=== PATIENT | male | born 1955 | race Caucasian/White ===

== ENCOUNTER → 2024-02-03 | Emergency (ER) | payer OTHER ==
[~2024-02-03] MED LIST: ACETAMINOPHEN 500 MG TAB ONE; KETOROLAC 30 MG/ML INJ ONE; methocarbamoL 500 MG TAB ONE
--- NOTE | 2024-02-03 08:35 | RAD REPORT ---
EXAM DESCRIPTION: RAD - Pelvis - 02/03/2024 8:27 am CLINICAL HISTORY: PAIN COMPARISON: No comparisons FINDINGS: Moderate osteoarthritis affects both hips, slightly greater on the right. No fracture, dis location or AVN pattern observed.
--- NOTE | 2024-02-03 08:41 | ER ---
Nurse's Notes [facility] Name: Edwin Linton Age: 69 yrs Sex: Male : 1955 Arrival Date: 02/03/2024 Time: 07:17 Bed 14 Private MD: Diagnosis: Buttock Pain Presentation: 02/02 07:20 Chief complaint: EMS states: patient is a transient from [place], is complaining of ko1 back pain which is causing him to not be able to walk, PD found him sitting in a ditch unable to get up so they called EMS. He had a "snake bite" to the right side of his back about 4 weeks ago and is having occasional pain from that also. He saw the snake in the grass and assumed that was what bit him. He also had a stroke in 2013 which caused a left sided deficit. Coronavirus screen: At this time, the client does not indicate any symptoms associated with coronavirus-19. Ebola Screen: No symptoms or risks identified at this time. Initial Sepsis Screen: Does the patient meet any 2 criteria? No. Patient's initial sepsis screen is negative. Does the patient have a suspected source of infection? No. Patient's initial sepsis screen is negative. Risk Assessment: Do you want to hurt yourself or someone else? Patient reports no desire to harm self or others. Onset of symptoms is unknown. Care prior to arrival: IV initiated. 18 GA, in the left antecubital area, Glucose check: 93. 07:20 Method Of Arrival: EMS: [facility] ko1 07:20 Acuity: ROLAND 3 ko1 07:30 Note homeless. ko1 Triage Assessment: 07:30 General: Appears in no apparent distress. uncomfortable, obese, unkempt, Behavior is ko1 calm, cooperative, appropriate for age. Pain: Complains of pain in right low back. Historical: - Allergies: 07:30 No Known Allergies; ko1 - Home Meds: 07:30 Unable to obtain [Active]; ko1 - PMHx: 07:30 Cerebrovascular accident; ko1 - Immunization history:: Adult Immunizations unknown. - Social history:: Smoking status: Patient/guardian denies using tobacco, but has a distant history of tobacco abuse. Screenin:30 [facility] ED Fall Risk Assessment (Adult) History of falling in the last 3 months, ko1 including since admission Yes- single mechanical fall (1 pt) Confusion or Disorientation No (0 pts) Intoxicated or Sedated No (0 pts) Impaired Gait Yes (1 pt) Mobility Assist Device Used Yes (1 pt) Altered Elimination No (0 pt) Score/Fall Risk Level 3 or more points = High Risk Oriented to surroundings, Maintained a safe environment, Educated pt \\T\\ family on fall prevention, incl call for assistance when getting out of bed, Assessed \\T\\ reinforced patient's understanding of fall precautions, Provided non-skid footwear, Hourly rounding (assess needs \\T\\ fall precautionary measures) done, Used ambulatory aids as needed (educated on \\T\\ assisted with), Used gait belt as appropriate Implemented a Fall Risk Plan of Care, Apply high fall risk patient identification: yellow non skid footwear/ fall signage, Remained w/in arm's length of patient and in sight while toileting, Offered frequent toileting (1:1 observation), Remained with patient while ambulating, Utilized family, sitter, or virtual sander machine as indicated. Abuse screen: Denies threats or abuse. Denies injuries from another. Nutritional screening: No deficits noted. Tuberculosis screening: No symptoms or risk factors identified. Assessment: 07:30 Neuro: CVA in 2013 leaving left sided weakness. Cardiovascular: No deficits noted. ko1 Respiratory: No deficits noted. GI: No deficits noted. : No deficits noted. EENT: No deficits noted. Derm: Reports pain that is 4 out of 10 on a pain scale. Musculoskeletal: Range of motion: limited in left side. 09:34 Reassessment: discharge delayed due to patient not cooperating with getting dressed and ko1 into the wheelchair. Vital Signs: 07:20 BP 110 / 62; Pulse 78; Resp 15; Temp 98; Pulse Ox 95% ; ko1 07:30 BP 118 / 74; Pulse 70; Resp 14; Pulse Ox 95% ; ko1 08:30 BP 124 / 70; Pulse 75; Resp 14; Pulse Ox 98% ; ko1 09:30 BP 112 / 68; Pulse 68; Resp 15; Pulse Ox 95% on R/A; ko1 ED Course: 07:20 Patient arrived in ED. ko1 07:22 Robert Yost MD is Attending Physician. ec2 07:26 Patient has correct armband on for positive identification. Placed in gown. Bed in low [id number] position. Call light in reach. Warm blanket given. Pillow given. Client placed on continuous cardiac and pulse oximetry monitoring. NIBP monitoring applied. Pulse ox on. 07:30 Triage completed. ko1 07:30 Arm band placed on right wrist. Patient placed in an exam room, on a stretcher, on ko1 school lunch monitor, on pulse oximetry, Patient notified of wait time. 07:30 Provided Education on: na. ko1 07:30 No provider procedures requiring assistance completed. Maintain EMS IV. Dressing ko1 intact. Good blood return noted. Site clean \\T\\ dry. Gauge \\T\\ site: 18g left AC. 07:34 Geovanna Martins, RN is Primary Nurse. ko1 08:28 Pelvis XRAY In Process Unspecified. EDMS 09:00 IV discontinued, intact, bleeding controlled, No redness/swelling at site. Pressure ko1 dressing applied. Administered Medications: 07:49 Drug: Ketorolac IVP 15 mg IVP once Route: IVP; Site: left antecubital; ko1 09:34 Follow up: Response: No adverse reaction ko1 07:49 Drug: Acetaminophen PO 1000 mg PO once Route: PO; ko1 09:34 Follow up: Response: No adverse reaction ko1 07:49 Drug: Methocarbamol PO 500 mg PO once Route: PO; ko1 09:34 Follow up: Response: No adverse reaction ko1 Medication: 07:30 VIS not applicable for this client. ko1 Outcome: 08:41 Discharge ordered by . ec2 09:32 Discharged to home via wheelchair, ko1 09:32 Condition: stable 09:32 Discharge instructions given to patient, Instructed on discharge instructions, follow up and referral plans. Demonstrated understanding of instructions, follow-up care, medications, Prescriptions given X 1, 09:35 Patient left the ED. ko1 Signatures: Dispatcher [employer] Geovanna Velasquez, SIXTO RN ko1 Robert Yost MD MD ec2 Gonzalez, Jordan [id number]
--- NOTE | 2024-02-03 08:41 | EDPHYS ---
Physician Documentation [facility] Name: Edwin Linton Age: 69 yrs Sex: Male : 1955 Arrival Date: 02/03/2024 Time: 07:17 Bed 14 Private MD: ED Physician Robert Yost HPI: 02/02 07:31 This 69 yrs old Male presents to ER via EMS with complaints of R buttock pain.ec2 07:31 Patient arrives today for evaluation of right buttock and back pain. Patient reports ec2 that he been having pain for approximately 1 month. Denies any new falls or injuries or trauma. States that he has pain with ambulation. States that the pain sometimes goes into the right leg. States that he is concerned about a snake bite that occurred 4 weeks ago, states he never saw puncture wound, never noticed any redness or skin changes. Denies any other concerns.. Historical: - Allergies: 07:30 No Known Allergies; ko1 - Home Meds: 07:30 Unable to obtain [Active]; ko1 - PMHx: 07:30 Cerebrovascular accident; ko1 - Immunization history:: Adult Immunizations unknown. - Social history:: Smoking status: Patient/guardian denies using tobacco, but has a distant history of tobacco abuse. ROS: 07:31 Constitutional: as per hpi ec2 Exam: 07:31 Constitutional: GEN: NAD Head: atraumatic Eyes: EOMI Ears: External ears are ec2 normal. CV: regular rate LUNGS: no respiratory distress ABD: non-distended SKIN: no evidence of rashes MSK: no evidence of trauma, right buttock TTP, no deformity, no crepitus, no erythema, no warmth, no discharge, no abscess, no fluctuance appreciated. NEURO: moves all extremities equally Vital Signs: 07:20 BP 110 / 62; Pulse 78; Resp 15; Temp 98; Pulse Ox 95% ; ko1 07:30 BP 118 / 74; Pulse 70; Resp 14; Pulse Ox 95% ; ko1 08:30 BP 124 / 70; Pulse 75; Resp 14; Pulse Ox 98% ; ko1 09:30 BP 112 / 68; Pulse 68; Resp 15; Pulse Ox 95% on R/A; ko1 MDM: 07:23 Patient medically screened. ec2 07:31 Data reviewed: vital signs. ED course: Patient arrives today for evaluation of right ec2 buttock pain. Admission remarkable for well-appearing nontoxic in which was otherwise in no acute distress with reproducible right buttock TTP with good range of motion of the bilateral lower extremities. Will obtain a pelvis x-ray, give patient Toradol as well as Robaxin for pain medications. Suspect sciatica versus MSK pain, doubt cellulitis, doubt abscess, doubt deep space infection given general well appearance, lack of focal infectious appearance.. 08:40 ED course: Pelvis x-ray shows no acute bony pathology. Ultimately suspect muscle ec2 skeletal pain causing patient symptoms, doubt spinal cord pathology, doubt infectious process given appearance of the skin. Will discharge home with prescription with Robaxin. Return precautions given.. 02/02 07:31 Order name: Pelvis XRAY; Complete Time: 08:40 ec2 Administered Medications: 07:49 Drug: Ketorolac IVP 15 mg IVP once Route: IVP; Site: left antecubital; ko1 09:34 Follow up: Response: No adverse reaction ko1 07:49 Drug: Acetaminophen PO 1000 mg PO once Route: PO; ko1 09:34 Follow up: Response: No adverse reaction ko1 07:49 Drug: Methocarbamol PO 500 mg PO once Route: PO; ko1 09:34 Follow up: Response: No adverse reaction ko1 Disposition Summary: 02/03/24 08:41 Discharge Ordered Notes: Location: Home ec2 Condition: Stable ec2 Diagnosis - Buttock Pain ec2 Followup: ec2 - With: Private Physician - When: - Reason: Re-evaluation by your physician Discharge Instructions: - Discharge Summary Sheet ec2 - Chronic Back Pain ec2 Forms: - Medication Reconciliation Form ec2 - Thank You Letter ec2 - Antibiotic Education ec2 - Prescription Opioid Use ec2 - Patient Portal Instructions ec2 - Leadership Thank You Letter ec2 Prescriptions: - methocarbamol 500 mg Oral tablet - take 2 tablets ORAL route 4 times per day; 30 tablet; Refills: 0, Product ec2 Selection Permitted Signatures: Dispatcher [employer] Geovanna Velasquez RN RN ko1 Robert Yost MD MD ec2 Corrections: (The following items were deleted from the chart) 09:09 09:08 Wound Repair of 5cm ( 2.0in ) subcutaneous laceration to face. Distal ec2 neuro/vascular/tendon intact. Anesthesia: Topical anesthetic administered with 1% lidocaine. Wound prep: Moderate cleansing. Skin closed with 5-0 absorbale using simple sutures and sterile technique. Dressed with non-adherent dressing. Patient tolerated well. ec2
[2024-02-03 09:59] VITALS: BP 112/68; TEMP 98; O2SAT 95
== END ==
LOC: ER 07:17
DX: M79.18 Myalgia, other site (principal); M54.50 Low back pain, unspecified; Z86.73 Personal history of transient ischemic attack (TIA), and cerebral infarction without residual deficits
CPT/HCPCS: 72170

== ENCOUNTER 2024-02-19 18:43 | Inpatient (IN) | payer OTHER ==
--- OUTSIDE RECORDS SUMMARY | 2024-02-19 18:51 | XMS REPORT | Continuity of Care Document ---
Author Name Unknown Address [address] [facility] [address] [place] [id number] [facility] thconnect Address [address] [facility] 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 Name Role Phone RAKESH SHORE Primary Care Physician Unavailab DAVID Velásquez Attending Clinician Unavailable David White DO Attending Clinician [phone] TARA IRELAND Attending Clinician Unavailable Tara Ireland MD Attending Clinician [phone] DESTINY MULLER Attending Clinician Unavailable ZO GREEN Attending Clinician Unavailab Zo Rizzo DO Attending Clinician + [phone] SILAS GREENE Attending Clinician Unavailable SILAS GREENE Attending Clinician Unavailable JACKIE DIAZ Attending Clinician Unavailab Jackie Moore DO Attending Clinician [phone] Lorene Stein Attending Clinician [phone] Tl Hayes MD Attending Clinician [phone] TL HAYES Attending Clinician Unavailable Georgina Garcia RN Attending Clinician Unava ilable Doctor Unassigned, [place] Attending Clinician U navailable Provider, [facility] Attending Clinician Un available Lesli Kasper Attending Clinician [phone] Pob, 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 Attending Clinician UnavailNIMISHA Haywood Attending Clinician Unavail able KUNAL JOEL Attending Clinician Unavailable Darrell Maxwell MD Attending Clinician [phone] Yossi Siddiqi Attending Clinician [phone] YOSSI PRASAD Attending Clinician Unavailable Idalia ASHLEYDebra Attending Clinician +[phone] IDALIA DEBRA Attending Clinician Unavailable DARRELL BECKFORD Attending Clinician Darrell Haley MD Attending Clinician + [phone] Chelle Fernandez MD Attending Clinician [phone] CHELLE FERNANDEZ Attending Clinician Unavailable Markus OSPINA, Natividad iXong Attending Clinician Glo Way MD Attending Clinician [phone] GLO FINN Attending Clinician Unavailable Lokesh OSPINA, Kendall Gaines Attending Clinician [phone] JOCELYN GREER Attending Clinician UnavailDARRELL Khalil III Attending Clinician UnavailMARIAMA Castro Attending Clinician UnavailTARA Luther Admitting Clinician Unavailable DESTINY MULLER Admitting Clinician Unavailable ZO GREEN Admitting Clinician Unavailab CHELLE Montenegro Admitting Clinician Unavailable TL HAYES Admitting Clinician Unavailable Glo Finn MD Admitting Clinician [phone] GLO FINN Admitting Clinician Unavailable Payers Payer Name Policy Type Policy Number Effective Date Expirati on Date Source [employer] MEDICARE OUT OF NETWORK [id number] 2023 00:00:00 [facility] [employer] (MEDICARE REPLACEMENT HMO) [id number] 2022 00:00:00 MEDICARE PART A \\T\\ B [id number] 2018 00:00:00 2019 00:00:00 COMMERCIAL NON-CONTRACT GENERIC [id number] 2018 00:00:00 2019 00:00:00 Problems Condition Name Condition Details Condition Category Status Onset Date Resolution Date Last Treatment Date Treating Clinician Comments Source Omental infarction Omental infarction Disease Active 3-09 00:00: 00 [facility] Psoriasifo rm dermatitis Psoriasifo rm dermatitis Disease Active 8-18 00:00: 00 [facility] Need for 23-polyval ent pneumococc al polysaccha ride vaccine Need for 23-polyval ent pneumococc al polysaccha ride vaccine Disease Active 3-28 00:00: 00 [facility] Cellulitis of foot, left Cellulitis of foot, left Disease Active 5-21 00:00: 00 [facility] Edema of both legs Edema of both legs Disease Active 02-27 00:00: 00 [facility] Erectile dysfunctio n, unspecifie d erectile dysfunctio n type Erectile dysfunctio n, unspecifie d erectile dysfunctio n type Disease Active 02-27 00:00: 00 [facility] Essential hypertensi on Essential hypertensi on Disease Active 02-27 00:00: 00 [facility] Edema of both legs Edema of both legs Disease Active 02-27 00:00: 00 [facility] Erectile dysfunctio n, unspecifie d erectile dysfunctio n type Erectile dysfunctio n, unspecifie d erectile dysfunctio n type Disease Active 02-27 00:00: 00 [facility] Acute midline low back pain without sciatica Acute midline low back pain without sciatica Disease Active 01-18 00:00: 00 [facility] Medicare annual wellness visit, subsequent Medicare annual wellness visit, subsequent Disease Active 12-01 00:00: 00 Overview: Formattin g of this note might be different from the original. Added automatic ally from request for surgery [id number] [facility] Need for hepatitis C screening test Need for hepatitis C screening test Disease Active 2018-11 00:00: 00 [facility] Homelessne ss Homelessne ss Disease Active 2018-11 00:00: 00 [facility] Lesion of matthew Lesion of matthew Disease Active 2018-11 00:00: 00 [facility] Dyslipidem ia Dyslipidem ia Disease Active 2018-11 00:00: 00 [facility] Encounter for screening colonoscop y for non-high-r isk patient Encounter for screening colonoscop y for non-high-r isk patient Disease Active 2018-11 00:00: 00 [facility] 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 Disease Active 2018-11 00:00: 00 [facility] 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) Disease Active 2018-11 00:00: 00 [facility] 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) Disease Active 2018-11 00:00: 00 [facility] Erectile dysfunctio n due to type 2 diabetes mellitus Erectile dysfunctio n due to type 2 diabetes mellitus Disease Active 2018-11 00:00: 00 [facility] Upper respirator y tract infection, unspecifie d type Upper respirator y tract infection, unspecifie d type Disease Active 2018-11 00:00: 00 [facility] Obesity (BMI 30-39.9) Obesity (BMI 30-39.9) Disease Active 03-17 00:00: 00 [facility] Allergies, Adverse Reactions, Alerts Allergy Name Allergy Type Status Severity Reaction(s) Onset Date Inactive Date Treating Clinician Comments Source NO KNOWN ALLERGIE S Drug Class Active [facility] Social History Social Habit Start Date Stop Date Quantity Comments [facility] 2024-02-06 00:00:00 2024-02-06 00:00:00 Current non-drinker of alcohol (finding) [facility] Exposure to SARS-CoV-2 (event) 2021-06-10 00:00:00 2021-07-10 10:13:00 Not sure [facility] History of Social function 2021-07-10 00:00:00 2021-07-10 00:00:00 [facility] Tobacco use and exposure 2019-01-14 00:00:00 2019-01-14 00:00:00 Smokeless tobacco non-user [facility] Sex Assigned At 1955 00:00:00 1955 00:00:00 [facility] Smoking Status Start Date Stop Date Source Never smoked tobacco [facility] Medications Ordered Medication Name Filled Medication Name Start Date Stop Date Current Medication? Ordering Clinician Indication Dosage Frequency Signature (SIG) Comments Components Source meclizine (TRAVEL-EAS E (MECLIZINE) ) tablet 25 mg 02-09 17:15: 00 02-09 17:17 :00 No 25mg 25 mg, Oral, ONCE, 1 dose, On Thu02/10/24 at 1215, RICHARD [facility] ketorolac (TORADOL) injection 15 mg 02-08 20:00: 00 02-08 20:42 :00 No 15mg 15 mg, Intramuscu lar, ONCE, 1 dose, On Thu02/09/24 at 1500, Routine [facility] methocarbam oL (ROBAXIN) tablet 1,000 mg 02-08 19:15: 00 02-08 20:43 :00 No 1000mg 1,000 mg, Oral, ONCE, 1 dose, On Thu02/09/24 at 1415, RICHRAD [facility] cyclobenzap rine (FLEXERIL) tablet 10 mg 02-05 15:30: 00 02-05 15:14 :00 No 10mg 10 mg, Oral, ONCE, 1 dose, On Thu02/06/24 at 1030, Routine [facility] cyclobenzap rine 10 mg tablet 02-05 00:00: 00 02-11 04:59 :00 Yes [id number] 10mg Take 1 tablet by mouth in the morning and 1 tablet at noon and 1 tablet in the evening. Do all this for 15 doses. [facility] cyclobenzap rine 10 mg tablet 02-05 00:00: 00 02-11 04:59 :00 Yes [id number] 10mg Take 1 tablet by mouth in the morning and 1 tablet at noon and 1 tablet in the evening. Do all this for 15 doses. [facility] cyclobenzap rine 10 mg tablet 3-16 00:00: 00 02-11 04:59 :00 Yes [id number] 10mg Take 1 tablet by mouth in the morning and 1 tablet at noon and 1 tablet in the evening. Do all this for 15 doses. [facility] dicyclomine (BENTYL) tablet 20 mg 01-29 20:45: 00 01-29 20:51 :00 No 20mg 20 mg, Oral, ONCE, 1 dose, On 01/30/24 at 1445, RICHARD [facility] methocarbam oL (ROBAXIN) tablet 1,000 mg 01-29 19:15: 00 01-29 19:06 :00 No 1000mg 1,000 mg, Oral, ONCE, 1 dose, On 01/30/24 at 1315, RICHARD [facility] ketorolac (TORADOL) tablet 10 mg 01-29 17:45: 00 01-29 17:01 :00 No 10mg 10 mg, Oral, ONCE, 1 dose, On 01/30/24 at 1145, Routine [facility] tiZANidine 4 mg tablet 01-29 00:00: 00 Yes [id number] 4mg Take 1 tablet by mouth every 6 (six) hours as needed for Pain (scale 7-10). [facility] dicyclomine 20 mg tablet 01-29 00:00: 00 Yes [id number] 20mg Take 1 tablet by mouth 4 (four) times daily as needed for Abdominal pain. [facility] tiZANidine 4 mg tablet 01-29 00:00: 00 Yes [id number] 4mg Take 1 tablet by mouth every 6 (six) hours as needed for Pain (scale 7-10). [facility] dicyclomine 20 mg tablet 01-29 00:00: 00 Yes [id number] 20mg Take 1 tablet by mouth 4 (four) times daily as needed for Abdominal pain. [facility] tiZANidine 4 mg tablet 01-29 00:00: 00 Yes [id number] 4mg Take 1 tablet by mouth every 6 (six) hours as needed for Pain (scale 7-10). [facility] dicyclomine 20 mg tablet 01-29 00:00: 00 Yes [id number] 20mg Take 1 tablet by mouth 4 (four) times daily as needed for Abdominal pain. [facility] tiZANidine 4 mg tablet 01-29 00:00: 00 Yes [id number] 4mg Take 1 tablet by mouth every 6 (six) hours as needed for Pain (scale 7-10). [facility] dicyclomine 20 mg tablet 01-29 00:00: 00 Yes [id number] 20mg Take 1 tablet by mouth 4 (four) times daily as needed for Abdominal pain. [facility] ibuprofen (IBU) tablet 600 mg 01-15 03:30: 00 01-15 03:42 :00 No 600mg 600 mg, Oral, ONCE, 1 dose, On [facility] 01/14/24 at 2130, RICHARD [facility] methocarbam oL (ROBAXIN) tablet 750 mg 01-15 03:26: 00 01-15 03:42 :00 No 750mg 750 mg, Oral, ONCE NOW, 1 dose, On Sheree 01/14/24 at 2130, RICHARD [facility] LISINOPRIL- HYDROCHLORO THIAZIDE 10-12.5 mg per tablet 0 02-17 00:00: 00 Yes [id number] Take 1 tablet by mouth once daily [facility] LISINOPRIL- HYDROCHLORO THIAZIDE 10-12.5 mg per tablet 0 02-17 00:00: 00 Yes [id number] Take 1 tablet by mouth once daily [facility] LISINOPRIL- HYDROCHLORO THIAZIDE 10-12.5 mg per tablet 0 02-17 00:00: 00 Yes [id number] Take 1 tablet by mouth once daily [facility] LISINOPRIL- HYDROCHLORO THIAZIDE 10-12.5 mg per tablet 0 02-17 00:00: 00 Yes [id number] Take 1 tablet by mouth once daily [facility] LISINOPRIL- HYDROCHLORO THIAZIDE 10-12.5 mg per tablet 02-17 00:00: 00 Yes [id number] Take 1 tablet by mouth once daily [facility] LISINOPRIL- HYDROCHLORO THIAZIDE 10-12.5 mg per tablet 02-17 00:00: 00 Yes [id number] Take 1 tablet by mouth once daily [facility] LISINOPRIL- HYDROCHLORO THIAZIDE 10-12.5 mg per tablet 02-17 00:00: 00 Yes [id number] Take 1 tablet by mouth once daily [facility] LISINOPRIL- HYDROCHLORO THIAZIDE 10-12.5 mg per tablet 02-17 00:00: 00 Yes [id number] Take 1 tablet by mouth once daily [facility] blood sugar diagnostic (TRUE METRIX GLUCOSE TEST STRIP) strip 2020-11 00:00: 00 Yes [id number] Monitor Blood Glucose daily [facility] simvastatin 40 mg tablet 2020-11 00:00: 00 Yes [id number] 40mg Take 1 tablet by mouth at bedtime. [facility] furosemide 20 mg tablet 2020-11 00:00: 00 Yes [id number] 20mg Take 1 tablet by mouth daily. [facility] lancets (TRUEPLUS LANCETS) 33 gauge Misc 2020-11 00:00: 00 Yes [id number] Monitor Blood Glucose daily [facility] Alcohol Swabs (BD SINGLE USE SWABS REGULAR) PadM 2020-11 00:00: 00 Yes [id number] Apply to area(s) daily. Monitor Blood Glucose daily [facility] blood sugar diagnostic (TRUE METRIX GLUCOSE TEST STRIP) strip 2020-11 00:00: 00 Yes [id number] Monitor Blood Glucose daily [facility] simvastatin 40 mg tablet 2020-11 00:00: 00 Yes [id number] 40mg Take 1 tablet by mouth at bedtime. [facility] furosemide 20 mg tablet 2020-11 00:00: 00 Yes [id number] 20mg Take 1 tablet by mouth daily. [facility] lancets (TRUEPLUS LANCETS) 33 gauge [facility] 2020-11 00:00: 00 Yes [id number] Monitor Blood Glucose daily [facility] Alcohol Swabs (BD SINGLE USE SWABS REGULAR) Pad 2020-11 00:00: 00 Yes [id number] Apply to area(s) daily. Monitor Blood Glucose daily [facility] blood sugar diagnostic (TRUE METRIX GLUCOSE TEST STRIP) strip 2020-11 00:00: 00 Yes [id number] Monitor Blood Glucose daily [facility] simvastatin 40 mg tablet 2020-11 00:00: 00 Yes [id number] 40mg Take 1 tablet by mouth at bedtime. [facility] furosemide 20 mg tablet 2020-11 00:00: 00 Yes [id number] 20mg Take 1 tablet by mouth daily. [facility] lancets (TRUEPLUS LANCETS) 33 gauge [facility] 2020-11 00:00: 00 Yes [id number] Monitor Blood Glucose daily [facility] Alcohol Swabs (BD SINGLE USE SWABS REGULAR) Pad 2020-11 00:00: 00 Yes [id number] Apply to area(s) daily. Monitor Blood Glucose daily [facility] blood sugar diagnostic (TRUE METRIX GLUCOSE TEST STRIP) strip 2020-11 00:00: 00 Yes [id number] Monitor Blood Glucose daily [facility] simvastatin 40 mg tablet 2020-11 00:00: 00 Yes [id number] 40mg Take 1 tablet by mouth at bedtime. [facility] furosemide 20 mg tablet 2020-11 00:00: 00 Yes [id number] 20mg Take 1 tablet by mouth daily. [facility] lancets (TRUEPLUS LANCETS) 33 gauge [facility] 2020-11 00:00: 00 Yes [id number] Monitor Blood Glucose daily [facility] Alcohol Swabs (BD SINGLE USE SWABS REGULAR) Pad 2020-11 00:00: 00 Yes [id number] Apply to area(s) daily. Monitor Blood Glucose daily [facility] blood sugar diagnostic (TRUE METRIX GLUCOSE TEST STRIP) strip 2020-11 00:00: 00 Yes [id number] Monitor Blood Glucose daily [facility] simvastatin 40 mg tablet 2020-11 00:00: 00 Yes [id number] 40mg Take 1 tablet by mouth at bedtime. [facility] furosemide 20 mg tablet 2020-11 00:00: 00 Yes [id number] 20mg Take 1 tablet by mouth daily. [facility] lancets (TRUEPLUS LANCETS) 33 gauge Mis 2020-11 00:00: 00 Yes [id number] Monitor Blood Glucose daily [facility] Alcohol Swabs (BD SINGLE USE SWABS REGULAR) Pad 2020-11 00:00: 00 Yes [id number] Apply to area(s) daily. Monitor Blood Glucose daily [facility] blood sugar diagnostic (TRUE METRIX GLUCOSE TEST STRIP) strip 2020-11 00:00: 00 Yes [id number] Monitor Blood Glucose daily [facility] simvastatin 40 mg tablet 2020-11 00:00: 00 Yes [id number] 40mg Take 1 tablet by mouth at bedtime. [facility] furosemide 20 mg tablet 2020-11 00:00: 00 Yes [id number] 20mg Take 1 tablet by mouth daily. [facility] lancets (TRUEPLUS LANCETS) 33 gauge [facility] 2020-11 00:00: 00 Yes [id number] Monitor Blood Glucose daily [facility] Alcohol Swabs (BD SINGLE USE SWABS REGULAR) Pad 2020-11 00:00: 00 Yes [id number] Apply to area(s) daily. Monitor Blood Glucose daily [facility] blood sugar diagnostic (TRUE METRIX GLUCOSE TEST STRIP) strip 2020-11 00:00: 00 Yes [id number] Monitor Blood Glucose daily [facility] simvastatin 40 mg tablet 2020-11 00:00: 00 Yes [id number] 40mg Take 1 tablet by mouth at bedtime. [facility] furosemide 20 mg tablet 2020-11 00:00: 00 Yes [id number] 20mg Take 1 tablet by mouth daily. [facility] lancets (TRUEPLUS LANCETS) 33 gauge Mis 2020-11 00:00: 00 Yes [id number] Monitor Blood Glucose daily [facility] Alcohol Swabs (BD SINGLE USE SWABS REGULAR) Pad 2020-11 00:00: 00 Yes [id number] Apply to area(s) daily. Monitor Blood Glucose daily [facility] blood sugar diagnostic (TRUE METRIX GLUCOSE TEST STRIP) strip 2020-11 00:00: 00 Yes [id number] Monitor Blood Glucose daily [facility] simvastatin 40 mg tablet 2020-11 00:00: 00 Yes [id number] 40mg Take 1 tablet by mouth at bedtime. [facility] furosemide 20 mg tablet 2020-11 00:00: 00 Yes [id number] 20mg Take 1 tablet by mouth daily. [facility] lancets (TRUEPLUS LANCETS) 33 gauge [facility] 2020-11 00:00: 00 Yes [id number] Monitor Blood Glucose daily [facility] Alcohol Swabs (BD SINGLE USE SWABS REGULAR) Pad 2020-11 00:00: 00 Yes [id number] Apply to area(s) daily. Monitor Blood Glucose daily [facility] blood sugar diagnostic (TRUE METRIX GLUCOSE TEST STRIP) strip 2020-11 00:00: 00 Yes [id number] Monitor Blood Glucose daily [facility] simvastatin 40 mg tablet 2020-11 00:00: 00 Yes [id number] 40mg Take 1 tablet by mouth at bedtime. [facility] furosemide 20 mg tablet 2020-11 00:00: 00 Yes [id number] 20mg Take 1 tablet by mouth daily. [facility] lancets (TRUEPLUS LANCETS) 33 gauge Mis 2020-11 00:00: 00 Yes [id number] Monitor Blood Glucose daily [facility] Alcohol Swabs (BD SINGLE USE SWABS REGULAR) Pad 2020-11 00:00: 00 Yes [id number] Apply to area(s) daily. Monitor Blood Glucose daily [facility] SIMVASTATIN 40 mg tablet 2020-11 00:00: 00 Yes [id number] 40mg TAKE 1 TABLET BY MOUTH AT BEDTIME [facility] SIMVASTATIN 40 mg tablet 2020-11 00:00: 00 10-29 00:00 :00 No [id number] 40mg TAKE 1 TABLET BY MOUTH AT BEDTIME [facility] insulin NPH (HUMULIN N NPH U-100 INSULIN) 100 unit/mL injection 07-10 00:00: 00 Yes [id number] INJECT 35 UNITS SUBCUTANEO USLY EVERY MORNING AND EVENING. Office visit needed for further refills. [facility] metFORMIN 1,000 mg tablet 07-10 00:00: 00 Yes [id number] 1000mg Take 1 tablet by mouth 2 (two) times daily with meals. [facility] furosemide 20 mg tablet 07-10 00:00: 00 Yes [id number] 20mg Take 1 tablet by mouth every Thursday, and Thursday in the evening. [facility] lisinopriL- hydrochloro thiazide 10-12.5 mg per tablet 07-10 00:00: 00 Yes [id number] 1{tbl} Take 1 tablet by mouth daily. [facility] insulin NPH (HUMULIN N NPH U-100 INSULIN) 100 unit/mL injection 07-10 00:00: 00 Yes [id number] INJECT 35 UNITS SUBCUTANEO USLY EVERY MORNING AND EVENING. Office visit needed for further refills. [facility] metFORMIN 1,000 mg tablet 07-10 00:00: 00 Yes [id number] 1000mg Take 1 tablet by mouth 2 (two) times daily with meals. [facility] lisinopriL- hydrochloro thiazide 10-12.5 mg per tablet 07-10 00:00: 00 Yes [id number] 1{tbl} Take 1 tablet by mouth daily. [facility] insulin NPH (HUMULIN N NPH U-100 INSULIN) 100 unit/mL injection 07-10 00:00: 00 Yes [id number] INJECT 35 UNITS SUBCUTANEO USLY EVERY MORNING AND EVENING. Office visit needed for further refills. [facility] metFORMIN 1,000 mg tablet 07-10 00:00: 00 Yes [id number] 1000mg Take 1 tablet by mouth 2 (two) times daily with meals. [facility] insulin NPH (HUMULIN N NPH U-100 INSULIN) 100 unit/mL injection 07-10 00:00: 00 Yes [id number] INJECT 35 UNITS SUBCUTANEO USLY EVERY MORNING AND EVENING. Office visit needed for further refills. [facility] metFORMIN 1,000 mg tablet 07-10 00:00: 00 Yes [id number] 1000mg Take 1 tablet by mouth 2 (two) times daily with meals. [facility] insulin NPH (HUMULIN N NPH U-100 INSULIN) 100 unit/mL injection 07-10 00:00: 00 Yes [id number] INJECT 35 UNITS SUBCUTANEO USLY EVERY MORNING AND EVENING. Office visit needed for further refills. [facility] metFORMIN 1,000 mg tablet 07-10 00:00: 00 Yes [id number] 1000mg Take 1 tablet by mouth 2 (two) times daily with meals. [facility] insulin NPH (HUMULIN N NPH U-100 INSULIN) 100 unit/mL injection 07-10 00:00: 00 Yes [id number] INJECT 35 UNITS SUBCUTANEO USLY EVERY MORNING AND EVENING. Office visit needed for further refills. [facility] metFORMIN 1,000 mg tablet 07-10 00:00: 00 Yes [id number] 1000mg Take 1 tablet by mouth 2 (two) times daily with meals. [facility] insulin NPH (HUMULIN N NPH U-100 INSULIN) 100 unit/mL injection 07-10 00:00: 00 Yes [id number] INJECT 35 UNITS SUBCUTANEO USLY EVERY MORNING AND EVENING. Office visit needed for further refills. [facility] metFORMIN 1,000 mg tablet 07-10 00:00: 00 Yes [id number] 1000mg Take 1 tablet by mouth 2 (two) times daily with meals. [facility] insulin NPH (HUMULIN N NPH U-100 INSULIN) 100 unit/mL injection 07-10 00:00: 00 Yes [id number] INJECT 35 UNITS SUBCUTANEO USLY EVERY MORNING AND EVENING. Office visit needed for further refills. [facility] metFORMIN 1,000 mg tablet 07-10 00:00: 00 Yes [id number] 1000mg Take 1 tablet by mouth 2 (two) times daily with meals. [facility] insulin NPH (HUMULIN N NPH U-100 INSULIN) 100 unit/mL injection 07-10 00:00: 00 Yes [id number] INJECT 35 UNITS SUBCUTANEO USLY EVERY MORNING AND EVENING. Office visit needed for further refills. [facility] metFORMIN 1,000 mg tablet 07-10 00:00: 00 Yes [id number] 1000mg Take 1 tablet by mouth 2 (two) times daily with meals. [facility] insulin NPH (HUMULIN N NPH U-100 INSULIN) 100 unit/mL injection 07-10 00:00: 00 Yes [id number] INJECT 35 UNITS SUBCUTANEO USLY EVERY MORNING AND EVENING. Office visit needed for further refills. [facility] metFORMIN 1,000 mg tablet 07-10 00:00: 00 Yes [id number] 1000mg Take 1 tablet by mouth 2 (two) times daily with meals. [facility] insulin NPH (HUMULIN N NPH U-100 INSULIN) 100 unit/mL injection 07-10 00:00: 00 Yes [id number] INJECT 35 UNITS SUBCUTANEO USLY EVERY MORNING AND EVENING. Office visit needed for further refills. [facility] metFORMIN 1,000 mg tablet 07-10 00:00: 00 Yes [id number] 1000mg Take 1 tablet by mouth 2 (two) times daily with meals. [facility] insulin NPH (HUMULIN N NPH U-100 INSULIN) 100 unit/mL injection 07-10 00:00: 00 Yes [id number] INJECT 35 UNITS SUBCUTANEO USLY EVERY MORNING AND EVENING. Office visit needed for further refills. [facility] metFORMIN 1,000 mg tablet 07-10 00:00: 00 Yes [id number] 1000mg Take 1 tablet by mouth 2 (two) times daily with meals. [facility] furosemide 20 mg tablet 07-10 00:00: 00 Yes [id number] 20mg Take 1 tablet by mouth every Thursday, and Thursday in the evening. [facility] simvastatin (ZOCOR) 40 mg tablet 07-10 00:00: 00 Yes [id number] 40mg Take 1 tablet by mouth at bedtime. [facility] lisinopriL- hydrochloro thiazide 10-12.5 mg per tablet 07-10 00:00: 00 Yes [id number] 1{tbl} Take 1 tablet by mouth daily. [facility] insulin NPH (HUMULIN N NPH U-100 INSULIN) 100 unit/mL injection 07-10 00:00: 00 Yes [id number] INJECT 35 UNITS SUBCUTANEO USLY EVERY MORNING AND EVENING. Office visit needed for further refills. [facility] metFORMIN 1,000 mg tablet 07-10 00:00: 00 Yes [id number] 1000mg Take 1 tablet by mouth 2 (two) times daily with meals. [facility] furosemide 20 mg tablet 07-10 00:00: 00 Yes [id number] 20mg Take 1 tablet by mouth every Thursday, and Thursday in the evening. [facility] simvastatin (ZOCOR) 40 mg tablet 07-10 00:00: 00 Yes [id number] 40mg Take 1 tablet by mouth at bedtime. [facility] lisinopriL- hydrochloro thiazide 10-12.5 mg per tablet 07-10 00:00: 00 Yes [id number] 1{tbl} Take 1 tablet by mouth daily. [facility] insulin NPH (HUMULIN N NPH U-100 INSULIN) 100 unit/mL injection 07-10 00:00: 00 Yes [id number] INJECT 35 UNITS SUBCUTANEO USLY EVERY MORNING AND EVENING. Office visit needed for further refills. [facility] metFORMIN 1,000 mg tablet 07-10 00:00: 00 Yes [id number] 1000mg Take 1 tablet by mouth 2 (two) times daily with meals. [facility] furosemide 20 mg tablet 07-10 00:00: 00 Yes [id number] 20mg Take 1 tablet by mouth every Thursday, and Thursday in the evening. [facility] simvastatin (ZOCOR) 40 mg tablet 07-10 00:00: 00 Yes [id number] 40mg Take 1 tablet by mouth at bedtime. [facility] lisinopriL- hydrochloro thiazide 10-12.5 mg per tablet 07-10 00:00: 00 Yes [id number] 1{tbl} Take 1 tablet by mouth daily. [facility] insulin NPH (HUMULIN N NPH U-100 INSULIN) 100 unit/mL injection 07-10 00:00: 00 Yes [id number] INJECT 35 UNITS SUBCUTANEO USLY EVERY MORNING AND EVENING. Office visit needed for further refills. [facility] metFORMIN 1,000 mg tablet 07-10 00:00: 00 Yes [id number] 1000mg Take 1 tablet by mouth 2 (two) times daily with meals. [facility] furosemide 20 mg tablet 07-10 00:00: 00 Yes [id number] 20mg Take 1 tablet by mouth every Thursday, and Thursday in the evening. [facility] simvastatin (ZOCOR) 40 mg tablet 07-10 00:00: 00 Yes [id number] 40mg Take 1 tablet by mouth at bedtime. [facility] lisinopriL- hydrochloro thiazide 10-12.5 mg per tablet 07-10 00:00: 00 Yes [id number] 1{tbl} Take 1 tablet by mouth daily. [facility] insulin NPH (HUMULIN N NPH U-100 INSULIN) 100 unit/mL injection 07-10 00:00: 00 Yes [id number] INJECT 35 UNITS SUBCUTANEO USLY EVERY MORNING AND EVENING. Office visit needed for further refills. [facility] metFORMIN 1,000 mg tablet 07-10 00:00: 00 Yes [id number] 1000mg Take 1 tablet by mouth 2 (two) times daily with meals. [facility] furosemide 20 mg tablet 07-10 00:00: 00 Yes [id number] 20mg Take 1 tablet by mouth every Thursday, and Thursday in the evening. [facility] simvastatin (ZOCOR) 40 mg tablet 07-10 00:00: 00 Yes [id number] 40mg Take 1 tablet by mouth at bedtime. [facility] lisinopriL- hydrochloro thiazide 10-12.5 mg per tablet 07-10 00:00: 00 Yes [id number] 1{tbl} Take 1 tablet by mouth daily. [facility] insulin NPH (HUMULIN N NPH U-100 INSULIN) 100 unit/mL injection 07-10 00:00: 00 Yes [id number] INJECT 35 UNITS SUBCUTANEO USLY EVERY MORNING AND EVENING. Office visit needed for further refills. [facility] metFORMIN 1,000 mg tablet 07-10 00:00: 00 Yes [id number] 1000mg Take 1 tablet by mouth 2 (two) times daily with meals. [facility] furosemide 20 mg tablet 07-10 00:00: 00 Yes [id number] 20mg Take 1 tablet by mouth every Thursday, and Thursday in the evening. [facility] simvastatin (ZOCOR) 40 mg tablet 07-10 00:00: 00 Yes [id number] 40mg Take 1 tablet by mouth at bedtime. [facility] lisinopriL- hydrochloro thiazide 10-12.5 mg per tablet 07-10 00:00: 00 Yes [id number] 1{tbl} Take 1 tablet by mouth daily. [facility] lisinopriL- hydrochloro thiazide 10-12.5 mg per tablet 07-10 00:00: 00 02-17 00:00 :00 No [id number] 1{tbl} Take 1 tablet by mouth daily. [facility] furosemide 20 mg tablet 07-10 00:00: 00 10-29 00:00 :00 No [id number] 20mg Take 1 tablet by mouth every Thursday, and Thursday in the evening. [facility] simvastatin (ZOCOR) 40 mg tablet 07-10 00:00: 00 10-04 00:00 :00 No [id number] 40mg Take 1 tablet by mouth at bedtime. [facility] insulin NPH (HUMULIN N NPH U-100 INSULIN) 100 unit/mL injection 06-19 00:00: 00 Yes [id number] INJECT 35 UNITS SUBCUTANEO USLY EVERY MORNING AND EVENING. Office visit needed for further refills. [facility] insulin NPH (HUMULIN N NPH U-100 INSULIN) 100 unit/mL injection 06-19 00:00: 00 Yes [id number] INJECT 35 UNITS SUBCUTANEO USLY EVERY MORNING AND EVENING. Office visit needed for further refills. [facility] insulin NPH (HUMULIN N NPH U-100 INSULIN) 100 unit/mL injection 06-19 00:00: 00 Yes [id number] INJECT 35 UNITS SUBCUTANEO USLY EVERY MORNING AND EVENING. Office visit needed for further refills. [facility] insulin NPH (HUMULIN N NPH U-100 INSULIN) 100 unit/mL injection 06-19 00:00: 00 07-10 00:00 :00 No [id number] INJECT 35 UNITS SUBCUTANEO USLY EVERY MORNING AND EVENING. Office visit needed for further refills. [facility] insulin NPH (HUMULIN N NPH U-100 INSULIN) 100 unit/mL injection 06-19 00:00: 00 07-10 00:00 :00 No [id number] INJECT 35 UNITS SUBCUTANEO USLY EVERY MORNING AND EVENING. Office visit needed for further refills. [facility] HUMULIN N NPH U-100 INSULIN 100 unit/mL injection 05-21 00:00: 00 Yes [id number] INJECT 35 UNITS SUBCUTANEO USLY IN THE MORNING AND IN THE EVENING [facility] HUMULIN N NPH U-100 INSULIN 100 unit/mL injection 05-21 00:00: 00 06-19 00:00 :00 No [id number] INJECT 35 UNITS SUBCUTANEO USLY IN THE MORNING AND IN THE EVENING [facility] furosemide 20 mg tablet 02-15 00:00: 00 Yes [id number] 20mg Take 1 tablet by mouth every Thursday, and Thursday in the evening. [facility] furosemide 20 mg tablet 02-15 00:00: 00 Yes [id number] 20mg Take 1 tablet by mouth every Thursday, and Thursday in the evening. [facility] furosemide 20 mg tablet 02-15 00:00: 00 Yes [id number] 20mg Take 1 tablet by mouth every Thursday, and Thursday in the evening. [facility] furosemide 20 mg tablet 02-15 00:00: 00 Yes [id number] 20mg Take 1 tablet by mouth every Thursday, and Thursday in the evening. [facility] furosemide 20 mg tablet 02-15 00:00: 00 Yes [id number] 20mg Take 1 tablet by mouth every Thursday, and Thursday in the evening. [facility] furosemide 20 mg tablet 02-15 00:00: 00 Yes [id number] 20mg Take 1 tablet by mouth every Thursday, and Thursday in the evening. [facility] furosemide 20 mg tablet 02-15 00:00: 00 Yes [id number] 20mg Take 1 tablet by mouth every Thursday, and Thursday in the evening. [facility] furosemide 20 mg tablet 02-15 00:00: 00 Yes [id number] 20mg Take 1 tablet by mouth every Thursday, and Thursday in the evening. [facility] furosemide 20 mg tablet 02-15 00:00: 00 Yes [id number] 20mg Take 1 tablet by mouth every Thursday, and Thursday in the evening. [facility] furosemide 20 mg tablet 02-15 00:00: 00 Yes [id number] 20mg Take 1 tablet by mouth every Thursday, and Thursday in the evening. [facility] furosemide 20 mg tablet 02-15 00:00: 00 07-10 00:00 :00 No [id number] 20mg Take 1 tablet by mouth every Thursday, and Thursday in the evening. [facility] furosemide 20 mg tablet 02-15 00:00: 00 07-10 00:00 :00 No [id number] 20mg Take 1 tablet by mouth every Thursday, and Thursday in the evening. [facility] sildenafiL 50 mg tablet 02-14 00:00: 00 Yes [id number] 50mg Take 1 tablet by mouth as needed (Erectile dysfunctio n). Take 50mg x 1, about 30 mins - 4 hours prior to sexual activity. [facility] sildenafiL 50 mg tablet 02-14 00:00: 00 Yes [id number] 50mg Take 1 tablet by mouth as needed (Erectile dysfunctio n). Take 50mg x 1, about 30 mins - 4 hours prior to sexual activity. [facility] sildenafiL 50 mg tablet 02-14 00:00: 00 Yes [id number] 50mg Take 1 tablet by mouth as needed (Erectile dysfunctio n). Take 50mg x 1, about 30 mins - 4 hours prior to sexual activity. [facility] sildenafiL 50 mg tablet 02-14 00:00: 00 Yes [id number] 50mg Take 1 tablet by mouth as needed (Erectile dysfunctio n). Take 50mg x 1, about 30 mins - 4 hours prior to sexual activity. [facility] sildenafiL 50 mg tablet 02-14 00:00: 00 Yes [id number] 50mg Take 1 tablet by mouth as needed (Erectile dysfunctio n). Take 50mg x 1, about 30 mins - 4 hours prior to sexual activity. [facility] sildenafiL 50 mg tablet 02-14 00:00: 00 Yes [id number] 50mg Take 1 tablet by mouth as needed (Erectile dysfunctio n). Take 50mg x 1, about 30 mins - 4 hours prior to sexual activity. [facility] sildenafiL 50 mg tablet 02-14 00:00: 00 Yes [id number] 50mg Take 1 tablet by mouth as needed (Erectile dysfunctio n). Take 50mg x 1, about 30 mins - 4 hours prior to sexual activity. [facility] sildenafiL 50 mg tablet 02-14 00:00: 00 Yes [id number] 50mg Take 1 tablet by mouth as needed (Erectile dysfunctio n). Take 50mg x 1, about 30 mins - 4 hours prior to sexual activity. [facility] sildenafiL 50 mg tablet 02-14 00:00: 00 Yes [id number] 50mg Take 1 tablet by mouth as needed (Erectile dysfunctio n). Take 50mg x 1, about 30 mins - 4 hours prior to sexual activity. [facility] sildenafiL 50 mg tablet 02-14 00:00: 00 Yes [id number] 50mg Take 1 tablet by mouth as needed (Erectile dysfunctio n). Take 50mg x 1, about 30 mins - 4 hours prior to sexual activity. [facility] sildenafiL 50 mg tablet 02-14 00:00: 00 Yes [id number] 50mg Take 1 tablet by mouth as needed (Erectile dysfunctio n). Take 50mg x 1, about 30 mins - 4 hours prior to sexual activity. [facility] sildenafiL 50 mg tablet 02-14 00:00: 00 Yes [id number] 50mg Take 1 tablet by mouth as needed (Erectile dysfunctio n). Take 50mg x 1, about 30 mins - 4 hours prior to sexual activity. [facility] insulin NPH (HUMULIN N NPH U-100 INSULIN) 100 unit/mL injection 02-14 00:00: 00 Yes [id number] INJECT 35 UNITS SUBCUTANEO USLY IN THE MORNING AND IN THE EVENING [facility] sildenafiL 50 mg tablet 02-14 00:00: 00 Yes [id number] 50mg Take 1 tablet by mouth as needed (Erectile dysfunctio n). Take 50mg x 1, about 30 mins - 4 hours prior to sexual activity. [facility] insulin NPH (HUMULIN N NPH U-100 INSULIN) 100 unit/mL injection 02-14 00:00: 00 Yes [id number] INJECT 35 UNITS SUBCUTANEO USLY IN THE MORNING AND IN THE EVENING [facility] sildenafiL 50 mg tablet 02-14 00:00: 00 Yes [id number] 50mg Take 1 tablet by mouth as needed (Erectile dysfunctio n). Take 50mg x 1, about 30 mins - 4 hours prior to sexual activity. [facility] insulin NPH (HUMULIN N NPH U-100 INSULIN) 100 unit/mL injection 02-14 00:00: 00 Yes [id number] INJECT 35 UNITS SUBCUTANEO USLY IN THE MORNING AND IN THE EVENING [facility] sildenafiL 50 mg tablet 02-14 00:00: 00 Yes [id number] 50mg Take 1 tablet by mouth as needed (Erectile dysfunctio n). Take 50mg x 1, about 30 mins - 4 hours prior to sexual activity. [facility] insulin NPH (HUMULIN N NPH U-100 INSULIN) 100 unit/mL injection 02-14 00:00: 00 Yes [id number] INJECT 35 UNITS SUBCUTANEO USLY IN THE MORNING AND IN THE EVENING [facility] sildenafiL 50 mg tablet 02-14 00:00: 00 Yes [id number] 50mg Take 1 tablet by mouth as needed (Erectile dysfunctio n). Take 50mg x 1, about 30 mins - 4 hours prior to sexual activity. [facility] insulin NPH (HUMULIN N NPH U-100 INSULIN) 100 unit/mL injection 02-14 00:00: 00 Yes [id number] INJECT 35 UNITS SUBCUTANEO USLY IN THE MORNING AND IN THE EVENING [facility] sildenafiL 50 mg tablet 02-14 00:00: 00 Yes [id number] 50mg Take 1 tablet by mouth as needed (Erectile dysfunctio n). Take 50mg x 1, about 30 mins - 4 hours prior to sexual activity. [facility] insulin NPH (HUMULIN N NPH U-100 INSULIN) 100 unit/mL injection 02-14 00:00: 00 Yes [id number] INJECT 35 UNITS SUBCUTANEO USLY IN THE MORNING AND IN THE EVENING [facility] sildenafiL 50 mg tablet 02-14 00:00: 00 Yes [id number] 50mg Take 1 tablet by mouth as needed (Erectile dysfunctio n). Take 50mg x 1, about 30 mins - 4 hours prior to sexual activity. [facility] sildenafiL 50 mg tablet 02-14 00:00: 00 Yes [id number] 50mg Take 1 tablet by mouth as needed (Erectile dysfunctio n). Take 50mg x 1, about 30 mins - 4 hours prior to sexual activity. [facility] sildenafiL 50 mg tablet 02-14 00:00: 00 Yes [id number] 50mg Take 1 tablet by mouth as needed (Erectile dysfunctio n). Take 50mg x 1, about 30 mins - 4 hours prior to sexual activity. [facility] sildenafiL 50 mg tablet 02-14 00:00: 00 Yes [id number] 50mg Take 1 tablet by mouth as needed (Erectile dysfunctio n). Take 50mg x 1, about 30 mins - 4 hours prior to sexual activity. [facility] sildenafiL 50 mg tablet 02-14 00:00: 00 Yes [id number] 50mg Take 1 tablet by mouth as needed (Erectile dysfunctio n). Take 50mg x 1, about 30 mins - 4 hours prior to sexual activity. [facility] sildenafiL 50 mg tablet 02-14 00:00: 00 Yes [id number] 50mg Take 1 tablet by mouth as needed (Erectile dysfunctio n). Take 50mg x 1, about 30 mins - 4 hours prior to sexual activity. [facility] sildenafiL 50 mg tablet 02-14 00:00: 00 Yes [id number] 50mg Take 1 tablet by mouth as needed (Erectile dysfunctio n). Take 50mg x 1, about 30 mins - 4 hours prior to sexual activity. [facility] sildenafiL 50 mg tablet 02-14 00:00: 00 Yes [id number] 50mg Take 1 tablet by mouth as needed (Erectile dysfunctio n). Take 50mg x 1, about 30 mins - 4 hours prior to sexual activity. [facility] sildenafiL 50 mg tablet 02-14 00:00: 00 Yes [id number] 50mg Take 1 tablet by mouth as needed (Erectile dysfunctio n). Take 50mg x 1, about 30 mins - 4 hours prior to sexual activity. [facility] sildenafiL 50 mg tablet 02-14 00:00: 00 Yes [id number] 50mg Take 1 tablet by mouth as needed (Erectile dysfunctio n). Take 50mg x 1, about 30 mins - 4 hours prior to sexual activity. [facility] insulin NPH (HUMULIN N NPH U-100 INSULIN) 100 unit/mL injection 02-14 00:00: 00 05-21 00:00 :00 No [id number] INJECT 35 UNITS SUBCUTANEO USLY IN THE MORNING AND IN THE EVENING [facility] HUMULIN N NPH U-100 INSULIN 100 unit/mL injection 02-10 00:00: 00 Yes [id number] INJECT 35 UNITS SUBCUTANEO USLY IN THE MORNING AND IN THE EVENING [facility] HUMULIN N NPH U-100 INSULIN 100 unit/mL injection 02-10 00:00: 00 02-14 00:00 :00 No [id number] INJECT 35 UNITS SUBCUTANEO USLY IN THE MORNING AND IN THE EVENING [facility] HUMULIN N NPH U-100 INSULIN 100 unit/mL injection 02-10 00:00: 00 02-14 00:00 :00 No [id number] INJECT 35 UNITS SUBCUTANEO USLY IN THE MORNING AND IN THE EVENING [facility] 02-06 00:00: 00 Yes [id number] E11.8: dispense Insulin Syringe 31 gauge brand covered by insurance. Monitor Blood Sugar at Home BID [facility] 02-06 00:00: 00 Yes [id number] E11.8: dispense Insulin Syringe 31 gauge brand covered by insurance. Monitor Blood Sugar at Home BID [facility] 02-06 00:00: 00 Yes [id number] E11.8: dispense Insulin Syringe 31 gauge brand covered by insurance. Monitor Blood Sugar at Home BID [facility] 02-06 00:00: 00 Yes [id number] E11.8: dispense Insulin Syringe 31 gauge brand covered by insurance. Monitor Blood Sugar at Home BID [facility] 02-06 00:00: 00 Yes [id number] E11.8: dispense Insulin Syringe 31 gauge brand covered by insurance. Monitor Blood Sugar at Home BID [facility] 02-06 00:00: 00 Yes [id number] E11.8: dispense Insulin Syringe 31 gauge brand covered by insurance. Monitor Blood Sugar at Home BID [facility] 02-06 00:00: 00 Yes [id number] E11.8: dispense Insulin Syringe 31 gauge brand covered by insurance. Monitor Blood Sugar at Home BID [facility] 02-06 00:00: 00 Yes [id number] E11.8: dispense Insulin Syringe 31 gauge brand covered by insurance. Monitor Blood Sugar at Home BID [facility] 02-06 00:00: 00 Yes [id number] E11.8: dispense Insulin Syringe 31 gauge brand covered by insurance. Monitor Blood Sugar at Home BID [facility] 3-17 00:00: 00 Yes [id number] E11.8: dispense Insulin Syringe 31 gauge brand covered by insurance. Monitor Blood Sugar at Home BID [facility] 3-17 00:00: 00 Yes [id number] E11.8: dispense Insulin Syringe 31 gauge brand covered by insurance. Monitor Blood Sugar at Home BID [facility] 3- 00:00: 00 Yes [id number] E11.8: dispense Insulin Syringe 31 gauge brand covered by insurance. Monitor Blood Sugar at Home BID [facility] 02-06 00:00: 00 Yes [id number] E11.8: dispense Insulin Syringe 31 gauge brand covered by insurance. Monitor Blood Sugar at Home BID [facility] 02-06 00:00: 00 Yes [id number] E11.8: dispense Insulin Syringe 31 gauge brand covered by insurance. Monitor Blood Sugar at Home BID [facility] 02-06 00:00: 00 Yes [id number] E11.8: dispense Insulin Syringe 31 gauge brand covered by insurance. Monitor Blood Sugar at Home BID [facility] 02-06 00:00: 00 Yes [id number] E11.8: dispense Insulin Syringe 31 gauge brand covered by insurance. Monitor Blood Sugar at Home BID [facility] 02-06 00:00: 00 Yes [id number] E11.8: dispense Insulin Syringe 31 gauge brand covered by insurance. Monitor Blood Sugar at Home BID [facility] 02-06 00:00: 00 Yes [id number] E11.8: dispense Insulin Syringe 31 gauge brand covered by insurance. Monitor Blood Sugar at Home BID [facility] 317 00:00: 00 Yes [id number] E11.8: dispense Insulin Syringe 31 gauge brand covered by insurance. Monitor Blood Sugar at Home BID [facility] 3-17 00:00: 00 Yes [id number] E11.8: dispense Insulin Syringe 31 gauge brand covered by insurance. Monitor Blood Sugar at Home BID [facility] 3-17 00:00: 00 Yes [id number] E11.8: dispense Insulin Syringe 31 gauge brand covered by insurance. Monitor Blood Sugar at Home BID [facility] 3-17 00:00: 00 Yes [id number] E11.8: dispense Insulin Syringe 31 gauge brand covered by insurance. Monitor Blood Sugar at Home BID [facility] 3-17 00:00: 00 Yes [id number] E11.8: dispense Insulin Syringe 31 gauge brand covered by insurance. Monitor Blood Sugar at Home BID [facility] 317 00:00: 00 Yes [id number] E11.8: dispense Insulin Syringe 31 gauge brand covered by insurance. Monitor Blood Sugar at Home BID [facility] 3-17 00:00: 00 Yes [id number] E11.8: dispense Insulin Syringe 31 gauge brand covered by insurance. Monitor Blood Sugar at Home BID [facility] 3-17 00:00: 00 Yes [id number] E11.8: dispense Insulin Syringe 31 gauge brand covered by insurance. Monitor Blood Sugar at Home BID [facility] 3-17 00:00: 00 Yes [id number] E11.8: dispense Insulin Syringe 31 gauge brand covered by insurance. Monitor Blood Sugar at Home BID [facility] 3-17 00:00: 00 Yes [id number] E11.8: dispense Insulin Syringe 31 gauge brand covered by insurance. [facility] 2020-0 3-17 00:00: 00 Yes [id number] E11.8: dispense Insulin Syringe 31 gauge brand covered by insurance. Monitor Blood Sugar at Home BID [facility] Insulin Syringe-Nee dle U-100 1 mL 27 gauge x 1/2" Syrg 2020-0 3-02 00:00: 00 Yes [id number] Use as directed [facility] Insulin Syringe-Nee dle U-100 1 mL 27 gauge x 1/2" Syrg 2020-0 3-02 00:00: 00 Yes [id number] Use as directed [facility] Insulin Syringe-Nee dle U-100 1 mL 27 gauge x 1/2" Syrg 2020-0 3-02 00:00: 00 Yes [id number] Use as directed [facility] Insulin Syringe-Nee dle U-100 1 mL 27 gauge x 1/2" Syrg 2020-0 3-02 00:00: 00 Yes [id number] Use as directed [facility] Insulin Syringe-Nee dle U-100 1 mL 27 gauge x 1/2" Syrg 2020-0 3-02 00:00: 00 Yes [id number] Use as directed [facility] Insulin Syringe-Nee dle U-100 1 mL 27 gauge x 1/2" Syrg 2020-0 3-02 00:00: 00 Yes [id number] Use as directed [facility] Insulin Syringe-Nee dle U-100 1 mL 27 gauge x 1/2" Syrg 2020-0 3-02 00:00: 00 Yes [id number] Use as directed [facility] Insulin Syringe-Nee dle U-100 1 mL 27 gauge x 1/2" Syrg 1-0 3-02 00:00: 00 Yes [id number] Use as directed [facility] Insulin Syringe-Nee dle U-100 1 mL 27 gauge x 1/2" Syrg 1-0 3-02 00:00: 00 Yes [id number] Use as directed [facility] Insulin Syringe-Nee dle U-100 1 mL 27 gauge x 1/2" Syrg 2020-0 3-02 00:00: 00 Yes [id number] Use as directed [facility] Insulin Syringe-Nee dle U-100 1 mL 27 gauge x 1/2" Syrg 2020-0 3-02 00:00: 00 Yes [id number] Use as directed [facility] Insulin Syringe-Nee dle U-100 1 mL 27 gauge x 1/2" Syrg 2020-0 3-02 00:00: 00 Yes [id number] Use as directed [facility] Insulin Syringe-Nee dle U-100 1 mL 27 gauge x 1/2" Syrg 2020-0 3-02 00:00: 00 Yes [id number] Use as directed [facility] Insulin Syringe-Nee dle U-100 1 mL 27 gauge x 1/2" Syrg 0 3-02 00:00: 00 Yes [id number] Use as directed [facility] Insulin Syringe-Nee dle U-100 1 mL 27 gauge x 1/2" Syrg 0 3-02 00:00: 00 Yes [id number] Use as directed [facility] Insulin Syringe-Nee dle U-100 1 mL 27 gauge x 1/2" Syrg 2020-0 3-02 00:00: 00 Yes [id number] Use as directed [facility] Insulin Syringe-Nee dle U-100 1 mL 27 gauge x 1/2" Syrg 2020-0 3-02 00:00: 00 Yes [id number] Use as directed [facility] Insulin Syringe-Nee dle U-100 1 mL 27 gauge x 1/2" Syrg 2020-0 3-02 00:00: 00 Yes [id number] Use as directed [facility] Insulin Syringe-Nee dle U-100 1 mL 27 gauge x 1/2" Syrg 2020-0 3-02 00:00: 00 Yes [id number] Use as directed [facility] Insulin Syringe-Nee dle U-100 1 mL 27 gauge x 1/2" Syrg 2020-0 3-02 00:00: 00 Yes [id number] Use as directed [facility] Insulin Syringe-Nee dle U-100 1 mL 27 gauge x 1/2" Syrg 1-0 3-02 00:00: 00 Yes [id number] Use as directed [facility] Insulin Syringe-Nee dle U-100 1 mL 27 gauge x 1/2" Syrg 2020-0 3-02 00:00: 00 Yes [id number] Use as directed [facility] Insulin Syringe-Nee dle U-100 1 mL 27 gauge x 1/2" Syrg 2020-0 3-02 00:00: 00 Yes [id number] Use as directed [facility] Insulin Syringe-Nee dle U-100 1 mL 27 gauge x 1/2" Syrg 2020-0 3-02 00:00: 00 Yes [id number] Use as directed [facility] Insulin Syringe-Nee dle U-100 1 mL 27 gauge x 1/2" Syrg 2020-0 3-02 00:00: 00 Yes [id number] Use as directed [facility] Insulin Syringe-Nee dle U-100 1 mL 27 gauge x 1/2" Syrg 2020-0 3-02 00:00: 00 Yes [id number] Use as directed [facility] Insulin Syringe-Nee dle U-100 1 mL 27 gauge x 1/2" Syrg 2020-0 3-02 00:00: 00 Yes [id number] Use as directed [facility] Insulin Syringe-Nee dle U-100 1 mL 27 gauge x 1/2" Syrg 2020-0 3-02 00:00: 00 Yes [id number] Use as directed [facility] Insulin Syringe-Nee dle U-100 1 mL 27 gauge x 1/2" Syrg 2020-0 3-02 00:00: 00 Yes [id number] Use as directed [facility] Insulin Syringe-Nee dle U-100 1 mL 27 gauge x 1/2" Syrg 2020-0 3-02 00:00: 00 Yes [id number] Use as directed [facility] Insulin Syringe-Nee dle U-100 1 mL 27 gauge x 1/2" Syrg 2020-0 3-02 00:00: 00 Yes [id number] Use as directed [facility] Insulin Syringe-Nee dle U-100 1 mL 27 gauge x 1/2" Syrg 3-02 00:00: 00 Yes [id number] Use as directed [facility] Insulin [place], Disposable, (PHUC PEN NEEDLE) 32 gauge x 5/32" Ndle 3-01 00:00: 00 Yes [id number] Use as directed [facility] Insulin [place], Disposable, (PHUC PEN NEEDLE) 32 gauge x 5/32" Ndle 3- 00:00: 00 Yes [id number] Use as directed [facility] Insulin [place], Disposable, (PHUC PEN NEEDLE) 32 gauge x 5/32" Ndle 3- 00:00: 00 Yes [id number] Use as directed [facility] Insulin [place], Disposable, (PHUC PEN NEEDLE) 32 gauge x 5/32" Ndle 3- 00:00: 00 Yes [id number] Use as directed [facility] Insulin [place], Disposable, (PHUC PEN NEEDLE) 32 gauge x 5/32" Ndle 3- 00:00: 00 Yes [id number] Use as directed [facility] Insulin [place], Disposable, (PHUC PEN NEEDLE) 32 gauge x 5/32" Ndle 3- 00:00: 00 Yes [id number] Use as directed [facility] Insulin [place], Disposable, (PHUC PEN NEEDLE) 32 gauge x 5/32" Ndle 3- 00:00: 00 Yes [id number] Use as directed [facility] Insulin [place], Disposable, (PHUC PEN NEEDLE) 32 gauge x 5/32" Ndle 3- 00:00: 00 Yes [id number] Use as directed [facility] Insulin [place], Disposable, (PHUC PEN NEEDLE) 32 gauge x 5/32" Ndle 3- 00:00: 00 Yes [id number] Use as directed [facility] Insulin [place], Disposable, (PHUC PEN NEEDLE) 32 gauge x 5/32" Ndle 3- 00:00: 00 Yes [id number] Use as directed [facility] Insulin [place], Disposable, (PHUC PEN NEEDLE) 32 gauge x 5/32" Ndle 3- 00:00: 00 Yes [id number] Use as directed [facility] Insulin [place], Disposable, (PHUC PEN NEEDLE) 32 gauge x 5/32" Ndle 3- 00:00: 00 Yes [id number] Use as directed [facility] Insulin [place], Disposable, (PHUC PEN NEEDLE) 32 gauge x 5/32" Ndle 3- 00:00: 00 Yes [id number] Use as directed [facility] Insulin [place], Disposable, (PHUC PEN NEEDLE) 32 gauge x 5/32" Ndle 3- 00:00: 00 Yes [id number] Use as directed [facility] Insulin [place], Disposable, (PHUC PEN NEEDLE) 32 gauge x 5/32" Ndle 3- 00:00: 00 Yes [id number] Use as directed [facility] Insulin [place], Disposable, (PHUC PEN NEEDLE) 32 gauge x 5/32" Ndle 3- 00:00: 00 Yes [id number] Use as directed [facility] Insulin [place], Disposable, (PHUC PEN NEEDLE) 32 gauge x 5/32" Ndle 3- 00:00: 00 Yes [id number] Use as directed [facility] Insulin [place], Disposable, (PHUC PEN NEEDLE) 32 gauge x 5/32" Ndle 3- 00:00: 00 Yes [id number] Use as directed [facility] Insulin [place], Disposable, (PHUC PEN NEEDLE) 32 gauge x 5/32" Ndle 3- 00:00: 00 Yes [id number] Use as directed [facility] Insulin [place], Disposable, (PHUC PEN NEEDLE) 32 gauge x 5/32" Ndle 3- 00:00: 00 Yes [id number] Use as directed [facility] Insulin [place], Disposable, (PHUC PEN NEEDLE) 32 gauge x 5/32" Ndle 3- 00:00: 00 Yes [id number] Use as directed [facility] Insulin [place], Disposable, (PHUC PEN NEEDLE) 32 gauge x 5/32" Ndle 3-01 00:00: 00 Yes [id number] Use as directed [facility] Insulin [place], Disposable, (PHUC PEN NEEDLE) 32 gauge x 5/32" Ndle 3- 00:00: 00 Yes [id number] Use as directed [facility] Insulin [place], Disposable, (PHUC PEN NEEDLE) 32 gauge x 5/32" Ndle 3- 00:00: 00 Yes [id number] Use as directed [facility] Insulin [place], Disposable, (PHUC PEN NEEDLE) 32 gauge x 5/32" Ndle 3- 00:00: 00 Yes [id number] Use as directed [facility] Insulin [place], Disposable, (PHUC PEN NEEDLE) 32 gauge x 5/32" Ndle 3- 00:00: 00 Yes [id number] Use as directed [facility] Insulin [place], Disposable, (PHUC PEN NEEDLE) 32 gauge x 5/32" Ndle 3- 00:00: 00 Yes [id number] Use as directed [facility] Insulin [place], Disposable, (PHUC PEN NEEDLE) 32 gauge x 5/32" Ndle 3- 00:00: 00 Yes [id number] Use as directed [facility] Insulin [place], Disposable, (PHUC PEN NEEDLE) 32 gauge x 5/32" Ndle 3- 00:00: 00 Yes [id number] Use as directed [facility] Insulin [place], Disposable, (PHUC PEN NEEDLE) 32 gauge x 5/32" Ndle 3- 00:00: 00 Yes [id number] Use as directed [facility] Insulin [place], Disposable, (PHUC PEN NEEDLE) 32 gauge x 5/32" Ndle 3- 00:00: 00 Yes [id number] Use as directed [facility] Insulin [place], Disposable, (PHUC PEN NEEDLE) 32 gauge x 5/32" Ndle 3- 00:00: 00 Yes [id number] Use as directed [facility] Insulin [place], Disposable, (PHUC PEN NEEDLE) 32 gauge x 5/32" Ndle 01-21 00:00: 00 Yes [id number] Use as directed [facility] potassium chloride 10 mEq CR tablet 8 00:00: 00 Yes [id number] 10meq Take 1 tablet by mouth every Thursday, and Thursday in the evening. [facility] aspirin 81 mg EC tablet 0 07-09 00:00: 00 Yes [id number] 81mg Take 1 tablet by mouth daily. [facility] potassium chloride 10 mEq CR tablet 07-09 00:00: 00 Yes [id number] 10meq Take 1 tablet by mouth every Thursday, and Thursday in the evening. [facility] aspirin 81 mg EC tablet 07-09 00:00: 00 Yes [id number] 81mg Take 1 tablet by mouth daily. [facility] potassium chloride 10 mEq CR tablet 07-09 00:00: 00 Yes [id number] 10meq Take 1 tablet by mouth every Thursday, and Thursday in the evening. [facility] aspirin 81 mg EC tablet 07-09 00:00: 00 Yes [id number] 81mg Take 1 tablet by mouth daily. [facility] potassium chloride 10 mEq CR tablet 07-09 00:00: 00 Yes [id number] 10meq Take 1 tablet by mouth every Thursday, and Thursday in the evening. [facility] aspirin 81 mg EC tablet 0 07-09 00:00: 00 Yes [id number] 81mg Take 1 tablet by mouth daily. [facility] potassium chloride 10 mEq CR tablet 0 07-09 00:00: 00 Yes [id number] 10meq Take 1 tablet by mouth every Thursday, and Thursday in the evening. [facility] aspirin 81 mg EC tablet 0 07-09 00:00: 00 Yes [id number] 81mg Take 1 tablet by mouth daily. [facility] lisinopril 10 mg tablet 07-09 00:00: 00 Yes [id number] 10mg Take 1 tablet by mouth daily. [facility] furosemide 20 mg tablet 07-09 00:00: 00 Yes [id number] 20mg Take 1 tablet by mouth every Thursday, and Thursday in the evening. [facility] potassium chloride 10 mEq CR tablet 07-09 00:00: 00 Yes [id number] 10meq Take 1 tablet by mouth every Thursday, and Thursday in the evening. [facility] simvastatin (ZOCOR) 40 mg tablet 07-09 00:00: 00 Yes [id number] 40mg Take 1 tablet by mouth at bedtime. [facility] metFORMIN 1,000 mg tablet 07-09 00:00: 00 Yes [id number] 1000mg Take 1 tablet by mouth 2 (two) times daily with meals. [facility] insulin NPH 100 unit/mL injection 07-09 00:00: 00 Yes [id number] 35U inject 35 Units under the skin every morning and evening. [facility] aspirin 81 mg EC tablet 07-09 00:00: 00 Yes [id number] 81mg Take 1 tablet by mouth daily. [facility] Insulin [place], Disposable, (PHUC PEN NEEDLE) 32 gauge x 5/32" Ndle 07-09 00:00: 00 Yes [id number] Use as directed [facility] lisinopril 10 mg tablet 07-09 00:00: 00 Yes [id number] 10mg Take 1 tablet by mouth daily. [facility] furosemide 20 mg tablet 07-09 00:00: 00 Yes [id number] 20mg Take 1 tablet by mouth every Thursday, and Thursday in the evening. [facility] potassium chloride 10 mEq CR tablet 07-09 00:00: 00 Yes [id number] 10meq Take 1 tablet by mouth every Thursday, and Thursday in the evening. [facility] simvastatin (ZOCOR) 40 mg tablet 07-09 00:00: 00 Yes [id number] 40mg Take 1 tablet by mouth at bedtime. [facility] metFORMIN 1,000 mg tablet 07-09 00:00: 00 Yes [id number] 1000mg Take 1 tablet by mouth 2 (two) times daily with meals. [facility] insulin NPH 100 unit/mL injection 07-09 00:00: 00 Yes [id number] 35U inject 35 Units under the skin every morning and evening. [facility] aspirin 81 mg EC tablet 07-09 00:00: 00 Yes [id number] 81mg Take 1 tablet by mouth daily. [facility] lisinopril 10 mg tablet 07-09 00:00: 00 Yes [id number] 10mg Take 1 tablet by mouth daily. [facility] furosemide 20 mg tablet 07-09 00:00: 00 Yes [id number] 20mg Take 1 tablet by mouth every Thursday, and Thursday in the evening. [facility] potassium chloride 10 mEq CR tablet 07-09 00:00: 00 Yes [id number] 10meq Take 1 tablet by mouth every Thursday, and Thursday in the evening. [facility] simvastatin (ZOCOR) 40 mg tablet 07-09 00:00: 00 Yes [id number] 40mg Take 1 tablet by mouth at bedtime. [facility] metFORMIN 1,000 mg tablet 07-09 00:00: 00 Yes [id number] 1000mg Take 1 tablet by mouth 2 (two) times daily with meals. [facility] insulin NPH 100 unit/mL injection 07-09 00:00: 00 Yes [id number] 35U inject 35 Units under the skin every morning and evening. [facility] aspirin 81 mg EC tablet 07-09 00:00: 00 Yes [id number] 81mg Take 1 tablet by mouth daily. [facility] lisinopril 10 mg tablet 07-09 00:00: 00 Yes [id number] 10mg Take 1 tablet by mouth daily. [facility] furosemide 20 mg tablet 07-09 00:00: 00 Yes [id number] 20mg Take 1 tablet by mouth every Thursday, and Thursday in the evening. [facility] potassium chloride 10 mEq CR tablet 07-09 00:00: 00 Yes [id number] 10meq Take 1 tablet by mouth every Thursday, and Thursday in the evening. [facility] simvastatin (ZOCOR) 40 mg tablet 07-09 00:00: 00 Yes [id number] 40mg Take 1 tablet by mouth at bedtime. [facility] metFORMIN 1,000 mg tablet 07-09 00:00: 00 Yes [id number] 1000mg Take 1 tablet by mouth 2 (two) times daily with meals. [facility] insulin NPH 100 unit/mL injection 07-09 00:00: 00 Yes [id number] 35U inject 35 Units under the skin every morning and evening. [facility] aspirin 81 mg EC tablet 07-09 00:00: 00 Yes [id number] 81mg Take 1 tablet by mouth daily. [facility] lisinopril 10 mg tablet 07-09 00:00: 00 Yes [id number] 10mg Take 1 tablet by mouth daily. [facility] furosemide 20 mg tablet 07-09 00:00: 00 Yes [id number] 20mg Take 1 tablet by mouth every Thursday, and Thursday in the evening. [facility] potassium chloride 10 mEq CR tablet 07-09 00:00: 00 Yes [id number] 10meq Take 1 tablet by mouth every Thursday, and Thursday in the evening. [facility] simvastatin (ZOCOR) 40 mg tablet 07-09 00:00: 00 Yes [id number] 40mg Take 1 tablet by mouth at bedtime. [facility] metFORMIN 1,000 mg tablet 07-09 00:00: 00 Yes [id number] 1000mg Take 1 tablet by mouth 2 (two) times daily with meals. [facility] insulin NPH 100 unit/mL injection 07-09 00:00: 00 Yes [id number] 35U inject 35 Units under the skin every morning and evening. [facility] aspirin 81 mg EC tablet 07-09 00:00: 00 Yes [id number] 81mg Take 1 tablet by mouth daily. [facility] lisinopril 10 mg tablet 07-09 00:00: 00 Yes [id number] 10mg Take 1 tablet by mouth daily. [facility] furosemide 20 mg tablet 07-09 00:00: 00 Yes [id number] 20mg Take 1 tablet by mouth every Thursday, and Thursday in the evening. [facility] potassium chloride 10 mEq CR tablet 07-09 00:00: 00 Yes [id number] 10meq Take 1 tablet by mouth every Thursday, and Thursday in the evening. [facility] simvastatin (ZOCOR) 40 mg tablet 07-09 00:00: 00 Yes [id number] 40mg Take 1 tablet by mouth at bedtime. [facility] metFORMIN 1,000 mg tablet 07-09 00:00: 00 Yes [id number] 1000mg Take 1 tablet by mouth 2 (two) times daily with meals. [facility] insulin NPH 100 unit/mL injection 07-09 00:00: 00 Yes [id number] 35U inject 35 Units under the skin every morning and evening. [facility] aspirin 81 mg EC tablet 07-09 00:00: 00 Yes [id number] 81mg Take 1 tablet by mouth daily. [facility] lisinopril 10 mg tablet 07-09 00:00: 00 Yes [id number] 10mg Take 1 tablet by mouth daily. [facility] furosemide 20 mg tablet 07-09 00:00: 00 Yes [id number] 20mg Take 1 tablet by mouth every Thursday, and Thursday in the evening. [facility] potassium chloride 10 mEq CR tablet 07-09 00:00: 00 Yes [id number] 10meq Take 1 tablet by mouth every Thursday, and Thursday in the evening. [facility] simvastatin (ZOCOR) 40 mg tablet 07-09 00:00: 00 Yes [id number] 40mg Take 1 tablet by mouth at bedtime. [facility] metFORMIN 1,000 mg tablet 07-09 00:00: 00 Yes [id number] 1000mg Take 1 tablet by mouth 2 (two) times daily with meals. [facility] aspirin 81 mg EC tablet 07-09 00:00: 00 Yes [id number] 81mg Take 1 tablet by mouth daily. [facility] lisinopril 10 mg tablet 07-09 00:00: 00 Yes [id number] 10mg Take 1 tablet by mouth daily. [facility] potassium chloride 10 mEq CR tablet 07-09 00:00: 00 Yes [id number] 10meq Take 1 tablet by mouth every Thursday, and Thursday in the evening. [facility] simvastatin (ZOCOR) 40 mg tablet 07-09 00:00: 00 Yes [id number] 40mg Take 1 tablet by mouth at bedtime. [facility] metFORMIN 1,000 mg tablet 07-09 00:00: 00 Yes [id number] 1000mg Take 1 tablet by mouth 2 (two) times daily with meals. [facility] aspirin 81 mg EC tablet 07-09 00:00: 00 Yes [id number] 81mg Take 1 tablet by mouth daily. [facility] lisinopril 10 mg tablet 07-09 00:00: 00 Yes [id number] 10mg Take 1 tablet by mouth daily. [facility] potassium chloride 10 mEq CR tablet 07-09 00:00: 00 Yes [id number] 10meq Take 1 tablet by mouth every Thursday, and Thursday in the evening. [facility] simvastatin (ZOCOR) 40 mg tablet 07-09 00:00: 00 Yes [id number] 40mg Take 1 tablet by mouth at bedtime. [facility] metFORMIN 1,000 mg tablet 07-09 00:00: 00 Yes [id number] 1000mg Take 1 tablet by mouth 2 (two) times daily with meals. [facility] aspirin 81 mg EC tablet 07-09 00:00: 00 Yes [id number] 81mg Take 1 tablet by mouth daily. [facility] lisinopril 10 mg tablet 2019-0 817 00:00: 00 Yes [id number] 10mg Take 1 tablet by mouth daily. [facility] potassium chloride 10 mEq CR tablet 0 8 00:00: 00 Yes [id number] 10meq Take 1 tablet by mouth every Thursday, and Thursday in the evening. [facility] simvastatin (ZOCOR) 40 mg tablet 0 07-09 00:00: 00 Yes [id number] 40mg Take 1 tablet by mouth at bedtime. [facility] metFORMIN 1,000 mg tablet 0 8 00:00: 00 Yes [id number] 1000mg Take 1 tablet by mouth 2 (two) times daily with meals. [facility] aspirin 81 mg EC tablet 0 07-09 00:00: 00 Yes [id number] 81mg Take 1 tablet by mouth daily. [facility] lisinopril 10 mg tablet 0 07-09 00:00: 00 Yes [id number] 10mg Take 1 tablet by mouth daily. [facility] potassium chloride 10 mEq CR tablet 07-09 00:00: 00 Yes [id number] 10meq Take 1 tablet by mouth every Thursday, and Thursday in the evening. [facility] simvastatin (ZOCOR) 40 mg tablet 0 07-09 00:00: 00 Yes [id number] 40mg Take 1 tablet by mouth at bedtime. [facility] metFORMIN 1,000 mg tablet 07-09 00:00: 00 Yes [id number] 1000mg Take 1 tablet by mouth 2 (two) times daily with meals. [facility] aspirin 81 mg EC tablet 0 8 00:00: 00 Yes [id number] 81mg Take 1 tablet by mouth daily. [facility] lisinopril 10 mg tablet 0 07-09 00:00: 00 Yes [id number] 10mg Take 1 tablet by mouth daily. [facility] potassium chloride 10 mEq CR tablet 2019-0 8 00:00: 00 Yes [id number] 10meq Take 1 tablet by mouth every Thursday, and Thursday in the evening. [facility] simvastatin (ZOCOR) 40 mg tablet 0 817 00:00: 00 Yes [id number] 40mg Take 1 tablet by mouth at bedtime. [facility] metFORMIN 1,000 mg tablet 0 07-09 00:00: 00 Yes [id number] 1000mg Take 1 tablet by mouth 2 (two) times daily with meals. [facility] aspirin 81 mg EC tablet 0 8 00:00: 00 Yes [id number] 81mg Take 1 tablet by mouth daily. [facility] lisinopril 10 mg tablet 0 8 00:00: 00 Yes [id number] 10mg Take 1 tablet by mouth daily. [facility] potassium chloride 10 mEq CR tablet 0 07-09 00:00: 00 Yes [id number] 10meq Take 1 tablet by mouth every Thursday, and Thursday in the evening. [facility] simvastatin (ZOCOR) 40 mg tablet 0 07-09 00:00: 00 Yes [id number] 40mg Take 1 tablet by mouth at bedtime. [facility] metFORMIN 1,000 mg tablet 0 07-09 00:00: 00 Yes [id number] 1000mg Take 1 tablet by mouth 2 (two) times daily with meals. [facility] aspirin 81 mg EC tablet 0 07-09 00:00: 00 Yes [id number] 81mg Take 1 tablet by mouth daily. [facility] lisinopril 10 mg tablet 0 07-09 00:00: 00 Yes [id number] 10mg Take 1 tablet by mouth daily. [facility] potassium chloride 10 mEq CR tablet 0 8 00:00: 00 Yes [id number] 10meq Take 1 tablet by mouth every Thursday, and Thursday in the evening. [facility] simvastatin (ZOCOR) 40 mg tablet 2019-0 07-09 00:00: 00 Yes [id number] 40mg Take 1 tablet by mouth at bedtime. [facility] metFORMIN 1,000 mg tablet 2019-0 8 00:00: 00 Yes [id number] 1000mg Take 1 tablet by mouth 2 (two) times daily with meals. [facility] aspirin 81 mg EC tablet 07-09 00:00: 00 Yes [id number] 81mg Take 1 tablet by mouth daily. [facility] lisinopril 10 mg tablet 07-09 00:00: 00 Yes [id number] 10mg Take 1 tablet by mouth daily. [facility] potassium chloride 10 mEq CR tablet 07-09 00:00: 00 Yes [id number] 10meq Take 1 tablet by mouth every Thursday, and Thursday in the evening. [facility] simvastatin (ZOCOR) 40 mg tablet 07-09 00:00: 00 Yes [id number] 40mg Take 1 tablet by mouth at bedtime. [facility] metFORMIN 1,000 mg tablet 07-09 00:00: 00 Yes [id number] 1000mg Take 1 tablet by mouth 2 (two) times daily with meals. [facility] aspirin 81 mg EC tablet 07-09 00:00: 00 Yes [id number] 81mg Take 1 tablet by mouth daily. [facility] lisinopril 10 mg tablet 07-09 00:00: 00 Yes [id number] 10mg Take 1 tablet by mouth daily. [facility] potassium chloride 10 mEq CR tablet 07-09 00:00: 00 Yes [id number] 10meq Take 1 tablet by mouth every Thursday, and Thursday in the evening. [facility] simvastatin (ZOCOR) 40 mg tablet 07-09 00:00: 00 Yes [id number] 40mg Take 1 tablet by mouth at bedtime. [facility] metFORMIN 1,000 mg tablet 07-09 00:00: 00 Yes [id number] 1000mg Take 1 tablet by mouth 2 (two) times daily with meals. [facility] aspirin 81 mg EC tablet 07-09 00:00: 00 Yes [id number] 81mg Take 1 tablet by mouth daily. [facility] lisinopril 10 mg tablet 07-09 00:00: 00 Yes [id number] 10mg Take 1 tablet by mouth daily. [facility] potassium chloride 10 mEq CR tablet 07-09 00:00: 00 Yes [id number] 10meq Take 1 tablet by mouth every Thursday, and Thursday in the evening. [facility] simvastatin (ZOCOR) 40 mg tablet 07-09 00:00: 00 Yes [id number] 40mg Take 1 tablet by mouth at bedtime. [facility] metFORMIN 1,000 mg tablet 07-09 00:00: 00 Yes [id number] 1000mg Take 1 tablet by mouth 2 (two) times daily with meals. [facility] aspirin 81 mg EC tablet 07-09 00:00: 00 Yes [id number] 81mg Take 1 tablet by mouth daily. [facility] potassium chloride 10 mEq CR tablet 07-09 00:00: 00 Yes [id number] 10meq Take 1 tablet by mouth every Thursday, and Thursday in the evening. [facility] aspirin 81 mg EC tablet 07-09 00:00: 00 Yes [id number] 81mg Take 1 tablet by mouth daily. [facility] potassium chloride 10 mEq CR tablet 07-09 00:00: 00 Yes [id number] 10meq Take 1 tablet by mouth every Thursday, and Thursday in the evening. [facility] aspirin 81 mg EC tablet 07-09 00:00: 00 Yes [id number] 81mg Take 1 tablet by mouth daily. [facility] potassium chloride 10 mEq CR tablet 07-09 00:00: 00 Yes [id number] 10meq Take 1 tablet by mouth every Thursday, and Thursday in the evening. [facility] aspirin 81 mg EC tablet 07-09 00:00: 00 Yes [id number] 81mg Take 1 tablet by mouth daily. [facility] potassium chloride 10 mEq CR tablet 07-09 00:00: 00 Yes [id number] 10meq Take 1 tablet by mouth every Thursday, and Thursday in the evening. [facility] aspirin 81 mg EC tablet 0 17 00:00: 00 Yes [id number] 81mg Take 1 tablet by mouth daily. [facility] potassium chloride 10 mEq CR tablet 2019-0 17 00:00: 00 Yes [id number] 10meq Take 1 tablet by mouth every Thursday, and Thursday in the evening. [facility] aspirin 81 mg EC tablet 2019-0 17 00:00: 00 Yes [id number] 81mg Take 1 tablet by mouth daily. [facility] potassium chloride 10 mEq CR tablet 2019-0 17 00:00: 00 Yes [id number] 10meq Take 1 tablet by mouth every Thursday, and Thursday in the evening. [facility] aspirin 81 mg EC tablet 2019-0 17 00:00: 00 Yes [id number] 81mg Take 1 tablet by mouth daily. [facility] potassium chloride 10 mEq CR tablet 2019-0 17 00:00: 00 Yes [id number] 10meq Take 1 tablet by mouth every Thursday, and Thursday in the evening. [facility] aspirin 81 mg EC tablet 2019-0 17 00:00: 00 Yes [id number] 81mg Take 1 tablet by mouth daily. [facility] potassium chloride 10 mEq CR tablet 2019-0 17 00:00: 00 Yes [id number] 10meq Take 1 tablet by mouth every Thursday, and Thursday in the evening. [facility] aspirin 81 mg EC tablet 0 17 00:00: 00 Yes [id number] 81mg Take 1 tablet by mouth daily. [facility] potassium chloride 10 mEq CR tablet 2019-0 17 00:00: 00 Yes [id number] 10meq Take 1 tablet by mouth every Thursday, and Thursday in the evening. [facility] aspirin 81 mg EC tablet 2019-0 17 00:00: 00 Yes [id number] 81mg Take 1 tablet by mouth daily. [facility] potassium chloride 10 mEq CR tablet 2019-0 8-17 00:00: 00 Yes [id number] 10meq Take 1 tablet by mouth every Thursday, and Thursday in the evening. [facility] aspirin 81 mg EC tablet 07-09 00:00: 00 Yes [id number] 81mg Take 1 tablet by mouth daily. [facility] potassium chloride 10 mEq CR tablet 07-09 00:00: 00 Yes [id number] 10meq Take 1 tablet by mouth every Thursday, and Thursday in the evening. [facility] aspirin 81 mg EC tablet 07-09 00:00: 00 Yes [id number] 81mg Take 1 tablet by mouth daily. [facility] potassium chloride 10 mEq CR tablet 07-09 00:00: 00 Yes [id number] 10meq Take 1 tablet by mouth every Thursday, and Thursday in the evening. [facility] aspirin 81 mg EC tablet 07-09 00:00: 00 Yes [id number] 81mg Take 1 tablet by mouth daily. [facility] lisinopril 10 mg tablet 07-09 00:00: 00 07-10 00:00 :00 No [id number] 10mg Take 1 tablet by mouth daily. [facility] simvastatin (ZOCOR) 40 mg tablet 07-09 00:00: 00 07-10 00:00 :00 No [id number] 40mg Take 1 tablet by mouth at bedtime. [facility] metFORMIN 1,000 mg tablet 07-09 00:00: 00 07-10 00:00 :00 No [id number] 1000mg Take 1 tablet by mouth 2 (two) times daily with meals. [facility] lisinopril 10 mg tablet 07-09 00:00: 00 07-10 00:00 :00 No [id number] 10mg Take 1 tablet by mouth daily. [facility] simvastatin (ZOCOR) 40 mg tablet 07-09 00:00: 00 07-10 00:00 :00 No [id number] 40mg Take 1 tablet by mouth at bedtime. [facility] metFORMIN 1,000 mg tablet 07-09 00:00: 00 07-10 00:00 :00 No [id number] 1000mg Take 1 tablet by mouth 2 (two) times daily with meals. [facility] furosemide 20 mg tablet 07-09 00:00: 00 02-14 00:00 :00 No [id number] 20mg Take 1 tablet by mouth every Thursday, and Thursday in the evening. [facility] furosemide 20 mg tablet 07-09 00:00: 02-14 00:00 :00 No [id number] 20mg Take 1 tablet by mouth every Thursday, and Thursday in the evening. [facility] insulin NPH 100 unit/mL injection 07-09 00:00: 00 02-10 00:00 :00 No [id number] 35U inject 35 Units under the skin every morning and evening. [facility] Insulin Free [place], Disposable, (PHUC PEN NEEDLE) 32 gauge x 5/32" Ndle 07-09 00:00: 00 01-21 00:00 :00 No [id number] Use as directed [facility] potassium chloride 10 mEq CR tablet 04-13 00:00: 00 Yes [id number] 10meq Take 1 tablet by mouth every Thursday, and Thursday in the evening. [facility] furosemide 20 mg tablet 04-13 00:00: 00 Yes [id number] 20mg Take 1 tablet by mouth every Thursday, and Thursday in the evening. [facility] potassium chloride 10 mEq CR tablet 04-13 00:00: 00 Yes [id number] 10meq Take 1 tablet by mouth every Thursday, and Thursday in the evening. [facility] furosemide 20 mg tablet 04-13 00:00: 00 Yes [id number] 20mg Take 1 tablet by mouth every Thursday, and Thursday in the evening. [facility] potassium chloride 10 mEq CR tablet 04-13 00:00: 00 07-09 00:00 :00 No [id number] 10meq Take 1 tablet by mouth every Thursday, and Thursday in the evening. [facility] furosemide 20 mg tablet 04-13 00:00: 00 07-09 00:00 :00 No [id number] 20mg Take 1 tablet by mouth every Thursday, and Thursday in the evening. [facility] doxycycline hyclate 100 mg tablet 04-12 00:00: 00 Yes [id number] 100mg Take 1 tablet by mouth 2 (two) times daily. [facility] doxycycline hyclate 100 mg tablet 04-12 00:00: 00 Yes [id number] 100mg Take 1 tablet by mouth 2 (two) times daily. [facility] doxycycline hyclate 100 mg tablet 04-12 00:00: 07-09 00:00 :00 No [id number] 100mg Take 1 tablet by mouth 2 (two) times daily. [facility] diph,pertus (acel),teta nus (ADACEL) injection 0.5 mL 03-12 14:00: 00 03-13 01:59 :00 No .5mL 0.5 mL, Intramuscu lar, ONCE, 1 dose, Thu03/12/20 at 0900, Routine [facility] clindamycin 300 mg capsule 03-12 00:00: 03-23 04:59 :00 No [id number] 300mg Take 1 capsule by mouth 4 (four) times daily for 10 days. [facility] clindamycin 300 mg capsule 03-12 00:00: 03-23 04:59 :00 No [id number] 300mg Take 1 capsule by mouth 4 (four) times daily for 10 days. [facility] clindamycin 300 mg capsule 20 00:00: 03-23 04:59 :00 No [id number] 300mg Take 1 capsule by mouth 4 (four) times daily for 10 days. [facility] clindamycin 300 mg capsule 03-12 00:00: 03-23 04:59 :00 No [id number] 300mg Take 1 capsule by mouth 4 (four) times daily for 10 days. [facility] clindamycin 300 mg capsule 03-12 00:00: 03-23 04:59 :00 No [id number] 300mg Take 1 capsule by mouth 4 (four) times daily for 10 days. [facility] clindamycin 300 mg capsule 03-12 00:00: 03-23 04:59 :00 No [id number] 300mg Take 1 capsule by mouth 4 (four) times daily for 10 days. [facility] clindamycin 300 mg capsule 03-12 00:00: 03-23 04:59 :00 No [id number] 300mg Take 1 capsule by mouth 4 (four) times daily for 10 days. [facility] clindamycin 300 mg capsule 03-12 00:00: 03-23 04:59 :00 No [id number] 300mg Take 1 capsule by mouth 4 (four) times daily for 10 days. [facility] sildenafil 50 mg tablet 02-27 00:00: 00 Yes [id number] 50mg Take 1 tablet by mouth as needed (Erectile dysfunctio n). Take 50mg x 1, about 30 mins - 4 hours prior to sexual activity. [facility] sildenafil 50 mg tablet 02-27 00:00: 00 Yes [id number] 50mg Take 1 tablet by mouth as needed (Erectile dysfunctio n). Take 50mg x 1, about 30 mins - 4 hours prior to sexual activity. [facility] sildenafil 50 mg tablet 02-27 00:00: 00 Yes [id number] 50mg Take 1 tablet by mouth as needed (Erectile dysfunctio n). Take 50mg x 1, about 30 mins - 4 hours prior to sexual activity. [facility] sildenafil 50 mg tablet 02-27 00:00: 00 Yes [id number] 50mg Take 1 tablet by mouth as needed (Erectile dysfunctio n). Take 50mg x 1, about 30 mins - 4 hours prior to sexual activity. [facility] sildenafil 50 mg tablet 02-27 00:00: 00 Yes [id number] 50mg Take 1 tablet by mouth as needed (Erectile dysfunctio n). Take 50mg x 1, about 30 mins - 4 hours prior to sexual activity. [facility] sildenafil 50 mg tablet 02-27 00:00: 00 Yes [id number] 50mg Take 1 tablet by mouth as needed (Erectile dysfunctio n). Take 50mg x 1, about 30 mins - 4 hours prior to sexual activity. [facility] sildenafil 50 mg tablet 02-27 00:00: 00 Yes [id number] 50mg Take 1 tablet by mouth as needed (Erectile dysfunctio n). Take 50mg x 1, about 30 mins - 4 hours prior to sexual activity. [facility] sildenafil 50 mg tablet 02-27 00:00: 00 Yes [id number] 50mg Take 1 tablet by mouth as needed (Erectile dysfunctio n). Take 50mg x 1, about 30 mins - 4 hours prior to sexual activity. [facility] sildenafil 50 mg tablet 02-27 00:00: 00 Yes [id number] 50mg Take 1 tablet by mouth as needed (Erectile dysfunctio n). Take 50mg x 1, about 30 mins - 4 hours prior to sexual activity. [facility] sildenafil 50 mg tablet 02-27 00:00: 00 Yes [id number] 50mg Take 1 tablet by mouth as needed (Erectile dysfunctio n). Take 50mg x 1, about 30 mins - 4 hours prior to sexual activity. [facility] sildenafil 50 mg tablet 02-27 00:00: 00 Yes [id number] 50mg Take 1 tablet by mouth as needed (Erectile dysfunctio n). Take 50mg x 1, about 30 mins - 4 hours prior to sexual activity. [facility] sildenafil 50 mg tablet 02-27 00:00: 00 Yes [id number] 50mg Take 1 tablet by mouth as needed (Erectile dysfunctio n). Take 50mg x 1, about 30 mins - 4 hours prior to sexual activity. [facility] sildenafil 50 mg tablet 02-27 00:00: 00 Yes [id number] 50mg Take 1 tablet by mouth as needed (Erectile dysfunctio n). Take 50mg x 1, about 30 mins - 4 hours prior to sexual activity. [facility] sildenafil 50 mg tablet 02-27 00:00: 00 Yes [id number] 50mg Take 1 tablet by mouth as needed (Erectile dysfunctio n). Take 50mg x 1, about 30 mins - 4 hours prior to sexual activity. [facility] sildenafil 50 mg tablet 02-27 00:00: 00 Yes [id number] 50mg Take 1 tablet by mouth as needed (Erectile dysfunctio n). Take 50mg x 1, about 30 mins - 4 hours prior to sexual activity. [facility] sildenafil 50 mg tablet 02-27 00:00: 00 Yes [id number] 50mg Take 1 tablet by mouth as needed (Erectile dysfunctio n). Take 50mg x 1, about 30 mins - 4 hours prior to sexual activity. [facility] sildenafil 50 mg tablet 02-27 00:00: 00 02-14 00:00 :00 No [id number] 50mg Take 1 tablet by mouth as needed (Erectile dysfunctio n). Take 50mg x 1, about 30 mins - 4 hours prior to sexual activity. [facility] sildenafil 50 mg tablet 02-27 00:00: 00 02-14 00:00 :00 No [id number] 50mg Take 1 tablet by mouth as needed (Erectile dysfunctio n). Take 50mg x 1, about 30 mins - 4 hours prior to sexual activity. [facility] metFORMIN 1,000 mg tablet 01-18 00:00: 00 Yes [id number] 1000mg Take 1 tablet by mouth 2 (two) times daily with meals. [facility] metFORMIN 1,000 mg tablet 01-18 00:00: 00 Yes [id number] 1000mg Take 1 tablet by mouth 2 (two) times daily with meals. [facility] metFORMIN 1,000 mg tablet 2020-0 2-26 00:00: 00 Yes [id number] 1000mg Take 1 tablet by mouth 2 (two) times daily with meals. [facility] metFORMIN 1,000 mg tablet 2020-0 2-26 00:00: 00 Yes [id number] 1000mg Take 1 tablet by mouth 2 (two) times daily with meals. [facility] metFORMIN 1,000 mg tablet 2020-0 2-26 00:00: 00 Yes [id number] 1000mg Take 1 tablet by mouth 2 (two) times daily with meals. [facility] metFORMIN 1,000 mg tablet 2020-0 2-26 00:00: 00 Yes [id number] 1000mg Take 1 tablet by mouth 2 (two) times daily with meals. [facility] metFORMIN 1,000 mg tablet 2020-0 2-26 00:00: 00 Yes [id number] 1000mg Take 1 tablet by mouth 2 (two) times daily with meals. [facility] metFORMIN 1,000 mg tablet 2020-0 2-26 00:00: 00 Yes [id number] 1000mg Take 1 tablet by mouth 2 (two) times daily with meals. [facility] metFORMIN 1,000 mg tablet 2020-0 2-26 00:00: 00 Yes [id number] 1000mg Take 1 tablet by mouth 2 (two) times daily with meals. [facility] metFORMIN 1,000 mg tablet 2020-0 2-26 00:00: 00 Yes [id number] 1000mg Take 1 tablet by mouth 2 (two) times daily with meals. [facility] metFORMIN 1,000 mg tablet 2020-0 2-26 00:00: 00 Yes [id number] 1000mg Take 1 tablet by mouth 2 (two) times daily with meals. [facility] metFORMIN 1,000 mg tablet 2020-0 2-26 00:00: 00 Yes [id number] 1000mg Take 1 tablet by mouth 2 (two) times daily with meals. [facility] metFORMIN 1,000 mg tablet 2020-0 2-26 00:00: 00 Yes [id number] 1000mg Take 1 tablet by mouth 2 (two) times daily with meals. [facility] metFORMIN 1,000 mg tablet 01-18 00:00: 00 Yes [id number] 1000mg Take 1 tablet by mouth 2 (two) times daily with meals. [facility] metFORMIN 1,000 mg tablet 01-18 00:00: 00 Yes [id number] 1000mg Take 1 tablet by mouth 2 (two) times daily with meals. [facility] metFORMIN 1,000 mg tablet 01-18 00:00: 00 Yes [id number] 1000mg Take 1 tablet by mouth 2 (two) times daily with meals. [facility] metFORMIN 1,000 mg tablet 01-18 00:00: 00 07-09 00:00 :00 No [id number] 1000mg Take 1 tablet by mouth 2 (two) times daily with meals. [facility] ondansetron (ZOFRAN (PF)) injection 4 mg 12-30 17:29: 59 Yes 4mg 4 mg, Slow IV Push, PRN, 1 dose, Starting Thu12/30/19 at 1129, Until Discontinu ed, Routine, Nausea and Vomiting (N/V), PACU [facility] water for irrigation irrigation solution 12-30 16:20: 00 Yes PRN, Starting Thu12/30/19 at 1020, Until Discontinu ed, Routine, Intra-op [facility] simethicone (GAS RELIEF (SIMETHICON E)) 40 mg/0.6 mL drops 12-30 16:19: 00 Yes PRN, Starting Thu12/30/19 at 1019, Until Discontinu ed, Routine, Intra-op [facility] NaCl 0.9% (NS) IV infusion 1,000 mL 12-30 13:45: 00 Yes 1000mL at 42 mL/hr, IV Infusion, CONTINUOUS , Starting Thu12/30/19 at 0745, Until Discontinu ed, Routine, DSU Pre-op [facility] peg-electro lyte soln 236-22.74-6 .74 -5.86 gram solution 1-08 00:00: 00 Yes Take as directed [facility] peg-electro lyte soln 236-22.74-6 .74 -5.86 gram solution 2019-0 11-30 00:00: 00 Yes Take as directed [facility] peg-electro lyte soln 236-22.74-6 .74 -5.86 gram solution 2019-0 11-30 00:00: 00 Yes Take as directed [facility] peg-electro lyte soln 236-22.74-6 .74 -5.86 gram solution 0 11-30 00:00: 00 Yes Take as directed [facility] peg-electro lyte soln 236-22.74-6 .74 -5.86 gram solution 0 11-30 00:00: 00 Yes Take as directed [facility] peg-electro lyte soln 236-22.74-6 .74 -5.86 gram solution 2019-0 11-30 00:00: 00 Yes Take as directed [facility] peg-electro lyte soln 236-22.74-6 .74 -5.86 gram solution 0 11-30 00:00: 00 Yes Take as directed [facility] peg-electro lyte soln 236-22.74-6 .74 -5.86 gram solution 2019-0 11-30 00:00: 00 Yes Take as directed [facility] peg-electro lyte soln 236-22.74-6 .74 -5.86 gram solution 0 11-30 00:00: 00 Yes Take as directed [facility] peg-electro lyte soln 236-22.74-6 .74 -5.86 gram solution 0 11-30 00:00: 00 Yes Take as directed [facility] peg-electro lyte soln 236-22.74-6 .74 -5.86 gram solution 0 11-30 00:00: 00 Yes Take as directed [facility] peg-electro lyte soln 236-22.74-6 .74 -5.86 gram solution 0 11-30 00:00: 00 Yes Take as directed [facility] peg-electro lyte soln 236-22.74-6 .74 -5.86 gram solution 0 11-30 00:00: 00 Yes Take as directed [facility] peg-electro lyte soln 236-22.74-6 .74 -5.86 gram solution 0 11-30 00:00: 00 Yes Take as directed [facility] peg-electro lyte soln 236-22.74-6 .74 -5.86 gram solution 0 11-30 00:00: 00 Yes Take as directed [facility] peg-electro lyte soln 236-22.74-6 .74 -5.86 gram solution 11-30 00:00: 00 Yes Take as directed [facility] peg-electro lyte soln 236-22.74-6 .74 -5.86 gram solution 0 11-30 00:00: 00 Yes Take as directed [facility] peg-electro lyte soln 236-22.74-6 .74 -5.86 gram solution 0 11-30 00:00: 00 Yes Take as directed [facility] peg-electro lyte soln 236-22.74-6 .74 -5.86 gram solution 0 11-30 00:00: 00 Yes Take as directed [facility] peg-electro lyte soln 236-22.74-6 .74 -5.86 gram solution 11-30 00:00: 00 Yes Take as directed [facility] peg-electro lyte soln 236-22.74-6 .74 -5.86 gram solution 11-30 00:00: 00 Yes Take as directed [facility] peg-electro lyte soln 236-22.74-6 .74 -5.86 gram solution 11-30 00:00: 00 Yes Take as directed [facility] peg-electro lyte soln 236-22.74-6 .74 -5.86 gram solution 11-30 00:00: 00 Yes Take as directed [facility] peg-electro lyte soln 236-22.74-6 .74 -5.86 gram solution 11-30 00:00: 00 Yes Take as directed [facility] peg-electro lyte soln 236-22.74-6 .74 -5.86 gram solution 2019-0 11-30 00:00: 00 Yes Take as directed [facility] peg-electro lyte soln 236-22.74-6 .74 -5.86 gram solution 2019-0 11-30 00:00: 00 Yes Take as directed [facility] peg-electro lyte soln 236-22.74-6 .74 -5.86 gram solution 2019-0 11-30 00:00: 00 Yes Take as directed [facility] peg-electro lyte soln 236-22.74-6 .74 -5.86 gram solution 2019-0 11-30 00:00: 00 Yes Take as directed [facility] peg-electro lyte soln 236-22.74-6 .74 -5.86 gram solution 2019-0 11-30 00:00: 00 Yes Take as directed [facility] peg-electro lyte soln 236-22.74-6 .74 -5.86 gram solution 0 11-30 00:00: 00 Yes Take as directed [facility] peg-electro lyte soln 236-22.74-6 .74 -5.86 gram solution 0 11-30 00:00: 00 Yes Take as directed [facility] peg-electro lyte soln 236-22.74-6 .74 -5.86 gram solution 2019-0 11-30 00:00: 00 Yes Take as directed [facility] peg-electro lyte soln 236-22.74-6 .74 -5.86 gram solution 0 11-30 00:00: 00 Yes Take as directed [facility] peg-electro lyte soln 236-22.74-6 .74 -5.86 gram solution 0 11-30 00:00: 00 Yes Take as directed [facility] peg-electro lyte soln 236-22.74-6 .74 -5.86 gram solution 2019-0 11-30 00:00: 00 Yes Take as directed [facility] peg-electro lyte soln 236-22.74-6 .74 -5.86 gram solution 2019-0 11-30 00:00: 00 Yes Take as directed [facility] peg-electro lyte soln 236-22.74-6 .74 -5.86 gram solution 2019-0 11-30 00:00: 00 Yes Take as directed [facility] peg-electro lyte soln 236-22.74-6 .74 -5.86 gram solution 2019-0 11-30 00:00: 00 Yes Take as directed [facility] peg-electro lyte soln 236-22.74-6 .74 -5.86 gram solution 0 11-30 00:00: 00 Yes Take as directed [facility] peg-electro lyte soln 236-22.74-6 .74 -5.86 gram solution 2019-0 11-30 00:00: 00 Yes Take as directed [facility] peg-electro lyte soln 236-22.74-6 .74 -5.86 gram solution 0 11-30 00:00: 00 Yes Take as directed [facility] peg-electro lyte soln 236-22.74-6 .74 -5.86 gram solution 2019-0 11-30 00:00: 00 Yes Take as directed [facility] peg-electro lyte soln 236-22.74-6 .74 -5.86 gram solution 2019-0 11-30 00:00: 00 Yes Take as directed [facility] peg-electro lyte soln 236-22.74-6 .74 -5.86 gram solution 0 11-30 00:00: 00 Yes Take as directed [facility] peg-electro lyte soln 236-22.74-6 .74 -5.86 gram solution 2019-0 11-30 00:00: 00 Yes Take as directed [facility] peg-electro lyte soln 236-22.74-6 .74 -5.86 gram solution 0 11-30 00:00: 00 Yes Take as directed [facility] peg-electro lyte soln 236-22.74-6 .74 -5.86 gram solution 0 11-30 00:00: 00 Yes Take as directed [facility] peg-electro lyte soln 236-22.74-6 .74 -5.86 gram solution 0 11-30 00:00: 00 Yes Take as directed [facility] peg-electro lyte soln 236-22.74-6 .74 -5.86 gram solution 2019-0 11-30 00:00: 00 Yes Take as directed [facility] peg-electro lyte soln 236-22.74-6 .74 -5.86 gram solution 0 11-30 00:00: 00 Yes Take as directed [facility] peg-electro lyte soln 236-22.74-6 .74 -5.86 gram solution 0 11-30 00:00: 00 Yes Take as directed [facility] peg-electro lyte soln 236-22.74-6 .74 -5.86 gram solution 2019-0 11-30 00:00: 00 Yes Take as directed [facility] peg-electro lyte soln 236-22.74-6 .74 -5.86 gram solution 0 11-30 00:00: 00 Yes Take as directed [facility] peg-electro lyte soln 236-22.74-6 .74 -5.86 gram solution 0 11-30 00:00: 00 Yes Take as directed [facility] peg-electro lyte soln 236-22.74-6 .74 -5.86 gram solution 2019-0 11-30 00:00: 00 Yes Take as directed [facility] peg-electro lyte soln 236-22.74-6 .74 -5.86 gram solution 0 11-30 00:00: 00 Yes Take as directed [facility] peg-electro lyte soln 236-22.74-6 .74 -5.86 gram solution 0 11-30 00:00: 00 Yes Take as directed [facility] prednisoLON E acetate 1 % ophthalmic suspension drops 2018-11 00:00: 00 Yes [id number] 1[drp] Place 1 Drop in right eye 4 (four) times daily. [facility] ofloxacin (OCUFLOX) 0.3 % ophthalmic solution 2018-11 00:00: 00 Yes [id number] 1[drp] Place 1 Drop in right eye 3 (three) times daily. [facility] prednisoLON E acetate 1 % ophthalmic suspension drops 2018-11 00:00: 00 Yes [id number] 1[drp] Place 1 Drop in right eye 4 (four) times daily. [facility] ofloxacin (OCUFLOX) 0.3 % ophthalmic solution 2018-11 00:00: 00 Yes [id number] 1[drp] Place 1 Drop in right eye 3 (three) times daily. [facility] prednisoLON E acetate 1 % ophthalmic suspension drops 2018-11 00:00: 00 Yes [id number] 1[drp] Place 1 Drop in right eye 4 (four) times daily. [facility] ofloxacin (OCUFLOX) 0.3 % ophthalmic solution 2018-11 00:00: 00 Yes [id number] 1[drp] Place 1 Drop in right eye 3 (three) times daily. [facility] prednisoLON E acetate 1 % ophthalmic suspension drops 2018-11 00:00: 00 Yes [id number] 1[drp] Place 1 Drop in right eye 4 (four) times daily. [facility] ofloxacin (OCUFLOX) 0.3 % ophthalmic solution 2018-11 00:00: 00 Yes [id number] 1[drp] Place 1 Drop in right eye 3 (three) times daily. [facility] prednisoLON E acetate 1 % ophthalmic suspension drops 2018-11 00:00: 00 Yes [id number] 1[drp] Place 1 Drop in right eye 4 (four) times daily. [facility] ofloxacin (OCUFLOX) 0.3 % ophthalmic solution 2018-11 00:00: 00 Yes [id number] 1[drp] Place 1 Drop in right eye 3 (three) times daily. [facility] prednisoLON E acetate 1 % ophthalmic suspension drops 2018-11 00:00: 00 Yes [id number] 1[drp] Place 1 Drop in right eye 4 (four) times daily. [facility] ofloxacin (OCUFLOX) 0.3 % ophthalmic solution 2018-11 00:00: 00 Yes [id number] 1[drp] Place 1 Drop in right eye 3 (three) times daily. [facility] prednisoLON E acetate 1 % ophthalmic suspension drops 2018-11 00:00: 00 Yes [id number] 1[drp] Place 1 Drop in right eye 4 (four) times daily. [facility] ofloxacin (OCUFLOX) 0.3 % ophthalmic solution 2018-11 00:00: 00 Yes [id number] 1[drp] Place 1 Drop in right eye 3 (three) times daily. [facility] prednisoLON E acetate 1 % ophthalmic suspension drops 2018-11 00:00: 00 Yes [id number] 1[drp] Place 1 Drop in right eye 4 (four) times daily. [facility] ofloxacin (OCUFLOX) 0.3 % ophthalmic solution 2018-11 00:00: 00 Yes [id number] 1[drp] Place 1 Drop in right eye 3 (three) times daily. [facility] prednisoLON E acetate 1 % ophthalmic suspension drops 2018-11 00:00: 00 Yes [id number] 1[drp] Place 1 Drop in right eye 4 (four) times daily. [facility] prednisoLON E acetate 1 % ophthalmic suspension drops 2018-11 00:00: 00 Yes [id number] 1[drp] Place 1 Drop in right eye 4 (four) times daily. [facility] ofloxacin (OCUFLOX) 0.3 % ophthalmic solution 2018-11 00:00: 00 Yes [id number] 1[drp] Place 1 Drop in right eye 3 (three) times daily. [facility] ofloxacin (OCUFLOX) 0.3 % ophthalmic solution 2018-11 00:00: 00 Yes [id number] 1[drp] Place 1 Drop in right eye 3 (three) times daily. [facility] prednisoLON E acetate 1 % ophthalmic suspension drops 2018-11 00:00: 00 Yes [id number] 1[drp] Place 1 Drop in right eye 4 (four) times daily. [facility]OX[facility] 0.3 % ophthalmic solution 2018-11 00:00: 00 Yes [id number] 1[drp] Place 1 Drop in right eye 3 (three) times daily. [facility] prednisoLON E acetate 1 % ophthalmic suspension drops 2018-11 00:00: 00 Yes [id number] 1[drp] Place 1 Drop in right eye 4 (four) times daily. [facility] ofloxacin (OCUFLOX) 0.3 % ophthalmic solution 2018-11 00:00: 00 Yes [id number] 1[drp] Place 1 Drop in right eye 3 (three) times daily. [facility] prednisoLON E acetate 1 % ophthalmic suspension drops 2018-11 00:00: 00 Yes [id number] 1[drp] Place 1 Drop in right eye 4 (four) times daily. [facility] ofloxacin (OCUFLOX) 0.3 % ophthalmic solution 2018-11 00:00: 00 Yes [id number] 1[drp] Place 1 Drop in right eye 3 (three) times daily. [facility] prednisoLON E acetate 1 % ophthalmic suspension drops 2018-11 00:00: 00 Yes [id number] 1[drp] Place 1 Drop in right eye 4 (four) times daily. [facility] ofloxacin (OCUFLOX) 0.3 % ophthalmic solution 2018-11 00:00: 00 Yes [id number] 1[drp] Place 1 Drop in right eye 3 (three) times daily. [facility] prednisoLON E acetate 1 % ophthalmic suspension drops 2018-11 00:00: 00 Yes [id number] 1[drp] Place 1 Drop in right eye 4 (four) times daily. [facility] ofloxacin (OCUFLOX) 0.3 % ophthalmic solution 2018-11 00:00: 00 Yes [id number] 1[drp] Place 1 Drop in right eye 3 (three) times daily. [facility] prednisoLON E acetate 1 % ophthalmic suspension drops 2018-11 00:00: 00 Yes [id number] 1[drp] Place 1 Drop in right eye 4 (four) times daily. [facility] ofloxacin (OCUFLOX) 0.3 % ophthalmic solution 2018-11 00:00: 00 Yes [id number] 1[drp] Place 1 Drop in right eye 3 (three) times daily. [facility] prednisoLON E acetate 1 % ophthalmic suspension drops 2018-11 00:00: 00 Yes [id number] 1[drp] Place 1 Drop in right eye 4 (four) times daily. [facility] ofloxacin (OCUFLOX) 0.3 % ophthalmic solution 2018-11 00:00: 00 Yes [id number] 1[drp] Place 1 Drop in right eye 3 (three) times daily. [facility] prednisoLON E acetate 1 % ophthalmic suspension drops 2018-11 00:00: 00 Yes [id number] 1[drp] Place 1 Drop in right eye 4 (four) times daily. [facility] ofloxacin (OCUFLOX) 0.3 % ophthalmic solution 2018-11 00:00: 00 Yes [id number] 1[drp] Place 1 Drop in right eye 3 (three) times daily. [facility] prednisoLON E acetate 1 % ophthalmic suspension drops 2018-11 00:00: 00 Yes [id number] 1[drp] Place 1 Drop in right eye 4 (four) times daily. [facility] ofloxacin (OCUFLOX) 0.3 % ophthalmic solution 2018-11 00:00: 00 Yes [id number] 1[drp] Place 1 Drop in right eye 3 (three) times daily. [facility] prednisoLON E acetate 1 % ophthalmic suspension drops 2018-11 00:00: 00 Yes [id number] 1[drp] Place 1 Drop in right eye 4 (four) times daily. [facility] ofloxacin (OCUFLOX) 0.3 % ophthalmic solution 2018-11 00:00: 00 Yes [id number] 1[drp] Place 1 Drop in right eye 3 (three) times daily. [facility] prednisoLON E acetate 1 % ophthalmic suspension drops 2018-11 00:00: 00 Yes [id number] 1[drp] Place 1 Drop in right eye 4 (four) times daily. [facility]UFLOX[facility] 0.3 % ophthalmic solution 2018-11 00:00: 00 Yes [id number] 1[drp] Place 1 Drop in right eye 3 (three) times daily. [facility] prednisoLON E acetate 1 % ophthalmic suspension drops 2018-11 00:00: 00 Yes [id number] 1[drp] Place 1 Drop in right eye 4 (four) times daily. [facility] ofloxacin (OCUFLOX) 0.3 % ophthalmic solution 2018-11 00:00: 00 Yes [id number] 1[drp] Place 1 Drop in right eye 3 (three) times daily. [facility] prednisoLON E acetate 1 % ophthalmic suspension drops 2018-11 00:00: 00 Yes [id number] 1[drp] Place 1 Drop in right eye 4 (four) times daily. [facility] ofloxacin (OCUFLOX) 0.3 % ophthalmic solution 2018-11 00:00: 00 Yes [id number] 1[drp] Place 1 Drop in right eye 3 (three) times daily. [facility] prednisoLON E acetate 1 % ophthalmic suspension drops 2018-11 00:00: 00 Yes [id number] 1[drp] Place 1 Drop in right eye 4 (four) times daily. [facility] ofloxacin (OCUFLOX) 0.3 % ophthalmic solution 2018-11 00:00: 00 Yes [id number] 1[drp] Place 1 Drop in right eye 3 (three) times daily. [facility] prednisoLON E acetate 1 % ophthalmic suspension drops 2018-11 00:00: 00 Yes [id number] 1[drp] Place 1 Drop in right eye 4 (four) times daily. [facility] (OCUFLOX) 0.3 % ophthalmic solution 2018-11 00:00: 00 Yes [id number] 1[drp] Place 1 Drop in right eye 3 (three) times daily. [facility] prednisoLON E acetate 1 % ophthalmic suspension drops 2018-11 00:00: 00 Yes [id number] 1[drp] Place 1 Drop in right eye 4 (four) times daily. [facility] ofloxacin (OCUFLOX) 0.3 % ophthalmic solution 2018-11 00:00: 00 Yes [id number] 1[drp] Place 1 Drop in right eye 3 (three) times daily. [facility] prednisoLON E acetate 1 % ophthalmic suspension drops 2018-11 00:00: 00 Yes [id number] 1[drp] Place 1 Drop in right eye 4 (four) times daily. [facility] ofloxacin (OCUFLOX) 0.3 % ophthalmic solution 2018-11 00:00: 00 Yes [id number] 1[drp] Place 1 Drop in right eye 3 (three) times daily. [facility] prednisoLON E acetate 1 % ophthalmic suspension drops 2018-11 00:00: 00 Yes [id number] 1[drp] Place 1 Drop in right eye 4 (four) times daily. [facility] ofloxacin (OCUFLOX) 0.3 % ophthalmic solution 2018-11 00:00: 00 Yes [id number] 1[drp] Place 1 Drop in right eye 3 (three) times daily. [facility] prednisoLON E acetate 1 % ophthalmic suspension drops 2018-11 00:00: 00 Yes [id number] 1[drp] Place 1 Drop in right eye 4 (four) times daily. [facility] ofloxacin (OCUFLOX) 0.3 % ophthalmic solution 2018-11 00:00: 00 Yes [id number] 1[drp] Place 1 Drop in right eye 3 (three) times daily. [facility] prednisoLON E acetate 1 % ophthalmic suspension drops 2018-11 00:00: 00 Yes [id number] 1[drp] Place 1 Drop in right eye 4 (four) times daily. [facility]loxacin (OCUFLOX) 0.3 % ophthalmic solution 2018-11 00:00: 00 Yes [id number] 1[drp] Place 1 Drop in right eye 3 (three) times daily. [facility] prednisoLON E acetate 1 % ophthalmic suspension drops 2018-11 00:00: 00 Yes [id number] 1[drp] Place 1 Drop in right eye 4 (four) times daily. [facility] ofloxacin (OCUFLOX) 0.3 % ophthalmic solution 2018-11 00:00: 00 Yes [id number] 1[drp] Place 1 Drop in right eye 3 (three) times daily. [facility] prednisoLON E acetate 1 % ophthalmic suspension drops 2018-11 00:00: 00 Yes [id number] 1[drp] Place 1 Drop in right eye 4 (four) times daily. [facility] ofloxacin (OCUFLOX) 0.3 % ophthalmic solution 2018-11 00:00: 00 Yes [id number] 1[drp] Place 1 Drop in right eye 3 (three) times daily. [facility] prednisoLON E acetate 1 % ophthalmic suspension drops 2018-11 00:00: 00 Yes [id number] 1[drp] Place 1 Drop in right eye 4 (four) times daily. [facility] ofloxacin (OCUFLOX) 0.3 % ophthalmic solution 2018-11 00:00: 00 Yes [id number] 1[drp] Place 1 Drop in right eye 3 (three) times daily. [facility] prednisoLON E acetate 1 % ophthalmic suspension drops 2018-11 00:00: 00 Yes [id number] 1[drp] Place 1 Drop in right eye 4 (four) times daily. [facility]loxacin (OCUFLOX) 0.3 % ophthalmic solution 2018-11 00:00: 00 Yes [id number] 1[drp] Place 1 Drop in right eye 3 (three) times daily. [facility] prednisoLON E acetate 1 % ophthalmic suspension drops 2018-11 00:00: 00 Yes [id number] 1[drp] Place 1 Drop in right eye 4 (four) times daily. [facility] ofloxacin (OCUFLOX) 0.3 % ophthalmic solution 2018-11 00:00: 00 Yes [id number] 1[drp] Place 1 Drop in right eye 3 (three) times daily. [facility] prednisoLON E acetate 1 % ophthalmic suspension drops 2018-11 00:00: 00 Yes [id number] 1[drp] Place 1 Drop in right eye 4 (four) times daily. [facility] ofloxacin (OCUFLOX) 0.3 % ophthalmic solution 2018-11 00:00: 00 Yes [id number] 1[drp] Place 1 Drop in right eye 3 (three) times daily. [facility] prednisoLON E acetate 1 % ophthalmic suspension drops 2018-11 00:00: 00 Yes [id number] 1[drp] Place 1 Drop in right eye 4 (four) times daily. [facility] ofloxacin (OCUFLOX) 0.3 % ophthalmic solution 2018-11 00:00: 00 Yes [id number] 1[drp] Place 1 Drop in right eye 3 (three) times daily. [facility] prednisoLON E acetate 1 % ophthalmic suspension drops 2018-11 00:00: 00 Yes [id number] 1[drp] Place 1 Drop in right eye 4 (four) times daily. [facility] ofloxacin (OCUFLOX) 0.3 % ophthalmic solution 2018-11 00:00: 00 Yes [id number] 1[drp] Place 1 Drop in right eye 3 (three) times daily. [facility] prednisoLON E acetate 1 % ophthalmic suspension drops 2018-11 00:00: 00 Yes [id number] 1[drp] Place 1 Drop in right eye 4 (four) times daily. [facility] ofloxacin (OCUFLOX) 0.3 % ophthalmic solution 2018-11 00:00: 00 Yes [id number] 1[drp] Place 1 Drop in right eye 3 (three) times daily. [facility] prednisoLON E acetate 1 % ophthalmic suspension drops 2018-11 00:00: 00 Yes [id number] 1[drp] Place 1 Drop in right eye 4 (four) times daily. [facility] ofloxacin (OCUFLOX) 0.3 % ophthalmic solution 2018-11 00:00: 00 Yes [id number] 1[drp] Place 1 Drop in right eye 3 (three) times daily. [facility] prednisoLON E acetate 1 % ophthalmic suspension drops 2018-11 00:00: 00 Yes [id number] 1[drp] Place 1 Drop in right eye 4 (four) times daily. [facility] ofloxacin (OCUFLOX) 0.3 % ophthalmic solution 2018-11 00:00: 00 Yes [id number] 1[drp] Place 1 Drop in right eye 3 (three) times daily. [facility] prednisoLON E acetate 1 % ophthalmic suspension drops 2018-11 00:00: 00 Yes [id number] 1[drp] Place 1 Drop in right eye 4 (four) times daily. [facility] ofloxacin (OCUFLOX) 0.3 % ophthalmic solution 2018-11 00:00: 00 Yes [id number] 1[drp] Place 1 Drop in right eye 3 (three) times daily. [facility] prednisoLON E acetate 1 % ophthalmic suspension drops 2018-11 00:00: 00 Yes [id number] 1[drp] Place 1 Drop in right eye 4 (four) times daily. [facility] ofloxacin (OCUFLOX) 0.3 % ophthalmic solution 2018-11 00:00: 00 Yes [id number] 1[drp] Place 1 Drop in right eye 3 (three) times daily. [facility] prednisoLON E acetate 1 % ophthalmic suspension drops 2018-11 00:00: 00 Yes [id number] 1[drp] Place 1 Drop in right eye 4 (four) times daily. [facility] prednisoLON E acetate 1 % ophthalmic suspension drops 2018-11 00:00: 00 Yes [id number] 1[drp] Place 1 Drop in right eye 4 (four) times daily. [facility] ofloxacin (OCUFLOX) 0.3 % ophthalmic solution 2018-11 00:00: 00 Yes [id number] 1[drp] Place 1 Drop in right eye 3 (three) times daily. [facility] ofloxacin (OCUFLOX) 0.3 % ophthalmic solution 2018-11 00:00: 00 Yes [id number] 1[drp] Place 1 Drop in right eye 3 (three) times daily. [facility] prednisoLON E acetate 1 % ophthalmic suspension drops 2018-11 00:00: 00 Yes [id number] 1[drp] Place 1 Drop in right eye 4 (four) times daily. [facility] ofloxacin (OCUFLOX) 0.3 % ophthalmic solution 2018-11 00:00: 00 Yes [id number] 1[drp] Place 1 Drop in right eye 3 (three) times daily. [facility] prednisoLON E acetate 1 % ophthalmic suspension drops 2018-11 00:00: 00 Yes [id number] 1[drp] Place 1 Drop in right eye 4 (four) times daily. [facility] ofloxacin (OCUFLOX) 0.3 % ophthalmic solution 2018-11 00:00: 00 Yes [id number] 1[drp] Place 1 Drop in right eye 3 (three) times daily. [facility] prednisoLON E acetate 1 % ophthalmic suspension drops 2018-11 00:00: 00 Yes [id number] 1[drp] Place 1 Drop in right eye 4 (four) times daily. [facility] ofloxacin (OCUFLOX) 0.3 % ophthalmic solution 2018-11 00:00: 00 Yes [id number] 1[drp] Place 1 Drop in right eye 3 (three) times daily. [facility] prednisoLON E acetate 1 % ophthalmic suspension drops 2018-11 00:00: 00 Yes [id number] 1[drp] Place 1 Drop in right eye 4 (four) times daily. [facility] ofloxacin (OCUFLOX) 0.3 % ophthalmic solution 2018-11 00:00: 00 Yes [id number] 1[drp] Place 1 Drop in right eye 3 (three) times daily. [facility] prednisoLON E acetate 1 % ophthalmic suspension drops 2018-11 00:00: 00 Yes [id number] 1[drp] Place 1 Drop in right eye 4 (four) times daily. [facility] ofloxacin (OCUFLOX) 0.3 % ophthalmic solution 2018-11 00:00: 00 Yes [id number] 1[drp] Place 1 Drop in right eye 3 (three) times daily. [facility] prednisoLON E acetate 1 % ophthalmic suspension drops 2018-11 00:00: 00 Yes [id number] 1[drp] Place 1 Drop in right eye 4 (four) times daily. [facility] ofloxacin (OCUFLOX) 0.3 % ophthalmic solution 2018-11 00:00: 00 Yes [id number] 1[drp] Place 1 Drop in right eye 3 (three) times daily. [facility] prednisoLON E acetate 1 % ophthalmic suspension drops 2018-11 00:00: 00 Yes [id number] 1[drp] Place 1 Drop in right eye 4 (four) times daily. [facility] ofloxacin (OCUFLOX) 0.3 % ophthalmic solution 2018-11 00:00: 00 Yes [id number] 1[drp] Place 1 Drop in right eye 3 (three) times daily. [facility] prednisoLON E acetate 1 % ophthalmic suspension drops 2018-11 00:00: 00 Yes [id number] 1[drp] Place 1 Drop in right eye 4 (four) times daily. [facility] ofloxacin (OCUFLOX) 0.3 % ophthalmic solution 2018-11 00:00: 00 Yes [id number] 1[drp] Place 1 Drop in right eye 3 (three) times daily. [facility] prednisoLON E acetate 1 % ophthalmic suspension drops 2018-11 00:00: 00 Yes [id number] 1[drp] Place 1 Drop in right eye 4 (four) times daily. [facility] prednisoLON E acetate 1 % ophthalmic suspension drops 2018-11 00:00: 00 Yes [id number] 1[drp] Place 1 Drop in right eye 4 (four) times daily. [facility] ofloxacin (OCUFLOX) 0.3 % ophthalmic solution 2018-11 00:00: 00 Yes [id number] 1[drp] Place 1 Drop in right eye 3 (three) times daily. [facility] ofloxacin (OCUFLOX) 0.3 % ophthalmic solution 2018-11 00:00: 00 Yes [id number] 1[drp] Place 1 Drop in right eye 3 (three) times daily. [facility] prednisoLON E acetate 1 % ophthalmic suspension drops 2018-11 00:00: 00 Yes [id number] 1[drp] Place 1 Drop in right eye 4 (four) times daily. [facility] ofloxacin (OCUFLOX) 0.3 % ophthalmic solution 2018-11 00:00: 00 Yes [id number] 1[drp] Place 1 Drop in right eye 3 (three) times daily. [facility] prednisoLON E acetate 1 % ophthalmic suspension drops 2018-11 00:00: 00 Yes [id number] 1[drp] Place 1 Drop in right eye 4 (four) times daily. [facility] ofloxacin (OCUFLOX) 0.3 % ophthalmic solution 2018-11 00:00: 00 Yes [id number] 1[drp] Place 1 Drop in right eye 3 (three) times daily. [facility] aspirin 81 mg EC tablet 2018-11 00:00: 00 Yes [id number] 81mg Take 1 tablet by mouth daily. [facility] Insulin [place], Disposable, (PHUC PEN NEEDLE) 32 gauge x 5/32" Ndle 2018-11 00:00: 00 Yes [id number] Use as directed [facility] aspirin 81 mg EC tablet 2018-11 00:00: 00 Yes [id number] 81mg Take 1 tablet by mouth daily. [facility] Insulin [place], Disposable, (PHUC PEN NEEDLE) 32 gauge x 5/32" Ndle 2018-11 00:00: 00 Yes [id number] Use as directed [facility] tablet 2018-11 00:00: 00 Yes [id number] 81mg Take 1 tablet by mouth daily. [facility] Insulin [place], Disposable, (PHUC PEN NEEDLE) 32 gauge x 5/32" Nd 2018-11 00:00: 00 Yes [id number] Use as directed [facility] 81 mg EC tablet 2018-11 00:00: 00 Yes [id number] 81mg Take 1 tablet by mouth daily. [facility] Insulin [place], Disposable, (PHUC PEN NEEDLE) 32 gauge x 5/32" [facility] 2018-11 00:00: 00 Yes [id number] Use as directed [facility] aspirin 81 mg EC tablet 2018-11 00:00: 00 Yes [id number] 81mg Take 1 tablet by mouth daily. [facility] Insulin [place], Disposable, (PHUC PEN NEEDLE) 32 gauge x 5/32" Nd 2018-11 00:00: 00 Yes [id number] Use as directed [facility] aspirin 81 mg EC tablet 2018-11 00:00: 00 Yes [id number] 81mg Take 1 tablet by mouth daily. [facility] Insulin [place], Disposable, (PHUC PEN NEEDLE) 32 gauge x 5/32" [facility] 2018-11 00:00: 00 Yes [id number] Use as directed [facility] aspirin 81 mg EC tablet 2018-11 00:00: 00 Yes [id number] 81mg Take 1 tablet by mouth daily. [facility] Insulin [place], Disposable, (PHUC PEN NEEDLE) 32 gauge x 5/32" Nd 2018-11 00:00: 00 Yes [id number] Use as directed [facility] aspirin 81 mg EC tablet 2018-11 00:00: 00 Yes [id number] 81mg Take 1 tablet by mouth daily. [facility] Insulin [place], Disposable, (PHUC PEN NEEDLE) 32 gauge x 5/32" Ndle 2018-11 00:00: 00 Yes [id number] Use as directed [facility] 81 mg EC tablet 2018-11 00:00: 00 Yes [id number] 81mg Take 1 tablet by mouth daily. [facility] Insulin [place], Disposable, (PHUC PEN NEEDLE) 32 gauge x 5/32" Ndle 2018-11 00:00: 00 Yes [id number] Use as directed [facility] aspirin 81 mg EC tablet 2018-11 00:00: 00 Yes [id number] 81mg Take 1 tablet by mouth daily. [facility] Insulin [place], Disposable, (PHUC PEN NEEDLE) 32 gauge x 5/32" [facility] 2018-11 00:00: 00 Yes [id number] Use as directed [facility] aspirin 81 mg EC tablet 2018-11 00:00: 00 Yes [id number] 81mg Take 1 tablet by mouth daily. [facility] Insulin [place], Disposable, (PHUC PEN NEEDLE) 32 gauge x 5/32" Nd 2018-11 00:00: 00 Yes [id number] Use as directed [facility] aspirin 81 mg EC tablet 2018-11 00:00: 00 Yes [id number] 81mg Take 1 tablet by mouth daily. [facility] Insulin [place], Disposable, (PHUC PEN NEEDLE) 32 gauge x 5/32" Nd 2018-11 00:00: 00 Yes [id number] Use as directed [facility] 81 mg EC tablet 2018-11 00:00: 00 Yes [id number] 81mg Take 1 tablet by mouth daily. [facility] [facility] [place], Disposable, (PHUC PEN NEEDLE) 32 gauge x 5/32" Ndle 2018-11 00:00: 00 Yes [id number] Use as directed [facility] aspirin 81 mg EC tablet 2018-11 00:00: 00 Yes [id number] 81mg Take 1 tablet by mouth daily. [facility] ity [facility] Insulin Free [place], Disposable, (PHUC PEN NEEDLE) 32 gauge x 5/32" Ndle 2018-11 00:00: 00 Yes [id number] Use as directed [facility] aspirin 81 mg EC tablet 2018-11 00:00: 00 Yes [id number] 81mg Take 1 tablet by mouth daily. [facility] ity [facility] Insulin Free [place], Disposable, (PHUC PEN NEEDLE) 32 gauge x 5/32" Ndle 2018-11 00:00: 00 Yes [id number] Use as directed [facility] aspirin 81 mg EC tablet 2018-11 00:00: 00 Yes [id number] 81mg Take 1 tablet by mouth daily. [facility] ity [facility] Insulin [place], Disposable, (PHUC PEN NEEDLE) 32 gauge x 5/32" Ndle 2018-11 00:00: 00 Yes [id number] Use [facility] tablet 2018-11 00:00: 00 Yes [id number] 81mg Take 1 tablet by mouth daily. [facility] Insulin [place], Disposable, (PHUC PEN NEEDLE) 32 gauge x 5/32" Ndle 2018-11 00:00: 00 Yes [id number] Use as directed [facility] aspirin 81 mg EC tablet 2018-11 00:00: 00 Yes [id number] 81mg Take 1 tablet by mouth daily. [facility] [place], Disposable, (PHUC PEN NEEDLE) 32 gauge x 5/32" Ndle 2018-11 00:00: 00 Yes [id number] Use as directed [facility] 81 mg EC tablet 2018-11 00:00: 00 Yes [id number] 81mg Take 1 tablet by mouth daily. [facility] ity [facility] Insulin Free [place], Disposable, (PHUC PEN NEEDLE) 32 gauge x 5/32" Ndle 2018-11 00:00: 00 Yes [id number] Use as directed [facility] 81 mg EC tablet 2018-11 00:00: 00 Yes [id number] 81mg Take 1 tablet by mouth daily. [facility] ity [facility] Insulin [place], Disposable, (PHUC PEN NEEDLE) 32 gauge x 5/32" [facility] 2018-11 00:00: 00 Yes [id number] Use as directed [facility] aspirin 81 mg EC tablet 2018-11 00:00: 00 Yes [id number] 81mg Take 1 tablet by mouth daily. [facility] Insulin Free [place], Disposable, (PHUC PEN NEEDLE) 32 gauge x 5/32" [facility] 2018-11 00:00: 00 Yes [id number] Use as directed [facility] aspirin 81 mg EC tablet 2018-11 00:00: 00 Yes [id number] 81mg Take 1 tablet by mouth daily. [facility] Insulin Free [place], Disposable, (PHUC PEN NEEDLE) 32 gauge x 5/32" [facility] 2018-11 00:00: 00 Yes [id number] Use as directed [facility] aspirin 81 mg EC tablet 2018-11 00:00: 00 Yes [id number] 81mg Take 1 tablet by mouth daily. [facility] Insulin Free [place], Disposable, (PHUC PEN NEEDLE) 32 gauge x 5/32" [facility] 2018-11 00:00: 00 Yes [id number] Use as directed [facility] aspirin 81 mg EC tablet 2018-11 00:00: 00 07-09 00:00 :00 No [id number] 81mg Take 1 tablet by mouth daily. [facility] Insulin [place], Disposable, (PHUC PEN NEEDLE) 32 gauge x 5/32" [facility] 2018-11 00:00: 00 07-09 00:00 :00 No [id number] Use as directed [facility] lactobacill us comb no.10 (PROBIOTIC) 20 billion cell Cap 06-10 00:00: 00 Yes [id number] 1{capsu le} Take 1 capsule by mouth 2 (two) times daily. [facility] lactobacill us comb no.10 (PROBIOTIC) 20 billion cell Cap 06-10 00:00: 00 Yes [id number] 1{capsu le} Take 1 capsule by mouth 2 (two) times daily. [facility] lactobacill us comb no.10 (PROBIOTIC) 20 billion cell Cap 06-10 00:00: 00 Yes [id number] 1{capsu le} Take 1 capsule by mouth 2 (two) times daily. [facility] lactobacill us comb no.10 (PROBIOTIC) 20 billion cell Cap 06-10 00:00: 00 Yes [id number] 1{capsu le} Take 1 capsule by mouth 2 (two) times daily. [facility] lactobacill us comb no.10 (PROBIOTIC) 20 billion cell Cap 06-10 00:00: 00 Yes [id number] 1{capsu le} Take 1 capsule by mouth 2 (two) times daily. [facility] lactobacill us comb no.10 (PROBIOTIC) 20 billion cell Cap 06-10 00:00: 00 Yes [id number] 1{capsu le} Take 1 capsule by mouth 2 (two) times daily. [facility] lactobacill us comb no.10 (PROBIOTIC) 20 billion cell Cap 06-10 00:00: 00 Yes [id number] 1{capsu le} Take 1 capsule by mouth 2 (two) times daily. [facility] lactobacill us comb no.10 (PROBIOTIC) 20 billion cell Cap 06-10 00:00: 00 Yes [id number] 1{capsu le} Take 1 capsule by mouth 2 (two) times daily. [facility] lactobacill us comb no.10 (PROBIOTIC) 20 billion cell Cap 06-10 00:00: 00 Yes [id number] 1{capsu le} Take 1 capsule by mouth 2 (two) times daily. [facility] lactobacill us comb no.10 (PROBIOTIC) 20 billion cell Cap 06-10 00:00: 00 Yes [id number] 1{capsu le} Take 1 capsule by mouth 2 (two) times daily. [facility] lactobacill us comb no.10 (PROBIOTIC) 20 billion cell Cap 06-10 00:00: 00 Yes [id number] 1{capsu le} Take 1 capsule by mouth 2 (two) times daily. [facility] lactobacill us comb no.10 (PROBIOTIC) 20 billion cell Cap 06-10 00:00: 00 Yes [id number] 1{capsu le} Take 1 capsule by mouth 2 (two) times daily. [facility] lactobacill us comb no.10 (PROBIOTIC) 20 billion cell Cap 06-10 00:00: 00 Yes [id number] 1{capsu le} Take 1 capsule by mouth 2 (two) times daily. [facility] lactobacill us comb no.10 (PROBIOTIC) 20 billion cell Cap 06-10 00:00: 00 Yes [id number] 1{capsu le} Take 1 capsule by mouth 2 (two) times daily. [facility] lactobacill us comb no.10 (PROBIOTIC) 20 billion cell Cap 06-10 00:00: 00 Yes [id number] 1{capsu le} Take 1 capsule by mouth 2 (two) times daily. [facility] lactobacill us comb no.10 (PROBIOTIC) 20 billion cell Cap 06-10 00:00: 00 Yes [id number] 1{capsu le} Take 1 capsule by mouth 2 (two) times daily. [facility] lactobacill us comb no.10 (PROBIOTIC) 20 billion cell Cap 06-10 00:00: 00 Yes [id number] 1{capsu le} Take 1 capsule by mouth 2 (two) times daily. [facility] lactobacill us comb no.10 (PROBIOTIC) 20 billion cell Cap 06-10 00:00: 00 Yes [id number] 1{capsu le} Take 1 capsule by mouth 2 (two) times daily. [facility] lactobacill us comb no.10 (PROBIOTIC) 20 billion cell Cap 06-10 00:00: 00 Yes [id number] 1{capsu le} Take 1 capsule by mouth 2 (two) times daily. [facility] lactobacill us comb no.10 (PROBIOTIC) 20 billion cell Cap 06-10 00:00: 00 Yes [id number] 1{capsu le} Take 1 capsule by mouth 2 (two) times daily. [facility] lactobacill us comb no.10 (PROBIOTIC) 20 billion cell Cap 06-10 00:00: 00 Yes [id number] 1{capsu le} Take 1 capsule by mouth 2 (two) times daily. [facility] lactobacill us comb no.10 (PROBIOTIC) 20 billion cell Cap 06-10 00:00: 00 Yes [id number] 1{capsu le} Take 1 capsule by mouth 2 (two) times daily. [facility] lactobacill us comb no.10 (PROBIOTIC) 20 billion cell Cap 06-10 00:00: 00 Yes [id number] 1{capsu le} Take 1 capsule by mouth 2 (two) times daily. [facility] lactobacill us comb no.10 (PROBIOTIC) 20 billion cell Cap 06-10 00:00: 00 07-09 00:00 :00 No [id number] 1{capsu le} Take 1 capsule by mouth 2 (two) times daily. [facility] simvastatin (ZOCOR) 40 mg tablet 05-30 00:00: 00 Yes [id number] 40mg Take 1 tablet by mouth at bedtime. [facility] lisinopril 10 mg tablet 05-30 00:00: 00 Yes [id number] 10mg Take 1 tablet by mouth daily. [facility] insulin NPH 100 unit/mL injection 05-30 00:00: 00 Yes [id number] 35U inject 35 Units under the skin every morning and evening. [facility] metFORMIN 500 mg tablet 05-30 00:00: 00 Yes [id number] 500mg Take 1 tablet by mouth 2 (two) times daily with meals. [facility] simvastatin (ZOCOR) 40 mg tablet 05-30 00:00: 00 Yes [id number] 40mg Take 1 tablet by mouth at bedtime. [facility] lisinopril 10 mg tablet 05-30 00:00: 00 Yes [id number] 10mg Take 1 tablet by mouth daily. [facility] insulin NPH 100 unit/mL injection 05-30 00:00: 00 Yes [id number] 35U inject 35 Units under the skin every morning and evening. [facility] metFORMIN 500 mg tablet 05-30 00:00: 00 Yes [id number] 500mg Take 1 tablet by mouth 2 (two) times daily with meals. [facility] simvastatin (ZOCOR) 40 mg tablet 05-30 00:00: 00 Yes [id number] 40mg Take 1 tablet by mouth at bedtime. [facility] lisinopril 10 mg tablet 05-30 00:00: 00 Yes [id number] 10mg Take 1 tablet by mouth daily. [facility] insulin NPH 100 unit/mL injection 05-30 00:00: 00 Yes [id number] 35U inject 35 Units under the skin every morning and evening. [facility] metFORMIN 500 mg tablet 05-30 00:00: 00 Yes [id number] 500mg Take 1 tablet by mouth 2 (two) times daily with meals. [facility] simvastatin (ZOCOR) 40 mg tablet 05-30 00:00: 00 Yes [id number] 40mg Take 1 tablet by mouth at bedtime. [facility] lisinopril 10 mg tablet 05-30 00:00: 00 Yes [id number] 10mg Take 1 tablet by mouth daily. [facility] insulin NPH 100 unit/mL injection 05-30 00:00: 00 Yes [id number] 35U inject 35 Units under the skin every morning and evening. [facility] metFORMIN 500 mg tablet 05-30 00:00: 00 Yes [id number] 500mg Take 1 tablet by mouth 2 (two) times daily with meals. [facility] simvastatin (ZOCOR) 40 mg tablet 05-30 00:00: 00 Yes [id number] 40mg Take 1 tablet by mouth at bedtime. [facility] lisinopril 10 mg tablet 05-30 00:00: 00 Yes [id number] 10mg Take 1 tablet by mouth daily. [facility] insulin NPH 100 unit/mL injection 05-30 00:00: 00 Yes [id number] 35U inject 35 Units under the skin every morning and evening. [facility] simvastatin (ZOCOR) 40 mg tablet 05-30 00:00: 00 Yes [id number] 40mg Take 1 tablet by mouth at bedtime. [facility] lisinopril 10 mg tablet 05-30 00:00: 00 Yes [id number] 10mg Take 1 tablet by mouth daily. [facility] insulin NPH 100 unit/mL injection 05-30 00:00: 00 Yes [id number] 35U inject 35 Units under the skin every morning and evening. [facility] simvastatin (ZOCOR) 40 mg tablet 05-30 00:00: 00 Yes [id number] 40mg Take 1 tablet by mouth at bedtime. [facility] lisinopril 10 mg tablet 05-30 00:00: 00 Yes [id number] 10mg Take 1 tablet by mouth daily. [facility] insulin NPH 100 unit/mL injection 05-30 00:00: 00 Yes [id number] 35U inject 35 Units under the skin every morning and evening. [facility] simvastatin (ZOCOR) 40 mg tablet 05-30 00:00: 00 Yes [id number] 40mg Take 1 tablet by mouth at bedtime. [facility] lisinopril 10 mg tablet 05-30 00:00: 00 Yes [id number] 10mg Take 1 tablet by mouth daily. [facility] insulin NPH 100 unit/mL injection 05-30 00:00: 00 Yes [id number] 35U inject 35 Units under the skin every morning and evening. [facility] simvastatin (ZOCOR) 40 mg tablet 05-30 00:00: 00 Yes [id number] 40mg Take 1 tablet by mouth at bedtime. [facility] lisinopril 10 mg tablet 05-30 00:00: 00 Yes [id number] 10mg Take 1 tablet by mouth daily. [facility] insulin NPH 100 unit/mL injection 05-30 00:00: 00 Yes [id number] 35U inject 35 Units under the skin every morning and evening. [facility] simvastatin (ZOCOR) 40 mg tablet 05-30 00:00: 00 Yes [id number] 40mg Take 1 tablet by mouth at bedtime. [facility] lisinopril 10 mg tablet 05-30 00:00: 00 Yes [id number] 10mg Take 1 tablet by mouth daily. [facility] insulin NPH 100 unit/mL injection 05-30 00:00: 00 Yes [id number] 35U inject 35 Units under the skin every morning and evening. [facility] simvastatin (ZOCOR) 40 mg tablet 05-30 00:00: 00 Yes [id number] 40mg Take 1 tablet by mouth at bedtime. [facility] lisinopril 10 mg tablet 05-30 00:00: 00 Yes [id number] 10mg Take 1 tablet by mouth daily. [facility] insulin NPH 100 unit/mL injection 05-30 00:00: 00 Yes [id number] 35U inject 35 Units under the skin every morning and evening. [facility] simvastatin (ZOCOR) 40 mg tablet 05-30 00:00: 00 Yes [id number] 40mg Take 1 tablet by mouth at bedtime. [facility] lisinopril 10 mg tablet 05-30 00:00: 00 Yes [id number] 10mg Take 1 tablet by mouth daily. [facility] insulin NPH 100 unit/mL injection 05-30 00:00: 00 Yes [id number] 35U inject 35 Units under the skin every morning and evening. [facility] simvastatin (ZOCOR) 40 mg tablet 05-30 00:00: 00 Yes [id number] 40mg Take 1 tablet by mouth at bedtime. [facility] lisinopril 10 mg tablet 05-30 00:00: 00 Yes [id number] 10mg Take 1 tablet by mouth daily. [facility] insulin NPH 100 unit/mL injection 05-30 00:00: 00 Yes [id number] 35U inject 35 Units under the skin every morning and evening. [facility] simvastatin (ZOCOR) 40 mg tablet 05-30 00:00: 00 Yes [id number] 40mg Take 1 tablet by mouth at bedtime. [facility] lisinopril 10 mg tablet 05-30 00:00: 00 Yes [id number] 10mg Take 1 tablet by mouth daily. [facility] insulin NPH 100 unit/mL injection 05-30 00:00: 00 Yes [id number] 35U inject 35 Units under the skin every morning and evening. [facility] simvastatin (ZOCOR) 40 mg tablet 05-30 00:00: 00 Yes [id number] 40mg Take 1 tablet by mouth at bedtime. [facility] lisinopril 10 mg tablet 05-30 00:00: 00 Yes [id number] 10mg Take 1 tablet by mouth daily. [facility] insulin NPH 100 unit/mL injection 05-30 00:00: 00 Yes [id number] 35U inject 35 Units under the skin every morning and evening. [facility] simvastatin (ZOCOR) 40 mg tablet 05-30 00:00: 00 Yes [id number] 40mg Take 1 tablet by mouth at bedtime. [facility] lisinopril 10 mg tablet 05-30 00:00: 00 Yes [id number] 10mg Take 1 tablet by mouth daily. [facility] insulin NPH 100 unit/mL injection 05-30 00:00: 00 Yes [id number] 35U inject 35 Units under the skin every morning and evening. [facility] simvastatin (ZOCOR) 40 mg tablet 05-30 00:00: 00 Yes [id number] 40mg Take 1 tablet by mouth at bedtime. [facility] lisinopril 10 mg tablet 05-30 00:00: 00 Yes [id number] 10mg Take 1 tablet by mouth daily. [facility] insulin NPH 100 unit/mL injection 05-30 00:00: 00 Yes [id number] 35U inject 35 Units under the skin every morning and evening. [facility] simvastatin (ZOCOR) 40 mg tablet 05-30 00:00: 00 Yes [id number] 40mg Take 1 tablet by mouth at bedtime. [facility] lisinopril 10 mg tablet 05-30 00:00: 00 Yes [id number] 10mg Take 1 tablet by mouth daily. [facility] insulin NPH 100 unit/mL injection 05-30 00:00: 00 Yes [id number] 35U inject 35 Units under the skin every morning and evening. [facility] simvastatin (ZOCOR) 40 mg tablet 05-30 00:00: 00 Yes [id number] 40mg Take 1 tablet by mouth at bedtime. [facility] lisinopril 10 mg tablet 05-30 00:00: 00 Yes [id number] 10mg Take 1 tablet by mouth daily. [facility] insulin NPH 100 unit/mL injection 05-30 00:00: 00 Yes [id number] 35U inject 35 Units under the skin every morning and evening. [facility] simvastatin (ZOCOR) 40 mg tablet 05-30 00:00: 00 Yes [id number] 40mg Take 1 tablet by mouth at bedtime. [facility] lisinopril 10 mg tablet 05-30 00:00: 00 Yes [id number] 10mg Take 1 tablet by mouth daily. [facility] insulin NPH 100 unit/mL injection 05-30 00:00: 00 Yes [id number] 35U inject 35 Units under the skin every morning and evening. [facility] simvastatin (ZOCOR) 40 mg tablet 05-30 00:00: 00 Yes [id number] 40mg Take 1 tablet by mouth at bedtime. [facility] lisinopril 10 mg tablet 05-30 00:00: 00 Yes [id number] 10mg Take 1 tablet by mouth daily. [facility] insulin NPH 100 unit/mL injection 05-30 00:00: 00 Yes [id number] 35U inject 35 Units under the skin every morning and evening. [facility] metFORMIN 500 mg tablet 05-30 00:00: 00 Yes [id number] 500mg Take 1 tablet by mouth 2 (two) times daily with meals. [facility] simvastatin (ZOCOR) 40 mg tablet 05-30 00:00: 00 Yes [id number] 40mg Take 1 tablet by mouth at bedtime. [facility] lisinopril 10 mg tablet 05-30 00:00: 00 Yes [id number] 10mg Take 1 tablet by mouth daily. [facility] insulin NPH 100 unit/mL injection 05-30 00:00: 00 Yes [id number] 35U inject 35 Units under the skin every morning and evening. [facility] metFORMIN 500 mg tablet 05-30 00:00: 00 Yes [id number] 500mg Take 1 tablet by mouth 2 (two) times daily with meals. [facility] simvastatin (ZOCOR) 40 mg tablet 05-30 00:00: 00 Yes [id number] 40mg Take 1 tablet by mouth at bedtime. [facility] lisinopril 10 mg tablet 05-30 00:00: 00 Yes [id number] 10mg Take 1 tablet by mouth daily. [facility] insulin NPH 100 unit/mL injection 05-30 00:00: 00 Yes [id number] 35U inject 35 Units under the skin every morning and evening. [facility] metFORMIN 500 mg tablet 05-30 00:00: 00 Yes [id number] 500mg Take 1 tablet by mouth 2 (two) times daily with meals. [facility] simvastatin (ZOCOR) 40 mg tablet 05-30 00:00: 00 07-09 00:00 :00 No [id number] 40mg Take 1 tablet by mouth at bedtime. [facility] lisinopril 10 mg tablet 05-30 00:00: 00 07-09 00:00 :00 No [id number] 10mg Take 1 tablet by mouth daily. [facility] insulin NPH 100 unit/mL injection 05-30 00:00: 00 07-09 00:00 :00 No [id number] 35U inject 35 Units under the skin every morning and evening. [facility] metFORMIN 500 mg tablet 05-30 00:00: 00 01-18 00:00 :00 No [id number] 500mg Take 1 tablet by mouth 2 (two) times daily with meals. [facility] metFORMIN 500 mg tablet 05-30 00:00: 01-18 00:00 :00 No [id number] 500mg Take 1 tablet by mouth 2 (two) times daily with meals. [facility] Vital Signs Vital Name Observation Time Observation Value Comments S cecilerahul Systolic blood pressure 2024-02-10 19:50:00 158 mm[Hg] [facility] Diastolic blood pressure 2024-02-10 19:50:00 87 mm[Hg] [facility] Heart rate 2024-02-10 19:50:00 86 /min [facility] acute hospital Respiratory rate 2024-02-10 19:50:00 18 /min [facility] Oxygen saturation in Arterial blood by Pulse oximetry 2024-02-10 19:50:00 96 /min [facility] Body temperature 2024-02-10 16:57:00 36.72 Ginny [facility] Body height 2024-02-10 16:57:00 177.8 cm [facility] Body weight 2024-02-10 16:57:00 99.791 kg [facility] BMI 2024-02-10 16:57:00 31.57 kg/m2 [facility] Systolic blood pressure 2024-02-09 22:00:00 143 mm[Hg] [facility] Diastolic blood pressure 2024-02-09 22:00:00 76 mm[Hg] [facility] Heart rate 2024-02-09 22:00:00 83 /min [facility] acute hospital Respiratory rate 2024-02-09 22:00:00 16 /min [facility] Oxygen saturation in Arterial blood by Pulse oximetry 2024-02-09 22:00:00 100 /min [facility] Body temperature 2024-02-09 19:02:00 35.94 Ginny [facility] Body height 2024-02-09 19:02:00 177.8 cm [facility] 2024-02-09 19:02:00 99.791 kg Univ [facility] BMI 2024-02-09 19:02:00 31.57 kg/m2 [facility] Systolic blood pressure 2024-02-06 14:26:00 163 mm[Hg] [facility] Diastolic blood pressure 2024-02-06 14:26:00 77 mm[Hg] [facility] Heart rate 2024-02-06 14:26:00 71 /min [facility] Body temperature 2024-02-06 14:26:00 36.61 Ginny [facility] Respiratory rate 2024-02-06 14:26:00 16 /min [facility] Body height 2024-02-06 14:26:00 165.1 cm Univ [facility] Body weight 2024-02-06 14:26:00 99.791 kg Univ [facility] BMI 2024-02-06 14:26:00 36.61 kg/m2 [facility] Oxygen saturation in Arterial blood by Pulse oximetry 2024-02-06 14:26:00 98 /min [facility] Systolic blood pressure 2024-01-30 16:05:00 150 mm[Hg] [facility] Diastolic blood pressure 2024-01-30 16:05:00 89 mm[Hg] [facility] Heart rate 2024-01-30 16:05:00 71 /min [facility] Body temperature 2024-01-30 16:05:00 37 Ginny [facility] Respiratory rate 2024-01-30 16:05:00 18 /min [facility] Body height 2024-01-30 16:05:00 177.8 cm Univ [facility] Body weight 2024-01-30 16:05:00 100.699 kg Univ [facility] BMI 2024-01-30 16:05:00 31.85 kg/m2 [facility] Oxygen saturation in Arterial blood by Pulse oximetry 2024-01-30 16:05:00 99 /min [facility] Systolic blood pressure 2024-01-15 03:18:00 150 mm[Hg] [facility] Diastolic blood pressure 2024-01-15 03:18:00 75 mm[Hg] [facility] Heart rate 2024-01-15 03:18:00 79 /min [facility] Body temperature 2024-01-15 03:18:00 36.5 Ginny [facility] Respiratory rate 2024-01-15 03:18:00 18 /min [facility] Body height 2024-01-15 03:18:00 177.8 cm Univ [facility] Body weight 2024-01-15 03:18:00 99.791 kg Univ [facility] BMI 2024-01-15 03:18:00 31.57 kg/m2 [facility] saturation in Arterial blood by Pulse oximetry 2024-01-15 03:18:00 98 /min [facility] Systolic blood pressure 2024-01-05 12:37:00 161 mm[Hg] [facility] Diastolic blood pressure 2024-01-05 12:37:00 76 mm[Hg] [facility] Heart rate 2024-01-05 12:37:00 76 /min [facility] Body temperature 2024-01-05 12:37:00 36.89 Ginny [facility] Respiratory rate 2024-01-05 12:37:00 18 /min [facility] Body height 2024-01-05 12:37:00 177.8 cm [facility] weight 2024-01-05 12:37:00 99.791 kg Univ [facility] BMI 2024-01-05 12:37:00 31.57 kg/m2 [facility] Oxygen saturation in Arterial blood by Pulse oximetry 2024-01-05 12:37:00 96 /min [facility] Systolic blood pressure 2021-07-10 22:35:00 173 mm[Hg] [facility] Diastolic blood pressure 2021-07-10 22:35:00 71 mm[Hg] [facility] Heart rate 2021-07-10 22:35:00 50 /min [facility] Body height 2021-07-10 22:35:00 177.8 cm [facility] Body weight 2021-07-10 22:35:00 114.306 kg [facility] BMI 2021-07-10 22:35:00 36.16 kg/m2 [facility] Oxygen saturation in Arterial blood by Pulse oximetry 2021-07-10 22:35:00 99 /min [facility] Systolic blood pressure 2021-07-10 15:12:00 173 mm[Hg] [facility] Diastolic blood pressure 2021-07-10 15:12:00 71 mm[Hg] [facility] Heart rate 2021-07-10 15:10:00 50 /min Unive [facility] Body height 2021-07-10 15:10:00 177.8 cm [facility] Body weight 2021-07-10 15:10:00 114.306 kg [facility] BMI 2021-07-10 15:10:00 36.16 kg/m2 [facility] Oxygen saturation in Arterial blood by Pulse oximetry 2021-07-10 15:10:00 99 /min [facility] Systolic blood pressure 2021-05-20 23:06:00 130 mm[Hg] [facility] Diastolic blood pressure 2021-05-20 23:06:00 76 mm[Hg] [facility] Heart rate 2021-05-20 23:05:00 67 /min Unive [facility] Body temperature 2021-05-20 23:05:00 36.33 Ginny [facility] Respiratory rate 2021-05-20 23:05:00 18 /min [facility] Body height 2021-05-20 23:05:00 177.8 cm [facility] Body weight 2021-05-20 23:05:00 112.583 kg [facility] BMI 2021-05-20 23:05:00 35.61 kg/m2 [facility] Oxygen saturation in Arterial blood by Pulse oximetry 2021-05-20 23:05:00 97 /min [facility] Systolic blood pressure 2021-02-14 21:09:00 153 mm[Hg] [facility] Diastolic blood pressure 2021-02-14 21:09:00 76 mm[Hg] [facility] Heart rate 2021-02-14 21:09:00 58 /min Unive [facility] Body temperature 2021-02-14 21:09:00 36.72 Ginny [facility] Respiratory rate 2021-02-14 21:09:00 18 /min [facility] Body weight 2021-02-14 21:09:00 115.667 kg [facility] BMI 2021-02-14 21:09:00 35.57 kg/m2 [facility] Oxygen saturation in Arterial blood by Pulse oximetry 2021-02-14 21:09:00 97 /min [facility] Systolic blood pressure 2020-04-12 14:51:00 126 mm[Hg] [facility] Diastolic blood pressure 2020-04-12 14:51:00 76 mm[Hg] [facility] Heart rate 2020-04-12 14:51:00 58 /min Unive [facility] Body temperature 2020-04-12 14:51:00 36.72 Ginny [facility] Respiratory rate 2020-04-12 14:51:00 18 /min [facility] Body height 2020-04-12 14:51:00 180.3 cm [facility] Body weight 2020-04-12 14:51:00 113.399 kg [facility] BMI 2020-04-12 14:51:00 34.87 kg/m2 [facility] Oxygen saturation in Arterial blood by Pulse oximetry 2020-04-12 14:51:00 98 /min [facility] Systolic blood pressure 2020-03-12 13:30:00 115 mm[Hg] [facility] Diastolic blood pressure 2020-03-12 13:30:00 81 mm[Hg] [facility] Heart rate 2020-03-12 13:30:00 51 /min Unive [facility] Respiratory rate 2020-03-12 13:30:00 20 /min [facility] Oxygen saturation in Arterial blood by Pulse oximetry 2020-03-12 13:30:00 97 /min [facility] Body temperature 2020-03-12 12:37:00 36.22 Ginny [facility] Body weight 2020-03-12 12:37:00 111.131 kg Univ [facility] BMI 2020-03-12 12:37:00 34.17 kg/m2 [facility] Systolic blood pressure 2020-01-18 13:42:00 136 mm[Hg] [facility] Diastolic blood pressure 2020-01-18 13:42:00 73 mm[Hg] [facility] Heart rate 2020-01-18 13:42:00 52 /min Unive [facility] Body temperature 2020-01-18 13:42:00 36.56 Ginny [facility] Respiratory rate 2020-01-18 13:42:00 18 /min [facility] Body height 2020-01-18 13:42:00 180.3 cm Univ [facility] Body weight 2020-01-18 13:42:00 113.309 kg [facility] BMI 2020-01-18 13:42:00 34.84 kg/m2 [facility] Oxygen saturation in Arterial blood by Pulse oximetry 2020-01-18 13:42:00 96 /min [facility] Systolic blood pressure 2019-12-30 17:24:00 154 mm[Hg] [facility] Diastolic blood pressure 2019-12-30 17:24:00 79 mm[Hg] [facility] Heart rate 2019-12-30 17:24:00 60 /min Unive [facility] Respiratory rate 2019-12-30 17:24:00 16 /min [facility] Oxygen saturation in Arterial blood by Pulse oximetry 2019-12-30 17:24:00 96 /min [facility] Body temperature 2019-12-30 16:55:00 36.39 Ginny [facility] Body height 2019-12-26 22:40:00 180.3 cm [facility] Body weight 2019-12-26 22:40:00 116.121 kg [facility] BMI 2019-12-26 22:40:00 35.72 kg/m2 [facility] Systolic blood pressure 2019-12-19 14:13:00 135 mm[Hg] [facility] Diastolic blood pressure 2019-12-19 14:13:00 72 mm[Hg] [facility] Heart rate 2019-12-19 14:11:00 56 /min [facility] Respiratory rate 2019-12-19 14:11:00 19 /min [facility] Body height 2019-12-19 14:11:00 180.3 cm [facility] Body weight 2019-12-19 14:11:00 117.935 kg [facility] BMI 2019-12-19 14:11:00 36.26 kg/m2 [facility] Oxygen saturation in Arterial blood by Pulse oximetry 2019-12-19 14:11:00 96 /min [facility] Procedures Procedure Date / Time Performed Performing Clinician Source COMP. METABOLIC PANEL (15613) 2024-02-10 17:52:[address] [facility] CBC WITH DIFF 2024-02-10 17:52:00 [place] [facility] URINALYSIS 2024-02-09 21:03:00 Tara Ireland [facility] CT HEAD WO CONTRAST 2024-02-09 20:02:00 Tara Ireland [facility] URINALYSIS 2024-02-06 15:15:00 [facility] XR LUMBAR SPINE 3 VW 2024-02-06 15:00:46 Rolly Muller [facility] CT ABDOMEN PELVIS WO CONTRAST 2024-01-30 18:58:58 Zo Green [facility] COMP. METABOLIC PANEL (37091) 2024-01-30 16:35:00 Zo Green [facility] CBC WITH DIFF 2024-01-30 16:35:00 Zo Green [facility] CONSENT/REFUSAL FOR DIAGNOSIS AND TREATMENT 2024-01-15 03:41:26 Doctor Unassigned, [place] [facility] ASSIGNMENT OF BENEFITS 2024-01-15 03:35:20 Docto r Unassigned, [place] [facility] ASSIGNMENT OF BENEFITS 2021-05-20 22:59:18 Docto r Unassigned, [place] [facility] CONSENT/REFUSAL FOR DIAGNOSIS AND TREATMENT 2021-02-14 21:51:32 Doctor Unassigned, [place] [facility] ASSIGNMENT OF BENEFITS 2021-02-14 21:50:52 Docto r Unassigned, [place] [facility] XR TIBIA FIBULA 2 VW RIGHT 2020-03-12 13:27:36 Chelle Fernandez [facility] XR LUMBAR SPINE 3 VW 2020-02-16 18:44:17 Basim Hayes [facility] ASSIGNMENT OF BENEFITS 2020-02-16 17:58:39 Docto r Unassigned, [place] [facility] COLONOSCOPY (ENDO) 2019-12-30 15:52:18 Joel Hayes [facility] POCT GLUCOSE(AGE >30DAYS) 2019-12-30 13:50:00 Yesenia Pope [facility] DAY SURGERY - ADC 2019-12-30 06:01:00 Doctor Ileana ssigned, [place] [facility] Encounters Start Date/Time End Date/Time Encounter Type Admission Type Attending [facility] Care Facility Care Department Encounter ID Source 2024-02-10 11:58:00 2024-02-10 15:10:00 Emergency X DAVID WHITE [facility] ERT [id number] [facility] 2024-02-10 11:58:00 2024-02-10 15:10:00 Emergency David White [facility] 1.2.840.114 350.1.13.10 4.2.7.2.686 [id number] [facility] 2024-02-09 14:01:00 2024-02-09 21:19:00 Emergency X TARA IRELAND [facility] ERT [id number] [facility] 2024-02-09 14:01:00 2024-02-09 21:19:00 Emergency Tara Ireland [facility] 1.2.840.114 350.1.13.10 4.2.7.2.686 [id number] [facility] 2024-02-06 09:21:00 2024-02-06 11:51:00 Emergency X DESTINY MULLER [facility] ERT [id number] [facility] 2024-02-06 09:21:00 2024-02-06 11:51:00 Emergency Destiny Muller [facility] 1.2.840.114 350.1.13.10 4.2.7.2.686 [id number] [facility] 2024-01-30 10:06:00 2024-01-30 15:02:00 Emergency X ZO GEREN [facility] ERT [id number] [facility] 2024-01-30 10:06:00 2024-01-30 15:02:00 Emergency AlpaZo tubbs [facility] 1.2.840.114 350.1.13.10 4.2.7.2.686 [id number] [facility] 2024-01-14 21:21:00 2024-01-14 21:48:00 Emergency X SILAS GREENE SALMIN [facility] ERT [id number] [facility] 2024-01-14 21:21:00 2024-01-14 21:48:00 Emergency [place] [facility] 1.2.840.114 350.1.13.10 4.2.7.2.686 [id number] [facility] 2024-01-05 06:39:00 2024-01-05 07:57:00 Emergency X JACKIE DIAZ [facility] ERT [id number] [facility] 2024-01-05 06:39:00 2024-01-05 07:57:00 Emergency Jackie Diaz [facility] 1.2.840.114 350.1.13.10 4.2.7.2.686 [id number] [facility] 2022-12-29 13:30:00 2022-12-29 14:30:00 CAV Lorene Stein 2.16.840. [id number] 2.16.840.1. [id number] [facility] 2022-10-17 00:00:00 2022-10-17 00:00:00 Outpatient DMG DM [id number] [facility] 2022-10-17 00:00:00 2022-10-17 00:00:00 Outpatient DMG DM [id number] [id number] [facility] 2022-09-07 00:00:00 2022-09-07 00:00:00 Outpatient DMG DM [id number] [facility] 2022-08-21 00:00:00 2022-08-21 00:00:00 Tl Guzman [facility] 1.2.840.114 350.1.13.10 4.2.7.2.686 [id number] [facility] 2022-02-17 00:00:00 2022-02-17 00:00:00 Tl Guzman [facility] 1.2.840.114 350.1.13.10 4.2.7.2.686 [id number] [facility] 2021-11-06 10:40:00 2021-11-06 10:40:00 Outpatient TL MCCAULEY [facility] [id number] [facility] 2021-10-28 00:00:00 2021-10-28 00:00:00 Tl Guzman [facility] 1.2.840.114 350.1.13.10 4.2.7.2.686 [id number] [facility] 2021-10-03 00:00:00 2021-10-03 00:00:00 Tl Guzman [facility] 1.2.840.114 350.1.13.10 4.2.7.2.686 [id number] [id number] [facility] 2021-09-09 00:00:00 2021-09-09 00:00:00 Telephone Georgina Garcia [facility] 1.2.840.114 350.1.13.10 4.2.7.2.686 [id number] [facility] 2021-07-18 00:00:00 2021-07-18 00:00:00 Patient Secure Msg Doctor Unassigned, [place] [facility] 1.2.840.114 350.1.13.10 4.2.7.2.686 [id number] [facility] 2021-07-12 00:00:00 2021-07-12 00:00:00 Telephone Tl Hayes [facility] 1.2.840.114 350.1.13.10 4.2.7.2.686 [id number] [id number] [facility] 2021-07-10 15:55:33 2021-07-10 15:55:44 Office Visit Tl Hayes [facility] 1.2.840.114 350.1.13.10 4.2.7.2.686 [id number] [facility] 2021-07-10 09:55:19 2021-07-10 11:00:50 Office Visit Tl Hayes [facility] 1.2.840.114 350.1.13.10 4.2.7.2.686 [id number] [facility] 2021-07-10 10:00:00 2021-07-10 10:00:00 Outpatient R TL HAYES [facility] [id number] [facility] 2021-07-09 00:00:00 2021-07-09 00:00:00 Telephone Tl Hayes [facility] Building 1..840.114 350.1.13.10 4.2.7.2.686 [id number] [facility] 2021-06-19 00:00:00 2021-06-19 00:00:00 Refill Tl Hayes [facility] Building 1..840.114 350.1.13.10 4.2.7.2.686 [id number] [facility] 2021-05-20 17:59:38 2021-05-20 18:39:03 Urgent Care Provider, [facility] Urgent Care Dayne Lesli [facility] Office Building One 1..840.114 350.1.13.10 4.2.7.2.686 [id number] [facility] 2021-05-20 18:20:00 2021-05-20 18:20:00 Outpatient R [facility] [id number] [facility] 2021-05-20 00:00:00 2021-05-20 00:00:00 Orders Only Doctor Unassigned, [place] [facility] 1.840.114 350.1.13.10 4.2.7.2.686 [id number] [facility] 2021-05-16 00:00:00 2021-05-16 00:00:00 Refill Abigail [facility] Building 1.2840.114 350.1.13.10 4.2.7.2.686 [id number] [facility] 2021-02-14 16:53:57 2021-02-14 17:08:57 Chief Technician Visit Pob, 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 AbigailTl [facility] Building 1.2840.114 350.1.13.10 4.2.7.2.686 [id number] [facility] 2021-02-14 15:55:11 2021-02-14 16:27:03 Office Visit Rosa ElenahannahTl [facility] 1.2840.114 350.1.13.10 4.2.7.2.686 [id number] [facility] 2021-02-14 16:00:00 2021-02-14 16:00:00 Outpatient R TL HAYES [facility] [id number] [facility] 2021-02-14 00:00:00 2021-02-14 00:00:00 Orders Only Doctor Unassigned, [place] [facility] 1.2840.114 350.1.13.10 4.2.7.2.686 [id number] [facility] 2021-02-08 00:00:00 2021-02-08 00:00:00 Refill ScoobychrissyTl huerta [facility] 1.2840.114 350.1.13.10 4.2.7.2.686 [id number] [facility] 2021-01-28 00:00:00 2021-01-28 00:00:00 Telephone Tl Hayes [facility] 1.2840.114 350.1.13.10 4.2.7.2.686 [id number] [facility] 2021-01-22 00:00:00 2021-01-22 00:00:00 Telephone ScoobychrissyTl huerta [facility] 1.2.840.114 350.1.13.10 4.2.7.2.686 [id number] [facility] 2021-01-21 00:00:00 2021-01-21 00:00:00 Refill Tl Hayes [facility] 1.2.840.114 350.1.13.10 4.2.7.2.686 [id number] [facility] 2020-10-31 13:30:00 2020-10-31 13:30:00 Outpatient R NIMISHA YING [facility] [id number] [facility] 2020-10-09 14:40:00 2020-10-09 14:40:00 Outpatient R TL HAYES [facility] [id number] [facility] 2020-09-24 09:20:00 2020-09-24 09:20:00 Outpatient R KUNAL JOEL [facility] [id number] [facility] 2020-07-09 09:20:00 2020-07-09 09:20:00 Outpatient R TL HAYES [facility] [id number] [facility] 2020-07-09 08:17:40 2020-07-09 08:37:40 Telemedici ne Visit Tl Hayes [facility] 1.2.840.114 350.1.13.10 4.2.7.2.686 [id number] [facility] 2020-06-28 00:00:00 2020-06-28 00:00:00 Refill Darrell Maxwell [facility] 1.2.840.114 350.1.13.10 4.2.7.2.686 [id number] [facility] 2020-04-19 08:00:00 2020-04-19 08:00:00 Outpatient R TL HAYES [facility] [id number] [facility] 2020-04-12 09:46:54 2020-04-12 10:06:54 Urgent Care Provider, [facility] Urgent Care [facility]ad [facility] Building One 1.2.840.114 350.1.13.10 4.2.7.2.686 [id number] [facility] 2020-04-12 10:00:00 2020-04-12 10:00:00 Outpatient R YOSSI PRASAD [facility] [id number] [facility] 2020-04-09 00:00:00 2020-04-09 00:00:00 Telephone Tl Hayes [facility] Building 1.2.840.114 350.1.13.10 4.2.7.2.686 [id number] [facility] 2020-04-05 00:00:00 2020-04-05 00:00:00 Telephone Tl Hayes [facility] Building 1.2.840.114 350.1.13.10 4.2.7.2.686 [id number] [facility] 2020-03-16 10:02:04 2020-03-16 10:02:51 Terrazzo Worker Apprentice [facility] 1.2.840.114 350.1.13.10 4.2.7.2.686 [id number] [facility] 2020-03-15 15:00:00 2020-03-15 15:00:00 [facility] [id number] [facility] 2020-03-14 16:30:00 2020-03-14 16:30:00 Outpatient R DARRELL BECKFORD [facility] [id number] [facility] 2020-03-14 15:42:00 2020-03-14 15:57:00 Telemedici ne Visit Darrell Beckford [facility] 1.2.840.114 350.1.13.10 4.2.7.2.686 [id number] [facility] 2020-03-14 00:00:00 2020-03-14 00:00:00 Telephone Tl Hayes [facility] 1.2840.114 350.1.13.10 4.2.7.2.686 [id number] [facility] 2020-03-12 07:53:07 2020-03-12 08:57:00 Emergency Chelle Fernandez [facility] 1.2840.114 350.1.13.10 4.2.7.2.686 [id number] [facility] 2020-03-12 07:53:07 2020-03-12 08:57:00 Emergency X CHELLE FERNANDEZ [facility] ERT [id number] [facility] 2020-03-08 15:00:00 2020-03-08 15:00:00 Outpatient R IDALIAMANINDERDEBRA [facility] [id number] [facility] 2020-02-28 13:00:00 2020-02-28 13:00:00 Outpatient R TL HAYES [facility] [id number] [facility] 2020-02-28 07:16:07 2020-02-28 07:56:07 Telemedici ne Visit Tl Hayes [facility] 1.2840.114 350.1.13.10 4.2.7.2.686 [id number] [facility] 2020-02-23 00:00:00 2020-02-23 00:00:00 Telephone Tl Hayes [facility] 1.20.114 350.1.13.10 4.2.7.2.686 [id number] [facility] 2020-02-16 12:59:15 2020-02-16 23:59:00 Outpatient R TL HAYES [facility] [id number] [facility] 2020-02-16 12:59:00 2020-02-16 23:59:00 Hospital Encounter Tl Hayes [facility] 1.2.840.114 350.1.13.10 4.2.7.2.686 [id number] [facility] 2020-02-16 00:00:00 2020-02-16 00:00:00 Orders Only Doctor Unassigned, [place] [facility] 1.2.840.114 350.1.13.10 4.2.7.2.686 [id number] [facility] 2020-02-16 00:00:00 2020-02-16 00:00:00 Telephone Abigail [facility] Building 1.2.840.114 350.1.13.10 4.2.7.2.686 [id number] [facility] 2020-01-18 07:23:58 2020-01-18 08:32:20 Office Visit Abigail [facility] Building 1.2.840.114 350.1.13.10 4.2.7.2.686 [id number] [facility] 2020-01-18 07:20:00 2020-01-18 07:20:00 Outpatient R TL HAYES [facility] [id number] [facility] 2020-01-18 00:00:00 2020-01-18 00:00:00 Letter (Out) Doctor Unassigned, [place] [facility] 1.2.840.114 350.1.13.10 4.2.7.2.686 [id number] [facility] 2020-01-07 00:00:00 2020-01-07 00:00:[address] [facility] Professio nal Building 1.2.840.114 350.1.13.10 4.2.7.2.686 [id number] [facility] 2020-01-04 00:00:00 2020-01-04 00:00:00 Telephone Tl Hayes [facility] Building 1.2.840.114 350.1.13.10 4.2.7.2.686 [id number] [facility] 2019-12-30 07:35:00 2019-12-30 11:49:00 Hospital Encounter Glo Finn [facility] 1.2.840.114 350.1.13.10 4.2.7.2.686 [id number] [facility] 2019-12-30 07:35:00 2019-12-30 11:49:00 Outpatient R GLO FINN [facility] [id number] [facility] 2019-12-30 00:00:00 2019-12-30 00:00:00 Orders Only Doctor Unassigned, [place] [facility] 1.2.840.114 350.1.13.10 4.2.7.2.686 [id number] [facility] 2019-12-19 08:02:28 2019-12-19 09:08:19 Office Visit Kendall Campa [facility] Building 1.2.840.114 350.1.13.10 4.2.7.2.686 [id number] [facility] 2019-12-01 15:15:00 2019-12-01 15:15:00 Outpatient JOCELYN CHAPPELL [facility] [id number] [facility] 2019-10-26 14:45:00 2019-10-26 15:36:20 Outpatient R NIMISHA YING [facility] [id number] [facility] 2019-06-10 10:30:00 2019-06-10 12:20:48 Outpatient R TL HAYES [facility] [id number] [facility] 2019-05-30 14:20:00 2019-05-30 17:18:22 Outpatient R DARRELL MAXWELL III [facility] [id number] [facility] 2019-05-24 08:45:00 2019-05-24 08:45:00 Outpatient R MARIAMA SOMERS [facility] [id number] [facility] 2019-04-26 08:30:00 2019-04-26 09:03:15 Outpatient MARIAMA REAL [facility] [id number] [facility] Results Test Description Test Time Test Comments Results Result Co mments Source [facility] with Uiii1588-33-00 18:13:28* Test Item Value Reference Range Interpretation Comme nts WBC (test code = 6690-2) 11.23 4.20-10.70 H RBC (test code = 789-8) 4.56 4.26-5.52 HGB (test code = 718-7) 13.8 g/dL 12.2-16.4 HCT (test code = 4544-3) 40.7 % 38.4-49.3 MCV (test code = 787-2) 89.3 fL 81.7-95.6 MCH (test code = 785-6) 30.3 pg 26.1-32.7 MCHC (test code = 786-4) 33.9 g/dL 31.2-35.0 RDW-SD (test code = 41203-3) 42.0 fL 38.5-51.6 RDW-CV (test code = 788-0) 12.9 % 12.1-15.4 PLT (test code = 777-3) 287 150-328 MPV (test code = 07196-3) 9.4 fL 9.8-13.0 L NRBC/100 WBC (test code = 0528574172) 0.0 0.0-10.0 NRBC x10^3 (test code = 6769449052) See_Comment [Automated messa ge] The system which generated this result transmitted reference range: 10*3/?L. The reference range was not used to interpret this result as normal/abnormal. GRAN MAT (NEUT) % (test code = 770-8) 77.5 % IMM GRAN % (test code = 9739476985) 1.10 % LYMPH % (test code = 736-9) 11.1 % MONO % (test code = 5905-5) 9.1 % EOS % (test code = 713-8) 0.9 % BASO % (test code = 706-2) 0.3 % GRAN MAT x10^3(ANC) (test code = 0934458895) 8.71 10*3/uL 1.99-6.95 H IMM GRAN x10^3 (test code = 1225098506) 0.12 10*3/uL 0.00-0.06 H LYMPH x10^3 (test code = 731-0) 1.25 10*3/uL 1.09-3.23 MONO x10^3 (test code = 742-7) 1.02 10*3/uL 0.36-1.02 EOS x10^3 (test code = 711-2) 0.10 10*3/uL 0.06-0.53 BASO x10^3 (test code = 704-7) 0.03 10*3/uL 0.01-0.09 Lab Interpretation (test code = 76083-4) Abnormal [facility] WLLVLNUR1770-93-28 20:09:29FULL RESULT: Examination: CT HEAD WO CONTRAST on 02/09/2024 2:43 PM Clinical Indication: Dizziness Comparison: None Technique: Noncontrast imaging was obtained from base to vertex. Findings: The sulciand ventricles were unremarkable. There was no evidencefor mass lesion, hemorrhage, or underlying ed michelle. There is mild whitematter hypodensity compatible with microvascular ischemic change. There were no bony, sinonasal or skull base lesions.[facility] 3 RI5120-92-61 15:24:42EXAM: XR LUMBAR SPINE 3 VW HISTORY: 69 years-old Male; Provided indication: lumbar pain with bilateralsciatica . TECHNIQUE: Anterior and lateral views of the lumbar spine were obtained. COMPARISON: None. FINDINGS: There are 5 non-rib bearing lumbar vertebrae. No acute fracture or traumatic dislocation is visualized. Normal lumbarlordosis is preserved. The vertebral bodies are normal in height and innormal alignment. The intervertebral disc spaces are preserved.[facility] ABDOMEN PELVIS WO KFPUVSEV9749-65-77 19:42:33HISTORY: ?flank pain with right side swelling COMPARISON:none TECHNIQUE:CT scan of the abdomen and pelvis performed. Contiguous axial CT imageswere obtained without administration of intravenous contrast. ?CT scan doneaccording to BRYSON. Technical quality: Technical quality: adequate. FINDINGS: Liver, gallbladder, bile ducts unremarkable. Pancreas atrophic. Spleen normal in size. No adrenal nodule. No renal stones. Doses. Urinary bladder decompressed. No bowel obstruction. Diverticulosis present without diverticulitis. The appendix is normal. No retroperitoneal or mesenteric adenopathy is seen. Inflammatory change in the left upper quadrant involving the omentum. Mostcompatible with omental infarct. No acute bony abnormality.[facility]. Metabolic Panel (71197)2024-01-30 17:18:01* Test Item Value Reference Range Interpretation Comme nts NA (test code = 2740257784) 139 mmol/L 135-145 K (test code = 4573543127) 3.6 mmol/L 3.5-5.0 CL (test code = 9084552271) 107 mmol/L 98-108 CO2 TOTAL (test code = 7658653746) 27 mmol/L 23-31 AGAP (test code = 4200102141) 5 2-16 BUN (test code = 1858000825) 27 mg/dL 7-23 H GLUCOSE (test code = 7811213562) 118 mg/dL 70-110 H CREATININE (test code = 2160-0) 0.99 mg/dL 0.60-1.25 TOTAL BILI (test code = 3127604963) 0.4 mg/dL 0.1-1.1 CALCIUM (test code = 0738461816) 8.6 mg/dL 8.6-10.6 T PROTEIN (test code = 2752727234) 6.8 g/dL 6.3-8.2 ALBUMIN (test code = 4993137201) 3.6 g/dL 3.5-5.0 ALK PHOS (test code = 1840091994) 105 U/L 34-122 ALTv (test code = 1742-6) 23 U/L 5-50 AST(SGOT) (test code = 2103154452) 27 U/L 13-40 eGFR (test code = 63390-9) 81.9 mL/min/1.73m2 CKD-EPI eGFR (2020). Assuming creatinine has been stable day-to-day for at least three months, the eGFR indicates Category G2 (60 - 89 mL/min/1.73 m2) Lab Interpretation (test code = 10783-8) Abnormal [facility] with Mnuq5390-67-99 16:52:14* Test Item Value Reference Range Interpretation Comme nts WBC (test code = 6690-2) 10.32 4.20-10.70 RBC (test code = 789-8) 4.40 4.26-5.52 HGB (test code = 718-7) 13.1 g/dL 12.2-16.4 HCT (test code = 4544-3) 39.3 % 38.4-49.3 MCV (test code = 787-2) 89.3 fL 81.7-95.6 MCH (test code = 785-6) 29.8 pg 26.1-32.7 MCHC (test code = 786-4) 33.3 g/dL 31.2-35.0 RDW-SD (test code = 77952-3) 42.9 fL 38.5-51.6 RDW-CV (test code = 788-0) 13.2 % 12.1-15.4 PLT (test code = 777-3) 290 150-328 MPV (test code = 53598-5) 9.9 fL 9.8-13.0 NRBC/100 WBC (test code = 5208157220) 0.0 0.0-10.0 NRBC x10^3 (test code = 9087128730) See_Comment [Automated messa ge] The system which generated this result transmitted reference range: 10*3/?L. The reference range was not used to interpret this result as normal/abnormal. GRAN MAT (NEUT) % (test code = 770-8) 74.8 % IMM GRAN % (test code = 5918362148) 0.90 % LYMPH % (test code = 736-9) 14.7 % MONO % (test code = 5905-5) 7.8 % EOS % (test code = 713-8) 1.2 % BASO % (test code = 706-2) 0.6 % GRAN MAT x10^3(ANC) (test code = 9479902886) 7.72 10*3/uL 1.99-6.95 H IMM GRAN x10^3 (test code = 3512709338) 0.09 10*3/uL 0.00-0.06 H LYMPH x10^3 (test code = 731-0) 1.52 10*3/uL 1.09-3.23 MONO x10^3 (test code = 742-7) 0.81 10*3/uL 0.36-1.02 EOS x10^3 (test code = 711-2) 0.12 10*3/uL 0.06-0.53 BASO x10^3 (test code = 704-7) 0.06 10*3/uL 0.01-0.09 Lab Interpretation (test code = 77636-6) Abnormal [facility] 3 JT1804-76-28 19:03:44 HISTORY: ?Low back pain. FINDINGS: AP, lateral and spot views of the lumbar spines showed 5 lumbarvertebrae with no acute compression fracture or dislocation. No aggressivebone lesions.Mild degenerative changes are seen in the lumbar vertebral margins in theform of osteophytes throughout the lumbarspine and with minimal loss ofheight of L4-L5 disc space. Facet arthritis is noted at lower 3 lumbarlevels.No significant atherosclerotic changes are seen in the aorta. No calcifiedkidney stones visualized. CONCLUSIONS: Mild degenerative changes and lumbar spines and changes ofmild degenerative disc disease at L2-L3, L3-L4, L4-L5. Scmb, Radiant Results Inft User - 02/16/2020 2:04 PM CDTHISTORY: Low back pain.FINDINGS: AP, lateral and spot views of the lumbar spines showed 5 lumbarvertebrae withno acute compression fracture or dislocation. No aggressivebone lesions.Mild degenerative changes are seen in the lumbar vertebral margins in theform of osteophytes throughout the lumbar spine and with minimal loss ofheight of L4-L5 disc space. Facet arthritis is noted at lower 3 lumbarlevels.No significant atherosclerotic changes are seen in the aorta. No calcifiedkidney stones visualized.CONCLUSIONS: Mild degenerative changes and lumbar spines and changes ofmild degenerative disc disease at L2-L3, L3-L4, L4-L5.[facility] Pfpqxkx9943-56-33 13:50:00* Test Item Value Reference Range Interpretation Comme nts POCT Glu (age>30days) (test code = 3342) 181 mg/dL 70-110 A Lab Interpretation (test cod e = 20067-1) Abnormal [facility] Notes Date/Time Note Provider Source 2024-02-10 14:56:30 uUgxXx/7Rd9sV/yf0ybVuP4BNVixIsQEBzd0qg0S xb9zi NohM2lcbq+lGa75w41s9384-84-64S34:56:30Formatt ing of this note might be different from the original.PT D/C home. GCS15, VS stable. Given D/C paperwork. Pt ambulatory at time of discharge. Pt educated on med usage, follow up care, s/s worsening condition, need for hydration. Pt verbalized understanding.[facility] arrived to transport patient. Pt given a care package upon discharge 98384-7Beqrzisef department FuohUL7275-37-05T12:58:55Emergency department NoteTXT1.2.840.181804.1.13.104.2.7.2.619672|2 [id number] for patient nbol43818-9KxzmCSLLOZRFCCAJftimylps C-CDA narrative textUTUNM [facility] - [address] IcdpAbmexkmqiQgrungsdzOKQF7606580691FLHZXAKHB VSHJSLAQPZGUL8857-03-98J47:58:551.2.840.27654 0.1.72.3.15|1.2.840.643467.1.13.104.2.7.2.727 [id number] [facility] 2024-02-10 14:54:31 kxckGXIB3s5Kebyga6NCfQaHZF0pvNNrdDcoB/0E V9zyL CA92rSpxzJgEFrJMr/q5432-78-37N06:54:31Formatt ing of this note might be different from the original.Pt finishing food tray 99206-6Nyxzdpfoz department MgizRJ2135-85-01J96:54:39[facility] NoteTXT1.2.840.147137.1.13.104.2.7.2.889641|2 [id number] for patient vqzl24234-5LrnkBXHUYBQXDRFWixvqcmqn C-CDA narrative text[address] Vw[id number] RNHDQXMAKJOXB4129-50-75S84:54:391.2.840.95490 0.1.72.3.15|1.2.840.716177.1.13.104.2.7.2.727 [id number] [facility] 2024-02-10 11:55:54 n0bnDqB6GWQYG+VB2IJwoJB+NT8+DGy9lofvo9b+ HHrh9 EjGbhBo39nYlwQwEuLw7339-44-31B36:55:54Formatt ing of this note might be different from the original.Pt states he is dizzy when he walks and has pain.Pt reports having these symptoms for months. 10127-6Jbvgigaye department Triage dfkmPW1971-47-58F06:58:28[facility] department Triage noteTXT1.2.840.330353.1.13.104.2.7.2.558907|2 [id number] for patient qemm83377-9Lupnqellk department NoteLNNARRATIVEFormatted C-CDA narrative [id number] E Linkes [id number] XLNNXWRQHXOHK7590-61-25U78:58:281.2.840.60415 0.1.72.3.15|1.2.840.053208.1.13.104.2.7.2.727 [id number] Merry Wise [facility] 2024-02-09 21:15:50 udX+jte9d3c/MheTjIq4orj4uZBr0R7yDF89S4jr FeHXP 2w+OblxzaRXuGLOydCQ0375-79-09C60:15:50Formatt ing of this note might be different from the original.Pt given printed and verbal discharge instructions regarding bilateral low back pain, encouraged hydration,Pt verbalized understanding of instructions,pt encouraged to follow up with pcpAdvised to seek medical attention for new/prolonged/worsening of symptoms,No adverse reaction to meds given in ER noted upon dischargeAwake, alert oriented, resp reg unlabored, skin w/d, pt leaving in no apparent distress, 37517-8Hovzbiplf department ByrkTW5712-95-09X35:17:06[facility] department NoteTXT1.2.840.924811.1.13.104.2.7.2.802545|2 [id number] for patient olco93744-3QrexWZHSWKNQKZIJkuxpksja C-CDA narrative [id number] R Shehadeh [id number] WMRHECEUGBHAV2102-95-33V78:17:061.2.840.53197 0.1.72.3.15|1.2.840.614759.1.13.104.2.7.2.727 [id number] Chelsea Jackson RN [facility] 2024-02-09 21:08:09 7lXkaJWUZcgqAeJtAlohEgKdvU0kvOOJk1skiHE+ 9HEVf +hOTcFlRBDjVxz0GOkH0055-00-47O83:08:09Formatt ing of this note might be different from the original.Pt has been discharged for several hours. He is being loaded into a WC at this time to wait in lobby. He asked nursing to call red Qiu. Ms. Gonzalez states that her and her friend are trying to find him a care home. At this pt being placed in the lobby. 33894-3Iddjuvcyc department CqnoGV6925-14-65B77:10:35[facility] NoteTXT1.2.840.928161.1.13.104.2.7.2.719385|2 [id number] for patient hirp09712-3QionQPHZQPXHMULSwsdqqlzh C-CDA narrative textUT83 [address] StreetHunmPpnypmbreBpnkgqpafNMDP3412969925YSIWZQDHE WASVXJBNYLMUD6116-61-03S57:10:351.2.840.25517 0.1.72.3.15|1.2.840.966308.1.13.104.2.7.2.727 [id number] [facility] 2024-02-09 14:20:00 fzj+LMv8UBJ9GXAvCOyH5DUz2q5zgzxQ+OGkjZPo e2xcv /MS+Zyx6f2/R37vGOFh7828-67-56I72:20:00Formatt ing of this note might be different from the original.Patient c/o lower back pain. Denies injury 49101-4Gfjwhjptz department TqpgBV3636-29-55F35:35:03[facility] department NoteTXT1.2.840.146780.1.13.104.2.7.2.835920|2 [id number] for patient bhxk67992-4PtirFWFAWWCZNORPlqtymflu C-CDA narrative textUT[address] [id number] RPMJJXAFTSTVU1213-32-72D70:35:031.2.840.72206 0.1.72.3.15|1.2.840.277575.1.13.104.2.7.2.727 [id number] [facility] 2024-02-09 14:01:15 BosDYJEXnoljjalaK60bDjamvvQimmbTU9kfsYw0 XHjw6 5gaCXD0zdqrpHFjXI4D0972-42-33M03:01:15Formatt ing of this note might be different from the original.Patient transported by [facility], patient c/o back pain and needed to be cleaned up. Patient is homeless and incontinent of urine. 15697-5Etoomolxl department Triage fcflAW3716-42-70W26:02:01[facility] department Triage noteTXT1.2.840.596071.1.13.104.2.7.2.648100|2 [id number] for patient dfaw29506-9Tupsnkkws department NoteLNNARRATIVEFormatted C-CDA narrative [id number] S Cryer RNUT[address] [id number] ALUKVXUNAUGUW0893-99-54M80:02:011.2.840.16024 0.1.72.3.15|1.2.840.753122.1.13.104.2.7.2.727 [id number] Quinn Moyer RN [facility] - Health 2024-02-09 13:59:00 JuZM7A6LaEeVFoIjSyZ4qFeVkNNHJ55c+JDVExPZ 803in Q4Fyj9YqsM9Ph9qH6xh2358-27-26X91:59:00Formatt ing of this note is different from the original.Images from the original note were not included.[facility] Emergency Department NotePatient Name: Raj Mackey of : 1955 69 year old maleTreatment Room: Room/bed info not foundMedical Record Number: [id number] Care Physician: Rakesh Oh Escorted by: Self [9][facility] [43]EMS Treatment Prior to ED Arrival:ENFORCEMENT OFFICER treatment: Saline lockTravel and Exposure Screening:SymptomsDoes patient have any of these symptoms?: (not recorded)Exposure ScreeningHas patient had contact with someone with a communicable disease in the last month?: (not recorded)Diseases exposed to:: (not recorded)Is Patient ?: (not recorded)Exposure Date: (not recorded)Chief Complaint:Chief ComplaintPatient presents withBack PainHistory of Present Illness:Patient was sleeping on a cot by a dollar store and bystanders called EMS for a possible diabetic emergency. This arrived found glucose in the 200, patient known diabetic patient reports history of prior stroke worried that is getting worse because he had months of worsening ataxia. Also has chronic low back pain reports he has been told there problems there and he had an MRI previously but does not know the results. Also was incontinent of urine, reports frequency, denies dysuria. No feversPast Medical History/Immunizations:Past Medical History:Diagnosis DateAcute midline low back pain without sciatica 01/18/2020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) 10/12/2019CataractOS ONLYCellulitis of foot, left 04/12/2020DiabetesDiabetic eye exam 12/01/2019Added automatically from request for surgery [id number] of both legs 02/28/2020Erectile dysfunction, unspecified erectile dysfunction type 02/28/2020Essential hypertension 02/28/2020HTN (hypertension)HyperlipidemiaObesity (BMI 30-39.9) 03/17/2019Psoriasiform dermatitis 1Stroke 2017Type 2 diabetes mellitus with vascular disease 10/12/2019Upper respiratory tract infection, unspecified type 10/12/2019Tetanus received in last 5 years: NoChildhood immunizations: Mm-mu-aqxtHmujgxtjm:No Known AllergiesPast Social History:Tobacco UseNever smoked or used smokeless tobacco.Alcohol UseNo.Drug UseNo.Past Surgical History:Past Surgical History:Procedure Laterality DateCOLONOSCOPY N/A 12/30/2019Surgeon: Glo Finn MD; [facility]PL[facility],LAMELLAR BilateralKNEE LTOSJAUAMIA2417WOTPYNNJWQRJCNOB KERATOPLASTYPHACOEMULSIFICATION OF CATARACT WITH INTRAOCULAR LENS IMPLANT Right 03/17/2019Surgeon: Virgil Martinez MD; Location[facility] HospitalReview of Systems:Review of SystemsConstitutional: Positive for activity change. Negative for chills and fever.Respiratory: Negative for cough and shortness of breath.Cardiovascular: Negative for chest pain.Gastrointestinal: Negative for abdominal pain, nausea and vomiting.Genitourinary: Positive for bladder incontinence and frequency. Negative for dysuria and urgency.Musculoskeletal: Positive for gait problem. Negative for neck pain and neck stiffness.Skin: Positive for rash. Negative for wound.Neurological: Negative for weakness and numbness.All other systems reviewed and are negative.Physical Exam:ED Triage Vitals [02/09/24 1402]Weight 99.8 kg (220 lb)Actual or estimatedHeight 1.778 m (5' 10")BP (!) 171/87Pulse 82Resp 15Temp 35.9 ?C (96.7 ?F)Temp source OralSpO2 98 %Measured on Room airPhysical ExamVitals and nursing note reviewed.Constitutional:General: He is not in acute distress.Appearance: He is well-developed. He is obese. He is not ill-appearing or toxic-appearing.HENT:Head: Normocephalic and atraumatic.Eyes:General: No scleral icterus.Neck:Vascular: No JVD.Cardiovascular:Rate and Rhythm: Normal rate and regular rhythm.Pulmonary:Effort: Pulmonary effort is normal. No respiratory distress.Breath sounds: No wheezing or rhonchi.Abdominal:General: There is no distension.Palpations: Abdomen is soft.Tenderness: There is no abdominal tenderness. There is no guarding or rebound.Musculoskeletal:General: Tenderness present. No deformity. Normal range of motion.Cervical back: Normal range of motion and neck supple.Lumbar back: Tenderness present. No swelling or deformity.Back:Skin:General: Skin is warm and dry.Capillary Refill: Capillary refill takes less than 2 seconds.Findings: No rash.Neurological:Mental Status: He is alert. Mental status is at baseline.Psychiatric:Mood and Affect: Mood normal.Behavior: Behavior normal.Thought Content: Thought content normal.Radiology:CT HEAD WO CONTRASTFinal ResultFULL RESULT:Examination: CT HEAD WO CONTRAST on 02/09/2024 2:43 PMClinical Indication: DizzinessComparison: NoneTechnique: Noncontrast imaging was obtained from base to vertex.Findings: The sulci and ventricles were unremarkable. There was noevidencefor mass lesion, hemorrhage, or underlying edema. There is mild whitematter hypodensity compatible with microvascular ischemic change.There were no bony, sinonasal or skull base lesions.IMPRESSIONNo lesions.Lab Results:Lab ResultsURINALYSIS - AbnormalResult Value Ref RangeAPPEARANCE Clear ClearCOLOR Yellow YellowPH 5.0 4.8 - 8.0SP GRAVITY 1.020 1.003 - 1.030GLU U QUAL 500 mg/dL (*) NormalBLOOD Negative NegativeKETONES 20 mg/dL (*) NegativePROTEIN 30 mg/dL (*) NegativeUROBILIN Normal NormalBILIRUBIN Negative NegativeNITRITE Negative NegativeLEUK THEODORE Negative NegativeRBC/HPF 0 0 - 3 HPFWBC/HPF <1 0 - 5 HPFBACTERIA Negative NegativeMUCOUS Slight (*) Negative LPFEKG:If EKG completed, see Procedure Note.Orders and Treatments:Orders Placed This EncounterProceduresCT HEAD WO CONTRASTUrinalysisOrders Placed This EncounterMedicationsmethocarbamoL (ROBAXIN) tablet 1,000 mgketorolac (TORADOL) injection 15 mgFirst Provider Eval:ED EventsDate/Time Event User Supbxznq74/19/24 1400 Medical Screening Begins TARA IRELAND MD --02/09/24 1400 First Provider Evaluation TARA IRELAND MD --ED COURSEDiagnosis/Impression as of 02/09/24 1710Chronic low back pain with bilateral sciatica, unspecified back pain lateralityAtaxiaChronic bilateral low back pain with bilateral sciaticaObesity (BMI 30-39.9)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 On chart review patient had a CT of his abdomen pelvis and that included his lower back 10 days ago no signs of abscess or inflammation in the spine, unlikely to be spinal epidural abscess despite poorly controlled diabetes. Will check CT head for possible worsening or hemorrhagic conversion of his known stroke, give him some oral pain medicines for his lower back pain, check urinalysis for possible infectionCt head negative.Ua negative for infection. Patient care limited by access to healthcare and homelessness, can't fill any medications that are prescribed. Stable for discharge at this time, follow up local resourcesProblems Addressed:Ataxia: chronic illness or injury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): chronic illness or injuryChronic bilateral low back pain with bilateral sciatica: acute illness or injuryChronic low back pain with bilateral sciatica, unspecified back pain laterality: chronic illness or injury with exacerbation, progression, or side effects of treatmentHomelessness: chronic illness or injury with severe exacerbation, progression, or side effects of treatment that poses a threat to life or bodily functionsObesity (BMI 30-39.9): chronic illness or injuryType 2 diabetes mellitus with vascular disease: chronic illness or injuryAmount and/or Complexity of Data ReviewedIndependent Historian: EMSRadiology: ordered. Decision-making details documented in ED Course.RiskPrescription drug management.Flowsheet Documentation:Scoring Tools:No data recordedDisposition/Condition:ED DispositionED DispositionDisch - HomeConditionStableComment--Discharge Medications:Patient's MedicationsSTART taking these medicationsNo medications on fileCONTINUE taking these medications which have NOT CHANGEDALCOHOL SWABS (BD SINGLE USE SWABS REGULAR) PADM Apply to area(s) daily. Monitor Blood Glucose dailyASPIRIN 81 MG EC TABLET Take 1 tablet by mouth daily.BLOOD SUGAR DIAGNOSTIC (TRUE METRIX GLUCOSE TEST STRIP) STRIP Monitor Blood Glucose dailyCYCLOBENZAPRINE 10 MG TABLET Take 1 tablet by mouth in the morning and 1 tablet at noon and 1 tablet in the evening. Do all this for 15 doses.DICYCLOMINE 20 MG TABLET Take 1 tablet by mouth 4 (four) times daily as needed for Abdominal pain.FUROSEMIDE 20 MG TABLET Take 1 tablet by mouth daily.INSULIN NEEDLES, DISPOSABLE, (PHUC PEN NEEDLE) 32 GAUGE X 5/32" NDLE Use as directedINSULIN NPH (HUMULIN N NPH U-100 INSULIN) 100 UNIT/ML INJECTION INJECT 35 UNITS SUBCUTANEOUSLY EVERY MORNING AND EVENING. Office visit needed for further refills.INSULIN SYRINGE-NEEDLE U-100 1 ML 27 GAUGE X 1/2" SYRG Use as directedLANCETS (TRUEPLUS LANCETS) 33 GAUGE [facility] Monitor Blood Glucose dailyLISINOPRIL-HYDROCHLOROTHIAZIDE 10-12.5 MG PER TABLET Take 1 tablet by mouth once dailyMETFORMIN 1,000 MG TABLET Take 1 tablet by mouth 2 (two) times daily with meals.[facility]CELLC[facility] E11.8: dispense Insulin Syringe 31 gauge brand covered by insurance. Monitor Blood Sugar at Home BIDOFLOXACIN (OCUFLOX) 0.3 % OPHTHALMIC SOLUTION Place 1 Drop in right eye 3 (three) times daily.PEG-ELECTROLYTE SOLN 236-22.74-6.74 -5.86 GRAM SOLUTION Take as directedPOTASSIUM CHLORIDE 10 MEQ CR TABLET Take 1 tablet by mouth every Thursday, and Thursday in the evening.PREDNISOLONE ACETATE 1 % OPHTHALMIC SUSPENSION DROPS Place 1 Drop in right eye 4 (four) times daily.SILDENAFIL 50 MG TABLET Take 1 tablet by mouth as needed (Erectile dysfunction). Take 50mg x 1, about 30 mins - 4 hours prior to sexual activity.SIMVASTATIN 40 MG TABLET Take 1 tablet by mouth at bedtime.TIZANIDINE 4 MG TABLET Take 1 tablet by mouth every 6 (six) hours as needed for Pain (scale 7-10).START taking Modified Medications as PrescribedNo medications on fileSTOP taking these medicationsNo medications on fileFollow-up:Electronically signed by:Tara Ireland MD02/09/240 22909-3Jbeejqagd Emergency department JethBQ5219-23-37P70:10:50Physician Emergency department NoteTXT1.2.840.793009.1.13.104.2.7.2.343484|2 [id number] for patient xljb88043-3Bslflkwvu department NoteLNNARRATIVEFormatted C-CDA narrative textUT48 Smith [id number] MELGIOJOURIUW1095-96-91K51:10:501.2.840.97224 0.1.72.3.15|1.2.840.667498.1.13.104.2.7.2.727 [id number] [facility] 2024-02-06 11:48:50 ZQqa01nAYmkMiMYXMRnL0lJ/6XCjuL5jJOXG4vpP iqm+A Lkr7IKzyTb0Py0eRGIo5329-45-54D33:48:50Formatt ing of this note might be different from the original.Written/verbal d/c instructions, out of er via wheelchair, pt requests [facility] PD to call [place] [employer], states [employer] told him they would give him a ride back to [employer] to get his cart that he uses to walk, states [employer] hid his cart behind the building while [facility] transported to hospital, [facility] [place] [address]-9Nhltjjelv department VgdzIP3601-35-66G57:50:36[facility] department NoteTXT1.2.840.940401.1.13.104.2.7.2.881165|2 [id number] for patient hnrk35902-2HdzmBKTBRQITUPDIfagwqnbl C-CDA narrative [id number] M. Barton RNUT[address] [id number] NCOLNHOEGJYUQ3429-29-67E12:50:361.2.840.09237 0.1.72.3.15|1.2.840.996929.1.13.104.2.7.2.727 [id number] Zarina Martin RN [facility] 2024-02-06 09:24:07 Ness/Jorge/mgT0pk05FV7xU04AJawX7ioXeSfqzYPvlm YsdJO 0H61UAyKzVvlExmaCsz2593-69-13V98:24:07Formatt ing of this note might be different from the original.[facility] states: "Pt is coming in for chronic back pain. He's had it for over a month now. He's homeless. Has a history of stroke. He does have a cut on his finger that he might need an antibiotic for. His bgl was 202. The police said to call him when he gets discharged and he would take him back to outside of [facility] where he is living. The sonoscope operator also gave him 20 dollars so he should have some money for an antibiotic" 01530-0Anycbrjke department Triage psaxZH7638-75-87Q66:26:33[facility] department Triage noteTXT1.2.840.577551.1.13.104.2.7.2.470825|2 [id number] for patient pzlj33849-1Qradeylyq department NoteLNNARRATIVEFormatted C-CDA narrative [id number] M Cruz RNUT[address] HoqwZdlpbkaujVbogeovdvKUPD3395433276HBPCFDNMU ACWDHOZFHRHCZ4402-72-62B50:26:331.2.840.13195 0.1.72.3.15|1.2.840.100908.1.13.104.2.7.2.727 [id number] Vandana Gallegos RN [facility] 2024-02-06 09:16:00 QUOpkiE9pI9gIc2ixMa6HDylfNaVXy04dFO3prxW Cipq IXhgSffa7gaVRzpe2nO3570-31-55B01:16:00Formatt ing of this note is different from the original.Images from the original note were not included.[facility] Emergency Department NotePatient Name: Raj Mackey of : 1955 69 year old maleTreatment Room: [place] [address]Medical Record Number: [id number] Care Physician: Rakesh Oh Escorted by: Self [9][facility] [43]EMS Treatment Prior to ED Arrival:Travel and Exposure Screening:SymptomsDoes patient have any of these symptoms?: (not recorded)Exposure ScreeningHas patient had contact with someone with a communicable disease in the last month?: (not recorded)Diseases exposed to:: (not recorded)Is Patient ?: (not recorded)Exposure Date: (not recorded)Chief Complaint:Chief ComplaintPatient presents withBack PainHistory of Present Illness:Patient is a 69 y/o M with PMH: Morbid Obesity, CVA w/ Ataxia, HLD, Chronic Lumbar Pain w/ Bilateral Sciatica, HTN, Psoriasis who presents with acute on chronic lumbar pain. He is currently homeless and lives by [employer] [facility]. He was brought in by the PDt and PD states that they "will pick him up and take him back to [facility] at discharge"History provided by: Patient and medical recordsLanguage retail administrative assistant used: NoPast Medical History/Immunizations:Past Medical History:Diagnosis DateAcute midline low back pain without sciatica 01/18/2020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) 10/12/2019CataractOS ONLYCellulitis of foot, left 04/12/2020DiabetesDiabetic eye exam 12/01/2019Added automatically from request for surgery [id number] of both legs 02/28/2020Erectile dysfunction, unspecified erectile dysfunction type 02/28/2020Essential hypertension 02/28/2020HTN (hypertension)HyperlipidemiaObesity (BMI 30-39.9) 03/17/2019Psoriasiform dermatitis 1Stroke 2017Type 2 diabetes mellitus with vascular disease 10/12/2019Upper respiratory tract infection, unspecified type 10/12/2019Allergies:No Known AllergiesPast Social History:Tobacco UseNever smoked or used smokeless tobacco.Alcohol UseNo.Drug UseNo.Past Surgical History:Past Surgical History:Procedure Laterality DateCOLONOSCOPY N/A 12/30/2019Surgeon: Glo Finn MD; [facility]LAMELLAR BilateralKNEE FOVNEFNYEYY8488MOUEKBOBKJOPDXCF KERATOPLASTYPHACOEMULSIFICATION OF CATARACT WITH INTRAOCULAR LENS IMPLANT Right 03/17/2019Surgeon: Virgil Martinez MD; Location[facility] HospitalReview of Systems:Review of SystemsMusculoskeletal: Positive for back pain (lumbar pain with bilateral sciatica).Physical Exam:ED Triage Vitals [02/06/24 0926]Weight 99.8 kg (220 lb)Actual or estimated Estimated by patient/family reportHeight 1.651 m (5' 5")BP (!) 163/77Pulse 71Resp 16Temp 36.6 ?C (97.9 ?F)Temp source OralSpO2 98 %Measured on Room airPhysical ExamVitals and nursing note reviewed.Constitutional:General: He is awake.Appearance: Normal appearance. He is well-developed and well-groomed. He is obese.HENT:Head: Normocephalic and atraumatic.Jaw: There is normal jaw occlusion.Right Ear: Hearing normal.Left Ear: Hearing normal.Nose: Nose normal.Mouth/Throat:Lips: [place].Mouth: Mucous membranes are dry.Pharynx: Oropharynx is clear. Uvula midline.Eyes:General: Lids are normal. Vision grossly intact. Gaze aligned appropriately.Extraocular Movements: Extraocular movements intact.Conjunctiva/sclera: Conjunctivae normal.Pupils: Pupils are equal, round, and reactive to light.Neck:Trachea: Trachea and phonation normal.Cardiovascular:Rate and Rhythm: Normal rate and regular rhythm.Pulses: Normal pulses.Heart sounds: Normal heart sounds, S1 normal and S2 normal.Pulmonary:Effort: Pulmonary effort is normal.Breath sounds: Normal breath sounds and air entry.Abdominal:General: Abdomen is flat. Bowel sounds are normal.Palpations: Abdomen is soft.Musculoskeletal:General: Normal range of motion.Cervical back: Full passive range of motion without pain, normal range of motion and neck supple.Back:Comments: Lumbar pain with bilateral sciaticaSkin:General: Skin is warm and dry.Capillary Refill: Capillary refill takes less than 2 seconds.Neurological:General: No focal deficit present.Mental Status: He is alert and oriented to person, place, and time. Mental status is at baseline.GCS: GCS eye subscore is 4. GCS verbal subscore is 5. GCS motor subscore is 6.Sensory: Sensation is intact.Motor: Motor function is intact.Coordination: Coordination is intact.Gait: Gait is intact.Deep Tendon Reflexes: Reflexes are normal and symmetric.Psychiatric:Attention and Perception: Attention and perception normal.Mood and Affect: Mood and affect normal.Speech: Speech normal.Behavior: Behavior normal. Behavior is cooperative.Thought Content: Thought content normal.Cognition and Memory: Cognition and memory normal.Judgment: Judgment normal.Radiology:XR LUMBAR SPINE 3 VWFinal ResultEXAM: XR LUMBAR SPINE 3 VWHISTORY: 69 years-old Male; Provided indication: lumbar pain withbilateralsciatica .TECHNIQUE: Anterior and lateral views of the lumbar spine were obtained.COMPARISON: None.FINDINGS:There are 5 non-rib bearing lumbar vertebrae.No acute fracture or traumatic dislocation is visualized. Normal lumbarlordosis is preserved. The vertebral bodies are normal in height and innormal alignment. The intervertebral disc spaces are preserved.IMPRESSIONNo acute osseous abnormality.Preliminary Report Dictated by Resident: Marie Holland, Kvng Kraus MD., have reviewed this study and agree with theabove report.Lab Results:Lab ResultsURINALYSIS - AbnormalResult Value Ref RangeAPPEARANCE Clear ClearCOLOR Yellow YellowPH 5.0 4.8 - 8.0SP GRAVITY 1.020 1.003 - 1.030GLU U QUAL 50 mg/dL (*) NormalBLOOD Negative NegativeKETONES 20 mg/dL (*) NegativePROTEIN 30 mg/dL (*) NegativeUROBILIN Normal NormalBILIRUBIN Negative NegativeNITRITE Negative NegativeLEUK THEODORE Negative NegativeRBC/HPF <1 0 - 3 HPFWBC/HPF 1 0 - 5 HPFBACTERIA Negative NegativeMUCOUS Slight (*) Negative LPFEKG:If EKG completed, see Procedure Note.Orders and Treatments:Orders Placed This EncounterProceduresXR LUMBAR SPINE 3 VWURINALYSISDischarge Follow-up: PCP RAKESH SHORE; As NeededOrders Placed This EncounterMedicationscyclobenzaprine (FLEXERIL) tablet 10 mgcyclobenzaprine 10 mg tabletFirst Provider Eval:ED EventsDate/Time Event User Xwkyztha27/16/24 09 Medical Screening Begins DESTINY MULLER --02/06/24 09 First Provider Evaluation DESTINY MULLER --ED COURSEED Course as of 02/06/24 1137Sat Feb [id number] MUCOUS(!): Slight [KV]1129 PROTEIN(!): 30 mg/dL [KV]1129 KETONES(!): 20 mg/dL [KV]1129 GLU U QUAL(!): 50 mg/dL [KV]1050 Cyclobenzaprine helped lumbar symptoms. Awaiting UA results [KV]1032 Imaging spine 2 view is negative for any new osseous lesions. Awaiting UA results [KV]ED Course User Index[KV] Destiny Muller NPDiagnosis/Impression as of 02/06/24 1137Chronic bilateral low back pain with sciatica, sciatica laterality unspecifiedBack muscle spasmProcedures:ProceduresMDM:Medical Decision MakingDDX: low back painSpine r/tAcute ligamentous injuryAcute muscle strainDisk herniation (Sciatica)Degenerative joint diseaseSpondylolithesisEpidural compression syndromesSpinal cor compression (non-traumatic)Cauda equina syndromeConus medullaris syndromeEpidural abscess (spinal)Epidural hematoma (spinal)Thoracic and lumbar fractures and dislocationsCancer metastasisSpinal stenosisTransverse myelitisVertebral osteomyelitisAnkylosing spondylitisSpondylolithesisDiscitisRenal diseaseKidney stonePyelonephritisNephrolithiasisIntra-abdom inalAbdominal aortic aneurysmUlcer perforationRetrocecal appendicitisLarge bowel obstructionPancreatitisPelvic diseasePIDOtherRetroperitoneal hemorrhage/massMeningitisMDM: Patient is a 69 y/o M w/ PMH: Mild Degenerative Disc Disease (L2,-L3, L3-L4, L4-L5) who presents with acute on chronic lumbar pain with bilateral sciatica. ER Imaging: Spine 2V: IMPRESSION: No acute osseous abnormality. Patient received Cyclobenzaprine 10 mg po x 1 dose and he states that he "had improvement with back symptoms". Patient is stable for DC to Home. PD notified of impending DC to Home.Amount and/or Complexity of Data ReviewedLabs: Decision-making details documented in ED Course.Radiology: ordered.RiskPrescription drug management.Flowsheet Documentation:Scoring Tools:No data recordedDisposition/Condition:ED DispositionED DispositionDisch - HomeConditionStableComment--Discharge Medications:Patient's MedicationsSTART taking these medicationsCYCLOBENZAPRINE 10 MG TABLET Take 1 tablet by mouth in the morning and 1 tablet at noon and 1 tablet in the evening. Do all this for 15 doses.CONTINUE taking these medications which have NOT CHANGEDALCOHOL SWABS (BD SINGLE USE SWABS REGULAR) PADM Apply to area(s) daily. Monitor Blood Glucose dailyASPIRIN 81 MG EC TABLET Take 1 tablet by mouth daily.BLOOD SUGAR DIAGNOSTIC (TRUE METRIX GLUCOSE TEST STRIP) STRIP Monitor Blood Glucose dailyDICYCLOMINE 20 MG TABLET Take 1 tablet by mouth 4 (four) times daily as needed for Abdominal pain.FUROSEMIDE 20 MG TABLET Take 1 tablet by mouth daily.INSULIN NEEDLES, DISPOSABLE, (PHUC PEN NEEDLE) 32 GAUGE X 5/32" NDLE Use as directedINSULIN NPH (HUMULIN N NPH U-100 INSULIN) 100 UNIT/ML INJECTION INJECT 35 UNITS SUBCUTANEOUSLY EVERY MORNING AND EVENING. Office visit needed for further refills.INSULIN SYRINGE-NEEDLE U-100 1 ML 27 GAUGE X 1/2" SYRG Use as directedLANCETS (TRUEPLUS LANCETS) 33 GAUGE [facility] Monitor Blood Glucose dailyLISINOPRIL-HYDROCHLOROTHIAZIDE 10-12.5 MG PER TABLET Take 1 tablet by mouth once dailyMETFORMIN 1,000 MG TABLET Take 1 tablet by mouth 2 (two) times daily with meals.MISCELLANEOUS MEDICAL SUPPLY [facility] E11.8: dispense Insulin Syringe 31 gauge brand covered by insurance. Monitor Blood Sugar at Home BIDOFLOXACIN (OCUFLOX) 0.3 % OPHTHALMIC SOLUTION Place 1 Drop in right eye 3 (three) times daily.PEG-ELECTROLYTE SOLN 236-22.74-6.74 -5.86 GRAM SOLUTION Take as directedPOTASSIUM CHLORIDE 10 MEQ CR TABLET Take 1 tablet by mouth every Thursday, and Thursday in the evening.PREDNISOLONE ACETATE 1 % OPHTHALMIC SUSPENSION DROPS Place 1 Drop in right eye 4 (four) times daily.SILDENAFIL 50 MG TABLET Take 1 tablet by mouth as needed (Erectile dysfunction). 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 I was available for consultation as needed at all times during the patient's visit in the emergency department. I agree with the clinical impression, plan and disposition.89668-6Ncucbylyh Emergency department [id number], Yasin1.2.840.877813.1.13.104.2.7.2.126890Bdqt uXimdgEQ7681-36-97Q03:41:33[facility] Emergency department NoteTXT1.2.840.916493.1.13.104.2.7.2.517023|2 [id number] for patient qfxn32124-7Lkodnhned department NoteLNNARRATIVEFormatted C-CDA narrative textUT[address] Offv[id number] UUOQARHTLDZCV4534-83-53Z64:41:331.2.840.02562 0.1.72.3.15|1.2.840.471490.1.13.104.2.7.2.727 [id number] [facility] 2024-01-30 14:56:27 dvMmOWuDwmRYy6b+DRGqpXJ3mL97k2OVUUE0u3E3 9Njof FA60vVraTdOGx1kYpxk6976-00-66I77:56:27Formatt ing of this note might be different from the original.Pt given discharge instructions on flank pain. Pt given prescription X 2 for bentyl and tinazadine. Pt advised to follow up with pcp. 39696-1Vkpmvaljm department TbtcAI5438-42-22K32:01:55[facility] department NoteTXT1.2.840.533221.1.13.104.2.7.2.146746|2 [id number] for patient fbdg70643-9UingDGIGHAAPCNTPwqingtfi C-CDA narrative [id number] M Cruz RNUT[address] Griffith StreetDqslNohfydpimVhrbkzvbeNJVG1401661788LHOWOWFHQ PRKCZSPINDXFD0879-68-44I81:01:551.2.840.15288 0.1.72.3.15|1.2.840.677053.1.13.104.2.7.2.727 [id number] Vandana Gallegos RN [facility] 2024-01-30 10:04:33 vjGDwwHH4Li7FqZq1sgvuS+5YoEqJki7x2INL95T 1Me6h J2TQtU31/77vA0sTI9Z2411-60-95X46:04:33Formatt ing of this note might be different from the original.Patient arrived via EMS for pain that started 3 weeks ago. He thinks the pain is from a stroke he had 10 years ago or the snake bite 3 weeks ago. Reports he was sleeping in a hotel 3 weeks ago that was dirty and thinks he could have been bitten. Patient is homeless and called 911 at the [employer]. 80001-7Puqsuvnro department Triage wadwIV0489-28-17S48:05:50[facility] department Triage noteTXT1.2.840.018818.1.13.104.2.7.2.481489|2 [id number] for patient ctks49249-9Ewwiuovib department NoteLNNARRATIVEFormatted C-CDA narrative [id number] Valente Barrios RNUT[address] NnkkSvuhubywtRkjfkfeqsKKUV6248412526GRTIIDYES MGFJNQHWCJEPF6269-32-22B91:05:501.2.840.66565 0.1.72.3.15|1.2.840.332474.1.13.104.2.7.2.727 [id number] Nimisha Valente Barrios RN [facility] 2024-01-14 21:46:53 43eYWnYSdL++N8FcJ0prb2zAF4oWhl6G/ZWVfi6D NQD0o sUfBwWk+uYmYX4Rvs+z5533-36-37R11:46:53Formatt ing of this note might be different from the original.Pt given printed and verbal discharge instructions regarding chronic bilateral low back pain, encouraged hydration,Discussed ibuprofen and to take with food to avoid GI distress.Pt verbalized understanding of instructions, pt awake alert oriented, resp reg unlabored, skin w/d, color appropriate for race, moves all ext well,pt encouraged to follow up with pcpAdvised to seek medical attention for new/prolonged/worsening of symptomsNo adverse reaction to meds given in ER noted upon dischargeAwake, alert oriented, resp reg unlabored, skin w/d, in no apparent distress, 44556-7Twlufnbzm department TvivOB4526-35-73M99:48:20[facility] department NoteTXT1.2.840.857535.1.13.104.2.7.2.765231|2 [id number] for patient cucm33529-6ReqqWRZRQVYSOJLJdxnefwcg C-CDA narrative jhpr087144172Spiffn-Mtbhy McInnis RNUT[address] [id number] LGEPIJWQINUPE1270-42-82Y04:48:201.2.840.63937 0.1.72.3.15|1.2.840.509012.1.13.104.2.7.2.727 [id number] Dennis Varghese RN [facility] 2024-01-14 21:14:37 eieIOn1CBLjkmqPjs+IJ6DdY4GJNTuNApZ+2aEBS s71Wo 47YcR4qtjH21kkgC85Y1086-96-06H64:14:37Formatt ing of this note might be different from the original.CC: Back here again for low back pain since beginning of the month. Pt states he may have fallen on the floor but doesn't have any memory of it. He thinks it may be because he doesn't get much sleep being homeless. Pt requesting "pain killer." Denies changes in urinationPMHx: JM8Fuabe, alert, oriented, resp reg unlabored, skin warm, color appropriate for race, moves all ext without difficultyBLG by EMS 374. [facility] Chelsea Jackson RN at 01/14/2024 9:19 PM MIB81530-4Vvubwstgz department Triage nyvqIL5313-98-36W98:19:14[facility] department Triage noteTXT1.2.840.583381.1.13.104.2.7.2.729798|2 [id number] for patient ceej34131-7Hjjstrrpw department NoteLNNARRATIVEFormatted C-CDA narrative [id number] R Shehadeh RNUT[address] [id number] UCRZRRBZIVHBQ4915-01-72T30:19:141.2.840.84259 0.1.72.3.15|1.2.840.372229.1.13.104.2.7.2.727 [id number] Chelsea Jackson RN [facility] 2024-01-05 06:35:49 zAtPstLbAkjbM4vuUKbFdPAUUTmsoQIMBn+j6mv0 BgnVt x0fXr+fqI+73FjsWO3V8288-84-38E85:35:49Formatt ing of this note might be different from the original.CC: lower back pain x 1 week. "I think it was the mattress I was sleeping on." Pt denies urinary symptoms. Pt didn't attempt OTC PTAPMHx: noneAwake, alert, oriented, resp reg unlabored, skin warm, color appropriate for race, moves all ext without difficulty, amb with slumpped gait. 82657-9Zmapwxink department Triage uelkMS7886-94-83H21:41:21[facility] Triage noteTXT1.2.840.312254.1.13.104.2.7.2.233076|2 [id number] for patient fbjx68017-0Ssbglzoqd department NoteLNNARRATIVEFormatted C-CDA narrative [id number] R Shehadeh RNUT[address] YrusPbghctmncMxhrnagfxHBBJ7229422569CUHGGHREZ MKXLBVFXIOZML6884-94-85X22:41:211.2.840.80242 0.1.72.3.15|1.2.840.147907.1.13.104.2.7.2.727 [id number] Chelsea Jackson RN [facility] 2024-01-05 06:31:00 v4Wvfey5T9x9LmZWcI9oq7VzrRH8fcmxG0yjLq+7 dpfSA VAw9zXRxUPCxpfzVQdy0531-52-61S47:31:00Formatt ing of this note is different from the original.[facility] Emergency Department NotePatient Name: Raj Mackey of : 1955 69 year old maleTreatment Room: [facility] FT/TMGC25-50Ktjvwyj Record Number: [id number] Care Physician: Tl HayesPatient Escorted by: Self [9]Mode of Arrival: Personal means [1]EMS Treatment Prior to ED Arrival:ENFORCEMENT OFFICER treatment: NoneTravel and Exposure Screening:SymptomsDoes patient have any of these symptoms?: (not recorded)Exposure ScreeningHas patient had contact with someone with a communicable disease in the last month?: (not recorded)Diseases exposed to:: (not recorded)Is Patient ?: (not recorded)Exposure Date: (not recorded)Chief Complaint:Chief ComplaintPatient presents withBack PainHistory of Present Illness:The patient presents from home for evaluation for low back pain for the past several weeks. He denies any injury or trauma. The pain is worse when he bends and moves and is better when he is still. He has not tried any yhow-rxw-nqpuzkk medications as he does not like to take medications. He reports over the past several weeks his pain does seem to be improving. No dysuria or hematuria. No loss of bowel or bladder function. He denies taking any daily medications.Here for evaluation.Past Medical History/Immunizations:Past Medical History:Diagnosis DateAcute midline low back pain without sciatica 01/18/2020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) 10/12/2019CataractOS ONLYCellulitis of foot, left 04/12/2020DiabetesDiabetic eye exam 12/01/2019Added automatically from request for surgery [id number] of both legs 02/28/2020Erectile dysfunction, unspecified erectile dysfunction type 02/28/2020Essential hypertension 02/28/2020HTN (hypertension)HyperlipidemiaObesity (BMI 30-39.9) 03/17/2019Psoriasiform dermatitis 1Stroke 2017Type 2 diabetes mellitus with vascular disease 10/12/2019Upper respiratory tract infection, unspecified type 10/12/2019Tetanus received in last 5 years: UnknownAllergies:No Known AllergiesPast Social History:Tobacco UseNever smoked or used smokeless tobacco.Alcohol UseNo.Drug UseNo.Past Surgical History:Past Surgical History:Procedure Laterality DateCOLONOSCOPY N/A 12/30/2019Surgeon: Glo Finn MD; [facility],LAMELLAR BilateralKNEE JXCWGLPZJWJ3824BJGETHFHPAULOCOP KERATOPLASTYPHACOEMULSIFICATION OF CATARACT WITH INTRAOCULAR LENS IMPLANT Right 03/17/2019Surgeon: Virgil Martinez MD; Location: [facility] OR LocationReview of Systems:Review of SystemsConstitutional: Negative for chills and fever.Respiratory: Negative for cough and shortness of breath.Cardiovascular: Negative for chest pain.Gastrointestinal: Negative for abdominal pain and vomiting.Genitourinary: Negative for dysuria.Musculoskeletal: Positive for back pain. Negative for arthralgias, neck pain and neck stiffness.Skin: Negative for wound.Neurological: Negative for dizziness.Psychiatric/Behavioral: Negative for agitation.Physical Exam:ED Triage Vitals [01/05/24 0637]Weight 99.8 kg (220 lb)Actual or estimated Estimated by patient/family reportHeight 1.778 m (5' 10")BP (!) 161/76Pulse 76Resp 18Temp 36.9 ?C (98.4 ?F)Temp source OralSpO2 96 %Measured on Room airPhysical ExamVitals and nursing note reviewed.Constitutional:Appearance: Normal appearance. He is obese.HENT:Head: Normocephalic and atraumatic.Cardiovascular:Rate and Rhythm: Normal rate.Pulmonary:Effort: Pulmonary effort is normal. No respiratory distress.Abdominal:General: There is no distension.Musculoskeletal:General: Normal range of motion.Cervical back: Neck supple.Comments: No vertebral body tenderness to the lumbar spine.No paraspinal muscle tenderness to the bilateral lumbar area.Steady gait.Negative seated leg raise bilaterally.Skin:General: Skin is warm and dry.Neurological:General: No focal deficit present.Mental Status: He is alert and oriented to person, place, and time.Radiology:No orders to displayLab Results:Lab Results - No data to displayEKG:If EKG completed, see Procedure Note.Orders and Treatments:Orders Placed This EncounterProceduresXR LUMBAR SPINE 3 VWOrders Placed This EncounterMedicationsibuprofen (IBU) tablet 600 mgFirst Provider Eval:ED EventsDate/Time Event User Ziyvfvxs05/13/24 0712 Medical Screening Begins JACKIE DIAZ DO --01/05/24 0712 First Provider Evaluation JACKIE DIAZ DO --ED COURSEDiagnosis/Impression as of 01/05/24 0741Acute bilateral low back pain without sciaticaProcedures:ProceduresMDM:Medical Decision MakingThe patient presents from home for evaluation for low back pain for the past several weeks. Denies any injury or trauma. The pain is worse with bending and movement and is better when he is still. No dysuria or hematuria. No loss of bowel or bladder function. No medications tried for symptoms. He reports since the pain started it does seem to be getting better.Vital signs are stable in ER.The patient is obese.He has no vertebral body tenderness to his lumbar spine.Steady gait.Negative seated leg raise bilaterally.Low concern for fracture however given his age and the length of his symptoms will obtain x-ray.Will also give the patient pain medication here in the ER.Anticipate discharge home later.0740 - the patient decided to leave the emergency department prior to receiving medication or imaging.Problems Addressed:Acute bilateral low back pain without sciatica: acute illness or injuryAmount and/or Complexity of Data ReviewedRadiology: ordered and independent interpretation performed. Decision-making details documented in ED Course.RiskOTC drugs.Prescription drug management.Flowsheet Documentation:Scoring Tools:No data recordedDisposition/Condition:ED DispositionED DispositionDisch - MSE OnlyCondition--CommentPatient did not want to pay co pay and decided to leave.Discharge Medications:Patient's MedicationsSTART taking these medicationsNo medications on fileCONTINUE taking these medications which have NOT CHANGEDALCOHOL SWABS (BD SINGLE USE SWABS REGULAR) PADM Apply to area(s) daily. Monitor Blood Glucose dailyASPIRIN 81 MG EC TABLET Take 1 tablet by mouth daily.BLOOD SUGAR DIAGNOSTIC (TRUE METRIX GLUCOSE TEST STRIP) STRIP Monitor Blood Glucose dailyFUROSEMIDE 20 MG TABLET Take 1 tablet by mouth daily.INSULIN NEEDLES, DISPOSABLE, (PHUC PEN NEEDLE) 32 GAUGE X 5/32" NDLE Use as directedINSULIN NPH (HUMULIN N NPH U-100 INSULIN) 100 UNIT/ML INJECTION INJECT 35 UNITS SUBCUTANEOUSLY EVERY MORNING AND EVENING. Office visit needed for further refills.INSULIN SYRINGE-NEEDLE U-100 1 ML 27 GAUGE X 1/2" SYRG Use as directedLANCETS (TRUEPLUS LANCETS) 33 GAUGE [facility] Monitor Blood Glucose dailyLISINOPRIL-HYDROCHLOROTHIAZIDE 10-12.5 MG PER TABLET Take 1 tablet by mouth once dailyMETFORMIN 1,000 MG TABLET Take 1 tablet by mouth 2 (two) times daily with meals.MISCELLANEOUS MEDICAL SUPPLY [facility] E11.8: dispense Insulin Syringe 31 gauge brand covered by insurance. Monitor Blood Sugar at Home BIDOFLOXACIN (OCUFLOX) 0.3 % OPHTHALMIC SOLUTION Place 1 Drop in right eye 3 (three) times daily.PEG-ELECTROLYTE SOLN 236-22.74-6.74 -5.86 GRAM SOLUTION Take as directedPOTASSIUM CHLORIDE 10 MEQ CR TABLET Take 1 tablet by mouth every Thursday, and Thursday in the evening.PREDNISOLONE ACETATE 1 % OPHTHALMIC SUSPENSION DROPS Place 1 Drop in right eye 4 (four) times daily.SILDENAFIL 50 MG TABLET Take 1 tablet by mouth as needed (Erectile dysfunction). Take 50mg x 1, about 30 mins - 4 hours prior to sexual activity.SIMVASTATIN 40 MG TABLET Take 1 tablet by mouth at bedtime.START taking Modified Medications as PrescribedNo medications on fileSTOP taking these medicationsNo medications on fileFollow-up:Electronically signed by:Jackie Diaz DO01/05/24 0742 [id number] Emergency department [id number] Emergency department [id number] for patient [id number] department NoteLNNARRATIVEFormatted C-CDA narrative textUTUNM [facility] - [address] [id number] [facility]
[2024-02-19] MEDS ORDERED: NA CHLORIDE 0.9% 1,000 ML ONE (19:29)
[2024-02-19] MEDS ORDERED: INSULIN REGULAR (HUMAN) 100 UNIT/ML ONE (19:38)
[2024-02-19 20:20] LABS: PTT, Activated Partial Thromb 29.6 SECONDS (24.3-36.9)
[2024-02-19 20:21] LABS: PT Prothrombin Time 11.7 SECONDS (9.5-12.5); Protime INR 1.07
[2024-02-19 20:22] LABS: Absolute Lymphocytes (CBC) 1.5 K/uL (0.7-4.9); Absolute Monocytes 1.1 K/uL (0.1-1.3); Basophils % 0.3 % (0-1.3); Eosinophils % 0.2 % (0-4.4); Hematocrit 38.9 % (39.6-49.0); Hemoglobin 13.4 g/dL (13.6-17.9); Lymphocytes % 14.3 % (15.3-44.8); MCHC 34.5 g/dL (32.0-36.0); MCV 86.8 fL (80-100); MPV 8.3 fL (7.6-11.3); Monocytes % 10.3 % (3.3-12.3); Neutrophils % 74.9 % (41.7-73.7); Platelets 277 thou/uL (152-406); RBC Red Blood Cell Count 4.48 M/uL (4.33-5.43); Red Cell Distribution Width 13.2 % (12.1-15.2)
--- NOTE | 2024-02-19 20:23 | RAD REPORT ---
EXAM DESCRIPTION: RAD - Chest Single View - 02/19/2024 8:16 pm CLINICAL HISTORY: fall, weak Chest pain. COMPARISON: <Comparisons> FINDINGS: Portable technique limits examination quality. The lungs are grossly clear. The heart is normal in size. No displaced fractures. IMPRESSION: No acute intrathoracic process suspected.
--- NOTE | 2024-02-19 20:26 | RAD REPORT ---
EXAM DESCRIPTION: CT - CTHCSPWOC - 02/19/2024 8:18 pm CLINICAL HISTORY: Trauma, head and neck injury. falls, weakness, previous CVA COMPARISON: <Comparisons> TECHNIQUE: Axial 5 mm thick images of the head were obtained. Axial 2 mm thick images of the cervical spine were obtained with sagittal and coronal reconstruction images generated and reviewed. All CT scans are performed using dose optimization technique as appropriate and may include automated exposure control or mA/KV adjustment according to patient size. FINDINGS: CT HEAD WITHOUT CONTRAST: No acute hemorrhage, hydrocephalus or extra-axial collection is identified.No areas of brain edema or midline shift. The paranasal sinuses and mastoids are clear.The calvarium is intact. CT CERVICAL SPINE WITHOUT CONTRAST: No fracture or subluxation.Mild lower cervical spondylosis.No prevertebral soft tissues swelling is i dentified. IMPRESSION: No acute intracranial or cervical spine findings.
[2024-02-19 20:34] LABS: Albumin 3.2 g/dL (3.4-5.0); Albumin/Globulin Ratio 0.8 (1.1-1.8); Anion Gap 10.3 mEq/L (5.0-15.0); Bilirubin Direct 0.3 mg/dL (0-0.2); Bilirubin Indirect, Calculated 0.5 mg/dL (0.2-0.8); Bilirubin Total 0.8 mg/dL (0.2-1.0); Globulin 3.8 g/dL (2.3-3.5); Potassium 4.3 mEq/L (3.5-5.1); Troponin High Sensitivity 35.2 pg/mL (<58.9)
[2024-02-20 01:06] LABS: Specific Gravity > 1.030 (1.005-1.030); Sqamous Epithelial None Seen /HPF (None Seen); Urine Bacteria <20 /HPF (<20); Urine Bilirubin NEGATIVE (Negative); Urine Blood Negative (Negative); Urine Clarity Clear (Clear); Urine Color Light-Yellow (Yellow); Urine Culture Reflex Order NOT NEEDED; Urine Glucose 4+ (Over) (Negative); Urine Ketones TRACE (Negative); Urine Microscopic Reflex YN ORDER UMIC; Urine Mucus Slight /HPF (None Seen); Urine Nitrite NEGATIVE (Negative); Urine Protein TRACE (Negative); Urine RBC <5 /HPF (None Seen); Urine Urobilinogen Normal (Normal); Urine WBC <5 /HPF (<5); Urine pH 5.5 (5.0-7.0)
[2024-02-20 01:07] LABS: Barbiturates NEGATIVE (NEGATIVE); Benzodiazepines NEGATIVE (NEGATIVE); Cocaine NEGATIVE (NEGATIVE); METHAMPHETAM NEGATIVE (NEGATIVE); Methadone NEGATIVE (NEGATIVE); Opiates NEGATIVE (NEGATIVE); Phencyclidine NEGATIVE (NEGATIVE); THC Cannibis NEGATIVE (NEGATIVE)
--- NOTE | 2024-02-20 02:06 | EDPHYS ---
Physician Documentation [facility] Name: Edwin Linton Age: 69 yrs Sex: Male : 1955 Arrival Date: 02/19/2024 Time: 18:43 Bed 13 Private MD: ED Physician Abad Green HPI: 02/18 19:18 This 69 yrs old Male presents to ER via EMS with complaints of high blood sugar, rn weakness. 19:18 The patient or guardian reports hyperglycemia. Onset: The symptoms/episode rn began/occurred at an unknown time. Current symptoms: In the emergency department the patient's symptoms are unchanged from the initial presentation. The patient has experienced similar episodes in the past. Patient reports generalized weakness and malaise with recurrent falls lately. Worse over the last 2 weeks. Reports has diabetes, insulin-dependent but is homeless and has not been on insulin for at least a few weeks. Patient reports chronic back pain but no new injury from fall. No fever. Patient reports generalized weakness and urinating on himself because he is homeless and gets lightheaded when he stands.. Historical: - Allergies: 18:59 No Known Allergies; rs5 - PMHx: 18:59 Cerebrovascular accident; Hypertensive disorder; Diabetes mellitus; rs5 Hypercholesterolemia; - PSHx: 18:59 None; rs5 - Immunization history:: Adult Immunizations unknown. - Social history:: Smoking status: unknown. - Family history:: not pertinent. - Hospitalizations: : No recent hospitalization is reported. ROS: 19:18 Constitutional: Negative for fever, chills, and weight loss, Neck: Negative for injury, rn pain, and swelling, Cardiovascular: Negative for chest pain, palpitations, and edema, Respiratory: Negative for shortness of breath, cough, wheezing, and pleuritic chest pain, Abdomen/GI: Negative for abdominal pain, nausea, vomiting, diarrhea, and constipation, Back: Negative for injury and pain, MS/Extremity: Negative for injury and deformity, Skin: Negative for injury, rash, and discoloration, Neuro: Positive for generalized weakness and malaise Exam: 19:18 Constitutional: This is a well developed, well nourished patient who is awake, alert, rn and in no acute distress. Disheveled and urine soaked pants Head/Face: Normocephalic, atraumatic. ENT: Dry mucous membranes Cardiovascular: Regular rate and rhythm. No pulse deficits. Respiratory: No increased work of breathing, no retractions or nasal flaring. Abdomen/GI: Soft, nontender MS/ Extremity: Pulses equal, no cyanosis. Neuro: Awake and alert, GCS 15, oriented to person, place, time, and situation. Motor strength 4/5 in all extremities. Sensory grossly intact. Vital Signs: 18:50 BP 149 / 92; Pulse 80; Resp 18; Temp 97.7(O); Pulse Ox 96% on R/A; rs5 19:25 BP 162 / 97; Pulse 78; Resp 14 S; Pulse Ox 100% on R/A; lg3 21:52 BP 163 / 74; Pulse 72; Resp 16 S; Pulse Ox 100% on R/A; lg3 23:16 BP 124 / 76; Pulse 65; Resp 15 S; Pulse Ox 98% on R/A; lg3 02/19 01:02 BP 157 / 83; Pulse 79; Resp 16 S; Pulse Ox 99% on R/A; lg3 02:17 BP 137 / 65; Pulse 64; Resp 16 S; Pulse Ox 100% on R/A; lg3 MDM: 02/18 18:48 Patient medically screened. rn 02/19 04:32 Differential diagnosis: DKA, hyperglycemia, generalized weakness, dehydration. Data rt reviewed: vital signs, nurses notes, lab test result(s), EKG, radiologic studies. Consideration of Admission/Observation Patient was admitted/placed on observation. Management of patient was discussed with the following: Hospitalist: Agrees to admit. I considered the following discharge prescriptions or medication management in the emergency department Medications were administered in the Emergency Department. See MAR. Independent interpretation of the following test(s) in the Emergency Department CT Scan: My interpretation is No intracranial hemorrhage seen on interpretation of CT scan images. Care significantly affected by the following chronic conditions: Diabetes. Care significantly affected by the following Social Determinants of Health: Inadequate housing. Counseling: I had a detailed discussion with the patient and/or guardian regarding the historical points, exam findings, and any diagnostic results supporting the discharge/admit diagnosis, lab results, radiology results, the need for further work-up and treatment in the hospital. Response to treatment: the patient's symptoms have mildly improved after treatment. 02/18 18:50 Order name: Basic Metabolic Panel; Complete Time: 20:43 rn 02/18 18:50 Order name: CBC with Diff; Complete Time: 20:27 rn 02/18 18:50 Order name: Hepatic Function; Complete Time: 20:43 rn 02/18 18:50 Order name: Magnesium; Complete Time: 20:43 rn 02/18 18:50 Order name: Protime (+inr); Complete Time: 20:27 rn 02/18 18:50 Order name: Ptt, Activated; Complete Time: 20:27 rn 02/18 18:50 Order name: Troponin High Sensitivity; Complete Time: 20:43 rn 02/18 18:50 Order name: UDS; Complete Time: 01:10 rn 02/18 18:50 Order name: Urinalysis w/ reflexes; Complete Time: 01:10 rn 02/18 18:50 Order name: BNP; Complete Time: 20:43 rn 02/18 19:48 Order name: Glucose, Ancillary Testing; Complete Time: 19:50 EDMS 02/18 22:03 Order name: Glucose, Ancillary Testing; Complete Time: 23:05 EDMS 02/19 03:20 Order name: CBC with Automated Diff EDMS 02/19 03:20 Order name: CBC with Automated Diff EDMS 02/19 03:20 Order name: Comprehensive Metabolic Panel EDMS 02/19 03:20 Order name: Comprehensive Metabolic Panel EDMS 02/19 03:20 Order name: Lipid Profile EDMS 02/19 03:20 Order name: Lipid Profile EDMS 02/19 03:20 Order name: Protime (+INR) EDMS 02/19 03:20 Order name: Protime (+INR) EDMS 02/19 03:20 Order name: PTT, Activated Partial Thromb EDMS 02/19 03:20 Order name: PTT, Activated Partial Thromb EDMS 02/18 18:50 Order name: CT Head C Spine; Complete Time: 20:27 rn 02/18 18:50 Order name: Chest Single View XRAY; Complete Time: 20:27 rn 02/18 18:50 Order name: EKG; Complete Time: 18:51 rn 02/18 18:50 Order name: Cardiac monitoring; Complete Time: 19:28 rn 02/18 18:50 Order name: EKG - Nurse/Tech; Complete Time: 19:28 rn 02/18 18:50 Order name: IV Saline Lock; Complete Time: 19:59 rn 02/18 18:50 Order name: Labs collected and sent; Complete Time: 19:59 rn 02/18 18:50 Order name: NPO; Complete Time: 19:59 rn 02/18 18:50 Order name: O2 Per Protocol; Complete Time: 19:28 rn 02/18 18:50 Order name: O2 Sat Monitoring; Complete Time: 19:28 rn 02/18 18:50 Order name: Glucose Level; Complete Time: 19:59 rn Administered Medications: 02/18 19:52 Drug: Insulin Regular Human Sub-Q 10 units Sub-Q once {Co-Signature: ha1 (Carla Nascimento lg3 RN).} Route: Sub-Q; Site: abdomen; 23:17 Follow up: Response: No adverse reaction; Blood sugar is lowered lg3 19:59 Drug: NS 0.9% IV 1000 ml IV at 1000 ml once Route: IV; Rate: 1000 ml; Site: left lg3 antecubital; 23:17 Follow up: IV Status: Completed infusion; IV Intake: 1000ml lg3 Disposition Summary: 02/20/24 02:05 Hospitalization Ordered Notes: Hospitalization Status: Observation rt Provider: José Aparicio rt Condition: Stable rt Problem: new rt Symptoms: are unchanged rt Bed/Room Type: Standard rt Location: Telemetry/MedSurg (observation)(02/20/24 04:53) cg Room Assignment: [facility](02/20/24 04:53) cg Diagnosis - Hyperglycemia, unspecified rt - Generalized weakness rt Forms: - Medication Reconciliation Form rt - SBAR form rt - Leadership Thank You Letter rt Signatures: Dispatcher [employer] Kam Guthrie MD MD rn Garcia, Cindy RN RN Casandra Muñoz RN RN lg3 Abad Green MD MD rt Ronak Peres RN RN rs5 Carla Nascimento RN ha1 Corrections: (The following items were deleted from the chart) 02/19 03:10 02:05 Telemetry/MedSurg (observation) rt cg 03: 02:05 rt cg 04:53 03:10 [facility] ER HOLD cg cg 04:53 03:10 ERHOLD- cg cg
--- NOTE | 2024-02-20 02:06 | ER ---
Nurse's Notes [facility] Name: Edwin Linton Age: 69 yrs Sex: Male : 1955 Arrival Date: 02/19/2024 Time: 18:43 Bed 13 Private MD: Diagnosis: Hyperglycemia, unspecified;Generalized weakness Presentation: 02/18 18:50 Chief complaint: EMS states: "High blood sugar and generalized weakness". rs5 18:50 Coronavirus screen: At this time, the client does not indicate any symptoms associated rs5 with coronavirus-19. Ebola Screen: No symptoms or risks identified at this time. Initial Sepsis Screen: Does the patient meet any 2 criteria? No. Patient's initial sepsis screen is negative. Does the patient have a suspected source of infection? No. Patient's initial sepsis screen is negative. Risk Assessment: Do you want to hurt yourself or someone else? Patient reports no desire to harm self or others. Onset of symptoms was February 19, 2024. 18:50 Method Of Arrival: EMS: [facility] rs5 18:50 Acuity: ROLAND 3 rs5 Historical: - Allergies: 18:59 No Known Allergies; rs5 - PMHx: 18:59 Cerebrovascular accident; Hypertensive disorder; Diabetes mellitus; rs5 Hypercholesterolemia; - PSHx: 18:59 None; rs5 - Immunization history:: Adult Immunizations unknown. - Social history:: Smoking status: unknown. - Family history:: not pertinent. - Hospitalizations: : No recent hospitalization is reported. Screenin:25 [facility] ED Fall Risk Assessment (Adult) History of falling in the last 3 months, lg3 including since admission Yes- fall prone (multiple falls) (3 pts) Confusion or Disorientation No (0 pts) Intoxicated or Sedated No (0 pts) Impaired Gait No (0 pts) Mobility Assist Device Used No (0 pt) Altered Elimination No (0 pt) Score/Fall Risk Level 3 or more points = High Risk Oriented to surroundings, Maintained a safe environment, Educated pt \\T\\ family on fall prevention, incl call for assistance when getting out of bed, Assessed \\T\\ reinforced patient's understanding of fall precautions, Provided non-skid footwear. Abuse screen: Denies threats or abuse. Denies injuries from another. Nutritional screening: No deficits noted. Tuberculosis screening: No symptoms or risk factors identified. Assessment: 19:25 General: Appears in no apparent distress. comfortable. General: Behavior is calm, lg3 cooperative. General: Appears unkempt. Pain: Complains of pain in back Pain does not radiate. Pain currently is 5 out of 10 on a pain scale. Pain began years ago. Is chronic. Neuro: No deficits noted. Landin Agitation-Sedation Scale (RASS): 0 - Alert and Calm Level of Consciousness is awake, alert, obeys commands, Oriented to person, place, time, situation. Cardiovascular: No deficits noted. Denies chest pain, shortness of breath, Capillary refill < 3 seconds Clubbing of nail beds is absent JVD is absent Patient's skin is warm and dry. Respiratory: No deficits noted. Airway is patent Respiratory effort is even, unlabored, Respiratory pattern is regular, symmetrical, Breath sounds are clear bilaterally. Denies shortness of breath. GI: No deficits noted. No signs and/or symptoms were reported involving the gastrointestinal system. Abdomen is round non-distended, obese. : No deficits noted. No signs and/or symptoms were reported regarding the genitourinary system. EENT: No deficits noted. No signs and/or symptoms were reported regarding the EENT system. Derm: No deficits noted. No signs and/or symptoms reported regarding the dermatologic system. Skin is intact, is healthy with good turgor, Skin is dry, Skin is normal, Skin temperature is warm. Musculoskeletal: No deficits noted. Circulation, motion, and sensation intact. Range of motion: intact in all extremities, Reports pain in back. 21:48 Reassessment: Patient appears in no apparent distress at this time. No changes from lg3 previously documented assessment. Patient and/or family updated on plan of care and expected duration. Pain level reassessed. Patient is alert, oriented x 3, equal unlabored respirations, skin warm/dry/pink. 23:16 Reassessment: Patient appears in no apparent distress at this time. No changes from lg3 previously documented assessment. Patient and/or family updated on plan of care and expected duration. Pain level reassessed. Patient is alert, oriented x 3, equal unlabored respirations, skin warm/dry/pink. 02/19 01:03 Reassessment: Patient appears in no apparent distress at this time. No changes from lg3 previously documented assessment. Patient and/or family updated on plan of care and expected duration. Pain level reassessed. Patient is alert, oriented x 3, equal unlabored respirations, skin warm/dry/pink. Patient states symptoms have improved. Vital Signs: 02/18 18:50 BP 149 / 92; Pulse 80; Resp 18; Temp 97.7(O); Pulse Ox 96% on R/A; rs5 19:25 BP 162 / 97; Pulse 78; Resp 14 S; Pulse Ox 100% on R/A; lg3 21:52 BP 163 / 74; Pulse 72; Resp 16 S; Pulse Ox 100% on R/A; lg3 23:16 BP 124 / 76; Pulse 65; Resp 15 S; Pulse Ox 98% on R/A; lg3 02/19 01:02 BP 157 / 83; Pulse 79; Resp 16 S; Pulse Ox 99% on R/A; lg3 02:17 BP 137 / 65; Pulse 64; Resp 16 S; Pulse Ox 100% on R/A; lg3 ED Course: 02/18 18:48 Patient arrived in ED. rn 18:48 Kam Mcconnell MD is Attending Physician. rn 18:56 Ronak Peres, SIXTO is Primary Nurse. rs5 18:59 Triage completed. rs5 19:23 EKG done, by ED staff, reviewed by Kam Mcconnell MD. lg3 19:25 Patient maintains SpO2 saturation greater than 95% on room air. lg3 19:25 Patient has correct armband on for positive identification. Placed in gown. Bed in low lg3 position. Call light in reach. Side rails up X 1. Client placed on continuous cardiac and pulse oximetry monitoring. NIBP monitoring applied. gambling monitor on. Door closed. Noise minimized. Warm blanket given. 19:25 Arm band placed on left wrist. lg3 19:40 Missed attempt(s): Bleeding controlled, band aid applied, catheter tip intact. oe 19:41 Inserted saline lock: 22 gauge in left antecubital area, using aseptic technique. Blood oe collected. 19:41 Initial lab(s) drawn, by ED staff, sent to lab. lg3 20:05 Attending Physician role handed off by Kam Mcconnell MD rt 20:05 Abad Green MD is Attending Physician. rt 20:17 CT Head C Spine In Process Unspecified. EDMS 20:17 Chest Single View XRAY In Process Unspecified. EDMS 02/19 02:04 José Aparicio MD is Hospitalizing Provider. rt 04:00 No provider procedures requiring assistance completed. Patient admitted, IV remains in lg3 place. Administered Medications: 02/18 19:52 Drug: Insulin Regular Human Sub-Q 10 units Sub-Q once {Co-Signature: cate1 (Carla Nascimento RN).} Route: Sub-Q; Site: abdomen; 23:17 Follow up: Response: No adverse reaction; Blood sugar is lowered lg3 19:59 Drug: NS 0.9% IV 1000 ml IV at 1000 ml once Route: IV; Rate: 1000 ml; Site: left lg3 antecubital; 23:17 Follow up: IV Status: Completed infusion; IV Intake: 1000ml lg3 Medication: 02/19 04:01 VIS not applicable for this client. lg3 Intake: 02/18 23:17 IV: 1000ml; Total: 1000ml. lg3 Outcome: 02/19 02:05 Decision to Hospitalize by Provider. rt 04:01 Admitted to ER Hold. Please see [facility] for further documentation. lg3 04:01 Condition: stable 04:01 Instructed on the need for admit, Demonstrated understanding of instructions, 05:59 Patient left the ED. lg3 Signatures: Dispatcher [employer] Kam Guthrie MD MD rn Espinosa, [place] oe Able, Lacie, RN RN lg3 Abad Green MD MD rt Ronak Peres RN RN rs5 Carla Nascimento RN ha1
[2024-02-20] MEDS ORDERED: ONDANSETRON 4 MG/2 ML VIAL IV PRN (03:15)
[2024-02-20] MEDS ORDERED: NA CHLORIDE 0.9% 1,000 ML ONE (03:34)
[2024-02-20 03:51] VITALS: BMI 33.9
[2024-02-20] MEDS: NA CHLORIDE 0.9% 1,000 ML IV SCH (04:00)
--- NOTE | 2024-02-20 05:27 | P.HP ---
Certification for Inpatient Patient admitted to: Observation With expected LOS: <2 Midnights Patient will require the following post-hospital care: None Practitioner: I am a practitioner with admitting privileges, knowledge of patient current condition, hospital course, and medical plan of care. Services: Services provided to patient in accordance with Admission requirements found in Title 42 Section 412.3 of the Code of Federal Regulations Patient History Date of Service: 02/20/24 Reason for admission: Hyperglycemia; weakness History of Present Illness: Patient is a 69-year-old gentleman who comes into the hospital with generalized weakness. Patient is homeless, and he has not been taking his insulin. He worries that people bother him quite a bit when he is trying to sleep on the streets. He has of losing his medications. He has not been to a primary care provider, and he is run out of his insulin. He says he lives in [place], and would prefer for his medications to be called into [facility]. Patient's blood sugars were in the 400s. Patient really does not talk much, and patient states he has not slept in a while and was trying to get some sleep. However, patient is also been really weak and having a hard time ambulating. He has had some falls recently because of his weakness. He gets around with his walker. At this time, patient will be admitted to the hospital for observation. Allergies No Known Allergies Allergy (Verified 02/20/24 02:33) Home Medications: Insulin NPH Human Isophane [Novolin N] 40 units SQ TID 02/20/24 - Past Medical/Surgical History Has patient received pneumonia vaccine in the past: No -: Type 2 diabetes -: Homeless - Family History Father Family History: Reviewed- Non-Contributory - Social History Smoking Status: Unknown if ever smoked Alcohol use: No CD- Drugs: No Caffeine use: Yes Place of Residence: Homeless Review of Systems 10-point ROS is otherwise unremarkable Physical Examination - Vital Signs Temperature: 97.2 F Blood Pressure: 133/71 Pulse: 64 Respirations: 17 Pulse Ox (%): 100 - Physical Exam General: Alert, In no apparent distress, Oriented x3 HEENT: Atraumatic, PERRLA, Mucous membr. moist/pink, EOMI, Sclerae nonicteric Neck: Supple, 2+ carotid pulse no bruit, No LAD, Without JVD or thyroid abnormality Respiratory: Clear to auscultation bilaterally, Normal air movement Cardiovascular: Regular rate/rhythm, Normal S1 S2, No murmurs Gastrointestinal: Normal bowel sounds, Soft and benign, Non-distended, No tenderness Musculoskeletal: No clubbing, No swelling, No tenderness Integumentary: Skin lesion, Cyanosis (Patient with scabs on the upper and lower extremities) Neurological: Normal gait, Normal speech, Normal strength at 5/5 x4 extr, Normal tone, Sensation intact, Cranial nerves 3-12 intact, Normal affect Lymphatics: No axilla or inguinal lymphadenopathy - Studies Laboratory Data (last 24 hrs) 02/19/24 02/19/24 02/19/24 19:40 19:40 19:40 WBC 10.70 Hgb 13.4 L Hct 38.9 L Plt Count 277 PT 11.7 INR 1.07 APTT 29.6 Sodium 134 L Potassium 4.3 BUN 25 H Creatinine 1.53 H Glucose 436 H* Magnesium 2.0 Total Bilirubin 0.8 AST 22 ALT 26 Alkaline Phosphatase 132 H Assessment & Plan - Problems (Diagnosis) (1) Hyperglycemia Current Visit: Yes Status: Acute (2) Type 2 diabetes mellitus Current Visit: Yes Status: Acute Qualifiers: Diabetes mellitus terminal superintendent insulin use: with terminal superintendent use (3) Homeless Current Visit: Yes Status: Acute (4) Chronic kidney disease Current Visit: Yes Status: Acute - Plan Plan: 1. Patient is a poorly controlled diabetic who is homeless and not really compliant with his medication because he does not have his prescriptions. Patient will be given IV fluids and we will start him on long-acting insulin. Patient also with acute on chronic kidney disease. Will monitor his renal function closely. Patient has some proteinuria as well. Patient's hemodynamics are stable. Patient will be admitted to the hospital for observation. Plan is to check a hemoglobin A1c. Will continue with saline and will get strict blood sugar control. Patient will need insulin and diabetic meds called into her local pharmacy. 2. Generalized weakness; will get physical therapy to help ambulate the patient. Patient uses a walker to get around. Along with the strength is appropriate he should be stable for discharge. 3. GI DVT prophylax Discharge Plan: Home Plan to discharge in: 24 Hours - Advance Directives Does patient have a Living Will: No Does patient have a Durable POA for Healthcare: No - Code Status/Comfort Care Code Status Assessed: Yes Code Status: Full Code Critical Care: No Time Spent Managing PTS Care (In Minutes): 45
[2024-02-20] MEDS: INSULIN GLARGINE 100 UNIT/ML SQ ONE (06:05)
[2024-02-20] MEDS: INSULIN REGULAR (HUMAN) 100 UNIT/ML SQ SCH (07:30)
[2024-02-20] MEDS ORDERED: PNEUMOCOCCAL VACCINE 0.5 ML IMVAC ONE (09:00)
[2024-02-20] MEDS ORDERED: INFLUENZA VACCINE (for 6+ mo) 0.5 ML DOSE IMVAC ONE (09:00)
[2024-02-20] MEDS ORDERED: D50W 25 GM/50 ML SYRINGE IV PRN (12:34)
[2024-02-20] MEDS ORDERED: GLUCAGON 1 MG/VIAL IM PRN (12:34)
[2024-02-20 12:50] LABS: Anion Gap 8.7 mEq/L (5.0-15.0); Potassium 3.7 mEq/L (3.5-5.1)
[2024-02-20] MEDS: INSULIN LISPRO 100 UNIT/ML ONE (13:09)
[2024-02-20] MEDS: INSULIN LISPRO 100 UNIT/ML SQ SCH (13:13)
--- NOTE | 2024-02-20 13:16 | P.PN ---
Date of Service: 02/20/24 Pt seen and examined. He is resting comfortably in bed. His blood sugar is uncontrolled. Uncontrolled DM II: Pt is homeless and has not take insulin in a while. Will continue accuchek, SSI, lantus 18u qhs and ADA . Will check Ac. Pt reports that he does not eat much in order to control his blood sugar. Non-compliance: Pt was advised to be compliant with home meds. Generalized weakness: Pt ambulates with a rolling walker. Will consult PT. GI ppx: protonix DVT ppx: heparin sibq BID
[2024-02-20] MEDS: HEPARIN 5000 UNIT/ML 1 ML VIAL SQ SCH (20:21)
[2024-02-20] MEDS: INSULIN GLARGINE 100 UNIT/ML SQ SCH (20:21)
[2024-02-21 04:05] LABS: Absolute Basophils 0.1 K/uL (0-0.5); Absolute Eosinophils 0.1 K/uL (0-0.5); Absolute Lymphocytes (CBC) 1.5 K/uL (0.7-4.9); Absolute Monocytes 0.8 K/uL (0.1-1.3); Absolute Neutrophil 5.8 K/uL (1.8-8.0); Basophils % 0.8 % (0-1.3); Eosinophils % 1.5 % (0-4.4); Hematocrit 37.2 % (39.6-49.0); Hemoglobin 12.5 g/dL (13.6-17.9); Lymphocytes % 18.3 % (15.3-44.8); MCH 29.9 pg (27.0-35.0); MCHC 33.7 g/dL (32.0-36.0); MCV 88.7 fL (80-100); MPV 9.2 fL (7.6-11.3); Monocytes % 9.6 % (3.3-12.3); Neutrophils % 69.8 % (41.7-73.7); Nucleated Red Blood Cells % 0.1 % (0-0); Platelets 218 thou/uL (152-406); RBC Red Blood Cell Count 4.19 M/uL (4.33-5.43); Red Cell Distribution Width 13.2 % (12.1-15.2)
[2024-02-21 04:11] LABS: PT Prothrombin Time 10.9 SECONDS (9.5-12.5); PTT, Activated Partial Thromb 28.5 SECONDS (24.3-36.9); Protime INR 0.99
[2024-02-21 04:35] LABS: Albumin 2.6 g/dL (3.4-5.0); Albumin/Globulin Ratio 0.8 (1.1-1.8); Anion Gap 9.8 mEq/L (5.0-15.0); Bilirubin Total 0.3 mg/dL (0.2-1.0); Globulin 3.2 g/dL (2.3-3.5); Potassium 3.8 mEq/L (3.5-5.1); Protein, Total 5.8 g/dL (6.4-8.2)
[2024-02-21] MEDS ORDERED: GLUCAGON 1 MG/VIAL IM PRN ×2 (06:15→08:12)
[2024-02-21] MEDS: INSULIN 70/30 100 UNITS/ML SQ ONE (06:15)
[2024-02-21] MEDS ORDERED: D50W 25 GM/50 ML SYRINGE IV PRN ×2 (06:15→08:12)
--- NOTE | 2024-02-21 11:35 | P.PN ---
Subjective Date of Service: 02/21/24 Chief Complaint: Hyperglycemia; weakness Pt is resting comfortably in bed. His blood sugar is uncontrolled. Will optimize insulin regimen. No other complaints. Review of Systems General: Unremarkable Eyes: Unremarkable ENT: Unremarkable Respiratory: Unremarkable Cardiovascular: Unremarkable Gastrointestinal: Unremarkable Genitourinary: Unremarkable Musculoskeletal: Unremarkable Integumentary: Unremarkable Neurological: Weakness Lymphatics: Unremarkable Physical Examination - Vital Signs Temperature: 97.2 F Blood Pressure: 145/73 Pulse: 68 Respirations: 16 Pulse Ox (%): 99 - Physical Exam General: Alert, In no apparent distress, Oriented x3 HEENT: Atraumatic, Normocephalic, PERRLA Neck: Supple, 2+ carotid pulse no bruit Respiratory: Clear to auscultation bilaterally, Normal air movement Cardiovascular: No edema, Normal pulses, Regular rate/rhythm, Normal S1 S2 Capillary refill: <2 Seconds Gastrointestinal: Normal bowel sounds, Soft and benign, Non-distended Musculoskeletal: No clubbing, No swelling Integumentary: No rashes, No breakdown, No significant lesion Neurological: Normal gait, Normal speech, Normal strength at 5/5 x4 extr, Normal tone, Sensation intact Lymphatics: No axilla or inguinal lymphadenopathy Assessment And Plan - Plan Uncontrolled DM II: Pt is homeless and has not take insulin in a while. Will continue accuchek, SSI, lantus 24u qhs, lispro 8u with meal and ADA diet. Will check Ac. Pt reports that he did not eat much in order to control his blood sugar. Non-compliance: Pt was advised to be compliant with home meds. Generalized weakness: Pt ambulates with a rolling walker. Will consult PT. GI ppx: protonix DVT ppx: heparin subq BID
[2024-02-21] MEDS: INSULIN LISPRO 100 UNIT/ML SQ SCH (12:00)
[2024-02-21] MEDS: INSULIN GLARGINE 100 UNIT/ML SQ SCH (21:11)
[2024-02-22] MEDS: ACETAMINOPHEN 500 MG TAB PO PRN (03:23)
[2024-02-22 06:18] LABS: Absolute Eosinophils 0.2 K/uL (0-0.5); Absolute Lymphocytes (CBC) 1.8 K/uL (0.7-4.9); Absolute Monocytes 0.6 K/uL (0.1-1.3); Absolute Neutrophil 4.3 K/uL (1.8-8.0); Basophils % 0.7 % (0-1.3); Eosinophils % 2.6 % (0-4.4); Hematocrit 33.3 % (39.6-49.0); Hemoglobin 11.5 g/dL (13.6-17.9); Lymphocytes % 25.5 % (15.3-44.8); MCHC 34.5 g/dL (32.0-36.0); MCV 87.1 fL (80-100); MPV 8.8 fL (7.6-11.3); Monocytes % 8.8 % (3.3-12.3); Neutrophils % 62.4 % (41.7-73.7); Nucleated Red Blood Cells % 0.1 % (0-0); Platelets 203 thou/uL (152-406); RBC Red Blood Cell Count 3.83 M/uL (4.33-5.43); Red Cell Distribution Width 13.2 % (12.1-15.2)
[2024-02-22 06:20] LABS: Anion Gap 7.7 mEq/L (5.0-15.0); Potassium 3.7 mEq/L (3.5-5.1)
--- NOTE | 2024-02-22 11:56 | P.PN ---
Subjective Date of Service: 02/22/24 Chief Complaint: Hyperglycemia; weakness Pt is resting comfortably in bed. His blood sugar has improved. Pt walked around with PT. Consulted case managare for placement options. No other complaints. Review of Systems General: Unremarkable Eyes: Unremarkable ENT: Unremarkable Respiratory: Unremarkable Cardiovascular: Unremarkable Gastrointestinal: Unremarkable Genitourinary: Unremarkable Musculoskeletal: Unremarkable Integumentary: Unremarkable Neurological: Unremarkable Lymphatics: Unremarkable Physical Examination - Vital Signs Temperature: 97.7 F Blood Pressure: 120/64 Pulse: 63 Respirations: 16 Pulse Ox (%): 97 - Physical Exam General: Alert, In no apparent distress, Oriented x3 HEENT: Atraumatic, Normocephalic, PERRLA Neck: Supple, 2+ carotid pulse no bruit Respiratory: Clear to auscultation bilaterally, Normal air movement Cardiovascular: No edema, Normal pulses, Regular rate/rhythm, Normal S1 S2 Capillary refill: <2 Seconds Gastrointestinal: Normal bowel sounds, Soft and benign, Non-distended Musculoskeletal: No clubbing, No swelling Integumentary: No rashes, No breakdown Neurological: Normal speech, Normal strength at 5/5 x4 extr, Normal tone, Sensation intact Lymphatics: No axilla or inguinal lymphadenopathy Assessment And Plan - Plan Uncontrolled DM II: Pt is homeless and has not take insulin in a while. Will continue accuchek, SSI, lantus 24u qhs, lispro 8u with meal and ADA diet. Will check Ac. Pt reports that he did not eat much in order to control his blood sugar. Non-compliance: Pt was advised to be compliant with home meds. Generalized weakness: Pt ambulates with a rolling walker. Will consult PT. Deconditioning: Consulted PT. GI ppx: protonix DVT ppx: heparin subq BID Dispo: Pending hospital course. Consulted director of casework department for placement options.
--- NOTE | 2024-02-22 13:46 | EKG ---
Test Date: 2024-02-19 Test Time: 18:12:37 Application Manager: PÉREZ MEASUREMENT RESULTS: Intervals: Rate: 80 MS: 150 QRSD: 96 QT: 398 QTc: 459 Lynch: P: 59 MS: 150 QRS: -44 T: 23 INTERPRETIVE STATEMENTS: Normal sinus rhythm Left axis deviation Abnormal ECG No previous ECG available for comparison Electronically Signed On 02-22-24 13:38:20 CDT by Michael Urrtuia
--- NOTE | 2024-02-23 10:11 | P.PN ---
Subjective Date of Service: 02/23/24 Chief Complaint: Hyperglycemia; weakness Presented with hyperglycemia, patient is homeless, medication noncompliance P[facility] acceptance for [facility] - Physical Exam General: Alert, In no apparent distress, Oriented x3 HEENT: Atraumatic, Normocephalic, PERRLA Neck: Supple, 2+ carotid pulse no bruit Respiratory: Clear to auscultation bilaterally, Normal air movement Cardiovascular: No edema, Normal pulses, Regular rate/rhythm, Normal S1 S2 Capillary refill: <2 Seconds Gastrointestinal: Normal bowel sounds, Soft and benign, Non-distended Musculoskeletal: No clubbing, No swelling Integumentary: No rashes, No breakdown Neurological: Normal speech, Normal strength at 5/5 x4 extr, Normal tone, Sensation intact Lymphatics: No axilla or inguinal lymphadenopathy Review of Systems Per [facility] Physical Examination - Vital Signs Temperature: 97.9 F Blood Pressure: 141/68 Pulse: 60 Respirations: 18 Pulse Ox (%): 99 Assessment And Plan - Plan Assessment plan Diabetes with hyperglycemia, Medication noncompliance sliding scale insulin, long-acting insulin Educated on diabetic diet Blood glucose 492, 475, 201, 250 Essential hypertension Hyperlipidemia Resume appropriate home meds Generalized weakness Deconditioning Recurrent falls History of a CVA Fall precautions, PT eval Ambulates with a rocking rolling walker Microcytic anemia Trend hemoglobin hematocrit Full code Diabetic DVT Heparin disposition: homeless, transition to jail facility Discharge Plan: Other (senior living facility) - Code Status/Comfort Care Code Status: Full Code Critical Care: No Time Spent Managing PTS Care (In Minutes): 35
[2024-02-24] MEDS ORDERED: D10W 250 ML BAG IV PRN (12:10)
[2024-02-24] MEDS ORDERED: CODEINE 30MG/APAP 300MG TAB PO PRN (15:57)
[2024-02-24] MEDS: GABAPENTIN 100 MG CAP PO SCH ×2 (15:57→17:04)
--- NOTE | 2024-02-24 16:02 | P.PN ---
Subjective Date of Service: 02/24/24 Chief Complaint: Hyperglycemia; weakness Presented with hyperglycemia, patient is homeless, medication noncompliance Pending acceptance for [facility] intermediate facility Reports bilateral feet numbness, low back pain, will add as needed analgesics, gabapentin - Physical Exam General: Alert, In no apparent distress, Oriented x3 HEENT: Atraumatic, Normocephalic, PERRLA Neck: Supple, 2+ carotid pulse no bruit Respiratory: Clear to auscultation bilaterally, Normal air movement Cardiovascular: No edema, Normal pulses, Regular rate/rhythm, Normal S1 S2 Capillary refill: <2 Seconds Gastrointestinal: Normal bowel sounds, Soft and benign, Non-distended Musculoskeletal: No clubbing, No swelling Integumentary: No rashes, No breakdown Neurological: Normal speech, Normal strength at 5/5 x4 extr, Normal tone, Sensation intact Lymphatics: No axilla or inguinal lymphadenopathy Review of Systems per HPI Physical Examination - Vital Signs Temperature: 98.2 F Blood Pressure: 158/79 Pulse: 62 Respirations: 18 Pulse Ox (%): 18 Assessment And Plan - Plan Assessment plan Diabetes with hyperglycemia, Medication noncompliance Peripheral sliding scale insulin, long-acting insulin Educated on diabetic diet Blood glucose 492, 475, 201, 250, 122, 100 Start gabapentin, as needed analgesia, fall precautions Essential hypertension Hyperlipidemia Resume appropriate home meds Generalized weakness Deconditioning Recurrent falls History of a CVA Fall precautions, PT eval Ambulates with a rocking rolling walker Microcytic anemia stable Trend hemoglobin hematocrit Hypokalemia improved Trend electrolytes replace as needed Full code Diabetic DVT Heparin disposition: homeless, transition to intermediate facility Discharge Plan: Halfway Critical Care: No Time Spent Managing PTS Care (In Minutes): 35
[2024-02-25] MEDS: CODEINE 30MG/APAP 300MG TAB PO PRN (06:45)
--- NOTE | 2024-02-25 07:26 | P.PN ---
Subjective Date of Service: 02/25/24 Chief Complaint: Hyperglycemia; weakness Presented with hyperglycemia, patient is homeless, medication noncompliance- blood glucose control while in place Pending acceptance for [facility] fdc facility Reports bilateral feet numbness, low back pain, will add as needed analgesics, gabapentin - Physical Exam General: Alert, In no apparent distress, Oriented x3 HEENT: Atraumatic, Normocephalic, PERRLA Neck: Supple, 2+ carotid pulse no bruit Respiratory: Clear to auscultation bilaterally, Normal air movement Cardiovascular: No edema, Normal pulses, Regular rate/rhythm, Normal S1 S2 Capillary refill: <2 Seconds Gastrointestinal: Normal bowel sounds, Soft and benign, Non-distended Musculoskeletal: No clubbing, No swelling Integumentary: No rashes, No breakdown Neurological: Normal speech, Normal strength at 5/5 x4 extr, Normal tone, Sensation intact Lymphatics: No axilla or inguinal lymphadenopathy Review of Systems Per HPI Physical Examination - Vital Signs Temperature: 97.3 F Blood Pressure: 159/80 Pulse: 57 Respirations: 14 Pulse Ox (%): 98 Assessment And Plan - Plan Assessment plan Diabetes with hyperglycemia, Medication noncompliance Peripheral sliding scale insulin, long-acting insulin Educated on diabetic diet Blood glucose 492, 475, 201, 250, 122, 100 Start gabapentin, as needed analgesia, fall precautions Essential hypertension Hyperlipidemia Resume appropriate home meds Generalized weakness Deconditioning Recurrent falls History of a CVA Fall precautions, PT eval Ambulates with a rocking rolling walker Microcytic anemia stable Trend hemoglobin hematocrit Hypokalemia improved Trend electrolytes replace as needed Full code Diabetic DVT Heparin disposition: homeless, transition to fdc facility Discharge Plan: Detention - Code Status/Comfort Care Code Status: Full Code Critical Care: No Time Spent Managing PTS Care (In Minutes): 35
[2024-02-25 10:10] VITALS: O2SAT 94
--- NOTE | 2024-02-26 08:47 | P.PN ---
Subjective Date of Service: 02/26/24 Chief Complaint: Hyperglycemia; weakness Presented with hyperglycemia, patient is homeless, medication noncompliance- blood glucose control while in place Pending acceptance for [facility] custodial facility Reports bilateral feet numbness, low back pain, will add as needed analgesics, gabapentin - Physical Exam General: Alert, In no apparent distress, Oriented x3 HEENT: Atraumatic, Normocephalic, PERRLA Neck: Supple, 2+ carotid pulse no bruit Respiratory: Clear to auscultation bilaterally, Normal air movement Cardiovascular: No edema, Normal pulses, Regular rate/rhythm, Normal S1 S2 Capillary refill: <2 Seconds Gastrointestinal: Normal bowel sounds, Soft and benign, Non-distended Musculoskeletal: No clubbing, No swelling Integumentary: No rashes, No breakdown Neurological: Normal speech, Normal strength at 5/5 x4 extr, Normal tone, Sensation intact Lymphatics: No axilla or inguinal lymphadenopathy Physical Examination - Vital Signs Temperature: 97.2 F Blood Pressure: 124/69 Pulse: 65 Respirations: 16 Pulse Ox (%): 98 Assessment And Plan - Plan Assessment plan Diabetes with hyperglycemia, Medication noncompliance Peripheral sliding scale insulin, long-acting insulin Educated on diabetic diet Blood glucose 492, 475, 201, 250, 122, 100 Start gabapentin, as needed analgesia, fall precautions Essential hypertension Hyperlipidemia Resume appropriate home meds Generalized weakness Deconditioning Recurrent falls History of a CVA Fall precautions, PT eval Ambulates with a rocking rolling walker Microcytic anemia stable Trend hemoglobin hematocrit Hypokalemia improved Trend electrolytes replace as needed Full code Diabetic DVT Heparin disposition: homeless, transition to custodial facility
[2024-02-26 09:22] VITALS: TEMP 97.3
[2024-02-26 14:05] VITALS: BP 123/68
--- NOTE | 2024-02-26 16:05 | P.DS ---
Admission Date: 02/21/24 Discharge Date: 02/26/24 Disposition: ROUTINE DISCHARGE Discharge Condition: GOOD Reason for Admission: Hyperglycemia; weakness Brief History of Present Illness: 69-year-old gentleman who comes into the hospital with generalized weakness. Patient is homeless, and he has not been taking his insulin. He worries that people bother him quite a bit when he is trying to sleep on the streets. He has of losing his medications. He has not been to a primary care provider, and he is run out of his insulin. He says he lives in [place], and would prefer for his medications to be called into [facility]. Patient's blood sugars were in the 400s. Patient really does not talk much, and patient states he has not slept in a while and was trying to get some sleep. However, patient is also been really weak and having a hard time ambulating. He has had some falls recently because of his weakness. He gets around with his walker. At this time, patient will be admitted to the hospital for observation. - Physical Exam General: Alert, In no apparent distress, Oriented x3 HEENT: Atraumatic, PERRLA, Mucous membr. moist/pink, EOMI, Sclerae nonicteric Neck: Supple, 2+ carotid pulse no bruit, No LAD, Without JVD or thyroid abnormality Respiratory: Clear to auscultation bilaterally, Normal air movement Cardiovascular: Regular rate/rhythm, Normal S1 S2, No murmurs Gastrointestinal: Normal bowel sounds, Soft and benign, Non-distended, No tende rness Musculoskeletal: No clubbing, No swelling, No tenderness Integumentary: Skin lesion, Cyanosis (Patient with scabs on the upper and lower extremities) Neurological: Normal gait, Normal speech, Normal strength at 5/5 x4 extr, Normal tone, Sensation intact, Cranial nerves 3-12 intact, Normal affect Lymphatics: No axilla or inguinal lymphadenopathy Hospital Course: 69 year-old male patient presented with generalized weakness, difficulty ambulating, Was noted to have hyperglycemia, peripheral neuropathy. Was evaluated by physical Condition improved with strict blood glucose control, PT eval and treat. As needed analgesics. Patient tolerating diet, stable for discharge to home with follow-up appointment with primary care physician. PROBLEM: Diabetes uncontrolled with hyperglycemia Peripheral neuropathy Generalized weakness Prescription for glucometer, long-acting insulin Semelee, glucose supplies As needed analgesia Tylenol 3 Continue home medicines as previously prescribed GOAL: Clear understanding of disease process INSTRUCTIONS: Physician Discharge Instructions: -DC IV and DC home -Follow-up with PCP in 1 to 2 weeks -Please call Dr. Aparicio at [phone] if any questions regarding hospital stay -Please call nursing station at [phone] if any nursing or medication questions -Return to the emergency room if symptoms worsen Diet: ADA, low sodium Activity: Fall precautions Vital Signs/Physical Exam: Temp Pulse Resp BP Pulse Ox 97.3 F 64 15 123/68 98 02/26/24 12:00 02/26/24 12:00 02/26/24 12:00 02/26/24 12:00 02/26/24 12:00 Laboratory Data at Discharge: WBC 6.90 thou/uL (4.3-10.9) 02/22/24 05:44 Hgb 11.5 g/dL (13.6-17.9) L 02/22/24 05:44 Hct 33.3 % (39.6-49.0) L 02/22/24 05:44 Plt Count 203 thou/uL (152-406) 02/22/24 05:44 PT 10.9 SECONDS (9.5-12.5) 02/21/24 03:17 INR 0.99 02/21/24 03:17 APTT 28.5 SECONDS (24.3-36.9) 02/21/24 03:17 Sodium 139 mEq/L (136-145) D 02/22/24 05:44 Potassium 3.7 mEq/L (3.5-5.1) 02/22/24 05:44 BUN 19 mg/dL (7-18) H 02/22/24 05:44 Creatinine 1.06 mg/dL (0.70-1.30) 02/22/24 05:44 Glucose 204 mg/dL (74-106) H 02/22/24 05:44 Magnesium 2.0 mg/dL (1.6-2.4) 02/19/24 19:40 Total Bilirubin 0.3 mg/dL (0.2-1.0) 02/21/24 03:17 AST 24 U/L (15-37) 02/21/24 03:17 ALT 24 U/L (16-61) 02/21/24 03:17 Alkaline Phosphatase 135 U/L (45-117) H 02/21/24 03:17 Triglycerides 392 mg/dL (<150) H 02/21/24 03:17 Cholesterol 150 mg/dL (<200) 02/21/24 03:17 HDL Cholesterol 37 mg/dL (40-60) L 02/21/24 03:17 Cholesterol/HDL Ratio 4.05 02/21/24 03:17 Home Medications: Codeine/APAP [Tylenol W/Codeine #3 tab] 1 tab PO Q6HP PRN #30 tab 02/26/24 Insulin Glargine,Hum.rec.anlog [Semglee] 24 unit SQ DAILY AT SUPPER #2 syr 02/26/24 Lancets/Blood Glucose Strips [Gojji Lancet 30G-Gluc Tst Strp] 1 each PRN #100 tab 02/26/24 Lancets/Blood Glucose Strips [Gojji Lancet 30G-Gluc Tst Strp] 1 each PRN #100 unit 02/26/24 Syr-Nd,Ins,0.3/Container,Empty [Ultiguard Safe0.3ml 30G 12.7MM] 1 each MC DAILY #100 syr 02/26/24 Syring-Needl,Disp,Insul,0.3 ml [Caretouch Insulin Syringe] 1 each MC DAILY #100 syr 02/26/24 New Medications: Syring-Needl,Disp,Insul,0.3 ml [Caretouch Insulin Syringe] 1 each MC DAILY #100 syr Lancets/Blood Glucose Strips [Gojji Lancet 30G-Gluc Tst Strp] 1 each MC PRN #100 unit Lancets/Blood Glucose Strips [Gojji Lancet 30G-Gluc Tst Strp] 1 each PRN #100 tab Insulin Glargine,Hum.rec.anlog [Semglee] 24 unit SQ DAILY AT SUPPER #2 syr Codeine/APAP [Tylenol W/Codeine #3 tab] 1 tab PO Q6HP PRN #30 tab PRN Reason: Pain Syr-Nd,Ins,0.3/Container,Empty [Ultiguard Safe0.3ml 30G 12.7MM] 1 each DAILY #100 syr Physician Discharge Instructions: -Follow-up with PCP in 1 to 2 weeks -Follow-up with Cardiology in 1 to 2 weeks -Please call Dr. Aparicio at [phone] if any questions regarding hospital stay -Please call nursing station at [phone] if any nursing or medication questions -Return to the emergency room if symptoms worsen Diet: ADA Activity: Fall precautions Followup: NONE,NONE [Primary Care Provider] - Michael Urrutia MD [ACTIVE - CAN ADMIT] - 1-2 Weeks Time spent managing pt's care (in minutes): 55
== END 2024-02-26 15:56 | disposition home or self-care (01) | DRG 638 ==
LOC: ER 18:43 → ERHOLD 02-20 03:15 → 4TH 02-20 04:59 → OBSVTOIN 02-21 21:10
PROVIDERS: ADMIT Hospitalist; ATTEND Hospitalist
DX: E11.65 Type 2 diabetes mellitus with hyperglycemia (principal); Z59.00 Homelessness unspecified; N18.9 Chronic kidney disease, unspecified; E11.22 Type 2 diabetes mellitus with diabetic chronic kidney disease; E11.42 Type 2 diabetes mellitus with diabetic polyneuropathy; D63.1 Anemia in chronic kidney disease; D50.9 Iron deficiency anemia, unspecified; E78.00 Pure hypercholesterolemia, unspecified; E87.6 Hypokalemia; G89.29 Other chronic pain; M54.9 Dorsalgia, unspecified; T38.3X6A Underdosing of insulin and oral hypoglycemic [antidiabetic] drugs, initial encounter; R29.6 Repeated falls; Z79.4 Long term (current) use of insulin; Z91.81 History of falling; Z86.73 Personal history of transient ischemic attack (TIA), and cerebral infarction without residual deficits; Z91.148 Patient's other noncompliance with medication regimen for other reason; Z91.128 Patient's intentional underdosing of medication regimen for other reason
CPT/HCPCS: 36415; 70450; 71045; 72125; 80048; 80053; 80061; 80076; 80307; 81001; 82947; 83036; 83735; 83880; 84484; 85025; 85610; 85730; 93005; 96360; 96361; 96372; 97116; 97161; 99285; G0378; J1644; J1815; J7030

== ENCOUNTER 2024-03-01 10:51 | Emergency (ER) | payer OTHER ==
--- OUTSIDE RECORDS SUMMARY | 2024-03-01 10:56 | XMS REPORT | Continuity of Care Document ---
Author Name Unknown Address [address] [facility] [address] [place] [address] [facility] Address [address] [facility] [address] [place] [address] Care Team Providers Care Grain Sampler Name Role Phone RAKESH SHORE Primary Care Physician Unavailab DAVID Velásquez Attending Clinician Unavailable David White DO Attending Clinician [phone] TARA IRELAND Attending Clinician Unavailable Tara Ireland MD Attending Clinician [phone] DESTINY MULLER Attending Clinician Unavailable ZO GREEN Attending Clinician Unavailab Zo Rizzo DO Attending Clinician [phone] SILAS GREENE Attending Clinician Unavailable SILAS GREENE Attending Clinician Unavailable JACKIE DIAZ Attending Clinician Unavailab Jackie Moore DO Attending Clinician [phone] Lorene Stein Attending Clinician Tl Hayes MD Attending Clinician [phone] TL HAYES Attending Clinician Unavailable Georgina Garcia RN Attending Clinician Unava ilable Doctor Unassigned, Lavelle Attending Clinician U navailable Provider, [facility] Attending Clinician Un available Lesli Kasper Attending Clinician [phone] Pob, 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 Attending Clinician UnavailNIMISHA Haywood Attending Clinician Unavail able KUNAL JOEL Attending Clinician Unavailable Darrell Maxwell MD Attending Clinician [phone] Yossi Siddiqi Attending Clinician [phone] YOSSI PRASAD Attending Clinician Unavailable IdaliaDebra fam RD Attending Clinician [phone] IDALIA DEBRA Attending Clinician Unavailable DARRELL BECKFORD Attending Clinician Darrell Haley MD Attending Clinician + [phone] Chelle Fernandez MD Attending Clinician [phone] CHELLE FERNANDEZ Attending Clinician Unavailable Markus OSPINA, Natividad Xiong Attending Clinician Glo Way MD Attending Clinician [phone] GLO FINN Attending Clinician Unavailable Kendall Campa MD Attending Clinician [phone] JOCELYN GREER Attending Clinician UnavailDARRELL Khalil III Attending Clinician UnavailMARIAMA Castro Attending Clinician UnavailTARA Luther Admitting Clinician Unavailable DESTINY MULLER Admitting Clinician Unavailable ZO GREEN Admitting Clinician Unavailab CHELLE Montenegro Admitting Clinician Unavailable TL HAYES Admitting Clinician Unavailable Glo Finn MD Admitting Clinician [phone] GLO FINN Admitting Clinician Unavailable Payers Payer Name Policy Type Policy Number Effective Date Expirati on Date Source [employer] MEDICARE OUT OF NETWORK [id number] 2023 00:00:00 [employer] (MEDICARE REPLACEMENT HMO) [id number] 2022 00:00:00 MEDICARE PART A \\T\\ B [id number] 2018 00:00:00 2019 00:00:00 COMMERCIAL NON-CONTRACT GENERIC [id number] 2018 00:00:00 2019 00:00:00 Problems Condition Name Condition Details Condition Category Status Onset Date Resolution Date Last Treatment Date Treating Clinician Comments Source Omental infarction Omental infarction Disease Active 3-09 00:00: 00 [facility] Psoriasifo rm dermatitis Psoriasifo rm dermatitis Disease Active 8-18 00:00: 00 [facility] Need for 23-polyval ent pneumococc al polysaccha ride vaccine Need for 23-polyval ent pneumococc al polysaccha ride vaccine Disease Active 3-28 00:00: 00 [facility] Cellulitis of foot, left Cellulitis of foot, left Disease Active 5-21 00:00: 00 [facility] Edema of both legs Edema of both legs Disease Active 02-27 00:00: 00 [facility] Erectile dysfunctio n, unspecifie d erectile dysfunctio n type Erectile dysfunctio n, unspecifie d erectile dysfunctio n type Disease Active 02-27 00:00: 00 [facility] Essential hypertensi on Essential hypertensi on Disease Active 02-27 00:00: 00 [facility] Edema of both legs Edema of both legs Disease Active 02-27 00:00: 00 [facility] Erectile dysfunctio n, unspecifie d erectile dysfunctio n type Erectile dysfunctio n, unspecifie d erectile dysfunctio n type Disease Active 02-27 00:00: 00 [facility] Acute midline low back pain without sciatica Acute midline low back pain without sciatica Disease Active 01-18 00:00: 00 [facility] Medicare annual wellness visit, subsequent Medicare annual wellness visit, subsequent Disease Active 12-01 00:00: 00 Overview: Formattin g of this note might be different from the original. Added automatic ally from request for surgery [id number] [facility] Need for hepatitis C screening test Need for hepatitis C screening test Disease Active 2018-11 00:00: 00 [facility] Homelessne ss Homelessne ss Disease Active 2018-11 00:00: 00 [facility] Lesion of matthew Lesion of matthew Disease Active 2018-11 00:00: 00 [facility] Dyslipidem ia Dyslipidem ia Disease Active 2018-11 00:00: 00 [facility] Encounter for screening colonoscop y for non-high-r isk patient Encounter for screening colonoscop y for non-high-r isk patient Disease Active 2018-11 00:00: 00 [facility] 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 Disease Active 2018-11 00:00: 00 [facility] 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9) Obesity (BMI 30-39.9) Disease Active 03-17 00:00: 00 [facility] Allergies, Adverse Reactions, Alerts Allergy Name Allergy Type Status Severity Reaction(s) Onset Date Inactive Date Treating Clinician Comments Source NO KNOWN ALLERGIE S Drug Class Active [facility] Social History Social Habit Start Date Stop Date Quantity Comments [facility] 2024-02-06 00:00:00 2024-02-06 00:00:00 Current non-drinker of alcohol (finding) [facility] Exposure to SARS-CoV-2 (event) 2021-06-10 00:00:00 2021-07-10 10:13:00 Not sure [facility] History of Social function 2021-07-10 00:00:00 2021-07-10 00:00:00 [facility] Tobacco use and exposure 2019-01-14 00:00:00 2019-01-14 00:00:00 Smokeless tobacco non-user [facility] Sex Assigned At 1955 00:00:00 1955 00:00:00 [facility] Smoking Status Start Date Stop Date Source Never smoked tobacco [facility] Medications Ordered Medication Name Filled Medication Name Start Date Stop Date Current Medication? Ordering Clinician Indication Dosage Frequency Signature (SIG) Comments Components Source meclizine (TRAVEL-EAS E (MECLIZINE) ) tablet 25 mg 02-09 17:15: 00 02-09 17:17 :00 No 25mg 25 mg, Oral, ONCE, 1 dose, On Thu02/10/24 at 1215, [facility] ketorolac (TORADOL) injection 15 mg 02-08 20:00: 00 02-08 20:42 :00 No 15mg 15 mg, Intramuscu lar, ONCE, 1 dose, On Thu02/09/24 at 1500, Routine [facility] methocarbam oL (ROBAXIN) tablet 1,000 mg 02-08 19:15: 00 02-08 20:43 :00 No 1000mg 1,000 mg, Oral, ONCE, 1 dose, On Thu02/09/24 at 1415, [facility] cyclobenzap rine (FLEXERIL) tablet 10 mg 02-05 15:30: 00 02-05 15:14 :00 No 10mg 10 mg, Oral, ONCE, 1 dose, On 02/06/24 at 1030, Routine [facility] cyclobenzap rine 10 mg tablet 02-05 00:00: 00 02-11 04:59 :00 Yes [id number] 10mg Take 1 tablet by mouth in the morning and 1 tablet at noon and 1 tablet in the evening. Do all this for 15 doses. [facility] dicyclomine (BENTYL) tablet 20 mg 01-29 20:45: 00 01-29 20:51 :00 No 20mg 20 mg, Oral, ONCE, 1 dose, On 01/30/24 at 1445, [facility] methocarbam oL (ROBAXIN) tablet 1,000 mg 01-29 19:15: 00 01-29 19:06 :00 No 1000mg 1,000 mg, Oral, ONCE, 1 dose, On 01/30/24 at 1315, RICHARD [facility] ketorolac (TORADOL) tablet 10 mg 01-29 17:45: 00 01-29 17:01 :00 No 10mg 10 mg, Oral, ONCE, 1 dose, On 01/30/24 at 1145, Routine [facility] tiZANidine 4 mg tablet 01-29 00:00: 00 Yes [id number] 4mg Take 1 tablet by mouth every 6 (six) hours as needed for Pain (scale 7-10). [facility] dicyclomine 20 mg tablet 01-29 00:00: 00 Yes [id number] 20mg Take 1 tablet by mouth 4 (four) times daily as needed for Abdominal pain. [facility] ibuprofen (IBU) tablet 600 mg 01-15 03:30: 00 01-15 03:42 :00 No 600mg 600 mg, Oral, ONCE, 1 dose, On Sheree 01/14/24 at 2130, RICHARD [facility] methocarbam oL (ROBAXIN) tablet 750 mg 01-15 03:26: 00 01-15 03:42 :00 No 750mg 750 mg, Oral, ONCE NOW, 1 dose, On Sheree 01/14/24 at 2130, [facility] LISINOPRIL- HYDROCHLORO THIAZIDE 10-12.5 mg per tablet 02-17 00:00: 00 Yes [id number] Take 1 tablet by mouth once daily [facility] blood sugar diagnostic (TRUE METRIX GLUCOSE TEST STRIP) strip 2020-11 00:00: 00 Yes [id number] Monitor Blood Glucose daily [facility] simvastatin 40 mg tablet 2020-11 00:00: 00 Yes [id number] 40mg Take 1 tablet by mouth at bedtime. [facility] furosemide 20 mg tablet 2020-11 00:00: 00 Yes [id number] 20mg Take 1 tablet by mouth daily. [facility] lancets (TRUEPLUS LANCETS) 33 gauge Misc 2020-11 00:00: 00 Yes [id number] Monitor Blood Glucose daily [facility] Alcohol Swabs (BD SINGLE USE SWABS REGULAR) PadM 2020-11 00:00: 00 Yes [id number] Apply to area(s) daily. Monitor Blood Glucose daily [facility] SIMVASTATIN 40 mg tablet 2020-11 00:00: 00 10-29 00:00 :00 No [id number] 40mg TAKE 1 TABLET BY MOUTH AT BEDTIME [facility] insulin NPH (HUMULIN N NPH U-100 INSULIN) 100 unit/mL injection 07-10 00:00: 00 Yes [id number] INJECT 35 UNITS SUBCUTANEO USLY EVERY MORNING AND EVENING. Office visit needed for further refills. [facility] metFORMIN 1,000 mg tablet 07-10 00:00: 00 Yes [id number] 1000mg Take 1 tablet by mouth 2 (two) times daily with meals. [facility] lisinopriL- hydrochloro thiazide 10-12.5 mg per tablet 07-10 00:00: 00 02-17 00:00 :00 No [id number] 1{tbl} Take 1 tablet by mouth daily. [facility] furosemide 20 mg tablet 07-10 00:00: 00 10-29 00:00 :00 No [id number] 20mg Take 1 tablet by mouth every Thursday, and Thursday in the evening. [facility] simvastatin (ZOCOR) 40 mg tablet 07-10 00:00: 00 10-04 00:00 :00 No [id number] 40mg Take 1 tablet by mouth at bedtime. [facility] insulin NPH (HUMULIN N NPH U-100 INSULIN) 100 unit/mL injection 06-19 00:00: 00 07-10 00:00 :00 No [id number] INJECT 35 UNITS SUBCUTANEO USLY EVERY MORNING AND EVENING. Office visit needed for further refills. [facility] HUMULIN N NPH U-100 INSULIN 100 unit/mL injection 05-21 00:00: 00 06-19 00:00 :00 No [id number] INJECT 35 UNITS SUBCUTANEO USLY IN THE MORNING AND IN THE EVENING [facility] furosemide 20 mg tablet 02-15 00:00: 00 07-10 00:00 :00 No [id number] 20mg Take 1 tablet by mouth every Thursday, and Thursday in the evening. [facility] sildenafiL 50 mg tablet 02-14 00:00: 00 Yes [id number] 50mg Take 1 tablet by mouth as needed (Erectile dysfunctio n). Take 50mg x 1, about 30 mins - 4 hours prior to sexual activity. [facility] insulin NPH (HUMULIN N NPH U-100 INSULIN) 100 unit/mL injection 02-14 00:00: 00 05-21 00:00 :00 No [id number] INJECT 35 UNITS SUBCUTANEO USLY IN THE MORNING AND IN THE EVENING [facility] HUMULIN N NPH U-100 INSULIN 100 unit/mL injection 02-10 00:00: 00 02-14 00:00 :00 No [id number] INJECT 35 UNITS SUBCUTANEO USLY IN THE MORNING AND IN THE EVENING [facility] 02-06 00:00: 00 Yes [id number] E11.8: dispense Insulin Syringe 31 gauge brand covered by insurance. Monitor Blood Sugar at Home BID [facility] 02-06 00:00: 00 Yes [id number] E11.8: dispense Insulin Syringe 31 gauge brand covered by insurance. Monitor Blood Sugar at Home BID [facility] Insulin Syringe-Nee dle U-100 1 mL 27 gauge x 1/2" Syrg 01-22 00:00: 00 Yes [id number] Use as directed [facility] Insulin Syringe-Nee dle U-100 1 mL 27 gauge x 1/2" Syrg 3- 00:00: 00 Yes [id number] Use as directed [facility] Insulin Syringe-Nee dle U-100 1 mL 27 gauge x 1/2" Syrg 3- 00:00: 00 Yes [id number] Use as directed [facility] Insulin [place], Disposable, (PHUC PEN NEEDLE) 32 gauge x 5/32" Nd 3- 00:00: 00 Yes [id number] [facility] [place], Disposable, (PHUC PEN NEEDLE) 32 gauge x 5/32" Ndle 3- 00:00: 00 Yes [id number] Use as directed [facility] Insulin [place], Disposable, (PHUC PEN NEEDLE) 32 gauge x 5/32" [facility] 3- 00:00: 00 Yes [id number] Use as directed [facility] aspirin 81 mg EC tablet 07-09 00:00: 00 Yes [id number] 81mg Take 1 tablet by mouth daily. [facility] potassium chloride 10 mEq CR tablet 07-09 00:00: 00 Yes [id number] 10meq Take 1 tablet by mouth every Thursday, and Thursday in the evening. [facility] lisinopril 10 mg tablet 07-09 00:00: 00 07-10 00:00 :00 No [id number] 10mg Take 1 tablet by mouth daily. [facility] simvastatin (ZOCOR) 40 mg tablet 07-09 00:00: 00 07-10 00:00 :00 No [id number] 40mg Take 1 tablet by mouth at bedtime. [facility] metFORMIN 1,000 mg tablet 07-09 00:00: 00 07-10 00:00 :00 No [id number] 1000mg Take 1 tablet by mouth 2 (two) times daily with meals. [facility] furosemide 20 mg tablet 07-09 00:00: 00 02-14 00:00 :00 No [id number] 20mg Take 1 tablet by mouth every Thursday, and Thursday in the evening. [facility] insulin NPH 100 unit/mL injection 07-09 00:00: 00 02-10 00:00 :00 No [id number] 35U inject 35 Units under the skin every morning and evening. [facility] Insulin [place], Disposable, (PHUC PEN NEEDLE) 32 gauge x 5/32" Ndle 07-09 00:00: 00 01-21 00:00 :00 No [id number] Use as directed [facility] potassium chloride 10 mEq CR tablet 04-13 00:00: 07-09 00:00 :00 No [id number] 10meq Take 1 tablet by mouth every Thursday, and Thursday in the evening. [facility] furosemide 20 mg tablet 04-13 00:00: 07-09 00:00 :00 No [id number] 20mg Take 1 tablet by mouth every Thursday, and Thursday in the evening. [facility] doxycycline hyclate 100 mg tablet 04-12 00:00: 07-09 00:00 :00 No [id number] 100mg Take 1 tablet by mouth 2 (two) times daily. [facility] diph,pertus (acel),teta nus (ADACEL) injection 0.5 mL 03-12 14:00: 00 03-13 01:59 :00 No .5mL 0.5 mL, Intramuscu lar, ONCE, 1 dose, Thu03/12/20 at 0900, Routine [facility] clindamycin 300 mg capsule 03-12 00:00: 00 03-23 04:59 :00 No [id number] 300mg Take 1 capsule by mouth 4 (four) times daily for 10 days. [facility] sildenafil 50 mg tablet 02-27 00:00: 02-14 00:00 :00 No [id number] 50mg Take 1 tablet by mouth as needed (Erectile dysfunctio n). Take 50mg x 1, about 30 mins - 4 hours prior to sexual activity. [facility] metFORMIN 1,000 mg tablet 01-18 00:00: 00 07-09 00:00 :00 No [id number] 1000mg Take 1 tablet by mouth 2 (two) times daily with meals. [facility] ondansetron (ZOFRAN (PF)) injection 4 mg 12-30 17:29: 59 Yes 4mg 4 mg, Slow IV Push, PRN, 1 dose, Starting Thu12/30/19 at 1129, Until Discontinu ed, Routine, Nausea and Vomiting (N/V), PACU [facility] water for irrigation irrigation solution 12-30 16:20: 00 Yes PRN, Starting Thu12/30/19 at 1020, Until Discontinu ed, Routine, Intra-op [facility] simethicone (GAS RELIEF (SIMETHICON E)) 40 mg/0.6 mL drops 12-30 16:19: 00 Yes PRN, Starting Thu12/30/19 at 1019, Until Discontinu ed, Routine, Intra-op [facility] NaCl 0.9% (NS) IV infusion 1,000 mL 12-30 13:45: 00 Yes 1000mL at 42 mL/hr, IV Infusion, CONTINUOUS , Starting Thu12/30/19 at 0745, Until Discontinu ed, Routine, DSU Pre-op [facility] peg-electro lyte soln 236-22.74-6 .74 -5.86 gram solution 11-30 00:00: 00 Yes Take as directed [facility] prednisoLON E acetate 1 % ophthalmic suspension drops 2018-11 00:00: 00 Yes [id number] 1[drp] Place 1 Drop in right eye 4 (four) times daily. [facility] ofloxacin (OCUFLOX) 0.3 % ophthalmic solution 2018-11 00:00: 00 Yes [id number] 1[drp] Place 1 Drop in right eye 3 (three) times daily. [facility] aspirin 81 mg EC tablet 2018-11 00:00: 07-09 00:00 :00 No [id number] 81mg Take 1 tablet by mouth daily. [facility] Insulin [place], Disposable, (PHUC PEN NEEDLE) 32 gauge x 5/32" Ndle 2018-11 00:00: 00 07-09 00:00 :00 No [id number] Use as directed [facility] lactobacill us comb no.10 (PROBIOTIC) 20 billion cell Cap 06-10 00:00: 07-09 00:00 :00 No [id number] 1{capsu le} Take 1 capsule by mouth 2 (two) times daily. [facility] simvastatin (ZOCOR) 40 mg tablet 05-30 00:00: 00 07-09 00:00 :00 No [id number] 40mg Take 1 tablet by mouth at bedtime. [facility] lisinopril 10 mg tablet 05-30 00:00: 07-09 00:00 :00 No [id number] 10mg Take 1 tablet by mouth daily. [facility] insulin NPH 100 unit/mL injection 05-30 00:00: 07-09 00:00 :00 No [id number] 35U inject 35 Units under the skin every morning and evening. [facility] metFORMIN 500 mg tablet 05-30 00:00: 00 01-18 00:00 :00 No [id number] 500mg Take 1 tablet by mouth 2 (two) times daily with meals. [facility] Vital Signs Vital Name Observation Time Observation Value Comments S otoniel Systolic blood pressure 2024-02-10 19:50:00 158 mm[Hg] [facility] Diastolic blood pressure 2024-02-10 19:50:00 87 mm[Hg] [facility] Heart rate 2024-02-10 19:50:00 86 /min [facility] Respiratory rate 2024-02-10 19:50:00 18 /min [facility] Oxygen saturation in Arterial blood by Pulse oximetry 2024-02-10 19:50:00 96 /min [facility] Body temperature 2024-02-10 16:57:00 36.72 Ginny [facility] Body height 2024-02-10 16:57:[address] [facility] Body weight 2024-02-10 16:57:[address] [facility] BMI 2024-02-10 16:57:00 31.57 kg/m2 Univ [facility] Systolic blood pressure 2024-02-09 22:00:00 143 mm[Hg] [facility] Diastolic blood pressure 2024-02-09 22:00:00 76 mm[Hg] [facility] Heart rate 2024-02-09 22:00:00 83 /min [facility] Respiratory rate 2024-02-09 22:00:00 16 /min [facility] Oxygen saturation in Arterial blood by Pulse oximetry 2024-02-09 22:00:00 100 /min [facility] Body temperature 2024-02-09 19:02:00 35.94 Ginny [facility] Body height 2024-02-09 19:02:[address] [facility] Body weight 2024-02-09 19:02:00 99.791 kg [facility] BMI 2024-02-09 19:02:00 31.57 kg/m2 [facility] Systolic blood pressure 2024-02-06 14:26:00 163 mm[Hg] [facility] Diastolic blood pressure 2024-02-06 14:26:00 77 mm[Hg] [facility] Heart rate 2024-02-06 14:26:00 71 /[facility] 2024-02-06 14:26:00 36.61 Ginny [facility] Respiratory rate 2024-02-06 14:26:00 16 /min [facility] Body height 2024-02-06 14:26:[address] [facility] Body weight 2024-02-06 14:26:[address] [facility] BMI 2024-02-06 14:26:00 36.61 kg/m2 Univ [facility] Oxygen saturation in Arterial blood by Pulse oximetry 2024-02-06 14:26:00 98 /min [facility] Systolic blood pressure 2024-01-30 16:05:00 150 mm[Hg] [facility] Diastolic blood pressure 2024-01-30 16:05:00 89 mm[Hg] [facility] Heart rate 2024-01-30 16:05:00 71 /min [facility] Body temperature 2024-01-30 16:05:00 37 Ginny [facility] Respiratory rate 2024-01-30 16:05:00 18 /min [facility] Body height 2024-01-30 16:05:00 177.8 cm [facility] Body weight 2024-01-30 16:05:00 100.699 kg [facility] BMI 2024-01-30 16:05:00 31.85 kg/m2 [facility] Oxygen saturation in Arterial blood by Pulse oximetry 2024-01-30 16:05:00 99 /min [facility] Systolic blood pressure 2024-01-15 03:18:00 150 mm[Hg] [facility] Diastolic blood pressure 2024-01-15 03:18:00 75 mm[Hg] [facility] Heart rate 2024-01-15 03:18:00 79 /min [facility] Body temperature 2024-01-15 03:18:00 36.5 Ginny [facility] Respiratory rate 2024-01-15 03:18:00 18 /min [facility] Body height 2024-01-15 03:18:[address] [facility] Body weight 2024-01-15 03:18:00 99.791 kg [facility] BMI 2024-01-15 03:18:00 31.57 kg/m2 Univ [facility] Oxygen saturation in Arterial blood by Pulse oximetry 2024-01-15 03:18:00 98 /min [facility] Systolic blood pressure 2024-01-05 12:37:00 161 mm[Hg] [facility] Diastolic blood pressure 2024-01-05 12:37:00 76 mm[Hg] [facility] Heart rate 2024-01-05 12:37:00 76 /min Unive [facility] Body temperature 2024-01-05 12:37:00 36.89 Ginny [facility] Respiratory rate 2024-01-05 12:37:00 18 /min [facility] Body height 2024-01-05 12:37:[address] [facility] Body weight 2024-01-05 12:37:[address] [facility] BMI 2024-01-05 12:37:00 31.57 kg/m2 Univ [facility] Oxygen saturation in Arterial blood by Pulse oximetry 2024-01-05 12:37:00 96 /min [facility] Systolic blood pressure 2021-07-10 22:35:00 173 mm[Hg] [facility] Diastolic blood pressure 2021-07-10 22:35:00 71 mm[Hg] [facility] Heart rate 2021-07-10 22:35:00 50 /min Unive [facility] Body height 2021-07-10 22:35:00 177.8 cm [facility] Body weight 2021-07-10 22:35:00 114.306 kg [facility] BMI 2021-07-10 22:35:00 36.16 kg/m2 Univ [facility] Oxygen saturation in Arterial blood by Pulse oximetry 2021-07-10 22:35:00 99 /min [facility] Systolic blood pressure 2021-07-10 15:12:00 173 mm[Hg] [facility] Diastolic blood pressure 2021-07-10 15:12:00 71 mm[Hg] [facility] Heart rate 2021-07-10 15:10:00 50 /min [facility]ive [facility] Body height 2021-07-10 15:10:[address] [facility] Body weight 2021-07-10 15:10:00 114.306 kg [facility] BMI 2021-07-10 15:10:00 36.16 kg/m2 [facility] Oxygen saturation in Arterial blood by Pulse oximetry 2021-07-10 15:10:00 99 /min [facility] Systolic blood pressure 2021-05-20 23:06:00 130 mm[Hg] [facility] Diastolic blood pressure 2021-05-20 23:06:00 76 mm[Hg] [facility] Heart rate 2021-05-20 23:05:00 67 /min [facility] Body temperature 2021-05-20 23:05:00 36.33 Ginny [facility] Respiratory rate 2021-05-20 23:05:00 18 /min [facility] Body height 2021-05-20 23:05:00 177.8 cm [facility] Body weight 2021-05-20 23:05:00 112.583 kg [facility] BMI 2021-05-20 23:05:00 35.61 kg/m2 [facility] Oxygen saturation in Arterial blood by Pulse oximetry 2021-05-20 23:05:00 97 /min [facility] Systolic blood pressure 2021-02-14 21:09:00 153 mm[Hg] [facility] Diastolic blood pressure 2021-02-14 21:09:00 76 mm[Hg] [facility] Heart rate 2021-02-14 21:09:00 58 /min [facility] Body temperature 2021-02-14 21:09:00 36.72 Ginny [facility] Respiratory rate 2021-02-14 21:09:00 18 /min [facility] Body weight 2021-02-14 21:09:00 115.667 kg [facility] BMI 2021-02-14 21:09:00 35.57 kg/m2 [facility] Oxygen saturation in Arterial blood by Pulse oximetry 2021-02-14 21:09:00 97 /min [facility] Systolic blood pressure 2020-04-12 14:51:00 126 mm[Hg] [facility] Diastolic blood pressure 2020-04-12 14:51:00 76 mm[Hg] [facility] Heart rate 2020-04-12 14:51:00 58 /min Un[facility] Body temperature 2020-04-12 14:51:00 36.72 Ginny [facility] Respiratory rate 2020-04-12 14:51:00 18 /min [facility] Body height 2020-04-12 14:51:00 180.3 cm [facility] Body weight 2020-04-12 14:51:00 113.399 kg [facility] BMI 2020-04-12 14:51:00 34.87 kg/m2 [facility] Oxygen saturation in Arterial blood by Pulse oximetry 2020-04-12 14:51:00 98 /min [facility] Systolic blood pressure 2020-03-12 13:30:00 115 mm[Hg] [facility] Diastolic blood pressure 2020-03-12 13:30:00 81 mm[Hg] [facility] Heart rate 2020-03-12 13:30:00 51 /min [facility] Respiratory rate 2020-03-12 13:30:00 20 /min [facility] Oxygen saturation in Arterial blood by Pulse oximetry 2020-03-12 13:30:00 97 /min [facility] Body temperature 2020-03-12 12:37:00 36.22 Ginny [facility] Body weight 2020-03-12 12:37:00 111.131 kg [facility] BMI 2020-03-12 12:37:00 34.17 kg/m2 [facility] Systolic blood pressure 2020-01-18 13:42:00 136 mm[Hg] [facility] Diastolic blood pressure 2020-01-18 13:42:00 73 mm[Hg] [facility] Heart rate 2020-01-18 13:42:00 52 /min [facility] Body temperature 2020-01-18 13:42:00 36.56 Ginny [facility] Respiratory rate 2020-01-18 13:42:00 18 /min [facility] Body height 2020-01-18 13:42:00 180.3 cm [facility] Body weight 2020-01-18 13:42:00 113.309 kg [facility] BMI 2020-01-18 13:42:00 34.84 kg/m2 [facility] Oxygen saturation in Arterial blood by Pulse oximetry 2020-01-18 13:42:00 96 /min [facility] Systolic blood pressure 2019-12-30 17:24:00 154 mm[Hg] [facility] Diastolic blood pressure 2019-12-30 17:24:00 79 mm[Hg] [facility] Heart rate 2019-12-30 17:24:00 60 /min Unive [facility] Respiratory rate 2019-12-30 17:24:00 16 /min [facility] Oxygen saturation in Arterial blood by Pulse oximetry 2019-12-30 17:24:00 96 /min [facility] Body temperature 2019-12-30 16:55:00 36.39 Ginny [facility] Body height 2019-12-26 22:40:00 180.3 cm [facility] Body weight 2019-12-26 22:40:00 116.121 kg [facility] BMI 2019-12-26 22:40:00 35.72 kg/m2 [facility] Systolic blood pressure 2019-12-19 14:13:00 135 mm[Hg] [facility] Diastolic blood pressure 2019-12-19 14:13:00 72 mm[Hg] [facility] Heart rate 2019-12-19 14:11:00 56 /min [facility] 2019-12-19 14:11:00 19 /min [facility] Body height 2019-12-19 14:11:[address] [facility] Body weight 2019-12-19 14:11:00 117.935 kg [facility] BMI 2019-12-19 14:11:00 36.26 kg/m2 [facility] Oxygen saturation in Arterial blood by Pulse oximetry 2019-12-19 14:11:00 96 /min [facility] Procedures Procedure Date / Time Performed Performing Clinician Source COMP. METABOLIC PANEL (44959) 2024-02-10 17:52:00 White, [facility] CBC WITH DIFF 2024-02-10 17:52:00 David White [facility] URINALYSIS 2024-02-09 21:03:00 Tara Ireland [facility] CT HEAD WO CONTRAST 2024-02-09 20:02:00 Tara Ireland [facility] URINALYSIS 2024-02-06 15:15:00 Destiny [facility] XR LUMBAR SPINE 3 VW 2024-02-06 15:00:46 Rolly Muller [facility] CT ABDOMEN PELVIS WO CONTRAST 2024-01-30 18:58:58 Zo Green [facility] CBC WITH DIFF 2024-01-30 16:35:00 Zo Green [facility] COMP. METABOLIC PANEL ([id number]) 2024-01-30 16:35:00 Zo Green [facility] CONSENT/REFUSAL FOR DIAGNOSIS AND TREATMENT 2024-01-15 03:41:26 Doctor Unassigned, Lavelle [facility] ASSIGNMENT OF BENEFITS 2024-01-15 03:35:20 Docto r Unassigned, Lavelle [facility] ASSIGNMENT OF BENEFITS 2021-05-20 22:59:18 Docto r Unassigned, Lavelle [facility] CONSENT/REFUSAL FOR DIAGNOSIS AND TREATMENT 2021-02-14 21:51:32 Doctor Unassigned, Lavelle [facility] ASSIGNMENT OF BENEFITS 2021-02-14 21:50:52 Docto r Unassigned, Lavelle [facility] XR TIBIA FIBULA 2 VW RIGHT 2020-03-12 13:27:36 Chelle Fernandez [facility] XR LUMBAR SPINE 3 VW 2020-02-16 18:44:17 Basim Hayes [facility] ASSIGNMENT OF BENEFITS 2020-02-16 17:58:39 Docto r Unassigned, Lavelle [facility] COLONOSCOPY (ENDO) 2019-12-30 15:52:18 Joel Hyaes [facility] POCT GLUCOSE(AGE >30DAYS) 2019-12-30 13:50:00 Yesenia Pope [facility] DAY SURGERY - ADC 2019-12-30 06:01:00 Doctor Ileana ssigned, Lavelle [facility] Encounters Start Date/Time End Date/Time Encounter Type Admission Type [facility]ending [facility] Care Department Encounter ID Source 2024-02-10 11:58:00 2024-02-10 15:10:00 Emergency DAVID OROZCO [facility] ERT [id number] [facility] 2024-02-10 11:58:00 2024-02-10 15:10:00 Emergency David White [facility] 1.2.840.114 350.1.13.10 4.2.7.2.686 [id number] [facility] 2024-02-09 14:01:00 2024-02-09 21:19:00 Emergency X TARA IRELAND [facility] ERT [id number] [facility] 2024-02-09 14:01:00 2024-02-09 21:19:00 Emergency Tara Ireland [facility] 1.2.840.114 350.1.13.10 4.2.7.2.686 [id number] [facility] 2024-02-06 09:21:00 2024-02-06 11:51:00 Emergency X YOHANADESTINY Hoyos [facility] ERT [id number] [facility] 2024-02-06 09:21:00 2024-02-06 11:51:00 Emergency Yohana Destiny [facility] 1.2.840.114 350.1.13.10 4.2.7.2.686 [id number] [facility] 2024-01-30 10:06:00 2024-01-30 15:02:00 Emergency X ZO GREEN [facility] ERT [id number] [facility] 2024-01-30 10:06:00 2024-01-30 15:02:00 Emergency Zo Green [facility] 1.2.840.114 350.1.13.10 4.2.7.2.686 [id number] [facility] 2024-01-14 21:21:00 2024-01-14 21:48:00 Emergency X RAMONA, SALMIN RAMONA, SALMIN [facility] ERT [id number] [facility] 2024-01-14 21:21:00 2024-01-14 21:48:00 Emergency Avoca, Salmin [facility] 1.2.840.114 350.1.13.10 4.2.7.2.686 [id number] [facility] 2024-01-05 06:39:00 2024-01-05 07:57:00 Emergency X JACKIE DIAZ [facility] ERT [id number] [facility] 2024-01-05 06:39:00 2024-01-05 07:57:00 Emergency Jackie Diaz J [facility] 1.2.840.114 350.1.13.10 4.2.7.2.686 [id number] [facility] 2022-12-29 13:30:00 2022-12-29 14:30:00 MAC Stein 2.16.840. [id number] 2.16.840.1. [id number] [facility] 2022-10-17 00:00:00 2022-10-17 00:00:00 Outpatient DMG [facility] [id number] [facility] 2022-10-17 00:00:00 2022-10-17 00:00:00 Outpatient DMG [facility] [id number] [facility] 2022-09-07 00:00:00 2022-09-07 00:00:00 Outpatient DMG [facility] [id number] [facility] 2022-08-21 00:00:00 2022-08-21 00:00:00 Refill Manoj Tl [facility] 1.2.840.114 350.1.13.10 4.2.7.2.686 [id number] [facility] 2022-02-17 00:00:00 2022-02-17 00:00:00 Refill Tl Hayes [facility] 1.2.840.114 350.1.13.10 4.2.7.2.686 [id number] [facility] 2021-11-06 10:40:00 2021-11-06 10:40:00 Outpatient R TRAMAINEAMARAVALERIEHANNAHTL [facility] [id number] [facility] 2021-10-28 00:00:00 2021-10-28 00:00:00 Refill Manoj [facility] 1.2840.114 350.1.13.10 4.2.7.2.686 [id number] [id number] [facility] 2021-10-03 00:00:00 2021-10-03 00:00:00 Refill Manoj [facility] 1.2.840.114 350.1.13.10 4.2.7.2.686 [id number] [id number] [facility] 2021-09-09 00:00:00 2021-09-09 00:00:00 Telephone Georgina Garcia [facility] 1.2.840.114 350.1.13.10 4.2.7.2.686 [id number] [id number] [facility] 2021-07-18 00:00:00 2021-07-18 00:00:00 Patient Secure Msg Doctor Unassigned, Lavelle [facility] 1.2.840.114 350.1.13.10 4.2.7.2.686 [id number] [facility] 2021-07-12 00:00:00 2021-07-12 00:00:00 Telephone Tl Hayes [facility] 1.2.840.114 350.1.13.10 4.2.7.2.686 [id number] [id number] [facility] 2021-07-10 15:55:33 2021-07-10 15:55:44 Office Visit TramainedawoodTl [facility] 1.2.840.114 350.1.13.10 4.2.7.2.686 [id number] [facility] 2021-07-10 09:55:19 2021-07-10 11:00:50 Office Visit JenTl uherta [facility] 1.2.840.114 350.1.13.10 4.2.7.2.686 [id number] [facility] 2021-07-10 10:00:00 2021-07-10 10:00:00 Outpatient R TL HAYES [facility] [id number] [facility] 2021-07-09 00:00:00 2021-07-09 00:00:00 Telephone TramaineamaraTl huerta [facility] 1.2.840.114 350.1.13.10 4.2.7.2.686 [id number] [facility] 2021-06-19 00:00:00 2021-06-19 00:00:00 Refill Rosa Elenahannah Tl [facility] 1.2.840.114 350.1.13.10 4.2.7.2.686 [id number] 044 [id number] [facility] 2021-05-20 17:59:38 2021-05-20 18:39:03 Urgent Care Provider, [facility] Office Building One 1.2.840.114 350.1.13.10 4.2.7.2.686 [id number] [facility] 2021-05-20 18:20:00 2021-05-20 18:20:00 Outpatient R [facility] [id number] [facility] 2021-05-20 00:00:00 2021-05-20 00:00:00 Orders Only Doctor Unassigned, Lavelle [facility] 1.2.840.114 350.1.13.10 4.2.7.2.686 [id number] [facility] 2021-05-16 00:00:00 2021-05-16 00:00:[address] [facility] Building 1.2.840.114 350.1.13.10 4.2.7.2.686 [id number] [facility] 2021-02-14 16:53:57 2021-02-14 17:08:57 Fashion Editor Visit Pokamaljit, 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 Tl Hayes [facility] 1.2.840.114 350.1.13.10 4.2.7.2.686 [id number] [facility] 2021-02-14 15:55:11 2021-02-14 16:27:03 Office Visit Tl Hayes [facility] 1.2.840.114 350.1.13.10 4.2.7.2.686 [id number] [facility] 2021-02-14 16:00:00 2021-02-14 16:00:00 Outpatient R TL HAYES [facility] [id number] [facility] 2021-02-14 00:00:00 2021-02-14 00:00:00 Orders Only Doctor Unassigned, Lavelle [facility] 1.2.840.114 350.1.13.10 4.2.7.2.686 [id number] [facility] 2021-02-08 00:00:00 2021-02-08 00:00:00 Refill Tr[facility]aineTl [facility] 1.2.840.114 350.1.13.10 4.2.7.2.686 [id number] [id number] [facility] 2021-01-28 00:00:00 2021-01-28 00:00:[address] [facility] 1.2.840.114 350.1.13.10 4.2.7.2.686 [id number] [facility] 2021-01-22 00:00:00 2021-01-22 00:00:[address] [facility] 1.2.840.114 350.1.13.10 4.2.7.2.686 [id number] [facility] 2021-01-21 00:00:00 2021-01-21 00:00:00 Refill Tl Hayes [facility] 1.2.840.114 350.1.13.10 4.2.7.2.686 [id number] [id number] [facility] 2020-10-31 13:30:00 2020-10-31 13:30:00 Outpatient R NIMISHA YING [facility] [id number] [facility] 2020-10-09 14:40:00 2020-10-09 14:40:00 Outpatient R TL HAYES [facility] [id number] [facility] 2020-09-24 09:20:00 2020-09-24 09:20:00 Outpatient R KUNAL JOEL [facility] [id number] [facility] 2020-07-09 09:20:00 2020-07-09 09:20:00 Outpatient R TL HAYES [facility] [id number] [facility] 2020-07-09 08:17:40 2020-07-09 08:37:40 Telemedici ne Visit Tl Hayes [facility] 1..840.114 350.1.13.10 4.2.7.2.686 [id number] [facility] 2020-06-28 00:00:00 2020-06-28 00:00:[address] [facility] 1..840.114 350.1.13.10 4.2.7.2.686 [id number] [facility] 2020-04-19 08:00:00 2020-04-19 08:00:00 Outpatient R TL HAYES [facility] [id number] [facility] 2020-04-12 09:46:54 2020-04-12 10:06:54 Urgent Care Provider, [facility] Yossi Prasad [facility] Office Building One 1..840.114 350.1.13.10 4.2.7.2.686 [id number] [facility] 2020-04-12 10:00:00 2020-04-12 10:00:00 Outpatient R YOSSI PRASAD [facility] [id number] [facility] 2020-04-09 00:00:00 2020-04-09 00:00:[address] [facility] 1..840.114 350.1.13.10 4.2.7.2.686 [id number] [facility] 2020-04-05 00:00:00 2020-04-05 00:00:00 Telephone Tl Hayes [facility] 1.2.840.114 350.1.13.10 4.2.7.2.686 [id number] [facility] 2020-03-16 10:02:04 2020-03-16 10:02:51 Residential Assistant Visit Debra Friedman [facility] 1.2840.114 350.1.13.10 4.2.7.2.686 [id number] [facility] 2020-03-15 15:00:00 2020-03-15 15:00:00 Outpatient R IDALIA COUNTS INCLUDE 234 [facility]S AT [facility] [id number] [facility] 2020-03-14 16:30:00 2020-03-14 16:30:00 Outpatient R ANALYDARRELL [facility] [id number] [facility] 2020-03-14 15:42:00 2020-03-14 15:57:00 Telemedici ne Visit AnalyDarrell [facility] 1.2.840.114 350.1.13.10 4.2.7.2.686 [id number] [facility] 2020-03-14 00:00:00 2020-03-14 00:00:00 Telephone Tl Hayes [facility] 1.2.840.114 350.1.13.10 4.2.7.2.686 [id number] [facility] 2020-03-12 07:53:07 2020-03-12 08:57:00 Emergency Chelle Fernandez [facility] 1.2.840.114 350.1.13.10 4.2.7.2.686 [id number] [facility] 2020-03-12 07:53:07 2020-03-12 08:57:00 Emergency X CHELLE FERNANDEZ [facility] ERT [id number] [facility] 2020-03-08 15:00:00 2020-03-08 15:00:00 Outpatient R DEBRA FRIEDMAN [facility] [id number] [facility] 2020-02-28 13:00:00 2020-02-28 13:00:00 Outpatient R TL HAYES [facility] [id number] [facility] 2020-02-28 07:16:07 2020-02-28 07:56:07 Telemedici ne Visit Manoj [facility] 1.2840.114 350.1.13.10 4.2.7.2.686 [id number] [facility] 2020-02-23 00:00:00 2020-02-23 00:00:00 Telephone [facility] 1.840.114 350.1.13.10 4.2.7.2.686 [id number] [facility] 2020-02-16 12:59:15 2020-02-16 23:59:00 Outpatient R MANOJ [facility] [id number] [facility] 2020-02-16 12:59:00 2020-02-16 23:59:00 [facility].114 350.1.13.10 4.2.7.2.686 [id number] [facility] 2020-02-16 00:00:00 2020-02-16 00:00:00 Orders Only Doctor Unassigned, Lavelle [facility] 1.2840.114 350.1.13.10 4.2.7.2.686 [id number] [facility] 2020-02-16 00:00:00 2020-02-16 00:00:00 Telephone [facility] Building 1.2840.114 350.1.13.10 4.2.7.2.686 [id number] [facility] 2020-01-18 07:23:58 2020-01-18 08:32:20 Office Visit Manoj Tl [facility]io [facility]al Building 1.2.114 350.1.13.10 4.2.7.2.686 [id number] [facility] 2020-01-18 07:20:00 2020-01-18 07:20:00 Outpatient R MANOJLT [facility] [id number] [facility] 2020-01-18 00:00:00 2020-01-18 00:00:00 Letter (Out) Doctor Unassigned, Lavelle [facility] 1..114 350.1.13.10 4.2.7.2.686 [id number] [facility] 2020-01-07 00:00:00 2020-01-07 00:00:00 Natividad Corrigan [facility] Building 1..114 350.1.13.10 4.2.7.2.686 [id number] [facility] 2020-01-04 00:00:00 2020-01-04 00:00:00 Telephone Tl [facility] 1.114 350.1.13.10 4.2.7.2.686 [id number] [id number] [facility] 2019-12-30 07:35:00 2019-12-30 11:49:00 Hospital Encounter Glo Finn [facility] 1.114 350.1.13.10 4.2.7.2.686 [id number] [facility] 2019-12-30 07:35:00 2019-12-30 11:49:00 Outpatient R GLO FINN [facility] CASE[facility] [id number] [facility] 2019-12-30 00:00:00 2019-12-30 00:00:00 Orders Only Doctor Unassigned, Lavelle [facility] 1..840.114 350.1.13.10 4.2.7.2.686 [id number] [facility] 2019-12-19 08:02:28 2019-12-19 09:08:19 Office Visit Kendall Campa [facility] 1..840.114 350.1.13.10 4.2.7.2.686 [id number] [facility] 2019-12-01 15:15:00 2019-12-01 15:15:00 Outpatient R JOCELYN GREER [facility] [id number] [facility] 2019-10-26 14:45:00 2019-10-26 15:36:20 Outpatient R NIMISHA YING [facility] [id number] [facility] 2019-06-10 10:30:00 2019-06-10 12:20:48 Outpatient R TL HAYES [facility] [id number] [facility] 2019-05-30 14:20:00 2019-05-30 17:18:22 Outpatient R DARRELL MAXWELL III [facility] [id number] [facility] 2019-05-24 08:45:00 2019-05-24 08:45:00 Outpatient MARIAMA REAL [facility] [id number] [facility] 2019-04-26 08:30:00 2019-04-26 09:03:15 Outpatient MARIAMA REAL [facility] [id number] [facility] Results Test Description Test Time Test Comments Results Result Co mments Source [facility] with [id number] 18:13:28* Test Item Value Reference Range Interpretation [...] 33.9 g/dL 31.2-35.0 RDW-SD (test code = 98380-9) 42.0 fL 38.5-51.6 RDW-CV (test code = 788-0) 12.9 % 12.1-15.4 PLT (test code = 777-3) 287 150-328 MPV (test code = 60261-6) 9.4 fL 9.8-13.0 L NRBC/100 WBC (test code = 7624659721) 0.0 0.0-10.0 NRBC x10^3 (test code = 2042805576) See_Comment [Automated messa ge] The system which generated this result transmitted reference range: 10*3/?L. The reference range was not used to interpret this result as normal/abnormal. GRAN MAT (NEUT) % (test code = 770-8) 77.5 % IMM GRAN % (test code = 1476145283) 1.10 % LYMPH % (test code = 736-9) 11.1 % MONO % (test code = 5905-5) 9.1 % EOS % (test code = 713-8) 0.9 % BASO % (test code = 706-2) 0.3 % GRAN MAT x10^3(ANC) (test code = 9333747035) 8.71 10*3/uL 1.99-6.95 H IMM GRAN x10^3 (test code = 5761680593) 0.12 10*3/uL 0.00-0.06 H LYMPH x10^3 (test code = 731-0) 1.25 10*3/uL 1.09-3.23 MONO x10^3 (test code = 742-7) 1.02 10*3/uL 0.36-1.02 EOS x10^3 (test code = 711-2) 0.10 10*3/uL 0.06-0.53 BASO x10^3 (test code = 704-7) 0.03 10*3/uL 0.01-0.09 Lab Interpretation (test code = 01047-6) [facility] [id number] 20:09:29FULL RESULT: Examination: CT HEAD WO CONTRAST on 02/09/2024 2:43 PM Clinical Indication: Dizziness Comparison: None Technique: Noncontrast imaging was obtained from base to vertex. Findings: The sulciand ventricles were unremarkable. There was no evidencefor mass lesion, hemorrhage, or underlying ed michelle. There is mild whitematter hypodensity compatible with microvascular ischemic change. There were no bony, sinonasal or skull base lesions.[facility] 3 [id number] 15:24:42EXAM: XR LUMBAR SPINE 3 VW HISTORY: [...] innormal alignment. The intervertebral disc spaces are preserved.[facility] ABDOMEN PELVIS WO [id number] 19:42:33HISTORY: ?flank pain with right side swelling [...] Mostcompatible with omental infarct. No acute bony abnormality.[facility] (16160)2024-01-30 17:18:01* Test Item Value Reference Range Interpretation Comme nts NA (test code = 4718196184) 139 mmol/L 135-145 K (test code = 9689418008) 3.6 mmol/L 3.5-5.0 CL (test code = 7221147895) 107 mmol/L 98-108 CO2 TOTAL (test code = 1042691174) 27 mmol/L 23-31 AGAP (test code = 0459854977) 5 2-16 BUN (test code = 5227489625) 27 mg/dL 7-23 H GLUCOSE (test code = 1573115279) 118 mg/dL 70-110 H CREATININE (test code = 2160-0) 0.99 mg/dL 0.60-1.25 TOTAL BILI (test code = 6377659264) 0.4 mg/dL 0.1-1.1 CALCIUM (test code = 3784633265) 8.6 mg/dL 8.6-10.6 T PROTEIN (test code = 0054907066) 6.8 g/dL 6.3-8.2 ALBUMIN (test code = 0727321130) 3.6 g/dL 3.5-5.0 ALK PHOS (test code = 0376613191) 105 U/L 34-122 ALTv (test code = 1742-6) 23 U/L 5-50 AST(SGOT) (test code = 3901060362) 27 U/L 13-40 eGFR (test code = 76965-1) 81.9 mL/min/1.73m2 CKD-EPI eGFR (2020). Assuming creatinine has been stable day-to-day for at least three months, the eGFR indicates Category G2 (60 - 89 mL/min/1.73 m2) Lab Interpretation (test code = 38347-2) Abnormal [facility] with Ycov3553-22-54 16:52:14* Test Item Value Reference Range Interpretation [...] 33.3 g/dL 31.2-35.0 RDW-SD (test code = 68846-6) 42.9 fL 38.5-51.6 RDW-CV (test code = 788-0) 13.2 % 12.1-15.4 PLT (test code = 777-3) 290 150-328 MPV (test code = 26789-2) 9.9 fL 9.8-13.0 NRBC/100 WBC (test code = 9155019831) 0.0 0.0-10.0 NRBC x10^3 (test code = 5237108953) See_Comment [Automated messa ge] The system which generated this result transmitted reference range: 10*3/?L. The reference range was not used to interpret this result as normal/abnormal. GRAN MAT (NEUT) % (test code = 770-8) 74.8 % IMM GRAN % (test code = 6841496448) 0.90 % LYMPH % (test code = 736-9) 14.7 % MONO % (test code = 5905-5) 7.8 % EOS % (test code = 713-8) 1.2 % BASO % (test code = 706-2) 0.6 % GRAN MAT x10^3(ANC) (test code = 7401146792) 7.72 10*3/uL 1.99-6.95 H IMM GRAN x10^3 (test code = 9338174173) 0.09 10*3/uL 0.00-0.06 H LYMPH x10^3 (test code = 731-0) 1.52 10*3/uL 1.09-3.23 MONO x10^3 (test code = 742-7) 0.81 10*3/uL 0.36-1.02 EOS x10^3 (test code = 711-2) 0.12 10*3/uL 0.06-0.53 BASO x10^3 (test code = 704-7) 0.06 10*3/uL 0.01-0.09 Lab Interpretation (test code = 48621-8) [facility]normal [facility] 3 FO4060-11-76 19:03:44 HISTORY: ?Low back pain. FINDINGS: AP, [...] degenerative disc disease at L2-L3, L3-L4, L4-L5. [facility], Radiant Results Inft User - 02/16/2020 2:04 [...] ofmild degenerative disc disease at L2-L3, L3-L4, L4-L5.[facility] Jrcuujk3402-77-95 13:50:00* Test Item Value Reference Range Interpretation Comme nts POCT Glu (age>30days) (test code = 3342) 181 mg/dL 70-110 A Lab Interpretation (test cod e = 16924-2) Abnormal [facility] Notes Date/Time Note Provider Source 2024-02-10 14:56:30 uUgxXx/7Rd9sV/nb5viCnI2AJYrtVaXDIgm6gd3N xb9zi HvxF5bdbn+cEb19q27l4422-52-00X31:56:30Formatt ing of this note might be different from the original.PT D/C home. GCS15, VS stable. Given D/C paperwork. Pt ambulatory at time of discharge. Pt educated on med usage, follow up care, s/s worsening condition, need for hydration. Pt verbalized understanding.[facility] services arrived to transport patient. Pt given a care package upon discharge [address]453-5Gsmydsgr[address] ZdcsTL2133-97-92U52:58:55[facility] department NoteTXT1.2.840.499865.1.13.104.2.7.2.988262|2 341290039ZCPxdyhbsbp for patient dfyi36651-7LmrxAXNVUTLQFIPQbqhjcrqb C-CDA narrative [id number] KBWNSCFXEOTPM4274-37-50V25:58:551.2.840.89372 0.1.72.3.15|1.2.840.655393.1.13.104.2.7.2.727 [id number] [facility] 2024-02-10 14:54:31 bvvwMSCF3c5Kcattx4YGuTfWET8viLPpcPdjA/0E V9zyL LH35yNzirUpDZsBPr/g4246-74-57F23:54:31Formatt ing of this note might be different from the original.Pt finishing food tray [address]124-6Xmyjxnpqk[address] EvrxRN5189-11-09P54:54:39[facility] department NoteTXT1.2.840.081259.1.13.104.2.7.2.049845|2 143447798ZJXkwahrbjf for patient uefo70414-8IcntRFJYLTZTPMEIrifmpqpy C-CDA narrative [id number] ZXSEBNEFVSQJP6966-50-54H32:54:391.2.840.11254 0.1.72.3.15|1.2.840.988197.1.13.104.2.7.2.727 879_[id number] [facility] 2024-02-10 11:55:54 r1kbWhQ3EGUDI+EB4HZuuKM+NT8+VJq0ljljd7r+ HHrh9 SzFimZc27cCliRpDlCh0700-40-69L83:55:54Formatt ing of this note might be different from the original.Pt states he is dizzy when he walks and has pain.Pt reports having these symptoms for months. 85985-9Wkijclziy department Triage qrifSN5934-53-55P38:58:28[facility] department Triage noteTXT1.2.840.890086.1.13.104.2.7.2.362370|2 367077380JWCbihshrii for patient cape16313-5Ultsvwlxl department NoteLNNARRATIVEFormatted C-CDA narrative ydsm216136766Jhzu E Linkes RNUT[address] CzlxRjecdsahdOdebldfleVLOF1635861610VEMVWKXYF RHNSEYHPFVOFC4041-52-40T66:58:281.2.840.43789 0.1.72.3.15|1.2.840.030088.1.13.104.2.7.2.727 879_[id number] Merry Wise RN [facility] 2024-02-09 21:15:50 udX+zcj7x4v/CtmGhCm2ayl0nTMv1W6xJJ36R1hj FeHXP 2w+YapxmhPXtEIOhaKJ1164-06-90M10:15:50Formatt ing of this note might be different [...] w/d, pt leaving in no apparent distress, 04791-1Ufolyogjv department SeayQX7148-57-06G11:17:06[facility] department NoteTXT1.2.840.178265.1.13.104.2.7.2.068485|2 658078338ZPDbyhzzpav for patient rwrg41829-0IyjtJRPFNGCICLDDkgauanrf C-CDA narrative kbwe982389112Nrezzo R Shehadeh RN[address]GyzdMhijlvqmjXoigffvulNIIB6585398179UWWYHCFGB ZICAUXAACQWAE6993-34-86P14:17:061.2.840.10890 0.1.72.3.15|1.2.840.481987.1.13.104.2.7.2.727 879_[id number] Chelsea Jackson RN [facility] 2024-02-09 21:08:09 3bDswBQKMynhVqWvInmeYfWyvH2jnOVSa3qxlUJ+ 9HEVf +hOTtNnPEVxGrv5DEwU1307-40-41A77:08:09Formatt ing of this note might be different from the original.Pt has been discharged for several hours. He is being loaded into a WC at this time to wait in lobby. He asked nursing to call red Qiu. Jose Raulanju states that her and her friend are trying to find him a group home. At this pt being placed in the lobby. 65766-6Tinxziqxn department DgowXD2315-03-28V91:10:35[facility] NoteTXT1.2.840.569208.1.13.104.2.7.2.439984|2 613797693YPRnokuqryz for patient pons52783-4IhgcZAKGEZZZDOMEfyczifmk C-CDA narrative text[id number] CISNEROSMPKVIPYZGYVAO5320-19-74L43:10:351.2.840.41720 0.1.72.3.15|1.2.840.857505.1.13.104.2.7.2.727 879_[id number] [facility] 2024-02-09 14:20:00 fzj+YXh9RRE1KFHfDUnW7UJd3q6acpfO+OGkjZPo e2xcv /MS+Zyx6f2/M74lHFPl6324-35-20P56:20:00Formatt ing of this note might be different from the original.Patient c/o lower back pain. Denies injury 13507-1Vtahgejsl department NnswCD8799-56-49N80:35:03[facility] department NoteTXT1.2.840.309318.1.13.104.2.7.2.666512|2 501179101CUKupdxftsc for patient iipa23282-5VemcSUTNWSNFOXMWujnzqjgq C-CDA narrative text[id number] KIGSGRMMQUKJX4985-71-55H77:35:031.2.840.56272 0.1.72.3.15|1.2.840.138384.1.13.104.2.7.2.727 879_[id number] [facility] 2024-02-09 14:01:15 QpwSAHPYdbdhqsbtR74dVbcjcaHvsplDI2xsfXj2 XHjw6 7fmSUR7dgrwlDUjEO6M7686-99-31S06:01:15Formatt ing of this note might be different from the original.Patient transported by [facility], patient c/o back pain and needed to be cleaned up. Patient is homeless and incontinent of urine. 51079-6Rarhsadyk department Triage pacrHT3495-92-34I24:02:01[facility] department Triage noteTXT1.2.840.727762.1.13.104.2.7.2.192287|2 [id number] for patient ymqs78533-6Wfbbzxtym department NoteLNNARRATIVEFormatted C-CDA narrative xqsy907454334Bopqw S Cryer RN[address] StreetGpqmPovenwigsMgmmhujwqFAIR0827633175FITKERVOK ZATQIVTUCUFBL9253-71-34L40:02:011.2.840.26553 0.1.72.3.15|1.2.840.136368.1.13.104.2.7.2.727 879_[id number] Quinn Moyer RN [facility] 2024-02-09 13:59:00 TfEG3W0YyLhVXcOzNkI5mIxPuUIYO16g+JDVExPZ 803in X5Cst2SayX3Ly3aY5mw8119-82-02S21:59:00Formatt ing of this note is different from the original.Images from the original note were not included.[facility] Emergency Department NotePatient Name: Raj Mackey of : 1955 69 year old maleTreatment Room: Room/bed info not foundMedical Record Number: [id number] Care Physician: Rakesh Oh Escorted by: Self [9]Mode of Arrival: EMS - [facility] ([facility]) [43]EMS Treatment Prior to ED 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: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 treatment: Saline lockTravel and Exposure Screening:SymptomsDoes patient [...] exam 12/01/2019Added automatically from request for surgery [id number] of both legs 02/28/2020Erectile dysfunction, unspecified erectile dysfunction type 02/28/2020Essential hypertension 02/28/2020HTN (hypertension)HyperlipidemiaObesity (BMI 30-39.9) 03/17/2019Psoriasiform dermatitis 1Stroke 2017Type 2 diabetes mellitus with vascular disease 10/12/2019Upper respiratory tract infection, unspecified type 10/12/2019Tetanus received in last 5 years: NoChildhood immunizations: Sx-ci-lpzbKvypixylj:No Known AllergiesPast Social History:Tobacco UseNever smoked or used smokeless tobacco.Alcohol UseNo.Drug UseNo.Past Surgical History:Past Surgical History:Procedure Laterality DateCOLONOSCOPY N/A 12/30/2019Surgeon: Glo Finn MD; [facility] EdCORNEAL TRANSPLANT,LAMELLAR BilateralKNEE ZNPYOEXCNRP2325NLGYBWQFMPRGKRMQ KERATOPLASTYPHACOEMULSIFICATION OF CATARACT WITH INTRAOCULAR LENS IMPLANT Right 03/17/2019Surgeon: Virgil Martinez MD; Location: [facility] EdReview of Systems:Review of SystemsConstitutional: Positive for activity [...] 15 mgFirst Provider Eval:ED EventsDate/Time Event User Xwltjryc18/19/24 1400 Medical Screening Begins TARA IRELAND MD [...] Use as directedLANCETS (TRUEPLUS LANCETS) 33 GAUGE MISC Monitor Blood Glucose dailyLISINOPRIL-HYDROCHLOROTHIAZIDE 10-12.5 MG PER TABLET Take 1 tablet by mouth once dailyMETFORMIN 1,000 MG TABLET Take 1 tablet by mouth 2 (two) times daily with meals.MISCELLANEOUS MEDICAL SUPPLY [facility] E11.8: dispense Insulin Syringe 31 gauge brand [...] medicationsNo medications on fileFollow-up:Electronically signed by:Tara Ireland MD02/09/241709 82510-3Tzxygpxdf Emergency department RotiVW8427-15-83I95:10:50Physician Emergency department NoteTXT1.2.840.021385.1.13.104.2.7.2.369549|2 [id number] for patient mwdy06622-1Axsjwejdx department NoteLNNARRATIVEFormatted C-CDA narrative textUT[address] StreetGwzdNesklzluqUfqzepyylRHBU9067613049BYMCZTCXO PYBWZFAMEMLXD7377-17-08U80:10:501.2.840.90879 0.1.72.3.15|1.2.840.910630.1.13.104.2.7.2.727 879_[id number] [facility] 2024-02-06 11:48:50 GJpt81pCTtvMwVFMQNfL7oT/0TBawW2oDROS8bgR iqm+A Ria5FAagMg6Vy1vHFIn7627-80-12J86:48:50Formatt ing of this note might be different from the original.Written/verbal d/c instructions, out of er via wheelchair, pt requests [facility] PD to call [facility], states [employer] told him they would give him a ride back to [facility] liquor to get his cart that he uses to walk, states [employer] hid his cart behind the building while [facility] transported to hospital, [facility] [place] [address]-4Veapmwqtg department YjhjQV9683-86-52G92:50:36[facility] department NoteTXT1.2.840.469212.1.13.104.2.7.2.384449|2 [id number] for patient zawu44402-2DrxdXVOTARCTLNWWhprlkref C-CDA narrative fhmv479153986Uaurws M. Barton RNUT[address] HnedXkmgvqfvrLclzxwqcrLOOB8821988066LLONFJDPC AOKHXYHTKQCIQ7169-09-35T65:50:361.2.840.97786 0.1.72.3.15|1.2.840.460364.1.13.104.2.7.2.727 879_[id number] Zarina Martin RN [facility] 2024-02-06 09:24:07 Ness/Jorge/fwI3yg54YW9sJ40DHyjO6ysOePerjULrqk YsdJO 8S88CAlXbEtqVzxiEkx3190-62-33F52:24:07Formatt ing of this note might be different from the original.[facility] states: "Pt is coming in for chronic back pain. He's had it for over a month now. He's homeless. Has a history of stroke. He does have a cut on his finger that he might need an antibiotic for. His bgl was 202. The police said to call him when he gets discharged and he would take him back to outside of [facility] where he is living. The advertising copywriter also gave him 20 dollars so he should have some money for an antibiotic" 38441-5Cjgdeqhqt department Triage rffxNJ7670-33-22D33:26:33[facility] department Triage noteTXT1.2.840.802135.1.13.104.2.7.2.901989|2 109877059MWVcwdenucr for patient qhiy53965-9Lpenwncak department NoteLNNARRATIVEFormatted C-CDA narrative appx057618618Deqwx M El RNUT[address] EyizCckidttxyJwoqomlueQBKK4739051794QZGBUDJUI MJAKZYIXFFZZO2057-67-69L91:26:331.2.840.63234 0.1.72.3.15|1.2.840.326792.1.13.104.2.7.2.727 879_[id number] Vandana Carrero El RN [facility] 2024-02-06 09:16:00 GTSrdqX6hX0bJl7ioSd1QJwvjWgLKd77rFK3vfjM Cipmq WLstDqvl9jvZCcvn6mZ0024-10-41Q08:16:00Formatt ing of this note is different from the original.Images from the original note were not included.[facility] Emergency Department NotePatient Name: Raj Mackey of : 1955 69 year old maleTreatment Room: [place] [address]Medical Record Number: [id number] Care Physician: Rakesh Oh Escorted by: Self [9]Mode of Arrival: EMS - [facility] ([facility]) [43]EMS Treatment Prior to ED Arrival:Travel and [...] He is currently homeless [facility]. He was brought in by the PDt and PD states that they "will pick him up and take him back to [facility] at discharge"History provided by: Patient and medical recordsLanguage medical interpreter used: NoPast Medical History/Immunizations:Past Medical History:Diagnosis DateAcute midline low back pain without sciatica 01/18/2020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) 10/12/2019CataractOS ONLYCellulitis of foot, left 04/12/2020DiabetesDiabetic eye exam 12/01/2019Added automatically from request for surgery [id number] of both legs 02/28/2020Erectile dysfunction, unspecified erectile dysfunction type 02/28/2020Essential hypertension 02/28/2020HTN (hypertension)HyperlipidemiaObesity (BMI 30-39.9) 03/17/2019Psoriasiform dermatitis 1Stroke 2017Type 2 diabetes mellitus with vascular disease 10/12/2019Upper respiratory tract infection, unspecified type 10/12/2019Allergies:No Known AllergiesPast Social History:Tobacco UseNever smoked or used smokeless tobacco.Alcohol UseNo.Drug UseNo.Past Surgical History:Past Surgical History:Procedure Laterality DateCOLONOSCOPY N/A 12/30/2019Surgeon: Glo Finn MD; Location: [facility] EdCORNEAL TRANSPLANT,LAMELLAR BilateralKNEE UOFCWSMUGCI4959KVIZGQUINAOEVGXC KERATOPLASTYPHACOEMULSIFICATION OF CATARACT WITH INTRAOCULAR LENS IMPLANT Right 03/17/2019Surgeon: Virgil Martinez MD; Location: [facility] OR LocationReview of Systems:Review of SystemsMusculoskeletal: Positive for back [...] Hearing normal.Left Ear: Hearing normal.Nose: Nose normal.Mouth/Throat:Lips: Selman.Mouth: Mucous membranes are dry.Pharynx: Oropharynx is clear. [...] mg tabletFirst Provider Eval:ED EventsDate/Time Event User Ayihedkf78/16/24 0926 Medical Screening Begins DESTINY MULLER --02/06/24 0926 First Provider Evaluation DESTINY MULLER --ED COURSEED [...] Use as directedLANCETS (TRUEPLUS LANCETS) 33 GAUGE [facility] Monitor Blood Glucose dailyLISINOPRIL-HYDROCHLOROTHIAZIDE 10-12.5 MG PER TABLET Take 1 tablet by mouth once dailyMETFORMIN 1,000 MG TABLET Take 1 tablet by mouth 2 (two) times daily with meals.MISCELLANEOUS MEDICAL SUPPLY [facility] E11.8: dispense Insulin Syringe 31 gauge brand [...] these medicationsNo medications on fileFollow-up:Electronically signed by:Destiny Muller NP02/06/24 1137 ssociated attestation - Kumar Conway MD - 02/06/2024 11:41 AM CDT I have reviewed the PA/BROADCAST PRODUCER's note and plan of care. I was available for consultation as needed at all times during the patient's visit in the emergency department. I agree with the clinical impression, plan and disposition.82788-9Iwlahfopv Emergency department LeskKH5227826Zumpq, Yasin1.2.840.612219.1.13.104.2.7.2.160610Mjyg sJveoiDR3746-52-67F60:41:33Physician Emergency department NoteTXT1.2.840.354861.1.13.104.2.7.2.701222|2 [id number] for patient porp39983-0Dlmremilp department NoteLNNARRATIVEFormatted C-CDA narrative text[address]TXTX7755577555USUSGALMANUELA CISNEROSPHESQJTIXUFNJ4484-83-50Q34:41:331.2.840.97739 0.1.72.3.15|1.2.840.697896.1.13.104.2.7.2.727 [id number] [facility] 2024-01-30 14:56:27 kwZuOQlTtnWKz4j+RZQzrKD5nK78e0PJOIF7t8C7 9Njof MC16xTseOtRAi0pZiti7534-19-52S11:56:27Formatt ing of this note might be different from the original.Pt given discharge instructions on flank pain. Pt given prescription X 2 for bentyl and tinazadine. Pt advised to follow up with pcp. 20892-7Rouyhhsyh department VlihLG6127-73-05R92:01:55[facility] NoteTXT1.2.840.001164.1.13.104.2.7.2.115965|2 [id number] for patient owkt02207-9OvwdSBASAXPDZXMCvgxigfry C-CDA narrative lbpd855326722Ndcgq M Cruz RNUT[id number] TNDJFQFYEEDAF3560-19-23A23:01:551.2.840.96046 0.1.72.3.15|1.2.840.075402.1.13.104.2.7.2.727 879_[id number] Vandana Carrero El HENSON [facility] 2024-01-30 10:04:33 ycIUqnTJ4Ag2BoTj2mgluZ+8CwXxBdy5a8SYK97U 1Me6h F0TRiO82/77yU4xET9B5507-70-36R57:04:33Formatt ing of this note might be different [...] is homeless and called 911 at the [employer]. 04660-7Pqyuemqpe department Triage rbosJX7600-97-98Y40:05:50[facility] Triage noteTXT1.2.840.805761.1.13.104.2.7.2.126975|2 [id number] for patient ibzt21346-2Skywdvwwc department NoteLNNARRATIVEFormatted C-CDA narrative zzwz182606294Dopsjpj D Wierzbicki RN[address] MvgdYdafxnsluUluxbjxzkWKJP4732083457XIHJNJGDA KFQYIBTWOEXNT3089-80-49X40:05:501.2.840.05294 0.1.72.3.15|1.2.840.122075.1.13.104.2.7.2.727 [id number] Nimisha Barrios RN [facility] 2024-01-14 21:46:53 43eYWnYSdL++C9PxX5ekb7yQW2zGxr4X/IPMyg8X NQD0o sUfBwWk+xJbZZ7Ykv+i0496-62-84S91:46:53Formatt ing of this note might be different [...] unlabored, skin w/d, in no apparent distress, 08560-8Wzeeccxrl department XmocFL3443-92-32W58:48:20[facility] department NoteTXT1.2.840.122584.1.13.104.2.7.2.877297|2 680020247XMEhilpvtov for patient ldfb50964-6SqofYDEFFUQYJGDAgbkdxinn C-CDA narrative [id number]-Sdicv McInnis RN[address] StreetAvkuHtruzjvtxThuiuxozqTOMM3060732816EMZBYDPRX EMYAKRSDAJFCQ4069-05-70E67:48:201.2.840.41555 0.1.72.3.15|1.2.840.418256.1.13.104.2.7.2.727 [id number] Dennis Varghese RN [facility] 2024-01-14 21:14:37 bsqQOv8BLFgzugGvy+EG2AaE7QKRZjLBwN+2aEBS s71Wo 64LsT7vxaW73yuoB51W9046-58-39T42:14:37Formatt ing of this note might be different from the original.CC: Back here again for low back pain since beginning of the month. Pt states he may have fallen on the floor but doesn't have any memory of it. He thinks it may be because he doesn't get much sleep being homeless. Pt requesting "pain killer." Denies changes in urinationPMHx: CG0Rtupf, alert, oriented, resp reg unlabored, skin warm, color appropriate for race, moves all ext without difficultyBLG by EMS 374. [facility] Chelsea Jackson RN at 01/14/2024 9:19 PM UTP08351-5Aoveokicb department Triage vvtoHI1355-80-37J30:19:14[facility] department Triage noteTXT1.2.840.742856.1.13.104.2.7.2.722547|2 700571559BMQxgfaxymd for patient zwbp92120-0Rynnwhoit department NoteLNNARRATIVEFormatted C-CDA narrative jrhv500868282Bycywo R Shehadeh RN[address] MarsIrhkdrsikHoufoowtdQQQM1954105717ACNSPTQLI JFBFUXBBPBKZZ1167-53-63Q98:19:141.2.840.60503 0.1.72.3.15|1.2.840.823191.1.13.104.2.7.2.727 [id number] Chelsea Jackson RN [facility] 2024-01-05 06:35:49 qRaDrxXeLdxxF4wjSDdPlYCHENymkVRPFb+j6mv0 BgnVt x0fXr+fqI+79DbaAB4M2348-60-57B98:35:49Formatt ing of this note might be different from the original.CC: lower back pain x 1 week. "I think it was the mattress I was sleeping on." Pt denies urinary symptoms. Pt didn't attempt OTC PTAPMHx: noneAwake, alert, oriented, resp reg unlabored, skin warm, color appropriate for race, moves all ext without difficulty, amb with slumpped gait. 87886-8Ejvrzkuve department Triage dupeTJ3661-71-33S18:41:21[facility] Triage noteTXT1.2.840.463016.1.13.104.2.7.2.165384|2 889165270DFLrfwhxkrh for patient erny42325-2Ogqpxgthg department NoteLNNARRATIVEFormatted C-CDA narrative kyyy704127375Fkbhjorobert HUSSEIN[address] JhflKwfehbxteJuvzowghvTZGE9841046932JDYQJLIYN DOEQYXUVMIWVZ3179-37-66S02:41:211.2.840.31583 0.1.72.3.15|1.2.840.847665.1.13.104.2.7.2.727 [id number] Chelsea Jackson RN [facility] 2024-01-05 06:31:00 l5Sddcu1A4u7UzHTsC9vd0IhkYA9lzlsC9pmZp+7 dpfSA QVp2bBHgZSIwccsUDdw7435-73-94T29:31:00Formatt ing of this note is different from the original.[facility] Emergency Department NotePatient Name: Raj Mackey of : 1955 69 year old maleTreatment Room: [place] [address]Medical Record Number: [id number] [facility] Physician: Tl HayesPatient Escorted by: Self [9]Mode of Arrival: Personal means [1]EMS Treatment Prior to ED Arrival: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 He has not tried any ugfx-tiw-vjcwzkm medications as he does not like to [...] exam 12/01/2019Added automatically from request for surgery [id number] of both legs 02/28/2020Erectile dysfunction, unspecified erectile dysfunction type 02/28/2020Essential hypertension 02/28/2020HTN (hypertension)HyperlipidemiaObesity (BMI 30-39.9) 03/17/2019Psoriasiform dermatitis 1Stroke 2017Type 2 diabetes mellitus with vascular disease 10/12/2019Upper respiratory tract infection, unspecified type 10/12/2019Tetanus received in last 5 years: UnknownAllergies:No Known AllergiesPast Social History:Tobacco UseNever smoked or used smokeless tobacco.Alcohol UseNo.Drug UseNo.Past Surgical History:Past Surgical History:Procedure Laterality DateCOLONOSCOPY N/A 12/30/2019Surgeon: Glo Finn MD; Location[facility] EdCORNEAL TRANSPLANT,LAMELLAR BilateralKNEE [id number] KERATOPLASTYPHACOEMULSIFICATION OF CATARACT WITH INTRAOCULAR LENS IMPLANT Right 03/17/2019Surgeon: Virgil Martinez MD; Location: [facility] EdReview of Systems:Review of SystemsConstitutional: Negative for chills [...] 600 mgFirst Provider Eval:ED EventsDate/Time Event User Ofstaadk04/13/24 0712 Medical Screening Begins JACKIE DIAZ DO [...] Use as directedLANCETS (TRUEPLUS LANCETS) [address] [facility] Monitor Blood Glucose dailyLISINOPRIL-HYDROCHLOROTHIAZIDE 10-12.5 MG PER TABLET Take 1 tablet by mouth once dailyMETFORMIN 1,000 MG TABLET Take 1 tablet by mouth 2 (two) times daily with meals.MISCELLANEOUS MEDICAL SUPPLY [facility] E11.8: dispense Insulin Syringe 31 gauge brand [...] on fileFollow-up:Electronically signed by:Jackie Diaz DO01/05/24 0742 [id number] Emergency department [id number]:42:01Physician Emergency department [id number]|2 [id number] for patient [id number] department NoteLNNARRATIVEFormatted C-CDA narrative text[address] D[id number] [id number]:42:[id number] 0.1.72.3.15|[id number] [facility]
[2024-03-01] MEDS ORDERED: methocarbamoL 500 MG TAB ONE (13:13)
[2024-03-01] MEDS ORDERED: KETOROLAC 30 MG/ML INJ ONE (13:13)
[2024-03-01] MEDS ORDERED: LIDOCAINE 4% PATCH ONE (13:13)
--- NOTE | 2024-03-01 13:16 | EDPHYS ---
Physician Documentation [facility] Name: Edwin Linton Age: 69 yrs Sex: Male : 1955 Arrival Date: 03/01/2024 Time: 10:51 Bed IW3 Private MD: ED Physician Robert Yost HPI: 03/01 13:15 This 69 yrs old Male presents to ER via EMS with complaints of Back Pain. ec2 13:15 Patient arrives today for left-sided back pain ongoing for several months. Patient ec2 reports pain is worse with positional movements. Denies any recent falls or injuries or trauma. Patient reports no other concerns. Denies any red flag symptoms.. Historical: - Allergies: 11:13 No Known Allergies; ll1 - PMHx: 11:13 Cerebrovascular accident; diabetes mellitus; Hypercholesterolemia; Hypertensive ll1 disorder; - Immunization history:: Adult Immunizations up to date. - Infectious Disease History:: Denies. - Social history:: Smoking status: Patient denies any tobacco usage or history of. ROS: 13:15 Constitutional: as per hpi ec2 Exam: 13:15 Constitutional: GEN: NAD Head: atraumatic Eyes: EOMI Ears: External ears are ec2 normal. CV: regular rate LUNGS: no respiratory distress ABD: non-distended SKIN: no evidence of rashes MSK: no evidence of trauma, reproducible left mid back TTP, no deformities, no crepitus, no C/T/L-spine TTP, no deformities NEURO: moves all extremities equally Vital Signs: 11:14 BP 156 / 80; Pulse 82; Resp 18; Temp 97.9; Pulse Ox 100% on R/A; Weight 99.79 kg; ll1 Height 5 ft. 10 in. ; Pain 10/10; 13:24 BP 181 / 86; Pulse 72; Resp 18 S; Pulse Ox 99% on R/A; as6 11:14 Body Mass Index 31.57 (99.79 kg, 177.8 cm) ll1 11:14 Pain Scale: Adult ll1 MDM: 12:43 Patient medically screened. ec2 13:15 Data reviewed: vital signs. ED course: Patient arrives today for low back pain. ec2 Examination remarkable well-appearing nontoxic dividual's otherwise in no acute distress with a reassuring examination with reproducible TTP. Will give the patient medication to help with the symptoms. Suspect musculoskeletal back pain. Doubt spinal cord pathology given lack of red flag symptoms. Additionally doubt fractures given lack of trauma. Will defer any additional advanced imaging such as CT or MRI.. Administered Medications: 13:23 Drug: Lidoderm Topical Patch 5 % (700 mg/patch) 1 patches Topical once; leave on for 12 as6 hours; cover most painful area; may cut into smaller pieces Route: Topical; Site: affected area; 13:25 Follow up: Response: No adverse reaction as6 13:23 Drug: Methocarbamol PO 500 mg PO once Route: PO; as6 13:26 Follow up: Response: No adverse reaction as6 13:23 Drug: Ketorolac IM 30 mg IM once Route: IM; Site: right deltoid; as6 13:26 Follow up: Response: No adverse reaction as6 Disposition Summary: 03/01/24 13:15 Discharge Ordered Notes: Location: Home ec2 Condition: Stable ec2 Diagnosis - Low back pain ec2 Followup: ec2 - With: Private Physician - When: - Reason: Re-evaluation by your physician Discharge Instructions: - Discharge Summary Sheet ec2 - Acute Back Pain, Adult ec2 Forms: - Medication Reconciliation Form ec2 - Thank You Letter ec2 - Antibiotic Education ec2 - Prescription Opioid Use ec2 - Patient Portal Instructions ec2 - Leadership Thank You Letter ec2 Signatures: Wes Hampton RN RN ll1 Florentin Varela RN RN as6 Robert Yost MD MD ec2
--- NOTE | 2024-03-01 13:16 | ER ---
Nurse's Notes [facility] Name: Edwin Linton Age: 69 yrs Sex: Male : 1955 Arrival Date: 03/01/2024 Time: 10:51 Bed IW3 Private MD: Diagnosis: Low back pain Presentation: 03/01 11:14 Chief complaint: Patient states: Chronic back pain. EMS states: VSS fingerstick 281. ll1 Coronavirus screen: Client denies travel out of the [place] in the last 14 days. At this time, the client does not indicate any symptoms associated with coronavirus-19. Ebola Screen: Patient denies travel to an Ebola-affected area in the 21 days before illness onset. Initial Sepsis Screen: Does the patient meet any 2 criteria? No. Patient's initial sepsis screen is negative. Does the patient have a suspected source of infection? No. Patient's initial sepsis screen is negative. Risk Assessment: Do you want to hurt yourself or someone else? Patient reports no desire to harm self or others. Onset of symptoms was November 23, 2023. 11:14 Method Of Arrival: EMS ll1 11:14 Acuity: ROLAND 3 ll1 Historical: - Allergies: 11:13 No Known Allergies; ll1 - PMHx: 11:13 Cerebrovascular accident; diabetes mellitus; Hypercholesterolemia; Hypertensive ll1 disorder; - Immunization history:: Adult Immunizations up to date. - Infectious Disease History:: Denies. - Social history:: Smoking status: Patient denies any tobacco usage or history of. Screenin:24 [facility] ED Fall Risk Assessment (Adult) History of falling in the last 3 months, as6 including since admission No falls in past 3 months (0 pts) Confusion or Disorientation No (0 pts) Intoxicated or Sedated No (0 pts) Impaired Gait No (0 pts) Mobility Assist Device Used No (0 pt) Altered Elimination No (0 pt) Score/Fall Risk Level 0 - 2 = Low Risk Oriented to surroundings, Maintained a safe environment, Educated pt \T\ family on fall prevention, incl call for assistance when getting out of bed, Assessed \T\ reinforced patient's understanding of fall precautions. Abuse screen: Denies threats or abuse. Denies injuries from another. Nutritional screening: No deficits noted. Tuberculosis screening: No symptoms or risk factors identified. Assessment: 13:24 General: Appears in no apparent distress. Behavior is calm, cooperative. Pain: as6 Complains of pain in back. Vital Signs: 11:14 BP 156 / 80; Pulse 82; Resp 18; Temp 97.9; Pulse Ox 100% on R/A; Weight 99.79 kg; ll1 Height 5 ft. 10 in. ; Pain 10/10; 13:24 BP 181 / 86; Pulse 72; Resp 18 S; Pulse Ox 99% on R/A; as6 11:14 Body Mass Index 31.57 (99.79 kg, 177.8 cm) ll1 11:14 Pain Scale: Adult ll1 ED Course: 11:05 Patient arrived in ED. mg5 11:13 Arm band placed on. ll1 11:15 Triage completed. ll1 11:58 Robert Yost MD is Attending Physician. ec2 13:24 Patient has correct armband on for positive identification. Provided Education on: as6 follow up. 13:24 No provider procedures requiring assistance completed. Patient did not have IV access as6 during this emergency room visit. Administered Medications: 13:23 Drug: Lidoderm Topical Patch 5 % (700 mg/patch) 1 patches Topical once; leave on for 12 as6 hours; cover most painful area; may cut into smaller pieces Route: Topical; Site: affected area; 13:25 Follow up: Response: No adverse reaction as6 13:23 Drug: Methocarbamol PO 500 mg PO once Route: PO; as6 13:26 Follow up: Response: No adverse reaction as6 13:23 Drug: Ketorolac IM 30 mg IM once Route: IM; Site: right deltoid; as6 13:26 Follow up: Response: No adverse reaction as6 Medication: 13:24 VIS not applicable for this client. as6 Outcome: 13:15 Discharge ordered by . ec2 13:24 Discharged to home via wheelchair, as6 13:24 Condition: stable 13:24 Discharge instructions given to patient, Instructed on discharge instructions, follow up and referral plans. Demonstrated understanding of instructions, follow-up care, 13:26 Patient left the ED. as6 Signatures: Wes Hampton RN RN ll1 Florentin Varela RN RN as6 Evie Garcia mg5 Robert Yost MD MD ec2
[2024-03-01 14:00] VITALS: TEMP 97.9
[2024-03-01 14:02] VITALS: BP 181/86; O2SAT 99
== END 2024-03-01 13:26 | disposition home or self-care (01) ==
LOC: ER 10:51
DX: M54.50 Low back pain, unspecified (principal)
CPT/HCPCS: 96372; 99284; J2001

== ENCOUNTER 2024-04-12 18:27 | Inpatient (IN) | payer OTHER ==
--- OUTSIDE RECORDS SUMMARY | 2024-04-12 18:32 | XMS REPORT | Continuity of Care Document ---
Author Name Unknown Address [address] [facility] [address] [place] [address] [facility] Address [address] [facility] [address] [place] [address] Care Team Providers Care Procurement Assistant Name Role Phone Pcp, Patient Does Not Have A Primary Care Physic flaquito Destiny Caruso Attending Clinician [phone] MULUGETA PALMA Attending Clinician Unavailable Mulugeta Palma MD Attending Clinician [phone] NANDO HAGAN Attending Clinician Unavailable NANDO HAGAN Attending Clinician Unavailable JOHNNY TEE Attending Clinician Unavailable Johnny Tee PA-C Attending Clinician [phone] KVNG FRANK Attending Clinician UnavailKvng Flores Attending Clinician +[phone] Nargis Moore RN Attending Clinician UnavailBALJIT Underwood Attending Clinician Unavailable BALJIT GAYLE Attending Clinician Unavailable DL MILLARD Attending Clinician Unavailable Dl Millard MD Attending Clinician + DAVID PAUL Attending Clinician Unavailable David Paul DO Attending Clinician + TARA IRELAND Attending Clinician Unavailable Tara Ireland MD Attending Clinician +[phone] DESTINY MULLER Attending Clinician Unavailable ZO GREEN Attending Clinician UnavailZo Ding DO Attending Clinician +[phone] SILAS GREENE Attending Clinician Unavailable SILAS GREENE Attending Clinician Unavailable JACKIE DIAZ Attending Clinician Unavailab Jackie Moore DO Attending Clinician [phone] Lorene Stein Attending Clinician Tl Aranda MD Attending Clinician [phone] TL ARADNA Attending Clinician Unavailable Georgina Garcia RN Attending Clinician Unava ilable Doctor Unassigned, [place] Attending Clinician U navailable Provider, [facility] Attending Clinician Un available Green DOLLYMAN, Lesli Attending Clinician [phone] Pob, 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 Attending Clinician UnavailNIMISHA Haywood Attending Clinician Unavail able KUNAL JOEL Attending Clinician Unavailable Darrell Maxwell MD Attending Clinician [phone] AneYossi Aguilar Attending Clinician [phone] ANEYOSSI BATES Attending Clinician Unavailable Idalia ASHLEY, Debra Attending Clinician [phone] IDALIADEBRA SALINAS Attending Clinician Unavailable DARRELL BECKFORD Attending Clinician UnaDarrell Beltran MD Attending Clinician + [phone] Chelle Fernandez MD Attending Clinician [phone] CHELLE FERNANDEZ Attending Clinician Unavailable Natividad Copeland MD Attending Clinician UnaGlo Emanuel MD Attending Clinician [phone] GLO FINN Attending Clinician Unavailable Kendall Campa MD Attending Clinician [phone] JOCELYN GREER Attending Clinician UnavailDARRELL Khalil III Attending Clinician UnavailMARIAMA Castro Attending Clinician Unavailabl susi COPELAND, NATIVIDAD SCHMIDT Attending Clinician Unavailab NANDO Fortune Admitting Clinician Unavailable JOHNNY TEE Admitting Clinician Unavailable KVNG FRANK Admitting Clinician Unavaila BALJIT Maddox Admitting Clinician Unavailable DL MILLARD Admitting Clinician Unavailable TARA IRELAND Admitting Clinician Unavailable DESTINY MULLER Admitting Clinician Unavailable ZO GREEN Admitting Clinician Unavailab CHELLE Montenegro Admitting Clinician Unavailable TL ARANDA Admitting Clinician Unavailable Glo Finn MD Admitting Clinician GLO FINN Admitting Clinician Unavailable Payers Payer Name Policy Type Policy Number Effective Date Expirati on Date Source [facility] (MEDICARE REPLACEMENT HMO) [id number] 00:00:00 MEDICARE PART A \\T\\ B [id number] 2018 00:00:00 2019 00:00:00 COMMERCIAL NON-CONTRACT GENERIC [id number] 2018 00:00:00 2019 00:00:00 Problems Condition Name Condition Details Condition Category Status Onset Date Resolution Date Last Treatment Date Treating Clinician Comments Source Omental infarction Omental infarction Disease Active 3-09 00:00: 00 [facility] Psoriasifo rm dermatitis Psoriasifo rm dermatitis Disease Active 8-18 00:00: 00 [facility] Need for 23-polyval ent pneumococc al polysaccha ride vaccine Need for 23-polyval ent pneumococc al polysaccha ride vaccine Disease Active 3-28 00:00: 00 [facility] Cellulitis of foot, left Cellulitis of foot, left Disease Active 5-21 00:00: 00 [facility] Edema of both legs Edema of both legs Disease Active 02-27 00:00: 00 [facility] Erectile dysfunctio n, unspecifie d erectile dysfunctio n type Erectile dysfunctio n, unspecifie d erectile dysfunctio n type Disease Active 02-27 00:00: 00 [facility] Essential hypertensi on Essential hypertensi on Disease Active - 00:00: 00 [facility] Edema of both legs Edema of both legs Disease Active 02-27 00:00: 00 [facility] Erectile dysfunctio n, unspecifie d erectile dysfunctio n type Erectile dysfunctio n, unspecifie d erectile dysfunctio n type Disease Active -07 00:00: 00 [facility] Acute midline low back pain without sciatica Acute midline low back pain without sciatica Disease Active 01-18 00:00: 00 [facility] Medicare annual wellness visit, subsequent Medicare annual wellness visit, subsequent Disease Active 12-01 00:00: 00 Overview: Formattin g of this note might be different from the original. Added automatic ally from request for surgery [id number] [facility] Need for hepatitis C screening test Need for hepatitis C screening test Disease Active 2018-11 00:00: 00 [facility] Homelessne ss Homelessne ss Disease Active 2018-11 00:00: 00 [facility] Lesion of matthew Lesion of matthew Disease Active 2018-11 00:00: 00 [facility] Dyslipidem ia Dyslipidem ia Disease Active 2018-11 00:00: 00 [facility] Encounter for screening colonoscop y for non-high-r isk patient Encounter for screening colonoscop y for non-high-r isk patient Disease Active 2018-11 00:00: 00 [facility] 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 Disease Active 2018-11 00:00: 00 [facility] 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) Disease Active 2018-11 00:00: 00 [facility] 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) Disease Active 2018-11 00:00: 00 [facility] Erectile dysfunctio n due to type 2 diabetes mellitus Erectile dysfunctio n due to type 2 diabetes mellitus Disease Active 2018-11 00:00: 00 [facility] Upper respirator y tract infection, unspecifie d type Upper respirator y tract infection, unspecifie d type Disease Active 2018-11 00:00: 00 [facility] Obesity (BMI 30-39.9) Obesity (BMI 30-39.9) Disease Active 4 00:00: 00 [facility] Allergies, Adverse Reactions, Alerts Allergy Name Allergy Type Status Severity Reaction(s) Onset Date Inactive Date Treating Clinician Comments Source NO KNOWN ALLERGIE S Drug Class Active [facility] Social History Social Habit Start Date Stop Date Quantity Comments [facility] intake 2024-04-03 00:00:00 2024-04-03 00:00:00 Current non-drinker of alcohol (finding) [facility] Alcohol intake 2024-02-11 00:00:00 2024-02-11 00:00:00 Current non-drinker of alcohol (finding) [facility] Exposure to SARS-CoV-2 (event) 2021-06-10 00:00:00 2021-07-10 10:13:00 Not sure [facility] History of Social function 2021-07-10 00:00:00 2021-07-10 00:00:00 [facility] Tobacco use and exposure 2019-01-14 00:00:00 2019-01-14 00:00:00 Smokeless tobacco non-user [facility] Sex assigned at 1955 00:00:00 1955 00:00:00 [facility] Smoking Status Start Date Stop Date Source Never smoked tobacco [facility] Medications Ordered Medication Name Filled Medication Name Start Date Stop Date Current Medication? Ordering Clinician Indication Dosage Frequency Signature (SIG) Comments Components Source insulin regular human (HUMULIN R) injection 5 Units 04-06 10:30: 00 04-06 09:38 :00 No 5U 5 Units, Subcutaneo us, ONCE, 1 dose, On Thu04/06/24 at 0530, Routine, Indication for insulin: Hyperglyce danae [facility] insulin regular human (HUMULIN R) injection 5 Units 04-06 09:30: 00 04-06 08:38 :00 No 5U 5 Units, Subcutaneo us, ONCE, 1 dose, On Thu04/06/24 at 0430, Routine, Indication for insulin: Hyperglyce danae [facility] ergocalcife rol (vitamin d2) (CALCIFEROL ) capsule 50,000 Units 04-06 09:00: 00 04-06 08:33 :00 No [id number] 50,000 Units, Oral, ONCE NOW, 1 dose, On Thu04/06/24 at 0400, Routine [facility] magnesium sulfate in water 2 gram/50 mL (4 %) infusion 2 g 04-06 08:45: 00 04-06 09:30 :00 No 2g 2 g, IV Piggyback, Administer over 60 Minutes, ONCE, 1 dose, On Thu04/06/24 at 0345, [facility] thiamine (VITAMIN B1) injection 100 mg 04-06 08:00: 00 04-06 08:32 :00 No 100mg 100 mg, Slow IV Push, ONCE, 1 dose, On Thu04/06/24 at 0300, [facility] ceFAZolin (ANCEF) 1,000 mg in NaCl 0.9% (NS) 100 mL MINI-BAG 04-06 07:45: 00 04-06 07:30 :00 No 1000mg 1,000 mg, Intravenou s, ONCE, 1 dose, On Thu04/06/24 at 0245, Administer over 30 Minutes, 100 mL, Reason for Anti-Infec tive: Documented Infection, Documented Infection Site: Skin / Soft Tissue, Duration of Therapy: Once (ED) [facility] insulin regular human (HUMULIN R) injection 10 Units 04-06 07:30: 00 04-06 07:34 :00 No 10U 10 Units, Slow IV Push, ONCE, 1 dose, On Thu04/06/24 at 0230, STAT, Indication for insulin: Hyperglyce [facility] furosemide (LASIX) injection 40 mg 04-06 07:00: 00 04-06 06:59 :00 No 40mg 40 mg, IV Push, ONCE, 1 dose, On Thu04/06/24 at 0200, [facility] gabapentin (NEURONTIN) capsule 300 mg 04-06 07:00: 00 04-06 06:57 :00 No 300mg 300 mg, Oral, ONCE, 1 dose, On Thu04/06/24 at 0200, RICHARD [facility] gabapentin (NEURONTIN) 100 mg capsule 04-06 00:00: 00 Yes [id number] 100mg Take 1 capsule by mouth in the morning and 1 capsule at noon and 1 capsule in the evening. [facility] furosemide 20 mg tablet 04-06 00:00: 00 Yes [id number] 20mg Take 1 tablet by mouth every morning. [facility] cephALEXin 500 mg capsule 04-06 00:00: 00 Yes [id number] 500mg Take 1 capsule by mouth 4 (four) times daily. [facility] mupirocin 2 % ointment 04-06 00:00: 00 Yes [id number] Apply to area(s) 3 (three) times daily. [facility] NaCl 0.9% (NS) bolus infusion 500 mL 04-03 21:15: 00 04-03 22:05 :00 No 500mL at 999 mL/hr, 500 mL, IV Infusion, ONCE, 1 dose, On Thu04/03/24 at 1615, RICHARD [facility] magnesium sulfate in water 2 gram/50 mL (4 %) infusion 2 g 04-03 17:45: 00 04-03 19:00 :00 No 2g 2 g, IV Piggyback, Administer over 60 Minutes, ONCE, 1 dose, On Thu04/03/24 at 1245, Routine [facility] NaCl 0.9% (NS) bolus infusion 500 mL 04-03 16:00: 00 04-03 16:30 :00 No 500mL at 999 mL/hr, 500 mL, IV Infusion, ONCE, 1 dose, On Thu04/03/24 at 1100, RICHARD [facility] acetaminoph en (TYLENOL) tablet 650 mg 04-03 15:15: 00 04-03 15:46 :00 No 650mg 650 mg, Oral, ONCE, 1 dose, On Thu04/03/24 at 1015, [facility] piperacilli n-tazobacta m (ZOSYN) 3.375 g in NaCl 0.9% (NS) 100 mL VIAL-MATE 04-03 15:15: 00 04-03 16:19 :00 No 3.375g 3.375 g, IV Piggyback, ONCE, 1 dose, On Thu04/03/24 at 1015, Administer over 30 Minutes, 100 mL, Reason for Anti-Infec tive: Documented Infection, Documented Infection Site: Skin / Soft Tissue, Duration of Therapy: Once (ED) [facility] doxycycline hyclate 100 mg capsule 04-03 00:00: 00 04-03 00:00 :00 Yes [id number] 100mg Take 1 capsule by mouth in the morning and 1 capsule in the evening. [facility] insulin regular human (HUMULIN R) injection 10 Units 03-31 21:45: 00 03-31 23:18 :00 No 10U 10 Units, Slow IV Push, ONCE, 1 dose, On Thu03/31/24 at 1645, STAT, Indication for insulin: Hyperglyce danae [facility] acetaminoph en (TYLENOL) tablet 650 mg 03-29 21:15: 00 03-29 22:29 :00 No 650mg 650 mg, Oral, ONCE, 1 dose, On Thu03/29/24 at 1615, [facility] NaCl 0.9% (NS) bolus infusion 500 mL 03-22 16:30: 00 03-22 21:50 :00 No 500mL at 999 mL/hr, 500 mL, IV Infusion, ONCE, 1 dose, On Thu03/22/24 at 1130, [facility] NaCl 0.9% (NS) bolus infusion 1,000 mL 03-12 03:30: 00 03-12 04:43 :00 No 1000mL at 999 mL/hr, 1,000 mL, IV Infusion, ONCE, 1 dose, On Thu03/11/24 at 2230, STAT [facility] insulin regular human (HUMULIN R) injection 10 Units 03-12 03:30: 00 03-12 02:40 :00 No 10U 10 Units, IV Push, ONCE, 1 dose, On Thu03/11/24 at 2230, RICHARD
In dication for insulin: Hyperglyce danae [facility] NaCl 0.9% (NS) bolus infusion 1,000 mL 03-12 02:45: 00 03-12 03:00 :00 No 1000mL at 999 mL/hr, 1,000 mL, IV Infusion, ONCE, 1 dose, On Thu03/11/24 at 2145, STAT [facility] meclizine (TRAVEL-EAS E (MECLIZINE) ) tablet 25 mg 02-09 17:15: 00 02-09 17:17 :00 No 25mg 25 mg, Oral, ONCE, 1 dose, On Thu02/10/24 at 1215, RICHARD [facility] ketorolac (TORADOL) injection 15 mg 02-08 20:00: 00 02-08 20:42 :00 No 15mg 15 mg, Intramuscu lar, ONCE, 1 dose, On Thu02/09/24 at 1500, Routine [facility] methocarbam oL (ROBAXIN) tablet 1,000 mg 02-08 19:15: 00 02-08 20:43 :00 No 1000mg 1,000 mg, Oral, ONCE, 1 dose, On Thu02/09/24 at 1415, RICHARD [facility] cyclobenzap rine (FLEXERIL) tablet 10 mg 02-05 15:30: 00 02-05 15:14 :00 No 10mg 10 mg, Oral, ONCE, 1 dose, On Thu02/06/24 at 1030, Routine [facility] cyclobenzap rine 10 mg tablet 02-05 00:00: 00 02-11 04:59 :00 Yes [id number] 10mg Take 1 tablet by mouth in the morning and 1 tablet at noon and 1 tablet in the evening. Do all this for 15 doses. [facility] dicyclomine (BENTYL) tablet 20 mg 01-29 20:45: 00 01-29 20:51 :00 No 20mg 20 mg, Oral, ONCE, 1 dose, On 01/30/24 [facility] 1445[facility] 1,000 mg 01-29 19:15: 00 01-29 19:06 :00 No 1000mg 1,000 mg, Oral, ONCE, 1 dose, On 01/30/24 at 1315, [facility] ketorolac (TORADOL) tablet 10 mg 01-29 17:45: 00 01-29 17:01 :00 No 10mg 10 mg, Oral, ONCE, 1 dose, On 01/30/24 at 1145, Routine [facility] tiZANidine 4 mg tablet 01-29 00:00: 00 Yes [id number] 4mg Take 1 tablet by mouth every 6 (six) hours as needed for Pain (scale 7-10). [facility] dicyclomine 20 mg tablet 01-29 00:00: 00 Yes [id number] 20mg Take 1 tablet by mouth 4 (four) times daily as needed for Abdominal pain. [facility] ibuprofen (IBU) tablet 600 mg 01-15 03:30: 00 01-15 03:42 :00 No 600mg 600 mg, Oral, ONCE, 1 dose, On Sheree 01/14/24 at 2130, [facility] methocarbam oL (ROBAXIN) tablet 750 mg 01-15 03:26: 00 01-15 03:42 :00 No 750mg 750 mg, Oral, ONCE NOW, 1 dose, On Sheree 01/14/24 at 2130, [facility] LISINOPRIL- HYDROCHLORO THIAZIDE 10-12.5 mg per tablet 02-17 00:00: 00 Yes [id number] Take 1 tablet by mouth once daily [facility] blood sugar diagnostic (TRUE METRIX GLUCOSE TEST STRIP) strip 2020-11 00:00: 00 Yes [id number] Monitor Blood Glucose daily [facility] simvastatin 40 mg tablet 2020-11 00:00: 00 Yes [id number] 40mg Take 1 tablet by mouth at bedtime. [facility] furosemide 20 mg tablet 2020-11 00:00: 00 Yes [id number] 20mg Take 1 tablet by mouth daily. [facility] lancets (TRUEPLUS LANCETS) 33 gauge Misc 2020-11 00:00: 00 Yes [id number] Monitor Blood Glucose daily [facility] Alcohol Swabs (BD SINGLE USE SWABS REGULAR) PadM 2020-11 00:00: 00 Yes [id number] Apply to area(s) daily. Monitor Blood Glucose daily [facility] SIMVASTATIN 40 mg tablet 2020-11 00:00: 00 Yes [id number] 40mg TAKE 1 TABLET BY MOUTH AT BEDTIME [facility] insulin NPH (HUMULIN N NPH U-100 INSULIN) 100 unit/mL injection 07-10 00:00: 00 Yes [id number] INJECT 35 UNITS SUBCUTANEO USLY EVERY MORNING AND EVENING. Office visit needed for further refills. [facility] metFORMIN 1,000 mg tablet 07-10 00:00: 00 Yes [id number] 1000mg Take 1 tablet by mouth 2 (two) times daily with meals. [facility] furosemide 20 mg tablet 07-10 00:00: 00 Yes [id number] 20mg Take 1 tablet by mouth every Thursday, and Thursday in the evening. [facility] lisinopriL- hydrochloro thiazide 10-12.5 mg per tablet 07-10 00:00: 00 02-17 00:00 :00 No [id number] 1{tbl} Take 1 tablet by mouth daily. [facility] simvastatin (ZOCOR) 40 mg tablet 07-10 00:00: 00 10-04 00:00 :00 No [id number] 40mg Take 1 tablet by mouth at bedtime. [facility] insulin NPH (HUMULIN N NPH U-100 INSULIN) 100 unit/mL injection 06-19 00:00: 00 07-10 00:00 :00 No [id number] INJECT 35 UNITS SUBCUTANEO USLY EVERY MORNING AND EVENING. Office visit needed for further refills. [facility] HUMULIN N NPH U-100 INSULIN 100 unit/mL injection 05-21 00:00: 00 Yes [id number] INJECT 35 UNITS SUBCUTANEO USLY IN THE MORNING AND IN THE EVENING [facility] furosemide 20 mg tablet 02-15 00:00: 00 07-10 00:00 :00 No [id number] 20mg Take 1 tablet by mouth every Thursday, and Thursday in the evening. [facility] sildenafiL 50 mg tablet 02-14 00:00: 00 Yes [id number] 50mg Take 1 tablet by mouth as needed (Erectile dysfunctio n). Take 50mg x 1, about 30 mins - 4 hours prior to sexual activity. [facility] insulin NPH (HUMULIN N NPH U-100 INSULIN) 100 unit/mL injection 02-14 00:00: 00 05-21 00:00 :00 No [id number] INJECT 35 UNITS SUBCUTANEO USLY IN THE MORNING AND IN THE EVENING [facility] HUMULIN N NPH U-100 INSULIN 100 unit/mL injection 02-10 00:00: 00 02-14 00:00 :00 No [id number] INJECT 35 UNITS SUBCUTANEO USLY IN THE MORNING AND IN THE EVENING [facility]: 00 Yes [id number] E11.8: dispense Insulin Syringe 31 gauge brand covered by insurance. Monitor Blood Sugar at Home BID [facility] 02-06 00:00: 00 Yes [id number] E11.8: dispense Insulin Syringe 31 gauge brand covered by insurance. Monitor Blood [facility] at [facility]ID [facility] Ins[facility] Syringe-Nee dle U-100 1 mL 27 gauge x 1/2" Syrg 3- 00:00: 00 Yes [id number] Use as directed [facility] Syringe-Nee dle U-100 1 mL 27 gauge x 1/2" Syrg 3- 00:00: 00 Yes [id number] Use as directed [facility] Syringe-Nee dle U-100 1 mL 27 gauge x 1/2" Syrg 3- 00:00: 00 Yes [id number] Use as directed [facility] Insulin [place], Disposable, (PHUC PEN NEEDLE) 32 gauge x 5/32" Ndle 3- 00:00: 00 Yes [id number] Use as directed [facility] Insulin [place], Disposable, (PHUC PEN NEEDLE) 32 gauge x 5/32" Nd 3 00:00: 00 Yes [id number] Use as directed [facility] Insulin [place], Disposable, (PHUC PEN NEEDLE) 32 gauge x 5/32" Ndle 3 00:00: 00 Yes [id number] Use as directed [facility] Insulin [place], Disposable, (PHUC PEN NEEDLE) 32 gauge x 5/32" Ndle 07-09 00:00: 00 Yes [id number] Use as directed [facility] aspirin 81 mg EC tablet 07-09 00:00: 00 Yes [id number] 81mg Take 1 tablet by mouth daily. [facility] potassium chloride 10 mEq CR tablet 07-09 00:00: 00 Yes [id number] 10meq Take 1 tablet by mouth every Thursday, and Thursday in the evening. [facility] lisinopril 10 mg tablet 07-09 00:00: 00 07-10 00:00 :00 No [id number] 10mg Take 1 tablet by mouth daily. [facility] simvastatin (ZOCOR) 40 mg tablet 07-09 00:00: 00 07-10 00:00 :00 No [id number] 40mg Take 1 tablet by mouth at bedtime. [facility] metFORMIN 1,000 mg tablet 07-09 00:00: 00 07-10 00:00 :00 No [id number] 1000mg Take 1 tablet by mouth 2 (two) times daily with meals. [facility] furosemide 20 mg tablet 07-09 00:00: 02-14 00:00 :00 No [id number] 20mg Take 1 tablet by mouth every Thursday, and Thursday in the evening. [facility] insulin NPH 100 unit/mL injection 07-09 00:00: 02-10 00:00 :00 No [id number] 35U inject 35 Units under the skin every morning and evening. [facility] potassium chloride 10 mEq CR tablet 04-13 00:00: 07-09 00:00 :00 No [id number] 10meq Take 1 tablet by mouth every Thursday, and Thursday in the evening. [facility] furosemide 20 mg tablet 04-13 00:00: 07-09 00:00 :00 No [id number] 20mg Take 1 tablet by mouth every Thursday, and Thursday in the evening. [facility] doxycycline hyclate 100 mg tablet 04-12 00:00: 00 07-09 00:00 :00 No [id number] 100mg Take 1 tablet by mouth 2 (two) times daily. [facility] diph,pertus (acel),teta nus (ADACEL) injection 0.5 mL 03-12 14:00: 00 03-13 01:59 :00 No .5mL 0.5 mL, Intramuscu lar, ONCE, 1 dose, Thu03/12/20 at 0900, Routine [facility] clindamycin 300 mg capsule 03-12 00:00: 00 03-23 04:59 :00 No [id number] 300mg Take 1 capsule by mouth 4 (four) times daily for 10 days. [facility] sildenafil 50 mg tablet 07 00:00: 00 02-14 00:00 :00 No [id number] 50mg Take 1 tablet by mouth as needed (Erectile dysfunctio n). Take 50mg x 1, about 30 mins - 4 hours prior to sexual activity. [facility] metFORMIN 1,000 mg tablet 01-18 00:00: 00 07-09 00:00 :00 No [id number] 1000mg Take 1 tablet by mouth 2 (two) times daily with meals. [facility] ondansetron (ZOFRAN (PF)) injection 4 mg 12-30 17:29: 59 Yes 4mg 4 mg, Slow IV Push, PRN, 1 dose, Starting Thu12/30/19 at 1129, Until Discontinu ed, Routine, Nausea and Vomiting (N/V), PACU [facility] water for irrigation irrigation solution 12-30 16:20: 00 Yes PRN, Starting Thu12/30/19 at 1020, Until Discontinu ed, Routine, Intra-op [facility] simethicone (GAS RELIEF (SIMETHICON E)) 40 mg/0.6 mL drops 12-30 16:19: 00 Yes PRN, Starting Thu12/30/19 at 1019, Until Discontinu ed, Routine, Intra-op [facility] NaCl 0.9% (NS) IV infusion 1,000 mL 12-30 13:45: 00 Yes 1000mL at 42 mL/hr, IV Infusion, CONTINUOUS , Starting Thu12/30/19 at 0745, Until Discontinu ed, Routine, DSU Pre-op [facility] peg-electro lyte soln 236-22.74-6 .74 -5.86 gram solution 11-30 00:00: 00 Yes Take as directed [facility] prednisoLON E acetate 1 % ophthalmic suspension drops 2018-11 00:00: 00 Yes [id number] 1[drp] Place 1 Drop in right eye 4 (four) times daily. [facility] ofloxacin (OCUFLOX) 0.3 % ophthalmic solution 2018-11 00:00: 00 Yes [id number] 1[drp] Place 1 Drop in right eye 3 (three) times daily. [facility] aspirin 81 mg EC tablet 2018-11 00:00: 00 07-09 00:00 :00 No [id number] 81mg Take 1 tablet by mouth daily. [facility] Insulin [place], Disposable, (PHUC PEN NEEDLE) 32 gauge x 5/32" Ndle 2018-11 00:00: 00 07-09 00:00 :00 No [id number] Use as directed [facility] lactobacill us comb no.10 (PROBIOTIC) 20 billion cell Cap 06-10 00:00: 00 07-09 00:00 :00 No [id number] 1{capsu le} Take 1 capsule by mouth 2 (two) times daily. [facility] simvastatin (ZOCOR) 40 mg tablet 05-30 00:00: 07-09 00:00 :00 No [id number] 40mg Take 1 tablet by mouth at bedtime. [facility] lisinopril 10 mg tablet 05-30 00:00: 00 07-09 00:00 :00 No [id number] 10mg Take 1 tablet by mouth daily. [facility] insulin NPH 100 unit/mL injection 05-30 00:00: 00 07-09 00:00 :00 No [id number] 35U inject 35 Units under the skin every morning and evening. [facility] metFORMIN 500 mg tablet 05-30 00:00: 00 01-18 00:00 :00 No [id number] 500mg Take 1 tablet by mouth 2 (two) times daily with meals. [facility] Immunizations Ordered Immunization Name Filled Immunization Name Date Status Comments Source TDAP Unknown Completed [facility] TDAP Unknown Completed [facility] TDAP Unknown Completed [facility] TDAP Unknown Completed [facility] Vital Signs Vital Name Observation Time Observation Value Comments S ource Heart rate 2024-04-06 10:11:00 72 /min [facility]ive [facility] Body temperature 2024-04-06 10:11:00 36.89 Ginny [facility] Respiratory rate 2024-04-06 10:11:00 16 /min [facility] Oxygen saturation in Arterial blood by Pulse oximetry 2024-04-06 10:11:00 99 /min [facility] Systolic blood pressure 2024-04-06 10:00:00 130 mm[Hg] [facility] Diastolic blood pressure 2024-04-06 10:00:00 74 mm[Hg] [facility] Body height 2024-04-06 06:52:00 177.8 cm [facility] Body weight 2024-04-06 06:52:00 99.791 kg [facility] BMI 2024-04-06 06:52:00 31.57 kg/m2 [facility] Systolic blood pressure 2024-04-03 21:45:00 164 mm[Hg] [facility] Diastolic blood pressure 2024-04-03 21:45:00 85 mm[Hg] [facility] Heart rate 2024-04-03 21:45:00 88 /min [facility] Respiratory rate 2024-04-03 21:45:00 16 /min [facility] Oxygen saturation in Arterial blood by Pulse oximetry 2024-04-03 21:45:00 96 /min [facility] Body temperature 2024-04-03 14:41:00 36.5 Ginny [facility] Systolic blood pressure 2024-04-01 00:04:00 132 mm[Hg] [facility] Diastolic blood pressure 2024-04-01 00:04:00 73 mm[Hg] [facility] Heart rate 2024-04-01 00:04:00 76 /min [facility] Respiratory rate 2024-04-01 00:04:00 18 /min [facility] Oxygen saturation in Arterial blood by Pulse oximetry 2024-04-01 00:04:00 98 /min [facility] Body height 2024-03-31 23:15:00 177.8 cm [facility] Body temperature 2024-03-31 17:35:00 36.72 Ginny [facility] Body weight 2024-03-31 17:35:00 99.791 kg [facility] BMI 2024-03-31 17:35:00 31.57 kg/m2 [facility] Respiratory rate 2024-03-29 21:38:00 18 /min [facility] Oxygen saturation in Arterial blood by Pulse oximetry 2024-03-29 21:38:00 99 /min [facility] Systolic blood pressure 2024-03-29 21:38:00 135 mm[Hg] [facility] Diastolic blood pressure 2024-03-29 21:38:00 74 mm[Hg] [facility] Heart rate 2024-03-29 21:38:00 66 /min Unive [facility] Body temperature 2024-03-29 21:38:00 36.72 Ginny [facility] Body weight 2024-03-29 19:47:00 99.791 kg [facility] BMI 2024-03-29 19:47:00 31.57 kg/m2 [facility] Systolic blood pressure 2024-03-22 21:30:00 175 mm[Hg] [facility] Diastolic blood pressure 2024-03-22 21:30:00 90 mm[Hg] [facility] Heart rate 2024-03-22 21:30:00 84 /min [facility] Respiratory rate 2024-03-22 21:30:00 16 /min [facility] Oxygen saturation in Arterial blood by Pulse oximetry 2024-03-22 21:30:00 100 /min [facility] Body temperature 2024-03-22 14:55:00 36.94 Ginny [facility] Systolic blood pressure 2024-03-12 04:00:00 155 mm[Hg] [facility] Diastolic blood pressure 2024-03-12 04:00:00 103 mm[Hg] [facility] Heart rate 2024-03-12 04:00:00 92 /min [facility] Respiratory rate 2024-03-12 04:00:00 18 /min [facility] Oxygen saturation in Arterial blood by Pulse oximetry 2024-03-12 04:00:00 98 /min [facility] Body temperature 2024-03-12 01:17:00 37.33 Ginny [facility] Body height 2024-03-12 01:17:00 177.8 cm [facility] Body weight 2024-03-12 01:17:00 99.791 kg [facility] BMI 2024-03-12 01:17:00 31.57 kg/m2 [facility] Systolic blood pressure 2024-02-10 19:50:00 158 mm[Hg] [facility] Diastolic blood pressure 2024-02-10 19:50:00 87 mm[Hg] [facility] Heart rate 2024-02-10 19:50:00 86 /min Unive [facility] Respiratory rate 2024-02-10 19:50:00 18 /min [facility] Oxygen saturation in Arterial blood by Pulse oximetry 2024-02-10 19:50:00 96 /min [facility] Body temperature 2024-02-10 16:57:00 36.72 Ginny [facility] Body height 2024-02-10 16:57:00 177.8 cm [facility] Body weight 2024-02-10 16:57:00 99.791 kg [facility] BMI 2024-02-10 16:57:00 31.57 kg/m2 [facility] Systolic blood pressure 2024-02-09 22:00:00 143 mm[Hg] [facility] Diastolic blood pressure 2024-02-09 22:00:00 76 mm[Hg] [facility] Heart rate 2024-02-09 22:00:00 83 /min Unive [facility] Respiratory rate 2024-02-09 22:00:00 16 /min [facility] Oxygen saturation in Arterial blood by Pulse oximetry 2024-02-09 22:00:00 100 /min [facility] Body temperature 2024-02-09 19:02:00 35.94 Ginny [facility] Body height 2024-02-09 19:02:00 177.8 cm [facility] Body weight 2024-02-09 19:02:00 99.791 kg [facility] BMI 2024-02-09 19:02:00 31.57 kg/m2 [facility] Systolic blood pressure 2024-02-06 14:26:00 163 mm[Hg] [facility] Diastolic blood pressure 2024-02-06 14:26:00 77 mm[Hg] [facility] Heart rate 2024-02-06 14:26:00 71 /min Unive [facility] Body temperature 2024-02-06 14:26:00 36.61 Ginny [facility] Respiratory rate 2024-02-06 14:26:00 16 /min [facility] Body height 2024-02-06 14:26:00 165.1 cm [facility] Body weight 2024-02-06 14:26:00 99.791 kg [facility] BMI 2024-02-06 14:26:00 36.61 kg/m2 [facility] Oxygen saturation in Arterial blood by Pulse oximetry 2024-02-06 14:26:00 98 /min [facility] Systolic blood pressure 2024-01-30 16:05:00 150 mm[Hg] [facility] Diastolic blood pressure 2024-01-30 16:05:00 89 mm[Hg] [facility] Heart rate 2024-01-30 16:05:00 71 /min Unive [facility] Body temperature 2024-01-30 16:05:00 37 Ginny [facility] Respiratory rate 2024-01-30 16:05:00 18 /min [facility] Body height 2024-01-30 16:05:00 177.8 cm [facility] Body weight 2024-01-30 16:05:00 100.699 kg [facility] BMI 2024-01-30 16:05:00 31.85 kg/m2 [facility] Oxygen saturation in Arterial blood by Pulse oximetry 2024-01-30 16:05:00 99 /min [facility] Systolic blood pressure 2024-01-15 03:18:00 150 mm[Hg] [facility] Diastolic blood pressure 2024-01-15 03:18:00 75 mm[Hg] [facility] Heart rate 2024-01-15 03:18:00 79 /min Unive [facility] Body temperature 2024-01-15 03:18:00 36.5 Ginny [facility] Respiratory rate 2024-01-15 03:18:00 18 /min [facility] Body height 2024-01-15 03:18:00 177.8 cm [facility] Body weight 2024-01-15 03:18:00 99.791 kg [facility] BMI 2024-01-15 03:18:00 31.57 kg/m2 [facility] Oxygen saturation in Arterial blood by Pulse oximetry 2024-01-15 03:18:00 98 /min [facility] Systolic blood pressure 2024-01-05 12:37:00 161 mm[Hg] [facility] Diastolic blood pressure 2024-01-05 12:37:00 76 mm[Hg] [facility] Heart rate 2024-01-05 12:37:00 76 /min [facility] Body temperature 2024-01-05 12:37:00 36.89 Ginny [facility] Respiratory rate 2024-01-05 12:37:00 18 /min [facility] Body height 2024-01-05 12:37:00 177.8 cm [facility] Body weight 2024-01-05 12:37:00 99.791 kg [facility] BMI 2024-01-05 12:37:00 31.57 kg/m2 [facility] Oxygen saturation in Arterial blood by Pulse oximetry 2024-01-05 12:37:00 96 /min [facility] Systolic blood pressure 2021-07-10 22:35:00 173 mm[Hg] [facility] Diastolic blood pressure 2021-07-10 22:35:00 71 mm[Hg] [facility] Heart rate 2021-07-10 22:35:00 50 /min [facility] [place] [facility] Body height 2021-07-10 22:35:00 177.8 cm [facility] [place] [facility] Body weight 2021-07-10 22:35:00 114.306 kg [facility] [place] BMI 2021-07-10 22:35:00 36.16 [facility] in Arterial blood by Pulse oximetry 2021-07-10 22:35:00 99 /min [place] [facility] Systolic blood pressure 2021-07-10 15:12:00 173 mm[Hg] [place] [facility] [place] Diastolic blood pressure 2021-07-10 15:12:00 71 mm[Hg] [place] [facility] Heart rate 2021-07-10 15:10:00 50 /min [facility] Body height 2021-07-10 15:10:00 177.8 cm [facility] [place] [facility] Body weight 2021-07-10 15:10:00 114.306 kg [facility] [place] [facility] BMI 2021-07-10 15:10:00 36.16 kg/m2 [facility] saturation in Arterial blood by Pulse oximetry 2021-07-10 15:10:00 99 /min [place] [facility] Systolic blood pressure 2021-05-20 23:06:00 130 mm[Hg] [facility] [place] Diastolic blood pressure 2021-05-20 23:06:00 76 mm[Hg] [facility] Heart rate 2021-05-20 23:05:00 67 /min Unive [facility] Body temperature 2021-05-20 23:05:00 36.33 Ginny [facility] Respiratory rate 2021-05-20 23:05:00 18 /min [facility] Body height 2021-05-20 23:05:00 177.8 cm [facility] [place] [facility] Body weight 2021-05-20 23:05:00 112.583 kg [facility] BMI 2021-05-20 23:05:00 35.61 kg/m2 [facility] saturation in Arterial blood by Pulse oximetry 2021-05-20 23:05:00 97 /min [facility] Systolic blood pressure 2021-02-14 21:09:00 153 mm[Hg] [facility] Diastolic blood pressure 2021-02-14 21:09:00 76 mm[Hg] [facility] Heart rate 2021-02-14 21:09:00 58 /min Unive [facility] Body temperature 2021-02-14 21:09:00 36.72 Ginny [facility] Respiratory rate 2021-02-14 21:09:00 18 /min [facility] Body weight 2021-02-14 21:09:00 115.667 kg [facility] BMI 2021-02-14 21:09:00 35.57 kg/m2 [facility] Oxygen saturation in Arterial blood by Pulse oximetry 2021-02-14 21:09:00 97 /min [facility] Systolic blood pressure 2020-04-12 14:51:00 126 mm[Hg] [facility] Diastolic blood pressure 2020-04-12 14:51:00 76 mm[Hg] [facility] Heart rate 2020-04-12 14:51:00 58 /min Unive [facility] Body temperature 2020-04-12 14:51:00 36.72 Ginny [facility] Respiratory rate 2020-04-12 14:51:00 18 /min [facility] Body height 2020-04-12 14:51:00 180.3 cm [facility] Body weight 2020-04-12 14:51:00 113.399 kg [facility] BMI 2020-04-12 14:51:00 34.87 kg/m2 [facility] Oxygen saturation in Arterial blood by Pulse oximetry 2020-04-12 14:51:00 98 /min [facility] Systolic blood pressure 2020-03-12 13:30:00 115 mm[Hg] [facility] Diastolic blood pressure 2020-03-12 13:30:00 81 mm[Hg] [facility] Heart rate 2020-03-12 13:30:00 51 /min Unive [facility] Respiratory rate 2020-03-12 13:30:00 20 /min [facility] Oxygen saturation in Arterial blood by Pulse oximetry 2020-03-12 13:30:00 97 /min [facility] Body temperature 2020-03-12 12:37:00 36.22 Ginny [facility] Body weight 2020-03-12 12:37:00 111.131 kg [facility] BMI 2020-03-12 12:37:00 34.17 kg/m2 [facility] Systolic blood pressure 2020-01-18 13:42:00 136 mm[Hg] [facility] Diastolic blood pressure 2020-01-18 13:42:00 73 mm[Hg] [facility] Heart rate 2020-01-18 13:42:00 52 /min Unive [facility] Body temperature 2020-01-18 13:42:00 36.56 Ginny [facility] Respiratory rate 2020-01-18 13:42:00 18 /min [facility] Body height 2020-01-18 13:42:00 180.3 cm [facility] Body weight 2020-01-18 13:42:00 113.309 kg [facility] BMI 2020-01-18 13:42:00 34.84 kg/m2 [facility] Oxygen saturation in Arterial blood by Pulse oximetry 2020-01-18 13:42:00 96 /min [facility] Systolic blood pressure 2019-12-30 17:24:00 154 mm[Hg] [facility] Diastolic blood pressure 2019-12-30 17:24:00 79 mm[Hg] [facility] Heart rate 2019-12-30 17:24:00 60 /min Unive [facility] Respiratory rate 2019-12-30 17:24:00 16 /min [facility] Oxygen saturation in Arterial blood by Pulse oximetry 2019-12-30 17:24:00 96 /min [facility] Body temperature 2019-12-30 16:55:00 36.39 Ginny [facility] Body height 2019-12-26 22:40:00 180.3 cm [facility] Body weight 2019-12-26 22:40:00 116.121 kg [facility] BMI 2019-12-26 22:40:00 35.72 kg/m2 [facility] Systolic blood pressure 2019-12-19 14:13:00 135 mm[Hg] [facility] Diastolic blood pressure 2019-12-19 14:13:00 72 mm[Hg] [facility] Heart rate 2019-12-19 14:11:00 56 /min [facility] Respiratory rate 2019-12-19 14:11:00 19 /min [facility] Body height 2019-12-19 14:11:00 180.3 cm [facility] Body weight 2019-12-19 14:11:00 117.935 kg [facility] BMI 2019-12-19 14:11:00 36.26 kg/m2 [facility] Oxygen saturation in Arterial blood by Pulse oximetry 2019-12-19 14:11:00 96 /min [facility] Procedures Procedure Date / Time Performed Performing Clinician Source POCT GLUCOSE (AUTOMATED) 2024-04-06 10:11:00 Mulugeta Palma [facility] POCT GLUCOSE (AUTOMATED) 2024-04-06 09:34:00 Minerva [facility] POCT GLUCOSE (AUTOMATED) 2024-04-06 08:30:00 Minerva [facility] POCT GLUCOSE (AUTOMATED) 2024-04-06 07:57:00 Minerva [facility] POCT GLUCOSE (AUTOMATED) 2024-04-06 07:34:00 Mulugeta Palma [facility] MAGNESIUM 2024-04-06 06:56:00 Mulugeta Palma [facility] COMP. METABOLIC PANEL ([id number]) 2024-04-06 06:56:00 Mulugeta Palma [facility] CBC WITH DIFF 2024-04-06 06:56:00 Mulugeta Palma [facility] URINALYSIS 2024-04-06 06:56:00 Mulugeta Palma [facility] POCT GLUCOSE (AUTOMATED) 2024-04-06 06:44:00 [facility] 2024-04-03 21:51:36 Danya [facility] ACUTE CARE ARTERIAL BLOOD GAS 2024-04-03 19:07:[address] [facility] AMMONIA, PLASMA 2024-04-03 18:53:00 Nando Hagan [facility] URINALYSIS 2024-04-03 17:52:00 Danya [facility] URINE DRUG (IMMUNOASSAY) - COMPREHENSIVE DRUG SCREEN W/O REFLEX 2024-04-03 17:52:[address] [facility] XR CHEST 1 VW 2024-04-03 16:27:00 Nando Hagan [facility] XR FOOT 3+ VW RIGHT 2024-04-03 16:27:00 Darwin Hagan [facility] LACTIC ACID WHOLE BLOOD 2024-04-03 15:53:00 Ronnie Hagan [facility] PHOSPHORUS 2024-04-03 15:52:00 Danya [facility] CREATINE KINASE 2024-04-03 15:52:00 Nando Hagan [facility] MAGNESIUM 2024-04-03 15:52:00 Danya [facility] TROPONIN I 2024-04-03 15:52:00 Danya [facility] COMP. METABOLIC PANEL ([id number]) 2024-04-03 15:52:[address] [facility] ETHANOL 2024-04-03 15:52:00 Danya [facility] CBC WITH DIFF 2024-04-03 15:52:00 Nando Hagan [facility] GALV ONLY - INFLUENZA A B RSV PCR 2024-04-03 15:52:[address] [facility] N-TERMINAL PRO-BNP 2024-04-03 15:52:00 Abhijit Hagan [facility] COVID-19 (ID NOW RAPID TESTING) 2024-04-03 15:52:[address] [facility] POCT GLUCOSE(AGE >30DAYS) 2024-04-03 15:46:00 Nadno Hagan [facility] POCT GLUCOSE (AUTOMATED) 2024-04-03 15:43:00 Nando Hagan [facility] CT CERVICAL SPINE WO CONTRAST 2024-04-03 15:38:[address] [facility] CT HEAD WO CONTRAST 2024-04-03 15:38:07 Darwin Hagan [facility] POCT GLUCOSE (AUTOMATED) 2024-04-01 00:04:00 Racheal Tee [facility] POCT GLUCOSE (AUTOMATED) 2024-03-31 23:19:00 Racheal Tee [facility] COMP. METABOLIC PANEL ([id number]) 2024-03-31 19:37:00 Johnny Tee [facility] CBC WITH DIFF 2024-03-31 19:37:00 [facility]. BLUE 2024-03-31 19:37:00 Johnny Tee [facility] CT CERVICAL SPINE WO CONTRAST 2024-03-31 19:14:18 Johnny Tee [facility] CT HEAD WO CONTRAST 2024-03-31 19:14:18 Johnny Tee [facility] XR KNEE 3 VW RIGHT 2024-03-29 22:12:44 Kvng Frank [facility] EKG-12 LEAD 2024-03-22 21:31:10 Libby Fernandez [facility] URINALYSIS 2024-03-22 17:07:00 Libby Fernandez [facility] EXTRA TUBE URINE CULTURE 2024-03-22 17:07:00 Baljit Gayle [facility] XR CHEST 2 VW 2024-03-22 16:13:07 Libby Fernandez [facility] CREATINE KINASE 2024-03-22 15:46:00 Libby Fernandez [facility] TROPONIN I 2024-03-22 15:46:00 Libby Fernandez [facility] HEPATIC FUNCTION PANEL ([id number]) (ALB,T.PRO,BILI T,BU/BC,ALT,AST,ALK PHOS) 2024-03-22 15:46:00 Libby Fernandez [facility] BASIC METABOLIC PANEL (NA, K, CL, CO2, GLUCOSE, BUN, CREATININE, CA) 2024-03-22 15:46:00 Libby Fernandez [facility] CBC WITH DIFF 2024-03-22 15:46:00 Libby Fernandez [facility] GLYCOSYLATED HEMOGLOBIN (A1C) 2024-03-22 15:46:00 Baljit Gayle [facility] N-TERMINAL PRO-BNP 2024-03-22 15:46:00 Libby Martinez [facility] EXTRA TUBE LT. BLUE 2024-03-22 15:46:00 Baljit Gayle [facility] POCT GLUCOSE (AUTOMATED) 2024-03-12 04:41:00 VeniceYoav walker [facility] POCT GLUCOSE (AUTOMATED) 2024-03-12 03:45:00 Venice[place]av walker [facility] POCT GLUCOSE (AUTOMATED) 2024-03-12 02:29:00 VeniceYoav walkerm Anthony [facility] CREATINE KINASE 2024-03-12 01:42:00 Dl Millard [facility] TROPONIN I 2024-03-12 01:42:00 Dl Millard [facility] COMP. METABOLIC PANEL ([id number]) 2024-03-12 01:42:00 Dl Millard [facility] CBC WITH DIFF 2024-03-12 01:42:00 Dl Millard [facility] COMP. METABOLIC PANEL ([id number]) 2024-02-10 17:52:00 Singer [facility] CBC WITH DIFF 2024-02-10 17:52:00 David Paul [facility] URINALYSIS 2024-02-09 21:03:00 Tara Ireland [facility] CT HEAD WO CONTRAST 2024-02-09 20:02:00 Tara Ireland [facility] URINALYSIS 2024-02-06 15:15:[address] [facility] XR LUMBAR SPINE 3 VW 2024-02-06 15:00:46 Rolly Muller [facility] CT ABDOMEN PELVIS WO CONTRAST 2024-01-30 18:58:58 Zo Green [facility] COMP. METABOLIC PANEL ([id number]) 2024-01-30 16:35:00 Zo Green [facility] CBC WITH DIFF 2024-01-30 16:35:00 [facility] AND [facility]REATMENT 2024-01-15 03:41:26 Doctor Unassigned, [place] [facility] ASSIGNMENT OF BENEFITS 2024-01-15 03:35:20 Docto r Unassigned, [place] [facility] ASSIGNMENT OF BENEFITS 2021-05-20 22:59:18 Docto r Unassigned, [place] [facility] CONSENT/REFUSAL FOR DIAGNOSIS AND TREATMENT 2021-02-14 21:51:32 Doctor Unassigned, [place] [facility] ASSIGNMENT OF BENEFITS 2021-02-14 21:50:52 Docto r Unassigned, [place] [facility] XR TIBIA FIBULA 2 VW RIGHT 2020-03-12 13:27:36 Chelle Fernandez [facility] XR LUMBAR SPINE 3 VW 2020-02-16 18:44:17 Basim Aranda [facility] ASSIGNMENT OF BENEFITS 2020-02-16 17:58:39 Docto r Unassigned, [place] [facility] COLONOSCOPY (ENDO) 2019-12-30 15:52:18 Joel Aranda [facility] POCT GLUCOSE(AGE >30DAYS) 2019-12-30 13:50:00 Yesenia Pope [facility] DAY SURGERY - ADC 2019-12-30 06:01:00 Doctor Ileana ssigned, [place] [facility] Encounters Start Date/Time End Date/Time Encounter Type Admission Type Attending [facility] Care Facility Care Department Encounter ID Source 2024-04-11 00:00:00 2024-04-11 14:11:19 Patient Outreach Destiny Prajapati [id number] [id number] [id number] [id number] [facility] 2024-04-06 01:32:00 2024-04-06 06:05:00 Emergency X MULUGETA PALMA [facility] ERT [id number] [facility] 2024-04-06 01:32:00 2024-04-06 06:05:00 Emergency Mulugeta Palma [facility] [id number] 350.1.13.10 4.2.7.2.686 [id number] [facility] 2024-04-04 00:00:00 2024-04-04 08:34:06 Patient Outreach [place] [id number] 350.1.13.10 4.2.7.2.686 [id number] [facility] 2024-04-03 09:43:00 2024-04-03 17:45:00 Emergency X NANDO HAGAN JOEYRAFAELYamileth NANDO [facility] ERT [id number] [facility] 2024-04-03 09:43:00 2024-04-03 17:45:00 Emergency Maksimyamileth [facility] [id number] 350.1.13.10 4.2.7.2.686 [id number] [facility] 2024-04-01 00:00:00 2024-04-01 14:18:07 Patient Outreach [place]iny [place] [id number] 350.1.13.10 4.2.7.2.686 [id number] [facility] 2024-03-31 12:38:00 2024-03-31 19:42:00 Emergency X JOHNNY TEE [facility] ERT [id number] [facility] 2024-03-31 12:38:00 2024-03-31 19:42:00 Emergency Johnny Tee [facility] [id number] 350.1.13.10 4.2.7.2.686 [id number] [facility] 2024-03-30 00:00:00 2024-03-30 10:17:48 Patient Outreach PrajapatiDestiny [place] [id number] 350.1.13.10 4.2.7.2.686 [id number] [facility] 2024-03-30 00:00:00 2024-03-30 08:13:15 Patient Outreach Destiny Prajapati [place] [id number] 350.1.13.10 4.2.7.2.686 [id number] [facility] 2024-03-29 14:48:00 2024-03-29 19:06:00 Emergency X KVNG FRANK [facility] [id number] [facility] 2024-03-29 14:48:00 2024-03-29 19:06:00 Emergency Katty Kvng [facility] [id number] 350.1.13.10 4.2.7.2.686 [id number] [facility] 2024-03-29 00:00:00 2024-03-29 14:12:53 Patient Outreach [place] [id number] 350.1.13.10 4.2.7.2.686 [id number] [facility] 2024-03-29 00:00:00 2024-03-29 08:02:10 Patient Outreach Alo Dest[place] [id number] 350.1.13.10 4.2.7.2.686 [id number] [facility] 2024-03-23 00:00:00 2024-03-23 00:00:00 Patient Outreach Nargis Moore 1.2.840.114 350.1.13.10 4.2.7.2.686 [id number] [facility] 2024-03-23 00:00:00 2024-03-23 00:00:00 Patient Outreach Destiny Prajapati 1.2.840.114 350.1.13.10 4.2.7.2.686 [id number] [facility] 2024-03-23 00:00:00 2024-03-23 00:00:00 Patient Outreach Destiny Prajapati 1.2.840.114 350.1.13.10 4.2.7.2.686 [id number] [facility] 2024-03-23 00:00:00 2024-03-23 00:00:00 Patient Outreach Destiny Prajapati 1.2.840.114 350.1.13.10 4.2.7.2.686 [id number] [facility] 2024-03-22 09:57:00 2024-03-22 17:18:00 Emergency X BALJIT GAYLE PAUL [facility] ERT [id number] [facility] 2024-03-22 09:57:00 2024-03-22 17:18:00 [facility] 1.2.840.114 350.1.13.10 4.2.7.2.686 [id number] [facility] 2024-03-11 20:22:00 2024-03-12 00:03:00 Emergency X DL MILLARD [facility] ERT [id number] [facility] 2024-03-11 20:22:00 2024-03-12 00:03:00 Emergency Dl Millard [facility] 1.2.840.114 350.1.13.10 4.2.7.2.686 [id number] [facility] 2024-02-10 11:58:00 2024-02-10 15:10:00 Emergency X DAVID PAUL [facility] ERT [id number] [facility] 2024-02-10 11:58:00 2024-02-10 15:10:00 Emergency David Paul [facility] 1.2.840.114 350.1.13.10 4.2.7.2.686 [id number] [facility] 2024-02-09 14:01:00 2024-02-09 21:19:00 Emergency X TARA IRELAND [facility] ERT [id number] [facility] 2024-02-09 14:01:00 2024-02-09 21:19:00 Emergency BekaTara [facility] 1.2.840.114 350.1.13.10 4.2.7.2.686 [id number] 084 [id number] [facility] 2024-02-06 09:21:00 2024-02-06 11:51:00 Emergency X DESTINY MULLER [facility] ERT [id number] [facility] 2024-02-06 09:21:00 2024-02-06 11:51:00 Emergency Destiny Muller [facility] 1.2.840.114 350.1.13.10 4.2.7.2.686 [id number] [facility] 2024-01-30 10:06:00 2024-01-30 15:02:00 Emergency X DARRENZO KNOWLES [facility] ERT [id number] [facility] 2024-01-30 10:06:00 2024-01-30 15:02:00 Emergency Norma Zo [facility] 1.2.840.114 350.1.13.10 4.2.7.2.686 [id number] 084 [id number] [facility] 2024-01-14 21:21:00 2024-01-14 21:48:00 [facility] ERT [id number] [facility] 2024-01-14 21:21:00 2024-01-14 21:48:00 [facility] 1..840.114 350.1.13.10 4.2.7.2.686 [id number] [id number] [facility] 2024-01-05 06:39:00 2024-01-05 07:57:00 Emergency X LEELA DIAZRA [facility] ERT [id number] [facility] 2024-01-05 06:39:00 2024-01-05 07:57:00 Emergency VelLeelara Woo [facility] 1..840.114 350.1.13.10 4.2.7.2.686 [id number] 084 [id number] [facility] 2022-12-29 13:30:00 2022-12-29 14:30:00 CAV Lorene Stein 2.16.840. [id number]. 4.6.40361 69038 2.16.840.1. 432018.4.6. [id number] [facility] 2022-10-17 00:00:00 2022-10-17 00:00:00 Outpatient [facility] [id number] [facility] 2022-10-17 00:00:00 2022-10-17 00:00:00 Outpatient [facility] [id number] [facility] 2022-09-07 00:00:00 2022-09-07 00:00:00 Outpatient [facility] [id number] [facility] 2022-08-21 00:00:00 2022-08-21 00:00:00 Tl Guzman [facility] 1..840.114 350.1.13.10 4.2.7.2.686 [id number] 044 [id number] [facility] 2022-02-17 00:00:00 2022-02-17 00:00:00 Refpete ScoobychrissyTl huerta [facility] 1.2.840.114 350.1.13.10 4.2.7.2.686 [id number] 044 [id number] [facility] 2021-11-06 10:40:00 2021-11-06 10:40:00 Outpatient R TL ARNADA [facility] [id number] [facility] 2021-10-28 00:00:00 2021-10-28 00:00:00 RefTl Harvey [facility] 1.2.840.114 350.1.13.10 4.2.7.2.686 [id number] 044 [id number] [facility] 2021-10-03 00:00:00 2021-10-03 00:00:00 Refill Tl Aranda [facility] 1.2.840.114 350.1.13.10 4.2.7.2.686 [id number] 044 [id number] [facility] 2021-09-09 00:00:00 2021-09-09 00:00:[address] [facility] 1.2840.114 350.1.13.10 4.2.7.2.686 [id number] [facility] 2021-07-18 00:00:00 2021-07-18 00:00:00 Patient Secure Msg Doctor Unassigned, [place] [facility] 1.2840.114 350.1.13.10 4.2.7.2.686 [id number] [facility] 2021-07-12 00:00:00 2021-07-12 00:00:00 Telephone Tl Aranda [facility] Building 1.2.840.114 350.1.13.10 4.2.7.2.686 [id number] 044 [id number] [facility] 2021-07-10 15:55:33 2021-07-10 15:55:44 Office Visit Tl Aranda [facility] Building 1.2.840.114 350.1.13.10 4.2.7.2.686 [id number] 044 [id number] [facility] 2021-07-10 09:55:19 2021-07-10 11:00:50 Office Visit Tl Aranda [facility] Building 1.2.840.114 350.1.13.10 4.2.7.2.686 [id number] [id number] [facility] 2021-07-10 10:00:00 2021-07-10 10:00:00 Outpatient R TL ARANDA [facility] [id number] [facility] 2021-07-09 00:00:00 2021-07-09 00:00:00 Telephone Tl Aranda [facility] Building 1.2.840.114 350.1.13.10 4.2.7.2.686 [id number] [facility] 2021-06-19 00:00:00 2021-06-19 00:00:00 Refill Tl Aranda [facility] Building 1.2.840.114 350.1.13.10 4.2.7.2.686 [id number] [id number] [facility] 2021-05-20 17:59:38 2021-05-20 18:39:03 Urgent Care Provider, [facility] Lesli Oscar [facility] Office Building One 1.2.840.114 350.1.13.10 4.2.7.2.686 [id number] 044 [id number] [facility] 2021-05-20 18:20:00 2021-05-20 18:20:00 Outpatient R [facility] [id number] [facility] 2021-05-20 00:00:00 2021-05-20 00:00:00 Orders Only Doctor Unassigned, [place] [facility] 1.2840.114 350.1.13.10 4.2.7.2.686 [id number] [id number] [facility] 2021-05-16 00:00:00 2021-05-16 00:00:00 Refill Tl Aranda [facility] Building 1.84.114 350.1.13.10 4.2.7.2.686 [id number] 044 [id number] [facility] 2021-02-14 16:53:57 2021-02-14 17:08:57 Vice President Fixed Income Visit Pob, 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 Tl Aranda [facility] Building 1.84.114 350.1.13.10 4.2.7.2.686 [id number] [facility] 2021-02-14 15:55:11 2021-02-14 16:27:03 Office Visit Tl Aranda [facility] 1.284.114 350.1.13.10 4.2.7.2.686 [id number] 044 [id number] [facility] 2021-02-14 16:00:00 2021-02-14 16:00:00 Outpatient R TL ARANDA [facility] [id number] [facility] 2021-02-14 00:00:00 2021-02-14 00:00:00 Orders Only Doctor Unassigned, [place] [facility] 1.284.114 350.1.13.10 4.2.7.2.686 [id number] [facility] 2021-02-08 00:00:00 2021-02-08 00:00:00 Refill Tl Aranda [facility] Building 1.2.840.114 350.1.13.10 4.2.7.2.686 [id number] 044 [id number] [facility] 2021-01-28 00:00:00 2021-01-28 00:00:00 [facility] 1.2.840.114 350.1.13.10 4.2.7.2.686 [id number] 044 [id number] [facility] 2021-01-22 00:00:00 2021-01-22 00:00:00 Telephone Jendeanna Tl [facility] Building 1.2.840.114 350.1.13.10 4.2.7.2.686 [id number] 044 [id number] [facility] 2021-01-21 00:00:00 2021-01-21 00:00:00 Refill [facility]l [facility] 1.2.840.114 350.1.13.10 4.2.7.2.686 [id number] [id number] [facility] 2020-10-31 13:30:00 2020-10-31 13:30:00 Outpatient R NIMISHA YING [facility] [id number] [facility] 2020-10-09 14:40:00 2020-10-09 14:40:00 Outpatient R TL ARANDA [facility] [id number] [facility] 2020-09-24 09:20:00 2020-09-24 09:20:00 Outpatient R KUNAL JOEL [facility] [id number] [facility] 2020-07-09 09:20:00 2020-07-09 09:20:00 Outpatient R TL ARANDA [facility] [id number] [facility] 2020-07-09 08:17:40 2020-07-09 08:37:40 Telemedici ne Visit Tl Aranda [facility] Building 1.2840.114 350.1.13.10 4.2.7.2.686 [id number] 044 [id number] [facility] 2020-06-28 00:00:00 2020-06-28 00:00:00 Darrell Billings [facility] Building 1.2840.114 350.1.13.10 4.2.7.2.686 [id number] [id number] [facility] 2020-04-19 08:00:00 2020-04-19 08:00:00 Outpatient R TL ARANDA [facility] [id number] [facility] 2020-04-12 09:46:54 2020-04-12 10:06:54 Urgent Care Provider, [facility] Shanice Yossi [facility] Office [facility] 1.284.114 350.1.13.10 4.2.7.2.686 [id number] 044 [id number] [facility] 2020-04-12 10:00:00 2020-04-12 10:00:00 Outpatient R SHANICE YOSSI [facility] [id number] [facility] 2020-04-09 00:00:00 2020-04-09 00:00:00 Telephone Tl Aranda [facility] Building 1.2.840.114 350.1.13.10 4.2.7.2.686 [id number] [id number] [facility] 2020-04-05 00:00:00 2020-04-05 00:00:00 Telephone Tl Aranda [facility] Building 1.2840.114 350.1.13.10 4.2.7.2.686 [id number] 044 [id number] [facility] 2020-03-16 10:02:04 2020-03-16 10:02:51 Beveller Operator Visit Idalia [facility] 1.2.840.114 350.1.13.10 4.2.7.2.686 [id number] [facility] 2020-03-15 15:00:00 2020-03-15 15:00:00 Outpatient R IDALIA [facility] [id number] [facility] 2020-03-14 16:30:00 2020-03-14 16:30:00 Outpatient R DARRELL BECKFORD [facility] [id number] [facility] 2020-03-14 15:42:00 2020-03-14 15:57:00 Telemedici ne Visit Darrell Beckford joaquin [facility] 1.2.840.114 350.1.13.10 4.2.7.2.686 [id number] 044 [id number] [facility] 2020-03-14 00:00:00 2020-03-14 00:00:00 Telephone Tl Aranda [facility] 1.2.840.114 350.1.13.10 4.2.7.2.686 [id number] [facility] 2020-03-12 07:53:07 2020-03-12 08:57:00 Emergency Chelle Fernandez [facility] 1.2.840.114 350.1.13.10 4.2.7.2.686 [id number] [facility] 2020-03-12 07:53:07 2020-03-12 08:57:00 Emergency X CHELLE FERNANDEZ [facility] ERT [id number] [facility] 2020-03-08 15:00:00 2020-03-08 15:00:00 Outpatient R IDALIA, [facility] [id number] [facility] 2020-02-28 13:00:00 2020-02-28 13:00:00 Outpatient R TL ARANDA [facility] [id number] [facility] 2020-02-28 07:16:07 2020-02-28 07:56:07 Telemedici ne Visit Abigail [facility] Building 1.2840.114 350.1.13.10 4.2.7.2.686 [id number] 044 [id number] [facility] 2020-02-23 00:00:00 2020-02-23 00:00:00 Telephone dawood [facility] 1.2.114 350.1.13.10 4.2.7.2.686 [id number] [facility] 2020-02-16 12:59:15 2020-02-16 23:59:00 Outpatient R TL ARANDA [facility] [id number] [facility] 2020-02-16 12:59:00 2020-02-16 23:59:00 Hospital Encounter Abigail [facility] 1.0.114 350.1.13.10 4.2.7.2.686 [id number] [facility] 2020-02-16 00:00:00 2020-02-16 00:00:00 Orders Only Doctor Unassigned, [place] [facility] 1.2840.114 350.1.13.10 4.2.7.2.686 [id number] [facility] 2020-02-16 00:00:00 2020-02-16 00:00:00 Telephone Abigail [facility] Building 1.2.84.114 350.1.13.10 4.2.7.2.686 [id number] 044 [id number] [facility] 2020-01-18 07:23:58 2020-01-18 08:32:20 Office Visit Tl Aranda [facility] 1.2.840.114 350.1.13.10 4.2.7.2.686 [id number] [id number] [facility] 2020-01-18 07:20:00 2020-01-18 07:20:00 Outpatient R TL ARANDA [facility] [id number] [facility] 2020-01-18 00:00:00 2020-01-18 00:00:00 Letter (Out) Doctor Unassigned, [place] [facility] 1.2840.114 350.1.13.10 4.2.7.2.686 [id number] 044 [id number] [facility] 2020-01-07 00:00:00 2020-01-07 00:00:00 Natividad Corrigan [facility] 1.2.840.114 350.1.13.10 4.2.7.2.686 [id number] [facility] 2020-01-04 00:00:00 2020-01-04 00:00:00 Telephone Tl Aranda [facility] 1.2.840.114 350.1.13.10 4.2.7.2.686 [id number] [id number] [facility] 2019-12-30 07:35:00 2019-12-30 11:49:00 Hospital Encounter Glo Finn [facility] 1.2840.114 350.1.13.10 4.2.7.2.686 [id number] [facility] 2019-12-30 07:35:00 2019-12-30 11:49:00 Outpatient R GLO FINN [facility] [id number] [facility] 2019-12-30 00:00:00 2019-12-30 00:00:00 Orders Only Doctor Unassigned, [place] [facility] 1..840.114 350.1.13.10 4.2.7.2.686 [id number] [facility] 2019-12-19 08:02:28 2019-12-19 09:08:19 Office Visit Kendall Campa [facility] [place] [facility] 1..840.114 350.1.13.10 4.2.7.2.686 [id number] [facility] 2019-12-01 15:15:00 2019-12-01 15:15:00 Outpatient R JOCELYN GREER [facility] [id number] [facility] 2019-10-26 14:45:00 2019-10-26 15:36:20 Outpatient NIMISHA WATKINS [facility] [id number] [facility] 2019-06-10 10:30:00 2019-06-10 12:20:48 Outpatient R TL ARANDA [facility] [id number] [facility] 2019-05-30 14:20:00 2019-05-30 17:18:22 Outpatient R DARRELL MAXWELL III [facility] [id number] [facility] 2019-05-24 08:45:00 2019-05-24 08:45:00 Outpatient MARIAMA REAL [facility] [id number] [facility] 2019-04-26 08:30:00 2019-04-26 09:03:15 Outpatient MARIAMA REAL [facility] [id number] [facility] 2019-01-12 15:30:00 2019-01-12 16:04:35 Outpatient NATIVIDAD GLASS [facility] [id number] [facility] Results Test Description Test Time Test Comments Results Result Co mments Source [facility] 09:35:12* Test Item Value Reference Range Interpretation Comme nts POCT GLU (test code = 7462534308) 349 mg/dL 70-110 H Lab Interpretation (test cod e = 47015-6) Abnormal [facility] GLUCOSE (AUTOMATED)2024-04-06 08:34:06* Test Item Value Reference Range Interpretation Comme [facility] POCT GLU (test code = 9094453610) 299 mg/dL 70-110 H Lab Interpretation (test cod e = 82838-0) Abnormal [facility] GLUCOSE (AUTOMATED)2024-04-06 07:58:40* Test Item Value Reference Range Interpretation Comme [facility] POCT GLU (test code = 2050024291) 446 mg/dL 70-110 H Lab Interpretation (test cod e = 70587-3) Abnormal [facility]. Metabolic Panel (24526)2024-04-06 07:47:06* Test Item Value Reference Range Interpretation Comme [facility] NA (test code = 9506083128) 126 mmol/L 135-145 L K (test code = 6808482947) 4.4 mmol/L 3.5-5.0 CL (test code = 1951823555) 93 mmol/L 98-108 L CO2 TOTAL (test code = 5198116651) 27 mmol/L 23-31 AGAP (test code = 0386635888) 6 2-16 BUN (test code = 7019446204) 21 mg/dL 7-23 GLUCOSE (test code = 6262026856) 518 mg/dL 70-110 HH CREATININE (test code = 2160-0) 1.08 mg/dL 0.60-1.25 TOTAL BILI (test code = 6346544493) 0.7 mg/dL 0.1-1.1 CALCIUM (test code = 9071777331) 8.1 mg/dL 8.6-10.6 L T PROTEIN (test code = 4221947838) 6.6 g/dL 6.3-8.2 ALBUMIN (test code = 5381356655) 3.5 g/dL 3.5-5.0 ALK PHOS (test code = 5854148457) 160 U/L 34-122 H ALTv (test code = 1742-6) 15 U/L 5-50 AST(SGOT) (test code = 4702238098) 33 U/L 13-40 eGFR (test code = 56417-2) 73.8 mL/min/1.73m2 CKD-EPI eGFR (2020). Assuming creatinine has been stable day-to-day for at least three months, the eGFR indicates Category G2 (60 - 89 mL/min/1.73 m2) Lab Interpretation (test code = 31347-9) Abnormal [facility] 07:44:19* Test Item Value Reference Range Interpretation Comme nts MAGNESIUM (test code = 4831874873) 1.6 mg/dL 1.7-2.4 L Lab Interpretation (test cod e = 39241-5) Abnormal [facility]2024-04-06 07:36:55* Test Item Value Reference Range Interpretation Comme nts POCT GLU (test code = 2981975957) 476 mg/dL 70-110 HH Lab Interpretation (test cod e = 31458-9) Abnormal [facility] with [id number] 07:23:19* Test Item Value Reference Range Interpretation Comme nts WBC (test code = 6690-2) 11.97 4.20-10.70 H RBC (test code = 789-8) 3.82 4.26-5.52 L HGB (test code = 718-7) 11.7 g/dL 12.2-16.4 L HCT (test code = 4544-3) 33.8 % 38.4-49.3 L MCV (test code = 787-2) 88.5 fL 81.7-95.6 MCH (test code = 785-6) 30.6 pg 26.1-32.7 MCHC (test code = 786-4) 34.6 g/dL 31.2-35.0 RDW-SD (test code = 86796-6) 39.8 fL 38.5-51.6 RDW-CV (test code = 788-0) 12.2 % 12.1-15.4 PLT (test code = 777-3) 251 150-328 MPV (test code = 41795-4) 10.5 fL 9.8-13.0 NRBC/100 WBC (test code = 2222062672) 0.0 0.0-10.0 NRBC x10^3 (test code = 8258206449) See_Comment [Automated [employer]] The system which generated this result transmitted reference range: 10*3/?L. The reference range was not used to interpret this result as normal/abnormal. GRAN MAT (NEUT) % (test code = 770-8) 76.0 % IMM GRAN % (test code = 8667997069) 0.90 % LYMPH % (test code = 736-9) 11.5 % MONO % (test code = 5905-5) 10.5 % EOS % (test code = 713-8) 0.8 % BASO % (test code = 706-2) 0.3 % GRAN MAT x10^3(ANC) (test code = 6853536256) 9.08 10*3/uL 1.99-6.95 H IMM GRAN x10^3 (test code = 7644394670) 0.11 10*3/uL 0.00-0.06 H LYMPH x10^3 (test code = 731-0) 1.38 10*3/uL 1.09-3.23 MONO x10^3 (test code = 742-7) 1.26 10*3/uL 0.36-1.02 H EOS x10^3 (test code = 711-2) 0.10 10*3/uL 0.06-0.53 BASO x10^3 (test code = 704-7) 0.04 10*3/uL 0.01-0.09 Lab Interpretation (test code = 41304-7) [facility]2024-[facility]-06 06:45:34* Test Item Value Reference Range Interpretation Comme nts POCT GLU (test code = 5535012560) 495 mg/dL 70-110 HH Lab Interpretation (test cod e = 74029-5) Abnormal [facility] HEAD WO [id number] 20:17:39EXAMS: CT HEAD WO CONTRAST, CT CERVICAL SPINE WO CONTRAST HISTORY: 69 years-old Male; Provided indication: Head trauma, minor (Age >=65y) . TECHNIQUE: Axial CT of the head and cervical spine was performed andreconstructed at 5 mm intervals. Coronal and sagittal reformatted imageswere generated. COMPARISON: CT head dated 03/31/2024 FINDINGS: HEAD: The ventricles and sulci are prominent but withinnormal limits for thepatient's age. No midline shift or pathological extra-axial fluidcollection ispresent. The basal cisterns are unremarkable. No acute intraparenchymal hemorrhage or significant mass effect isvisualized. Patchy hypoattenuation the biconvexity deep white matter isnonspecific and likely represents ischemic small vessel change.. Thegray-white matter differentiation is preserved. ? The mastoid air cells and paranasal air sinuses are clear. The calvariumand central skull base areunremarkable. CERVICAL SPINE:Normal cervical lordosis is preserved. The vertebral bodies are normalinheight and alignment. No acute fracture or traumatic malalignment. Thecraniocervical junction is intact. Moderate multilevel degenerative changes in form of the marginalosteophytosis, endplate sclerosis, disc space narrowing and facetarthropathy, most pronounced at C5-C6 and C6-C7, unchanged.[facility] CERVICAL SPINE WO [id number] 20:17:39EXAMS: CT HEAD WO CONTRAST, CT CERVICAL SPINE WO CONTRAST HISTORY: 69 years-old Male; Provided indication: Head trauma, minor (Age >=65y) . TECHNIQUE: Axial CT of the head and cervical spine was pe rformed andreconstructed at 5 mm intervals. Coronal and sagittal reformatted imageswere generated. COMPARISON: CT head dated 03/31/2024 FINDINGS: HEAD: The ventricles and sulci are prominent but withinnormal limits for thepatient's age. No midline shift or pathological extra-axial fluidcollection ispresent. The basal cisterns are unremarkable. No acute intraparenchymal hemorrhage or significant mass effect isvisualized. Patchy hypoattenuation the biconvexity deep white matter isnonspecific and likely represents ischemic small vessel change.. Thegray-white matter differentiation is preserved. ? The mastoid air cells and paranasal air sinuses are clear. The calvariumand central skull base areunremarkable. CERVICAL SPINE:Normal cervical lordosis is preserved. The vertebral bodies are normalinheight and alignment. No acute fracture or traumatic malalignment. Thecraniocervical junction is intact. Moderate multilevel degenerative changes in form of the marginalosteophytosis, endplate sclerosis, disc space narrowing and facetarthropathy, most pronounced at C5-C6 and C6-C7, unchanged.[facility] HospitalAmmonia, [id number] 19:25:25* Test Item Value Reference Range Interpretation Comme nts AMMONIA (test code = 3543175678) 9-33 L Lab Interpretation (test cod e = 66998-0) Abnormal [facility]+ VW [id number] 17:22:17XR FOOT 3+ VW RIGHT 04/03/2024 10:15 AM History: r/o fx/osteo midfoot Comparison: None Findings: 3 views of the right foot are received for interpretation. There is no fracture or dislocation. Soft tissues are unremarkable. Thereare no radiopaque foreign bodies. Joint spaces are preserved.[facility] 1 [id number] 17:18:12XR CHEST 1 VW HISTORY: ?r/o CHF/infiltrate COMPARISON: March 22, 2024 FINDINGS: The patient is slightly rotated on the film. ?There is noinfiltrate or pleural effusion. ?The cardiomediastinal silhouette is withinnormal limits. ?There is no pneumothorax.[facility] HospitalTROPONIN [id number] 16:54:12* Test Item Value Reference Range Interpretation Comme nts TROPONIN I (test code = 5616373685) 0.006 ng/mL <=0.034 RJ (test code = RJ) Reference (Normal) Range (defined by the 99th percentile reference limit): <= 0.034 ng/mL Note: Cardiac troponin begins to rise 3-4 hours after the onset of ischemia. Repeat in 4-6 hours if the sample was drawn within 3-4 hours of the onset of the symptom and found normal. Diagnosis of myocardial injury is made with acute changes in cTn concentrations with at least one serial sample above the 99th percentile upper reference limit (URL), taken together with the patient's clinical presentation. Biotin has been reported to cause a negative bias, interpret results relative to patient's use of biotin. Lab Interpretation (test code = 06840-9) Normal [facility]MINAL [id number] 16:54:12* Test Item Value Reference Range Interpretation Comme nts NT-proBNP (test code = 68305-1) 302 pg/mL <=125 RJ (test code = RJ) Result Indeterminate-Consid er causes of NT-proBNP elevation other than Heart failure such as acute coronary syndrome, pulmonary embolism, pulmonary hypertension, sepsis, stroke, and renal dysfunction. Lab Interpretation (test code = 18385-5) [facility]ETHANOL[facility] 16:53:42 ALCOHOL<10mg/dL04/03/2024 11:53 AM CDTUT LABORATORY SERVICESToxic Greater than or equal to 80 mg/dL. NOTE: Whole blood values are approximately 10% to 15% lower than serum and plasma.[facility] HospitalCreatine Kinase 2024-04-03 16:43:13* Test Item Value Reference Range Interpretation Comme nts CK (test code = 0121637398) 35 U/L 33-194 Lab Interpretation (test cod e = 68831-4) Normal [facility] HospitalPhosphorus2024-05-12 16:43:13* Test Item Value Reference Range Interpretation Comme nts PHOSPHORUS (test code = 1498348971) 3.6 mg/dL 2.5-5.0 Lab Interpretation (test cod e = 72795-9) Normal [facility] HospitalCOMP. METABOLIC PANEL (38160)2024-04-03 16:43:12* Test Item Value Reference Range Interpretation Comme nts NA (test code = 1765813568) 132 mmol/L 135-145 L K (test code = 2032206531) 4.4 mmol/L 3.5-5.0 Slight hemolysis CL (test code = 9956270777) 97 mmol/L 98-108 L CO2 TOTAL (test code = 3967046084) 29 mmol/L 23-31 AGAP (test code = 5760080943) 6 2-16 BUN (test code = 0042965581) 17 mg/dL 7-23 Slight hemolysis GLUCOSE (test code = 2151946681) 353 mg/dL 70-110 H CREATININE (test code = 2160-0) 0.89 mg/dL 0.60-1.25 TOTAL BILI (test code = 1370602524) 0.9 mg/dL 0.1-1.1 CALCIUM (test code = 9259817328) 9.0 mg/dL 8.6-10.6 T PROTEIN (test code = 3910536935) 6.6 g/dL 6.3-8.2 ALBUMIN (test code = 8252860318) 3.7 g/dL 3.5-5.0 ALK PHOS (test code = 2126289347) 118 U/L 34-122 Slight hemolysis ALTv (test code = 1742-6) 14 U/L 5-50 AST(SGOT) (test code = 8366334873) 19 U/L 13-40 Slight hemolysis eGFR (test code = 95708-9) 92.2 mL/min/1.73m2 CKD-EPI eGFR (2020). Assuming creatinine has been stable day-to-day for at least three months, the eGFR indicates Category G1 (>= 90 mL/min/1.73 m2) Lab Interpretation (test code = 15196-5) [facility]normal [facility] HospitalMagnesium2024-05-12 16:43:12* Test Item Value Reference Range Interpretation Comme nts MAGNESIUM (test code = 3045844009) 1.6 mg/dL 1.7-2.4 L Lab Interpretation (test cod e = 61486-2) Abnormal [facility] WITH [id number] 16:35:09* Test Item Value Reference Range Interpretation Comme nts WBC (test code = 6690-2) 11.53 4.20-10.70 H RBC (test code = 789-8) 4.17 4.26-5.52 L HGB (test code = 718-7) 12.5 g/dL 12.2-16.4 HCT (test code = 4544-3) 36.8 % 38.4-49.3 L MCV (test code = 787-2) 88.2 fL 81.7-95.6 MCH (test code = 785-6) 30.0 pg 26.1-32.7 MCHC (test code = 786-4) 34.0 g/dL 31.2-35.0 RDW-SD (test code = 17041-5) 39.7 fL 38.5-51.6 RDW-CV (test code = 788-0) 12.3 % 12.1-15.4 PLT (test code = 777-3) 258 150-328 MPV (test code = 24786-0) 10.0 fL 9.8-13.0 NRBC/100 WBC (test code = 0253516833) 0.0 0.0-10.0 NRBC x10^3 (test code = 0816343971) See_Comment [Automated messa ge] The system which generated this result transmitted reference range: 10*3/?L. The reference range was not used to interpret this result as normal/abnormal. GRAN MAT (NEUT) % (test code = 770-8) 81.2 % IMM GRAN % (test code = 3543651664) 0.70 % LYMPH % (test code = 736-9) 11.3 % MONO % (test code = 5905-5) 6.5 % EOS % (test code = 713-8) 0.1 % BASO % (test code = 706-2) 0.2 % GRAN MAT x10^3(ANC) (test code = 7147450892) 9.37 10*3/uL 1.99-6.95 H IMM GRAN x10^3 (test code = 8816256819) 0.08 10*3/uL 0.00-0.06 H LYMPH x10^3 (test code = 731-0) 1.30 10*3/uL 1.09-3.23 MONO x10^3 (test code = 742-7) 0.75 10*3/uL 0.36-1.02 EOS x10^3 (test code = 711-2) 0.06-0.53 L BASO x10^3 (test code = 704-7) 0.01-0.09 Lab Interpretation (test code = 86188-6) Abnormal [facility] HospitalLanvic Acid Whole Miuwu2436-53-20 16:30:22* Test Item Value Reference Range Interpretation Comme [facility] LACTIC ACID (test code = 0427329813) 1.63 mmol/L 0.50-2.20 QUES Lab Interpretation (test cod e = 94116-7) Normal [facility] GLUCOSE(AGE >30DAYS)2024-04-03 15:46:00* Test Item Value Reference Range Interpretation Comme nts POCT Glu (age>30days) (test code = 3342) 305 mg/dL 70-110 A Lab Interpretation (test cod e = 66062-6) Abnormal [facility] GLUCOSE (AUTOMATED)2024-04-03 15:44:37* Test Item Value Reference Range Interpretation Comme nts POCT GLU (test code = 4074133780) 305 mg/dL 70-110 H Lab Interpretation (test cod e = 18417-2) Abnormal [facility] GLUCOSE (AUTOMATED)2024-04-01 00:05:36* Test Item Value Reference Range Interpretation Comme nts POCT GLU (test code = 9897591780) 215 mg/dL 70-110 H Lab Interpretation (test cod e = 96261-3) Abnormal [facility] GLUCOSE (AUTOMATED)2024-03-31 23:20:38* Test Item Value Reference Range Interpretation Comme nts POCT GLU (test code = 1892000705) 468 mg/dL 70-110 HH Lab Interpretation (test cod e = 53874-9) Abnormal [facility] HEAD WO [id number] 19:45:11EXAM: CT HEAD WO CONTRAST, CT CERVICAL SPINE WO CONTRAST HISTORY: 69 years-old Male; Head trauma, minor. COMPARISON: CT head 02/09/2024 TECHNIQUE: ?CT imaging of the head and cervical spine spine wereobtainedwithout IV contrast. Coronal and sagittal reformats were constructed. FINDINGS: HEAD: Diffuse mild enlargement of the ventricles for age likely representscentral atrophy, but cannot exclude mild communicating hydrocephalus. Thebasal cisterns are unremarkable. No intracranial abnormality such as hemorrhage, edema, mass, mass-effect,midline shift, or extra axial fluid collection is appreciated. Periventricular hypodensities are nonspecific but likely represent sequelaeof microvascular ischemic disease. The vazquez-white matter differentiation ispreserved. The mastoid air cells and paranasal air sinuses are clear. The calvariumand central skull base are unremarkable. CERVICAL SPINE: Mild straightening of the normal cervical lordosis. The vertebral bodiesare normal in height and in normal alignment. Multilevel degenerativechanges with disc height loss most notable at C5 through C7. No facetfracture or subluxation is present. The craniocervical junction is intact.The prevertebral softtissues are unremarkable. The visualized cervical soft tissues and visualized lung apices areunremarkable.[facility] CERVICAL SPINE WO [id number] 19:45:11EXAM: CT HEAD WO CONTRAST, CT CERVICAL SPINE WO CONTRAST HISTORY: 69 years-old Male; Head trauma, minor. COMPARISON: CT head 02/09/2024 TECHNIQUE: ?CT imaging of the head and cervical spine spine wereobtainedwithout IV contrast. Coronal and sagittal reformats were constructed. FINDINGS: HEAD: Diffuse mild enlargement of the ventricles for age likely representscentral atrophy, but cannot exclude mild communicating hydrocephalus. Thebasal cisterns are unremarkable. No intracranial abnormality such as hemorrhage, edema, mass, mass-effect,midline shift, or extra axial fluid collection is appreciated. Periventricular hypodensities are nonspecific but likely represent sequelaeof microvascular ischemic disease. The vazquez-white matter differentiation ispreserved. The mastoid air cells and paranasal air sinuses are clear. The calvariumand central skull base are unremarkable. CERVICAL SPINE: Mild straightening of the normal cervical lordosis. The vertebral bodiesare normal in height and in normal alignment. Multilevel degenerativechanges with disc height loss most notable at C5 through C7. No facetfracture or subluxation is present. The craniocervical junction is intact.The prevertebral softtissues are unremarkable. The visualized cervical soft tissues and visualized lung apices areunremarkable.[facility] HospitalXR KNEE 3 VW [id number] 22:53:33EXAM: XR KNEE 3 VW RIGHT HISTORY: 69 years-old Male; Provided indication: Right knee pain andworsens low back pain s/p pushed by a door and mechanical fall earliertoday. . COMPARISON: None FINDINGS: Radiographs of the right knee demonstrate no acute fracture or traumaticdislocation. The alignment is maintained. Tricompartmental osteophytosis,subchondral sclerosis, joint space narrowing are present. Patellarenthesophytes are seen. ?Bulky osseous bodies are present behind the knee.Focal sclerosisof the proximal tibia metadiaphysis may be posttraumatic. [facility] HospitalGlycosylated Hemoglobin (A1C)2024-03-22 22:08:29* Test Item Value Reference Range Interpretation Comme nts HGB A1C (test code = 4548-4) 12.1 % 4.0-5.7 H RJ (test code = RJ) Reference RangesNormal: <5.7%Prediabetes: 5.7 - 6.4%Diabetes: > 6.5% Lab Interpretation (test code = 77184-7) Abnormal [facility] HospitalN-TERMINAL [id number] 17:06:26* Test Item Value Reference Range Interpretation Comme nts NT-proBNP (test code = 30403-1) 108 pg/mL <=125 Lab Interpretation (test cod e = 51232-4) Normal [facility] HospitalTROPONIN [id number] 17:06:26* Test Item Value Reference Range Interpretation Comme nts TROPONIN I (test code = 8625214656) 0.007 ng/mL <=0.034 RJ (test code = RJ) Reference (Normal) Range (defined by the 99th percentile reference limit): <= 0.034 ng/mL Note: Cardiac troponin begins to rise 3-4 hours after the onset of ischemia. Repeat in 4-6 hours if the sample was drawn within 3-4 hours of the onset of the symptom and found normal. Diagnosis of myocardial injury is made with acute changes in cTn concentrations with at least one serial sample above the 99th percentile upper reference limit (URL), taken together with the patient's clinical presentation. Biotin has been reported to cause a negative bias, interpret results relative to patient's use of biotin. Lab Interpretation (test code = 03730-1) Normal [facility] HospitalHEPATIC FUNCTION PANEL (04532) (ALB,T.PRO,BILI T,BU/BC,ALT,AST,ALK PHOS)2024-03-22 16:57:07* Test Item Value Reference Range Interpretation Comme nts TOTAL BILI (test code = 0710125412) 0.6 mg/dL 0.1-1.1 BILI UNCON (test code = 7326431159) 0.1 mg/dL 0.1-1.1 BILI CONJ (test code = 3659115080) 0.0 mg/dL 0.0-0.3 T PROTEIN (test code = 1318493898) 6.7 g/dL 6.3-8.2 ALBUMIN (test code = 0581037814) 3.7 g/dL 3.5-5.0 ALK PHOS (test code = 1685982621) 102 U/L 34-122 ALTv (test code = 1742-6) 18 U/L 5-50 AST(SGOT) (test code = 9229679160) 24 U/L 13-40 Lab Interpretation (test cod e = 08928-8) Normal [facility] HospitalBASI METABOLIC PANEL (NA, K, CL, CO2, GLUCOSE, BUN, CREATININE, CA)2024-03-22 16:57:07* Test Item Value Reference Range Interpretation Comme nts NA (test code = 9643489853) 137 mmol/L 135-145 K (test code = 3136662346) 3.8 mmol/L 3.5-5.0 CL (test code = 1010974708) 106 mmol/L 98-108 CO2 TOTAL (test code = 8282399977) 24 mmol/L 23-31 AGAP (test code = 8380398435) 7 2-16 BUN (test code = 2490333452) 12 mg/dL 7-23 GLUCOSE (test code = 6121200192) 132 mg/dL 70-110 H CREATININE (test code = 2160-0) 0.97 mg/dL 0.60-1.25 CALCIUM (test code = 0246990623) 8.8 mg/dL 8.6-10.6 eGFR (test code = 77441-3) 84.0 mL/min/1.73m2 CKD-EPI eGFR (2020). Assuming creatinine has been stable day-to-day for at least three months, the eGFR indicates Category G2 (60 - 89 mL/min/1.73 m2) Lab Interpretation (test code = 36573-0) Abnormal [facility] HospitalCreatine Mglcyl2951-72-73 16:57:07* Test Item Value Reference Range Interpretation Comme nts CK (test code = 2564040927) 51 U/L 33-194 Lab Interpretation (test cod e = 52606-7) Normal [facility] HospitalCB WITH [id number] 16:38:44* Test Item Value Reference Range Interpretation Comme nts WBC (test code = 6690-2) 8.28 4.20-10.70 RBC (test code = 789-8) 4.28 4.26-5.52 HGB (test code = 718-7) 13.0 g/dL 12.2-16.4 HCT (test code = 4544-3) 38.0 % 38.4-49.3 L MCV (test code = 787-2) 88.8 fL 81.7-95.6 MCH (test code = 785-6) 30.4 pg 26.1-32.7 MCHC (test code = 786-4) 34.2 g/dL 31.2-35.0 RDW-SD (test code = 42490-5) 42.8 fL 38.5-51.6 RDW-CV (test code = 788-0) 13.2 % 12.1-15.4 PLT (test code = 777-3) 259 150-328 MPV (test code = 69793-0) 10.8 fL 9.8-13.0 NRBC/100 WBC (test code = 4582537087) 0.0 0.0-10.0 NRBC x10^3 (test code = 4996686678) See_Comment [Automated messa ge] The system which generated this result transmitted reference range: 10*3/?L. The reference range was not used to interpret this result as normal/abnormal. GRAN MAT (NEUT) % (test code = 770-8) 72.5 % IMM GRAN % (test code = 4119229053) 1.10 % LYMPH % (test code = 736-9) 13.2 % MONO % (test code = 5905-5) 11.4 % EOS % (test code = 713-8) 1.3 % BASO % (test code = 706-2) 0.5 % GRAN MAT x10^3(ANC) (test code = 8730615446) 6.01 10*3/uL 1.99-6.95 IMM GRAN x10^3 (test code = 4405534988) 0.09 10*3/uL 0.00-0.06 H LYMPH x10^3 (test code = 731-0) 1.09 10*3/uL 1.09-3.23 MONO x10^3 (test code = 742-7) 0.94 10*3/uL 0.36-1.02 EOS x10^3 (test code = 711-2) 0.11 10*3/uL 0.06-0.53 BASO x10^3 (test code = 704-7) 0.04 10*3/uL 0.01-0.09 Lab Interpretation (test code = 59408-9) Abnormal [facility] HospitalXR CHEST 2 [id number] 16:14:04EXAM: XR CHEST 2 VW 03/22/2024 11:01 AM HISTORY: 69 years-old Male with fluid overload . TECHNIQUE: PA and lateral chest radiographs. COMPARISON: 02/14/2019. FINDINGS: Lines and tubes: None. Cardiomediastinal: The cardiomediastinal silhouette is unremarkable. Lungs and pleura: The lungs are clear. Nofocal consolidation,pneumothorax, or pleural effusion is seen. Included osseous structures show no acute abnormality. Degenerative changeinvolving the spine and AC joints is present.[facility] GLUCOSE (AUTOMATED) 2024-03-12 04:43:11* Test Item Value Reference Range Interpretation Comme nts POCT GLU (test code = 0832618575) 213 mg/dL 70-110 H Lab Interpretation (test cod e = 23347-0) Abnormal [facility] GLUCOSE (AUTOMATED)2024-03-12 03:47:48* Test Item Value Reference Range Interpretation Comme nts POCT GLU (test code = 6521232964) 258 mg/dL 70-110 H Lab Interpretation (test cod e = 57101-6) Abnormal [facility] GLUCOSE (AUTOMATED)2024-03-12 02:29:49* Test Item Value Reference Range Interpretation Comme nts POCT GLU (test code = 1448679757) 579 mg/dL 70-110 HH Lab Interpretation (test cod e = 99422-3) Abnormal [facility]. Metabolic Panel (69860)2024-03-12 02:17:22* Test Item Value Reference Range Interpretation Comme nts NA (test code = 6659990951) 130 mmol/L 135-145 L K (test code = 0874201909) 4.4 mmol/L 3.5-5.0 CL (test code = 8153002596) 98 mmol/L 98-108 CO2 TOTAL (test code = 7010573382) 26 mmol/L 23-31 AGAP (test code = 5451843852) 6 2-16 BUN (test code = 9714845633) 24 mg/dL 7-23 H GLUCOSE (test code = 2908716919) 614 mg/dL 70-110 HH CREATININE (test code = 2160-0) 1.21 mg/dL 0.60-1.25 TOTAL BILI (test code = 1069035270) 0.4 mg/dL 0.1-1.1 CALCIUM (test code = 3784266561) 8.6 mg/dL 8.6-10.6 T PROTEIN (test code = 9486157372) 6.1 g/dL 6.3-8.2 L ALBUMIN (test code = 3703638336) 3.5 g/dL 3.5-5.0 ALK PHOS (test code = 4345527458) 107 U/L 34-122 ALTv (test code = 1742-6) 17 U/L 5-50 AST(SGOT) (test code = 3245871605) 16 U/L 13-40 eGFR (test code = 36778-0) 64.4 mL/min/1.73m2 CKD-EPI eGFR (2020). Assuming creatinine has been stable day-to-day for at least three months, the eGFR indicates Category G2 (60 - 89 mL/min/1.73 m2) Lab Interpretation (test code = 40853-1) Abnormal [facility] HospitalTroponin [id number] 02:15:00* Test Item Value Reference Range Interpretation Comme nts TROPONIN I (test code = 4201742967) 0.006 ng/mL <=0.034 RJ (test code = RJ) Reference (Normal) Range (defined by the 99th percentile reference limit): <= 0.034 ng/mL Note: Cardiac troponin begins to rise 3-4 hours after the onset of ischemia. Repeat in 4-6 hours if the sample was drawn within 3-4 hours of the onset of the symptom and found normal. Diagnosis of myocardial injury is made with acute changes in cTn concentrations with at least one serial sample above the 99th percentile upper reference limit (URL), taken together with the patient's clinical presentation. Biotin has been reported to cause a negative bias, interpret results relative to patient's use of biotin. Lab Interpretation (test code = 35503-8) Normal [facility] HospitalCreatine Ckragl3785-50-84 02:11:59* Test Item Value Reference Range Interpretation Comme nts CK (test code = 5379999052) 32 U/L 33-194 L Lab Interpretation (test cod e = 15859-7) Abnormal [facility] HospitalCb with [id number] 01:59:02* Test Item Value Reference Range Interpretation Comme nts WBC (test code = 6690-2) 7.43 4.20-10.70 RBC (test code = 789-8) 4.12 4.26-5.52 L HGB (test code = 718-7) 12.3 g/dL 12.2-16.4 HCT (test code = 4544-3) 36.0 % 38.4-49.3 L MCV (test code = 787-2) 87.4 fL 81.7-95.6 MCH (test code = 785-6) 29.9 pg 26.1-32.7 MCHC (test code = 786-4) 34.2 g/dL 31.2-35.0 RDW-SD (test code = 81515-7) 41.0 fL 38.5-51.6 RDW-CV (test code = 788-0) 12.9 % 12.1-15.4 PLT (test code = 777-3) 231 150-328 MPV (test code = 17299-6) 10.5 fL 9.8-13.0 NRBC/100 WBC (test code = 8209660953) 0.0 0.0-10.0 NRBC x10^3 (test code = 6293945135) See_Comment [Automated messa ge] The system which generated this result transmitted reference range: 10*3/?L. The reference range was not used to interpret this result as normal/abnormal. GRAN MAT (NEUT) % (test code = 770-8) 68.1 % IMM GRAN % (test code = 6169194679) 0.80 % LYMPH % (test code = 736-9) 20.3 % MONO % (test code = 5905-5) 9.3 % EOS % (test code = 713-8) 1.1 % BASO % (test code = 706-2) 0.4 % GRAN MAT x10^3(ANC) (test code = 0089628445) 5.06 10*3/uL 1.99-6.95 IMM GRAN x10^3 (test code = 9603663637) 0.06 10*3/uL 0.00-0.06 LYMPH x10^3 (test code = 731-0) 1.51 10*3/uL 1.09-3.23 MONO x10^3 (test code = 742-7) 0.69 10*3/uL 0.36-1.02 EOS x10^3 (test code = 711-2) 0.08 10*3/uL 0.06-0.53 BASO x10^3 (test code = 704-7) 0.03 10*3/uL 0.01-0.09 Lab Interpretation (test code = 87923-2) Abnormal [facility]. Metabolic Panel (57654)2024-02-10 18:23:57* Test Item Value Reference Range Interpretation Comme nts NA (test code = 9077366745) 135 mmol/L 135-145 K (test code = 3142477973) 4.1 mmol/L 3.5-5.0 CL (test code = 1148062556) 100 mmol/L 98-108 CO2 TOTAL (test code = 5788990359) 27 mmol/L 23-31 AGAP (test code = 2158501294) 8 2-16 BUN (test code = 1654152254) 26 mg/dL 7-23 H GLUCOSE (test code = 8231015463) 209 mg/dL 70-110 H CREATININE (test code = 2160-0) 1.09 mg/dL 0.60-1.25 TOTAL BILI (test code = 0649917654) 1.0 mg/dL 0.1-1.1 CALCIUM (test code = 4877299345) 8.9 mg/dL 8.6-10.6 T PROTEIN (test code = 9074078129) 7.0 g/dL 6.3-8.2 ALBUMIN (test code = 7949837836) 3.5 g/dL 3.5-5.0 ALK PHOS (test code = 8194177428) 122 U/L 34-122 ALTv (test code = 1742-6) 30 U/L 5-50 AST(SGOT) (test code = 8567820526) 34 U/L 13-40 eGFR (test code = 02990-6) 73.0 mL/min/1.73m2 CKD-EPI eGFR (2020). Assuming creatinine has been stable day-to-day for at least three months, the eGFR indicates Category G2 (60 - 89 mL/min/1.73 m2) Lab Interpretation (test code = 40488-4) Abnormal [facility] with [id number] 18:13:28* Test Item Value Reference Range Interpretation [...] 33.9 g/dL 31.2-35.0 RDW-SD (test code = 19695-5) 42.0 fL 38.5-51.6 RDW-CV (test code = 788-0) 12.9 % 12.1-15.4 PLT (test code = 777-3) 287 150-328 MPV (test code = 56290-0) 9.4 fL 9.8-13.0 L NRBC/100 WBC (test code = 5236231200) 0.0 0.0-10.0 NRBC x10^3 (test code = 8057417569) See_Comment [Automated messa ge] The system which generated this result transmitted reference range: 10*3/?L. The reference range was not used to interpret this result as normal/abnormal. GRAN MAT (NEUT) % (test code = 770-8) 77.5 % IMM GRAN % (test code = 4253138934) 1.10 % LYMPH % (test code = 736-9) 11.1 % MONO % (test code = 5905-5) 9.1 % EOS % (test code = 713-8) 0.9 % BASO % (test code = 706-2) 0.3 % GRAN MAT x10^3(ANC) (test code = 9734769865) 8.71 10*3/uL 1.99-6.95 H IMM GRAN x10^3 (test code = 4769041956) 0.12 10*3/uL 0.00-0.06 H LYMPH x10^3 (test code = 731-0) 1.25 10*3/uL 1.09-3.23 MONO x10^3 (test code = 742-7) 1.02 10*3/uL 0.36-1.02 EOS x10^3 (test code = 711-2) 0.10 10*3/uL 0.06-0.53 BASO x10^3 (test code = 704-7) 0.03 10*3/uL 0.01-0.09 Lab Interpretation (test code = 64910-6) [facility]normal [facility] HospitalCT [facility] WO [id number] 20:09:29FULL RESULT: Examination: CT HEAD WO CONTRAST on 02/09/2024 2:43 PM Clinical Indication: Dizziness Comparison: None Technique: Noncontrast imaging was obtained from base to vertex. Findings: The sulciand ventricles were unremarkable. There was no evidencefor mass lesion, hemorrhage, or underlying ed michelle. There is mild whitematter hypodensity compatible with microvascular ischemic change. There were no bony, sinonasal or skull base lesions.[facility]XR LUMBAR SP[facility] 3 [id number] 15:24:42EXAM: XR LUMBAR SPINE 3 VW HISTORY: [...] innormal alignment. The intervertebral disc spaces are preserved.[facility] HospitalCT ABDOMEN PELVIS WO [id number] 19:42:33HISTORY: ?flank pain with right side swelling [...] Mostcompatible with omental infarct. No acute bony abnormality.[facility]. Metabolic Panel (14476)2024-01-30 17:18:01* Test Item Value Reference Range Interpretation Comme nts NA (test code = 8046024704) 139 mmol/L 135-145 K (test code = 9519363090) 3.6 mmol/L 3.5-5.0 CL (test code = 6444514578) 107 mmol/L 98-108 CO2 TOTAL (test code = 4307300292) 27 mmol/L 23-31 AGAP (test code = 7640956706) 5 2-16 BUN (test code = 2547484627) 27 mg/dL 7-23 H GLUCOSE (test code = 6154669700) 118 mg/dL 70-110 H CREATININE (test code = 2160-0) 0.99 mg/dL 0.60-1.25 TOTAL BILI (test code = 4508974129) 0.4 mg/dL 0.1-1.1 CALCIUM (test code = 7235913835) 8.6 mg/dL 8.6-10.6 T PROTEIN (test code = 4271041640) 6.8 g/dL 6.3-8.2 ALBUMIN (test code = 1329072035) 3.6 g/dL 3.5-5.0 ALK PHOS (test code = 4957743279) 105 U/L 34-122 ALTv (test code = 1742-6) 23 U/L 5-50 AST(SGOT) (test code = 7886412372) 27 U/L 13-40 eGFR (test code = 57003-7) 81.9 mL/min/1.73m2 CKD-EPI eGFR (2020). Assuming creatinine has been stable day-to-day for at least three months, the eGFR indicates Category G2 (60 - 89 mL/min/1.73 m2) Lab Interpretation (test code = 91482-6) Abnormal [facility] with [id number] 16:52:14* Test Item Value Reference Range Interpretation [...] 33.3 g/dL 31.2-35.0 RDW-SD (test code = 32442-4) 42.9 fL 38.5-51.6 RDW-CV (test code = 788-0) 13.2 % 12.1-15.4 PLT (test code = 777-3) 290 150-328 MPV (test code = 38192-2) 9.9 fL 9.8-13.0 NRBC/100 WBC (test code = 7571989401) 0.0 0.0-10.0 NRBC x10^3 (test code = 8952700508) See_Comment [Automated messa ge] The system which generated this result transmitted reference range: 10*3/?L. The reference range was not used to interpret this result as normal/abnormal. GRAN MAT (NEUT) % (test code = 770-8) 74.8 % IMM GRAN % (test code = 9973251746) 0.90 % LYMPH % (test code = 736-9) 14.7 % MONO % (test code = 5905-5) 7.8 % EOS % (test code = 713-8) 1.2 % BASO % (test code = 706-2) 0.6 % GRAN MAT x10^3(ANC) (test code = 1306726323) 7.72 10*3/uL 1.99-6.95 H IMM GRAN x10^3 (test code = 2239468459) 0.09 10*3/uL 0.00-0.06 H LYMPH x10^3 (test code = 731-0) 1.52 10*3/uL 1.09-3.23 MONO x10^3 (test code = 742-7) 0.81 10*3/uL 0.36-1.02 EOS x10^3 (test code = 711-2) 0.12 10*3/uL 0.06-0.53 BASO x10^3 (test code = 704-7) 0.06 10*3/uL 0.01-0.09 Lab Interpretation (test code = 02494-6) [facility] [id number] 19:03:44 HISTORY: ?Low back pain. FINDINGS: AP, [...] degenerative disc disease at L2-L3, L3-L4, L4-L5. [facility], Radiant Results Inft User - 02/16/2020 2:04 [...] ofmild degenerative disc disease at L2-L3, L3-L4, L4-L5.[facility] [id number] 13:50:00* Test Item Value Reference Range Interpretation Comme nts POCT Glu (age>30days) (test code = 3342) 181 mg/dL 70-110 A Lab Interpretation (test cod e = 49765-0) Abnormal [facility] Notes Date/Time Note Provider Source 2024-04-06 05:25:21 [id number]/ikf6U/4qrxZweKE+FXW 0+/Ym Q3avKFJ7F/wvcy5PngP2248-53-87B85:25:21Formatt ing of this note might be different from the original.Pt given printed and verbal discharge instructions regarding foot ulcer, diabetic mononeuropathy, homeless, bilateral leg edema.Encouraged hydration,Prescriptions provided:Discussed ibuprofen and to take with food to avoid GI distress.Discussed antibiotic therapy and to take until all completed unless adverse reaction occurs - if occurs, discontinue medication and follow up with pcp/seek medical attentionPt verbalized understanding of instructions, pt awake alert oriented, resp reg unlabored, skin w/d, color appropriate for race, moves all ext well,pt encouraged to follow up with pcp.Advised to seek medical attention for new/prolonged/worsening of symptoms,Symptoms improvedNo adverse reaction to meds given in ER noted upon dischargePIV d'cd, dressing to site, catheter in tact.Awake, alert oriented, resp reg unlabored, skin w/d, pt leaving by wheelchair, in no apparent distress. 59077-7Virdultzf department YwcnDG4823-25-69I07:28:43[facility] NoteTXT1.2.840.406613.1.13.104.2.7.2.575361|2 [id number] for patient vrys77307-3JonwXIKGENSZREHYsjjjxnvh C-CDA narrative textUT27 Robertson [id number] HEALTHAMTBGPIDVLQJU4210-88-00X32:28:431.2.840.96273 0.1.72.3.15|1.2.840.061978.1.13.104.2.7.2.727 [id number] [facility] 2024-04-06 01:49:35 vHQxnVVJs++dEXRZrMn65REBFCelh7hunldD99hM CQn+F +7ORN0NLYsuAd245guu7355-27-78P52:49:35Formatt ing of this note might be different from the original.[facility] on right foot and elevated blood sugar.EMS reports pt's blood glucose was 580 69413-4Buzxskdeb department Triage nobjOU6972-60-44K04:52:38[facility] Triage noteTXT1.2.840.276241.1.13.104.2.7.2.124778|2 [id number] for patient msdk64544-8Frqnwpzch department NoteLNNARRATIVEFormatted C-CDA narrative [id number] Lopez RN[address] FccaWygacnbrhFoorphuubFUCZ9436636433DWHNCNMBO QFXIPWYZLQULK2922-17-62J45:52:381.2.840.75993 0.1.72.3.15|1.2.840.168825.1.13.104.2.7.2.727 [id number] Milli Lopez RN [facility] 2024-04-06 01:31:00 rxP8C0aimxcChiwl5PwHIi+uHugwa1fpt6d8UeSA FgEkt 9ROs/nNM4RZ6KKoWfx+7355-41-64B87:31:00Formatt ing of this note is different from the original.Images from the original note were not included.[facility] Emergency Department NotePatient Name: Raj Mackey of : 1955 69 year old maleTreatment Room: AZ6/LY1Qbrkaur Record Number: [id number] [facility] [place] Physician: PATIENT DOES NOT HAVE A PCPPatient Escorted by: Self [9]Mode of Arrival: EMS - [facility] ([place]) [43]EMS Treatment Prior to ED Arrival: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 ESTIMATOR 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: monitor car operator;FSBG;IVF;Saline lockTravel and Exposure Screening:SymptomsDoes patient have any of these symptoms?: (not recorded)Exposure ScreeningHas patient had contact with someone with a communicable disease in the last month?: (not recorded)Diseases exposed to:: (not recorded)Is Patient ?: (not recorded)Exposure Date: (not recorded)Chief Complaint:Chief ComplaintPatient presents withFoot PainHistory of Present Illness:History provided by: PatientLanguage reconsignment clerk used: NoFoot PainLocation: FootTime since incident: 3 daysInjury: noFoot location: R foot and L footPain details:Quality: Tingling and burningRadiates to: Does not radiateSeverity: ModerateOnset quality: GradualDuration: 4 daysTiming: ConstantProgression: UnchangedChronicity: ChronicDislocation: noForeign body present: No foreign bodiesTetanus status: UnknownPrior injury to area: NoRelieved by: None triedWorsened by: Bearing weight and activityIneffective treatments: None triedAssociated symptoms: numbness and swellingAssociated symptoms: no fatigue and no feverRisk factors: no concern for non-accidental trauma, no frequent fractures, no known bone disorder, no obesity and no recent illnessRisk factors comment: Diabetic patient not compliant with medicationsPast Medical History/Immunizations:Past Medical History:Diagnosis DateAcute midline low back pain without sciatica 01/18/2020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) 10/12/2019CataractOS ONLYCellulitis of foot, left 04/12/2020DiabetesDiabetic eye exam 12/01/2019Added automatically from request for surgery [id number] of both legs 02/28/2020Erectile dysfunction, unspecified erectile dysfunction type 02/28/2020Essential hypertension 02/28/2020HTN (hypertension)HyperlipidemiaObesity (BMI 30-39.9) 03/17/2019Psoriasiform dermatitis 1Stroke 2017Type 2 diabetes mellitus with vascular disease 10/12/2019Upper respiratory tract infection, unspecified type 10/12/2019Tetanus received in last 5 years: UnknownChildhood immunizations: Bo-dq-xeonNauqnouom:No Known AllergiesPast Social History:Tobacco UseNever smoked or used smokeless tobacco.Alcohol UseNo.Drug UseNo.Past Surgical History:Past Surgical History:Procedure Laterality DateCOLONOSCOPY N/A 12/30/2019Surgeon: Glo Finn MD; [facility]LAMELLAR BilateralKNEE ILYAZLDPOYZ0914QPRWTZCXSYKJHJBE KERATOPLASTYPHACOEMULSIFICATION OF CATARACT WITH INTRAOCULAR LENS IMPLANT Right 03/17/2019Surgeon: Virgil Martinez MD; [facility]Review [facility] Systems:Review of SystemsConstitutional: Negative for activity change, appetite change, chills, diaphoresis, fatigue and fever.HENT: Negative for congestion, ear discharge, ear pain, rhinorrhea, sore throat and trouble swallowing.Eyes: Negative for photophobia, pain, discharge and redness.Respiratory: Negative for cough, chest tightness, shortness of breath and wheezing.Cardiovascular: Negative for chest pain, palpitations and leg swelling.Gastrointestinal: Negative for abdominal distention, abdominal pain, blood in stool, constipation, nausea and vomiting.Genitourinary: Negative for dysuria, urgency, polyuria, frequency, hematuria and flank pain.Musculoskeletal: Negative for arthralgias, joint swelling, myalgias and neck stiffness.Skin: Positive for wound. Negative for color change and rash.Neurological: Positive for numbness. Negative for dizziness, seizures, syncope, facial asymmetry, weakness, light-headedness and headaches.Psychiatric/Behavioral: Negative for agitation, confusion, hallucinations and self-injury. The patient is not nervous/anxious.Hematological: Negative for adenopathy and cold intolerance. Does not bruise/bleed easily.Endocrine: Negative for cold intolerance, polydipsia and polyuria.Physical Exam:ED Triage Vitals [04/06/24 0152]Weight 99.8 kg (220 lb)Actual or estimated Estimated by patient/family reportHeight 1.778 m (5' 10")BP (!) 159/88Pulse 88Resp 18Temp 37.3 ?C (99.1 ?F)Temp source OralSpO2 98 %Measured on Room airPhysical ExamVitals and nursing note reviewed.Constitutional:General: He is awake. He is not in acute distress.Appearance: He is well-developed and overweight. He is not ill-appearing, toxic-appearing or diaphoretic.Comments: dishevelHENT:Head: Normocephalic and atraumatic.Right Ear: External ear normal.Left Ear: External ear normal.Nose: Nose normal.Mouth/Throat:Pharynx: No oropharyngeal exudate.Eyes:General: No scleral icterus.Right eye: No discharge.Left eye: No discharge.Conjunctiva/sclera: Conjunctivae normal.Pupils: Pupils are equal, round, and reactive to light.Neck:Thyroid: No thyromegaly.Vascular: No JVD.Trachea: No tracheal deviation.Cardiovascular:Rate and Rhythm: Normal rate and regular rhythm.Pulses:Dorsalis pedis pulses are 2+ on the right side and 2+ on the left side.Posterior tibial pulses are 2+ on the right side.Heart sounds: Normal heart sounds. No murmur heard.No friction rub. No gallop.Pulmonary:Effort: Pulmonary effort is normal. No respiratory distress.Breath sounds: Normal breath sounds. No stridor. No wheezing or rales.Chest:Chest wall: No tenderness.Abdominal:General: Bowel sounds are normal. There is no distension.Palpations: Abdomen is soft. There is no mass.Tenderness: There is no abdominal tenderness. There is no guarding or rebound.Musculoskeletal:General: No tenderness or deformity. Normal range of motion.Cervical back: Normal range of motion and neck supple.Right lower le+ Pitting Edema present.Left lower le+ Pitting Edema present.Feet:Feet:Right foot:Skin integrity: Ulcer, skin breakdown, callus and dry skin present. No erythema or warmth.Toenail Condition: Right toenails are abnormally thick. Fungal disease present.Left foot:Skin integrity: Callus and dry skin present. No ulcer, blister, skin breakdown, erythema or warmth.Toenail Condition: Left toenails are abnormally thick. Fungal disease present.Lymphadenopathy:Cervical: No cervical adenopathy.Skin:General: Skin is warm and dry.Coloration: Skin is not pale.Findings: No erythema or rash.Neurological:Mental Status: He is alert and oriented to person, place, and time.Cranial Nerves: No cranial nerve deficit.Motor: No abnormal muscle tone.Coordination: Coordination normal.Deep Tendon Reflexes: Reflexes are normal and symmetric. Reflexes normal.Psychiatric:Behavior: Behavior normal.Thought Content: Thought content normal.Judgment: Judgment normal.Radiology:No orders to displayLab Results:Lab ResultsPOCT GLUCOSE (AUTOMATED) - AbnormalResult Value Ref RangePOCT GLU 495 (*) 70 - 110 mg/dLCBC WITH DIFF - AbnormalWBC 11.97 (*) 4.20 - 10.70 10*3/?LRBC 3.82 (*) 4.26 - 5.52 10*6/?LHGB 11.7 (*) 12.2 - 16.4 g/dLHCT 33.8 (*) 38.4 - 49.3 %MCV 88.5 81.7 - 95.6 fLMCH 30.6 26.1 - 32.7 pgMCHC 34.6 31.2 - 35.0 g/dLRDW-SD 39.8 38.5 - 51.6 fLRDW-CV 12.2 12.1 - 15.4 %PLT 251 150 - 328 10*3/?LMPV 10.5 9.8 - 13.0 fLNRBC/100 WBC 0.0 0.0 - 10.0 /100 WBCsNRBC x10^3 <0.01 10*3/?LGRAN MAT (NEUT) % 76.0 %IMM GRAN % 0.90 %LYMPH % 11.5 %MONO % 10.5 %EOS % 0.8 %BASO % 0.3 %GRAN MAT x10^3(ANC) 9.08 (*) 1.99 - 6.95 10*3/uLIMM GRAN x10^3 0.11 (*) 0.00 - 0.06 10*3/uLLYMPH x10^3 1.38 1.09 - 3.23 10*3/uLMONO x10^3 1.26 (*) 0.36 - 1.02 10*3/uLEOS x10^3 0.10 0.06 - 0.53 10*3/uLBASO x10^3 0.04 0.01 - 0.09 10*3/uLCOMP. METABOLIC PANEL (88678) - AbnormalNA 126 (*) 135 - 145 mmol/LK 4.4 3.5 - 5.0 mmol/LCL 93 (*) 98 - 108 mmol/LCO2 TOTAL 27 23 - 31 mmol/LAGAP 6 2 - 16BUN 21 7 - 23 mg/dLGLUCOSE 518 (*) 70 - 110 mg/dLCREATININE 1.08 0.60 - 1.25 mg/dLTOTAL BILI 0.7 0.1 - 1.1 mg/dLCALCIUM 8.1 (*) 8.6 - 10.6 mg/Clarence PROTEIN 6.6 6.3 - 8.2 g/dLALBUMIN 3.5 3.5 - 5.0 g/dLALK PHOS 160 (*) 34 - 122 U/LALTv 15 5 - 50 U/LAST(SGOT) 33 13 - 40 U/LeGFR 73.8 mL/min/1.55f0OFHOJOQQU - AbnormalMAGNESIUM 1.6 (*) 1.7 - 2.4 mg/dLURINALYSIS - AbnormalAPPEARANCE Clear ClearCOLOR Straw (*) YellowPH 5.0 4.8 - 8.0SP GRAVITY 1.026 1.003 - 1.030GLU U QUAL 500 mg/dL (*) NormalBLOOD Negative NegativeKETONES 5 mg/dL (*) NegativePROTEIN Negative NegativeUROBILIN Normal NormalBILIRUBIN Negative NegativeNITRITE Negative NegativeLEUK THEODORE Negative NegativeRBC/HPF <1 0 - 3 HPFWBC/HPF 0 0 - 5 HPFBACTERIA Negative NegativeMUCOUS Slight (*) Negative LPFSQ EPITH <1 HPFPOCT GLUCOSE (AUTOMATED) - AbnormalPOCT GLU 476 (*) 70 - 110 mg/dLPOCT GLUCOSE (AUTOMATED) - AbnormalPOCT GLU 446 (*) 70 - 110 mg/dLPOCT GLUCOSE (AUTOMATED) - AbnormalPOCT GLU 299 (*) 70 - 110 mg/dLEKG:If EKG completed, see Procedure Note.Orders and Treatments:Orders Placed This EncounterProceduresPOCT GLUCOSE (AUTOMATED)Cbc with DiffComp. Metabolic Panel (27043)MagnesiumUrinalysisPOCT GLUCOSE (AUTOMATED)POCT GLUCOSE (AUTOMATED)POCT GLUCOSE (AUTOMATED)Orders Placed This EncounterMedicationsgabapentin (NEURONTIN) capsule 300 mgfurosemide (LASIX) injection 40 mgDISCONTD: ceFAZolin (ANCEF) injection 1,000 mgceFAZolin (ANCEF) 1,000 mg in NaCl 0.9% (NS) 100 mL MINI-BAGinsulin regular human (HUMULIN R) injection 10 Unitsmagnesium sulfate in water 2 gram/50 mL (4 %) infusion 2 gthiamine (VITAMIN B1) injection 100 mgergocalciferol (vitamin d2) (CALCIFEROL) capsule 50,000 UnitsDISCONTD: insulin regular human (HUMULIN R) injection 10 Unitsinsulin regular human (HUMULIN R) injection 5 Unitsgabapentin (NEURONTIN) 100 mg capsulefurosemide 20 mg tabletcephALEXin 500 mg capsulemupirocin 2 % ointmentFirst Provider Eval:ED EventsDate/Time Event User Uspjolmq91/15/24140 Medical Screening Begins MULUGETA PALMA MD --04/06/24140 First Provider Evaluation MULUGETA PALMA MD --ED COURSEPatient's condition improved with the treatment provided in the ED, will DC Home with instructions to [facility] within 3 days for wound check.Diagnosis/Impression as of 04/06/24 0349Foot ulcer due to secondary DMDiabetic mononeuropathy associated with diabetes mellitus due to underlying conditionNon compliance with medical treatmentHomelessnessBilateral leg edemaProcedures:ProceduresMDM:Medical Decision MakingProblems Addressed:Diabetic mononeuropathy associated with diabetes mellitus due to underlying condition: chronic illness or injury with exacerbation, progression, or side effects of treatmentFoot ulcer due to secondary DM: self-limited or minor problemHomelessness: chronic illness or injuryNon compliance with medical treatment: chronic illness or injury with exacerbation, progression, or side effects of treatmentAmount and/or Complexity of Data ReviewedIndependent Historian: EMSDetails: Provided all the details about his initial presentationExternal Data Reviewed: labs, radiology and notes.Details: From previous visits reviewed and compared with current dataLabs: ordered. Decision-making details documented in ED Course.RiskOTC drugs.Prescription drug management.Diagnosis or treatment significantly limited by social determinants of health.Flowsheet Documentation:Scoring Tools:No data recordedDisposition/Condition:ED DispositionED DispositionDisch - HomeConditionStableComment--Discharge Medications:Patient's MedicationsSTART taking these medicationsCEPHALEXIN 500 MG CAPSULE Take 1 capsule by mouth 4 (four) times daily.FUROSEMIDE 20 MG TABLET Take 1 tablet by mouth every morning.GABAPENTIN (NEURONTIN) 100 MG CAPSULE Take 1 capsule by mouth in the morning and 1 capsule at noon and 1 capsule in the evening.MUPIROCIN 2 % OINTMENT Apply to area(s) 3 (three) times daily.CONTINUE taking these medications which have NOT CHANGEDALCOHOL SWABS (BD SINGLE USE SWABS REGULAR) PADM Apply to area(s) daily. Monitor Blood Glucose dailyASPIRIN 81 MG EC TABLET Take 1 tablet by mouth daily.BLOOD SUGAR DIAGNOSTIC (TRUE METRIX GLUCOSE TEST STRIP) STRIP Monitor Blood Glucose dailyDICYCLOMINE 20 MG TABLET Take 1 tablet by mouth 4 (four) times daily as needed for Abdominal pain.DOXYCYCLINE HYCLATE 100 MG CAPSULE Take 1 capsule by mouth in the morning and 1 capsule in the evening.FUROSEMIDE 20 MG TABLET Take 1 tablet by mouth daily.INSULIN NEEDLES, DISPOSABLE, (PHUC PEN NEEDLE) 32 GAUGE X 5/32" NDLE Use as directedINSULIN NPH (HUMULIN N NPH U-100 INSULIN) 100 UNIT/ML INJECTION INJECT 35 UNITS SUBCUTANEOUSLY EVERY MORNING AND EVENING. Office visit needed for further refills.INSULIN SYRINGE-NEEDLE U-100 1 ML 27 GAUGE X 1/2" SYRG Use as directedLANCETS (TRUEPLUS LANCETS) 33 GAUGE [facility] Monitor Blood Glucose dailyLISINOPRIL-HYDROCHLOROTHIAZIDE 10-12.5 MG PER TABLET Take 1 tablet by mouth once dailyMETFORMIN 1,000 MG TABLET Take 1 tablet by mouth 2 (two) times daily with meals.[facility] CENTERCELLANEOUS MEDICAL SUPPLY [facility] E11.8: dispense Insulin Syringe 31 gauge brand [...] taking these medicationsNo medications on fileFollow-up:Electronically signed by:Mulugeta Palma MD04/06/24 0351 75374-1Howonfhyf Emergency department EfdmUM0160-23-42H05:51:44Physician Emergency department NoteTXT1.2.840.450562.1.13.104.2.7.2.862991|2 [id number] for patient nlvj48677-8Phuyycphw department NoteLNNARRATIVEFormatted C-CDA narrative text[address] Uk[id number] YTARWSFRUWLYN1106-28-79N83:51:441.2.840.16468 0.1.72.3.15|1.2.840.000740.1.13.104.2.7.2.727 [id number] [facility] 2024-04-03 17:51:06 xV+DkiEi0KXnRNwGUDbuJhUMsFUiBccgG+0weuSI FlzUT lGX9zx5gMyCIBrP2zyQ7147-34-37V60:51:06Formatt ing of this note might be different from the original.Pt given printed and verbal discharge instructions regarding fall and gait. Prescriptions provided. Discussed antibiotic therapy and to take until all completed unless adverse reaction occurs - if occurs, discontinue medication and follow up with pcp/seek medical attention. Pt verbalized understanding of instructions and encouraged to follow up with pcp. Advised to seek medical attention for new/prolonged/worsening of symptoms. No adverse reaction to medications given in ER noted upon discharge. PIV discontinued with catheter intact.Pt is AAOx4. Discharge VS are stable. RR E/U. Skin WDL. Pt leaving in wheelchair by ED staff to go home via taxi voucher. NAD noted upon discharge and exit from ED. 82721-4Pvjojdfpx department ClpxIV1566-82-77D64:53:17Emergency department NoteTXT1.2.840.310244.1.13.104.2.7.2.986019|2 [id number] for patient tcbo79087-8NgynZCCRXAUPMGDHijoowvvy C-CDA narrative textUT[address] Swv[id number] REXNWQLWMWNTC0423-35-79X83:53:171.2.840.44011 0.1.72.3.15|1.2.840.455079.1.13.104.2.7.2.727 [id number] [facility] 2024-04-03 17:21:48 4hgCyceH/eYvJaAJV3U6szGIZkGvziDik/Z+mDEz otvVd bOcN72xnddQX4ecWYSq5747-25-52K20:21:48Formatt ing of this note might be different from the original.Images from the original note were not included.ER Weekend Senior Data Mining Analyst note:04/03/2024 5:21 PMMet with the patient in room. Patient Aox4. [place] [address]. The patient was provided with cab voucher # [id number] [employer] [phone] Erasto PhD, BOWLING BALL GRADER, [facility] CENTERCare Management- Social WorkDepartment of Care Management[address] [place] [address]T [phone] [email or web address] [email or web address] department DpwsLH1198-98-21J09:26:10[facility] NoteTXT1.2.840.144009.1.13.104.2.7.2.292647|2 [id number] for patient kryu98315-8Jdrsfyhpa department NoteLNNARRATIVEFormatted C-CDA narrative [id number] Sebastian [id number] MQWZRXSQAXUTV0552-38-30H39:26:101.2.840.44789 0.1.72.3.15|1.2.840.682268.1.13.104.2.7.2.727 [id number] Richard Maurer [facility] 2024-04-03 16:49:23 2BsXscZZIQR7LfNZSdYkTc4LhPyufwF8fquiG+R+ K7EzL so+mlilEM4I5MoofreP1390-90-18V06:49:23Formatt ing of this note might be different from the original.Dc after fluids 86438-7Bebstidnc department ZiqtHW7498-84-59R09:49:28[facility] NoteTXT1.2.840.980607.1.13.104.2.7.2.334848|2 [id number] for patient rcos64435-1NmwfJSRSFBNDJMYOoaruletl C-CDA narrative text[id number] MDJOBZTTCNJYC8746-52-06X24:49:281.2.840.13809 0.1.72.3.15|1.2.840.810373.1.13.104.2.7.2.727 [id number] [facility] 2024-04-03 16:45:00 w4Ouy+2X1Nm1kGwbmN48fn3AoWx1Hlc3xtb6PyCU KQChM 1QsiwzNLBc+3NLfPvcJ6859-01-64W06:45:00Formatt ing of this note might be different from the original.PT much more awake and alert. Pt provided with taxi voucher, food tray given. 82092-3Smbcgnrqg department FshcWO9475-78-20Q92:51:02[facility] NoteTXT1.2.840.977072.1.13.104.2.7.2.384750|2 [id number] for patient oenk25682-5TqxvAOEWAXKEVANYscaoxwlr C-CDA narrative [id number] TFVQVQIKQXVVG4100-01-08B41:51:021.2.840.41189 0.1.72.3.15|1.2.840.567777.1.13.104.2.7.2.727 [id number] [facility] 2024-04-03 15:18:54 UxJ8ywalkxVFfkauDC+/7kOrunRWB1uiLruVrBnL lvuH1 +AiEWyvcoCfmo1UeQ+W4273-27-32M80:18:54Formatt ing of this note might be different from the original.Orthostatics3:19 PMLying: BP: 158/88 P: 87Sitting: BP: 130/77 P: 86Standing: BP: 126/71 P: 82 83523-7Wjbbycarl department MafpFA2225-41-87T44:19:39[facility] department NoteTXT1.2.840.636292.1.13.104.2.7.2.620546|2 [id number] for patient ueqs30247-7HxwkJEWBTVUNELYXnwobtxjb C-CDA narrative [id number] VEFKJJHQXXHUK6025-89-13E26:19:391.2.840.74052 0.1.72.3.15|1.2.840.256219.1.13.104.2.7.2.727 [id number] [facility] 2024-04-03 14:51:50 hszC9kBYHmYWyC4Eih95Gjqs50URGaukztiWBOnA C51/d U+v5UmnI4nGcT9aoinN9702-63-54U61:51:50Formatt ing of this note might be different from the original.Images from the original note were not included.ER Weekend Senior Data Mining Analyst note:04/03/2024 2:51 PMSW met with the patient at the bedside. Initially, the patient was drowsy and unable to answer most questions. However, he expressed readiness to move to a personal senior care and was willing to pay for it. RENEE contacted Ms. Weiss from [facility] ( ) and Madhavi Abraham ( ), who explained the financial requirements for staying at their personal care homes. They said he needed to pay a bit upfront and use some of his social security for the home.RENEE also spoke with Royer from [facility] and faxed clinicals for a pending Medicaid bed. Later, RENEE talked to Pan from [facility] about the referral made on 03/22/2024. Pan mentioned that they removed him from their admission list due to his failure to answer their call. She visited the patient and said they can't initiate preauthorization until they receive PT/OT evaluation and confirmation regarding his placement.RENEE discussed these options with the patient again when he was more awake. However, the patient disagreed with the plan for a personal senior care, stating he receives around $900 in social security benefits (contradicting his earlier statement of $1200 to $1400) and did not want to pay for his stay.He expressed a preference for going to a custodial. RENEE contacted Grover, [employer] of the [facility], to secure a bed and discussed this with the patient. The patient agreed to go to the [facility] custodial. RENEE informed him about a meeting with [facility] social media intern Destiny Prajapati Thursday morning. The patient expressed unawareness of the meeting, so SW requested him to answer the phone when P SW calls. SW also emailed [facility] social media intern Destiny Prajapati regarding the situation, seeking her assistance.Richard Maurer PhD, BOWLING BALL GRADER, [facility]ENTERCare Management- Social WorkDepartment of Care ManagementThe [address]jenifer Munoz [place]ier, RUPINDER [address] [phone] [email or web address] [email or web address] department XqemBR3366-29-72H60:31:43[facility] department NoteTXT1.2.840.178009.1.13.104.2.7.2.388707|2 [id number] for patient vhec38330-0Pjqnbezlo department NoteLNNARRATIVEFormatted C-CDA narrative textUT[address] In[id number] HCYXYUMBOAGHE2050-75-47R52:31:431.2.840.37789 0.1.72.3.15|1.2.840.365230.1.13.104.2.7.2.727 [id number] [facility] 2024-04-03 09:48:46 SWuv6Kghd9CdI4axk7qjmeOQn2LP+iLeMUIlvmAs c6Vqo OVIAPinplmB1rEVTgqk5574-39-89C97:48:46Formatt ing of this note might be different from the original.Pt to ED c/o falls that have been occurring over past few weeks. Pt seen here 03/31 for same issue. Pt reports falling asleep and then hitting head- causing abrasion to L forehead. Pt has chronic gait issues, myalgia, hx of DMII, denies use of blood thinners. VSS. RR e/u. NAD. A/Ox4. Pt placed on VS monitor. Bed locked in lowest position. Call light within reach. 19712-1Htvqgeuox department RsgsQQ8808-14-33L95:57:43[facility] NoteTXT1.2.840.657731.1.13.104.2.7.2.123444|2 [id number] for patient vrth53718-5JjtrHANAMZGGEZGOlscljevo C-CDA narrative text[address] Ve[id number] XTHQDHEZXRWMO9559-59-05G26:57:431.2.840.03796 0.1.72.3.15|1.2.840.803308.1.13.104.2.7.2.727 [id number] [facility] 2024-04-03 09:40:55 18Fyu6hyDGGjeEx6gpD/K5NRq2dfhjSh7cfVZmh8 eboQh pX581E40kr0IyZgt2fy8680-82-58R22:40:55Formatt ing of this note might be different from the original.Raj Morales is a 69 year old male presents to ED triage with chief compliant of falls. EMS states that he has had multiple falls today, patient has a small abrasions to L forehead.- blood thinners. AAOx4. Skin warm and dry. VSS. RR E/U. NAD noted.Roomed for eval 94857-9Ezgaazihj department Triage aolbWS8739-34-87N35:43:19[facility] Triage noteTXT1.2.840.754166.1.13.104.2.7.2.419998|2 [id number] for patient vedv68701-6Nkdtqgfge department NoteLNNARRATIVEFormatted C-CDA narrative [id number] HUSSE[address] Pv[id number] JVDVJPYGVZAPM4322-93-96Q96:43:191.2.840.49604 0.1.72.3.15|1.2.840.866576.1.13.104.2.7.2.727 [id number] Parvin Chilo José RN [facility] 2024-04-03 09:39:00 bKiuFITchUviLyTVBjZqFbKN4ZxgRU18u9Yc7oXp AO36U PsSopt7vMjjxYBVARnO4955-26-67U90:39:00Associa donny Order(s): EKG-12 Lead ROUTINE ONCEPre-Procedure Diagnose(s): Fall, initial encounter; Injury of head, initial encounterPost-Procedure Diagnose(s): Fall, initial encounter; Injury of head, initial encounter Images from the original note were not included.[facility] Emergency Department NotePatient Name: Raj Mackey of : 1955 69 year old maleTreatment Room: [address] [place] [address] Record Number: [id number] Care Physician: PATIENT DOES NOT HAVE A PCPPatient Escorted by: Self [9]Mode of Arrival: EMS - GEMS [30]EMS Treatment Prior to ED Arrival:Travel and Exposure Screening:SymptomsDoes patient have any of these symptoms?: (not recorded)Exposure ScreeningHas patient had contact with someone with a communicable disease in the last month?: (not recorded)Diseases exposed to:: (not recorded)Is Patient ?: (not recorded)Exposure Date: (not recorded)Chief Complaint:Chief ComplaintPatient presents with FallHistory of Present Illness:69 male with history of diabetes, hypertension, CVA with no residual weakness but problems with balance and coordination, undomiciled, comes in status post multiple falls, states he fell twice today, states he feels weak and tired. Patient has abrasion on his forehead, states his last tetanus was more than 5 years ago. Denies smoking, intermittent drinker but states he has not drank in a long time, denies any drug use. Denies any chest pain or shortness of breath, patient is complaining of pain in his right foot. No abdominal pain no nausea vomiting or diarrhea states he does feel like his hands and feet are swollen which is not his baseline. Patient has been seen here multiple times this week for falls and weakness. 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) 10/12/2019 CataractOS ONLY Cellulitis of foot, left 04/12/2020 Diabetes Diabetic eye exam 12/01/2019Added automatically from request for surgery [id number] Dyslipidemia Edema of both legs 02/28/2020 Erectile dysfunction, unspecified erectile dysfunction type 02/28/2020 Essential hypertension 02/28/2020 HTN (hypertension) Hyperlipidemia Obesity (BMI 30-39.9) 03/17/2019 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 Stroke 2017 Type 2 diabetes mellitus with vascular disease 10/12/2019 Upper respiratory tract infection, unspecified type 10/12/2019Allergies:No Known AllergiesPast Social History:Tobacco UseNever smoked or used smokeless tobacco.Alcohol UseNo.Drug UseNo.Past Surgical History:Past Surgical History:Procedure Laterality Date COLONOSCOPY N/A 12/30/2019Surgeon: Glo Finn MD; Location: [facility] OR [facility] CORNEAL TRANSPLANT,LAMELLAR Bilateral KNEE [id number] OTHER PENETRATING KERATOPLASTY PHACOEMULSIFICATION OF CATARACT WITH INTRAOCULAR LENS IMPLANT Right 03/17/2019Surgeon: Virgil Martinez MD; Location: [facility] OR LocationReview of Systems:Review of SystemsConstitutional: Positive for fatigue. Negative for fever.HENT: Negative.Eyes: Negative.Respiratory: Negative.Cardiovascular: Negative.Gastrointestinal: Negative.Genitourinary: Negative.Musculoskeletal: Positive for myalgias. Negative for neck pain.Skin: Positive for color change.Neurological: Positive for weakness.Psychiatric/Behavioral: Negative for confusion.All other systems reviewed and are negative.Physical Exam:ED Triage Vitals [04/03/24 0941]WeightActual or estimatedHeightBP (!) 174/84Pulse 92Resp 18Temp 36.5 ?C (97.7 ?F)Temp srcSpO2 98 %Measured on Room airPhysical ExamVitals and nursing note reviewed.Constitutional:General: He is not in acute distress.Appearance: He is not ill-appearing.Comments: Well-appearing, no acute distress, sleepy but easily aroused to voice and subsequently alert and follows commands, oriented x 3HENT:Head:Comments: Patient with a 2 x 3 cm area of abrasion on his left forehead, no bony tenderness, no signs of infectionNose: Nose normal.Mouth/Throat:Mouth: Mucous membranes are dry.Pharynx: Oropharynx is clear.Comments: Mildly dry mucous membranesEyes:General: No scleral icterus.Extraocular Movements: Extraocular movements intact.Pupils: Pupils are equal, round, and reactive to light.Comments: CN II to XII intact, pupils 2 mm and sluggishNeck:Comments: No midline cervical dorsal lumbar spine tenderness to palpationCardiovascular:Rate and Rhythm: Normal rate and regular rhythm.Heart sounds: Normal heart sounds.Pulmonary:Breath sounds: Normal breath sounds.Abdominal:Palpations: Abdomen is soft.Tenderness: There is no abdominal tenderness. There is no right CVA tenderness or left CVA tenderness.Musculoskeletal:General: Swelling and tenderness present. Normal range of motion.Cervical back: Normal range of motion. No rigidity or tenderness.Right lower leg: No edema.Left lower leg: Edema present.Comments: Nonpitting edema to the bilateral hands and distal forearms no signs of cellulitis, neurovasc intact throughout strength intact cap refill less than 2 seconds. Bilateral feet with mild edema nonpitting, neurovascular intact, cap refills in 2 seconds, sensation intact. On the dorsum of the right foot is a small skin tear with surrounding 4 x 4 cm area of redness that is very tender to palpation and warm to touch likely secondary cellulitisSkin:Capillary Refill: Capillary refill takes less than 2 seconds.Findings: Erythema present.Neurological:General: No focal deficit present.Mental Status: He is alert and oriented to person, place, and time.Psychiatric:Thought Content: Thought content normal.Radiology:No orders to displayLab Results:Lab Results - No data to displayEKG:If EKG completed, see Procedure Note.Orders and Treatments:No orders of the defined types were placed in this encounter.No orders of the defined types were placed in this encounter.First Provider Eval:ED EventsDate/Time Event User Qxvkflrb31/12/24947 Medical Screening Begins NANDO HAGAN MD --04/03/24947 First Provider Evaluation NANDO HAGAN MD --ED COURSEED Course as of 04/03/24 1633Sun April 03 Patient requested a paper prescription for the antibiotics [CD]1549 Patient did not have any symptoms during orthostatics but his blood pressure did decrease a bit, patient had only received 500 mL of fluid originally, will give another 500 mL [CD]1443 Patient is more alert, I offered him something to eat and he excepted, patient spoke with case management and declined inpatient nursing facility but is agreeable to go to the [facility]. Will reassess shortly [CD]1433 AMMONIA(!): <9No metabolic encephalopathy [CD]1412 Acute Care Arterial Blood Gas.wnl [CD]1411 URINE DRUG (IMMUNOASSAY) - COMPREHENSIVE DRUG SCREEN W/O REFLEXneg [CD]1338 Patient's mental status has not improved in 4 hours in the ER, has a negative head CT, negative alcohol level, the urine tox is pending, will add an ABG and an ammonia level to try to fly because of the patient's lethargy and somnolence [CD]1338 URINALYSIS(!)No UTI [CD]1337 Patient reassessed, patient is still somnolent but arouses to voice and then subsequently to follow commands. The nurse from [facility] rehab was trying to assess the patient, she stated she was unable to have him give information to the questions she was asking him, he became fixated that he needed to urinate, she went to get a nurse to get him a urinal and the patient proceeded to urinate all over the floor [CD]1224 IMPRESSIONImpression:Unremarkable foot.[CD]1224No radiologically significant acute abnormality of the chest.[CD]1218 GALV ONLY - INFLUENZA A B RSV PCRNegative [CD]1158 NA(!): 132IVF NS given [CD]1157 ALCOHOL: <10 [CD]1157 TROPONIN I: 0.006Acs less likely [CD]1157 CK: 35No rhabdo [CD]1157 MAGNESIUM(!): 1.6Replaced with IV mag 2grams [CD]1157 GLUCOSE(!): 353Elevated but normal AG and CO2, DKA less likely [CD]1136 HGB: 12.5Similar to previous [CD]1135 WBC x10^3(!): 11.53Assessing for infection [CD]1132 LACTIC ACID WHOLE BLOOD: 1.63Severe systemic infection less likely [CD]1129 Right foot x-ray interpreted by myself no fracture or dislocation, no signs of osteomyelitis [CD]1129 Chest x-ray interpreted by myself no acute cardiopulmonary process [CD]1056 IMPRESSION1. No acute intracranial abnormality.2. No acute fracture or traumatic malalignment of the cervical spine.Preliminary Report Dictated by Resident: Marlen Carmona[CD]1047 POCT Glu (age>30days)(!): 305 [CD]0948 69 male with history of diabetes, hypertension, CVA with no residual weakness but problems with balance and coordination, undomiciled, comes in status post multiple falls, states he fell twice today, states he feels weak and tired. Patient has abrasion on his forehead, states his last tetanus was more than 5 years ago. Denies smoking, intermittent drinker but states he has not drank in a long time, denies any drug use. Denies any chest pain or shortness of breath, patient is complaining of pain in his right foot. No abdominal pain no nausea vomiting or diarrhea states he does feel like his hands and feet are swollen which is not his baseline. Patient has been seen here multiple times this week for falls and weaknessDifferential includes but not limited to cellulitis, dehydration, PAUL, CHF, atypical ACS, less likely intoxication, rhabdomyolysis, COVID, flu, other viral illness, pneumoniaPlan is labs, CT scan of the head and neck for the trauma, x-ray, urine swabs monitor and reassessment. Patient understands and agrees with plan [CD]ED Course User Index[CD] Nando Hagan, MDDiagnosis/Impression as of 04/03/24 1633Fall, initial encounterInjury of head, initial encounterCellulitis and abscess of footHypertension, unspecified typeHyperglycemiaDehydrationProcedures:EKG-12 Lead ROUTINE ONCEDate/Time: 04/03/2024 12:25 PMPerformed by: Nando Hagan MDAuthorized by: Nando Hagan MDECG interpreted by ED Physician in the absence of a application developer manager: yesPrevious ECG:Previous ECG: Compared to currentSimilarity: No changeComparison ECG info: 09/20/2019Interpretation:Interpretation: abnormalRate:ECG rate: 75ECG rate assessment: normalRhythm:Rhythm: sinus rhythmEctopy:Ectopy: noneQRS:QRS axis: LeftQRS intervals: NormalQRS conduction: normalST segments:ST segments: NormalT waves:T waves: normalMDM:Medical Decision MakingSee ED course for MDMProblems Addressed:Cellulitis and abscess of foot: acute illness or injuryDehydration: acute illness or injuryFall, initial encounter: acute illness or injuryHyperglycemia: acute illness or injuryHypertension, unspecified type: chronic illness or injuryInjury of head, initial encounter: acute illness or injuryAmount and/or Complexity of Data ReviewedLabs: ordered. Decision-making details documented in ED Course.Radiology: ordered. Decision-making details documented in ED Course.ECG/medicine tests: ordered and independent interpretation performed. Decision-making details documented in ED Course.Details: See procedure noteRiskOTC drugs.Prescription drug management.Flowsheet Documentation:Scoring Tools:No data recordedDisposition/Condition:ED DispositionNoneDischarge Medications:Patient's MedicationsSTART taking these medicationsNo medications on [...] Use as directedLANCETS (TRUEPLUS LANCETS) 33 [facility]AUGE [facility] Monitor Blood Glucose dailyLISINOPRIL-HYDROCHLOROTHIAZIDE 10-12.5 MG PER TABLET Take 1 tablet by mouth once dailyMETFORMIN 1,000 MG TABLET Take 1 tablet by mouth 2 (two) times daily with meals.MISCELLANEOUS MEDICAL SUPPLY [facility] E11.8: dispense Insulin Syringe 31 gauge brand [...] taking these medicationsNo medications on fileFollow-up:Electronically signed by:Nando Hagan MD04/03/24 1651 35285-5Gbfdhygfl Emergency department VwguTK9096-96-75P73:51:36Physician Emergency department NoteTXT1.2.840.386450.1.13.104.2.7.2.399850|2 [id number] for patient xhqc11794-4Lxemjfwlt department NoteLNNARRATIVEFormatted C-CDA narrative textUTEASTERN NEW MEX[facility] - [address] Pvz[id number] GBIZDGZMXTMUY7106-91-11R74:51:361.2.840.45344 0.1.72.3.15|1.2.840.189256.1.13.104.2.7.2.727 [id number] [facility] 2024-03-31 19:41:41 q40Wa3N/ac6QK/87H8Bhed6e7dHkweOqwD65/Mike uzgLw ZcFcuutL3DKwz4tTCaq1717-33-01U22:41:41Formatt ing of this note might be different from the original.Pt discharged to home. Discharge instructions given to pt regarding management of condition and instructions to follow up with PCP. Pt verbalized understanding. PIV removed without complications. Patient in possession of all belongings. Pt ambulates to lobby with steady gait. 56691-1Sumwglxqi department BotdBV8234-61-28K07:41:58[facility] department NoteTXT1.2.840.718281.1.13.104.2.7.2.628354|2 [id number] for patient umtk38826-8WiweZDQJBNPZLHPEusxgwdqv C-CDA narrative opjp772919377Snbtwupmq Johnson RN[address] Lrw[id number] PDPBGBEAQUYDZ2986-39-40R15:41:581.2.840.61416 0.1.72.3.15|1.2.840.065884.1.13.104.2.7.2.727 [id number] Kunal Joiner RN [facility] 2024-03-31 19:37:16 0D9oJwyKtnW5lW9AmH2qr7aZ9a4JN3teWOWhnDS8 rXyhy YKKBkCOSyIg3+OqFuT+8502-44-94K49:37:16Formatt ing of this note might be different from the original.DISCHARGE HOLD: Pt requesting compression stockings. Materials management contacted. 13058-0Yyrvougnh department QrvxIV5699-82-10J62:38:30[facility] NoteTXT1.2.840.772202.1.13.104.2.7.2.112266|2 [id number] for patient yssa31477-4UgmkNTCPODRQJBCCempquzbt C-CDA narrative text63 Martin [id number] WTVBAEOZBWURM8686-48-07V11:38:301.2.840.55452 0.1.72.3.15|1.2.840.616099.1.13.104.2.7.2.727 [id number] [facility] 2024-03-31 12:35:04 JB0YV64WZqZnB1O47f8MfWoWI3yaEsZvvKMjhR9E FWZFh H6JZV0XYRR3hwxYiXTt8779-45-35K55:35:04Formatt ing of this note might be different from the original.Raj Morales is a 69 year old male presenting to ED with c/o fall. Patient reports using walker and reports stepped off a curb and fell. Patient reports hitting head on ground but denies LOC. No use of blood thinners. BGL "HI" for EMS. Patient received 400cc NS SHOP ESTIMATOR. BGL 526. Patient to green chairs due to ED saturation 31023-8Colwovsoa department Triage uhedYX6684-44-73P43:39:58[facility] Triage noteTXT1.2.840.757768.1.13.104.2.7.2.112478|2 [id number] for patient moyl43751-2Mrfafhjdg department NoteLNNARRATIVEFormatted C-CDA narrative [id number] L Holmes RNUT[address] [id number] JGRRJATIIXPHO0713-44-56R69:39:581.2.840.14786 0.1.72.3.15|1.2.840.470032.1.13.104.2.7.2.727 [id number] Shavon Wolfe Linares SIXTO [facility] 2024-03-29 18:51:55 WttYEfsXwnXfaM749Rs9CgDdgbYhxIf6Q2LIvDVd 3ppEp t4Uw0JQdgx0jM0LcgHa1411-66-17E23:51:55Formatt ing of this note might be different from the original.Raj Morales verbalized an understanding of DC instructions. NAD. Respirations unlabored. Pt wheeled out to the ER lobby. Pt given cleaning wipes and reports he needs to get dressed prior to going to ER lobby. RENEE Gusman spoke with patient regarding transport. 84715-5Vmwhikwlg department TlksNF8443-74-32V80:53:30[facility] center[facility] department NoteTXT1.2.840.564947.1.13.104.2.7.2.306255|2 [id number] for patient hrrn41309-1KddrJATVOQGTFGKGovserymo C-CDA narrative vsag384940593Khvsyqh Salazar RN[address] DkxePthpkirpbWacxmnbuyYHUH4893901947FLBBXYQNR JGAPZNCGWCACJ5958-47-12T95:53:301.2.840.72883 0.1.72.3.15|1.2.840.374895.1.13.104.2.7.2.727 [id number] Porsha Encarnacion RN [facility] 2024-03-29 18:44:41 7+PDAziP7CiNbPhRdrGHa33EARGShtTGo7feGOfr OCOuN AFKamFMuOb/7DPAj/ej5217-42-72Z72:44:41Formatt ing of this note might be different from the original.Images from the original note were not included.ED LBSW Case Note03/29/2024 6:44 PMThis LBSW was consulted by FANI Johnson regarding pt's need for housing.This LBSW attempted to assist pt last time he was here on 03/22/2024. Please see this LBSW's note and how this LBSW assisted him.This LBSW met with pt at bed side to give pt the number to Libby ([facility]). Ms. Souza arranged housing for pt within his budget but pt never got back to her. This LBSW encouraged him to give her a call to arrange the housing she set up for him.HAIDER [facility] Office [email or web address] 31525-1Becdbtfje department BsrbET7693-86-61B06:52:22[facility] department NoteTXT1.2.840.769335.1.13.104.2.7.2.564618|2 [id number] for patient twmu84267-3Kwmkvwwjd department NoteLNNARRATIVEFormatted C-CDA narrative cjmq355302713Suwkdwr Howard [address] ThamImeruxumuPxyxlfuftXCQM9665740139PHEFPPFZB XJKGKCOXYCGFL1550-45-18Z80:52:221.2.840.88533 0.1.72.3.15|1.2.840.792508.1.13.104.2.7.2.727 [id number] Naseem MALONEY [facility] 2024-03-29 14:46:31 c3pKFYJt/w5fh4qQNRla/5Nrj11yie5WL6ueDtMn roQWQ 0MVsfrRS96uvMzM/pgp9375-74-16V80:46:31Formatt ing of this note might be different from the original.Raj Morales is a 69 year old male presenting to ED via [facility] with c/o back pain. Patient reports mechanical fall earlier today with no LOC. No use of blood thinners. Patient to green chairs due to ED saturation 86306-0Grvtrasyf department Triage axxpXI2210-08-90E29:47:08[facility] department Triage noteTXT1.2.840.910079.1.13.104.2.7.2.811628|2 000179230HCYiyendylt for patient bwpx82204-4Vxijyzgmm department NoteLNNARRATIVEFormatted C-CDA narrative [id number] L Holmes RN[address] IccaSnwgethrdJqqychzobZQBM3813432974YAVYFQVTS MAFKXPXEPXMFM2426-99-01X84:47:081.2.840.41858 0.1.72.3.15|1.2.840.920801.1.13.104.2.7.2.727 [id number] Shavon Linares RN [facility] 2024-03-22 16:51:23 g2lWHNNgw2T+OAwCEVm0LwINrowPKvUQurlPOrwA 39PMV 940UOn5Sb9TuDEcABIH7255-08-67E03:51:23Formatt ing of this note might be different from the original.[employer]/ [employer] is working on getting pt a ride. DC hold until completed. 75148-6Gpput LfgaLN2865-92-94N22:51:40Nurse NoteTXT1.2.840.033443.1.13.104.2.7.2.197574|2 [id number] for patient vfwv38052-3Wtprr NoteLNNARRATIVEFormatted C-CDA narrative kuzp047740626Odvgyuv K Bartels RNUT[address] [id number] PPOQOPQQFLNNA0301-86-63J47:51:401.2.840.08506 0.1.72.3.15|1.2.840.395131.1.13.104.2.7.2.727 [id number] Mina Ordaz RN [facility] 2024-03-22 13:07:59 YjYiY9TUnJAfhuVcKvmeVVCX1p7x4as4XoVwnCZo bWJ1G lsRYm/iF9OdvStLgNU95454-55-95Q10:07:59Formatt ing of this note might be different from the original.Social work at bedside. 15943-5Hbsfx XkjtYU0651-77-20H97:14:01Nurse NoteTXT1.2.840.881713.1.13.104.2.7.2.504732|2 [id number] for patient sihp21141-7Jvbcc NoteLNNARRATIVEFormatted C-CDA narrative text[address] [id number] MQMLVCLMWKTCD3163-79-52M12:14:011.2.840.11768 0.1.72.3.15|1.2.840.844727.1.13.104.2.7.2.727 [id number] [facility] 2024-03-22 13:07:00 ei3/AhajSeNSIfzs9ZVoRqCLXDfOfDPkhI81jBhc N9+pJ j4Z1ZLmmz7Ax+TN3akM6334-75-21J92:07:00Formatt ing of this note might be different from the original.Images from the original note were not included.ED LBSW Case Note03/22/2024 5:13 PMTransportation arranged via [employer] .Patient name: Raj MoralesMRN: [id number] date: 4Reason for voucher: Pt doesn't have a means of transportationVoucher #: [id number] met with pt face to facePt is AOX 4ABurbank HospitalIn the future pt is made aware that they will need to find a ride home, unless they are non-ambulatory. Pt was made aware that the [facility] bus transportation picks up right in front of the hospital and that they can ride for free with the hospital wristband03/12/2024 4:20 [facility] met with pt at bed side to discuss the referrals sent, provide the resources that he gathered for pt. SIXTO Enriquez, MD Tommie and MD Libby notified of what was done from LBSW/CM stand point03/22/2024 4:05 [facility] faxed and emailed referral to [facility] - [facility] to assist pt with finding housing.03/22/2024 3:53 [facility] gathered the following resources for pt;[facility] Resources PacketAetna Non-Emergency Medical Transport FormCoastal Health & Wellness Information/Registration PacketGrace Clinic FlyerSt. Donie services available/schedule formGCC FlyerGoodRx Card03/22/2024 3:33 [facility] contacted Fox from [facility] to send a referral to her to possibly assist pt with finding a home within his budget03/22/2024 3:00 [facility] gathered shirts, socks, a pair of shoes, underwear, shorts/pants, hygiene products, snacks for pt. [facility] also collected a walker from the supply closet to potentially replace the walker the pt has now.03/22/2024 2:07 [facility] sent referral to Magda ([address] [address] ) to work him up for possibly inpt. 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 and he has been w/o one since.- Pt is currently homeless- Pt has [employer] as health insurance- Pt gets between $1300-$1400 a month from social security- Pt stays in front of [employer] [place]- Pt has an active phone and knows how to use it: - Pt is wanting to get back to work but can't because he can't walk w/o assistance due to his unsteadiness and pain in his legs.- Pt doesn't have a PCP- Pt is interested in some sort of rehab to assist with his gait and steadiness of walkingHAIDER SamSowicho [facility] Office [email or web address] [address]-1Zxcepgwfd department HcsmQG5943-47-75W57:17:15[facility] department NoteTXT1.2.840.270092.1.13.104.2.7.2.994175|2 [id number] for patient ikmk23918-7Lzpaculfe department NoteLNNARRATIVEFormatted C-CDA narrative [id number] Howard LBSW[address] Fq[id number] SRNLQYRMAQTFD9696-17-42X36:17:151.2.840.54165 0.1.72.3.15|1.2.840.071705.1.13.104.2.7.2.727 [id number] Naseem MALONEY [facility] 2024-03-22 13:04:31 /gpUB+U1spchU5T8BDPF9xj4R67CUwZp65EPRiRH nrQqu 3xG8+8aqWmzL0YvWSDQ8208-59-48K18:04:31Formatt ing of this note might be different from the original.Pt requested help from social work for an upgraded walker and questions about housing options other than the [facility]. Social work was called. Will relay the [place]. 31554-6Ywxxe UehrOL4799-21-72L13:05:42Nurse NoteTXT1.2.840.037727.1.13.104.2.7.2.647421|2 [id number] for patient bmob13519-0Xvtdz NoteLNNARRATIVEFormatted C-CDA narrative textUT[address] Qa[id number] BRAPVBIIHFWOC8723-28-21V37:05:421.2.840.98973 0.1.72.3.15|1.2.840.162025.1.13.104.2.7.2.727 [id number] [facility] 2024-03-22 11:08:13 eB+s7x64EVCxpGEaynzc/A9DoarJ74zfpnYJi16J ey4kU FFMluSFkdPdC0rpuHyb8335-68-31Q98:08:13Formatt ing of this note might be different from the original.Pt [place] XR 11809-0Urlrt GoqyVZ0003-79-44A46:08:21Nurse NoteTXT1.2.840.436899.1.13.104.2.7.2.268806|2 [id number] for patient fukj99776-2Ywpgi NoteLNNARRATIVEFormatted C-CDA narrative text[address]Kd[id number] MRYDPINQSFBAY7610-01-24V17:08:211.2.840.95015 0.1.72.3.15|1.2.840.944588.1.13.104.2.7.2.727 [id number] [facility] 2024-03-22 09:54:54 lM2cKrxqZa+SbBEQdq9Ho2LE6cEbYxaZuboLCVcV 4OyI0 99AWkituOHAg6S+Yq8Q8170-12-45T16:54:54Formatt ing of this note might be different from the original.Raj Morales is a 69 year old male who presents to the ED with chief complaints of Left foot and leg swelling. Foot is warm to the touch. Pt rates pain as a 10/10. AAOx4. VSS. RR E/U. Skin warm and dry. NAD noted. Roomed for eval. 06167-7Bbflwddjx department Triage ybdeLU5902-02-16B37:56:53[facility] department Triage noteTXT1.2.840.597069.1.13.104.2.7.2.606324|2 [id number] for patient jfar37351-7Hmhnhkmni department NoteLNNARRATIVEFormatted C-CDA narrative [id number] HUSSEIN[address]Yuy[id number] ZPTUKPUXBCWHB6432-37-91U92:56:531.2.840.80777 0.1.72.3.15|1.2.840.844277.1.13.104.2.7.2.727 [id number] Parvin José RN [facility] 2024-03-12 00:01:12 dngOKFw9uvQhFLwYZ3eAGLS90CpX4DfuL79q8+2d igJFJ RLlOJxCRSReqIWFXY4W0626-32-14U36:01:12Formatt ing of this note might be different from the original.Patient received discharge instructions and voiced understanding, documentation acknowledged and signed. Pt education provided on prescription use and signs of worsening symptoms. Pt alert and oriented x4, RR equal and unlabored, no sign of acute distress on discharge, patient wheeled to the lobby.Denied any remaining belongings at time of Ed departure, suggested to follow up with pcp.Pt provided with resources for [facility] 53524-5Lbrcowmec department WujcPW0122-32-03T17:02:16[facility] department NoteTXT1.2.840.960272.1.13.104.2.7.2.888814|2 [id number] for patient yrby38581-8WltoYWBYEAILZAMMxnflgbwk C-CDA narrative [id number] Becerril RN[address] [id number] YLDPHUSPTJMLX7285-53-29N12:02:161.2.840.38664 0.1.72.3.15|1.2.840.887812.1.13.104.2.7.2.727 [id number] Dixon Becerril RN [facility] 2024-03-11 23:49:16 TiTSqfZoXu/gP1ZZahzNPQI+bLqdOiV8BZLFOHwg w/HI9 XWIH4BBFhvvWaEi5jA06149-69-32W48:49:16Formatt ing of this note might be different from the original.Dr. Green informed of pt repeat BGL and pt cleared for discharge 08007-4Oxuylwdwu department YvcmEU5751-09-15G34:59:32[facility] NoteTXT1.2.840.270259.1.13.104.2.7.2.706695|2 [id number] for patient xuqh47507-8EyjuLRKXDZUSTZZAgpaxfioa C-CDA narrative qbwm828738692RztvzrkRachana HUSSEIN[id number] KQIHUFGZJHYOJ3746-43-94P90:59:321.2.840.10144 0.1.72.3.15|1.2.840.642047.1.13.104.2.7.2.727 [id number] Rachana Pettit RN [facility] 2024-03-11 23:48:43 TWORte/qHTngoG7f1vsn2ctvhAaLbK6eKA3amapq 8yDFT 3hOCQDi1pDu14/OYQJW8232-94-15E44:48:43Formatt ing of this note might be different from the original.SW bedside 47961-5Vouhyzfkz department BxzvOR5774-57-25M40:48:49[facility] NoteTXT1.2.840.524348.1.13.104.2.7.2.106070|2 649620794HIDxebwavli for patient xcis47981-4ZfhyCMAJYUMVILMNgxyrfwns C-CDA narrative text[id number] IBXTGPBHTUUGT0603-06-56T27:48:491.2.840.90508 0.1.72.3.15|1.2.840.660261.1.13.104.2.7.2.727 [id number] [facility] 2024-03-11 23:42:25 vxLLdOjlnbbcKmo6PEZceSdaYAkNsqMzN2q3E/WD GVT4W 1LxTUJVm5DreaHl+dGq2176-26-59C95:42:25Formatt ing of this note might be different from the original.BGL 213 after completion of 2nd liter of NaCl and 2 hours post 10u IVP insulin 98942-3Ncefsjabl department LkucIU9265-25-82Z98:43:05[facility] NoteTXT1.2.840.703917.1.13.104.2.7.2.718767|2 [id number] for patient smrn78261-5XmckPCWICZUVXQLKiyetyehv C-CDA narrative [address]WbpdM[id number] QZFYLGMROPXGJ1898-34-31L27:43:051.2.840.00665 0.1.72.3.15|1.2.840.569213.1.13.104.2.7.2.727 [id number] [facility] 2024-03-11 22:46:08 bbpdcnUvkczMZBEeDaYKk6J8UUIdwJq5EeVICwYC Aptkl 1eBd5XqP32tOEBlE9Mu1692-35-88Y98:46:08Formatt ing of this note might be different from the original.BGL: 258. This is after the first 1L NaCL and 1 hour post 10u IVP insulin 69815-8Kqhveotae department SjvmJX6688-93-08Y95:46:44[facility] NoteTXT1.2.840.357283.1.13.104.2.7.2.820376|2 [id number] for patient frcr82843-4SdcaEDBMEKAYLVQFuynihala C-CDA narrative text[id number] GLESVHFOYXUCU3480-69-33M53:46:441.2.840.32275 0.1.72.3.15|1.2.840.670784.1.13.104.2.7.2.727 [id number] [facility] 2024-03-11 21:37:43 e7UIwsGEmqs1Bo4ummyUyY3L36sWgbul5Nefejcw G/IWz oyOExElKZoUTkDZGKX+4857-42-16X88:37:43Formatt ing of this note might be different from the original.Dr. Millard confirmed to give 10u insulin IVP now 88756-0Lfowpmwwj department HlajOU7125-30-52T59:43:07[facility] department NoteTXT1.2.840.898127.1.13.104.2.7.2.310153|2 [id number] for patient ykfs31902-7BbxjSXWOJJRDIAUMdovtiwbj C-CDA narrative text[id number] QOFLAYNLEOHEG0679-26-94T61:43:071.2.840.84427 0.1.72.3.15|1.2.840.041487.1.13.104.2.7.2.727 [id number] [facility] 2024-03-11 21:30:15 ajqNzTa3WctucrkLZlL8oYCDiSE6mjgIjGpyUp32 ie7WX qciTk8p/UePG1DkA7Mo3394-55-38F14:30:15Formatt ing of this note might be different from the original.BGL 579. Provider contacted to verify IVP insulin order [id number] [place] [address] AtywZI5708-21-94J65:30:33[facility] department NoteTXT1.2.840.862031.1.13.104.2.7.2.773055|2 [id number] for patient uyky59311-9ZltcIEGCJOCRYXNYqhgcmvaa C-CDA narrative [employer] [id number] OHYOVIMRQBOGI6501-79-88C86:30:331.2.840.40367 0.1.72.3.15|1.2.840.647488.1.13.104.2.7.2.727 [id number] [facility] 2024-03-11 21:19:00 +/7T7Qei0aB+v8csonJIpAnMKlFbjrIfHgjZ0EyA bmb5x ZNoH8xVVCNM5ioiw1O07770-67-72R63:19:00Formatt ing of this note might be different from the original.Pt returned from imaging NAD noted 35659-5Sdpbrjejx department MvbcUG2995-27-93Z19:23:30[facility] department NoteTXT1.2.840.040718.1.13.104.2.7.2.281934|2 315432436MSZwrgwfpws for patient awil86623-7VmbbLEAJPQWHAJUTdbcdfpgd C-CDA narrative [id number] SZIMQBPKBTNSY5971-17-98I08:23:301.2.840.06563 0.1.72.3.15|1.2.840.852029.1.13.104.2.7.2.727 [id number] [facility] 2024-03-11 20:28:55 SQEKbKDpQe55M21NVTiVKiAMPhsYE1cvM6KVvfcE lwU52 OwolY8N+fB7e7Gu/ZQ29143-74-06A45:28:55Formatt ing of this note might be different from the original.Pt ao4 presents via EMS c/o progressive bilateral leg weakness. Pt reports he was suppose to be staying at [facility] but uncomfortable w sleeping conditions at custodial. EMS glucometer read HI (monitor max at 600). Pt reports he has DMII and but has not had his insulin in approx 3-4 weeks. Pt denied any current pain or distress. Resp e/u on RA. Pt not endorsing any N,V,D,SOB, CP, MCKEON. Pt placed on VS and cardiac monitoring. Call light in reach, bed locked and lowered. Will cont to assess and tx per plan of care.EMS: 20g right arm ventral, approx 200ml NaCL givenDr. [place] bedside 11777-4Gkffuqzyf department ChdzTW0562-58-82E16:46:36Emergency department NoteTXT1.2.840.977218.1.13.104.2.7.2.846359|2 [id number] for patient cjed38705-3GdquOBLYIOGAJQSYrlnbxqyw C-CDA narrative textUT[address] HftyLnjspambjVnhhzcjjaQLPV7073319825FOYZYVPXW KJTKTJCUNKMRE2842-82-97U95:46:361.2.840.85336 0.1.72.3.15|1.2.840.170464.1.13.104.2.7.2.727 [id number] [facility] 2024-03-11 20:16:12 MH05XlsbSS8W9x9yYEfzBXqWRJLTU3aUwlswK5Z7 TyQwa J+CXkcPLrg9piMLrldv7456-14-42J65:16:12Formatt ing of this note might be different from the original.Raj Morales is a 69 year old male presents to ED c/o bilateral leg weakness. Patient reports going on for 2-3 months, worsening tonight and unable to walk up steps to [facility]. Patient Aox4, NAD noted, VSS, RR e/u. SHOP ESTIMATOR 20g R wrist, BGL HI for EMS. EKG in triage. Patient to room for further evaluation. 46206-4Ykeqcvcsh department Triage ewspQX0413-17-18B53:18:47[facility] Triage noteTXT1.2.840.754815.1.13.104.2.7.2.412978|2 [id number] for patient jnvy30876-4Ifgaxhepm department NoteLNNARRATIVEFormatted C-CDA narrative lora081100307Bqolbx L Payne RNUTEASTERN [facility] - [address] Unhz[id number] IZGZRWUJLADBE9021-58-08V47:18:471.2.840.51762 0.1.72.3.15|1.2.840.668490.1.13.104.2.7.2.727 [id number] Lacey Bentley RN [facility] 2024-03-11 20:15:00 fdRRfODfiyaUXVEsXyZYCGe6WSlvv+Hb6TRTGqCf bKLbl D4r0vE1VRVgH9+5dAEb3438-47-01E59:15:00Formatt ing of this note is different from the original.[facility] Emergency Department NotePatient Name: Raj MoralesDate of : 1955 69 year old maleTreatment Room: 121/[facility]Medical Record Number: [id number] Care Physician: Edita-Hilario BuiPatient Escorted by: Self [9]Mode of Arrival: EMS - GEMS [30]EMS Treatment Prior to ED Arrival:SHOP ESTIMATOR treatment: Saline lock;IVFTravel and Exposure Screening:SymptomsDoes patient have any of these symptoms?: (not recorded)Exposure ScreeningHas patient had contact with someone with a communicable disease in the last month?: (not recorded)Diseases exposed to:: (not recorded)Is Patient ?: (not recorded)Exposure Date: (not recorded)Chief Complaint:Chief ComplaintPatient presents withWeaknessHistory of Present Illness:Patient presenting to ED with c/o worsening generalized weakness x past couple of months and worst today. According to patient he was having a hard time walking up the steps of the [employer] due to bilateral leg weakness. Patient states this has been going on for a couple of months but it was worst today. Patient denies any recent trauma or recent illnessHistory provided by: PatientLanguage reconsignment clerk used: NoPast Medical History/Immunizations:Past Medical History:Diagnosis DateAcute midline low back pain without sciatica 01/18/2020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) 10/12/2019CataractOS ONLYCellulitis of foot, left 04/12/2020DiabetesDiabetic eye exam 12/01/2019Added automatically from request for surgery [id number] of both legs 02/28/2020Erectile dysfunction, unspecified erectile dysfunction type 02/28/2020Essential hypertension 02/28/2020HTN (hypertension)HyperlipidemiaObesity (BMI 30-39.9) 03/17/2019Psoriasiform dermatitis 1Stroke 2017Type 2 diabetes mellitus with vascular disease 10/12/2019Upper respiratory tract infection, unspecified type 10/12/2019Tetanus received in last 5 years: YesChildhood immunizations: Wo-uq-gineKtskfijol:No Known AllergiesPast Social History:Tobacco UseNever smoked or used smokeless tobacco.Alcohol UseNo.Drug UseNo.Past Surgical History:Past Surgical History:Procedure Laterality DateCOLONOSCOPY N/A 12/30/2019Surgeon: Glo Finn MD; [facility] LocationCORNEAL TRANSPLANT,LAMELLAR BilateralKNEE HESMVQMRYQY1136PRNNLRUVMSDGAMZS KERATOPLASTYPHACOEMULSIFICATION OF CATARACT WITH INTRAOCULAR LENS IMPLANT Right 03/17/2019Surgeon: Virgil Martinez MD; [facility] [place]Review [place] Systems:Review of SystemsConstitutional: Positive for fatigue. Negative for chills and fever.HENT: Negative for congestion.Eyes: Negative for visual disturbance.Respiratory: Negative for shortness of breath.Cardiovascular: Negative for chest pain.Gastrointestinal: Negative for abdominal pain, nausea and vomiting.Genitourinary: Negative for dysuria.Musculoskeletal: Negative for back pain.Neurological: Negative for headaches.Physical Exam:ED Triage Vitals [03/11/242016]Weight 99.8 kg (220 lb)Actual or estimatedHeight 1.778 m (5' 10")BP 107/71Pulse 92Resp 18Temp 37.3 ?C (99.2 ?F)Temp source OralSpO2 99 %Measured on Room airPhysical ExamVitals and nursing note reviewed.Constitutional:General: He is not in acute distress.Appearance: Normal appearance. He is normal weight. He is not ill-appearing, toxic-appearing or diaphoretic.HENT:Head: Normocephalic and atraumatic.Right Ear: External ear normal.Left Ear: External ear normal.Nose: Nose normal. No congestion.Mouth/Throat:Mouth: Mucous membranes are moist.Pharynx: Oropharynx is clear.Eyes:Extraocular Movements: Extraocular movements intact.Conjunctiva/sclera: Conjunctivae normal.Cardiovascular:Rate and Rhythm: Normal rate and regular rhythm.Heart sounds: Normal heart sounds. No murmur heard.Pulmonary:Effort: Pulmonary effort is normal. No respiratory distress.Breath sounds: Normal breath sounds. No wheezing or rales.Abdominal:General: Abdomen is flat. Bowel sounds are normal. There is no distension.Palpations: Abdomen is soft.Tenderness: There is no abdominal tenderness. There is no guarding.Musculoskeletal:General: Normal range of motion.Cervical back: Normal range of motion and neck supple.Right lower leg: Edema present.Left lower leg: Edema present.Skin:General: Skin is warm.Neurological:General: No focal deficit present.Mental Status: He is alert and oriented to person, place, and time. Mental status is at baseline.Cranial Nerves: No cranial nerve deficit.Motor: No weakness.Gait: Gait normal.Psychiatric:Mood and Affect: Mood normal.Behavior: Behavior normal.Thought Content: Thought content normal.Radiology:XR LUMBAR SPINE 2 VWPreliminary ResultEXAM: XR LUMBAR SPINE 2 VWHISTORY: 69 years-old Male; Provided indication: bilateral leg weakness .TECHNIQUE: Anterior and lateral views of the lumbar spine were obtained.COMPARISON: None.FINDINGS:No acute fracture or traumatic dislocation is visualized. Normal lumbarlordosis is preserved. The vertebral bodies are normal in height and innormal alignment. The intervertebral disc spaces are preserved.IMPRESSIONNo acute osseous abnormality.Preliminary Report Dictated by Resident: Stephenie Rivera Results:Lab ResultsCBC WITH DIFF - AbnormalResult Value Ref RangeWBC 7.43 4.20 - 10.70 10*3/?LRBC 4.12 (*) 4.26 - 5.52 10*6/?LHGB 12.3 12.2 - 16.4 g/dLHCT 36.0 (*) 38.4 - 49.3 %MCV 87.4 81.7 - 95.6 fLMCH 29.9 26.1 - 32.7 pgMCHC 34.2 31.2 - 35.0 g/dLRDW-SD 41.0 38.5 - 51.6 fLRDW-CV 12.9 12.1 - 15.4 %PLT 231 150 - 328 10*3/?LMPV 10.5 9.8 - 13.0 fLNRBC/100 WBC 0.0 0.0 - 10.0 /100 WBCsNRBC x10^3 <0.01 10*3/?LGRAN MAT (NEUT) % 68.1 %IMM GRAN % 0.80 %LYMPH % 20.3 %MONO % 9.3 %EOS % 1.1 %BASO % 0.4 %GRAN MAT x10^3(ANC) 5.06 1.99 - 6.95 10*3/uLIMM GRAN x10^3 0.06 0.00 - 0.06 10*3/uLLYMPH x10^3 1.51 1.09 - 3.23 10*3/uLMONO x10^3 0.69 0.36 - 1.02 10*3/uLEOS x10^3 0.08 0.06 - 0.53 10*3/uLBASO x10^3 0.03 0.01 - 0.09 10*3/uLCOMP. METABOLIC PANEL (96824) - AbnormalNA 130 (*) 135 - 145 mmol/LK 4.4 3.5 - 5.0 mmol/LCL 98 98 - 108 mmol/LCO2 TOTAL 26 23 - 31 mmol/LAGAP 6 2 - 16BUN 24 (*) 7 - 23 mg/dLGLUCOSE 614 (*) 70 - 110 mg/dLCREATININE 1.21 0.60 - 1.25 mg/dLTOTAL BILI 0.4 0.1 - 1.1 mg/dLCALCIUM 8.6 8.6 - 10.6 mg/Clarence PROTEIN 6.1 (*) 6.3 - 8.2 g/dLALBUMIN 3.5 3.5 - 5.0 g/dLALK PHOS 107 34 - 122 U/LALTv 17 5 - 50 U/LAST(SGOT) 16 13 - 40 U/LeGFR 64.4 mL/min/1.37c0YZOJNFIY KINASE - AbnormalCK 32 (*) 33 - 194 U/LPOCT GLUCOSE (AUTOMATED) - AbnormalPOCT GLU 579 (*) 70 - 110 mg/dLPOCT GLUCOSE (AUTOMATED) - AbnormalPOCT GLU 258 (*) 70 - 110 mg/dLTROPONIN I - NormalTROPONIN I 0.006 <=0.034 ng/mLPOCT GLUCOSE(AGE >30DAYS)EKG:Sinus rhythm with PAC'sLeft axis deviationRate: 81EKG changed when compared with previous EKGOrders and Treatments:Orders Placed This EncounterProceduresXR LUMBAR SPINE 2 VWCbc with DiffComp. Metabolic Panel (64351)Creatine KinaseTroponin IPOCT GLUCOSE (AUTOMATED)POCT GLUCOSE(AGE >30DAYS)POCT GLUCOSE (AUTOMATED)Orders Placed This EncounterMedicationsNaCl 0.9% (NS) bolus infusion 1,000 mLinsulin regular human (HUMULIN R) injection 10 UnitsNaCl 0.9% (NS) bolus infusion 1,000 mLFirst Provider Eval:ED EventsDate/Time Event User Webgqhai05/19/242022 Medical Screening Begins DL MILLARD MD --03/11/242022 First Provider Evaluation DL MILLARD MD --ED COURSEDiagnosis/Impression as of 03/11/24 2328WeaknessHyperglycemiaProcedures:Procedure sMDM:69 y/o male with history noted above, presenting to ED with c/o generalized weakness x past couple of months and worst today. No saddle anesthesia noted on exam. CBC unremarkable. CMP notable for hyperglycemia BG 614 but other reeves unremarkable. Trop and EKG unremarkable. Xray L spine done and unremarkable. Patient given IV fluids and 10 units insulin and glucose retaken and improved BG 258. Patient DC home and instructed to follow up with PCPMedical Decision MakingProblems Addressed:Hyperglycemia: chronic illness or injury with exacerbation, progression, or side effects of treatmentWeakness: chronic illness or injury with exacerbation, progression, or side effects of treatmentAmount and/or Complexity of Data ReviewedExternal Data Reviewed: ECG.Labs: ordered. Decision-making details documented in ED Course.Radiology: ordered. Decision-making details documented in ED Course.ECG/medicine tests: ordered and independent interpretation performed. Decision-making details [...] by mouth 2 (two) times daily with meals.MISCELLDigital Vault [employer] [facility] E11.8: dispense Insulin Syringe 31 gauge brand [...] taking these medicationsNo medications on fileFollow-up:Electronically signed by:Dl Millard MD03/11/24 2329 52339-8Mvjcekidp Emergency department MaocNG8442-88-82F37:29:59Physician Emergency department NoteTXT1.2.840.069551.1.13.104.2.7.2.463125|2 [id number] for patient yykd33951-0Grulqlbvj department NoteLNNARRATIVEFormatted C-CDA narrative textUT[address] Ckqr[id number] SHTQDEUUUHUVE3262-23-59J39:29:591.2.840.10122 0.1.72.3.15|1.2.840.439041.1.13.104.2.7.2.727 [id number] [facility] 2024-02-10 14:56:30 uUgxXx/7Rd9sV/ww7etSjQ5SZVdxRdGPTqm3eh7J xb9zi TxqE7bwvt+kMy24e47o1349-15-41D79:56:30Formatt ing of this note might be different from the original.PT D/C home. GCS15, VS stable. Given D/C paperwork. Pt ambulatory at time of discharge. Pt educated on med usage, follow up care, s/s worsening condition, need for hydration. Pt verbalized understanding.[facility] arrived to transport patient. Pt given a care package upon discharge 07969-4Sneexrmgw department VoyvIE6218-66-89M89:58:55[facility] NoteTXT1.2.840.527454.1.13.104.2.7.2.471491|2 [id number] for patient viyk82902-7AkbuYTOCCDNDYLGEkbidqenw C-CDA narrative text[address] Ibqi[id number] VWWJDOVEUXAKK6941-40-80C15:58:551.2.840.12170 0.1.72.3.15|1.2.840.176124.1.13.104.2.7.2.727 [id number] [facility] 2024-02-10 14:54:31 sslcCTIJ6z2Vubnuk2LWsWbKII0uqGGoyPscR/0E V9zyL BG77jUqweZxVXmJPf/a7891-05-42R63:54:31Formatt ing of this note might be different from the original.Pt finishing food tray 39446-6Gryhmkwsy department YkmrLE0100-42-05V66:54:39[facility] NoteTXT1.2.840.995139.1.13.104.2.7.2.116177|2 [id number] for patient bxuo87391-0NafiEMKPKSXKKXGYuoxuqvwg C-CDA narrative text[id number] CISNEROSHRMBTNFKKRIPX6385-85-77Z74:54:391.2.840.44721 0.1.72.3.15|1.2.840.797723.1.13.104.2.7.2.727 [id number] [facility] 2024-02-10 11:55:54 z2fkIkB6EGUKE+OZ6XNpmWE+NT8+HKv6sorvk2n+ HHrh9 ChQznSr06fZktMlEhRo9045-15-36F18:55:54Formatt ing of this note might be different from the original.Pt states he is dizzy when he walks and has pain.Pt reports having these symptoms for months. 10001-3Oprvsnfdu department Triage odpyKO2995-95-24Q33:58:28[facility] Triage noteTXT1.2.840.060885.1.13.104.2.7.2.056539|2 [id number] for patient upmh44125-6Borggacdx department NoteLNNARRATIVEFormatted C-CDA narrative [id number] HUSSEIN[id number] EXNBVLCKSUSGV3676-42-05V54:58:281.2.840.01016 0.1.72.3.15|1.2.840.186477.1.13.104.2.7.2.727 [id number] Merry Wise RN [facility] 2024-02-09 21:15:50 udX+jbz2t4c/NcmUsAq0jnv9bESu3K1iIH22K1bl FeHXP 2w+IrduqkFDkKYNwsUT9966-33-54S48:15:50Formatt ing of this note might be different [...] w/d, pt leaving in no apparent distress, 83471-8Qyirpjees department BnhcDA1177-97-22F48:17:06[facility] department NoteTXT1.2.840.061730.1.13.104.2.7.2.744812|2 [id number] for patient wsrs80274-7YtzrCLAVCUOKMHADihcbglvw C-CDA narrative [id number] R Shehadeh RN[id number] PAKJKIYNILDHM2328-67-34L78:17:061.2.840.50249 0.1.72.3.15|1.2.840.768203.1.13.104.2.7.2.727 [id number] Chelsea Jackson RN [facility] 2024-02-09 21:08:09 6rWayWXBQjwnGuFeHhbjRuKjsL9qaQSJf5jwkZV+ 9HEVf +dJRqSrEECiWxs4GThL9706-80-00B08:08:09Formatt ing of this note might be different from the original.Pt has been discharged for several hours. He is being loaded into a WC at this time to wait in lobby. He asked nursing to call red Qiu. Ms. Gonzalez states that her and her friend are trying to find him a custodial. At this pt being placed in the lobby. [address]-[address] QgcmFP1919-10-38A18:10:35[facility] NoteTXT1.2.840.446952.1.13.104.2.7.2.569765|2 [id number] for patient fzwc27693-0PainNHKZLGVVXYTKjpxymxth C-CDA narrative text[id number] AENCYGMQZNVSS0167-84-58N35:10:351.2.840.01546 0.1.72.3.15|1.2.840.972541.1.13.104.2.7.2.727 [id number] [facility] 2024-02-09 14:20:00 fzj+KHw3IJP0ZOSyBGmJ7BGa8i8mmwmL+OGkjZPo e2xcv /MS+Zyx6f2/E28eCQXs7549-78-50F31:20:00Formatt ing of this note might be different from the original.Patient c/o lower back pain. Denies injury [address]-1Enfvdwh[address] RdhhAS5866-60-16R18:35:03[facility] NoteTXT1.2.840.301744.1.13.104.2.7.2.412272|2 [id number] for patient hywk01515-3NbjlVWNBIICRRLKPotwpotqq C-CDA narrative text[id number] ZCNFGQBPWFKON3941-45-86A28:35:031.2.840.53603 0.1.72.3.15|1.2.840.120144.1.13.104.2.7.2.727 [id number] [facility] 2024-02-09 14:01:15 VlcTGWFMratalxnzD96hQscszhDrlqhHB2rvfNd2 XHjw6 0maFQD2uyqadQEiRU0Q5223-53-17V25:01:15Formatt ing of this note might be different from the original.Patient transported by [facility], patient c/o back pain and needed to be cleaned up. Patient is homeless and incontinent of urine. [address]-4Caeepknkt department Triage vohdAP3830-35-20S44:02:01[facility] Triage noteTXT1.2.840.569217.1.13.104.2.7.2.807946|2 [id number] for patient unto09661-3Qpkehliun department NoteLNNARRATIVEFormatted C-CDA narrative [id number] S Cryer RNUT[address] StreetJh[id number] LQXUSRVRLALBG0971-53-70U03:02:011.2.840.20400 0.1.72.3.15|1.2.840.791043.1.13.104.2.7.2.727 [id number] Quinn Moyer RN [facility] 2024-02-09 13:59:00 OmKE0V4BvXtNSaQhZtR9wCpRfIDOT11v+JDVExPZ 803in C2Yqz3IhnQ9Zh2bL0fd8447-69-77P65:59:00Formatt ing of this note is different from the original.Images from the original note were not included.[facility] Emergency Department NotePatient Name: Raj Mackey of : 1955 69 year old maleTreatment Room: Room/bed info not foundMedical Record Number: [id number] Care Physician: Rakesh Oh Escorted by: Self [9]Mode of Arrival: EMS - [facility] ([place]) [43]EMS Treatment Prior to ED Arrival:SHOP ESTIMATOR treatment: Saline lockTravel and Exposure Screening:SymptomsDoes patient have any of these symptoms?: (not recorded)Exposure ScreeningHas patient had contact with someone with a communicable disease in the last month?: (not recorded)Diseases exposed to:: (not recorded)Is Patient ?: (not recorded)Exposure Date: (not recorded)Chief Complaint:Chief ComplaintPatient presents withBack PainHistory of Present Illness:Patient was sleeping on a cot by a [employer] store and bystanders called EMS for a [...] exam 12/01/2019Added automatically from request for surgery [id number] of both legs 02/28/2020Erectile dysfunction, unspecified erectile dysfunction type 02/28/2020Essential hypertension 02/28/2020HTN (hypertension)HyperlipidemiaObesity (BMI 30-39.9) 03/17/2019Psoriasiform dermatitis 1Stroke 2017Type 2 diabetes mellitus with vascular disease 10/12/2019Upper respiratory tract infection, unspecified type 10/12/2019Tetanus received in last 5 years: NoChildhood immunizations: Af-ak-rfuhDsrouesar:No Known AllergiesPast Social History:Tobacco UseNever smoked or used smokeless tobacco.Alcohol UseNo.Drug UseNo.Past Surgical History:Past Surgical History:Procedure Laterality DateCOLONOSCOPY N/A 12/30/2019Surgeon: Glo Finn MD; [facility] LocationCORNEAL TRANSPLANT,LAMELLAR BilateralKNEE [id number] KERATOPLASTYPHACOEMULSIFICATION OF CATARACT WITH INTRAOCULAR LENS IMPLANT Right 03/17/2019Surgeon: Virgil Martinez MD; [facility] [place]:Review of SystemsConstitutional: Positive for activity [...] 15 mgFirst Provider Eval:ED EventsDate/Time Event User Bhfrpyuu08/19/24 1400 Medical Screening Begins TARA IRELAND MD [...] (two) times daily with meals.MISCELLANEOUS MEDICAL SUPPLY [facility] E11.8: dispense Insulin Syringe 31 gauge brand [...] medications on fileFollow-up:Electronically signed by:Tara Ireland MD02/09/241709 11617-2Qtjnsrjdv Emergency department XrfrZA1325-81-77F58:10:50Physician Emergency department NoteTXT1.2.840.455533.1.13.104.2.7.2.579344|2 [id number] for patient voys47544-6Qjoywdvxl department NoteLNNARRATIVEFormatted C-CDA narrative text[address] Qymi[id number] LHIZOOAZDHWAX9185-49-12Z91:10:501.2.840.88262 0.1.72.3.15|1.2.840.038086.1.13.104.2.7.2.727 [id number] [facility] 2024-02-06 11:48:50 CKoy81zGKxzBsUBTAQdK7dA/7FOqrM4wFQTV9xgG iqm+A Hdp4LSiiYy8Ii4rCYOx6143-72-85E90:48:50Formatt ing of this note might be different from the original.Written/verbal d/c instructions, out of er via wheelchair, pt requests [facility] PD to call [place] [employer], states [employer] told him they would give him a ride back to [employer] to get his cart that he uses to walk, states [employer] hid his cart behind the building while [facility] transported to hospital, [facility] [place]. [address]-7Mufzpxvaq department XryfLR6655-12-23V59:50:36Emergen department NoteTXT1.2.840.762750.1.13.104.2.7.2.574267|2 [id number] for patient baxt71171-8GylzVKXBKHUBFMQDoqlmbxqr C-CDA narrative [id number] M. Barton RNUT[address] Stewart StreetNrovLolhjnufbCqelcdknwFDCC4745724995KJPDLFEGL ZWNSRPNSATUMF1963-30-80H53:50:361.2.840.08185 0.1.72.3.15|1.2.840.189764.1.13.104.2.7.2.727 [id number] Zarina Martin RN [facility] 2024-02-06 09:24:07 Ness/Jorge/teL6sx14WP1nU92UKuiU5rrYiXgnhVMjfe YsdJO 2U06LRmCwOelLdhrSha9129-08-49C70:24:07Formatt ing of this note might be different from the original.[place] ems states: "Pt is coming in for chronic back pain. He's had it for over a month now. He's homeless. Has a history of stroke. He does have a cut on his finger that he might need an antibiotic for. His bgl was 202. The police said to call him when he gets discharged and he would take him back to outside of [facility] where he is living. The copping machine operator also gave him 20 dollars so he should have some money for an antibiotic" 14133-9Tsdpaoxbj department Triage znhmHB4787-77-53Z31:26:33[facility] department Triage noteTXT1.2.840.437214.1.13.104.2.7.2.457896|2 [id number] for patient iawn81837-0Uiqguzwum department NoteLNNARRATIVEFormatted C-CDA narrative [id number] M Cruz RN[address] HlnfMagsoafjmTbioysgrrJXST8126709443ECQJGLXFI OPHQQIIIZLKFU0608-21-21P95:26:331.2.840.13487 0.1.72.3.15|1.2.840.739841.1.13.104.2.7.2.727 [id number] Vandana Gallegos RN [facility] 2024-02-06 09:16:00 UCYbtxM6bC8fTr2dgIs0NWyaqLzFBq19pZI5vvmA Cipmq QFphLwyq1qpPIiuz6rF7506-77-72D11:16:00Formatt ing of this note is different from the original.Images from the original note were not included.[facility] Emergency Department NotePatient Name: Raj Mackey of : 1955 69 year old maleTreatment Room: [place] [address]Medical Record Number: [id number] Care Physician: Rakesh Oh Escorted by: Self [9]Mode of Arrival: EMS - [facility] ([place]) [43]EMS Treatment Prior to ED Arrival:Travel and [...] He is currently homeless and lives by [employer] store. He was brought in by the PDt and PD states that they "will pick him up and [place] [employer] at [place]"History provided by: Patient and medical recordsLanguage reconsignment clerk used: NoPast Medical History/Immunizations:Past Medical History:Diagnosis DateAcute midline low back pain without sciatica 01/18/2020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) 10/12/2019CataractOS ONLYCellulitis of foot, left 04/12/2020DiabetesDiabetic eye exam 12/01/2019Added automatically from request for surgery [id number] of both legs 02/28/2020Erectile dysfunction, unspecified erectile dysfunction type 02/28/2020Essential hypertension 02/28/2020HTN (hypertension)HyperlipidemiaObesity (BMI 30-39.9) 03/17/2019Psoriasiform dermatitis 1Stroke 2017Type 2 diabetes mellitus with vascular disease 10/12/2019Upper respiratory tract infection, unspecified type 10/12/2019Allergies:No Known AllergiesPast Social History:Tobacco UseNever smoked or used smokeless tobacco.Alcohol UseNo.Drug UseNo.Past Surgical History:Past Surgical History:Procedure Laterality DateCOLONOSCOPY N/A 12/30/2019Surgeon: Glo Finn MD; [facility] BilateralKNEE [id number] KERATOPLASTYPHACOEMULSIFICATION OF CATARACT WITH INTRAOCULAR LENS IMPLANT Right 03/17/2019Surgeon: Virgil Martinez MD; [facility]:Review of SystemsMusculoskeletal: Positive for back [...] Hearing normal.Left Ear: Hearing normal.Nose: Nose normal.Mouth/Throat:Lips: [place].Mouth: Mucous membranes are dry.Pharynx: Oropharynx is clear. [...] mg tabletFirst Provider Eval:ED EventsDate/Time Event User Bwppejcw62/16/24925 Medical Screening Begins DESTINY MULLER --02/06/24925 First Provider Evaluation DESTINY MULLER --ED COURSEED Course as of 02/06/24 1137Sat Feb [id number] MUCOUS(!): Slight [KV]1129 PROTEIN(!): 30 mg/dL [KV]1129 KETONES(!): 20 mg/dL [KV]1129 GLU U QUAL(!): 50 mg/dL [KV]1050 Cyclobenzaprine helped lumbar symptoms. Awaiting UA results [KV]1032 Imaging spine 2 view is negative for any new osseous lesions. Awaiting UA results [KV]ED Course User Index[KV] Destiny Muller, NPDiagnosis/Impression as of 02/06/24 1137Chronic bilateral low [...] Use as directedLANCETS (TRUEPLUS LANCETS) 33 GAUGE [facility] Monitor Blood Glucose dailyLISINOPRIL-HYDROCHLOROTHIAZIDE 10-12.5 MG PER TABLET Take 1 tablet by mouth once dailyMETFORMIN 1,000 MG TABLET Take 1 tablet by mouth 2 (two) times daily with meals.MISCELLANEOUS MEDICAL SUPPLY [facility] E11.8: dispense Insulin Syringe 31 gauge brand [...] 11:41 AM CDT I have reviewed the PA/DIRECTOR DIETETICS DEPARTMENT's note and plan of care. I was available for consultation as needed at all times during the patient's visit in the emergency department. I agree with the clinical impression, plan and disposition.97710-0Jrfcwovri Emergency department [id number], Yasin1.2.840.313509.1.13.104.2.7.2.515105Bmty aQfopnDM4187-70-23W32:41:33[facility] NoteTXT1.2.840.742416.1.13.104.2.7.2.214567|2 [id number] for patient zevw27738-7Kcdmybnxc department NoteLNNARRATIVEFormatted C-CDA narrative textUT[address] DngjJ[id number] IPKURYFGLMAZM4173-39-50Z14:41:331.2.840.81669 0.1.72.3.15|1.2.840.440134.1.13.104.2.7.2.727 [id number] [facility] 2024-01-30 14:56:27 upRzRUwCucMHb6v+CSIbyKL5bT44o4RCMLV4k7V6 9Njof QC09uUmtRtPYh0fOrxu1276-89-60W46:56:27Formatt ing of this note might be different from the original.Pt given discharge instructions on flank pain. Pt given prescription X 2 for bentyl and tinazadine. Pt advised to follow up with pcp. 45447-1Vkxazqmzm department DqohKX2797-44-22E19:01:55[facility] department NoteTXT1.2.840.540447.1.13.104.2.7.2.462957|2 [id number] for patient ehsp05969-5HwabUILSMNZARIQRzqugwvju C-CDA narrative jchd602413015Wuybh M El HENSONUT[address] Robertson [id number] WLUECUQEUPPFQ2922-09-02A22:01:551.2.840.25442 0.1.72.3.15|1.2.840.563223.1.13.104.2.7.2.727 [id number] Vandana Carrero El HENSON [facility] 2024-01-30 10:04:33 nzHRskAY0Ld8GxTk1ypfhO+7LhNgTzj5o5AZC33A 1Me6h X6DNeG00/61oQ1uZE4T4229-91-80E20:04:33Formatt ing of this note might be different [...] is homeless and called [facility] [place] the [employer]. 58264-7Jzmkfabkt department Triage ruzqLO8363-05-34W89:05:50[facility] department Triage noteTXT1.2.840.743321.1.13.104.2.7.2.313997|2 [id number] for patient hwce94970-3Esgkqqupl department NoteLNNARRATIVEFormatted C-CDA narrative tfzo139246382Hmxtdvhnavjot Barrios RNUT[address] [id number] OBJNHUVMSQXTK4013-57-63F96:05:501.2.840.32312 0.1.72.3.15|1.2.840.664598.1.13.104.2.7.2.727 [id number] Nimisha Barrios RN [facility] 2024-01-14 21:46:53 43eYWnYSdL++K1SsZ4zqx9lOH0yZec1N/MZJnn4T NQD0o sUfBwWk+sBbXG4Krz+p9848-28-39A96:46:53Formatt ing of this note might be different [...] unlabored, skin w/d, in no apparent distress, 86256-8Yrdolzryd department TidaTY0378-23-64V78:48:20Emergency department NoteTXT1.2.840.181783.1.13.104.2.7.2.100676|2 [id number] for patient zhcg95642-3FzhaAXTVUAOLWKEDwszhplxs C-CDA narrative evol190544351Sgqzzl-Gevnm McInnis RNUT[address] KsdnAyyffwrefCjdcjmtqdAMHD9973861134JTFMUXEMO XWZRTEMMVGLGD2903-83-95V71:48:201.2.840.98489 0.1.72.3.15|1.2.840.036344.1.13.104.2.7.2.727 [id number] Dennis Varghese RN [facility] 2024-01-14 21:14:37 eqxPHa2LBMgvnxEcl+FP9FlP5DGFJiDBpT+2aEBS s71Wo 72WgV8uwzJ13ixiU44H5229-19-51J16:14:37Formatt ing of this note might be different from the original.CC: Back here again for low back pain since beginning of the month. Pt states he may have fallen on the floor but doesn't have any memory of it. He thinks it may be because he doesn't get much sleep being homeless. Pt requesting "pain killer." Denies changes in urinationPMHx: SI0Vsnkn, alert, oriented, resp reg unlabored, skin warm, color appropriate for race, moves all ext without difficultyBLG by EMS 374. [facility] signed by Chelsea Jackson RN at 01/14/2024 9:19 PM PMM86983-4Iankspvfn department Triage tvbrOK1021-89-92Q93:19:14[facility] department Triage noteTXT1.2.840.397456.1.13.104.2.7.2.054046|2 [id number] for patient dujg18966-1Kdxsqiaeg department NoteLNNARRATIVEFormatted C-CDA narrative epvz533144830Dnjaop R Shehadeh RN[address] Moeo[id number] VHKGMRJBNMHLY3991-83-98K97:19:141.2.840.33770 0.1.72.3.15|1.2.840.766830.1.13.104.2.7.2.727 [id number] Chelsea Jackson RN [facility] 2024-01-05 06:35:49 qLfLuxJgVqhsE4zzESwRvDMRAVlxkUIGOo+j6mv0 BgnVt x0fXr+fqI+83QczEG7B4075-05-46I24:35:49Formatt ing of this note might be different from the original.CC: lower back pain x 1 week. "I think it was the mattress I was sleeping on." Pt denies urinary symptoms. Pt didn't attempt OTC PTAPMHx: noneAwake, alert, oriented, resp reg unlabored, skin warm, color appropriate for race, moves all ext without difficulty, amb with slumpped gait. 21762-8Yudhavfax department Triage fmrqIB7785-98-75J54:41:21[facility] department Triage noteTXT1.2.840.093812.1.13.104.2.7.2.479703|2 [id number] for patient kuew80150-4Avaozwoec department NoteLNNARRATIVEFormatted C-CDA narrative gmry653703168Jkwjcd R Shehadeh RN[address] DeoiToorejuthYjfknuaguEYHK3037139016GODPAKKCY IGYYVTOHLOVOF5061-39-30F37:41:211.2.840.39875 0.1.72.3.15|1.2.840.941478.1.13.104.2.7.2.727 [id number] Chelsea Jackson RN [facility] 2024-01-05 06:31:00 m0Vtyhn4K1q8EhRMiS5es7RqlSA6dyilD2xmBj+7 dpfSA LBq8bZGhMRUfgczVKjl0730-57-22Q91:31:00Formatt ing of this note is different from the original.[facility] Emergency Department NotePatient Name: Raj Mackey of : 1955 69 year old maleTreatment Room: [place] [address]/ONTJ50-63Dhattkg Record Number: [id number] [facility] [place] Physician: Tl ArandaPatient Escorted by: Self [9]Mode of Arrival: Personal means [1]EMS Treatment Prior to ED Arrival: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 He has not tried any bhzd-umt-fdcslxo medications as he does not like to [...] exam 12/01/2019Added automatically from request for surgery [id number] of both legs 02/28/2020Erectile dysfunction, unspecified erectile dysfunction type 02/28/2020Essential hypertension 02/28/2020HTN (hypertension)HyperlipidemiaObesity (BMI 30-39.9) 03/17/2019Psoriasiform dermatitis 1Stroke 2017Type 2 diabetes mellitus with vascular disease 10/12/2019Upper respiratory tract infection, unspecified type 10/12/2019Tetanus received in last 5 years: UnknownAllergies:No Known AllergiesPast Social History:Tobacco UseNever smoked or used smokeless tobacco.Alcohol UseNo.Drug UseNo.Past Surgical History:Past Surgical History:Procedure Laterality DateCOLONOSCOPY N/A 12/30/2019Surgeon: Glo Finn MD; [facility]LAMELL[facility] BilateralKNEE [id number] KERATOPLASTYPHACOEMULSIFICATION OF CATARACT WITH INTRAOCULAR LENS IMPLANT Right 03/17/2019Surgeon: Virgil Martinez MD; [facility]Review [facility]:Review of SystemsConstitutional: Negative for chills [...] 600 mgFirst Provider Eval:ED EventsDate/Time Event User Allyidse46/13/24 0712 Medical Screening Begins JACKIE DIAZ DO [...] Use as directedLANCETS (TRUEPLUS LANCETS) 33 GAUGE [facility] Monitor Blood Glucose dailyLISINOPRIL-HYDROCHLOROTHIAZIDE 10-12.5 MG PER TABLET Take 1 tablet by mouth once dailyMETFORMIN 1,000 MG TABLET Take 1 tablet by mouth 2 (two) times daily with meals.MISCELLANEOUS MEDICAL SUPPLY [facility] E11.8: dispense Insulin Syringe 31 gauge brand [...] on fileFollow-up:Electronically signed by:Jackie Diaz DO01/05/24 0742 91281-4Zzfihubru Emergency department PnbuPP3403-31-78T82:42:01Physician Emergency department NoteTXT1.2.840.732027.1.13.104.2.7.2.383674|2 [id number] for patient dmbg49866-9Vvqjkztpb department NoteLNNARRATIVEFormatted C-CDA narrative textUT[address] UukrC[id number] LYLTPLJMGBKTD0962-51-53R93:42:011.2.840.10181 0.1.72.3.15|1.2.840.693046.1.13.104.2.7.2.727 [id number] [facility]
[2024-04-12 19:04] LABS: Absolute Eosinophils 0.1 K/uL (0-0.5); Absolute Lymphocytes (CBC) 1.3 K/uL (0.7-4.9); Absolute Monocytes 0.9 K/uL (0.1-1.3); Absolute Neutrophil 6.5 K/uL (1.8-8.0); Basophils % 0.4 % (0-1.3); Eosinophils % 0.9 % (0-4.4); Hematocrit 32.1 % (39.6-49.0); Hemoglobin 10.8 g/dL (13.6-17.9); Lymphocytes % 14.6 % (15.3-44.8); MCHC 33.7 g/dL (32.0-36.0); MPV 7.7 fL (7.6-11.3); Monocytes % 10.3 % (3.3-12.3); Neutrophils % 73.8 % (41.7-73.7); Platelets 347 thou/uL (152-406); RBC Red Blood Cell Count 3.61 M/uL (4.33-5.43); Red Cell Distribution Width 13.1 % (12.1-15.2)
[2024-04-12] MEDS ORDERED: KETOROLAC 30 MG/ML INJ ONE (19:14)
[2024-04-12] MEDS ORDERED: ACETAMINOPHEN 500 MG TAB ONE (19:14)
[2024-04-12 19:41] LABS: Anion Gap 8.6 mEq/L (5.0-15.0); Potassium 4.6 mEq/L (3.5-5.1)
[2024-04-12 19:58] LABS: Specific Gravity 1.026 (1.005-1.030); Sqamous Epithelial None Seen /HPF (None Seen); Urine Bacteria None Seen /HPF (<20); Urine Bilirubin NEGATIVE (Negative); Urine Blood Negative (Negative); Urine Clarity Clear (Clear); Urine Color Colorless (Yellow); Urine Culture Reflex Order NOT NEEDED; Urine Glucose 4+ (Over) (Negative); Urine Ketones NEGATIVE (Negative); Urine Micro Reflex YN NO BILL MICROSCOPIC; Urine Mucus Slight /HPF (None Seen); Urine Nitrite NEGATIVE (Negative); Urine Protein NEGATIVE (Negative); Urine RBC <5 /HPF (None Seen); Urine Urobilinogen Normal (Normal); Urine WBC <5 /HPF (<5); Urine pH 6.5 (5.0-7.0)
[2024-04-12] MEDS ORDERED: NA CHLORIDE 0.9% 1,000 ML ONE (20:09)
--- NOTE | 2024-04-12 21:37 | RAD REPORT ---
EXAM DESCRIPTION: CT - Pelvis W/Cont - 04/12/2024 8:05 pm CLINICAL HISTORY: buttock wound COMPARISON: No comparisons TECHNIQUE: Thin cut axial CT imaging of the pelvis was performed following intravenous administratio n of iodinated contrast. Multiplanar reformats were generated and reviewed. All CT scans are performed using dose optimization technique as appropriate and may include automated exposure control or mA/KV adjustment according to patient size. FINDINGS: Asymmetric subcutaneous soft tissue swelling and fat stranding along the left gluteal javan on most pronounced posteromedially and far laterally. Triangular fluid collection measuring 3.1 x 2.1 cm is seen along the lateral aspect of the gluteal region. No soft tissue gas or sinus tracts extend ing to the skin are noted. No dilated bowel loops or bowel wall thickening. No free air, free fluid or inflammatory stranding. N o hernia, mass or bulky lymphadenopathy. The urinary bladder is without significant finding. No suspicious bony findings. Degenerative changes of the hip joints and lower lumbar spine. IMPRESSION: Soft tissue swelling along the left gluteal region, with a small 3.1 cm fluid collection laterally in the subcutaneous soft tissues. This may represent a small seroma. Possibility of phlegm on/ abscess is less likely but not entirely excluded. .
[2024-04-12] MEDS ORDERED: INSULIN REGULAR (HUMAN) 100 UNIT/ML ONE (21:41)
--- NOTE | 2024-04-12 22:07 | EDPHYS ---
Physician Documentation [facility] Name: Edwin Linton Age: 69 yrs Sex: Male : 1955 Arrival Date: 04/12/2024 Time: 18:27 Bed 13 Private MD: ED Physician Yonis Araiza HPI: 04/12 18:46 This 69 yrs old Male presents to ER via EMS with complaints of Feet Swelling, ec2 Hand Swelling. 18:46 Patient arrives today for evaluation of chronic wounds. Patient reports he has wounds ec2 in the bilateral lower extremities. Patient reports hand swelling bilaterally as well as bilateral leg swelling. Patient also reports a buttock wound. No fevers or chills, no nausea or vomiting.. Historical: - Allergies: 18:53 No Known Allergies; iw - PMHx: 18:36 Cerebrovascular accident; diabetes mellitus; Hypercholesterolemia; Hypertensive iw disorder; - Immunization history:: Adult Immunizations not up to date. - Infectious Disease History:: Denies. - Social history:: Smoking status: Patient denies any tobacco usage or history of. ROS: 18:47 Constitutional: as per hpi ec2 Exam: 18:47 Constitutional: GEN: NAD Head: atraumatic Eyes: EOMI Ears: External ears are ec2 normal. CV: regular rate LUNGS: no respiratory distress ABD: non-distended SKIN: Chronic appearing bilateral lower extremity wounds. Lower buttock wound noted, scant amount of drainage noted. No underlying bone exposed. MSK: no evidence of trauma NEURO: moves all extremities equally 04/13 01:08 ECG was reviewed by the Attending Physician. EKG time 2159 normal sinus rhythm at the sp4 rate of 72, rightward axis otherwise normal Vital Signs: 04/12 18:52 BP 146 / 71; Pulse 74; Resp 18; Temp 98.2; Pulse Ox 96% on R/A; Pain 10/10; iw 19:45 BP 130 / 58; Pulse 81; Resp 17 S; Pulse Ox 96% on R/A; ha1 20:14 BP 141 / 66; Pulse 81; Resp 16 S; Pulse Ox 96% on R/A; ha1 21:00 BP 144 / 72; Pulse 76; Resp 16 S; Pulse Ox 100% on R/A; ha1 22:00 BP 143 / 78; Pulse 75; Resp 16 S; Pulse Ox 96% on R/A; ha1 23:00 BP 147 / 75; Pulse 69; Resp 17 S; Pulse Ox 98% on R/A; ha1 04/13 00:00 BP 136 / 70; Pulse 65; Resp 17 S; Pulse Ox 97% on R/A; ha1 01:00 Weight 88.45 kg; ha1 04/12 18:52 Pain Scale: Adult iw MDM: 04/12 18:40 Patient medically screened. ec2 18:47 Data reviewed: vital signs. ED course: Patient arrives today for evaluation of his ec2 wounds as well as bilateral hand and leg swelling. Examination remarkable skin findings as above. Will obtain lab work, CT imaging and treat the patient's pain with Toradol and Tylenol. Evaluating for states that she has cellulitis, chronic wounds doubt osteomyelitis. 19:54 ED course: CBC shows no leukocytosis, anemia noted, metabolic profile shows ec2 hyperglycemia with a blood sugar of 579, renal dysfunction with a creatinine 1.43 and GFR 53, BNP minimally elevated. . 20:14 Transition of care: After a detail discussion of the patient's case, care is sp4 transferred to Yonis Araiza MD. 22:08 ED course: EXAM DESCRIPTION: CT - Pelvis W/Cont - 04/12/2024 8:05 pm CLINICAL HISTORY: sp4 buttock wound COMPARISON: No comparisons TECHNIQUE: Thin cut axial CT imaging of the pelvis was performed following intravenous administration of iodinated contrast. Multiplanar reformats were generated and reviewed. All CT scans are performed using dose optimization technique as appropriate and may include automated exposure control or mA/KV adjustment according to patient size. FINDINGS: Asymmetric subcutaneous soft tissue swelling and fat stranding along the left gluteal region most pronounced posteromedially and far laterally. Triangular fluid collection measuring 3.1 x 2.1 cm is seen along the lateral aspect of the gluteal region. No soft tissue gas or sinus tracts extending to the skin are noted. No dilated bowel loops or bowel wall thickening. No free air, free fluid or inflammatory stranding. No hernia, mass or bulky lymphadenopathy. The urinary bladder is without significant finding. No suspicious bony findings. Degenerative changes of the hip joints and lower lumbar spine. IMPRESSION: Soft tissue swelling along the left gluteal region, with a small 3.1 cm fluid collection laterally in the subcutaneous soft tissues. This may represent a small seroma. Possibilit y of phlegmon/ abscess is less likely but not entirely excluded. . . 04/12 18:45 Order name: CBC with Diff; Complete Time: 19:54 ec2 04/12 18:45 Order name: BMP; Complete Time: 19:54 ec2 04/12 18:45 Order name: UAM; Complete Time: 20:06 ec2 04/12 18:45 Order name: BNP; Complete Time: 19:54 ec2 04/12 21:23 Order name: Troponin High Sensitivity; Complete Time: 00:23 sp4 04/12 21:48 Order name: Glucose, Ancillary Testing; Complete Time: 22:03 EDMS 04/12 22:12 Order name: Blood Culture Adult (2) sp 04/12 23:02 Order name: Glucose, Ancillary Testing; Complete Time: 00:23 EDMS 04/13 00:17 Order name: Basic Metabolic Panel; Complete Time: 00:23 EDMS 04/13 01:10 Order name: Hemoglobin A1c; Complete Time: 06: EDMS 04/13 03:05 Order name: Glucose, Ancillary Testing; Complete Time: 06:26 EDMS 04/13 04:39 Order name: CBC with Automated Diff; Complete Time: 06:26 EDMS 04/13 04:39 Order name: Basic Metabolic Panel; Complete Time: 06:26 EDMS 04/13 04:46 Order name: Phosphorus; Complete Time: 06:26 EDMS 04/13 04:46 Order name: Lipid Profile; Complete Time: 06:26 EDMS 04/13 07:00 Order name: Glucose, Ancillary Testing EDMT 04/13 08:14 Order name: Glucose, Ancillary Testing EDMS 04/13 08:30 Order name: Basic Metabolic Panel EDMS 04/13 13:11 Order name: Glucose, Ancillary Testing EDMS 04/12 18:45 Order name: CT Pelvis w cont; Complete Time: 22:03 ec2 04/13 09:56 Order name: US EDMT 04/12 21:23 Order name: EKG; Complete Time: 21:23 sp4 04/12 21:23 Order name: EKG - Nurse/Tech; Complete Time: 22:09 sp4 04/12 22:41 Order name: NPO; Complete Time: 22:56 sp4 EC/22 01:08 Rate is 72 beats/min. Rhythm is regular, Normal Sinus Rhythm. Right axis deviation sp4 noted. [place] interval is normal. QRS interval is normal. QT interval is normal. No Q waves. T waves are Normal. No ST changes noted. Clinical impression: No evidence of ischemia. Interpreted by me. Reviewed by me. Administered Medications: 04/12 19:18 Drug: Ketorolac IVP 15 mg IVP once Route: IVP; Site: left antecubital; iw 20:00 Follow up: Response: No adverse reaction; Marked relief of symptoms ha1 19:18 Drug: Acetaminophen PO 1000 mg PO once Route: PO; iw 20:00 Follow up: Response: No adverse reaction; Marked relief of symptoms ha1 19:18 Drug: NS 0.9% IV 1000 ml IV at 1 bolus Per protocol; 1000 mL bolus Route: IV; Rate: 1 iw bolus; Site: left antecubital; 22:55 Follow up: Response: No adverse reaction; IV Status: Completed infusion; IV Intake: ha1 1000ml 20:13 Drug: NS 0.9% IV 1000 ml IV at 1 bolus Per protocol; 1000 mL bolus Route: IV; Rate: 1 ha1 bolus; Site: left antecubital; 22:50 Follow up: Response: No adverse reaction; IV Status: Completed infusion; IV Intake: ha1 1000ml 21:43 Drug: Insulin Regular Human IVP 10 units IVP once {Co-Signature: mb9 (Adriana Nolen [facility] Merry HENSON).} Route: IVP; Site: left antecubital; 22:45 Follow up: Response: No adverse reaction; Blood sugar is lowered ha1 22:50 Drug: ceFAZolin IVPB 1 grams 50 ml IVPB once over 30 mins Volume: 50 ml; Route: IVPB; ha1 Infused Over: 30 mins; Site: left antecubital; 23:20 Follow up: Response: No adverse reaction; IV Status: Completed infusion; IV Intake: ha1 100ml 23:00 Drug: NS 0.9% IV 1000 ml IV at 125 ml/hr continuous Route: IV; Rate: 125 ml/hr; Site: ha left antecubital; 23:50 Follow up: Response: No adverse reaction; IV Status: Infusion continued; IV Intake: ha1 200ml 23:50 Drug: vancoMYCIN IVPB 2 grams IVPB at calculated rate once Route: IVPB; Rate: ha1 calculated rate; Site: left antecubital; 04/13 00:10 Follow up: Response: No adverse reaction; IV Status: Infusion continued ha1 01:25 Follow up: Response: No adverse reaction; IV Status: Completed infusion; IV Intake: ha1 500ml Disposition Summary: 04/12/24 22:06 Hospitalization Ordered Notes: Hospitalization Status: Observation sp4 Provider: Nakul Mcconnell sp4 Condition: Fair sp4 Problem: new sp4 Symptoms: have improved sp4 Bed/Room Type: Standard sp4 Location: [facility] ER HOLD(04/13/24 00:52) rv1 Room Assignment: ERHOLD-(04/13/24 00:52) rv1 Diagnosis - Dehydration sp4 - Uncontrolled diabetes, hyperglycemia, acute on chronic renal insufficiency, sp4 moderate dehydration, generalized weakness, right buttocks pressure ulcer - Left buttock pressure ulcer sp4 Forms: - Medication Reconciliation Form sp4 - SBAR form sp4 - Leadership Thank You Letter sp4 Signatures: Dispatcher [employer] Rupa Falcon RN RN Carla Nascimento RN RN ha1 Libby Moran rv1 Yonis Araiza MD MD sp4 Robert Yost MD MD 2 Adriana Nolen RN mb9 Corrections: (The following items were deleted from the chart) 04/12 18:45 18:45 CBC+H.LAB.BRZ ordered. EDMS EDMS 18:45 18:45 BASIC METABOLIC PANEL+C.LAB.BRZ ordered. EDMS EDMS 18:45 18:45 Urinalysis W/Microscopic+U.LAB.BRZ ordered. EDMS EDMS 18:45 18:45 Pelvis W/Cont+CT.RAD.BRZ ordered. EDMS EDMS 22:12 22:12 BLOOD CULTURE*+BA.LAB.BRZ ordered. EDMS EDMS 04/13 00:52 04/12 22:06 Telemetry/MedSurg (observation) sp4 rv1 04/13 00:52 04/12 22:06 sp4 rv1
--- NOTE | 2024-04-12 22:07 | ER ---
Nurse's Notes [facility] Name: Edwin Linton Age: 69 yrs Sex: Male : 1955 Arrival Date: 04/12/2024 Time: 18:27 Bed 13 Private MD: Diagnosis: Dehydration;Uncontrolled diabetes, hyperglycemia, acute on chronic renal insufficiency, moderate dehydration, generalized weakness, right buttocks pressure ulcer;Left buttock pressure ulcer Presentation: 04/12 18:35 Chief complaint: EMS states: toned out for radhika had and foot swelling, was being treated iw for a fungal infection. Coronavirus screen: At this time, the client does not indicate any symptoms associated with coronavirus-19. Ebola Screen: Patient negative for fever greater than or equal to 101.5 degrees Fahrenheit, and additional compatible Ebola Virus Disease symptoms Patient denies exposure to infectious person. Patient denies travel to an Ebola-affected area in the 21 days before illness onset. No symptoms or risks identified at this time. Initial Sepsis Screen: Does the patient meet any 2 criteria? No. Patient's initial sepsis screen is negative. Does the patient have a suspected source of infection?. Risk Assessment: Do you want to hurt yourself or someone else? Patient reports no desire to harm self or others. 18:35 Method Of Arrival: EMS: [facility] iw 18:35 Acuity: ROLAND 3 iw 18:52 Onset of symptoms was April 12, 2024. iw Historical: - Allergies: 18:53 No Known Allergies; iw - PMHx: 18:36 Cerebrovascular accident; diabetes mellitus; Hypercholesterolemia; Hypertensive iw disorder; - Immunization history:: Adult Immunizations not up to date. - Infectious Disease History:: Denies. - Social history:: Smoking status: Patient denies any tobacco usage or history of. Screenin:15 [facility] ED Fall Risk Assessment (Adult) History of falling in the last 3 months, ha1 including since admission Yes- single mechanical fall (1 pt) Confusion or Disorientation Yes (5 pts) Intoxicated or Sedated No (0 pts) Impaired Gait Yes (1 pt) Mobility Assist Device Used Yes (1 pt) Altered Elimination No (0 pt) Score/Fall Risk Level 3 or more points = High Risk Oriented to surroundings, Maintained a safe environment, Educated pt \T\ family on fall prevention, incl call for assistance when getting out of bed, Provided non-skid footwear, Hourly rounding (assess needs \T\ fall precautionary measures) done. 20:08 Abuse screen: Denies threats or abuse. Denies injuries from another. Nutritional ha1 screening: No deficits noted. Tuberculosis screening: No symptoms or risk factors identified. Assessment: 18:53 General: Appears in no apparent distress. Behavior is calm, cooperative. Pain: iw Complains of pain in right hand, left hand, right leg and left leg. Neuro: Level of Consciousness is awake, alert, obeys commands, Oriented to person, place, time, situation. Cardiovascular: Patient's skin is warm and dry. Edema. Respiratory: Respiratory effort is even, unlabored, Respiratory pattern is regular. Derm: Skin Wound noted Decubitus located on right sacrum approximately 2.6 cm to 7.5 cm is stage II is draining small amount. Musculoskeletal: Range of motion: intact in all extremities. 19:47 General: Appears comfortable, Behavior is calm, cooperative. Pain: Complains of pain in ha1 right leg Pain does not radiate. Pain currently is 4 out of 10 on a pain scale. Quality of pain is described as aching, Pain began gradually. Neuro: Level of Consciousness is awake, alert, obeys commands, Oriented to person, place, time, situation. Cardiovascular: Capillary refill < 3 seconds Patient's skin is warm and dry. Respiratory: Airway is patent Respiratory effort is even, unlabored, Respiratory pattern is regular, symmetrical. Derm: Wound noted right foot. Musculoskeletal: Range of motion: intact in all extremities. 20:14 Reassessment: Patient and/or family updated on plan of care and expected duration. Pain ha1 level reassessed. Patient is alert, oriented x 3, equal unlabored respirations, skin warm/dry/pink. 21:00 Reassessment: Patient and/or family updated on plan of care and expected duration. Pain ha1 level reassessed. Patient is alert, oriented x 3, equal unlabored respirations, skin warm/dry/pink. 22:00 Reassessment: Patient and/or family updated on plan of care and expected duration. Pain ha1 level reassessed. Patient is alert, oriented x 3, equal unlabored respirations, skin warm/dry/pink. 23:00 Reassessment: Patient and/or family updated on plan of care and expected duration. Pain ha1 level reassessed. Patient is alert, oriented x 3, equal unlabored respirations, skin warm/dry/pink. 04/13 00:00 Reassessment: Patient and/or family updated on plan of care and expected duration. Pain ha1 level reassessed. Patient is alert, oriented x 3, equal unlabored respirations, skin warm/dry/pink. Vital Signs: 04/12 18:52 BP 146 / 71; Pulse 74; Resp 18; Temp 98.2; Pulse Ox 96% on R/A; Pain 10/10; iw 19:45 BP 130 / 58; Pulse 81; Resp 17 S; Pulse Ox 96% on R/A; ha1 20:14 BP 141 / 66; Pulse 81; Resp 16 S; Pulse Ox 96% on R/A; ha1 21:00 BP 144 / 72; Pulse 76; Resp 16 S; Pulse Ox 100% on R/A; ha1 22:00 BP 143 / 78; Pulse 75; Resp 16 S; Pulse Ox 96% on R/A; ha1 23:00 BP 147 / 75; Pulse 69; Resp 17 S; Pulse Ox 98% on R/A; ha1 04/13 00:00 BP 136 / 70; Pulse 65; Resp 17 S; Pulse Ox 97% on R/A; ha1 01:00 Weight 88.45 kg; ha1 04/12 18:52 Pain Scale: Adult iw ED Course: 04/12 18:35 Patient arrived in ED. iw 18:36 Triage completed. iw 18:40 Robert Yost MD is Attending Physician. ec2 18:53 Arm band placed on. iw 18:53 Initial lab(s) drawn, by me, sent to lab. Maintain EMS IV. Dressing intact. Good blood iw return noted. Site clean \T\ dry. Gauge \T\ site: 20 LAC. 19:00 Patient has correct armband on for positive identification. Placed in gown. Bed in low ha1 position. Call light in reach. Side rails up X 1. 19:45 Carla Nascimento RN is Primary Nurse. ha1 20:07 CT Pelvis w cont In Process Unspecified. EDMS 20:14 Attending Physician role handed off by Robert Yost MD sp4 20:14 Yonis Araiza MD is Attending Physician. sp4 22:04 EKG done, by ED staff, reviewed by Yonis Araiza MD. ty 22:05 Nakul Mcconnell MD is Hospitalizing Provider. sp4 04/13 00:00 Provided Education on: need for admit . ha1 00:00 No provider procedures requiring assistance completed. ha1 00:00 Patient admitted, IV remains in place. ha1 Administered Medications: 04/12 19:18 Drug: Ketorolac IVP 15 mg IVP once Route: IVP; Site: left antecubital; iw 20:00 Follow up: Response: No adverse reaction; Marked relief of symptoms ha1 19:18 Drug: Acetaminophen PO 1000 mg PO once Route: PO; iw 20:00 Follow up: Response: No adverse reaction; Marked relief of symptoms ha1 19:18 Drug: NS 0.9% IV 1000 ml IV at 1 bolus Per protocol; 1000 mL bolus Route: IV; Rate: 1 iw bolus; Site: left antecubital; 22:55 Follow up: Response: No adverse reaction; IV Status: Completed infusion; IV Intake: ha1 1000ml 20:13 Drug: NS 0.9% IV 1000 ml IV at 1 bolus Per protocol; 1000 mL bolus Route: IV; Rate: 1 ha1 bolus; Site: left antecubital; 22:50 Follow up: Response: No adverse reaction; IV Status: Completed infusion; IV Intake: ha1 1000ml 21:43 Drug: Insulin Regular Human IVP 10 units IVP once {Co-Signature: [id number] ([facility] Merry HENSON).} Route: IVP; Site: left antecubital; 22:45 Follow up: Response: No adverse reaction; Blood sugar is lowered ha1 22:50 Drug: ceFAZolin IVPB 1 grams 50 ml IVPB once over 30 mins Volume: 50 ml; Route: IVPB; ha1 Infused Over: 30 mins; Site: left antecubital; 23:20 Follow up: Response: No adverse reaction; IV Status: Completed infusion; IV Intake: ha1 100ml 23:00 Drug: NS 0.9% IV 1000 ml IV at 125 ml/hr continuous Route: IV; Rate: 125 ml/hr; Site: ha1 left antecubital; 23:50 Follow up: Response: No adverse reaction; IV Status: Infusion continued; IV Intake: ha1 200ml 23:50 Drug: vancoMYCIN IVPB 2 grams IVPB at calculated rate once Route: IVPB; Rate: ha1 calculated rate; Site: left antecubital; 04/13 00:10 Follow up: Response: No adverse reaction; IV Status: Infusion continued ha1 01:25 Follow up: Response: No adverse reaction; IV Status: Completed infusion; IV Intake: ha1 500ml Medication: 04/12 18:53 VIS not applicable for this client. iw Intake: 22:50 IV: 1000ml; Total: 1000ml. ha1 22:55 IV: 1000ml; Total: 2000ml. ha1 23:20 IV: 100ml; Total: 2100ml. ha1 23:50 IV: 200ml; Total: 2300ml. ha1 04/13 01:25 IV: 500ml; Total: 2800ml. ha1 Outcome: 04/12 22:06 Decision to Hospitalize by Provider. sp4 04/13 00:00 Condition: stable ha1 00:00 Admitted to ER Hold. Please see [facility] for further documentation. ha1 00:00 Discharge instructions given to patient, Instructed on the need for admit, Demonstrated understanding of instructions, 14:00 Patient left the ED. db Signatures: Dispatcher [employer] Rupa Falcon RN RN iw Carla Nascimento RN RN ha1 Ruthann Villafana RN RN db Potepalov, Sergey, MD MD sp4 Robert Yost MD MD ec2 Cezar Reyna Mary Beth RN mb9 Corrections: (The following items were deleted from the chart) 00:17 04/12 22:35 ceFAZolin IVPB 1 grams 50 ml IVPB in left antecubital over 30 mins ha1 ha1
[2024-04-12] MEDS ORDERED: GLUCAGON 1 MG/VIAL IM PRN (22:20)
[2024-04-12] MEDS ORDERED: D50W 25 GM/50 ML SYRINGE IV PRN (22:20)
[2024-04-12] MEDS ORDERED: ONDANSETRON 4 MG/2 ML VIAL IV PRN (22:20)
--- NOTE | 2024-04-12 22:26 | P.HP ---
Certification for Inpatient Patient admitted to: Observation Practitioner: I am a practitioner with admitting privileges, knowledge of patient current condition, hospital course, and medical plan of care. Services: Services provided to patient in accordance with Admission requirements found in Title 42 Section 412.3 of the Code of Federal Regulations Patient History Date of Service: 04/13/24 History of Present Illness: 69-year-old male with a past medical history Cerebrovascular accident; diabetes mellitus; Hypercholesterolemia; Hypertensive disorder presents to the emergency room with bilateral feet, hand swelling. He presents for bilateral lower extremities, gluteal abscess/buttock wound. He denies No chest pain, shortness of breath, no reported fever, chills, no nausea or vomiting. ER evaluate blood glucose 579 in the emergency room. Elevated creatinine 1.43 GFR 53, BNP minimally elevated, no leukocytosis. BP 146 / 71; Pulse 74; Resp 18; Temp 98.2; Pulse Ox 96% on R/A; Pain 10/10; per ER physician patient is homeless, has not slept in 2 days. Patient was difficult to arouse on exam, eyes open to verbal no focal deficits noted. Plan to admit for uncontrolled diabetes with hyperglycemia, acute on chronic renal insufficiency, moderate dehydration, generalized weakness, gluteal abscess, surgery to eval left gluteal abscess, n.p.o. after midnight, patient is difficult to arouse, CT of the head ordered to rule out CVA, Allergies No Known Allergies Allergy (Verified 02/20/24 02:33) Home Medications: Alcohol Antiseptic Pads [Alcohol Swabs] 1 each TP TID #1 box 04/09/24 Amlodipine [Norvasc*] 5 mg PO DAILY #30 tab 04/09/24 Amox/Clavulanate [Augmentin 875-125 Tab] 875 mg PO BID #14 tab 04/09/24 Blood Sugar Diagnostic [Blood Glucose Test Strip] 1 each MC TID #90 strip 04/09/24 Blood-Glucose Meter [Blood Glucose Monitoring] 1 each MC TID #1 kit 04/09/24 Doxycycline Hyclate [Vibramycin] 100 mg PO BID #14 cap 04/09/24 Hydrocodone 7.5/APAP 325 [[place] 7.5/325 mg] 1 tab PO Q6H PRN #15 tab 04/09/24 Insulin Glargine,Hum.rec.anlog [Lantus Solostar] 20 unit SQ BID #30 ml 04/09/24 Lancets 1 each TID #100 ea 04/09/24 Metformin HCl 1,000 mg PO BID #60 tab 04/09/24 Syrge-Ndl,Ins 0.3 ml Half Daniel [Insulin Syringe] 1 each MC TID #1 box 04/09/24 - Past Medical/Surgical History -: Type 2 diabetes -: Homeless - Social History Alcohol use: No CD- Drugs: No Caffeine use: Yes Review of Systems Per HPI Physical Examination - Physical Exam General: In no apparent distress, Other (Resting with eyes closed, difficult to arouse, responds to verbal and painful stimuli no focal deficits) HEENT: Atraumatic, Normocephalic Neck: Supple, 2+ carotid pulse no bruit Respiratory: Normal air movement, Diminished Cardiovascular: Normal pulses, Regular rate/rhythm Capillary refill: <2 Seconds Gastrointestinal: Normal bowel sounds, Soft and benign Musculoskeletal: Swelling (Bilateral extremity edema) Integumentary: Other (Left gluteal abscess, bilateral lower extremity) Neurological: Other (Moderate generalized weakness, eyes open to verbal, painful stimuli, no focal deficit) - Studies Laboratory Data (last 24 hrs) 04/12/24 04/12/24 18:50 18:50 WBC 8.80 Hgb 10.8 L Hct 32.1 L Plt Count 347 Sodium 133 L Potassium 4.6 BUN 23 H Creatinine 1.43 H Glucose 579 H* Assessment and Plan - Plan Assessment plan Uncontrolled diabetes with hyperglycemia, Accu-Chek, high sliding scale insulin, A1c in the a.m., IV fluids, Emergency room glucose 579 i 4+ glucosuria no leukocytosis. BP 146 / 71; Pulse 74; Resp 18; Temp 98.2; Pulse Ox 96% on R/A; Pain 10/10 Moderate generalized weakness Degenerative joint disease CT of the head rule out CVA PT eval, to assess gait, DME needs Fall precaution CT Degenerative changes of the hip joints and lower lumbar spine. Dehydration Acute on chronic renal insufficiency Trend kidney function Gentle IV fluids Elevated creatinine 1.43 GFR 53, 206 BNP minimally elevated, Chronic venous stasis ulcer BLE Left gluteal abscess, Bilateral lower extremity edema Surgery consulted to eval n.p.o. after midnight IV vancomycin, Ancef, Cultures for abscess per surgery Venous Dopplers bilateral lower extremity rule out DVT CT of the pelvis IMPRESSION: Soft tissue swelling along the left gluteal region, with a small 3.1 cm fluid collection laterally in the subcutaneous soft tissues. This may represent a small seroma. Possibility of phlegmon/ abscess is less likely but not entirely excluded. Trend blood culture result Microcytic anemia Trend H&H 10.8 32.1 History cerebrovascular accident Hypercholesterolemia Hypertensive disorder Resume appropriate home Patient is homeless manager services consult for detention access,, access to medications, Full code DVT Lovenox Diet n.p.o. after midnight Discharge Plan: Other (Homeless) - Advance Directives Does patient have a Living Will: No Does patient have a Durable POA for Healthcare: No Critical Care: No Time Spent Managing Pts Care (In Minutes): 55
[2024-04-12] MEDS ORDERED: VANCOMYCIN 1 GM/VIAL ONE (22:32)
[2024-04-12] MEDS ORDERED: NA CHLORIDE 0.9% 100 ML ONE (22:33)
[2024-04-12] MEDS ORDERED: NA CHLORIDE 0.9% 500 ML ONE (22:33)
[2024-04-12] MEDS ORDERED: CEFAZOLIN SODIUM 1 GM/VIAL ONE (22:33)
[2024-04-12] MEDS ORDERED: D10W 125 ML IV PRN (22:40)
[2024-04-12] MEDS: NA CHLORIDE 0.9% 1,000 ML IV SCH (23:00)
[2024-04-12] MEDS ORDERED: INSULIN -REGULAR HUMAN 100 UNIT in NA CHLORIDE 0.9% 100 ML IV SCH (23:00)
[2024-04-12] MEDS ORDERED: D5 0.45 NS 1,000 ML IV SCH (23:00)
[2024-04-12] MEDS ORDERED: NA CHLORIDE 0.9% 1,000 ML IV SCH (23:00)
[2024-04-12] MEDS ORDERED: Levofloxacin 750mg IV 750 MG/150 ML BAG IV SCH (23:00)
[2024-04-13] MEDS: CEFAZOLIN 1 GM in NA CHLORIDE 0.9% 50 ML IVPB SCH (01:00)
[2024-04-13] MEDS ORDERED: NA CHLORIDE 0.9% 1,000 ML ONE (01:28)
[2024-04-13] MEDS: INSULIN GLARGINE 100 UNIT/ML SQ SCH (03:58)
[2024-04-13] MEDS ORDERED: INSULIN GLARGINE 100 UNIT/ML SQ ONE (04:03)
[2024-04-13 04:38] LABS: Absolute Eosinophils 0.2 K/uL (0-0.5); Absolute Lymphocytes (CBC) 1.6 K/uL (0.7-4.9); Absolute Monocytes 0.7 K/uL (0.1-1.3); Absolute Neutrophil 4.7 K/uL (1.8-8.0); Basophils % 0.3 % (0-1.3); Eosinophils % 2.8 % (0-4.4); Hematocrit 29.9 % (39.6-49.0); Hemoglobin 10.4 g/dL (13.6-17.9); Lymphocytes % 22.3 % (15.3-44.8); MCH 30.3 pg (27.0-35.0); MCHC 34.6 g/dL (32.0-36.0); MCV 87.4 fL (80-100); MPV 7.4 fL (7.6-11.3); Monocytes % 10.2 % (3.3-12.3); Neutrophils % 64.4 % (41.7-73.7); Nucleated Red Blood Cells % 0.1 % (0-0); Platelets 313 thou/uL (152-406); RBC Red Blood Cell Count 3.43 M/uL (4.33-5.43); Red Cell Distribution Width 13.2 % (12.1-15.2)
[2024-04-13 04:39] LABS: Anion Gap 8.2 mEq/L (5.0-15.0); Potassium 4.2 mEq/L (3.5-5.1)
[2024-04-13 04:46] LABS: Phosphorus 3.3 mg/dL (2.5-4.9)
[2024-04-13 05:16] VITALS: BMI 28.8
[2024-04-13] MEDS: INSULIN REGULAR (HUMAN) 100 UNIT/ML SQ SCH (07:30)
[2024-04-13 08:30] LABS: Anion Gap 6.3 mEq/L (5.0-15.0); Potassium 4.3 mEq/L (3.5-5.1)
[2024-04-13] MEDS ORDERED: INSULIN GLARGINE 100 UNIT/ML SQ SCH (09:00)
--- NOTE | 2024-04-13 09:56 | RAD REPORT ---
EXAM DESCRIPTION: USExtrem Venous W Compress Bil04/13/2024 1:56 am CLINICAL HISTORY: Leg swelling COMPARISON: none FINDINGS: The common femoral, superficial femoral, greater saphenous, popliteal and posterior tibial veins bilaterally are compressible and demonstrate augmentation. Doppler demonstrates good flow. Grayscale, color and spectral analysis performed on all vessels IMPRESSION: No evidence of deep venous thrombosis involving either lower extremity.
[2024-04-13] MEDS: PNEUMOCOCCAL VACCINE 0.5 ML IMVAC ONE (10:00)
[2024-04-13] MEDS ORDERED: CEFAZOLIN SODIUM 1 GM/VIAL ONE (10:59)
[2024-04-13] MEDS ORDERED: NA CHLORIDE 0.9% 50 ML ONE (11:00)
[2024-04-13] MEDS ORDERED: INSULIN REGULAR (HUMAN) 100 UNIT/ML ONE (13:09)
--- NOTE | 2024-04-13 13:34 | P.PN ---
Date of Service: 04/13/24 Subjective: Worried about wounds on legs No acute events overnight ROS: 10 point ROS as noted above, otherwise negative Physical exam GEN: Alert, oriented, NAD HEENT: Normal conjunctiva, sclera anicteric CV: Regular rate and rhythm, no edema Pulm: Nonlabored respirations on room air ABD: Soft, nontender, nondistended MSK: No joint tenderness Integumentary: Left gluteal ulceration present with surrounding erythema, induration bilateral lower extremity wounds/abrasions Neuro: Normal speech, normal affect Vitals reviewed Assessment and plan Left gluteal abscess Continue antibiotics General surgery consulted, plan for I&D today Blood cultures ordered and pending-follow Afebrile without leukocytosis at this time Diabetes mellitus type 2insulin-dependent with hyperglycemia A1c 12.4 Patient is homeless and has not been unable to leaf size picker any insulin Continue long-acting insulin, sliding scale telemetry hospitalization ADA diet Case management consultation to assist with diabetic resources Moderate generalized weakness Degenerative joint disease CT of the head rule out CVA PT eval, to assess gait, DME needs Fall precaution Dehydration Acute on chronic renal insufficiency-resolved Trend kidney function Gentle IV fluids Chronic venous stasis ulcer BLE Bilateral lower extremity edema Wound healing consulted Negative DVT bilaterally Microcytic anemia Monitor H&H daily History cerebrovascular accident Hypercholesterolemia Hypertensive disorder Resume appropriate home medications Patient is homeless financial services director consult for care home access,, access to medications, Full code DVT Lovenox Discharge Plan: Other (Homeless) Time Spent Managing Pts Care (In Minutes): 35
[2024-04-13] MEDS: SILVER SULFADIAZINE 1% 25 GM TOP ONE (13:45)
[2024-04-13] MEDS ORDERED: LIDOCAINE 1% MPF 5 ML VIAL ONE ×2 (14:06→14:07)
[2024-04-13] MEDS ORDERED: propofoL 200 MG/20 ML VIAL IV ONE (14:06)
[2024-04-13] MEDS ORDERED: MIDAZOLAM HCL 2 MG/2 ML INJ ONE (14:06)
[2024-04-13] MEDS ORDERED: FENTANYL CITR 100 MCG/2 ML ONE (14:06)
--- NOTE | 2024-04-13 14:10 | RAD REPORT ---
EXAM DESCRIPTION: CT - Head Brain Wo Cont - 04/13/2024 6:34 am [facility]: CT HEAD WITHOUT IV CONTRAST CLINICAL HISTORY: 69 years Male; altered mental status; TECHNIQUE: Noncontrast CT head. All CT scans at this facility use dose modulation, iterative reconstruction, and/or weight based dosi ng when appropriate to reduce radiation dose to as low as reasonably achievable. COMPARISON: CT head 02/19/2024. FINDINGS: Parenchyma: No acute hemorrhage, large territorial infarction, or mass effect. Ventricles and extra-axial spaces: Appropriate for age. Visualized paranasal sinuses: Clear. Mastoid air cells: Clear. Bones: No acute focal abnormality. Additional comment: Intracranial atherosclerosis. Right-sided lens replacement. IMPRESSION: No acute intracranial findings. Electronically signed by: Lc Aguirre MD 04/12/2024 11:36 PM CDT RP Z9 Due to temporary technical issues with the PACS/Fluency reporting system, reports are being signed by the in house radiologists without review as a courtesy to insure prompt reporting. The interpreting radiologist is fully responsible for the content of the report.
[2024-04-13] MEDS ORDERED: ONDANSETRON 4 MG/2 ML VIAL ONE (14:38)
[2024-04-13] MEDS ORDERED: dexAMETHasone 4 MG/ML VIAL ONE (14:38)
--- NOTE | 2024-04-13 14:44 | P.BOP ---
Preoperative diagnosis: LEft buttock abscess/infected ulcer Postoperative diagnosis: same Primary procedure: Excisional subQ debridement left buttock infected wound/abscess Secondary procedure: 3x3cm Estimated blood loss: <10cc Specimen: cult Findings: abscess Anesthesia: General Complications: None Transferred to: Recovery Room Condition: Good
[2024-04-13 15:44] VITALS: O2SAT 98
--- NOTE | 2024-04-13 19:22 | CON ---
Date of Consultation: 04/13/2024 Diagnosis: Abscess in the left buttock with necrotic infected ulcer. History Of Present Illness: This is a case of a 69-year-old patient with history of CVAs, diabetes, multiple medical problems found to have multiple infected ulcers with abscess in the left buttocks an d a surgical consult was obtained for evaluation and treatment. Allergies: NONE. Medications: Include Augmentin, vibramycin, insulin, hydrocodone, metformin. Past Medical History: Include diabetes. Social History: He is homeless. No alcohol. No drugs. No smoking. Review of Systems: No nausea, no vomiting. No fever. No shortness of breath. No chest pain. Physical Examination: General: The patient is awake, alert. HEENT: Pupils equal, reactive, anicteric. Neck: Supple. Chest: Clear. Abdomen: Soft and depressible. Integumentary: Multiple bruises all over the body, but in the left buttock patient has necrotic ulce r with an abscess present. Rectal: Deferred. Extremities: Good capillary refill. Laboratory Data: WBC count of 8.8, hemoglobin of 10.8, potassium is 4.2, creatinine is 1.6. CAT scan of abdomen and pelvis interpreted by Dr. Chandra as 3 cm fluid collection in the left buttock s, cannot rule out abscess. Assessment: This is a 69-year-old patient with left buttock abscess. Benefits, alternatives, and ri sks of incision and drainage and debridement fully explained, which include, but not limited to infec tion, bleeding, damage to adjacent structures, anesthesia complication, recurrence [place], and even . He may require wound care. NARESH/SHARON Voice ID: [id number] Report ID: [id number]
[2024-04-13] MEDS: VANCOMYCIN 1.5 GM in NA CHLORIDE 0.9% 500 ML IVPB SCH (20:33)
[2024-04-14 03:52] LABS: Absolute Eosinophils 0.3 K/uL (0-0.5); Absolute Lymphocytes (CBC) 1.3 K/uL (0.7-4.9); Absolute Monocytes 0.7 K/uL (0.1-1.3); Absolute Neutrophil 6.7 K/uL (1.8-8.0); Basophils % 0.4 % (0-1.3); Eosinophils % 2.8 % (0-4.4); Hematocrit 31.4 % (39.6-49.0); Hemoglobin 10.8 g/dL (13.6-17.9); Lymphocytes % 14.9 % (15.3-44.8); MCH 30.3 pg (27.0-35.0); MCHC 34.4 g/dL (32.0-36.0); MPV 7.7 fL (7.6-11.3); Monocytes % 7.7 % (3.3-12.3); Neutrophils % 74.2 % (41.7-73.7); Nucleated Red Blood Cells % 0.1 % (0-0); Platelets 314 thou/uL (152-406); RBC Red Blood Cell Count 3.57 M/uL (4.33-5.43); Red Cell Distribution Width 13.2 % (12.1-15.2)
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
--- NOTE | 2024-04-14 15:07 | EKG ---
Test Date: 2024-04-12 Test Time: 21:59:55 Internist: SEVERINO MEASUREMENT RESULTS: Intervals: Rate: 72 [place]: 160 QRSD: 86 QT: 422 QTc: 462 [place]: P: -10 [place]: 160 QRS: 101 T: 41 INTERPRETIVE STATEMENTS: Normal sinus rhythm with sinus arrhythmia Rightward axis Cannot rule out Anterior infarct, age undetermined Abnormal ECG Compared to ECG 04/06/2024 17:29:39 Right-axis deviation now present Myocardial infarct finding now present Left-axis deviation no longer present Electronically Signed On 04-14-24 15:00:57 CDT by Michael Urrutia
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
[2024-04-14] MEDS: SMZ./TMP. 800/160 MG TABLET PO SCH (21:01)
[2024-04-15 04:48] VITALS: TEMP 97.5
[2024-04-15 08:24] VITALS: BP 189/91
--- NOTE | 2024-04-22 02:13 | OP ---
Date of Procedure: 04/13/2024 Surgeon: Abdirizak Obando MD Preoperative Diagnoses: Left buttock abscess and infected ulcer. Postoperative Diagnoses: Left buttock abscess and infected ulcer. Procedure: Excisional subcutaneous debridement, left buttock infected wound/abscess, 3 x 3 cm. Estimated Blood Loss: Less than 10 cc. Specimen: Culture. Finding: Abscess. Anesthesia: General plus local. Indications: This is the case of a male who comes to us with an infected wound on the left buttock. Benefits, alternatives, and risks of excisional debridement were fully explained, which include, but not limited to, infection, bleeding, damage to adjacent structures, anesthesia complication, nonheal ing wound, GA, even . He also understands this may not relieve symptoms. He might need more th an one surgical intervention. He will require wound care. He understood, signed the consent. Procedure In Detail: The patient was brought to the operating room after marking the area by me and the patient in the holding room. Once the patient was brought to the operating room, placed in supin e position. Anesthesia was achieved without complication. The patient was placed in lateral decubit us position with proper protection. Left buttock was prepped and draped in a sterile fashion. Local anesthetic was applied. A time-out was called. At that moment, local anesthesia was applied, follo wed by excision of the devitalized tissue and drainage of an abscess, including subcutaneous debridem ent. Incision was carried down until the necrotic tissue was removed. Area was irrigated. Hemostas is obtained. The area was packed with dry dressing. The patient tolerated procedure well. The patient was sent to recovery in stable conditio n. NARESH/SHARON Voice ID: [id number] Report ID: [id number]
== END 2024-04-15 08:45 | disposition home or self-care (01) | DRG 264 ==
LOC: ER 18:27 → ERHOLD 22:19 → OBSVTOIN 04-13 13:28 → 2ND 04-13 15:01
PROVIDERS: ADMIT Hospitalist; ATTEND Hospitalist
PROC: 0JB90ZZ Excision of Buttock Subcutaneous Tissue and Fascia, Open Approach (ICD-10-PCS; principal; 2024-04-13 14:00)
DX: E11.52 Type 2 diabetes mellitus with diabetic peripheral angiopathy with gangrene (principal); L02.31 Cutaneous abscess of buttock; Z59.00 Homelessness unspecified; L97.919 Non-pressure chronic ulcer of unspecified part of right lower leg with unspecified severity; L97.929 Non-pressure chronic ulcer of unspecified part of left lower leg with unspecified severity; E11.65 Type 2 diabetes mellitus with hyperglycemia; E78.00 Pure hypercholesterolemia, unspecified; I10 Essential (primary) hypertension; D64.9 Anemia, unspecified; E86.0 Dehydration; D50.9 Iron deficiency anemia, unspecified; M16.9 Osteoarthritis of hip, unspecified; N28.9 Disorder of kidney and ureter, unspecified; I87.8 Other specified disorders of veins; I83.009 Varicose veins of unspecified lower extremity with ulcer of unspecified site; L98.419 Non-pressure chronic ulcer of buttock with unspecified severity; Z79.4 Long term (current) use of insulin; Z79.84 Long term (current) use of oral hypoglycemic drugs; Z86.73 Personal history of transient ischemic attack (TIA), and cerebral infarction without residual deficits; Z79.899 Other long term (current) drug therapy
CPT/HCPCS: 36415; 70450; 72193; 80048; 80061; 81001; 82947; 83036; 83880; 84100; 84484; 85025; 87040; 87070; 87075; 87205; 88304; 93005; 93970; 94010; 96361; 96365; 96367; 96375; 97116; 97161; 97530; 99285; G0378; J0690; J1100; J2001; J2250; J2405; J2704; J3010; J7030; J7040; Q9967

== ENCOUNTER 2024-05-05 11:39 | Emergency (ER) | payer OTHER ==
--- OUTSIDE RECORDS SUMMARY | 2024-05-05 11:45 | XMS REPORT | Continuity of Care Document ---
Author Name Unknown Address [address] [facility] [address] [place] [address] [facility] Address [address] [facility] [address] [place] [address] Care Team Providers Care Processing Technician Name Role Phone Pcp, Patient Does Not Have A Primary Care Physic flaquito Destiny Caruso Attending Clinician [phone] MULUGETA PALMA Attending Clinician Unavailable Mulugeta Palma MD Attending Clinician [phone] NANDO HAGAN Attending Clinician Unavailable NANDO HAGAN Attending Clinician Unavailable JOHNNY TEE Attending Clinician Unavailable Johnny Tee PA-C Attending Clinician [phone] KVNG FRANK Attending Clinician UnavailKvng Flores Attending Clinician +[phone] Nargis Moore RN Attending Clinician UnavailBALJIT Underwood Attending Clinician Unavailable BALJIT GAYLE Attending Clinician Unavailable DL MILLARD Attending Clinician Unavailable Dl Millard MD Attending Clinician + DAVID PAUL Attending Clinician Unavailable David Paul DO Attending Clinician + TARA IRELAND Attending Clinician Unavailable Tara Ireland MD Attending Clinician + DESTINY MULLER Attending Clinician Unavailable ZO GREEN Attending Clinician UnavailZo Ding DO Attending Clinician +00 SILAS ANDERSEN Attending Clinician Unavailable SILAS ANDERSEN Attending Clinician Unavailable JACKIE DIAZ Attending Clinician Unavailab Jackie Moore DO Attending Clinician [phone] Lorene Stein Attending Clinician Tl Aranda MD Attending Clinician [phone] TL ARANDA Attending Clinician Unavailable Georgina Garcia RN Attending Clinician Unava ilable Doctor Unassigned, Alba Attending Clinician U navailable Provider, [facility] Attending Clinician Un available Green SERVICE COUNSELOR, Lesli Attending Clinician [phone] Pob, 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 Attending Clinician UnavailNIMISHA Haywood Attending Clinician Unavail able KUNAL JOEL Attending Clinician Unavailable Darrell Maxwell MD Attending Clinician [phone] AneYossi Aguilar Attending Clinician +[phone] ANEYOSSI BATES Attending Clinician Unavailable Idalia ASHLEY, Debra Attending Clinician [phone] IDALIADEBRA SALINAS Attending Clinician Unavailable DARRELL BECKFORD Attending Clinician UnaDarrell Beltran MD Attending Clinician + [phone] Chelle Fernandez MD Attending Clinician +[phone] CHELLE FERNANDEZ Attending Clinician Unavailable Natividad Copeland MD Attending Clinician UnaGlo Emanuel MD Attending Clinician [phone] GLO FINN Attending Clinician Unavailable Kendall Campa MD Attending Clinician [phone] JOCELYN GREER Attending Clinician UnavailDARRELL Khalil III [...] Number Effective Date Expirati on Date Source [facility] (MEDICARE REPLACEMENT HMO) [id number] 2022 00:00:00 MEDICARE PART A \\T\\ B [id number] 2018 00:00:00 2019 00:00:00 COMMERCIAL NON-CONTRACT GENERIC [id number] 2018 00:00:00 2019 00:00:00 Problems Condition Name Condition Details Condition Category Status Onset Date Resolution Date Last Treatment Date Treating Clinician Comments Source Omental infarction Omental infarction Disease Active 3-09 00:00: 00 [facility] Psoriasifo rm dermatitis Psoriasifo rm dermatitis Disease Active 8-18 00:00: 00 [facility] Need for 23-polyval ent pneumococc al polysaccha ride vaccine Need for 23-polyval ent pneumococc al polysaccha ride vaccine Disease Active 3-28 00:00: 00 [facility] Cellulitis of foot, left Cellulitis of foot, left Disease Active 5-21 00:00: 00 [facility] Edema of both legs Edema of both legs Disease Active - 00:00: 00 [facility] Erectile dysfunctio n, unspecifie d erectile dysfunctio n type Erectile dysfunctio n, unspecifie d erectile dysfunctio n type Disease Active - 00:00: 00 [facility] Essential hypertensi on Essential hypertensi on Disease Active 4-07 00:00: 00 [facility] Edema of both legs Edema of both legs Disease Active - 00:00: 00 [facility] Erectile dysfunctio n, unspecifie d erectile dysfunctio n type Erectile dysfunctio n, unspecifie d erectile dysfunctio n type Disease Active -07 00:00: 00 [facility] Acute midline low back pain without sciatica Acute midline low back pain without sciatica Disease Active 01-18 00:00: 00 [facility] Medicare annual wellness visit, subsequent Medicare annual wellness visit, subsequent Disease Active 12-01 00:00: 00 Overview: Formattin g of this note might be different from the original. Added automatic ally from request for surgery [id number] [facility] Need for hepatitis C screening test Need for hepatitis C screening test Disease Active 2018-11 00:00: 00 [facility] Homelessne ss Homelessne ss Disease Active 2018-11 00:00: 00 [facility] Lesion of matthew Lesion of matthew Disease Active 2018-11 00:00: 00 [facility] Dyslipidem ia Dyslipidem ia Disease Active 2018-11 00:00: 00 [facility] Encounter for screening colonoscop y for non-high-r isk patient Encounter for screening colonoscop y for non-high-r isk patient Disease Active 2018-11 00:00: 00 [facility] 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 Disease Active 2018-11 00:00: 00 [facility] 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) Disease Active 2018-11 00:00: 00 [facility] 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) Disease Active 2018-11 00:00: 00 [facility] Erectile dysfunctio n due to type 2 diabetes mellitus Erectile dysfunctio n due to type 2 diabetes mellitus Disease Active 2018-11 00:00: 00 [facility] Upper respirator y tract infection, unspecifie d type Upper respirator y tract infection, unspecifie d type Disease Active 2018-11 00:00: 00 [facility] Obesity (BMI 30-39.9) Obesity (BMI 30-39.9) Disease Active 4 00:00: 00 [facility] Allergies, Adverse Reactions, Alerts Allergy Name Allergy Type Status Severity Reaction(s) Onset Date Inactive Date Treating Clinician Comments Source NO KNOWN ALLERGIE S Drug Class Active [facility] Social History Social Habit Start Date Stop Date Quantity Comments Source [facility] intake 2024-04-03 00:00:00 2024-04-03 00:00:00 Current non-drinker of alcohol (finding) [facility] Alcohol intake 2024-02-11 00:00:00 2024-02-11 00:00:00 Current non-drinker of alcohol (finding) [facility] Exposure to SARS-CoV-2 (event) 2021-06-10 00:00:00 2021-07-10 10:13:00 Not sure [facility] History of Social function 2021-07-10 00:00:00 2021-07-10 00:00:00 [facility] Tobacco use and exposure 2019-01-14 00:00:00 2019-01-14 00:00:00 Smokeless tobacco non-user [facility] Sex assigned at 1955 00:00:00 1955 00:00:00 [facility] Smoking Status Start Date Stop Date Source Never smoked tobacco [facility] Medications Ordered Medication Name Filled Medication Name Start Date Stop Date Current Medication? Ordering Clinician Indication Dosage Frequency Signature (SIG) Comments Components Source insulin regular human (HUMULIN R) injection 5 Units 04-06 10:30: 00 04-06 09:38 :00 No 5U 5 Units, Subcutaneo us, ONCE, 1 dose, On Thu04/06/24 at 0530, Routine, Indication for insulin: Hyperglyce danae [facility] insulin regular human (HUMULIN R) injection 5 Units 04-06 09:30: 00 04-06 08:38 :00 No 5U 5 Units, Subcutaneo us, ONCE, 1 dose, On Thu04/06/24 at 0430, Routine, Indication for insulin: Hyperglyce danae [facility] ergocalcife rol (vitamin d2) (CALCIFEROL ) capsule 50,000 Units 04-06 09:00: 00 04-06 08:33 :00 No [id number] 50,000 Units, Oral, ONCE NOW, 1 dose, On Thu04/06/24 at 0400, Routine [facility] magnesium sulfate in water 2 gram/50 mL (4 %) infusion 2 g 04-06 08:45: 00 04-06 09:30 :00 No 2g 2 g, IV Piggyback, Administer over 60 Minutes, ONCE, 1 dose, On Thu04/06/24 at 0345, [facility] thiamine (VITAMIN B1) injection 100 mg 04-06 08:00: 00 04-06 08:32 :00 No 100mg 100 mg, Slow IV Push, ONCE, 1 dose, On Thu04/06/24 at 0300, [facility] ceFAZolin (ANCEF) 1,000 mg in NaCl 0.9% (NS) 100 mL MINI-BAG 04-06 07:45: 00 04-06 07:30 :00 No 1000mg 1,000 mg, Intravenou s, ONCE, 1 dose, On Thu04/06/24 at 0245, Administer over 30 Minutes, 100 mL, Reason for Anti-Infec tive: Documented Infection, Documented Infection Site: Skin / Soft Tissue, Duration of Therapy: Once (ED) [facility] insulin regular human (HUMULIN R) injection 10 Units 04-06 07:30: 00 04-06 07:34 :00 No 10U 10 Units, Slow IV Push, ONCE, 1 dose, On Thu04/06/24 at 0230, STAT, Indication for insulin: Hyperglyce [facility] furosemide (LASIX) injection 40 mg 04-06 07:00: 00 04-06 06:59 :00 No 40mg 40 mg, IV Push, ONCE, 1 dose, On Thu04/06/24 at 0200, [facility] gabapentin (NEURONTIN) capsule 300 mg 04-06 07:00: 00 04-06 06:57 :00 No 300mg 300 mg, Oral, ONCE, 1 dose, On Thu04/06/24 at 0200, [facility] gabapentin (NEURONTIN) 100 mg capsule 04-06 00:00: 00 Yes [id number] 100mg Take 1 capsule by mouth in the morning and 1 capsule at noon and 1 capsule in the evening. [facility] furosemide 20 mg tablet 04-06 00:00: 00 Yes [id number] 20mg Take 1 tablet by mouth every morning. [facility] cephALEXin 500 mg capsule 04-06 00:00: 00 Yes [id number] 500mg Take 1 capsule by mouth 4 (four) times daily. [facility] mupirocin 2 % ointment 04-06 00:00: 00 Yes [id number] Apply to area(s) 3 (three) times daily. [facility] NaCl 0.9% (NS) bolus infusion 500 mL 04-03 21:15: 00 04-03 22:05 :00 No 500mL at 999 mL/hr, 500 mL, IV Infusion, ONCE, 1 dose, On Thu04/03/24 at 1615, R[facility] magnesium sulfate in water 2 gram/50 mL (4 %) infusion 2 g 04-03 17:45: 00 04-03 19:00 :00 No 2g 2 g, IV Piggyback, Administer over 60 Minutes, ONCE, 1 dose, On Thu04/03/24 at 1245, Routine [facility] NaCl 0.9% (NS) bolus infusion 500 mL 04-03 16:00: 00 04-03 16:30 :00 No 500mL at 999 mL/hr, 500 mL, IV Infusion, ONCE, 1 dose, On Thu04/03/24 at 1100, [facility] acetaminoph en (TYLENOL) tablet 650 mg 04-03 15:15: 00 04-03 15:46 :00 No 650mg 650 mg, Oral, ONCE, 1 dose, On Thu04/03/24 at 1015, [facility] piperacilli n-tazobacta m (ZOSYN) 3.375 g in NaCl 0.9% (NS) 100 mL VIAL-MATE 04-03 15:15: 00 04-03 16:19 :00 No 3.375g 3.375 g, IV Piggyback, ONCE, 1 dose, On Thu04/03/24 at 1015, Administer over 30 Minutes, 100 mL, Reason for Anti-Infec tive: Documented Infection, Documented Infection Site: Skin / Soft Tissue, Duration of Therapy: Once (ED) [facility] doxycycline hyclate 100 mg capsule 04-03 00:00: 00 04-03 00:00 :00 Yes [id number] 100mg Take 1 capsule by mouth in the morning and 1 capsule in the evening. [facility] insulin regular human (HUMULIN R) injection 10 Units 03-31 21:45: 00 03-31 23:18 :00 No 10U 10 Units, Slow IV Push, ONCE, 1 dose, On Thu03/31/24 at 1645, STAT, Indication for insulin: Hyperglyce danae [facility] acetaminoph en (TYLENOL) tablet 650 mg 03-29 21:15: 00 03-29 22:29 :00 No 650mg 650 mg, Oral, ONCE, 1 dose, On Thu03/29/24 at 1615, [facility] NaCl 0.9% (NS) bolus infusion 500 mL 03-22 16:30: 00 03-22 21:50 :00 No 500mL at 999 mL/hr, 500 mL, IV Infusion, ONCE, 1 dose, On Thu03/22/24 at 1130, [facility] NaCl 0.9% (NS) bolus infusion 1,000 mL 03-12 03:30: 00 03-12 04:43 :00 No 1000mL at 999 mL/hr, 1,000 mL, IV Infusion, ONCE, 1 dose, On Thu03/11/24 at 2230, STAT [facility] insulin regular human (HUMULIN R) injection 10 Units 03-12 03:30: 00 03-12 02:40 :00 No 10U 10 Units, IV Push, ONCE, 1 dose, On Thu03/11/24 at 2230, [facility]
In dication for insulin: Hyperglyce danae [facility] NaCl 0.9% (NS) bolus infusion 1,000 mL 03-12 02:45: 00 03-12 03:00 :00 No 1000mL at 999 mL/hr, 1,000 mL, IV Infusion, ONCE, 1 dose, On Thu03/11/24 at 2145, STAT [facility] meclizine (TRAVEL-EAS E (MECLIZINE) ) tablet 25 mg 02-09 17:15: 00 02-09 17:17 :00 No 25mg 25 mg, Oral, ONCE, 1 dose, On Thu02/10/24 at 1215, [facility] ketorolac (TORADOL) injection 15 mg 02-08 20:00: 00 02-08 20:42 :00 No 15mg 15 mg, Intramuscu lar, ONCE, 1 dose, On Thu02/09/24 at 1500, Routine [facility] methocarbam oL (ROBAXIN) tablet 1,000 mg 02-08 19:15: 00 02-08 20:43 :00 No 1000mg 1,000 mg, Oral, ONCE, 1 dose, On Thu02/09/24 at 1415, [facility] cyclobenzap rine (FLEXERIL) tablet 10 mg 02-05 15:30: 00 02-05 15:14 :00 No 10mg 10 mg, Oral, ONCE, 1 dose, On Thu02/06/24 at 1030, Routine [facility] cyclobenzap rine 10 mg tablet 02-05 00:00: 00 02-11 04:59 :00 Yes [id number] 10mg Take 1 tablet by mouth in the morning and 1 tablet at noon and 1 tablet in the evening. Do all this for 15 doses. [facility] dicyclomine (BENTYL) tablet 20 mg 01-29 20:45: 00 01-29 20:51 :00 No 20mg 20 mg, Oral, ONCE, 1 dose, [facility] 01/30/24 [facility] 1445[facility]BAX[facility]) tablet 1,000 mg 01-29 19:15: 00 01-29 19:06 :00 No 1000mg 1,000 mg, Oral, ONCE, 1 dose, On 01/30/24 at 1315, [facility] ketorolac (TORADOL) tablet 10 mg 01-29 17:45: 00 01-29 17:01 :00 No 10mg 10 mg, Oral, ONCE, 1 dose, On 01/30/24 at 1145, Routine [facility] tiZANidine 4 mg tablet 01-29 00:00: 00 Yes [id number] 4mg Take 1 tablet by mouth every 6 (six) hours as needed for Pain (scale 7-10). [facility] dicyclomine 20 mg tablet 01-29 00:00: 00 Yes [id number] 20mg Take 1 tablet by mouth 4 (four) times daily as needed for Abdominal pain. [facility] ibuprofen (IBU) tablet 600 mg 01-15 03:30: 00 01-15 03:42 :00 No 600mg 600 mg, Oral, ONCE, 1 dose, On Sheree 01/14/24 at 2130, [facility] methocarbam oL (ROBAXIN) tablet 750 mg 01-15 03:26: 00 01-15 03:42 :00 No 750mg 750 mg, Oral, ONCE NOW, 1 dose, On Sheree 01/14/24 at 2130, [facility] LISINOPRIL- HYDROCHLORO THIAZIDE 10-12.5 mg per tablet 02-17 00:00: 00 Yes [id number] Take 1 tablet by mouth once daily [facility] blood sugar diagnostic (TRUE METRIX GLUCOSE TEST STRIP) strip 2020-11 00:00: 00 Yes [id number] Monitor Blood Glucose daily [facility] simvastatin 40 mg tablet 2020-11 00:00: 00 Yes [id number] 40mg Take 1 tablet by mouth at bedtime. [facility] furosemide 20 mg tablet 2020-11 00:00: 00 Yes [id number] 20mg Take 1 tablet by mouth daily. [facility] lancets (TRUEPLUS LANCETS) 33 gauge Misc 2020-11 00:00: 00 Yes [id number] Monitor Blood Glucose daily [facility] Alcohol Swabs (BD SINGLE USE SWABS REGULAR) PadM 2020-11 00:00: 00 Yes [id number] Apply to area(s) daily. Monitor Blood Glucose daily [facility] SIMVASTATIN 40 mg tablet 2020-11 00:00: 00 Yes [id number] 40mg TAKE 1 TABLET BY MOUTH AT BEDTIME [facility] insulin NPH (HUMULIN N NPH U-100 INSULIN) 100 unit/mL injection 07-10 00:00: 00 Yes [id number] INJECT 35 UNITS SUBCUTANEO USLY EVERY MORNING AND EVENING. Office visit needed for further refills. [facility] metFORMIN 1,000 mg tablet 07-10 00:00: 00 Yes [id number] 1000mg Take 1 tablet by mouth 2 (two) times daily with meals. [facility] furosemide 20 mg tablet 07-10 00:00: 00 Yes [id number] 20mg Take 1 tablet by mouth every Thursday, and Thursday in the evening. [facility] lisinopriL- hydrochloro thiazide 10-12.5 mg per tablet 07-10 00:00: 00 02-17 00:00 :00 No [id number] 1{tbl} Take 1 tablet by mouth daily. [facility] simvastatin (ZOCOR) 40 mg tablet 07-10 00:00: 00 10-04 00:00 :00 No [id number] 40mg Take 1 tablet by mouth at bedtime. [facility] insulin NPH (HUMULIN N NPH U-100 INSULIN) 100 unit/mL injection 06-19 00:00: 00 07-10 00:00 :00 No [id number] INJECT 35 UNITS SUBCUTANEO USLY EVERY MORNING AND EVENING. Office visit needed for further refills. [facility] HUMULIN N NPH U-100 INSULIN 100 unit/mL injection 05-21 00:00: 00 Yes [id number] INJECT 35 UNITS SUBCUTANEO USLY IN THE MORNING AND IN THE EVENING [facility] furosemide 20 mg tablet 02-15 00:00: 00 07-10 00:00 :00 No [id number] 20mg Take 1 tablet by mouth every Thursday, and Thursday in the evening. [facility] sildenafiL 50 mg tablet 02-14 00:00: 00 Yes [id number] 50mg Take 1 tablet by mouth as needed (Erectile dysfunctio n). Take 50mg x 1, about 30 mins - 4 hours prior to sexual activity. [facility] insulin NPH (HUMULIN N NPH U-100 INSULIN) 100 unit/mL injection 02-14 00:00: 00 05-21 00:00 :00 No [id number] INJECT 35 UNITS SUBCUTANEO USLY IN THE MORNING AND IN THE EVENING [facility] HUMULIN N NPH U-100 INSULIN 100 unit/mL injection 02-10 00:00: 00 02-14 00:00 :00 No [id number] INJECT 35 UNITS SUBCUTANEO USLY IN THE MORNING AND IN THE EVENING [facility] 02-06 00:00: 00 Yes [id number] E11.8: dispense Insulin Syringe 31 gauge brand covered by insurance. Monitor Blood Sugar at Home BID [facility] 02-06 00:00: 00 Yes [id number] E11.8: dispense Insulin Syringe 31 gauge brand covered by insurance. Monitor Blood Sugar at Home BID [facility]-Nee dle U-100 1 mL 27 gauge x 1/2" Syrg 3- 00:00: 00 Yes [id number] Use as directed [facility] Insulin Syringe-Nee dle U-100 1 mL 27 gauge x 1/2" Syrg 3- 00:00: 00 Yes [id number] Use as directed [facility] Syringe-Nee dle U-100 1 mL 27 gauge x 1/2" Syrg 3- 00:00: 00 Yes [id number] Use as directed [facility] Insulin [place], Disposable, (PHUC PEN NEEDLE) 32 gauge x 5/32" Ndle 3- 00:00: 00 Yes [id number] Use as directed [facility] [place], Disposable, (PHUC PEN NEEDLE) 32 gauge x 5/32" [facility] 3- 00:00: 00 Yes [id number] Use as directed [facility] Insulin [place], Disposable, (PHUC PEN NEEDLE) 32 gauge x 5/32" Ndle 3- 00:00: 00 Yes [id number] Use as directed [facility] Insulin [place], Disposable, (PHUC PEN NEEDLE) 32 gauge x 5/32" Ndle 07-09 00:00: 00 Yes [id number] Use as directed [facility] aspirin 81 mg EC tablet 07-09 00:00: 00 Yes [id number] 81mg Take 1 tablet by mouth daily. [facility] potassium chloride 10 mEq CR tablet 07-09 00:00: 00 Yes [id number] 10meq Take 1 tablet by mouth every Thursday, and Thursday in the evening. [facility] lisinopril 10 mg tablet 07-09 00:00: 00 07-10 00:00 :00 No [id number] 10mg Take 1 tablet by mouth daily. [facility] simvastatin (ZOCOR) 40 mg tablet 07-09 00:00: 00 07-10 00:00 :00 No [id number] 40mg Take 1 tablet by mouth at bedtime. [facility] metFORMIN 1,000 mg tablet 07-09 00:00: 07-10 00:00 :00 No [id number] 1000mg Take 1 tablet by mouth 2 (two) times daily with meals. [facility] furosemide 20 mg tablet 07-09 00:00: 02-14 00:00 :00 No [id number] 20mg Take 1 tablet by mouth every Thursday, and Thursday in the evening. [facility] insulin NPH 100 unit/mL injection 07-09 00:00: 02-10 00:00 :00 No [id number] 35U inject 35 Units under the skin every morning and evening. [facility] potassium chloride 10 mEq CR tablet 04-13 00:00: 07-09 00:00 :00 No [id number] 10meq Take 1 tablet by mouth every Thursday, and Thursday in the evening. [facility] furosemide 20 mg tablet 04-13 00:00: 07-09 00:00 :00 No [id number] 20mg Take 1 tablet by mouth every Thursday, and Thursday in the evening. [facility] doxycycline hyclate 100 mg tablet 04-12 00:00: 00 07-09 00:00 :00 No [id number] 100mg Take 1 tablet by mouth 2 (two) times daily. [facility] diph,pertus (acel),teta nus (ADACEL) injection 0.5 mL 03-12 14:00: 00 03-13 01:59 :00 No .5mL 0.5 mL, Intramuscu lar, ONCE, 1 dose, Thu03/12/20 at 0900, Routine [facility] clindamycin 300 mg capsule 03-12 00:00: 00 03-23 04:59 :00 No [id number] 300mg Take 1 capsule by mouth 4 (four) times daily for 10 days. [facility] sildenafil 50 mg tablet 07 00:00: 00 02-14 00:00 :00 No [id number] 50mg Take 1 tablet by mouth as needed (Erectile dysfunctio n). Take 50mg x 1, about 30 mins - 4 hours prior to sexual activity. [facility] metFORMIN 1,000 mg tablet 01-18 00:00: 00 07-09 00:00 :00 No [id number] 1000mg Take 1 tablet by mouth 2 (two) times daily with meals. [facility] ondansetron (ZOFRAN (PF)) injection 4 mg 12-30 17:29: 59 Yes 4mg 4 mg, Slow IV Push, PRN, 1 dose, Starting Thu12/30/19 at 1129, Until Discontinu ed, Routine, Nausea and Vomiting (N/V), PACU [facility] water for irrigation irrigation solution 12-30 16:20: 00 Yes PRN, Starting Thu12/30/19 at 1020, Until Discontinu ed, Routine, Intra-op [facility] simethicone (GAS RELIEF (SIMETHICON E)) 40 mg/0.6 mL drops 12-30 16:19: 00 Yes PRN, Starting Thu12/30/19 at 1019, Until Discontinu ed, Routine, Intra-op [facility] NaCl 0.9% (NS) IV infusion 1,000 mL 12-30 13:45: 00 Yes 1000mL at 42 mL/hr, IV Infusion, CONTINUOUS , Starting Thu12/30/19 at 0745, Until Discontinu ed, Routine, DSU Pre-op [facility] peg-electro lyte soln 236-22.74-6 .74 -5.86 gram solution 11-30 00:00: 00 Yes Take as directed [facility] prednisoLON E acetate 1 % ophthalmic suspension drops 2018-11 00:00: 00 Yes [id number] 1[drp] Place 1 Drop in right eye 4 (four) times daily. [facility] ofloxacin (OCUFLOX) 0.3 % ophthalmic solution 2018-11 00:00: 00 Yes [id number] 1[drp] Place 1 Drop in right eye 3 (three) times daily. [facility] aspirin 81 mg EC tablet 2018-11 00:00: 00 07-09 00:00 :00 No [id number] 81mg Take 1 tablet by mouth daily. [facility] Insulin [place], Disposable, (PHUC PEN NEEDLE) 32 gauge x 5/32" Ndle 2018-11 00:00: 00 07-09 00:00 :00 No [id number] Use as directed [facility] lactobacill us comb no.10 (PROBIOTIC) 20 billion cell Cap 06-10 00:00: 00 07-09 00:00 :00 No [id number] 1{capsu le} Take 1 capsule by mouth 2 (two) times daily. [facility] simvastatin (ZOCOR) 40 mg tablet 05-30 00:00: 07-09 00:00 :00 No [id number] 40mg Take 1 tablet by mouth at bedtime. [facility] lisinopril 10 mg tablet 05-30 00:00: 07-09 00:00 :00 No [id number] 10mg Take 1 tablet by mouth daily. [facility] insulin NPH 100 unit/mL injection 05-30 00:00: 00 07-09 00:00 :00 No [id number] 35U inject 35 Units under the skin every morning and evening. [facility] metFORMIN 500 mg tablet 05-30 00:00: 01-18 00:00 :00 No [id number] 500mg Take 1 tablet by mouth 2 (two) times daily with meals. [facility] Immunizations Ordered Immunization Name Filled Immunization Name Date Status Comments Source TDAP Unknown Completed [facility] TDAP Unknown Completed [facility] TDAP Unknown Completed [facility] TDAP Unknown Completed [facility] Vital Signs Vital Name Observation Time Observation Value Comments S ourrahul Heart rate 2024-04-06 10:11:00 72 /min [facility] Body temperature 2024-04-06 10:11:00 36.89 [facility] [place] Respiratory rate 2024-04-06 10:11:00 16 /min [facility] Oxygen saturation in Arterial blood by Pulse oximetry 2024-04-06 10:11:00 99 /min [facility] Systolic blood pressure 2024-04-06 10:00:00 130 mm[Hg] [facility] Diastolic blood pressure 2024-04-06 10:00:00 74 mm[Hg] [facility] Body height 2024-04-06 06:52:00 177.8 cm [facility] Body weight 2024-04-06 06:52:00 99.791 kg [facility] BMI 2024-04-06 06:52:00 31.57 kg/m2 [facility] Systolic blood pressure 2024-04-03 21:45:00 164 mm[Hg] [facility] Diastolic blood pressure 2024-04-03 21:45:00 85 mm[Hg] [facility] Heart rate 2024-04-03 21:45:00 88 /min [facility] Respiratory rate 2024-04-03 21:45:00 16 /min [facility] Oxygen saturation in Arterial blood by Pulse oximetry 2024-04-03 21:45:00 96 /min [facility] Body temperature 2024-04-03 14:41:00 36.5 Ginny [facility] Systolic blood pressure 2024-04-01 00:04:00 132 mm[Hg] [facility] Diastolic blood pressure 2024-04-01 00:04:00 73 mm[Hg] [facility] Heart rate 2024-04-01 00:04:00 76 /min [facility] Respiratory rate 2024-04-01 00:04:00 18 /min [facility] Oxygen saturation in Arterial blood by Pulse oximetry 2024-04-01 00:04:00 98 /min [facility] Body height 2024-03-31 23:15:00 177.8 cm [facility] Body temperature 2024-03-31 17:35:00 36.72 Ginny [facility] Body weight 2024-03-31 17:35:00 99.791 kg [facility] BMI 2024-03-31 17:35:00 31.57 kg/m2 [facility] Respiratory rate 2024-03-29 21:38:00 18 /min [facility] Oxygen saturation in Arterial blood by Pulse oximetry 2024-03-29 21:38:00 99 /min [facility] Systolic blood pressure 2024-03-29 21:38:00 135 mm[Hg] [facility] Diastolic blood pressure 2024-03-29 21:38:00 74 mm[Hg] [facility] Heart rate 2024-03-29 21:38:00 66 /min [facility] Body temperature 2024-03-29 21:38:00 36.72 Ginny [facility] Body weight 2024-03-29 19:47:00 99.791 kg [facility] BMI 2024-03-29 19:47:00 31.57 kg/m2 [facility] Systolic blood pressure 2024-03-22 21:30:00 175 mm[Hg] [facility] Diastolic blood pressure 2024-03-22 21:30:00 90 mm[Hg] [facility] Heart rate 2024-03-22 21:30:00 84 /min [facility] Respiratory rate 2024-03-22 21:30:00 16 /min [facility] Oxygen saturation in Arterial blood by Pulse oximetry 2024-03-22 21:30:00 100 /min [facility] Body temperature 2024-03-22 14:55:00 36.94 Ginny [facility] Systolic blood pressure 2024-03-12 04:00:00 155 mm[Hg] [facility] Diastolic blood pressure 2024-03-12 04:00:00 103 mm[Hg] [facility] Heart rate 2024-03-12 04:00:00 92 /min [facility] Respiratory rate 2024-03-12 04:00:00 18 /min [facility] Oxygen saturation in Arterial blood by Pulse oximetry 2024-03-12 04:00:00 98 /min [facility] Body temperature 2024-03-12 01:17:00 37.33 Ginny [facility] Body height 2024-03-12 01:17:00 177.8 cm [facility] Body weight 2024-03-12 01:17:00 99.791 kg [facility] BMI 2024-03-12 01:17:00 31.57 kg/m2 [facility] Systolic blood pressure 2024-02-10 19:50:00 158 mm[Hg] [facility] Diastolic blood pressure 2024-02-10 19:50:00 87 mm[Hg] [facility] Heart rate 2024-02-10 19:50:00 86 /min [facility] Respiratory rate 2024-02-10 19:50:00 18 /min [facility] Oxygen saturation in Arterial blood by Pulse oximetry 2024-02-10 19:50:00 96 /min [facility] Body temperature 2024-02-10 16:57:00 36.72 Ginny [facility] Body height 2024-02-10 16:57:00 177.8 cm [facility] Body weight 2024-02-10 16:57:00 99.791 kg [facility] BMI 2024-02-10 16:57:00 31.57 kg/m2 [facility] Systolic blood pressure 2024-02-09 22:00:00 143 mm[Hg] [facility] Diastolic blood pressure 2024-02-09 22:00:00 76 mm[Hg] [facility] Heart rate 2024-02-09 22:00:00 83 /min [facility] Respiratory rate 2024-02-09 22:00:00 16 /min [facility] Oxygen saturation in Arterial blood by Pulse oximetry 2024-02-09 22:00:00 100 /min [facility] Body temperature 2024-02-09 19:02:00 35.94 Ginny [facility] Body height 2024-02-09 19:02:00 177.8 cm [facility] Body weight 2024-02-09 19:02:00 99.791 kg [facility] BMI 2024-02-09 19:02:00 31.57 kg/m2 [facility] Systolic blood pressure 2024-02-06 14:26:00 163 mm[Hg] [facility] Diastolic blood pressure 2024-02-06 14:26:00 77 mm[Hg] [facility] Heart rate 2024-02-06 14:26:00 71 /min [facility] Body temperature 2024-02-06 14:26:00 36.61 Ginny [facility] Respiratory rate 2024-02-06 14:26:00 16 /min [facility] Body height 2024-02-06 14:26:00 165.1 cm [facility] Body weight 2024-02-06 14:26:00 99.791 kg [facility] BMI 2024-02-06 14:26:00 36.61 kg/m2 [facility] Oxygen saturation in Arterial blood by Pulse oximetry 2024-02-06 14:26:00 98 /min [facility] Systolic blood pressure 2024-01-30 16:05:00 150 mm[Hg] [facility] Diastolic blood pressure 2024-01-30 16:05:00 89 mm[Hg] [facility] Heart rate 2024-01-30 16:05:00 71 /min [facility] Body temperature 2024-01-30 16:05:00 37 Ginny [facility] [place] Respiratory rate 2024-01-30 16:05:00 18 /min [facility] Body height 2024-01-30 16:05:00 177.8 cm [facility] Body weight 2024-01-30 16:05:00 100.699 kg [facility] BMI 2024-01-30 16:05:00 31.85 kg/m2 [facility] Oxygen saturation in Arterial blood by Pulse oximetry 2024-01-30 16:05:00 99 /min [facility] Systolic blood pressure 2024-01-15 03:18:00 150 mm[Hg] [facility] Diastolic blood pressure 2024-01-15 03:18:00 75 mm[Hg] [facility] Heart rate 2024-01-15 03:18:00 79 /min [facility] Body temperature 2024-01-15 03:18:00 36.5 Ginny [facility] Respiratory rate 2024-01-15 03:18:00 18 /min [facility] Body height 2024-01-15 03:18:00 177.8 cm [facility] Body weight 2024-01-15 03:18:00 99.791 kg [facility] BMI 2024-01-15 03:18:00 31.57 kg/m2 [facility] Oxygen saturation in Arterial blood by Pulse oximetry 2024-01-15 03:18:00 98 /min [facility] Systolic blood pressure 2024-01-05 12:37:00 161 mm[Hg] [facility] Diastolic blood pressure 2024-01-05 12:37:00 76 mm[Hg] [facility] Heart rate 2024-01-05 12:37:00 76 /min [facility] Body temperature 2024-01-05 12:37:00 36.89 Ginny [facility] Respiratory rate 2024-01-05 12:37:00 18 /min [facility] Body height 2024-01-05 12:37:00 177.8 cm [facility] Body weight 2024-01-05 12:37:00 99.791 kg [facility] BMI 2024-01-05 12:37:00 31.57 kg/m2 [facility] Oxygen saturation in Arterial blood by Pulse oximetry 2024-01-05 12:37:00 96 /min [facility] Systolic blood pressure 2021-07-10 22:35:00 173 mm[Hg] [facility] Diastolic blood pressure 2021-07-10 22:35:00 71 mm[Hg] [facility] Heart rate 2021-07-10 22:35:00 50 /min [facility] Body height 2021-07-10 22:35:00 177.8 cm [facility] Body weight 2021-07-10 22:35:00 114.306 kg [facility] BMI 2021-07-10 22:35:00 36.16 kg/m2 [facility] in Arterial blood by Pulse oximetry 2021-07-10 22:35:00 99 /min [facility] Systolic blood pressure 2021-07-10 15:12:00 173 mm[Hg] [facility] Diastolic blood pressure 2021-07-10 15:12:00 71 mm[Hg] [facility] Heart rate 2021-07-10 15:10:00 50 /min [facility] Body height 2021-07-10 15:10:00 177.8 cm [facility] Body weight 2021-07-10 15:10:00 114.306 kg [facility] BMI 2021-07-10 15:10:00 36.16 kg/m2 [facility] Oxygen saturation in Arterial blood by Pulse oximetry 2021-07-10 15:10:00 99 /min [facility] Systolic blood pressure 2021-05-20 23:06:00 130 mm[Hg] [facility] Diastolic blood pressure 2021-05-20 23:06:00 76 mm[Hg] [facility] Heart rate 2021-05-20 23:05:00 67 /min [facility] Body temperature 2021-05-20 23:05:00 36.33 Ginny [facility] Respiratory rate 2021-05-20 23:05:00 18 /min [facility] Body height 2021-05-20 23:05:00 177.8 cm [facility] Body weight 2021-05-20 23:05:00 112.583 kg [facility] BMI 2021-05-20 23:05:00 35.61 kg/m2 [facility] Oxygen saturation in Arterial blood by Pulse oximetry 2021-05-20 23:05:00 97 /min [facility] Systolic blood pressure 2021-02-14 21:09:00 153 mm[Hg] [facility] Diastolic blood pressure 2021-02-14 21:09:00 76 mm[Hg] [facility] Heart rate 2021-02-14 21:09:00 58 /min [facility] Body temperature 2021-02-14 21:09:00 36.72 Ginny [facility] Respiratory rate 2021-02-14 21:09:00 18 /min [facility] Body weight 2021-02-14 21:09:00 115.667 kg [facility] BMI 2021-02-14 21:09:00 35.57 kg/m2 [facility] Oxygen saturation in Arterial blood by Pulse oximetry 2021-02-14 21:09:00 97 /min [facility] Systolic blood pressure 2020-04-12 14:51:00 126 mm[Hg] [facility] Diastolic blood pressure 2020-04-12 14:51:00 76 mm[Hg] [facility] Heart rate 2020-04-12 14:51:00 58 /min [facility] Body temperature 2020-04-12 14:51:00 36.72 Ginny [facility] Respiratory rate 2020-04-12 14:51:00 18 /min [facility] Body height 2020-04-12 14:51:00 180.3 cm [facility] Body weight 2020-04-12 14:51:00 113.399 kg [facility] BMI 2020-04-12 14:51:00 34.87 kg/m2 [facility] Oxygen saturation in Arterial blood by Pulse oximetry 2020-04-12 14:51:00 98 /min [facility] Systolic blood pressure 2020-03-12 13:30:00 115 mm[Hg] [facility] Diastolic blood pressure 2020-03-12 13:30:00 81 mm[Hg] [facility] Heart rate 2020-03-12 13:30:00 51 /min [facility] Respiratory rate 2020-03-12 13:30:00 20 /min [facility] Oxygen saturation in Arterial blood by Pulse oximetry 2020-03-12 13:30:00 97 /min [facility] Body temperature 2020-03-12 12:37:00 36.22 Ginny [facility] Body weight 2020-03-12 12:37:00 111.131 kg [facility] BMI 2020-03-12 12:37:00 34.17 kg/m2 [facility] Systolic blood pressure 2020-01-18 13:42:00 136 mm[Hg] [facility] Diastolic blood pressure 2020-01-18 13:42:00 73 mm[Hg] [facility] Heart rate 2020-01-18 13:42:00 52 /min [facility] Body temperature 2020-01-18 13:42:00 36.56 Ginny [facility] Respiratory rate 2020-01-18 13:42:00 18 /min [facility] Body height 2020-01-18 13:42:00 180.3 cm [facility] Body weight 2020-01-18 13:42:00 113.309 kg [facility] BMI 2020-01-18 13:42:00 34.84 kg/m2 [facility] Oxygen saturation in Arterial blood by Pulse oximetry 2020-01-18 13:42:00 96 /min [facility] Systolic blood pressure 2019-12-30 17:24:00 154 mm[Hg] [facility] Diastolic blood pressure 2019-12-30 17:24:00 79 mm[Hg] [facility] Heart rate 2019-12-30 17:24:00 60 /min [facility] Respiratory rate 2019-12-30 17:24:00 16 /min [facility] Oxygen saturation in Arterial blood by Pulse oximetry 2019-12-30 17:24:00 96 /min [facility] Body temperature 2019-12-30 16:55:00 36.39 Ginny [facility] Body height 2019-12-26 22:40:00 180.3 cm [facility] Body weight 2019-12-26 22:40:00 116.121 kg [facility] BMI 2019-12-26 22:40:00 35.72 kg/m2 [facility] Systolic blood pressure 2019-12-19 14:13:00 135 mm[Hg] [facility] Diastolic blood pressure 2019-12-19 14:13:00 72 mm[Hg] [facility] Heart rate 2019-12-19 14:11:00 56 /min [facility] Respiratory rate 2019-12-19 14:11:00 19 /min [facility] Body height 2019-12-19 14:11:00 180.3 cm [facility] Body weight 2019-12-19 14:11:00 117.935 kg [facility] BMI 2019-12-19 14:11:00 36.26 kg/m2 [facility] Oxygen saturation in Arterial blood by Pulse oximetry 2019-12-19 14:11:00 96 /min [facility] Procedures Procedure Date / Time Performed Performing Clinician Source POCT GLUCOSE (AUTOMATED) 2024-04-06 10:11:00 Mulugeta Palma [facility] POCT GLUCOSE (AUTOMATED) 2024-04-06 09:34:[address] [facility] POCT GLUCOSE (AUTOMATED) 2024-04-06 08:30:[address] [facility] POCT GLUCOSE (AUTOMATED) 2024-04-06 07:57:[address] [facility] POCT GLUCOSE (AUTOMATED) 2024-04-06 07:34[facility]06 06:56:00 Minerva [facility] COMP. METABOLIC PANEL ([id number]) 2024-04-06 06:56:00 Mulugeta Palma [facility] CBC WITH DIFF 2024-04-06 06:56:00 Mulugeta Palma [facility] URINALYSIS 2024-04-06 06:56:00 Minerva [facility] POCT GLUCOSE (AUTOMATED) 2024-04-06 06:44:00 [facility] 2024-04-03 21:51:36 Danya [facility] ACUTE CARE ARTERIAL BLOOD GAS 2024-04-03 19:07:00 Danya [facility] AMMONIA, PLASMA 2024-04-03 18:53:00 Nando Hagan [facility] URINALYSIS 2024-04-03 17:52:00 Danya [facility] URINE DRUG (IMMUNOASSAY) - COMPREHENSIVE DRUG SCREEN W/O REFLEX 2024-04-03 17:52:00 Danya [facility] XR CHEST 1 VW 2024-04-03 16:27:00 Nando Hagan [facility] XR FOOT 3+ VW RIGHT 2024-04-03 16:27:00 Darwin Hagan [facility] LACTIC ACID WHOLE BLOOD 2024-04-03 15:53:00 Ronnie Hagan [facility] PHOSPHORUS 2024-04-03 15:52:00 Danya [facility] CREATINE KINASE 2024-04-03 15:52:00 Nando Hagan [facility] MAGNESIUM 2024-04-03 15:52:00 Danya [facility] TROPONIN I 2024-04-03 15:52:00 Danya [facility] COMP. METABOLIC PANEL ([id number]) 2024-04-03 15:52:00 Danya [facility] ETHANOL 2024-04-03 15:52:00 Danya [facility] CBC WITH DIFF 2024-04-03 15:52:00 Nando Hagan [facility] GALV ONLY - INFLUENZA A B RSV PCR 2024-04-03 15:52:00 Danya [facility] N-TERMINAL PRO-BNP 2024-04-03 15:52:00 Abhijit Hagan [facility] COVID-19 (ID NOW RAPID TESTING) 2024-04-03 15:52:00 Danya [facility] POCT GLUCOSE(AGE >30DAYS) 2024-04-03 15:46:00 Nando Hagan [facility] POCT GLUCOSE (AUTOMATED) 2024-04-03 15:43:00 Nando Hagan [facility] CT CERVICAL SPINE WO CONTRAST 2024-04-03 15:38:07 Danya [facility] CT HEAD WO CONTRAST 2024-04-03 15:38:07 Darwin Hagan [facility] POCT GLUCOSE (AUTOMATED) 2024-04-01 00:04:00 Racheal Tee [facility] POCT GLUCOSE (AUTOMATED) 2024-03-31 23:19:00 Racheal Tee [facility] COMP. METABOLIC PANEL ([id number]) 2024-03-31 19:37:00 Johnny Tee [facility] CBC WITH DIFF 2024-03-31 19:37:00 Johnny Tee [facility] EXTRA TUBE LT. BLUE 2024-03-31 19:37:00 Johnny Tee [facility] CT CERVICAL SPINE WO CONTRAST 2024-03-31 19:14:18 Johnny Tee [facility] CT HEAD WO CONTRAST 2024-03-31 19:14:18 Johnny Tee [facility] XR KNEE 3 VW RIGHT 2024-03-29 22:12:44 Kvng Frank [facility] EKG-12 LEAD 2024-03-22 21:31:10 Libby Fernandez [facility] URINALYSIS 2024-03-22 17:07:00 Libby Fernandez [facility] EXTRA TUBE URINE CULTURE 2024-03-22 17:07:00 Baljit Gayle [facility] XR CHEST 2 VW 2024-03-22 16:13:07 Libby Fernandez [facility] CREATINE KINASE 2024-03-22 15:46:00 Libby Fernandez [facility] TROPONIN I 2024-03-22 15:46:00 Libby Fernandez [facility] HEPATIC FUNCTION PANEL ([id number]) (ALB,T.PRO,BILI T,BU/BC,ALT,AST,ALK PHOS) 2024-03-22 15:46:00 Libby Fernandez [facility] BASIC METABOLIC PANEL (NA, K, CL, CO2, GLUCOSE, BUN, CREATININE, CA) 2024-03-22 15:46:00 Libby Fernandez [facility] CBC WITH DIFF 2024-03-22 15:46:00 Libby Fernandez [facility] GLYCOSYLATED HEMOGLOBIN (A1C) 2024-03-22 15:46:00 Baljit Gayle [facility] N-TERMINAL PRO-BNP 2024-03-22 15:46:00 Libby Martinez [facility] EXTRA TUBE LT. BLUE 2024-03-22 15:46:00 Baljit Gayle [facility] POCT GLUCOSE (AUTOMATED) 2024-03-12 04:41:00 VeniceYoav harrell [facility] POCT GLUCOSE (AUTOMATED) 2024-03-12 03:45:00 VeniceYoav harrellm Anthony [facility] POCT GLUCOSE (AUTOMATED) 2024-03-12 02:29:00 VeniceYoav harrellm Anthony [facility] CREATINE KINASE 2024-03-12 01:42:00 Dl Millard [facility] TROPONIN I 2024-03-12 01:42:00 Dl Millard [facility] COMP. METABOLIC PANEL ([id number]) 2024-03-12 01:42:00 Dl Millard [facility] CBC WITH DIFF 2024-03-12 01:42:00 Dl Millard [facility] COMP. METABOLIC PANEL ([id number]) 2024-02-10 17:52:[address] [facility] CBC WITH DIFF 2024-02-10 17:52:00 [facility] 2024-02-09 21:03:00 Tara Ireland [facility] CT HEAD WO CONTRAST 2024-02-09 20:02:00 Tara Ireland [facility] URINALYSIS 2024-02-06 15:15:00 Destiny Muller [facility] XR LUMBAR SPINE 3 VW 2024-02-06 15:00:46 Rolly Muller [facility] CT ABDOMEN PELVIS WO CONTRAST 2024-01-30 18:58:58 Zo Green [facility] COMP. METABOLIC PANEL ([id number]) 2024-01-30 16:35:00 Zo Green [facility] CBC WITH DIFF 2024-01-30 16:35:00 [facility]ATMENT 2024-01-15 03:41:26 Doctor Unassigned, Alba [facility] ASSIGNMENT OF BENEFITS 2024-01-15 03:35:20 Docto r Unassigned, Alba [facility] ASSIGNMENT OF BENEFITS 2021-05-20 22:59:18 Docto r Unassigned, Alba [facility] CONSENT/REFUSAL FOR DIAGNOSIS AND TREATMENT 2021-02-14 21:51:32 Doctor Unassigned, Alba [facility] ASSIGNMENT OF BENEFITS 2021-02-14 21:50:52 Docto r Unassigned, Alba [facility] XR TIBIA FIBULA 2 VW RIGHT 2020-03-12 13:27:36 Chelle Fernandez [facility] XR LUMBAR SPINE 3 VW 2020-02-16 18:44:17 Basim Aranda [facility] ASSIGNMENT OF BENEFITS 2020-02-16 17:58:39 Docto r Unassigned, Alba [facility] COLONOSCOPY (ENDO) 2019-12-30 15:52:18 Joel Aranda [facility] POCT GLUCOSE(AGE >30DAYS) 2019-12-30 13:50:00 Yesenia Pope [facility] DAY SURGERY - ADC 2019-12-30 06:01:00 Doctor Ileana ssigned, Alba [facility] Encounters Start Date/Time End Date/Time Encounter Type Admission Type Attending [facility] Care Facility Care Department Encounter ID Source 2024-04-11 00:00:00 2024-04-11 14:11:19 Patient Outreach Destiny Prajapati [id number] [facility] 2024-04-06 01:32:00 2024-04-06 06:05:00 Emergency X MULUGETA PALMA [facility] ERT [id number] [facility] 2024-04-06 01:32:00 2024-04-06 06:05:00 Emergency Mulugeta Palma [facility] [id number] [id number] [id number] [facility] 2024-04-04 00:00:00 2024-04-04 08:34:06 Patient Outreach [place]iny [facility] [place] [id number] 350.1.13.10 4.2.7.2.686 [id number] [facility] 2024-04-03 09:43:00 2024-04-03 17:45:00 Emergency X NANDO HAGAN JOEYRAFAELYamileth NANDO [facility] ERT [id number] [facility] 2024-04-03 09:43:00 2024-04-03 17:45:00 Emergency Maksimyamileth [facility] [id number] 350.1.13.10 4.2.7.2.686 [id number] [facility] 2024-04-01 00:00:00 2024-04-01 14:18:07 Patient Outreach Destiny [place] [id number] 350.1.13.10 [id number] [id number] [facility] 2024-03-31 12:38:00 2024-03-31 19:42:00 Emergency X JOHNNY TEE [facility] ERT [id number] [facility] 2024-03-31 12:38:00 2024-03-31 19:42:00 Emergency Johnny Tee [facility] [id number] 350.1.13.10 4.2.7.2.686 [id number] [facility] 2024-03-30 00:00:00 2024-03-30 10:17:48 Patient Outreach AloDestiny [place] [id number] 350.1.13.10 4.2.7.2.686 [id number] [facility] 2024-03-30 00:00:00 2024-03-30 08:13:15 Patient Outreach AloMindyDestinycassie [place] [id number] 350.1.13.10 4.2.7.2.686 [id number] [facility] 2024-03-29 14:48:00 2024-03-29 19:06:00 Emergency X KVNG [facility] [id number] [facility] 2024-03-29 14:48:00 2024-03-29 19:06:00 Emergency Katty Kvng [facility] [id number] 350.1.13.10 4.2.7.2.686 [id number] 014 [id number] [facility] 2024-03-29 00:00:00 2024-03-29 14:12:53 Patient Outreach AloChristenDestinyelen [place] 1.2.840.114 350.1.13.10 4.2.7.2.686 [id number] 403 [id number] [facility] 2024-03-29 00:00:00 2024-03-29 08:02:10 Patient Outreach Destiny Prajapati 1.2.840.114 350.1.13.10 4.2.7.2.686 [id number] 403 [id number] [facility] 2024-03-23 00:00:00 2024-03-23 00:00:00 Patient Outreach Nargis Moore 1.2.840.114 350.1.13.10 4.2.7.2.686 [id number] 403 [id number] [facility] 2024-03-23 00:00:00 2024-03-23 00:00:00 Patient Outreach Destiny Prajapati 1.2.840.114 350.1.13.10 4.2.7.2.686 [id number] [facility] 2024-03-23 00:00:00 2024-03-23 00:00:00 Patient Outreach Destiny Prajapati 1.2.840.114 350.1.13.10 4.2.7.2.686 [id number] 403 [id number] [facility] 2024-03-23 00:00:00 2024-03-23 00:00:00 Patient Outreach Destiny Prajapati 1.2.840.114 350.1.13.10 4.2.7.2.686 [id number] 403 [id number] [facility] 2024-03-22 09:57:00 2024-03-22 17:18:00 Emergency X BALJIT GAYLE PAUL [facility] ERT [id number] [facility] 2024-03-22 09:57:00 2024-03-22 17:18:00 [facility] 1.2.840.114 350.1.13.10 4.2.7.2.686 [id number] [facility] 2024-03-11 20:22:00 2024-03-12 00:03:00 Emergency X DL MILLARD [facility] ERT [id number] [facility] 2024-03-11 20:22:00 2024-03-12 00:03:00 Emergency Dl Millard [facility] 1.2.840.114 350.1.13.10 4.2.7.2.686 [id number] [facility] 2024-02-10 11:58:00 2024-02-10 15:10:00 Emergency X DAVID PAUL [facility] ERT [id number] [facility] 2024-02-10 11:58:00 2024-02-10 15:10:00 Emergency David Paul [facility] 1.2.840.114 350.1.13.10 4.2.7.2.686 [id number] [facility] 2024-02-09 14:01:00 2024-02-09 21:19:00 Emergency X TARA IRELAND [facility] ERT [id number] [facility] 2024-02-09 14:01:00 2024-02-09 21:19:00 Emergency Beka Tara Julio Cesar [facility] 1.2.840.114 350.1.13.10 4.2.7.2.686 [id number] [id number] [facility] 2024-02-06 09:21:00 2024-02-06 11:51:00 Emergency X DESTINY MULLER [facility] ERT [id number] [facility] 2024-02-06 09:21:00 2024-02-06 11:51:00 Emergency Destiny Muller [facility] 1.2.840.114 350.1.13.10 4.2.7.2.686 [id number] [id number] [facility] 2024-01-30 10:06:00 2024-01-30 15:02:00 Emergency X ABDIAZIZSUSHMAZO KNOWLES [facility] ERT [id number] [facility] 2024-01-30 10:06:00 2024-01-30 15:02:00 Emergency Norma Zo [facility] 1.2.840.114 350.1.13.10 4.2.7.2.686 [id number] 084 [id number] [facility] 2024-01-14 21:21:00 2024-01-14 21:48:00 Emergency X [facility] ERT [id number] [facility] 2024-01-14 21:21:00 2024-01-14 21:48:00 Emergency Silas Andersen [facility] 1..840.114 350.1.13.10 4.2.7.2.686 [id number] [id number] [facility] 2024-01-05 06:39:00 2024-01-05 07:57:00 Emergency X LARS DIAZRA [facility] ERT [id number] [facility] 2024-01-05 06:39:00 2024-01-05 07:57:00 Emergency Jackie Diaz [facility] 1..840.114 350.1.13.10 4.2.7.2.686 [id number] [facility] 2022-12-29 13:30:00 2022-12-29 14:30:00 CAV Lorene Stein 2.16.840. [id number]. [id number] [id number] 2.16.840.1. 627690.4.6. [id number] [facility] 2022-10-17 00:00:00 2022-10-17 00:00:00 Outpatient [facility] [id number] [facility] 2022-10-17 00:00:00 2022-10-17 00:00:00 Outpatient [facility] [id number] [facility] 2022-09-07 00:00:00 2022-09-07 00:00:00 Outpatient [facility] [id number] [facility] 2022-08-21 00:00:00 2022-08-21 00:00:00 Tl Guzman [facility] 1..840.114 350.1.13.10 4.2.7.2.686 [id number] [id number] [facility] 2022-02-17 00:00:00 2022-02-17 00:00:00 Refpete Tl Aranda [facility] BU[facility] 1.2.840.114 350.1.13.10 4.2.7.2.686 [id number] 044 [id number] [facility] 2021-11-06 10:40:00 2021-11-06 10:40:00 Outpatient R TL ARANDA [facility] [id number] [facility] 2021-10-28 00:00:00 2021-10-28 00:00:00 Refpete Tl Aranda [facility] 1.2.840.114 350.1.13.10 4.2.7.2.686 [id number] [id number] [facility] 2021-10-03 00:00:00 2021-10-03 00:00:00 Refill Tl Aranda [facility] 1.2.840.114 350.1.13.10 4.2.7.2.686 [id number] 044 [id number] [facility] 2021-09-09 00:00:00 2021-09-09 00:00:00 Telephone Georgina Garcia [facility] 1.2840.114 350.1.13.10 4.2.7.2.686 [id number] [id number] [facility] 2021-07-18 00:00:00 2021-07-18 00:00:00 Patient Secure Msg Doctor Unassigned, Alba [facility] 1.2840.114 350.1.13.10 4.2.7.2.686 [id number] [facility] 2021-07-12 00:00:00 2021-07-12 00:00:00 Telephone Tl Aranda [facility] Building 1.2.840.114 350.1.13.10 4.2.7.2.686 [id number] 044 [id number] [facility] 2021-07-10 15:55:33 2021-07-10 15:55:44 Office Visit Tl Aranda [facility] 1.2.840.114 350.1.13.10 4.2.7.2.686 [id number] [id number] [facility] 2021-07-10 09:55:19 2021-07-10 11:00:50 Office Visit Tl Aranda [facility] 1.2.840.114 350.1.13.10 4.2.7.2.686 [id number] [id number] [facility] 2021-07-10 10:00:00 2021-07-10 10:00:00 Outpatient R TL ARANDA [facility] [id number] [facility] 2021-07-09 00:00:00 2021-07-09 00:00:00 Telephone Tl Aranda [facility] Building 1.2.840.114 350.1.13.10 4.2.7.2.686 [id number] [facility] 2021-06-19 00:00:00 2021-06-19 00:00:00 Refill Tl Aranda [facility] Building 1.2.840.114 350.1.13.10 4.2.7.2.686 [id number] [id number] [facility] 2021-05-20 17:59:38 2021-05-20 18:39:03 Urgent Care Provider, [facility] Care Lesli Oscar [facility] Office Building One 1.2.840.114 350.1.13.10 4.2.7.2.686 [id number] 044 [id number] [facility] 2021-05-20 18:20:00 2021-05-20 18:20:00 Outpatient R [facility] [id number] [facility] 2021-05-20 00:00:00 2021-05-20 00:00:00 Orders Only Doctor Unassigned, Alba [facility] 1.20.114 350.1.13.10 4.2.7.2.686 [id number] [facility] 2021-05-16 00:00:00 2021-05-16 00:00:00 Refill Tl Aranda [facility] 1.84.114 350.1.13.10 4.2.7.2.686 [id number] [id number] [facility] 2021-02-14 16:53:57 2021-02-14 17:08:57 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, 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 Tl Aranda [facility] 1.84.114 350.1.13.10 4.2.7.2.686 [id number] [facility] 2021-02-14 15:55:11 2021-02-14 16:27:03 Office Visit Tl Aranda [facility] 1.284.114 350.1.13.10 4.2.7.2.686 [id number] [id number] [facility] 2021-02-14 16:00:00 2021-02-14 16:00:00 Outpatient R TL ARANDA [facility] [id number] [facility] 2021-02-14 00:00:00 2021-02-14 00:00:00 Orders Only Doctor Unassigned, Alba [facility] 1.284.114 350.1.13.10 4.2.7.2.686 [id number] [facility] 2021-02-08 00:00:00 2021-02-08 00:00:00 Refill Rosa Elenahannah Tl [facility] 1.2.840.114 350.1.13.10 4.2.7.2.686 [id number] [id number] [facility] 2021-01-28 00:00:00 2021-01-28 00:00:00 Telephone Rosa ElenaTl young [facility] 1.2.840.114 350.1.13.10 4.2.7.2.686 [id number] [id number] [facility] 2021-01-22 00:00:00 2021-01-22 00:00:00 Telephone JenTl huerta [facility] 1.2.840.114 350.1.13.10 4.2.7.2.686 [id number] [id number] [facility] 2021-01-21 00:00:00 2021-01-21 00:00:00 Refill Rosa ElenahannahTl [facility] 1.2.840.114 350.1.13.10 4.2.7.2.686 [id number] [id number] [facility] 2020-10-31 13:30:00 2020-10-31 13:30:00 Outpatient R NIMISHA YING [facility] [id number] [facility] 2020-10-09 14:40:00 2020-10-09 14:40:00 Outpatient TL MCCAULEY [facility] [id number] [facility] 2020-09-24 09:20:00 2020-09-24 09:20:00 Outpatient KUNAL BATES [facility] [id number] [facility] 2020-07-09 09:20:00 2020-07-09 09:20:00 Outpatient R TL ARANDA [facility] [id number] [facility] 2020-07-09 08:17:40 2020-07-09 08:37:40 Telemedici ne Visit Tl Aranda [facility] nal Building 1.2840.114 350.1.13.10 4.2.7.2.686 [id number] [facility] 2020-06-28 00:00:00 2020-06-28 00:00:00 Darrell Billings [facility] Building 1.2840.114 350.1.13.10 4.2.7.2.686 [id number] [facility] 2020-04-19 08:00:00 2020-04-19 08:00:00 Outpatient R TL ARANDA [facility] [id number] [facility] 2020-04-12 09:46:54 2020-04-12 10:06:54 Urgent Care Provider, [facility] 1.284.114 350.1.13.10 4.2.7.2.686 [id number] [id number] [facility] 2020-04-12 10:00:00 2020-04-12 10:00:00 Outpatient R SHANICE YOSSI [facility] [id number] [facility] 2020-04-09 00:00:00 2020-04-09 00:00:00 Telephone Tl Aranda [facility] Building 1.2.840.114 350.1.13.10 4.2.7.2.686 [id number] [facility] 2020-04-05 00:00:00 2020-04-05 00:00:00 Telephone Tl Aranda [facility] Building 1.2840.114 350.1.13.10 4.2.7.2.686 [id number] [facility] 2020-03-16 10:02:04 2020-03-16 10:02:51 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 Idalia [facility] 1.2.840.114 350.1.13.10 4.2.7.2.686 [id number] [facility] 2020-03-15 15:00:00 2020-03-15 15:00:00 Outpatient R IDALIA, [facility] [id number] [facility] 2020-03-14 16:30:00 2020-03-14 16:30:00 Outpatient R DARRELL BECKFORD [facility] [id number] [facility] 2020-03-14 15:42:00 2020-03-14 15:57:00 Telemedici ne Visit Darrell Beckford [facility] 1.2.840.114 350.1.13.10 4.2.7.2.686 [id number] [id number] [facility] 2020-03-14 00:00:00 2020-03-14 00:00:00 Telephone Tl Aranda [facility] 1.2.840.114 350.1.13.10 4.2.7.2.686 [id number] [id number] [facility] 2020-03-12 07:53:07 2020-03-12 08:57:00 Emergency Chelle Fernandez [facility] 1.2.840.114 350.1.13.10 4.2.7.2.686 [id number] [facility] 2020-03-12 07:53:07 2020-03-12 08:57:00 Emergency X CHELLE FERNANDEZ [facility] ERT [id number] [facility] 2020-03-08 15:00:00 2020-03-08 15:00:00 Outpatient R IDALIA, [facility] [id number] [facility] 2020-02-28 13:00:00 2020-02-28 13:00:00 Outpatient R TL ARANDA [facility] [id number] [facility] 2020-02-28 07:16:07 2020-02-28 07:56:07 Telemedici ne Visit Manoj [facility] 1.2840.114 350.1.13.10 4.2.7.2.686 [id number] [facility] 2020-02-23 00:00:00 2020-02-23 00:00:00 Telephone dawood [facility] 1.2.114 350.1.13.10 4.2.7.2.686 [id number] [facility] 2020-02-16 12:59:15 2020-02-16 23:59:00 Outpatient R MANOJ [facility] [id number] [facility] 2020-02-16 12:59:00 2020-02-16 23:59:00 Hospital Encounter Manoj [facility] 1.840.114 350.1.13.10 4.2.7.2.686 [id number] [facility] 2020-02-16 00:00:00 2020-02-16 00:00:00 Orders Only Doctor Unassigned, Alba [facility] 1.2840.114 350.1.13.10 4.2.7.2.686 [id number] [facility] 2020-02-16 00:00:00 2020-02-16 00:00:00 Telephone Manoj [facility] 1.284.114 350.1.13.10 4.2.7.2.686 [id number] [facility] 2020-01-18 07:23:58 2020-01-18 08:32:20 Office Visit Tl Aranda [facility] 1.2.840.114 350.1.13.10 4.2.7.2.686 [id number] [facility] 2020-01-18 07:20:00 2020-01-18 07:20:00 Outpatient R TL ARANDA [facility] [id number] [facility] 2020-01-18 00:00:00 2020-01-18 00:00:00 Letter (Out) Doctor Unassigned, Alba [facility] 1.2840.114 350.1.13.10 4.2.7.2.686 [id number] [facility] 2020-01-07 00:00:00 2020-01-07 00:00:00 Natividad Corrigan [facility] 1.2.840.114 350.1.13.10 4.2.7.2.686 [id number] [facility] 2020-01-04 00:00:00 2020-01-04 00:00:00 Telephone Tl Aranda [facility] 1.2.840.114 350.1.13.10 4.2.7.2.686 [id number] [id number] [facility] 2019-12-30 07:35:00 2019-12-30 11:49:00 Hospital Encounter Glo Finn [facility] 1.2840.114 350.1.13.10 4.2.7.2.686 [id number] [facility] 2019-12-30 07:35:00 2019-12-30 11:49:00 Outpatient R GLO FINN [facility] CASEY [id number] [facility] 2019-12-30 00:00:00 2019-12-30 00:00:00 Orders Only Doctor Unassigned, Alba [facility] 1.2.840.114 350.1.13.10 4.2.7.2.686 [id number] [facility] 2019-12-19 08:02:28 2019-12-19 09:08:19 Office Visit Kendall Campa [facility] Kensett Ann R[facility] 1..840.114 350.1.13.10 4.2.7.2.686 [id number] [facility] 2019-12-01 15:15:00 2019-12-01 15:15:00 Outpatient R JOCELYN GREER [facility] [id number] [facility] 2019-10-26 14:45:00 2019-10-26 15:36:20 Outpatient R NIMISHA YING [facility] [id number] [facility] 2019-06-10 10:30:00 2019-06-10 12:20:48 Outpatient R TL ARANDA [facility] [id number] [facility] 2019-05-30 14:20:00 2019-05-30 17:18:22 Outpatient R DARRELL MAXWELL III [facility] [id number] [facility] 2019-05-24 08:45:00 2019-05-24 08:45:00 Outpatient MARIAMA REAL [facility] [id number] [facility] 2019-04-26 08:30:00 2019-04-26 09:03:15 Outpatient MARIAMA REAL [facility] [id number] [facility] 2019-01-12 15:30:00 2019-01-12 16:04:35 Outpatient NATIVIDAD GLASS [facility] [id number] [facility] Results Test Description Test Time Test Comments Results Result Co mments Source [facility] 09:35:12* Test Item Value Reference Range Interpretation Comme nts POCT GLU (test code = 6608241269) 349 mg/dL 70-110 H Lab Interpretation (test cod e = 49648-0) Abnormal [facility] GLUCOSE (AUTOMATED)2024-04-06 08:34:06* Test Item Value Reference Range Interpretation Comme [facility] POCT GLU (test code = 3527196881) 299 mg/dL 70-110 H Lab Interpretation (test cod e = 44264-6) Abnormal [facility] GLUCOSE (AUTOMATED)2024-04-06 07:58:40* Test Item Value Reference Range Interpretation Comme [facility] POCT GLU (test code = 1022469926) 446 mg/dL 70-110 H Lab Interpretation (test cod e = 75663-7) Abnormal [facility]. Metabolic Panel (96181)2024-04-06 07:47:06* Test Item Value Reference Range Interpretation Comme [facility] NA (test code = 5912440470) 126 mmol/L 135-145 L K (test code = 1575647060) 4.4 mmol/L 3.5-5.0 CL (test code = 6215421618) 93 mmol/L 98-108 L CO2 TOTAL (test code = 5152368828) 27 mmol/L 23-31 AGAP (test code = 1423025963) 6 2-16 BUN (test code = 3218621686) 21 mg/dL 7-23 GLUCOSE (test code = 4903141717) 518 mg/dL 70-110 HH CREATININE (test code = 2160-0) 1.08 mg/dL 0.60-1.25 TOTAL BILI (test code = 4006572772) 0.7 mg/dL 0.1-1.1 CALCIUM (test code = 8259348381) 8.1 mg/dL 8.6-10.6 L T PROTEIN (test code = 2322913114) 6.6 g/dL 6.3-8.2 ALBUMIN (test code = 3660215288) 3.5 g/dL 3.5-5.0 ALK PHOS (test code = 0807803659) 160 U/L 34-122 H ALTv (test code = 1742-6) 15 U/L 5-50 AST(SGOT) (test code = 4887676158) 33 U/L 13-40 eGFR (test code = 37103-9) 73.8 mL/min/1.73m2 CKD-EPI eGFR (2020). Assuming creatinine has been stable day-to-day for at least three months, the eGFR indicates Category G2 (60 - 89 mL/min/1.73 m2) Lab Interpretation (test code = 64605-4) Abnormal [facility] 07:44:19* Test Item Value Reference Range Interpretation Comme nts MAGNESIUM (test code = 7065144769) 1.6 mg/dL 1.7-2.4 L Lab Interpretation (test cod e = 85390-2) Abnormal [facility]2024-04-06 07:36:55* Test Item Value Reference Range Interpretation Comme nts POCT GLU (test code = 7098565257) 476 mg/dL 70-110 HH Lab Interpretation (test cod e = 61610-5) Abnormal [facility]ano[facility]bc with [id number] 07:23:19* Test Item Value Reference Range Interpretation [...] 34.6 g/dL 31.2-35.0 RDW-SD (test code = 87553-7) 39.8 fL 38.5-51.6 RDW-CV (test code = 788-0) 12.2 % 12.1-15.4 PLT (test code = 777-3) 251 150-328 MPV (test code = 56652-6) 10.5 fL 9.8-13.0 NRBC/100 WBC (test code = 7065945970) 0.0 0.0-10.0 NRBC x10^3 (test code = 6860728051) See_Comment [Automated messa ge] The system which generated this result transmitted reference range: 10*3/?L. The reference range was not used to interpret this result as normal/abnormal. GRAN MAT (NEUT) % (test code = 770-8) 76.0 % IMM GRAN % (test code = 2337299864) 0.90 % LYMPH % (test code = 736-9) 11.5 % MONO % (test code = 5905-5) 10.5 % EOS % (test code = 713-8) 0.8 % BASO % (test code = 706-2) 0.3 % GRAN MAT x10^3(ANC) (test code = 7587089081) 9.08 10*3/uL 1.99-6.95 H IMM GRAN x10^3 (test code = 5130724359) 0.11 10*3/uL 0.00-0.06 H LYMPH x10^3 (test code = 731-0) 1.38 10*3/uL 1.09-3.23 MONO x10^3 (test code = 742-7) 1.26 10*3/uL 0.36-1.02 H EOS x10^3 (test code = 711-2) 0.10 10*3/uL 0.06-0.53 BASO x10^3 (test code = 704-7) 0.04 10*3/uL 0.01-0.09 Lab Interpretation (test code = 37525-6) Abnormal [facility]ATED[facility]2024-04-06 06:45:34* Test Item Value Reference Range Interpretation Comme nts POCT GLU (test code = 6269866034) 495 mg/dL 70-110 HH Lab Interpretation (test cod e = 46049-9) Abnormal [facility] HEAD WO [id number] 20:17:39EXAMS: CT HEAD WO CONTRAST, CT CERVICAL [...] facetarthropathy, most pronounced at C5-C6 and C6-C7, unchanged.[facility] CERVICAL SPINE WO [id number] 20:17:39EXAMS: CT HEAD WO CONTRAST, CT CERVICAL SPINE WO CONTRAST HISTORY: 69 years-old Male; Provided indication: Head trauma, minor (Age >=65y) . TECHNIQUE: Axial CT of the head and cervical spine was p erformed andreconstructed at 5 mm intervals. Coronal and sagittal reformatted imageswere generated.COMPARISON: CT head dated 03/31/2024 FINDINGS: HEAD: The ventricles and sulci are prominent but within normal limits for thepatient's age. No midline shift or pathological extra-axial fluidcollection is present. The basal cisterns are unremarkable. No acute intraparenchymal hemorrhage or significant mass effect isvisualized. Patchy hypoattenuation the biconvexity deep white matter isnonspecific andlikely represents ischemic small vessel change.. Thegray-white matter differentiation is preserved.? The mastoid air cells and paranasal air sinuses are clear. The calvariumand central skull base are unremarkable. CERVICAL SPINE:Normal cervical lordosis is preserved. The vertebral bodies are normal inheight and alignment. No acute fracture or traumatic malalignment. Thecraniocervical junction isintact. Moderate multilevel degenerative changes in form of the marginalosteophytosis, endplate sclerosis, disc space narrowing and facetarthropathy, most pronounced at C5-C6 and C6-C7, unchanged.[facility]anoAmmonia, [id number] 19:25:25* Test Item Value Reference Range Interpretation Comme nts AMMONIA (test code = 4693493770) 9-33 L Lab Interpretation (test cod e = 71679-3) Abnormal [facility] 3+ VW [id number] 17:22:17XR FOOT 3+ VW RIGHT 04/03/2024 10:15 AM History: r/o fx/osteo midfoot Comparison: None Findings: 3 views of the right foot are received for interpretation. There is no fracture or dislocation. Soft tissues are unremarkable. Thereare no radiopaque foreign bodies. Joint spaces are preserved.[facility] CHEST 1 [id number] 17:18:12XR CHEST 1 VW HISTORY: ?r/o CHF/infiltrate COMPARISON: March 22, 2024 FINDINGS: The patient is slightly rotated on the film. ?There is noinfiltrate or pleural effusion. ?The cardiomediastinal silhouette is withinnormal limits. ?There is no pneumothorax.[facility]anoTROPONIN [id number] 16:54:12* Test Item Value Reference Range Interpretation Comme nts TROPONIN I (test code = 5219738729) 0.006 ng/mL <=0.034 RJ (test code = [...] of biotin. Lab Interpretation (test code = 98424-4) Normal [facility]anoN-TERMINAL [id number] 16:54:12* Test Item Value Reference Range Interpretation Comme nts NT-proBNP (test code = 45630-8) 302 pg/mL <=125 RJ (test code = RJ) Result Indeterminate-Consid er causes of NT-proBNP elevation other than Heart failure such as acute coronary syndrome, pulmonary embolism, pulmonary hypertension, sepsis, stroke, and renal dysfunction. Lab Interpretation (test code = 17762-1) Abnormal [facility]anoETHANOL2024-05-12 16:53:42 ALCOHOL<10mg/dL04/03/2024 11:53 AM [facility] SERVICESToxic Greater than or equal to 80 mg/dL. NOTE: Whole blood values are approximately 10% to 15% lower than serum and plasma.[facility]anoCreat[facility] Kinase 2024-04-03 16:43:13* Test Item Value Reference Range Interpretation Comme nts CK (test code = 5619196947) 35 U/L 33-194 Lab Interpretation (test cod e = 60222-4) Normal [facility]anoPhosphorus2024-05-12 16:43:13* Test Item Value Reference Range Interpretation Comme nts PHOSPHORUS (test code = 8051960046) 3.6 mg/dL 2.5-5.0 Lab Interpretation (test cod e = 97845-8) Normal [facility]anoCOMP. METABOLIC PANEL (16219)2024-04-03 16:43:12* Test Item Value Reference Range Interpretation Comme nts NA (test code = 4895494891) 132 mmol/L 135-145 L K (test code = 7085069456) 4.4 mmol/L 3.5-5.0 Slight hemolysis CL (test code = 0196101515) 97 mmol/L 98-108 L CO2 TOTAL (test code = 9293079407) 29 mmol/L 23-31 AGAP (test code = 2381165751) 6 2-16 BUN (test code = 1140665833) 17 mg/dL 7-23 Slight hemolysis GLUCOSE (test code = 1131904801) 353 mg/dL 70-110 H CREATININE (test code = 2160-0) 0.89 mg/dL 0.60-1.25 TOTAL BILI (test code = 7401749299) 0.9 mg/dL 0.1-1.1 CALCIUM (test code = 0511175048) 9.0 mg/dL 8.6-10.6 T PROTEIN (test code = 7874583191) 6.6 g/dL 6.3-8.2 ALBUMIN (test code = 2169624696) 3.7 g/dL 3.5-5.0 ALK PHOS (test code = 9838591866) 118 U/L 34-122 Slight hemolysis ALTv (test code = 1742-6) 14 U/L 5-50 AST(SGOT) (test code = 6081625769) 19 U/L 13-40 Slight hemolysis eGFR (test code = 69533-8) 92.2 mL/min/1.73m2 CKD-EPI eGFR (2020). Assuming creatinine has been stable day-to-day for at least three months, the eGFR indicates Category G1 (>= 90 mL/min/1.73 m2) Lab Interpretation (test code = 22121-5) [facility] 16:43:12* Test Item Value Reference Range Interpretation Comme nts MAGNESIUM (test code = 3854984893) 1.6 mg/dL 1.7-2.4 L Lab Interpretation (test cod e = 01332-5) Abnormal [facility] WITH IHSA6079-47-21 16:35:09* Test Item Value Reference Range Interpretation [...] 34.0 g/dL 31.2-35.0 RDW-SD (test code = 10471-0) 39.7 fL 38.5-51.6 RDW-CV (test code = 788-0) 12.3 % 12.1-15.4 PLT (test code = 777-3) 258 150-328 MPV (test code = 84053-6) 10.0 fL 9.8-13.0 NRBC/100 WBC (test code = 1477414024) 0.0 0.0-10.0 NRBC x10^3 (test code = 5098005144) See_Comment [Automated messa ge] The system which generated this result transmitted reference range: 10*3/?L. The reference range was not used to interpret this result as normal/abnormal. GRAN MAT (NEUT) % (test code = 770-8) 81.2 % IMM GRAN % (test code = 6137779132) 0.70 % LYMPH % (test code = 736-9) 11.3 % MONO % (test code = 5905-5) 6.5 % EOS % (test code = 713-8) 0.1 % BASO % (test code = 706-2) 0.2 % GRAN MAT x10^3(ANC) (test code = 6069397091) 9.37 10*3/uL 1.99-6.95 H IMM GRAN x10^3 (test code = 3593402831) 0.08 10*3/uL 0.00-0.06 H LYMPH x10^3 (test code = 731-0) 1.30 10*3/uL 1.09-3.23 MONO x10^3 (test code = 742-7) 0.75 10*3/uL 0.36-1.02 EOS x10^3 (test code = 711-2) 0.06-0.53 L BASO x10^3 (test code = 704-7) 0.01-0.09 Lab Interpretation (test code = 77930-1) [facility]normal [facility]anoLameic Acid Whole Pvndy8066-89-92 16:30:22* Test Item Value Reference Range Interpretation Comme nts LACTIC ACID (test code = 4319494827) 1.63 mmol/L 0.50-2.20 QUES Lab Interpretation (test cod e = 83469-3) Normal [facility] GLUCOSE(AGE >30DAYS)2024-04-03 15:46:00* Test Item Value Reference Range Interpretation Comme nts POCT Glu (age>30days) (test code = 3342) 305 mg/dL 70-110 A Lab Interpretation (test cod e = 37423-6) Abnormal [facility] GLUCOSE (AUTOMATED)2024-04-03 15:44:37* Test Item Value Reference Range Interpretation Comme nts POCT GLU (test code = 4437615888) 305 mg/dL 70-110 H Lab Interpretation (test cod e = 83776-0) Abnormal [facility] GLUCOSE (AUTOMATED)2024-04-01 00:05:36* Test Item Value Reference Range Interpretation Comme nts POCT GLU (test code = 3707752014) 215 mg/dL 70-110 H Lab Interpretation (test cod e = 23039-7) Abnormal [facility] GLUCOSE (AUTOMATED)2024-03-31 23:20:38* Test Item Value Reference Range Interpretation Comme nts POCT GLU (test code = 7552578516) 468 mg/dL 70-110 HH Lab Interpretation (test cod e = 54919-3) Abnormal [facility] HEAD WO KQNESWGM7718-53-85 19:45:11EXAM: CT HEAD WO CONTRAST, CT CERVICAL [...] cervical soft tissues and visualized lung apices areunremarkable.[facility] CERVICAL SPINE WO WJUZLXIT3448-76-06 19:45:11EXAM: CT HEAD WO CONTRAST, CT CERVICAL [...] cervical soft tissues and visualized lung apices areunremarkable.[facility] KN[facility] 3 VW KNJZO8906-28-39 22:53:33EXAM: XR KNEE 3 VW RIGHT HISTORY: [...] the proximal tibia metadiaphysis may be posttraumatic. [facility]anoGlycosylated Hemoglobin (A1C)2024-03-22 22:08:29* Test Item Value Reference Range Interpretation Comme nts HGB A1C (test code = 4548-4) 12.1 % 4.0-5.7 H RJ (test code = RJ) Reference RangesNormal: <5.7%Prediabetes: 5.7 - 6.4%Diabetes: > 6.5% Lab Interpretation (test code = 50118-5) Abnormal [facility]anoN-TERMINAL FJT-ZLV9599-51-30 17:06:26* Test Item Value Reference Range Interpretation Comme nts NT-proBNP (test code = 77194-3) 108 pg/mL <=125 Lab Interpretation (test cod e = 45177-0) Normal [facility]anoTROPONIN F2024-21-46 17:06:26* Test Item Value Reference Range Interpretation Comme nts TROPONIN I (test code = 9299588391) 0.007 ng/mL <=0.034 RJ (test code = [...] of biotin. Lab Interpretation (test code = 39106-1) Normal [facility]anoHEPATIC FUNCTION PANEL (09702) (ALB,T.PRO,BILI T,BU/BC,ALT,AST,ALK PHOS)2024-03-22 16:57:07* Test Item Value Reference Range Interpretation Comme nts TOTAL BILI (test code = 5576105694) 0.6 mg/dL 0.1-1.1 BILI UNCON (test code = 0190854463) 0.1 mg/dL 0.1-1.1 BILI CONJ (test code = 6098009775) 0.0 mg/dL 0.0-0.3 T PROTEIN (test code = 9780262097) 6.7 g/dL 6.3-8.2 ALBUMIN (test code = 7669945538) 3.7 g/dL 3.5-5.0 ALK PHOS (test code = 4359254764) 102 U/L 34-122 ALTv (test code = 1742-6) 18 U/L 5-50 AST(SGOT) (test code = 9690359903) 24 U/L 13-40 Lab Interpretation (test cod e = 33089-0) Normal [facility]ano[facility]IC METABOLIC PANEL (NA, K, CL, CO2, GLUCOSE, BUN, CREATININE, CA)2024-03-22 16:57:07* Test Item Value Reference Range Interpretation Comme [facility] NA (test code = 1029361104) 137 mmol/L 135-145 K (test code = 8995958820) 3.8 mmol/L 3.5-5.0 CL (test code = 6553713180) 106 mmol/L 98-108 CO2 TOTAL (test code = 9323584693) 24 mmol/L 23-31 AGAP (test code = 2680937344) 7 2-16 BUN (test code = 1943594935) 12 mg/dL 7-23 GLUCOSE (test code = 3332337060) 132 mg/dL 70-110 H CREATININE (test code = 2160-0) 0.97 mg/dL 0.60-1.25 CALCIUM (test code = 6176433362) 8.8 mg/dL 8.6-10.6 eGFR (test code = 07939-4) 84.0 mL/min/1.73m2 CKD-EPI eGFR (2020). Assuming creatinine has been stable day-to-day for at least three months, the eGFR indicates Category G2 (60 - 89 mL/min/1.73 m2) Lab Interpretation (test code = 18161-3) Abnormal [facility]anoCreatine Mgjoih6367-03-74 16:57:07* Test Item Value Reference Range Interpretation Comme [facility] CK (test code = 3512221561) 51 U/L 33-194 Lab Interpretation (test cod e = 59895-6) Normal [facility]anoCB WITH ALVU6437-45-19 16:38:44* Test Item Value Reference Range Interpretation Comme [facility] WBC (test code = 6690-2) 8.28 4.20-10.70 RBC (test code = 789-8) 4.28 4.26-5.52 HGB (test code = 718-7) 13.0 g/dL 12.2-16.4 HCT (test code = 4544-3) 38.0 % 38.4-49.3 L MCV (test code = 787-2) 88.8 fL 81.7-95.6 MCH (test code = 785-6) 30.4 pg 26.1-32.7 MCHC (test code = 786-4) 34.2 g/dL 31.2-35.0 RDW-SD (test code = 49528-5) 42.8 fL 38.5-51.6 RDW-CV (test code = 788-0) 13.2 % 12.1-15.4 PLT (test code = 777-3) 259 150-328 MPV (test code = 88858-2) 10.8 fL 9.8-13.0 NRBC/100 WBC (test code = 9331420711) 0.0 0.0-10.0 NRBC x10^3 (test code = 0880728434) See_Comment [Automated messa ge] The system which generated this result transmitted reference range: 10*3/?L. The reference range was not used to interpret this result as normal/abnormal. GRAN MAT (NEUT) % (test code = 770-8) 72.5 % IMM GRAN % (test code = 1671938359) 1.10 % LYMPH % (test code = 736-9) 13.2 % MONO % (test code = 5905-5) 11.4 % EOS % (test code = 713-8) 1.3 % BASO % (test code = 706-2) 0.5 % GRAN MAT x10^3(ANC) (test code = 9505478697) 6.01 10*3/uL 1.99-6.95 IMM GRAN x10^3 (test code = 5433588672) 0.09 10*3/uL 0.00-0.06 H LYMPH x10^3 (test code = 731-0) 1.09 10*3/uL 1.09-3.23 MONO x10^3 (test code = 742-7) 0.94 10*3/uL 0.36-1.02 EOS x10^3 (test code = 711-2) 0.11 10*3/uL 0.06-0.53 BASO x10^3 (test code = 704-7) 0.04 10*3/uL 0.01-0.09 Lab Interpretation (test code = 05024-8) Abnormal [facility]XR CHEST 2 LJ3706-03-81 16:14:04EXAM: XR CHEST 2 VW 03/22/2024 11:01 [...] changeinvolving the spine and AC joints is present.[facility] GLUCOSE (AUTOMATED) 2024-03-12 04:43:11* Test Item Value Reference Range Interpretation Comme nts POCT GLU (test code = 5972170101) 213 mg/dL 70-110 H Lab Interpretation (test cod e = 19960-9) Abnormal [facility] GLUCOSE (AUTOMATED)2024-03-12 03:47:48* Test Item Value Reference Range Interpretation Comme nts POCT GLU (test code = 9652139976) 258 mg/dL 70-110 H Lab Interpretation (test cod e = 38554-7) Abnormal [facility] GLUCOSE (AUTOMATED)2024-03-12 02:29:49* Test Item Value Reference Range Interpretation Comme nts POCT GLU (test code = 3055267681) 579 mg/dL 70-110 HH Lab Interpretation (test cod e = 11333-6) Abnormal [facility]. Metabolic Panel (73628)2024-03-12 02:17:22* Test Item Value Reference Range Interpretation Comme nts NA (test code = 2131309479) 130 mmol/L 135-145 L K (test code = 6478832230) 4.4 mmol/L 3.5-5.0 CL (test code = 6821157848) 98 mmol/L 98-108 CO2 TOTAL (test code = 7288673640) 26 mmol/L 23-31 AGAP (test code = 6798319011) 6 2-16 BUN (test code = 5395258092) 24 mg/dL 7-23 H GLUCOSE (test code = 0562461827) 614 mg/dL 70-110 HH CREATININE (test code = 2160-0) 1.21 mg/dL 0.60-1.25 TOTAL BILI (test code = 0751039039) 0.4 mg/dL 0.1-1.1 CALCIUM (test code = 8218830405) 8.6 mg/dL 8.6-10.6 T PROTEIN (test code = 2287124699) 6.1 g/dL 6.3-8.2 L ALBUMIN (test code = 4716982700) 3.5 g/dL 3.5-5.0 ALK PHOS (test code = 8954095227) 107 U/L 34-122 ALTv (test code = 1742-6) 17 U/L 5-50 AST(SGOT) (test code = 0228248627) 16 U/L 13-40 eGFR (test code = 69650-3) 64.4 mL/min/1.73m2 CKD-EPI eGFR (2020). Assuming creatinine has been stable day-to-day for at least three months, the eGFR indicates Category G2 (60 - 89 mL/min/1.73 m2) Lab Interpretation (test code = 99550-7) [facility]normal [facility]anoTroponin H2140-39-51 02:15:00* Test Item Value Reference Range Interpretation Comme nts TROPONIN I (test code = 8280790424) 0.006 ng/mL <=0.034 RJ (test code = [...] of biotin. Lab Interpretation (test code = 55170-5) Normal [facility]ano[facility] Xerapj2269-93-52 02:11:59* Test Item Value Reference Range Interpretation Comme nts CK (test code = 6934049717) 32 U/L 33-194 L Lab Interpretation (test cod e = 38476-2) Abnormal [facility]anoCbc with Hxer4311-69-32 01:59:02* Test Item Value Reference Range Interpretation [...] 34.2 g/dL 31.2-35.0 RDW-SD (test code = 77870-1) 41.0 fL 38.5-51.6 RDW-CV (test code = 788-0) 12.9 % 12.1-15.4 PLT (test code = 777-3) 231 150-328 MPV (test code = 75210-4) 10.5 fL 9.8-13.0 NRBC/100 WBC (test code = 1757402340) 0.0 0.0-10.0 NRBC x10^3 (test code = 9293160440) See_Comment [Automated messa ge] The system which generated this result transmitted reference range: 10*3/?L. The reference range was not used to interpret this result as normal/abnormal. GRAN MAT (NEUT) % (test code = 770-8) 68.1 % IMM GRAN % (test code = 3163307275) 0.80 % LYMPH % (test code = 736-9) 20.3 % MONO % (test code = 5905-5) 9.3 % EOS % (test code = 713-8) 1.1 % BASO % (test code = 706-2) 0.4 % GRAN MAT x10^3(ANC) (test code = 0510979926) 5.06 10*3/uL 1.99-6.95 IMM GRAN x10^3 (test code = 0302051390) 0.06 10*3/uL 0.00-0.06 LYMPH x10^3 (test code = 731-0) 1.51 10*3/uL 1.09-3.23 MONO x10^3 (test code = 742-7) 0.69 10*3/uL 0.36-1.02 EOS x10^3 (test code = 711-2) 0.08 10*3/uL 0.06-0.53 BASO x10^3 (test code = 704-7) 0.03 10*3/uL 0.01-0.09 Lab Interpretation (test code = 23081-1) Abnormal [facility]ano[facility]. Metabolic Panel (37979)2024-02-10 18:23:57* Test Item Value Reference Range Interpretation Comme nts NA (test code = 0014576769) 135 mmol/L 135-145 K (test code = 4681114455) 4.1 mmol/L 3.5-5.0 CL (test code = 9710978416) 100 mmol/L 98-108 CO2 TOTAL (test code = 8336449946) 27 mmol/L 23-31 AGAP (test code = 2926237797) 8 2-16 BUN (test code = 8303840552) 26 mg/dL 7-23 H GLUCOSE (test code = 8151582120) 209 mg/dL 70-110 H CREATININE (test code = 2160-0) 1.09 mg/dL 0.60-1.25 TOTAL BILI (test code = 2145509887) 1.0 mg/dL 0.1-1.1 CALCIUM (test code = 1282309006) 8.9 mg/dL 8.6-10.6 T PROTEIN (test code = 5166205714) 7.0 g/dL 6.3-8.2 ALBUMIN (test code = 3051491017) 3.5 g/dL 3.5-5.0 ALK PHOS (test code = 7588005388) 122 U/L 34-122 ALTv (test code = 1742-6) 30 U/L 5-50 AST(SGOT) (test code = 4232199919) 34 U/L 13-40 eGFR (test code = 29573-2) 73.0 mL/min/1.73m2 CKD-EPI eGFR (2020). Assuming creatinine has been stable day-to-day for at least three months, the eGFR indicates Category G2 (60 - 89 mL/min/1.73 m2) Lab Interpretation (test code = 00254-9) Abnormal [facility] with Zpdd1713-47-43 18:13:28* Test Item Value Reference Range Interpretation [...] 33.9 g/dL 31.2-35.0 RDW-SD (test code = 41367-9) 42.0 fL 38.5-51.6 RDW-CV (test code = 788-0) 12.9 % 12.1-15.4 PLT (test code = 777-3) 287 150-328 MPV (test code = 20905-9) 9.4 fL 9.8-13.0 L NRBC/100 WBC (test code = 5510411798) 0.0 0.0-10.0 NRBC x10^3 (test code = 1302404366) See_Comment [Automated messa ge] The system which generated this result transmitted reference range: 10*3/?L. The reference range was not used to interpret this result as normal/abnormal. GRAN MAT (NEUT) % (test code = 770-8) 77.5 % IMM GRAN % (test code = 4015064642) 1.10 % LYMPH % (test code = 736-9) 11.1 % MONO % (test code = 5905-5) 9.1 % EOS % (test code = 713-8) 0.9 % BASO % (test code = 706-2) 0.3 % GRAN MAT x10^3(ANC) (test code = 7009398289) 8.71 10*3/uL 1.99-6.95 H IMM GRAN x10^3 (test code = 1954103999) 0.12 10*3/uL 0.00-0.06 H LYMPH x10^3 (test code = 731-0) 1.25 10*3/uL 1.09-3.23 MONO x10^3 (test code = 742-7) 1.02 10*3/uL 0.36-1.02 EOS x10^3 (test code = 711-2) 0.10 10*3/uL 0.06-0.53 BASO x10^3 (test code = 704-7) 0.03 10*3/uL 0.01-0.09 Lab Interpretation (test code = 20029-0) Abnormal [facility] TEAMSWTP9128-64-56 20:09:29FULL RESULT: Examination: CT HEAD WO CONTRAST on 02/09/2024 2:43 PM Clinical Indication: Dizziness Comparison: None Technique: Noncontrast imaging was obtained from base to vertex. Findings: The sulciand ventricles were unremarkable. There was no evidencefor mass lesion, hemorrhage, or underlying ed michelle. There is mild whitematter hypodensity compatible with microvascular ischemic change. There were no bony, sinonasal or skull base lesions.[facility] LUMBAR SPINE 3 FU0950-37-09 15:24:42EXAM: XR LUMBAR SPINE 3 VW HISTORY: [...] innormal alignment. The intervertebral disc spaces are preserved.[facility]CT ABDOMEN PELVIS WO NTTHGUZN6230-36-30 19:42:33HISTORY: ?flank pain with right side swelling [...] Mostcompatible with omental infarct. No acute bony abnormality.[facility]. Metabolic Panel (35912)2024-01-30 17:18:01* Test Item Value Reference Range Interpretation Comme nts NA (test code = 5527072055) 139 mmol/L 135-145 K (test code = 8526862976) 3.6 mmol/L 3.5-5.0 CL (test code = 8000633137) 107 mmol/L 98-108 CO2 TOTAL (test code = 2065240241) 27 mmol/L 23-31 AGAP (test code = 8561791637) 5 2-16 BUN (test code = 2089838369) 27 mg/dL 7-23 H GLUCOSE (test code = 6338376615) 118 mg/dL 70-110 H CREATININE (test code = 2160-0) 0.99 mg/dL 0.60-1.25 TOTAL BILI (test code = 6722577197) 0.4 mg/dL 0.1-1.1 CALCIUM (test code = 2345777834) 8.6 mg/dL 8.6-10.6 T PROTEIN (test code = 5642360631) 6.8 g/dL 6.3-8.2 ALBUMIN (test code = 6811262407) 3.6 g/dL 3.5-5.0 ALK PHOS (test code = 0416263474) 105 U/L 34-122 ALTv (test code = 1742-6) 23 U/L 5-50 AST(SGOT) (test code = 4904698870) 27 U/L 13-40 eGFR (test code = 59975-7) 81.9 mL/min/1.73m2 CKD-EPI eGFR (2020). Assuming creatinine has been stable day-to-day for at least three months, the eGFR indicates Category G2 (60 - 89 mL/min/1.73 m2) Lab Interpretation (test code = 96999-7) Abnormal [facility] with Seth1277-97-98 16:52:14* Test Item Value Reference Range Interpretation [...] 33.3 g/dL 31.2-35.0 RDW-SD (test code = 67916-2) 42.9 fL 38.5-51.6 RDW-CV (test code = 788-0) 13.2 % 12.1-15.4 PLT (test code = 777-3) 290 150-328 MPV (test code = 99996-4) 9.9 fL 9.8-13.0 NRBC/100 WBC (test code = 0923569396) 0.0 0.0-10.0 NRBC x10^3 (test code = 0711371135) See_Comment [Automated messa ge] The system which generated this result transmitted reference range: 10*3/?L. The reference range was not used to interpret this result as normal/abnormal. GRAN MAT (NEUT) % (test code = 770-8) 74.8 % IMM GRAN % (test code = 9945709513) 0.90 % LYMPH % (test code = 736-9) 14.7 % MONO % (test code = 5905-5) 7.8 % EOS % (test code = 713-8) 1.2 % BASO % (test code = 706-2) 0.6 % GRAN MAT x10^3(ANC) (test code = 7510692472) 7.72 10*3/uL 1.99-6.95 H IMM GRAN x10^3 (test code = 1786107853) 0.09 10*3/uL 0.00-0.06 H LYMPH x10^3 (test code = 731-0) 1.52 10*3/uL 1.09-3.23 MONO x10^3 (test code = 742-7) 0.81 10*3/uL 0.36-1.02 EOS x10^3 (test code = 711-2) 0.12 10*3/uL 0.06-0.53 BASO x10^3 (test code = 704-7) 0.06 10*3/uL 0.01-0.09 Lab Interpretation (test code = 36521-6) [facility]normal [facility] 3 VY2340-78-93 19:03:44 HISTORY: ?Low back pain. FINDINGS: AP, [...] ofmild degenerative disc disease at L2-L3, L3-L4, L4-L5.[facility]anoPOCT Ioxcdof2085-26-48 13:50:00* Test Item Value Reference Range Interpretation Comme nts POCT Glu (age>30days) (test code = 3342) 181 mg/dL 70-110 A Lab Interpretation (test cod e = 39985-0) Abnormal [facility] Notes Date/Time Note Provider Source 2024-04-06 05:25:21 4509-74-10B58:25:21Formatting of this no te might be different from the original.Pt given [...] leaving by wheelchair, in no apparent distress. 13538-1Bwatvgxey department SgyaFQ5381-97-55U08:28:43[facility] NoteTXT1.2.840.073230.1.13.104.2.7.2.647539|2 [id number] for patient htxy38536-0ItzgJZRISAJVMGODysrujlmw C-CDA narrative [address] GwubFu[id number] DKKNIYCRYZMFO7552-75-94A56:28:431.2.840.37444 0.1.72.3.15|1.2.840.235850.1.13.104.2.7.2.727 [id number] [facility] 2024-04-06 01:49:35 5535-90-08X16:49:35Formatting of this no te might be different from the original.[facility] for wound on right foot and elevated blood sugar.EMS reports pt's blood glucose was 580 06073-0Ptafbfvni department Triage wumjOX0000-21-87C55:52:38[facility] department Triage noteTXT1.2.840.566013.1.13.104.2.7.2.560005|2 817473894ZHMatcbayvq for patient ppmc16915-3Tzxbtlbnd department NoteLNNARRATIVEFormatted C-CDA narrative [id number] A. Campbell RN[address]Ngvq[id number] TVHCQXIAVHYNC2351-21-21P92:52:381.2.840.10709 0.1.72.3.15|1.2.840.899159.1.13.104.2.7.2.727 [id number] Milli Lopez RN [facility] 2024-04-06 01:31:00 2592-93-46M63:31:00Formatting of this no te is different from the original.Images from the original note were not included.[facility] Emergency Department NotePatient Name: Raj Mackey of : 1955 69 year old maleTreatment Room: PA6/JA0Imvcvma Record Number: [id number] [facility] Physician: PATIENT DOES NOT HAVE A PCPPatient Escorted by: Self [9]Mode of Arrival: EMS - [facility] [43]EMS Treatment Prior to ED Arrival:SKIN DRIER treatment: quality assurance monitor chassis;FSBG;IVF;Saline lockTravel and Exposure Screening:SymptomsDoes patient have any of these symptoms?: (not recorded)Exposure ScreeningHas patient had contact with someone with a communicable disease in the last month?: (not recorded)Diseases exposed to:: (not recorded)Is Patient ?: (not recorded)Exposure Date: (not recorded)Chief Complaint:Chief ComplaintPatient presents withFoot PainHistory of Present Illness:History provided by: PatientLanguage translator interpreter used: NoFoot PainLocation: FootTime since incident: 3 [...] exam 12/01/2019Added automatically from request for surgery [id number] of both legs 02/28/2020Erectile dysfunction, unspecified erectile dysfunction type 02/28/2020Essential hypertension 02/28/2020HTN (hypertension)HyperlipidemiaObesity (BMI 30-39.9) 03/17/2019Psoriasiform dermatitis 1Stroke 2017Type 2 diabetes mellitus with vascular disease 10/12/2019Upper respiratory tract infection, unspecified type 10/12/2019Tetanus received in last 5 years: UnknownChildhood immunizations: Wv-ks-rjipUizaybrqb:No Known AllergiesPast Social History:Tobacco UseNever smoked or used smokeless tobacco.Alcohol UseNo.Drug UseNo.Past Surgical History:Past Surgical History:Procedure Laterality DateCOLONOSCOPY N/A 12/30/2019Surgeon: Glo Finn MD; [facility],LAMELLAR BilateralKNEE CIGNOOCMCDR7401CXSPXXWZQTWYUSPC KERATOPLASTYPHACOEMULSIFICATION OF CATARACT WITH INTRAOCULAR LENS IMPLANT Right 03/17/2019Surgeon: Virgil Martinez MD; [facility]Review [facility] Systems:Review of SystemsConstitutional: Negative for activity [...] 0.04 0.01 - 0.09 10*3/uLCOMP. METABOLIC PANEL (40450) - AbnormalNA 126 (*) 135 - 145 [...] U/LAST(SGOT) 33 13 - 40 U/LeGFR 73.8 mL/min/1.90c1KOOQHSPWJ - AbnormalMAGNESIUM 1.6 (*) 1.7 - 2.4 [...] EncounterProceduresPOCT GLUCOSE (AUTOMATED)Cbc with DiffComp. Metabolic Panel (79457)MagnesiumUrinalysisPOCT GLUCOSE (AUTOMATED)POCT GLUCOSE (AUTOMATED)POCT GLUCOSE (AUTOMATED)Orders Placed [...] % ointmentFirst Provider Eval:ED EventsDate/Time Event User Rviihdkt72/15/24 014 Medical Screening Begins MULUGETA PALMA MD --04/06/24 0141 First Provider Evaluation MULUGETA PALMA MD --ED COURSEPatient's condition improved with the treatment provided in the ED, will DC Home with instructions to follow up at the [facility] within 3 days for wound check.Diagnosis/Impression as [...] Use as directedLANCETS (TRUEPLUS LANCETS) [address] [facility] Monitor Blood Glucose dailyLISINOPRIL-HYDROCHLOROTHIAZIDE 10-12.5 MG PER TABLET Take 1 tablet by mouth once dailyMETFORMIN 1,000 MG TABLET Take 1 tablet by mouth 2 (two) times daily with meals.MISCELLANEOUS MEDICAL SUPPLY [facility] E11.8: dispense Insulin Syringe 31 gauge brand [...] on fileFollow-up:Electronically signed by:Mulugeta Palma MD04/06/24 0351 69504-2Vpcjbuhah Emergency department GpbqOT7079-16-14W24:51:44Physician Emergency department NoteTXT1.2.840.286491.1.13.104.2.7.2.073725|2 [id number] for patient fyos90505-9Meepcabct department NoteLNNARRATIVEFormatted C-CDA narrative text[address] [id number] FOLEYVGFRRAVXKKYSC1936-49-63O87:51:441.2.840.33551 0.1.72.3.15|1.2.840.096469.1.13.104.2.7.2.727 [id number] [facility] 2024-04-03 17:51:06 5446-01-93W34:51:06Formatting of this no te might be different from the original.Pt given [...] noted upon discharge and exit from ED. 27292-9Cdzzuakcp department VsvsND5050-77-86C66:53:17Emergency department NoteTXT1.2.840.696346.1.13.104.2.7.2.633536|2 [id number] for patient tixl00101-0FkceWLNDNJIBXNVNilximhbl C-CDA narrative text[id number] MAICXXZFXJWCXNXQ1874-93-04H22:53:171.2.840.52773 0.1.72.3.15|1.2.840.593675.1.13.104.2.7.2.727 [id number] [facility] 2024-04-03 17:21:48 6396-77-47T81:21:48Formatting of this no te might be different from the original.Images from the original note were not included.ER Weekend Lance Crewmember/[employer] Sergeant note:04/03/2024 5:21 PMMet with the patient in room. Patient Aox4. Patient requested a ride to [facility] [address] [place] [address]. The patient was provided with cab voucher # [id number] [employer] [phone] Sebastian PhD, RAINBOW TROUT FARM MANAGER, LCDCCare Management- Social WorkDepartment of Care ManagementThe [address] [place] [address]H [phone] [email or web address] department CyzcKL2730-17-42H21:26:10Emefranciscan health department NoteTXT1.2.840.122602.1.13.104.2.7.2.600666|2 [id number] for patient mzic20646-5Euxopnxid department NoteLNNARRATIVEFormatted C-CDA narrative [id number] GRAVES[address] SqddOysltjbjfAhpfouncsXMBM4065877053QBERZRGFY XSKDGCRGMXUTN5411-13-71P70:26:101.2.840.26049 0.1.72.3.15|1.2.840.807713.1.13.104.2.7.2.727 [id number] Richard GRAVES [facility] 2024-04-03 16:49:23 1991-09-07N38:49:23Formatting of this no te might be different from the original.Dc after fluids 34642-0Uerixhmdn department DeseEE0785-44-75V50:49:28Emergency department NoteTXT1.2.840.023559.1.13.104.2.7.2.772742|2 [id number] for patient lnpn80494-8CzjkTKCWMPKAFPATzutcsmnd C-CDA narrative Gusto[address] [id number] CISNEROSMPEVIVHGLSXXK4460-04-17L32:49:281.2.840.12746 0.1.72.3.15|1.2.840.943293.1.13.104.2.7.2.727 [id number] [facility] 2024-04-03 16:45:00 7995-32-73B96:45:00Formatting of this no te might be different from the original.PT much more awake and alert. Pt provided with taxi voucher, food tray given. 34631-6Yyfmtcclp department VgkyID5188-60-73A91:51:02Emefranciscan health department NoteTXT1.2.840.697610.1.13.104.2.7.2.444777|2 [id number] for patient fouo52518-3KlldLHROAFRZQEEPxodecqlu C-CDA narrative [id number] AGGTXBGHYHNTB1351-58-80A43:51:021.2.840.86081 0.1.72.3.15|1.2.840.148780.1.13.104.2.7.2.727 [id number] [facility] 2024-04-03 15:18:54 3369-88-08Y06:18:54Formatting of this no te might be different from the original.Orthostatics3:19 PMLying: BP: 158/88 P: 87Sitting: BP: 130/77 P: 86Standing: BP: 126/71 P: 82 40555-8Bwpwahwgc department KyajZF4366-63-97U95:19:39Emercross[facility] hospital department NoteTXT1.2.840.219448.1.13.104.2.7.2.353055|2 [id number] for patient gnxq31263-7GnfvIZGITTGOEBKOcqogthzd C-CDA narrative text[address] RnisDtpfmbvwoRaniugxgcVAPG1449977875YXPYPMFAW UQDJZJUWDWXYY0688-98-11W56:19:391.2.840.75845 0.1.72.3.15|1.2.840.364858.1.13.104.2.7.2.727 [id number] [facility] 2024-04-03 14:51:50 9401-89-92Q26:51:50Formatting of this no te might be different from the original.Images from the original note were not included.ER Weekend Lance Crewmember/Mlrs Sergeant note:04/03/2024 2:51 PMSW met with the patient at the bedside. Initially, the patient was drowsy and unable to answer most questions. However, he expressed readiness to move to a personal group home and was willing to pay for it. RENEE contacted Ms. Weiss from [facility] ( ) and Madhavi Abraham ( ), who explained the financial requirements for staying at their personal care homes. They said he needed to pay a bit upfront and use some of his social security for the home.RENEE also spoke with Royer from [facility] and faxed clinicals for a pending Medicaid bed. Later, RENEE talked to Pan from [facility] about the referral made on 03/22/2024. Pan mentioned that they removed him from their admission list due to his failure to answer their call. She visited the patient and said they can't initiate preauthorization until they receive PT/OT evaluation and confirmation regarding his placement.SW discussed these options with the patient again when he was more awake. However, the patient disagreed with the plan for a personal group home, stating he receives around $900 in social security benefits (contradicting his earlier statement of $1200 to $1400) and did not want to pay for his stay.He expressed a preference for going to a fci. RENEE contacted Grover, Child Abuse Worker of the [facility], to secure a bed and discussed this with the patient. The patient agreed to go to the [facility]. RENEE informed him about a meeting with [facility] foster care social worker Destiny Prajapati Thursday morning. The patient expressed unawareness of the meeting, so SW requested him to answer the phone when [facility] SW calls. RENEE also emailed [facility] foster care social worker Destiny Prajapati regarding the situation, seeking her assistance.Richard Maurer PhD, RAINBOW TROUT FARM MANAGER, LCDCCare Management- Social WorkDepartment of Care ManagementThe [address] [place] [address]P [phone] [email or web address] department YudkVK4270-55-17J66:31:43Emefranciscan health department NoteTXT1.2.840.103595.1.13.104.2.7.2.690363|2 [id number] for patient rinl26445-9Jrpaekyis department NoteLNNARRATIVEFormatted C-CDA narrative text[address] CedmZvzcpuofoPgqttjrrbYVIP0017150037IKQPKREML MMFBYWURBGOXN2416-36-81W42:31:431.2.840.77922 0.1.72.3.15|1.2.840.835534.1.13.104.2.7.2.727 [id number] [facility] 2024-04-03 09:48:46 7004-77-97X64:48:46Formatting of this no te might be different from the original.Pt to [...] in lowest position. Call light within reach. 27795-1Lnvevnsaa department LuwxBW8027-60-29X44:57:43Emefranciscan health department NoteTXT1.2.840.634194.1.13.104.2.7.2.013538|2 [id number] for patient nwcx52228-1SiaiIXOFQFEAJATKqklpbkol C-CDA narrative text[address] XfpmEoprtmlyaKsjsiwsfeDQAN0434439715NXFMUZGRO YNYBXQCDWFAET4402-33-76T77:57:431.2.840.22581 0.1.72.3.15|1.2.840.237274.1.13.104.2.7.2.727 [id number] [facility] 2024-04-03 09:40:55 8649-79-92O43:40:55Formatting of this no te might be different from the original.Raj Morales is a 69 year old male presents to ED triage with chief compliant of falls. EMS states that he has had multiple falls today, patient has a small abrasions to L forehead.- blood thinners. AAOx4. Skin warm and dry. VSS. RR E/U. NAD noted.Roomed for eval 98565-9Lyyvmwfyw department Triage lnjmGT1194-74-90R03:43:19Emefranciscan health department Triage noteTXT1.2.840.254047.1.13.104.2.7.2.808479|2 [id number] for patient giir74286-3Iknnrllqc department NoteLNNARRATIVEFormatted C-CDA narrative kyli994600931Pdzhrjib J Khandros RN[address] RsewFflhxknjxFtdsvwencWVIS5808199057QJTQZOCCT LAKAJBJJNUODP3440-87-00G57:43:191.2.840.71306 0.1.72.3.15|1.2.840.839153.1.13.104.2.7.2.727 [id number] Parvin José RN [facility] 2024-04-03 09:39:00 6457-88-21T96:39:00Associated Order(s): EKG-12 Lead ROUTINE ONCEPre-Procedure Diagnose(s): Fall, initial encounter; Injury of head, initial encounterPost-Procedure Diagnose(s): Fall, initial encounter; Injury of head, initial encounter Images from the original note were not included.[facility] Emergency Department NotePatient Name: Raj Mackey of : 1955 69 year old maleTreatment Room: [address] [place] [address] Record Number: [id number] [facility] Physician: PATIENT DOES NOT HAVE A PCPPatient [...] awakeHistory provided by: Patient and medical recordsLanguage translator interpreter used: NoPast Medical History/Immunizations:Past Medical History:Diagnosis Date Acute midline low back pain without sciatica 01/18/2020 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) 10/12/2019 CataractOS ONLY Cellulitis of foot, left 04/12/2020 Diabetes Diabetic eye exam 12/01/2019Added automatically from request for surgery [id number] Dyslipidemia Edema of both legs 02/28/2020 Erectile [...] N/A 12/30/2019Surgeon: Glo Finn MD; Location: [facility] OR [facility] CORNEAL TRANSPLANT,LAMELLAR Bilateral KNEE CWHMYLZUMUR7179 OTHER PENETRATING KERATOPLASTY PHACOEMULSIFICATION OF CATARACT WITH INTRAOCULAR LENS IMPLANT Right 03/17/2019Surgeon: Virgil Martinez MD; Location: [facility] OR LocationReview of Systems:Review of SystemsConstitutional: [...] this encounter.First Provider Eval:ED EventsDate/Time Event User Pggpuled57/12/24947 Medical Screening Begins NANDO HAGAN MD --04/03/24947 [...] but is agreeable to go to the [facility]. Will reassess shortly [CD]1433 AMMONIA(!): <9No metabolic [...] subsequently to follow commands. The nurse from [facility] rehab was trying to assess the patient, [...] ED Physician in the absence of a equipment operator intermodal yard: yesPrevious ECG:Previous ECG: Compared to currentSimilarity: No [...] DISPOSABLE, (PHUC PEN NEEDLE) 32 GAUGE X 32" NDLE Use as directedINSULIN NPH (HUMULIN N NPH U-100 INSULIN) 100 UNIT/ML INJECTION INJECT 35 UNITS SUBCUTANEOUSLY EVERY MORNING AND EVENING. Office visit needed for further refills.INSULIN SYRINGE-NEEDLE U-100 1 ML 27 GAUGE X 1/2" SYRG Use as directedLANCETS (TRUEPLUS LANCETS) 33 GAUGE [facility] Monitor Blood Glucose dailyLISINOPRIL-HYDROCHLOROTHIAZIDE 10-12.5 MG PER TABLET Take 1 tablet by mouth once dailyMETFORMIN 1,000 MG TABLET Take 1 tablet by mouth 2 (two) times daily with meals.MISCELLANEOUS MEDICAL SUPPLY [facility] E11.8: dispense Insulin Syringe 31 gauge brand [...] on fileFollow-up:Electronically signed by:Nando Hagan MD04/03/24 1651 80485-6Lstwdquai Emergency department QknfMW1999-68-80S57:51:36Physician Emergency department NoteTXT1.2.840.014258.1.13.104.2.7.2.714297|2 [id number] for patient aujc56365-4Aucexpvix department NoteLNNARRATIVEFormatted C-CDA narrative textUTCARRIE TINGLEY [facility] - [address]MrlmEnbbzailgDxkyhhmgnTIUT2689290070BPFMIRIJD BFXXJPDZGKDYX5394-30-26E01:51:361.2.840.23477 0.1.72.3.15|1.2.840.200026.1.13.104.2.7.2.727 [id number] [facility] 2024-03-31 19:41:41 8495-77-31M16:41:41Formatting of this no te might be different from the original.Pt discharged to home. Discharge instructions given to pt regarding management of condition and instructions to follow up with PCP. Pt verbalized understanding. PIV removed without complications. Patient in possession of all belongings. Pt ambulates to lobby with steady gait. 13839-7Xyigyeagc department GeufXG3726-03-53E92:41:58[facility] department NoteTXT1.2.840.888136.1.13.104.2.7.2.923187|2 [id number] for patient bchi36085-9RnbnCJXAMBTPFZGYeonmjyxn C-CDA narrative fztj647860719Dbzthdjyv Johnson RNUT[address] [id number] FQXGUKBTFILKE2864-15-90H65:41:581.2.840.96205 0.1.72.3.15|1.2.840.376409.1.13.104.2.7.2.727 [id number] Kunal Joiner RN [facility] 2024-03-31 19:37:16 1515-26-17J20:37:16Formatting of this no te might be different from the original.DISCHARGE HOLD: Pt requesting compression stockings. Materials management contacted. 81487-3Kllopvfdl department TjlnZT4446-16-52H28:38:30E[facility] NoteTXT1.2.840.835316.1.13.104.2.7.2.392665|2 [id number] for patient zcgy67642-0ZsxbFJAXEVRKDYULpeugpfcy C-CDA narrative text[id number] CISNEROSRYZVMSYQCFXCT7148-72-43G81:38:301.2.840.09644 0.1.72.3.15|1.2.840.508084.1.13.104.2.7.2.727 [id number] [facility] 2024-03-31 12:35:04 6758-30-40Z26:35:04Formatting of this no te might be different from the original.Raj Morales is a 69 year old male presenting to ED with c/o fall. Patient reports using walker and reports stepped off a curb and fell. Patient reports hitting head on ground but denies LOC. No use of blood thinners. BGL "HI" for EMS. Patient received 400cc NS SKIN DRIER. BGL 526. Patient to green chairs due to ED saturation 49388-2Hxlybrxco department Triage uuseLZ1625-06-64K56:39:58[facility] department Triage noteTXT1.2.840.996858.1.13.104.2.7.2.130468|2 766193356KNNkjuzafew for patient fwxn05366-8Uwyeoqpel department NoteLNNARRATIVEFormatted C-CDA narrative gred880617667Wzlgtadc L Holmes RNUT[address] [id number] RACKHJLQACGVP6545-68-46M94:39:581.2.840.28795 0.1.72.3.15|1.2.840.024571.1.13.104.2.7.2.727 [id number] Shavon Linares RN [facility] 2024-03-29 18:51:55 8724-84-43W86:51:55Formatting of this no te might be different from the original.Raj Morales verbalized an understanding of DC instructions. NAD. Respirations unlabored. Pt wheeled out to the ER lobby. Pt given cleaning wipes and reports he needs to get dressed prior to going to ER lobby. RENEE Gusman spoke with patient regarding transport. 65750-5Mdpookrix department OrilLG1062-48-03O63:53:30[facility] department NoteTXT1.2.840.516813.1.13.104.2.7.2.132202|2 206949215YRRzaggmimn for patient ippe23610-5NcsmYKGXJEFUINIFziwldfup C-CDA narrative hqhf492900795Pommqxg Salazar RNJACOBS [facility] - [address] ZyttTbunmixhfVfmyqnzxlPIGG8118585451WKFCLMSWC FBAXYLPVXKYEN9551-38-84X93:53:301.2.840.31237 0.1.72.3.15|1.2.840.654856.1.13.104.2.7.2.727 [id number] Porsha Encarnacion RN [facility] 2024-03-29 18:44:41 4461-28-55Q58:44:41Formatting of this no te might be different from the original.Images from [...] the housing she set up for him.HAIDER SamSocial [facility] Office [email or web address] 17346-3Mdaxivrqw department BlzzEG0304-34-33T23:52:22[facility] department NoteTXT1.2.840.660528.1.13.104.2.7.2.850860|2 [id number] for patient dcva50996-6Vufkmfndm department NoteLNNARRATIVEFormatted C-CDA narrative nwgu980674927Kfqqeze Howard [id number] AQSHMNNRJCBGB8048-32-09B71:52:221.2.840.14953 0.1.72.3.15|1.2.840.804222.1.13.104.2.7.2.727 879_[id number] Naseem Argueta [facility] 2024-03-29 14:46:31 1487-93-36Y29:46:31Formatting of this no te might be different from the original.Raj Morales is a 69 year old male presenting to ED via [facility] with c/o back pain. Patient reports mechanical fall earlier today with no LOC. No use of blood thinners. Patient to green chairs due to ED saturation 61733-1Xrfzxmdeo department Triage ycaoSQ5291-83-90J39:47:08[facility] department Triage noteTXT1.2.840.656285.1.13.104.2.7.2.278977|2 356891518YHNttsuucbh for patient mpqz91277-4Mukaywiwt department NoteLNNARRATIVEFormatted C-CDA narrative nedt868193110Nisqcalz L Holmes RN[id number] KMKJDHZOFITOE4882-73-92B93:47:081.2.840.61958 0.1.72.3.15|1.2.840.907103.1.13.104.2.7.2.727 879_[id number] Shavon Linares RN [facility] 2024-03-22 16:51:23 0093-72-12U46:51:23Formatting of this no te might be different from the original.Naseem w/ social work is working on getting pt a ride. DC hold until completed. 90700-5Yyxmd PhawUU0006-47-83L64:51:40Nurse NoteTXT1.2.840.712958.1.13.104.2.7.2.128969|2 [id number] for patient hsju98885-4Lgmei NoteLNNARRATIVEFormatted C-CDA narrative jlgx322516600Fcchrbd K Bartels RN[id number] HEMFWNOHCUELO8372-74-75V10:51:401.2.840.45095 0.1.72.3.15|1.2.840.601556.1.13.104.2.7.2.727 [id number] Mina Ordaz RN [facility] 2024-03-22 13:07:59 0224-44-89R05:07:59Formatting of this no te might be different from the original.Social work at bedside. 97290-8Odbcv YdajUF4927-91-65G95:14:01Nurse NoteTXT1.2.840.696232.1.13.104.2.7.2.552222|2 879495384GJWtrhkqlcy for patient qawr87889-6Kpkkt NoteLNNARRATIVEFormatted C-CDA narrative text[address] [id number] FOLEYEQEMZCGHHQOFR5709-06-34C39:14:011.2.840.22791 0.1.72.3.15|1.2.840.846011.1.13.104.2.7.2.727 [id number] [facility] 2024-03-22 13:07:00 6606-31-79S11:07:00Formatting of this no te might be different from the original.Images from the original note were not included.ED LBSW Case Note03/22/2024 5:13 PMTransportation arranged via [employer] .Patient name: Raj MoralesMRN: [id number] date: 4Reason for voucher: Pt doesn't have a means of transportationVoucher #: [id number] met with pt face to facePt is [address] the future pt is made aware that they will need to find a ride home, unless they are non-ambulatory. Pt was made aware that the [facility] bus transportation picks up right in front of the hospital and that they can ride for free with the hospital wristband03/12/2024 4:20 [facility] met with pt at bed side to discuss the referrals sent, provide the resources that he gathered for pt. SIXTO Enriquez, MD Tommie and MD Libby notified of what was done from [facility]/ stand point03/22/2024 4:05 [facility] faxed and emailed referral to [facility] to assist pt with finding housing.03/22/2024 3:53 [facility] gathered the following resources for pt;[facility] Resources PacketAetna Non-Emergency Medical Transport FormCoastal Health & Wellness Information/Registration PacketGrace Clinic FlyerSt. [place] services available/schedule formGCC FlyerGoodRx Card03/22/2024 3:33 [facility] contacted Fox from [facility] to send a referral to her to possibly assist pt with finding a home within his budget03/22/2024 3:00 [facility] gathered shirts, socks, a pair of shoes, underwear, shorts/pants, hygiene products, snacks for pt. LBSW also collected a walker from the supply closet to potentially replace the walker the pt has now.03/22/2024 2:07 [facility] LBSW sent referral to Magda ([address], [place] [address] ) to work him up for possibly inpt. 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 and he has been w/o one since.- Pt is currently homeless- Pt has [employer] as health insurance- Pt gets between $1300-$1400 a month from social security- Pt stays in front of [employer] [place]- Pt has an active phone and knows how to use it: - Pt is wanting to get back to work but can't because he can't walk w/o assistance due to his unsteadiness and pain in his legs.- Pt doesn't have a PCP- Pt is interested in some sort of rehab to assist with his gait and steadiness of walkingDeHAIDER BedollaSocial [facility] - Care Management Office [email or web address] 06519-2Rfbnjwhuo department YgnlRJ8213-98-52V85:17:15[facility] department NoteTXT1.2.840.966300.1.13.104.2.7.2.881612|2 [id number] for patient gvds25308-4Hwbmvhbfn department NoteLNNARRATIVEFormatted C-CDA narrative csrw345051698Fijohzb Howard [id number] CISNEROSNUEURLSMXBCMW7822-16-47S11:17:151.2.840.71512 0.1.72.3.15|1.2.840.449236.1.13.104.2.7.2.727 [id number] Naseem Argueta [facility] 2024-03-22 13:04:31 6549-47-70A23:04:31Formatting of this no te might be different from the original.Pt requested help from social work for an upgraded walker and questions about housing options other than the [facility]. Social work was called. Will [place]. 63727-7Acupk BqkkLG4476-62-17F34:05:42Nurse NoteTXT1.2.840.081187.1.13.104.2.7.2.034133|2 [id number] for patient tkks35237-0Vjrcb NoteLNNARRATIVEFormatted C-CDA narrative text[id number] NCVBMVMLYINSH5098-14-68F13:05:421.2.840.75230 0.1.72.3.15|1.2.840.326174.1.13.104.2.7.2.727 [id number] [facility] 2024-03-22 11:08:13 5037-43-18Z81:08:13Formatting of this no te might be different from the original.Pt to XR 48688-5Mfsjg RneeGW7220-26-76H20:08:21Nurse NoteTXT1.2.840.308125.1.13.104.2.7.2.513823|2 [id number] for patient owtz81806-7Qswpw NoteLNNARRATIVEFormatted C-CDA narrative text[id number] WHBMPDAARJZZY4704-48-51B37:08:211.2.840.73066 0.1.72.3.15|1.2.840.204985.1.13.104.2.7.2.727 879_[id number] [facility] 2024-03-22 09:54:54 6718-31-12L06:54:54Formatting of this no te might be different from the original.Raj Morales is a 69 year old male who presents to the ED with chief complaints of Left foot and leg swelling. Foot is warm to the touch. Pt rates pain as a 10/10. AAOx4. VSS. RR E/U. Skin warm and dry. NAD noted. Roomed for eval. 53191-3Wljetgcaw department Triage mepvNQ8719-26-54H70:56:53[facility] department Triage noteTXT1.2.840.317265.1.13.104.2.7.2.346413|2 [id number] for patient xrcq18069-5Xaunkauai department NoteLNNARRATIVEFormatted C-CDA narrative xtow530279127Gradvjzc J Khandros RNUT[address] [id number] IMVYJSINZBNLU4165-59-34Y87:56:531.2.840.42065 0.1.72.3.15|1.2.840.598680.1.13.104.2.7.2.727 879_[id number] Parvin José RN [facility] 2024-03-12 00:01:12 7679-03-33D60:01:12Formatting of this no te might be different from the original.Patient received [...] up with pcp.Pt provided with resources for [facility] 42811-6Enrreanje department ZruoPI8963-04-63M15:02:16Emefranciscan health department NoteTXT1.2.840.169879.1.13.104.2.7.2.477244|2 002201926KGKpxxelkfu for patient mtxj25627-6LhjzOFTJZQLUPCWHdwqyrpju C-CDA narrative lvjq312412926TogfknyDixon Becerril RN[address] MamhVsnxfcgtxUssdjpbxqEILQ5033897795PLAUZUKNY QVLMMNLARDGMS9925-66-32T22:02:161.2.840.12541 0.1.72.3.15|1.2.840.602999.1.13.104.2.7.2.727 [id number] Dixon Becerril RN [facility] 2024-03-11 23:49:16 1231-64-57V70:49:16Formatting of this no te might be different from the original.Dr. Green informed of pt repeat BGL and pt cleared for discharge 86176-9Iigloikdq department VmgbDZ7916-72-75I77:59:32[facility] department NoteTXT1.2.840.721583.1.13.104.2.7.2.667137|2 [id number] for patient ilfc67490-7RetwEOJFYAYKQVDRfehystwk C-CDA narrative qjqq668484726Dgvzweo Orzechowska RNUT[address] [id number] TYZMGBQBDNXLC0006-28-94D58:59:321.2.840.73474 0.1.72.3.15|1.2.840.422316.1.13.104.2.7.2.727 [id number] Rachana Pettit RN [facility] 2024-03-11 23:48:43 6304-60-08N07:48:43Formatting of this no te might be different from the original.SW bedside 67505-1Bniyhjjgd department KicjRW8096-92-07P23:48:49[facility] department NoteTXT1.2.840.656696.1.13.104.2.7.2.174887|2 [id number] for patient mihp77923-3AwvtTSRZHSBETFVKeocfwwyn C-CDA narrative text[id number] IGRSMQDQQCPBK7940-79-30J33:48:491.2.840.80636 0.1.72.3.15|1.2.840.663333.1.13.104.2.7.2.727 [id number] [facility] 2024-03-11 23:42:25 1543-39-70E60:42:25Formatting of this no te might be different from the original.BGL 213 after completion of 2nd liter of NaCl and 2 hours post 10u IVP insulin 23948-6Unwvviprn department EvahWZ6814-49-61R35:43:05[facility] NoteTXT1.2.840.254895.1.13.104.2.7.2.065550|2 [id number] for patient bgso69362-0RruaXEZASNXOIOESnpopdkrd C-CDA narrative text[id number] NMJFRYPRVPPCG6214-04-26U33:43:051.2.840.67893 0.1.72.3.15|1.2.840.008773.1.13.104.2.7.2.727 [id number] [facility] 2024-03-11 22:46:08 0548-41-70L31:46:08Formatting of this no te might be different from the original.BGL: 258. This is after the first 1L NaCL and 1 hour post 10u IVP insulin 56819-5Ptokjirhv department BxbcJQ5927-10-11G18:46:44[facility] NoteTXT1.2.840.284483.1.13.104.2.7.2.284998|2 [id number] for patient hgab85744-5UrwbWBHXTBYZIFHGavddpalr C-CDA narrative [id number] ZCUUWDFQPCGAD3734-97-11I60:46:441.2.840.87088 0.1.72.3.15|1.2.840.692097.1.13.104.2.7.2.727 [id number] [facility] 2024-03-11 21:37:43 4909-41-72A55:37:43Formatting of this no te might be different from the original.Dr. Millard confirmed to give 10u insulin IVP now [address]176-3Wjxnhwohz[address] VfkoZB9173-43-04D60:43:07[facility] NoteTXT1.2.840.306501.1.13.104.2.7.2.497163|2 [id number] for patient kjow28859-9VqlgXIHMNBWHLVCWnfzlxayk C-CDA narrative [id number] QFOELPNONEPAF1123-34-05A31:43:071.2.840.64642 0.1.72.3.15|1.2.840.071978.1.13.104.2.7.2.727 [id number] [facility] 2024-03-11 21:30:15 0008-30-54U18:30:15Formatting of this no te might be different from the original.BGL 579. Provider contacted to verify IVP insulin order 91400-0Wnzrqhodd[address] SuzwCX7798-44-19G07:30:33[facility] NoteTXT1.2.840.850981.1.13.104.2.7.2.738600|2 [id number] for patient ybtv68217-9PjuuOBWPOJXJNVGSkvmkwaef C-CDA narrative [id number] UKVWJGQFIMOXA2547-12-36U76:30:331.2.840.30101 0.1.72.3.15|1.2.840.004157.1.13.104.2.7.2.727 [id number] [facility] 2024-03-11 21:19:00 2404-78-25Z16:19:00Formatting of this no te might be different from the original.Pt returned from imaging NAD noted 93386-1Sdoyslqyt department LodwZG9591-43-37I92:23:30[facility] NoteTXT1.2.840.118853.1.13.104.2.7.2.714854|2 [id number] for patient muug24975-5JmewFZMCBJBCDUWNxgmxcimf C-CDA narrative text[address]IfpaPrlyvrnlzJrtftkrsnJIAY7846685931VRYRAFMKE EAXBRDLDMKRKF5879-79-28D85:23:301.2.840.49419 0.1.72.3.15|1.2.840.898565.1.13.104.2.7.2.727 [id number] [facility] 2024-03-11 20:28:55 5479-72-34O72:28:55Formatting of this no te might be different from the original.Pt ao4 presents via EMS c/o progressive bilateral leg weakness. Pt reports he was suppose to be [facility] at [facility] EMS glucometer read HI (monitor max at [...] ventral, approx 200ml NaCL givenDr. [place] bedside 18229-5Qupkqhiby department GgjkUT5640-17-91I98:46:36[facility] NoteTXT1.2.840.252220.1.13.104.2.7.2.559513|2 [id number] for patient cifb40611-5YcavPXXSWEIHRSWYcollfxss C-CDA narrative textUTUTMB - Dlysnp031 University NhjkDoejmceqiFkjxpgohwFGPJ0690963907PTSSAAUPY XSIIRCKITCPRS3375-38-55J67:46:361.2.840.36666 0.1.72.3.15|1.2.840.531468.1.13.104.2.7.2.727 [id number] [facility] 2024-03-11 20:16:12 8744-21-98H26:16:12Formatting of this no te might be different from the original.Raj Morales is a 69 year old male presents to ED c/o bilateral leg weakness. Patient reports going on for 2-3 months, worsening tonight and unable to walk up steps to [facility] [employer]. Patient Aox4, NAD noted, VSS, RR e/u. SKIN DRIER 20g R wrist, BGL HI for EMS. EKG in triage. Patient to room for further evaluation. 11294-6Zuzvkedas department Triage ikfeMZ2402-86-27X23:18:47[facility] department Triage noteTXT1.2.840.303555.1.13.104.2.7.2.375898|2 [id number] for patient htgn44990-8Bytzivfdm department NoteLNNARRATIVEFormatted C-CDA narrative [id number] L Payne RNUT[address] [id number] CISNEROSPBBHKNYHKHAYO0227-20-42D95:18:471.2.840.45399 0.1.72.3.15|1.2.840.527155.1.13.104.2.7.2.727 [id number] Lacey Bentley RN [facility] 2024-03-11 20:15:00 9203-18-04U46:15:00Formatting of this no te is different from the original.[facility] Emergency Department NotePatient Name: Raj Mackey of : 1955 69 year old maleTreatment Room: [address] [place], [place] [address]cal Record Number: [id number] Care Physician: Rakesh Oh Escorted by: Self [9]Mode of Arrival: EMS - GEMS [30]EMS Treatment Prior to ED Arrival:SKIN DRIER treatment: Saline lock;IVFTravel and Exposure Screening:SymptomsDoes patient [...] time walking up the steps of the [employer] due to bilateral leg weakness. Patient states this has been going on for a couple of months but it was worst today. Patient denies any recent trauma or recent illnessHistory provided by: PatientLanguage translator interpreter used: NoPast Medical History/Immunizations:Past Medical History:Diagnosis DateAcute midline low back pain without sciatica 01/18/2020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) 10/12/2019CataractOS ONLYCellulitis of foot, left 04/12/2020DiabetesDiabetic eye exam 12/01/2019Added automatically from request for surgery [id number] of both legs 02/28/2020Erectile dysfunction, unspecified erectile dysfunction type 02/28/2020Essential hypertension 02/28/2020HTN (hypertension)HyperlipidemiaObesity (BMI 30-39.9) 03/17/2019Psoriasiform dermatitis 1Stroke 2017Type 2 diabetes mellitus with vascular disease 10/12/2019Upper respiratory tract infection, unspecified type 10/12/2019Tetanus received in last 5 years: YesChildhood immunizations: Ac-qa-ehqaFuaklselc:No Known AllergiesPast Social History:Tobacco UseNever smoked or used smokeless tobacco.Alcohol UseNo.Drug UseNo.Past Surgical History:Past Surgical History:Procedure Laterality DateCOLONOSCOPY N/A 12/30/2019Surgeon: Glo Finn MD; [facility]ANSPL[facility],LAMELLAR BilateralKNEE JKCYZLRWGWG7331KPKAFORCEGUUVFJD KERATOPLASTYPHACOEMULSIFICATION OF CATARACT WITH INTRAOCULAR LENS IMPLANT Right 03/17/2019Surgeon: Virgil Martinez MD; Location: [facility] OR LocationReview of Systems:Review of SystemsConstitutional: [...] 0.03 0.01 - 0.09 10*3/uLCOMP. METABOLIC PANEL (52506) - AbnormalNA 130 (*) 135 - 145 [...] U/LAST(SGOT) 16 13 - 40 U/LeGFR 64.4 mL/min/1.50y6YDNRFOYO KINASE - AbnormalCK 32 (*) 33 - [...] SPINE 2 VWCbc with DiffComp. Metabolic Panel (59137)Creatine KinaseTroponin IPOCT GLUCOSE (AUTOMATED)POCT GLUCOSE(AGE >30DAYS)POCT GLUCOSE (AUTOMATED)Orders Placed This EncounterMedicationsNaCl 0.9% (NS) bolus infusion 1,000 mLinsulin regular human (HUMULIN R) injection 10 UnitsNaCl 0.9% (NS) bolus infusion 1,000 mLFirst Provider Eval:ED EventsDate/Time Event User Viryyvzv88/19/242022 Medical Screening Begins DL MILLARD MD --03/11/242022 [...] Use as directedLANCETS (TRUEPLUS LANCETS) [address] [facility] Monitor Blood Glucose dailyLISINOPRIL-HYDROCHLOROTHIAZIDE 10-12.5 MG PER TABLET Take 1 tablet by mouth once dailyMETFORMIN 1,000 MG TABLET Take 1 tablet by mouth 2 (two) times daily with meals.MISCELLANEOUS MEDICAL SUPPLY [facility] E11.8: dispense Insulin Syringe 31 gauge brand [...] medicationsNo medications on fileFollow-up:Electronically signed by:Dl Millard MD03/11/249 43112-1Bhaqlwuyw Emergency department YbxoSX8774-70-82C19:29:59Physician Emergency department NoteTXT1.2.840.469144.1.13.104.2.7.2.049035|2 [id number] for patient wvdf33686-0Gltlsmcpu department NoteLNNARRATIVEFormatted C-CDA narrative textUTCARRIE [facility] - [address] EfegUcrkjhsorAivujassbGJWK8321147382CCMIOIZQC AZRPEKJOPPPRL3418-30-44N86:29:591.2.840.33575 0.1.72.3.15|1.2.840.816796.1.13.104.2.7.2.727 [id number] [facility] 2024-02-10 14:56:30 9623-48-08G89:56:30Formatting of this no te might be different from the original.PT D/C home. GCS15, VS stable. Given D/C paperwork. Pt ambulatory at time of discharge. Pt educated on med usage, follow up care, s/s worsening condition, need for hydration. Pt verbalized understanding.[facility] arrived to transport patient. Pt given a care package upon discharge 83930-8Knptgfjgc department YavfZX8633-61-76O48:58:55[facility] department NoteTXT1.2.840.256167.1.13.104.2.7.2.164228|2 [id number] for patient occw53764-9ZtakJZDTZUPFFMWVcvmvtrjt C-CDA narrative Virax[address] [id number] GHCENCKONBCSS3559-91-09V51:58:551.2.840.44752 0.1.72.3.15|1.2.840.032934.1.13.104.2.7.2.727 [id number] [facility] 2024-02-10 14:54:31 7904-58-49U29:54:31Formatting of this no te might be different from the original.Pt finishing food tray 54764-9Jnufuhlsn department HtjaJQ9198-97-82R91:54:39[facility] NoteTXT1.2.840.210324.1.13.104.2.7.2.828540|2 [id number] for patient apiw45729-5GlduDTDTUJHHUSOWmfjtnjoz C-CDA narrative Virax[id number] CISNEROSPOBTLNXKYXFSH7120-92-89S27:54:391.2.840.30978 0.1.72.3.15|1.2.840.388427.1.13.104.2.7.2.727 [id number] [facility] 2024-02-10 11:55:54 6093-93-29U65:55:54Formatting of this no te might be different from the original.Pt states he is dizzy when he walks and has pain.Pt reports having these symptoms for months. 11705-9Rwmmstwwq department Triage xxfaXH1826-83-33F51:58:28[facility] Triage noteTXT1.2.840.684416.1.13.104.2.7.2.870031|2 [id number] for patient yxbu45873-4Jqydowvxk department NoteLNNARRATIVEFormatted C-CDA narrative ndxu026632185Vdep E Linkes RNUT[address] [id number] NGRPZVXXXJJGN6181-98-34B24:58:281.2.840.47504 0.1.72.3.15|1.2.840.836745.1.13.104.2.7.2.727 879_[id number] Merry Wise RN [facility] 2024-02-09 21:15:50 9425-99-88R13:15:50Formatting of this no te might be different from the original.Pt given printed and verbal discharge instructions regarding bilateral low back pain, encouraged hydration,Pt verbalized understanding of instructions,pt encouraged to follow up with pcpAdvised to seek medical attention for new/prolonged/worsening of symptoms,No adverse reaction to meds given in ER noted upon dischargeAwake, alert oriented, resp reg unlabored, skin w/d, pt leaving in no apparent distress, 52914-9Jadvtmeqf department DcoxNL6574-71-82Q54:17:06[facility] NoteTXT1.2.840.674921.1.13.104.2.7.2.420679|2 [id number] for patient xpjo17476-5ZkbyEFCKEHALXUWVemycpygk C-CDA narrative drtv214363214Gzozjy R Shehadeh RN[id number] ORXCGAPOKPPOT5259-81-89R94:17:061.2.840.20491 0.1.72.3.15|1.2.840.447375.1.13.104.2.7.2.727 879_[id number] Chelsea Jackson RN [facility] 2024-02-09 21:08:09 3994-61-03W39:08:09Formatting of this no te might be different from the original.Pt has been discharged for several hours. He is being loaded into a WC at this time to wait in lobby. He asked nursing to call red Qiu. Jose Raulanju states that her and her friend are trying to find him a fci. At this pt being placed in the lobby. 24275-2Odslnvjfv[address] VypiFR7799-35-89E73:10:35[facility] NoteTXT1.2.840.839964.1.13.104.2.7.2.538164|2 [id number] for patient zzpe28549-4YpmzZJWKKAZVGFEUjdqvvtob C-CDA narrative text[address] [id number] JFTMOEZFGJJZK7066-96-04R63:10:351.2.840.61919 0.1.72.3.15|1.2.840.015223.1.13.104.2.7.2.727 [id number] [facility] 2024-02-09 14:20:00 1332-68-91M82:20:00Formatting of this no te might be different from the original.Patient c/o lower back pain. Denies injury 25426-8Sfcthdsxv department TrxbEV7993-22-88R07:35:03[facility] department NoteTXT1.2.840.967738.1.13.104.2.7.2.345151|2 [id number] for patient pler10665-5NymaIWBKIWDCRRKRtpappzon C-CDA narrative textUT[address] [id number] JKJYRDKGYXCCM4532-19-01C54:35:031.2.840.25376 0.1.72.3.15|1.2.840.904127.1.13.104.2.7.2.727 [id number] [facility] 2024-02-09 14:01:15 4557-49-86R63:01:15Formatting of this no te might be different from the original.Patient transported by [facility], patient c/o back pain and needed to be cleaned up. Patient is homeless and incontinent of urine. 12011-3Hhswwolga department Triage qdyrFK7465-21-71K76:02:01[facility] department Triage noteTXT1.2.840.897479.1.13.104.2.7.2.959587|2 [id number] for patient aagw69461-3Hddqkeyze department NoteLNNARRATIVEFormatted C-CDA narrative [id number] S Cryer [facility] Dfre[id number] JELJWYJBHCHYU4806-74-09M77:02:011.2.840.37908 0.1.72.3.15|1.2.840.209828.1.13.104.2.7.2.727 [id number] Quinn Moyer RN [facility] 2024-02-09 13:59:00 3416-75-20H49:59:00Formatting of this no te is different from the original.Images from the original note were not included.[facility] Emergency Department NotePatient Name: Raj Mackey of : 1955 69 year old maleTreatment Room: Room/bed info not foundMedical Record Number: [id number] Care Physician: Rakesh Oh Escorted by: Self [9]Mode of Arrival: EMS - [facility]) [43]EMS Treatment Prior to ED Arrival:SKIN DRIER treatment: Saline lockTravel and Exposure Screening:SymptomsDoes patient [...] exam 12/01/2019Added automatically from request for surgery [id number] of both legs 02/28/2020Erectile dysfunction, unspecified erectile dysfunction type 02/28/2020Essential hypertension 02/28/2020HTN (hypertension)HyperlipidemiaObesity (BMI 30-39.9) 03/17/2019Psoriasiform dermatitis 1Stroke 2017Type 2 diabetes mellitus with vascular disease 10/12/2019Upper respiratory tract infection, unspecified type 10/12/2019Tetanus received in last 5 years: NoChildhood immunizations: Qc-qg-rlkeNwptwvapk:No Known AllergiesPast Social History:Tobacco UseNever smoked or used smokeless tobacco.Alcohol UseNo.Drug UseNo.Past Surgical History:Past Surgical History:Procedure Laterality DateCOLONOSCOPY N/A 12/30/2019Surgeon: Glo Finn MD; Location: [facility] OR LocationCORNEAL TRANSPLANT,LAMELLAR BilateralKNEE AAJPHRLDVQD2778BNPQUFWAJNASHWOO KERATOPLASTYPHACOEMULSIFICATION OF CATARACT WITH INTRAOCULAR LENS IMPLANT Right 03/17/2019Surgeon: Virgil Martinez MD; [facility]Review of Systems:Review of SystemsConstitutional: Positive for activity [...] 15 mgFirst Provider Eval:ED EventsDate/Time Event User Plsbgave58/19/24 1400 Medical Screening Begins TARA IRELAND MD [...] Use as directedLANCETS (TRUEPLUS LANCETS) [facility] Monitor Blood Glucose dailyLISINOPRIL-HYDROCHLOROTHIAZIDE 10-12.5 MG PER TABLET Take 1 tablet by mouth once dailyMETFORMIN 1,000 MG TABLET Take 1 tablet by mouth 2 (two) times daily with meals.[facility] BEACHCELLANEOUS MEDICAL SUPPLY [facility] E11.8: dispense Insulin Syringe 31 gauge brand [...] medicationsNo medications on fileFollow-up:Electronically signed by:Tara Ireland MD02/09/24 1710 14803-9Jyjuephmh Emergency department ZvvqDC1097-97-09M85:10:50[facility] department NoteTXT1.2.840.286969.1.13.104.2.7.2.106085|2 [id number] for patient koyf97770-2Dsvyqvuam department NoteLNNARRATIVEFormatted C-CDA narrative textUT35 [address] [id number] WZNYGPEERWVOV6686-66-14C30:10:501.2.840.95541 0.1.72.3.15|1.2.840.556848.1.13.104.2.7.2.727 [id number] [facility] 2024-02-06 11:48:50 7439-92-26X80:48:50Formatting of this no te might be different from the original.Written/verbal d/c instructions, out of er via wheelchair, pt requests [facility] PD to call [place] [employer], states [employer] told him they would give him a ride back to [facility] to get his cart that he uses to walk, states [employer]D hid his cart behind the building while [facility] transported to hospital, [facility] [place] [address]-7Gezhdbkso department DwvxXC8807-42-24T04:50:36[facility] NoteTXT1.2.840.157416.1.13.104.2.7.2.939802|2 [id number] for patient egxf15766-4HwodZHYDNJNIGMKBwyltbmgt C-CDA narrative qmwg945903065Hffjpo M. Barton RNUT[address] [id number] MEWFVGSGIPGEN7331-98-66V48:50:361.2.840.18261 0.1.72.3.15|1.2.840.464211.1.13.104.2.7.2.727 [id number] Zarina Martin RN [facility] 2024-02-06 09:24:07 5106-70-82W54:24:07Formatting of this no te might be different from the original.[facility] states: "Pt is coming in for chronic back pain. He's had it for over a month now. He's homeless. Has a history of stroke. He does have a cut on his finger that he might need an antibiotic for. His bgl was 202. The police said to call him when he gets discharged and he would take him back to [place] he is living. The engraver copperplate also gave him 20 dollars so he should have some money for an antibiotic" 41770-2Cvvqmrntb department Triage vkfkUI0230-26-42K01:26:33[facility] Triage noteTXT1.2.840.667702.1.13.104.2.7.2.914864|2 [id number] for patient ifyl41974-0Guwpemddp department NoteLNNARRATIVEFormatted C-CDA narrative [id number] M Cruz RN[address] FikvIixejhyosRazbtkbqwVCFY1905662674PYRCYJHBU MVIDGPSWIDAWO8842-37-71I40:26:331.2.840.64118 0.1.72.3.15|1.2.840.593832.1.13.104.2.7.2.727 [id number] Vandana Gallegos RN [facility] 2024-02-06 09:16:00 7344-14-38L81:16:00Formatting of this no te is different from the original.Images from the original note were not included.[facility] Emergency Department NotePatient Name: Raj Mackey of : 1955 69 year old maleTreatment Room: [address]IOAF39-39Bmzfqkp Record Number: [id number] Care Physician: Rakesh Oh Escorted by: Self [9]Mode of Arrival: EMS - [facility]) [43]EMS Treatment Prior to ED Arrival:Travel and [...] He is currently homeless and lives [facility] [employer] [address]. He was brought in by the PDt and PD states that they "will pick him up and take him back to [facility] at discharge"History provided by: Patient and medical recordsLanguage translator interpreter used: NoPast Medical History/Immunizations:Past Medical History:Diagnosis DateAcute midline low back pain without sciatica 01/18/2020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) 10/12/2019CataractOS ONLYCellulitis of foot, left 04/12/2020DiabetesDiabetic eye exam 12/01/2019Added automatically from request for surgery [id number] of both legs 02/28/2020Erectile dysfunction, unspecified erectile dysfunction type 02/28/2020Essential hypertension 02/28/2020HTN (hypertension)HyperlipidemiaObesity (BMI 30-39.9) 03/17/2019Psoriasiform dermatitis 1Stroke 2017Type 2 diabetes mellitus with vascular disease 10/12/2019Upper respiratory tract infection, unspecified type 10/12/2019Allergies:No Known AllergiesPast Social History:Tobacco UseNever smoked or used smokeless tobacco.Alcohol UseNo.Drug UseNo.Past Surgical History:Past Surgical History:Procedure Laterality DateCOLONOSCOPY N/A 12/30/2019Surgeon: Glo Finn MD; [facility]PL[facility],LAMELLAR BilateralKNEE [id number] KERATOPLASTYPHACOEMULSIFICATION OF CATARACT WITH INTRAOCULAR LENS IMPLANT Right 03/17/2019Surgeon: Virgil Martinez MD; Location: [facility] OR LocationReview of Systems:Review of SystemsMusculoskeletal: [...] Hearing normal.Left Ear: Hearing normal.Nose: Nose normal.Mouth/Throat:Lips: Walls.Mouth: Mucous membranes are dry.Pharynx: Oropharynx is clear. [...] mg tabletFirst Provider Eval:ED EventsDate/Time Event User Ceqqzcmt71/16/24 1039 Medical Screening Begins DESTINY MULLER --02/06/24925 First Provider Evaluation YOHANAMINDYDESTINY A --ED COURSEED Course as of 02/06/24 1137Sat Feb [id number] MUCOUS(!): Slight [KV]1129 PROTEIN(!): 30 mg/dL [KV]1129 KETONES(!): 20 mg/dL [KV]1129 GLU U QUAL(!): 50 mg/dL [KV]1050 Cyclobenzaprine helped lumbar symptoms. Awaiting UA results [KV]1032 Imaging spine 2 view is negative for any new osseous lesions. 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 I was available for consultation as needed at all times during the patient's visit in the emergency department. I agree with the clinical impression, plan and disposition.98865-5Mntlzoonw Emergency department FvzhAU8841594Scbnt, Yasin1.2.840.632054.1.13.104.2.7.2.073549Pwph oLqrzzNA9304-91-45S49:41:33[facility] Emergency department NoteTXT1.2.840.546083.1.13.104.2.7.2.569316|2 [id number] for patient ggei16001-0Xvxrudteq department NoteLNNARRATIVEFormatted C-CDA narrative text[address] HtanAriuhfiphWzpwoqqqoSIBB2615088947ORKGKGKLP RFRACYDFXOWXK8544-01-62U79:41:331.2.840.65004 0.1.72.3.15|1.2.840.675053.1.13.104.2.7.2.727 [id number] [facility] 2024-01-30 14:56:27 8204-21-83J16:56:27Formatting of this no te might be different from the original.Pt given discharge instructions on flank pain. Pt given prescription X 2 for bentyl and tinazadine. Pt advised to follow up with pcp. 58669-4Plilbcoib department YjdiSF2718-41-63U75:01:55[facility] department NoteTXT1.2.840.765203.1.13.104.2.7.2.401636|2 [id number] for patient xwnh72404-9VenjREEYKBIBXOVDldhxcjku C-CDA narrative ipvg358063682Regit M Cruz RN[id number] DQHPRQJSALGYT7029-00-62F02:01:551.2.840.57021 0.1.72.3.15|1.2.840.434478.1.13.104.2.7.2.727 [id number] Vandana Gallegos [facility] 2024-01-30 10:04:33 6548-93-10G17:04:33Formatting of this no te might be different from the original.Patient arrived [...] is homeless and called 911 at the [employer]. 29029-5Zjlsxgrzo department Triage cqzbQI0345-50-80F02:05:50[facility] Triage noteTXT1.2.840.687158.1.13.104.2.7.2.734707|2 [id number] for patient vqaw96440-0Fmvvunsyj department NoteLNNARRATIVEFormatted C-CDA narrative [id number] Barrios RN[id number] UVHWFOBDGHRCU6044-26-90Y78:05:501.2.840.47347 0.1.72.3.15|1.2.840.844918.1.13.104.2.7.2.727 [id number] Nimisha D Sophie HENSON [facility] 2024-01-14 21:46:53 9175-26-19O72:46:53Formatting of this no te might be different from the original.Pt given [...] unlabored, skin w/d, in no apparent distress, [address]-9Jmixxegaj department QpojIJ2664-25-88G52:48:20Emergency department NoteTXT1.2.840.496734.1.13.104.2.7.2.006794|2 [id number] for patient ovgv53911-3CmecAYHMOLSUNCWGendchdwj C-CDA narrative [id number]-Tivba McInnis RN[address] Kr[id number] LUOTTQUGYHFFK2832-27-29N52:48:201.2.840.96188 0.1.72.3.15|1.2.840.934985.1.13.104.2.7.2.727 [id number] Dennis Varghese RN [facility] 2024-01-14 21:14:37 4539-75-82X73:14:37Formatting of this no te might be different from the original.CC: Back here again for low back pain since beginning of the month. Pt states he may have fallen on the floor but doesn't have any memory of it. He thinks it may be because he doesn't get much sleep being homeless. Pt requesting "pain killer." Denies changes in urinationPMHx: GA4Hjugk, alert, oriented, resp reg unlabored, skin warm, color appropriate for race, moves all ext without difficultyBLG by EMS 374. [facility] Chelsea Jackson RN at 01/14/2024 9:19 PM [id number] department Triage shjrXJ2547-38-36E04:19:14[facility] Triage noteTXT1.2.840.070808.1.13.104.2.7.2.629710|2 [id number] for patient epei14601-4Ffqohrbdx department NoteLNNARRATIVEFormatted C-CDA narrative [id number] R Shehadeh RN[address] T[id number] [id number]:19:[id number] 0.1.72.3.15|1.2.840.114963.1.13.104.2.7.2.727 [id number] Chelsea Jackson RN [facility] 2024-01-05 06:35:49 [id number]:35:49Formatting of this no te might be different from the original.CC: lower back pain x 1 week. "I think it was the mattress I was sleeping on." Pt denies urinary symptoms. Pt didn't attempt OTC PTAPMHx: noneAwake, alert, oriented, resp reg unlabored, skin warm, color appropriate for race, moves all ext without difficulty, amb with slumpped gait. [id number] department Triage ogmxCV8856-98-15R77:41:21[facility] Triage [id number]|2 [id number] for patient [id number] department NoteLNNARRATIVEFormatted C-CDA narrative [id number] R Shehadeh RN[address] Xd[id number] YKIQDVXTUMTFW2594-56-31A64:41:[id number] 0.1.72.3.15|1.2.840.257052.1.13.104.2.7.2.727 [id number] Chelsea Jackson RN [facility] 2024-01-05 06:31:00 [id number]:31:00Formatting of this no te is different from the original.[facility] Emergency Department NotePatient Name: Raj Mackey of : 1955 69 year old maleTreatment Room: [place] [address]Medical Record Number: [id number] Care Physician: Tl ArandaPatient Escorted by: Self [9]Mode of Arrival: Personal means [1]EMS Treatment Prior to ED Arrival:SKIN DRIER treatment: NoneTravel and Exposure Screening:SymptomsDoes patient have [...] is still. He has not tried any rarm-kit-zjpeoyc medications as he does not like to take medications. He reports over the past several weeks his pain does seem to be improving. No dysuria or hematuria. No loss of bowel or bladder function. He denies taking any daily medications.Here for evaluation.Past Medical History/Immunizations:Past Medical History:Diagnosis DateAcute midline low back pain without sciatica 01/18/2020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) 11/20/2019CataractOS ONLYCellulitis of foot, left 04/12/2020DiabetesDiabetic eye exam 12/01/2019Added automatically from request for surgery [id number] of both legs 02/28/2020Erectile dysfunction, unspecified erectile dysfunction type 02/28/2020Essential hypertension 02/28/2020HTN (hypertension)HyperlipidemiaObesity (BMI 30-39.9) 03/17/2019Psoriasiform dermatitis 1Stroke 2017Type 2 diabetes mellitus with vascular disease 10/12/2019Upper respiratory tract infection, unspecified type 10/12/2019Tetanus received in last 5 years: UnknownAllergies:No Known AllergiesPast Social History:Tobacco UseNever smoked or used smokeless tobacco.Alcohol UseNo.Drug UseNo.Past Surgical History:Past Surgical History:Procedure Laterality DateCOLONOSCOPY N/A 12/30/2019Surgeon: Glo Finn MD; [facility],LAMELLAR BilateralKNEE [id number] KERATOPLASTYPHACOEMULSIFICATION OF CATARACT WITH INTRAOCULAR LENS IMPLANT Right 03/17/2019Surgeon: Virgil Martinez MD; [facility]Review of Systems:Review of SystemsConstitutional: Negative for chills [...] 600 mgFirst Provider Eval:ED EventsDate/Time Event User Tbbktbhl89/13/24 0712 Medical Screening Begins JACKIE DIAZ DO [...] Documentation:Scoring Tools:No data recordedDisposition/Condition:ED DispositionED DispositionDisch - [facility] OnlyCondition--CommentPatient did not want to pay co [...] (two) times daily with meals.MISCELLANEOUS MEDICAL SUPPLY [facility] E11.8: dispense Insulin Syringe 31 gauge brand [...] on fileFollow-up:Electronically signed by:Jackie Diaz DO01/05/24 0742 [id number] Emergency department [id number]:42:01Physician Emergency department [id number]|2 [id number] for patient tqtv17317-4Motsqkezk department NoteLNNARRATIVEFormatted C-CDA narrative text[address] Cx[id number] [id number]:42:011.2.840.24342 0.1.72.3.15|1.2.840.892051.1.13.104.2.7.2.727 [id number] [facility]
[2024-05-05] MEDS ORDERED: NA CHLORIDE 0.9% 0 ML ONE (12:09)
[2024-05-05 12:11] LABS: Specific Gravity 1.014 (1.005-1.030); Urine Bilirubin NEGATIVE (Negative); Urine Blood Negative (Negative); Urine Clarity Clear (Clear); Urine Color Light-Yellow (Yellow); Urine Glucose NEGATIVE (Negative); Urine Ketones NEGATIVE (Negative); Urine Microscopic Reflex YN NO UMIC; Urine Nitrite NEGATIVE (Negative); Urine Protein NEGATIVE (Negative); Urine Urobilinogen Normal (Normal)
[2024-05-05 12:14] LABS: Absolute Eosinophils 0.1 K/uL (0-0.5); Absolute Lymphocytes (CBC) 1.6 K/uL (0.7-4.9); Absolute Monocytes 0.7 K/uL (0.1-1.3); Absolute Neutrophil 4.9 K/uL (1.8-8.0); Basophils % 0.6 % (0-1.3); Eosinophils % 1.8 % (0-4.4); Hematocrit 35.7 % (39.6-49.0); Hemoglobin 11.8 g/dL (13.6-17.9); Lymphocytes % 21.9 % (15.3-44.8); MCH 28.7 pg (27.0-35.0); MCHC 33.1 g/dL (32.0-36.0); MCV 86.9 fL (80-100); MPV 7.6 fL (7.6-11.3); Monocytes % 9.9 % (3.3-12.3); Neutrophils % 65.8 % (41.7-73.7); Platelets 294 thou/uL (152-406); RBC Red Blood Cell Count 4.11 M/uL (4.33-5.43); Red Cell Distribution Width 13.2 % (12.1-15.2)
[2024-05-05 12:17] LABS: PT Prothrombin Time 12.8 SECONDS (9.5-12.5); Protime INR 1.17
[2024-05-05 12:34] LABS: ALT/SGPT 17 U/L (16-61); AST/SGOT 11 U/L (15-37); Albumin 2.7 g/dL (3.4-5.0); Albumin/Globulin Ratio 0.7 (1.1-1.8); Alkaline Phosphatase 109 U/L (45-117); Anion Gap 5.7 mEq/L (5.0-15.0); BUN Blood Urea Nitrogen 12 mg/dL (7-18); Bicarbonate 30 mEq/L (21-32); Bilirubin Total 0.3 mg/dL (0.2-1.0); Globulin 3.9 g/dL (2.3-3.5); Glomerular Filtration Rate 77 ml/min (=/>90); Glucose Level 93 mg/dL (74-106); Lipase 16 U/L (13-75); Magnesium 1.8 mg/dL (1.6-2.4); NT PRO-BNP 309 pg/mL (<125); Potassium 3.7 mEq/L (3.5-5.1); Protein, Total 6.6 g/dL (6.4-8.2); Sodium Level 138 mEq/L (136-145); Troponin High Sensitivity 16.8 pg/mL (<58.9)
[2024-05-05 12:41] LABS: Bilirubin Direct < 0.2 mg/dL (0-0.2); Bilirubin Indirect, Calculated 0.1 mg/dL (0.2-0.8)
--- NOTE | 2024-05-05 14:18 | RAD REPORT ---
EXAM DESCRIPTION: CT - Abdomen Pelvis W Contrast - 05/05/2024 1:03 pm CLINICAL HISTORY: Abd pain;Flank pain COMPARISON: No comparisons TECHNIQUE: Thin cut axial CT imaging of the abdomen and pelvis was performed following intravenous a dministration of iodinated contrast. Multiplanar reformats were generated and reviewed. All CT scans are performed using dose optimization technique as appropriate and may include automated exposure control or mA/KV adjustment according to patient size. FINDINGS: No suspicious findings in the lung bases. The liver, spleen, adrenal glands, and pancreas show no suspicious findings. Gallbladder and biliary tree are also without suspicious finding. Symmetric renal function is seen with no hydronephrosis or suspicious renal mass. No dilated bowel loops or bowel wall thickening. No free air, free fluid or inflammatory stranding. S mall umbilical hernia containing fat. No suspicious mass or bulky lymphadenopathy. The urinary bladde r is without significant finding. No suspicious bony findings. Left gluteal region decubitus ulcer with underlying subcutaneous edema and fat stranding. Along the i nferomedial margin of the gluteus belgica, a heterogeneous lobulated area of a marginal patchy enhanc ement and central relative low-density is noted, measuring 2.5 x 1.8 cm in greatest axial dimensions and 3.5 cm in greatest craniocaudal extent. IMPRESSION: Left decubitus ulcer, with underlying small area of heterogeneous enhancement measuring up to 3.5 cm, may represent a phlegmon, early abscess, or contiguous reactive/inflammatory lymph node s. No other acute intra-abdominal process.
--- NOTE | 2024-05-05 14:20 | ER ---
Nurse's Notes [facility] Name: Edwin Linton Age: 69 yrs Sex: Male : 1955 Arrival Date: 05/05/2024 Time: 11:39 Bed 20 Private MD: Diagnosis: Disruption of wound, unspecified, initial encounter-cleaned and repacked left buttock wound, right foot dorsum and left lower ext Presentation: 05/05 11:54 Chief complaint: Patient states: Wound to L lower leg, R foot and buttocks that have ss been ongoing for months that patient needs evaluated. Pt reports he has insulin, but has not been taking it as he should. Coronavirus screen: Client denies travel out of the [place] in the last 14 days. Ebola Screen: Patient denies exposure to infectious person. Patient denies travel to an Ebola-affected area in the 21 days before illness onset. Initial Sepsis Screen: Does the patient meet any 2 criteria? No. Patient's initial sepsis screen is negative. Does the patient have a suspected source of infection? No. Patient's initial sepsis screen is negative. Risk Assessment: Do you want to hurt yourself or someone else? Patient reports no desire to harm self or others. Onset of symptoms is unknown. 11:54 Method Of Arrival: EMS: [facility] 11:54 Acuity: ROLAND 3 ss Historical: - Allergies: 11:56 No Known Allergies; ss - PMHx: 11:46 Cerebrovascular accident; diabetes mellitus; Hypercholesterolemia; Hypertensive aa5 disorder; - Immunization history:: Client reports having NOT received the Covid vaccine. - Infectious Disease History:: Denies. - Social history:: Smoking status: Patient denies any tobacco usage or history of. - Family history:: not pertinent. Screenin:00 [facility] ED Fall Risk Assessment (Adult) History of falling in the last 3 months, aa5 including since admission No falls in past 3 months (0 pts) Confusion or Disorientation No (0 pts) Intoxicated or Sedated No (0 pts) Impaired Gait Yes (1 pt) Mobility Assist Device Used Yes (1 pt) Altered Elimination No (0 pt) Score/Fall Risk Level 0 - 2 = Low Risk Oriented to surroundings, Maintained a safe environment, Educated pt \\T\\ family on fall prevention, incl call for assistance when getting out of bed. Abuse screen: Denies threats or abuse. Nutritional screening: No deficits noted. Tuberculosis screening: No symptoms or risk factors identified. Assessment: 12:00 General: Appears comfortable, Behavior is calm, cooperative. Pain: Denies pain. Neuro: aa5 Level of Consciousness is awake, alert, obeys commands, Oriented to person, place, time, situation. Cardiovascular: Patient's skin is warm and dry. Respiratory: Airway is patent Respiratory effort is even, unlabored, Respiratory pattern is regular, symmetrical. GI: No signs and/or symptoms were reported involving the gastrointestinal system. : No signs and/or symptoms were reported regarding the genitourinary system. EENT: No signs and/or symptoms were reported regarding the EENT system. Derm: Skin is pink, warm \\T\\ dry. Quater-sized open wound noted to left lower leg, no drainage noted with granulation tissue with small amount of yellowish tissue noted. Musculoskeletal: Pt reports he uses walker to ambulate. 13:00 Reassessment: Pt currently at CT . aa5 14:15 Reassessment: Patient is alert, oriented x 3, equal unlabored respirations, skin aa5 warm/dry/pink. Pt provided extra warm blankets for comfort. . 14:45 Reassessment: Pt now resting in bed with eyes closed. . aa5 15:00 Reassessment: Attempting to d/c patient but pt reports he is homeless and doesn't have aa5 a place to go or stay at. Charge nurse notified. . 15:39 Reassessment: Pt declined to go to the [facility], pt states "I've been aa5 there before and I am not going back". States doesn't have the money to pay for a motel at this time. Pt states he has used [employer] bus before. . 16:10 Reassessment: [employer] bus arranged by charge nurse, will be here around 7pm, aa5 pt aware and agrees to wait in ER lobby. . 16:15 Reassessment: Patient is alert, oriented x 3, equal unlabored respirations, skin aa5 warm/dry/pink. Vital Signs: 11:54 BP 123 / 68; Pulse 61; Resp 16; Temp 97.9(TE); Pulse Ox 98% on R/A; Height 5 ft. 10 in. ss ; 13:00 BP 123 / 68; Pulse 54; Resp 16 S; Pulse Ox 96% on R/A; aa5 15:00 BP 120 / 56; Pulse 52; Resp 18 S; Pulse Ox 99% on R/A; aa5 ED Course: 11:42 Patient arrived in ED. bc6 11:42 Clarence Reddy MD is Attending Physician. stan 11:46 Shamika Ortiz, RN is Primary Nurse. aa5 11:46 Arm band placed on. aa5 11:55 Triage completed. ss 12:00 Patient has correct armband on for positive identification. Placed in gown. Bed in low aa5 position. Call light in reach. Side rails up X 1. 12:00 Client placed on continuous cardiac and pulse oximetry monitoring. NIBP monitoring aa5 applied. teletypesetter on. Pulse ox on. NIBP on. 12:05 Initial lab(s) drawn, by me, sent to lab. Inserted saline lock: 20 gauge in right aa5 antecubital area, using aseptic technique. Blood collected. 12:15 EKG done, by ED staff, reviewed by Clarence Reddy MD. as6 13:00 XRAY Chest (1 view) In Process Unspecified. EDMS 13:05 CT Abd/Pelvis - IV Contrast Only In Process Unspecified. EDMS 14:17 Alex Weeks MD is Referral Physician. [facility] 14:37 Wound culture swab sent to lab. aa5 14:37 Wound care: to left buttocks dressed with gauze and Tegaderm and wound to left lower aa5 leg dressed with Neosporin, gauze, and clovis bandage per . 15:45 Assisted with urinal. Assisted with dressing. [id number] 16:10 No provider procedures requiring assistance completed. IV discontinued, intact, aa5 bleeding controlled, No redness/swelling at site. Pressure dressing applied. Administered Medications: 14:16 Not Given (Physician Discretion): ns 0.9% 1000 ml IV at 1 bolus Per protocol; 1000 mL aa5 bolus 14:40 Drug: Trimethoprim-Sulfamethoxazole PO (160 mg-800 mg (DS) 1 tablet PO once Route: PO; aa5 16:00 Follow up: Response: No adverse reaction aa5 14:40 Drug: Cephalexin PO 500 mg PO once Route: PO; aa5 16:00 Follow up: Response: No adverse reaction aa5 Medication: 14:44 VIS not applicable for this client. aa5 Outcome: 14:19 Discharge ordered by . stan 16:15 Discharged to [facility], waiting on [employer] bus in [facility]. Pt was given food aa5 items. 16:15 Condition: stable 16:15 Discharge instructions given to patient, Instructed on discharge instructions, follow up and referral plans. medication usage, Demonstrated understanding of instructions, follow-up care, medications, Prescriptions given X 3, 16:18 Patient left the ED. ld1 Signatures: Dispatcher [employer] EDMS Clarence Reddy MD MD cha Calderon, Audri, RN RN aa5 Ibeth Ball RN RN Isabel Saunders RN RN ld1 Florentin Varela RN RN as6 Shaniqua Elias Jordan [email or web address] Corrections: (The following items were deleted from the chart) 14:53 12:00 Derm: Skin is pink, warm \\T\\ dry. aa5 aa5 15:44 15:39 Reassessment: Pt reports he is homeless and doesn't have a place to go. Pt aa5 declined to go to the [facility] detention, pt states "I've been there before and I am not going back". States doesn't have the money to pay for a motel at this time. Pt states he has used [employer] bus before. . aa5
--- NOTE | 2024-05-05 14:20 | EDPHYS ---
Physician Documentation [facility] Name: Edwin Linton Age: 69 yrs Sex: Male : 1955 Arrival Date: 05/05/2024 Time: 11:39 Bed 20 Private MD: ED Physician Clarence Reddy HPI: 05/05 14:10 This 69 yrs old Male presents to ER via EMS with complaints of Wound Recheck. [facility] 14:10 Patient presents to ED for recheck of: left buttock wound. The affected area is on the [facility] left gluteus belgica. Previous treatment: opened and packed. Progress: The patient reports decreased drainage, pain. The patient has experienced similar episodes in the past, several times. Historical: - Allergies: 11:56 No Known Allergies; ss - PMHx: 11:46 Cerebrovascular accident; diabetes mellitus; Hypercholesterolemia; Hypertensive aa5 disorder; - Immunization history:: Client reports having NOT received the Covid vaccine. - Infectious Disease History:: Denies. - Social history:: Smoking status: Patient denies any tobacco usage or history of. - Family history:: not pertinent. ROS: 14:10 Constitutional: Negative for fever, chills, and weight loss, Eyes: Negative for injury, stan pain, redness, and discharge, ENT: Negative for injury, pain, and discharge, Neck: Negative for injury, pain, and swelling, Cardiovascular: Negative for chest pain, palpitations, and edema, Respiratory: Negative for shortness of breath, cough, wheezing, and pleuritic chest pain, Abdomen/GI: Negative for abdominal pain, nausea, vomiting, diarrhea, and constipation, Back: Negative for injury and pain, : Negative for injury, bleeding, discharge, and swelling, MS/Extremity: Negative for injury and deformity, Neuro: Negative for headache, weakness, numbness, tingling, and seizure, Psych: Negative for depression, anxiety, suicide ideation, homicidal ideation, and hallucinations, Allergy/Immunology: Negative for hives, rash, and allergies, Endocrine: Negative for neck swelling, polydipsia, polyuria, polyphagia, and marked weight changes, Hematologic/Lymphatic: Negative for swollen nodes, abnormal bleeding, and unusual bruising, 14:10 Skin: Positive for left buttock, right foot, left lower extremity, Exam: 14:15 Constitutional: This is a well developed, well nourished patient who is awake, alert, stan and in no acute distress. Head/Face: Normocephalic, atraumatic. Eyes: Pupils equal round and reactive to light, extra-ocular motions intact. Lids and lashes normal. Conjunctiva and sclera are non-icteric and not injected. Cornea within normal limits. Periorbital areas with no swelling, redness, or edema. ENT: Nares patent. No nasal discharge, no septal abnormalities noted. Tympanic membranes are normal and external auditory canals are clear. Oropharynx with no redness, swelling, or masses, exudates, or evidence of obstruction, uvula midline. Mucous membranes moist. Neck: Trachea midline, no thyromegaly or masses palpated, and no cervical lymphadenopathy. Supple, full range of motion without nuchal rigidity, or vertebral point tenderness. No Meningismus. Chest/axilla: Normal chest wall appearance and motion. Nontender with no deformity. No lesions are appreciated. Cardiovascular: Regular rate and rhythm with a normal S1 and S2. No gallops, murmurs, or rubs. Normal PMI, no JVD. No pulse deficits. Respiratory: Lungs have equal breath sounds bilaterally, clear to auscultation and percussion. No rales, rhonchi or wheezes noted. No increased work of breathing, no retractions or nasal flaring. Abdomen/GI: Soft, non-tender, with normal bowel sounds. No distension or tympany. No guarding or rebound. No evidence of tenderness throughout. Back: No spinal tenderness. No costovertebral tenderness. Full range of motion. Male : Normal genitalia with no discharge or lesions. Neuro: Awake and alert, GCS 15, oriented to person, place, time, and situation. Cranial nerves II-XII grossly intact. Motor strength 5/5 in all extremities. Sensory grossly intact. Cerebellar exam normal. Normal gait. Psych: Awake, alert, with orientation to person, place and time. Behavior, mood, and affect are within normal limits. 14:15 Skin: abscess, not appreciated, cellulitis, is not appreciated, induration, is not appreciated, injury, is not appreciated, 14:23 ECG was reviewed by the Attending Physician. [facility] Vital Signs: 11:54 BP 123 / 68; Pulse 61; Resp 16; Temp 97.9(TE); Pulse Ox 98% on R/A; Height 5 ft. 10 in. ss ; 13:00 BP 123 / 68; Pulse 54; Resp 16 S; Pulse Ox 96% on R/A; aa5 15:00 BP 120 / 56; Pulse 52; Resp 18 S; Pulse Ox 99% on R/A; aa5 MDM: 11:43 Patient medically screened. [facility] 14:15 Differential diagnosis: cellulitis. Data reviewed: vital signs, nurses notes, lab test stan result(s), EKG. Consideration of Admission/Observation Escalation of care including admission/observation considered. I considered the following discharge prescriptions or medication management in the emergency department Medications were administered in the Emergency Department. See MAR. Independent interpretation of the following test(s) in the Emergency Department EKG: See my EKG interpretation above. Test considered but Not performed: Ultrasound no le venous doppler. 14:24 ED course: i and the charge nurse offered pt [facility] placement , pt refused, stan would rather be on his own. 05/05 11:45 Order name: Basic Metabolic Panel; Complete Time: 12:49 [facility] 05/05 11:45 Order name: CBC with Diff; Complete Time: 12:27 [facility] 05/05 11:45 Order name: LFT's; Complete Time: 12:49 [facility] 05/05 11:45 Order name: Magnesium; Complete Time: 12:49 [facility] 05/05 11:45 Order name: NT PRO-BNP; Complete Time: 12:49 [facility] 05/05 11:45 Order name: PT-INR; Complete Time: 12:27 [facility] 05/05 11:45 Order name: Troponin HS; Complete Time: 12:49 [facility] 05/05 11:45 Order name: Lipase; Complete Time: 12:49 [facility] 05/05 11:45 Order name: Urinalysis w/ reflexes; Complete Time: 12:27 [facility] 05/05 12:51 Order name: Wound Culture [facility] 05/05 11:45 Order name: XRAY Chest (1 view) [facility] 05/05 11:45 Order name: CT Abd/Pelvis - IV Contrast Only [facility] 05/05 11:45 Order name: EKG; Complete Time: 11:46 [facility] 05/05 11:45 Order name: Cardiac monitoring; Complete Time: 12:15 [facility] 05/05 11:45 Order name: EKG - Nurse/Tech; Complete Time: 12:15 [facility] 05/05 11:45 Order name: IV Saline Lock; Complete Time: 12:15 [facility] 05/05 11:45 Order name: Labs collected and sent; Complete Time: 14:16 [facility] 05/05 11:45 Order name: O2 Per Protocol; Complete Time: 12:15 [facility] 05/05 11:45 Order name: O2 Sat Monitoring; Complete Time: 12:15 [facility] 05/05 12:50 Order name: Misc. Order: suture set up , 1/4 inch iodoform gauze to bedside, iodine, stan saline too; Complete Time: 14:05/05 14:23 Order name: Wound dressing; Complete Time: 14:24 stan EC:23 Rate is 57 beats/min. Rhythm is regular. QRS [place] is Normal. PA interval is normal. QRS stan interval is normal. QT interval is normal. No Q waves. T waves are Normal. No ST changes noted. Clinical impression: NSR w/ Non-specific ST/T Changes and No evidence of ischemia. Interpreted by me. Reviewed by me. Administered Medications: 14:16 Not Given (Physician Discretion): ns 0.9% 1000 ml IV at 1 bolus Per protocol; 1000 mL aa5 bolus 14:40 Drug: Trimethoprim-Sulfamethoxazole PO (160 mg-800 mg (DS) 1 tablet PO once Route: PO; aa5 16:00 Follow up: Response: No adverse reaction aa5 14:40 Drug: Cephalexin PO 500 mg PO once Route: PO; aa5 16:00 Follow up: Response: No adverse reaction aa5 Disposition Summary: 05/05/24 14:19 Discharge Ordered Notes: Location: Home [facility] Problem: new stan Symptoms: have improved stan Condition: Stable stan Diagnosis - Disruption of wound, unspecified, initial encounter - cleaned and repacked left stan buttock wound, right foot dorsum and left lower ext Followup: stan - With: Private Physician - When: 2 - 3 days - Reason: Recheck today's complaints, Continuance of care, Re-evaluation by your physician Followup: stan - With: Alex Weeks MD - When: 2 - 3 days - Reason: Recheck today's complaints, Re-evaluation by your physician Discharge Instructions: - Discharge Summary Sheet stan - Delayed Wound Closure stan - Wound Care, Adult stan - Wound Packing stan Forms: - Medication Reconciliation Form stan - Antibiotic Education stan - Prescription Opioid Use stan - Patient Portal Instructions stan - Leadership Thank You Letter [facility] Prescriptions: - Cephalexin 500 mg Oral capsule - take 1 capsule ORAL route every 6 hours for 7 days; 28 capsule; Refills: 0, [facility] Product Selection Permitted - Silvadene 1 % Topical cream - Apply to affected area 1 application TOPICAL route every 12 hours; 50 gram; [facility] Refills: 0, Product Selection Permitted - Bactrim DS 800-160 mg Oral Tablet - take 1 tablet ORAL route every 12 hours for 7 days; 14 tablet; Refills: 0, [facility] Product Selection Permitted Signatures: Dispatcher [employer] EDMS Claernce Reddy MD MD cha Calderon, Audri, RN RN aa5 Ibeth Ball RN RN ss Corrections: (The following items were deleted from the chart) 11:46 11:45 BASIC METABOLIC PANEL+C.LAB.BRZ ordered. EDMS EDMS 11:46 11:45 CBC+H.LAB.BRZ ordered. EDMS EDMS 11:46 11:45 HEPATIC FUNCTION+C.LAB.BRZ ordered. EDMS EDMS 11:46 11:45 MAGNESIUM+C.LAB.BRZ ordered. EDMS EDMS 11:46 11:45 PROBNP+C.LAB.BRZ ordered. EDMS EDMS 11:46 11:45 PROTIME (+INR)+COAG.LAB.BRZ ordered. EDMS EDMS 11:46 11:45 Troponin High Sensitivity+C.LAB.BRZ ordered. EDMS EDMS 11:46 11:45 LIPASE+C.LAB.BRZ ordered. EDMS EDMS 11:46 11:45 Urinalysis+U.LAB.BRZ ordered. EDMS EDMS
[2024-05-05] MEDS ORDERED: CEPHALEXIN 250 MG CAP ONE (14:26)
[2024-05-05] MEDS ORDERED: SMZ./TMP. 800/160 MG TABLET ONE (14:26)
--- NOTE | 2024-05-05 14:31 | RAD REPORT ---
[facility]59 [facility] CLINICAL HISTORY: ABDOMINAL DISTENTION COMPARISON: Chest Single View dated 04/06/2024; Chest Single View dated 02/19/2024 TECHNIQUE: Portable AP view of the chest. FINDINGS: The lungs are clear. No pneumothorax or effusion. The cardiomediastinal contours are unre markable. IMPRESSION: No acute cardiopulmonary process.
[2024-05-05 16:26] VITALS: BP 120/56; TEMP 97.9; O2SAT 99
--- NOTE | 2024-05-09 15:08 | EKG ---
Test Date: 2024-05-05 Test Time: 12:12:07 Sr. Manager: MEASUREMENT RESULTS: Intervals: Rate: 57 MO: 154 QRSD: 82 QT: 428 QTc: 416 [place]: P: 62 MO: 154 QRS: -17 T: 5 INTERPRETIVE STATEMENTS: Sinus bradycardia Otherwise normal ECG Compared to ECG 04/12/2024 21:59:55 Sinus rhythm no longer present Sinus arrhythmia no longer present Right-axis deviation no longer present Myocardial infarct finding no longer present Electronically Signed On 05-09-24 14:55:45 CDT by Michael Urrutia
== END 2024-05-05 16:18 | disposition home or self-care (01) ==
LOC: ER 11:39
DX: T81.30XA Disruption of wound, unspecified, initial encounter (principal)
CPT/HCPCS: 93005; 87070; 85025; 80048; 36415; 83735; 87205; 85610; 80076; 87077; 87186; 81003; 84484; 83690; 83880; 74177; 71045; 99285; Q9967; J7030

== ENCOUNTER 2024-08-17 15:50 | Inpatient (IN) | payer OTHER ==
--- OUTSIDE RECORDS SUMMARY | 2024-08-17 15:58 | XMS REPORT | Continuity of Care Document ---
Author Name Unknown Address [address] [facility] [address] [place] [address] [facility] thconnect Address [address] [facility] [address] [place] [address] Care Team Providers Care Director Media Name Role Phone Pcp, Patient Does Not Have A Primary Care Physic flaquito Martell Fallon RN Attending Clinician Unavail able FLORENTIN PALACIO Attending Clinician Unavailable Juno Snyder Attending Clinician [phone] Raj Ott DO Attending Clinician [phone] Florentin Palacio MD Attending Clinician [phone] Benja Pang MD Attending Clinician + [phone] Azar Solomon CRNA Attending Clinician + [phone] MULUGETA PALMA Attending Clinician Unavailable MULUGETA PALMA Attending Clinician Unavailable Mulugeta Palma MD Attending Clinician [phone] Juno HWANG Attending Clinician Unavailable Juno HWANG Attending Clinician Unavailable VICENTE CALDERA Attending Clinician Unavailable VICENTE CALDERA Attending Clinician Unavailable Vicente Zaldivar Attending Clinician [phone] ZO GREEN Attending Clinician Unavailab Zo Rizzo DO Attending Clinician [phone] Doctor Unassigned, [employer] Attending Clinician Destiny De Jesus Attending Clinician NANDO HAGAN Attending Clinician Unavailable NANDO HAGAN Attending Clinician Unavailable Nando Hagan MD Attending Clinician + [phone] JOHNNY TEE Attending Clinician Unavailable Randal CARMONA, Johnny Attending Clinician + [phone] KVNG FRANK Attending Clinician Unavaila miguel ángel Frank TRANSPLANT REGISTERED NURSE, Kvng Johnson Attending Clinician [phone] Nargis Moore RN Attending Clinician Unavaila Destiny Zamudio Attending Clinician + [phone] BALJIT GAYLE Attending Clinician Unavailable BALJIT GAYLE Attending Clinician Unavailable DL MILLARD Attending Clinician Unavailable Dl Millard MD Attending Clinician + DAVID PAUL Attending Clinician Unavailable David Paul DO Attending Clinician + TARA IRELAND Attending Clinician Unavailable Tara Ireland MD Attending Clinician +[phone] DESTINY MULLER Attending Clinician Unavailable Zo Green DO Attending Clinician +[phone] SILAS ANDERSEN Attending Clinician Unavailable SILAS ANDERSEN Attending Clinician Unavailable JACKIE IDAZ Attending Clinician Unavailab Jackie Moore DO Attending Clinician +[phone] Lorene Stein Attending Clinician [phone] Tl Aranda MD Attending Clinician + [phone] TL ARANDA Attending Clinician Unavailable Georgina Garcia RN Attending Clinician Unava ilable Doctor Unassigned, [employer] Attending Clinician U navailable Provider, [facility] Attending Clinician Un available Lesli Kasper Attending Clinician [phone] Pob, 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 Attending Clinician UnavailNIMISHA Haywood Attending Clinician Unavail able FRANK QUIROZ Attending Clinician Unavailable Darrell Maxwell MD Attending Clinician [phone] Yossi Siddiqi Attending Clinician +[phone] YOSSI PRASAD Attending Clinician Unavailable Debra Friedman RD Attending Clinician [phone] DEBRA FRIEDMAN Attending Clinician Unavailable DARRELL BECKFORD Attending Clinician Darrell Haley MD Attending Clinician +- [phone] Chelle Fernandez MD Attending Clinician +[phone] CHELLE FERNANDEZ Attending Clinician Unavailable Markus OSPINA, Natividad Xiong Attending Clinician Glo Way MD Attending Clinician [phone] GLO FINN Attending Clinician Unavailable Kendall Campa MD Attending Clinician +[phone] JOCELYN GREER Attending Clinician UnavailDARRELL Khalil III Attending Clinician UnavailMARIAMA Castro Attending Clinician UnavailNATIVIDAD Brantley Attending Clinician Unavailab RAJ Jordan Admitting Clinician Unavailable Raj Ott DO Admitting Clinician +[phone] Juno HWANG Admitting Clinician Unavailable VICENTE CALDERA Admitting Clinician Unavailable ZO GREEN Admitting Clinician Unavailab NANDO Fortune Admitting Clinician Unavailable JOHNNY TEE Admitting Clinician Unavailable KVNG FRANK Admitting Clinician UnavailBLAJIT Underwood Admitting Clinician Unavailable DL MILLARD Admitting Clinician Unavailable TARA IRELAND Admitting Clinician Unavailable DESTINY MULLER Admitting Clinician Unavailable CHELLE FERNANDEZ Admitting Clinician Unavailable TL ARANDA Admitting Clinician Unavailable Glo Finn MD Admitting Clinician [phone] LGO FINN Admitting Clinician Unavailable Payers Payer Name Policy Type Policy Number Effective Date Expirati on Date Source [facility] (MEDICARE REPLACEMENT HMO) [id number] 00:00:00 MEDICARE PART A \\T\\ B [id number] 2018 00:00:00 2019 00:00:00 COMMERCIAL NON-CONTRACT GENERIC [id number] 2018 00:00:00 2019 00:00:00 Problems Condition Name Condition Details Condition Category Status Onset Date Resolution Date Last Treatment Date Treating Clinician Comments Source Bacteremia Bacteremia Disease Active 06-23 00:00: 00 [facility] Balance problem Balance problem Disease Active 2024-0 7-24 00:00: 00 [facility] Omental infarction Omental infarction Disease Active 3-09 00:00: 00 [facility] Psoriasifo rm dermatitis Psoriasifo rm dermatitis Disease Active 8-18 00:00: 00 [facility] Need for 23-polyval ent pneumococc al polysaccha ride vaccine Need for 23-polyval ent pneumococc al polysaccha ride vaccine Disease Active 3-28 00:00: 00 [facility] Cellulitis of foot, left Cellulitis of foot, left Disease Active 5-21 00:00: 00 [facility] Edema of both legs Edema of both legs Disease Active 4 00:00: 00 [facility] Erectile dysfunctio n, unspecifie d erectile dysfunctio n type Erectile dysfunctio n, unspecifie d erectile dysfunctio n type Disease Active 4 00:00: 00 [facility] Essential hypertensi on Essential hypertensi on Disease Active 4 00:00: 00 [facility] Edema of both legs Edema of both legs Disease Active 4 00:00: 00 [facility] Erectile dysfunctio n, unspecifie d erectile dysfunctio n type Erectile dysfunctio n, unspecifie d erectile dysfunctio n type Disease Active 407 00:00: 00 [facility] Acute midline low back pain without sciatica Acute midline low back pain without sciatica Disease Active 2- 00:00: 00 [facility] Medicare annual wellness visit, subsequent Medicare annual wellness visit, subsequent Disease Active 1- 00:00: 00 Overview: Carter g of this note might be different from the original. Added automatic ally from request for surgery [id number] [facility] Need for hepatitis C screening test Need for hepatitis C screening test Disease Active 2018-11 00:00: 00 [facility] Homeless Homeless Disease Active 2018-11 00:00: 00 [facility] Lesion of matthew Lesion of matthew Disease Active 2018-11 00:00: 00 [facility] Dyslipidem ia Dyslipidem ia Disease Active 2018-11 00:00: 00 [facility] Encounter for screening colonoscop y for non-high-r isk patient Encounter for screening colonoscop y for non-high-r isk patient Disease Active 2018-11 00:00: 00 [facility] 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 Disease Active 2018-11 00:00: 00 [facility] 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) Disease Active 2018-11 00:00: 00 [facility] 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) Disease Active 2018-11 00:00: 00 [facility] Erectile dysfunctio n due to type 2 diabetes mellitus Erectile dysfunctio n due to type 2 diabetes mellitus Disease Active 2018-11 00:00: 00 [facility] Obesity (BMI 30-39.9) Obesity (BMI 30-39.9) Disease Active 03-17 00:00: 00 [facility] Upper respirator y tract infection, unspecifie d type Upper respirator y tract infection, unspecifie d type Disease Resolve d 2018-11 00:00: 00 2021-07-15 00:00:00 2021-07-15 15:36:45 [facility] Allergies, Adverse Reactions, Alerts Allergy Name Allergy Type Status Severity Reaction(s) Onset Date Inactive Date Treating Clinician Comments Source NO KNOWN ALLERGIE S Drug Class Active [facility] Family History Family Member Diagnosis Comments Start Date Stop Date Sourc e Natural father Cancer Unive [facility] Natural mother Cancer Unive [facility] Social History Social Habit Start Date Stop Date Quantity Comments Source [facility] intake 2024-07-02 00:00:00 2024-07-02 00:00:00 Current non-drinker of alcohol (finding) [facility] Alcohol intake 2024-02-11 00:00:00 2024-02-11 00:00:00 Current non-drinker of alcohol (finding) [facility] Exposure to SARS-CoV-2 (event) 2021-06-10 00:00:00 2021-07-10 10:13:00 Not sure [facility] History of Social function 2021-07-10 00:00:00 2021-07-10 00:00:00 [facility] Tobacco use and exposure 2019-01-14 00:00:00 2019-01-14 00:00:00 Smokeless tobacco non-user [facility] Sex assigned at 1955 00:00:00 1955 00:00:00 [facility] Smoking Status Start Date Stop Date Source Never smoked tobacco [facility] Medications Ordered Medication Name Filled Medication Name Start Date Stop Date Current Medication? Ordering Clinician Indication Dosage Frequency Signature (SIG) Comments Components Source insulin NPH (HUMULIN N NPH U-100 INSULIN) 100 unit/mL injection 07-01 00:00: 00 08-01 04:59 :00 Yes [id number] 20U inject 20 Units under the skin 2 (two) times daily before breakfast and dinner for 30 days. [facility] amoxicillin -clavulanat e 875-125 mg per tablet 07-01 00:00: 00 07-23 04:59 :00 Yes [id number] 1{tbl} Take 1 tablet by mouth every 12 (twelve) hours for 21 days. [facility] amoxicillin -clavulanat e (AUGMENTIN) 875-125 mg per tablet 1 tablet 06-28 19:30: 00 07-02 12:59 :00 Yes 1{tbl} 1 tablet, Oral, Q12H, 8 doses, First dose on Thu06/28/24 at 1430, Last dose on Thu07/01/24 at 2000, Routine, Reason for Anti-Infec tive: Documented Infection, Documented Infection Site: Urine, Duration of Therapy: 7 days [facility] rifAMPin (RIFADIN) capsule 300 mg 06-28 17:15: 00 06-28 19:42 :55 No 300mg 300 mg, Oral, Q8H, First dose on Thu06/28/24 at 1215, Until Discontinu ed, RICHARD, Reason for Anti-Infec tive: Documented Infection, Documented Infection Site: Blood, Duration of Therapy: 7 days [facility] cefTRIAXone (ROCEPHIN) 1,000 mg in NaCl 0.9% (NS) 100 mL MINI-BAG 06-28 03:00: 00 06-28 19:17 :32 No 1000mg 1,000 mg, IV Piggyback, Q24H ABX, 7 doses, First dose on Thu06/27/24 at 2200, Last dose on Thu07/03/24 at 2200, Administer over 30 Minutes, 100 mL, Reason for Anti-Infec tive: Documented Infection, Documented Infection Site: Urine, Duration of Therapy: 7 days [facility] NaCl 0.9% (NS) IV infusion 1,000 mL 06-27 19:00: 00 06-29 06:11 :11 No 1000mL at 50 mL/hr, IV Infusion, CONTINUOUS , Starting on Thu06/27/24 at 1400, Until Thu06/29/24 at 0111, Routine, KVO [facility] Saline Bubble Study 06-27 18:24: 13 Yes [id number] 6mL 6 mL, Injection, SEE-INSTRU CTIONS, Starting on Thu06/27/24 at 1324, Until Discontinu ed, Routine [facility] vancomycin (VANCOCIN) 1,000 mg in NaCl 0.9% (NS) 250 mL VIAL-MATE IV piggyback 06-27 17:00: 00 07-04 16:59 :00 Yes 1000mg 1,000 mg, IV Piggyback, Q12H ABX, 14 doses, First dose on Thu06/27/24 at 1200, Last dose on Thu07/04/24 at 0000, Administer over 60 Minutes, 250 mL, Reason for Anti-Infec tive: Documented Infection, Documented Infection Site: Blood, Duration of Therapy: 7 days [facility] NaCl 0.9% (NS) injection 10 mL 06-27 15:11: 58 Yes 10mL 10 mL, Slow IV Push, PRN, Starting on Thu06/27/24 at 1011, Until Discontinu ed, Routine, line maintenanc e [facility] lidocaine 1% (PF) (XYLOCAINE) injection 5 mL 06-27 15:11: 58 06-27 15:45 :00 No 5mL 5 mL, Subcutaneo us, PRN, 1 dose, Starting on Thu06/27/24 at 1011, Until Thu06/27/24 at 1045, Routine, Local anesthesia [facility] magnesium sulfate in D5W 1 gram/100 mL RTU IV Piggyback 1 g 06-26 15:15: 00 06-26 16:55 :00 No 1g 1 g, IV Piggyback, ONCE, 1 dose, On [place] 06/26/24 at 1015, Administer over 60 Minutes, 100 mL [facility] lisinopriL (PRINIVIL,Z ESTRIL) tablet 20 mg 06-26 13:00: 00 Yes 20mg 20 mg, Oral, BID, First dose (after last modificati on) on [place] 06/26/24 at 0800, Until Discontinu ed, Routine [facility] hydralAZINE (APRESOLINE ) injection 10 mg 06-26 12:45: 32 Yes 10mg 10 mg, Slow IV Push, Q4HPRN, Starting on [place] 06/26/24 at 0745, Until Discontinu ed, Routine, DBP=>100; SBP=>160 [facility] lisinopriL (PRINIVIL,Z ESTRIL) tablet 20 mg 06-25 14:00: 00 06-26 12:45 :20 No 20mg 20 mg, Oral, DAILY, First dose (after last modificati on) on Thu06/25/24 at 0900, Until Discontinu ed, Routine [facility] atorvastati n (LIPITOR) tablet 40 mg 06-25 02:00: 00 Yes 40mg 40 mg, Oral, QHS, First dose on Thu06/24/24 at 2100, Until Discontinu ed [facility] lisinopri[facility] (PRINIVIL,Z ESTRIL) tablet 10 mg 06-24 20:45: 00 06-25 00:21 :41 No 10mg 10 mg, Oral, DAILY, First dose on Thu06/24/24 at 1545, Until Discontinu ed, Routine [facility] vancomycin 1,250 mg in NaCl 0.9% (NS) 250 mL VIAL-MATE IV piggyback 06-24 15:30: 00 06-27 14:18 :02 No 1250mg 1,250 mg, IV Piggyback, Q12H ABX, First dose on Thu06/24/24 at 1030, Until Discontinu ed, Administer over 90 Minutes, 250 mL, Reason for Anti-Infec tive: Documented Infection, Documented Infection Site: Blood, Duration of Therapy: 7 days [facility] furosemide (LASIX) tablet 20 mg 06-24 14:00: 00 Yes 20mg 20 mg, Oral, DAILY, First dose on Thu06/24/24 at 0900, Until Discontinu ed, Routine [facility] aspirin EC tablet 81 mg 06-24 14:00: 00 Yes 81mg 81 mg, Oral, DAILY, First dose on Thu06/24/24 at 0900, Until Discontinu ed, Routine [facility] gabapentin (NEURONTIN) capsule 100 mg 06-24 13:00: 00 Yes 100mg 100 mg, Oral, TID, First dose on Thu06/24/24 at 0800, Until Discontinu ed, Routine [facility] insulin NPH (HUMULIN N) injection 20 Units 06-24 12:30: 00 Yes 20U 20 Units, Subcutaneo us, BIDAC, First dose on Thu06/24/24 at 0730, Until Discontinu ed, Routine [facility] tiZANidine (ZANAFLEX) tablet 4 mg 06-24 12:28: 17 Yes 4mg [facility] ondansetron (ZOFRAN (PF)) injection 4 mg 06-24 09:32: 26 Yes 4mg 4 mg, Slow IV Push, Q6HPRN, Nausea and Vomiting (N/V), Starting on Thu06/24/24 at 0432, Doses of ondansetro n 16 mg and above need to be administer ed via IV piggyback. For Dose >=24mg ECG monitoring is advisable. [facility] enoxaparin (LOVENOX) injection 40 mg 06-23 22:00: 00 Yes 40mg 40 mg, Subcutaneo us, DAILY, First dose on Thu06/23/24 at 1700, Until Discontinu ed, Routine [facility] Sliding Scale Insulin - Lispro (HumaLOG) 06-23 22:00: 00 Yes Subcutaneo us, TID MEALS+HS, First dose on Thu06/23/24 at 1700, Until Discontinu ed, Routine [facility] cefTRIAXone (ROCEPHIN) 1,000 mg in NaCl 0.9% (NS) 100 mL MINI-BAG 06-23 20:00: 00 06-24 12:26 :52 No 1000mg 1,000 mg, IV Piggyback, Q24H ABX, 5 doses, First dose on Thu06/23/24 at 1500, Last dose on Thu06/27/24 at 1500, Administer over 30 Minutes, 100 mL, Reason for Anti-Infec tive: Empiric Therapy for Suspected Infection, Empiric Therapy Site: Urine, Duration of therapy: 5 days [facility] acetaminoph en (TYLENOL) tablet 650 mg 06-23 19:05: 37 Yes 650mg 650 mg, Oral, Q6HPRN, Starting on Thu06/23/24 at 1405, Until Discontinu ed, Routine, Pain (scale 1-3) [facility] glucagon (GLUCAGEN DIAGNOSTIC KIT) injection 1 mg 06-23 19:03: 24 Yes 1mg 1 mg, Intramuscu lar, PRN, Starting on Thu06/23/24 at 1403, Until Discontinu ed, RICHARD, Blood Glucose < or = 70 mg/dL and patient is NPO, unable to swallow or has mental changes. [facility] dextrose 50 % in water (D50W) injection 25 mL 06-23 19:03: 24 Yes 25mL 25 mL, Slow IV Push, PRN, Starting on Sheree 06/23/24 at 1403, Until Discontinu ed, RICHARD, Blood Glucose < or = 70 mg/dL and patient is NPO, unable to swallow or has mental status changes. [facility] vancomycin (VANCOCIN) 1,500 mg in NaCl 0.9% (NS) 500 mL VIAL-MATE IV piggyback 06-23 17:45: 00 06-23 19:19 :00 No 15mg/kg 1,500 mg (rounded from 1,374 mg = 15 mg/kg ?91.6 kg), IV Piggyback, ONCE, 1 dose, On Sheree 06/23/24 at 1245, Administer over 90 Minutes, 500 mL, Reason for Anti-Infec tive: Documented Infection, Documented Infection Site: Blood, Duration of Therapy: Once (ED) [facility] cephALEXin (KEFLEX) capsule 1,000 mg 06-20 17:00: 00 06-20 17:01 :00 No 1000mg 1,000 mg, Oral, ONCE, 1 dose, On Thu06/20/24 at 1200, RICHARD, Reason for Anti-Infec tive: Documented Infection, Documented Infection Site: Skin / Soft Tissue, Duration of Therapy: Once (ED) [facility] neomycin-ba citracin-po lymyxin 3.5mg-400 unit- 5,000 unit/gram topical ointment 06-20 00:00: 00 Yes [id number] Apply to area(s) 4 (four) times daily. [facility] cephALEXin 500 mg capsule 06-20 00:00: 00 07-01 00:00 :00 No [id number] 500mg Take 1 capsule by mouth 4 (four) times daily. [facility] ketorolac (TORADOL) injection 15 mg 06-19 19:30: 00 06-19 18:25 :00 No 15mg 15 mg, Slow IV Push, ONCE, 1 dose, On Thu06/19/24 at 1430, RICHARD [facility] cefTRIAXone (ROCEPHIN) 1,000 mg in NaCl 0.9% (NS) 100 mL MINI-BAG 06-19 19:00: 00 06-19 19:49 :00 No 1000mg 1,000 mg, IV Piggyback, ONCE, 1 dose, On Thu06/19/24 at 1400, Administer over 30 Minutes, 100 mL, Reason for Anti-Infec tive: Empiric Therapy for Suspected Infection, Empiric Therapy Site: Urine, Duration of therapy: Once (ED) [facility] mupirocin 2 % ointment 06-19 00:00: 00 Yes [id number] Apply to area(s) 3 (three) times daily. [facility] furosemide (LASIX) tablet 40 mg 06-17 00:30: 00 06-16 23:47 :00 No 40mg 40 mg, Oral, ONCE, 1 dose, On Thu06/16/24 at 1930, Routine [facility] acetaminoph en (TYLENOL) tablet 1,000 mg 06-16 23:45: 00 06-16 23:47 :00 No 1000mg 1,000 mg, Oral, ONCE NOW, 1 dose, On Thu06/16/24 at 1845, Routine [facility] insulin regular human (HUMULIN R) injection 5 Units 04-06 10:30: 00 04-06 09:38 :00 No 5U 5 Units, Subcutaneo us, ONCE, 1 dose, On Thu04/06/24 at 0530, Routine, Indication for insulin: Hyperglyce danae [facility] insulin regular human (HUMULIN R) injection 5 Units 15 09:30: 00 04-06 08:38 :00 No 5U 5 Units, Subcutaneo us, ONCE, 1 dose, On Thu04/06/24 at 0430, Routine, Indication for insulin: Hyperglyce [facility] ergocalcife rol (vitamin d2) (CALCIFEROL ) capsule 50,000 Units 04-06 09:00: 00 04-06 08:33 :00 No [id number] 50,000 Units, Oral, ONCE NOW, 1 dose, On Thu04/06/24 at 0400, Routine [facility] magnesium sulfate in water 2 gram/50 mL (4 %) infusion 2 g 04-06 08:45: 00 04-06 09:30 :00 No 2g 2 g, IV Piggyback, Administer over 60 Minutes, ONCE, 1 dose, On Thu04/06/24 at 0345, [facility] thiamine (VITAMIN B1) injection 100 mg 04-06 08:00: 00 04-06 08:32 :00 No 100mg 100 mg, Slow IV Push, ONCE, 1 dose, On Thu04/06/24 at 0300, [facility] ceFAZolin (ANCEF) 1,000 mg in NaCl 0.9% (NS) 100 mL MINI-BAG 04-06 07:45: 00 04-06 07:30 :00 No 1000mg 1,000 mg, Intravenou s, ONCE, 1 dose, On Thu04/06/24 at 0245, Administer over 30 Minutes, 100 mL, Reason for Anti-Infec tive: Documented Infection, Documented Infection Site: Skin / Soft Tissue, Duration of Therapy: Once (ED) [facility] insulin regular human (HUMULIN R) injection 10 Units 04-06 07:30: 00 04-06 07:34 :00 No 10U 10 Units, Slow IV Push, ONCE, 1 dose, On Thu04/06/24 at 0230, STAT, Indication for insulin: Hyperglyce [facility] furosemide (LASIX) injection 40 mg 04-06 07:00: 00 04-06 06:59 :00 No 40mg 40 mg, IV Push, ONCE, 1 dose, On Thu04/06/24 at 0200, [facility] gabapentin (NEURONTIN) capsule 300 mg 04-06 07:00: 00 04-06 06:57 :00 No 300mg 300 mg, Oral, ONCE, 1 dose, On Thu04/06/24 at 0200, [facility] gabapentin (NEURONTIN) 100 mg capsule 04-06 00:00: 00 Yes [id number] 100mg Take 1 capsule by mouth in the morning and 1 capsule at noon and 1 capsule in the evening. [facility] furosemide 20 mg tablet 04-06 00:00: 00 07-01 00:00 :00 No [id number] 20mg Take 1 tablet by mouth every morning. [facility] cephALEXin 500 mg capsule 04-06 00:00: 00 07-01 00:00 :00 No [id number] 500mg Take 1 capsule by mouth 4 (four) times daily. [facility] mupirocin 2 % ointment 04-06 00:00: 00 07-01 00:00 :00 No [id number] Apply to area(s) 3 (three) times daily. [facility] NaCl 0.9% (NS) bolus infusion 500 mL 04-03 21:15: 00 04-03 22:05 :00 No 500mL at 999 mL/hr, 500 mL, IV Infusion, ONCE, 1 dose, On Thu04/03/24 at 1615, [facility] magnesium sulfate in water 2 gram/50 mL (4 %) infusion 2 g 04-03 17:45: 00 04-03 19:00 :00 No 2g 2 g, IV Piggyback, Administer over 60 Minutes, ONCE, 1 dose, On Thu04/03/24 at 1245, Routine [facility] NaCl 0.9% (NS) bolus infusion 500 mL 04-03 16:00: 00 04-03 16:30 :00 No 500mL at 999 mL/hr, 500 mL, IV Infusion, ONCE, 1 dose, On Thu04/03/24 at 1100, [facility] acetaminoph en (TYLENOL) tablet 650 mg 04-03 15:15: 00 04-03 15:46 :00 No 650mg 650 mg, Oral, ONCE, 1 dose, On Thu04/03/24 at 1015, [facility] piperacilli n-tazobacta m (ZOSYN) 3.375 g in NaCl 0.9% (NS) 100 mL VIAL-MATE 04-03 15:15: 00 04-03 16:19 :00 No 3.375g 3.375 g, IV Piggyback, ONCE, 1 dose, On Thu04/03/24 at 1015, Administer over 30 Minutes, 100 mL, Reason for Anti-Infec tive: Documented Infection, Documented Infection Site: Skin / Soft Tissue, Duration of Therapy: Once (ED) [facility] doxycycline hyclate 100 mg capsule 04-03 00:00: 00 07-01 00:00 :00 No [id number] 100mg Take 1 capsule by mouth in the morning and 1 capsule in the evening. [facility] insulin regular human (HUMULIN R) injection 10 Units 03-31 21:45: 00 03-31 23:18 :00 No 10U 10 Units, Slow IV Push, ONCE, 1 dose, On Thu03/31/24 at 1645, STAT, Indication for insulin: Hyperglyce danae [facility] acetaminoph en (TYLENOL) tablet 650 mg 03-29 21:15: 00 03-29 22:29 :00 No 650mg 650 mg, Oral, ONCE, 1 dose, On Thu03/29/24 at 1615, [facility] NaCl 0.9% (NS) bolus infusion 500 mL 03-22 16:30: 00 03-22 21:50 :00 No 500mL at 999 mL/hr, 500 mL, IV Infusion, ONCE, 1 dose, On Thu03/22/24 at 1130, [facility] NaCl 0.9% (NS) bolus infusion 1,000 mL 03-12 03:30: 00 03-12 04:43 :00 No 1000mL at 999 mL/hr, 1,000 mL, IV Infusion, ONCE, 1 dose, On Thu03/11/24 at 2230, STAT [facility] insulin regular human (HUMULIN R) injection 10 Units 03-12 03:30: 00 03-12 02:40 :00 No 10U 10 Units, IV Push, ONCE, 1 dose, On Thu03/11/24 at 2230, RICHARD
In dication for insulin: Hyperglyce danae [facility] NaCl 0.9% (NS) bolus infusion 1,000 mL 03-12 02:45: 00 03-12 03:00 :00 No 1000mL at 999 mL/hr, 1,000 mL, IV Infusion, ONCE, 1 dose, On Thu03/11/24 at 2145, STAT [facility] meclizine (TRAVEL-EAS E (MECLIZINE) ) tablet 25 mg 02-09 17:15: 00 02-09 17:17 :00 No 25mg 25 mg, Oral, ONCE, 1 dose, On Thu02/10/24 at 1215, RICHARD [facility] ketorolac (TORADOL) injection 15 mg 02-08 20:00: 00 02-08 20:42 :00 No 15mg 15 mg, Intramuscu lar, ONCE, 1 dose, On Thu02/09/24 at 1500, Routine [facility] methocarbam oL (ROBAXIN) tablet 1,000 mg 02-08 19:15: 00 02-08 20:43 :00 No 1000mg 1,000 mg, Oral, ONCE, 1 dose, On Thu02/09/24 at 1415, RICHARD [facility] cyclobenzap rine (FLEXERIL) tablet 10 mg 02-05 15:30: 00 02-05 15:14 :00 No 10mg 10 mg, Oral, ONCE, 1 dose, On 02/06/24 at 1030, Routine [facility] cyclobenzap rine 10 mg tablet 2024-0 3-16 00:00: 00 02-11 04:59 :00 No [id number] 10mg Take 1 tablet by mouth in the morning and 1 tablet at noon and 1 tablet in the evening. Do all this for 15 doses. [facility] dicyclomine (BENTYL) tablet 20 mg 01-29 20:45: 00 01-29 20:51 :00 No 20mg 20 mg, Oral, ONCE, 1 dose, On 01/30/24 at 1445, RICHARD [facility] methocarbam oL (ROBAXIN) tablet 1,000 mg 01-29 19:15: 00 01-29 19:06 :00 No 1000mg 1,000 mg, Oral, ONCE, 1 dose, On 01/30/24 at 1315, RICHARD [facility] ketorolac (TORADOL) tablet 10 mg 01-29 17:45: 00 01-29 17:01 :00 No 10mg 10 mg, Oral, ONCE, 1 dose, On 01/30/24 at 1145, Routine [facility] tiZANidine 4 mg tablet 01-29 00:00: 00 Yes [id number] 4mg Take 1 tablet by mouth every 6 (six) hours as needed for Pain (scale 7-10). [facility] dicyclomine 20 mg tablet 01-29 00:00: 00 07-01 00:00 :00 No [id number] 20mg Take 1 tablet by mouth 4 (four) times daily as needed for Abdominal pain. [facility] ibuprofen (IBU) tablet 600 mg 01-15 03:30: 00 01-15 03:42 :00 No 600mg 600 mg, Oral, ONCE, 1 dose, On Sheree 01/14/24 at 2130, RICHARD [facility] methocarbam oL (ROBAXIN) tablet 750 mg 01-15 03:26: 00 01-15 03:42 :00 No 750mg 750 mg, Oral, ONCE NOW, 1 dose, On Sheree 01/14/24 at 2130, RICHARD [facility] LISINOPRIL- HYDROCHLORO THIAZIDE 10-12.5 mg per tablet - 00:00: 00 Yes [id number] Take 1 tablet by mouth once daily [facility] blood sugar diagnostic (TRUE METRIX GLUCOSE TEST STRIP) strip 2020-11 00:00: 00 Yes [id number] Monitor Blood Glucose daily [facility] simvastatin 40 mg tablet 2020-11 00:00: 00 Yes [id number] 40mg Take 1 tablet by mouth at bedtime. [facility] furosemide 20 mg tablet 2020-11 00:00: 00 Yes [id number] 20mg Take 1 tablet by mouth daily. [facility] lancets (TRUEPLUS LANCETS) 33 gauge Misc 2020-11 00:00: 00 Yes [id number] Monitor Blood Glucose daily [facility] Alcohol Swabs (BD SINGLE USE SWABS REGULAR) PadM 2020-11 00:00: 00 Yes [id number] Apply to area(s) daily. Monitor Blood Glucose daily [facility] SIMVASTATIN 40 mg tablet 2020-11 00:00: 00 Yes [id number] 40mg TAKE 1 TABLET BY MOUTH AT BEDTIME [facility] metFORMIN 1,000 mg tablet 07-10 00:00: 00 Yes [id number] 1000mg Take 1 tablet by mouth 2 (two) times daily with meals. [facility] furosemide 20 mg tablet 07-10 00:00: 00 Yes [id number] 20mg Take 1 tablet by mouth every Thursday, and Thursday in the evening. [facility] insulin NPH (HUMULIN N NPH U-100 INSULIN) 100 unit/mL injection 07-10 00:00: 00 07-01 00:00 :00 No [id number] INJECT 35 UNITS SUBCUTANEO USLY EVERY MORNING AND EVENING. Office visit needed for further refills. [facility] lisinopriL- hydrochloro thiazide 10-12.5 mg per tablet 07-10 00:00: 00 02-17 00:00 :00 No [id number] 1{tbl} Take 1 tablet by mouth daily. [facility] simvastatin (ZOCOR) 40 mg tablet 07-10 00:00: 00 10-04 00:00 :00 No [id number] 40mg Take 1 tablet by mouth at bedtime. [facility] insulin NPH (HUMULIN N NPH U-100 INSULIN) 100 unit/mL injection 06-19 00:00: 00 07-10 00:00 :00 No [id number] INJECT 35 UNITS SUBCUTANEO USLY EVERY MORNING AND EVENING. Office visit needed for further refills. [facility] HUMULIN N NPH U-100 INSULIN 100 unit/mL injection 05-21 00:00: 00 Yes [id number] INJECT 35 UNITS SUBCUTANEO USLY IN THE MORNING AND IN THE EVENING [facility] furosemide 20 mg tablet 02-15 00:00: 00 07-10 00:00 :00 No [id number] 20mg Take 1 tablet by mouth every Thursday, and Thursday in the evening. [facility] sildenafiL 50 mg tablet 02-14 00:00: 00 07-01 00:00 :00 No [id number] 50mg Take 1 tablet by mouth as needed (Erectile dysfunctio n). Take 50mg x 1, about 30 mins - 4 hours prior to sexual activity. [facility] insulin NPH (HUMULIN N NPH U-100 INSULIN) 100 unit/mL injection 02-14 00:00: 00 05-21 00:00 :00 No [id number] INJECT 35 UNITS SUBCUTANEO USLY IN THE MORNING AND IN THE EVENING [facility] HUMULIN N NPH U-100 INSULIN 100 unit/mL injection 02-10 00:00: 00 02-14 00:00 :00 No [id number] INJECT 35 UNITS SUBCUTANEO USLY IN THE MORNING AND IN THE EVENING [facility] Misc 02-06 00:00: 00 Yes [id number] E11.8: dispense Insulin Syringe 31 gauge brand covered by insurance. Monitor Blood [facility] at Home BID [facility] [place] 02-06 00:00: 00 07-01 00:00 :00 No [id number] E11.8: dispense Insulin Syringe 31 gauge brand covered by insurance. Monitor Blood Sugar at Home BID [facility] Insulin Syringe-Nee dle U-100 1 mL 27 gauge x 1/2" Syrg 3- 00:00: 00 Yes [id number] Use as directed [facility] Insulin Syringe-Nee dle U-100 1 mL 27 gauge x 1/2" Syrg 3- 00:00: 00 Yes [id number] Use as directed [facility] Insulin Syringe-Nee dle U-100 1 mL 27 gauge x 1/2" Syrg 3- 00:00: 00 Yes [id number] Use as directed [facility] Insulin [place], Disposable, (PHUC PEN NEEDLE) 32 gauge x 5/32" Ndle 3- 00:00: 00 Yes [id number] Use as directed [facility] Insulin [place], Disposable, (PHUC PEN NEEDLE) 32 gauge x 5/32" Ndle 3- 00:00: 00 Yes [id number] Use as directed [facility] Insulin [place], Disposable, (PHUC PEN NEEDLE) 32 gauge x 5/32" Ndle 3- 00:00: 00 Yes [id number] Use as directed [facility] potassium chloride 10 mEq CR tablet 07-09 00:00: 00 Yes [id number] 10meq Take 1 tablet by mouth every Thursday, and Thursday in the evening. [facility] aspirin 81 mg EC tablet 07-09 00:00: 00 Yes [id number] 81mg Take 1 tablet by mouth daily. [facility] Insulin [place], Disposable, (PHUC PEN NEEDLE) 32 gauge x 5/32" Ndle 07-09 00:00: 00 Yes [id number] Use as directed [facility] lisinopril 10 mg tablet 07-09 00:00: 07-10 00:00 :00 No [id number] 10mg Take 1 tablet by mouth daily. [facility] simvastatin (ZOCOR) 40 mg tablet 07-09 00:00: 07-10 00:00 :00 No [id number] 40mg Take 1 tablet by mouth at bedtime. [facility] metFORMIN 1,000 mg tablet 07-09 00:00: 07-10 00:00 :00 No [id number] 1000mg Take 1 tablet by mouth 2 (two) times daily with meals. [facility] furosemide 20 mg tablet 07-09 00:00: 00 02-14 00:00 :00 No [id number] 20mg Take 1 tablet by mouth every Thursday, and Thursday in the evening. [facility] insulin NPH 100 unit/mL injection 07-09 00:00: 00 02-10 00:00 :00 No [id number] 35U inject 35 Units under the skin every morning and evening. [facility] potassium chloride 10 mEq CR tablet 04-13 00:00: 07-09 00:00 :00 No [id number] 10meq Take 1 tablet by mouth every Thursday, and Thursday in the evening. [facility] furosemide 20 mg tablet 04-13 00:00: 07-09 00:00 :00 No [id number] 20mg Take 1 tablet by mouth every Thursday, and Thursday in the evening. [facility] doxycycline hyclate 100 mg tablet 04-12 00:00: 00 07-09 00:00 :00 No [id number] 100mg Take 1 tablet by mouth 2 (two) times daily. [facility] diph,pertus (acel),teta nus (ADACEL) injection 0.5 mL 4-20 14:00: 00 03-13 01:59 :00 No .5mL 0.5 mL, Intramuscu lar, ONCE, 1 dose, 03/12/20 at 0900, Routine [facility] clindamycin 300 mg capsule 03-12 00:00: 00 03-23 04:59 :00 No [id number] 300mg Take 1 capsule by mouth 4 (four) times daily for 10 days. [facility] sildenafil 50 mg tablet 02-27 00:00: 00 02-14 00:00 :00 No [id number] 50mg Take 1 tablet by mouth as needed (Erectile dysfunctio n). Take 50mg x 1, about 30 mins - 4 hours prior to sexual activity. [facility] metFORMIN 1,000 mg tablet 01-18 00:00: 00 07-09 00:00 :00 No [id number] 1000mg Take 1 tablet by mouth 2 (two) times daily with meals. [facility] ondansetron (ZOFRAN (PF)) injection 4 mg 12-30 17:29: 59 Yes 4mg 4 mg, Slow IV Push, PRN, 1 dose, Starting Thu12/30/19 at 1129, Until Discontinu ed, Routine, Nausea and Vomiting (N/V), PACU [facility] water for irrigation irrigation solution 12-30 16:20: 00 Yes PRN, Starting Thu12/30/19 at 1020, Until Discontinu ed, Routine, Intra-op [facility] simethicone (GAS RELIEF (SIMETHICON E)) 40 mg/0.6 mL drops 12-30 16:19: 00 Yes PRN, Starting Thu12/30/19 at 1019, Until Discontinu ed, Routine, Intra-op [facility] NaCl 0.9% (NS) IV infusion 1,000 mL 12-30 13:45: 00 Yes 1000mL at 42 mL/hr, IV Infusion, CONTINUOUS , Starting Thu12/30/19 at 0745, Until Discontinu ed, Routine, DSU Pre-op [facility] peg-electro lyte soln 236-22.74-6 .74 -5.86 gram solution 11-30 00:00: 00 07-01 00:00 :00 No Take as directed [facility] prednisoLON E acetate 1 % ophthalmic suspension drops 2018-11 00:00: 00 Yes [id number] 1[drp] Place 1 Drop in right eye 4 (four) times daily. [facility] ofloxacin (OCUFLOX) 0.3 % ophthalmic solution 2018-11 00:00: 00 Yes [id number] 1[drp] Place 1 Drop in right eye 3 (three) times daily. [facility] aspirin 81 mg EC tablet 2018-11 00:00: 00 07-09 00:00 :00 No [id number] 81mg Take 1 tablet by mouth daily. [facility] Insulin [place], Disposable, (PHUC PEN NEEDLE) 32 gauge x 5/32" Ndle 2018-11 00:00: 00 07-09 00:00 :00 No [id number] Use as directed [facility] lactobacill us comb no.10 (PROBIOTIC) 20 billion cell Cap 06-10 00:00: 00 07-09 00:00 :00 No [id number] 1{capsu le} Take 1 capsule by mouth 2 (two) times daily. [facility] simvastatin (ZOCOR) 40 mg tablet 05-30 00:00: 00 07-09 00:00 :00 No [id number] 40mg Take 1 tablet by mouth at bedtime. [facility] lisinopril 10 mg tablet 05-30 00:00: 00 07-09 00:00 :00 No [id number] 10mg Take 1 tablet by mouth daily. [facility] insulin NPH 100 unit/mL injection 05-30 00:00: 00 07-09 00:00 :00 No [id number] 35U inject 35 Units under the skin every morning and evening. [facility] metFORMIN 500 mg tablet 05-30 00:00: 00 01-18 00:00 :00 No [id number] 500mg Take 1 tablet by mouth 2 (two) times daily with meals. [facility] Immunizations Ordered Immunization Name Filled Immunization Name Date Status Comments Source TDAP Unknown Completed [facility] TDAP Unknown Completed [facility] TDAP Unknown Completed [facility] TDAP Unknown Completed [facility] TDAP Unknown Completed [facility] TDAP Unknown Completed [facility] TDAP Unknown Completed [facility] TDAP Unknown Completed [facility] TDAP Unknown Completed [facility] TDAP Unknown Completed [facility] TDAP Unknown Completed [facility] TDAP Unknown Completed [facility] TDAP Unknown Completed [facility] TDAP Unknown Completed [facility] Vital Signs Vital Name Observation Time Observation Value Comments S ource Systolic blood pressure 2024-07-01 21:13:00 118 mm[Hg] [facility] Diastolic blood pressure 2024-07-01 21:13:00 65 mm[Hg] [facility] Heart rate 2024-07-01 21:13:00 63 /min [facility] Body temperature 2024-07-01 21:13:00 36.44 Ginny [facility] Respiratory rate 2024-07-01 21:13:00 16 /min [facility] Oxygen saturation in Arterial blood by Pulse oximetry 2024-07-01 21:13:00 99 /min [facility] Body weight 2024-07-01 08:26:00 89.994 kg [facility] BMI 2024-07-01 08:26:00 28.47 kg/m2 [facility] Body height 2024-06-23 21:39:00 177.8 cm [facility] Systolic blood pressure 2024-06-20 17:47:00 165 mm[Hg] [facility] Diastolic blood pressure 2024-06-20 17:47:00 83 mm[Hg] [facility] Heart rate 2024-06-20 17:47:00 81 /min [facility] Body temperature 2024-06-20 17:47:00 37 Ginny [facility] Respiratory rate 2024-06-20 17:47:00 16 /min [facility] Oxygen saturation in Arterial blood by Pulse oximetry 2024-06-20 17:47:00 99 /min [facility] Body height 2024-06-20 15:58:00 177.8 cm [facility] Body weight 2024-06-20 15:58:00 91.627 kg [facility] BMI 2024-06-20 15:58:00 28.98 kg/m2 [facility] Systolic blood pressure 2024-06-19 21:30:00 138 mm[Hg] [facility] Diastolic blood pressure 2024-06-19 21:30:00 71 mm[Hg] [facility] Heart rate 2024-06-19 21:30:00 78 /min [facility] Respiratory rate 2024-06-19 21:30:00 17 /min [facility] Oxygen saturation in Arterial blood by Pulse oximetry 2024-06-19 21:30:00 95 /min [facility] Body temperature 2024-06-19 17:34:00 36.72 Ginny [facility] Body height 2024-06-19 17:34:00 177.8 cm [facility] Body weight 2024-06-19 17:34:00 99.791 kg [facility] BMI 2024-06-19 17:34:00 31.57 kg/m2 [facility] Heart rate 2024-06-17 00:43:00 70 /min [facility] Respiratory rate 2024-06-17 00:43:00 17 /min [facility] Oxygen saturation in Arterial blood by Pulse oximetry 2024-06-17 00:43:00 97 /min [facility] Systolic blood pressure 2024-06-17 00:42:00 132 mm[Hg] [facility] Diastolic blood pressure 2024-06-17 00:42:00 76 mm[Hg] [facility] Body temperature 2024-06-17 00:42:00 36.44 Ginny [facility] Body height 2024-06-16 23:12:00 177.8 cm [facility] Body weight 2024-06-16 23:12:00 99.791 kg [facility] BMI 2024-06-16 23:12:00 31.57 kg/m2 [facility] Heart rate 2024-06-16 04:09:00 62 /min [facility] 2024-06-16 04:09:00 36.83 Ginny [facility] Respiratory rate 2024-06-16 04:09:00 13 /min [facility] Oxygen saturation in Arterial blood by Pulse oximetry 2024-06-16 04:09:00 97 /min [facility] Systolic blood pressure 2024-06-16 04:00:00 157 mm[Hg] [facility] Diastolic blood pressure 2024-06-16 04:00:00 75 mm[Hg] [facility] Body height 2024-06-15 23:01:00 177.8 cm [facility] Body weight 2024-06-15 23:01:00 99.791 kg [facility] BMI 2024-06-15 23:01:00 31.57 kg/m2 [facility] Heart rate 2024-04-06 10:11:00 72 /min [facility] Body temperature 2024-04-06 10:11:00 36.89 Ginny [facility] Respiratory rate 2024-04-06 10:11:00 16 /min [facility] Oxygen saturation in Arterial blood by Pulse oximetry 2024-04-06 10:11:00 99 /min [facility] Systolic blood pressure 2024-04-06 10:00:00 130 mm[Hg] [facility] Diastolic blood pressure 2024-04-06 10:00:00 74 mm[Hg] [facility] Body height 2024-04-06 06:52:00 177.8 cm [facility] Body weight 2024-04-06 06:52:00 99.791 kg [facility] BMI 2024-04-06 06:52:00 31.57 kg/m2 [facility] Systolic blood pressure 2024-04-03 21:45:00 164 mm[Hg] [facility] Diastolic blood pressure 2024-04-03 21:45:00 85 mm[Hg] [facility] Heart rate 2024-04-03 21:45:00 88 /min [facility] Respiratory rate 2024-04-03 21:45:00 16 /min [facility] Oxygen saturation in Arterial blood by Pulse oximetry 2024-04-03 21:45:00 96 /min [facility] Body temperature 2024-04-03 14:41:00 36.5 Ginny [facility] Systolic blood pressure 2024-04-01 00:04:00 132 mm[Hg] [facility] Diastolic blood pressure 2024-04-01 00:04:00 73 mm[Hg] [facility] Heart rate 2024-04-01 00:04:00 76 /min [facility] Respiratory rate 2024-04-01 00:04:00 18 /min [facility] Oxygen saturation in Arterial blood by Pulse oximetry 2024-04-01 00:04:00 98 /min [facility] Body height 2024-03-31 23:15:00 177.8 cm [facility] Body temperature 2024-03-31 17:35:00 36.72 Ginny [facility] Body weight 2024-03-31 17:35:00 99.791 kg [facility] BMI 2024-03-31 17:35:00 31.57 kg/m2 [facility] Systolic blood pressure 2024-03-29 21:38:00 135 mm[Hg] [facility] Diastolic blood pressure 2024-03-29 21:38:00 74 mm[Hg] [facility] Heart rate 2024-03-29 21:38:00 66 /min [facility] Body temperature 2024-03-29 21:38:00 36.72 Ginny [facility] Respiratory rate 2024-03-29 21:38:00 18 /min [facility] Oxygen saturation in Arterial blood by Pulse oximetry 2024-03-29 21:38:00 99 /min [facility] Body weight 2024-03-29 19:47:00 99.791 kg [facility] BMI 2024-03-29 19:47:00 31.57 kg/m2 [facility] Systolic blood pressure 2024-03-22 21:30:00 175 mm[Hg] [facility] Diastolic blood pressure 2024-03-22 21:30:00 90 mm[Hg] [facility] Heart rate 2024-03-22 21:30:00 84 /min [facility] Respiratory rate 2024-03-22 21:30:00 16 /min [facility] Oxygen saturation in Arterial blood by Pulse oximetry 2024-03-22 21:30:00 100 /min [facility] Body temperature 2024-03-22 14:55:00 36.94 Ginny [facility] Systolic blood pressure 2024-03-12 04:00:00 155 mm[Hg] [facility] Diastolic blood pressure 2024-03-12 04:00:00 103 mm[Hg] [facility] Heart rate 2024-03-12 04:00:00 92 /min [facility] Respiratory rate 2024-03-12 04:00:00 18 /min [facility] Oxygen saturation in Arterial blood by Pulse oximetry 2024-03-12 04:00:00 98 /min [facility] Body temperature 2024-03-12 01:17:00 37.33 Ginny [facility] Body height 2024-03-12 01:17:00 177.8 cm [facility] Body weight 2024-03-12 01:17:00 99.791 kg [facility] BMI 2024-03-12 01:17:00 31.57 kg/m2 [facility] Systolic blood pressure 2024-02-10 19:50:00 158 mm[Hg] [facility] Diastolic blood pressure 2024-02-10 19:50:00 87 mm[Hg] [facility] Heart rate 2024-02-10 19:50:00 86 /min [facility] Respiratory rate 2024-02-10 19:50:00 18 /min [facility] Oxygen saturation in Arterial blood by Pulse oximetry 2024-02-10 19:50:00 96 /min [facility] Body temperature 2024-02-10 16:57:00 36.72 Ginny [facility] Body height 2024-02-10 16:57:00 177.8 cm [facility] Body weight 2024-02-10 16:57:00 99.791 kg [facility] BMI 2024-02-10 16:57:00 31.57 kg/m2 [facility] Systolic blood pressure 2024-02-09 22:00:00 143 mm[Hg] [facility] Diastolic blood pressure 2024-02-09 22:00:00 76 mm[Hg] [facility] Heart rate 2024-02-09 22:00:00 83 /min [facility] Respiratory rate 2024-02-09 22:00:00 16 /min [facility] Oxygen saturation in Arterial blood by Pulse oximetry 2024-02-09 22:00:00 100 /min [facility] Body temperature 2024-02-09 19:02:00 35.94 Ginny [facility] Body height 2024-02-09 19:02:00 177.8 cm [facility] Body weight 2024-02-09 19:02:00 99.791 kg [facility] BMI 2024-02-09 19:02:00 31.57 kg/m2 [facility] Systolic blood pressure 2024-02-06 14:26:00 163 mm[Hg] [facility] Diastolic blood pressure 2024-02-06 14:26:00 77 mm[Hg] [facility] Heart rate 2024-02-06 14:26:00 71 /min [facility] Body temperature 2024-02-06 14:26:00 36.61 Ginny [facility] Respiratory rate 2024-02-06 14:26:00 16 /min [facility] Body height 2024-02-06 14:26:00 165.1 cm [facility] Body weight 2024-02-06 14:26:00 99.791 kg [facility] BMI 2024-02-06 14:26:00 36.61 kg/m2 [facility] Oxygen saturation in Arterial blood by Pulse oximetry 2024-02-06 14:26:00 98 /min [facility] Systolic blood pressure 2024-01-30 16:05:00 150 mm[Hg] [facility] Diastolic blood pressure 2024-01-30 16:05:00 89 mm[Hg] [facility] Heart rate 2024-01-30 16:05:00 71 /min [facility] Body temperature 2024-01-30 16:05:00 37 Ginny [facility] Respiratory rate 2024-01-30 16:05:00 18 /min [facility] Body height 2024-01-30 16:05:00 177.8 cm [facility] Body weight 2024-01-30 16:05:00 100.699 kg [facility] BMI 2024-01-30 16:05:00 31.85 kg/m2 [facility] Oxygen saturation in Arterial blood by Pulse oximetry 2024-01-30 16:05:00 99 /min [facility] Systolic blood pressure 2024-01-15 03:18:00 150 mm[Hg] [facility] Diastolic blood pressure 2024-01-15 03:18:00 75 mm[Hg] [facility] Heart rate 2024-01-15 03:18:00 79 /min [facility] Body temperature 2024-01-15 03:18:00 36.5 Ginny [facility] Respiratory rate 2024-01-15 03:18:00 18 /min [facility] Body height 2024-01-15 03:18:00 177.8 cm [facility] Body weight 2024-01-15 03:18:00 99.791 kg [facility] BMI 2024-01-15 03:18:00 31.57 kg/m2 [facility] Oxygen saturation in Arterial blood by Pulse oximetry 2024-01-15 03:18:00 98 /min [facility] Systolic blood pressure 2024-01-05 12:37:00 161 mm[Hg] [facility] Diastolic blood pressure 2024-01-05 12:37:00 76 mm[Hg] [facility] Heart rate 2024-01-05 12:37:00 76 /min Un[facility] Body temperature 2024-01-05 12:37:00 36.89 Ginny [facility] Respiratory rate 2024-01-05 12:37:00 18 /min [facility] Body height 2024-01-05 12:37:00 177.8 cm [facility] Body weight 2024-01-05 12:37:00 99.791 kg [facility] BMI 2024-01-05 12:37:00 31.57 kg/m2 [facility] Oxygen saturation in Arterial blood by Pulse oximetry 2024-01-05 12:37:00 96 /min [facility] Systolic blood pressure 2021-07-10 22:35:00 173 mm[Hg] [facility] Diastolic blood pressure 2021-07-10 22:35:00 71 mm[Hg] [facility] Heart rate 2021-07-10 22:35:00 50 /min Unive [facility] Body height 2021-07-10 22:35:00 177.8 cm [facility] Body weight 2021-07-10 22:35:00 114.306 kg [facility] BMI 2021-07-10 22:35:00 36.16 kg/m2 [facility] Oxygen saturation in Arterial blood by Pulse oximetry 2021-07-10 22:35:00 99 /min [facility] Systolic blood pressure 2021-07-10 15:12:00 173 mm[Hg] [facility] Diastolic blood pressure 2021-07-10 15:12:00 71 mm[Hg] [facility] Heart rate 2021-07-10 15:10:00 50 /min Unive [facility] Body height 2021-07-10 15:10:00 177.8 cm [facility] Body weight 2021-07-10 15:10:00 114.306 kg [facility] BMI 2021-07-10 15:10:00 36.16 kg/m2 [facility] Oxygen saturation in Arterial blood by Pulse oximetry 2021-07-10 15:10:00 99 /min [facility] Systolic blood pressure 2021-05-20 23:06:00 130 mm[Hg] [facility] Diastolic blood pressure 2021-05-20 23:06:00 76 mm[Hg] [facility] Heart rate 2021-05-20 23:05:00 67 /min Unive [facility] Body temperature 2021-05-20 23:05:00 36.33 Ginny [facility] Respiratory rate 2021-05-20 23:05:00 18 /min [facility] Body height 2021-05-20 23:05:00 177.8 cm [facility] Body weight 2021-05-20 23:05:00 112.583 kg [facility] BMI 2021-05-20 23:05:00 35.61 kg/m2 [facility] Oxygen saturation in Arterial blood by Pulse oximetry 2021-05-20 23:05:00 97 /min [facility] Systolic blood pressure 2021-02-14 21:09:00 153 mm[Hg] [facility] Diastolic blood pressure 2021-02-14 21:09:00 76 mm[Hg] [facility] Heart rate 2021-02-14 21:09:00 58 /min [facility] Body temperature 2021-02-14 21:09:00 36.72 Ginny [facility] Respiratory rate 2021-02-14 21:09:00 18 /min [facility] Body weight 2021-02-14 21:09:00 115.667 kg [facility] BMI 2021-02-14 21:09:00 35.57 kg/m2 [facility] Oxygen saturation in Arterial blood by Pulse oximetry 2021-02-14 21:09:00 97 /min [facility] Systolic blood pressure 2020-04-12 14:51:00 126 mm[Hg] [facility] Diastolic blood pressure 2020-04-12 14:51:00 76 mm[Hg] [facility] Heart rate 2020-04-12 14:51:00 58 /min Un[facility] Body temperature 2020-04-12 14:51:00 36.72 Ginny [facility] Respiratory rate 2020-04-12 14:51:00 18 /min [facility] Body height 2020-04-12 14:51:00 180.3 cm [facility] Body weight 2020-04-12 14:51:00 113.399 kg [facility] BMI 2020-04-12 14:51:00 34.87 kg/m2 [facility] Oxygen saturation in Arterial blood by Pulse oximetry 2020-04-12 14:51:00 98 /min [facility] Systolic blood pressure 2020-03-12 13:30:00 115 mm[Hg] [facility] Diastolic blood pressure 2020-03-12 13:30:00 81 mm[Hg] [facility] Heart rate 2020-03-12 13:30:00 51 /min Unive [facility] Respiratory rate 2020-03-12 13:30:00 20 /min [facility] Oxygen saturation in Arterial blood by Pulse oximetry 2020-03-12 13:30:00 97 /min [facility] Body temperature 2020-03-12 12:37:00 36.22 Ginny [facility] Body weight 2020-03-12 12:37:00 111.131 kg [facility] BMI 2020-03-12 12:37:00 34.17 kg/m2 [facility] Systolic blood pressure 2020-01-18 13:42:00 136 mm[Hg] [facility] Diastolic blood pressure 2020-01-18 13:42:00 73 mm[Hg] [facility] Heart rate 2020-01-18 13:42:00 52 /min Unive [facility] Body temperature 2020-01-18 13:42:00 36.56 Ginny [facility] Respiratory rate 2020-01-18 13:42:00 18 /min [facility] Body height 2020-01-18 13:42:00 180.3 cm [facility] Body weight 2020-01-18 13:42:00 113.309 kg [facility] BMI 2020-01-18 13:42:00 34.84 kg/m2 [facility] Oxygen saturation in Arterial blood by Pulse oximetry 2020-01-18 13:42:00 96 /min [facility] Systolic blood pressure 2019-12-30 17:24:00 154 mm[Hg] [facility] Diastolic blood pressure 2019-12-30 17:24:00 79 mm[Hg] [facility] Heart rate 2019-12-30 17:24:00 60 /min Unive [facility] Respiratory rate 2019-12-30 17:24:00 16 /min [facility] Oxygen saturation in Arterial blood by Pulse oximetry 2019-12-30 17:24:00 96 /min [facility] Body temperature 2019-12-30 16:55:00 36.39 Ginny [facility] Body height 2019-12-26 22:40:00 180.3 cm [facility] Body weight 2019-12-26 22:40:00 116.121 kg [facility] BMI 2019-12-26 22:40:00 35.72 kg/m2 [facility] Systolic blood pressure 2019-12-19 14:13:00 135 mm[Hg] [facility] Diastolic blood pressure 2019-12-19 14:13:00 72 mm[Hg] [facility] Heart rate 2019-12-19 14:11:00 56 /min [facility] 2019-12-19 14:11:00 19 /min [facility] Body height 2019-12-19 14:11:00 180.3 cm [facility] Body weight 2019-12-19 14:11:00 117.935 kg [facility] BMI 2019-12-19 14:11:00 36.26 kg/m2 [facility] Oxygen saturation in Arterial blood by Pulse oximetry 2019-12-19 14:11:00 96 /min [facility] Systolic blood pressure 2024-06-28 16:55:00 117 mm[Hg] [facility] Diastolic blood pressure 2024-06-28 16:55:00 57 mm[Hg] [facility] Heart rate 2024-06-28 16:55:00 65 /min [facility] Body temperature 2024-06-28 16:55:00 36.5 Ginny [facility] Respiratory rate 2024-06-28 16:55:00 18 /min [facility] Oxygen saturation in Arterial blood by Pulse oximetry 2024-06-28 16:55:00 98 /min [facility] Body weight 2024-06-28 09:42:00 89.495 kg [facility] BMI 2024-06-28 09:42:00 28.31 kg/m2 [facility] Body height 2024-06-23 21:39:00 177.8 cm [facility] Procedures Procedure Date / Time Performed Performing Clinician Source POCT GLUCOSE (AUTOMATED) 2024-07-01 21:20:00 Valente Ott [facility] POCT GLUCOSE (AUTOMATED) 2024-07-01 17:39:00 [facility] PO[facility] GLUCOSE (AUTOMATED) 2024-07-01 13:13:00 Valente Ott [facility] BASIC METABOLIC PANEL (NA, K, CL, CO2, GLUCOSE, BUN, CREATININE, CA) 2024-07-01 08:40:00 Nohemy Askew [facility] CBC WITH DIFF 2024-07-01 08:40:00 Nohemy Aksew [facility] POCT GLUCOSE (AUTOMATED) 2024-07-01 00:47:00 Valente Ott [facility] POCT GLUCOSE (AUTOMATED) 2024-06-30 21:23:00 Valente Ott [facility] POCT GLUCOSE (AUTOMATED) 2024-06-30 16:14:00 [facility] POCT GLUCOSE (AUTOMATED) 2024-06-30 12:51:00 Valente Ott [facility] BASIC METABOLIC PANEL (NA, K, CL, CO2, GLUCOSE, BUN, CREATININE, CA) 2024-06-30 09:22:00 Jayshree [facility] CBC WITH DIFF 2024-06-30 09:22:00 Marguerite Martell [facility] POCT GLUCOSE (AUTOMATED) 2024-06-30 02:02:00 Valente Ott [facility] POCT GLUCOSE (AUTOMATED) 2024-06-29 21:11:00 Valente Ott [facility] POCT GLUCOSE (AUTOMATED) 2024-06-29 16:39:00 Valente Ott [facility] POCT GLUCOSE (AUTOMATED) 2024-06-29 12:39:00 Valente Ott [facility] BASIC METABOLIC PANEL (NA, K, CL, CO2, GLUCOSE, BUN, CREATININE, CA) 2024-06-29 08:24:00 Nohemy Askew [facility] CBC WITH DIFF 2024-06-29 08:24:00 Nohemy Askew [facility] POCT GLUCOSE (AUTOMATED) 2024-06-29 02:40:00 Valente Ott [facility] POCT GLUCOSE (AUTOMATED) 2024-06-28 22:49:00 Valente Ott [facility] POCT GLUCOSE (AUTOMATED) 2024-06-28 21:56:00 Valente Ott [facility] POCT GLUCOSE (AUTOMATED) 2024-06-28 16:57:00 Valente Ott [facility] POCT GLUCOSE (AUTOMATED) 2024-06-28 16:57:00 Valente Ott [facility] POCT GLUCOSE (AUTOMATED) 2024-06-28 13:02:00 Valente Ott [facility] POCT GLUCOSE (AUTOMATED) 2024-06-28 13:02:00 Valente Ott [facility] BASIC METABOLIC PANEL (NA, K, CL, CO2, GLUCOSE, BUN, CREATININE, CA) 2024-06-28 09:43:00 Kimmie Sandra [facility] MAGNESIUM 2024-06-28 09:43:00 Kimmie Sandra [facility] CBC WITH DIFF 2024-06-28 09:43:00 Kimmie Sandra [facility] VANCOMYCIN RANDOM LEVEL 2024-06-28 09:43:00 Diamond Marroquin [facility] MAGNESIUM 2024-06-28 09:43:00 Kimmie Sandra [facility] BASIC METABOLIC PANEL (NA, K, CL, CO2, GLUCOSE, BUN, CREATININE, CA) 2024-06-28 09:43:00 Kimmie Sandra [facility] VANCOMYCIN RANDOM LEVEL 2024-06-28 09:43:00 Diamond Marroquin [facility] CBC WITH DIFF 2024-06-28 09:43:00 [facility] 2024-06-28 05:07:00 Valente Ott [facility] POCT GLUCOSE (AUTOMATED) 2024-06-28 05:07:00 Valente Ott [facility] POCT GLUCOSE (AUTOMATED) 2024-06-28 02:10:00 Valente Ott [facility] POCT GLUCOSE (AUTOMATED) 2024-06-28 02:10:00 Valente Ott [facility] POCT GLUCOSE (AUTOMATED) 2024-06-27 21:59:00 Valente Ott [facility] POCT GLUCOSE (AUTOMATED) 2024-06-27 21:59:00 Valente Ott [facility] POCT GLUCOSE (AUTOMATED) 2024-06-27 19:47:00 Valente Ott [facility] POCT GLUCOSE (AUTOMATED) 2024-06-27 19:47:00 [facility] XR CHEST 1 VW 2024-06-27 19:02:32 Kimmie Sandra [facility] XR CHEST 1 VW 2024-06-27 19:02:32 Kimmie Sandra [facility] TRANSESOPHAGEAL ECHO (RAYMOND) COMPLETE W/ DOPPLER AND COLOR 2024-06-27 17:29:00 [facility] TRANSES[facility]CHO (RAYMOND) COMPLETE W/ DOPPLER AND COLOR 2024-06-27 17:29:00 Frank Quiroz [facility] POCT GLUCOSE (AUTOMATED) 2024-06-27 16:41:00 Valente Ott [facility] POCT GLUCOSE (AUTOMATED) 2024-06-27 16:41:00 Valente Ott [facility] POCT GLUCOSE (AUTOMATED) 2024-06-27 14:13:00 Valente Ott [facility] POCT GLUCOSE (AUTOMATED) 2024-06-27 14:13:00 Valente Ott [facility] POCT GLUCOSE (AUTOMATED) 2024-06-27 13:26:00 Valente Ott [facility] POCT GLUCOSE (AUTOMATED) 2024-06-27 13:26:00 Valente Ott [facility] BASIC METABOLIC PANEL (NA, K, CL, CO2, GLUCOSE, BUN, CREATININE, CA) 2024-06-27 09:41:00 Boaz [facility] MAGNESIUM 2024-06-27 09:41:00 Kimmie Sandra [facility] CBC WITH DIFF 2024-06-27 09:41:00 [facility] 2024-06-27 09:41:00 Kimmie Sandra [facility] BASIC METABOLIC PANEL (NA, K, CL, CO2, GLUCOSE, BUN, CREATININE, CA) 2024-06-27 09:41:00 Boaz [facility] CBC WITH DIFF 2024-06-27 09:41:00 Boaz [facility] POCT GLUCOSE (AUTOMATED) 2024-06-27 01:37:00 Valente Ott [facility] POCT GLUCOSE (AUTOMATED) 2024-06-27 01:37:00 Valente Ott [facility] POCT GLUCOSE (AUTOMATED) 2024-06-26 21:58:00 Valente Ott [facility] POCT GLUCOSE (AUTOMATED) 2024-06-26 21:58:00 Valente Ott [facility] POCT GLUCOSE (AUTOMATED) 2024-06-26 17:25:00 Valente Ott [facility] POCT GLUCOSE (AUTOMATED) 2024-06-26 17:25:00 [facility] POCT GLUCOSE (AUTOMATED) 2024-06-26 13:17:00 [facility] 2024-06-26 13:17:00 Valente Ott [facility] BASIC METABOLIC PANEL (NA, K, CL, CO2, GLUCOSE, BUN, CREATININE, CA) 2024-06-26 09:49:00 Kimmie Sandra [facility] MAGNESIUM 2024-06-26 09:49:00 Kimmie Sandra [facility] CBC WITH DIFF 2024-06-26 09:49:00 Kimmie Sandra [facility] MAGNESIUM 2024-06-26 09:49:00 Kimmie Sandra [facility] BASIC METABOLIC PANEL (NA, K, CL, CO2, GLUCOSE, BUN, CREATININE, CA) 2024-06-26 09:49:00 [facility] 2024-06-26 09:49:00 Kimmie Sandra [facility] POCT GLUCOSE (AUTOMATED) 2024-06-26 02:29:00 [facility]) 2024-06-26 02:29:00 [facility] POCT GLUCOSE (AUTOMATED) 2024-06-25 21:45:00 Valente Ott [facility] POCT GLUCOSE (AUTOMATED) 2024-06-25 21:45:00 Valente Ott [facility] POCT GLUCOSE (AUTOMATED) 2024-06-25 16:54:00 Valente Ott [facility] POCT GLUCOSE (AUTOMATED) 2024-06-25 16:54:00 Valente Ott [facility] POCT GLUCOSE (AUTOMATED) 2024-06-25 13:20:00 Valente Ott [facility] POCT GLUCOSE (AUTOMATED) 2024-06-25 13:20:00 Valente Ott [facility] VANCOMYCIN RANDOM LEVEL 2024-06-25 09:59:00 Gary Ott [facility] VANCOMYCIN RANDOM LEVEL 2024-06-25 09:59:00 Gary Ott [facility] POCT GLUCOSE (AUTOMATED) 2024-06-25 00:57:00 Valente Ott [facility] POCT GLUCOSE (AUTOMATED) 2024-06-25 00:57:00 Valente Ott [facility] POCT GLUCOSE (AUTOMATED) 2024-06-24 22:07:00 Valente Ott [facility] POCT GLUCOSE (AUTOMATED) 2024-06-24 22:07:00 Valente Ott [facility] POCT GLUCOSE (AUTOMATED) 2024-06-24 17:08:00 Valente Ott [facility] POCT GLUCOSE (AUTOMATED) 2024-06-24 17:08:00 [facility] 2024-06-24 16:27:00 Sybil Sandra [facility] BLOOD CULTURE SCREEN 2024-06-24 16:27:00 Sybil Sandra [facility] CAROTID DUPLEX BILATERAL - BY VASCULAR LAB 2024-06-24 13:42:48 Alina Edouard.HNeri [facility] CAROTID DUPLEX BILATERAL - BY VASCULAR LAB 2024-06-24 13:42:48 Alina Edouard.HNeri [facility] POCT GLUCOSE (AUTOMATED) 2024-06-24 13:25:00 [facility]ATED) 2024-06-24 13:25:00 Valente Ott [facility] POCT GLUCOSE (AUTOMATED) 2024-06-24 00:52:00 Valente Ott [facility] POCT GLUCOSE (AUTOMATED) 2024-06-24 00:52:00 Valente Ott [facility] AMMONIA, PLASMA 2024-06-23 23:41:00 Raj Ott [facility] AMMONIA, PLASMA 2024-06-23 23:41:00 Raj Ott [facility] ACUTE CARE ARTERIAL BLOOD GAS 2024-06-23 22:43:00 Raj Ott [facility] ACUTE CARE ARTERIAL BLOOD GAS 2024-06-23 22:43:00 Raj Ott [facility] POCT GLUCOSE (AUTOMATED) 2024-06-23 22:03:00 Valente Ott [facility] POCT GLUCOSE (AUTOMATED) 2024-06-23 22:03:00 [facility] MAGNESIUM 2024-06-23 21:04:00 Raj Ott [facility] TROPONIN I 2024-06-23 21:04:00 Javan, Alina Hatfield [facility] LIPID PANEL ([id number])(TOTAL CHOLESTEROL, TRIGLYCERIDES, HDL) 2024-06-23 21:04:00 Alina Edouard [facility] MAGNESIUM 2024-06-23 21:04:00 Raj Ott [facility] TROPONIN I 2024-06-23 21:04:00 Edouard, Alina K.HNeri [facility] LIPID PANEL ([id number])(TOTAL CHOLESTEROL, TRIGLYCERIDES, HDL) 2024-06-23 21:04:00 Alina Edouard [facility] TRANSTHORACIC ECHO (TTE) COMPLETE 2024-06-23 20:12:00 Raj Ott [facility] TRANSTHORACIC ECHO (TTE) COMPLETE 2024-06-23 20:12:00 Raj Ott [facility] CT HEAD WO CONTRAST 2024-06-23 17:47:00 Juno Hwang [facility] CT CERVICAL SPINE WO CONTRAST 2024-06-23 17:47:00 Juno Hwang [facility] CT CERVICAL SPINE WO CONTRAST 2024-06-23 17:47:00 Juno Hwang [facility] CT HEAD WO CONTRAST 2024-06-23 17:47:00 Juno Hwang [facility] CBC WITH DIFF 2024-06-23 17:07:00 Juno Hwang [facility] COMP. METABOLIC PANEL ([id number]) 2024-06-23 17:07:00 Juno Hwang [facility] TROPONIN I 2024-06-23 17:07:00 Juno Hwang [facility] N-TERMINAL PRO-BNP 2024-06-23 17:07:00 Juno Hwang [facility] URINALYSIS 2024-06-23 17:07:00 Juno Hwang [facility] PROTHROMBIN TIME / INR 2024-06-23 17:07:00 Juno Hwang [facility] ACTIVATED PARTIAL THRMPLAS NILDA 2024-06-23 17:07:00 Juno Hwang [facility] LACTIC ACID WHOLE BLOOD 2024-06-23 17:07:00 Juno Hwang Carmen [facility] GLYCOSYLATED HEMOGLOBIN (A1C) 2024-06-23 17:07:00 Raj Ott [facility] TROPONIN I 2024-06-23 17:07:00 Juno Hwang [facility] COMP. METABOLIC PANEL ([id number]) 2024-06-23 17:07:00 Juno Hwang [facility] CBC WITH DIFF 2024-06-23 17:07:00 Juno Hwang [facility] GLYCOSYLATED HEMOGLOBIN (A1C) 2024-06-23 17:07:00 Tru [facility] PROTHROMBIN TIME / INR 2024-06-23 17:07:00 Juno Hwang [facility] ACTIVATED PARTIAL THRMPLAS NILDA 2024-06-23 17:07:00 Juno Hwang [facility] URINALYSIS 2024-06-23 17:07:00 uJno Hwang [facility] N-TERMINAL PRO-BNP 2024-06-23 17:07:00 Juno Hwang [facility] LACTIC ACID WHOLE BLOOD 2024-06-23 17:07:00 Juno Hwang [facility] POCT GLUCOSE (AUTOMATED) 2024-06-19 21:58:00 Juno Hwang [facility] POCT GLUCOSE (AUTOMATED) 2024-06-19 21:58:00 Juno Hwang [facility] POCT GLUCOSE (AUTOMATED) 2024-06-19 21:28:00 Juno Hwang [facility] POCT GLUCOSE (AUTOMATED) 2024-06-19 21:28:00 Juno Hwang [facility] XR CHEST 1 VW 2024-06-19 19:23:33 Juno Hwang [facility] XR CHEST 1 VW 2024-06-19 19:23:33 Juno Hwang [facility] LACTIC ACID WHOLE BLOOD 2024-06-19 19:13:00 Juno Hwang [facility] LACTIC ACID WHOLE BLOOD 2024-06-19 19:13:00 Juno Hwang [facility] URINALYSIS 2024-06-19 19:12:00 [facility] URINALYSIS 2024-06-19 19:12:00 [facility] URINE CULTURE 2024-06-19 19:12:00 Juno Hwang [facility] BLOOD CULTURE SCREEN 2024-06-19 19:09:00 Juno Hwang [facility] COMP. METABOLIC PANEL ([id number]) 2024-06-19 19:09:00 Juno Hwang [facility] CBC WITH DIFF 2024-06-19 19:09:00 Juno Hwang [facility] N-TERMINAL PRO-BNP 2024-06-19 19:09:00 Juno Hwang [facility] CBC WITH DIFF 2024-06-19 19:09:00 Juno Hwang [facility] COMP. METABOLIC PANEL ([id number]) 2024-06-19 19:09:00 Juno Hwang [facility] N-TERMINAL PRO-BNP 2024-06-19 19:09:00 Juno Hwang [facility] BLOOD CULTURE SCREEN 2024-06-19 19:09:00 Juno Hwang [facility] BLOOD CULTURE WORKUP 2024-06-19 19:09:00 Juno Hwang [facility] BLOOD CULTURE WORKUP 2024-06-19 19:09:00 Juno Hwang [facility] GRAM POSITIVE BLOOD PATHOGENS DNA PROBE-ANAEROBIC 2024-06-19 19:09:00 Juno Hwang [facility] CT HEAD WO CONTRAST 2024-06-17 00:27:39 Vicente Caldera [facility] CT HEAD WO CONTRAST 2024-06-17 00:27:39 Vicente Caldera [facility] DUPLEX VENOUS LEG RIGHT - BY VASCULAR LAB 2024-06-16 03:05:37 Zo Green [facility] DUPLEX VENOUS LEG RIGHT - BY VASCULAR LAB 2024-06-16 03:05:37 Norma [facility] COMP. METABOLIC PANEL ([id number]) 2024-06-16 00:15:00 Norma [facility] CBC WITH DIFF 2024-06-16 00:15:00 Zo Green [facility] D-DIMER 2024-06-16 00:15:00 Zo Green [facility] LACTIC ACID WHOLE BLOOD 2024-06-16 00:15:00 Zo Green [facility] CBC WITH DIFF 2024-06-16 00:15:00 Zo Green [facility] COMP. METABOLIC PANEL ([id number]) 2024-06-16 00:15:00 Zo Green [facility] LACTIC ACID WHOLE BLOOD 2024-06-16 00:15:00 Norma [facility] D-DIMER 2024-06-16 00:15:00 Zo Green [facility] CT HEAD WO CONTRAST 2024-06-15 23:47:[address] [facility] CT HEAD WO CONTRAST 2024-06-15 23:47:08 Norma [facility] POCT GLUCOSE (AUTOMATED) 2024-04-06 10:11:00 Mulugeta Palma [facility] POCT GLUCOSE (AUTOMATED) 2024-04-06 10:11:00 Mulugeta Palma [facility] POCT GLUCOSE (AUTOMATED) 2024-04-06 09:34:00 Mulugeta Palma [facility] POCT GLUCOSE (AUTOMATED) 2024-04-06 09:34:00 Minerva, [facility] POCT GLUCOSE (AUTOMATED) 2024-04-06 08:30:00 Minerva [facility] POCT GLUCOSE (AUTOMATED) 2024-04-06 08:30:00 Minerva, [facility] POCT GLUCOSE (AUTOMATED) 2024-04-06 07:57:00 Minevra [facility] POCT GLUCOSE (AUTOMATED) 2024-04-06 07:57:00 Minerva [facility] POCT GLUCOSE (AUTOMATED) 2024-04-06 07:34:00 Minerva [facility] POCT GLUCOSE (AUTOMATED) 2024-04-06 07:34:00 Minerva, [facility] MAGNESIUM 2024-04-06 06:56:00 Minerva [facility] COMP. METABOLIC PANEL ([id number]) 2024-04-06 06:56:00 Minerva, [facility] CBC WITH DIFF 2024-04-06 06:56:00 Minerva, [facility] URINALYSIS 2024-04-06 06:56:00 Minerva [facility] CBC WITH DIFF 2024-04-06 06:56:00 Minerva, [facility] COMP. METABOLIC PANEL ([id number]) 2024-04-06 06:56:00 Minerva [facility] MAGNESIUM 2024-04-06 06:56:00 Minerva, [facility] URINALYSIS 2024-04-06 06:56:00 Minerva [facility] POCT GLUCOSE (AUTOMATED) 2024-04-06 06:44:00 [facility] POCT GLUCOSE (AUTOMATED) 2024-04-06 06:44:00 [facility] EKG-12 LEAD 2024-04-03 21:51:36 Nando [facility] EKG-12 LEAD 2024-04-03 21:51:36 Danya [facility] ACUTE CARE ARTERIAL BLOOD GAS 2024-04-03 19:07:00 Danya [facility] ACUTE CARE ARTERIAL BLOOD GAS 2024-04-03 19:07:00 Danya [facility] AMMONIA, PLASMA 2024-04-03 18:53:00 Danya Nando [facility] AMMONIA, PLASMA 2024-04-03 18:53:00 Danya Nando [facility] URINALYSIS 2024-04-03 17:52:00 Danya [facility] URINE DRUG (IMMUNOASSAY) - COMPREHENSIVE DRUG SCREEN W/O REFLEX 2024-04-03 17:52:00 Danya [facility] URINALYSIS 2024-04-03 17:52:00 Danya [facility] URINE DRUG (IMMUNOASSAY) - COMPREHENSIVE DRUG SCREEN W/O REFLEX 2024-04-03 17:52:00 Danya [facility] XR CHEST 1 VW 2024-04-03 16:27:00 Nando Hagan [facility] XR FOOT 3+ VW RIGHT 2024-04-03 16:27:00 Darwin Hagan [facility] XR CHEST 1 VW 2024-04-03 16:27:00 Nando Hagan [facility] XR FOOT 3+ VW RIGHT 2024-04-03 16:27:00 Darwin Hagan [facility] LACTIC ACID WHOLE BLOOD 2024-04-03 15:53:00 Ronnie Hagan [facility] LACTIC ACID WHOLE BLOOD 2024-04-03 15:53:00 Ronnie Hagan [facility] PHOSPHORUS 2024-04-03 15:52:00 Danya [facility] CREATINE KINASE 2024-04-03 15:52:00 Nando Hagan [facility] MAGNESIUM 2024-04-03 15:52:00 Danya [facility] TROPONIN I 2024-04-03 15:52:00 Danya [facility] COMP. METABOLIC PANEL (78853) 2024-04-03 15:52:00 Danya [facility] ETHANOL 2024-04-03 15:52:00 Danya [facility] CBC WITH DIFF 2024-04-03 15:52:00 Danya [facility] GALV ONLY - INFLUENZA A B RSV PCR 2024-04-03 15:52:00 Danya [facility] N-TERMINAL PRO-BNP 2024-04-03 15:52:00 Danya [facility] COVID-19 (ID NOW RAPID TESTING) 2024-04-03 15:52:00 Danya [facility] COVID-19 (ID NOW RAPID TESTING) 2024-04-03 15:52:00 Danya [facility] INFLUENZA A/B RSV COVID NAAT 2024-04-03 15:52:00 Danya [facility] CBC WITH DIFF 2024-04-03 15:52:00 Danya [facility] ETHANOL 2024-04-03 15:52:00 Danya [facility] COMP. METABOLIC PANEL ([id number]) 2024-04-03 15:52:00 Danya [facility] TROPONIN I 2024-04-03 15:52:00 Danya [facility] N-TERMINAL PRO-BNP 2024-04-03 15:52:00 Danya [facility] CREATINE KINASE 2024-04-03 15:52:00 [facility] 2024-04-03 15:52:00 Danya [facility] PHOSPHORUS 2024-04-03 15:52:00 Danya [facility] LAB ONLY COVID INTERPRETATION 2024-04-03 15:52:00 Danya [facility] POCT GLUCOSE(AGE >30DAYS) 2024-04-03 15:46:00 Danya [facility] POCT GLUCOSE(AGE >30DAYS) 2024-04-03 15:46:00 Danya [facility] POCT GLUCOSE (AUTOMATED) 2024-04-03 15:43:00 Maksimfuad [facility] POCT GLUCOSE (AUTOMATED) 2024-04-03 15:43:00 Danya [facility] CT CERVICAL SPINE WO CONTRAST 2024-04-03 15:38:07 [facility] CT HEAD WO CONTRAST 2024-04-03 15:38:07 [facility] HEAD WO CONTRAST 2024-04-03 15:38:07 [facility] CT CERVICAL SPINE WO CONTRAST 2024-04-03 15:38:07 Maksim [facility] POCT GLUCOSE (AUTOMATED) 2024-04-01 00:04:00 Racheal Tee [facility] POCT GLUCOSE (AUTOMATED) 2024-04-01 00:04:00 Racheal Tee [facility] POCT GLUCOSE (AUTOMATED) 2024-03-31 23:19:00 Racheal Tee [facility] POCT GLUCOSE (AUTOMATED) 2024-03-31 23:19:00 [facility]OLIC [facility] ([id number]) 2024-03-31 19:37[facility]00 [facility] 2024-03-31 19:37:00 Johnny Tee [facility] EXTRA TUBE LT. BLUE 2024-03-31 19:37:00 Racheal Teeshua [facility] CBC WITH DIFF 2024-03-31 19:37:00 Johnny Tee [facility] COMP. METABOLIC PANEL ([id number]) 2024-03-31 19:37:00 Racheal [place] [facility] EXTRA TUBE LT. BLUE 2024-03-31 19:37:00 Racheal [place] [facility] CT CERVICAL SPINE WO CONTRAST 2024-03-31 19:14:18 Racheal Te[place]ua [facility] CT HEAD WO CONTRAST 2024-03-31 19:14:18 Johnny Tee [facility] CT HEAD WO CONTRAST 2024-03-31 19:14:18 Johnny Tee [facility] CT CERVICAL SPINE WO CONTRAST 2024-03-31 19:14:18 Johnny Tee [facility] XR KNEE 3 VW RIGHT 2024-03-29 22:12:44 Kvng Frank [facility] XR LUMBAR SPINE 2 VW 2024-03-29 22:12:44 Kvng Frank [facility] XR KNEE 3 VW RIGHT 2024-03-29 22:12:44 Kvng Frank [facility] EKG-12 LEAD 2024-03-22 21:31:10 Libby Fernandez [facility] URINALYSIS 2024-03-22 17:07:00 Libby Fernandez [facility] EXTRA TUBE URINE CULTURE 2024-03-22 17:07:00 Baljit Gayle [facility] XR CHEST 2 VW 2024-03-22 16:13:07 Libby Fernandez [facility] CREATINE KINASE 2024-03-22 15:46:00 Libby Fernandez [facility] TROPONIN I 2024-03-22 15:46:00 Libby Fernandez [facility] HEPATIC FUNCTION PANEL ([id number]) (ALB,T.PRO,BILI T,BU/BC,ALT,AST,ALK PHOS) 2024-03-22 15:46:00 Libby Fernandez [facility] BASIC METABOLIC PANEL (NA, K, CL, CO2, GLUCOSE, BUN, CREATININE, CA) 2024-03-22 15:46:00 Libby Fernandez [facility] CBC WITH DIFF 2024-03-22 15:46:00 Libby Fernandez [facility] GLYCOSYLATED HEMOGLOBIN (A1C) 2024-03-22 15:46:00 Baljit Gayle [facility] N-TERMINAL PRO-BNP 2024-03-22 15:46:00 Libby Martinez [facility] EXTRA TUBE LT. BLUE 2024-03-22 15:46:00 Baljit Gayle [facility] POCT GLUCOSE (AUTOMATED) 2024-03-12 04:41:00 VeniceYoav walker [facility] POCT GLUCOSE (AUTOMATED) 2024-03-12 03:45:00 VeniceYoav walker [facility] POCT GLUCOSE (AUTOMATED) 2024-03-12 02:29:00 VeniceYoav walker [facility] CREATINE KINASE 2024-03-12 01:42:00 Dl [facility] TROPONIN I 2024-03-12 01:42:00 Dl Millard [facility] COMP. METABOLIC PANEL ([id number]) 2024-03-12 01:42:00 Dl Millard [facility] CBC WITH DIFF 2024-03-12 01:42:00 Dl [facility] COMP. METABOLIC PANEL ([id number]) 2024-02-10 17:52:00 David Paul [facility] CBC WITH DIFF 2024-02-10 17:52:00 Singer [facility] URINALYSIS 2024-02-09 21:03:00 Tara Ireland [facility] CT HEAD WO CONTRAST 2024-02-09 20:02:00 Tara Ireland [facility] URINALYSIS 2024-02-06 15:15:00 Destiny Muller [facility] XR LUMBAR SPINE 3 VW 2024-02-06 15:00:46 Rolly Muller [facility] CT ABDOMEN PELVIS WO CONTRAST 2024-01-30 18:58:58 Zo Green [facility] COMP. METABOLIC PANEL ([id number]) 2024-01-30 16:35:00 Zo Green [facility] CBC WITH DIFF 2024-01-30 16:35:00 Zo Green [facility] CONSENT/REFUSAL FOR DIAGNOSIS AND TREATMENT 2024-01-15 03:41:26 Doctor Unassigned, [employer] [facility] ASSIGNMENT OF BENEFITS 2024-01-15 03:35:20 Docto r Unassigned, [employer] [facility] ASSIGNMENT OF BENEFITS 2021-05-20 22:59:18 Docto r Unassigned, [employer] [facility] MICROALBUMIN URINE 2021-02-14 22:17:00 Joel Aranda [facility] CONSENT/REFUSAL FOR DIAGNOSIS AND TREATMENT 2021-02-14 21:51:32 Doctor Unassigned, [employer] [facility] ASSIGNMENT OF BENEFITS 2021-02-14 21:50:52 Docto r Unassigned, [employer] [facility] XR TIBIA FIBULA 2 VW RIGHT 2020-03-12 13:27:36 Chelle Fernandez [facility] XR LUMBAR SPINE 3 VW 2020-02-16 18:44:17 Basim Aranda [facility] ASSIGNMENT OF BENEFITS 2020-02-16 17:58:39 Docpaige orozco Unassigned, [employer] [facility] COLONOSCOPY (ENDO) 2019-12-30 15:52:18 Joel Aranda [facility] COLONOSCOPY (ENDO) 2019-12-30 15:52:18 Joel Aranda [facility] POCT GLUCOSE(AGE >30DAYS) 2019-12-30 13:50:[address] [facility] DAY SURGERY - ADC 2019-12-30 06:01:00 Doctor Ileana ssigned, [employer] [facility] HCV ANTIBODY 2019-10-18 15:27:00 Tl Aranda [facility] Encounters Start Date/Time End Date/Time Encounter Type Admission Type Attending Clinicians Care Facility Care Department Encounter ID Source 2024-07-04 00:00:00 2024-07-04 11:05:06 Transition of Care Martell Fallon Michele A [facility] 1.2.840.114 350.1.13.10 4.2.7.2.686 [id number] [facility] 2024-06-23 11:30:00 2024-07-01 17:41:00 Inpatient X FLORENTIN PALACIO [facility] [id number] [facility] 2024-06-23 11:30:00 2024-07-01 17:41:00 Hospital Encounter Juno Hwang, Florentin Holguin [facility] 1.2.840.114 350.1.13.10 4.2.7.2.686 [id number] [facility] 2024-06-27 12:11:00 2024-06-27 12:31:00 Anesthesia Event Benja Pang Thomas 1.2.840.1 39942.1.1 3.104.2.7 .3.140052 .8 [id number] [facility] 2024-06-27 00:00:00 2024-06-27 00:00:00 Travel 1.2.840.1 95399.1.1 3.104.2.7 .3.475842 .8 1.2.840.114 350.1.13.10 4.2.7.3.698 084.8 [id number] [facility] 2024-06-23 00:00:00 2024-06-23 00:00:00 Travel 1.2.840.1 38124.1.1 3.104.2.7 .3.901666 .8 1.2.840.114 350.1.13.10 4.2.7.3.698 084.8 [id number] [facility] 2024-06-20 11:03:00 2024-06-20 12:50:00 Emergency X MULUGETA PALMA ANDRES [facility] ERT [id number] [facility] 2024-06-20 11:03:00 2024-06-20 12:50:00 Emergency Mulugeta Palma 1.2.840.1 77160.1.1 3.104.2.7 .3.484488 .8 [id number] [facility] 2024-06-19 12:34:00 2024-06-19 18:05:00 Emergency X Juno HWANG K [facility] ERT [id number] [facility] 2024-06-19 12:34:00 2024-06-19 18:05:00 Emergency Juno Hwang 1.2.840.1 00329.1.1 3.104.2.7 .3.462964 .8 [id number] [facility] 2024-06-19 00:00:00 2024-06-19 00:00:00 Travel 1.2.840.1 85416.1.1 3.104.2.7 .3.566650 .8 1.2.840.114 350.1.13.10 4.2.7.3.698 084.8 [id number] [facility] 2024-06-16 18:07:00 2024-06-16 19:57:00 Emergency VICENTE TRACEY ERICCA [facility] ERT [id number] [facility] 2024-06-16 18:07:00 2024-06-16 19:57:00 Emergency Vicente Caldera 1.2.840.1 36248.1.1 3.104.2.7 .3.691429 .8 [id number] [facility] 2024-06-15 17:52:00 2024-06-16 00:32:00 Emergency ZO URIAS [facility] ERT [id number] [facility] 2024-06-15 17:52:00 2024-06-16 00:32:00 Emergency Zo Green 1.2.840.1 07993.1.1 3.104.2.7 .3.452151 .8 [id number] [facility] 2024-06-16 00:00:00 2024-06-16 00:00:00 Travel 1.2.840.1 35043.1.1 3.104.2.7 .3.046889 .8 1.2.840.114 350.1.13.10 4.2.7.3.698 084.8 [id number] [facility] 2024-06-15 00:00:00 2024-06-15 00:00:00 Travel 1.2.840.1 23566.1.1 3.104.2.7 .3.755710 .8 1.2.840.114 350.1.13.10 4.2.7.3.698 084.8 [id number] [facility] 2024-04-21 00:00:00 2024-05-28 18:28:04 Patient Secure Msg Doctor Unassigned, [employer] 1.2.840.1 06692.1.1 3.104.2.7 .3.307627 .8 [id number] [facility] 2024-04-22 00:00:00 2024-05-28 18:26:38 Patient Secure Msg Doctor Unassigned, [employer] 1.2.840.1 18484.1.1 3.104.2.7 .3.698012 .8 [id number] [facility] 2024-04-20 00:00:00 2024-05-21 18:17:43 Patient Secure Msg Doctor Unassigned, [employer] 1.2.840.1 82831.1.1 3.104.2.7 .3.421313 .8 [id number] [facility] 2024-04-11 00:00:00 2024-04-11 14:11:19 Patient Outreach Destiny Prajapati 1.2.840.1 36670.1.1 3.104.2.7 .3.754114 .8 [id number] [facility] 2024-04-06 01:32:00 2024-04-06 06:05:00 Emergency X MULUGETA PALMA [facility] [id number] [facility] 2024-04-06 01:32:00 2024-04-06 06:05:00 Emergency Mulugeta Palma 1.2.840.1 52097.1.1 3.104.2.7 .3.980585 .8 [id number] [facility] 2024-04-06 00:00:00 2024-04-06 00:00:00 Travel 1.2.840.1 09954.1.1 3.104.2.7 .3.316333 .8 1.2.840.114 350.1.13.10 4.2.7.3.698 084.8 [id number] [facility] 2024-04-04 00:00:00 2024-04-04 08:34:06 Patient Outreach Destiny Prajapati 1.2.840.1 06036.1.1 3.104.2.7 .3.038790 .8 [id number] [facility] 2024-04-03 09:43:00 2024-04-03 17:45:00 Emergency X NANDO HAGAN [facility] [id number] [facility] 2024-04-03 09:43:00 2024-04-03 17:45:00 Emergency Danya Nando 1.2.840.1 52423.1.1 3.104.2.7 .3.552436 .8 [id number] [facility] 2024-04-03 00:00:00 2024-04-03 00:00:00 Travel 1.2.840.1 11413.1.1 3.104.2.7 .3.665802 .8 1.2.840.114 350.1.13.10 4.2.7.3.698 084.8 [id number] [facility] 2024-04-01 00:00:00 2024-04-01 14:18:07 Patient Outreach Destiny Prajapati 1.2.840.1 78600.1.1 3.104.2.7 .3.947147 .8 [id number] [facility] 2024-03-31 12:38:00 2024-03-31 19:42:00 Emergency X JOHNNY TEE [facility] ERT [id number] [facility] 2024-03-31 12:38:00 2024-03-31 19:42:00 Emergency Johnny Tee 1.2.840.1 41058.1.1 3.104.2.7 .3.046488 .8 [id number] [facility] 2024-03-31 00:00:00 2024-03-31 00:00:00 Travel 1.2.840.1 94461.1.1 3.104.2.7 .3.834601 .8 1.2.840.114 350.1.13.10 4.2.7.3.698 084.8 [id number] [facility] 2024-03-30 00:00:00 2024-03-30 10:17:48 Patient Outreach Destiny Prajapati 1.2.840.1 55932.1.1 3.104.2.7 .3.867024 .8 [id number] [facility] 2024-03-30 00:00:00 2024-03-30 08:13:15 Patient Outreach Destiny Prajapati 1.2.840.1 17742.1.1 3.104.2.7 .3.379417 .8 [id number] [facility] 2024-03-29 14:48:00 2024-03-29 19:06:00 Emergency X KVNG FRANK [facility] ERT [id number] [facility] 2024-03-29 14:48:00 2024-03-29 19:06:00 Emergency Kvng Frank 1.2.840.1 50740.1.1 3.104.2.7 .3.964200 .8 [id number] [facility] 2024-03-29 00:00:00 2024-03-29 14:12:53 Patient Outreach Destiny Prajapati 1.2.840.1 55588.1.1 3.104.2.7 .3.854983 .8 [id number] [facility] 2024-03-29 00:00:00 2024-03-29 08:02:10 Patient Outreach Destiny Prajapati 1.2.840.1 55833.1.1 3.104.2.7 .3.960475 .8 [id number] [facility] 2024-03-29 00:00:00 2024-03-29 00:00:00 Travel 1.2.840.1 48054.1.1 3.104.2.7 .3.344176 .8 1.2.840.114 350.1.13.10 4.2.7.3.698 084.8 [id number] [facility] 2024-03-23 00:00:00 2024-03-23 00:00:00 Patient Outreach Marko Moorea [place] 1.2.840.114 350.1.13.10 4.2.7.2.686 [id number] [facility] 2024-03-23 00:00:00 2024-03-23 00:00:00 Patient Outreach Destiny PrajapatiEllis CARTERKERVIN 1.2.840.114 350.1.13.10 4.2.7.2.686 [id number] [facility] 2024-03-23 00:00:00 2024-03-23 00:00:00 Patient Outreach Destiny PrajapatiEllis CARTERKERVIN 1.2.840.114 350.1.13.10 4.2.7.2.686 [id number] [facility] 2024-03-23 00:00:00 2024-03-23 00:00:00 Patient Outreach Destiny PrajapatiEllis CARTERK[facility]IN 1.2.840.114 350.1.13.10 4.2.7.2.686 [id number] [facility] 2024-03-22 09:57:00 2024-03-22 17:18:00 Emergency X BALJIT GAYLE PAUL [facility] ERT [id number] [facility] 2024-03-22 09:57:00 2024-03-22 17:18:00 Emergency Baljit Gayle [facility] 1.2.840.114 350.1.13.10 4.2.7.2.686 [id number] [facility] 2024-03-11 20:22:00 2024-03-12 00:03:00 Emergency X DL MILLARD [facility] ERT [id number] [facility] 2024-03-11 20:22:00 2024-03-12 00:03:00 Emergency [place] Dl Anthony [facility] 1.2.840.114 350.1.13.10 4.2.7.2.686 [id number] [facility] 2024-02-10 11:58:00 2024-02-10 15:10:00 Emergency X DAVID PAUL [facility] ERT [id number] [facility] 2024-02-10 11:58:00 2024-02-10 15:10:00 Emergency David Paul [facility] 1.2.840.114 350.1.13.10 4.2.7.2.686 [id number] [facility] 2024-02-09 14:01:00 2024-02-09 21:19:00 Emergency X TARA IRELAND [facility] ERT [id number] [facility] 2024-02-09 14:01:00 2024-02-09 21:19:00 Emergency Tara Ireland [facility] 1.2.840.114 350.1.13.10 4.2.7.2.686 [id number] [facility] 2024-02-06 09:21:00 2024-02-06 11:51:00 Emergency X DESTINY MULLER [facility] ERT [id number] [facility] 2024-02-06 09:21:00 2024-02-06 11:51:00 Emergency Destiny Muller [facility] 1.2.840.114 350.1.13.10 4.2.7.2.686 [id number] [facility] 2024-01-30 10:06:00 2024-01-30 15:02:00 Emergency X ZO GREEN [facility] ERT [id number] [facility] 2024-01-30 10:06:00 2024-01-30 15:02:00 Emergency Zo Green [facility] 1.2.840.114 350.1.13.10 4.2.7.2.686 [id number] [facility] 2024-01-14 21:21:00 2024-01-14 21:48:00 Emergency X SILAS ANDERSEN SALMIN [facility] ERT [id number] [facility] 2024-01-14 21:21:00 2024-01-14 21:48:00 Emergency Silas Andersen [facility] 1.2.840.114 350.1.13.10 4.2.7.2.686 [id number] [facility] 2024-01-05 06:39:00 2024-01-05 07:57:00 Emergency X LARS DIAZRA [facility] ERT [id number] [facility] 2024-01-05 06:39:00 2024-01-05 07:57:00 Emergency Jackie Diaz [facility] 1.2.840.114 350.1.13.10 4.2.7.2.686 [id number] [facility] 2022-12-29 13:30:00 2022-12-29 14:30:00 CAV Lorene Stein 2.16.840. 1.125231. 4.6.73778 [id number] 2.16.840.1. 679344.4.6. [id number] [facility] 2022-10-17 00:00:00 2022-10-17 00:00:00 Outpatient DMG DM [id number] [facility] 2022-10-17 00:00:00 2022-10-17 00:00:00 Outpatient DMG DM [id number] [facility] 2022-09-07 00:00:00 2022-09-07 00:00:00 Outpatient DMG [facility] [id number] [facility] 2022-08-21 00:00:00 2022-08-21 00:00:00 [facility] 1.2.840.114 350.1.13.10 4.2.7.2.686 [id number] [facility] 2022-02-17 00:00:00 2022-02-17 00:00:00 [facility] 1.2.840.114 350.1.13.10 4.2.7.2.686 [id number] [facility] 2021-11-06 10:40:00 2021-11-06 10:40:00 Outpatient TL [facility] [id number] [facility] 2021-10-28 00:00:00 2021-10-28 00:00:00 Tl [facility] 1.2.840.114 350.1.13.10 4.2.7.2.686 [id number] [facility] 2021-10-03 00:00:00 2021-10-03 00:00:00 RefTl Harvey [facility] 1.2.840.114 350.1.13.10 4.2.7.2.686 [id number] [facility] 2021-09-09 00:00:00 2021-09-09 00:00:00 Telephone Georgina Garcia [facility] 1.2.840.114 350.1.13.10 4.2.7.2.686 [id number] [facility] 2021-07-18 00:00:00 2021-07-18 00:00:00 Patient Secure Msg Doctor Unassigned, [employer] [facility] 1.2.840.114 350.1.13.10 4.2.7.2.686 [id number] [facility] 2021-07-12 00:00:00 2021-07-12 00:00:00 Telephone Tl Aranda [facility] 1.2.840.114 350.1.13.10 4.2.7.2.686 [id number] [facility] 2021-07-10 15:55:33 2021-07-10 15:55:44 Office Visit Tl Aranda [facility] 1.2.840.114 350.1.13.10 4.2.7.2.686 [id number] [facility] 2021-07-10 09:55:19 2021-07-10 11:00:50 Office Visit Tl [facility] 1.2.840.114 350.1.13.10 4.2.7.2.686 [id number] [facility] 2021-07-10 10:00:00 2021-07-10 10:00:00 Outpatient R TL ARANDA [facility] [id number] [facility] 2021-07-09 00:00:00 2021-07-09 00:00:00 Telephone Rosa Elenahannah Tl [facility] 1.840.114 350.1.13.10 4.2.7.2.686 [id number] [facility] 2021-06-19 00:00:00 2021-06-19 00:00:00 Refill Rosa ElenaTl young [facility] 1.84.114 350.1.13.10 4.2.7.2.686 [id number] [facility] 2021-05-20 17:59:38 2021-05-20 18:39:03 Urgent Care Provider, [facility] 1.84.114 350.1.13.10 4.2.7.2.686 [id number] [facility] 2021-05-20 18:20:00 2021-05-20 18:20:00 Outpatient R [facility] [id number] [facility] 2021-05-20 00:00:00 2021-05-20 00:00:00 Orders Only Doctor Unassigned, [employer] [facility] 1.84.114 350.1.13.10 4.2.7.2.686 [id number] [facility] 2021-05-16 00:00:00 2021-05-16 00:00:00 Refill Rosa Elenahannah [facility] 1.84.114 350.1.13.10 4.2.7.2.686 [id number] [facility] 2021-02-14 16:53:57 2021-02-14 17:08:57 Budder Visit Pob, 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 [facility] young [facility] 1.2840.114 350.1.13.10 4.2.7.2.686 [id number] [facility] 2021-02-14 15:55:11 2021-02-14 16:27:03 Office Visit Tl Aranda [facility] 1.2.840.114 350.1.13.10 4.2.7.2.686 [id number] [facility] 2021-02-14 16:00:00 2021-02-14 16:00:00 Outpatient R TL ARANDA [facility] [id number] [facility] 2021-02-14 00:00:00 2021-02-14 00:00:00 Orders Only Doctor Unassigned, [employer] [facility] 1.2840.114 350.1.13.10 4.2.7.2.686 [id number] [facility] 2021-02-08 00:00:00 2021-02-08 00:00:00 Refill Tl Aranda [facility] 1.2840.114 350.1.13.10 4.2.7.2.686 [id number] 044 [id number] [facility] 2021-01-28 00:00:00 2021-01-28 00:00:00 Telephone Tl Aranda [facility] 1.2.840.114 350.1.13.10 4.2.7.2.686 [id number] [facility] 2021-01-22 00:00:00 2021-01-22 00:00:00 Telephone Tl Aranda [facility] 1.2.840.114 350.1.13.10 4.2.7.2.686 [id number] [id number] [facility] 2021-01-21 00:00:00 2021-01-21 00:00:00 Refill Tl Aranda [facility] 1.2.840.114 350.1.13.10 4.2.7.2.686 [id number] [facility] 2020-10-31 13:30:00 2020-10-31 13:30:00 Outpatient R NIMISHA YING [facility] [id number] [facility] 2020-10-09 14:40:00 2020-10-09 14:40:00 Outpatient R TL ARANDA [facility] [id number] [facility] 2020-09-24 09:20:00 2020-09-24 09:20:00 Outpatient R FRANK QUIROZ [facility] [id number] [facility] 2020-07-09 09:20:00 2020-07-09 09:20:00 Outpatient R TL ARANDA [facility] [id number] [facility] 2020-07-09 08:17:40 2020-07-09 08:37:40 Telemedici ne Visit Tl Aranda [facility] 1.2.840.114 350.1.13.10 4.2.7.2.686 [id number] [id number] [facility] 2020-06-28 00:00:00 2020-06-28 00:00:00 Refill Darrell Maxwell [facility] 1.2.840.114 350.1.13.10 4.2.7.2.686 [id number] [id number] [facility] 2020-04-19 08:00:00 2020-04-19 08:00:00 Outpatient R TL ARANDA [facility] [id number] [facility] 2020-04-12 09:46:54 2020-04-12 10:06:54 Urgent Care Provider, [facility] Yossi Prasad [facility] Office Building One 1..840.114 350.1.13.10 4.2.7.2.686 [id number] [id number] [facility] 2020-04-12 10:00:00 2020-04-12 10:00:00 Outpatient R YOSSI PRASAD [facility] [id number] [facility] 2020-04-09 00:00:00 2020-04-09 00:00:00 Telephone Manoj Tl [facility] 1..840.114 350.1.13.10 4.2.7.2.686 [id number] 044 [id number] [facility] 2020-04-05 00:00:00 2020-04-05 00:00:00 Telephone Tl Aranda [facility] 1..840.114 350.1.13.10 4.2.7.2.686 [id number] 044 [id number] [facility] 2020-03-16 10:02:04 2020-03-16 10:02:51 [place] [employer] Visit KiloDebra fam [facility] 1..840.114 350.1.13.10 4.2.7.2.686 [id number] [facility] 2020-03-15 15:00:00 2020-03-15 15:00:00 Outpatient R MANINDER FRIEDMANSRA [facility] [id number] [facility] 2020-03-14 16:30:00 2020-03-14 16:30:00 Outpatient R DARRELL BECKFORD [facility] [id number] [facility] 2020-03-14 15:42:00 2020-03-14 15:57:00 Telemedici ne Visit Darrell Beckford [facility] 1..840.114 350.1.13.10 4.2.7.2.686 [id number] [facility] 2020-03-14 00:00:00 2020-03-14 00:00:00 [facility] 1.2.840.114 350.1.13.10 4.2.7.2.686 [id number] 044 [id number] [facility] 2020-03-12 07:53:07 2020-03-12 08:57:00 Emergency Chelle Fernandez [facility] 1.2.840.114 350.1.13.10 4.2.7.2.686 [id number] [facility] 2020-03-12 07:53:07 2020-03-12 08:57:00 Emergency X RADHA FERNANDEZNELL [facility] ERT [id number] [facility] 2020-03-08 15:00:00 2020-03-08 15:00:00 Outpatient R DEBRA FRIEDMAN [facility] [id number] [facility] 2020-02-28 13:00:00 2020-02-28 13:00:00 Outpatient R MANOJ TL [facility] [id number] [facility] 2020-02-28 07:16:07 2020-02-28 07:56:07 [facility] 1.2.840.114 350.1.13.10 4.2.7.2.686 [id number] [facility] 2020-02-23 00:00:00 2020-02-23 00:00:[address] [facility] 1.2.840.114 350.1.13.10 4.2.7.2.686 [id number] [id number] [facility] 2020-02-16 12:59:15 2020-02-16 23:59:00 Outpatient R MANOJ [facility] [id number] [facility] 2020-02-16 12:59:00 2020-02-16 23:59:00 Hospital Encounter Tl Aranda [facility] 1.2.840.114 350.1.13.10 4.2.7.2.686 [id number] [facility] 2020-02-16 00:00:00 2020-02-16 00:00:00 Orders Only Doctor Unassigned, [employer] [facility] 1.2.840.114 350.1.13.10 4.2.7.2.686 [id number] [facility] 2020-02-16 00:00:00 2020-02-16 00:00:00 Telephone Manoj [facility] Building 1.2.840.114 350.1.13.10 4.2.7.2.686 [id number] [id number] [facility] 2020-01-18 07:23:58 2020-01-18 08:32:20 Office Visit Manoj [facility] Building 1.2.840.114 350.1.13.10 4.2.7.2.686 [id number] [facility] 2020-01-18 07:20:00 2020-01-18 07:20:00 Outpatient R MANOJ [facility] [id number] [facility] 2020-01-18 00:00:00 2020-01-18 00:00:00 Letter (Out) Doctor Unassigned, [employer] [facility] 1.2.840.114 350.1.13.10 4.2.7.2.686 [id number] [facility] 2020-01-07 00:00:00 2020-01-07 00:00:00 Natividad Corrigan [facility] 1.2.840.114 350.1.13.10 4.2.7.2.686 [id number] [facility] 2020-01-04 00:00:00 2020-01-04 00:00:00 Telephone Tl Aranda [facility] Building 1.2.840.114 350.1.13.10 4.2.7.2.686 [id number] 044 [id number] [facility] 2019-12-30 07:35:00 2019-12-30 11:49:00 Hospital Encounter Glo Finn [facility] 1.2.840.114 350.1.13.10 4.2.7.2.686 [id number] [facility] 2019-12-30 07:35:00 2019-12-30 11:49:00 Outpatient R GLO FINN [facility] [id number] [facility] 2019-12-30 00:00:00 2019-12-30 00:00:00 Orders Only Doctor Unassigned, [employer] [facility] 1.2.840.114 350.1.13.10 4.2.7.2.686 [id number] [facility] 2019-12-19 08:02:28 2019-12-19 09:08:19 Office Visit Kendall Campa [facility] Building 1.2.840.114 350.1.13.10 4.2.7.2.686 [id number] [facility] 2019-12-01 15:15:00 2019-12-01 15:15:00 Outpatient R JOCELYN GREER [facility] [id number] [facility] 2019-10-26 14:45:00 2019-10-26 15:36:20 Outpatient R NIMISHA YIGN [facility] [id number] [facility] 2019-06-10 10:30:00 2019-06-10 12:20:48 Outpatient R TL ARANDA [facility] [id number] [facility] 2019-05-30 14:20:00 2019-05-30 17:18:22 Outpatient R DARRELL MAXWELL III [facility] [id number] [facility] 2019-05-24 08:45:00 2019-05-24 08:45:00 Outpatient MARIAMA REAL [facility] [id number] [facility] 2019-04-26 08:30:00 2019-04-26 09:03:15 Outpatient MARIAMA REAL [facility] [id number] [facility] 2019-01-12 15:30:00 2019-01-12 16:04:35 Outpatient NATIVIDAD GLASS [facility] [id number] [facility] Results Test Description Test Time Test Comments Results Result Co mments Source [facility] GLUCOSE (AUTOMATED)2024-07-01 17:43:43* Test Item Value Reference Range Interpretation Comme nts POCT GLU (test code = 2945629201) 252 mg/dL 70-110 H Lab Interpretation (test cod e = 40791-5) Abnormal [facility] GLUCOSE (AUTOMATED)2024-07-01 13:20:21* Test Item Value Reference Range Interpretation Comme nts POCT GLU (test code = 0211684350) 157 mg/dL 70-110 H Lab Interpretation (test cod e = 77641-3) Abnormal [facility] GLUCOSE (AUTOMATED)2024-07-01 00:48:27* Test Item Value Reference Range Interpretation Comme nts POCT GLU (test code = 9415571505) 202 mg/dL 70-110 H Lab Interpretation (test cod e = 21217-3) Abnormal [facility] GLUCOSE (AUTOMATED)2024-06-30 21:25:25* Test Item Value Reference Range Interpretation Comme nts POCT GLU (test code = 9722438241) 214 mg/dL 70-110 H Lab Interpretation (test cod e = 45301-1) Abnormal [facility] GLUCOSE (AUTOMATED)2024-06-30 16:15:38* Test Item Value Reference Range Interpretation Comme nts POCT GLU (test code = 9237441346) 294 mg/dL 70-110 H Lab Interpretation (test cod e = 08958-7) Abnormal [facility] GLUCOSE (AUTOMATED)2024-06-30 12:52:21* Test Item Value Reference Range Interpretation Comme nts POCT GLU (test code = 3999822386) 143 mg/dL 70-110 H Lab Interpretation (test cod e = 84592-6) Abnormal [facility] GLUCOSE (AUTOMATED)2024-06-30 02:04:07* Test Item Value Reference Range Interpretation Comme nts POCT GLU (test code = 3952514067) 270 mg/dL 70-110 H Lab Interpretation (test cod e = 67853-3) Abnormal [facility] GLUCOSE (AUTOMATED)2024-06-29 21:21:05* Test Item Value Reference Range Interpretation Comme nts POCT GLU (test code = 6602978268) 154 mg/dL 70-110 H Lab Interpretation (test cod e = 16040-0) Abnormal [facility] GLUCOSE (AUTOMATED)2024-06-29 16:43:53* Test Item Value Reference Range Interpretation Comme nts POCT GLU (test code = 7744251300) 246 mg/dL 70-110 H Lab Interpretation (test cod e = 08581-3) Abnormal [facility] GLUCOSE (AUTOMATED)2024-06-29 12:45:39* Test Item Value Reference Range Interpretation Comme nts POCT GLU (test code = 0660342665) 242 mg/dL 70-110 H Lab Interpretation (test cod e = 48591-1) Abnormal [facility] GLUCOSE (AUTOMATED)2024-06-29 02:41:42* Test Item Value Reference Range Interpretation Comme nts POCT GLU (test code = 6680544336) 218 mg/dL 70-110 H Lab Interpretation (test cod e = 38591-0) Abnormal [facility] GLUCOSE (AUTOMATED)2024-06-28 22:50:05* Test Item Value Reference Range Interpretation Comme nts POCT GLU (test code = 1382999303) 162 mg/dL 70-110 H Lab Interpretation (test cod e = 82893-1) Abnormal [facility] GLUCOSE (AUTOMATED)2024-06-28 21:57:09* Test Item Value Reference Range Interpretation Comme nts POCT GLU (test code = 2629261838) 121 mg/dL 70-110 H Lab Interpretation (test cod e = 15324-3) Abnormal [facility] GLUCOSE (AUTOMATED)2024-06-28 16:58:11* Test Item Value Reference Range Interpretation Comme nts POCT GLU (test code = 6236051282) 255 mg/dL 70-110 H Lab Interpretation (test cod e = 94450-6) Abnormal [facility] GLUCOSE (AUTOMATED)2024-06-28 13:03:41* Test Item Value Reference Range Interpretation Comme nts POCT GLU (test code = 2724855860) 152 mg/dL 70-110 H Lab Interpretation (test cod e = 60846-7) Abnormal [facility] GLUCOSE (AUTOMATED)2024-06-28 05:08:20* Test Item Value Reference Range Interpretation Comme nts POCT GLU (test code = 1432451535) 195 mg/dL 70-110 H Lab Interpretation (test cod e = 02002-5) Abnormal [facility] GLUCOSE (AUTOMATED)2024-06-28 02:11:33* Test Item Value Reference Range Interpretation Comme nts POCT GLU (test code = 7265831906) 321 mg/dL 70-110 H Lab Interpretation (test cod e = 88064-4) [facility] [id number] 22:39:10ORDERING PHYSICIAN: KIMMIE SANDRA. HISTORY: L PICC placement TECHNIQUE: AP COMPARISON: 06/19/2024 radiograph report FINDINGS: Lungs: ?A left PICC line terminates at the cavoatrial junction. Lungs areclear. Pleura: ?No effusion or pleural disease is seen. ?No pneumothorax. Mediastinum/Daysi: ?No massesor adenopathy. Heart: ?The heart is not enlarged. Other: ?No acute osseous abnormality is seen.[facility] GLUCOSE (AUTOMATED)2024-06-27 21:59:58* Test Item Value Reference Range Interpretation Comme nts POCT GLU (test code = 2133880373) 196 mg/dL 70-110 H Lab Interpretation (test cod e = 83202-6) [facility]2024-06-27 21:33:03 * Test Item Value Reference Range Interpretation Comme nts Height (test code = 5022041089) 70 in Weight (test code = 9561016632) 195 lbs Systolic BP (test code = 3271237247) 124 mmHg Diastolic BP (test code = 7909182899) 63 mmHg Heart Rate (test code = 3564294276) 64 bpm BSA (test code = 7029687095) 2.06 m2 Radiology Study observation (narrative) (test code = 87122-8) RJ (test code = RJ) ?Left?Ventricle: Left ventricle size is normal. ?Left?Atrium: Left atrium size is normal. Saline contrast shows no shunt. Atrial septal aneurysm present. No thrombus in left atrial appendage. ?Aortic?Valve: Tricuspid. There is a tiny mobile mass attached to the ventricular side of the leaflet. Left VentricleLeft ventricle size is normal. Normal systolic function with a visually estimated EF of 60 - 65%.Right VentricleRight ventricle size is normal. Normal systolic function.Left AtriumLeft atrium size is normal. Saline contrast shows no shunt. Atrial septal aneurysm present. Normal appendage flow velocity. No thrombus in left atrial appendage.Right AtriumRight atrium size is normal. Catheter present in the right atrium.IVC/SVCIVC diameter is less than or equal to 21 mm and decreases greater than 50% during inspiration; therefore the estimated right atrial pressure is normal (~0-5 mmHg). Catheter present in the SVC.Mitral ValveMildly thickened leaflets. Mild mitral annular calcification.Tricuspid ValveTricuspid valve structure is normal. Insufficient tricuspid regurgitation jet to estimate RVSP .Aortic ValveTricuspid. There is a tiny mobile mass attached to the ventricular side of the leaflet.Pulmonic ValveValve structure is grossly normal.Ascending AortaNormal sized aorta.PericardiumThe pericardium is normal. No pericardial effusion.Study DetailsA complete transesophageal echocardiogram was performed using complete 2D, color flow Doppler and spectral Doppler. During the study the esophageal, transgastric and descending thoracic views were captured.Saline contrast was used to rule out intra cardiac shunt. The probe was inserted by the storage solutions architect. There was no probe insertion difficulty.There were 1 attempts to insert the probe. Probe in 1216. Probe out 1229. Sedation and monitoring provided by anesthesia, see Epic documentation. There were no complications during the procedure. [facility] 19:49:24* Test Item Value Reference Range Interpretation Comme nts POCT GLU (test code = 6011405761) 184 mg/dL 70-110 H Lab Interpretation (test cod e = 55827-9) [facility] 16:43:02* Test Item Value Reference Range Interpretation Comme nts POCT GLU (test code = 2059569253) 172 mg/dL 70-110 H Lab Interpretation (test cod e = 21924-3) [facility]24-[facility]-27 14:14:12* Test Item Value Reference Range Interpretation Comme nts POCT GLU (test code = 0766112458) 131 mg/dL 70-110 H Lab Interpretation (test cod e = 97728-4) Abnormal [facility] GLUCOSE (AUTOMATED)2024-06-27 13:27:58* Test Item Value Reference Range Interpretation Comme nts POCT GLU (test code = 7227289959) 135 mg/dL 70-110 H Lab Interpretation (test cod e = 99963-8) Abnormal [facility] GLUCOSE (AUTOMATED)2024-06-27 01:38:29* Test Item Value Reference Range Interpretation Comme nts POCT GLU (test code = 6874669921) 125 mg/dL 70-110 H Lab Interpretation (test cod e = 24698-7) Abnormal [facility] GLUCOSE (AUTOMATED)2024-06-26 22:04:43* Test Item Value Reference Range Interpretation Comme nts POCT GLU (test code = 8155595290) 195 mg/dL 70-110 H Lab Interpretation (test cod e = 77279-5) Abnormal [facility] GLUCOSE (AUTOMATED)2024-06-26 17:27:34* Test Item Value Reference Range Interpretation Comme nts POCT GLU (test code = 7220713227) 181 mg/dL 70-110 H Lab Interpretation (test cod e = 77349-9) Abnormal [facility] GLUCOSE (AUTOMATED)2024-06-26 13:21:13* Test Item Value Reference Range Interpretation Comme nts POCT GLU (test code = 0158192727) 109 mg/dL 70-110 Lab Interpretation (test cod e = 60594-0) Normal [facility] GLUCOSE (AUTOMATED)2024-06-26 02:30:05* Test Item Value Reference Range Interpretation Comme nts POCT GLU (test code = 9338062444) 146 mg/dL 70-110 H Lab Interpretation (test cod e = 53011-6) Abnormal [facility] GLUCOSE (AUTOMATED)2024-06-25 21:46:31* Test Item Value Reference Range Interpretation Comme nts POCT GLU (test code = 9216627256) 99 mg/dL 70-110 Lab Interpretation (test cod e = 92124-9) Normal [facility] GLUCOSE (AUTOMATED)2024-06-25 16:57:02* Test Item Value Reference Range Interpretation Comme nts POCT GLU (test code = 1837274350) 147 mg/dL 70-110 H Lab Interpretation (test cod e = 03185-1) Abnormal [facility] GLUCOSE (AUTOMATED)2024-06-25 13:21:57* Test Item Value Reference Range Interpretation Comme nts POCT GLU (test code = 9725912557) 123 mg/dL 70-110 H Lab Interpretation (test cod e = 33111-5) Abnormal [facility] GLUCOSE (AUTOMATED)2024-06-25 00:59:00* Test Item Value Reference Range Interpretation Comme nts POCT GLU (test code = 6072423344) 144 mg/dL 70-110 H Lab Interpretation (test cod e = 06394-1) Abnormal [facility] GLUCOSE (AUTOMATED)2024-06-24 22:08:33* Test Item Value Reference Range Interpretation Comme nts POCT GLU (test code = 3156054517) 162 mg/dL 70-110 H Lab Interpretation (test cod e = 69687-9) Abnormal [facility] GLUCOSE (AUTOMATED)2024-06-24 17:10:12* Test Item Value Reference Range Interpretation Comme nts POCT GLU (test code = 7033950447) 187 mg/dL 70-110 H Lab Interpretation (test cod e = 37302-3) Abnormal [facility] GLUCOSE (AUTOMATED)2024-06-24 13:28:01* Test Item Value Reference Range Interpretation Comme nts POCT GLU (test code = 1144974132) 160 mg/dL 70-110 H Lab Interpretation (test cod e = 16643-3) Abnormal [facility] GLUCOSE (AUTOMATED)2024-06-24 01:00:38* Test Item Value Reference Range Interpretation Comme nts POCT GLU (test code = 2186561478) 95 mg/dL 70-110 Lab Interpretation (test cod e = 18788-8) Normal [facility].2024-06-23 22:45:24* Test Item Value Reference Range Interpretation Comme [facility] PH (test code = 2) 7.42 7.35-7.45 PCO2 (test code = 2978062954) 42 35-45 PO2 (test code = 9989034592) 90 80-100 HCO3 (test code = 4866123447) 27 22-26 H BE (test code = 6402427538) 2.3 -3.0-3.0 Lab Interpretation (test cod e = 83552-3) [facility]normal [facility] ([facility] [id number] 22:12:07* Test Item Value Reference Range Interpretation Comme nts Height (test code = 1142881882) 70 in Weight (test code = 4706006099) 202 lbs Systolic BP (test code = 9268136065) 187 mmHg Diastolic BP (test code = 8751138505) 89 mmHg Heart Rate (test code = 7090612842) 84 bpm LV GLS Endo Peak A2C () (test code = 4583770326) -22.00 % LV GLS Endo Peak A3C () (test code = 2450400071) -20.60 % LV GLS Endo Peak A4C () (test code = 6219114060) -24.20 % LV GLS Endo Peak Avg () (test code = 4812577083) -22.30 % BSA (test code = 6082943280) 2.10 m2 Ao root diam (test code = 9052517975) 4.10 cm Aortic root (test code = 1763312159) 4.1 cm Ao root annulus (test code = 2705485848) 4.1 cm LVOT diameter (test code = 4941409126) 2.02 cm LVOT area (test code = 6103025216) 3.20 cm2 LA size (test code = 4111895323) 2.9 cm LVIDD (test code = 4598652694) 4.20 cm Left Ventricular End Diastolic Volume by Teichholz Method (test code = 9390628) 77.8 mL IVS (test code = 4133238216) 0.97 cm Interventricular Septum Diastolic Thickness by 2D (test code = 6209453) 0.97 cm LVPWD (test code = 6266663356) 0.99 cm PW (test code = 3842268699) 0.99 cm 0.6-1.1 EF(Teich) (test code = 2419747535) 63.90 % LVIDS (test code = 0981157037) 2.70 cm Left Ventricular End Systolic Volume by Teichholz Method (test code = 6289198) 28.1 mL FS (test code = 3317536388) 34 % EF - 2D (test code = 87010662) 63.90 % LAV(MOD-sp4) (test code = 1167118844) 70.90 mL E wave decelartion time (test code = 4464604318) 0.25 s MV Peak A Delfino (test code = 9626641376) 117.4 cm/s MV stenosis pressure 1/2 time (test code = 2483827898) 71.2 ms MV Prop V (test code = 3184855112) 40.80 cm/s MV E/e' septal (test code = 8087023375) 8.2 cm/s Tapse (test code = 3875070090) 2.09 cm LVOT stroke volume (test code = 6356858980) 94.10 cm3 LVOT peak delfino (test code = 9454959665) 126.8 cm/s LVOT mn grad (test code = 6660978714) 3.4 mmHg AV LVOT peak gradient (test code = 1186402796) 6.4 mmHg LVOT peak VTI (test code = 6110626065) 29.4 cm LV V1 mean (test code = 0653639729) 87.90 cm/s Aortic valve mean velocity (test code = 3038680835) 102.8 cm/s Ao peak delfino (test code = 7121864772) 154.7 cm/s Ao VTI (test code = 1841328883) 32.2 cm AV area by cont VTI (test code = 2326515079) 2.9 cm2 AV area peak delfino (test code = 4638595910) 2.6 cm2 Ao max PG (test code = 0555570886) 9.60 mm[Hg] AV peak gradient (test code = 7978009457) 9.6 mmHg AV valve area (test code = 5021980227) 2.90 cm2 AV mean gradient (test code = 0921260537) 4.7 mmHg Radiology Study observation (narrative) (test code = 68470-8) RJ (test code = RJ) ?Left?Ventricle: Left ventricle size is normal. Mild basal septal thickening. Normal wall motion. Normal systolic function with a visually estimated EF of 55 - 60%. GLS -22.3%. There is impaired relaxation. ?Right?Ventricle: Right ventricle size is normal. Normal systolic function. ?Tricuspid?Valve: Insufficient tricuspid regurgitation jet to estimate RVSP . ?IVC/SVC: IVC normal in size. Left VentricleLeft ventricle size is normal. Mild basal septal thickening. Normal wall motion. Normal systolic function with a visually estimated EF of 55 - 60%. GLS -22.3%. There is impaired relaxation.Right VentricleRight ventricle size is normal. Normal systolic function.Left AtriumLeft atrium size is normal.Right AtriumRight atrium size is normal.IVC/SVCIVC normal in size.Mitral ValveMild mitral annular calcification. Trace transvalvular regurgitation.Tricusp id ValveTricuspid valve structure is normal. Trace transvalvular regurgitation. Insufficient tricuspid regurgitation jet to estimate RVSP .Aortic ValveTricuspid.Pulmon ic ValveNot well visualized.Ascending AortaNormal sized aorta.PericardiumThe pericardium is normal. No pericardial effusion.Study DetailsStudy quality was adequate. A complete echocardiogram was performed using 2D, color flow Doppler, spectral Doppler and strain. [facility]24-[facility] 22:04:17* Test Item Value Reference Range Interpretation Comme [facility] POCT GLU (test code = 4284120344) 120 mg/dL 70-110 H Lab Interpretation (test cod e = 30393-8) [facility]normal [facility] Center[facility]cosylated Hemoglobin (A1C)2024-06-23 19:21:32* Test Item Value Reference Range Interpretation Comme [facility] HGB A1C (test code = 4548-4) 7.5 % 4.0-5.7 H RJ (test code = RJ) Reference RangesNormal: <5.7%Prediabetes: 5.7 - 6.4%Diabetes: > 6.5% Lab Interpretation (test code = 80487-6) [facility]normal [facility] WO [id number] 18:09:29CT CERVICAL SPINE WO CONTRAST HISTORY: ?Neck trauma (Age >= 65y) COMPARISON: CT cervical spine 04/03/2024 TECHNIQUE: Axial CT of the cervical spine was performed. Coronal andsagittal reformatted images were generated. FINDINGS: Straightening of the cervical lordosis. The vertebral bodies are renetta l inheight and in normal alignment. No facet fracture or subluxation ispresent. The craniocervical junction is intact. Degenerative changes of thecervical spine most notable at C5-C7. The prevertebral soft tissues areunremarkable.[facility]CT [facility] [id number] 18:05:47EXAM: CT HEAD WO CONTRAST HISTORY: 69 years-old Male; Provided indication: Head trauma, minor (Age >=65y) . TECHNIQUE: Axial CT of the head was performed and reconstructed at 5 mmintervals. Coronal and sagittal reformatted images were generated. COMPARISON: CT head 06/16/2024 FINDINGS: The ventricles and cerebral sulci are within normal limits for patient'jayleen. No hydrocephalus. No midline shift or pathological extra-axial fluidcollection is present. The basal cisterns are unremarkable. No acute intracranial hemorrhage or significant mass effect is visualized.Periventricular hypodensities, nonspecific finding, likely reflect chronicmicrovascular ischemic changes.. The vazquez-white matter differentiation ispreserved. The mastoid air cells and paranasal air sinuses are clear. Leftfrontoparietal scalp contusion/small hematoma. calvarium and central skullbase are unremarkable.[facility] CenterTroponin I 2024-06-23 17:58:20* Test Item Value Reference Range Interpretation Comme nts TROPONIN I (test code = 8225630600) <=0.034 RJ (test code = RJ) Reference [...] of biotin. Lab Interpretation (test code = 02249-1) Normal [facility] CenterN-Terminal Ful-Jre1229-27-01 17:55:37* Test Item Value Reference Range Interpretation Comme nts NT-proBNP (test code = 43218-6) 257 pg/mL <=125 RJ (test code = RJ) Result Indeterminate-Consid er causes of NT-proBNP elevation other than Heart failure such as acute coronary syndrome, pulmonary embolism, pulmonary hypertension, sepsis, stroke, and renal dysfunction. Lab Interpretation (test code = 03947-7) [facility]normal [facility] CenterProthrombin Time / [id number] 17:48:39* Test Item Value Reference Range Interpretation Comme [facility] PROTIME PATIENT (test code = 5964-2) 12.8 10.1-12.6 H INR (test code = 6301-6) 1.1 Normal INR <1.1; Warfarin Therapeutic range 2.0 to 3.0 or 2.5 to 3.5, depending upon the indications. Lab Interpretation (test code = 70447-1) [facility]normal [facility] CenterActivated Partial Thrmplas [id number] 17:48:39* Test Item Value Reference Range Interpretation Comme [facility] APTT Patient (test code = 3173-2) 32 26-36 RJ (test code = RJ) The [facility] patient population mean normal value for aPTT is 30 seconds. Lab Interpretation (test code = 83452-6) Normal [facility] CenterComp. Metabolic Panel (02176)2024-06-23 17:46:57* Test Item Value Reference Range Interpretation Comme nts NA (test code = 6246777129) 139 mmol/L 135-145 K (test code = 4712059502) 3.5 3.5-5.0 CL (test code = 9602247138) 102 mmol/L 98-108 CO2 TOTAL (test code = 0130461112) 27 mmol/L 23-31 AGAP (test code = 2284221848) 10 2-16 BUN (test code = 5085129954) 25 mg/dL 7-23 H GLUCOSE (test code = 5656040040) 242 mg/dL 70-110 H CREATININE (test code = 2160-0) 1.00 mg/dL 0.60-1.25 TOTAL BILI (test code = 3627504379) 0.5 mg/dL 0.1-1.1 CALCIUM (test code = 0481454585) 8.8 mg/dL 8.6-10.6 T PROTEIN (test code = 9740388205) 7.3 g/dL 6.3-8.2 ALBUMIN (test code = 7536842435) 3.9 g/dL 3.5-5.0 ALK PHOS (test code = 7167598098) 141 U/L 34-122 H ALTv (test code = 1742-6) 16 U/L 5-50 AST(SGOT) (test code = 7167774643) 24 U/L 13-40 eGFR (test code = 49162-0) 81.0 mL/min/1.73m2 CKD-EPI eGFR (2020). Assuming creatinine has been stable day-to-day for at least three months, the eGFR indicates Category G2 (60 - 89 mL/min/1.73 m2) Lab Interpretation (test code = 34750-7) Abnormal [facility] with Vafj7814-33-35 17:38:39* Test Item Value Reference Range Interpretation Comme nts WBC (test code = 6690-2) 9.00 4.20-10.70 RBC (test code = 789-8) 4.51 4.26-5.52 HGB (test code = 718-7) 12.7 g/dL 12.2-16.4 HCT (test code = 4544-3) 40.2 % 38.4-49.3 MCV (test code = 787-2) 89.1 fL 81.7-95.6 MCH (test code = 785-6) 28.2 pg 26.1-32.7 MCHC (test code = 786-4) 31.6 g/dL 31.2-35.0 RDW-SD (test code = 73243-5) 44.2 fL 38.5-51.6 RDW-CV (test code = 788-0) 13.5 % 12.1-15.4 PLT (test code = 777-3) 346 150-328 H MPV (test code = 57796-9) 9.4 fL 9.8-13.0 L NRBC/100 WBC (test code = 0650238907) 0.0 0.0-10.0 NRBC x10^3 (test code = 1356128752) See_Comment [Automated messa ge] The system which generated this result transmitted reference range: 10*3/?L. The reference range was not used to interpret this result as normal/abnormal. GRAN MAT (NEUT) % (test code = 770-8) 74.6 % IMM GRAN % (test code = 4035807157) 1.00 % LYMPH % (test code = 736-9) 15.2 % MONO % (test code = 5905-5) 7.7 % EOS % (test code = 713-8) 1.2 % BASO % (test code = 706-2) 0.3 % GRAN MAT x10^3(ANC) (test code = 1760434096) 6.71 10*3/uL 1.99-6.95 IMM GRAN x10^3 (test code = 3289253105) 0.09 10*3/uL 0.00-0.06 H LYMPH x10^3 (test code = 731-0) 1.37 10*3/uL 1.09-3.23 MONO x10^3 (test code = 742-7) 0.69 10*3/uL 0.36-1.02 EOS x10^3 (test code = 711-2) 0.11 10*3/uL 0.06-0.53 BASO x10^3 (test code = 704-7) 0.03 10*3/uL 0.01-0.09 Lab Interpretation (test code = 42915-2) [facility]normal [facility] CenterLactic Acid Whole Twlbq6025-11-70 17:16:12* Test Item Value Reference Range Interpretation Comme nts LACTIC ACID (test code = 1900521069) 1.94 mmol/L 0.50-2.20 Lab Interpretation (test cod e = 54681-4) Normal [facility] CenterBLOOD CULTURE [id number] 13:27:56* Test Item Value Reference Range Interpretation Comme nts Blood Culture-Aerobic (test code = 14891-6) Culture positive. See Blood Culture Workup for additional information. No growth AA Previous preliminary verified result was Order in Process on 06/19/2024 at 1801 CDT Blood Culture-Anaerobic (test code = 45944-6) Culture positive. See Blood Culture Workup for additional information. No growth AA Previous preliminary verified result was Order in Process on 06/19/2024 at 1801 CDT Lab Interpretation (test code = 12980-4) Abnormal [facility] CenterGRAM POSITIVE BLOOD PATHOGENS DNA PNJKM-ASKTXCZTE1519-78-29 19:17:54* Test Item Value Reference Range Interpretation Comments Staphylococcus aureus (test code = 80625-7) Positive Negative A mecA (test code = 47934-2) Positive Negative A RJ (test code = RJ) MRSA detected by DNA probe. ?See blood culture result for additionalsusceptibility testing information. Preferred therapy for MRSA bacteremia is vancomycin. Infectious Diseases consultation is recommended. Please contact the Antimicrobial Stewardship Program with questions.[facility] Pager: ?[phone] See blood culture result for additional information. Testing included eleven identification and three resistancemarker targets. Lab Interpretation (test code = 30798-7) Abnormal [facility] GLUCOSE (AUTOMATED)2024-06-19 21:59:53* Test Item Value Reference Range Interpretation Comme nts POCT GLU (test code = 6012328470) 93 mg/dL 70-110 Lab Interpretation (test cod e = 41547-6) Normal [facility] GLUCOSE (AUTOMATED)2024-06-19 21:29:59* Test Item Value Reference Range Interpretation Comme nts POCT GLU (test code = 7467527356) 58 mg/dL 70-110 L Lab Interpretation (test cod e = 78289-1) [facility]normal [facility] CenterN-Terminal Qkz-Xka6184-59-28 20:03:23* Test Item Value Reference Range Interpretation Comme nts NT-proBNP (test code = 01411-2) 269 pg/mL <=125 RJ (test code = RJ) Result Indeterminate-Consid er causes of NT-proBNP elevation other than Heart failure such as acute coronary syndrome, pulmonary embolism, pulmonary hypertension, sepsis, stroke, and renal dysfunction. Lab Interpretation (test code = 71057-0) [facility]normal [facility] CenterComp. Metabolic Panel (03817)2024-06-19 19:54:20* Test Item Value Reference Range Interpretation Comme nts NA (test code = 1877232723) 139 mmol/L 135-145 K (test code = 9451917902) 3.7 mmol/L 3.5-5.0 CL (test code = 2681954287) 104 mmol/L 98-108 CO2 TOTAL (test code = 4836893605) 29 mmol/L 23-31 AGAP (test code = 4955533936) 6 2-16 BUN (test code = 5948678842) 20 mg/dL 7-23 GLUCOSE (test code = 5732053291) 70 mg/dL 70-110 CREATININE (test code = 2160-0) 0.94 mg/dL 0.60-1.25 TOTAL BILI (test code = 6297239241) 1.0 mg/dL 0.1-1.1 CALCIUM (test code = 3214630022) 8.9 mg/dL 8.6-10.6 T PROTEIN (test code = 0721317687) 7.1 g/dL 6.3-8.2 ALBUMIN (test code = 4458094188) 3.5 g/dL 3.5-5.0 ALK PHOS (test code = 6981010632) 136 U/L 34-122 H ALTv (test code = 1742-6) 14 U/L 5-50 AST(SGOT) (test code = 1592307162) 29 U/L 13-40 eGFR (test code = 08893-7) 87.2 mL/min/1.73m2 CKD-EPI eGFR (2020). Assuming creatinine has been stable day-to-day for at least three months, the eGFR indicates Category G2 (60 - 89 mL/min/1.73 m2) Lab Interpretation (test code = 11796-2) [facility]normal [facility] CenterXR CHEST 1 [id number] 19:34:26PROCEDURE: XR CHEST 1 VW 06/19/2024 2:07 PM CLINICAL INDICATION: hallucination COMPARISON: Radiograph of 04/03/2023 for FINDINGS: The lungs are hypoventilated which results and crowding of bronchovascularbundles. No lung consolidation. There is no pleural effusion. ?Nopneumothorax. The cardiac size is normal. No aggressive osseous lesion.[facility] with Yamx6268-45-83 19:29:38* Test Item Value Reference Range Interpretation Comme nts WBC (test code = 6690-2) 9.08 4.20-10.70 RBC (test code = 789-8) 4.30 4.26-5.52 HGB (test code = 718-7) 12.4 g/dL 12.2-16.4 HCT (test code = 4544-3) 37.9 % 38.4-49.3 L MCV (test code = 787-2) 88.1 fL 81.7-95.6 MCH (test code = 785-6) 28.8 pg 26.1-32.7 MCHC (test code = 786-4) 32.7 g/dL 31.2-35.0 RDW-SD (test code = 99514-6) 43.8 fL 38.5-51.6 RDW-CV (test code = 788-0) 13.5 % 12.1-15.4 PLT (test code = 777-3) 300 150-328 MPV (test code = 15673-8) 9.5 fL 9.8-13.0 L NRBC/100 WBC (test code = 0369057570) 0.0 0.0-10.0 NRBC x10^3 (test code = 2213220624) See_Comment [Automated messa ge] The system which generated this result transmitted reference range: 10*3/?L. The reference range was not used to interpret this result as normal/abnormal. GRAN MAT (NEUT) % (test code = 770-8) 76.5 % IMM GRAN % (test code = 1174669104) 0.70 % LYMPH % (test code = 736-9) 12.6 % MONO % (test code = 5905-5) 8.4 % EOS % (test code = 713-8) 1.4 % BASO % (test code = 706-2) 0.4 % GRAN MAT x10^3(ANC) (test code = 1297341543) 6.95 10*3/uL 1.99-6.95 IMM GRAN x10^3 (test code = 9759526831) 0.06 10*3/uL 0.00-0.06 LYMPH x10^3 (test code = 731-0) 1.14 10*3/uL 1.09-3.23 MONO x10^3 (test code = 742-7) 0.76 10*3/uL 0.36-1.02 EOS x10^3 (test code = 711-2) 0.13 10*3/uL 0.06-0.53 BASO x10^3 (test code = 704-7) 0.04 10*3/uL 0.01-0.09 Lab Interpretation (test code = 23331-0) Abnormal [facility] CenterLactic Acid Whole Tteyv3509-97-08 19:15:48* Test Item Value Reference Range Interpretation Comme nts LACTIC ACID (test code = 8402203428) 1.12 mmol/L 0.50-2.20 Lab Interpretation (test cod e = 44134-7) Normal [facility] CenterCT HEAD WO [id number] 00:30:51FULL RESULT: Examination: CT HEAD WO CONTRAST on 06/16/2024 7:03 PM Clinical Indication: Daily fallsComparison: 06/15/2024, 24 hour prior Technique: Noncontrast imaging was obtained from base to vertex. Findings: Relative to the previous day's exam, there is no interval changeand no evidence of hemorrhage or other acute or traumatic lesion.[facility]. Metabolic Panel (19881)2024-06-16 00:49:02* Test Item Value Reference Range Interpretation Comme nts NA (test code = 9464347431) 136 mmol/L 135-145 K (test code = 7627675178) 4.2 mmol/L 3.5-5.0 CL (test code = 5420299717) 103 mmol/L 98-108 CO2 TOTAL (test code = 1353125503) 28 mmol/L 23-31 AGAP (test code = 5792801716) 5 2-16 BUN (test code = 6285579574) 21 mg/dL 7-23 GLUCOSE (test code = 5581243532) 88 mg/dL 70-110 CREATININE (test code = 2160-0) 0.97 mg/dL 0.60-1.25 TOTAL BILI (test code = 8805262232) 1.0 mg/dL 0.1-1.1 CALCIUM (test code = 0519657530) 8.6 mg/dL 8.6-10.6 T PROTEIN (test code = 1136761215) 6.8 g/dL 6.3-8.2 ALBUMIN (test code = 0113895085) 3.4 g/dL 3.5-5.0 L ALK PHOS (test code = 1536692812) 141 U/L 34-122 H ALTv (test code = 1742-6) 14 U/L 5-50 AST(SGOT) (test code = 7413547399) 23 U/L 13-40 eGFR (test code = 35716-0) 84.0 mL/min/1.73m2 CKD-EPI eGFR (2020). Assuming creatinine has been stable day-to-day for at least three months, the eGFR indicates Category G2 (60 - 89 mL/min/1.73 m2) Lab Interpretation (test code = 27406-8) [facility]normal [facility] CenterD-Ouxtq7546-24-30 00:45:25* Test Item Value Reference Range Interpretation Comments D-DIMER (test code = 1544328811) 1.38 See_Comment H [Automated message] The system which generated this result transmitted reference range: <0.50 ?g/mL (FEU). The reference range was not used to interpret this result as normal/abnormal. RJ (test code = RJ) This test may be used in conjunction with a clinical pretest probability (PTP) assessment model to exclude venous thromboembolism (VTE) in patients suspected of deep venous thrombosis (DVT) and pulmonary embolism (PE) A D-Dimer value less than 0.50 ?g/ml (FEU) has a negative predicative value of 96 to 100% (95% CI)and 97 to 100% (95% CI) as an aid in the diagnosis of deep vein thrombosis (DVT) and pulmonary embolism when there is low or moderate pretest probability of PE or DVT. D-Dimer values are expressed in initial fibrinogen equivalent units (FEU)" The assay results should be used with other information, including the clinical context, in forming a diagnosis. Lab Interpretation (test code = 06702-2) Abnormal [facility] with Vsbf6184-82-93 00:34:02* Test Item Value Reference Range Interpretation Comme nts WBC (test code = 6690-2) 10.58 4.20-10.70 RBC (test code = 789-8) 4.14 4.26-5.52 L HGB (test code = 718-7) 12.1 g/dL 12.2-16.4 L HCT (test code = 4544-3) 36.6 % 38.4-49.3 L MCV (test code = 787-2) 88.4 fL 81.7-95.6 MCH (test code = 785-6) 29.2 pg 26.1-32.7 MCHC (test code = 786-4) 33.1 g/dL 31.2-35.0 RDW-SD (test code = 73890-8) 43.0 fL 38.5-51.6 RDW-CV (test code = 788-0) 13.2 % 12.1-15.4 PLT (test code = 777-3) 241 150-328 MPV (test code = 68997-6) 9.6 fL 9.8-13.0 L NRBC/100 WBC (test code = 8221120611) 0.0 0.0-10.0 NRBC x10^3 (test code = 0113109446) See_Comment [Automated [employer] ge] The system which generated this result transmitted reference range: 10*3/?L. The reference range was not used to interpret this result as normal/abnormal. GRAN MAT (NEUT) % (test code = 770-8) 77.2 % IMM GRAN % (test code = 9814520101) 0.40 % LYMPH % (test code = 736-9) 11.2 % MONO % (test code = 5905-5) 10.1 % EOS % (test code = 713-8) 0.9 % BASO % (test code = 706-2) 0.2 % GRAN MAT x10^3(ANC) (test code = 2278207417) 8.18 10*3/uL 1.99-6.95 H IMM GRAN x10^3 (test code = 3520040921) 0.04 10*3/uL 0.00-0.06 LYMPH x10^3 (test code = 731-0) 1.18 10*3/uL 1.09-3.23 MONO x10^3 (test code = 742-7) 1.07 10*3/uL 0.36-1.02 H EOS x10^3 (test code = 711-2) 0.09 10*3/uL 0.06-0.53 BASO x10^3 (test code = 704-7) 0.01-0.09 Lab Interpretation (test code = 57497-8) [facility]normal [facility] CenterLatnic Acid Whole Cwatu3953-90-28 00:22:09* Test Item Value Reference Range Interpretation Comme nts LACTIC ACID (test code = 6005499932) 1.33 mmol/L 0.50-2.20 Lab Interpretation (test cod e = 43325-2) Normal [facility] HEAD WO [id number] 23:53:17EXAM: CT HEAD WO CONTRAST HISTORY: 69 years-old Male; Provided indication: Head trauma, minor (Age >=65y) . TECHNIQUE: Axial CT of the head was performed and reconstructed at 5 mmintervals. Coronal and sagittal reformatted images were generated. COMPARISON: CT head 04/03/2024 FINDINGS: The ventricles and cerebral sulci are normal in caliber and configuration.No midline shift or pathological extra-axial fluid collection is present.The basal cisterns are unremarkable. No acute intracranial hemorrhage or significant mass effect is visualized.No significant parenchymal attenuation abnormality is seen. The vazquez-whitematter differentiation is preserved. The mastoid air cells and paranasal air sinuses are clear. The calvariumand central skull base are unremarkable.[facility] GLUCOSE (AUTOMATED)2024-04-06 10:12:31* Test Item Value Reference Range Interpretation Comme nts POCT GLU (test code = 6421627302) 254 mg/dL 70-110 H Lab Interpretation (test cod e = 45719-0) Abnormal [facility] GLUCOSE (AUTOMATED)2024-04-06 09:35:12* Test Item Value Reference Range Interpretation Comme nts POCT GLU (test code = 8340717534) 349 mg/dL 70-110 H Lab Interpretation (test cod e = 94431-6) Abnormal [facility] GLUCOSE (AUTOMATED)2024-04-06 08:34:06* Test Item Value Reference Range Interpretation Comme nts POCT GLU (test code = 7015142208) 299 mg/dL 70-110 H Lab Interpretation (test cod e = 00101-7) Abnormal [facility] GLUCOSE (AUTOMATED)2024-04-06 07:58:40* Test Item Value Reference Range Interpretation Comme nts POCT GLU (test code = 2733301813) 446 mg/dL 70-110 H Lab Interpretation (test cod e = 12574-9) Abnormal [facility]. Metabolic Panel (24416)2024-04-06 07:47:06* Test Item Value Reference Range Interpretation Comme nts NA (test code = 6445577085) 126 mmol/L 135-145 L K (test code = 7305206254) 4.4 mmol/L 3.5-5.0 CL (test code = 6166209895) 93 mmol/L 98-108 L CO2 TOTAL (test code = 2699102263) 27 mmol/L 23-31 AGAP (test code = 1994723951) 6 2-16 BUN (test code = 1177212739) 21 mg/dL 7-23 GLUCOSE (test code = 9497896733) 518 mg/dL 70-110 HH CREATININE (test code = 2160-0) 1.08 mg/dL 0.60-1.25 TOTAL BILI (test code = 4269639057) 0.7 mg/dL 0.1-1.1 CALCIUM (test code = 7768250580) 8.1 mg/dL 8.6-10.6 L T PROTEIN (test code = 7745767524) 6.6 g/dL 6.3-8.2 ALBUMIN (test code = 0389304284) 3.5 g/dL 3.5-5.0 ALK PHOS (test code = 9994149693) 160 U/L 34-122 H ALTv (test code = 1742-6) 15 U/L 5-50 AST(SGOT) (test code = 4664889241) 33 U/L 13-40 eGFR (test code = 38842-0) 73.8 mL/min/1.73m2 CKD-EPI eGFR (2020). Assuming creatinine has been stable day-to-day for at least three months, the eGFR indicates Category G2 (60 - 89 mL/min/1.73 m2) Lab Interpretation (test code = 11047-3) [facility]normal [facility] CenterMagnesium2024-05-15 07:44:19* Test Item Value Reference Range Interpretation Comme nts MAGNESIUM (test code = 9000695537) 1.6 mg/dL 1.7-2.4 L Lab Interpretation (test cod e = 95974-0) [facility] CenterPOCT GLUCOSE (AUTOMATED)2024-04-06 07:36:55* Test Item Value Reference Range Interpretation Comme nts POCT GLU (test code = 0577404919) 476 mg/dL 70-110 HH Lab Interpretation (test cod e = 40649-6) Abnormal [facility] with Eeuk0522-48-06 07:23:19* Test Item Value Reference Range Interpretation [...] 34.6 g/dL 31.2-35.0 RDW-SD (test code = 95055-4) 39.8 fL 38.5-51.6 RDW-CV (test code = 788-0) 12.2 % 12.1-15.4 PLT (test code = 777-3) 251 150-328 MPV (test code = 39021-2) 10.5 fL 9.8-13.0 NRBC/100 WBC (test code = 6156430826) 0.0 0.0-10.0 NRBC x10^3 (test code = 7309977490) See_Comment [Automated [employer] ge] The system which generated this result transmitted reference range: 10*3/?L. The reference range was not used to interpret this result as normal/abnormal. GRAN MAT (NEUT) % (test code = 770-8) 76.0 % IMM GRAN % (test code = 0709317990) 0.90 % LYMPH % (test code = 736-9) 11.5 % MONO % (test code = 5905-5) 10.5 % EOS % (test code = 713-8) 0.8 % BASO % (test code = 706-2) 0.3 % GRAN MAT x10^3(ANC) (test code = 1454714853) 9.08 10*3/uL 1.99-6.95 H IMM GRAN x10^3 (test code = 2610123735) 0.11 10*3/uL 0.00-0.06 H LYMPH x10^3 (test code = 731-0) 1.38 10*3/uL 1.09-3.23 MONO x10^3 (test code = 742-7) 1.26 10*3/uL 0.36-1.02 H EOS x10^3 (test code = 711-2) 0.10 10*3/uL 0.06-0.53 BASO x10^3 (test code = 704-7) 0.04 10*3/uL 0.01-0.09 Lab Interpretation (test code = 83223-2) [facility] CenterPOCT GLU[facility]SE (AUTOMATED)2024-04-06 06:45:34* Test Item Value Reference Range Interpretation Comme nts POCT GLU (test code = 7373619397) 495 mg/dL 70-110 HH Lab Interpretation (test cod e = 58362-2) Abnormal [facility] HEAD WO [id number] 20:17:39EXAMS: CT HEAD WO CONTRAST, CT CERVICAL [...] facetarthropathy, most pronounced at C5-C6 and C6-C7, unchanged.[facility]CT CERV[facility] SPINE WO BUNPIDYH7188-28-20 20:17:39EXAMS: CT HEAD WO CONTRAST, CT CERVICAL [...] facetarthropathy, most pronounced at C5-C6 and C6-C7, unchanged.[facility] CenterAmmonia, Puxmbs3875-38-03 19:25:25* Test Item Value Reference Range Interpretation Comme nts AMMONIA (test code = 9300083020) 9-33 L Lab Interpretation (test cod e = 74758-9) [facility]normal [facility] CenterXR FOOT 3+ VW [id number] 17:22:17XR FOOT 3+ VW RIGHT 04/03/2024 10:15 AM History: r/o fx/osteo midfoot Comparison: None Findings: 3 views of the right foot are received for interpretation. There is no fracture or dislocation. Soft tissues are unremarkable. Thereare no radiopaque foreign bodies. Joint spaces are preserved.[facility] CenterXR [facility]+ VW [id number] 17:22:17XR FOOT 3+ VW RIGHT 04/03/2024 10:15 AM History: r/o fx/osteo midfoot Comparison: None Findings: 3 views of the right foot are received for interpretation. There is no fracture or dislocation. Soft tissues are unremarkable. Thereare no radiopaque foreign bodies. Joint spaces are preserved.[facility] CenterXR CHEST 1 [id number] 17:18:12 XR CHEST 1 VW HISTORY: ?r/o CHF/infiltrate COMPARISON: March 22, 2024 FINDINGS: The patient is slightly rotated on the film. ?There is noinfiltrate or pleural effusion. ?The cardiomediastinal silhouette is withinnormal limits. ?There is no pneumothorax.[facility] CenterTROPONIN [id number] 16:54:12* Test Item Value Reference Range Interpretation Comme nts TROPONIN I (test code = 7610488382) 0.006 ng/mL <=0.034 RJ (test code = [...] of biotin. Lab Interpretation (test code = 67429-7) Normal [facility] CenterN-TERMINAL KLA-KNJ3070-12-12 16:54:12* Test Item Value Reference Range Interpretation Comme nts NT-proBNP (test code = 76154-8) 302 pg/mL <=125 RJ (test code = RJ) Result Indeterminate-Consid er causes of NT-proBNP elevation other than Heart failure such as acute coronary syndrome, pulmonary embolism, pulmonary hypertension, sepsis, stroke, and renal dysfunction. Lab Interpretation (test code = 60350-8) [facility]normal [facility] CenterETHANOL2024-05-12 16:53:42 ALCOHOL<10mg/dL04/03/2024 11:53 AM CDTUTMB LABORATORY SERVICESToxic Greater than or equal to 80 mg/dL. NOTE: Whole blood values are approximately 10% to 15% lower than serum and plasma.[facility] CenterETHANOL2024-05-12 16:53:42ALCOHOL<10mg/dL04/03/2024 11:53 AM CDTUTMB LABORATORY SERVICESToxic Greater than or equal to 80 mg/dL. NOTE: Whole blood values are approximately 10% to 15% lower than serum and plasma.[facility] Creatine Yintkv9908-17-62 16:43:13* Test Item Value Reference Range Interpretation Comme nts CK (test code = 0644505047) 35 U/L 33-194 Lab Interpretation (test cod e = 87069-6) Normal [facility] 16:43:13* Test Item Value Reference Range Interpretation Comme nts PHOSPHORUS (test code = [id number]) 3.6 mg/dL 2.5-5.0 Lab Interpretation (test cod e = 33878-4) Normal [facility] 16:43:13* Test Item Value Reference Range Interpretation Comme nts PHOSPHORUS (test code = [id number]) 3.6 mg/dL 2.5-5.0 Lab Interpretation (test cod e = 97143-6) Normal [facility] [id number] 16:43:13* Test Item Value Reference Range Interpretation Comme nts CK (test code = 7289139671) 35 U/L 33-194 Lab Interpretation (test cod e = 73507-1) [facility] (07278)2024-04-03 16:43:12* Test Item Value Reference Range Interpretation Comme nts NA (test code = 7500339802) 132 mmol/L 135-145 L K (test code = 6908412247) 4.4 mmol/L 3.5-5.0 Slight hemolysis CL (test code = 7711675858) 97 mmol/L 98-108 L CO2 TOTAL (test code = 6613349807) 29 mmol/L 23-31 AGAP (test code = 7039776821) 6 2-16 BUN (test code = 4029897658) 17 mg/dL 7-23 Slight hemolysis GLUCOSE (test code = 1344176489) 353 mg/dL 70-110 H CREATININE (test code = 2160-0) 0.89 mg/dL 0.60-1.25 TOTAL BILI (test code = 2130501644) 0.9 mg/dL 0.1-1.1 CALCIUM (test code = 4510979555) 9.0 mg/dL 8.6-10.6 T PROTEIN (test code = 4999654419) 6.6 g/dL 6.3-8.2 ALBUMIN (test code = 5637823369) 3.7 g/dL 3.5-5.0 ALK PHOS (test code = 9693485810) 118 U/L 34-122 Slight hemolysis ALTv (test code = 1742-6) 14 U/L 5-50 AST(SGOT) (test code = 6070939973) 19 U/L 13-40 Slight hemolysis eGFR (test code = 17339-2) 92.2 mL/min/1.73m2 CKD-EPI eGFR (2020). Assuming creatinine has been stable day-to-day for at least three months, the eGFR indicates Category G1 (>= 90 mL/min/1.73 m2) Lab Interpretation (test code = 98380-5) [facility] Center[facility]esium2024-[facility] 16:43:12* Test Item Value Reference Range Interpretation Comme nts MAGNESIUM (test code = 5769562208) 1.6 mg/dL 1.7-2.4 L Lab Interpretation (test cod e = 50225-8) Abnormal [facility] WITH [id number] 16:35:09* Test Item Value Reference Range Interpretation [...] 34.0 g/dL 31.2-35.0 RDW-SD (test code = 38972-3) 39.7 fL 38.5-51.6 RDW-CV (test code = 788-0) 12.3 % 12.1-15.4 PLT (test code = 777-3) 258 150-328 MPV (test code = 53211-0) 10.0 fL 9.8-13.0 NRBC/100 WBC (test code = 7167039884) 0.0 0.0-10.0 NRBC x10^3 (test code = 9439635632) See_Comment [Automated messa ge] The system which generated this result transmitted reference range: 10*3/?L. The reference range was not used to interpret this result as normal/abnormal. GRAN MAT (NEUT) % (test code = 770-8) 81.2 % IMM GRAN % (test code = 7775047502) 0.70 % LYMPH % (test code = 736-9) 11.3 % MONO % (test code = 5905-5) 6.5 % EOS % (test code = 713-8) 0.1 % BASO % (test code = 706-2) 0.2 % GRAN MAT x10^3(ANC) (test code = 8341053081) 9.37 10*3/uL 1.99-6.95 H IMM GRAN x10^3 (test code = 3664072971) 0.08 10*3/uL 0.00-0.06 H LYMPH x10^3 (test code = 731-0) 1.30 10*3/uL 1.09-3.23 MONO x10^3 (test code = 742-7) 0.75 10*3/uL 0.36-1.02 EOS x10^3 (test code = 711-2) 0.06-0.53 L BASO x10^3 (test code = 704-7) 0.01-0.09 Lab Interpretation (test code = 34694-9) [facility] CenterLatnic Acid Whole [id number] 16:30:22* Test Item Value Reference Range Interpretation Comme nts LACTIC ACID (test code = 3584663482) 1.63 mmol/L 0.50-2.20 QUES Lab Interpretation (test cod e = 42571-9) Normal [facility] GLUCOSE(AGE >30DAYS)2024-04-03 15:46:00* Test Item Value Reference Range Interpretation Comme nts POCT Glu (age>30days) (test code = 3342) 305 mg/dL 70-110 A Lab Interpretation (test cod e = 45983-1) Abnormal [facility] GLUCOSE(AGE >30DAYS)2024-04-03 15:46:00* Test Item Value Reference Range Interpretation Comme nts POCT Glu (age>30days) (test code = 3342) 305 mg/dL 70-110 A Lab Interpretation (test cod e = 53423-9) Abnormal [facility] GLUCOSE (AUTOMATED)2024-04-03 15:44:37* Test Item Value Reference Range Interpretation Comme nts POCT GLU (test code = 0803591999) 305 mg/dL 70-110 H Lab Interpretation (test cod e = 47927-5) Abnormal [facility] GLUCOSE (AUTOMATED)2024-04-01 00:05:36* Test Item Value Reference Range Interpretation Comme nts POCT GLU (test code = 6340943544) 215 mg/dL 70-110 H Lab Interpretation (test cod e = 18689-0) [facility])2024-03-31 23:20:38* Test Item Value Reference Range Interpretation Comme nts POCT GLU (test code = 5128245752) 468 mg/dL 70-110 HH Lab Interpretation (test cod e = 41173-5) Abnormal [facility] HEAD WO [id number] 19:45:11EXAM: CT HEAD WO CONTRAST, CT CERVICAL [...] cervical soft tissues and visualized lung apices areunremarkable.[facility] CERVICAL SPINE WO [id number] 19:45:11EXAM: CT HEAD WO CONTRAST, CT CERVICAL [...] cervical soft tissues and visualized lung apices areunremarkable.[facility] LUMBAR SPINE 2 [id number] 00:16:22EXAM: XR LUMBAR SPINE 2 HISTORY: 69 years-old Male; Provided indication: Right knee pain andworsens low back pain s/p pushed by a door and mechanical fall earliertoday. . TECHNIQUE: Anterior and lateral views of the lumbar spine were obtained. COMPARISON: 02/06/2024 lumbar spine radiograph. FINDINGS: There are 5 non-rib bearing lumbar vertebrae. Mild degenerative changes of the lower lumbar spine. No acute fracture ortraumatic dislocation is visualized. Normal lumbar lordosis is preserved.Thevertebral bodies are normal in height and in normal alignment. Theintervertebral disc spaces are preserved.[facility] CenterXR KNEE 3 [id number] 22:53:33EXAM: XR KNEE 3 VW RIGHT HISTORY: 69 years-old Male; Provided indication: Right knee pain andworsens low back pain s/p pushed by a door and mechanical fall earliertoday. . COMPARISON: None FINDINGS: R adiographs of the right knee demonstrate no acute fracture or traumaticdislocation. The alignment is maintained. Tricompartmental osteophytosis,subchondral sclerosis, joint space narrowing are present. Patellarenthesophytes are seen. ?Bulky osseous bodies are present behind the knee.Focal sclerosisof the proximal tibia metadiaphysis may be posttraumatic. [facility]XR KNEE 3 [id number] 22:53:33EXAM: XR KNEE 3 VW RIGHT HISTORY: [...] the proximal tibia metadiaphysis may be posttraumatic. [facility] CenterGlycosylated Hemoglobin (A1C)2024-03-22 22:08:29* Test Item Value Reference Range Interpretation Comme nts HGB A1C (test code = 4548-4) 12.1 % 4.0-5.7 H RJ (test code = RJ) Reference RangesNormal: <5.7%Prediabetes: 5.7 - 6.4%Diabetes: > 6.5% Lab Interpretation (test code = 42114-4) [facility]normal [facility] CenterN-TERMINAL [id number] 17:06:26* Test Item Value Reference Range Interpretation Comme nts NT-proBNP (test code = 14592-4) 108 pg/mL <=125 Lab Interpretation (test cod e = 83786-9) Normal [facility] CenterTROPONIN [id number] 17:06:26* Test Item Value Reference Range Interpretation Comme nts TROPONIN I (test code = 4051723528) 0.007 ng/mL <=0.034 RJ (test code = [...] of biotin. Lab Interpretation (test code = 92105-6) Normal [facility] CenterHEPATIC FUNCTION PANEL (31249) (ALB,T.PRO,BILI T,BU/BC,ALT,AST,ALK PHOS)2024-03-22 16:57:07* Test Item Value Reference Range Interpretation Comme nts TOTAL BILI (test code = 4699045751) 0.6 mg/dL 0.1-1.1 BILI UNCON (test code = 8228633681) 0.1 mg/dL 0.1-1.1 BILI CONJ (test code = 7001626183) 0.0 mg/dL 0.0-0.3 T PROTEIN (test code = 4129357867) 6.7 g/dL 6.3-8.2 ALBUMIN (test code = 5549936238) 3.7 g/dL 3.5-5.0 ALK PHOS (test code = 3063864634) 102 U/L 34-122 ALTv (test code = 1742-6) 18 U/L 5-50 AST(SGOT) (test code = 3116449918) 24 U/L 13-40 Lab Interpretation (test cod e = 34549-3) Normal [facility] METABOLIC PANEL (NA, K, CL, CO2, GLUCOSE, BUN, CREATININE, CA)2024-03-22 16:57:07* Test Item Value Reference Range Interpretation Comme nts NA (test code = 8001161154) 137 mmol/L 135-145 K (test code = 1476884220) 3.8 mmol/L 3.5-5.0 CL (test code = 6836827125) 106 mmol/L 98-108 CO2 TOTAL (test code = 4855844767) 24 mmol/L 23-31 AGAP (test code = 7947459438) 7 2-16 BUN (test code = 4180705148) 12 mg/dL 7-23 GLUCOSE (test code = 8279804039) 132 mg/dL 70-110 H CREATININE (test code = 2160-0) 0.97 mg/dL 0.60-1.25 CALCIUM (test code = 9994756105) 8.8 mg/dL 8.6-10.6 eGFR (test code = 97389-1) 84.0 mL/min/1.73m2 CKD-EPI eGFR (2020). Assuming creatinine has been stable day-to-day for at least three months, the eGFR indicates Category G2 (60 - 89 mL/min/1.73 m2) Lab Interpretation (test code = 30542-2) [facility]normal [facility] CenterCreatine [id number] 16:57:07* Test Item Value Reference Range Interpretation Comme nts CK (test code = 2212519521) 51 U/L 33-194 Lab Interpretation (test cod e = 85439-5) Normal [facility] WITH [id number] 16:38:44* Test Item Value Reference Range Interpretation [...] 34.2 g/dL 31.2-35.0 RDW-SD (test code = 31068-0) 42.8 fL 38.5-51.6 RDW-CV (test code = 788-0) 13.2 % 12.1-15.4 PLT (test code = 777-3) 259 150-328 MPV (test code = 95807-0) 10.8 fL 9.8-13.0 NRBC/100 WBC (test code = 2565458295) 0.0 0.0-10.0 NRBC x10^3 (test code = 1414627903) See_Comment [Automated messa ge] The system which generated this result transmitted reference range: 10*3/?L. The reference range was not used to interpret this result as normal/abnormal. GRAN MAT (NEUT) % (test code = 770-8) 72.5 % IMM GRAN % (test code = 0550916343) 1.10 % LYMPH % (test code = 736-9) 13.2 % MONO % (test code = 5905-5) 11.4 % EOS % (test code = 713-8) 1.3 % BASO % (test code = 706-2) 0.5 % GRAN MAT x10^3(ANC) (test code = 5234850294) 6.01 10*3/uL 1.99-6.95 IMM GRAN x10^3 (test code = 2952272764) 0.09 10*3/uL 0.00-0.06 H LYMPH x10^3 (test code = 731-0) 1.09 10*3/uL 1.09-3.23 MONO x10^3 (test code = 742-7) 0.94 10*3/uL 0.36-1.02 EOS x10^3 (test code = 711-2) 0.11 10*3/uL 0.06-0.53 BASO x10^3 (test code = 704-7) 0.04 10*3/uL 0.01-0.09 Lab Interpretation (test code = 55601-5) [facility] CenterXR CHEST 2 [id number] 16:14:04EXAM: XR CHEST 2 03/22/2024 11:01 AM HISTORY: 69 years-old Male with fluid overload . TECHNIQUE: PA and lateral chest radiographs. COMPARISON: 02/14/2019. FINDINGS: Lines and tubes: None. Cardiomediastinal: The cardiomediastinal silhouette is unremarkable. Lungs and pleura: The lungs are clear. Nofocal consolidation,pneumothorax, or pleural effusion is seen. Included osseous structures show no acute abnormality. Degenerative changeinvolving the spine and AC joints is present.[facility] GLUCOSE (AUTOMATED) 2024-03-12 04:43:11* Test Item Value Reference Range Interpretation Comme nts POCT GLU (test code = 1427561382) 213 mg/dL 70-110 H Lab Interpretation (test cod e = 06881-4) Abnormal [facility] GLUCOSE (AUTOMATED)2024-03-12 03:47:48* Test Item Value Reference Range Interpretation Comme nts POCT GLU (test code = 0255612961) 258 mg/dL 70-110 H Lab Interpretation (test cod e = 66381-8) Abnormal [facility] GLUCOSE (AUTOMATED)2024-03-12 02:29:49* Test Item Value Reference Range Interpretation Comme nts POCT GLU (test code = 1984500116) 579 mg/dL 70-110 HH Lab Interpretation (test cod e = 40864-6) Abnormal [facility]. Metabolic Panel (19356)2024-03-12 02:17:22* Test Item Value Reference Range Interpretation Comme nts NA (test code = 4765422989) 130 mmol/L 135-145 L K (test code = 3751693721) 4.4 mmol/L 3.5-5.0 CL (test code = 3438615117) 98 mmol/L 98-108 CO2 TOTAL (test code = 9451202344) 26 mmol/L 23-31 AGAP (test code = 7463093627) 6 2-16 BUN (test code = 0913355372) 24 mg/dL 7-23 H GLUCOSE (test code = 2741372692) 614 mg/dL 70-110 HH CREATININE (test code = 2160-0) 1.21 mg/dL 0.60-1.25 TOTAL BILI (test code = 2420700920) 0.4 mg/dL 0.1-1.1 CALCIUM (test code = 9628443789) 8.6 mg/dL 8.6-10.6 T PROTEIN (test code = 1808528705) 6.1 g/dL 6.3-8.2 L ALBUMIN (test code = 6247762060) 3.5 g/dL 3.5-5.0 ALK PHOS (test code = 3401944264) 107 U/L 34-122 ALTv (test code = 1742-6) 17 U/L 5-50 AST(SGOT) (test code = 6640413650) 16 U/L 13-40 eGFR (test code = 11017-4) 64.4 mL/min/1.73m2 CKD-EPI eGFR (2020). Assuming creatinine has been stable day-to-day for at least three months, the eGFR indicates Category G2 (60 - 89 mL/min/1.73 m2) Lab Interpretation (test code = 57606-8) [facility]normal [facility] CenterTroponin [id number] 02:15:00* Test Item Value Reference Range Interpretation Comme nts TROPONIN I (test code = 1572768393) 0.006 ng/mL <=0.034 RJ (test code = [...] of biotin. Lab Interpretation (test code = 39010-8) Normal [facility] CenterCreatine [id number] 02:11:59* Test Item Value Reference Range Interpretation Comme nts CK (test code = 1651693291) 32 U/L 33-194 L Lab Interpretation (test cod e = 47916-2) [facility]normal [facility] CenterCbc with [id number] 01:59:02* Test Item Value Reference Range Interpretation [...] 34.2 g/dL 31.2-35.0 RDW-SD (test code = 71099-5) 41.0 fL 38.5-51.6 RDW-CV (test code = 788-0) 12.9 % 12.1-15.4 PLT (test code = 777-3) 231 150-328 MPV (test code = 86426-1) 10.5 fL 9.8-13.0 NRBC/100 WBC (test code = 8895370692) 0.0 0.0-10.0 NRBC x10^3 (test code = 3216955781) See_Comment [Automated [employer] ge] The system which generated this result transmitted reference range: 10*3/?L. The reference range was not used to interpret this result as normal/abnormal. GRAN MAT (NEUT) % (test code = 770-8) 68.1 % IMM GRAN % (test code = 5617529568) 0.80 % LYMPH % (test code = 736-9) 20.3 % MONO % (test code = 5905-5) 9.3 % EOS % (test code = 713-8) 1.1 % BASO % (test code = 706-2) 0.4 % GRAN MAT x10^3(ANC) (test code = 3655346125) 5.06 10*3/uL 1.99-6.95 IMM GRAN x10^3 (test code = 6834425349) 0.06 10*3/uL 0.00-0.06 LYMPH x10^3 (test code = 731-0) 1.51 10*3/uL 1.09-3.23 MONO x10^3 (test code = 742-7) 0.69 10*3/uL 0.36-1.02 EOS x10^3 (test code = 711-2) 0.08 10*3/uL 0.06-0.53 BASO x10^3 (test code = 704-7) 0.03 10*3/uL 0.01-0.09 Lab Interpretation (test code = 81169-1) [facility]normal [facility] CenterComp. Metabolic Panel (69185)2024-02-10 18:23:57* Test Item Value Reference Range Interpretation Comme nts NA (test code = 8328720869) 135 mmol/L 135-145 K (test code = 2448327813) 4.1 mmol/L 3.5-5.0 CL (test code = 4800595839) 100 mmol/L 98-108 CO2 TOTAL (test code = 2046382535) 27 mmol/L 23-31 AGAP (test code = 9932940660) 8 2-16 BUN (test code = 0905056515) 26 mg/dL 7-23 H GLUCOSE (test code = 5544410900) 209 mg/dL 70-110 H CREATININE (test code = 2160-0) 1.09 mg/dL 0.60-1.25 TOTAL BILI (test code = 7585082862) 1.0 mg/dL 0.1-1.1 CALCIUM (test code = 2987284585) 8.9 mg/dL 8.6-10.6 T PROTEIN (test code = 6405821547) 7.0 g/dL 6.3-8.2 ALBUMIN (test code = 5644460343) 3.5 g/dL 3.5-5.0 ALK PHOS (test code = 4221027789) 122 U/L 34-122 ALTv (test code = 1742-6) 30 U/L 5-50 AST(SGOT) (test code = 4397369314) 34 U/L 13-40 eGFR (test code = 75110-1) 73.0 mL/min/1.73m2 CKD-EPI eGFR (2020). Assuming creatinine has been stable day-to-day for at least three months, the eGFR indicates Category G2 (60 - 89 mL/min/1.73 m2) Lab Interpretation (test code = 86044-5) [facility] with [id number] 18:13:28* Test Item Value Reference Range Interpretation [...] 33.9 g/dL 31.2-35.0 RDW-SD (test code = 02641-0) 42.0 fL 38.5-51.6 RDW-CV (test code = 788-0) 12.9 % 12.1-15.4 PLT (test code = 777-3) 287 150-328 MPV (test code = 86476-2) 9.4 fL 9.8-13.0 L NRBC/100 WBC (test code = 0492476554) 0.0 0.0-10.0 NRBC x10^3 (test code = 2633845098) See_Comment [Automated messa ge] The system which generated this result transmitted reference range: 10*3/?L. The reference range was not used to interpret this result as normal/abnormal. GRAN MAT (NEUT) % (test code = 770-8) 77.5 % IMM GRAN % (test code = 8232922918) 1.10 % LYMPH % (test code = 736-9) 11.1 % MONO % (test code = 5905-5) 9.1 % EOS % (test code = 713-8) 0.9 % BASO % (test code = 706-2) 0.3 % GRAN MAT x10^3(ANC) (test code = 8566586962) 8.71 10*3/uL 1.99-6.95 H IMM GRAN x10^3 (test code = 2541769115) 0.12 10*3/uL 0.00-0.06 H LYMPH x10^3 (test code = 731-0) 1.25 10*3/uL 1.09-3.23 MONO x10^3 (test code = 742-7) 1.02 10*3/uL 0.36-1.02 EOS x10^3 (test code = 711-2) 0.10 10*3/uL 0.06-0.53 BASO x10^3 (test code = 704-7) 0.03 10*3/uL 0.01-0.09 Lab Interpretation (test code = 81388-8) [facility] CenterCT [facility] WO [id number] 20:09:29FULL RESULT: Examination: CT HEAD WO CONTRAST on 02/09/2024 2:43 PM Clinical Indication: Dizziness Comparison: None Technique: Noncontrast imaging was obtained from base to vertex. Findings: The sulciand ventricles were unremarkable. There was no evidencefor mass lesion, hemorrhage, or underlying ed michelle. There is mild whitematter hypodensity compatible with microvascular ischemic change. There were no bony, sinonasal or skull base lesions.[facility]XR LUMBAR SPINE 3 [id number] 15:24:42EXAM: XR LUMBAR SPINE 3 VW HISTORY: [...] innormal alignment. The intervertebral disc spaces are preserved.[facility] CenterCT ABDOMEN PELVIS WO [id number] 19:42:33HISTORY: ?flank pain with right side swelling COMPARISON:none TECHNIQUE:CT scan of the abdomen and pelvis performed. Contiguous axial CT imageswere obtained without administration of intravenous contrast. ?CT scan doneaccording to [facility]. Technical quality: Technical quality: adequate. FINDINGS: Liver, gallbladder, bile ducts unremarkable. Pancreas atrophic. Spleen normal in size. No adrenal nodule. No renal stones. Doses. Urinary bladder decompressed. No bowel obstruction. Diverticulosis present without diverticulitis. The appendix is normal. No retroperitoneal or mesenteric adenopathy is seen. Inflammatory change in the left upper quadrant involving the omentum. Mostcompatible with omental infarct. No acute bony abnormality.[facility]. Metabolic Panel (99409)2024-01-30 17:18:01* Test Item Value Reference Range Interpretation Comme nts NA (test code = 7517504348) 139 mmol/L 135-145 K (test code = 5091135549) 3.6 mmol/L 3.5-5.0 CL (test code = 0463073371) 107 mmol/L 98-108 CO2 TOTAL (test code = 7097059817) 27 mmol/L 23-31 AGAP (test code = 8025860567) 5 2-16 BUN (test code = 8946543001) 27 mg/dL 7-23 H GLUCOSE (test code = 7747757214) 118 mg/dL 70-110 H CREATININE (test code = 2160-0) 0.99 mg/dL 0.60-1.25 TOTAL BILI (test code = 0954675338) 0.4 mg/dL 0.1-1.1 CALCIUM (test code = 9939987942) 8.6 mg/dL 8.6-10.6 T PROTEIN (test code = 1765673532) 6.8 g/dL 6.3-8.2 ALBUMIN (test code = 2656942430) 3.6 g/dL 3.5-5.0 ALK PHOS (test code = 5296805568) 105 U/L 34-122 ALTv (test code = 1742-6) 23 U/L 5-50 AST(SGOT) (test code = 3861461842) 27 U/L 13-40 eGFR (test code = 34875-2) 81.9 mL/min/1.73m2 CKD-EPI eGFR (2020). Assuming creatinine has been stable day-to-day for at least three months, the eGFR indicates Category G2 (60 - 89 mL/min/1.73 m2) Lab Interpretation (test code = 58674-8) Abnormal [facility] with [id number] 16:52:14* Test Item Value Reference Range Interpretation [...] 33.3 g/dL 31.2-35.0 RDW-SD (test code = 77002-9) 42.9 fL 38.5-51.6 RDW-CV (test code = 788-0) 13.2 % 12.1-15.4 PLT (test code = 777-3) 290 150-328 MPV (test code = 73827-7) 9.9 fL 9.8-13.0 NRBC/100 WBC (test code = 2576964265) 0.0 0.0-10.0 NRBC x10^3 (test code = 8509703046) See_Comment [Automated messa ge] The system which generated this result transmitted reference range: 10*3/?L. The reference range was not used to interpret this result as normal/abnormal. GRAN MAT (NEUT) % (test code = 770-8) 74.8 % IMM GRAN % (test code = 6333968251) 0.90 % LYMPH % (test code = 736-9) 14.7 % MONO % (test code = 5905-5) 7.8 % EOS % (test code = 713-8) 1.2 % BASO % (test code = 706-2) 0.6 % GRAN MAT x10^3(ANC) (test code = 5627710600) 7.72 10*3/uL 1.99-6.95 H IMM GRAN x10^3 (test code = 2865204819) 0.09 10*3/uL 0.00-0.06 H LYMPH x10^3 (test code = 731-0) 1.52 10*3/uL 1.09-3.23 MONO x10^3 (test code = 742-7) 0.81 10*3/uL 0.36-1.02 EOS x10^3 (test code = 711-2) 0.12 10*3/uL 0.06-0.53 BASO x10^3 (test code = 704-7) 0.06 10*3/uL 0.01-0.09 Lab Interpretation (test code = 48525-3) [facility] 3 [id number] 19:03:44 HISTORY: ?Low back pain. FINDINGS: AP, [...] degenerative disc disease at L2-L3, L3-L4, L4-L5. [facility], Radiant Results Inft User - 02/16/2020 2:04 [...] ofmild degenerative disc disease at L2-L3, L3-L4, L4-L5.[facility] CenterPOCT [id number] 13:50:00* Test Item Value Reference Range Interpretation Comme nts POCT Glu (age>30days) (test code = 3342) 181 mg/dL 70-110 A Lab Interpretation (test cod e = 96627-0) Abnormal [facility] Consult Notes Date/Time Note Provider Source 2024-06-29 12:06:21 Associated Order(s): CONSULT INFECTIOUS DISEASE Patient is a 69-year-old male coming in with status post fall patient had a scrape and bleeding from his scalp and complaint of neck discomfort on arrival. Patient was found to have bacteremia and vegetation was also noted on transesophageal echocardiogram. 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/2019 Cataract OS ONLY Cellulitis of foot, left 04/12/2020 Diabetes Diabetic eye exam 12/01/2019 Added automatically from request for surgery [id number] Dyslipidemia Edema of both legs 02/28/2020 Erectile dysfunction, unspecified erectile dysfunction type 02/28/2020 Essential hypertension 02/28/2020 HTN (hypertension) Hyperlipidemia Obesity (BMI 30-39.9) 03/17/2019 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 Stroke 2017 Type 2 diabetes mellitus with vascular disease 10/12/2019 Upper respiratory tract infection, unspecified type 10/12/2019 Past Surgical History: Procedure Laterality Date COLONOSCOPY N/A 12/30/2019 Surgeon: Glo Finn MD; Location: [facility] OR [facility] CORNEAL TRANSPLANT,LAMELLAR Bilateral KNEE ARTHROSCOPY 1998 OTHER PENETRATING KERATOPLASTY PHACOEMULSIFICATION OF CATARACT WITH INTRAOCULAR LENS IMPLANT Right 03/17/2019 Surgeon: Virgil Martinez MD; Location: [facility] OR Location Current Facility-Administered Medications: amoxicillin-clavulanate (AUGMENTIN) 875-125 mg per tablet 1 tablet, 1 tablet, Oral, Q12H, Skip Lino MD, 1 tablet at 06/29/24 0756 NaCl 0.9% (NS) injection 10 mL, 10 mL, Slow IV Push, PRN, Kimmie Sandra AGACNP Saline Bubble Study, 6 mL, Injection, SEE-INSTRUCTIONS, Frank Quiroz MD vancomycin (VANCOCIN) 1,000 mg in NaCl 0.9% (NS) 250 mL VIAL-MATE IV piggyback, 1,000 mg, IV Piggyback, Q12H ABX, José Aparicio MD, Last Rate: 250 mL/hr at 06/29/24 1151, 1,000 mg at 06/29/24 1151 hydralAZINE (APRESOLINE) injection 10 mg, 10 mg, Slow IV Push, Q4HPRN, José Aparicio MD lisinopriL (PRINIVIL,ZESTRIL) tablet 20 mg, 20 mg, Oral, BID, José Aparicio MD, 20 mg at 06/29/24 075 aspirin EC tablet 81 mg, 81 mg, Oral, DAILY, José Aparicio MD, 81 mg at 06/29/24 075 atorvastatin (LIPITOR) tablet 40 mg, 40 mg, Oral, QHS, José Aparicio MD, 40 mg at 06/28/242009 furosemide (LASIX) tablet 20 mg, 20 mg, Oral, DAILY, José Aparicio MD, 20 mg at 06/29/24 075 gabapentin (NEURONTIN) capsule 100 mg, 100 mg, Oral, TID, José Aparicio MD, 100 mg at 06/29/24 075 insulin NPH (HUMULIN N) injection 20 Units, 20 Units, Subcutaneous, BIDAC, José Aparicio MD, 20 Units at 06/29/24 075 ondansetron (ZOFRAN (PF)) injection 4 mg, 4 mg, Slow IV Push, Q6HPRN, José Aparicio MD tiZANidine (ZANAFLEX) tablet 4 mg, 4 mg, Oral, Q6HPRN, José Aparicio MD acetaminophen (TYLENOL) tablet 650 mg, 650 mg, Oral, Q6HPRN, Raj Ott DO dextrose 50 % in water (D50W) injection 25 mL, 25 mL, Slow IV Push, PRN, Raj Ott DO enoxaparin (LOVENOX) injection 40 mg, 40 mg, Subcutaneous, DAILY, Raj Ott DO, 40 mg at 06/29/24 0755 glucagon (GLUCAGEN DIAGNOSTIC KIT) injection 1 mg, 1 mg, Intramuscular, PRN, Raj Ott DO Sliding Scale Insulin - Lispro (HumaLOG), , Subcutaneous, TID MEALS+HS, Raj Ott DO, 4 Units at 06/29/24 1147 No Known Allergies Social History Socioeconomic History Marital status: Spouse name: Not on file Number of children: Not on file Years of education: Not on file Highest education level: Not on file Occupational History Not on file Tobacco Use Smoking status: Never Smokeless tobacco: Never Vaping Use Vaping status: Not on file Substance and Sexual Activity Alcohol use: No Drug use: No Sexual activity: Not on file Other Topics Concern Not on file Social History Narrative Not on file Social Determinants of Health Financial Resource Strain: High Risk (06/24/2024) Overall Financial Resource Strain (CARDIA) Difficulty of Paying Living Expenses: Very hard Food Insecurity: Food Insecurity Present (06/24/2024) Hunger Vital Sign Worried About Running Out of Food in the Last Year: Often true Ran Out of Food in the Last Year: Often true Transportation Needs: Not on file Physical Activity: Inactive (06/24/2024) Exercise Vital Sign Days of Exercise per Week: 0 days Minutes of Exercise per Session: 0 min Stress: Not on file Social Connections: Unknown (06/24/2024) Social Connection and Isolation Panel [NHANES] Frequency of Communication with Friends and Family: Patient declined Frequency of Social Gatherings with Friends and Family: Not on file Attends Pent[employer]al Services: Not on file Active Member of Clubs or Organizations: Not on file Attends Club or Organization Meetings: Not on file Marital Status: Intimate Partner Violence: Not on file Housing Stability: High Risk (06/24/2024) Housing Stability Vital Sign Unable to Pay for Housing in the Last Year: Yes Number of Places Lived in the Last Year: Not on file Unstable Housing in the Last Year: Yes Family History Problem Relation Age of Onset Cancer Mother Liver Cancer Father lung Review of system: 10 point review was performed Physical exam: Patient sitting in bed not in any acute cardiopulmonary distress having lunch Vitals: 06/28/24 2307 06/29/24 0329 06/29/24 0713 06/29/24 1137 BP: 138/75 127/68 (!) 143/70 (!) 150/71 BP Location: Patient Position: Pulse: 84 65 69 68 Resp: 18 18 18 18 Temp: 36.7 ?C (98 ?F) 36.2 ?C (97.2 ?F) 36.5 ?C (97.7 ?F) 36.4 ?C (97.6 ?F) TempSrc: Temporal Artery SpO2: 96% 97% 96% 97% Weight: 202 lb 12.8 oz (92 kg) Height: HEENT: Within normal limits Cardiovascular: RRR Lungs: Symmetric expansion, clear bilaterally Abdomen: Soft, NTND Musculoskeletal: No synovitis, normal muscle mass Genitourinary: Deferred Skin: No rash, no skin lesions. No petechia Extremities: No clubbing, no cyanosis, no lower extremity edema Neuro: AAOx2, no focal deficits; generalized weakness CBC WBC (10*3/?L) Date Value 06/29/2024 8.56 RBC (10*6/?L) Date Value 06/29/2024 4.01 (L) PLT (10*3/?L) Date Value 06/29/2024 287 HGB (g/dL) Date Value 06/29/2024 11.6 (L) HCT (%) Date Value 06/29/2024 35.2 (L) CMP NA (mmol/L) Date Value 06/29/2024 136 K (mmol/L) Date Value 06/29/2024 4.2 CALCIUM (mg/dL) Date Value 06/29/2024 8.5 (L) CL (mmol/L) Date Value 06/29/2024 99 BUN (mg/dL) Date Value 06/29/2024 24 (H) CREATININE (mg/dL) Date Value 06/29/2024 1.14 GLUCOSE (mg/dL) Date Value 06/29/2024 280 (H) CO2 TOTAL (mmol/L) Date Value 06/29/2024 27 ALBUMIN (g/dL) Date Value 06/23/2024 3.9 T PROTEIN (g/dL) Date Value 06/23/2024 7.3 TOTAL BILI (mg/dL) Date Value 06/23/2024 0.5 BILI UNCON (mg/dL) Date Value 03/22/2024 0.1 BILI CONJ (mg/dL) Date Value 03/22/2024 0.0 ALT(SGPT) (U/L) Date Value 02/24/2019 38 ALTv (U/L) Date Value 06/23/2024 16 AST(SGOT) (U/L) Date Value 06/23/2024 24 ALK PHOS (U/L) Date Value 06/23/2024 141 (H) RAYMOND Left Ventricle Left ventricle size is normal. Normal systolic function with a visually estimated EF of 60 - 65%. Right Ventricle Right ventricle size is normal. Normal systolic function. Left Atrium Left atrium size is normal. Saline contrast shows no shunt. Atrial septal aneurysm present. Normal appendage flow velocity. No thrombus in left atrial appendage. Right Atrium Right atrium size is normal. Catheter present in the right atrium. IVC/SVC IVC diameter is less than or equal to 21 mm and decreases greater than 50% during inspiration; therefore the estimated right atrial pressure is normal (~0-5 mmHg). Catheter present in the SVC. Mitral Valve Mildly thickened leaflets. Mild mitral annular calcification. Tricuspid Valve Tricuspid valve structure is normal. Insufficient tricuspid regurgitation jet to estimate RVSP . Aortic Valve Tricuspid. There is a tiny mobile mass attached to the ventricular side of the leaflet. Pulmonic Valve Valve structure is grossly normal. Ascending Aorta Normal sized aorta. Pericardium The pericardium is normal. No pericardial effusion. 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 Diabetes mellitus Anemia of chronic disease PICC line in place Thank you for consult IM-INTERNAL MEDICINE STAFF [facility] 2024-06-27 14:09:49 Associated Order(s): CONSULT ACCOUNTING ADMINISTRATIVE ASSISTANT-ADULT Referral submitted to Glo Wright for SNF placement. Awaiting determination. HAIDER Munoz Time Motion Analyst - Care Management [facility] [phone] [email or web address] 2024-06-27 11:15:00 Associated Order(s): CONSULT VASCULAR ACCESS [facility] V[facility] Access Services PICC LINE CONSULT 69 year old male Indication/Diagnosis: penitentiary antibiotics See procedure note. [facility] 2024-06-27 02:00:00 Associated Order(s): CONSULT ADULT PHYSICAL THERAPY Patient agreeable to working with physical therapy. Patient met supine. Recommend nursing staff utilize PT/RN moderate assist x 2 to safely assist patient with mobility out of the bed or chair. PHYSICAL THERAPY EVALUATION Consult received, chart reviewed and evaluation complete this date. Patient is referred to PT for evaluation and treatment. Patient is a 69 year old male who presents to hospital for Bacteremia [R78.81] . Discharge Recommendations: Therapy Needs and Potential: Patient would benefit from continued physical therapy services to address: decline in bed mobility decline in transfers decline in gait and/or balance decreased strength Challenges to Home Transition: increased risk of falls decreased safety awareness Equipment recommendations: rolling walker Current Functional Status and/or Treatment: AM-PAC 6 Clicks (Raw Score 0=Dependent, 24=Independent; Low function Raw Score 0= Dependent, 32=Independent): Raw Score - Basic Mobility : 14 T-Scale Score - Basic Mobility : 35.55 Bed Mobility: Rolling: Minimal Assistance Cued Pt was able to safely perform bed mobility w/ PT providing minimal assist Dizziness No Transfers: sit-stand: Moderate Assistance Stand to sit: Moderate Assistance using rolling Walker. Static/dynamic standing balance: Fair Verbal cueing provided for correct hand placement and correct use of AD Cued Pt was able to safely perform transfer activities Dizziness Yes, PT asked Pt to perform deep breathing exercise to slowly calm the symptoms Ambulation: patient unable to tolerate due to weakness and dizziness Assessed Pt was not able to perform ambulation, secondary to Pt being weak on BLE and dizziness. Dizziness Yes, PT asked Pt to perform deep breathing exercise to slowly calm the symptoms Therapeutic exercise: patient educated in Deep breathing, Fall prevention, General strengthening, and Safety awareness. After session, patient supine. PT informed RN of Pt status. Call button provided. PLAN OF CARE: While in the hospital, PT will follow patient at least 3 times per week,once or twice a day, per patient's tolerance and needs. See below for complete details. 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) 10/12/2019 Cataract OS ONLY Cellulitis of foot, left 04/12/2020 Diabetes Diabetic eye exam 12/01/2019 Added automatically from request for surgery [id number] Dyslipidemia Edema of both legs 02/28/2020 Erectile dysfunction, unspecified erectile dysfunction type 02/28/2020 Essential hypertension 02/28/2020 HTN (hypertension) Hyperlipidemia Obesity (BMI 30-39.9) 03/17/2019 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 Stroke 2017 Type 2 diabetes mellitus with vascular disease 10/12/2019 Upper respiratory tract infection, unspecified type 10/12/2019 PSH: Past Surgical History: Procedure Laterality Date COLONOSCOPY N/A 12/30/2019 Surgeon: Glo Finn MD; Location: [facility] OR [facility] CORNEAL TRANSPLANT,LAMELLAR Bilateral KNEE ARTHROSCOPY 1999 OTHER PENETRATING KERATOPLASTY PHACOEMULSIFICATION OF CATARACT WITH INTRAOCULAR LENS IMPLANT Right 03/17/2019 Surgeon: Virgil Martinez MD; Location: [facility] OR [facility] Prior Living Situation: is homeless DME: Rolling Walker Prior level of Mobility: ambulates with rolling Walker. Suspected ischemic or hemorraghic stroke:No Subjective: PT seen Pt today for evaluation, Pt complained of 9/10 pain, weak BLE and also complained of dizziness Patient/Family Goals: To get better Patient/Family verbalizes understanding of condition: Yes PAIN: -Pain rating before treatment: 9, After treatment: does not rate COMMUNICATION Primary Language: Samoan Able to Verbalize needs: Yes Vision:good; no issues reported Hearing:good; no issues reported ORIENTATION/COGNITION: Oriented to: person, place, and situation Awake: Yes Alert: Yes Dizzy: Yes Follows Commands: Yes 1-Step Yes Multi-Step Yes Inconsistent: No NEUROLOGICAL Light Touch: within functional limits bilateral LE, BALANCE: Sitting: Static: Fair+ Dynamic: Fair Standing: Static: Fair Dynamic: Fair RANGE OF MOTION: deficit: bilateral LE secondary to weakness STRENGTH: 3+/5 (F+), bilateral LE ENDURANCE: Fair SKIN INTEGRITY: intact PROBLEM LIST: Decline in bed mobility, Decline in gait, Decline in transfers, Decreased strength, and Safety awareness deficits ASSESSMENT: Patient is a 69 year old male seen secondary to the above listed diagnosis. Patient would benefit from continued PT to address the above listed deficits to maximize independence and safety with functional mobility. Rehabilitation Potential: fair Goals: The following goals are to maximize independence and safety with functional mobility to eventually return to prior living situation and prior functional status. Upon discharge, patient and/or family will demonstrate the followin. Rolling: Minimal Assistance Supine-sit: Minimal Assistance Sit to supine: Minimal Assistance 2. sit-stand: Minimal Assistance Stand to sit: Minimal Assistance using rolling Walker. 3. Minimal Assistance with ambulation, Feet: 5 ft initially using least assistive device. Treatment Plan: Evaluation, Gait training, and Safety education, patient/caregiver education PATIENT EDUCATION: Patient provided with preferred teaching of verbal information and demonstration on role of PT, plan of care, and goals. Shows readiness to learn. Verbal instruction and Demonstration teaching provided. Individual is able to read and verbalizes understanding of teaching provided. Total Time Tx Codes in Minutes: 25 min Total Treatment Time in Minutes: 45 min Kevin Arevalo PT [place] Lic No. [id number] [facility] Department of Physical Therapy Kevin Arevalo PT [facility] 2024-06-23 22:05:37 Associated Order(s): CONSULT CARDIOLOGY [facility] Cardiology Consult Note Patient: Raj Morales Date of : 1955 Date of service: 06/23/2024 Primary Care Physician: PATIENT DOES NOT HAVE A PCP CHIEF COMPLAINT: Chief Complaint Patient presents with Fall HISTORY OF PRESENT ILLNESS: Raj Morales is a 69 year old male presented to the ER for evaluation for recurrent falls. History from patient. Patient seen and examined in the room. Pertinent cardiac related history reviewed from chart Patient presents to the ER for evaluation for falls. came in by EMS because he was found down on the ground after rolling off the curb while seated in his walker. He fell off the curb, landing on his left side with contusion to his left scalp and c/o neck pain. Patient was admitted today due to positive blood culture noted. Cardiology consulted due to MRSA bacteremia. He his homeless and has had frequent recent visits to this ER. This is his 5th visit in 8 days. SEO NYHA class II-III noted. No chest pain at rest. No PND or orthopnea. No pedal edema. No exertional palpitations or palpitations at rest. History of stroke, DM, HTN, HLD, JAQUELIN, and obesity. Stroke in 2017, Sleep study showed severe JAQUELIN. 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 Stroke 2017 Type 2 diabetes mellitus with vascular disease 10/12/2019 Upper respiratory tract infection, unspecified type 10/12/2019 Past Surgical History: Procedure Laterality Date COLONOSCOPY N/A 12/30/2019 Surgeon: Glo Finn MD; Location: [facility] OR [facility] CORNEAL TRANSPLANT,LAMELLAR Bilateral KNEE ARTHROSCOPY 1999 OTHER PENETRATING KERATOPLASTY PHACOEMULSIFICATION OF CATARACT WITH INTRAOCULAR LENS IMPLANT Right 03/17/2019 Surgeon: Virgil Martinez MD; Location: [facility] Family History Problem Relation Age of Onset Cancer Mother Liver Cancer Father lung SOCIAL HISTORY Social History Socioeconomic History Marital status: Tobacco Use Smoking status: Never Smokeless tobacco: Never Substance and Sexual Activity Alcohol use: No Drug use: No ALLERGIES No Known Allergies MEDICATIONS Current Discharge Medication List STOP taking these medications cephALEXin 500 mg capsule Comments: Reason for Stopping: motialpj-wozkukgead-bagawulsl 3.5mg-400 unit- 5,000 unit/gram topical ointment Comments: Reason for Stopping: mupirocin 2 % ointment Comments: Reason for Stopping: cephALEXin 500 mg capsule Comments: Reason for Stopping: furosemide 20 mg tablet Comments: Reason for Stopping: gabapentin (NEURONTIN) 100 mg capsule Comments: Reason for Stopping: mupirocin 2 % ointment Comments: Reason for Stopping: doxycycline hyclate 100 mg capsule Comments: Reason for Stopping: dicyclomine 20 mg tablet Comments: Reason for Stopping: tiZANidine 4 mg tablet Comments: Reason for Stopping: LISINOPRIL-HYDROCHLOROTHIAZID E 10-12.5 mg per tablet Comments: Reason for Stopping: Alcohol Swabs (BD SINGLE USE SWABS REGULAR) PadM Comments: Reason for Stopping: blood sugar diagnostic (TRUE METRIX GLUCOSE TEST STRIP) strip Comments: Reason for Stopping: furosemide 20 mg tablet Comments: Reason for Stopping: lancets (TRUEPLUS LANCETS) 33 gauge Misc Comments: Reason for Stopping: simvastatin 40 mg tablet Comments: Reason for Stopping: insulin NPH (HUMULIN N NPH U-100 INSULIN) 100 unit/mL injection Comments: Reason for Stopping: metFORMIN 1,000 mg tablet Comments: Reason for Stopping: sildenafiL 50 mg tablet Comments: Reason for Stopping: Miscellaneous Medical Supply Misc Comments: Reason for Stopping: Insulin Syringe-Needle U-100 1 mL 27 gauge x 1/2" Syrg Comments: Reason for Stopping: Insulin [place], Disposable, (PHUC PEN NEEDLE) 32 gauge x 5/32" Ndle Comments: Reason for Stopping: aspirin 81 mg EC tablet Comments: Reason for Stopping: potassium chloride 10 mEq CR tablet Comments: Reason for Stopping: peg-electrolyte soln 236-22.74-6.74 -5.86 gram solution Comments: Reason for Stopping: ofloxacin (OCUFLOX) 0.3 % ophthalmic solution Comments: Reason for Stopping: prednisoLONE acetate 1 % ophthalmic suspension drops Comments: Reason for Stopping: Current Facility-Administered Medications: acetaminophen (TYLENOL) tablet 650 mg, 650 mg, Oral, Q6HPRN, Raj Ott DO cefTRIAXone (ROCEPHIN) 1,000 mg in NaCl 0.9% (NS) 100 mL MINI-BAG, 1,000 mg, IV Piggyback, Q24H ABX, Raj Ott DO, Stopped at 06/23/24 1638 dextrose 50 % in water (D50W) injection 25 mL, 25 mL, Slow IV Push, PRN, Raj Ott DO enoxaparin (LOVENOX) injection 40 mg, 40 mg, Subcutaneous, DAILY, Raj Ott DO, 40 mg at 06/23/24 1811 glucagon (GLUCAGEN DIAGNOSTIC KIT) injection 1 mg, 1 mg, Intramuscular, PRN, Raj Ott DO Sliding Scale Insulin - Lispro (HumaLOG), , Subcutaneous, TID MEALS+HS, Raj Ott DO REVIEW OF SYSTEMS: Comprehensive 10-system review was conducted and were negative except for what's noted in the HPI. The following systems were reviewed: Constitutional, cardiovascular, respiratory, gastrointestinal, genitourinary, musculoskeletal, neurologic, psychiatric, endocrinological, and hematological. PHYSICAL EXAMINATION: Vitals: 06/23/24 1530 06/23/24 1621 06/23/24 1639 06/23/24 1942 BP: (!) 175/76 (!) 154/81 (!) 162/81 Pulse: 68 67 63 Resp: 15 18 18 Temp: 36.9 ?C (98.4 ?F) 37.2 ?C (98.9 ?F) 36.3 ?C (97.3 ?F) TempSrc: Oral SpO2: 98% 95% 98% Weight: 91.6 kg (202 lb) Height: 1.778 m (5' 10") General: no apparent distress HEENT: normocephalic atraumatic Neck: supple, no lymphadenopathy, no bruits, no JVD Lungs: clear to auscultation bilaterally. No wheezes or rhonchi. No increased work of breathing. Cardio: Regular rate and rhythm, S1&S2 normal, no murmurs, rubs or gallops Abdomen: soft; non-tender; non-distended; normoactive bowel sounds. : not examined Rectal: not examined Extremities: no clubbing, cyanosis, or edema. Skin: no rashes, no visible lesions. Neuro: no gross focal deficits LABS - Reviewed pertinent labs as below: CBC BMP PT/INR WBC (10*3/?L) Date Value 06/23/2024 9.00 NA (mmol/L) Date Value 06/23/2024 139 No results found for: "PT" PLT (10*3/?L) Date Value 06/23/2024 346 (H) K (no units) Date Value 06/23/2024 3.5 INR (no units) Date Value 06/23/2024 1.1 HGB (g/dL) Date Value 06/23/2024 12.7 BUN (mg/dL) Date Value 06/23/2024 25 (H) HCT (%) Date Value 06/23/2024 40.2 CREATININE (mg/dL) Date Value 06/23/2024 1.00 LIPID PROFILE GLUCOSE (mg/dL) Date Value 06/23/2024 242 (H) CHOL (mg/dL) Date Value 10/18/2019 115 (L) TSH LDL CHOL (mg/dL) Date Value 10/18/2019 60 TSH (mIU/L) Date Value 10/18/2019 1.77 CARDIAC ENZYMES HDL (mg/dL) Date Value 10/18/2019 41 CK (U/L) Date Value 04/03/2024 35 TRIG (mg/dL) Date Value 10/18/2019 71 LFTs No results found for: "CKMB" AST(SGOT) (U/L) Date Value 06/23/2024 24 TROPONIN I (ng/mL) Date Value 06/23/2024 <0.012 ALT(SGPT) (U/L) Date Value 02/24/2019 38 ALTv (U/L) Date Value 06/23/2024 16 No results found for: "BNP" LDL CHOL (mg/dL) Date Value 10/18/2019 60 Recent Labs 06/23/24 1207 TROPNI <0.012 There are no current results on file for these tests and/or test for 1 year. 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 Continue telemetry monitoring Echo dated 06/23/2024 images reviewed . Shows preserved LV systolic function. No significant regional wall motion changes noted. No significant valve abnormalities noted. Recommend carotid ultrasound. MRSA bacteremia: Blood culture positive. Rx/workup per primary team. Will plan for RAYMOND. Attempted getting the informed consent today. However patient was extremely drowsy and was not awake enough to discuss regarding the risk and benefits for the procedure. Hence will revisit in a.m. tomorrow. Will plan for RAYMOND bacteremia if needed on Thursday AM. Hypertension: Elevated in the hospital. Recommended orthostatic vitals. Unsure regarding compliance with medication. Previously noted to be on lisinopril/hydrochlorothiazid e 10/12.5 daily. JAQUELIN: Rx as per primary team. History of stroke: Recommended continue aspirin 81 daily along with statins. Recommend restarting Lipitor 40 mg daily. Unsure regarding compliance with medication. HLD: Unsure regarding compliance with medication. Previously noted to be on simvastatin 40 mg daily. Recommended lipid panel. Recommended goal LDL needs to be less than 70. LDL CHOL (mg/dL) Date Value 10/18/2019 60 T2DM: Rx as per primary team. Last Two A1C Results (UTMB/LC, POCT, [facility]) Recent Labs 03/22/24 1046 06/23/24 1207 HGBA1C 12.1* 7.5* My diagnostic impression and treatment plans were discussed at length with the patient Total Visit Time: 60 mins The total Visit time for today's visit with Raj Morales encompassed 60 minutes. Time was spent reviewing the chart before, during and after the visit, reviewing laboratory results, taking interval history, performing the documented physical examination, completing and "cleaning up" the electronic medical record as well as addressing any questions and concerns. The time spent for patient care includes: PreCharting (eg, review of tests, notes, etc.), Obtaining and/or reviewing separately obtained history (Care Everywhere or paper records), Counseling and educating the patient/family/caregiver, Ordering medications, tests, or procedures, Ordering referrals and/or communicating with other health transitional care manager (when not separately reported), Documenting clinical information in the electronic or other health record, and Independently interpreting results (not separately reported) and/or communicating results to the patient/family/caregiver. Keep up with basic health maintenance including an annual physical examination with your primary physician, appropriate vaccinations (influenza, pneumonia, new shingles vaccination), and other appropriate testing (e.g. EGD, colonoscopy etc). This report was dictated using [employer] and is subject to voice recognition errors. Please excuse any unusual inaccuracies. Thank you for allowing us to participate in the care of Raj Morales. If you have any questions or concerns please feel free to call our office at [phone]. I would be happy to be of further assistance for Raj Morales wellbeing. Voice recognition software has been used to create portions of this document. An attempt to proofread has been made to minimize errors. Please do not hesitate to call with any questions. Alina Edouard MD Draw Frame Operator, Division of Cardiology [facility] T [facility] - Health History and Physical Notes Date/Time Note Provider Source 2024-06-23 22:10:00 [facility] Hospitalist Admission H&P Date of Service: 06/23/2024 CHIEF COMPLAINT: Patient presents status post fall (found to be bacteremic) HISTORY OF PRESENT ILLNESS Raj Morales is a 69 year old male who presents with status post fall. Patient apparently had slipped off a curb and was found on the ground bleeding from the scalp with complaints of neck pain. While patient was in the emergency room he was noted to have had positive blood cultures. These blood cultures were obtained on June 19. Patient has been homeless and has been into the emergency room repeatedly since June 15. Patient also has been evaluated for closed head injury after falling on June 16. Patient was also treated for urinary tract infection with altered mentation. Patient was found in his hospital bed sleeping. He was arousable. He was able to give me some of the information about what brought him into the emergency room. However he appeared to be very distracted throughout our conversation. Patient had a history of stroke and he is homeless. He has numerous medical issues that he is not really taking care of. At this time, patient is bacteremic and he will be admitted to the hospital for further evaluation. 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 Stroke 2017 Type 2 diabetes mellitus with vascular disease 10/12/2019 Upper respiratory tract infection, unspecified type 10/12/2019 PAST SURGICAL HISTORY Past Surgical History: Procedure Laterality Date COLONOSCOPY N/A 12/30/2019 Surgeon: Glo Finn MD; Location: [facility] OR [facility] CORNEAL TRANSPLANT,LAMELLAR Bilateral KNEE ARTHROSCOPY 1998 OTHER PENETRATING KERATOPLASTY PHACOEMULSIFICATION OF CATARACT WITH INTRAOCULAR LENS IMPLANT Right 03/17/2019 Surgeon: Virgil Martinez MD; Location: [facility] OR [facility] ALLERGIES No Known Allergies MEDICATIONS Current home medication list reviewed: Current Discharge Medication List STOP taking these medications cephALEXin 500 mg capsule Comments: Reason for Stopping: ugusafhe-kfsydjksnc-jjyzmeduo 3.5mg-400 unit- 5,000 unit/gram topical ointment Comments: Reason for Stopping: mupirocin 2 % ointment Comments: Reason for Stopping: cephALEXin 500 mg capsule Comments: Reason for Stopping: furosemide 20 mg tablet Comments: Reason for Stopping: gabapentin (NEURONTIN) 100 mg capsule Comments: Reason for Stopping: mupirocin 2 % ointment Comments: Reason for Stopping: doxycycline hyclate 100 mg capsule Comments: Reason for Stopping: dicyclomine 20 mg tablet Comments: Reason for Stopping: tiZANidine 4 mg tablet Comments: Reason for Stopping: LISINOPRIL-HYDROCHLOROTHIAZID E 10-12.5 mg per tablet Comments: Reason for Stopping: Alcohol Swabs (BD SINGLE USE SWABS REGULAR) PadM Comments: Reason for Stopping: blood sugar diagnostic (TRUE METRIX GLUCOSE TEST STRIP) strip Comments: Reason for Stopping: furosemide 20 mg tablet Comments: Reason for Stopping: lancets (TRUEPLUS LANCETS) 33 gauge Misc Comments: Reason for Stopping: simvastatin 40 mg tablet Comments: Reason for Stopping: insulin NPH (HUMULIN N NPH U-100 INSULIN) 100 unit/mL injection Comments: Reason for Stopping: metFORMIN 1,000 mg tablet Comments: Reason for Stopping: sildenafiL 50 mg tablet Comments: Reason for Stopping: Miscellaneous Medical Supply Misc Comments: Reason for Stopping: Insulin Syringe-Needle U-100 1 mL 27 gauge x 1/2" Syrg Comments: Reason for Stopping: Insulin [place], Disposable, (PHUC PEN NEEDLE) 32 gauge x " Ndle Comments: Reason for Stopping: aspirin 81 mg EC tablet Comments: Reason for Stopping: potassium chloride 10 mEq CR tablet Comments: Reason for Stopping: peg-electrolyte soln 236-22.74-6.74 -5.86 gram solution Comments: Reason for Stopping: ofloxacin (OCUFLOX) 0.3 % ophthalmic solution Comments: Reason for Stopping: prednisoLONE acetate 1 % ophthalmic suspension drops Comments: Reason for Stopping: FAMILY HISTORY Family History Problem Relation Age of Onset Cancer Mother Liver Cancer Father lung SOCIAL HISTORY Social History Socioeconomic History Marital status: Tobacco Use Smoking status: Never Smokeless tobacco: Never Substance and Sexual Activity Alcohol use: No Drug use: No REVIEW OF SYSTEMS 10 systems negative except per HPI PHYSICAL EXAMINATION BP (!) 156/77 | Pulse 62 | Temp 36.4 ?C (97.5 ?F) | Resp 18 | Ht 5' 10" (1.778 m) | Wt 202 lb (91.6 kg) | SpO2 96% | BMI 28.98 kg/m? General: No acute distress HEENT: Normal oral mucosa, anicteric sclerae, scalp laceration Cardiovascular: RRR Lungs: Symmetric expansion, clear bilaterally Abdomen: Soft, NTND Musculoskeletal: No synovitis, normal muscle mass Genitourinary: Deferred Skin: No rash, no skin lesions Extremities: No clubbing, no cyanosis, no lower extremity edema Neuro: AAOx2, no focal deficits; generalized weakness Psych: Normal affect LABS - reviewed pertinent labs as below: CBC BMP PT/INR WBC (10*3/?L) Date Value 06/23/2024 9.00 NA (mmol/L) Date Value 06/23/2024 139 No results found for: "PT" RBC (10*6/?L) Date Value 06/23/2024 4.51 K (no units) Date Value 06/23/2024 3.5 INR (no units) Date Value 06/23/2024 1.1 PLT (10*3/?L) Date Value 06/23/2024 346 (H) CALCIUM (mg/dL) Date Value 06/23/2024 8.8 HGB (g/dL) Date Value 06/23/2024 12.7 CL (mmol/L) Date Value 06/23/2024 102 aPTT HCT (%) Date Value 06/23/2024 40.2 BUN (mg/dL) Date Value 06/23/2024 25 (H) APTT Patient (Seconds) Date Value 06/23/2024 32 CREATININE (mg/dL) Date Value 06/23/2024 1.00 IMAGING - reviewed, pertinent results as below: Hospital Encounter on 06/23/24 CT HEAD WO CONTRAST Narrative EXAM: CT HEAD WO CONTRAST HISTORY: 69 years-old Male; Provided indication: Head trauma, minor (Age >= 65y) . TECHNIQUE: Axial CT of the head was performed and reconstructed at 5 mm intervals. Coronal and sagittal reformatted images were generated. COMPARISON: CT head 06/16/2024 FINDINGS: The ventricles and cerebral sulci are within normal limits for patient's age. No hydrocephalus. No midline shift or pathological extra-axial fluid collection is present. The basal cisterns are unremarkable. No acute intracranial hemorrhage or significant mass effect is visualized. Periventricular hypodensities, nonspecific finding, likely reflect chronic microvascular ischemic changes.. The vazquez-white matter differentiation is preserved. The mastoid air cells and paranasal air sinuses are clear. Left frontoparietal scalp contusion/small hematoma. calvarium and central skull base are unremarkable. Impression No acute intracranial abnormality. CT CERVICAL SPINE WO CONTRAST Narrative CT CERVICAL SPINE WO CONTRAST HISTORY: Neck trauma (Age >= 65y) COMPARISON: CT cervical spine 04/03/2024 TECHNIQUE: Axial CT of the cervical spine was performed. Coronal and sagittal reformatted images were generated. FINDINGS: Straightening of the cervical lordosis. The vertebral bodies are normal in height and in normal alignment. No facet fracture or subluxation is present. The craniocervical junction is intact. Degenerative changes of the cervical spine most notable at C5-C7. The prevertebral soft tissues are unremarkable. Impression No acute fracture or traumatic malalignment of cervical spine. ASSESSMENT: 1. Bacteremia from methicillin-resistant Staph aureus 2. History of CVA 3. History of diabetes type 2 4. History of hypertension 5. History of hyperlipidemia 6. Morbid obesity with a BMI greater than 25 PLAN: 1. Bacteremia from methicillin-resistant Staph aureus; echocardiogram performed. Sensitivities pending. Continue with IV antibiotic therapy at this time. 2. History of CVA with ataxia; continue with statin therapy and antiplatelet therapy 3. History of type 2 diabetes/hypertension/dyslipi demia; should blood pressure blood sugar control 4. Homeless; patient may need IV antibiotics long-term. Patient may need to go to a snf facility for a little while along with physical therapy as he is a little ataxic 5. GI DVT prophylaxis DVT prophylaxis: enoxaparin Stress ulcer prophylaxis: pantoprazole Code status: FULL Advanced Care Planning (Z71.89) Above assessment and plan discussed at length with patient, patient expressed full understanding. Questions and concerned addressed. Surrogate decision maker: NO Level of care expected after discharge: HOME Time spent: 3 minutes discussing the advanced care plan Smoking Cessation: (Z71.6) Tobacco user?: NO Patient will require inpatient stay of 2 midnights or more given high risk of morbidity and mortality. [place] [facility] REGISTERED NURSE was verified during stay José Aparicio MD IM-INTERNAL MEDICINE STAFF [facility] - Health Procedure Notes Date/Time Note Provider Source 2024-06-27 11:15:00 Vascular Access Services Date of Service: 06/27/24 Patient location: [place] [address] Placed by: Adilson Lees RN 69 year old male. 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 Questions encouraged and answered accordingly. According to [facility] Operating Procedures Policy, a Time Out was performed to include procedure performed, identity of proceduralist, and identity of procedure recipient by two identifiers. Co-signed/witnessed by Anne Caro RN. Sterile technique was used : A cap and mask were donned, hand hygiene was performed and sterile gown and gloves were donned. The skin was prepped with 2% chlorhexidine and the solution was allowed to dry. A full body fenestrated drape was placed over the patient without contaminating the drape during placement. Anesthesia: Lidocaine HCL 1% infiltration to insertion site Ultrasound utilized: yes [place] Location used: yes 3CG Tip Location System used: yes Sterile dressing: yes Narrative: Patient was prepped using chlorhexidine and draped utilizing max-barrier precautions. A 4fr single-lumen Bard PICC line was introduced with the Seldinger technique into the left basilic vein in one attempt(s). Guide wire was threaded without difficulty. The micro-introducer was then placed over the guide wire, the guide wire was removed, and then the catheter was inserted through the micro-introducer. The micro-introducer was then peeled away and the PICC was secured using silk 2-0 sutures and transparent dressing. Good flow was noted from the port(s) and the catheter flushed easily. Blood loss was minimal. Trimmed length: 44 cm. Baseline Arm Circumference: 30 cm. Catheter exposed: 0 cm. Complications: none. Note: wound noted to right should upper arm area. Chest x-ray: ordered and pending REF#: [id number] Lot #: [id number] Exp Date: 03/22/25 Adilson Lees RN [facility] - Health Notes Date/Time Note Provider Source 2024-07-04 11:03:58 TRANSITIONAL CARE MANAGEMENT ASSESSMENT 07/04/2024 Rja Morales [id number] Raj Morales is a 69 year old /White male was admitted on 06/23/24 to [facility], [facility] MED SURG. He was discharged on 07/01/24 with discharge disposition of HR- Routine Discharge. Admitting Physician: Raj Ott Discharge Diagnosis: MRSA bacteremia Hx CVA w/ residual ataxia & Impaired gait Hx HTN Hx HLD Hx IDDM w/ peripheral neuropathy Hypomagnesemia resolved 1.7 No linked episodes TCM Auv-jffr-qz-face outreach documentation: Discharge Assessment Chart Assessed: 07/04/24 Chart Reviewed - Post Discharge Call Deferred due to Change in Discharge Status.: Discharged to SNF (SNF location: [facility], [address] [place] [address] () [phone] (f) [phone]) TCM Outreach Completed: 07/04/24 Future Appointments: Martell Fallon RN [facility] 2024-07-01 15:47:57 Problem: Falls, Risk of Goal: Absence of falls Outcome: Adequate for discharge Problem: Skin integrity Impaired (Risk or Actual) Goal: Wound healing Outcome: Adequate for discharge Goal: Prevention of new skin breakdown Outcome: Adequate for discharge Problem: Cardiac Output - Decreased Goal: Cardiac output within specified parameters Outcome: Adequate for discharge Problem: Venous Thromboembolism, (actual or risk of) Goal: Absence of venous thromboembolism (Risk) Outcome: Adequate for discharge Problem: Infection Risk Goal: Absence of infection Outcome: Adequate for discharge Homa More RN [facility] 2024-06-30 16:53:03 Problem: Falls, Risk of Goal: Absence of falls Outcome: Progressing as expected Problem: Skin integrity Impaired (Risk or Actual) Goal: Wound healing Outcome: Progressing as expected Goal: Prevention of new skin breakdown Outcome: Progressing as expected Problem: Cardiac Output - Decreased Goal: Cardiac output within specified parameters Outcome: Progressing as expected Problem: Venous Thromboembolism, (actual or risk of) Goal: Absence of venous thromboembolism (Risk) Outcome: Progressing as expected Problem: Infection Risk Goal: Absence of infection Outcome: Progressing as expected Kera Mcfadden RN [facility] 2024-06-29 23:46:25 Problem: Falls, Risk of Goal: Absence of falls Outcome: Progressing as expected Problem: Skin integrity Impaired (Risk or Actual) Goal: Wound healing Outcome: Progressing as expected Goal: Prevention of new skin breakdown Outcome: Progressing as expected Problem: Cardiac Output - Decreased Goal: Cardiac output within specified parameters Outcome: Progressing as expected Problem: Venous Thromboembolism, (actual or risk of) Goal: Absence of venous thromboembolism (Risk) Outcome: Progressing as expected Problem: Infection Risk Goal: Absence of infection Outcome: Progressing as expected Parvin Mcconnell RN [facility] 2024-06-29 06:23:30 Problem: Falls, Risk of Goal: Absence of falls Outcome: Progressing as expected Problem: Skin integrity Impaired (Risk or Actual) Goal: Wound healing Outcome: Progressing as expected Goal: Prevention of new skin breakdown Outcome: Progressing as expected Problem: Cardiac Output - Decreased Goal: Cardiac output within specified parameters Outcome: Progressing as expected Problem: Venous Thromboembolism, (actual or risk of) Goal: Absence of venous thromboembolism (Risk) Outcome: Progressing as expected Problem: Infection Risk Goal: Absence of infection Outcome: Progressing as expected Jessica Williamson RN [facility] 2024-06-28 19:05:35 Problem: Falls, Risk of Goal: Absence of falls Outcome: Progressing as expected Problem: Skin integrity Impaired (Risk or Actual) Goal: Wound healing Outcome: Progressing as expected Goal: Prevention of new skin breakdown Outcome: Progressing as expected Problem: Cardiac Output - Decreased Goal: Cardiac output within specified parameters Outcome: Progressing as expected Problem: Venous Thromboembolism, (actual or risk of) Goal: Absence of venous thromboembolism (Risk) Outcome: Progressing as expected Problem: Infection Risk Goal: Absence of infection Outcome: Progressing as expected Martha White RN [facility] 2024-06-28 02:17:10 Problem: Falls, Risk of Goal: Absence of falls Outcome: Progressing as expected Problem: Skin integrity Impaired (Risk or Actual) Goal: Wound healing Outcome: Progressing as expected Goal: Prevention of new skin breakdown Outcome: Progressing as expected Problem: Cardiac Output - Decreased Goal: Cardiac output within specified parameters Outcome: Progressing as expected Problem: Venous Thromboembolism, (actual or risk of) Goal: Absence of venous thromboembolism (Risk) Outcome: Progressing as expected Problem: Infection Risk Goal: Absence of infection Outcome: Progressing as expected [facility] [employer] 2024-06-27 16:18:42 Problem: Falls, Risk of Goal: Absence of falls Outcome: Progressing as expected Problem: Skin integrity Impaired (Risk or Actual) Goal: Wound healing Outcome: Progressing as expected Goal: Prevention of new skin breakdown Outcome: Progressing as expected Problem: Cardiac Output - Decreased Goal: Cardiac output within specified parameters Outcome: Progressing as expected Problem: Venous Thromboembolism, (actual or risk of) Goal: Absence of venous thromboembolism (Risk) Outcome: Progressing as expected Problem: Infection Risk Goal: Absence of infection Outcome: Progressing as expected Anne Cisneros RN [facility] [employer] 2024-06-27 09:23:43 Vancomycin Therapeutic Monitoring Note Pharmacy to monitor vancomycin dosing for patient Raj Morales, [id number]. Primary Physician: Dr. Ott ID Physician, if following: N/A Indication for Vancomycin and Goal Trough: Bacteremia - Trough 12-17 mcg/mL Age: [age] year old Weight: Wt Readings from Last 1 Encounters: 06/24/24 94.5 kg (208 lb 4.8 oz) Duration of Antibiotics: TBD (06/23/24 - present) Concurrent Antibiotics: Ceftriaxone 1gm (06/23/24) Microbiology: Blood culture (06/19/24) MRSA 2/2 sets Repeat blood culture (06/24/24) culture in process Urine culture (06/19/24) 10,000 CFU/mL E coli (R to ampicillin and bactrim) Laboratory Data and Vancomycin Dosing: Date Scr (mg/dL) CrCL (mL/min) Dosing Regimen and frequency @ Times (mg) Vancomycin Level @ Time (mcg/mL) 06/23 1.00 79.3 1500 mg IV @ 1249 - 8/2 -- 79.3 1250 mg IV Q12H @ 1129, 2233 - 8/3 -- 79.3 1250 mg IV Q12H @ 1029, 2239 18.9 @ 0459 06/26 0.85 90.6 1250 mg IV Q12H scheduled @ 1041, 2243 - 06/27 1 77 1250 mg IV q12h @ 0003, changed dose to 1000 mg iv q12h schedule 1200 - - - Assessment and Plan: . Plan is to: Dose adjusted vancomycin 1000 mg IV Q12H 06/27/2024 @ 1200 Predicted AUC 470.1, Trough 14.7; based on patient specific kinetics Plan to draw next level on: _06/28_ @ _0500_ or sooner if renal function changes. Recheck Scr in 24 hours. Thank you for allowing pharmacy to participate in the care of this patient. Please feel free to contact us with any questions or concerns. Azar Ugarte PharmD, [facility] Pager: [phone] Azar Ugarte [facility] 2024-06-27 01:59:04 Problem: Falls, Risk of Goal: Absence of falls Outcome: Progressing as expected Problem: Skin integrity Impaired (Risk or Actual) Goal: Wound healing Outcome: Progressing as expected Goal: Prevention of new skin breakdown Outcome: Progressing as expected Problem: Cardiac Output - Decreased Goal: Cardiac output within specified parameters Outcome: Progressing as expected Problem: Venous Thromboembolism, (actual or risk of) Goal: Absence of venous thromboembolism (Risk) Outcome: Progressing as expected Problem: Infection Risk Goal: Absence of infection Outcome: Progressing as expected [facility] 2024-06-26 09:56:06 Problem: Falls, Risk of Goal: Absence of falls Outcome: Progressing as expected Problem: Skin integrity Impaired (Risk or Actual) Goal: Wound healing Outcome: Progressing as expected Goal: Prevention of new skin breakdown Outcome: Progressing as expected Problem: Cardiac Output - Decreased Goal: Cardiac output within specified parameters Outcome: Progressing as expected Problem: Venous Thromboembolism, (actual or risk of) Goal: Absence of venous thromboembolism (Risk) Outcome: Progressing as expected Problem: Infection Risk Goal: Absence of infection Outcome: Progressing as expected Libby Judge RN [facility] 2024-06-26 05:59:09 Problem: Falls, Risk of Goal: Absence of falls Outcome: Progressing as expected Problem: Skin integrity Impaired (Risk or Actual) Goal: Wound healing Outcome: Progressing as expected Goal: Prevention of new skin breakdown Outcome: Progressing as expected Problem: Cardiac Output - Decreased Goal: Cardiac output within specified parameters Outcome: Progressing as expected Problem: Venous Thromboembolism, (actual or risk of) Goal: Absence of venous thromboembolism (Risk) Outcome: Progressing as expected Problem: Infection Risk Goal: Absence of infection Outcome: Progressing as expected Kamilla Prajapati RN [facility] 2024-06-25 18:13:35 Problem: Falls, Risk of Goal: Absence of falls Outcome: Progressing as expected Problem: Skin integrity Impaired (Risk or Actual) Goal: Wound healing Outcome: Progressing as expected Goal: Prevention of new skin breakdown Outcome: Progressing as expected Problem: Cardiac Output - Decreased Goal: Cardiac output within specified parameters Outcome: Progressing as expected Problem: Venous Thromboembolism, (actual or risk of) Goal: Absence of venous thromboembolism (Risk) Outcome: Progressing as expected Problem: Infection Risk Goal: Absence of infection Outcome: Progressing as expected [facility] 2024-06-25 11:38:31 Summary: Vancomycin Monitoring Vancomycin Therapeutic Monitoring Note Pharmacy to monitor vancomycin dosing for patient Raj Morales, [id number]. Primary Physician: Dr. Ott ID Physician, if following: N/A Indication for Vancomycin and Goal Trough: Bacteremia - Trough 12-17 mcg/mL Age: [age] year old Weight: Wt Readings from Last 1 Encounters: 06/24/24 94.5 kg (208 lb 4.8 oz) Duration of Antibiotics: TBD (06/23/24 - present) Concurrent Antibiotics: Ceftriaxone 1gm (06/23/24) Microbiology: Blood culture (06/19/24) MRSA 2/2 sets Repeat blood culture (06/24/24) culture in process Urine culture (06/19/24) 10,000 CFU/mL E coli Laboratory Data and Vancomycin Dosing: Date Scr (mg/dL) CrCL (mL/min) Dosing Regimen and frequency @ Times (mg) Vancomycin Level @ Time (mcg/mL) 06/23 1.00 79.3 1500 mg IV @ 1249 - 06/24 -- 79.3 1250 mg IV Q12H @ 1129, 2232 - 06/25 -- 79.3 1250 mg IV Q12H @ 1029, scheduled for 2229 18.9 @ 0459 - - - - Assessment and Plan: Level check today returned 18.9 mcg/mL Plan is to: Continue current regimen of: Vancomycin 1250 mg IV Q12H (~13 mg/kg) Predicted AUC 558.9, Trough 17.8; based on patient specific kinetics Plan to draw next level on: _06/28_ @ _0500_ or sooner if renal function changes. Recheck Scr tomorrow. Thank you for allowing pharmacy to participate in the care of this patient. Please feel free to contact us with any questions or concerns. Ilene Marroquin PharmD, [facility] Pager: [phone] 06/25/2024 11:38 Ilene Marroquin [facility] 2024-06-25 01:01:18 Problem: Falls, Risk of Goal: Absence of falls Outcome: Progressing as expected Problem: Skin integrity Impaired (Risk or Actual) Goal: Wound healing Outcome: Progressing as expected Goal: Prevention of new skin breakdown Outcome: Progressing as expected Problem: Cardiac Output - Decreased Goal: Cardiac output within specified parameters Outcome: Progressing as expected Problem: Venous Thromboembolism, (actual or risk of) Goal: Absence of venous thromboembolism (Risk) Outcome: Progressing as expected Problem: Infection Risk Goal: Absence of infection Outcome: Progressing as expected [facility] [employer] 2024-06-24 16:18:07 Problem: Falls, Risk of Goal: Absence of falls Outcome: Progressing as expected Problem: Skin integrity Impaired (Risk or Actual) Goal: Wound healing Outcome: Progressing as expected Goal: Prevention of new skin breakdown Outcome: Progressing as expected Problem: Cardiac Output - Decreased Goal: Cardiac output within specified parameters Outcome: Progressing as expected Problem: Venous Thromboembolism, (actual or risk of) Goal: Absence of venous thromboembolism (Risk) Outcome: Progressing as expected Problem: Infection Risk Goal: Absence of infection Outcome: Progressing as expected T Digna Rodriguez RN [facility] [employer] 2024-06-24 14:48:17 Summary: Vancomycin Monitoring Images from the original note were not included. Vancomycin Therapeutic Monitoring Note Pharmacy to monitor vancomycin dosing for patient Raj Morales, [id number]. Primary Physician: Dr. Ott ID Physician, if following: N/A Indication for Vancomycin and Goal Trough: Bacteremia - Trough 12-17 mcg/mL Age: [age] year old Weight: Wt Readings from Last 1 Encounters: 06/24/24 94.5 kg (208 lb 4.8 oz) Duration of Antibiotics: TBD (06/23/24 - present) Concurrent Antibiotics: Ceftriaxone 1gm (06/23/24) Microbiology: Blood culture (06/19/24) MRSA 2/2 sets Repeat blood culture (06/24/24) culture in process Laboratory Data and Vancomycin Dosing: Date Scr (mg/dL) CrCL (mL/min) Dosing Regimen and frequency @ Times (mg) Vancomycin Level @ Time (mcg/mL) 06/23 1.00 79.3 1500 mg IV @ 1249 - 06/24 -- 79.3 1250 mg IV Q12H @ 1129 - - - - - - Assessment and Plan: Discussed with Dr. Ott Plan is to: Start vancomycin scheduled at a dose of: Vancomycin 1250 mg IV Q12H (~13 mg/kg) Predicted AUC 544.3, Trough 17.3 Plan to draw next level on: _06/25_ @ _0500_ Thank you for allowing pharmacy to participate in the care of this patient. Please feel free to contact us with any questions or concerns. Ilene Marroquin RPH, RPH 06/24/2024 2:36 PM [facility] Department of Pharmacy - [facility] Phone: ADC: [phone] [facility] 2024-06-23 23:49:41 Problem: Falls, Risk of Goal: Absence of falls Outcome: Progressing as expected Problem: Skin integrity Impaired (Risk or Actual) Goal: Wound healing Outcome: Progressing as expected Goal: Prevention of new skin breakdown Outcome: Progressing as expected Problem: Cardiac Output - Decreased Goal: Cardiac output within specified parameters Outcome: Progressing as expected Problem: Venous Thromboembolism, (actual or risk of) Goal: Absence of venous thromboembolism (Risk) Outcome: Progressing as expected Problem: Infection Risk Goal: Absence of infection Outcome: Progressing as expected Enrique Dumont RN [facility] 2024-06-23 15:52:58 Patient admitted to 2225 for diagnosis of bacteremia, fall. Patient agrees to admission, discussed plan of care with patient and family. Patient is awake, A&Ox4, RR even and unlabored on RA. Color appropriate for race. PIV intact x1. No adverse reaction to medications administered while in ED. Belongings with patient to unit. Justine Peres RN [facility] 2024-06-23 15:14:29 Nurse Report Report given to ISXTO Sawyer. Chief complaint, assessment findings, infusion verify and orders reviewed. Plan of care discussed at bedside with patient and both nurses. Patient/family members verbalized understanding. Justine Peres RN [facility] 2024-06-23 11:27:44 Patient arrived by [facility] for a fall. EMS reports patient fell off his walker, and the hit the left side of his head. No LOC. BGL 285. Patient is awake and alert, oriented x4. Contusion noted to the left side of the head. Quinn Moyer RN [facility] 2024-06-23 11:25:00 AdmissionCare Guideline: Sepsis (and Other Febrile Illness without Focal Infection) - INPT, Inpatient Based on the indications selected for the patient, the bed status of Inpatient was determined to be MET The following indications were selected as present at the time of evaluation of the patient: - Clinical Indications for Admission to Inpatient Care - Admission is indicated for 1 or more of the following: - Bacteremia (if blood cultures performed) AdmissionCare documentation entered by: Juno Hwang [facility] [place] [employer], 28th edition, Copyright ? 2023 [facility] [place] [employer] [facility] All Rights Reserved. [id number] [facility] 2024-06-20 12:48:08 Pt given printed and verbal discharge instructions regarding impetigo, encouraged hydration. Prescriptions provided. Discussed antibiotic therapy and to take until all completed unless adverse reaction occurs - if occurs, discontinue medication and follow up with pcp/seek medical attention. Pt verbalized understanding of instructions, pt awake alert oriented, resp reg unlabored, skin w/d, color appropriate for race, moves all ext well, pt encouraged to follow up with pcp. Advised to seek medical attention for new/prolonged/worsening of symptoms. Symptoms addressed. No adverse reaction to meds given in ER noted upon discharge. Pt leaving amb with steady gait, in no apparent distress. Elsa White RN [facility] 2024-06-20 10:53:49 Patient arrived ambulatory via pov, states he was sent here for positive blood cultures. Patient c/o of abrasion to left chest/axilla area. Patient does not know which referred him here Zarina Mandujano RN [facility] 2024-06-20 10:52:00 Images from the original note were not included. [facility] Emergency Department Note Patient Name: Raj Morales Date of : 1955 69 year old male Treatment Room: [facility] ED ELVIRA WOODS/KIRSTEN Primary Care Physician: PATIENT DOES NOT HAVE A PCP Patient Escorted by: Self [9] Mode of Arrival: Personal means [1] EMS Treatment Prior to ED Arrival: Travel and Exposure Screening: Symptoms Does patient have any of these symptoms?: (not recorded) Exposure Screening Has patient had contact with someone with a communicable disease in the last month?: (not recorded) Diseases exposed to:: (not recorded) Is Patient ?: (not recorded) Exposure Date: (not recorded) Chief Complaint: Chief Complaint Patient presents with Other Positive blood cultures History of Present Illness: 69 yo male presenting to the ED, staying that he was called to return to the ED because he had Positive Blood Cultures for Gram Positive Cocci I on bottle, no growth in the other bottles. He was seen yesterday in the ED for multiple complaints, had a extensive work up, and in lure that everything was not critical, he was treated in the ED and DC Home. 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) 10/12/2019 Cataract OS ONLY Cellulitis of foot, left 04/12/2020 Diabetes Diabetic eye exam 12/01/2019 Added automatically from request for surgery [id number] Dyslipidemia Edema of both legs 02/28/2020 Erectile dysfunction, unspecified erectile dysfunction type 02/28/2020 Essential hypertension 02/28/2020 HTN (hypertension) Hyperlipidemia Obesity (BMI 30-39.9) 03/17/2019 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 Alcohol Use No. Drug Use No. Past Surgical History: Past Surgical History: Procedure Laterality Date COLONOSCOPY N/A 12/30/2019 Surgeon: Glo Finn MD; Location: [facility] OR [facility] CORNEAL TRANSPLANT,LAMELLAR Bilateral KNEE ARTHROSCOPY 1998 OTHER PENETRATING KERATOPLASTY PHACOEMULSIFICATION OF CATARACT WITH INTRAOCULAR LENS IMPLANT Right 03/17/2019 Surgeon: Virgil Martinez MD; Location: [facility] OR [facility] Review of Systems: Review of Systems Constitutional: Positive for fatigue. Negative for activity change, appetite change, chills, diaphoresis and fever. HENT: Negative for congestion, ear discharge, ear pain, rhinorrhea, sore throat and trouble swallowing. Eyes: Negative for photophobia, pain, discharge and redness. Respiratory: Negative for cough, chest tightness, shortness of breath and wheezing. Cardiovascular: Negative for chest pain, palpitations and leg swelling. Gastrointestinal: Negative for abdominal distention, abdominal pain, blood in stool, constipation, nausea and vomiting. Genitourinary: Negative for dysuria, urgency, polyuria, frequency, hematuria and flank pain. Musculoskeletal: Negative for arthralgias, joint swelling, myalgias and neck stiffness. Skin: Negative for color change, rash and wound. Neurological: Positive for weakness. Negative for dizziness, seizures, syncope, facial asymmetry, light-headedness, numbness and headaches. Psychiatric/Behavioral: Positive for sleep disturbance. Negative for agitation, confusion, hallucinations and self-injury. The patient is not nervous/anxious. Hematological: Negative for adenopathy and cold intolerance. Does not bruise/bleed easily. Endocrine: Negative for cold intolerance, polydipsia and polyuria. Physical Exam: ED Triage Vitals [06/20/24 1058] Weight 91.6 kg (202 lb) Actual or estimated Estimated by patient/family report Height 1.778 m (5' 10") BP (!) 165/83 Pulse 81 Resp 16 Temp 37 ?C (98.6 ?F) Temp source Oral SpO2 99 % Measured on Room air Physical Exam Vitals and nursing note reviewed. Constitutional: General: He is sleeping. He is not in acute distress. Appearance: He is well-developed and overweight. He is not ill-appearing, toxic-appearing or diaphoretic. Comments: Dishevel, smells like urine HENT: Head: Normocephalic and atraumatic. Right Ear: External ear normal. Left Ear: External ear normal. Nose: Nose normal. Mouth/Throat: Pharynx: No oropharyngeal exudate. Eyes: General: No scleral icterus. Right eye: No discharge. Left eye: No discharge. Conjunctiva/sclera: Conjunctivae normal. Pupils: Pupils are equal, round, and reactive to light. Neck: Thyroid: No thyromegaly. Vascular: No JVD. Trachea: No tracheal deviation. Cardiovascular: Rate and Rhythm: Normal rate and regular rhythm. Heart sounds: Normal heart sounds. No murmur heard. No friction rub. No gallop. Pulmonary: Effort: Pulmonary effort is normal. No respiratory distress. Breath sounds: No stridor, decreased air movement or transmitted upper airway sounds. Examination of the right-lower field reveals wheezing. Examination of the left-lower field reveals wheezing. Wheezing present. No decreased breath sounds, rhonchi or rales. Chest: Chest wall: No tenderness. Abdominal: General: Bowel sounds are normal. There is no distension. Palpations: Abdomen is soft. There is no mass. Tenderness: There is no abdominal tenderness. There is no guarding or rebound. Musculoskeletal: General: No tenderness or deformity. Normal range of motion. Cervical back: Normal range of motion and neck supple. Lymphadenopathy: Cervical: No cervical adenopathy. Skin: General: Skin is warm and dry. Coloration: Skin is not pale. Findings: No erythema or rash. Neurological: Mental Status: He is oriented to person, place, and time and easily aroused. Cranial Nerves: No cranial nerve deficit. Motor: No abnormal muscle tone. Coordination: Coordination normal. Deep Tendon Reflexes: Reflexes are normal and symmetric. Reflexes normal. Psychiatric: Behavior: Behavior normal. Behavior is cooperative. Thought Content: Thought content normal. Judgment: Judgment normal. Radiology: No orders to display Lab Results: Lab Results - No data to display EKG: If EKG completed, see Procedure Note. Orders and Treatments: No orders of the defined types were placed in this encounter. Orders Placed This Encounter Medications cephALEXin (KEFLEX) capsule 1,000 mg cephALEXin 500 mg capsule [id number]-nrvozfiga 3.5mg-400 unit- 5,000 unit/gram topical ointment First Provider Eval: ED Events Date/Time Event User Comments 06/20/24 1111 Medical Screening Begins MULUGETA PALMA MD -- 06/20/24 1111 First Provider Evaluation MULUGETA PALMA MD -- ED COURSE Diagnosis/Impression as of 06/20/24 1209 Impetigo any site Patient's condition stable, wound does not look clearly infected, Positive Blood Culture for Gram Positive Cocci in only one Bottle with no growth and in the second, possibly skin contamination, wound cleaned in the ED, Triple Antibiotic ointment applied, as well as a single dose of 1000 mg of Keflex provided in the ED prior to his Discharge. Procedures: Procedures MDM: Medical Decision Making Problems Addressed: Impetigo any site: self-limited or minor problem Amount and/or Complexity of Data Reviewed External Data Reviewed: labs and notes. Details: From previous visits reviewed and compared with current data Risk OTC drugs. Prescription drug management. Flowsheet Documentation: Scoring Tools: No data recorded Disposition/Condition: ED Disposition ED Disposition Disch - Home Condition Stable Comment -- Discharge Medications: Patient's Medications START taking these medications CEPHALEXIN 500 MG CAPSULE Take 1 capsule by mouth 4 (four) times daily. [id number]-[id number] 3.5MG-400 UNIT- 5,000 UNIT/GRAM TOPICAL OINTMENT Apply to area(s) 4 (four) times daily. CONTINUE taking these medications which have NOT CHANGED ALCOHOL SWABS (BD SINGLE USE SWABS REGULAR) PADM Apply to area(s) daily. Monitor Blood Glucose daily ASPIRIN 81 MG EC TABLET Take 1 tablet by mouth daily. BLOOD SUGAR DIAGNOSTIC (TRUE METRIX GLUCOSE TEST STRIP) STRIP Monitor Blood Glucose daily CEPHALEXIN 500 MG CAPSULE Take 1 capsule by mouth 4 (four) times daily. DICYCLOMINE 20 MG TABLET Take 1 tablet by mouth 4 (four) times daily as needed for Abdominal pain. DOXYCYCLINE HYCLATE 100 MG CAPSULE Take 1 capsule by mouth in the morning and 1 capsule in the evening. FUROSEMIDE 20 MG TABLET Take 1 tablet by mouth daily. FUROSEMIDE 20 MG TABLET Take 1 tablet by mouth every morning. GABAPENTIN (NEURONTIN) 100 MG CAPSULE Take 1 capsule by mouth in the morning and 1 capsule at noon and 1 capsule in the evening. INSULIN NEEDLES, DISPOSABLE, (PHUC PEN NEEDLE) 32 GAUGE X 5/32" NDLE Use as directed INSULIN NPH (HUMULIN N NPH U-100 INSULIN) 100 UNIT/ML INJECTION INJECT 35 UNITS SUBCUTANEOUSLY EVERY MORNING AND EVENING. Office visit needed for further refills. INSULIN SYRINGE-NEEDLE U-100 1 ML 27 GAUGE X 1/2" SYRG Use as directed LANCETS (TRUEPLUS LANCETS) 33 GAUGE [facility] Monitor Blood Glucose daily LISINOPRIL-HYDROCHLOROTHIAZIDE 10-12.5 MG PER TABLET Take 1 tablet by mouth once daily METFORMIN 1,000 MG TABLET Take 1 tablet by mouth 2 (two) times daily with meals. [facility] E11.8: dispense Insulin Syringe 31 gauge brand covered by insurance. Monitor Blood Sugar at Home BID MUPIROCIN 2 % OINTMENT Apply to area(s) 3 (three) times daily. MUPIROCIN 2 % OINTMENT Apply to area(s) 3 (three) times daily. OFLOXACIN (OCUFLOX) 0.3 % OPHTHALMIC SOLUTION Place 1 Drop in right eye 3 (three) times daily. PEG-ELECTROLYTE SOLN [id number] -5.86 GRAM SOLUTION Take as directed POTASSIUM CHLORIDE 10 MEQ CR TABLET Take 1 tablet by mouth every Thursday, and Thursday in the evening. PREDNISOLONE ACETATE 1 % OPHTHALMIC SUSPENSION DROPS Place 1 Drop in right eye 4 (four) times daily. SILDENAFIL 50 MG TABLET Take 1 tablet by mouth as needed (Erectile dysfunction). Take 50mg x 1, about 30 mins - 4 hours prior to sexual activity. SIMVASTATIN 40 MG TABLET Take 1 tablet by mouth at bedtime. TIZANIDINE 4 MG TABLET Take 1 tablet by mouth every 6 (six) hours as needed for Pain (scale 7-10). START taking Modified Medications as Prescribed No medications on file STOP taking these medications No medications on file Follow-up: Electronically signed by: Mulugeta Palma MD 06/20/24 1210 T [facility] 2024-06-19 18:04:26 Patient given printed and verbal discharge instructions regarding homelessness, leg edema, abrasion 1 Prescriptions provided Pt verbalized understanding of instructions, pt awake alert oriented, resp reg unlabored, skin w/d, color appropriate for race, moves all ext well,pt encouraged to follow up with pcp. Advised to seek medical attention for new/prolonged/worsening of symptoms. No adverse reaction to meds given in ER noted upon discharge PIV d'cd, dressing to site, catheter in tact. Awake, alert oriented, resp reg unlabored, skin w/d, pt leaving amb with steady gait, in no apparent distress. T Jose Brooks RN [facility] 2024-06-19 16:31:13 Finished sandwich, chocolate pudding, half a jello cup and 2 packages of gram crackers. Patient fed him self independently. Tolerated well. [facility] 2024-06-19 16:07:28 Provided patient with sandwich, jello, crackers and pudding. Patient swallowing well. Able to feed self independently. [facility] 2024-06-19 13:45:00 Patient asked nurse "why are all the kids doing this" (makes hand sign), when nurse clarifies with patient states "there are 2 girls in my room, sitting there and and there (points to empty chairs) and they just crawled under my bed". [facility] 2024-06-19 13:34:00 Patient arrived covered/soaked in urine. Tech and nurse cleaned patient and placed in clean gown. T [facility] 2024-06-19 12:34:00 [facility] states: "Came in for chronic bodyaches for 3 years. No new complaints, BGL of 92 mg/dL." Patient states he falls everyday and that he fell today, no idea what time it happened. Patient not sure if the bruise/abrasion on his forehead is from today's fall or not. T Desire Panchal RN [facility] 2024-06-16 19:54:51 Pt given printed and verbal discharge instructions regarding closed head injury, encouraged hydration Pt verbalized understanding of instructions, pt awake alert oriented, resp reg unlabored, skin w/d, color appropriate for race, moves all ext well,pt encouraged to follow up with pcp Advised to seek medical attention for new/prolonged/worsening of symptoms No adverse reaction to meds given in ER noted upon discharge Awake, alert oriented, resp reg unlabored, skin w/d, pt assisted to lobby via wheelchair, pt to find transportation home, in no apparent distress [facility] 2024-06-16 18:10:23 Pt presents to ED via [facility] for a fall from standing. EMS states that he tripped on walker. Pt has an abrasion to the forehead and no other c/o. No LOC, and denies dizziness. Hx of stroke Jame Sahrp RN [facility] 2024-06-16 00:29:11 Pt discharged with diagnosis of fall from standing, right leg swelling, balance problem, encouraged hydration. Printed and verbal instructions reviewed with and given to pt. Pt. verbalized understanding of teaching and recommended follow-up. Denies questions or concerns at this time. Pt wheeled out to lobby at discharge. Appears in no apparent distress. vault worker was consulted, pt will be in waiting room until data integrity consultant arrives. Advised to seek medical attention for new/prolonged/worsening of symptoms. No adverse reaction to meds given in ER noted upon discharge PIV d'cd, dressing to site, catheter in tact. Mel Obando RN [facility] 2024-06-15 23:32:56 Pt was given hygiene supplies and clothes and directed to the shower to take shower and freshen up due to no means to do so. Pt is "homeless". Pt was also given snacks [facility] 2024-06-15 18:07:43 Pt uses a walker to ambulate [facility] 2024-06-15 18:00:18 Pt arrived via [facility] with c/o fall and edema to BLE. Pt reports "it feels like my equilibrium is off". Pt has a strong odor of urine. Hemalatha Saini RN [facility] 2024-06-15 17:52:00 Images from the original note were not included. 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 No blood thinners. He states right leg swelling has increased over hte last few months and can't wear a sock anymore. He states its very hard to be homeless but has been keeping his blood sugars in check. 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 Alcohol Use No. Drug Use No. Past Surgical History: Past Surgical History: Procedure Laterality Date COLONOSCOPY N/A 12/30/2019 Surgeon: Glo Finn MD; Location: [facility] OR [facility] CORNEAL TRANSPLANT,LAMELLAR Bilateral KNEE ARTHROSCOPY 1998 OTHER PENETRATING KERATOPLASTY PHACOEMULSIFICATION OF CATARACT WITH INTRAOCULAR LENS IMPLANT Right 03/17/2019 Surgeon: Virgil Martinez MD; Location: [facility] Review of Systems: Review of Systems Cardiovascular: Positive for leg swelling. Skin: Positive for wound. Neurological: Positive for dizziness. All other systems reviewed and are negative. Physical Exam: ED Triage Vitals [06/15/24 1801] Weight 99.8 kg (220 lb) Actual or estimated Estimated by patient/family report Height 1.778 m (5' 10") BP (!) 151/71 Pulse 73 Resp 16 Temp 36.7 ?C (98 ?F) Temp source Oral SpO2 97 % Measured on Room air Physical Exam Vitals and nursing note reviewed. Constitutional: General: He is not in acute distress. Appearance: He is not diaphoretic. Comments: Very poor personal hygiene HENT: Head: Normocephalic and atraumatic. Eyes: Pupils: Pupils are equal, round, and reactive to light. Neck: Vascular: No JVD. Cardiovascular: Rate and Rhythm: Normal rate. Heart sounds: Normal heart sounds. No murmur heard. Pulmonary: Effort: Pulmonary effort is normal. No respiratory distress. Breath sounds: Normal breath sounds. Abdominal: General: There is no distension. Palpations: Abdomen is soft. Tenderness: There is no abdominal tenderness. Musculoskeletal: General: Normal range of motion. Cervical back: Neck supple. Comments: R leg chronically swollen with blisters from shoe not being changed- not wearing sock Skin: General: Skin is warm and dry. Comments: Right armpit sore, he states his walker hit it when he fell Neurological: Mental Status: He is alert and oriented to person, place, and time. Psychiatric: Behavior: Behavior normal. Radiology: CT HEAD WO CONTRAST Final Result EXAM: CT HEAD WO CONTRAST HISTORY: 69 years-old Male; Provided indication: Head trauma, minor (Age >= 65y) . TECHNIQUE: Axial CT of the head was performed and reconstructed at 5 mm intervals. Coronal and sagittal reformatted images were generated. COMPARISON: CT head 04/03/2024 FINDINGS: The ventricles and cerebral sulci are normal in caliber and configuration. No midline shift or pathological extra-axial fluid collection is present. The basal cisterns are unremarkable. No acute intracranial hemorrhage or significant mass effect is visualized. No significant parenchymal attenuation abnormality is seen. The vazquez-white matter differentiation is preserved. The mastoid air cells and paranasal air sinuses are clear. The calvarium and central skull base are unremarkable. IMPRESSION No acute intracranial abnormality. Lab Results: Lab Results CBC WITH DIFF - Abnormal Result Value Ref Range WBC 10.58 4.20 - 10.70 10*3/?L RBC 4.14 (*) 4.26 - 5.52 10*6/?L HGB 12.1 (*) 12.2 - 16.4 g/dL HCT 36.6 (*) 38.4 - 49.3 % MCV 88.4 81.7 - 95.6 fL MCH 29.2 26.1 - 32.7 pg MCHC 33.1 31.2 - 35.0 g/dL RDW-SD 43.0 38.5 - 51.6 fL RDW-CV 13.2 12.1 - 15.4 % PLT 241 150 - 328 10*3/?L MPV 9.6 (*) 9.8 - 13.0 fL NRBC/100 WBC 0.0 0.0 - 10.0 /100 WBCs NRBC x10 3 <0.01 10*3/?L GRAN MAT (NEUT) % 77.2 % IMM GRAN % 0.40 % LYMPH % 11.2 % MONO % 10.1 % EOS % 0.9 % BASO % 0.2 % GRAN MAT x10 3 (ANC) 8.18 (*) 1.99 - 6.95 10*3/uL IMM GRAN x10 3 0.04 0.00 - 0.06 10*3/uL LYMPH x10 3 1.18 1.09 - 3.23 10*3/uL MONO x10 3 1.07 (*) 0.36 - 1.02 10*3/uL EOS x10 3 0.09 0.06 - 0.53 10*3/uL BASO x10 3 <0.03 0.01 - 0.09 10*3/uL COMP. METABOLIC PANEL (70913) - Abnormal NA 136 135 - 145 mmol/L K 4.2 3.5 - 5.0 mmol/L CL 103 98 - 108 mmol/L CO2 TOTAL 28 23 - 31 mmol/L AGAP 5 2 - 16 BUN 21 7 - 23 mg/dL GLUCOSE 88 70 - 110 mg/dL CREATININE 0.97 0.60 - 1.25 mg/dL TOTAL BILI 1.0 0.1 - 1.1 mg/dL CALCIUM 8.6 8.6 - 10.6 mg/dL T PROTEIN 6.8 6.3 - 8.2 g/dL ALBUMIN 3.4 (*) 3.5 - 5.0 g/dL ALK PHOS 141 (*) 34 - 122 U/L ALTv 14 5 - 50 U/L AST(SGOT) 23 13 - 40 U/L eGFR 84.0 mL/min/1.73m2 D-DIMER - Abnormal D-DIMER 1.38 (*) <0.50 ?g/mL (FEU) LACTIC ACID WHOLE BLOOD - Normal LACTIC ACID 1.33 0.50 - 2.20 mmol/L EKG: If EKG completed, see Procedure Note. Orders and Treatments: Orders Placed This Encounter Procedures CT HEAD WO CONTRAST Cbc with Diff Comp. Metabolic Panel (37114) Lactic Acid Whole Blood Lactic Acid Whole Blood D-Dimer No orders of the defined types were placed in this encounter. First Provider Eval: ED Events Date/Time Event User Comments 06/15/241801 Medical Screening Begins ZO GREEN MD -- 06/15/241801 First Provider Evaluation ZO GREEN MD -- ED COURSE Diagnosis/Impression as of 06/15/24 2221 Fall from standing, initial encounter Right leg swelling Balance problem Homeless Procedures: Procedures MDM: Medical Decision Making Labs show normal lactate and normal WBC Unlikely to be cellulitis Elevated ddimer will do ultrasound of leg Balance issues are chronic and patient states matthew lesion stroke previously Other labs similar to previous and nothing new CT head shows nothing acute 10:05 PM Prelim report of venous doppler of right leg showno DVT signed by DR Melvin Discharged as no emergent condition found. Problems Addressed: Balance problem: chronic illness or injury Fall from standing, initial encounter: complicated acute illness or injury Homeless: chronic illness or injury Right leg swelling: chronic illness or injury Amount and/or Complexity of Data Reviewed Labs: ordered. Decision-making details documented in ED Course. Radiology: ordered. Decision-making details documented in ED Course. Risk Diagnosis or treatment significantly limited by social determinants of health. Risk Details: homelessness Flowsheet Documentation: Scoring Tools: No data recorded Disposition/Condition: ED Disposition ED Disposition Disch - Home Condition Stable Comment -- Discharge Medications: Patient's Medications START taking these medications No medications on file CONTINUE taking these medications which have NOT CHANGED ALCOHOL SWABS (BD SINGLE USE SWABS REGULAR) PADM Apply to area(s) daily. Monitor Blood Glucose daily ASPIRIN 81 MG EC TABLET Take 1 tablet by mouth daily. BLOOD SUGAR DIAGNOSTIC (TRUE METRIX GLUCOSE TEST STRIP) STRIP Monitor Blood Glucose daily CEPHALEXIN 500 MG CAPSULE Take 1 capsule by mouth 4 (four) times daily. DICYCLOMINE 20 MG TABLET Take 1 tablet by mouth 4 (four) times daily as needed for Abdominal pain. DOXYCYCLINE HYCLATE 100 MG CAPSULE Take 1 capsule by mouth in the morning and 1 capsule in the evening. FUROSEMIDE 20 MG TABLET Take 1 tablet by mouth daily. FUROSEMIDE 20 MG TABLET Take 1 tablet by mouth every morning. GABAPENTIN (NEURONTIN) 100 MG CAPSULE Take 1 capsule by mouth in the morning and 1 capsule at noon and 1 capsule in the evening. INSULIN NEEDLES, DISPOSABLE, (PHUC PEN NEEDLE) 32 GAUGE X 5/32" NDLE Use as directed INSULIN NPH (HUMULIN N NPH U-100 INSULIN) 100 UNIT/ML INJECTION INJECT 35 UNITS SUBCUTANEOUSLY EVERY MORNING AND EVENING. Office visit needed for further refills. INSULIN SYRINGE-NEEDLE U-100 1 ML 27 GAUGE X 1/2" SYRG Use as directed LANCETS (TRUEPLUS LANCETS) 33 GAUGE [facility] Monitor Blood Glucose daily LISINOPRIL-HYDROCHLOROTHIAZIDE 10-12.5 MG PER TABLET Take 1 tablet by mouth once daily METFORMIN 1,000 MG TABLET Take 1 tablet by mouth 2 (two) times daily with meals. [facility] E11.8: dispense Insulin Syringe 31 gauge brand covered by insurance. Monitor Blood Sugar at Home BID MUPIROCIN 2 % OINTMENT Apply to area(s) 3 (three) times daily. OFLOXACIN (OCUFLOX) 0.3 % OPHTHALMIC SOLUTION Place 1 Drop in right eye 3 (three) times daily. PEG-ELECTROLYTE SOLN 236-22.74-6.74 -5.86 GRAM SOLUTION Take as directed POTASSIUM CHLORIDE 10 MEQ CR TABLET Take 1 tablet by mouth every Thursday, and Thursday in the evening. PREDNISOLONE ACETATE 1 % OPHTHALMIC SUSPENSION DROPS Place 1 Drop in right eye 4 (four) times daily. SILDENAFIL 50 MG TABLET Take 1 tablet by mouth as needed (Erectile dysfunction). Take 50mg x 1, about 30 mins - 4 hours prior to sexual activity. SIMVASTATIN 40 MG TABLET Take 1 tablet by mouth at bedtime. TIZANIDINE 4 MG TABLET Take 1 tablet by mouth every 6 (six) hours as needed for Pain (scale 7-10). START taking Modified Medications as Prescribed No medications on file STOP taking these medications No medications on file Follow-up: [facility] 2024-04-06 05:25:21 Pt given printed and verbal discharge instructions regarding foot ulcer, diabetic mononeuropathy, homeless, bilateral leg edema. Encouraged hydration, Prescriptions provided: Discussed ibuprofen and to take with food to avoid GI distress. Discussed antibiotic therapy and to take until all completed unless adverse reaction occurs - if occurs, discontinue medication and follow up with pcp/seek medical attention Pt verbalized understanding of instructions, pt awake alert oriented, resp reg unlabored, skin w/d, color appropriate for race, moves all ext well,pt encouraged to follow up with pcp. Advised to seek medical attention for new/prolonged/worsening of symptoms, Symptoms improved No adverse reaction to meds given in ER noted upon discharge PIV d'cd, dressing to site, catheter in tact. Awake, alert oriented, resp reg unlabored, skin w/d, pt leaving by wheelchair, in no apparent distress. [facility] 2024-04-06 01:49:35 Pt brought in by [facility] for wound on right foot and elevated blood sugar. EMS reports pt's blood glucose was 580 Milli Lopez RN [facility] 2024-04-06 01:31:00 Images from the original note were not included. [facility] Emergency Department Note Patient Name: Raj Morales Date of : 1955 69 year old male Treatment [facility] Primary Care Physician: PATIENT DOES NOT HAVE A PCP Patient Escorted by: Self [9] Mode of Arrival: EMS - [facility] ([place]) [43] EMS Treatment Prior to ED Arrival: CONTRACTING SUPPORT SPECIALIST treatment: site monitor;FSBG;IVF;Saline lock Travel and Exposure Screening: Symptoms Does patient have any of these symptoms?: (not recorded) Exposure Screening Has patient had contact with someone with a communicable disease in the last month?: (not recorded) Diseases exposed to:: (not recorded) Is Patient ?: (not recorded) Exposure Date: (not recorded) Chief Complaint: Chief Complaint Patient presents with Foot Pain History of Present Illness: History provided by: Patient enterprise engineer used: No Foot Pain Location: Foot Time since incident: 3 days Injury: no Foot location: R foot and L foot Pain details: Quality: Tingling and burning Radiates to: Does not radiate Severity: Moderate Onset quality: Gradual Duration: 4 days Timing: Constant Progression: Unchanged Chronicity: Chronic Dislocation: no Foreign body present: No foreign bodies Tetanus status: Unknown Prior injury to area: No Relieved by: None tried Worsened by: Bearing weight and activity Ineffective treatments: None tried Associated symptoms: numbness and swelling Associated symptoms: no fatigue and no fever Risk factors: no concern for non-accidental trauma, no frequent fractures, no known bone disorder, no obesity and no recent illness Risk factors comment: Diabetic patient not compliant with medications 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) 10/12/2019 Cataract OS ONLY Cellulitis of foot, left 04/12/2020 Diabetes Diabetic eye exam 12/01/2019 Added automatically from request for surgery [id number] Dyslipidemia Edema of both legs 02/28/2020 Erectile dysfunction, unspecified erectile dysfunction type 02/28/2020 Essential hypertension 02/28/2020 HTN (hypertension) Hyperlipidemia Obesity (BMI 30-39.9) 03/17/2019 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 Alcohol Use No. Drug Use No. Past Surgical History: Past Surgical History: Procedure Laterality Date COLONOSCOPY N/A 12/30/2019 Surgeon: Glo Finn MD; Location: [facility] OR Location CORNEAL TRANSPLANT,LAMELLAR Bilateral KNEE ARTHROSCOPY 1999 OTHER PENETRATING KERATOPLASTY PHACOEMULSIFICATION OF CATARACT WITH INTRAOCULAR LENS IMPLANT Right 03/17/2019 Surgeon: Virgil Martinez MD; Location: [facility] OR [facility] Review of Systems: Review of Systems Constitutional: Negative for activity change, appetite change, chills, diaphoresis, fatigue and fever. HENT: Negative for congestion, ear discharge, ear pain, rhinorrhea, sore throat and trouble swallowing. Eyes: Negative for photophobia, pain, discharge and redness. Respiratory: Negative for cough, chest tightness, shortness of breath and wheezing. Cardiovascular: Negative for chest pain, palpitations and leg swelling. Gastrointestinal: Negative for abdominal distention, abdominal pain, blood in stool, constipation, nausea and vomiting. Genitourinary: Negative for dysuria, urgency, polyuria, frequency, hematuria and flank pain. Musculoskeletal: Negative for arthralgias, joint swelling, myalgias and neck stiffness. Skin: Positive for wound. Negative for color change and rash. Neurological: Positive for numbness. Negative for dizziness, seizures, syncope, facial asymmetry, weakness, light-headedness and headaches. Psychiatric/Behavioral: Negative for agitation, confusion, hallucinations and self-injury. The patient is not nervous/anxious. Hematological: Negative for adenopathy and cold intolerance. Does not bruise/bleed easily. Endocrine: Negative for cold intolerance, polydipsia and polyuria. Physical Exam: ED Triage Vitals [04/06/24 0152] Weight 99.8 kg (220 lb) Actual or estimated Estimated by patient/family report Height 1.778 m (5' 10") BP (!) 159/88 Pulse 88 Resp 18 Temp 37.3 ?C (99.1 ?F) Temp source Oral SpO2 98 % Measured on Room air Physical Exam Vitals and nursing note reviewed. Constitutional: General: He is awake. He is not in acute distress. Appearance: He is well-developed and overweight. He is not ill-appearing, toxic-appearing or diaphoretic. Comments: dishevel HENT: Head: Normocephalic and atraumatic. Right Ear: External ear normal. Left Ear: External ear normal. Nose: Nose normal. Mouth/Throat: Pharynx: No oropharyngeal exudate. Eyes: General: No scleral icterus. Right eye: No discharge. Left eye: No discharge. Conjunctiva/sclera: Conjunctivae normal. Pupils: Pupils are equal, round, and reactive to light. Neck: Thyroid: No thyromegaly. Vascular: No JVD. Trachea: No tracheal deviation. Cardiovascular: Rate and Rhythm: Normal rate and regular rhythm. Pulses: Dorsalis pedis pulses are 2+ on the right side and 2+ on the left side. Posterior tibial pulses are 2+ on the right side. Heart sounds: Normal heart sounds. No murmur heard. No friction rub. No gallop. Pulmonary: Effort: Pulmonary effort is normal. No respiratory distress. Breath sounds: Normal breath sounds. No stridor. No wheezing or rales. Chest: Chest wall: No tenderness. Abdominal: General: Bowel sounds are normal. There is no distension. Palpations: Abdomen is soft. There is no mass. Tenderness: There is no abdominal tenderness. There is no guarding or rebound. Musculoskeletal: General: No tenderness or deformity. Normal range of motion. Cervical back: Normal range of motion and neck supple. Right lower le+ Pitting Edema present. Left lower le+ Pitting Edema present. Feet: Feet: Right foot: Skin integrity: Ulcer, skin breakdown, callus and dry skin present. No erythema or warmth. Toenail Condition: Right toenails are abnormally thick. Fungal disease present. Left foot: Skin integrity: Callus and dry skin present. No ulcer, blister, skin breakdown, erythema or warmth. Toenail Condition: Left toenails are abnormally thick. Fungal disease present. Lymphadenopathy: Cervical: No cervical adenopathy. Skin: General: Skin is warm and dry. Coloration: Skin is not pale. Findings: No erythema or rash. Neurological: Mental Status: He is alert and oriented to person, place, and time. Cranial Nerves: No cranial nerve deficit. Motor: No abnormal muscle tone. Coordination: Coordination normal. Deep Tendon Reflexes: Reflexes are normal and symmetric. Reflexes normal. Psychiatric: Behavior: Behavior normal. Thought Content: Thought content normal. Judgment: Judgment normal. Radiology: No orders to display Lab Results: Lab Results POCT GLUCOSE (AUTOMATED) - Abnormal Result Value Ref Range POCT GLU 495 (*) 70 - 110 mg/dL CBC WITH DIFF - Abnormal WBC 11.97 (*) 4.20 - 10.70 10*3/?L RBC 3.82 (*) 4.26 - 5.52 10*6/?L HGB 11.7 (*) 12.2 - 16.4 g/dL HCT 33.8 (*) 38.4 - 49.3 % MCV 88.5 81.7 - 95.6 fL MCH 30.6 26.1 - 32.7 pg MCHC 34.6 31.2 - 35.0 g/dL RDW-SD 39.8 38.5 - 51.6 fL RDW-CV 12.2 12.1 - 15.4 % PLT 251 150 - 328 10*3/?L MPV 10.5 9.8 - 13.0 fL NRBC/100 WBC 0.0 0.0 - 10.0 /100 WBCs NRBC x10 3 <0.01 10*3/?L GRAN MAT (NEUT) % 76.0 % IMM GRAN % 0.90 % LYMPH % 11.5 % MONO % 10.5 % EOS % 0.8 % BASO % 0.3 % GRAN MAT x10 3 (ANC) 9.08 (*) 1.99 - 6.95 10*3/uL IMM GRAN x10 3 0.11 (*) 0.00 - 0.06 10*3/uL LYMPH x10 3 1.38 1.09 - 3.23 10*3/uL MONO x10 3 1.26 (*) 0.36 - 1.02 10*3/uL EOS x10 3 0.10 0.06 - 0.53 10*3/uL BASO x10 3 0.04 0.01 - 0.09 10*3/uL COMP. METABOLIC PANEL (23488) - Abnormal NA 126 (*) 135 - 145 mmol/L K 4.4 3.5 - 5.0 mmol/L CL 93 (*) 98 - 108 mmol/L CO2 TOTAL 27 23 - 31 mmol/L AGAP 6 2 - 16 BUN 21 7 - 23 mg/dL GLUCOSE 518 (*) 70 - 110 mg/dL CREATININE 1.08 0.60 - 1.25 mg/dL TOTAL BILI 0.7 0.1 - 1.1 mg/dL CALCIUM 8.1 (*) 8.6 - 10.6 mg/dL T PROTEIN 6.6 6.3 - 8.2 g/dL ALBUMIN 3.5 3.5 - 5.0 g/dL ALK PHOS 160 (*) 34 - 122 U/L ALTv 15 5 - 50 U/L AST(SGOT) 33 13 - 40 U/L eGFR 73.8 mL/min/1.73m2 MAGNESIUM - Abnormal MAGNESIUM 1.6 (*) 1.7 - 2.4 mg/dL URINALYSIS - Abnormal APPEARANCE Clear Clear COLOR Straw (*) Yellow PH 5.0 4.8 - 8.0 SP GRAVITY 1.026 1.003 - 1.030 GLU U QUAL 500 mg/dL (*) Normal BLOOD Negative Negative KETONES 5 mg/dL (*) Negative PROTEIN Negative Negative UROBILIN Normal Normal BILIRUBIN Negative Negative NITRITE Negative Negative LEUK THEODORE Negative Negative RBC/HPF <1 0 - 3 HPF WBC/HPF 0 0 - 5 HPF BACTERIA Negative Negative MUCOUS Slight (*) Negative LPF SQ EPITH <1 HPF POCT GLUCOSE (AUTOMATED) - Abnormal POCT GLU 476 (*) 70 - 110 mg/dL POCT GLUCOSE (AUTOMATED) - Abnormal POCT GLU 446 (*) 70 - 110 mg/dL POCT GLUCOSE (AUTOMATED) - Abnormal POCT GLU 299 (*) 70 - 110 mg/dL EKG: If EKG completed, see Procedure Note. Orders and Treatments: Orders Placed This Encounter Procedures POCT GLUCOSE (AUTOMATED) Cbc with Diff Comp. Metabolic Panel (80924) Magnesium Urinalysis POCT GLUCOSE (AUTOMATED) POCT GLUCOSE (AUTOMATED) POCT GLUCOSE (AUTOMATED) Orders Placed This Encounter Medications gabapentin (NEURONTIN) capsule 300 mg furosemide (LASIX) injection 40 mg DISCONTD: ceFAZolin (ANCEF) injection 1,000 mg ceFAZolin (ANCEF) 1,000 mg in NaCl 0.9% (NS) 100 mL MINI-BAG insulin regular human (HUMULIN R) injection 10 Units magnesium sulfate in water 2 gram/50 mL (4 %) infusion 2 g thiamine (VITAMIN B1) injection 100 mg ergocalciferol (vitamin d2) (CALCIFEROL) capsule 50,000 Units DISCONTD: insulin regular human (HUMULIN R) injection 10 Units insulin regular human (HUMULIN R) injection 5 Units gabapentin (NEURONTIN) 100 mg capsule furosemide 20 mg tablet cephALEXin 500 mg capsule mupirocin 2 % ointment First Provider Eval: ED Events Date/Time Event User Comments 04/06/24140 Medical Screening Begins MULUGETA PALMA MD -- 04/06/24140 First Provider Evaluation MULUGETA PALMA MD -- ED COURSE Patient's condition improved with the treatment provided in the ED, will DC Home with instructions to follow up at the [facility] within 3 days for wound check. 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 Details: From previous visits reviewed and compared with current data Labs: ordered. Decision-making details documented in ED Course. Risk OTC drugs. Prescription drug management. Diagnosis or treatment significantly limited by social determinants of health. Flowsheet Documentation: Scoring Tools: No data recorded Disposition/Condition: ED Disposition ED Disposition Disch - Home Condition Stable Comment -- Discharge Medications: Patient's Medications START taking these medications CEPHALEXIN 500 MG CAPSULE Take 1 capsule by mouth 4 (four) times daily. FUROSEMIDE 20 MG TABLET Take 1 tablet by mouth every morning. GABAPENTIN (NEURONTIN) 100 MG CAPSULE Take 1 capsule by mouth in the morning and 1 capsule at noon and 1 capsule in the evening. MUPIROCIN 2 % OINTMENT Apply to area(s) 3 (three) times daily. CONTINUE taking these medications which have NOT CHANGED ALCOHOL SWABS (BD SINGLE USE SWABS REGULAR) PADM Apply to area(s) daily. Monitor Blood Glucose daily ASPIRIN 81 MG EC TABLET Take 1 tablet by mouth daily. BLOOD SUGAR DIAGNOSTIC (TRUE METRIX GLUCOSE TEST STRIP) STRIP Monitor Blood Glucose daily DICYCLOMINE 20 MG TABLET Take 1 tablet by mouth 4 (four) times daily as needed for Abdominal pain. DOXYCYCLINE HYCLATE 100 MG CAPSULE Take 1 capsule by mouth in the morning and 1 capsule in the evening. FUROSEMIDE 20 MG TABLET Take 1 tablet by mouth daily. INSULIN NEEDLES, DISPOSABLE, (PHUC PEN NEEDLE) 32 GAUGE X 5/32" NDLE Use as directed INSULIN NPH (HUMULIN N NPH U-100 INSULIN) 100 UNIT/ML INJECTION INJECT 35 UNITS SUBCUTANEOUSLY EVERY MORNING AND EVENING. Office visit needed for further refills. INSULIN SYRINGE-NEEDLE U-100 1 ML 27 GAUGE X 1/2" SYRG Use as directed LANCETS (TRUEPLUS LANCETS) 33 GAUGE [facility] Monitor Blood Glucose daily LISINOPRIL-HYDROCHLOROTHIAZIDE 10-12.5 MG PER TABLET Take 1 tablet by mouth once daily METFORMIN 1,000 MG TABLET Take 1 tablet by mouth 2 (two) times daily with meals. MISCELLANEOUS MEDICAL SUPPLY [facility] E11.8: dispense Insulin Syringe 31 gauge brand covered by insurance. Monitor Blood Sugar at Home BID OFLOXACIN (OCUFLOX) 0.3 % OPHTHALMIC SOLUTION Place 1 Drop in right eye 3 (three) times daily. PEG-ELECTROLYTE SOLN 236-22.74-6.74 -5.86 GRAM SOLUTION Take as directed POTASSIUM CHLORIDE 10 MEQ CR TABLET Take 1 tablet by mouth every Thursday, and Thursday in the evening. PREDNISOLONE ACETATE 1 % OPHTHALMIC SUSPENSION DROPS Place 1 Drop in right eye 4 (four) times daily. SILDENAFIL 50 MG TABLET Take 1 tablet by mouth as needed (Erectile dysfunction). Take 50mg x 1, about 30 mins - 4 hours prior to sexual activity. SIMVASTATIN 40 MG TABLET Take 1 tablet by mouth at bedtime. TIZANIDINE 4 MG TABLET Take 1 tablet by mouth every 6 (six) hours as needed for Pain (scale 7-10). START taking Modified Medications as Prescribed No medications on file STOP taking these medications No medications on file Follow-up: Electronically signed by: Mulugeta Palma MD 04/06/24 0351 [facility] 2024-04-03 17:51:06 Pt given printed and verbal discharge instructions regarding [...] noted upon discharge. PIV discontinued with catheter intact. Pt is AAOx4. Discharge VS are stable. RR E/U. Skin WDL. Pt leaving in wheelchair by ED staff to go home via taxi voucher. NAD noted upon discharge and exit from ED. [facility] 2024-04-03 17:21:48 Images from the original note were not included. ER Weekend Time Motion Analyst note: 04/03/2024 5:21 PM Met with the patient in room. Patient Aox4. [place] [address]. The patient was provided with cab voucher # [id number] Contacted [employer] [phone] Richard Maurer PhD, COLUMNIST/COMMENTATOR, LCDC Care Management- Social Work Department of Care Management The [address] [address] O [phone] E [email or web address]-04-03 16:49:23 Dc after fluids T [facility] 2024-04-03 16:45:00 PT much more awake and alert. Pt provided with taxi voucher, food tray given. [facility] 2024-04-03 15:18:54 Orthostatics 3:19 PM Lying: BP: 158/88 P: 87 Sitting: BP: 130/77 P: 86 Standing: BP: 126/71 P: 82 [facility] 2024-04-03 14:51:50 Images from the original note were not included. ER Weekend Time Motion Analyst note: 04/03/2024 2:51 PM RENEE met with the patient at the bedside. Initially, the patient was drowsy and unable to answer most questions. However, he expressed readiness to move to a personal fpc and was willing to pay for it. RENEE contacted Ms. Weiss from [facility] ( ) and Madhavi Abraham ( ), who explained the financial requirements for staying at their personal care homes. They said he needed to pay a bit upfront and use some of his social security for the home. RENEE also spoke with Royer from [facility] and faxed clinicals for a pending Medicaid bed. Later, RENEE talked to Pan from [facility] about the referral made on 03/22/2024. Pan mentioned that they removed him from their admission list due to his failure to answer their call. She visited the patient and said they can't initiate preauthorization until they receive PT/OT evaluation and confirmation regarding his placement. RENEE discussed these options with the patient again when he was more awake. However, the patient disagreed with the plan for a personal fpc, stating he receives around $900 in social security benefits (contradicting his earlier statement of $1200 to $1400) and did not want to pay for his stay. He expressed a preference for going to a chcf. RENEE contacted [place], Railroad Passenger Agent of the [facility], to secure a bed and discussed this with the patient. The patient agreed to go to the [facility] chcf. RENEE informed him about a meeting with [facility] social media content specialist Destiny Prajapati Thursday morning. The patient expressed unawareness of the meeting, so RENEE requested him to answer the phone when [facility] RENEE calls. RENEE also emailed [facility] social media content specialist Destiny Prajapati regarding the situation, seeking her assistance. Richard Maurer PhD, COLUMNIST/COMMENTATOR, DC Care Management- Social Work Department of Care Management The [address] , [place] [id number] O [phone] E [email or web address] 2024-04-03 09:48:46 Pt to ED c/o falls that have been [...] in lowest position. Call light within reach. [facility] 2024-04-03 09:40:55 Raj Morales is a 69 year old male presents to ED triage with chief compliant of falls. EMS states that he has had multiple falls today, patient has a small abrasions to L forehead.- blood thinners. AAOx4. Skin warm and dry. VSS. RR E/U. NAD noted. Roomed for eval Parvin José RN [facility] 2024-04-03 09:39:00 Associated Order(s): EKG-12 Lead ROUTINE ONCE Pre-Procedure Diagnose(s): Fall, initial encounter; Injury of head, initial encounter Post-Procedure Diagnose(s): Fall, initial encounter; Injury of head, initial encounter Images from the original note were not included. [facility] Emergency Department Note Patient Name: Raj Morales Date of : 1955 69 year old male Treatment Room: [address] [place] [address] Primary Care Physician: PATIENT DOES NOT HAVE A PCP Patient Escorted by: Self [9] Mode of Arrival: EMS - GEMS [30] EMS Treatment Prior to ED Arrival: Travel and Exposure Screening: Symptoms Does patient have any of these symptoms?: (not recorded) Exposure Screening Has patient had contact with someone with a communicable disease in the last month?: (not recorded) Diseases exposed to:: (not recorded) Is Patient ?: (not recorded) Exposure Date: (not recorded) Chief Complaint: Chief Complaint Patient presents with Fall History of Present Illness: 69 male with history of diabetes, hypertension, [...] sleepy but is easily aroused and subsequently awake History provided by: Patient and medical records enterprise engineer used: No 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) 10/12/2019 Cataract OS ONLY Cellulitis of foot, left 04/12/2020 Diabetes Diabetic eye exam 12/01/2019 Added automatically from request for surgery [id number] Dyslipidemia Edema of both legs 02/28/2020 Erectile dysfunction, unspecified erectile dysfunction type 02/28/2020 Essential hypertension 02/28/2020 HTN (hypertension) Hyperlipidemia Obesity (BMI 30-39.9) 03/17/2019 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 Alcohol Use No. Drug Use No. Past Surgical History: Past Surgical History: Procedure Laterality Date COLONOSCOPY N/A 12/30/2019 Surgeon: Glo Finn MD; [place] [facility] [place] CORNEAL TRANSPLANT,LAMELLAR Bilateral KNEE ARTHROSCOPY 1998 OTHER PENETRATING KERATOPLASTY PHACOEMULSIFICATION OF CATARACT WITH INTRAOCULAR LENS IMPLANT Right 03/17/2019 Surgeon: Virgil Martinez MD; Location: [facility] [place] Review of Systems: Review of Systems Constitutional: Positive for fatigue. Negative for fever. HENT: Negative. Eyes: Negative. Respiratory: Negative. Cardiovascular: Negative. Gastrointestinal: Negative. Genitourinary: Negative. Musculoskeletal: Positive for myalgias. Negative for neck pain. Skin: Positive for color change. Neurological: Positive for weakness. Psychiatric/Behavioral: Negative for confusion. All other systems reviewed and are negative. Physical Exam: ED Triage Vitals [04/03/24 0941] Weight Actual or estimated Height BP (!) 174/84 Pulse 92 Resp 18 Temp 36.5 ?C (97.7 ?F) Temp src SpO2 98 % Measured on Room air Physical Exam Vitals and nursing note reviewed. Constitutional: General: He is not in acute distress. Appearance: He is not ill-appearing. Comments: Well-appearing, no acute distress, sleepy but easily aroused to voice and subsequently alert and follows commands, oriented x 3 HENT: Head: Comments: Patient with a 2 x 3 cm area of abrasion on his left forehead, no bony tenderness, no signs of infection Nose: Nose normal. Mouth/Throat: Mouth: Mucous membranes are dry. Pharynx: Oropharynx is clear. Comments: Mildly dry mucous membranes Eyes: General: No scleral icterus. Extraocular Movements: Extraocular movements intact. Pupils: Pupils are equal, round, and reactive to light. Comments: CN II to XII intact, pupils 2 mm and sluggish Neck: Comments: No midline cervical dorsal lumbar spine tenderness to palpation Cardiovascular: Rate and Rhythm: Normal rate and regular rhythm. Heart sounds: Normal heart sounds. Pulmonary: Breath sounds: Normal breath sounds. Abdominal: Palpations: Abdomen is soft. Tenderness: There is no abdominal tenderness. There is no right CVA tenderness or left CVA tenderness. Musculoskeletal: General: Swelling and tenderness present. Normal range of motion. Cervical back: Normal range of motion. No rigidity or tenderness. Right lower leg: No edema. Left lower leg: Edema present. Comments: Nonpitting edema to the bilateral hands and [...] palpation and warm to touch likely secondary cellulitis Skin: Capillary Refill: Capillary refill takes less than 2 seconds. Findings: Erythema present. Neurological: General: No focal deficit present. Mental Status: He is alert and oriented to person, place, and time. Psychiatric: Thought Content: Thought content normal. Radiology: No orders to display Lab Results: Lab Results - No data to display EKG: If EKG completed, see Procedure Note. Orders and Treatments: No orders of the defined types were placed in this encounter. No orders of the defined types were placed in this encounter. First Provider Eval: ED Events Date/Time Event User Comments 04/03/24 0948 Medical Screening Begins NANDO HAGAN MD -- 04/03/24947 First Provider Evaluation NANDO HAGAN MD -- ED COURSE ED Course as of 04/03/24 1633 Sun April 03, 2024 1609 Patient requested a paper prescription for the antibiotics [CD] 1549 Patient did not have any symptoms during orthostatics but his blood pressure did decrease a bit, patient had only received 500 mL of fluid originally, will give another 500 mL [CD] 1443 Patient is more alert, I offered him something to eat and he excepted, patient spoke with case management and declined inpatient nursing facility but is agreeable to go to the [facility]. Will reassess shortly [CD] 1433 AMMONIA(!): <9 No metabolic encephalopathy [CD] 1412 Acute Care Arterial Blood Gas. wnl [CD] 1411 URINE DRUG (IMMUNOASSAY) - COMPREHENSIVE DRUG SCREEN W/O REFLEX neg [CD] 1338 Patient's mental status has not improved in 4 hours in the ER, has a negative head CT, negative alcohol level, the urine tox is pending, will add an ABG and an ammonia level to try to fly because of the patient's lethargy and somnolence [CD] 1338 URINALYSIS(!) No UTI [CD] 1337 Patient reassessed, patient is still somnolent but arouses to voice and then subsequently to follow commands. The nurse from [facility] rehab was trying to assess the patient, she stated she was unable to have him give information to the questions she was asking him, he became fixated that he needed to urinate, she went to get a nurse to get him a urinal and the patient proceeded to urinate all over the floor [CD] 1224 IMPRESSION Impression: Unremarkable foot. [CD] 1224 No radiologically significant acute abnormality of the chest. [CD] 1218 GALV ONLY - INFLUENZA A B RSV PCR Negative [CD] 1158 NA(!): 132 IVF NS given [CD] 1157 ALCOHOL: <10 [CD] 1157 TROPONIN I: 0.006 Acs less likely [CD] 1157 CK: 35 No rhabdo [CD] 1157 MAGNESIUM(!): 1.6 Replaced with IV mag 2grams [CD] 1157 GLUCOSE(!): 353 Elevated but normal AG and CO2, DKA less likely [CD] 1136 HGB: 12.5 Similar to previous [CD] 1135 WBC x10 3 (!): 11.53 Assessing for infection [CD] 1132 LACTIC ACID WHOLE BLOOD: 1.63 Severe systemic infection less likely [CD] 1129 Right foot x-ray interpreted by myself no fracture or dislocation, no signs of osteomyelitis [CD] 1129 Chest x-ray interpreted by myself no acute cardiopulmonary process [CD] 1056 IMPRESSION 1. No acute intracranial abnormality. 2. No acute fracture or traumatic malalignment of the cervical spine. Preliminary Report Dictated by Resident: Marlen Carmona [CD] 1047 POCT Glu (age>30days)(!): 305 [CD] 0948 69 male with history of diabetes, hypertension, [...] multiple times this week for falls and weakness Differential includes but not limited to cellulitis, dehydration, PAUL, CHF, atypical ACS, less likely intoxication, rhabdomyolysis, COVID, flu, other viral illness, pneumonia Plan is labs, CT scan of the head and neck for the trauma, x-ray, urine swabs monitor and reassessment. Patient understands and agrees with plan [CD] ED Course User Index [CD] Nando Hagan MD Diagnosis/Impression as of 04/03/24 1633 Fall, initial encounter Injury of head, initial encounter Cellulitis and abscess of foot Hypertension, unspecified type Hyperglycemia Dehydration Procedures: EKG-12 Lead ROUTINE ONCE Date/Time: 04/03/2024 12:25 PM Performed by: Nando Hagan MD Authorized by: Nando Hagan MD ECG interpreted by ED Physician in the absence of a storage solutions architect: yes Previous ECG: Previous ECG: Compared to current Similarity: No change Comparison ECG info: 09/20/2019 Interpretation: Interpretation: abnormal Rate: ECG rate: 75 ECG rate assessment: normal Rhythm: Rhythm: sinus rhythm Ectopy: Ectopy: none QRS: QRS axis: Left QRS intervals: Normal QRS conduction: normal ST segments: ST segments: Normal T waves: T waves: normal MDM: Medical Decision Making See ED course for MDM Problems Addressed: Cellulitis and abscess of foot: acute illness or injury Dehydration: acute illness or injury Fall, initial encounter: acute illness or injury Hyperglycemia: acute illness or injury Hypertension, unspecified type: chronic illness or injury Injury of head, initial encounter: acute illness or injury Amount and/or Complexity of Data Reviewed Labs: ordered. Decision-making details documented in ED Course. Radiology: ordered. Decision-making details documented in ED Course. ECG/medicine tests: ordered and independent interpretation performed. Decision-making details documented in ED Course. Details: See procedure note Risk OTC drugs. Prescription drug management. Flowsheet Documentation: Scoring Tools: No data recorded Disposition/Condition: ED Disposition None Discharge Medications: Patient's Medications START taking these medications No medications on file CONTINUE taking these medications which have NOT CHANGED ALCOHOL SWABS (BD SINGLE USE SWABS REGULAR) PADM Apply to area(s) daily. Monitor Blood Glucose daily ASPIRIN 81 MG EC TABLET Take 1 tablet by mouth daily. BLOOD SUGAR DIAGNOSTIC (TRUE METRIX GLUCOSE TEST STRIP) STRIP Monitor Blood Glucose daily DICYCLOMINE 20 MG TABLET Take 1 tablet by mouth 4 (four) times daily as needed for Abdominal pain. FUROSEMIDE 20 MG TABLET Take 1 tablet by mouth daily. INSULIN NEEDLES, DISPOSABLE, (PHUC PEN NEEDLE) 32 GAUGE X 5/32" NDLE Use as directed INSULIN NPH (HUMULIN N NPH U-100 INSULIN) 100 UNIT/ML INJECTION INJECT 35 UNITS SUBCUTANEOUSLY EVERY MORNING AND EVENING. Office visit needed for further refills. INSULIN SYRINGE-NEEDLE U-100 1 ML 27 GAUGE X 1/2" SYRG Use as directed LANCETS (TRUEPLUS LANCETS) 33 GAUGE [facility] Monitor Blood Glucose daily LISINOPRIL-HYDROCHLOROTHIAZIDE 10-12.5 MG PER TABLET Take 1 tablet by mouth once daily METFORMIN 1,000 MG TABLET Take 1 tablet by mouth 2 (two) times daily with meals. MISCELLANEOUS MEDICAL SUPPLY [facility] E11.8: dispense Insulin Syringe 31 gauge brand covered by insurance. Monitor Blood Sugar at Home BID OFLOXACIN (OCUFLOX) 0.3 % OPHTHALMIC SOLUTION Place 1 Drop in right eye 3 (three) times daily. PEG-ELECTROLYTE SOLN 236-22.74-6.74 -5.86 GRAM SOLUTION Take as directed POTASSIUM CHLORIDE 10 MEQ CR TABLET Take 1 tablet by mouth every Thursday, and Thursday in the evening. PREDNISOLONE ACETATE 1 % OPHTHALMIC SUSPENSION DROPS Place 1 Drop in right eye 4 (four) times daily. SILDENAFIL 50 MG TABLET Take 1 tablet by mouth as needed (Erectile dysfunction). Take 50mg x 1, about 30 mins - 4 hours prior to sexual activity. SIMVASTATIN 40 MG TABLET Take 1 tablet by mouth at bedtime. TIZANIDINE 4 MG TABLET Take 1 tablet by mouth every 6 (six) hours as needed for Pain (scale 7-10). START taking Modified Medications as Prescribed No medications on file STOP taking these medications No medications on file Follow-up: Electronically signed by: Nando Hagan MD 04/03/24 1651 [facility] 2024-03-31 19:41:41 Pt discharged to home. Discharge instructions given to pt regarding management of condition and instructions to follow up with PCP. Pt verbalized understanding. PIV removed without complications. Patient in possession of all belongings. Pt ambulates to lobby with steady gait. Kunal Joiner RN [facility] 2024-03-31 19:37:16 DISCHARGE HOLD: Pt requesting compression stockings. Materials management contacted. [facility] 2024-03-31 12:35:04 Raj Morales is a 69 year old male presenting to ED with c/o fall. Patient reports using walker and reports stepped off a curb and fell. Patient reports hitting head on ground but denies LOC. No use of blood thinners. BGL "HI" for EMS. Patient received 400cc NS CONTRACTING SUPPORT SPECIALIST. BGL 526. Patient to green chairs due to ED saturation Shavon Linares RN [facility] 2024-03-29 18:51:55 Raj Morales verbalized an understanding of DC instructions. NAD. Respirations unlabored. Pt wheeled out to the ER lobby. Pt given cleaning wipes and reports he needs to get dressed prior to going to ER lobby. RENEE Gusman spoke with patient regarding transport. Porsha Encarnacion RN [facility] 2024-03-29 18:44:41 Images from the original note were not included. ED LBSW Case Note 03/29/2024 6:44 PM This LBSW was consulted by FANI Johnson regarding pt's need for housing. This LBSW attempted to assist pt last time he was here on 03/22/2024. Please see this LBSW's note and how this LBSW assisted him. This LBSW met with pt at bed side to give pt the number to Libby ([facility]). Ms. Souza arranged housing for pt within his budget but pt never got back to her. This LBSW encouraged him to give her a call to arrange the housing she set up for him. HAIDER Sam Time Motion Analyst [facility] - Care Management RENEE Office [email or web address] Naseem MALONEY [facility] 2024-03-29 14:46:31 Raj Morales is a 69 year old male presenting to ED via GEMS with c/o back pain. Patient reports mechanical fall earlier today with no LOC. No use of blood thinners. Patient to green chairs due to ED saturation Shavon Linares RN [facility] 2024-03-22 16:51:23 Naseem gallo/ social work is working on getting pt a ride. DC hold until completed. Mina Ordaz RN [facility] 2024-03-22 13:07:59 Social work at bedside. [facility] 2024-03-22 13:07:00 Images from the original note were not included. ED [facility] Case Note 03/22/2024 5:13 PM Transportation arranged via [employer] . Patient name: Raj Morales Discharge date: 03/22/2024 Reason for voucher: Pt doesn't have a means of transportation Voucher #: [id number] RENEE met with pt face to face Pt is [place] [address] [place] [address] In the future pt is made aware that they will need to find a ride home, unless they are non-ambulatory. Pt was made aware that the [facility] bus transportation picks up right in front of the hospital and that they can ride for free with the hospital wristband 03/12/2024 4:20 PM This LBSW met with pt at bed side to discuss the referrals sent, provide the resources that he gathered for pt. SIXTO Enriquez, MD Tommie and MD [facility]by notified of what was done from LBSW/CM stand point 03/22/2024 4:05 PM This LBSW faxed and emailed referral to [facility] - [facility] to assist pt with finding housing. 03/22/2024 3:53 PM This LBSW gathered the following resources for pt; [facility] Resources Packet [employer] Non-Emergency Medical Transport Form [facility] Information/Registration Packet [facility] services available/schedule form [employer] GoodRx Card 03/22/2024 3:33 PM This LBSW contacted Fox from [facility] to send a referral to her to possibly assist pt with finding a home within his budget 03/22/2024 3:00 PM This LBSW gathered shirts, socks, a pair of shoes, underwear, shorts/pants, hygiene products, snacks for pt. LBSW also collected a walker from the supply closet to potentially replace the walker the pt has now. 03/22/2024 2:07 PM This LBSW sent referral to [facility] ([address] [address] ) to work him up for possibly inpt. Rehab 03/22/2024 1:07 PM This LBSW was consulted by SIXTO Enriquez regarding pt's need for housing and a new walker. This LBSW met with pt at bed side pt shared the following: - Pt has uncontrolled diabetes that hinders him from walking w/o assistance. - Pt has a daughter that lives in [place] that he is estranged from. 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 - Pt is currently homeless - Pt has [employer] as health insurance - Pt gets between $1300-$1400 a month from social security - Pt stays in front of [employer] [place] - Pt has an active phone and knows how to use it: - Pt is wanting to get back to work but can't because he can't walk w/o assistance due to his unsteadiness and pain in his legs. - Pt doesn't have a PCP - Pt is interested in some sort of rehab to assist with his gait and steadiness of walking HAIDER Sam Time Motion Analyst [facility] - Care Management Office [email or web address] Naseem MALONEY [facility] 2024-03-22 13:04:31 Pt requested help from social work for an upgraded walker and questions about housing options other than the [facility]. Social work was called. Will relay the message to pt. [facility] 2024-03-22 11:08:13 Pt to XR [facility] 2024-03-22 09:54:54 Raj Morales is a 69 year old male who presents to the ED with chief complaints of Left foot and leg swelling. Foot is warm to the touch. Pt rates pain as a 10/10. AAOx4. VSS. RR E/U. Skin warm and dry. NAD noted. Roomed for eval. Parvin José RN [facility] 2024-03-12 00:01:12 Patient received discharge instructions and voiced understanding, documentation acknowledged and signed. Pt education provided on prescription use and signs of worsening symptoms. Pt alert and oriented x4, RR equal and unlabored, no sign of acute distress on discharge, patient wheeled to the lobby. Denied any remaining belongings at time of Ed departure, suggested to follow up with pcp. Pt provided with resources for [facility] Dixon Becerril RN [facility] 2024-03-11 23:49:16 Dr. Green informed of pt repeat BGL and pt cleared for discharge Rachana Pettit RN [facility] 2024-03-11 23:48:43 SW bedside T [facility] 2024-03-11 23:42:25 BGL 213 after completion of 2nd liter of NaCl and 2 hours post 10u IVP insulin [facility] 2024-03-11 22:46:08 BGL: 258. This is after the first 1L NaCL and 1 hour post 10u IVP insulin T [facility] 2024-03-11 21:37:43 Dr. Millard confirmed to give 10u insulin IVP now T [facility] 2024-03-11 21:30:15 BGL 579. Provider contacted to verify IVP insulin order T [facility] 2024-03-11 21:19:00 Pt returned from imaging NAD noted T [facility] 2024-03-11 20:28:55 Pt ao4 presents via EMS c/o progressive bilateral leg weakness. Pt reports he was suppose to be staying at [facility] but uncomfortable w sleeping conditions at [facility]. EMS glucometer read HI (monitor max at [...] to assess and tx per plan of care. EMS: 20g right arm ventral, approx 200ml NaCL given Dr. Millard bedside T [facility] 2024-03-11 20:16:12 Raj Morales is a 69 year old male presents to ED c/o bilateral leg weakness. Patient reports going on for 2-3 months, worsening tonight and unable to walk up steps to [facility]. Patient Aox4, NAD noted, VSS, RR e/u. CONTRACTING SUPPORT SPECIALIST 20g R wrist, BGL HI for EMS. EKG in triage. Patient to room for further evaluation. T Lacey Bentley RN [facility] 2024-03-11 20:15:00 [facility] Emergency Department Note Patient Name: Raj Morales Date of : 1955 69 year old male Treatment Room: 121/121 Primary Care Physician: Rakesh Hazel Patient Escorted by: Self [9] Mode of Arrival: EMS - GEMS [30] EMS Treatment Prior to ED Arrival: CONTRACTING SUPPORT SPECIALIST treatment: [place]ine lock;IVF Travel and Exposure Screening: Symptoms Does patient have any of these symptoms?: (not recorded) Exposure Screening Has patient had contact with someone with a communicable disease in the last month?: (not recorded) Diseases exposed to:: (not recorded) Is Patient ?: (not recorded) Exposure Date: (not recorded) Chief Complaint: Chief Complaint Patient presents with Weakness History of Present Illness: Patient presenting to ED with c/o worsening generalized weakness x past couple of months and worst today. According to patient he was having a hard time walking up the steps of the [employer] due to bilateral leg weakness. Patient states this has been going on for a couple of months but it was worst today. 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) 10/12/2019 Cataract OS ONLY Cellulitis of foot, left 04/12/2020 Diabetes Diabetic eye exam 12/01/2019 Added automatically from request for surgery [id number] Dyslipidemia Edema of both legs 02/28/2020 Erectile dysfunction, unspecified erectile dysfunction type 02/28/2020 Essential hypertension 02/28/2020 HTN (hypertension) Hyperlipidemia Obesity (BMI 30-39.9) 03/17/2019 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 Alcohol Use No. Drug Use No. Past Surgical History: Past Surgical History: Procedure Laterality Date COLONOSCOPY N/A 12/30/2019 Surgeon: Glo Finn MD; Location: [facility] OR [facility] CORNEAL TRANSPLANT,LAMELLAR Bilateral KNEE ARTHROSCOPY 1998 OTHER PENETRATING KERATOPLASTY PHACOEMULSIFICATION OF CATARACT WITH INTRAOCULAR LENS IMPLANT Right 03/17/2019 Surgeon: Virgil Martinez MD; Location: [facility] Review of Systems: Review of Systems Constitutional: Positive for fatigue. Negative for chills and fever. HENT: Negative for congestion. Eyes: Negative for visual disturbance. Respiratory: Negative for shortness of breath. Cardiovascular: Negative for chest pain. Gastrointestinal: Negative for abdominal pain, nausea and vomiting. Genitourinary: Negative for dysuria. Musculoskeletal: Negative for back pain. Neurological: Negative for headaches. Physical Exam: ED Triage Vitals [03/11/24 2017] Weight 99.8 kg (220 lb) Actual or estimated Height 1.778 m (5' 10") BP 107/71 Pulse 92 Resp 18 Temp 37.3 ?C (99.2 ?F) Temp source Oral SpO2 99 % Measured on Room air Physical Exam Vitals and nursing note reviewed. Constitutional: General: He is not in acute distress. Appearance: Normal appearance. He is normal weight. He is not ill-appearing, toxic-appearing or diaphoretic. HENT: Head: Normocephalic and atraumatic. Right Ear: External ear normal. Left Ear: External ear normal. Nose: Nose normal. No congestion. Mouth/Throat: Mouth: Mucous membranes are moist. Pharynx: Oropharynx is clear. Eyes: Extraocular Movements: Extraocular movements intact. Conjunctiva/sclera: Conjunctivae normal. Cardiovascular: Rate and Rhythm: Normal rate and regular rhythm. Heart sounds: Normal heart sounds. No murmur heard. Pulmonary: Effort: Pulmonary effort is normal. No respiratory distress. Breath sounds: Normal breath sounds. No wheezing or rales. Abdominal: General: Abdomen is flat. Bowel sounds are normal. There is no distension. Palpations: Abdomen is soft. Tenderness: There is no abdominal tenderness. There is no guarding. Musculoskeletal: General: Normal range of motion. Cervical back: Normal range of motion and neck supple. Right lower leg: Edema present. Left lower leg: Edema present. Skin: General: Skin is warm. Neurological: General: No focal deficit present. Mental Status: He is alert and oriented to person, place, and time. Mental status is at baseline. Cranial Nerves: No cranial nerve deficit. Motor: No weakness. Gait: Gait normal. Psychiatric: Mood and Affect: Mood normal. Behavior: Behavior normal. Thought Content: Thought content normal. Radiology: XR LUMBAR SPINE 2 VW Preliminary Result EXAM: XR LUMBAR SPINE 2 VW HISTORY: 69 years-old Male; Provided indication: bilateral leg weakness . TECHNIQUE: Anterior and lateral views of the lumbar spine were obtained. COMPARISON: None. FINDINGS: No acute fracture or traumatic dislocation is visualized. Normal lumbar lordosis is preserved. The vertebral bodies are normal in height and in normal alignment. The intervertebral disc spaces are preserved. IMPRESSION No acute osseous abnormality. Preliminary Report Dictated by Resident: Stephenie Bynum Lab Results: Lab Results CBC WITH DIFF - Abnormal Result Value Ref Range WBC 7.43 4.20 - 10.70 10*3/?L RBC 4.12 (*) 4.26 - 5.52 10*6/?L HGB 12.3 12.2 - 16.4 g/dL HCT 36.0 (*) 38.4 - 49.3 % MCV 87.4 81.7 - 95.6 fL MCH 29.9 26.1 - 32.7 pg MCHC 34.2 31.2 - 35.0 g/dL RDW-SD 41.0 38.5 - 51.6 fL RDW-CV 12.9 12.1 - 15.4 % PLT 231 150 - 328 10*3/?L MPV 10.5 9.8 - 13.0 fL NRBC/100 WBC 0.0 0.0 - 10.0 /100 WBCs NRBC x10 3 <0.01 10*3/?L GRAN MAT (NEUT) % 68.1 % IMM GRAN % 0.80 % LYMPH % 20.3 % MONO % 9.3 % EOS % 1.1 % BASO % 0.4 % GRAN MAT x10 3 (ANC) 5.06 1.99 - 6.95 10*3/uL IMM GRAN x10 3 0.06 0.00 - 0.06 10*3/uL LYMPH x10 3 1.51 1.09 - 3.23 10*3/uL MONO x10 3 0.69 0.36 - 1.02 10*3/uL EOS x10 3 0.08 0.06 - 0.53 10*3/uL BASO x10 3 0.03 0.01 - 0.09 10*3/uL COMP. METABOLIC PANEL (84607) - Abnormal NA 130 (*) 135 - 145 mmol/L K 4.4 3.5 - 5.0 mmol/L CL 98 98 - 108 mmol/L CO2 TOTAL 26 23 - 31 mmol/L AGAP 6 2 - 16 BUN 24 (*) 7 - 23 mg/dL GLUCOSE 614 (*) 70 - 110 mg/dL CREATININE 1.21 0.60 - 1.25 mg/dL TOTAL BILI 0.4 0.1 - 1.1 mg/dL CALCIUM 8.6 8.6 - 10.6 mg/dL T PROTEIN 6.1 (*) 6.3 - 8.2 g/dL ALBUMIN 3.5 3.5 - 5.0 g/dL ALK PHOS 107 34 - 122 U/L ALTv 17 5 - 50 U/L AST(SGOT) 16 13 - 40 U/L eGFR 64.4 mL/min/1.73m2 CREATINE KINASE - Abnormal CK 32 (*) 33 - 194 U/L POCT GLUCOSE (AUTOMATED) - Abnormal POCT GLU 579 (*) 70 - 110 mg/dL POCT GLUCOSE (AUTOMATED) - Abnormal POCT GLU 258 (*) 70 - 110 mg/dL TROPONIN I - Normal TROPONIN I 0.006 <=0.034 ng/mL POCT GLUCOSE(AGE >30DAYS) EKG: Sinus rhythm with PAC's Left axis deviation Rate: 81 EKG changed when compared with previous EKG Orders and Treatments: Orders Placed This Encounter Procedures XR LUMBAR SPINE 2 VW Cbc with Diff Comp. Metabolic Panel (13040) Creatine Kinase Troponin I POCT GLUCOSE (AUTOMATED) POCT GLUCOSE(AGE >30DAYS) POCT GLUCOSE (AUTOMATED) Orders Placed This Encounter Medications NaCl 0.9% (NS) bolus infusion 1,000 mL insulin regular human (HUMULIN R) injection 10 Units NaCl 0.9% (NS) bolus infusion 1,000 mL First Provider Eval: ED Events Date/Time Event User Comments 03/11/242022 Medical Screening Begins DL MILLARD MD -- 03/11/242022 First Provider Evaluation DL MILLARD MD -- ED COURSE Diagnosis/Impression as of 03/11/24 2328 Weakness Hyperglycemia Procedures: Procedures MDM: 69 y/o male with history noted above, presenting [...] home and instructed to follow up with PCP Medical Decision Making Problems Addressed: Hyperglycemia: chronic illness or injury with exacerbation, progression, or side effects of treatment Weakness: chronic illness or injury with exacerbation, progression, or side effects of treatment Amount and/or Complexity of Data Reviewed External Data Reviewed: ECG. Labs: ordered. Decision-making details documented in ED Course. Radiology: ordered. Decision-making details documented in ED Course. ECG/medicine tests: ordered and independent interpretation performed. Decision-making details documented in ED Course. Risk OTC drugs. Prescription drug management. Flowsheet Documentation: Scoring Tools: No data recorded Disposition/Condition: ED Disposition ED Disposition Disch - Home Condition Stable Comment -- Discharge Medications: Patient's Medications START taking these medications No medications on file CONTINUE taking these medications which have NOT CHANGED ALCOHOL SWABS (BD SINGLE USE SWABS REGULAR) PADM Apply to area(s) daily. Monitor Blood Glucose daily ASPIRIN 81 MG EC TABLET Take 1 tablet by mouth daily. BLOOD SUGAR DIAGNOSTIC (TRUE METRIX GLUCOSE TEST STRIP) STRIP Monitor Blood Glucose daily DICYCLOMINE 20 MG TABLET Take 1 tablet by mouth 4 (four) times daily as needed for Abdominal pain. FUROSEMIDE 20 MG TABLET Take 1 tablet by mouth daily. INSULIN NEEDLES, DISPOSABLE, (PHUC PEN NEEDLE) 32 GAUGE X 5/32" NDLE Use as directed INSULIN NPH (HUMULIN N NPH U-100 INSULIN) 100 UNIT/ML INJECTION INJECT 35 UNITS SUBCUTANEOUSLY EVERY MORNING AND EVENING. Office visit needed for further refills. INSULIN SYRINGE-NEEDLE U-100 1 ML 27 GAUGE X 1/2" SYRG Use as directed LANCETS (TRUEPLUS LANCETS) 33 GAUGE [facility] Monitor Blood Glucose daily LISINOPRIL-HYDROCHLOROTHIAZIDE 10-12.5 MG PER TABLET Take 1 tablet by mouth once daily METFORMIN 1,000 MG TABLET Take 1 tablet by mouth 2 (two) times daily with meals. MISCELLANEOUS MEDICAL SUPPLY [facility] E11.8: dispense Insulin Syringe 31 gauge brand covered by insurance. Monitor Blood Sugar at Home BID OFLOXACIN (OCUFLOX) 0.3 % OPHTHALMIC SOLUTION Place 1 Drop in right eye 3 (three) times daily. PEG-ELECTROLYTE SOLN 236-22.74-6.74 -5.86 GRAM SOLUTION Take as directed POTASSIUM CHLORIDE 10 MEQ CR TABLET Take 1 tablet by mouth every Thursday, and Thursday in the evening. PREDNISOLONE ACETATE 1 % OPHTHALMIC SUSPENSION DROPS Place 1 Drop in right eye 4 (four) times daily. SILDENAFIL 50 MG TABLET Take 1 tablet by mouth as needed (Erectile dysfunction). Take 50mg x 1, about 30 mins - 4 hours prior to sexual activity. SIMVASTATIN 40 MG TABLET Take 1 tablet by mouth at bedtime. TIZANIDINE 4 MG TABLET Take 1 tablet by mouth every 6 (six) hours as needed for Pain (scale 7-10). START taking Modified Medications as Prescribed No medications on file STOP taking these medications No medications on file Follow-up: Electronically signed by: Dl Millard MD 03/11/242328 T [facility] 2024-02-10 14:56:30 PT D/C home. GCS15, VS stable. Given D/C paperwork. Pt ambulatory at time of discharge. Pt educated on med usage, follow up care, s/s worsening condition, need for hydration. Pt verbalized understanding. [facility] arrived to transport patient. Pt given a care package upon discharge [facility] 2024-02-10 14:54:31 Pt finishing food tray [facility] 2024-02-10 11:55:54 Pt states he is dizzy when he walks and has pain. Pt reports having these symptoms for months. T Merry Wise RN [facility] 2024-02-09 21:15:50 Pt given printed and verbal discharge instructions regarding bilateral low back pain, encouraged hydration, Pt verbalized understanding of instructions,pt encouraged to follow up with pcp Advised to seek medical attention for new/prolonged/worsening of symptoms, No adverse reaction to meds given in ER noted upon discharge Awake, alert oriented, resp reg unlabored, skin w/d, pt leaving in no apparent distress, Chelsea Jackson RN [facility] 2024-02-09 21:08:09 Pt has been discharged for several hours. He is being loaded into a WC at this time to wait in lobby. He asked nursing to call [facility]. Ms. Gonzalez states that her and her friend are trying to find him a chcf. At this pt being placed in the lobby. [facility] 2024-02-09 14:20:00 Patient c/o lower back pain. Denies injury [facility] 2024-02-09 14:01:15 Patient transported by [place] [facility], patient c/o back pain and needed to be cleaned up. Patient is homeless and incontinent of urine. T Quinn Moyer RN [facility] 2024-02-09 13:59:00 Images from the original note were not included. 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 Alcohol Use No. Drug Use No. Past Surgical History: Past Surgical History: Procedure Laterality Date COLONOSCOPY N/A 12/30/2019 Surgeon: Glo Finn MD; Location: [facility] OR [facility] CORNEAL TRANSPLANT,LAMELLAR Bilateral KNEE ARTHROSCOPY 1998 OTHER PENETRATING KERATOPLASTY PHACOEMULSIFICATION OF CATARACT WITH INTRAOCULAR LENS IMPLANT Right 03/17/2019 Surgeon: Virgil Martinez MD; Location: [facility] OR [facility] Review of Systems: Review of Systems Constitutional: Positive for activity change. Negative for chills and fever. Respiratory: Negative for cough and shortness of breath. Cardiovascular: Negative for chest pain. Gastrointestinal: Negative for abdominal pain, nausea and vomiting. Genitourinary: Positive for bladder incontinence and frequency. Negative for dysuria and urgency. Musculoskeletal: Positive for gait problem. Negative for neck pain and neck stiffness. Skin: Positive for rash. Negative for wound. Neurological: Negative for weakness and numbness. All other systems reviewed and are negative. Physical Exam: ED Triage Vitals [02/09/24 1402] Weight 99.8 kg (220 lb) Actual or estimated Height 1.778 m (5' 10") BP (!) 171/87 Pulse 82 Resp 15 Temp 35.9 ?C (96.7 ?F) Temp source Oral SpO2 98 % Measured on Room air Physical Exam Vitals and nursing note reviewed. Constitutional: General: He is not in acute distress. Appearance: He is well-developed. He is obese. He is not ill-appearing or toxic-appearing. HENT: Head: Normocephalic and atraumatic. Eyes: General: No scleral icterus. Neck: Vascular: No JVD. Cardiovascular: Rate and Rhythm: Normal rate and regular rhythm. Pulmonary: Effort: Pulmonary effort is normal. No respiratory distress. Breath sounds: No wheezing or rhonchi. Abdominal: General: There is no distension. Palpations: Abdomen is soft. Tenderness: There is no abdominal tenderness. There is no guarding or rebound. Musculoskeletal: General: Tenderness present. No deformity. Normal range of motion. Cervical back: Normal range of motion and neck supple. Lumbar back: Tenderness present. No swelling or deformity. Back: Skin: General: Skin is warm and dry. Capillary Refill: Capillary refill takes less than 2 seconds. Findings: No rash. Neurological: Mental Status: He is alert. Mental status is at baseline. Psychiatric: Mood and Affect: Mood normal. Behavior: Behavior normal. Thought Content: Thought content normal. Radiology: CT HEAD WO CONTRAST Final Result FULL RESULT: Examination: CT HEAD WO CONTRAST on 02/09/2024 2:43 PM Clinical Indication: Dizziness Comparison: None Technique: Noncontrast imaging was obtained from base to vertex. Findings: The sulci and ventricles were unremarkable. There was no evidence for mass lesion, hemorrhage, or underlying edema. There is mild white matter hypodensity compatible with microvascular ischemic change. There were no bony, sinonasal or skull base lesions. IMPRESSION No lesions. Lab Results: Lab Results URINALYSIS - Abnormal Result Value Ref Range APPEARANCE Clear Clear COLOR Yellow Yellow PH 5.0 4.8 - 8.0 SP GRAVITY 1.020 1.003 - 1.030 GLU U QUAL 500 mg/dL (*) Normal BLOOD Negative Negative KETONES 20 mg/dL (*) Negative PROTEIN 30 mg/dL (*) Negative UROBILIN Normal Normal BILIRUBIN Negative Negative NITRITE Negative Negative LEUK THEODORE Negative Negative RBC/HPF 0 0 - 3 HPF WBC/HPF <1 0 - 5 HPF BACTERIA Negative Negative MUCOUS Slight (*) Negative LPF EKG: If EKG completed, see Procedure Note. Orders and Treatments: Orders Placed This Encounter Procedures CT HEAD WO CONTRAST Urinalysis Orders Placed This Encounter Medications methocarbamoL (ROBAXIN) tablet 1,000 mg ketorolac (TORADOL) injection 15 mg First Provider Eval: ED Events Date/Time Event User Comments 02/09/24 1400 Medical Screening Begins TARA IRELAND MD -- 02/09/24 1400 First Provider Evaluation TARA IRELAND MD -- ED COURSE Diagnosis/Impression as of 02/09/24 1710 Chronic low back pain with bilateral sciatica, unspecified back pain laterality Ataxia Chronic bilateral low back pain with bilateral sciatica Obesity (BMI 30-39.9) 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 Ua negative for infection. Patient care limited by access to healthcare and homelessness, can't fill any medications that are prescribed. 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): chronic illness or injury Chronic bilateral low back pain with bilateral sciatica: acute illness or injury Chronic low back pain with bilateral sciatica, unspecified back pain laterality: chronic illness or injury with exacerbation, progression, or side effects of treatment Homelessness: chronic illness or injury with severe exacerbation, progression, or side effects of treatment that poses a threat to life or bodily functions Obesity (BMI 30-39.9): chronic illness or injury Type 2 diabetes mellitus with vascular disease: chronic illness or injury Amount and/or Complexity of Data Reviewed Independent Historian: EMS Radiology: ordered. Decision-making details documented in ED Course. Risk Prescription drug management. Flowsheet Documentation: Scoring Tools: No data recorded Disposition/Condition: ED Disposition ED Disposition Disch - Home Condition Stable Comment -- Discharge Medications: Patient's Medications START taking these medications No medications on file CONTINUE taking these medications which have NOT CHANGED ALCOHOL SWABS (BD SINGLE USE SWABS REGULAR) PADM Apply to area(s) daily. Monitor Blood Glucose daily ASPIRIN 81 MG EC TABLET Take 1 tablet by mouth daily. BLOOD SUGAR DIAGNOSTIC (TRUE METRIX GLUCOSE TEST STRIP) STRIP Monitor Blood Glucose daily CYCLOBENZAPRINE 10 MG TABLET Take 1 tablet by mouth in the morning and 1 tablet at noon and 1 tablet in the evening. Do all this for 15 doses. DICYCLOMINE 20 MG TABLET Take 1 tablet by mouth 4 (four) times daily as needed for Abdominal pain. FUROSEMIDE 20 MG TABLET Take 1 tablet by mouth daily. INSULIN NEEDLES, DISPOSABLE, (PHUC PEN NEEDLE) 32 GAUGE X 5/32" NDLE Use as directed INSULIN NPH (HUMULIN N NPH U-100 INSULIN) 100 UNIT/ML INJECTION INJECT 35 UNITS SUBCUTANEOUSLY EVERY MORNING AND EVENING. Office visit needed for further refills. INSULIN SYRINGE-NEEDLE U-100 1 ML 27 GAUGE X 1/2" SYRG Use as directed LANCETS (TRUEPLUS LANCETS) 33 GAUGE [facility] Monitor Blood Glucose daily LISINOPRIL-HYDROCHLOROTHIAZIDE 10-12.5 MG PER TABLET Take 1 tablet by mouth once daily METFORMIN 1,000 MG TABLET Take 1 tablet by mouth 2 (two) times daily with meals. [facility] E11.8: dispense Insulin Syringe 31 gauge brand covered by insurance. Monitor Blood Sugar at Home BID OFLOXACIN (OCUFLOX) 0.3 % OPHTHALMIC SOLUTION Place 1 Drop in right eye 3 (three) times daily. PEG-ELECTROLYTE SOLN 236-22.74-6.74 -5.86 GRAM SOLUTION Take as directed POTASSIUM CHLORIDE 10 MEQ CR TABLET Take 1 tablet by mouth every Thursday, and Thursday in the evening. PREDNISOLONE ACETATE 1 % OPHTHALMIC SUSPENSION DROPS Place 1 Drop in right eye 4 (four) times daily. SILDENAFIL 50 MG TABLET Take 1 tablet by mouth as needed (Erectile dysfunction). Take 50mg x 1, about 30 mins - 4 hours prior to sexual activity. SIMVASTATIN 40 MG TABLET Take 1 tablet by mouth at bedtime. TIZANIDINE 4 MG TABLET Take 1 tablet by mouth every 6 (six) hours as needed for Pain (scale 7-10). START taking Modified Medications as Prescribed No medications on file STOP taking these medications No medications on file Follow-up: Electronically signed by: Tara Ireland MD 02/09/24 1710 [facility] 2024-02-06 11:48:50 Written/verbal d/c instructions, out of er via wheelchair, pt requests [facility] PD to call [place] [facility], states [employer] told him they would give him a ride back to [facility] to get his cart that he uses to walk, states [employer] hid his cart behind the building while [facility] transported to hospital, [facility] PD agreed to call for pt. Zarina Martin RN [facility] 2024-02-06 09:24:07 [facility] states: "Pt is coming in for chronic back pain. He's had it for over a month now. He's homeless. Has a history of stroke. He does have a cut on his finger that he might need an antibiotic for. His bgl was 202. The police said to call him when he gets discharged and he would take him back to outside of [facility] where he is living. The copper etcher also gave him 20 dollars so he should have some money for an antibiotic" Vandana Gallegos RN [facility] 2024-02-06 09:16:00 Images from the original note were not included. [facility] Emergency Department Note Patient Name: Raj Morales Date of : 1955 69 year old male Treatment Room: [facility] FT/[id number] Primary Care Physician: Rakesh Hazel Patient Escorted by: Self [9] Mode of Arrival: EMS - [facility] ([place]) [43] EMS Treatment Prior to ED Arrival: Travel and Exposure Screening: Symptoms Does patient have any of these symptoms?: (not recorded) Exposure Screening Has patient had contact with someone with a communicable disease in the last month?: (not recorded) Diseases exposed to:: (not recorded) Is Patient ?: (not recorded) Exposure Date: (not recorded) Chief Complaint: Chief Complaint Patient presents with Back Pain History of Present Illness: Patient is a 69 y/o M with PMH: Morbid Obesity, CVA w/ Ataxia, HLD, Chronic Lumbar Pain w/ Bilateral Sciatica, HTN, Psoriasis who presents with acute on chronic lumbar pain. He is currently homeless and lives [place] [employer] [facility]. 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) 10/12/2019 Cataract OS ONLY Cellulitis of foot, left 04/12/2020 Diabetes Diabetic eye exam 12/01/2019 Added automatically from request for surgery [id number] Dyslipidemia Edema of both legs 02/28/2020 Erectile dysfunction, unspecified erectile dysfunction type 02/28/2020 Essential hypertension 02/28/2020 HTN (hypertension) Hyperlipidemia Obesity (BMI 30-39.9) 03/17/2019 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 Alcohol Use No. Drug Use No. Past Surgical History: Past Surgical History: Procedure Laterality Date COLONOSCOPY N/A 12/30/2019 Surgeon: Glo Finn MD; Location: [facility] OR [facility] CORNEAL TRANSPLANT,LAMELLAR Bilateral KNEE ARTHROSCOPY 1998 OTHER PENETRATING KERATOPLASTY PHACOEMULSIFICATION OF CATARACT WITH INTRAOCULAR LENS IMPLANT Right 03/17/2019 Surgeon: Virgil Martinez MD; Location: [facility] OR [facility] Review of Systems: Review of Systems Musculoskeletal: Positive for back pain (lumbar pain with bilateral sciatica). Physical Exam: ED Triage Vitals [02/06/24 0926] Weight 99.8 kg (220 lb) Actual or estimated Estimated by patient/family report Height 1.651 m (5' 5") BP (!) 163/77 Pulse 71 Resp 16 Temp 36.6 ?C (97.9 ?F) Temp source Oral SpO2 98 % Measured on Room air Physical Exam Vitals and nursing note reviewed. Constitutional: General: He is awake. Appearance: Normal appearance. He is well-developed and well-groomed. He is obese. HENT: Head: Normocephalic and atraumatic. Jaw: There is normal jaw occlusion. Right Ear: Hearing normal. Left Ear: Hearing normal. Nose: Nose normal. Mouth/Throat: Lips: Liscomb. Mouth: Mucous membranes are dry. Pharynx: Oropharynx is clear. Uvula midline. Eyes: General: Lids are normal. Vision grossly intact. Gaze aligned appropriately. Extraocular Movements: Extraocular movements intact. Conjunctiva/sclera: Conjunctivae normal. Pupils: Pupils are equal, round, and reactive to light. Neck: Trachea: Trachea and phonation normal. Cardiovascular: Rate and Rhythm: Normal rate and regular rhythm. Pulses: Normal pulses. Heart sounds: Normal heart sounds, S1 normal and S2 normal. Pulmonary: Effort: Pulmonary effort is normal. Breath sounds: Normal breath sounds and air entry. Abdominal: General: Abdomen is flat. Bowel sounds are normal. Palpations: Abdomen is soft. Musculoskeletal: General: Normal range of motion. Cervical back: Full passive range of motion without pain, normal range of motion and neck supple. Back: Comments: Lumbar pain with bilateral sciatica Skin: General: Skin is warm and dry. Capillary Refill: Capillary refill takes less than 2 seconds. Neurological: General: No focal deficit present. Mental Status: He is alert and oriented to person, place, and time. Mental status is at baseline. GCS: GCS eye subscore is 4. GCS verbal subscore is 5. GCS motor subscore is 6. Sensory: Sensation is intact. Motor: Motor function is intact. Coordination: Coordination is intact. Gait: Gait is intact. Deep Tendon Reflexes: Reflexes are normal and symmetric. Psychiatric: Attention and Perception: Attention and perception normal. Mood and Affect: Mood and affect normal. Speech: Speech normal. Behavior: Behavior normal. Behavior is cooperative. Thought Content: Thought content normal. Cognition and Memory: Cognition and memory normal. Judgment: Judgment normal. Radiology: XR LUMBAR SPINE 3 VW Final Result EXAM: XR LUMBAR SPINE 3 VW HISTORY: 69 years-old Male; Provided indication: lumbar pain with bilateral sciatica . TECHNIQUE: Anterior and lateral views of the lumbar spine were obtained. COMPARISON: None. FINDINGS: There are 5 non-rib bearing lumbar vertebrae. No acute fracture or traumatic dislocation is visualized. Normal lumbar lordosis is preserved. The vertebral bodies are normal in height and in normal alignment. The intervertebral disc spaces are preserved. IMPRESSION No acute osseous abnormality. Preliminary Report Dictated by Resident: Marie Ball I, Kvng Kraus MD., have reviewed this study and agree with the above report. Lab Results: Lab Results URINALYSIS - Abnormal Result Value Ref Range APPEARANCE Clear Clear COLOR Yellow Yellow PH 5.0 4.8 - 8.0 SP GRAVITY 1.020 1.003 - 1.030 GLU U QUAL 50 mg/dL (*) Normal BLOOD Negative Negative KETONES 20 mg/dL (*) Negative PROTEIN 30 mg/dL (*) Negative UROBILIN Normal Normal BILIRUBIN Negative Negative NITRITE Negative Negative LEUK THEODORE Negative Negative RBC/HPF <1 0 - 3 HPF WBC/HPF 1 0 - 5 HPF BACTERIA Negative Negative MUCOUS Slight (*) Negative LPF EKG: If EKG completed, see Procedure Note. Orders and Treatments: Orders Placed This Encounter Procedures XR LUMBAR SPINE 3 VW URINALYSIS Discharge Follow-up: PCP RAKESH HAZEL; As Needed Orders Placed This Encounter Medications cyclobenzaprine (FLEXERIL) tablet 10 mg cyclobenzaprine 10 mg tablet First Provider Eval: ED Events Date/Time Event User Comments 02/06/24 0926 Medical Screening Begins DESTINY MULLER -- 02/06/24 0926 First Provider Evaluation DESTINY MULLER -- ED COURSE ED Course as of 02/06/24 1137 Sat Feb 06, 2024 1129 MUCOUS(!): Slight [KV] 1129 PROTEIN(!): 30 mg/dL [KV] 1129 KETONES(!): 20 mg/dL [KV] 1129 GLU U QUAL(!): 50 mg/dL [KV] 1050 Cyclobenzaprine helped lumbar symptoms. Awaiting UA results [KV] 1032 Imaging spine 2 view is negative for any new osseous lesions. Awaiting UA results [KV] ED Course User Index [KV] Destiny Muller NP Diagnosis/Impression as of 02/06/24 1137 Chronic bilateral low back pain with sciatica, sciatica laterality unspecified Back muscle spasm Procedures: Procedures MDM: Medical Decision Making DDX: low back pain Spine r/t Acute ligamentous injury Acute muscle strain Disk herniation (Sciatica) Degenerative joint disease Spondylolithesis Epidural compression syndromes Spinal cor compression (non-traumatic) Cauda equina syndrome Conus medullaris syndrome Epidural abscess (spinal) Epidural hematoma (spinal) Thoracic and lumbar fractures and dislocations Cancer metastasis Spinal stenosis Transverse myelitis Vertebral osteomyelitis Ankylosing spondylitis Spondylolithesis Discitis Renal disease Kidney stone Pyelonephritis Nephrolithiasis Intra-abdominal Abdominal aortic aneurysm Ulcer perforation Retrocecal appendicitis Large bowel obstruction Pancreatitis Pelvic disease PID Other Retroperitoneal hemorrhage/mass Meningitis MDM: Patient is a 69 y/o M w/ [...] Home. PD notified of impending DC to Home. Amount and/or Complexity of Data Reviewed Labs: Decision-making details documented in ED Course. Radiology: ordered. Risk Prescription drug management. Flowsheet Documentation: Scoring Tools: No data recorded Disposition/Condition: ED Disposition ED Disposition Disch - Home Condition Stable Comment -- Discharge Medications: Patient's Medications START taking these medications CYCLOBENZAPRINE 10 MG TABLET Take 1 tablet by mouth in the morning and 1 tablet at noon and 1 tablet in the evening. Do all this for 15 doses. CONTINUE taking these medications which have NOT CHANGED ALCOHOL SWABS (BD SINGLE USE SWABS REGULAR) PADM Apply to area(s) daily. Monitor Blood Glucose daily ASPIRIN 81 MG EC TABLET Take 1 tablet by mouth daily. BLOOD SUGAR DIAGNOSTIC (TRUE METRIX GLUCOSE TEST STRIP) STRIP Monitor Blood Glucose daily DICYCLOMINE 20 MG TABLET Take 1 tablet by mouth 4 (four) times daily as needed for Abdominal pain. FUROSEMIDE 20 MG TABLET Take 1 tablet by mouth daily. INSULIN NEEDLES, DISPOSABLE, (PHUC PEN NEEDLE) 32 GAUGE X 5/32" NDLE Use as directed INSULIN NPH (HUMULIN N NPH U-100 INSULIN) 100 UNIT/ML INJECTION INJECT 35 UNITS SUBCUTANEOUSLY EVERY MORNING AND EVENING. Office visit needed for further refills. INSULIN SYRINGE-NEEDLE U-100 1 ML 27 GAUGE X 1/2" SYRG Use as directed LANCETS (TRUEPLUS LANCETS) 33 GAUGE [facility] Monitor Blood Glucose daily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
[2024-08-17] MEDS ORDERED: Ringers Lactate 1,000 ML IV ONE (17:53)
[2024-08-17] MEDS ORDERED: MECLIZINE HCL 12.5 MG TAB ONE (17:53)
[2024-08-17 18:02] LABS: Albumin 3.4 g/dL (3.4-5.0); Albumin/Globulin Ratio 0.9 (1.1-1.8); Anion Gap 8.8 mEq/L (5.0-15.0); Bilirubin Total 0.5 mg/dL (0.2-1.0); Globulin 3.6 g/dL (2.3-3.5); Magnesium 1.6 mg/dL (1.6-2.4); Potassium 4.8 mEq/L (3.5-5.1); Troponin High Sensitivity 16.7 pg/mL (<58.9)
[2024-08-17 18:09] LABS: Absolute Lymphocytes (CBC) 1.4 K/uL (0.7-4.9); Absolute Monocytes 0.7 K/uL (0.1-1.3); Absolute Neutrophil 7.9 K/uL (1.8-8.0); Basophils % 0.4 % (0-1.3); Eosinophils % 0.3 % (0-4.4); Hematocrit 37.8 % (39.6-49.0); Hemoglobin 12.6 g/dL (13.6-17.9); Lymphocytes % 13.8 % (15.3-44.8); MCH 28.8 pg (27.0-35.0); MCHC 33.4 g/dL (32.0-36.0); MCV 86.2 fL (80-100); MPV 7.9 fL (7.6-11.3); Neutrophils % 78.5 % (41.7-73.7); Nucleated Red Blood Cells % 0.1 % (0-0); Platelets 279 thou/uL (152-406); RBC Red Blood Cell Count 4.38 M/uL (4.33-5.43); Red Cell Distribution Width 15.2 % (12.1-15.2)
--- NOTE | 2024-08-17 18:23 | EDPHYS ---
Physician Documentation [facility] Name: Edwin Linton Age: 69 yrs Sex: Male : 1955 Arrival Date: 08/17/2024 Time: 15:50 Bed 14 Private MD: ED Physician Kera Alvarado HPI: 08/17 17:18 This 69 yrs old Male presents to ER via EMS with complaints of Dizziness. sd2 17:18 69 yo M presents via EMS with CC of dizziness. Pt is a poor historian and unable to sd2 explain what the dizziness feels like. States he cannot walk far without feeling like he is going to "fall over." Reports ongoing baseline dizziness since his last stroke quite some time ago in the [place] but that this is worse and different compared to his normal dizziness. Reports it worsens if he leans forward then picks his head up. Denies numbness, tingling, weakness or other symptoms. Reports was in a convalescent hospital recently in [place] and just recently got out but then ran out of his medications and has not been taking them for a week. . Historical: - Allergies: 16:23 No Known Allergies; db - PMHx: 16:23 Cerebrovascular accident; diabetes mellitus; Hypercholesterolemia; Hypertensive db disorder; - Immunization history:: Adult Immunizations unknown. - Infectious Disease History:: Denies. - Social history:: Smoking status: Patient denies any tobacco usage or history of. ROS: 17:18 Constitutional: Negative for fever, chills, and weight loss, Eyes: Negative for injury, sd2 pain, redness, and discharge, Cardiovascular: Negative for chest pain, palpitations, and edema, Respiratory: Negative for shortness of breath, cough, wheezing. Abdomen/GI: Negative for abdominal pain, nausea, vomiting, diarrhea. MS/Extremity: Negative for injury and deformity, Skin: Negative for injury, rash, and discoloration, Neuro: Negative for headache, numbness and tingling. Positive for dizziness. Exam: 17:18 Constitutional: This is a well developed, well nourished patient who is awake, alert, sd2 and in no acute distress. Head/Face: Normocephalic, atraumatic. Eyes: EOMI, normal conjunctiva bilaterally Neck: Trachea midline, no thyromegaly or masses palpated, and no cervical lymphadenopathy. Supple, full range of motion without nuchal rigidity, or vertebral point tenderness. No Meningismus. Chest/axilla: Normal chest wall appearance and motion. Nontender with no deformity. Cardiovascular: Regular rate and rhythm with a normal S1 and S2. No gallops, murmurs, or rubs. 2+ distal pulses. Respiratory: Lungs have equal breath sounds bilaterally, clear to auscultation and percussion. No rales, rhonchi or wheezes noted. No increased work of breathing, no retractions or nasal flaring. Abdomen/GI: Soft, non-tender, with normal bowel sounds. No guarding or rebound. No evidence of tenderness throughout. Skin: Warm, dry with normal turgor. Normal color with no rashes, no lesions, and no evidence of cellulitis. MS/ Extremity: Pulses equal, no cyanosis. Neurovascular intact. Full, normal range of motion. Neuro: Awake and alert, GCS 15, oriented to person, place, time, and situation. Cranial nerves II-XII grossly intact. Motor strength 5/5 in all extremities. Sensory grossly intact. Cerebellar exam normal. Psych: Awake, alert, with orientation to person, place and time. Behavior, mood, and affect are within normal limits. 17:51 ECG was reviewed by the Attending Physician. NSR, rate 69, no STEMI criteria sd2 Vital Signs: 16:18 BP 96 / 58; Pulse 74; Resp 16; Temp 97.6; Pulse Ox 97% ; Weight 86.18 kg; Height 5 ft. db 10 in. ; 18:57 BP 119 / 62; Pulse 74; Resp 16; Pulse Ox 96% on R/A; iw 20:00 BP 121 / 68; Pulse 76; Resp 18; Pulse Ox 98% on R/A; kj2 21:00 BP 118 / 64; Pulse 72; Resp 18; Temp 98; Pulse Ox 100% on R/A; kj2 16:18 Body Mass Index 27.26 (86.18 kg, 177.8 cm) db MDM: 16:47 Patient medically screened. sd2 17:18 Differential diagnosis: CVA, hypovolemia, near-syncope, TIA, vertigo, electrolyte sd2 abnormality among others. Data reviewed: vital signs, nurses notes, lab test result(s), EKG, radiologic studies. I considered the following discharge prescriptions or medication management in the emergency department Medications were administered in the Emergency Department. See MAR. Historians other than the Patient: EMS: provided initial report. Care significantly affected by the following chronic conditions: Diabetes, Hypertension, CVA. 18:20 Counseling: I had a detailed discussion with the patient and/or guardian regarding the sd2 historical points, exam findings, and any diagnostic results supporting the discharge/admit diagnosis, lab results, radiology results, the need for further work-up and treatment in the hospital. ED course: Labs reviewed. PAUL present with GFR 29. [facility] IVFs [facility] given. CT head on my review is negative for acute pathology. Pt advised of need for admission for PAUL at this time. Agreeable to admission. . 08/17 17:18 Order name: CBC with Diff; Complete Time: 18:10 sd2 08/17 17:18 Order name: CMP; Complete Time: 18:10 sd2 08/17 17:18 Order name: Magnesium; Complete Time: 18:10 sd2 08/17 17:18 Order name: Troponin High Sensitivity; Complete Time: 18:10 sd2 08/17 17:18 Order name: BNP; Complete Time: 18:10 sd2 08/17 19:35 Order name: Basic Metabolic Panel EDTX 08/17 19:35 Order name: Basic Metabolic Panel EDTX 08/17 19:35 Order name: CBC with Automated Diff EDTX 08/17 19:35 Order name: CBC with Automated Diff EDTX 08/17 19:35 Order name: Lipid Profile EDTX 08/17 19:35 Order name: Lipid Profile EDTX 08/17 19:35 Order name: Magnesium EDMS 08/17 19:35 Order name: Magnesium EDMS 08/17 19:35 Order name: Phosphorus EDMS 08/17 19:36 Order name: Phosphorus EDMS 08/17 19:36 Order name: Thyroid Stimulating Hormone EDTX 08/17 19:36 Order name: Thyroid Stimulating Hormone EDTX 08/17 17:18 Order name: XRAY Chest (1 view); Complete Time: 19:42 sd2 08/17 17:18 Order name: CT Head Brain wo Cont; Complete Time: 19:42 sd2 08/17 19:35 Order name: Echo with Doppler EDTX 08/17 19:36 Order name: ERT ORTHOSTATIC V/S [facility] 08/17 19:35 Order name: IRF Screen [facility] 08/17 19:35 Order name: Physical Therapy Consult [facility] 08/17 19:35 Order name: Physical Therapy Consult [facility] 08/17 19:35 Order name: Speech Therapy Consult [facility] 08/17 17:18 Order name: EKG - Nurse/Tech; Complete Time: 17:54 sd2 Administered Medications: 17:58 Drug: Lactated Ringers Solution IV 1000 ml IV at 999 ml/hr bolus Route: IV; Rate: 999 iw ml/hr; Site: right antecubital; 19:05 Follow up: IV Status: Completed infusion; IV Intake: 1000ml kj2 17:58 Drug: Meclizine PO 25 mg PO once Route: PO; iw 19:30 Follow up: Response: No adverse reaction kj2 Disposition Summary: 08/17/24 18:22 Hospitalization Ordered Notes: Hospitalization Status: Observation sd2 Provider: Handy Mattson2 Location: Telemetry/MedSurg (observation) sd2 Condition: Stable sd2 Problem: new sd2 Symptoms: are unchanged sd2 Bed/Room Type: Standard sd2 Room Assignment: 229(08/17/24 20:33) kmf Diagnosis - Dizziness and giddiness sd2 - Acute kidney injury sd2 Forms: - Medication Reconciliation Form sd2 - SBAR form sd2 - Leadership Thank You Letter sd2 Signatures: Dispatcher [employer] Rupa Falcon RN RN iw Kera Alvarado MD MD sd2 Ruthann Villafana RN RN db Robert Yost MD MD 2 Lexie Carrera kmf Chery Sosa RN kj2 Corrections: (The following items were deleted from the chart) 19:37 17:18 Orthostatics ordered. sd2 iw 20:33 18:22 sd2 kmf
--- NOTE | 2024-08-17 18:23 | ER ---
Nurse's Notes [facility] Name: Edwin Linton Age: 69 yrs Sex: Male : 1955 Arrival Date: 08/17/2024 Time: 15:50 Bed 14 Private MD: Diagnosis: Dizziness and giddiness;Acute kidney injury Presentation: 08/17 16:18 Chief complaint: Patient states: CAME IN BY EMS TODAY. DID NOT RECEIVE REPORT FROM EMS. db STATES STARTED HAVING DIZZINESS AND CALLED EMS. PICKED UP FROM POST OFFICE. STARTED STARTED THIS AM WHEN HE WOKE UP. USES A WALKER BUT NOT HAS INCREASED DIFFICULTY WALKING. HX OF STROKE. Coronavirus screen: Client denies travel out of the [place] in the last 14 days. At this time, the client does not indicate any symptoms associated with coronavirus-19. Ebola Screen: Patient negative for fever greater than or equal to 101.5 degrees Fahrenheit, and additional compatible Ebola Virus Disease symptoms Patient denies exposure to infectious person. Patient denies travel to an Ebola-affected area in the 21 days before illness onset. No symptoms or risks identified at this time. Initial Sepsis Screen: Does the patient meet any 2 criteria? No. Patient's initial sepsis screen is negative. Does the patient have a suspected source of infection? No. Patient's initial sepsis screen is negative. Risk Assessment: Do you want to hurt yourself or someone else? Patient reports no desire to harm self or others. Onset of symptoms was August 17, 2024. 16:18 Method Of Arrival: EMS db 16:18 Acuity: ROLAND 2 db Triage Assessment: 16:18 General: Appears in no apparent distress. comfortable, Behavior is calm, cooperative. db Pain: Denies pain. Neuro: Level of Consciousness is awake, alert, obeys commands, Oriented to person, place, time, situation, Gait is unsteady, Speech is normal, Reports dizziness. Respiratory: Airway is patent Respiratory effort is even, unlabored, Respiratory pattern is regular, symmetrical. Historical: - Allergies: 16:23 No Known Allergies; db - PMHx: 16:23 Cerebrovascular accident; diabetes mellitus; Hypercholesterolemia; Hypertensive db disorder; - Immunization history:: Adult Immunizations unknown. - Infectious Disease History:: Denies. - Social history:: Smoking status: Patient denies any tobacco usage or history of. Screenin:00 [facility] ED Fall Risk Assessment (Adult) History of falling in the last 3 months, iw including since admission Yes- single mechanical fall (1 pt) Confusion or Disorientation No (0 pts) Intoxicated or Sedated No (0 pts) Impaired Gait Yes (1 pt) Mobility Assist Device Used Yes (1 pt) Altered Elimination No (0 pt) Score/Fall Risk Level 3 or more points = High Risk Oriented to surroundings. Abuse screen: Denies injuries from another. Nutritional screening: No deficits noted. Tuberculosis screening: No symptoms or risk factors identified. Assessment: 16:57 General: Appears in no apparent distress. Behavior is calm, cooperative. Pain: iw Complains of pain in anterior aspect of right shoulder. Neuro: Level of Consciousness is awake, alert, obeys commands, Oriented to person, place, time, situation, Moves all extremities. Full function. Neuro: Reports dizziness, Denies. Cardiovascular: Denies chest pain, Patient's skin is warm and dry. Cardiovascular: Reports Rhythm is regular. Respiratory: Airway is patent Respiratory pattern is regular, symmetrical. Derm: Skin is intact, is healthy with good turgor. Musculoskeletal: Range of motion: intact in all extremities. 18:58 Reassessment: Patient appears in no apparent distress at this time. Patient and/or iw family updated on plan of care and expected duration. Pain level reassessed. Patient is alert, oriented x 3, equal unlabored respirations, skin warm/dry/pink. Dr. Mattson at bedside speaking to pt. 19:00 Pain: Denies pain. Cardiovascular: Patient's skin is warm and dry. Respiratory: Airway kj2 is patent Respiratory effort is even, unlabored. 20:08 Reassessment: Patient appears in no apparent distress at this time. Patient and/or kj2 family updated on plan of care and expected duration. Pain level reassessed. Patient is alert, oriented x 3, equal unlabored respirations, skin warm/dry/pink. 21:32 Reassessment: Patient appears in no apparent distress at this time. Patient and/or kj2 family updated on plan of care and expected duration. Pain level reassessed. Patient is alert, oriented x 3, equal unlabored respirations, skin warm/dry/pink. 21:32 Reassessment: RN attempt to call report to [employer], no answer x 2. kj2 Vital Signs: 16:18 BP 96 / 58; Pulse 74; Resp 16; Temp 97.6; Pulse Ox 97% ; Weight 86.18 kg; Height 5 ft. db 10 in. ; 18:57 BP 119 / 62; Pulse 74; Resp 16; Pulse Ox 96% on R/A; iw 20:00 BP 121 / 68; Pulse 76; Resp 18; Pulse Ox 98% on R/A; kj2 21:00 BP 118 / 64; Pulse 72; Resp 18; Temp 98; Pulse Ox 100% on R/A; kj2 16:18 Body Mass Index 27.26 (86.18 kg, 177.8 cm) db ED Course: 16:02 Patient arrived in ED. im 16:06 Kera Alvarado MD is Attending Physician. sd2 16:23 Triage completed. db 16:24 Arm band placed on. db 16:39 Rupa Crowder, RN is Primary Nurse. iw 17:01 No provider procedures requiring assistance completed. Maintain EMS IV. Dressing iw intact. Good blood return noted. Site clean \T\ dry. Gauge \T\ site: 20 RAC. Flushed with 10 mL NS. 18:01 XRAY Chest (1 view) In Process Unspecified. EDMS 18:08 CT Head Brain wo Cont In Process Unspecified. EDMS 18:21 Handy Mattson is Hospitalizing Provider. sd2 18:58 Patient has correct armband on for positive identification. Bed in low position. iw Provided Education on: . Client placed on continuous cardiac and pulse oximetry monitoring. NIBP monitoring applied. monitoring engineer on. 22:40 Patient admitted, IV remains in place. kj2 Administered Medications: 17:58 Drug: Lactated Ringers Solution IV 1000 ml IV at 999 ml/hr bolus Route: IV; Rate: 999 iw ml/hr; Site: right antecubital; 19:05 Follow up: IV Status: Completed infusion; IV Intake: 1000ml kj2 17:58 Drug: Meclizine PO 25 mg PO once Route: PO; iw 19:30 Follow up: Response: No adverse reaction kj2 Medication: 17:00 VIS not applicable for this client. iw Intake: 19:05 IV: 1000ml; Total: 1000ml. kj2 Outcome: 18:22 Decision to Hospitalize by Provider. sd2 22:40 Admitted to Med/surg accompanied by tech, via stretcher, room 229, kj2 22:40 Condition: stable 22:41 Patient left the ED. kj2 Signatures: Dispatcher [employer] Rupa Falcon, RN RN iw Kera Alvarado MD MD sd2 Ruthann Villafana, RN RN db Emelina Greenwood Krystal RN RN kj2 Corrections: (The following items were deleted from the chart) 16:23 16:18 BP 87 / 56; Pulse 74bpm; Resp 16bpm; Pulse Ox 97%; Temp 97.6F; 86.18 kg; Height 5 db ft. 10 in.; BMI: 27.2; db 20:10 19:00 General: Appears agitated. Behavior is agitated, kj2 kj2 20:10 19:00 Neuro: Level of Consciousness is awake, alert, Oriented to person, place, time, kj2 situation, kj2
--- NOTE | 2024-08-17 19:00 | RAD REPORT ---
EXAM: Head Brain Wo Cont HISTORY: DIZZINESS COMPARISON: 04/12/2024 TECHNIQUE: Multiple contiguous axial images were obtained for a CT of the brain without contrast. Sag ittal and coronal reformats were performed. One or more of the following dose reduction techniques were used: Automated exposure control, adjus tment of the mA and kV according to patient size, and iterative reconstruction. Unless otherwise specified, incidental findings do not require dedicated imaging follow-up. FINDINGS: No evidence of hydrocephalus, intracranial hemorrhage, or extra-axial fluid collection. The brain is normal in morphology. The calvarium is intact. The visualized paranasal sinuses and mastoid air cells are essentially clear . IMPRESSION: No evidence of acute intracranial abnormality.
--- NOTE | 2024-08-17 19:01 | RAD REPORT ---
EXAMINATION: ONE VIEW CHEST XR CLINICAL INDICATION: Male, 69 years old.,dizziness TECHNIQUE: Frontal chest projection is submitted. Examination is limited by patient positioning and t echnique. COMPARISON: 05/05/2024 FINDINGS: The lungs are well inflated and clear. No pneumothorax or sizable effusion. The heart is normal in s ize. IMPRESSION: No acute intrathoracic abnormalities.
[2024-08-17] MEDS ORDERED: ACETAMINOPHEN 500 MG TAB PO PRN (19:27)
[2024-08-17] MEDS ORDERED: ONDANSETRON 4 MG/2 ML VIAL IV PRN (19:27)
--- NOTE | 2024-08-17 19:40 | P.HP ---
Certification for Inpatient Patient admitted to: Observation With expected LOS: <2 Midnights Practitioner: I am a practitioner with admitting privileges, knowledge of patient current condition, hospital course, and medical plan of care. Services: Services provided to patient in accordance with Admission requirements found in Title 42 Section 412.3 of the Code of Federal Regulations Patient History Date of Service: 08/17/24 Reason for admission: Dizziness History of Present Illness: 69-year-old gentleman with a history of hypertension, type prior pontine CVA presented to the emergency department with debilitating dizziness of 3 days duration. Patient reported that dizziness makes his ambulation, dizziness is worse with standing, walking and stooping. He reports history of chronic dizziness from prior CVA but states that this dizziness feels different. Patient systolic blood pressure noted to be in the 90s in the ED. Patient denies any limb weakness, tinnitus or recent upper respiratory symptoms including nasal congestion sore throat, runny nose. Blood work shows elevated creatinine indicating PAUL, hyponatremia. EKG showed sinus rhythm. Patient is hospitalized for further evaluation. Allergies No Known Allergies Allergy (Verified 02/20/24 02:33) Home Medications: Amlodipine [Norvasc*] 5 mg PO DAILY #30 tab 04/09/24 Hydrocodone 7.5/APAP 325 [[place] 7.5/325 mg*] 1 tab PO Q6H PRN #15 tab 04/09/24 Metformin HCl 1,000 mg PO BID #60 tab 04/09/24 Alcohol Antiseptic Pads [Alcohol Swabs] 1 each TP TID #1 box 04/14/24 Blood Sugar Diagnostic [Blood Glucose Test Strip] 1 each MC TID #90 strip 04/14/24 Blood-Glucose Meter [Blood Glucose Monitoring] 1 each MC TID #1 kit 04/14/24 Insulin Glargine,Hum.rec.anlog [Lantus Solostar] 20 unit SQ BID #30 ml 04/14/24 Lancets 1 each MC TID #100 ea 04/14/24 Smz./Tmp. [Bactrim Ds 800 MG/160 MG] 1 tab PO BID 7 Days #14 tab 04/14/24 Syrge-Ndl,Ins 0.3 ml Half Daniel [Insulin Syringe] 1 each MC TID #1 box 04/14/24 - Past Medical/Surgical History -: Type 2 diabetes -: Homeless -: History of CVA - Family History Father -: Cancer - Social History Alcohol use: No CD- Drugs: No Caffeine use: Yes Review of Systems Other: Patient denied any chest pain or shortness of breath. He denied any impaired vision. Except as documented, all other systems reviewed and negative. Physical Examination - Physical Exam General: Alert, In no apparent distress, Oriented x3 HEENT: Mucous membr. moist/pink, EOMI, Sclerae nonicteric Neck: Supple, JVD not distended Respiratory: Clear to auscultation bilaterally, Normal air movement Cardiovascular: No edema, Regular rate/rhythm, Normal S1 S2, No murmurs Capillary refill: <2 Seconds Gastrointestinal: Normal bowel sounds, Soft and benign, Non-distended, No tenderness Musculoskeletal: No swelling, No tenderness Integumentary: No rashes, No cyanosis Neurological: Normal speech, Normal strength at 5/5 x4 extr Lymphatics: No axilla or inguinal lymphadenopathy - Studies Laboratory Data (last 24 hrs) 08/17/24 08/17/24 17:34 17:34 WBC 10.10 Hgb 12.6 L Hct 37.8 L Plt Count 279 Sodium 134 L Potassium 4.8 BUN 32 H Creatinine 2.37 H Glucose 183 H Magnesium 1.6 Total Bilirubin 0.5 AST 13 L ALT 22 Alkaline Phosphatase 93 Assessment and Plan - Problems (Diagnosis) (1) Orthostatic dizziness Current Visit: Yes Status: Acute (2) History of CVA (cerebrovascular accident) Current Visit: Yes Status: Acute (3) PAUL (acute kidney injury) Current Visit: Yes Status: Acute (4) Type 2 diabetes mellitus Current Visit: No Status: Acute Qualifiers: Diabetes mellitus chcf insulin use: with chcf use - Plan Orthostatic dizziness History of CVA Place patient under observation Stroke protocol initiated given history of CVA. Obtain carotid duplex Obtain MRI of the brain to rule out acute stroke Check orthostatic vital Aspirin, Lipitor Check lipid profile. PT and speech evaluation. PAUL Hyponatremia Hydrate with IV normal saline Monitor renal function for improvement. Diabetes mellitus type 2 Insulin sliding scale. Check hemoglobin A1c. DVT prophylaxis: Heparin SQ Advanced directive: Full code. - Advance Directives Does patient have a Living Will: No Does patient have a Durable POA for Healthcare: No
[2024-08-17] MEDS ORDERED: GLUCAGON 1 MG/VIAL IM PRN (19:48)
[2024-08-17] MEDS ORDERED: D10W 125 ML IV PRN (19:48)
[2024-08-17] MEDS: INSULIN REGULAR (HUMAN) 100 UNIT/ML SQ SCH (21:00)
[2024-08-17 23:04] VITALS: BMI 28.0
[2024-08-17] MEDS: HYDROCODONE/APAP 7.5/325 MG TAB PO PRN (23:29)
[2024-08-17] MEDS: ATORVASTATIN 40 MG TAB PO SCH (23:29)
[2024-08-17] MEDS: NA CHLORIDE 0.9% 1,000 ML IV SCH (23:29)
[2024-08-18] MEDS: HEPARIN 5000 UNIT/ML 1 ML VIAL SQ SCH (00:13)
[2024-08-18 04:43] LABS: Absolute Eosinophils 0.3 K/uL (0-0.5); Absolute Monocytes 0.7 K/uL (0.1-1.3); Absolute Neutrophil 3.7 K/uL (1.8-8.0); Basophils % 0.6 % (0-1.3); Eosinophils % 3.9 % (0-4.4); Hematocrit 35.3 % (39.6-49.0); Hemoglobin 12.1 g/dL (13.6-17.9); Lymphocytes % 30.4 % (15.3-44.8); MCH 29.4 pg (27.0-35.0); MCHC 34.2 g/dL (32.0-36.0); MCV 85.9 fL (80-100); MPV 7.4 fL (7.6-11.3); Monocytes % 10.7 % (3.3-12.3); Neutrophils % 54.4 % (41.7-73.7); Platelets 245 thou/uL (152-406); Red Cell Distribution Width 15.1 % (12.1-15.2)
[2024-08-18 05:03] LABS: Anion Gap 10.3 mEq/L (5.0-15.0); Magnesium 1.9 mg/dL (1.6-2.4); Phosphorus 4.2 mg/dL (2.5-4.9); Potassium 4.3 mEq/L (3.5-5.1); Thyroid Stimulating Hormone 1.21 uIU/mL (0.358-3.740)
[2024-08-18] MEDS: HYDRALAZINE HCL 20 MG/ML VIAL IV ONE (05:43)
--- NOTE | 2024-08-18 06:48 | P.PN ---
Date of Service: 08/18/24 Subjective: feeling better after IV fluids overnight able to work wit PT a bit CT and MRI negative reports diarrhea for a few days in the last week not clear on if less PO intake, and not clear exactly when he last took his meds ROS: 10 point ROS as noted above, otherwise negative Physical Exam: GEN: Alert, oriented, NAD HEENT: Normal conjunctiva, sclera anicteric CV: Regular rate and rhythm, no edema Pulm: Nonlabored respirations on room air, clear bilaterally ABD: Soft, nontender, nondistended vitals reviewed Problem List: PAUL, prerenal dizziness Hyponatremia, improved Hx CVA IDDM2 Hypertension Hypercholesterolemia Degenerative joint disease PAUL, prerenal dizziness Hyponatremia, improved Hx CVA presents with 3 days of ongoing dizziness; worsened with ambulation/standing up/walking. reports history of chronic dizziness from prior CVA but this episode feels different per patient. was recently at a SNF/NH and recently discharged ~1 week ago. Patient is a bit vague on the exact details - why /when Reportedly ran out of home medications and has been not taking any meds for ~1 week, and later states for 1 day systolic BP 90s on arrival, Creatinine 2.37 improving overnight with IV fluids. given LR bolus and meclizine in ED CXR (08/17): negative Carotid u/s (08/17): no hemodynamically significant stenosis CT head (08/17): no acute intracranial findings. MRI brain (08/18): no CVA. Chronic small vessel ischemic changes echo ordered to eval EF / stenosis continue neurochecks, telemetry check orthostatic vitals PT/ST eval IDDM2 accu-cheks, SSI confirm home dose insulin a1c 6.5; previously 12.4 in March 2024 Hypertension Hypercholesterolemia Degenerative joint disease confirm home meds, restart as appropriate resume home amlodipine, statin VTE: heparin sq Code: Full Dispo: Home, ~1-2 days PAUL resolves, dizziness improves, MRI Time Spent Managing Pts Care (In Minutes): 51
[2024-08-18] MEDS: ASPIRIN EC 81 MG TAB PO SCH (07:59)
[2024-08-18] MEDS: AMLODIPINE 5 MG TAB PO SCH (08:00)
[2024-08-18] MEDS ORDERED: ENOXAPARIN 40 MG/0.4 ML SQ SCH (09:00)
--- NOTE | 2024-08-18 09:43 | RAD REPORT ---
US CAROTID DUPLEX BILATERAL CLINICAL INDICATION: HS MAIN Dizziness. History of CVA TECHNIQUE: Real-time grayscale, color flow, and spectral Doppler sonographic images were obtained of the extracranial carotid system using a linear transducer. Arterial peak systolic velocities are recorded as follows. COMPARISON: No prior exam. FINDINGS: RIGHT: Common carotid artery: 65 cm/s Internal carotid artery: 71 cm/s External carotid artery: 74 cm/s Right ICA/CCA ratio: 1.09 Plaque : No significant plaque formation Vertebral artery: 37 LEFT: Common carotid artery: 59 cm/s Internal carotid artery: 67 cm/s External carotid artery: 65 cm/s Left ICA/CCA ratio: 1.1 Plaque : No significant plaque formation Vertebral artery: 44 IMPRESSION: No hemodynamically significant stenosis within the extracranial internal carotid arteries. The degrees of stenosis, if any, are quantified according to the consensus statement of the Society o f Radiologists in Ultrasound (SRUS). Please refer to Juma E, Jesus C, Abelardo G et al. Carotid Artery Stenosis: Dale-Scale and Doppler US Diagnosis--Society of Radiologists in Ultrasound Consensus Conference. Radiology. 2003;229(2):340-6. doi:10.1148/[id number]
--- NOTE | 2024-08-18 11:08 | RAD REPORT ---
EXAMINATION: MRI BRAIN WITHOUT CONTRAST CLINICAL INDICATION: Male, 69 years old.[facility] Transient Memory loss TECHNIQUE: Multiplanar multisequence MR images of the brain were obtained without intravenous contras t. Unless otherwise specified, incidental findings do not require dedicated imaging follow-up. COMPARISON: Head CT 08/17/2024 FINDINGS: INTRACRANIAL: Midline structures are unremarkable. Diffusion-weighted images show no acute or early subacute infarction. There is mild brain atrophy with mildT2/FLAIR hyperintensities in the periventricular and deep white matter regions, likely representing chronic microvascular ischemic stan nges. There is no mass effect or midline shift. No abnormal extraaxial fluid collection. VASCULATURE: Normal signal voids in the larger intracranial arteries and dural venous sinuses. SINUSES: The paranasal sinuses and mastoid air cells are predominantly clear. BONE: The marrow signal pattern is within normal limits. IMPRESSION: No significant intracranial abnormalities. Mild burden of nonspecific white matter signal abnormaliti es, suggestive of chronic small vessel ischemic changes.
--- NOTE | 2024-08-18 12:09 | EKG ---
Test Date: 2024-08-17 Test Time: 17:43:32 Dip Dyer: JUANCARLOS MEASUREMENT RESULTS: Intervals: Rate: 69 OH: 148 QRSD: 82 QT: 412 QTc: 441 [place]: P: 55 OH: 148 QRS: -42 T: 33 INTERPRETIVE STATEMENTS: Normal sinus rhythm Left axis deviation Cannot rule out Anterior infarct, age undetermined Abnormal ECG Compared to ECG 05/05/2024 12:12:07 Left-axis deviation now present Myocardial infarct finding now present Sinus bradycardia no longer present Electronically Signed On 08-18-24 12:07:28 CDT by Reji Vidal
[2024-08-19 06:57] LABS: Hematocrit 36.1 % (39.6-49.0); Hemoglobin 11.9 g/dL (13.6-17.9); MCH 28.7 pg (27.0-35.0); MCHC 32.8 g/dL (32.0-36.0); MCV 87.3 fL (80-100); MPV 7.9 fL (7.6-11.3); Platelets 217 thou/uL (152-406); RBC Red Blood Cell Count 4.13 M/uL (4.33-5.43); Red Cell Distribution Width 15.1 % (12.1-15.2)
[2024-08-19 07:19] LABS: Albumin 3.2 g/dL (3.4-5.0); Anion Gap 7.4 mEq/L (5.0-15.0); Phosphorus 3.6 mg/dL (2.5-4.9); Potassium 4.4 mEq/L (3.5-5.1)
--- NOTE | 2024-08-19 15:59 | ECHO ---
HEIGHT: 5 ft 10 in WEIGHT: 195 lb 4.8 oz DATE OF STUDY: 08/18/[address]: Handy Mattson MD 2-DIMENSIONAL: YES M.MODE: YES DOPPLER: YES COLOR FLOW: YES TDS: NO PORTABLE: YES DEFINITY: NO BUBBLE STUDY: NO DIAGNOSIS: STROKE CARDIAC HISTORY: CATHERIZATION: NO SURGERY: NO PROSTHETIC VALVE: NO PACEMAKER: NO MEASUREMENTS (cm) DIASTOLIC (NORMALS) SYSTOLIC (NORMALS) IVSd 1.0 (0.6-1.2) LA Diam 2.7 (1.9-4.0) LVEF 54% LVIDd 4.6 (3.5-5.7) LVIDs 3.3 (2.0-3.5) %FS 28% LVPWd 1.1 (0.6-1.2) Ao Diam 3.6 (2.0-3.7) 2 DIMENSIONAL ASSESSMENT: RIGHT ATRIUM: NORMAL LEFT ATRIUM: NORMAL RIGHT VENTRICLE: NORMAL LEFT VENTRICLE: NORMAL TRICUSPID VALVE: NORMAL MITRAL VALVE: NORMAL PULMONIC VALVE: NORMAL AORTIC VALVE: NORMAL PERICARDIAL EFFUSION: NONE AORTIC ROOT: NORMAL LEFT VENTRICULAR WALL MOTION: NORMAL. DOPPLER/COLOR FLOW: GRADE I DIASTOLIC DYSFUNCTION. COMMENTS: 1. NORMAL LEFT VENTRICULAR SYSTOLIC FUNCTION. LEFT VENTRICULAR EJECTION FRACTION 60-65%. NORMAL WALL MOTION. 2. GRADE I DIASTOLIC DYSFUNCTION. TECHNOLOGIST: KRIS DIAZ
--- NOTE | 2024-08-19 17:45 | P.PN ---
Date of Service: 08/19/24 Subjective: Feeling better Able to ambulate more, does not feel dizzy at this time Viola some discomfort and pressure in his arm from the IV with IV fluids running No nausea/vomiting/diarrhea, tolerating p.o. ROS: 10 point ROS as noted above, otherwise negative Physical Exam: GEN: Alert, oriented, NAD HEENT: Normal conjunctiva, sclera anicteric CV: Regular rate and rhythm, no edema Pulm: Nonlabored respirations on room air, clear bilaterally ABD: Soft, nontender, nondistended vitals reviewed Problem List: PAUL, prerenal dizziness, resolved Hyponatremia, improved Hx CVA IDDM2 Hypertension Hypercholesterolemia Degenerative joint disease PAUL, prerenal dizziness, resolved Hyponatremia, improved Hx CVA presents with 3 days of ongoing dizziness; worsened with ambulation/standing up/walking. Suspect secondary to dehydration reports history of chronic dizziness from prior CVA but this episode feels different per patient. was recently at a SNF/NH and recently discharged ~1 week ago. Patient is a bit vague on the exact details - why /when Reportedly ran out of home medications and has been not taking any meds for ~1 week, and later states for 1 day systolic BP 90s on arrival, Creatinine 2.37 improving overnight with IV fluids. given LR bolus and meclizine in ED CXR (08/17): negative Carotid u/s (08/17): no hemodynamically significant stenosis CT head (08/17): no acute intracranial findings. MRI brain (08/18): no CVA. Chronic small vessel ischemic changes echo ordered to eval EF / stenosis Continue PT IDDM2 accu-cheks, SSI confirm home dose insulin a1c 6.5; previously 12.4 in March 2024 Hypertension Hypercholesterolemia Degenerative joint disease confirm home meds, restart as appropriate resume home amlodipine, statin VTE: heparin sq Code: Full Dispo: Home, ~1-2 days PAUL resolves, dizziness improves, echo Time Spent Managing Pts Care (In Minutes): 51
[2024-08-20 05:39] LABS: Anion Gap 7.2 mEq/L (5.0-15.0); Potassium 5.2 mEq/L (3.5-5.1)
[2024-08-20 09:18] VITALS: BP 152/86; TEMP 97.8
--- NOTE | 2024-08-20 09:51 | P.DS ---
Admission Date: 08/18/24 Discharge Date: 08/20/24 Disposition: ROUTINE DISCHARGE Discharge Condition: GOOD Reason for Admission: Dizziness Brief History of Present Illness: 69yo M, PMH: hypertension, type prior pontine CVA Patient presented to the emergency department with debilitating dizziness of 3 days duration. Patient reported that dizziness makes his ambulation, dizziness is worse with standing, walking and stooping. He reports history of chronic dizziness from prior CVA but states that this dizziness feels different. Patient systolic blood pressure noted to be in the 90s in the ED. Patient denies any limb weakness, tinnitus or recent upper respiratory symptoms including nasal congestion sore throat, runny nose. Blood work shows elevated creatinine indicating PAUL, hyponatremia. EKG showed sinus rhythm. Patient is hospitalized for further evaluation. Hospital Course: Problem List: PAUL, prerenal dizziness, resolved Hyponatremia, improved Hx CVA IDDM2 Hypertension Hypercholesterolemia Degenerative joint disease Physician discharge instructions: Patient presented with 3 days ongoing dizziness worsened with ambul ation/standing up. He was found to have an PAUL and be mildly hyponatremic on admission with serum creatinine of 2.37, sodium 134; ED staff reported low blood pressure ~90s on arrival. On further discussion, he reported recently being discharged from [facility] ~1-2 weeks ago, and was recently staying in a motel as he normally does for some time as he is unhoused. He stated last week he was having significant diarrhea "spending most of the time on the toilet" and wasn't keeping up with his intake as much, started feeling weak. His blood pressure, renal function, and symptoms quickly improved / resolved overnight with IV fluid hydration. He was evaluated by PT who reported no dizziness, and able to ambulate 300ft with rollator and standby assist. Throughout the hospitalization he denied any further dizziness and was ambulating without issue with his rollator. No diarrhea during his stay, and reported a normal BM. He was able to tolerate PO without issue. His renal function continued to improve daily. Given his initial symptoms and past medical history, he was evaluated for syncope/CVA - echocardiogram, carotid artery ultrasound, and CT and MRI of brain were negative for any acute findings. He was monitored on telemetry without any arrhythmias /concerns. Discussed maintaining good hydration. His medication list was unavailable during this hospitalization. Patient would not tell me what medications he takes. Discussed medication list during his last hospitalization here, but patient said to call [facility].We attempted several times to call [facility] to see if they would be able to send us what patient was taking when he was discharged, however we were unable to get a hold of anyone. Upon reviewing the most recent available medication list from his March 2024 hospitalization, there were no particular chronic medications that would contribute to this acute episode of dehydration from diarrhea. Advised the patient to have close follow up with his PCP in the next few days to review medications. Discussed if he has been taking any diuretic medications or other anti- hypertensive medications separate from his amlodipine, to hold off for these few days until follows with PCP. Medications: no new prescriptions continue home medications as previously prescribed. Follow up: PCP 3-5 days Please call to schedule / confirm appointments Physical Exam: GEN: Alert, oriented, NAD HEENT: Normal conjunctiva, sclera anicteric CV: Regular rate and rhythm, no edema Pulm: Nonlabored respirations on room air, clear bilaterally ABD: Soft, nontender, nondistended Vital Signs/Physical Exam: Temp Pulse Resp BP Pulse Ox 97.8 F 60 18 152/86 H 96 08/20/24 08:00 08/20/24 08:00 08/20/24 08:11 08/20/24 08:00 08/20/24 08:11 Laboratory Data at Discharge: WBC 6.40 thou/uL (4.3-10.9) 08/19/24 06:28 Hgb 11.9 g/dL (13.6-17.9) L 08/19/24 06:28 Hct 36.1 % (39.6-49.0) L 08/19/24 06:28 Plt Count 217 thou/uL (152-406) 08/19/24 06:28 Sodium 135 mEq/L (136-145) L 08/20/24 05:08 Potassium 4.7 mEq/L (3.5-5.1) 08/20/24 08:50 BUN 32 mg/dL (7-18) H 08/20/24 05:08 Creatinine 1.58 mg/dL (0.70-1.30) H 08/20/24 05:08 Glucose 184 mg/dL (74-106) H 08/20/24 05:08 Phosphorus 3.6 mg/dL (2.5-4.9) 08/19/24 06:28 Magnesium 2.0 mg/dL (1.6-2.4) 08/20/24 05:08 Total Bilirubin 0.5 mg/dL (0.2-1.0) 08/17/24 17:34 AST 13 U/L (15-37) L 08/17/24 17:34 ALT 22 U/L (16-61) 08/17/24 17:34 Alkaline Phosphatase 93 U/L (45-117) 08/17/24 17:34 Triglycerides 111 mg/dL (<150) 08/18/24 04:18 Cholesterol 94 mg/dL (<200) 08/18/24 04:18 HDL Cholesterol 40 mg/dL (40-60) 08/18/24 04:18 Cholesterol/HDL Ratio 2.35 08/18/24 04:18 Home Medications: Amlodipine [Norvasc*] 5 mg PO DAILY #30 tab 04/09/24 Hydrocodone 7.5/APAP 325 [Register 7.5/325 mg*] 1 tab PO Q6H PRN #15 tab 04/09/24 Metformin HCl 1,000 mg PO BID #60 tab 04/09/24 Alcohol Antiseptic Pads [Alcohol Swabs] 1 each TP TID #1 box 04/14/24 Blood Sugar Diagnostic [Blood Glucose Test Strip] 1 each MC TID #90 strip 04/14/24 Blood-Glucose Meter [Blood Glucose Monitoring] 1 each MC TID #1 kit 04/14/24 Insulin Glargine,Hum.rec.anlog [Lantus Solostar] 20 unit SQ BID #30 ml 04/14/24 Lancets 1 each MC TID #100 ea 04/14/24 Smz./Tmp. [Bactrim Ds 800 MG/160 MG] 1 tab PO BID 7 Days #14 tab 04/14/24 Syrge-Ndl,Ins 0.3 ml Half Daniel [Insulin Syringe] 1 each MC TID #1 box 04/14/24 Physician Discharge Instructions: Physician discharge instructions: Patient presented with 3 days ongoing dizziness worsened with ambulation/standing up. He was found to have an PAUL and be mildly hyponatremic on admission with serum creatinine of 2.37, sodium 134; ED staff reported low blood pressure ~90s on arrival. On further discussion, he reported recently being discharged from [facility] ~1-2 weeks ago, and was recently staying in a motel as he normally does for some time as he is unhoused. He stated last week he was having significant diarrhea "spending most of the time on the toilet" and wasn't keeping up with his intake as much, started feeling weak. His blood pressure, renal function, and symptoms quickly improved / resolved overnight with IV fluid hydration. He was evaluated by PT who reported no dizziness, and able to ambulate 300ft with rollator and standby assist. Throughout the hospitalization he denied any further dizziness and was ambulating without issue with his rollator. No diarrhea during his stay, and reported a normal BM. He was able to tolerate PO without issue. His renal function continued to improve daily. Given his initial symptoms and past medical history, he was evaluated for syncope/CVA - echocardiogram, carotid artery ultrasound, and CT and MRI of brain were negative for any acute findings. He was monitored on telemetry without any arrhythmias /concerns. Discussed maintaining good hydration. His medication list was unavailable during this hospitalization. Patient would not tell me what medications he takes. Discussed medication list during his last hospitalization here, but patient said to call [facility].We attempted several times to call [facility] to see if they would be able to send us what patient was taking when he was discharged, however we were unable to get a hold of anyone. Upon reviewing the most recent available medication list from his March 2024 hospitalization, there were no particular chronic medications that would contribute to this acute episode of dehydration from diarrhea. Advised the patient to have close follow up with his PCP in the next few days to review medications. Discussed if he has been taking any diuretic medications or other anti-hy pertensive medications separate from his amlodipine, to hold off for these few days until follows with PCP. Medications: no new prescriptions continue home medications as previously prescribed. Follow up: PCP 3-5 days Please call to schedule / confirm appointments Followup: NONE,NONE [Primary Care Provider] - Time spent managing pt's care (in minutes): 45
[2024-08-20 10:25] VITALS: O2SAT 95
== END 2024-08-20 10:42 | disposition home or self-care (01) | DRG 683 ==
LOC: ER 15:50 → ERHOLD 19:23 → 2ND 22:17 → OBSVTOIN 08-18 12:59
PROVIDERS: ADMIT Internal Medicine; ATTEND Hospitalist
DX: N17.9 Acute kidney failure, unspecified (principal); E87.1 Hypo-osmolality and hyponatremia; Z59.00 Homelessness unspecified; I10 Essential (primary) hypertension; E78.00 Pure hypercholesterolemia, unspecified; E86.0 Dehydration; M19.90 Unspecified osteoarthritis, unspecified site; E11.9 Type 2 diabetes mellitus without complications; Z86.73 Personal history of transient ischemic attack (TIA), and cerebral infarction without residual deficits; Z79.4 Long term (current) use of insulin; Z79.84 Long term (current) use of oral hypoglycemic drugs; Z79.899 Other long term (current) drug therapy
CPT/HCPCS: 36415; 70450; 70551; 71045; 80048; 80053; 80061; 80069; 82947; 83036; 83735; 83880; 84100; 84132; 84443; 84484; 85025; 85027; 92610; 93005; 93306; 93880; 94760; 96360; 97112; 97116; 97161; 97530; 99285; G0378; J0360; J1644; J7030; J7120; J8597

== ENCOUNTER 2024-08-25 15:41 | Inpatient (IN) | payer OTHER ==
--- OUTSIDE RECORDS SUMMARY | 2024-08-25 15:51 | XMS REPORT | Continuity of Care Document ---
Author Name Unknown Address [address] [facility] [address] [place] [address] [facility] Address [address] [facility]. [address] [place] [address] Care Team Providers Care Licensed Nurse Practitioner Name Role Phone Pcp, Patient Does Not Have A Primary Care Physic flaquito RAJ GARCIA Attending Clinician Unavailable David Paul DO Attending Clinician [phone] Raj Garcia DO Attending Clinician [phone] Martell Fallon RN Attending Clinician Unavail able FLORENTIN PALACIO Attending Clinician Unavailable Juno Snyder Attending Clinician [phone] Florentin Palacio MD Attending Clinician [phone] Benja Pang MD Attending Clinician + [phone] Azar Solomon CRNA Attending Clinician + [phone] MULUGETA PALMA Attending Clinician Unavailable MULUGETA PALMA Attending Clinician Unavailable Mulugeta Palma MD Attending Clinician [phone] Juno HWANG Attending Clinician Unavailable Juno HWANG Attending Clinician Unavailable VICENTE CALDERA Attending Clinician Unavailable VICENET CALDERA Attending Clinician Unavailable Vicente Zaldivar Attending Clinician [phone] ZO GREEN Attending Clinician Unavailab Zo Rizzo DO Attending Clinician [phone] Doctor Unassigned, Mul[place]ugh Attending Clinician U navashlynable Aol DURAN, Destiny Attending Clinician [phone] NANDO HAGAN Attending Clinician Unavailable NANDO HAGAN Attending Clinician Unavailable Nando Hagan MD Attending Clinician [phone] JOHNNY TEE Attending Clinician Unavailable Randal CARMONA, Johnny Attending Clinician + [phone] KVNG FRNAK Attending Clinician Unavaila miguel ángel Frank STRUCTURAL ARCHITECT, Kvng Johnson Attending Clinician [phone] Nargis Moore RN Attending Clinician Unavaila Destiny Zamudio Attending Clinician [phone] BALJIT GAYLE Attending Clinician Unavailable BALJIT GAYLE Attending Clinician Unavailable DL MILLARD Attending Clinician Unavailable Dl Millard MD Attending Clinician + [phone] DAVID PAUL Attending Clinician Unavailable David Paul DO Attending Clinician + [phone] TARA IRELAND Attending Clinician Unavailable Tara Ireland MD Attending Clinician +[phone] DESTINY MULLER Attending Clinician Unavailable Zo Green DO Attending Clinician +[phone] SILAS ANDERSEN Attending Clinician Unavailable SILAS ANDERSEN Attending Clinician Unavailable JACKIE DIAZ Attending Clinician Unavailab Jackie Moore DO Attending Clinician +[phone] Lorene Stein Attending Clinician [phone] Tl Aranda MD Attending Clinician [phone] TL ARANDA Attending Clinician Unavailable Georgina Garcia RN Attending Clinician Unaduncan ilable Doctor Unassigned, [place]ugh Attending Clinician U navailable Provider, [facility] Attending Clinician Un available Lesli Kasper Attending Clinician [phone] Pob, 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 Attending Clinician UnavailNIMISHA Haywood Attending Clinician Unavail able FRANK QUIROZ Attending Clinician Unavailable Darrell Maxwell MD Attending Clinician [phone] Yossi Siddiqi Attending Clinician [phone] ANENE, YOSSI Attending Clinician Unavailable Idalia RD, Debra Attending Clinician [phone] IDALIA, DEBRA Attending Clinician Unavailable DARRELL BECKFORD Attending Clinician Floridalma Beckford MD, Darrell Schultz Attending Clinician +- [phone] Chelle Fernandez MD Attending Clinician [phone] CHELLE FERNANDEZ Attending Clinician Unavailable Natividad Copeland MD Attending Clinician Glo Way MD Attending Clinician [phone] GLO FINN Attending Clinician Unavailable Kendall Campa MD Attending Clinician [phone] JOCELYN GREER Attending Clinician UnavailDARRELL Khalil III Attending Clinician UnavailMARIAMA Castro Attending Clinician Unavailron COPELAND, NATIVIDAD SCHMIDT Attending Clinician Unavailab RAJ Jordan Admitting Clinician Unavailable Raj Garcia DO Admitting Clinician [phone] Juno HWANG Admitting Clinician Unavailable VICENTE CALDERA [...] Clinician Unavailable Glo Finn MD Admitting Clinician [phone] GLO FINN Admitting Clinician Unavailable Payers Payer Name Policy Type Policy Number Effective Date Expirati on Date Source [employer] MEDICARE OUT OF NETWORK [id number] 2023 00:00:00 [facility] [employer] (MEDICARE REPLACEMENT HMO) [id number] 2022 00:00:00 MEDICARE PART A \\T\\ B [id number] 2018 00:00:00 2019 00:00:00 COMMERCIAL NON-CONTRACT GENERIC [id number] 2018 00:00:00 2019 00:00:00 Problems Condition Name Condition Details Condition Category Status Onset Date Resolution Date Last Treatment Date Treating Clinician Comments Source Hypoglycem ia Hypoglycem ia Disease Active 2023-11 0-01 00:00: 00 [facility] acute hospital Bacteremia Bacteremia Disease Active 8-01 00:00: 00 [facility] acute hospital Balance problem Balance problem Disease Active 7-24 00:00: 00 [facility] acute hospital Omental infarction Omental infarction Disease Active 3-09 00:00: 00 [facility] acute hospital Psoriasifo rm dermatitis Psoriasifo rm dermatitis Disease Active 8-18 00:00: 00 [facility] acute hospital Need for 23-polyval ent pneumococc al polysaccha ride vaccine Need for 23-polyval ent pneumococc al polysaccha ride vaccine Disease Active 3-28 00:00: 00 [facility] acute hospital Cellulitis of foot, left Cellulitis of foot, left Disease Active 5-21 00:00: 00 [facility] acute hospital Edema of both legs Edema of both legs Disease Active 4-07 00:00: 00 [facility] acute hospital Erectile dysfunctio n, unspecifie d erectile dysfunctio n type Erectile dysfunctio n, unspecifie d erectile dysfunctio n type Disease Active 4-07 00:00: 00 [facility] acute hospital Essential hypertensi on Essential hypertensi on Disease Active 4-07 00:00: 00 [facility] acute hospital Edema of both legs Edema of both legs Disease Active 4-07 00:00: 00 [facility] acute hospital Erectile dysfunctio n, unspecifie d erectile dysfunctio n type Erectile dysfunctio n, unspecifie d erectile dysfunctio n type Disease Active 4-07 00:00: 00 [facility] acute hospital Acute midline low back pain without sciatica Acute midline low back pain without sciatica Disease Active 2-26 00:00: 00 [facility] acute hospital Medicare annual wellness visit, subsequent Medicare annual wellness visit, subsequent Disease Active 1-09 00:00: 00 Overview: Formattin g of this note might be different from the original. Added automatic ally from request for surgery [id number] General acute hospital Need for hepatitis C screening test Need for hepatitis C screening test Disease Active 2018-11 00:00: 00 [facility] acute hospital Homeless Homeless Disease Active 2018-11 00:00: 00 General acute hospital Lesion of matthew Lesion of matthew Disease Active 2018-11 00:00: 00 General acute hospital Dyslipidem ia Dyslipidem ia Disease Active 2018-11 00:00: 00 General acute hospital Encounter for screening colonoscop y for non-high-r isk patient Encounter for screening colonoscop y for non-high-r isk patient Disease Active 2018-11 00:00: 00 [facility] acute hospital 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 Disease Active 2018-11 00:00: 00 General acute hospital 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) Disease Active 2018-11 00:00: 00 [facility] acute hospital 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) Disease Active 2018-11 00:00: 00 [facility] acute hospital Erectile dysfunctio n due to type 2 diabetes mellitus Erectile dysfunctio n due to type 2 diabetes mellitus Disease Active 2018-11 00:00: 00 General acute hospital Obesity (BMI 30-39.9) Obesity (BMI 30-39.9) Disease Active 03-17 00:00: 00 General acute hospital Upper respirator y tract infection, unspecifie d type Upper respirator y tract infection, unspecifie d type Disease Resolve d 2018-11 00:00: 00 2021-07-15 00:00:00 2021-07-15 15:36:45 General acute hospital Allergies, Adverse Reactions, Alerts Allergy Name Allergy Type Status Severity Reaction(s) Onset Date Inactive Date Treating Clinician Comments Source NO KNOWN ALLERGIE S Drug Class Active [facility] acute hospital Family History Family Member Diagnosis Comments Start Date Stop Date Sourc e Natural father Cancer Unive [facility] Natural mother Cancer Unive [facility] Social History Social Habit Start Date Stop Date Quantity Comments [facility] beverage intake 2024-08-23 00:00:00 2024-08-23 00:00:00 Current non-drinker of alcohol (finding) [facility] Alcohol intake 2024-02-11 00:00:00 2024-02-11 00:00:00 Current non-drinker of alcohol (finding) [facility] Exposure to SARS-CoV-2 (event) 2021-06-10 00:00:00 2021-07-10 10:13:00 Not sure [facility] History of Social function 2021-07-10 00:00:00 2021-07-10 00:00:00 [facility] Tobacco use and exposure 2019-01-14 00:00:00 2019-01-14 00:00:00 Smokeless tobacco non-user [facility] Sex assigned at 1955 00:00:00 1955 00:00:00 [facility] Smoking Status Start Date Stop Date Source Never smoked tobacco General acute hospital Medications Ordered Medication Name Filled Medication Name Start Date Stop Date Current Medication? Ordering Clinician Indication Dosage Frequency Signature (SIG) Comments Components Source mupirocin (BACTROBAN OINT) 2 % oinintment 2023-11 19:00: 00 Yes General acute hospital Sliding Scale Insulin - Lispro (HumaLOG) 2023-11 17:00: 00 Yes Subcutaneo us, TID MEALS+HS, First dose on Sheree 08/25/24 at 1200, Until Discontinu ed, Routine [facility] acute hospital metFORMIN (GLUCOPHAGE ) tablet 500 mg 2023-11 17:00: 00 Yes 500mg 500 mg, Oral, BID MEALS, First dose on Sheree 08/25/24 at 1200, Until Discontinu ed, Routine [facility] acute hospital atorvastati n (LIPITOR) tablet 20 mg 2023-11 02:00: 00 Yes 20mg 20 mg, Oral, QHS, First dose on Thu08/24/24 at 2100, Until Discontinu ed [facility] acute hospital mupirocin 2 % ointment 2023-11 00:00: 00 Yes [id number] Apply to area(s) 3 (three) times daily. [facility] acute hospital lisinopriL- hydrochloro thiazide 10-12.5 mg per tablet 2023-11 00:00: 09-25 04:59 :00 Yes [id number] 1{tbl} Take 1 tablet by mouth in the morning for 30 days. [facility] acute hospital furosemide 20 mg tablet 2023-11 00:00: 00 09-25 04:59 :00 Yes [id number] 20mg Take 1 tablet by mouth in the morning for 30 days. [facility] acute hospital aspirin 81 mg EC tablet 2023-11 00:00: 00 09-25 04:59 :00 Yes [id number] 81mg Take 1 tablet by mouth in the morning for 30 days. [facility] acute hospital gabapentin (NEURONTIN) 100 mg capsule 2023-11 00:00: 00 09-25 04:59 :00 Yes [id number] 200mg Take 2 capsules by mouth in the morning and 2 capsules at noon and 2 capsules in the evening. Do all this for 30 days. [facility] acute hospital metFORMIN 1,000 mg tablet 2023-11 00:00: 00 09-25 04:59 :00 Yes [id number] 1000mg Take 1 tablet by mouth in the morning and 1 tablet in the evening. Take with meals. Do all this for 30 days. [facility] acute hospital simvastatin 40 mg tablet 2023-11 00:00: 00 09-25 04:59 :00 Yes [id number] 40mg Take 1 tablet by mouth at bedtime for 30 days. [facility] acute hospital gabapentin (NEURONTIN) capsule 200 mg 2023-11 19:00: 00 Yes 200mg 200 mg, Oral, TID, First dose (after last modificati on) on Thu08/24/24 at 1400, Until Discontinu ed, Routine [facility] D10W 10 % IV infusion 2023-11 17:00: 00 08-25 00:50 :56 No at 50 mL/hr, IV Infusion, CONTINUOUS , Starting on Thu08/24/24 at 1200, Until Thu08/24/24 at 1950, Routine [facility] D10W 10 % IV infusion 2023-11 15:45: 00 08-24 16:52 :00 No at 100 mL/hr, IV Infusion, CONTINUOUS , Starting on Thu08/24/24 at 1045, Until Thu08/24/24 at 1152, Routine [facility] lisinopriL (PRINIVIL,Z ESTRIL) tablet 10 mg 2023-11 14:00: 00 Yes 10mg 10 mg, Oral, DAILY, First dose on Thu08/24/24 at 0900, Until Discontinu ed, Routine [facility] aspirin EC tablet 81 mg 2023-11 14:00: 00 Yes 81mg 81 mg, Oral, DAILY, First dose on Thu08/24/24 at 0900, Until Discontinu ed, Routine [facility] hydroCHLORO thiazide (ESIDRIX) tablet 12.5 mg 2023-11 14:00: 00 08-24 13:33 :00 No 12.5mg 12.5 mg, Oral, DAILY, 1 dose, First dose on Thu08/24/24 at 0900, Routine [facility] furosemide (LASIX) injection 40 mg 2023-11 05:00: 00 Yes 40mg 40 mg, Slow IV Push, DAILY, First dose on Thu08/24/24 at 0000, Until Discontinu ed, Routine [facility] gabapentin (NEURONTIN) capsule 100 mg 2023-11 01:00: 00 08-24 17:10 :41 No 100mg 100 mg, Oral, TID, First dose on Thu08/23/24 at 2000, Until Discontinu ed, Routine [facility] HYDROcodone -acetaminop hen (NORCO 5) tablet 1 tablet 2023-11 00:38: 38 Yes 1{tbl} 1 tablet, Oral, Q6HPRN, Starting on Thu08/23/24 at 1938, Until Discontinu ed, Routine, Pain (scale 7-10) [facility] acute hospital tiZANidine (ZANAFLEX) tablet 4 mg 2023-11 00:38: 06 Yes 4mg [facility] acute hospital enoxaparin (LOVENOX) injection 40 mg 2023-11 22:00: 00 Yes 40mg 40 mg, Subcutaneo us, DAILY, First dose on Thu08/23/24 at 1700, Until Discontinu ed, Routine [facility] acute hospital D10W 10 % IV infusion 2023-11 21:45: 00 08-24 15:36 :54 No at 200 mL/hr, IV Infusion, CONTINUOUS , Starting on Thu08/23/24 at 1645, Until Thu08/24/24 at 1036, Routine [facility] acute hospital D10W 10 % IV infusion 2023-11 17:00: 00 08-23 21:34 :55 No at 150 mL/hr, IV Infusion, CONTINUOUS , Starting on Thu08/23/24 at 1200, Until Thu08/23/24 at 1634, Routine [facility] acute hospital glucagon HCL injection 1 mg 2023-11 16:36: 57 Yes 1mg 1 mg, Intramuscu lar, PRN, Starting on Thu08/23/24 at 1136, Until Discontinu ed, RICHARD, Low blood sugar, Blood Glucose < or = 70 mg/dL and patient is NPO, unable to swallow or has mental changes. [facility] acute hospital dextrose 50 % in water (D50W) injection 25 mL 2023-11 16:36: 57 Yes 25mL 25 mL, Slow IV Push, PRN, Starting on Thu08/23/24 at 1136, Until Discontinu ed, RICHARD, Blood Glucose < or = 70 mg/dL and patient is NPO, unable to swallow or has mental status changes. [facility] acute hospital dextrose 50 % in water (D50W) injection 50 mL 2023-11 16:00: 00 08-23 15:54 :00 No 50mL 50 mL, Intravenou s, ONCE, 1 dose, On Thu08/23/24 at 1100, STAT [facility] acute hospital dextrose 50 % in water (D50W) injection 25 mL 2023-11 14:45: 00 08-23 14:41 :00 No 25mL 25 mL, Slow IV Push, ONCE, 1 dose, On Thu08/23/24 at 0945, STAT [facility] acute hospital insulin NPH (HUMULIN N NPH U-100 INSULIN) 100 unit/mL injection 07-01 00:00: 00 08-01 04:59 :00 Yes [id number] 20U inject 20 Units under the skin 2 (two) times daily before breakfast and dinner for 30 days. [facility] acute hospital amoxicillin -clavulanat e 875-125 mg per tablet 07-01 00:00: 00 07-23 04:59 :00 Yes [id number] 1{tbl} Take 1 tablet by mouth every 12 (twelve) hours for 21 days. [facility] acute hospital amoxicillin -clavulanat e (AUGMENTIN) 875-125 mg per tablet 1 tablet 06-28 19:30: 00 07-02 12:59 :00 Yes 1{tbl} 1 tablet, Oral, Q12H, 8 doses, First dose on Thu06/28/24 at 1430, Last dose on Thu07/01/24 at 2000, Routine, Reason for Anti-Infec tive: Documented Infection, Documented Infection Site: Urine, Duration of Therapy: 7 days [facility] acute hospital rifAMPin (RIFADIN) capsule 300 mg 06-28 17:15: 00 06-28 19:42 :55 No 300mg 300 mg, Oral, Q8H, First dose on Thu06/28/24 at 1215, Until Discontinu ed, RICHARD, Reason for Anti-Infec tive: Documented Infection, Documented Infection Site: Blood, Duration of Therapy: 7 days [facility] acute hospital cefTRIAXone (ROCEPHIN) 1,000 mg in NaCl 0.9% (NS) 100 mL MINI-BAG 06-28 03:00: 00 06-28 19:17 :32 No 1000mg 1,000 mg, IV Piggyback, Q24H ABX, 7 doses, First dose on Thu06/27/24 at 2200, Last dose on Thu07/03/24 at 2200, Administer over 30 Minutes, 100 mL, Reason for Anti-Infec tive: Documented Infection, Documented Infection Site: Urine, Duration of Therapy: 7 days [facility] acute hospital NaCl 0.9% (NS) IV infusion 1,000 mL 06-27 19:00: 00 06-29 06:11 :11 No 1000mL at 50 mL/hr, IV Infusion, CONTINUOUS , Starting on Thu06/27/24 at 1400, Until Thu06/29/24 at 0111, Routine, KVO [facility] Saline Bubble Study 06-27 18:24: 13 Yes [id number] 6mL 6 mL, Injection, SEE-INSTRU CTIONS, Starting on Thu06/27/24 at 1324, Until Discontinu ed, Routine [facility] acute hospital vancomycin (VANCOCIN) 1,000 mg in NaCl 0.9% (NS) 250 mL VIAL-MATE IV piggyback 06-27 17:00: 00 07-04 16:59 :00 Yes 1000mg 1,000 mg, IV Piggyback, Q12H ABX, 14 doses, First dose on Thu06/27/24 at 1200, Last dose on Thu07/04/24 at 0000, Administer over 60 Minutes, 250 mL, Reason for Anti-Infec tive: Documented Infection, Documented Infection Site: Blood, Duration of Therapy: 7 days [facility] acute hospital NaCl 0.9% (NS) injection 10 mL 06-27 15:11: 58 Yes 10mL 10 mL, Slow IV Push, PRN, Starting on Thu06/27/24 at 1011, Until Discontinu ed, Routine, line maintenanc e [facility] acute hospital lidocaine 1% (PF) (XYLOCAINE) injection 5 mL 06-27 15:11: 58 06-27 15:45 :00 No 5mL 5 mL, Subcutaneo us, PRN, 1 dose, Starting on Thu06/27/24 at 1011, Until Thu06/27/24 at 1045, Routine, Local anesthesia [facility] acute hospital magnesium sulfate in D5W 1 gram/100 mL RTU IV Piggyback 1 g 06-26 15:15: 00 06-26 16:55 :00 No 1g 1 g, IV Piggyback, ONCE, 1 dose, On Thu06/26/24 at 1015, Administer over 60 Minutes, 100 mL [facility] acute hospital lisinopriL (PRINIVIL,Z ESTRIL) tablet 20 mg 06-26 13:00: 00 Yes 20mg 20 mg, Oral, BID, First dose (after last modificati on) on Thu06/26/24 at 0800, Until Discontinu ed, Routine [facility] hydralAZINE (APRESOLINE ) injection 10 mg 06-26 12:45: 32 Yes 10mg 10 mg, Slow IV Push, Q4HPRN, Starting on Thu06/26/24 at 0745, Until Discontinu ed, Routine, DBP=>100; SBP=>160 [facility] acute hospital lisinopriL (PRINIVIL,Z ESTRIL) tablet 20 mg 06-25 14:00: 00 06-26 12:45 :20 No 20mg 20 mg, Oral, DAILY, First dose (after last modificati on) on Thu06/25/24 at 0900, Until Discontinu ed, Routine [facility] atorvastati n (LIPITOR) tablet 40 mg 06-25 02:00: 00 Yes 40mg 40 mg, Oral, QHS, First dose on Thu06/24/24 at 2100, Until Discontinu ed [facility] lisinopriL (PRINIVIL,Z ESTRIL) tablet 10 mg 06-24 20:45: 00 06-25 00:21 :41 No 10mg 10 mg, Oral, DAILY, First dose on Thu06/24/24 at 1545, Until Discontinu ed, Routine [facility] vancomycin 1,250 mg in NaCl 0.9% (NS) 250 mL VIAL-MATE IV piggyback 06-24 15:30: 00 06-27 14:18 :02 No 1250mg 1,250 mg, IV Piggyback, Q12H ABX, First dose on Thu06/24/24 at 1030, Until Discontinu ed, Administer over 90 Minutes, 250 mL, Reason for Anti-Infec tive: Documented Infection, Documented Infection Site: Blood, Duration of Therapy: 7 days [facility] acute hospital furosemide (LASIX) tablet 20 mg 06-24 14:00: 00 Yes 20mg 20 mg, Oral, DAILY, First dose on Thu06/24/24 at 0900, Until Discontinu ed, Routine [facility] acute hospital aspirin EC tablet 81 mg 06-24 14:00: 00 Yes 81mg 81 mg, Oral, DAILY, First dose on Thu06/24/24 at 0900, Until Discontinu ed, Routine [facility] acute hospital gabapentin (NEURONTIN) capsule 100 mg 06-24 13:00: 00 Yes 100mg 100 mg, Oral, TID, First dose on Thu06/24/24 at 0800, Until Discontinu ed, Routine [facility] acute hospital insulin NPH (HUMULIN N) injection 20 Units 06-24 12:30: 00 Yes 20U 20 Units, Subcutaneo us, BIDAC, First dose on Thu06/24/24 at 0730, Until Discontinu ed, Routine [facility] acute hospital tiZANidine (ZANAFLEX) tablet 4 mg 06-24 12:28: 17 Yes 4mg [facility] acute hospital ondansetron (ZOFRAN (PF)) injection 4 mg 06-24 09:32: 26 Yes 4mg 4 mg, Slow IV Push, Q6HPRN, Nausea and Vomiting (N/V), Starting on Thu06/24/24 at 0432, Doses of ondansetro n 16 mg and above need to be administer ed via IV piggyback. For Dose >=24mg ECG monitoring is advisable. [facility] acute hospital enoxaparin (LOVENOX) injection 40 mg 06-23 22:00: 00 Yes 40mg 40 mg, Subcutaneo us, DAILY, First dose on Thu06/23/24 at 1700, Until Discontinu ed, Routine [facility] acute hospital Sliding Scale Insulin - Lispro (HumaLOG) 06-23 22:00: 00 Yes Subcutaneo us, TID MEALS+HS, First dose on Thu06/23/24 at 1700, Until Discontinu ed, Routine [facility] acute hospital cefTRIAXone (ROCEPHIN) 1,000 mg in NaCl 0.9% (NS) 100 mL MINI-BAG 06-23 20:00: 00 06-24 12:26 :52 No 1000mg 1,000 mg, IV Piggyback, Q24H ABX, 5 doses, First dose on Thu06/23/24 at 1500, Last dose on Thu06/27/24 at 1500, Administer over 30 Minutes, 100 mL, Reason for Anti-Infec tive: Empiric Therapy for Suspected Infection, Empiric Therapy Site: Urine, Duration of therapy: 5 days [facility] acute hospital acetaminoph en (TYLENOL) tablet 650 mg 06-23 19:05: 37 Yes 650mg 650 mg, Oral, Q6HPRN, Starting on Thu06/23/24 at 1405, Until Discontinu ed, Routine, Pain (scale 1-3) [facility] acute hospital glucagon (GLUCAGEN DIAGNOSTIC KIT) injection 1 mg 06-23 19:03: 24 Yes 1mg 1 mg, Intramuscu lar, PRN, Starting on Thu06/23/24 at 1403, Until Discontinu ed, RICHARD, Blood Glucose < or = 70 mg/dL and patient is NPO, unable to swallow or has mental changes. [facility] acute hospital dextrose 50 % in water (D50W) injection 25 mL 06-23 19:03: 24 Yes 25mL 25 mL, Slow IV Push, PRN, Starting on Thu06/23/24 at 1403, Until Discontinu ed, RICHARD, Blood Glucose < or = 70 mg/dL and patient is NPO, unable to swallow or has mental status changes. [facility] acute hospital vancomycin (VANCOCIN) 1,500 mg in NaCl 0.9% (NS) 500 mL VIAL-MATE IV piggyback 06-23 17:45: 00 06-23 19:19 :00 No 15mg/kg 1,500 mg (rounded from 1,374 mg = 15 mg/kg ?91.6 kg), IV Piggyback, ONCE, 1 dose, On Sheree 06/23/24 at 1245, Administer over 90 Minutes, 500 mL, Reason for Anti-Infec tive: Documented Infection, Documented Infection Site: Blood, Duration of Therapy: Once (ED) [facility] acute hospital cephALEXin (KEFLEX) capsule 1,000 mg 06-20 17:00: 00 06-20 17:01 :00 No 1000mg 1,000 mg, Oral, ONCE, 1 dose, On Thu06/20/24 at 1200, RICHARD, Reason for Anti-Infec tive: Documented Infection, Documented Infection Site: Skin / Soft Tissue, Duration of Therapy: Once (ED) [facility] acute hospital neomycin-ba citracin-po lymyxin 3.5mg-400 unit- 5,000 unit/gram topical ointment 06-20 00:00: 00 08-23 00:00 :00 No [id number] Apply to area(s) 4 (four) times daily. [facility] acute hospital cephALEXin 500 mg capsule 06-20 00:00: 00 07-01 00:00 :00 No [id number] 500mg Take 1 capsule by mouth 4 (four) times daily. [facility] acute hospital ketorolac (TORADOL) injection 15 mg 06-19 19:30: 00 06-19 18:25 :00 No 15mg 15 mg, Slow IV Push, ONCE, 1 dose, On 06/19/24 at 1430, RICHARD [facility] acute hospital cefTRIAXone (ROCEPHIN) 1,000 mg in NaCl 0.9% (NS) 100 mL MINI-BAG 06-19 19:00: 00 06-19 19:49 :00 No 1000mg 1,000 mg, IV Piggyback, ONCE, 1 dose, On 06/19/24 at 1400, Administer over 30 Minutes, 100 mL, Reason for Anti-Infec tive: Empiric Therapy for Suspected Infection, Empiric Therapy Site: Urine, Duration of therapy: Once (ED) [facility] acute hospital mupirocin 2 % ointment 06-19 00:00: 00 08-23 00:00 :00 No [id number] Apply to area(s) 3 (three) times daily. [facility] acute hospital furosemide (LASIX) tablet 40 mg 06-17 00:30: 00 06-16 23:47 :00 No 40mg 40 mg, Oral, ONCE, 1 dose, On Thu06/16/24 at 1930, Routine [facility] acute hospital acetaminoph en (TYLENOL) tablet 1,000 mg 06-16 23:45: 00 06-16 23:47 :00 No 1000mg 1,000 mg, Oral, ONCE NOW, 1 dose, On Thu06/16/24 at 1845, Routine [facility] acute hospital insulin regular human (HUMULIN R) injection 5 Units 04-06 10:30: 00 04-06 09:38 :00 No 5U 5 Units, Subcutaneo us, ONCE, 1 dose, On Thu04/06/24 at 0530, Routine, Indication for insulin: Hyperglyce danae General acute hospital insulin regular human (HUMULIN R) injection 5 Units 04-06 09:30: 00 04-06 08:38 :00 No 5U 5 Units, Subcutaneo us, ONCE, 1 dose, On Thu04/06/24 at 0430, Routine, Indication for insulin: Hyperglyce danae [facility] ergocalcife rol (vitamin d2) (CALCIFEROL ) capsule 50,000 Units 04-06 09:00: 00 04-06 08:33 :00 No [id number] 50,000 Units, Oral, ONCE NOW, 1 dose, On Thu04/06/24 at 0400, Routine [facility] magnesium sulfate in water 2 gram/50 mL (4 %) infusion 2 g 04-06 08:45: 00 04-06 09:30 :00 No 2g 2 g, IV Piggyback, Administer over 60 Minutes, ONCE, 1 dose, On Thu04/06/24 at 0345, [facility] thiamine (VITAMIN B1) injection 100 mg 04-06 08:00: 00 04-06 08:32 :00 No 100mg 100 mg, Slow IV Push, ONCE, 1 dose, On Thu04/06/24 at 0300, [facility] ceFAZolin (ANCEF) 1,000 mg in NaCl 0.9% (NS) 100 mL MINI-BAG 04-06 07:45: 00 04-06 07:30 :00 No 1000mg 1,000 mg, Intravenou s, ONCE, 1 dose, On Thu04/06/24 at 0245, Administer over 30 Minutes, 100 mL, Reason for Anti-Infec tive: Documented Infection, Documented Infection Site: Skin / Soft Tissue, Duration of Therapy: Once (ED) [facility] insulin regular human (HUMULIN R) injection 10 Units 04-06 07:30: 00 04-06 07:34 :00 No 10U 10 Units, Slow IV Push, ONCE, 1 dose, On Thu04/06/24 at 0230, STAT, Indication for insulin: Hyperglyce [facility] furosemide (LASIX) injection 40 mg 04-06 07:00: 00 04-06 06:59 :00 No 40mg 40 mg, IV Push, ONCE, 1 dose, On Thu04/06/24 at 0200, [facility] gabapentin (NEURONTIN) capsule 300 mg 04-06 07:00: 00 04-06 06:57 :00 No 300mg 300 mg, Oral, ONCE, 1 dose, On Thu04/06/24 at 0200, [facility] gabapentin (NEURONTIN) 100 mg capsule 04-06 00:00: 00 08-25 00:00 :00 No [id number] 100mg Take 1 capsule by mouth in the morning and 1 capsule at noon and 1 capsule in the evening. [facility] furosemide 20 mg tablet 04-06 00:00: 00 07-01 00:00 :00 No [id number] 20mg Take 1 tablet by mouth every morning. [facility] cephALEXin 500 mg capsule 04-06 00:00: 00 07-01 00:00 :00 No [id number] 500mg Take 1 capsule by mouth 4 (four) times daily. [facility] mupirocin 2 % ointment 04-06 00:00: 00 07-01 00:00 :00 No [id number] Apply to area(s) 3 (three) times daily. [facility] NaCl 0.9% (NS) bolus infusion 500 mL 04-03 21:15: 00 04-03 22:05 :00 No 500mL at 999 mL/hr, 500 mL, IV Infusion, ONCE, 1 dose, On 04/03/24 at 1615, [facility] magnesium sulfate in water 2 gram/50 mL (4 %) infusion 2 g 04-03 17:45: 00 04-03 19:00 :00 No 2g 2 g, IV Piggyback, Administer over 60 Minutes, ONCE, 1 dose, On 04/03/24 at 1245, Routine [facility] NaCl 0.9% (NS) bolus infusion 500 mL 04-03 16:00: 00 04-03 16:30 :00 No 500mL at 999 mL/hr, 500 mL, IV Infusion, ONCE, 1 dose, On 04/03/24 at 1100, [facility] acetaminoph en (TYLENOL) tablet 650 mg 04-03 15:15: 00 04-03 15:46 :00 No 650mg 650 mg, Oral, ONCE, 1 dose, On 04/03/24 at 1015, [facility] piperacilli n-tazobacta m (ZOSYN) 3.375 g in NaCl 0.9% (NS) 100 mL VIAL-MATE 04-03 15:15: 00 04-03 16:19 :00 No 3.375g 3.375 g, IV Piggyback, ONCE, 1 dose, On Thu04/03/24 at 1015, Administer over 30 Minutes, 100 mL, Reason for Anti-Infec tive: Documented Infection, Documented Infection Site: Skin / Soft Tissue, Duration of Therapy: Once (ED) [facility] doxycycline hyclate 100 mg capsule 04-03 00:00: 00 07-01 00:00 :00 No [id number] 100mg Take 1 capsule by mouth in the morning and 1 capsule in the evening. [facility] insulin regular human (HUMULIN R) injection 10 Units 03-31 21:45: 00 03-31 23:18 :00 No 10U 10 Units, Slow IV Push, ONCE, 1 dose, On Thu03/31/24 at 1645, STAT, Indication for insulin: Hyperglyce danae [facility] acetaminoph en (TYLENOL) tablet 650 mg 03-29 21:15: 00 03-29 22:29 :00 No 650mg 650 mg, Oral, ONCE, 1 dose, On Thu03/29/24 at 1615, [facility] NaCl 0.9% (NS) bolus infusion 500 mL 03-22 16:30: 00 03-22 21:50 :00 No 500mL at 999 mL/hr, 500 mL, IV Infusion, ONCE, 1 dose, [facility]03/22/24 [facility] 1130[facility] 0.9% (NS) bolus infusion 1,000 mL 03-12 03:30: 00 03-12 04:43 :00 No 1000mL at 999 mL/hr, 1,000 mL, IV Infusion, ONCE, 1 dose, On Thu03/11/24 at 2230, STAT [facility] insulin regular human (HUMULIN R) injection 10 Units 03-12 03:30: 00 03-12 02:40 :00 No 10U 10 Units, IV Push, ONCE, 1 dose, On Thu03/11/24 at 2230, [facility]ARD
In dication for insulin: Hyperglyce danae [facility] NaCl 0.9% (NS) bolus infusion 1,000 mL 03-12 02:45: 00 03-12 03:00 :00 No 1000mL at 999 mL/hr, 1,000 mL, IV Infusion, ONCE, 1 dose, On Thu03/11/24 at 2145, STAT [facility] meclizine (TRAVEL-EAS E (MECLIZINE) ) tablet 25 mg 02-09 17:15: 00 02-09 17:17 :00 No 25mg 25 mg, Oral, ONCE, 1 dose, On Thu02/10/24 at 1215, [facility] ketorolac (TORADOL) injection 15 mg 02-08 20:00: 00 02-08 20:42 :00 No 15mg 15 mg, Intramuscu lar, ONCE, 1 dose, On Thu02/09/24 at 1500, Routine [facility] methocarbam oL (ROBAXIN) tablet 1,000 mg 02-08 19:15: 00 02-08 20:43 :00 No 1000mg 1,000 mg, Oral, ONCE, 1 dose, On Thu02/09/24 at 1415, [facility] cyclobenzap rine (FLEXERIL) tablet 10 mg 02-05 15:30: 00 02-05 15:14 :00 No 10mg 10 mg, Oral, ONCE, 1 dose, On Thu02/06/24 at 1030, Routine [facility] cyclobenzap rine 10 mg tablet 02-05 00:00: 00 02-11 04:59 :00 No [id number] 10mg Take 1 tablet by mouth in the morning and 1 tablet at noon and 1 tablet in the evening. Do all this for 15 doses. [facility] dicyclomine (BENTYL) tablet 20 mg 01-29 20:45: 00 01-29 20:51 :00 No 20mg 20 mg, Oral, ONCE, 1 dose, On 01/30/24 at 1445, [facility] methocarbam oL (ROBAXIN) tablet 1,000 mg 01-29 19:15: 00 01-29 19:06 :00 No 1000mg 1,000 mg, Oral, ONCE, 1 dose, On 01/30/24 at 1315, [facility] ketorolac (TORADOL) tablet 10 mg 01-29 17:45: 00 01-29 17:01 :00 No 10mg 10 mg, Oral, ONCE, 1 dose, On 01/30/24 at 1145, Routine [facility] tiZANidine 4 mg tablet 01-29 00:00: 00 08-25 00:00 :00 No [id number] 4mg Take 1 tablet by mouth every 6 (six) hours as needed for Pain (scale 7-10). [facility] dicyclomine 20 mg tablet 01-29 00:00: 00 07-01 00:00 :00 No [id number] 20mg Take 1 tablet by mouth 4 (four) times daily as needed for Abdominal pain. [facility] ibuprofen (IBU) tablet 600 mg 01-15 03:30: 00 01-15 03:42 :00 No 600mg 600 mg, Oral, ONCE, 1 dose, On Sheree 01/14/24 at 2130, [facility] methocarbam oL (ROBAXIN) tablet 750 mg 01-15 03:26: 00 01-15 03:42 :00 No 750mg 750 mg, Oral, ONCE NOW, 1 dose, On Sheree 01/14/24 at 2130, [facility] LISINOPRIL- HYDROCHLORO THIAZIDE 10-12.5 mg per tablet 02-17 00:00: 00 08-25 00:00 :00 No [id number] Take 1 tablet by mouth once daily [facility] blood sugar diagnostic (TRUE METRIX GLUCOSE TEST STRIP) strip 2020-11 00:00: 00 Yes [id number] Monitor Blood Glucose daily [facility] lancets (TRUEPLUS LANCETS) 33 gauge Misc 2020-11 00:00: 00 Yes [id number] Monitor Blood Glucose daily [facility] Alcohol Swabs (BD SINGLE USE SWABS REGULAR) PadM 2020-11 00:00: 00 Yes [id number] Apply to area(s) daily. Monitor Blood Glucose daily [facility] simvastatin 40 mg tablet 2020-11 00:00: 00 08-25 00:00 :00 No [id number] 40mg Take 1 tablet by mouth at bedtime. [facility] furosemide 20 mg tablet 2020-11 00:00: 00 08-25 00:00 :00 No [id number] 20mg Take 1 tablet by mouth daily. [facility] SIMVASTATIN 40 mg tablet 2020-11 00:00: 00 Yes [id number] 40mg TAKE 1 TABLET BY MOUTH AT BEDTIME [facility] furosemide 20 mg tablet 07-10 00:00: 00 Yes [id number] 20mg Take 1 tablet by mouth every Thursday, and Thursday in the evening. [facility] metFORMIN 1,000 mg tablet 07-10 00:00: 00 08-25 00:00 :00 No [id number] 1000mg Take 1 tablet by mouth 2 (two) times daily with meals. [facility] insulin NPH (HUMULIN N NPH U-100 INSULIN) 100 unit/mL injection 07-10 00:00: 00 07-01 00:00 :00 No [id number] INJECT 35 UNITS SUBCUTANEO USLY EVERY MORNING AND EVENING. Office visit needed for further refills. [facility] lisinopriL- hydrochloro thiazide 10-12.5 mg per tablet 07-10 00:00: 00 02-17 00:00 :00 No [id number] 1{tbl} Take 1 tablet by mouth daily. [facility] simvastatin (ZOCOR) 40 mg tablet 18 00:00: 00 10-04 00:00 :00 No [id number] 40mg Take 1 tablet by mouth at bedtime. [facility] insulin NPH (HUMULIN N NPH U-100 INSULIN) 100 unit/mL injection 7 00:00: 00 07-10 00:00 :00 No [id number] INJECT 35 UNITS SUBCUTANEO USLY EVERY MORNING AND EVENING. Office visit needed for further refills. [facility] HUMULIN N NPH U-100 INSULIN 100 unit/mL injection 6 00:00: 00 Yes [id number] INJECT 35 UNITS SUBCUTANEO USLY IN THE MORNING AND IN THE EVENING [facility] furosemide 20 mg tablet 02-15 00:00: 00 07-10 00:00 :00 No [id number] 20mg Take 1 tablet by mouth every Thursday, and Thursday in the evening. [facility] sildenafiL 50 mg tablet 02-14 00:00: 00 07-01 00:00 :00 No [id number] 50mg Take 1 tablet by mouth as needed (Erectile dysfunctio n). Take 50mg x 1, about 30 mins - 4 hours prior to sexual activity. [facility] insulin NPH (HUMULIN N NPH U-100 INSULIN) 100 unit/mL injection 02-14 00:00: 00 05-21 00:00 :00 No [id number] INJECT 35 UNITS SUBCUTANEO USLY IN THE MORNING AND IN THE EVENING [facility] HUMULIN N NPH U-100 INSULIN 100 unit/mL injection 3- 00:00: 00 02-14 00:00 :00 No [id number] INJECT 35 UNITS SUBCUTANEO USLY IN THE MORNING AND IN THE EVENING [facility] 3-17 00:00: 00 Yes [id number] E11.8: dispense Insulin Syringe 31 gauge brand covered by insurance. Monitor Blood Sugar at Home BID [facility] 02-06 00:00: 00 07-01 00:00 :00 No [id number] E11.8: dispense Insulin Syringe 31 gauge brand covered by insurance. Monitor Blood Sugar at Home BID [facility] Insulin Syringe-Nee dle U-100 1 mL 27 gauge x 1/2" Syrg 3- 00:00: 00 Yes [id number] Use as directed [facility] Insulin Syringe-Nee dle U-100 1 mL 27 gauge x 1/2" Syrg 3- 00:00: 00 Yes [id number] Use as directed [facility] Insulin Syringe-Nee dle U-100 1 mL 27 gauge x 1/2" Syrg 3- 00:00: 00 Yes [id number] [facility] as [facility] [place], Disposable, (PHUC PEN NEEDLE) 32 gauge x 5/32" Nd 3 00:00: 00 Yes [id number] [facility] as directed [facility] [place], Disposable, (PHUC PEN NEEDLE) 32 gauge x 5/32" Ndle 3 00:00: 00 Yes [id number] [facility] as directed [facility] [place], Disposable, (PHUC PEN NEEDLE) 32 gauge x 5/32" Ndle 3 00:00: 00 Yes [id number] [facility] as [facility] [place], Disposable, (PHUC PEN NEEDLE) 32 gauge x 5/32" Nd 07-09 00:00: 00 Yes [id number] Use as directed [facility] aspirin 81 mg EC tablet 07-09 00:00: 00 08-25 00:00 :00 No [id number] 81mg Take 1 tablet by mouth daily. [facility] potassium chloride 10 mEq CR tablet 07-09 00:00: 00 08-23 00:00 :00 No [id number] 10meq Take 1 tablet by mouth every Thursday, and Thursday in the evening. [facility] lisinopril 10 mg tablet 07-09 00:00: 07-10 00:00 :00 No [id number] 10mg Take 1 tablet by mouth daily. [facility] simvastatin (ZOCOR) 40 mg tablet 07-09 00:00: 00 07-10 00:00 :00 No [id number] 40mg Take 1 tablet by mouth at bedtime. [facility] metFORMIN 1,000 mg tablet 07-09 00:00: 07-10 00:00 :00 No [id number] 1000mg Take 1 tablet by mouth 2 (two) times daily with meals. [facility] furosemide 20 mg tablet 07-09 00:00: 00 02-14 00:00 :00 No [id number] 20mg Take 1 tablet by mouth every Thursday, and Thursday in the evening. [facility] insulin NPH 100 unit/mL injection 07-09 00:00: 00 02-10 00:00 :00 No [id number] 35U inject 35 Units under the skin every morning and evening. [facility] potassium chloride 10 mEq CR tablet 04-13 00:00: 07-09 00:00 :00 No [id number] 10meq Take 1 tablet by mouth every Thursday, and Thursday in the evening. [facility] furosemide 20 mg tablet 04-13 00:00: 00 07-09 00:00 :00 No [id number] 20mg Take 1 tablet by mouth every Thursday, and Thursday in the evening. [facility] doxycycline hyclate 100 mg tablet 04-12 00:00: 00 07-09 00:00 :00 No [id number] 100mg Take 1 tablet by mouth 2 (two) times daily. [facility] diph,pertus (acel),teta nus (ADACEL) injection 0.5 mL 03-12 14:00: 00 03-13 01:59 :00 No .5mL 0.5 mL, Intramuscu lar, ONCE, 1 dose, Thu03/12/20 at 0900, Routine [facility] clindamycin 300 mg capsule 03-12 00:00: 00 03-23 04:59 :00 No [id number] 300mg Take 1 capsule by mouth 4 (four) times daily for 10 days. [facility] sildenafil 50 mg tablet 02-27 00:00: 00 02-14 00:00 :00 No [id number] 50mg Take 1 tablet by mouth as needed (Erectile dysfunctio n). Take 50mg x 1, about 30 mins - 4 hours prior to sexual activity. [facility] metFORMIN 1,000 mg tablet 01-18 00:00: 00 07-09 00:00 :00 No [id number] 1000mg Take 1 tablet by mouth 2 (two) times daily with meals. [facility] ondansetron (ZOFRAN (PF)) injection 4 mg 12-30 17:29: 59 Yes 4mg 4 mg, Slow IV Push, PRN, 1 dose, Starting Thu12/30/19 at 1129, Until Discontinu ed, Routine, Nausea and Vomiting (N/V), PACU [facility] water for irrigation irrigation solution 12-30 16:20: 00 Yes PRN, Starting Thu12/30/19 at 1020, Until Discontinu ed, Routine, Intra-op [facility] simethicone (GAS RELIEF (SIMETHICON E)) 40 mg/0.6 mL drops 12-30 16:19: 00 Yes PRN, Starting Thu12/30/19 at 1019, Until Discontinu ed, Routine, Intra-op [facility] NaCl 0.9% (NS) IV infusion 1,000 mL 12-30 13:45: 00 Yes 1000mL at 42 mL/hr, IV Infusion, CONTINUOUS , Starting Thu12/30/19 at 0745, Until Discontinu ed, Routine, DSU Pre-op [facility] peg-electro lyte soln 236-22.74-6 .74 -5.86 gram solution - 00:00: 00 07-01 00:00 :00 No Take as directed [facility] prednisoLON E acetate 1 % ophthalmic suspension drops 2018-11 00:00: 00 Yes [id number] 1[drp] Place 1 Drop in right eye 4 (four) times daily. [facility] ofloxacin (OCUFLOX) 0.3 % ophthalmic solution 2018-11 00:00: 00 Yes [id number] 1[drp] Place 1 Drop in right eye 3 (three) times daily. [facility] aspirin 81 mg EC tablet 2018-11 00:00: 00 07-09 00:00 :00 No [id number] 81mg Take 1 tablet by mouth daily. [facility] Insulin Roosevelt, Disposable, (PHUC PEN NEEDLE) 32 gauge x 5/32" Ndle 2018-11 00:00: 00 07-09 00:00 :00 No [id number] Use as directed [facility] lactobacill us comb no.10 (PROBIOTIC) 20 billion cell Cap 06-10 00:00: 00 07-09 00:00 :00 No [id number] 1{capsu le} Take 1 capsule by mouth 2 (two) times daily. [facility] simvastatin (ZOCOR) 40 mg tablet 05-30 00:00: 00 07-09 00:00 :00 No [id number] 40mg Take 1 tablet by mouth at bedtime. [facility] lisinopril 10 mg tablet 05-30 00:00: 00 07-09 00:00 :00 No [id number] 10mg Take 1 tablet by mouth daily. [facility] insulin NPH 100 unit/mL injection 05-30 00:00: 00 07-09 00:00 :00 No [id number] 35U inject 35 Units under the skin every morning and evening. [facility] metFORMIN 500 mg tablet 05-30 00:00: 00 01-18 00:00 :00 No [id number] 500mg Take 1 tablet by mouth 2 (two) times daily with meals. [facility] Immunizations Ordered Immunization Name Filled Immunization Name Date Status Comments Source TDAP 2024-04-03 00:00:00 Completed [facility] TDAP Unknown Completed [facility] TDAP Unknown Completed [facility] TDAP Unknown Completed [facility] TDAP Unknown Completed [facility] TDAP Unknown Completed [facility] TDAP Unknown Completed [facility] TDAP Unknown Completed [facility] TDAP Unknown Completed [facility] TDAP Unknown Completed [facility] TDAP Unknown Completed [facility] TDAP Unknown Completed [facility] TDAP Unknown Completed [facility] TDAP Unknown Completed [facility] TDAP Unknown Completed [facility] Vital Signs Vital Name Observation Time Observation Value Comments S ource Systolic blood pressure 2024-08-25 16:38:00 116 mm[Hg] [facility] Diastolic blood pressure 2024-08-25 16:38:00 66 mm[Hg] [facility] Heart rate 2024-08-25 16:38:00 67 /min [facility] Body temperature 2024-08-25 16:38:00 36.11 Ginny [facility] Respiratory rate 2024-08-25 16:38:00 13 /min [facility] Oxygen saturation in Arterial blood by Pulse oximetry 2024-08-25 16:38:00 99 /min [facility] Body weight 2024-08-25 09:00:00 90.6 kg [facility] BMI 2024-08-25 09:00:00 28.66 kg/m2 [facility] Body height 2024-08-23 20:19:00 177.8 cm [facility] Systolic blood pressure 2024-07-01 21:13:00 118 mm[Hg] [facility] Diastolic blood pressure 2024-07-01 21:13:00 65 mm[Hg] [facility] Heart rate 2024-07-01 21:13:00 63 /min [facility] Body temperature 2024-07-01 21:13:00 36.44 Ginny [facility] Respiratory rate 2024-07-01 21:13:00 16 /min [facility] Oxygen saturation in Arterial blood by Pulse oximetry 2024-07-01 21:13:00 99 /min [facility] Body weight 2024-07-01 08:26:00 89.994 kg [facility] BMI 2024-07-01 08:26:00 28.47 kg/m2 [facility] Body height 2024-06-23 21:39:00 177.8 cm [facility] Systolic blood pressure 2024-06-20 17:47:00 165 mm[Hg] [facility] Diastolic blood pressure 2024-06-20 17:47:00 83 mm[Hg] [facility] Heart rate 2024-06-20 17:47:00 81 /min [facility] Body temperature 2024-06-20 17:47:00 37 Ginny [facility] Respiratory rate 2024-06-20 17:47:00 16 /min [facility] Oxygen saturation in Arterial blood by Pulse oximetry 2024-06-20 17:47:00 99 /min [facility] Body height 2024-06-20 15:58:00 177.8 cm [facility] Body weight 2024-06-20 15:58:00 91.627 kg [facility] BMI 2024-06-20 15:58:00 28.98 kg/m2 [facility] Systolic blood pressure 2024-06-19 21:30:00 138 mm[Hg] [facility] Diastolic blood pressure 2024-06-19 21:30:00 71 mm[Hg] [facility] Heart rate 2024-06-19 21:30:00 78 /min [facility] Respiratory rate 2024-06-19 21:30:00 17 /min [facility] Oxygen saturation in Arterial blood by Pulse oximetry 2024-06-19 21:30:00 95 /min [facility] Body temperature 2024-06-19 17:34:00 36.72 Ginny [facility] Body height 2024-06-19 17:34:00 177.8 cm [facility] Body weight 2024-06-19 17:34:00 99.791 kg [facility] BMI 2024-06-19 17:34:00 31.57 kg/m2 [facility] Heart rate 2024-06-17 00:43:00 70 /min [facility] Respiratory rate 2024-06-17 00:43:00 17 /min [facility] Oxygen saturation in Arterial blood by Pulse oximetry 2024-06-17 00:43:00 97 /min [facility] Systolic blood pressure 2024-06-17 00:42:00 132 mm[Hg] [facility] Diastolic blood pressure 2024-06-17 00:42:00 76 mm[Hg] [facility] Body temperature 2024-06-17 00:42:00 36.44 Ginny [facility] Body height 2024-06-16 23:12:00 177.8 cm [facility] Body weight 2024-06-16 23:12:00 99.791 kg [facility] BMI 2024-06-16 23:12:00 31.57 kg/m2 [facility] Heart rate 2024-06-16 04:09:00 62 /min [facility] Body temperature 2024-06-16 04:09:00 36.83 Ginny [facility] Respiratory rate 2024-06-16 04:09:00 13 /min [facility] Oxygen saturation in Arterial blood by Pulse oximetry 2024-06-16 04:09:00 97 /min [facility] Systolic blood pressure 2024-06-16 04:00:00 157 mm[Hg] [facility] Diastolic blood pressure 2024-06-16 04:00:00 75 mm[Hg] [facility] Body height 2024-06-15 23:01:00 177.8 cm [facility] Body weight 2024-06-15 23:01:00 99.791 kg [facility] BMI 2024-06-15 23:01:00 31.57 kg/m2 [facility] Heart rate 2024-04-06 10:11:00 72 /min [facility] Body temperature 2024-04-06 10:11:00 36.89 Ginny [facility] Respiratory rate 2024-04-06 10:11:00 16 /min [facility] Oxygen saturation in Arterial blood by Pulse oximetry 2024-04-06 10:11:00 99 /min [facility] Systolic blood pressure 2024-04-06 10:00:00 130 mm[Hg] [facility] Diastolic blood pressure 2024-04-06 10:00:00 74 mm[Hg] [facility] Body height 2024-04-06 06:52:00 177.8 cm [facility] Body weight 2024-04-06 06:52:00 99.791 kg [facility] BMI 2024-04-06 06:52:00 31.57 kg/m2 [facility] Systolic blood pressure 2024-04-03 21:45:00 164 mm[Hg] [facility] Diastolic blood pressure 2024-04-03 21:45:00 85 mm[Hg] [facility] Heart rate 2024-04-03 21:45:00 88 /min [facility] Respiratory rate 2024-04-03 21:45:00 16 /min [facility] Oxygen saturation in Arterial blood by Pulse oximetry 2024-04-03 21:45:00 96 /min [facility] Body temperature 2024-04-03 14:41:00 36.5 Ginny [facility] Systolic blood pressure 2024-04-01 00:04:00 132 mm[Hg] [facility] Diastolic blood pressure 2024-04-01 00:04:00 73 mm[Hg] [facility] Heart rate 2024-04-01 00:04:00 76 /min [facility] Respiratory rate 2024-04-01 00:04:00 18 /min [facility] Oxygen saturation in Arterial blood by Pulse oximetry 2024-04-01 00:04:00 98 /min [facility] Body height 2024-03-31 23:15:00 177.8 cm [facility] Body temperature 2024-03-31 17:35:00 36.72 Ginny [facility] Body weight 2024-03-31 17:35:00 99.791 kg [facility] BMI 2024-03-31 17:35:00 31.57 kg/m2 [facility] Systolic blood pressure 2024-03-29 21:38:00 135 mm[Hg] [facility] Diastolic blood pressure 2024-03-29 21:38:00 74 mm[Hg] [facility] Heart rate 2024-03-29 21:38:00 66 /min [facility] Body temperature 2024-03-29 21:38:00 36.72 Ginny [facility] Respiratory rate 2024-03-29 21:38:00 18 /min [facility] Oxygen saturation in Arterial blood by Pulse oximetry 2024-03-29 21:38:00 99 /min [facility] Body weight 2024-03-29 19:47:00 99.791 kg [facility] BMI 2024-03-29 19:47:00 31.57 kg/m2 [facility] Systolic blood pressure 2024-03-22 21:30:00 175 mm[Hg] [facility] Diastolic blood pressure 2024-03-22 21:30:00 90 mm[Hg] [facility] Heart rate 2024-03-22 21:30:00 84 /min [facility] Respiratory rate 2024-03-22 21:30:00 16 /min [facility] Oxygen saturation in Arterial blood by Pulse oximetry 2024-03-22 21:30:00 100 /min [facility] Body temperature 2024-03-22 14:55:00 36.94 Ginny [facility] Systolic blood pressure 2024-03-12 04:00:00 155 mm[Hg] [facility] Diastolic blood pressure 2024-03-12 04:00:00 103 mm[Hg] [facility] Heart rate 2024-03-12 04:00:00 92 /min [facility] 2024-03-12 04:00:00 18 /min [facility] Oxygen saturation in Arterial blood by Pulse oximetry 2024-03-12 04:00:00 98 /min [facility] Body temperature 2024-03-12 01:17:00 37.33 Ginny [facility] Body height 2024-03-12 01:17:00 177.8 cm [facility] Body weight 2024-03-12 01:17:00 99.791 kg [facility] BMI 2024-03-12 01:17:00 31.57 kg/m2 [facility] Systolic blood pressure 2024-02-10 19:50:00 158 mm[Hg] [facility] Diastolic blood pressure 2024-02-10 19:50:00 87 mm[Hg] [facility] Heart rate 2024-02-10 19:50:00 86 /min [facility] Respiratory rate 2024-02-10 19:50:00 18 /min [facility] Oxygen saturation in Arterial blood by Pulse oximetry 2024-02-10 19:50:00 96 /min [facility] Body temperature 2024-02-10 16:57:00 36.72 Ginny [facility] Body height 2024-02-10 16:57:00 177.8 cm [facility] Body weight 2024-02-10 16:57:00 99.791 kg [facility] BMI 2024-02-10 16:57:00 31.57 kg/m2 [facility] Systolic blood pressure 2024-02-09 22:00:00 143 mm[Hg] [facility] Diastolic blood pressure 2024-02-09 22:00:00 76 mm[Hg] [facility] Heart rate 2024-02-09 22:00:00 83 /min [facility] Respiratory rate 2024-02-09 22:00:00 16 /min [facility] Oxygen saturation in Arterial blood by Pulse oximetry 2024-02-09 22:00:00 100 /min [facility] Body temperature 2024-02-09 19:02:00 35.94 Ginny [facility] Body height 2024-02-09 19:02:00 177.8 cm [facility] Body weight 2024-02-09 19:02:00 99.791 kg [facility] BMI 2024-02-09 19:02:00 31.57 kg/m2 [facility] Systolic blood pressure 2024-02-06 14:26:00 163 mm[Hg] [facility] Diastolic blood pressure 2024-02-06 14:26:00 77 mm[Hg] [facility] Heart rate 2024-02-06 14:26:00 71 /min [facility]ive [facility] Body temperature 2024-02-06 14:26:00 36.61 Ginny [facility] Respiratory rate 2024-02-06 14:26:00 16 /min [facility] Body height 2024-02-06 14:26:00 165.1 cm [facility] Body weight 2024-02-06 14:26:00 99.791 kg [facility] BMI 2024-02-06 14:26:00 36.61 kg/m2 [facility] Oxygen saturation in Arterial blood by Pulse oximetry 2024-02-06 14:26:00 98 /min [facility] Systolic blood pressure 2024-01-30 16:05:00 150 mm[Hg] [facility] Diastolic blood pressure 2024-01-30 16:05:00 89 mm[Hg] [facility] Heart rate 2024-01-30 16:05:00 71 /min [facility] Body temperature 2024-01-30 16:05:00 37 Ginny [facility] Respiratory rate 2024-01-30 16:05:00 18 /min [facility] Body height 2024-01-30 16:05:00 177.8 cm [facility] Body weight 2024-01-30 16:05:00 100.699 kg [facility] BMI 2024-01-30 16:05:00 31.85 kg/m2 [facility] Oxygen saturation in Arterial blood by Pulse oximetry 2024-01-30 16:05:00 99 /min [facility] Systolic blood pressure 2024-01-15 03:18:00 150 mm[Hg] [facility] Diastolic blood pressure 2024-01-15 03:18:00 75 mm[Hg] [facility] Heart rate 2024-01-15 03:18:00 79 /min [facility]ive [facility] Body temperature 2024-01-15 03:18:00 36.5 Ginny [facility] Respiratory rate 2024-01-15 03:18:00 18 /min [facility] Body height 2024-01-15 03:18:00 177.8 cm [facility] Body weight 2024-01-15 03:18:00 99.791 kg [facility] BMI 2024-01-15 03:18:00 31.57 kg/m2 [facility] Oxygen saturation in Arterial blood by Pulse oximetry 2024-01-15 03:18:00 98 /min [facility] Systolic blood pressure 2024-01-05 12:37:00 161 mm[Hg] [facility] Diastolic blood pressure 2024-01-05 12:37:00 76 mm[Hg] [facility] Heart rate 2024-01-05 12:37:00 76 /min [facility] Body temperature 2024-01-05 12:37:00 36.89 Ginny [facility] Respiratory rate 2024-01-05 12:37:00 18 /min [facility] Body height 2024-01-05 12:37:00 177.8 cm [facility] Body weight 2024-01-05 12:37:00 99.791 kg [facility] BMI 2024-01-05 12:37:00 31.57 kg/m2 [facility] Oxygen saturation in Arterial blood by Pulse oximetry 2024-01-05 12:37:00 96 /min [facility] Systolic blood pressure 2021-07-10 22:35:00 173 mm[Hg] [facility] Diastolic blood pressure 2021-07-10 22:35:00 71 mm[Hg] [facility] Heart rate 2021-07-10 22:35:00 50 /min [facility] Body height 2021-07-10 22:35:00 177.8 cm [facility] Body weight 2021-07-10 22:35:00 114.306 kg [facility] BMI 2021-07-10 22:35:00 36.16 kg/m2 [facility] Oxygen saturation in Arterial blood by Pulse oximetry 2021-07-10 22:35:00 99 /min [place] [facility] Systolic blood pressure 2021-07-10 15:12:00 173 mm[Hg] [place] [facility] Diastolic blood pressure 2021-07-10 15:12:00 71 mm[Hg] [place] [facility] Heart rate 2021-07-10 15:10:00 50 /min [facility] Body height 2021-07-10 15:10:00 177.8 cm [facility] Body weight 2021-07-10 15:10:00 114.306 kg [facility] BMI 2021-07-10 15:10:00 36.16 kg/m2 [facility] Oxygen saturation in Arterial blood by Pulse oximetry 2021-07-10 15:10:00 99 /min [place] [facility] Systolic blood pressure 2021-05-20 23:06:00 130 mm[Hg] [place] [facility] Diastolic blood pressure 2021-05-20 23:06:00 76 mm[Hg] [place] [facility] Heart rate 2021-05-20 23:05:00 67 /min [facility] Body temperature 2021-05-20 23:05:00 36.33 Ginny [facility] Respiratory rate 2021-05-20 23:05:00 18 /min [facility] Body height 2021-05-20 23:05:00 177.8 cm [facility] Body weight 2021-05-20 23:05:00 112.583 kg [facility] BMI 2021-05-20 23:05:00 35.61 kg/m2 [facility] Oxygen saturation in Arterial blood by Pulse oximetry 2021-05-20 23:05:00 97 /min [facility] Systolic blood pressure 2021-02-14 21:09:00 153 mm[Hg] [facility] Diastolic blood pressure 2021-02-14 21:09:00 76 mm[Hg] [facility] Heart rate 2021-02-14 21:09:00 58 /min [facility] Body temperature 2021-02-14 21:09:00 36.72 Ginny [facility] Respiratory rate 2021-02-14 21:09:00 18 /min [facility] Body weight 2021-02-14 21:09:00 115.667 kg [facility] BMI 2021-02-14 21:09:00 35.57 kg/m2 [facility] Oxygen saturation in Arterial blood by Pulse oximetry 2021-02-14 21:09:00 97 /min [facility] Systolic blood pressure 2020-04-12 14:51:00 126 mm[Hg] [facility] Diastolic blood pressure 2020-04-12 14:51:00 76 mm[Hg] [facility] Heart rate 2020-04-12 14:51:00 58 /min [facility] Body temperature 2020-04-12 14:51:00 36.72 Ginny [facility] Respiratory rate 2020-04-12 14:51:00 18 /min [facility] Body height 2020-04-12 14:51:00 180.3 cm [facility] Body weight 2020-04-12 14:51:00 113.399 kg [facility] BMI 2020-04-12 14:51:00 34.87 kg/m2 [facility] Oxygen saturation in Arterial blood by Pulse oximetry 2020-04-12 14:51:00 98 /min [facility] Systolic blood pressure 2020-03-12 13:30:00 115 mm[Hg] [facility] Diastolic blood pressure 2020-03-12 13:30:00 81 mm[Hg] [facility] Heart rate 2020-03-12 13:30:00 51 /min [facility] Respiratory rate 2020-03-12 13:30:00 20 /min [facility] Oxygen saturation in Arterial blood by Pulse oximetry 2020-03-12 13:30:00 97 /min [facility] Body temperature 2020-03-12 12:37:00 36.22 Ginny [facility] Body weight 2020-03-12 12:37:00 111.131 kg [facility] BMI 2020-03-12 12:37:00 34.17 kg/m2 [facility] Systolic blood pressure 2020-01-18 13:42:00 136 mm[Hg] [facility] Diastolic blood pressure 2020-01-18 13:42:00 73 mm[Hg] [facility] Heart rate 2020-01-18 13:42:00 52 /min [facility] Body temperature 2020-01-18 13:42:00 36.56 Ginny [facility] Respiratory rate 2020-01-18 13:42:00 18 /min [facility] Body height 2020-01-18 13:42:00 180.3 cm [facility] Body weight 2020-01-18 13:42:00 113.309 kg [facility] BMI 2020-01-18 13:42:00 34.84 kg/m2 [facility] Oxygen saturation in Arterial blood by Pulse oximetry 2020-01-18 13:42:00 96 /min [facility] Systolic blood pressure 2019-12-30 17:24:00 154 mm[Hg] [facility] Diastolic blood pressure 2019-12-30 17:24:00 79 mm[Hg] [facility] Heart rate 2019-12-30 17:24:00 60 /min [facility] Respiratory rate 2019-12-30 17:24:00 16 /min [facility] Oxygen saturation in Arterial blood by Pulse oximetry 2019-12-30 17:24:00 96 /min [facility] Body temperature 2019-12-30 16:55:00 36.39 Ginny [facility] Body height 2019-12-26 22:40:00 180.3 cm [facility] Body weight 2019-12-26 22:40:00 116.121 kg [facility] BMI 2019-12-26 22:40:00 35.72 kg/m2 [facility] Systolic blood pressure 2019-12-19 14:13:00 135 mm[Hg] [facility] Diastolic blood pressure 2019-12-19 14:13:00 72 mm[Hg] [facility] Heart rate 2019-12-19 14:11:00 56 /min [facility] Respiratory rate 2019-12-19 14:11:00 19 /min [facility] Body height 2019-12-19 14:11:00 180.3 cm [facility] Body weight 2019-12-19 14:11:00 117.935 kg [facility] BMI 2019-12-19 14:11:00 36.26 kg/m2 [facility] Oxygen saturation in Arterial blood by Pulse oximetry 2019-12-19 14:11:00 96 /min [facility] Systolic blood pressure 2024-06-28 16:55:00 117 mm[Hg] [facility] Diastolic blood pressure 2024-06-28 16:55:00 57 mm[Hg] [facility] Heart rate 2024-06-28 16:55:00 65 /min [facility] Body temperature 2024-06-28 16:55:00 36.5 Ginny [facility] Respiratory rate 2024-06-28 16:55:00 18 /min [facility] Oxygen saturation in Arterial blood by Pulse oximetry 2024-06-28 16:55:00 98 /min [facility] Body weight 2024-06-28 09:42:00 89.495 kg [facility] BMI 2024-06-28 09:42:00 28.31 kg/m2 [facility] Body height 2024-06-23 21:39:00 177.8 cm [facility] Procedures Procedure Date / Time Performed Performing Clinician Source POCT GLUCOSE (AUTOMATED) 2024-08-25 16:36:00 Valente Garcia [facility] BASIC METABOLIC PANEL (NA, K, CL, CO2, GLUCOSE, BUN, CREATININE, CA) 2024-08-25 09:18:00 Florentin Palacio [facility] CBC WITHOUT DIFF 2024-08-25 09:18:00 Florentin Palacio [facility] POCT GLUCOSE (AUTOMATED) 2024-08-25 01:26:00 Valente Garcia [facility] POCT GLUCOSE (AUTOMATED) 2024-08-24 23:31:00 Valente Garcia [facility] POCT GLUCOSE (AUTOMATED) 2024-08-24 21:24:00 Valente Garcia [facility] POCT GLUCOSE (AUTOMATED) 2024-08-24 19:28:00 Valente Garcia [facility] POCT GLUCOSE (AUTOMATED) 2024-08-24 18:31:00 Tru [facility] POCT GLUCOSE (AUTOMATED) 2024-08-24 17:43:00 Tru [facility] POCT GLUCOSE (AUTOMATED) 2024-08-24 16:28:00 Valente Garcia [facility] POCT GLUCOSE (AUTOMATED) 2024-08-24 15:24:00 Tru [facility] POCT GLUCOSE (AUTOMATED) 2024-08-24 14:24:00 Valente Garcia [facility] POCT GLUCOSE (AUTOMATED) 2024-08-24 13:31:00 Tru [facility] POCT GLUCOSE (AUTOMATED) 2024-08-24 12:29:00 Tru [facility] POCT GLUCOSE (AUTOMATED) 2024-08-24 11:31:00 Valente Garcia [facility] POCT GLUCOSE (AUTOMATED) 2024-08-24 10:32:00 Valente Garcia [facility] POCT GLUCOSE (AUTOMATED) 2024-08-24 09:20:00 Tru [facility] BASIC METABOLIC PANEL (NA, K, CL, CO2, GLUCOSE, BUN, CREATININE, CA) 2024-08-24 09:10:[address] [facility] CBC WITH DIFF 2024-08-24 09:10:00 Marguerite Martell [facility] N-TERMINAL PRO-BNP 2024-08-24 09:10:00 Marguerite Martell [facility] POCT GLUCOSE (AUTOMATED) 2024-08-24 08:31:00 Valente Garcia [facility] POCT GLUCOSE (AUTOMATED) 2024-08-24 07:40:00 Valente Garcia [facility] POCT GLUCOSE (AUTOMATED) 2024-08-24 06:34:00 Valente Garcia [facility] POCT GLUCOSE (AUTOMATED) 2024-08-24 05:18:00 Valente Garcia [facility] POCT GLUCOSE (AUTOMATED) 2024-08-24 04:24:00 Valente Garcia [facility] POCT GLUCOSE (AUTOMATED) 2024-08-24 03:28:00 Valente Garcia [facility] POCT GLUCOSE (AUTOMATED) 2024-08-24 02:32:00 Valente Garcia [facility] POCT GLUCOSE (AUTOMATED) 2024-08-24 01:42:00 Valente Garcia [facility] POCT GLUCOSE (AUTOMATED) 2024-08-24 00:25:00 Valente Garcia [facility] POCT GLUCOSE (AUTOMATED) 2024-08-23 23:39:00 Valente Garcia [facility] POCT GLUCOSE (AUTOMATED) 2024-08-23 23:17:00 Valente Garcia [facility] POCT GLUCOSE (AUTOMATED) 2024-08-23 22:16:00 Valente Garcia [facility] POCT GLUCOSE (AUTOMATED) 2024-08-23 21:23:00 Valente Garcia [facility] MRSA / MSSA SCREEN BY [facility] 2024-08-23 20:57:00 Tru [facility] POCT GLUCOSE (AUTOMATED) 2024-08-23 20:17:00 Valente Garcia [facility] POCT GLUCOSE (AUTOMATED) 2024-08-23 19:29:00 Valente Garcia [facility] POCT GLUCOSE (AUTOMATED) 2024-08-23 16:59:00 Valente Garcia [facility] POCT GLUCOSE(AGE >30DAYS) 2024-08-23 16:05:00 Raj Garcia [facility] POCT GLUCOSE(AGE >30DAYS) 2024-08-23 15:55:00 [facility] POCT GLUCOSE (AUTOMATED) 2024-08-23 15:50:00 Willian Paul [facility] POCT GLUCOSE (AUTOMATED) 2024-08-23 14:57:00 Willian Paul [facility] POCT GLUCOSE (AUTOMATED) 2024-08-23 14:36:00 Willian Paul [facility] VBG+VCOOX+NA+K+GLU+CA2+ 2024-08-23 14:33:00 , Roma [facility] LACTIC ACID WHOLE BLOOD 2024-08-23 14:33:00 Roma Paul [facility] COMP. METABOLIC PANEL (75725) 2024-08-23 14:32:00 [facility] CBC WITH DIFF 2024-08-23 14:32:00 Singer [facility] N-TERMINAL PRO-BNP 2024-08-23 14:32:00 Marguerite Martell [facility] POCT GLUCOSE (AUTOMATED) 2024-08-23 14:12:00 Doc tor Unassigned, [place] [facility] POCT GLUCOSE (AUTOMATED) 2024-07-01 21:20[facility]00 [facility] 2024-07-01 17:39:00 Valente Garcia [facility] POCT GLUCOSE (AUTOMATED) 2024-07-01 13:13:00 Valente Garcia [facility] BASIC METABOLIC PANEL (NA, K, CL, CO2, GLUCOSE, BUN, CREATININE, CA) 2024-07-01 08:40:00 Nohemy Askew [facility] CBC WITH DIFF 2024-07-01 08:40:00 Nohemy Askew [facility] POCT GLUCOSE (AUTOMATED) 2024-07-01 00:47:00 [facility] 2024-06-30 21:23:00 Valente Garcia [facility] POCT GLUCOSE (AUTOMATED) 2024-06-30 16:14:00 Valente Garcia [facility] POCT GLUCOSE (AUTOMATED) 2024-06-30 12:51:00 Valente Garcia [facility] BASIC METABOLIC PANEL (NA, K, CL, CO2, GLUCOSE, BUN, CREATININE, CA) 2024-06-30 09:[facility] 2024-06-30 09:22:00 Jayshree [facility] POCT GLUCOSE (AUTOMATED) 2024-06-30 02:02:00 Valente Garcia [facility] POCT GLUCOSE (AUTOMATED) 2024-06-29 21:11:00 Valente Garcia [facility] POCT GLUCOSE (AUTOMATED) 2024-06-29 16:39:00 Valente Garcia [facility] POCT GLUCOSE (AUTOMATED) 2024-06-29 12:39:00 Valente Garcia [facility] BASIC METABOLIC PANEL (NA, K, CL, CO2, GLUCOSE, BUN, CREATININE, CA) 2024-06-29 08:24:00 Nohemy Askew [facility] CBC WITH DIFF 2024-06-29 08:24:00 Nohemy Askew [facility] POCT GLUCOSE (AUTOMATED) 2024-06-29 02:40:00 Valente Garcia [facility] POCT GLUCOSE (AUTOMATED) 2024-06-28 22:49:00 Valente Garcia [facility] POCT GLUCOSE (AUTOMATED) 2024-06-28 21:56:00 Valente Garcia [facility] POCT GLUCOSE (AUTOMATED) 2024-06-28 16:57:00 Valente Garcia [facility] POCT GLUCOSE (AUTOMATED) 2024-06-28 16:57:00 Valente Garcia [facility] POCT GLUCOSE (AUTOMATED) 2024-06-28 13:02:00 Valente Garcia [facility] POCT GLUCOSE (AUTOMATED) 2024-06-28 13:02:00 Valente Garcia [facility] BASIC METABOLIC PANEL (NA, K, CL, CO2, GLUCOSE, BUN, CREATININE, CA) 2024-06-28 09:43:00 Kimmie Sandra [facility] MAGNESIUM 2024-06-28 09:43:00 Kimmie [facility] WITH DIFF 2024-06-28 09:43:00 Kimmie Sandra [facility] VANCOMYCIN RANDOM LEVEL 2024-06-28 09:43:00 Diamond Marroquin [facility] MAGNESIUM 2024-06-28 09:43:00 Kimmie Sandra [facility] BASIC METABOLIC PANEL (NA, K, CL, CO2, GLUCOSE, BUN, CREATININE, CA) 2024-06-28 09:43:00 Kimmie Sandra [facility] VANCOMYCIN RANDOM LEVEL 2024-06-28 09:43:00 Diamond Marroquin [facility] CBC WITH DIFF 2024-06-28 09:43:00 Kimmie Sandra [facility] POCT GLUCOSE (AUTOMATED) 2024-06-28 05:07:00 Valente Garcia [facility] POCT GLUCOSE (AUTOMATED) 2024-06-28 05:07:00 Valente Garcia [facility] POCT GLUCOSE (AUTOMATED) 2024-06-28 02:10:00 Valente Garcia [facility] POCT GLUCOSE (AUTOMATED) 2024-06-28 02:10:00 Valente Garcia [facility] POCT GLUCOSE (AUTOMATED) 2024-06-27 21:59:00 [facility] POCT GLUCOSE (AUTOMATED) 2024-06-27 21:59:00 [facility] POCT GLUCOSE (AUTOMATED) 2024-06-27 19:47:00 Valente Garcia [facility] POCT GLUCOSE (AUTOMATED) 2024-06-27 19:47:00 [facility] XR CHEST 1 VW 2024-06-27 19:02:32 Kimmie Sandra [facility] XR CHEST 1 VW 2024-06-27 19:02:32 Kimmie Sandra [facility] TRANSESOPHAGEAL ECHO (RAYMOND) COMPLETE W/ DOPPLER AND COLOR 2024-06-27 17:29:00 [facility] (RAYMOND) COMPLETE W/ DOPPLER AND COLOR 2024-06-27 17:29:00 Frank Quiroz [facility] POCT GLUCOSE (AUTOMATED) 2024-06-27 16:41:00 Valente Garcia [facility] POCT GLUCOSE (AUTOMATED) 2024-06-27 16:41:00 Valente Garcia [facility] POCT GLUCOSE (AUTOMATED) 2024-06-27 14:13:00 Valente Garcia [facility] POCT GLUCOSE (AUTOMATED) 2024-06-27 14:13:00 Valente Garcia [facility] POCT GLUCOSE (AUTOMATED) 2024-06-27 13:26:00 Valente Garcia [facility] POCT GLUCOSE (AUTOMATED) 2024-06-27 13:26:00 Valente Garcia [facility] BASIC METABOLIC PANEL (NA, K, CL, CO2, GLUCOSE, BUN, CREATININE, CA) 2024-06-27 09:41:00 Kimmie Sandra [facility] MAGNESIUM 2024-06-27 09:41:00 Kimmie Sandra [facility] CBC WITH DIFF 2024-06-27 09:41:00 Kimmie Sandra [facility] MAGNESIUM 2024-06-27 09:41:00 Kimmie Sandra [facility] BASIC METABOLIC PANEL (NA, K, CL, CO2, GLUCOSE, BUN, CREATININE, CA) 2024-06-27 09:41:00 Kimmie Sandra [facility] CBC WITH DIFF 2024-06-27 09:41:00 Kmimie Sandra [facility] POCT GLUCOSE (AUTOMATED) 2024-06-27 01:37:00 Valente Garcia [facility] POCT GLUCOSE (AUTOMATED) 2024-06-27 01:37:00 Valente Garcia [facility] POCT GLUCOSE (AUTOMATED) 2024-06-26 21:58:00 Valente Garcia [facility] POCT GLUCOSE (AUTOMATED) 2024-06-26 21:58:00 Valente Garcia [facility] POCT GLUCOSE (AUTOMATED) 2024-06-26 17:25:00 Valente Garcia [facility] POCT GLUCOSE (AUTOMATED) 2024-06-26 17:25:00 Valente Garcia [facility] POCT GLUCOSE (AUTOMATED) 2024-06-26 13:17:00 Valente Garcia [facility] POCT GLUCOSE (AUTOMATED) 2024-06-26 13:17:00 Valente Garcia [facility] BASIC METABOLIC PANEL (NA, K, CL, CO2, GLUCOSE, BUN, CREATININE, CA) 2024-06-26 09:49:00 [facility] 2024-06-26 09:49:00 Kimmie Sandra [facility] CBC WITH DIFF 2024-06-26 09:49[facility]00 [facility]24-06-26 09:49:00 Kimmie Sandra [facility] BASIC METABOLIC PANEL (NA, K, CL, CO2, GLUCOSE, BUN, CREATININE, CA) 2024-06-26 09:49:00 Boaz [facility] CBC WITH DIFF 2024-06-26 09:49:00 Kimmie Sandra [facility] POCT GLUCOSE (AUTOMATED) 2024-06-26 02:29:00 Valente Garcia [facility] POCT GLUCOSE (AUTOMATED) 2024-06-26 02:29:00 Valente Garcia [facility] POCT GLUCOSE (AUTOMATED) 2024-06-25 21:45:00 Valente Garcia [facility] POCT GLUCOSE (AUTOMATED) 2024-06-25 21:45:00 Valente Garcia [facility] POCT GLUCOSE (AUTOMATED) 2024-06-25 16:54:00 Valente Garcia [facility] POCT GLUCOSE (AUTOMATED) 2024-06-25 16:54:00 Valente Garcia [facility] POCT GLUCOSE (AUTOMATED) 2024-06-25 13:20:00 Valente Garcia [facility] POCT GLUCOSE (AUTOMATED) 2024-06-25 13:20:00 Valente Garcia [facility] VANCOMYCIN RANDOM LEVEL 2024-06-25 09:59:00 Gary Garcia [facility] VANCOMYCIN RANDOM LEVEL 2024-06-25 09:59:00 Gary Garcia [facility] POCT GLUCOSE (AUTOMATED) 2024-06-25 00:57:00 Valente Garcia [facility] POCT GLUCOSE (AUTOMATED) 2024-06-25 00:57:00 Valente Garcia [facility] POCT GLUCOSE (AUTOMATED) 2024-06-24 22:07:00 Valente Garcia [facility] POCT GLUCOSE (AUTOMATED) 2024-06-24 22:07:00 Valente Garcia [facility] POCT GLUCOSE (AUTOMATED) 2024-06-24 17:08:00 Valente Garcia [facility] POCT GLUCOSE (AUTOMATED) 2024-06-24 17:08:00 Valente Garcia [facility] BLOOD CULTURE SCREEN 2024-06-24 16:27:00 Sybil Sandra [facility] BLOOD CULTURE SCREEN 2024-06-24 16:27:00 Sybil Sandra [facility] CAROTID DUPLEX BILATERAL - BY VASCULAR LAB 2024-06-24 13:42:48 Alina Edouard [facility] CAROTID DUPLEX BILATERAL - BY VASCULAR LAB 2024-06-24 13:42:48 Alina Edouard [facility] POCT GLUCOSE (AUTOMATED) 2024-06-24 13:25:00 Valente Garcia [facility] POCT GLUCOSE (AUTOMATED) 2024-06-24 13:25:00 Valente Garcia [facility] POCT GLUCOSE (AUTOMATED) 2024-06-24 00:52:00 Valente Garcia [facility] POCT GLUCOSE (AUTOMATED) 2024-06-24 00:52:00 Valente Garcia [facility] AMMONIA, PLASMA 2024-06-23 23:41:00 Raj Garcia [facility] AMMONIA, PLASMA 2024-06-23 23:41:00 Raj Garcia [facility] ACUTE CARE ARTERIAL BLOOD GAS 2024-06-23 22:43:00 Raj Garcia [facility] ACUTE CARE ARTERIAL BLOOD GAS 2024-06-23 22:43:00 Raj Garcia [facility] POCT GLUCOSE (AUTOMATED) 2024-06-23 22:03:00 Valente Garcia [facility] POCT GLUCOSE (AUTOMATED) 2024-06-23 22:03:00 Valente Garcia [facility] MAGNESIUM 2024-06-23 21:04:00 Raj Garcia [facility] TROPONIN I 2024-06-23 21:04:00 Alina EdouardHNeri U [facility] LIPID PANEL (47112)(TOTAL CHOLESTEROL, TRIGLYCERIDES, HDL) 2024-06-23 21:04:00 Alina Edouard [facility] MAGNESIUM 2024-06-23 21:04:00 Raj Garcia [facility] acute hospital TROPONIN I 2024-06-23 21:04:00 Edouard, Sendil K.HNeri U [facility] LIPID PANEL ([id number])(TOTAL CHOLESTEROL, TRIGLYCERIDES, HDL) 2024-06-23 21:04:00 Alina Edouard.HNeri [facility] TRANSTHORACIC ECHO (TTE) COMPLETE 2024-06-23 20:12:00 Raj Garcia [facility] TRANSTHORACIC ECHO (TTE) COMPLETE 2024-06-23 20:12:00 Raj Garcia [facility] CT HEAD WO CONTRAST 2024-06-23 17:47:00 Juno Hwang [facility] CT CERVICAL SPINE WO CONTRAST 2024-06-23 17:47:00 Juno Hwang [facility] CT CERVICAL SPINE WO CONTRAST 2024-06-23 17:47:00 Juno Hwang [facility] CT HEAD WO CONTRAST 2024-06-23 17:47:00 Juno Hwang [facility] CBC WITH DIFF 2024-06-23 17:07:00 Juno Hwang [facility] COMP. METABOLIC PANEL ([id number]) 2024-06-23 17:07:00 Juno Hwang [facility] TROPONIN I 2024-06-23 17:07:00 Juno Hwang [facility] N-TERMINAL PRO-BNP 2024-06-23 17:07:00 Juno Hwang [facility] URINALYSIS 2024-06-23 17:07:00 Juno Hwang [facility] PROTHROMBIN TIME / INR 2024-06-23 17:07:00 Juno Hwang [facility] ACTIVATED PARTIAL THRMPLAS NILDA 2024-06-23 17:07:00 Juno Hwang [facility] LACTIC ACID WHOLE BLOOD 2024-06-23 17:07:00 Juno Hwang Carmen [facility] GLYCOSYLATED HEMOGLOBIN (A1C) 2024-06-23 17:07:00 Raj Garcia [facility] TROPONIN I 2024-06-23 17:07:00 Juno Hwang [facility] COMP. METABOLIC PANEL ([id number]) 2024-06-23 17:07:00 Juno Hwang Carmen [facility] CBC WITH DIFF 2024-06-23 17:07:00 Juno Hwang [facility] GLYCOSYLATED HEMOGLOBIN (A1C) 2024-06-23 17:07:00 Raj Garcia [facility] PROTHROMBIN TIME / INR 2024-06-23 17:07:00 Juno Hwang [facility] ACTIVATED PARTIAL THRMPLAS NILDA 2024-06-23 17:07:00 Juno Hwang [facility] URINALYSIS 2024-06-23 17:07:00 Juno Hwang [facility] N-TERMINAL PRO-BNP 2024-06-23 17:07:00 Juno Hwang [facility] LACTIC ACID WHOLE BLOOD 2024-06-23 17:07:00 Juno Hwang [facility] POCT GLUCOSE (AUTOMATED) 2024-06-19 21:58:00 Juno Hwang Carmen [facility] POCT GLUCOSE (AUTOMATED) 2024-06-19 21:58:00 Juno Hwang [facility] POCT GLUCOSE (AUTOMATED) 2024-06-19 21:28:00 Juno Hwang [facility] POCT GLUCOSE (AUTOMATED) 2024-06-19 21:28:00 Juno Hwang [facility] XR CHEST 1 VW 2024-06-19 19:23:33 Juno Hwang [facility] XR CHEST 1 VW 2024-06-19 19:23:33 Juno Hwang [facility] LACTIC ACID WHOLE BLOOD 2024-06-19 19:13:00 Juno Hwang [facility] LACTIC ACID WHOLE BLOOD 2024-06-19 19:13:00 Juno Hwang [facility] URINALYSIS 2024-06-19 19:12:00 Juno Hwang [facility] URINALYSIS 2024-06-19 19:12:00 Juno Hwang [facility] URINE CULTURE 2024-06-19 19:12:00 Juno Hwang [facility] BLOOD CULTURE SCREEN 2024-06-19 19:09:00 Juno Hwang [facility] COMP. METABOLIC PANEL ([id number]) 2024-06-19 19:09:00 Juno Hwang [facility] CBC WITH DIFF 2024-06-19 19:09:00 Juno Hwang [facility] N-TERMINAL PRO-BNP 2024-06-19 19:09:00 Juno Hwang Carmen [facility] CBC WITH DIFF 2024-06-19 19:09:00 Juno Hwang [facility] COMP. METABOLIC PANEL ([id number]) 2024-06-19 19:09:00 Juno Hwang [facility] N-TERMINAL PRO-BNP 2024-06-19 19:09:00 Juno Hwang [facility] BLOOD CULTURE SCREEN 2024-06-19 19:09:00 Juno Hwang [facility] BLOOD CULTURE WORKUP 2024-06-19 19:09:00 Juno Hwang [facility] BLOOD CULTURE WORKUP 2024-06-19 19:09:00 Juno Hwang [facility] GRAM POSITIVE BLOOD PATHOGENS DNA PROBE-ANAEROBIC 2024-06-19 19:09:00 Juno Hwang [facility] CT HEAD WO CONTRAST 2024-06-17 00:27:39 Vicente Caldera [facility] CT HEAD WO CONTRAST 2024-06-17 00:27:39 Vicente Caldera [facility] DUPLEX VENOUS LEG RIGHT - BY VASCULAR LAB 2024-06-16 03:05:37 Zo Green [facility] DUPLEX VENOUS LEG RIGHT - BY VASCULAR LAB 2024-06-16 03:05:37 Zo Green [facility] COMP. METABOLIC PANEL ([id number]) 2024-06-16 00:15:00 Zo Green [facility] CBC WITH DIFF 2024-06-16 00:15:00 Zo Green [facility] D-DIMER 2024-06-16 00:15:00 Zo Green [facility] LACTIC ACID WHOLE BLOOD 2024-06-16 00:15:00 Zo Green [facility] CBC WITH DIFF 2024-06-16 00:15:00 Zo Green [facility] COMP. METABOLIC PANEL ([id number]) 2024-06-16 00:15:00 Zo Green [facility] LACTIC ACID WHOLE BLOOD 2024-06-16 00:15:00 Zo Green [facility] D-DIMER 2024-06-16 00:15:00 Zo Green [facility] CT HEAD WO CONTRAST 2024-06-15 23:47:08 Deon Green [facility] CT HEAD WO CONTRAST 2024-06-15 23:47:08 Deon Green [facility] POCT GLUCOSE (AUTOMATED) 2024-04-06 10:11:00 [facility] 2024-04-06 10:11:00 Minerva [facility] POCT GLUCOSE (AUTOMATED) 2024-04-06 09:34:00 Minerva [facility] POCT GLUCOSE (AUTOMATED) 2024-04-06 09:34:00 Minerva [facility] POCT GLUCOSE (AUTOMATED) 2024-04-06 08:30:00 Minerva [facility] POCT GLUCOSE (AUTOMATED) 2024-04-06 08:30:00 Minerva [facility] POCT GLUCOSE (AUTOMATED) 2024-04-06 07:57:00 Minerva, [facility] POCT GLUCOSE (AUTOMATED) 2024-04-06 07:57:00 Minerva, [facility] POCT GLUCOSE (AUTOMATED) 2024-04-06 07:34:00 Minerva [facility] POCT GLUCOSE (AUTOMATED) 2024-04-06 07:34:00 Minerva, [facility] MAGNESIUM 2024-04-06 06:56:00 Minerva [facility] COMP. METABOLIC PANEL ([id number]) 2024-04-06 06:56:00 [facility] 2024-04-06 06:56:00 Mulugeta Palma [facility] URINALYSIS 2024-04-06 06:56:00 Minerva [facility] CBC WITH DIFF 2024-04-06 06:56:00 MinervaMulugeta olivarez [facility] COMP. METABOLIC PANEL ([id number]) 2024-04-06 06:56:00 Minerva [facility] MAGNESIUM 2024-04-06 06:56:00 Minerva [facility] URINALYSIS 2024-04-06 06:56:00 Minerva [facility] POCT GLUCOSE (AUTOMATED) 2024-04-06 06:44:00 [facility] ([facility]OMATED) 2024-04-06 06:44:00 Mulugeta Palma [facility] EKG-12 LEAD 2024-04-03 21:51:36 Danya [facility] EKG-12 LEAD 2024-04-03 21:51:36 Danya [facility] ACUTE CARE ARTERIAL BLOOD GAS 2024-04-03 19:07:00 Danya [facility] ACUTE CARE ARTERIAL BLOOD GAS 2024-04-03 19:07:00 Danya [facility] AMMONIA, PLASMA 2024-04-03 18:53:00 Danya Nando [facility] AMMONIA, PLASMA 2024-04-03 18:53:00 Danya [facility] URINALYSIS 2024-04-03 17:52:00 Danya [facility] URINE DRUG (IMMUNOASSAY) - COMPREHENSIVE DRUG SCREEN W/O REFLEX 2024-04-03 17:52:00 Danya [facility] URINALYSIS 2024-04-03 17:52:00 Danya [facility] URINE DRUG (IMMUNOASSAY) - COMPREHENSIVE DRUG SCREEN W/O REFLEX 2024-04-03 17:52:00 Danya [facility] XR CHEST 1 VW 2024-04-03 16:27:00 Nando Hagan [facility] XR FOOT 3+ VW RIGHT 2024-04-03 16:27:00 Darwin Hagan [facility] XR CHEST 1 VW 2024-04-03 16:27:00 Nando Hagan [facility] XR FOOT 3+ VW RIGHT 2024-04-03 16:27:00 Darwin Hagan [facility] LACTIC ACID WHOLE BLOOD 2024-04-03 15:53:00 Ronnie Hagan [facility] LACTIC ACID WHOLE BLOOD 2024-04-03 15:53:00 Ronnie Hagan [facility] PHOSPHORUS 2024-04-03 15:52:00 Danya [facility] CREATINE KINASE 2024-04-03 15:52:00 Danya Nando [facility] MAGNESIUM 2024-04-03 15:52:00 Danya [facility] TROPONIN I 2024-04-03 15:52:00 Danya [facility] COMP. METABOLIC PANEL ([id number]) 2024-04-03 15:52:00 Danya [facility] ETHANOL 2024-04-03 15:52:00 Danya [facility] CBC WITH DIFF 2024-04-03 15:52:00 Danya [facility] GALV ONLY - INFLUENZA A B RSV PCR 2024-04-03 15:52:00 Danya [facility] N-TERMINAL PRO-BNP 2024-04-03 15:52:00 Danya [facility] COVID-19 (ID NOW RAPID TESTING) 2024-04-03 15:52:00 Danya [facility] COVID-19 (ID NOW RAPID TESTING) 2024-04-03 15:52:00 Danya [facility] INFLUENZA A/B RSV COVID NAAT 2024-04-03 15:52:00 Danya [facility] CBC WITH DIFF 2024-04-03 15:52:00 Danya [facility] ETHANOL 2024-04-03 15:52:00 Danya [facility] COMP. METABOLIC PANEL ([id number]) 2024-04-03 15:52:00 Danya [facility] TROPONIN I 2024-04-03 15:52:00 Danya [facility] N-TERMINAL PRO-BNP 2024-04-03 15:52:00 Danya [facility] CREATINE KINASE 2024-04-03 15:52:00 Nando Hagan [facility] MAGNESIUM 2024-04-03 15:52:00 Danya [facility] PHOSPHORUS 2024-04-03 15:52:00 Danya [facility] LAB ONLY COVID INTERPRETATION 2024-04-03 15:52:00 Danya [facility] POCT GLUCOSE(AGE >30DAYS) 2024-04-03 15:46:00 Danya [facility] POCT GLUCOSE(AGE >30DAYS) 2024-04-03 15:46:00 Danya [facility] POCT GLUCOSE (AUTOMATED) 2024-04-03 15:43:00 Danya [facility] POCT GLUCOSE (AUTOMATED) 2024-04-03 15:43:[address] [facility] [address] CERVICAL SPINE WO CONTRAST 2024-04-03 15:38:[address] [facility] [address] HEAD WO CONTRAST 2024-04-03 15:38:07 Danya [facility] CT HEAD WO CONTRAST 2024-04-03 15:38:07 Danya [facility] CT CERVICAL SPINE WO CONTRAST 2024-04-03 15:38:07 [facility] POCT GLUCOSE (AUTOMATED) 2024-04-01 00:04:00 Racheal Tee [facility] POCT GLUCOSE (AUTOMATED) 2024-04-01 00:04:00 Racheal Tee [facility] POCT GLUCOSE (AUTOMATED) 2024-03-31 [facility]:19[facility] 2024-03-31 23:19:00 Racheal Tee [facility] COMP. METABOLIC PANEL ([id number]) 2024-03-31 19:37:00 Johnny Tee [facility] CBC WITH DIFF 2024-03-31 19:37:00 Johnny Tee [facility] acute hospital EXTRA TUBE LT. BLUE 2024-03-31 19:37:00 Johnny Tee [facility] CBC WITH DIFF 2024-03-31 19:37:00 Johnny Tee [facility] COMP. METABOLIC PANEL ([id number]) 2024-03-31 19:37:00 Johnny Tee [facility] EXTRA TUBE LT. BLUE 2024-03-31 19:37:00 Johnny Tee [facility] CT CERVICAL SPINE WO CONTRAST 2024-03-31 19:14:18 Johnny Tee [facility] CT HEAD WO CONTRAST 2024-03-31 19:14:18 Johnny Tee [facility] CT HEAD WO CONTRAST 2024-03-31 19:14:18 Johnny Tee [facility] CT CERVICAL SPINE WO CONTRAST 2024-03-31 19:14:18 Johnny Tee [facility] XR KNEE 3 VW RIGHT 2024-03-29 22:12:44 Kvng Frank [facility] XR LUMBAR SPINE 2 VW 2024-03-29 22:12:44 Kvng Frank [facility] XR KNEE 3 VW RIGHT 2024-03-29 22:12:44 Kvng Frank [facility] EKG-12 LEAD 2024-03-22 21:31:10 Libby Fernandez [facility] URINALYSIS 2024-03-22 17:07:00 Libby Fernandez [facility] EXTRA TUBE URINE CULTURE 2024-03-22 17:07:00 Baljit Gayle [facility] XR CHEST 2 VW 2024-03-22 16:13:07 Libby Fernandez [facility] CREATINE KINASE 2024-03-22 15:46:00 Libby Fernandez [facility] TROPONIN I 2024-03-22 15:46:00 Libby Fernandez [facility] HEPATIC FUNCTION PANEL ([id number]) (ALB,T.PRO,BILI T,BU/BC,ALT,AST,ALK PHOS) 2024-03-22 15:46:00 Libby Fernandez [facility] BASIC METABOLIC PANEL (NA, K, CL, CO2, GLUCOSE, BUN, CREATININE, CA) 2024-03-22 15:46:00 Libby Fernandez [facility] CBC WITH DIFF 2024-03-22 15:46:00 Libby Fernandez [facility] GLYCOSYLATED HEMOGLOBIN (A1C) 2024-03-22 15:46:00 Baljit Gayle [facility] N-TERMINAL PRO-BNP 2024-03-22 15:46:00 Libby Martinze [facility] EXTRA TUBE LT. BLUE 2024-03-22 15:46:00 Baljit Gayle [facility] POCT GLUCOSE (AUTOMATED) 2024-03-12 04:41:00 VeniceYoav walker [facility] POCT GLUCOSE (AUTOMATED) 2024-03-12 03:45:00 VeniceYoav walker [facility] POCT GLUCOSE (AUTOMATED) 2024-03-12 02:29:00 Yoav Millard [facility] CREATINE KINASE 2024-03-12 01:42:00 Dl Millard [facility] TROPONIN I 2024-03-12 01:42:00 Dl Millard [facility] COMP. METABOLIC PANEL ([id number]) 2024-03-12 01:42:00 Dl Millard [facility] CBC WITH DIFF 2024-03-12 01:42:00 Dl Millard [facility] COMP. METABOLIC PANEL ([id number]) 2024-02-10 17:52:00 Singer [facility] CBC WITH DIFF 2024-02-10 17:52:00 Singer [facility] URINALYSIS 2024-02-09 21:03:00 Tara [facility] HEAD WO CONTRAST 2024-02-09 20:02:00 Tara Ireland [facility] URINALYSIS 2024-02-06 15:15:00 Destiny Muller [facility] XR LUMBAR SPINE 3 VW 2024-02-06 15:00:46 Rolly Muller [facility] CT ABDOMEN PELVIS WO CONTRAST 2024-01-30 18:58:58 Norma [facility] COMP. METABOLIC PANEL ([id number]) 2024-01-30 16:35:00 Faulconer, Zo [facility] CBC WITH DIFF 2024-01-30 16:35:00 Zo Green [facility] CONSENT/REFUSAL FOR DIAGNOSIS AND TREATMENT 2024-01-15 03:41:26 Doctor Unassigned, [place] [facility] ASSIGNMENT OF BENEFITS 2024-01-15 03:35:20 Docto r Unassigned, [place] [facility] ASSIGNMENT OF BENEFITS 2021-05-20 22:59:18 Docto r Unassigned, [place] [facility] MICROALBUMIN URINE 2021-02-14 22:17:00 Joel Aranda [facility] CONSENT/REFUSAL FOR DIAGNOSIS AND TREATMENT 2021-02-14 21:51:32 Doctor Unassigned, [place] [facility] ASSIGNMENT OF BENEFITS 2021-02-14 21:50:52 Docto r Unassigned, [place] [facility] XR TIBIA FIBULA 2 VW RIGHT 2020-03-12 13:27:36 Chelle Fernandez [facility] XR LUMBAR SPINE 3 VW 2020-02-16 18:44:17 Basim Aranda [facility] ASSIGNMENT OF BENEFITS 2020-02-16 17:58:39 Docpaige orozco Unassigned, [place] [facility] COLONOSCOPY (ENDO) 2019-12-30 15:52:18 Joel Aranda [facility] COLONOSCOPY (ENDO) 2019-12-30 15:52:18 Joel Aranda [facility] POCT GLUCOSE(AGE >30DAYS) 2019-12-30 13:50:[address] [facility] DAY SURGERY - ADC 2019-12-30 06:01:00 Doctor Ileana ssigned, [place] [facility] HCV ANTIBODY 2019-10-18 15:27:00 Tl Aranda [facility] Plan of Care Planned Activity Planned Date Details Comments Source Encounters Start Date/Time End Date/Time Encounter Type Admission Type Attending [facility] Care Facility Care Department Encounter ID Source 2024-08-23 09:12:00 2024-08-25 13:20:00 Outpatient X RAJ GARCIA [facility] [id number] General acute hospital 2024-08-23 09:12:00 2024-08-25 13:20:[address] [facility] 1.2.840.114 350.1.13.10 4.2.7.2.686 [id number] General acute hospital 2024-07-04 00:00:00 2024-07-04 11:05:06 Transition of Care Martell Fallon Michele A [facility] [place] 1.2.840.114 350.1.13.10 4.2.7.2.686 [id number] General acute hospital 2024-06-23 11:30:00 2024-07-01 17:41:00 Inpatient X FLORENTIN PALACIO [facility] [id number] General acute hospital 2024-06-23 11:30:00 2024-07-01 17:41:00 Hospital Encounter Juno Hwang David [place], Jelani [facility] 1.2.840.114 350.1.13.10 4.2.7.2.686 [id number] General acute hospital 2024-06-27 12:11:00 2024-06-27 12:31:00 Anesthesia Event Benja Pang Thomas 1.2.840.1 [id number] 3.104.2.7 .3.750114 .8 [id number] General acute hospital 2024-06-27 00:00:00 2024-06-27 00:00:00 Travel 1.2.840.1 [id number] 3.104.2.7 .3.092176 .8 1.2.840.114 350.1.13.10 4.2.7.3.698 [id number] General acute hospital 2024-06-23 00:00:00 2024-06-23 00:00:00 Travel 1.2.840.1 [id number] 3.104.2.7 .3.759408 .8 1.2.840.114 350.1.13.10 4.2.7.3.698 084.8 [id number] General acute hospital 2024-06-20 11:03:00 2024-06-20 12:50:00 Emergency X MULUGETA PALMA [facility]RES [facility] ERT [id number] General acute hospital 2024-06-20 11:03:00 2024-06-20 12:50:00 Emergency Mulugeta Palma 1.2.840.1 63235.1.1 3.104.2.7 .3.826284 .8 [id number] General acute hospital 2024-06-19 12:34:00 2024-06-19 18:05:[address] Jun[address]MAN K [facility] ERT [id number] General acute hospital 2024-06-19 12:34:00 2024-06-19 18:05:00 Emergency Juno Hwangge 1.2.840.1 94638.1.1 3.104.2.7 .3.475566 .8 [id number] General acute hospital 2024-06-19 00:00:00 2024-06-19 00:00:00 Travel 1.2.840.1 10803.1.1 3.104.2.7 .3.523113 .8 1.2.840.114 350.1.13.10 4.2.7.3.698 084.8 [id number] General acute hospital 2024-06-16 18:07:00 2024-06-16 19:57:00 Emergency [address] TRACEY ERICCA [facility] ERT [id number] General acute hospital 2024-06-16 18:07:00 2024-06-16 19:57:00 Emergency Vicente Caldera 1.2.840.1 84527.1.1 3.104.2.7 .3.001690 .8 [id number] General acute hospital 2024-06-15 17:52:00 2024-06-16 00:32:00 Emergency X ZO GREEN [facility] [id number] General acute hospital 2024-06-15 17:52:00 2024-06-16 00:32:00 Emergency Zo Green 1.2.840.1 73559.1.1 3.104.2.7 .3.361578 .8 [id number] General acute hospital 2024-06-16 00:00:00 2024-06-16 00:00:00 Travel 1.2.840.1 32764.1.1 3.104.2.7 .3.671901 .8 1.2.840.114 350.1.13.10 4.2.7.3.698 084.8 [id number] General acute hospital 2024-06-15 00:00:00 2024-06-15 00:00:00 Travel 1.2.840.1 71114.1.1 3.104.2.7 .3.611921 .8 1.2.840.114 350.1.13.10 4.2.7.3.698 084.8 [id number] General acute hospital 2024-04-21 00:00:00 2024-05-28 18:28:04 Patient Secure Msg Doctor Unassigned, [place] 1.2.840.1 43539.1.1 3.104.2.7 .3.684121 .8 [id number] General acute hospital 2024-04-22 00:00:00 2024-05-28 18:26:38 Patient Secure Msg Doctor Unassigned, [place] 1.2.840.1 40292.1.1 3.104.2.7 .3.867611 .8 [id number] General acute hospital 2024-04-20 00:00:00 2024-05-21 18:17:43 Patient Secure Msg Doctor Unassigned, [place] 1.2.840.1 56460.1.1 3.104.2.7 .3.536181 .8 [id number] General acute hospital 2024-04-11 00:00:00 2024-04-11 14:11:19 Patient Outreach Destiny Prajapati 1.2.840.1 69919.1.1 3.104.2.7 .3.531013 .8 [id number] General acute hospital 2024-04-06 01:32:00 2024-04-06 06:05:00 Emergency X MULU[facility]A [facility] ERT [id number] General acute hospital 2024-04-06 01:32:00 2024-04-06 06:05:00 Emergency Minerva, [place] 1.2.840.1 71593.1.1 3.104.2.7 .3.653559 .8 [id number] General acute hospital 2024-04-06 00:00:00 2024-04-06 00:00:00 Travel 1.2.840.1 99399.1.1 3.104.2.7 .3.443506 .8 1.2.840.114 350.1.13.10 4.2.7.3.698 084.8 [id number] General acute hospital 2024-04-04 00:00:00 2024-04-04 08:34:06 Patient Outreach Destiny Prajapati 1.2.840.1 70633.1.1 3.104.2.7 .3.511059 .8 [id number] General acute hospital 2024-04-03 09:43:00 2024-04-03 17:45:00 Emergency X NANDO HAGAN [facility]LES [facility] ERT [id number] General acute hospital 2024-04-03 09:43:00 2024-04-03 17:45:00 Emergency Nando Hagan 1.2.840.1 96884.1.1 3.104.2.7 .3.892159 .8 [id number] General acute hospital 2024-04-03 00:00:00 2024-04-03 00:00:00 Travel 1.2.840.1 96478.1.1 3.104.2.7 .3.012806 .8 1.2.840.114 350.1.13.10 4.2.7.3.698 084.8 [id number] General acute hospital 2024-04-01 00:00:00 2024-04-01 14:18:07 Patient Outreach Destiny Prajapati 1.2.840.1 98427.1.1 3.104.2.7 .3.934043 .8 [id number] General acute hospital 2024-03-31 12:38:00 2024-03-31 19:42:00 Emergency X JOHNNY TEE [facility] [id number] General acute hospital 2024-03-31 12:38:00 2024-03-31 19:42:00 Emergency Johnny Tee 1.2.840.1 51950.1.1 3.104.2.7 .3.293703 .8 [id number] General acute hospital 2024-03-31 00:00:00 2024-03-31 00:00:00 Travel 1.2.840.1 17177.1.1 3.104.2.7 .3.341730 .8 1.2.840.114 350.1.13.10 4.2.7.3.698 084.8 [id number] General acute hospital 2024-03-30 00:00:00 2024-03-30 10:17:48 Patient Outreach Destiny Prajapati 1.2.840.1 40648.1.1 3.104.2.7 .3.535085 .8 [id number] General acute hospital 2024-03-30 00:00:00 2024-03-30 08:13:15 Patient Outreach Destiny Prajapati 1.2.840.1 85264.1.1 3.104.2.7 .3.498439 .8 [id number] General acute hospital 2024-03-29 14:48:00 2024-03-29 19:06:00 Emergency X KVNG FRANK [facility] [id number] General acute hospital 2024-03-29 14:48:00 2024-03-29 19:06:00 Emergency Kvng Frank Darrell 1.2.840.1 91875.1.1 3.104.2.7 .3.537360 .8 [id number] General acute hospital 2024-03-29 00:00:00 2024-03-29 14:12:53 Patient Outreach Destiny Prajapati 1.2.840.1 56802.1.1 3.104.2.7 .3.335003 .8 [id number] General acute hospital 2024-03-29 00:00:00 2024-03-29 08:02:10 Patient Outreach Destiny Prajapati 1.2.840.1 97152.1.1 3.104.2.7 .3.026938 .8 [id number] General acute hospital 2024-03-29 00:00:00 2024-03-29 00:00:00 Travel 1.2.840.1 69001.1.1 3.104.2.7 .3.646958 .8 1.2.840.114 350.1.13.10 4.2.7.3.698 084.8 [id number] General acute hospital 2024-03-23 00:00:00 2024-03-23 00:00:00 Patient Outreach Nargis Moore 1.2.840.114 350.1.13.10 4.2.7.2.686 [id number] General acute hospital 2024-03-23 00:00:00 2024-03-23 00:00:00 Patient Outreach Destiny Prajapati 1.2.840.114 350.1.13.10 4.2.7.2.686 [id number] General acute hospital 2024-03-23 00:00:00 2024-03-23 00:00:00 Patient Outreach Destiny Prajapati 1.2.840.114 350.1.13.10 4.2.7.2.686 [id number] General acute hospital 2024-03-23 00:00:00 2024-03-23 00:00:00 Patient Outreach Destiny Prajapati 1.2.840.114 350.1.13.10 4.2.7.2.686 [id number] General acute hospital 2024-03-22 09:57:00 2024-03-22 17:18:00 Emergency X BALJIT GAYLE PAUL [facility] ERT [id number] General acute hospital 2024-03-22 09:57:00 2024-03-22 17:18:00 Emergency Baljit Gayle [facility] 1.2.840.114 350.1.13.10 4.2.7.2.686 [id number] 014 [id number] General acute hospital 2024-03-11 20:22:00 2024-03-12 00:03:00 Emergency X DL MILLARD [facility] ERT [id number] General acute hospital 2024-03-11 20:22:00 2024-03-12 00:03:00 Emergency Dl Millard [facility] 1.2.840.114 350.1.13.10 4.2.7.2.686 [id number] 014 [id number] General acute hospital 2024-02-10 11:58:00 2024-02-10 15:10:[address] [facility] ERT [id number] General acute hospital 2024-02-10 11:58:00 2024-02-10 15:10:00 Emergency David Paul [facility] 1.2.840.114 350.1.13.10 4.2.7.2.686 [id number] 084 [id number] General acute hospital 2024-02-09 14:01:00 2024-02-09 21:19:[address] [facility] ERT [id number] General acute hospital 2024-02-09 14:01:00 2024-02-09 21:19:00 Emergency Tara Ireland [facility] 1.2.840.114 350.1.13.10 4.2.7.2.686 [id number] 084 [id number] General acute hospital 2024-02-06 09:21:00 2024-02-06 11:51:00 Emergency X DESTINY MULLER [facility] ERT [id number] General acute hospital 2024-02-06 09:21:00 2024-02-06 11:51:00 Emergency Destiny Muller [facility] 1.2.840.114 350.1.13.10 4.2.7.2.686 [id number] 084 [id number] General acute hospital 2024-01-30 10:06:00 2024-01-30 15:02:00 Emergency X ABDIAZIZMILAGROZO GRANADOS [facility] ERT [id number] General acute hospital 2024-01-30 10:06:00 2024-01-30 15:02:00 Emergency AbdiazizmilagroZo granados [facility] 1.2.840.114 350.1.13.10 4.2.7.2.686 [id number] 084 [id number] General acute hospital 2024-01-14 21:21:00 2024-01-14 21:48:00 Emergency X RAMONA, SILAS TORRES [facility] ERT [id number] General acute hospital 2024-01-14 21:21:00 2024-01-14 21:48:00 Emergency Silas Andersen [facility] 1.2.840.114 350.1.13.10 4.2.7.2.686 [id number] 084 [id number] General acute hospital 2024-01-05 06:39:00 2024-01-05 07:57:00 Emergency X JACKIE DIAZ [facility] ERT [id number] General acute hospital 2024-01-05 06:39:00 2024-01-05 07:57:00 Emergency Jackie Diaz [facility] 1.2.840.114 350.1.13.10 4.2.7.2.686 [id number] 084 [id number] General acute hospital 2022-12-29 13:30:00 2022-12-29 14:30:00 CAV Lorene Stein 2.16.840. 1.879885. 4.6.00932 26414 2.16.840.1. 769993.4.6. [id number] [facility] 2022-10-17 00:00:00 2022-10-17 00:00:00 Outpatient [facility] [id number] [facility] 2022-10-17 00:00:00 2022-10-17 00:00:00 Outpatient [facility] [id number] [facility] 2022-09-07 00:00:00 2022-09-07 00:00:00 Outpatient [facility] [id number] [facility] 2022-08-21 00:00:00 2022-08-21 00:00:00 RefTl Harvey [facility] 1.2.840.114 350.1.13.10 4.2.7.2.686 [id number] 044 [id number] General acute hospital 2022-02-17 00:00:00 2022-02-17 00:00:00 RefTl Harvey [facility] 1.2.840.114 350.1.13.10 4.2.7.2.686 [id number] 044 [id number] General acute hospital 2021-11-06 10:40:00 2021-11-06 10:40:00 Outpatient R TL ARANDA [facility] [id number] General acute hospital 2021-10-28 00:00:00 2021-10-28 00:00:00 Refill Tl Aranda [facility] 1.2.840.114 350.1.13.10 4.2.7.2.686 [id number] 044 [id number] General acute hospital 2021-10-03 00:00:00 2021-10-03 00:00:00 Refill lT Aranda [facility] 1.2840.114 350.1.13.10 4.2.7.2.686 [id number] 044 [id number] General acute hospital 2021-09-09 00:00:00 2021-09-09 00:00:00 Telephone Georgina Garcia [facility] 1.2840.114 350.1.13.10 4.2.7.2.686 [id number] 082 [id number] General acute hospital 2021-07-18 00:00:00 2021-07-18 00:00:00 Patient Secure Msg Doctor Unassigned, Mul[place]ugh [facility] 1.2840.114 350.1.13.10 4.2.7.2.686 [id number] 019 [id number] General acute hospital 2021-07-12 00:00:00 2021-07-12 00:00:00 Telephone Tl Aranda [facility] 1.2.840.114 350.1.13.10 4.2.7.2.686 [id number] 044 [id number] General acute hospital 2021-07-10 15:55:33 2021-07-10 15:55:44 Office Visit Tl Aranda [facility] 1.2.840.114 350.1.13.10 4.2.7.2.686 [id number] 044 [id number] General acute hospital 2021-07-10 09:55:19 2021-07-10 11:00:50 Office Visit Tl Aranda [facility] 1.2.840.114 350.1.13.10 4.2.7.2.686 [id number] 044 [id number] General acute hospital 2021-07-10 10:00:00 2021-07-10 10:00:00 Outpatient R MANOJ [facility] [id number] General acute hospital 2021-07-09 00:00:00 2021-07-09 00:00:00 Telephone Tl Aranda [facility] 1.2.840.114 350.1.13.10 4.2.7.2.686 [id number] General acute hospital 2021-06-19 00:00:00 2021-06-19 00:00:00 Refill Tl Aranda [facility] 1.2.840.114 350.1.13.10 4.2.7.2.686 [id number] 044 [id number] General acute hospital 2021-05-20 17:59:38 2021-05-20 18:39:03 Urgent Care Provider, [facility] Lesli Oscar [facility] 1.2.840.114 350.1.13.10 4.2.7.2.686 [id number] 044 [id number] General acute hospital 2021-05-20 18:20:00 2021-05-20 18:20:00 Outpatient R [facility] [id number] General acute hospital 2021-05-20 00:00:00 2021-05-20 00:00:00 Orders Only Doctor Unassigned, Muldraugh [facility] 1.2.840.114 350.1.13.10 4.2.7.2.686 [id number] [id number] General acute hospital 2021-05-16 00:00:00 2021-05-16 00:00:00 Refill Tl Aranda [facility] 1.2.840.114 350.1.13.10 4.2.7.2.686 [id number] 044 [id number] General acute hospital 2021-02-14 16:53:57 2021-02-14 17:08:57 Death Claim Examiner Visit Pob, 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 Tl Aranda [facility] 1..840.114 350.1.13.10 4.2.7.2.686 [id number] General acute hospital 2021-02-14 15:55:11 2021-02-14 16:27:03 Office Visit Tl Aranda [facility] 1.2.840.114 350.1.13.10 4.2.7.2.686 [id number] 044 [id number] General acute hospital 2021-02-14 16:00:00 2021-02-14 16:00:00 Outpatient R TL ARANDA [facility] [id number] General acute hospital 2021-02-14 00:00:00 2021-02-14 00:00:00 Orders Only Doctor Unassigned, Muldraugh [facility] 1.2840.114 350.1.13.10 4.2.7.2.686 [id number] 009 [id number] General acute hospital 2021-02-08 00:00:00 2021-02-08 00:00:00 Refill Tl Aranda [facility] 1.2.840.114 350.1.13.10 4.2.7.2.686 [id number] 044 [id number] General acute hospital 2021-01-28 00:00:00 2021-01-28 00:00:00 Telephone ScoobychrissyTl huerta [facility] 1.2.840.114 350.1.13.10 4.2.7.2.686 [id number] 044 [id number] General acute hospital 2021-01-22 00:00:00 2021-01-22 00:00:00 [facility] 1.2.840.114 350.1.13.10 4.2.7.2.686 [id number] 044 [id number] General acute hospital 2021-01-21 00:00:00 2021-01-21 00:00:00 Refill Tl Aranda [facility] 1.2.840.114 350.1.13.10 4.2.7.2.686 [id number] 044 [id number] General acute hospital 2020-10-31 13:30:00 2020-10-31 13:30:00 Outpatient R NIMISHA YING [facility] [id number] General acute hospital 2020-10-09 14:40:00 2020-10-09 14:40:00 Outpatient R TL ARANDA [facility] [id number] General acute hospital 2020-09-24 09:20:00 2020-09-24 09:20:00 Outpatient R FRANK QUIROZ [facility] [id number] General acute hospital 2020-07-09 09:20:00 2020-07-09 09:20:00 Outpatient R TL ARANDA [facility] [id number] General acute hospital 2020-07-09 08:17:40 2020-07-09 08:37:40 Telemedici ne Visit Tl Aranda [facility] 1.0.114 350.1.13.10 4.2.7.2.686 [id number] 044 [id number] General acute hospital 2020-06-28 00:00:00 2020-06-28 00:00:00 Darrell [facility] 1.0.114 350.1.13.10 4.2.7.2.686 [id number] 044 [id number] General acute hospital 2020-04-19 08:00:00 2020-04-19 08:00:00 Outpatient R TL ARANDA [facility] [id number] General acute hospital 2020-04-12 09:46:54 2020-04-12 10:06:54 Urgent Care Provider, [facility] 1.114 350.1.13.10 4.2.7.2.686 [id number] 044 [id number] General acute hospital 2020-04-12 10:00:00 2020-04-12 10:00:00 Outpatient R YOSSI PRASAD [facility] [id number] General acute hospital 2020-04-09 00:00:00 2020-04-09 00:00:00 Telephone Tl Aranda [facility] 1..114 350.1.13.10 4.2.7.2.686 [id number] 044 [id number] General acute hospital 2020-04-05 00:00:00 2020-04-05 00:00:00 Telephone Rosa ElenaTl [facility] 1..114 350.1.13.10 4.2.7.2.686 [id number] 044 [id number] General acute hospital 2020-03-16 10:02:04 2020-03-16 10:02:51 Dent Remover Visit Debra [facility] 1.2.840.114 350.1.13.10 4.2.7.2.686 [id number] General acute hospital 2020-03-15 15:00:00 2020-03-15 15:00:00 Outpatient R DEBRA FRIEDMAN [facility] [id number] General acute hospital 2020-03-14 16:30:00 2020-03-14 16:30:00 Outpatient R ANALYDARRELL [facility] [id number] General acute hospital 2020-03-14 15:42:00 2020-03-14 15:57:00 Telemedici ne Visit [facility] 1.2.840.114 350.1.13.10 4.2.7.2.686 [id number] 044 [id number] General acute hospital 2020-03-14 00:00:00 2020-03-14 00:00:00 Telephone [facility]l [facility] 1.2.840.114 350.1.13.10 4.2.7.2.686 [id number] 044 [id number] General acute hospital 2020-03-12 07:53:07 2020-03-12 08:57:[address] [facility] 1.2.840.114 350.1.13.10 4.2.7.2.686 [id number] [id number] General acute hospital 2020-03-12 07:53:07 2020-03-12 08:57:00 Emergency X CHELLE FERNANDEZ [facility] ERT [id number] General acute hospital 2020-03-08 15:00:00 2020-03-08 15:00:00 Outpatient R DEBRA FRIEDMAN [facility] [id number] General acute hospital 2020-02-28 13:00:00 2020-02-28 13:00:00 Outpatient R TL ARANDA [facility] [id number] General acute hospital 2020-02-28 07:16:07 2020-02-28 07:56:07 Telemedici ne Visit Tl Aranda [facility] 1.2.840.114 350.1.13.10 4.2.7.2.686 [id number] [id number] General acute hospital 2020-02-23 00:00:00 2020-02-23 00:00:00 Telephone Manoj [facility] 1.2.840.114 350.1.13.10 4.2.7.2.686 [id number] General acute hospital 2020-02-16 12:59:15 2020-02-16 23:59:00 Outpatient R MANOJ [facility] [id number] General acute hospital 2020-02-16 12:59:00 2020-02-16 23:59:00 Hospital Encounter Manoj [facility] 1.2.840.114 350.1.13.10 4.2.7.2.686 [id number] General acute hospital 2020-02-16 00:00:00 2020-02-16 00:00:00 Orders Only Doctor Unassigned, Muldraugh [facility] 1.2.840.114 350.1.13.10 4.2.7.2.686 [id number] [id number] General acute hospital 2020-02-16 00:00:00 2020-02-16 00:00:00 Telephone Manoj [facility] 1.2.840.114 350.1.13.10 4.2.7.2.686 [id number] 044 [id number] General acute hospital 2020-01-18 07:23:58 2020-01-18 08:32:20 Office Visit Manoj [facility] 1.2.840.114 350.1.13.10 4.2.7.2.686 [id number] 044 [id number] General acute hospital 2020-01-18 07:20:00 2020-01-18 07:20:00 Outpatient R MANOJ TL [facility] [id number] General acute hospital 2020-01-18 00:00:00 2020-01-18 00:00:00 Letter (Out) Doctor Unassigned, Muldraugh [facility] 1.2.840.114 350.1.13.10 4.2.7.2.686 [id number] 044 [id number] General acute hospital 2020-01-07 00:00:00 2020-01-07 00:00:00 Natividad Corrigan [facility] 1.2.840.114 350.1.13.10 4.2.7.2.686 [id number] General acute hospital 2020-01-04 00:00:00 2020-01-04 00:00:00 Telephone ManojTl [facility] 1.2.840.114 350.1.13.10 4.2.7.2.686 [id number] 044 [id number] General acute hospital 2019-12-30 07:35:00 2019-12-30 11:49:00 Hospital Encounter Glo Finn [facility] 1.2.840.114 350.1.13.10 4.2.7.2.686 [id number] General acute hospital 2019-12-30 07:35:00 2019-12-30 11:49:00 Outpatient R FINN GLO [facility] CASEY [id number] General acute hospital 2019-12-30 00:00:00 2019-12-30 00:00:00 Orders Only Doctor Unassigned, Muldraugh [facility] 1.2840.114 350.1.13.10 4.2.7.2.686 [id number] General acute hospital 2019-12-19 08:02:28 2019-12-19 09:08:19 Office Visit Kendall Campa [facility] Macy Ann [facility] 1.2.840.114 350.1.13.10 4.2.7.2.686 [id number] General acute hospital 2019-12-01 15:15:00 2019-12-01 15:15:00 Outpatient R JOCELYN GREER [facility] [id number] General acute hospital 2019-10-26 14:45:00 2019-10-26 15:36:20 Outpatient R DEONNANIMISHA [facility] [id number] General acute hospital 2019-06-10 10:30:00 2019-06-10 12:20:48 Outpatient R TL ARANDA [facility] [id number] General acute hospital 2019-05-30 14:20:00 2019-05-30 17:18:22 Outpatient R DARRELL MAXWELL III [facility] [id number] General acute hospital 2019-05-24 08:45:00 2019-05-24 08:45:00 Outpatient R MARIAMA SOMERS [facility] [id number] General acute hospital 2019-04-26 08:30:00 2019-04-26 09:03:15 Outpatient MARIAMA REAL [facility] [id number] General acute hospital 2019-01-12 15:30:00 2019-01-12 16:04:35 Outpatient R NATIVIDAD COPELAND [facility] [id number] General acute hospital Results Test Description Test Time Test Comments Results Result Co mments Source [facility] GLUCOSE (AUTOMATED)2024-08-25 01:27:39* Test Item Value Reference Range Interpretation Comme nts POCT GLU (test code = 3534502770) 134 mg/dL 70-110 H Lab Interpretation (test cod e = 37673-1) Abnormal [facility] GLUCOSE (AUTOMATED)2024-08-24 23:32:04* Test Item Value Reference Range Interpretation Comme nts POCT GLU (test code = 6455487960) 103 mg/dL 70-110 Lab Interpretation (test cod e = 77332-7) Normal [facility] GLUCOSE (AUTOMATED)2024-08-24 21:25:39* Test Item Value Reference Range Interpretation Comme nts POCT GLU (test code = 9913153072) 175 mg/dL 70-110 H Lab Interpretation (test cod e = 18533-1) Abnormal [facility]2024-08-24 19:29:36* Test Item Value Reference Range Interpretation Comme nts POCT GLU (test code = 0559504153) 224 mg/dL 70-110 H Lab Interpretation (test cod e = 78924-8) Abnormal [facility] GLUCOSE (AUTOMATED)2024-08-24 18:32:07* Test Item Value Reference Range Interpretation Comme nts POCT GLU (test code = 1595231658) 269 mg/dL 70-110 H Lab Interpretation (test cod e = 46548-9) Abnormal [facility] GLUCOSE (AUTOMATED)2024-08-24 17:47:07* Test Item Value Reference Range Interpretation Comme nts POCT GLU (test code = 5513539537) 202 mg/dL 70-110 H Lab Interpretation (test cod e = 58919-8) Abnormal [facility] GLUCOSE (AUTOMATED)2024-08-24 16:29:35* Test Item Value Reference Range Interpretation Comme nts POCT GLU (test code = 4725282405) 224 mg/dL 70-110 H Lab Interpretation (test cod e = 57422-4) Abnormal [facility] GLUCOSE (AUTOMATED)2024-08-24 15:25:37* Test Item Value Reference Range Interpretation Comme nts POCT GLU (test code = 2910531691) 206 mg/dL 70-110 H Lab Interpretation (test cod e = 87121-1) Abnormal [facility] GLUCOSE (AUTOMATED)2024-08-24 14:25:36* Test Item Value Reference Range Interpretation Comme nts POCT GLU (test code = 6630107572) 148 mg/dL 70-110 H Lab Interpretation (test cod e = 08993-8) Abnormal [facility] GLUCOSE (AUTOMATED)2024-08-24 13:32:06* Test Item Value Reference Range Interpretation Comme nts POCT GLU (test code = 6285312778) 87 mg/dL 70-110 Lab Interpretation (test cod e = 70731-8) Normal [facility] GLUCOSE (AUTOMATED)2024-08-24 12:30:07* Test Item Value Reference Range Interpretation Comme nts POCT GLU (test code = 4265081024) 87 mg/dL 70-110 Lab Interpretation (test cod e = 00534-6) Normal [facility] GLUCOSE (AUTOMATED)2024-08-24 11:39:08* Test Item Value Reference Range Interpretation Comme nts POCT GLU (test code = 8236120545) 82 mg/dL 70-110 Lab Interpretation (test cod e = 17541-2) Normal [facility] GLUCOSE (AUTOMATED)2024-08-24 10:33:04* Test Item Value Reference Range Interpretation Comme nts POCT GLU (test code = 2549411087) 83 mg/dL 70-110 Lab Interpretation (test cod e = 15547-4) Normal [facility] GLUCOSE (AUTOMATED)2024-08-24 09:21:05* Test Item Value Reference Range Interpretation Comme nts POCT GLU (test code = 5277477928) 80 mg/dL 70-110 Lab Interpretation (test cod e = 27939-2) Normal [facility] GLUCOSE (AUTOMATED)2024-08-24 08:32:34* Test Item Value Reference Range Interpretation Comme nts POCT GLU (test code = 7032968407) 86 mg/dL 70-110 Lab Interpretation (test cod e = 77292-6) Normal [facility] GLUCOSE (AUTOMATED)2024-08-24 07:42:04* Test Item Value Reference Range Interpretation Comme nts POCT GLU (test code = 7488790346) 91 mg/dL 70-110 Lab Interpretation (test cod e = 72997-6) Normal [facility] GLUCOSE (AUTOMATED)2024-08-24 06:35:32* Test Item Value Reference Range Interpretation Comme nts POCT GLU (test code = 9161200883) 83 mg/dL 70-110 Lab Interpretation (test cod e = 96012-5) [id number]:50:54* Test Item Value Reference Range Interpretation Comme nts NT-proBNP (test code = 25606-7) 181 pg/mL <=125 RJ (test code = RJ) Result Indeterminate-Consid er causes of NT-proBNP elevation other than Heart failure such as acute coronary syndrome, pulmonary embolism, pulmonary hypertension, sepsis, stroke, and renal dysfunction. Lab Interpretation (test code = 98616-5) Abnormal [facility] GLUCOSE (AUTOMATED)2024-08-24 05:19:32* Test Item Value Reference Range Interpretation Comme nts POCT GLU (test code = 1590776416) 91 mg/dL 70-110 Lab Interpretation (test cod e = 77380-2) Normal [facility] GLUCOSE (AUTOMATED)2024-08-24 04:25:02* Test Item Value Reference Range Interpretation Comme nts POCT GLU (test code = 5895279445) 104 mg/dL 70-110 Lab Interpretation (test cod e = 05051-6) Normal [facility] GLUCOSE (AUTOMATED)2024-08-24 03:30:06* Test Item Value Reference Range Interpretation Comme nts POCT GLU (test code = 2369785606) 81 mg/dL 70-110 Lab Interpretation (test cod e = 18208-9) Normal [facility] GLUCOSE (AUTOMATED)2024-08-24 02:33:07* Test Item Value Reference Range Interpretation Comme nts POCT GLU (test code = 0912148788) 104 mg/dL 70-110 Lab Interpretation (test cod e = 64019-4) Normal [facility] GLUCOSE (AUTOMATED)2024-08-24 01:43:39* Test Item Value Reference Range Interpretation Comme nts POCT GLU (test code = 6980439158) 91 mg/dL 70-110 Lab Interpretation (test cod e = 40072-8) Normal [facility] GLUCOSE (AUTOMATED)2024-08-24 00:29:59* Test Item Value Reference Range Interpretation Comme nts POCT GLU (test code = 1150931663) 86 mg/dL 70-110 Lab Interpretation (test cod e = 84211-7) Normal [facility] GLUCOSE (AUTOMATED)2024-08-23 23:40:37* Test Item Value Reference Range Interpretation Comme nts POCT GLU (test code = 0098378991) 107 mg/dL 70-110 Lab Interpretation (test cod e = 05836-8) Normal [facility] GLUCOSE (AUTOMATED)2024-08-23 23:19:03* Test Item Value Reference Range Interpretation Comme nts POCT GLU (test code = 0063638763) 105 mg/dL 70-110 Lab Interpretation (test cod e = 84985-0) Normal [facility] GLUCOSE (AUTOMATED)2024-08-23 22:17:36* Test Item Value Reference Range Interpretation Comme nts POCT GLU (test code = 5764243987) 77 mg/dL 70-110 Lab Interpretation (test cod e = 49864-0) Normal [facility] GLUCOSE (AUTOMATED)2024-08-23 21:24:08* Test Item Value Reference Range Interpretation Comme nts POCT GLU (test code = 6442210585) 70 mg/dL 70-110 Lab Interpretation (test cod e = 61461-9) Normal [facility] GLUCOSE (AUTOMATED)2024-08-23 20:19:04* Test Item Value Reference Range Interpretation Comme nts POCT GLU (test code = 1303166667) 109 mg/dL 70-110 Lab Interpretation (test cod e = 82036-1) Normal [facility] GLUCOSE (AUTOMATED)2024-08-23 19:30:02* Test Item Value Reference Range Interpretation Comme nts POCT GLU (test code = 5437315240) 134 mg/dL 70-110 H Lab Interpretation (test cod e = 71596-3) Abnormal [facility] GLUCOSE (AUTOMATED)2024-08-23 17:00:32* Test Item Value Reference Range Interpretation Comme nts POCT GLU (test code = 4301907392) 119 mg/dL 70-110 H Lab Interpretation (test cod e = 73118-2) Abnormal [facility] Glucose (Age >30 Days)2024-08-23 16:05:00 * Test Item Value Reference Range Interpretation Comme nts POCT Glu (age>30days) (test code = 3342) 123 mg/dL 70-110 A ED provider informed Lab Interpretation (test code = 37204-4) Abnormal [facility] GLUCOSE(AGE >30DAYS)2024-08-23 15:55:00* Test Item Value Reference Range Interpretation Comme nts Lab Interpretation (test cod e = 70456-5) [facility] 15:51:32* Test Item Value Reference Range Interpretation Comme nts POCT GLU (test code = 1943617730) 38 mg/dL 70-110 LL Lab Interpretation (test cod e = 19571-1) Abnormal [facility]. Metabolic Panel (06466)2024-08-23 15:18:48* Test Item Value Reference Range Interpretation Comme nts NA (test code = 1502603697) 136 mmol/L 135-145 K (test code = 9452127158) 3.6 mmol/L 3.5-5.0 CL (test code = 5553206450) 106 mmol/L 98-108 CO2 TOTAL (test code = 5563499629) 19 mmol/L 23-31 L AGAP (test code = 7849116159) 11 2-16 BUN (test code = 9679878609) 54 mg/dL 7-23 H GLUCOSE (test code = 2248470197) 56 mg/dL 70-110 L CREATININE (test code = 2160-0) 1.51 mg/dL 0.60-1.25 H TOTAL BILI (test code = 8198413664) 0.4 mg/dL 0.1-1.1 CALCIUM (test code = 3172303062) 9.0 mg/dL 8.6-10.6 T PROTEIN (test code = 0622030271) 7.4 g/dL 6.3-8.2 ALBUMIN (test code = 5815845106) 4.3 g/dL 3.5-5.0 ALK PHOS (test code = 7351587455) 85 U/L 34-122 ALTv (test code = 1742-6) 24 U/L 5-50 AST(SGOT) (test code = 8400598215) 22 U/L 13-40 eGFR (test code = 74848-5) 49.4 mL/min/1.73m2 CKD-EPI eGFR (2020). Assuming creatinine has been stable day-to-day for at least three months, the eGFR indicates Category G3a (45 - 59 mL/min/1.73 m2) Lab Interpretation (test code = 73638-1) Abnormal [facility] with [id number] 14:58:25* Test Item Value Reference Range Interpretation Comme nts WBC (test code = 6690-2) 11.38 4.20-10.70 H RBC (test code = 789-8) 4.02 4.26-5.52 L HGB (test code = 718-7) 11.7 g/dL 12.2-16.4 L HCT (test code = 4544-3) 36.0 % 38.4-49.3 L MCV (test code = 787-2) 89.6 fL 81.7-95.6 MCH (test code = 785-6) 29.1 pg 26.1-32.7 MCHC (test code = 786-4) 32.5 g/dL 31.2-35.0 RDW-SD (test code = 83713-4) 47.4 fL 38.5-51.6 RDW-CV (test code = 788-0) 14.5 % 12.1-15.4 PLT (test code = 777-3) 251 150-328 MPV (test code = 85470-0) 9.6 fL 9.8-13.0 L NRBC/100 WBC (test code = 4950537621) 0.0 0.0-10.0 NRBC x10^3 (test code = 0605345823) See_Comment [Automated message] The system which generated this result transmitted reference range: 10*3/?L. The reference range was not used to interpret this result as normal/abnormal. GRAN MAT (NEUT) % (test code = 770-8) 88.2 % IMM GRAN % (test code = 5612101218) 0.90 % LYMPH % (test code = 736-9) 4.8 % MONO % (test code = 5905-5) 5.8 % EOS % (test code = 713-8) 0.0 % BASO % (test code = 706-2) 0.3 % GRAN MAT x10^3(ANC) (test code = 3644273949) 10.04 10*3/uL 1.99-6.95 H IMM GRAN x10^3 (test code = 1095777791) 0.10 10*3/uL 0.00-0.06 H LYMPH x10^3 (test code = 731-0) 0.55 10*3/uL 1.09-3.23 L MONO x10^3 (test code = 742-7) 0.66 10*3/uL 0.36-1.02 EOS x10^3 (test code = 711-2) 0.06-0.53 L BASO x10^3 (test code = 704-7) 0.03 10*3/uL 0.01-0.09 Lab Interpretation (test code = 47874-3) [facility] 14:57:59* Test Item Value Reference Range Interpretation Comme nts POCT GLU (test code = 8616564276) 78 mg/dL 70-110 Lab Interpretation (test cod e = 20817-9) Normal [facility]+K+GLU+CA2+2024-08-23 14:47:11* Test Item Value Reference Range Interpretation Comme nts PH (test code = 6375149723) 7.26 7.32-7.42 L PCO2 TATIANA (test code = 5745924519) 51 41-51 PO2 TATIANA (test code = 1104871752) 21 25-40 L HCO3 TATIANA (test code = 6037564435) 22 24-28 L AC VBE(BEAKER) (test code = 7554916421) -5.2 mEq/L THB TATIANA (test code = 8663833852) 12.4 g/dL 13.5-18.0 L %O2HB TATIANA (test code = 4667113523) 33.0 % 52.0-63.0 L %COHB TATIANA (test code = 3453504756) 0.1 % 0.0-1.5 %METHB TATIANA (test code = 0971354457) 1.1 % 0.4-1.5 VOL%O2 TATIANA (test code = 7549825947) 5.8 % 6.0-12.0 L NA (test code = 2568722944) 136 mmol/L 135-145 K+ (test code = 8812537699) 3.8 mmol/L 3.5-5.0 AC CA IONZ (test code = 4232593765) 5.00 mg/dL 4.50-5.30 GLUCOSE (test code = 2346202246) 46 mg/dL 70-110 LL Lab Interpretation (test cod e = 45057-5) [facility]normal [facility] Whole Hwpis6848-79-72 14:45:07* Test Item Value Reference Range Interpretation Comme nts LACTIC ACID (test code = 0298272616) 1.25 mmol/L 0.50-2.20 Lab Interpretation (test cod e = 86938-8) Normal [facility] GLUCOSE (AUTOMATED)2024-08-23 14:38:03* Test Item Value Reference Range Interpretation Comme nts POCT GLU (test code = 1170648042) 57 mg/dL 70-110 L Lab Interpretation (test cod e = 07906-0) Abnormal [facility] GLUCOSE (AUTOMATED)2024-08-23 14:18:02* Test Item Value Reference Range Interpretation Comme nts POCT GLU (test code = 4446553935) 40 mg/dL 70-110 LL Lab Interpretation (test cod e = 12735-1) Abnormal [facility] GLUCOSE (AUTOMATED)2024-07-01 21:27:12* Test Item Value Reference Range Interpretation Comme nts POCT GLU (test code = 6314422480) 189 mg/dL 70-110 H Lab Interpretation (test cod e = 58735-2) [facility] 17:43:43* Test Item Value Reference Range Interpretation Comme nts POCT GLU (test code = 3150474995) 252 mg/dL 70-110 H Lab Interpretation (test cod e = 48521-0) [facility]2024-[facility]-01 13:20:21* Test Item Value Reference Range Interpretation Comme nts POCT GLU (test code = 6623045450) 157 mg/dL 70-110 H Lab Interpretation (test cod e = 91558-2) [facility]normal [facility]2024-07-01 00:48:27* Test Item Value Reference Range Interpretation Comme nts POCT GLU (test code = 5461950641) 202 mg/dL 70-110 H Lab Interpretation (test cod e = 85739-8) Abnormal [facility] GLUCOSE (AUTOMATED)2024-06-30 21:25:25* Test Item Value Reference Range Interpretation Comme nts POCT GLU (test code = 0139846630) 214 mg/dL 70-110 H Lab Interpretation (test cod e = 21802-5) Abnormal [facility] GLUCOSE (AUTOMATED)2024-06-30 16:15:38* Test Item Value Reference Range Interpretation Comme nts POCT GLU (test code = 8270489406) 294 mg/dL 70-110 H Lab Interpretation (test cod e = 67324-9) Abnormal [facility] GLUCOSE (AUTOMATED)2024-06-30 12:52:21* Test Item Value Reference Range Interpretation Comme nts POCT GLU (test code = 0722477123) 143 mg/dL 70-110 H Lab Interpretation (test cod e = 14649-4) Abnormal [facility] GLUCOSE (AUTOMATED)2024-06-30 02:04:07* Test Item Value Reference Range Interpretation Comme nts POCT GLU (test code = 4666429082) 270 mg/dL 70-110 H Lab Interpretation (test cod e = 82574-0) Abnormal [facility] GLUCOSE (AUTOMATED)2024-06-29 21:21:05* Test Item Value Reference Range Interpretation Comme nts POCT GLU (test code = 7698216676) 154 mg/dL 70-110 H Lab Interpretation (test cod e = 85584-9) Abnormal [facility] GLUCOSE (AUTOMATED)2024-06-29 16:43:53* Test Item Value Reference Range Interpretation Comme nts POCT GLU (test code = 7500628014) 246 mg/dL 70-110 H Lab Interpretation (test cod e = 08943-2) Abnormal [facility] GLUCOSE (AUTOMATED)2024-06-29 12:45:39* Test Item Value Reference Range Interpretation Comme nts POCT GLU (test code = 9786802981) 242 mg/dL 70-110 H Lab Interpretation (test cod e = 35617-2) Abnormal [facility] GLUCOSE (AUTOMATED)2024-06-29 02:41:42* Test Item Value Reference Range Interpretation Comme nts POCT GLU (test code = 5259733644) 218 mg/dL 70-110 H Lab Interpretation (test cod e = 22832-4) Abnormal [facility] GLUCOSE (AUTOMATED)2024-06-28 22:50:05* Test Item Value Reference Range Interpretation Comme nts POCT GLU (test code = 0129054567) 162 mg/dL 70-110 H Lab Interpretation (test cod e = 93273-6) Abnormal [facility] GLUCOSE (AUTOMATED)2024-06-28 21:57:09* Test Item Value Reference Range Interpretation Comme nts POCT GLU (test code = 6468404598) 121 mg/dL 70-110 H Lab Interpretation (test cod e = 21991-6) Abnormal [facility] GLUCOSE (AUTOMATED)2024-06-28 16:58:11* Test Item Value Reference Range Interpretation Comme nts POCT GLU (test code = 6825213223) 255 mg/dL 70-110 H Lab Interpretation (test cod e = 97444-9) Abnormal [facility] GLUCOSE (AUTOMATED)2024-06-28 13:03:41* Test Item Value Reference Range Interpretation Comme nts POCT GLU (test code = 2088156196) 152 mg/dL 70-110 H Lab Interpretation (test cod e = 57044-9) Abnormal [facility] GLUCOSE (AUTOMATED)2024-06-28 05:08:20* Test Item Value Reference Range Interpretation Comme nts POCT GLU (test code = 5377679428) 195 mg/dL 70-110 H Lab Interpretation (test cod e = 26256-9) Abnormal [facility] GLUCOSE (AUTOMATED)2024-06-28 02:11:33* Test Item Value Reference Range Interpretation Comme nts POCT GLU (test code = 9154192209) 321 mg/dL 70-110 H Lab Interpretation (test cod e = 06372-7) [facility]normal [facility] 1 [id number] 22:39:10ORDERING PHYSICIAN: KIMMIE SANDRA. HISTORY: L PICC [...] Comme nts POCT GLU (test code = 3277077548) 196 mg/dL 70-110 H Lab Interpretation (test cod e = 91339-9) [facility]normal [facility] ([facility])2024-06-27 21:33:03 * Test Item Value Reference Range Interpretation Comme nts Height (test code = 1852688959) 70 in Weight (test code = 8184272613) 195 lbs Systolic BP (test code = 0132230881) 124 mmHg Diastolic BP (test code = 8613883511) 63 mmHg Heart Rate (test code = 8785626844) 64 bpm BSA (test code = 7562221365) 2.06 m2 Radiology Study observation (narrative) (test code = 55627-1) RJ (test code = RJ) ?Left?Ventricle: Left [...] shunt. The probe was inserted by the marine farmer. There was no probe insertion difficulty.There were 1 attempts to insert the probe. Probe in 1216. Probe out 1229. Sedation and monitoring provided by anesthesia, see Epic documentation. There were no complications during the procedure. [facility] GLUCOSE (AUTOMATED)2024-06-27 19:49:24* Test Item Value Reference Range Interpretation Comme nts POCT GLU (test code = 2323071951) 184 mg/dL 70-110 H Lab Interpretation (test cod e = 47099-3) Abnormal [facility] GLUCOSE (AUTOMATED)2024-06-27 16:43:02* Test Item Value Reference Range Interpretation Comme nts POCT GLU (test code = 8316483124) 172 mg/dL 70-110 H Lab Interpretation (test cod e = 69474-0) Abnormal [facility] GLUCOSE (AUTOMATED)2024-06-27 14:14:12* Test Item Value Reference Range Interpretation Comme nts POCT GLU (test code = 8662386206) 131 mg/dL 70-110 H Lab Interpretation (test cod e = 46205-1) Abnormal [facility] GLUCOSE (AUTOMATED)2024-06-27 13:27:58* Test Item Value Reference Range Interpretation Comme nts POCT GLU (test code = 8403466279) 135 mg/dL 70-110 H Lab Interpretation (test cod e = 48356-2) Abnormal [facility] GLUCOSE (AUTOMATED)2024-06-27 01:38:29* Test Item Value Reference Range Interpretation Comme nts POCT GLU (test code = 4234294156) 125 mg/dL 70-110 H Lab Interpretation (test cod e = 56928-3) Abnormal [facility] GLUCOSE (AUTOMATED)2024-06-26 22:04:43* Test Item Value Reference Range Interpretation Comme nts POCT GLU (test code = 9596559669) 195 mg/dL 70-110 H Lab Interpretation (test cod e = 06215-1) Abnormal [facility] GLUCOSE (AUTOMATED)2024-06-26 17:27:34* Test Item Value Reference Range Interpretation Comme nts POCT GLU (test code = 1772462915) 181 mg/dL 70-110 H Lab Interpretation (test cod e = 46153-7) Abnormal [facility] GLUCOSE (AUTOMATED)2024-06-26 13:21:13* Test Item Value Reference Range Interpretation Comme nts POCT GLU (test code = 6398093995) 109 mg/dL 70-110 Lab Interpretation (test cod e = 13769-0) Normal [facility] GLUCOSE (AUTOMATED)2024-06-26 02:30:05* Test Item Value Reference Range Interpretation Comme nts POCT GLU (test code = 5197239068) 146 mg/dL 70-110 H Lab Interpretation (test cod e = 10156-7) Abnormal [facility] GLUCOSE (AUTOMATED)2024-06-25 21:46:31* Test Item Value Reference Range Interpretation Comme nts POCT GLU (test code = 0263666170) 99 mg/dL 70-110 Lab Interpretation (test cod e = 41594-2) Normal [facility] GLUCOSE (AUTOMATED)2024-06-25 16:57:02* Test Item Value Reference Range Interpretation Comme nts POCT GLU (test code = 6670273370) 147 mg/dL 70-110 H Lab Interpretation (test cod e = 66450-9) Abnormal [facility] GLUCOSE (AUTOMATED)2024-06-25 13:21:57* Test Item Value Reference Range Interpretation Comme nts POCT GLU (test code = 3262057309) 123 mg/dL 70-110 H Lab Interpretation (test cod e = 58551-0) Abnormal [facility] GLUCOSE (AUTOMATED)2024-06-25 00:59:00* Test Item Value Reference Range Interpretation Comme nts POCT GLU (test code = 1056917988) 144 mg/dL 70-110 H Lab Interpretation (test cod e = 34666-8) Abnormal [facility] GLUCOSE (AUTOMATED)2024-06-24 22:08:33* Test Item Value Reference Range Interpretation Comme nts POCT GLU (test code = 0944051297) 162 mg/dL 70-110 H Lab Interpretation (test cod e = 96790-3) Abnormal [facility] GLUCOSE (AUTOMATED)2024-06-24 17:10:12* Test Item Value Reference Range Interpretation Comme nts POCT GLU (test code = 7057893812) 187 mg/dL 70-110 H Lab Interpretation (test cod e = 22413-5) Abnormal [facility] GLUCOSE (AUTOMATED)2024-06-24 13:28:01* Test Item Value Reference Range Interpretation Comme [facility] POCT GLU (test code = 7442487133) 160 mg/dL 70-110 H Lab Interpretation (test cod e = 54644-6) Abnormal [facility] GLUCOSE (AUTOMATED)2024-06-24 01:00:38* Test Item Value Reference Range Interpretation Comme [facility] POCT GLU (test code = 4451204244) 95 mg/dL 70-110 Lab Interpretation (test cod e = 78528-6) Normal [facility] Arterial Blood Gas.2024-06-23 22:45:24* Test Item Value Reference Range Interpretation Comme [facility] PH (test code = 2) 7.42 7.35-7.45 PCO2 (test code = 8645321725) 42 35-45 PO2 (test code = 2818478853) 90 80-100 HCO3 (test code = 7194018806) 27 22-26 H BE (test code = 1146133069) 2.3 -3.0-3.0 Lab Interpretation (test cod e = 43039-5) [facility]normal [facility]an[facility] (TTE) [id number] 22:12:07* Test Item Value Reference Range Interpretation Comme [facility] Height (test code = 2614282025) 70 in Weight (test code = 5129830839) 202 lbs Systolic BP (test code = 9628177803) 187 mmHg Diastolic BP (test code = 4797436277) 89 mmHg Heart Rate (test code = 9795352548) 84 bpm LV GLS Endo Peak A2C () (test code = 0600914169) -22.00 % LV GLS Endo Peak A3C () (test code = 7815972629) -20.60 % LV GLS Endo Peak A4C () (test code = 5461826679) -24.20 % LV GLS Endo Peak Avg () (test code = 7271141422) -22.30 % BSA (test code = 9153189304) 2.10 m2 Ao root diam (test code = 5589290592) 4.10 cm Aortic root (test code = 1987515953) 4.1 cm Ao root annulus (test code = 8320615988) 4.1 cm LVOT diameter (test code = 0997968685) 2.02 cm LVOT area (test code = 9351804844) 3.20 cm2 LA size (test code = 4801753732) 2.9 cm LVIDD (test code = 5222786372) 4.20 cm Left Ventricular End Diastolic Volume by Teichholz Method (test code = 6386565) 77.8 mL IVS (test code = 9937050861) 0.97 cm Interventricular Septum Diastolic Thickness by 2D (test code = 0507276) 0.97 cm LVPWD (test code = 2151278637) 0.99 cm PW (test code = 9044589282) 0.99 cm 0.6-1.1 EF(Teich) (test code = 0648634727) 63.90 % LVIDS (test code = 0688538325) 2.70 cm Left Ventricular End Systolic Volume by Teichholz Method (test code = 7895499) 28.1 mL FS (test code = 4745346783) 34 % EF - 2D (test code = 60040317) 63.90 % LAV(MOD-sp4) (test code = 5312820592) 70.90 mL E wave decelartion time (test code = 0879976976) 0.25 s MV Peak A Delfino (test code = 3283751628) 117.4 cm/s MV stenosis pressure 1/2 time (test code = 6886394037) 71.2 ms MV Prop V (test code = 8941520163) 40.80 cm/s MV E/e' septal (test code = 2785933993) 8.2 cm/s Tapse (test code = 8034696153) 2.09 cm LVOT stroke volume (test code = 5919511857) 94.10 cm3 LVOT peak delfino (test code = 8079005473) 126.8 cm/s LVOT mn grad (test code = 5801790008) 3.4 mmHg AV LVOT peak gradient (test code = 6443359602) 6.4 mmHg LVOT peak VTI (test code = 9033128757) 29.4 cm LV V1 mean (test code = 7836446906) 87.90 cm/s Aortic valve mean velocity (test code = 7356105193) 102.8 cm/s Ao peak delfino (test code = 2790790667) 154.7 cm/s Ao VTI (test code = 8408913293) 32.2 cm AV area by cont VTI (test code = 5101272154) 2.9 cm2 AV area peak delfino (test code = 6054613198) 2.6 cm2 Ao max PG (test code = 4468790958) 9.60 mm[Hg] AV peak gradient (test code = 1766466924) 9.6 mmHg AV valve area (test code = 0659212163) 2.90 cm2 AV mean gradient (test code = 9277540024) 4.7 mmHg Radiology Study observation (narrative) (test code = 76339-0) RJ (test code = RJ) ?Left?Ventricle: Left [...] color flow Doppler, spectral Doppler and strain. [facility] GLUCOSE (AUTOMATED)2024-06-23 22:04:17* Test Item Value Reference Range Interpretation Comme nts POCT GLU (test code = 2967940523) 120 mg/dL 70-110 H Lab Interpretation (test cod e = 42151-4) [facility]normal [facility]cosylated Hemoglobin (A1C)2024-06-23 19:21:32* Test Item Value Reference Range Interpretation Comme nts HGB A1C (test code = 4548-4) 7.5 % 4.0-5.7 H RJ (test code = RJ) Reference RangesNormal: <5.7%Prediabetes: 5.7 - 6.4%Diabetes: > 6.5% Lab Interpretation (test code = 76174-9) [facility] CERV[facility] SP[facility] WO [id number] 18:09:29CT CERVICAL SPINE WO CONTRAST HISTORY: ?Neck [...] notable at C5-C7. The prevertebral soft tissues areunremarkable.[facility] HEAD WO [id number] 18:05:47EXAM: CT HEAD WO CONTRAST HISTORY: 69 [...] contusion/small hematoma. calvarium and central skullbase are unremarkable.[facility]Troponin I 2024-06-23 17:58:20* Test Item Value Reference Range Interpretation Comme [facility] TROPONIN I (test code = 4466266965) <=0.034 RJ (test code = RJ) Reference [...] of biotin. Lab Interpretation (test code = 10817-8) Normal [facility]oundN-Terminal Xjb-[id number] 17:55:37* Test Item Value Reference Range Interpretation Comme [facility] NT-proBNP (test code = 80318-7) 257 pg/mL <=125 RJ (test code = RJ) Result Indeterminate-Consid er causes of NT-proBNP elevation other than Heart failure such as acute coronary syndrome, pulmonary embolism, pulmonary hypertension, sepsis, stroke, and renal dysfunction. Lab Interpretation (test code = 44857-2) Abnormal [facility]oundProthrombin Time / [id number] 17:48:39* Test Item Value Reference Range Interpretation Comme [facility] PROTIME PATIENT (test code = 5964-2) 12.8 10.1-12.6 H INR (test code = 6301-6) 1.1 Normal INR <1.1; Warfarin Therapeutic range 2.0 to 3.0 or 2.5 to 3.5, depending upon the indications. Lab Interpretation (test code = 03486-7) Abnormal [facility]oundActivated Partial Thrmplas [id number] 17:48:39* Test Item Value Reference Range Interpretation Comme [facility] APTT Patient (test code = 3173-2) 32 26-36 RJ (test code = RJ) The [facility] patient population mean normal value for aPTT is 30 seconds. Lab Interpretation (test code = 62022-9) Normal [facility]oundComp. Metabolic Panel (02032)2024-06-23 17:46:57* Test Item Value Reference Range Interpretation Comme nts NA (test code = 5860891859) 139 mmol/L 135-145 K (test code = 9047994369) 3.5 3.5-5.0 CL (test code = 8704738439) 102 mmol/L 98-108 CO2 TOTAL (test code = 0047006194) 27 mmol/L 23-31 AGAP (test code = 2214445983) 10 2-16 BUN (test code = 8017536737) 25 mg/dL 7-23 H GLUCOSE (test code = 6467611347) 242 mg/dL 70-110 H CREATININE (test code = 2160-0) 1.00 mg/dL 0.60-1.25 TOTAL BILI (test code = 5662110767) 0.5 mg/dL 0.1-1.1 CALCIUM (test code = 0825890772) 8.8 mg/dL 8.6-10.6 T PROTEIN (test code = 5896879043) 7.3 g/dL 6.3-8.2 ALBUMIN (test code = 7733326053) 3.9 g/dL 3.5-5.0 ALK PHOS (test code = 7851578825) 141 U/L 34-122 H ALTv (test code = 1742-6) 16 U/L 5-50 AST(SGOT) (test code = 1519938580) 24 U/L 13-40 eGFR (test code = 94540-2) 81.0 mL/min/1.73m2 CKD-EPI eGFR (2020). Assuming creatinine has been stable day-to-day for at least three months, the eGFR indicates Category G2 (60 - 89 mL/min/1.73 m2) Lab Interpretation (test code = 62645-8) Abnormal [facility] with [id number] 17:38:39* Test Item Value Reference Range Interpretation [...] 31.6 g/dL 31.2-35.0 RDW-SD (test code = 73419-8) 44.2 fL 38.5-51.6 RDW-CV (test code = 788-0) 13.5 % 12.1-15.4 PLT (test code = 777-3) 346 150-328 H MPV (test code = 83972-5) 9.4 fL 9.8-13.0 L NRBC/100 WBC (test code = 9223375349) 0.0 0.0-10.0 NRBC x10^3 (test code = 5650514766) See_Comment [Automated messa ge] The system which generated this result transmitted reference range: 10*3/?L. The reference range was not used to interpret this result as normal/abnormal. GRAN MAT (NEUT) % (test code = 770-8) 74.6 % IMM GRAN % (test code = 7208395063) 1.00 % LYMPH % (test code = 736-9) 15.2 % MONO % (test code = 5905-5) 7.7 % EOS % (test code = 713-8) 1.2 % BASO % (test code = 706-2) 0.3 % GRAN MAT x10^3(ANC) (test code = 4069372500) 6.71 10*3/uL 1.99-6.95 IMM GRAN x10^3 (test code = 6236805099) 0.09 10*3/uL 0.00-0.06 H LYMPH x10^3 (test code = 731-0) 1.37 10*3/uL 1.09-3.23 MONO x10^3 (test code = 742-7) 0.69 10*3/uL 0.36-1.02 EOS x10^3 (test code = 711-2) 0.11 10*3/uL 0.06-0.53 BASO x10^3 (test code = 704-7) 0.03 10*3/uL 0.01-0.09 Lab Interpretation (test code = 32602-5) [facility] [id number] 17:16:12* Test Item Value Reference Range Interpretation Comme [facility] LACTIC ACID (test code = 6945970131) 1.94 mmol/L 0.50-2.20 Lab Interpretation (test cod e = 21401-2) Normal [facility] [id number] 13:27:56* Test Item Value Reference Range Interpretation Comme nts Blood Culture-Aerobic (test code = 88075-3) Culture positive. See Blood Culture Workup for additional information. No growth AA Previous preliminary verified result was Order in Process on 06/19/2024 at 1801 CDT Blood Culture-Anaerobic (test code = 36801-6) Culture positive. See Blood Culture Workup for additional information. No growth AA Previous preliminary verified result was Order in Process on 06/19/2024 at 1801 CDT Lab Interpretation (test code = 19687-6) [facility] POS[facility] BLOOD PATHOGENS DNA ESIMC-[id number] 19:17:54* Test Item Value Reference Range Interpretation Comments Staphylococcus aureus (test code = 40850-8) Positive Negative A mecA (test code = 85682-4) Positive Negative A RJ (test code = RJ) MRSA detected by DNA probe. ?See blood culture result for additionalsusceptibility testing information. Preferred therapy for MRSA bacteremia is vancomycin. Infectious Diseases consultation is recommended. Please contact the Antimicrobial Stewardship Program with questions.[facility] Pager: ?[phone] See blood culture result for additional information. Testing included eleven identification and three resistancemarker targets. Lab Interpretation (test code = 31526-6) [facility]normal [facility])2024-06-19 21:59:53* Test Item Value Reference Range Interpretation Comme nts POCT GLU (test code = 4270172690) 93 mg/dL 70-110 Lab Interpretation (test cod e = 05142-3) Normal [facility]2024-06-19 21:29:59* Test Item Value Reference Range Interpretation Comme [facility] POCT GLU (test code = 9393261193) 58 mg/dL 70-110 L Lab Interpretation (test cod e = 44950-3) [facility]normal [facility]-Terminal Rxs-[id number] 20:03:23* Test Item Value Reference Range Interpretation Comme [facility] NT-proBNP (test code = 94483-6) 269 pg/mL <=125 RJ (test code = RJ) Result Indeterminate-Consid er causes of NT-proBNP elevation other than Heart failure such as acute coronary syndrome, pulmonary embolism, pulmonary hypertension, sepsis, stroke, and renal dysfunction. Lab Interpretation (test code = 40925-2) Abnormal [facility]. Metabolic Panel (34317)2024-06-19 19:54:20* Test Item Value Reference Range Interpretation Comme [facility] NA (test code = 3771938400) 139 mmol/L 135-145 K (test code = 0804710483) 3.7 mmol/L 3.5-5.0 CL (test code = 9433024737) 104 mmol/L 98-108 CO2 TOTAL (test code = 3083430748) 29 mmol/L 23-31 AGAP (test code = 7912006223) 6 2-16 BUN (test code = 3307977493) 20 mg/dL 7-23 GLUCOSE (test code = 6732523771) 70 mg/dL 70-110 CREATININE (test code = 2160-0) 0.94 mg/dL 0.60-1.25 TOTAL BILI (test code = 5328782736) 1.0 mg/dL 0.1-1.1 CALCIUM (test code = 2805568771) 8.9 mg/dL 8.6-10.6 T PROTEIN (test code = 2922091011) 7.1 g/dL 6.3-8.2 ALBUMIN (test code = 1755598083) 3.5 g/dL 3.5-5.0 ALK PHOS (test code = 7556848616) 136 U/L 34-122 H ALTv (test code = 1742-6) 14 U/L 5-50 AST(SGOT) (test code = 2493564776) 29 U/L 13-40 eGFR (test code = 13637-5) 87.2 mL/min/1.73m2 CKD-EPI eGFR (2020). Assuming creatinine has been stable day-to-day for at least three months, the eGFR indicates Category G2 (60 - 89 mL/min/1.73 m2) Lab Interpretation (test code = 36052-5) [facility]normal [facility] CHEST 1 [id number] 19:34:26PROCEDURE: XR CHEST 1 VW 06/19/2024 2:07 PM CLINICAL INDICATION: hallucination COMPARISON: Radiograph of 04/03/2023 for FINDINGS: The lungs are hypoventilated which results and crowding of bronchovascularbundles. No lung consolidation. There is no pleural effusion. ?Nopneumothorax. The cardiac size is normal. No aggressive osseous lesion.[facility] MoundCbc with [id number] 19:29:38* Test Item Value Reference Range Interpretation [...] 32.7 g/dL 31.2-35.0 RDW-SD (test code = 68202-1) 43.8 fL 38.5-51.6 RDW-CV (test code = 788-0) 13.5 % 12.1-15.4 PLT (test code = 777-3) 300 150-328 MPV (test code = 24745-9) 9.5 fL 9.8-13.0 L NRBC/100 WBC (test code = 2075613083) 0.0 0.0-10.0 NRBC x10^3 (test code = 1324186991) See_Comment [Automated [employer]] The system which generated this result transmitted reference range: 10*3/?L. The reference range was not used to interpret this result as normal/abnormal. GRAN MAT (NEUT) % (test code = 770-8) 76.5 % IMM GRAN % (test code = 1228958567) 0.70 % LYMPH % (test code = 736-9) 12.6 % MONO % (test code = 5905-5) 8.4 % EOS % (test code = 713-8) 1.4 % BASO % (test code = 706-2) 0.4 % GRAN MAT x10^3(ANC) (test code = 5479912557) 6.95 10*3/uL 1.99-6.95 IMM GRAN x10^3 (test code = 1988499165) 0.06 10*3/uL 0.00-0.06 LYMPH x10^3 (test code = 731-0) 1.14 10*3/uL 1.09-3.23 MONO x10^3 (test code = 742-7) 0.76 10*3/uL 0.36-1.02 EOS x10^3 (test code = 711-2) 0.13 10*3/uL 0.06-0.53 BASO x10^3 (test code = 704-7) 0.04 10*3/uL 0.01-0.09 Lab Interpretation (test code = 90795-4) Abnormal [facility] MoundLactic Acid Whole [id number] 19:15:48* Test Item Value Reference Range Interpretation Comme nts LACTIC ACID (test code = 9162062240) 1.12 mmol/L 0.50-2.20 Lab Interpretation (test cod e = 29433-0) Normal [facility] HEAD WO [id number] 00:30:51FULL RESULT: Examination: CT HEAD WO CONTRAST on 06/16/2024 7:03 PM Clinical Indication: Daily fallsComparison: 06/15/2024, 24 hour prior Technique: Noncontrast imaging was obtained from base to vertex. Findings: Relative to the previous day's exam, there is no interval changeand no evidence of hemorrhage or other acute or traumatic lesion.[facility]. Metabolic Panel (14675)2024-06-16 00:49:02* Test Item Value Reference Range Interpretation Comme nts NA (test code = 6233787233) 136 mmol/L 135-145 K (test code = 6631042341) 4.2 mmol/L 3.5-5.0 CL (test code = 6964954514) 103 mmol/L 98-108 CO2 TOTAL (test code = 0301139754) 28 mmol/L 23-31 AGAP (test code = 4499654304) 5 2-16 BUN (test code = 3599021705) 21 mg/dL 7-23 GLUCOSE (test code = 4264691724) 88 mg/dL 70-110 CREATININE (test code = 2160-0) 0.97 mg/dL 0.60-1.25 TOTAL BILI (test code = 6666647936) 1.0 mg/dL 0.1-1.1 CALCIUM (test code = 1571557322) 8.6 mg/dL 8.6-10.6 T PROTEIN (test code = 6503695196) 6.8 g/dL 6.3-8.2 ALBUMIN (test code = 7283699666) 3.4 g/dL 3.5-5.0 L ALK PHOS (test code = 2727755869) 141 U/L 34-122 H ALTv (test code = 1742-6) 14 U/L 5-50 AST(SGOT) (test code = 2624580895) 23 U/L 13-40 eGFR (test code = 41326-7) 84.0 mL/min/1.73m2 CKD-EPI eGFR (2020). Assuming creatinine has been stable day-to-day for at least three months, the eGFR indicates Category G2 (60 - 89 mL/min/1.73 m2) Lab Interpretation (test code = 99330-4) [facility]normal [facility]oundD-Ebajf0318-35-87 00:45:25* Test Item Value Reference Range Interpretation Comments D-DIMER (test code = 8606423335) 1.38 See_Comment H [Automated message] The system [...] a diagnosis. Lab Interpretation (test code = 56764-3) Abnormal [facility] with [id number] 00:34:02* Test Item Value Reference Range Interpretation [...] 33.1 g/dL 31.2-35.0 RDW-SD (test code = 34559-8) 43.0 fL 38.5-51.6 RDW-CV (test code = 788-0) 13.2 % 12.1-15.4 PLT (test code = 777-3) 241 150-328 MPV (test code = 63481-7) 9.6 fL 9.8-13.0 L NRBC/100 WBC (test code = 6582427467) 0.0 0.0-10.0 NRBC x10^3 (test code = 1776114098) See_Comment [Automated [employer]] The system which generated this result transmitted reference range: 10*3/?L. The reference range was not used to interpret this result as normal/abnormal. GRAN MAT (NEUT) % (test code = 770-8) 77.2 % IMM GRAN % (test code = 9594424557) 0.40 % LYMPH % (test code = 736-9) 11.2 % MONO % (test code = 5905-5) 10.1 % EOS % (test code = 713-8) 0.9 % BASO % (test code = 706-2) 0.2 % GRAN MAT x10^3(ANC) (test code = 4850931398) 8.18 10*3/uL 1.99-6.95 H IMM GRAN x10^3 (test code = 4724785931) 0.04 10*3/uL 0.00-0.06 LYMPH x10^3 (test code = 731-0) 1.18 10*3/uL 1.09-3.23 MONO x10^3 (test code = 742-7) 1.07 10*3/uL 0.36-1.02 H EOS x10^3 (test code = 711-2) 0.09 10*3/uL 0.06-0.53 BASO x10^3 (test code = 704-7) 0.01-0.09 Lab Interpretation (test code = 83048-6) Abnormal [facility]oundLactic Acid Whole [id number] 00:22:09* Test Item Value Reference Range Interpretation Comme nts LACTIC ACID (test code = 9969142332) 1.33 mmol/L 0.50-2.20 Lab Interpretation (test cod e = 69691-5) Normal [facility] WO [id number] 23:53:17EXAM: CT HEAD WO CONTRAST HISTORY: 69 [...] Comme nts POCT GLU (test code = 9925901734) 254 mg/dL 70-110 H Lab Interpretation (test cod e = 46921-7) Abnormal [facility] GLUCOSE (AUTOMATED)2024-04-06 09:35:12* Test Item Value Reference Range Interpretation Comme nts POCT GLU (test code = 7618334010) 349 mg/dL 70-110 H Lab Interpretation (test cod e = 83214-4) Abnormal [facility] GLUCOSE (AUTOMATED)2024-04-06 08:34:06* Test Item Value Reference Range Interpretation Comme nts POCT GLU (test code = 0929463602) 299 mg/dL 70-110 H Lab Interpretation (test cod e = 45153-4) Abnormal [facility] GLUCOSE (AUTOMATED)2024-04-06 07:58:40* Test Item Value Reference Range Interpretation Comme nts POCT GLU (test code = 9036156999) 446 mg/dL 70-110 H Lab Interpretation (test cod e = 79000-4) Abnormal [facility]. Metabolic Panel (80186)2024-04-06 07:47:06* Test Item Value Reference Range Interpretation Comme nts NA (test code = 2323646172) 126 mmol/L 135-145 L K (test code = 4268714160) 4.4 mmol/L 3.5-5.0 CL (test code = 4620426147) 93 mmol/L 98-108 L CO2 TOTAL (test code = 0400085243) 27 mmol/L 23-31 AGAP (test code = 5571395867) 6 2-16 BUN (test code = 8977061311) 21 mg/dL 7-23 GLUCOSE (test code = 8327549224) 518 mg/dL 70-110 HH CREATININE (test code = 2160-0) 1.08 mg/dL 0.60-1.25 TOTAL BILI (test code = 7022394549) 0.7 mg/dL 0.1-1.1 CALCIUM (test code = 4950304076) 8.1 mg/dL 8.6-10.6 L T PROTEIN (test code = 0635569138) 6.6 g/dL 6.3-8.2 ALBUMIN (test code = 0125784522) 3.5 g/dL 3.5-5.0 ALK PHOS (test code = 6869329885) 160 U/L 34-122 H ALTv (test code = 1742-6) 15 U/L 5-50 AST(SGOT) (test code = 4523834126) 33 U/L 13-40 eGFR (test code = 33834-7) 73.8 mL/min/1.73m2 CKD-EPI eGFR (2020). Assuming creatinine has been stable day-to-day for at least three months, the eGFR indicates Category G2 (60 - 89 mL/min/1.73 m2) Lab Interpretation (test code = 89961-5) [facility]normal [facility] MoundMagnesium2024-05-15 07:44:19* Test Item Value Reference Range Interpretation Comme nts MAGNESIUM (test code = 8857999320) 1.6 mg/dL 1.7-2.4 L Lab Interpretation (test cod e = 53235-5) Abnormal [facility]2024-04-06 07:36:55* Test Item Value Reference Range Interpretation Comme nts POCT GLU (test code = 0212894757) 476 mg/dL 70-110 HH Lab Interpretation (test cod e = 38024-7) Abnormal [facility] with [id number] 07:23:19* Test Item Value Reference Range Interpretation [...] 34.6 g/dL 31.2-35.0 RDW-SD (test code = 32061-3) 39.8 fL 38.5-51.6 RDW-CV (test code = 788-0) 12.2 % 12.1-15.4 PLT (test code = 777-3) 251 150-328 MPV (test code = 17743-7) 10.5 fL 9.8-13.0 NRBC/100 WBC (test code = 5778540356) 0.0 0.0-10.0 NRBC x10^3 (test code = 1963133756) See_Comment [Automated [employer]] The system which generated this result transmitted reference range: 10*3/?L. The reference range was not used to interpret this result as normal/abnormal. GRAN MAT (NEUT) % (test code = 770-8) 76.0 % IMM GRAN % (test code = 5902123337) 0.90 % LYMPH % (test code = 736-9) 11.5 % MONO % (test code = 5905-5) 10.5 % EOS % (test code = 713-8) 0.8 % BASO % (test code = 706-2) 0.3 % GRAN MAT x10^3(ANC) (test code = 9324892122) 9.08 10*3/uL 1.99-6.95 H IMM GRAN x10^3 (test code = 2840749962) 0.11 10*3/uL 0.00-0.06 H LYMPH x10^3 (test code = 731-0) 1.38 10*3/uL 1.09-3.23 MONO x10^3 (test code = 742-7) 1.26 10*3/uL 0.36-1.02 H EOS x10^3 (test code = 711-2) 0.10 10*3/uL 0.06-0.53 BASO x10^3 (test code = 704-7) 0.04 10*3/uL 0.01-0.09 Lab Interpretation (test code = 89181-3) Abnormal [facility] GLUCOSE (AUTOMATED)2024-04-06 06:45:34* Test Item Value Reference Range Interpretation Comme nts POCT GLU (test code = 2666003775) 495 mg/dL 70-110 HH Lab Interpretation (test cod e = 03050-7) [facility]normal [facility] WO [id number] 20:17:39EXAMS: CT HEAD WO CONTRAST, CT CERVICAL [...] C5-C6 and C6-C7, unchanged.[facility]CT CERVICAL SPINE WO [id number] 20:17:39EXAMS: CT HEAD WO CONTRAST, CT CERVICAL [...] C5-C6 and C6-C7, unchanged.[facility] MoundAmmonia, [id number] 19:25:25* Test Item Value Reference Range Interpretation Comme nts AMMONIA (test code = 6656531557) 9-33 L Lab Interpretation (test cod e = 69594-9) Abnormal [facility]XR FOOT 3+ VW [id number] 17:22:17XR FOOT 3+ VW RIGHT 04/03/2024 10:15 AM History: r/o fx/osteo midfoot Comparison: None Findings: 3 views of the right foot are received for interpretation. There is no fracture or dislocation. Soft tissues are unremarkable. Thereare no radiopaque foreign bodies. Joint spaces are preserved.[facility]XR FOOT 3+ VW [id number] 17:22:17XR FOOT 3+ VW RIGHT 04/03/2024 10:15 AM History: r/o fx/osteo midfoot Comparison: None Findings: 3 views of the right foot are received for interpretation. There is no fracture or dislocation. Soft tissues are unremarkable. Thereare no radiopaque foreign bodies. Joint spaces are preserved.[facility]XR CHEST 1 [id number] 17:18:12 XR CHEST 1 VW HISTORY: ?r/o CHF/infiltrate COMPARISON: March 22, 2024 FINDINGS: The patient is slightly rotated on the film. ?There is noinfiltrate or pleural effusion. ?The cardiomediastinal silhouette is withinnormal limits. ?There is no pneumothorax.[facility] MoundTROPONIN [id number] 16:54:12* Test Item Value Reference Range Interpretation Comme nts TROPONIN I (test code = 7097886749) 0.006 ng/mL <=0.034 RJ (test code = [...] of biotin. Lab Interpretation (test code = 91447-5) Normal [facility]oundN-TERMINAL [id number]-[id number] 16:54:12* Test Item Value Reference Range Interpretation Comme [facility] NT-proBNP (test code = 55414-1) 302 pg/mL <=125 RJ (test code = RJ) Result Indeterminate-Consid er causes of NT-proBNP elevation other than Heart failure such as acute coronary syndrome, pulmonary embolism, pulmonary hypertension, sepsis, stroke, and renal dysfunction. Lab Interpretation (test code = 87506-5) Abnormal [facility] MoundETHANOL2024-05-12 16:53:42 ALCOHOL<10mg/dL04/03/2024 11:53 AM [facility] LABORATORY SERVICESToxic Greater than or equal to 80 mg/dL. NOTE: Whole blood values are approximately 10% to 15% lower than serum and plasma.[facility]oundETHANOL2024-05-12 16:53:42ALCOHOL<10mg/dL04/03/2024 11:53 AM CDTUTMB LABORATORY SERVICESToxic Greater than or equal to 80 mg/dL. NOTE: Whole blood values are approximately 10% to 15% lower than serum and plasma.[facility] Creatine Ehqzgn3316-02-09 16:43:13* Test Item Value Reference Range Interpretation Comme nts CK (test code = 6209261209) 35 U/L 33-194 Lab Interpretation (test cod e = 62930-6) Normal [facility] MoundPhosphorus2024-05-12 16:43:13* Test Item Value Reference Range Interpretation Comme nts PHOSPHORUS (test code = 1389802502) 3.6 mg/dL 2.5-5.0 Lab Interpretation (test cod e = 83909-2) Normal [facility]oundPhosphorus2024-05-12 16:43:13* Test Item Value Reference Range Interpretation Comme nts PHOSPHORUS (test code = 2258484135) 3.6 mg/dL 2.5-5.0 Lab Interpretation (test cod e = 77515-4) Normal [facility]oundCreatine Hojhla1329-71-80 16:43:13* Test Item Value Reference Range Interpretation Comme nts CK (test code = 4529246157) 35 U/L 33-194 Lab Interpretation (test cod e = 71611-0) Normal [facility]oundCOMP. METABOLIC PANEL (54899)2024-04-03 16:43:12* Test Item Value Reference Range Interpretation Comme nts NA (test code = 1133313617) 132 mmol/L 135-145 L K (test code = 1169023376) 4.4 mmol/L 3.5-5.0 Slight hemolysis CL (test code = 1906110008) 97 mmol/L 98-108 L CO2 TOTAL (test code = 1486970851) 29 mmol/L 23-31 AGAP (test code = 1272806153) 6 2-16 BUN (test code = 0321553223) 17 mg/dL 7-23 Slight hemolysis GLUCOSE (test code = 5543815739) 353 mg/dL 70-110 H CREATININE (test code = 2160-0) 0.89 mg/dL 0.60-1.25 TOTAL BILI (test code = 6258621334) 0.9 mg/dL 0.1-1.1 CALCIUM (test code = 3497296608) 9.0 mg/dL 8.6-10.6 T PROTEIN (test code = 2146211761) 6.6 g/dL 6.3-8.2 ALBUMIN (test code = 6100240871) 3.7 g/dL 3.5-5.0 ALK PHOS (test code = 8139944077) 118 U/L 34-122 Slight hemolysis ALTv (test code = 1742-6) 14 U/L 5-50 AST(SGOT) (test code = 6243000598) 19 U/L 13-40 Slight hemolysis eGFR (test code = 76128-9) 92.2 mL/min/1.73m2 CKD-EPI eGFR (2020). Assuming creatinine has been stable day-to-day for at least three months, the eGFR indicates Category G1 (>= 90 mL/min/1.73 m2) Lab Interpretation (test code = 13827-8) Abnormal [facility] MoundMagnesium2024-05-12 16:43:12* Test Item Value Reference Range Interpretation Comme nts MAGNESIUM (test code = 5703010766) 1.6 mg/dL 1.7-2.4 L Lab Interpretation (test cod e = 30348-8) Abnormal [facility] WITH [id number] 16:35:09* Test Item Value Reference Range Interpretation [...] 34.0 g/dL 31.2-35.0 RDW-SD (test code = 68853-1) 39.7 fL 38.5-51.6 RDW-CV (test code = 788-0) 12.3 % 12.1-15.4 PLT (test code = 777-3) 258 150-328 MPV (test code = 41690-8) 10.0 fL 9.8-13.0 NRBC/100 WBC (test code = 2612403225) 0.0 0.0-10.0 NRBC x10^3 (test code = 4534714755) See_Comment [Automated [employer]] The system which generated this result transmitted reference range: 10*3/?L. The reference range was not used to interpret this result as normal/abnormal. GRAN MAT (NEUT) % (test code = 770-8) 81.2 % IMM GRAN % (test code = 7322782138) 0.70 % LYMPH % (test code = 736-9) 11.3 % MONO % (test code = 5905-5) 6.5 % EOS % (test code = 713-8) 0.1 % BASO % (test code = 706-2) 0.2 % GRAN MAT x10^3(ANC) (test code = 0184907861) 9.37 10*3/uL 1.99-6.95 H IMM GRAN x10^3 (test code = 9326091814) 0.08 10*3/uL 0.00-0.06 H LYMPH x10^3 (test code = 731-0) 1.30 10*3/uL 1.09-3.23 MONO x10^3 (test code = 742-7) 0.75 10*3/uL 0.36-1.02 EOS x10^3 (test code = 711-2) 0.06-0.53 L BASO x10^3 (test code = 704-7) 0.01-0.09 Lab Interpretation (test code = 99878-5) Abnormal [facility] MoundLatnic Acid Whole Lwewl8394-92-04 16:30:22* Test Item Value Reference Range Interpretation Comme [facility] LACTIC ACID (test code = 1903267358) 1.63 mmol/L 0.50-2.20 QUES Lab Interpretation (test cod e = 82652-7) Normal [facility] GLUCOSE(AGE >30DAYS)2024-04-03 15:46:00* Test Item Value Reference Range Interpretation Comme nts POCT Glu (age>30days) (test code = 3342) 305 mg/dL 70-110 A Lab Interpretation (test cod e = 52438-8) Abnormal [facility] GLUCOSE(AGE >30DAYS)2024-04-03 15:46:00* Test Item Value Reference Range Interpretation Comme nts POCT Glu (age>30days) (test code = 3342) 305 mg/dL 70-110 A Lab Interpretation (test cod e = 63169-0) Abnormal [facility] GLUCOSE (AUTOMATED)2024-04-03 15:44:37* Test Item Value Reference Range Interpretation Comme nts POCT GLU (test code = 5177284824) 305 mg/dL 70-110 H Lab Interpretation (test cod e = 04339-3) Abnormal [facility] GLUCOSE (AUTOMATED)2024-04-01 00:05:36* Test Item Value Reference Range Interpretation Comme nts POCT GLU (test code = 4105652329) 215 mg/dL 70-110 H Lab Interpretation (test cod e = 75408-7) Abnormal [facility] GLUCOSE (AUTOMATED)2024-03-31 23:20:38* Test Item Value Reference Range Interpretation Comme nts POCT GLU (test code = 4847143660) 468 mg/dL 70-110 HH Lab Interpretation (test cod e = 78277-9) Abnormal [facility] HEAD WO [id number] 19:45:11EXAM: CT HEAD WO CONTRAST, CT CERVICAL [...] cervical soft tissues and visualized lung apices areunremarkable.[facility] CERVICAL SPINE WO [id number] 19:45:11EXAM: CT HEAD WO CONTRAST, CT CERVICAL [...] central skull base are unremarkable. CERVICAL SPINE: Mildstraightening of the normal cervical lordosis. The vertebral bodiesare normal in height and in normal alignment. Multilevel degenerativechanges with disc height loss most notable at C5 through C7. No facetfracture or subluxation is present. The craniocervical junction is intact.The prevertebral soft tissues are unremarkable. The visualized cervical soft tissues and visualized lung apices areunremarkable.[facility]XR LUMBAR SPINE 2 [id number] 00:16:22EXAM: XR LUMBAR SPINE 2 VW HISTORY: 69 years-old Male; Provided indication: Right [...] in normal alignment. Theintervertebral disc spaces are preserved.[facility]XR KNEE 3 VW [id number] 22:53:33EXAM: XR KNEE 3 VW RIGHT HISTORY: [...] may be posttraumatic. [facility]XR KNEE 3 VW [id number] 22:53:33EXAM: XR KNEE 3 VW RIGHT HISTORY: [...] may be posttraumatic. [facility] MoundGlycosylated Hemoglobin (A1C)2024-03-22 22:08:29* Test Item Value Reference Range Interpretation Comme [facility] HGB A1C (test code = 4548-4) 12.1 % 4.0-5.7 H RJ (test code = RJ) Reference RangesNormal: <5.7%Prediabetes: 5.7 - 6.4%Diabetes: > 6.5% Lab Interpretation (test code = 50584-5) Abnormal [facility]oundN-TERMINAL [id number] 17:06:26* Test Item Value Reference Range Interpretation Comme [facility] NT-proBNP (test code = 48982-9) 108 pg/mL <=125 Lab Interpretation (test cod e = 51684-5) Normal [facility] MoundTROPONIN [id number] 17:06:26* Test Item Value Reference Range Interpretation Comme nts TROPONIN I (test code = 4317678256) 0.007 ng/mL <=0.034 RJ (test code = [...] of biotin. Lab Interpretation (test code = 05888-0) Normal [facility] MoundHEPATIC FUNCTION PANEL (85974) (ALB,T.PRO,BILI T,BU/BC,ALT,AST,ALK PHOS)2024-03-22 16:57:07* Test Item Value Reference Range Interpretation Comme nts TOTAL BILI (test code = 5869675733) 0.6 mg/dL 0.1-1.1 BILI UNCON (test code = 2213550649) 0.1 mg/dL 0.1-1.1 BILI CONJ (test code = 2058483448) 0.0 mg/dL 0.0-0.3 T PROTEIN (test code = 0369233132) 6.7 g/dL 6.3-8.2 ALBUMIN (test code = 4403160933) 3.7 g/dL 3.5-5.0 ALK PHOS (test code = 2844321971) 102 U/L 34-122 ALTv (test code = 1742-6) 18 U/L 5-50 AST(SGOT) (test code = 1936637847) 24 U/L 13-40 Lab Interpretation (test cod e = 71677-7) [facility]NA, K, CL, CO2, GLUCOSE, BUN, CREATININE, CA)2024-03-22 16:57:07* Test Item Value Reference Range Interpretation Comme nts NA (test code = 1774703366) 137 mmol/L 135-145 K (test code = 7282470232) 3.8 mmol/L 3.5-5.0 CL (test code = 6024245410) 106 mmol/L 98-108 CO2 TOTAL (test code = 1691634863) 24 mmol/L 23-31 AGAP (test code = 9367515288) 7 2-16 BUN (test code = 8303430650) 12 mg/dL 7-23 GLUCOSE (test code = 2630079466) 132 mg/dL 70-110 H CREATININE (test code = 2160-0) 0.97 mg/dL 0.60-1.25 CALCIUM (test code = 1902662460) 8.8 mg/dL 8.6-10.6 eGFR (test code = 32284-4) 84.0 mL/min/1.73m2 CKD-EPI eGFR (2020). Assuming creatinine has been stable day-to-day for at least three months, the eGFR indicates Category G2 (60 - 89 mL/min/1.73 m2) Lab Interpretation (test code = 16012-4) [facility] [id number] 16:57:07* Test Item Value Reference Range Interpretation Comme nts CK (test code = 3367449217) 51 U/L 33-194 Lab Interpretation (test cod e = 17228-0) Normal [facility] WITH [id number] 16:38:44* Test Item Value Reference Range Interpretation [...] 34.2 g/dL 31.2-35.0 RDW-SD (test code = 82410-2) 42.8 fL 38.5-51.6 RDW-CV (test code = 788-0) 13.2 % 12.1-15.4 PLT (test code = 777-3) 259 150-328 MPV (test code = 21467-4) 10.8 fL 9.8-13.0 NRBC/100 WBC (test code = 9387727399) 0.0 0.0-10.0 NRBC x10^3 (test code = 6883301195) See_Comment [Automated [employer] ge] The system which generated this result transmitted reference range: 10*3/?L. The reference range was not used to interpret this result as normal/abnormal. ANDRES HORNE (NEUT) % (test code = 770-8) 72.5 % IMM GRAN % (test code = 7225429673) 1.10 % LYMPH % (test code = 736-9) 13.2 % MONO % (test code = 5905-5) 11.4 % EOS % (test code = 713-8) 1.3 % BASO % (test code = 706-2) 0.5 % GRAN MAT x10^3(ANC) (test code = 1897439076) 6.01 10*3/uL 1.99-6.95 IMM GRAN x10^3 (test code = 9904763415) 0.09 10*3/uL 0.00-0.06 H LYMPH x10^3 (test code = 731-0) 1.09 10*3/uL 1.09-3.23 MONO x10^3 (test code = 742-7) 0.94 10*3/uL 0.36-1.02 EOS x10^3 (test code = 711-2) 0.11 10*3/uL 0.06-0.53 BASO x10^3 (test code = 704-7) 0.04 10*3/uL 0.01-0.09 Lab Interpretation (test code = 23921-2) [facility]normal [facility] [id number] 16:14:04EXAM: XR CHEST 2 03/22/2024 11:01 AM [...] Comme nts POCT GLU (test code = 2513416206) 213 mg/dL 70-110 H Lab Interpretation (test cod e = 53419-8) Abnormal [facility] GLUCOSE (AUTOMATED)2024-03-12 03:47:48* Test Item Value Reference Range Interpretation Comme nts POCT GLU (test code = 1224708086) 258 mg/dL 70-110 H Lab Interpretation (test cod e = 42248-0) [facility]normal [facility]2024-03-12 02:29:49* Test Item Value Reference Range Interpretation Comme nts POCT GLU (test code = 6994719249) 579 mg/dL 70-110 HH Lab Interpretation (test cod e = 67083-5) [facility]12 02:17:22* Test Item Value Reference Range Interpretation Comme nts NA (test code = 6794946247) 130 mmol/L 135-145 L K (test code = 9914265005) 4.4 mmol/L 3.5-5.0 CL (test code = 7282066016) 98 mmol/L 98-108 CO2 TOTAL (test code = 0027235729) 26 mmol/L 23-31 AGAP (test code = 6819499157) 6 2-16 BUN (test code = 3734758069) 24 mg/dL 7-23 H GLUCOSE (test code = 9688487765) 614 mg/dL 70-110 HH CREATININE (test code = 2160-0) 1.21 mg/dL 0.60-1.25 TOTAL BILI (test code = 7562935216) 0.4 mg/dL 0.1-1.1 CALCIUM (test code = 5806382592) 8.6 mg/dL 8.6-10.6 T PROTEIN (test code = 6522638831) 6.1 g/dL 6.3-8.2 L ALBUMIN (test code = 4430744706) 3.5 g/dL 3.5-5.0 ALK PHOS (test code = 2495931064) 107 U/L 34-122 ALTv (test code = 1742-6) 17 U/L 5-50 AST(SGOT) (test code = 2787170943) 16 U/L 13-40 eGFR (test code = 24606-8) 64.4 mL/min/1.73m2 CKD-EPI eGFR (2020). Assuming creatinine has been stable day-to-day for at least three months, the eGFR indicates Category G2 (60 - 89 mL/min/1.73 m2) Lab Interpretation (test code = 34172-2) [facility]normal [facility]rop[facility] [id number] 02:15:00* Test Item Value Reference Range Interpretation Comme nts TROPONIN I (test code = 3871372043) 0.006 ng/mL <=0.034 RJ (test code = [...] of biotin. Lab Interpretation (test code = 49111-1) Normal [facility] [id number] 02:11:59* Test Item Value Reference Range Interpretation Comme nts CK (test code = 0850504144) 32 U/L 33-194 L Lab Interpretation (test cod e = 69173-0) [facility]normal [facility] with [id number] 01:59:02* Test Item Value Reference Range Interpretation [...] 34.2 g/dL 31.2-35.0 RDW-SD (test code = 40031-1) 41.0 fL 38.5-51.6 RDW-CV (test code = 788-0) 12.9 % 12.1-15.4 PLT (test code = 777-3) 231 150-328 MPV (test code = 42670-6) 10.5 fL 9.8-13.0 NRBC/100 WBC (test code = 1358376377) 0.0 0.0-10.0 NRBC x10^3 (test code = 4878441349) See_Comment [Automated messa ge] The system which generated this result transmitted reference range: 10*3/?L. The reference range was not used to interpret this result as normal/abnormal. GRAN MAT (NEUT) % (test code = 770-8) 68.1 % IMM GRAN % (test code = 9585299645) 0.80 % LYMPH % (test code = 736-9) 20.3 % MONO % (test code = 5905-5) 9.3 % EOS % (test code = 713-8) 1.1 % BASO % (test code = 706-2) 0.4 % GRAN MAT x10^3(ANC) (test code = 7727922022) 5.06 10*3/uL 1.99-6.95 IMM GRAN x10^3 (test code = 4229595549) 0.06 10*3/uL 0.00-0.06 LYMPH x10^3 (test code = 731-0) 1.51 10*3/uL 1.09-3.23 MONO x10^3 (test code = 742-7) 0.69 10*3/uL 0.36-1.02 EOS x10^3 (test code = 711-2) 0.08 10*3/uL 0.06-0.53 BASO x10^3 (test code = 704-7) 0.03 10*3/uL 0.01-0.09 Lab Interpretation (test code = 56785-3) Abnormal [facility]. Metabolic Panel (32289)2024-02-10 18:23:57* Test Item Value Reference Range Interpretation Comme nts NA (test code = 2389530725) 135 mmol/L 135-145 K (test code = 7646821786) 4.1 mmol/L 3.5-5.0 CL (test code = 7856931319) 100 mmol/L 98-108 CO2 TOTAL (test code = 3869755713) 27 mmol/L 23-31 AGAP (test code = 1510331369) 8 2-16 BUN (test code = 7184677636) 26 mg/dL 7-23 H GLUCOSE (test code = 1207522361) 209 mg/dL 70-110 H CREATININE (test code = 2160-0) 1.09 mg/dL 0.60-1.25 TOTAL BILI (test code = 0158398709) 1.0 mg/dL 0.1-1.1 CALCIUM (test code = 9301151979) 8.9 mg/dL 8.6-10.6 T PROTEIN (test code = 4191330960) 7.0 g/dL 6.3-8.2 ALBUMIN (test code = 2309464944) 3.5 g/dL 3.5-5.0 ALK PHOS (test code = 8036947163) 122 U/L 34-122 ALTv (test code = 1742-6) 30 U/L 5-50 AST(SGOT) (test code = 0017783013) 34 U/L 13-40 eGFR (test code = 93787-0) 73.0 mL/min/1.73m2 CKD-EPI eGFR (2020). Assuming creatinine has been stable day-to-day for at least three months, the eGFR indicates Category G2 (60 - 89 mL/min/1.73 m2) Lab Interpretation (test code = 05052-3) Abnormal [facility] with [id number] 18:13:28* Test Item Value Reference Range Interpretation [...] 33.9 g/dL 31.2-35.0 RDW-SD (test code = 69635-3) 42.0 fL 38.5-51.6 RDW-CV (test code = 788-0) 12.9 % 12.1-15.4 PLT (test code = 777-3) 287 150-328 MPV (test code = 69519-8) 9.4 fL 9.8-13.0 L NRBC/100 WBC (test code = 5193899815) 0.0 0.0-10.0 NRBC x10^3 (test code = 9794350256) See_Comment [Automated messa ge] The system which generated this result transmitted reference range: 10*3/?L. The reference range was not used to interpret this result as normal/abnormal. GRAN MAT (NEUT) % (test code = 770-8) 77.5 % IMM GRAN % (test code = 2922435404) 1.10 % LYMPH % (test code = 736-9) 11.1 % MONO % (test code = 5905-5) 9.1 % EOS % (test code = 713-8) 0.9 % BASO % (test code = 706-2) 0.3 % GRAN MAT x10^3(ANC) (test code = 1687139604) 8.71 10*3/uL 1.99-6.95 H IMM GRAN x10^3 (test code = 3870364852) 0.12 10*3/uL 0.00-0.06 H LYMPH x10^3 (test code = 731-0) 1.25 10*3/uL 1.09-3.23 MONO x10^3 (test code = 742-7) 1.02 10*3/uL 0.36-1.02 EOS x10^3 (test code = 711-2) 0.10 10*3/uL 0.06-0.53 BASO x10^3 (test code = 704-7) 0.03 10*3/uL 0.01-0.09 Lab Interpretation (test code = 71792-9) [facility]normal [facility] WO [id number] 20:09:29FULL RESULT: Examination: CT HEAD WO CONTRAST [...] or skull base lesions.[facility] LUM[facility] SPINE 3 [id number] 15:24:42EXAM: XR LUMBAR SPINE 3 VW HISTORY: [...] disc spaces are preserved.[facility] ABDOMEN PELVIS WO [id number] 19:42:33HISTORY: ?flank pain with right side swelling COMPARISON:none TECHNIQUE:CT scan of the abdomen and pelvis performed. Contiguous axial CT imageswere obtained without administration of intravenous contrast. ?CT scan doneaccording to ALARA. Technical quality: Technical quality: adequate. FINDINGS: Liver, gallbladder, bile ducts unremarkable. Pancreas atrophic. Spleen normal in size. No adrenal nodule. No renal stones. Doses. Urinary bladder decompressed. No bowel obstruction. Diverticulosis present without diverticulitis. The appendix is normal. No retroperitoneal or mesenteric adenopathy is seen. Inflammatory change in the left upper quadrant involving the omentum. Mostcompatible with omental infarct. No acute bony abnormality.[facility]Comp. Metabolic Panel ([id number])2024-01-30 17:18:01* Test Item Value Reference Range Interpretation Comme nts NA (test code = 4717604774) 139 mmol/L 135-145 K (test code = 1315842277) 3.6 mmol/L 3.5-5.0 CL (test code = 0528888792) 107 mmol/L 98-108 CO2 TOTAL (test code = 6404841932) 27 mmol/L 23-31 AGAP (test code = 4345420633) 5 2-16 BUN (test code = 9867950253) 27 mg/dL 7-23 H GLUCOSE (test code = 9277958477) 118 mg/dL 70-110 H CREATININE (test code = 2160-0) 0.99 mg/dL 0.60-1.25 TOTAL BILI (test code = 0847212107) 0.4 mg/dL 0.1-1.1 CALCIUM (test code = 4810464032) 8.6 mg/dL 8.6-10.6 T PROTEIN (test code = 4682495111) 6.8 g/dL 6.3-8.2 ALBUMIN (test code = 3301531409) 3.6 g/dL 3.5-5.0 ALK PHOS (test code = 8209967314) 105 U/L 34-122 ALTv (test code = 1742-6) 23 U/L 5-50 AST(SGOT) (test code = 1468361907) 27 U/L 13-40 eGFR (test code = 92267-2) 81.9 mL/min/1.73m2 CKD-EPI eGFR (2020). Assuming creatinine has been stable day-to-day for at least three months, the eGFR indicates Category G2 (60 - 89 mL/min/1.73 m2) Lab Interpretation (test code = 06619-8) Abnormal [facility] with [id number] 16:52:14* Test Item Value Reference Range Interpretation [...] 33.3 g/dL 31.2-35.0 RDW-SD (test code = 80466-6) 42.9 fL 38.5-51.6 RDW-CV (test code = 788-0) 13.2 % 12.1-15.4 PLT (test code = 777-3) 290 150-328 MPV (test code = 92818-1) 9.9 fL 9.8-13.0 NRBC/100 WBC (test code = 5185128375) 0.0 0.0-10.0 NRBC x10^3 (test code = 7566551020) See_Comment [Automated messa ge] The system which generated this result transmitted reference range: 10*3/?L. The reference range was not used to interpret this result as normal/abnormal. GRAN MAT (NEUT) % (test code = 770-8) 74.8 % IMM GRAN % (test code = 1366769178) 0.90 % LYMPH % (test code = 736-9) 14.7 % MONO % (test code = 5905-5) 7.8 % EOS % (test code = 713-8) 1.2 % BASO % (test code = 706-2) 0.6 % GRAN MAT x10^3(ANC) (test code = 6340255598) 7.72 10*3/uL 1.99-6.95 H IMM GRAN x10^3 (test code = 7922893826) 0.09 10*3/uL 0.00-0.06 H LYMPH x10^3 (test code = 731-0) 1.52 10*3/uL 1.09-3.23 MONO x10^3 (test code = 742-7) 0.81 10*3/uL 0.36-1.02 EOS x10^3 (test code = 711-2) 0.12 10*3/uL 0.06-0.53 BASO x10^3 (test code = 704-7) 0.06 10*3/uL 0.01-0.09 Lab Interpretation (test code = 99408-1) [facility]normal [facility] 3 [id number] 19:03:44 HISTORY: ?Low back pain. FINDINGS: AP, [...] degenerative disc disease at L2-L3, L3-L4, L4-L5. [facility], Radiant Results Inft User - 02/16/2020 2:04 [...] at L2-L3, L3-L4, L4-L5.[facility] [id number] 13:50:00* Test Item Value Reference Range Interpretation Comme nts POCT Glu (age>30days) (test code = 3342) 181 mg/dL 70-110 A Lab Interpretation (test cod e = 40483-3) Abnormal [facility] Consult Notes Date/Time Note Provider Source 2024-08-24 13:51:19 Associated Order(s): CONSULT CREDIT OPERATIONS PROCESSOR-ADULT Patient refused longterm placement. Kan Hairston RN, BSN [facility] ADC Sledger O [phone] [facility] - Health 2024-08-24 11:40:00 Associated Order(s): CONSULT ADULT PHYSICAL THERAPY Patient agreeable to working with physical therapy. Patient met semi reclined in bed. Recommend nursing staff utilize PT/RN moderate assist to safely assist patient with mobility out of the bed or chair. PHYSICAL THERAPY EVALUATION Consult received, chart reviewed and evaluation complete this date. Patient is referred to PT for evaluation and treatment. Patient is a 69 year old male who presents to hospital for Hypoglycemia [E16.2] Discharge Recommendations: Therapy Needs and Potential: Patient would benefit from continued physical therapy services to address: decline in bed mobility decline in transfers decline in gait and/or balance decreased strength decreased range of motion Challenges to Home Transition: increased risk of falls decreased safety awareness Equipment recommendations: Patient has or access to necessary equipment Current Functional Status and/or Treatment: AM-PAC 6 Clicks (Raw Score 0=Dependent, 24=Independent; Low function Raw Score 0= Dependent, 32=Independent): Raw Score - Basic Mobility : 9 T-Scale Score - Basic Mobility : 25.8 Bed Mobility: Rolling: Minimal Assistance Bridging: Minimal Assistance Cued Pt was only able to perform rolling and bridging activities. Pt needed minimal assist to perform tolerated activities. Dizziness No Transfers: unable to tolerate due to severe pain on B/L LE during movement Cued Pt was unable to tolerate transfer activities due to severe pain on B/L LE Dizziness No Ambulation: patient refused Assessed Pt refused ambulation activities secondary to pain Therapeutic exercise: patient educated in Deep breathing, Fall prevention, General strengthening, and Safety awareness. After session, patient semi reclined in bed. Call button provided. PT informed RN of Pt status. PLAN OF CARE: While in the hospital, PT will follow patient at least 2 times per week,once or twice a day, per patient's tolerance and needs. See below for complete details. 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) 10/12/2019 Cataract OS ONLY Cellulitis of foot, left 04/12/2020 Diabetes Diabetic eye exam 12/01/2019 Added automatically from request for surgery [id number] Dyslipidemia Edema of both legs 02/28/2020 Erectile dysfunction, unspecified erectile dysfunction type 02/28/2020 Essential hypertension 02/28/2020 HTN (hypertension) Hyperlipidemia Obesity (BMI 30-39.9) 03/17/2019 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 Stroke 2017 Type 2 diabetes mellitus with vascular disease 10/12/2019 Upper respiratory tract infection, unspecified type 10/12/2019 PSH: Past Surgical History: Procedure Laterality Date COLONOSCOPY N/A 12/30/2019 Surgeon: Glo Finn MD; Location: [facility] CORNEAL TRANSPLANT,LAMELLAR Bilateral KNEE ARTHROSCOPY 1999 OTHER PENETRATING KERATOPLASTY PHACOEMULSIFICATION OF CATARACT WITH INTRAOCULAR LENS IMPLANT Right 03/17/2019 Surgeon: Virgil Martinez MD; [place] [facility] [place] Living Situation: is homeless DME: Rolling Walker Prior level of Mobility: ambulates with rolling Walker. Suspected ischemic or hemorraghic stroke:No Subjective: Pt with complaints of 10/10 pain on B/L LE Patient/Family Goals: To get better Patient/Family verbalizes understanding of condition: Yes PAIN: -Pain rating before treatment: 10, After treatment: 10 COMMUNICATION Primary Language: Moldovan Able to Verbalize needs: Yes Vision:good; no issues reported Hearing:good; no issues reported ORIENTATION/COGNITION: Oriented to: person, place, and situation Awake: Yes Alert: Yes Dizzy: No Follows Commands: Yes 1-Step Yes Multi-Step Yes Inconsistent: No NEUROLOGICAL Light Touch: within functional limits bilateral LE BALANCE: Sitting: Static: NT Dynamic: NT Standing: Static: NT Dynamic: NT RANGE OF MOTION: deficit: due to pain on bilateral LE STRENGTH: 2/5 (P), bilateral LE ENDURANCE: NT, Room air SKIN INTEGRITY: not intact, Pt seems to have multiple blisters on LE PROBLEM LIST: Decline in bed mobility, Decline in gait, Decline in transfers, Decreased strength, ROM deficits, and Safety awareness deficits ASSESSMENT: Patient is [...] and/or family will demonstrate the followin. Rolling: Supervision Bridging: Supervision 2. Sit to stand: Minimal Assistance using rolling Walker. Stand to sit: Minimal Assistance using rolling Walker. 3. Minimal Assistance with ambulation, Feet: 5 ft initially using least assistive device. Treatment Plan: Evaluation only, Gait training, Therapeutic exercise, Transfer training, Bed mobility training, and Safety education, patient/caregiver education PATIENT EDUCATION: Patient provided with preferred teaching of verbal information and demonstration on role of PT, plan of care, and goals. Shows readiness to learn. Verbal instruction and Demonstration teaching provided. Individual is able to read and verbalizes understanding of teaching provided. Total Time Tx Codes in Minutes: 20 min Total Treatment Time in Minutes: 30 min Kevin Arevalo PT [place] Lic No. 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 Stroke 2017 Type 2 diabetes mellitus with vascular disease 10/12/2019 Upper respiratory tract infection, unspecified type 10/12/2019 Past Surgical History: Procedure Laterality Date COLONOSCOPY N/A 12/30/2019 Surgeon: Glo Finn MD; Location: [facility] CORNEAL TRANSPLANT,LAMELLAR Bilateral KNEE ARTHROSCOPY 1999 OTHER PENETRATING KERATOPLASTY PHACOEMULSIFICATION OF CATARACT WITH INTRAOCULAR LENS IMPLANT Right 03/17/2019 Surgeon: Virgil Martinez MD; Location: [facility] Current Facility-Administered Medications: amoxicillin-clavulanate (AUGMENTIN) 875-125 mg [...] 1,000 mg, IV Piggyback, Q12H ABX, José Copeland MD, Last Rate: 250 mL/hr at 06/29/24 1151, 1,000 mg at 06/29/24 1151 hydralAZINE (APRESOLINE) injection 10 mg, 10 mg, Slow IV Push, Q4HPRN, José Copeland MD lisinopriL (PRINIVIL,ZESTRIL) tablet 20 mg, 20 mg, Oral, BID, José Copeland MD, 20 mg at 06/29/24 075 aspirin EC tablet 81 mg, 81 mg, Oral, DAILY, José Copeland MD, 81 mg at 06/29/24 075 atorvastatin (LIPITOR) tablet 40 mg, 40 mg, Oral, QHS, José Copeland MD, 40 mg at 06/28/242009 furosemide (LASIX) tablet 20 mg, 20 mg, Oral, DAILY, José Copeland MD, 20 mg at 06/29/24 075 gabapentin (NEURONTIN) capsule 100 mg, 100 mg, Oral, TID, José Copeland MD, 100 mg at 06/29/24 075 insulin NPH (HUMULIN N) injection 20 Units, 20 Units, Subcutaneous, BIDAC, José Copeland MD, 20 Units at 06/29/24 0755 ondansetron (ZOFRAN (PF)) injection 4 mg, 4 mg, Slow IV Push, Q6HPRN, José Copeland MD tiZANidine (ZANAFLEX) tablet 4 mg, 4 mg, Oral, Q6HPRN, José Copeland MD acetaminophen (TYLENOL) tablet 650 mg, 650 mg, Oral, Q6HPRN, Raj Garcia DO dextrose 50 % in water (D50W) injection 25 mL, 25 mL, Slow IV Push, PRN, Raj Garcia DO enoxaparin (LOVENOX) injection 40 mg, 40 mg, Subcutaneous, DAILY, Raj Garcia DO, 40 mg at 06/29/24 0755 glucagon (GLUCAGEN DIAGNOSTIC KIT) injection 1 mg, 1 mg, Intramuscular, PRN, Raj Garcia DO Sliding Scale Insulin - Lispro (HumaLOG), , Subcutaneous, TID MEALS+HS, Raj Garcia DO, 4 Units at 06/29/24 1147 No [...] Friends and Family: Not on file Attends Shinto Services: Not on file Active Member of [...] agree with continuing vancomycin as patient has [place] valve will continue this antibiotic for 6 weeks recommend to repeat echocardiogram after finishing the treatment. Diabetes mellitus Anemia of chronic disease PICC line in place Thank you for consult IM-INTERNAL MEDICINE STAFF [facility] 2024-06-27 14:09:49 Associated Order(s): CONSULT CREDIT OPERATIONS PROCESSOR-ADULT Referral submitted to Glo Wright for SNF placement. Awaiting determination. HAIDER Munoz Forest Fire Officer - Care Management [facility] [phone] [email or web address] T [facility] 2024-06-27 11:15:00 Associated Order(s): CONSULT VASCULAR ACCESS [facility] Services PICC LINE CONSULT 69 year old male Indication/Diagnosis: [facility] antibiotics See procedure note. 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 Stroke 2017 Type 2 diabetes mellitus with vascular disease 10/12/2019 Upper respiratory tract infection, unspecified type 10/12/2019 PSH: Past Surgical History: Procedure Laterality Date COLONOSCOPY N/A 12/30/2019 Surgeon: Glo Finn MD; Location: [facility] CORNEAL TRANSPLANT,LAMELLAR Bilateral KNEE ARTHROSCOPY 1998 OTHER PENETRATING KERATOPLASTY PHACOEMULSIFICATION OF CATARACT WITH INTRAOCULAR LENS IMPLANT Right 03/17/2019 Surgeon: Virgil Martinez MD; Location: [facility] Prior Living Situation: is homeless DME: Rolling [...] treatment: does not rate COMMUNICATION Primary Language: Moldovan Able to Verbalize needs: Yes Vision:good; no [...] min Kevin Arevalo PT [place] Lic No. [id number] [facility] Department of Physical Therapy Kevin Arevalo PT [facility] 2024-06-23 22:05:37 Associated Order(s): CONSULT CARDIOLOGY 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 Stroke 2017 Type 2 diabetes mellitus with vascular disease 10/12/2019 Upper respiratory tract infection, unspecified type 10/12/2019 Past Surgical History: Procedure Laterality Date COLONOSCOPY N/A 12/30/2019 Surgeon: Glo Finn MD; Location: [facility] CORNEAL TRANSPLANT,LAMELLAR Bilateral KNEE ARTHROSCOPY 1998 OTHER PENETRATING KERATOPLASTY PHACOEMULSIFICATION OF CATARACT WITH INTRAOCULAR LENS IMPLANT Right 03/17/2019 Surgeon: Virgil Martinez MD; Location: [facility] Family History Problem Relation Age of Onset Cancer Mother Liver Cancer Father lung SOCIAL HISTORY Social History Socioeconomic History Marital status: Tobacco Use Smoking status: Never Smokeless tobacco: Never Substance and Sexual Activity Alcohol use: No Drug use: No ALLERGIES No Known Allergies MEDICATIONS Current Discharge Medication List STOP taking these medications cephALEXin 500 mg capsule Comments: Reason for Stopping: gnzedvvu-mjtjjjfigj-anhzqsdka 3.5mg-400 unit- 5,000 unit/gram topical ointment Comments: [...] 1/2" Syrg Comments: Reason for Stopping: Insulin Roosevelt, Disposable, (PHUC PEN NEEDLE) 32 gauge x [...] 650 mg, 650 mg, Oral, Q6HPRN, Raj Garcia DO cefTRIAXone (ROCEPHIN) 1,000 mg in NaCl 0.9% (NS) 100 mL MINI-BAG, 1,000 mg, IV Piggyback, Q24H ABX, Raj Garcia DO, Stopped at 06/23/24 1638 dextrose 50 % in water (D50W) injection 25 mL, 25 mL, Slow IV Push, PRN, Raj Garcia DO enoxaparin (LOVENOX) injection 40 mg, 40 mg, Subcutaneous, DAILY, Raj Garcia DO, 40 mg at 06/23/24 1811 glucagon (GLUCAGEN DIAGNOSTIC KIT) injection 1 mg, 1 mg, Intramuscular, PRN, Raj Garcia DO Sliding Scale Insulin - Lispro (HumaLOG), , Subcutaneous, TID MEALS+HS, Raj Garcia DO REVIEW OF SYSTEMS: Comprehensive 10-system review [...] Previously noted to be on lisinopril/hydrochlorothiazid e 09/03.5 daily. JAQUELIN: Rx as per primary team. [...] per primary team. Last Two A1C Results (UTMB/, POCT, QUEST) Recent Labs 03/22/24 1046 06/23/24 [...] Ordering referrals and/or communicating with other health special needs child caregiver (when not separately reported), Documenting clinical information in the electronic or other health record, and Independently interpreting results (not separately reported) and/or communicating results to the patient/family/caregiver. Keep up with basic health maintenance including an annual physical examination with your primary physician, appropriate vaccinations (influenza, pneumonia, new shingles vaccination), and other appropriate testing (e.g. EGD, colonoscopy etc). This report was dictated using [employer] and is subject to voice recognition errors. Please excuse any unusual inaccuracies. Thank you for allowing us to participate in the care of Raj Morales. If you have any questions or concerns please feel free to call our office at [phone]. I would be happy to be of further assistance for Raj Morales wellbeing. Voice recognition software has been used to create portions of this document. An attempt to proofread has been made to minimize errors. Please do not hesitate to call with any questions. Alina Edouard MD Community Service Director, Division of Cardiology [facility] T [facility] - Health History and Physical Notes Date/Time Note Provider Source 2024-08-23 20:52:46 MEDICINE [facility] ADMIT H&P Date of Service: 08/23/2024 CHIEF COMPLAINT: confusion, low blood glucose Subjective History of Present Illness 69 yo obese male with pmh of DM, foot cellulitis, HLD, HTN, CVA, MRSA bacteremia, infective endocarditis, E.coli UTI who presents to the ED secondary to low blood sugar. [place] [email or web address] [place]. Apparently, he had fallen and noted to have abrasions on his head and right knee. EMS noted blood sugar was 33 mg/dl. He was given D50 and subsequently placed on D10 drip. He currently complains of right knee. 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 Stroke 2017 Type 2 diabetes mellitus with vascular disease 10/12/2019 Upper respiratory tract infection, unspecified type 10/12/2019 Past Surgical History: Procedure Laterality Date COLONOSCOPY N/A 12/30/2019 Surgeon: Glo Finn MD; Location: [facility] CORNEAL TRANSPLANT,LAMELLAR Bilateral KNEE ARTHROSCOPY 1998 OTHER PENETRATING KERATOPLASTY PHACOEMULSIFICATION OF CATARACT WITH INTRAOCULAR LENS IMPLANT Right 03/17/2019 Surgeon: Virgil Martinez MD; Location: [facility] Family History Problem Relation Age of Onset Cancer Mother Liver Cancer Father lung ALLERGIES No Known Allergies MEDICATIONS No current facility-administered medications on file prior to encounter. Current Outpatient Medications on File Prior to Encounter Medication Sig Dispense Refill gabapentin (NEURONTIN) 100 mg capsule Take 1 capsule by mouth in the morning and 1 capsule at noon and 1 capsule in the evening. 90 capsule 0 tiZANidine 4 mg tablet Take 1 tablet by mouth every 6 (six) hours as needed for Pain (scale 7-10). 12 tablet 0 LISINOPRIL-HYDROCHLOROTHIAZIDE 10-12.5 mg per tablet Take 1 tablet by mouth once daily 90 tablet 0 furosemide 20 mg tablet Take 1 tablet by mouth daily. 90 tablet 0 lancets (TRUEPLUS LANCETS) 33 gauge [facility] Monitor Blood Glucose daily 300 Each 1 simvastatin 40 mg tablet Take 1 tablet by mouth at bedtime. 90 tablet 0 metFORMIN 1,000 mg tablet Take 1 tablet by mouth 2 (two) times daily with meals. 60 tablet 5 Insulin Syringe-Needle U-100 1 mL 27 gauge x 1/2" Syrg Use as directed 200 Syringe 5 Insulin Roosevelt, Disposable, (PHUC PEN NEEDLE) 32 gauge x 5/32" Ndle Use as directed 100 Each 1 aspirin 81 mg EC tablet Take 1 tablet by mouth daily. 90 tablet 3 ofloxacin (OCUFLOX) 0.3 % ophthalmic solution Place 1 Drop in right eye 3 (three) times daily. 5 mL 1 prednisoLONE acetate 1 % ophthalmic suspension drops Place 1 Drop in right eye 4 (four) times daily. 5 mL 1 Alcohol Swabs (BD SINGLE USE SWABS REGULAR) PadM Apply to area(s) daily. Monitor Blood Glucose daily 300 Each 0 blood sugar diagnostic (TRUE METRIX GLUCOSE TEST STRIP) strip Monitor Blood Glucose daily 300 Strip 1 I attest that the foregoing medication list in the medical record is true, accurate and complete to the best of my knowledge. SOCIAL HISTORY Social History Socioeconomic History Marital status: Tobacco Use Smoking status: Never Smokeless tobacco: Never Substance and Sexual Activity Alcohol use: No Drug use: No Social Determinants of Health Financial Resource Strain: High Risk (06/24/2024) Overall Financial Resource Strain (CARDIA) Difficulty of Paying Living Expenses: Very hard Food Insecurity: Food Insecurity Present (06/24/2024) Hunger Vital Sign Worried About Running Out of Food in the Last Year: Often true Ran Out of Food in the Last Year: Often true Physical Activity: Inactive (06/24/2024) Exercise Vital Sign Days of Exercise per Week: 0 days Minutes of Exercise per Session: 0 min Social Connections: Unknown (06/24/2024) Social Connection and Isolation Panel [NHANES] Frequency of Communication with Friends and Family: Patient declined Marital Status: Housing Stability: High Risk (06/24/2024) Housing Stability Vital Sign Unable to Pay for Housing in the Last Year: Yes Unstable Housing in the Last Year: Yes REVIEW OF SYSTEMS Review of Systems Constitutional: Negative. HENT: Negative. Eyes: Negative. Respiratory: Negative. Breasts: Negative. Cardiovascular: Negative. Gastrointestinal: Negative. Genitourinary: Negative. Musculoskeletal: Positive for arthralgias and myalgias. Negative for back pain, gait problem and joint swelling. Skin: Negative. Neurological: Negative. Psychiatric/Behavioral: Negative. Endocrine: Endocrine negative Objective PHYSICAL EXAMINATION Vitals: 08/23/24 1700 08/23/24 1800 08/23/24 1900 08/23/241999 BP: (!) 148/62 115/51 116/59 131/59 Pulse: 70 60 56 61 Resp: 19 14 14 16 Temp: 36.1 ?C (97 ?F) TempSrc: Temporal Artery SpO2: 93% 98% 99% 98% Weight: Height: Physical Exam Vitals and nursing note reviewed. Constitutional: General: He is not in acute distress. Appearance: Normal appearance. He is not ill-appearing, toxic-appearing or diaphoretic. HENT: Head: Normocephalic and atraumatic. Neurological: Mental Status: He is alert. LABS/IMAGING - reviewed Assessment & Plan Raj Morales is a 69 year old male with PMH as listed above, admitted to the hospital with: Hypoglycemia/DM: -- Will continue with D5W gtt was started -- Will continue with serial blood glucose HTN -- Will continue with hydrochlorothiazide and lisinopril HLD: -- Will continue with atorastatin Prophylaxis: DVT- enoxaparin Code Status: Full Code Estimated LOS: This inpatient admission will likely require greater than or equal to 2 Midnights. Management is not feasible as an outpatient and there is concern for adverse outcomes if not managed in an inpatient setting. Advance care planning discussed for 19 mins with patient at bedside. 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 Stroke 2017 Type 2 diabetes mellitus with vascular disease 10/12/2019 Upper respiratory tract infection, unspecified type 10/12/2019 PAST SURGICAL HISTORY Past Surgical History: Procedure Laterality Date COLONOSCOPY N/A 12/30/2019 Surgeon: Glo Finn MD; Location: [facility] CORNEAL TRANSPLANT,LAMELLAR Bilateral KNEE ARTHROSCOPY 1998 OTHER PENETRATING KERATOPLASTY PHACOEMULSIFICATION OF CATARACT WITH INTRAOCULAR LENS IMPLANT Right 03/17/2019 Surgeon: Virgil Martinez MD; [place] [facility] [place] ALLERGIES No Known Allergies MEDICATIONS Current home medication list reviewed: Current Discharge Medication List STOP taking these medications cephALEXin 500 mg capsule Comments: Reason for Stopping: owynvgjp-ortcgjeirn-inkqcnsmq 3.5mg-400 unit- 5,000 unit/gram topical ointment Comments: [...] 4 mg tablet Comments: Reason for Stopping: LISINOPRIL-HYDROCHLOROTHIAZIDE 10-12.5 mg per tablet Comments: Reason for [...] 1/2" Syrg Comments: Reason for Stopping: Insulin Roosevelt, Disposable, (PHUC PEN NEEDLE) 32 gauge x [...] antiplatelet therapy 3. History of type 2 diabetes/hypertension/dyslipide danae; should blood pressure blood sugar control 4. Homeless; patient may need IV antibiotics long-term. Patient may need to go to a retirement facility for a little while along with [...] high risk of morbidity and mortality. [place] [employer] was verified during stay José Copeland MD IM-INTERNAL MEDICINE STAFF [facility] - [facility] Procedure Notes Date/Time Note Provider Source 2024-06-27 11:15:00 V[facility] Access Services Date of Service: 06/27/24 Patient location: [place] [address] Placed by: Adilson Lees RN 69 year old male. 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 Questions encouraged and answered accordingly. According to [facility] Operating Procedures Policy, a Time Out [...] infiltration to insertion site Ultrasound utilized: yes [facility] Location used: yes 3CG Tip Location System [...] area. Chest x-ray: ordered and pending REF#: [id number] Lot #: [id number] Exp Date: 03/22/25 Adilson Lees RN [facility] Notes Date/Time Note Provider Source 2024-08-25 12:51:46 Problem: Falls, Risk of Goal: Absence of falls 08/25/2024 1251 by Sofi Auguste RN Outcome: Adequate for discharge 08/25/2024 0715 by Sofi Auguste RN Outcome: Not progressing as expected Problem: Pain Goal: Control of pain at or below patient's documented comfort goal 08/25/2024 1251 by Sofi Auguste RN Outcome: Adequate for discharge 08/25/2024 0715 by Sofi Auguste RN Outcome: Not progressing as expected Goal: Reduction in pain sensation 08/25/2024 1251 by Sofi Auguste RN Outcome: Adequate for discharge 08/25/2024 0715 by Sofi Auguste RN Outcome: Not progressing as expected Problem: Discharge Planning Goal: Adequate for discharge 08/25/2024 1251 by Sofi Auguste RN Outcome: Adequate for discharge 08/25/2024 0715 by Sofi Auguste RN Outcome: Not progressing as expected Goal: Effective communication 08/25/2024 1251 by Sofi Auguste RN Outcome: Adequate for discharge 08/25/2024 0715 by Sofi Auguste RN Outcome: Not progressing as expected Problem: Skin integrity Impaired (Risk or Actual) Goal: Wound healing 08/25/2024 1251 by Sofi Auguste RN Outcome: Adequate for discharge 08/25/2024 0715 by Sofi Auguste RN Outcome: Not progressing as expected Goal: Prevention of new skin breakdown 08/25/2024 1251 by Sofi Auguste RN Outcome: Adequate for discharge 08/25/2024 0715 by Sofi Auguste RN Outcome: Not progressing as expected Problem: Venous Thromboembolism, (actual or risk of) Goal: Absence of venous thromboembolism (Risk) 08/25/2024 1251 by Sofi Auguste RN Outcome: Adequate for discharge 08/25/2024 0715 by Sofi Auguste RN Outcome: Not progressing as expected Problem: Glucose control Goal: Glucose level within specified parameters 08/25/2024 1251 by Sofi Auguste RN Outcome: Adequate for discharge 08/25/2024 0715 by Sofi Auguste RN Outcome: Not progressing as expected Sofi Auguste RN [facility] 2024-08-25 07:16:04 Problem: Falls, Risk of Goal: Absence of falls Outcome: Not progressing as expected Problem: Pain Goal: Control of pain at or below patient's documented comfort goal Outcome: Not progressing as expected Goal: Reduction in pain sensation Outcome: Not progressing as expected Problem: Discharge Planning Goal: Adequate for discharge Outcome: Not progressing as expected Goal: Effective communication Outcome: Not progressing as expected Problem: Skin integrity Impaired (Risk or Actual) Goal: Wound healing Outcome: Not progressing as expected Goal: Prevention of new skin breakdown Outcome: Not progressing as expected Problem: Venous Thromboembolism, (actual or risk of) Goal: Absence of venous thromboembolism (Risk) Outcome: Not progressing as expected Problem: Glucose control Goal: Glucose level within specified parameters Outcome: Not progressing as expected [facility] 2024-08-24 22:19:08 Problem: Falls, Risk of Goal: Absence of falls Outcome: Progressing as expected Problem: Pain Goal: Control of pain at or below patient's documented comfort goal Outcome: Progressing as expected Goal: Reduction in pain sensation Outcome: Progressing as expected Problem: Discharge Planning Goal: Adequate for discharge Outcome: Progressing as expected Goal: Effective communication Outcome: Progressing as expected Problem: Skin integrity Impaired (Risk or Actual) Goal: Wound healing Outcome: Progressing as expected Goal: Prevention of new skin breakdown Outcome: Progressing as expected Problem: Venous Thromboembolism, (actual or risk of) Goal: Absence of venous thromboembolism (Risk) Outcome: Progressing as expected Problem: Glucose control Goal: Glucose level within specified parameters Outcome: Progressing as expected Kamilla Prajapati RN [facility] 2024-08-24 08:52:09 Problem: Falls, Risk of Goal: Absence of falls Outcome: Progressing as expected Problem: Pain Goal: Control of pain at or below patient's documented comfort goal Outcome: Progressing as expected Goal: Reduction in pain sensation Outcome: Progressing as expected Problem: Discharge Planning Goal: Adequate for discharge Outcome: Progressing as expected Goal: Effective communication Outcome: Progressing as expected Problem: Skin integrity Impaired (Risk or Actual) Goal: Wound healing Outcome: Progressing as expected Goal: Prevention of new skin breakdown Outcome: Progressing as expected Problem: Venous Thromboembolism, (actual or risk of) Goal: Absence of venous thromboembolism (Risk) Outcome: Progressing as expected Problem: Glucose control Goal: Glucose level within specified parameters Outcome: Progressing as expected T Dayana Jeknins RN [facility] 2024-08-23 23:13:25 Problem: Falls, Risk of Goal: Absence of falls Outcome: Progressing as expected Problem: Pain Goal: Control of pain at or below patient's documented comfort goal Outcome: Progressing as expected Goal: Reduction in pain sensation Outcome: Progressing as expected Problem: Discharge Planning Goal: Adequate for discharge Outcome: Progressing as expected Goal: Effective communication Outcome: Progressing as expected Problem: Skin integrity Impaired (Risk or Actual) Goal: Wound healing Outcome: Progressing as expected Goal: Prevention of new skin breakdown Outcome: Progressing as expected Problem: Venous Thromboembolism, (actual or risk of) Goal: Absence of venous thromboembolism (Risk) Outcome: Progressing as expected Problem: Glucose control Goal: Glucose level within specified parameters Outcome: Progressing as expected [facility] 2024-08-23 15:41:50 Problem: Falls, Risk of Goal: Absence of falls Outcome: Progressing as expected Problem: Pain Goal: Control of pain at or below patient's documented comfort goal Outcome: Progressing as expected Goal: Reduction in pain sensation Outcome: Progressing as expected Problem: Discharge Planning Goal: Adequate for discharge Outcome: Progressing as expected Goal: Effective communication Outcome: Progressing as expected Problem: Skin integrity Impaired (Risk or Actual) Goal: Wound healing Outcome: Progressing as expected Goal: Prevention of new skin breakdown Outcome: Progressing as expected Problem: Venous Thromboembolism, (actual or risk of) Goal: Absence of venous thromboembolism (Risk) Outcome: Progressing as expected [facility] 2024-08-23 14:57:39 Patient admitted to ICU 2101 for diagnosis of Hypoglycemia Patient agrees to admission, discussed plan of care with patient and family. Patient is awake, alert, oriented, resp reg unlabored, color appropriate for race, PIV intact No adverse reaction to medications administered while in ED Belongings with patient to unit [facility] 2024-08-23 14:52:51 Nurse Report Report given to agricultural systems specialist. Chief complaint, assessment findings, infusion verify and orders reviewed. Plan of care discussed. Patient/family members verbalized understanding. Josselin Saldivar RN [facility] 2024-08-23 09:11:44 EMS states pt was in [employer] parking lot and was seen on the ground by bystanders who called 911. The fall was unwitnessed. Pt has abrasions to head and right knee. Complains of left knee pain and does not remember anything from the fall. Bg was 33 when ems arrived. [facility] 2024-08-23 09:09:00 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 Patient is homeless. He was found in the parking lot with blood sugar 33 once EMS was called. They gave him had D50 and brought in for evaluation. He had a glucose of 47 on arrival was given another half amp of D50. Labs and imaging reviewed and he was mildly acidotic. He was put on D10 drip and admitted for further evaluation and management. Reportedly he had a recent insulin medication modification. 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 Vaping Use Never assessed Alcohol Use No. Drug Use No. Past Surgical History: Past Surgical History: Procedure Laterality Date COLONOSCOPY N/A 12/30/2019 Surgeon: Glo Finn MD; Location: [facility] CORNEAL TRANSPLANT,LAMELLAR Bilateral KNEE ARTHROSCOPY 1998 OTHER PENETRATING KERATOPLASTY PHACOEMULSIFICATION OF CATARACT WITH INTRAOCULAR LENS IMPLANT Right 03/17/2019 Surgeon: Virgil Martinez MD; Location: [facility] Review of Systems: Review of Systems Unable to perform ROS: Mental status change Physical Exam: ED Triage Vitals [08/23/24 0912] Weight 86.2 kg (190 lb) Actual or estimated Estimated by patient/family report Height 1.778 m (5' 10") BP 125/53 Pulse 86 Resp 19 Temp 35.6 ?C (96 ?F) Temp source Oral SpO2 99 % Measured on Room air Physical Exam Constitutional: General: He is not in acute distress. Appearance: He is well-developed. HENT: Head: Normocephalic and atraumatic. Eyes: Pupils: Pupils are equal, round, and reactive to light. Cardiovascular: Rate and Rhythm: Normal rate. Pulmonary: Effort: Pulmonary effort is normal. Abdominal: General: There is no distension. Musculoskeletal: General: Normal range of motion. Cervical back: Normal range of motion. Skin: General: Skin is warm and dry. Findings: Lesion (Blisters localized on the left lower extremity.) present. Neurological: Mental Status: He is alert and oriented to person, place, and time. Radiology: No orders to display Lab Results: Lab Results POCT GLUCOSE (AUTOMATED) - Abnormal Result Value Ref Range POCT GLU 40 (*) 70 - 110 mg/dL CBC WITH DIFF - Abnormal WBC 11.38 (*) 4.20 - 10.70 10*3/?L RBC 4.02 (*) 4.26 - 5.52 10*6/?L HGB 11.7 (*) 12.2 - 16.4 g/dL HCT 36.0 (*) 38.4 - 49.3 % MCV 89.6 81.7 - 95.6 fL MCH 29.1 26.1 - 32.7 pg MCHC 32.5 31.2 - 35.0 g/dL RDW-SD 47.4 38.5 - 51.6 fL RDW-CV 14.5 12.1 - 15.4 % PLT 251 150 - 328 10*3/?L MPV 9.6 (*) 9.8 - 13.0 fL NRBC/100 WBC 0.0 0.0 - 10.0 /100 WBCs NRBC x10 3 <0.01 10*3/?L GRAN MAT (NEUT) % 88.2 % IMM GRAN % 0.90 % LYMPH % 4.8 % MONO % 5.8 % EOS % 0.0 % BASO % 0.3 % GRAN MAT x10 3 (ANC) 10.04 (*) 1.99 - 6.95 10*3/uL IMM GRAN x10 3 0.10 (*) 0.00 - 0.06 10*3/uL LYMPH x10 3 0.55 (*) 1.09 - 3.23 10*3/uL MONO x10 3 0.66 0.36 - 1.02 10*3/uL EOS x10 3 <0.03 (*) 0.06 - 0.53 10*3/uL BASO x10 3 0.03 0.01 - 0.09 10*3/uL COMP. METABOLIC PANEL (74169) - Abnormal NA 136 135 - 145 mmol/L K 3.6 3.5 - 5.0 mmol/L CL 106 98 - 108 mmol/L CO2 TOTAL 19 (*) 23 - 31 mmol/L AGAP 11 2 - 16 BUN 54 (*) 7 - 23 mg/dL GLUCOSE 56 (*) 70 - 110 mg/dL CREATININE 1.51 (*) 0.60 - 1.25 mg/dL TOTAL BILI 0.4 0.1 - 1.1 mg/dL CALCIUM 9.0 8.6 - 10.6 mg/dL T PROTEIN 7.4 6.3 - 8.2 g/dL ALBUMIN 4.3 3.5 - 5.0 g/dL ALK PHOS 85 34 - 122 U/L ALTv 24 5 - 50 U/L AST(SGOT) 22 13 - 40 U/L eGFR 49.4 mL/min/1.73m2 VBG+VCOOX+NA+K+GLU+CA2+ - Abnormal PH 7.26 (*) 7.32 - 7.42 PCO2 TATIANA 51 41 - 51 mmHg PO2 TATIANA 21 (*) 25 - 40 mmHg HCO3 TATIANA 22 (*) 24 - 28 mEq/L AC VBE(BEAKER) -5.2 mEq/L THB TATIANA 12.4 (*) 13.5 - 18.0 g/dL %O2HB TATIANA 33.0 (*) 52.0 - 63.0 % %COHB TATIANA 0.1 0.0 - 1.5 % %METHB TATIANA 1.1 0.4 - 1.5 % VOL%O2 TATIANA 5.8 (*) 6.0 - 12.0 % NA 136 135 - 145 mmol/L K+ 3.8 3.5 - 5.0 mmol/L AC CA IONZ 5.00 4.50 - 5.30 mg/dL GLUCOSE 46 (*) 70 - 110 mg/dL POCT GLUCOSE (AUTOMATED) - Abnormal POCT GLU 57 (*) 70 - 110 mg/dL POCT GLUCOSE (AUTOMATED) - Abnormal POCT GLU 38 (*) 70 - 110 mg/dL POCT GLUCOSE(AGE >30DAYS) - Abnormal POCT Glu (age>30days) 123 (*) 70 - 110 mg/dL POCT GLUCOSE (AUTOMATED) - Abnormal POCT GLU 119 (*) 70 - 110 mg/dL POCT GLUCOSE (AUTOMATED) - Abnormal POCT GLU 134 (*) 70 - 110 mg/dL LACTIC ACID WHOLE BLOOD - Normal LACTIC ACID 1.25 0.50 - 2.20 mmol/L POCT GLUCOSE (AUTOMATED) - Normal POCT GLU 78 70 - 110 mg/dL POCT GLUCOSE(AGE >30DAYS) - Normal MRSA / MSSA SCREEN BY PCR, NARES EKG: If EKG completed, see Procedure Note. Orders and Treatments: Orders Placed This Encounter Procedures POCT GLUCOSE (AUTOMATED) Cbc with Diff Comp. Metabolic Panel (75528) Lactic Acid Whole Blood Lactic Acid Whole Blood VBG+VCOOX+NA+K+GLU+CA2+ POCT GLUCOSE (AUTOMATED) POCT GLUCOSE (AUTOMATED) POCT GLUCOSE(AGE >30DAYS) POCT GLUCOSE (AUTOMATED) MRSA / MSSA Screen by NIRAV Nares POCT Glucose (Age >30 Days) POCT GLUCOSE (AUTOMATED) POCT GLUCOSE (AUTOMATED) POCT GLUCOSE (AUTOMATED) POCT GLUCOSE (AUTOMATED) POCT GLUCOSE (AUTOMATED) Orders Placed This Encounter Medications dextrose 50 % in water (D50W) injection 25 mL dextrose 50 % in water (D50W) injection 50 mL DISCONTD: D10W 10 % IV infusion enoxaparin (LOVENOX) injection 40 mg dextrose 50 % in water (D50W) injection 25 mL glucagon HCL injection 1 mg D10W 10 % IV infusion First Provider Eval: ED Events Date/Time Event User Comments 08/23/24928 Medical Screening Begins DAVID PAUL -- 08/23/24928 First Provider Evaluation DAVID PAUL -- ED COURSE Diagnosis/Impression as of 08/23/24 1724 Hypoglycemia Procedures: Procedures MDM: Medical Decision Making Amount and/or Complexity of Data Reviewed Labs: ordered. Risk Prescription drug management. Decision regarding hospitalization. Flowsheet Documentation: Scoring Tools: No data recorded Disposition/Condition: ED Disposition ED Disposition Admit - IMCU Condition -- Comment -- Discharge Medications: Current Discharge Medication List STOP taking these medications gabapentin (NEURONTIN) 100 mg capsule Comments: Reason for Stopping: tiZANidine 4 mg tablet Comments: Reason for Stopping: LISINOPRIL-HYDROCHLOROTHIAZIDE 10-12.5 mg per tablet Comments: Reason for Stopping: furosemide 20 mg tablet Comments: Reason for Stopping: lancets (TRUEPLUS LANCETS) 33 gauge Misc Comments: Reason for Stopping: simvastatin 40 mg tablet Comments: Reason for Stopping: metFORMIN 1,000 mg tablet Comments: Reason for Stopping: Insulin Syringe-Needle U-100 1 mL 27 gauge x 1/2" Syrg Comments: Reason for Stopping: Insulin Roosevelt, Disposable, (PHUC PEN NEEDLE) 32 gauge x /32" Ndle Comments: Reason for Stopping: aspirin 81 mg EC tablet Comments: Reason for Stopping: ofloxacin (OCUFLOX) 0.3 % ophthalmic solution Comments: Reason for Stopping: prednisoLONE acetate 1 % ophthalmic suspension drops Comments: Reason for Stopping: Alcohol Swabs (BD SINGLE USE SWABS REGULAR) PadM Comments: Reason for Stopping: blood sugar diagnostic (TRUE METRIX GLUCOSE TEST STRIP) strip Comments: Reason for Stopping: Follow-up: Electronically signed by: David Paul DO 08/23/24 1724 [facility] 2024-07-04 11:03:58 TRANSITIONAL CARE MANAGEMENT ASSESSMENT 07/04/2024 Raj Morales [id number] Raj Morales is a 69 year old /White male was admitted on 06/23/24 to [facility], [facility] MED SURG. He was discharged on 07/01/24 with discharge disposition of HR- Routine Discharge. 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 Hx HTN Hx HLD Hx IDDM w/ peripheral neuropathy Hypomagnesemia resolved 1.7 No linked episodes [employer]-habm-yz-face outreach documentation: Discharge Assessment Chart Assessed: 07/04/24 Chart Reviewed - Post Discharge Call Deferred due to Change in Discharge Status.: Discharged to SNF (SNF location: [address] () [phone] () [phone]) TCM Outreach Completed: 07/04/24 Future Appointments: Martell Fallon RN [facility] 2024-07-01 15:47:57 Problem: Falls, Risk of Goal: [...] Outcome: Adequate for discharge Homa More RN [facility] 2024-06-30 16:53:03 Problem: Falls, Risk of Goal: [...] Outcome: Progressing as expected Kera Mcfadden RN [facility] 2024-06-29 23:46:25 Problem: Falls, Risk of Goal: [...] Outcome: Progressing as expected Parvin Mcconnell RN [facility] 2024-06-29 06:23:30 Problem: Falls, Risk of Goal: [...] Outcome: Progressing as expected Jessica Williamson RN [facility] 2024-06-28 19:05:35 Problem: Falls, Risk of Goal: [...] Outcome: Progressing as expected Martha White RN [facility] 2024-06-28 02:17:10 Problem: Falls, Risk of Goal: [...] Absence of infection Outcome: Progressing as expected [facility] 2024-06-27 16:18:42 Problem: Falls, Risk of Goal: [...] of infection Outcome: Progressing as expected T Anne Cisneros RN [facility] 2024-06-27 09:23:43 Vancomycin Therapeutic Monitoring Note Pharmacy to monitor vancomycin dosing for patient Raj Morales, [id number]. Primary Physician: Dr. Garcia ID Physician, if following: N/A Indication for [...] mg IV Q12H @ 1129, 2233 - 06/25 -- 79.3 1250 mg IV [...] any questions or concerns. Azar Ugarte PharmD, [facility] Pager: [phone] Azar Ugarte [facility] 2024-06-27 01:59:04 Problem: Falls, Risk of Goal: [...] Absence of infection Outcome: Progressing as expected [facility] 2024-06-26 09:56:06 Problem: Falls, Risk of Goal: [...] Outcome: Progressing as expected Libby Judge RN [facility] 2024-06-26 05:59:09 Problem: Falls, Risk of Goal: [...] Outcome: Progressing as expected Kamilla Prajapati RN [facility] [employer] 2024-06-25 18:13:35 Problem: Falls, Risk of Goal: [...] Absence of infection Outcome: Progressing as expected [facility] 2024-06-25 11:38:31 Summary: Vancomycin Monitoring Vancomycin Therapeutic Monitoring Note Pharmacy to monitor vancomycin dosing for patient Raj Morales, [id number]. Primary Physician: Dr. Garcia ID Physician, if following: N/A Indication for [...] any questions or concerns. Ilene Marroquin PharmD, [facility] Pager: [phone] 06/25/2024 11:38 T Ilene Marroquin [facility] 2024-06-25 01:01:18 Problem: Falls, Risk of Goal: [...] Absence of infection Outcome: Progressing as expected [facility] 2024-06-24 16:18:07 Problem: Falls, Risk of Goal: [...] Absence of infection Outcome: Progressing as expected Digna Rodriguez RN [facility] 2024-06-24 14:48:17 Summary: Vancomycin Monitoring Images from the original note were not included. Vancomycin Therapeutic Monitoring Note Pharmacy to monitor vancomycin dosing for patient Raj Morales, [id number]. Primary Physician: Dr. Garcia ID Physician, if following: N/A Indication for [...] - Assessment and Plan: Discussed with Dr. Garcia Plan is to: Start vancomycin scheduled at a dose of: Vancomycin 1250 mg IV Q12H (~13 mg/kg) Predicted AUC 544.3, Trough 17.3 Plan to draw next level on: _06/25_ @ _0500_ Thank you for allowing pharmacy to participate in the care of this patient. Please feel free to contact us with any questions or concerns. Ilene Marroquin RPH, RPH 06/24/2024 2:36 PM [facility] Department of Pharmacy - [facility] Phone: ADC: [phone] [facility] 2024-06-23 23:49:41 Problem: Falls, Risk of Goal: [...] Outcome: Progressing as expected Enrique Dumont RN [facility] 2024-06-23 15:52:58 Patient admitted to [facility] for diagnosis of bacteremia, fall. Patient agrees to admission, discussed plan of care with patient and family. Patient is awake, A&Ox4, RR even and unlabored on RA. Color appropriate for race. PIV intact x1. No adverse reaction to medications administered while in ED. Belongings with patient to unit. T Justine Peres RN [facility] 2024-06-23 15:14:29 Nurse Report Report given to SIXTO Sawyer. Chief complaint, assessment findings, infusion verify and orders reviewed. Plan of care discussed at bedside with patient and both nurses. Patient/family members verbalized understanding. Justine Peres RN [facility] 2024-06-23 11:27:44 Patient arrived by [facility] for a fall. EMS reports patient fell off his walker, and the hit the left side of his head. No LOC. BGL 285. Patient is awake and alert, oriented x4. Contusion noted to the left side of the head. Quinn Moyer RN [facility] 2024-06-23 11:25:00 AdmissionCare Guideline: Sepsis (and Other [...] performed) AdmissionCare documentation entered by: Juno Hwang [facility], 28th edition, Copyright ? 2023 [facility] All Rights Reserved. [id number] [facility] 2024-06-20 12:48:08 Pt given printed and verbal [...] in no apparent distress. Elsa White RN [facility] 2024-06-20 10:53:49 Patient arrived ambulatory via pov, states he was sent here for positive blood cultures. Patient c/o of abrasion to left chest/axilla area. Patient does not know which referred him here Zarina Mandujano RN [facility] 2024-06-20 10:52:00 Images from the original note were not included. [facility] Emergency Department Note Patient Name: Raj Morales Date of : 1955 69 year old male Treatment Room: [facility] ED [facility] Primary Care Physician: PATIENT DOES NOT [...] and DC Home. 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) 10/12/2019 Cataract OS ONLY Cellulitis of foot, left 04/12/2020 Diabetes Diabetic eye exam 12/01/2019 Added automatically from request for surgery [id number] Dyslipidemia Edema of both legs 02/28/2020 Erectile [...] N/A 12/30/2019 Surgeon: Glo Finn MD; Location: [facility] CORNEAL TRANSPLANT,LAMELLAR Bilateral KNEE ARTHROSCOPY 1999 OTHER PENETRATING KERATOPLASTY PHACOEMULSIFICATION OF CATARACT WITH INTRAOCULAR LENS IMPLANT Right 03/17/2019 Surgeon: Virgil Martinez MD; Location: [facility] Review of Systems: Review of Systems Constitutional: [...] capsule 1,000 mg cephALEXin 500 mg capsule rpecasvq-sefimjalvr-yeomnjplw 3.5mg-400 unit- 5,000 unit/gram topical ointment First [...] capsule by mouth 4 (four) times daily. GYLZFXHC-FFWFASRGRU-PVEOVVXNW 3.5MG-400 UNIT- 5,000 UNIT/GRAM TOPICAL OINTMENT Apply [...] as directed LANCETS (TRUEPLUS LANCETS) 33 GAUGE [facility] Monitor Blood Glucose daily LISINOPRIL-HYDROCHLOROTHIAZIDE 10-12.5 MG PER TABLET Take 1 tablet by mouth once daily METFORMIN 1,000 MG TABLET Take 1 tablet by mouth 2 (two) times daily with meals. MISCELLANEOUS MEDICAL SUPPLY [facility] E11.8: dispense Insulin Syringe 31 gauge brand [...] by: Mulugeta Palma MD 06/20/24 1210 T [facility] 2024-06-19 18:04:26 Patient given printed and verbal [...] with steady gait, in no apparent distress. Jose Brooks RN [facility] 2024-06-19 16:31:13 Finished sandwich, chocolate pudding, half a jello cup and 2 packages of gram crackers. Patient fed him self independently. Tolerated well. [facility] 2024-06-19 16:07:28 Provided patient with sandwich, jello, crackers and pudding. Patient swallowing well. Able to feed self independently. T [facility] 2024-06-19 13:45:00 Patient asked nurse "why are all the kids doing this" (makes hand sign), when nurse clarifies with patient states "there are 2 girls in my room, sitting there and and there (points to empty chairs) and they just crawled under my bed". T [facility] 2024-06-19 13:34:00 Patient arrived covered/soaked in urine. Tech and nurse cleaned patient and placed in clean gown. [facility] 2024-06-19 12:34:00 [facility] states: "Came in for chronic bodyaches for 3 years. No new complaints, BGL of 92 mg/dL." Patient states he falls everyday and that he fell today, no idea what time it happened. Patient not sure if the bruise/abrasion on his forehead is from today's fall or not. Desire Panchal RN [facility] 2024-06-16 19:54:51 Pt given printed and verbal [...] find transportation home, in no apparent distress [facility] 2024-06-16 18:10:23 Pt presents to ED via [facility] for a fall from standing. EMS states that he tripped on walker. Pt has an abrasion to the forehead and no other c/o. No LOC, and denies dizziness. Hx of stroke Jame Sharp RN [facility] 2024-06-16 00:29:11 Pt discharged with diagnosis of fall from standing, right leg swelling, balance problem, encouraged hydration. Printed and verbal instructions reviewed with and given to pt. Pt. verbalized understanding of teaching and recommended follow-up. Denies questions or concerns at this time. Pt wheeled out to lobby at discharge. Appears in no apparent distress. social staff worker was consulted, pt will be in waiting room until customer service consultant arrives. Advised to seek medical attention for new/prolonged/worsening of symptoms. No adverse reaction to meds given in ER noted upon discharge PIV d'cd, dressing to site, catheter in tact. Mel Obando RN [facility] 2024-06-15 23:32:56 Pt was given hygiene supplies and clothes and directed to the shower to take shower and freshen up due to no means to do so. Pt is "homeless". Pt was also given snacks [facility] 2024-06-15 18:07:43 Pt uses a walker to ambulate [facility] 2024-06-15 18:00:18 Pt arrived via [facility] with c/o fall and edema to BLE. Pt reports "it feels like my equilibrium is off". Pt has a strong odor of urine. Hemalatha Saini RN [facility] 2024-06-15 17:52:00 Images from the original note were not included. [facility] Emergency Department Note Patient Name: Raj Morales Date of : 1955 69 year old male Treatment Room: AK5/AK5 Primary Care Physician: PATIENT DOES NOT HAVE A PCP Patient Escorted by: Self [9] [facility] [[facility]] EMS Treatment Prior to ED Arrival: HAZMAT TANKER DRIVER treatment: IVF;Saline lock Travel and Exposure Screening: [...] 12/01/2019 Added automatically from request for surgery [id number] Dyslipidemia Edema of both legs 02/28/2020 Erectile [...] N/A 12/30/2019 Surgeon: Glo Finn MD; Location: [facility] CORNEAL TRANSPLANT,LAMELLAR Bilateral KNEE ARTHROSCOPY 1998 OTHER PENETRATING KERATOPLASTY PHACOEMULSIFICATION OF CATARACT WITH INTRAOCULAR LENS IMPLANT Right 03/17/2019 Surgeon: Virgil Martinez MD; Location: [facility] Review of Systems: Review of Systems Cardiovascular: [...] 0.01 - 0.09 10*3/uL COMP. METABOLIC PANEL (81499) - Abnormal NA 136 135 - 145 [...] CONTRAST Cbc with Diff Comp. Metabolic Panel (17812) Lactic Acid Whole Blood Lactic Acid Whole Blood D-Dimer No orders of the defined types were placed in this encounter. First Provider Eval: ED Events Date/Time Event User Comments 06/15/241801 Medical Screening Begins ZO GREEN MD -- 07/24/24 1802 First Provider Evaluation ZO GREEN MD -- ED COURSE Diagnosis/Impression as of 06/15/242220 Fall from standing, initial encounter Right leg [...] 32 GAUGE X 32" NDLE Use as directed INSULIN NPH (HUMULIN N NPH U-100 INSULIN) 100 UNIT/ML INJECTION INJECT 35 UNITS SUBCUTANEOUSLY EVERY MORNING AND EVENING. Office visit needed for further refills. INSULIN SYRINGE-NEEDLE U-100 1 ML 27 GAUGE X 1/2" SYRG Use as directed LANCETS (TRUEPLUS LANCETS) 33 GAUGE MISC Monitor Blood Glucose daily LISINOPRIL-HYDROCHLOROTHIAZIDE 10-12.5 MG PER TABLET Take 1 tablet by mouth once daily METFORMIN 1,000 MG TABLET Take 1 tablet by mouth 2 (two) times daily with meals. MISCELLANEOUS MEDICAL SUPPLY [facility] E11.8: dispense Insulin Syringe 31 gauge brand [...] medications on file Follow-up: Electronically signed by: Zo Green DO 06/15/242220 [facility] 2024-04-06 05:25:21 Pt given printed and verbal [...] leaving by wheelchair, in no apparent distress. [facility] 2024-04-06 01:49:35 Pt brought in by [facility] for wound on right foot and elevated blood sugar. EMS reports pt's blood glucose was 580 Milli Lopez RN [facility] 2024-04-06 01:31:00 Images from the original note were not included. [facility] Emergency Department Note Patient Name: Raj Morales Date of : 1955 69 year old male [facility] Primary Care Physician: PATIENT DOES NOT HAVE A PCP Patient Escorted by: Self [9] Mode of Arrival: EMS - [facility] ([facility] [43] EMS Treatment Prior to ED Arrival: HAZMAT TANKER DRIVER treatment: pvc monitor;FSBG;IVF;Saline lock Travel and Exposure Screening: Symptoms [...] of Present Illness: History provided by: Patient director of student services used: No Foot Pain Location: Foot Time [...] 12/01/2019 Added automatically from request for surgery [id number] Dyslipidemia Edema of both legs 02/28/2020 Erectile [...] N/A 12/30/2019 Surgeon: Glo Finn MD; Location: [facility] CORNEAL TRANSPLANT,LAMELLAR Bilateral KNEE ARTHROSCOPY 1998 OTHER PENETRATING KERATOPLASTY PHACOEMULSIFICATION OF CATARACT WITH INTRAOCULAR LENS IMPLANT Right 03/17/2019 Surgeon: Virgil Martinez MD; Location: [facility] Review of Systems: Review of Systems Constitutional: [...] 0.01 - 0.09 10*3/uL COMP. METABOLIC PANEL (96545) - Abnormal NA 126 (*) 135 - [...] (AUTOMATED) Cbc with Diff Comp. Metabolic Panel (87272) Magnesium Urinalysis POCT GLUCOSE (AUTOMATED) POCT GLUCOSE [...] with instructions to follow up at the [facility] within 3 days for wound check. Diagnosis/Impression [...] as directed LANCETS (TRUEPLUS LANCETS) 33 GAUGE [facility] Monitor Blood Glucose daily LISINOPRIL-HYDROCHLOROTHIAZIDE 10-12.5 MG PER TABLET Take 1 tablet by mouth once daily METFORMIN 1,000 MG TABLET Take 1 tablet by mouth 2 (two) times daily with meals. MISCELLANEOUS MEDICAL SUPPLY [facility] E11.8: dispense Insulin Syringe 31 gauge brand [...] signed by: Mulugeta Palma MD 04/06/24 0351 [facility] 2024-04-03 17:51:06 Pt given printed and verbal [...] noted upon discharge and exit from ED. [facility] 2024-04-03 17:21:48 Images from the original note were not included. ER Weekend Forest Fire Officer note: 04/03/2024 5:21 PM Met with the patient in room. Patient Aox4. Patient requested a ride to [address] [address] The patient was provided with cab voucher # [id number] Contacted [employer] [phone] Richard Maurer PhD, MOLASSES COLORING OPERATOR, [place] Care Management- Social Work Department of Care Management The [address] [place] [address] O [phone] E [email or web address] Richard Maurer ELECTRICAL WORKER [facility] 2024-04-03 16:49:23 Dc after fluids [facility] 2024-04-03 16:45:00 PT much more awake and alert. Pt provided with taxi voucher, food tray given. T [facility] 2024-04-03 15:18:54 Orthostatics 3:19 PM Lying: BP: 158/88 P: 87 Sitting: BP: 130/77 P: 86 Standing: BP: 126/71 P: 82 [facility] 2024-04-03 14:51:50 Images from the original note were not included. ER Weekend Forest Fire Officer note: 04/03/2024 2:51 PM RENEE met with the patient at the bedside. Initially, the patient was drowsy and unable to answer most questions. However, he expressed readiness to move to a personal half-way and was willing to pay for it. RENEE contacted Ms. Weiss from [facility] ( ) and Madhavi Abraham ( ), who explained the financial requirements for staying at their personal care homes. They said he needed to pay a bit upfront and use some of his social security for the home. RENEE also spoke with Royer from [facility] and faxed clinicals for a pending Medicaid bed. Later, RENEE talked to Pan from [facility] about the referral made on 03/22/2024. [...] disagreed with the plan for a personal half-way, stating he receives around $900 in social security benefits (contradicting his earlier statement of $1200 to $1400) and did not want to pay for his stay. He expressed a preference for going to a longterm. RENEE contacted Grover, Drop Worker of the [facility], to secure a bed and discussed this with the patient. The patient agreed to go to the [facility] longterm. RENEE informed him about a meeting with [facility] social media senior associate Destiny Prajapati Thursday morning. The patient expressed unawareness of the meeting, so SW requested him to answer the phone when [facility] SW calls. RENEE also emailed [facility] social media senior associate Destiny Prajapati regarding the situation, seeking her assistance. Richard Maurer PhD, MOLASSES COLORING OPERATOR, LCDC Care Management- Social Work Department of Care Management The [address] , [place] [address] O [phone] E [email or web address] 2024-04-03 09:48:46 Pt to ED c/o falls [...] in lowest position. Call light within reach. [facility] 2024-04-03 09:40:55 Raj Morales is a 69 year old male presents to ED triage with chief compliant of falls. EMS states that he has had multiple falls today, patient has a small abrasions to L forehead.- blood thinners. AAOx4. Skin warm and dry. VSS. RR E/U. NAD noted. Roomed for eval Parvin José RN [facility] 2024-04-03 09:39:00 Associated Order(s): EKG-12 Lead ROUTINE ONCE Pre-Procedure Diagnose(s): Fall, initial encounter; Injury of head, initial encounter Post-Procedure Diagnose(s): Fall, initial encounter; Injury of head, initial encounter Images from the original note were not included. [facility] Emergency Department Note Patient Name: Raj Morales Date of : 1955 69 year old male Treatment Room: [address] [place] [address] Primary Care Physician: PATIENT DOES NOT HAVE [...] History provided by: Patient and medical records director of student services used: No 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) 10/12/2019 Cataract OS ONLY Cellulitis of foot, left 04/12/2020 Diabetes Diabetic eye exam 12/01/2019 Added automatically from request for surgery [id number] Dyslipidemia Edema of both legs 02/28/2020 Erectile [...] N/A 12/30/2019 Surgeon: Glo Finn MD; Location: [facility] CORNEAL TRANSPLANT,LAMELLAR Bilateral KNEE ARTHROSCOPY 1998 OTHER PENETRATING KERATOPLASTY PHACOEMULSIFICATION OF CATARACT WITH INTRAOCULAR LENS IMPLANT Right 03/17/2019 Surgeon: Virgil Martinez MD; Location: [facility] Review of Systems: Review of Systems Constitutional: [...] Eval: ED Events Date/Time Event User Comments 04/03/24947 Medical Screening Begins NANDO HAGAN MD -- [...] but is agreeable to go to the [facility]. Will reassess shortly [CD] 1433 AMMONIA(!): <9 [...] subsequently to follow commands. The nurse from [facility] rehab was trying to assess the [...] [CD] 1047 POCT Glu (age>30days)(!): 305 [CD] 9737 69 male with history of diabetes, hypertension, [...] ED Physician in the absence of a marine farmer: yes Previous ECG: Previous ECG: Compared to [...] as directed LANCETS (TRUEPLUS LANCETS) 33 GAUGE [facility] Monitor Blood Glucose daily LISINOPRIL-HYDROCHLOROTHIAZIDE 10-12.5 MG PER TABLET Take 1 tablet by mouth once daily METFORMIN 1,000 MG TABLET Take 1 tablet by mouth 2 (two) times daily with meals. MISCELLANEOUS MEDICAL SUPPLY [facility] E11.8: dispense Insulin Syringe 31 gauge brand [...] signed by: Nando Hagan MD 04/03/24 1651 T [facility] 2024-03-31 19:41:41 Pt discharged to home. Discharge instructions given to pt regarding management of condition and instructions to follow up with PCP. Pt verbalized understanding. PIV removed without complications. Patient in possession of all belongings. Pt ambulates to lobby with steady gait. Kunal Joiner RN [facility] 2024-03-31 19:37:16 DISCHARGE HOLD: Pt requesting compression stockings. Materials management contacted. [facility] 2024-03-31 12:35:04 Raj Morales is a 69 year old male presenting to ED with c/o fall. Patient reports using walker and reports stepped off a curb and fell. Patient reports hitting head on ground but denies LOC. No use of blood thinners. BGL "HI" for EMS. Patient received 400cc NS HAZMAT TANKER DRIVER. BGL 526. Patient to green chairs due to ED saturation Shavon Linares RN [facility] 2024-03-29 18:51:55 Raj Morales verbalized an understanding of DC instructions. NAD. Respirations unlabored. Pt wheeled out to the ER lobby. Pt given cleaning wipes and reports he needs to get dressed prior to going to ER lobby. RENEE Gusman spoke with patient regarding transport. Porsha Encarnacion RN [facility] 2024-03-29 18:44:41 Images from the original note [...] she set up for him. HAIDER Sam [employer] Officer [facility] - Care Management Office [email or web address] Naseem MALONEY [facility] 2024-03-29 14:46:31 Raj Morales is a 69 year old male presenting to ED via [facility] with c/o back pain. Patient reports mechanical fall earlier today with no LOC. No use of blood thinners. Patient to green chairs due to ED saturation Shavon Linares RN [facility] 2024-03-22 16:51:23 Naseem gallo/ social work is working on getting pt a ride. DC hold until completed. Mina Ordaz RN [facility] 2024-03-22 13:07:59 Social work at bedside. [facility] 2024-03-22 13:07:00 Images from the original note were not included. ED LBSW Case Note 03/22/2024 5:13 PM Transportation arranged via [employer] . Patient name: Raj Morales Discharge date: 03/22/2024 Reason for voucher: Pt doesn't have a means of transportation Voucher #: [id number] SW met with pt face to face Pt is [facility] [address] [place] [address] In the future pt is made aware that they will need to find a ride home, unless they are non-ambulatory. Pt was made aware that the [facility] bus transportation picks up right in [...] LBSW gathered the following resources for pt; [facility] Resources Packet [employer] Non-Emergency Medical Transport Form [facility] Information/Registration Packet [facility] Flyer Royer services available/schedule form [facility] Flyer GoodRx Card 03/22/2024 3:33 PM This [...] PM This LBSW sent referral to [facility] ([address], [place] [address] ) to work him up for possibly inpt. Rehab 03/22/2024 1:07 PM This LBSW was consulted by SIXTO Enriquez regarding pt's need for housing and a new walker. This LBSW met with pt at bed side pt shared the following: - Pt has uncontrolled diabetes that hinders him from walking w/o assistance. - Pt has a daughter that lives in [place] that he is estranged from. 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 - Pt is currently homeless - Pt has [employer] as health insurance - Pt gets between $1300-$1400 a month from social security - Pt stays in front of [employer] [place] - Pt has [...] gait and steadiness of walking HAIDER Sam [employer] Fire Officer [facility] - Care Management Office [email or web address] Naseem MALONEY [facility] 2024-03-22 13:04:31 Pt requested help from social work for an upgraded walker and questions about housing options other than the [employer]. Social work was called. Will relay the message to pt. [facility] 2024-03-22 11:08:13 Pt to XR [facility] 2024-03-22 09:54:54 Raj Morales is a 69 year old male who presents to the ED with chief complaints of Left foot and leg swelling. Foot is warm to the touch. Pt rates pain as a 10/10. AAOx4. VSS. RR E/U. Skin warm and dry. NAD noted. Roomed for eval. Parvin José RN [facility] 2024-03-12 00:01:12 Patient received discharge instructions and [...] with pcp. Pt provided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
[2024-08-25] MEDS ORDERED: NA CHLORIDE 0.9% 2,000 ML ONE (15:58)
[2024-08-25] MEDS ORDERED: NA CHLORIDE 0.9% 500 ML ONE (15:58)
[2024-08-25] MEDS ORDERED: NOREPINEPHRINE BITARTRATE/D5W 0 MG/0 ML KIT IV ONE (15:58)
[2024-08-25 16:11] LABS: Absolute Eosinophils 0.1 K/uL (0-0.5); Absolute Lymphocytes (CBC) 0.9 K/uL (0.7-4.9); Absolute Monocytes 1.5 K/uL (0.1-1.3); Absolute Neutrophil 8.2 K/uL (1.8-8.0); Basophils % 0.2 % (0-1.3); Eosinophils % 0.9 % (0-4.4); Lymphocytes % 8.2 % (15.3-44.8); MCH 29.6 pg (27.0-35.0); MCHC 34.3 g/dL (32.0-36.0); MCV 86.4 fL (80-100); MPV 7.3 fL (7.6-11.3); Monocytes % 14.2 % (3.3-12.3); Neutrophils % 76.5 % (41.7-73.7); Nucleated Red Blood Cells % 0.1 % (0-0); Platelets 327 thou/uL (152-406); RBC Red Blood Cell Count 4.39 M/uL (4.33-5.43); Red Cell Distribution Width 14.8 % (12.1-15.2)
[2024-08-25] MEDS ORDERED: VANCOMYCIN 1 GM/VIAL ONE (16:25)
[2024-08-25] MEDS ORDERED: NA CHLORIDE 0.9% 100 ML ONE (16:26)
[2024-08-25] MEDS ORDERED: NA CHLORIDE 0.9% 250 ML ONE (16:26)
[2024-08-25] MEDS ORDERED: CEFEPIME 1 GM/VIAL ONE (16:26)
[2024-08-25 16:27] LABS: PT Prothrombin Time 12.4 SECONDS (9.4-12.5); PTT, Activated Partial Thromb 34.9 SECONDS (24.3-36.9); Protime INR 1.11
[2024-08-25 16:38] LABS: Albumin 3.4 g/dL (3.4-5.0); Albumin/Globulin Ratio 0.9 (1.1-1.8); Anion Gap 8.9 mEq/L (5.0-15.0); Bilirubin Total 0.7 mg/dL (0.2-1.0); Potassium 4.9 mEq/L (3.5-5.1); Protein, Total 7.4 g/dL (6.4-8.2)
--- NOTE | 2024-08-25 16:53 | ER ---
Nurse's Notes [facility] Name: Edwin Linton Age: 69 yrs Sex: Male : 1955 Arrival Date: 08/25/2024 Time: 15:41 Bed 18 Private MD: Diagnosis: Hypotension, unspecified;Rash and other nonspecific skin eruption Presentation: 08/25 15:52 Chief complaint: EMS states: they were toned out for LLE pain with blisters. upon EMS kc6 arrival pt was hypotensive with a BP of 72/45. EMS administered 1L of NS. Coronavirus screen: At this time, the client does not indicate any symptoms associated with coronavirus-19. Ebola Screen: No symptoms or risks identified at this time. Initial Sepsis Screen: Does the patient meet any 2 criteria? No. Patient's initial sepsis screen is negative. Does the patient have a suspected source of infection? No. Patient's initial sepsis screen is negative. Risk Assessment: Do you want to hurt yourself or someone else? Patient reports no desire to harm self or others. Onset of symptoms was August 25, 2024. 15:52 Method Of Arrival: EMS: [facility] kc6 15:52 Acuity: ROLAND 2 kc6 Historical: - Allergies: 15:54 No Known Allergies; kc6 - PMHx: 15:54 Cerebrovascular accident; diabetes mellitus; Hypercholesterolemia; Hypertensive kc6 disorder; - Immunization history:: Adult Immunizations up to date. - Infectious Disease History:: Denies. - Social history:: Smoking status: Patient denies any tobacco usage or history of. Screenin:55 [facility] ED Fall Risk Assessment (Adult) History of falling in the last 3 months, kc6 including since admission No falls in past 3 months (0 pts) Confusion or Disorientation No (0 pts) Intoxicated or Sedated No (0 pts) Impaired Gait Yes (1 pt) Mobility Assist Device Used Yes (1 pt) Altered Elimination No (0 pt) Score/Fall Risk Level 3 or more points = High Risk Oriented to surroundings. Abuse screen: Denies threats or abuse. Denies injuries from another. Nutritional screening: No deficits noted. Tuberculosis screening: No symptoms or risk factors identified. Assessment: 16:17 General: Appears in no apparent distress. comfortable, unkempt, well developed, kc6 Behavior is calm, cooperative, appropriate for age. Pain: Complains of pain in left foot and left leg. Neuro: Level of Consciousness is awake, alert, obeys commands, Oriented to person, place, time, situation, Appropriate for age. Cardiovascular: Capillary refill < 3 seconds. Respiratory: Airway is patent Trachea midline Respiratory effort is even, unlabored, Respiratory pattern is regular, symmetrical. GI: No signs and/or symptoms were reported involving the gastrointestinal system. : No signs and/or symptoms were reported regarding the genitourinary system. EENT: No signs and/or symptoms were reported regarding the EENT system. Derm: Skin is fragile, is thin, with poor turgor has blisters on the LLE and foot Skin is dry, Skin is normal, Skin temperature is warm. Musculoskeletal: No signs and/or symptoms reported regarding the musculoskeletal system. Circulation, motion, and sensation intact. Capillary refill < 3 seconds, Range of motion: intact in all extremities. 18:03 Reassessment: Patient appears in no apparent distress at this time. No changes from kc previously documented assessment. Patient and/or family updated on plan of care and expected duration. Pain level reassessed. Patient is alert, oriented x 3, equal unlabored respirations, skin warm/dry/pink. Vital Signs: 15:52 BP 90 / 53; Pulse 79; Resp 17 S; Temp 98.8(O); Pulse Ox 100% on R/A; Weight 86.18 kg kc6 (R); Height 5 ft. 10 in. (R); 16:18 BP 114 / 56; Pulse 74; Resp 18 S; Pulse Ox 100% on R/A; kc6 16:33 BP 132 / 66; Pulse 80; Resp 17 S; Pulse Ox 100% on R/A; kc6 18:03 BP 120 / 54; Pulse 90; Resp 17; Pulse Ox 100% on R/A; kc6 15:52 Body Mass Index 27.26 (86.18 kg, 177.8 cm) 6 ED Course: 15:43 Patient arrived in ED. ms3 15:43 Roney Romero DO is Attending Physician. ms3 15:43 Sofia Lopez, SIXTO is Primary Nurse. kc6 15:54 Triage completed. kc6 15:54 Arm band placed on. kc6 15:55 Patient has correct armband on for positive identification. Placed in gown. Bed in low kc6 position. Call light in reach. Side rails up X2. vehicle monitor technician on. Pulse ox on. NIBP on. Door closed. Noise minimized. Lights dimmed. Warm blanket given. Pillow given. 15:55 Maintain EMS IV. Dressing intact. Good blood return noted. Site clean \\T\\ dry. Gauge \\T\\ hussein 6 site: 20G LHAND. Flushed with 10 mL NS. Inserted saline lock: 20 gauge in right antecubital area, using aseptic technique. Blood collected. Flushed with 10 mL NS. Patient maintains SpO2 saturation greater than 95% on room air. 16:50 José Aparicio MD is Hospitalizing Provider. ms3 16:57 Chest Single View XRAY In Process Unspecified. EDMS 18:04 No provider procedures requiring assistance completed. Patient admitted, IV remains in kc6 place. 18:34 1834 CM met with at the bedside. Patient identified by name and . ane Demographic sheet confirmed and changes sent to appropriate personnel. Patient states he no longer resides at the address listed and his now homeless. he went on to explain that his daughter Georgina Linton no longer speaks with him, but he instructed to leave her name and contact information on the demographic sheet. He reports that prior to admission, he performed ADLs independently with use of a rollator, until recently, and now he has been unable to stand or ambulate well. Patient does not remember the name of his PCP, stating " I think he's Spanish". Patient does not have any other DME, HH, home oxygen or other medical services at this time. CM provided community resource packet and stated he was in contact with [facility] but has since lost his cell phone. is unsure of what his preferred discharge plan is. CM team will continue to follow and coordinate care during this hospital stay. Administered Medications: 16:18 Drug: NS 0.9% IV (30 ml/kg) 30 ml/kg IV at bolus once; Sepsis Protocol Route: IV; Rate: kc6 bolus; Site: right antecubital; 18:03 Follow up: Response: No adverse reaction; IV Status: Completed infusion; IV Intake: kc6 2500ml 16:33 Drug: Cefepime IVPB 1 grams IVPB at 200 ml/hr once over 30 mins; (mix in NS 100 mL) kc6 Route: IVPB; Rate: 200 ml/hr; Infused Over: 30 mins; Site: left hand; 17:11 Follow up: Response: No adverse reaction; IV Status: Completed infusion; IV Intake: kc6 100ml 17:11 Not Given (Hemodynamic Parameters): norepinephrine0.1 mcg/kg/min IV at calculated rate kc6 See Administration Instructions; (Standard concentration 4 mg / 250 mL D5W); Recommended max rate 3 mcg/kg/min; Titrate 0.05 mcg/kg/min as often as every 5 minutes to achieve goal (see titration policy); Goal parameter MAP greater than 65 mmHg. 17:11 Drug: vancoMYCIN IVPB 1 grams IVPB once over 2 hrs Route: IVPB; Infused Over: 2 hrs; kc6 Site: left hand; 18:03 Follow up: Response: No adverse reaction; IV Status: Infusion continued upon admission; kc6 IV Intake: 250ml Medication: 18:04 VIS not applicable for this client. kc6 Intake: 17:11 IV: 100ml; Total: 100ml. kc6 18:03 IV: 250ml; Total: 350ml. kc6 18:03 IV: 2500ml; Total: 2850ml. kc6 Outcome: 16:53 Decision to Hospitalize by Provider. ms3 18:04 Admitted to Med/surg accompanied by nurse, via stretcher, with chart, kc6 18:04 Condition: stable 18:04 Instructed on the need for admit, 18:04 Patient left the ED. [facility] Signatures: Dispatcher [employer] EDMS Roney Romero DO DO ms3 Sofia Lopez, RN RN kc6 Jeanne Marrero RN RN ane
--- NOTE | 2024-08-25 16:53 | EDPHYS ---
Physician Documentation [facility] Name: Edwin Linton Age: 69 yrs Sex: Male : 1955 Arrival Date: 08/25/2024 Time: 15:41 Bed 18 Private MD: ED Physician Roney Romero HPI: 08/25 16:38 This 69 yrs old Male presents to ER via EMS with complaints of Leg Pain. ms3 16:38 69-year-old male with past medical history of CVA, diabetes, hyperlipidemia, ms3 hypertension presents to the emergency department for hypotension. Patient recently discharged from [facility]. Patient states he has blisters on his left leg that are causing him severe pain.. Historical: - Allergies: 15:54 No Known Allergies; kc6 - PMHx: 15:54 Cerebrovascular accident; diabetes mellitus; Hypercholesterolemia; Hypertensive kc6 disorder; - Immunization history:: Adult Immunizations up to date. - Infectious Disease History:: Denies. - Social history:: Smoking status: Patient denies any tobacco usage or history of. ROS: 16:38 Constitutional: Negative for fever, and chills. Cardiovascular: Negative for chest ms3 pain, and palpitations. Respiratory: Negative for shortness of breath, cough, wheezing, and pleuritic chest pain, Abdomen/GI: Negative for abdominal pain, nausea, vomiting, diarrhea, and constipation, 16:38 Skin: Positive for rash, Exam: 16:38 Constitutional: This is a well developed, well nourished patient who is awake, alert, ms3 and in no acute distress. Head/Face: Normocephalic, atraumatic. Chest/axilla: Normal chest wall appearance and motion. Nontender with no deformity. Cardiovascular: Regular rate and rhythm with a normal S1 and S2. No gallops, murmurs, or rubs. Normal PMI, no JVD. No pulse deficits. Respiratory: Lungs have equal breath sounds bilaterally, clear to auscultation and percussion. No rales, rhonchi or wheezes noted. No increased work of breathing, no retractions or nasal flaring. Abdomen/GI: Soft, non-tender, with normal bowel sounds. No distension or tympany. No guarding or rebound. No evidence of tenderness throughout. 16:38 Skin: Blistering Left leg. 16:54 ECG was reviewed by the Attending Physician. ms3 Vital Signs: 15:52 BP 90 / 53; Pulse 79; Resp 17 S; Temp 98.8(O); Pulse Ox 100% on R/A; Weight 86.18 kg kc6 (R); Height 5 ft. 10 in. (R); 16:18 BP 114 / 56; Pulse 74; Resp 18 S; Pulse Ox 100% on R/A; kc6 16:33 BP 132 / 66; Pulse 80; Resp 17 S; Pulse Ox 100% on R/A; kc6 18:03 BP 120 / 54; Pulse 90; Resp 17; Pulse Ox 100% on R/A; kc6 15:52 Body Mass Index 27.26 (86.18 kg, 177.8 cm) kc6 MDM: 15:43 Patient medically screened. ms3 16:38 Differential diagnosis: Cellulitis vs Pemphigus vs Hypotension. ms3 18:47 Data reviewed: vital signs, nurses notes, and as a result, I will admit patient. ms3 Consideration of Admission/Observation Patient was admitted/placed on observation. Management of patient was discussed with the following: Hospitalist: Dr Aparicio. I considered the following discharge prescriptions or medication management in the emergency department Medications were administered in the Emergency Department. See MAR. Independent interpretation of the following test(s) in the Emergency Department EKG: See my EKG interpretation above. Historians other than the Patient: EMS: [facility]. Counseling: I had a detailed discussion with the patient and/or guardian regarding the historical points, exam findings, and any diagnostic results supporting the discharge/admit diagnosis, lab results, the need for further work-up and treatment in the hospital. ED course: Discussed labs with patient and necessity for admission. Patient understands agrees with plan. Discussed case with Dr. Aparicio he accepts admission. 08/25 15:44 Order name: Blood Culture Adult (2) ms3 08/25 15:44 Order name: CBC with Diff; Complete Time: 16:37 ms3 08/25 15:44 Order name: CMP; Complete Time: 16:43 ms3 08/25 15:44 Order name: Lactate w/ 2H reflex if indic.; Complete Time: 16:37 ms3 08/25 15:44 Order name: Protime (+inr); Complete Time: 16:37 ms3 08/25 15:44 Order name: Ptt, Activated; Complete Time: 16:37 ms3 08/25 15:44 Order name: Urinalysis w/ reflexes ms3 08/25 15:44 Order name: Chest Single View XRAY; Complete Time: 17:23 ms3 08/25 15:44 Order name: EKG; Complete Time: 15:44 ms3 08/25 15:44 Order name: Accucheck; Complete Time: 16:17 ms3 08/25 15:44 Order name: Cardiac monitoring; Complete Time: 15:55 ms3 08/25 15:44 Order name: EKG - Nurse/Tech; Complete Time: 16:17 ms3 08/25 15:44 Order name: IV Saline Lock - Large Bore; Complete Time: 15:56 ms3 08/25 15:44 Order name: Labs collected and sent; Complete Time: 16:17 ms3 08/25 15:44 Order name: O2 Per Protocol; Complete Time: 15:56 ms3 08/25 15:44 Order name: O2 Sat Monitoring; Complete Time: 15:56 ms3 08/25 15:44 Order name: Vital Signs; Complete Time: 15:56 ms3 EC:54 Rate is 69 beats/min. Rhythm is regular. Left axis deviation noted. AR interval is ms3 normal. QRS interval is normal. Clinical impression: NSR w/ Non-specific ST/T Changes. Interpreted by me. Reviewed by me. Administered Medications: 16:18 Drug: NS 0.9% IV (30 ml/kg) 30 ml/kg IV at bolus once; Sepsis Protocol Route: IV; Rate: kc6 bolus; Site: right antecubital; 18:03 Follow up: Response: No adverse reaction; IV Status: Completed infusion; IV Intake: kc6 2500ml 16:33 Drug: Cefepime IVPB 1 grams IVPB at 200 ml/hr once over 30 mins; (mix in NS 100 mL) kc6 Route: IVPB; Rate: 200 ml/hr; Infused Over: 30 mins; Site: left hand; 17:11 Follow up: Response: No adverse reaction; IV Status: Completed infusion; IV Intake: kc6 100ml 17:11 Not Given (Hemodynamic Parameters): norepinephrine0.1 mcg/kg/min IV at calculated rate kc6 See Administration Instructions; (Standard concentration 4 mg / 250 mL D5W); Recommended max rate 3 mcg/kg/min; Titrate 0.05 mcg/kg/min as often as every 5 minutes to achieve goal (see titration policy); Goal parameter MAP greater than 65 mmHg. 17:11 Drug: vancoMYCIN IVPB 1 grams IVPB once over 2 hrs Route: IVPB; Infused Over: 2 hrs; kc6 Site: left hand; 18:03 Follow up: Response: No adverse reaction; IV Status: Infusion continued upon admission; kc6 IV Intake: 250ml Disposition Summary: 08/25/24 16:53 Hospitalization Ordered Notes: Hospitalization Status: Inpatient Admission ms3 Provider: José Aparicio ms3 Location: Telemetry/MedSur (Inpatient) ms3 Condition: Stable ms3 Problem: new ms3 Symptoms: are unchanged ms3 Bed/Room Type: Standard ms3 Room Assignment: 208(08/25/24 17:12) bc6 Diagnosis - Hypotension, unspecified ms3 - Rash and other nonspecific skin eruption ms3 Forms: - Medication Reconciliation Form ms3 - SBAR form ms3 - Leadership Thank You Letter ms3 Signatures: Dispatcher [employer] EDRoney Edgar DO DO ms3 Sofia Lopez RN RN kc6 Shaniqua Elias bc6 Corrections: (The following items were deleted from the chart) 17:12 16:53 ms3 bc6
--- NOTE | 2024-08-25 17:18 | RAD REPORT ---
EXAMINATION: ONE VIEW CHEST XR CLINICAL INDICATION: hypotension TECHNIQUE: Frontal chest projection is submitted. Examination is limited by patient positioning and t echnique. COMPARISON: 08/17/2024 FINDINGS: The lungs are well inflated and clear. The heart is normal in size. No displaced fractures identified . IMPRESSION: No acute intrathoracic abnormalities.
--- NOTE | 2024-08-25 17:19 | P.HP ---
Certification for Inpatient Patient admitted to: Inpatient With expected LOS: >2 Midnights Patient will require the following post-hospital care: Home Health Services Practitioner: I am a practitioner with admitting privileges, knowledge of patient current condition, hospital course, and medical plan of care. Services: Services provided to patient in accordance with Admission requirements found in Title 42 Section 412.3 of the Code of Federal Regulations Patient History Date of Service: 08/25/24 Reason for admission: Hypotension History of Present Illness: Patient is a 55-year-old gentleman came to the hospital after being discharged from [facility] after a 5-day stay. Patient was also recently discharged from our hospital after a CVA. Patient was discharged less than 24 hours ago from [facility]. Patient states he got into a disagreement with the primary care provider and he was discharged. Will try to get records from [facility]. Patient has been running fevers with shakes and chills. Patient denies any new complaints. Homeless and he has multiple lesions on the right side of his face. He looks sunburn. He also has bullae's on the left leg. There is some erythema around some of them. He says they have been there for the last few weeks. He is not sure exactly what is causing those. He denies any shakes and chills. He has been febrile and has not been feeling well. He also takes some pain medication. He is estranged from his daughter who lives in [place]. He states he is pretty much homeless. Patient was found to have a blood pressure of 80/50 in the emergency room. Patient was tachycardic with heart rates in the 110s. Emergency room physician spoke to the patient and patient was pancultured. Patient will be admitted to the hospital for further evaluation. Allergies No Known Allergies Allergy (Verified 02/20/24 02:33) Home Medications: Alcohol Antiseptic Pads [Alcohol Swabs] 1 each TP TID #1 box 04/14/24 Blood Sugar Diagnostic [Blood Glucose Test Strip] 1 each MC TID #90 strip 04/14/24 Blood-Glucose Meter [Blood Glucose Monitoring] 1 each TID #1 kit 04/14/24 Insulin Glargine,Hum.rec.anlog [Lantus Solostar] 20 unit SQ BID #30 ml 04/14/24 Lancets 1 each TID #100 ea 04/14/24 Syrge-Ndl,Ins 0.3 ml Half Daniel [Insulin Syringe] 1 each TID #1 box 04/14/24 - Past Medical/Surgical History -: Type 2 diabetes -: Homeless -: History of CVA - Family History Father Medical History: Cancer - Social History Smoking Status: Former smoker Alcohol use: No Caffeine use: Yes Review of Systems 10-point ROS is otherwise unremarkable Physical Examination - Vital Signs Temperature: 98 F Blood Pressure: 140/80 Pulse: 80 Respirations: 18 Pulse Ox (%): 95 - Physical Exam General: Alert, In no apparent distress, Oriented x3 HEENT: Atraumatic, PERRLA, Mucous membr. moist/pink, EOMI, Sclerae nonicteric Neck: Supple, 2+ carotid pulse no bruit, No LAD, Without JVD or thyroid abnormality Respiratory: Clear to auscultation bilaterally, Normal air movement Cardiovascular: Regular rate/rhythm, Normal S1 S2 Gastrointestinal: Normal bowel sounds, Soft and benign, Non-distended, No tenderness Musculoskeletal: No clubbing, No swelling, No tenderness Integumentary: No rashes Neurological: Normal gait, Normal speech, Normal strength at 5/5 x4 extr, Normal tone, Normal affect Lymphatics: No axilla or inguinal lymphadenopathy - Studies Laboratory Data (last 24 hrs) 08/25/24 08/25/24 08/25/24 13:59 13:59 13:59 WBC 10.80 Hgb 13.0 L Hct 38.0 L Plt Count 327 PT 12.4 INR 1.11 APTT 34.9 Sodium 134 L Potassium 4.9 BUN 43 H Creatinine 2.13 H Glucose 130 H Total Bilirubin 0.7 AST 21 ALT 31 Alkaline Phosphatase 123 H Assessment & Plan - Problems (Diagnosis) (1) Hypotension Current Visit: Yes Status: Acute (2) PAUL (acute kidney injury) Current Visit: No Status: Acute (3) Chronic kidney disease Current Visit: No Status: Acute (4) History of CVA (cerebrovascular accident) Current Visit: No Status: Acute - Plan - Plan Plan: 1. Continue with IV fluids 2. Continue with IV antibiotics 3. Continue with IV steroids for the bullous lesions 4. Patient homeless and will arrange for placement at this time 5. Strict blood pressure and blood sugar control 6. GI DVT prophylaxis Discharge Plan: Home Plan to discharge in: Greater than 2 days - Advance Directives Does patient have a Living Will: No Does patient have a Durable POA for Healthcare: No - Code Status/Comfort Care Code Status Assessed: Yes Code Status: Full Code Critical Care: No Time Spent Managing PTS Care (In Minutes): 45
[2024-08-25] MEDS ORDERED: ONDANSETRON 4 MG/2 ML VIAL IV PRN (18:21)
[2024-08-25] MEDS ORDERED: ACETAMINOPHEN 500 MG TAB PO PRN (18:21)
[2024-08-25] MEDS: NA CHLORIDE 0.9% 1,000 ML IV SCH (18:31)
[2024-08-25 20:42] LABS: Specific Gravity 1.013 (1.005-1.030); Urine Bilirubin NEGATIVE (Negative); Urine Blood Negative (Negative); Urine Clarity Clear (Clear); Urine Color Light-Yellow (Yellow); Urine Glucose NEGATIVE (Negative); Urine Ketones NEGATIVE (Negative); Urine Microscopic Reflex YN NO UMIC; Urine Nitrite NEGATIVE (Negative); Urine Protein NEGATIVE (Negative); Urine Urobilinogen Normal (Normal)
[2024-08-25 21:50] VITALS: BMI 27.2
[2024-08-26 05:32] LABS: Absolute Eosinophils 0.1 K/uL (0-0.5); Basophils % 0.4 % (0-1.3); MPV 7.7 fL (7.6-11.3)
[2024-08-26 05:43] LABS: Absolute Monocytes 1.3 K/uL (0.1-1.3); Absolute Neutrophil 4.8 K/uL (1.8-8.0); Eosinophils % 1.7 % (0-4.4); Hematocrit 32.5 % (39.6-49.0); Hemoglobin 11.2 g/dL (13.6-17.9); Lymphocytes % 13.5 % (15.3-44.8); MCHC 34.4 g/dL (32.0-36.0); MCV 87.1 fL (80-100); Monocytes % 18.2 % (3.3-12.3); Neutrophils % 66.2 % (41.7-73.7); Nucleated Red Blood Cells % 0.2 % (0-0); Platelets 251 thou/uL (152-406); RBC Red Blood Cell Count 3.73 M/uL (4.33-5.43); Red Cell Distribution Width 14.7 % (12.1-15.2)
[2024-08-26 05:48] LABS: Anion Gap 8.4 mEq/L (5.0-15.0); Magnesium 1.9 mg/dL (1.6-2.4); Potassium 4.4 mEq/L (3.5-5.1)
--- NOTE | 2024-08-26 06:55 | P.PN ---
Date of Service: 08/26/24 subjective reports LLE pain, blisters Review of Systems 10 ROS neg unless listed Per HPI Physical Examination - Physical Exam General: In no apparent distress, oriented x 3 HEENT: Atraumatic, Normocephalic Neck: Supple, 2+ carotid pulse no bruit Respiratory: Normal air movement, unlabored Cardiovascular: Normal pulses, Regular rate/rhythm Capillary refill: <2 Seconds Gastrointestinal: Normal bowel sounds, Soft and benign Musculoskeletal: Generalized weakness Integumentary: Other left lower extremity leg blisters, forehead bruising, Neurological: No focal deficits, answers questions appropriately Assessment and Plan - Plan Assessment plan Intractable left lower extremity leg pain Leg blisters Eval for autoimmune disease, immune immunocompromised started on solumedrol hypotension Sepsis workup, IV fluid, culture He does not remember if he took too many blood pressure medications Diabetes type 2 unknown control Hypoglycemic episodes Accu-Chek, Blood glucose 47, 33, 43 elevated after started on solumedrol ssI started, lantus at bedtime ordered Moderate generalized weakness Degenerative joint disease CT of the head rule out CVA PT eval, to assess gait, DME needs Fall precaution CT Degenerative changes of the hip joints and lower lumbar spine. 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 Events of the last 24 hours have been noted. Case discussed with SARAH. I performed a substantial part of the MDM during this patient's care today. I personally made or approved the documented management plan and acknowledge its risk of complications. I agree with the findings and documentation provided in the SARAH's notes <José Aparicio - Last Filed: 08/31/24 05:22>
[2024-08-26] MEDS: Levofloxacin 750mg IV 750 MG/150 ML BAG IV SCH (08:07)
[2024-08-26] MEDS: PNEUMOCOCCAL VACCINE 0.5 ML IMVAC ONE (11:00)
[2024-08-26] MEDS: INFLUENZA VACCINE (for 6+ mo) 0.5 ML DOSE IMVAC ONE (11:00)
--- NOTE | 2024-08-26 16:34 | EKG ---
Test Date: 2024-08-25 Test Time: 16:07:59 [employer]itness Program Coordinator: NOAM MEASUREMENT RESULTS: Intervals: Rate: 69 DC: 156 QRSD: 80 QT: 374 QTc: 400 Lambert: P: 74 DC: 156 QRS: -33 T: 51 INTERPRETIVE STATEMENTS: Normal sinus rhythm Left axis deviation Cannot rule out Inferior infarct, age undetermined Abnormal ECG Compared to ECG 08/17/2024 17:43:32 No significant changes Electronically Signed On 08-26-24 16:32:00 CDT by Michael Urrutia
[2024-08-26] MEDS: ALPRAZOLAM 0.25 MG TABLET PO PRN (20:06)
[2024-08-26] MEDS ORDERED: GLUCAGON 1 MG/VIAL IM PRN (21:38)
[2024-08-26] MEDS ORDERED: D10W 125 ML IV PRN (21:38)
[2024-08-27] MEDS: INSULIN REGULAR (HUMAN) 100 UNIT/ML SQ SCH (09:15)
--- NOTE | 2024-08-27 11:19 | P.PN ---
Date of Service: 08/27/24 subjective homeless, plan possible SNF after DC pain controlled with prn analgeics Review of Systems Per HPI Physical Examination - Physical Exam General: In no apparent distress, oriented x 3 HEENT: Atraumatic, Normocephalic Neck: Supple, 2+ carotid pulse no bruit Respiratory: Normal air movement, unlabored Cardiovascular: Normal pulses, Regular rate/rhythm Capillary refill: <2 Seconds Gastrointestinal: Normal bowel sounds, Soft and benign Musculoskeletal: Generalized weakness Integumentary: Other left lower extremity leg blisters, forehead bruising, Neurological: No focal deficits, answers questions appropriately Assessment and Plan - - Plan Assessment plan Intractable left lower extremity leg pain Leg blisters Eval for autoimmune disease, immune immunocompromised started on solumedrol hypotension Sepsis workup, IV fluid, culture He does not remember if he took too many blood pressure medications Diabetes type 2 unknown control Hypoglycemic episodes Accu-Chek, Blood glucose 47, 33, 43 elevated after started on solumedrol ssI started, lantus at bedtime ordered Moderate generalized weakness Degenerative joint disease CT of the head rule out CVA PT eval, to assess gait, DME needs Fall precaution CT Degenerative changes of the hip joints and lower lumbar spine. 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 Events of the last 24 hours have been noted. Case discussed with SARAH. I performed a substantial part of the MDM during this patient's care today. I personally made or approved the documented management plan and acknowledge its risk of complications. I agree with the findings and documentation provided in the SARAH's notes <José Aparicio - Last Filed: 08/31/24 05:22>
[2024-08-27 13:43] LABS: Absolute Eosinophils 0.2 K/uL (0-0.5); Absolute Lymphocytes (CBC) 1.1 K/uL (0.7-4.9); Absolute Monocytes 0.7 K/uL (0.1-1.3); Basophils % 0.5 % (0-1.3); Eosinophils % 2.4 % (0-4.4); Hematocrit 36.5 % (39.6-49.0); Lymphocytes % 13.2 % (15.3-44.8); MCH 28.7 pg (27.0-35.0); MCHC 32.9 g/dL (32.0-36.0); MCV 87.3 fL (80-100); MPV 7.5 fL (7.6-11.3); Monocytes % 9.3 % (3.3-12.3); Neutrophils % 74.6 % (41.7-73.7); Platelets 270 thou/uL (152-406); RBC Red Blood Cell Count 4.18 M/uL (4.33-5.43); Red Cell Distribution Width 14.7 % (12.1-15.2)
[2024-08-27 14:00] LABS: Anion Gap 10.1 mEq/L (5.0-15.0); Magnesium 1.9 mg/dL (1.6-2.4); Potassium 5.1 mEq/L (3.5-5.1)
[2024-08-27] MEDS: AMLODIPINE 5 MG TAB PO ONE (14:01)
[2024-08-27] MEDS: LOSARTAN POTASSIUM 50 MG TABLET PO ONE (14:01)
[2024-08-27] MEDS: METHYLPREDNISOLONE 125 MG INJ IV ONE (14:01)
[2024-08-27] MEDS: GABAPENTIN 300 MG CAP PO ONE (14:01)
[2024-08-27] MEDS: HYDROCODONE/APAP 7.5/325 MG TAB PO PRN (14:01)
[2024-08-27] MEDS: METHYLPREDNISOLONE 40 MG INJ IV SCH (17:09)
[2024-08-27 18:55] LABS: Specific Gravity 1.015 (1.005-1.030); Urine Bilirubin NEGATIVE (Negative); Urine Blood Negative (Negative); Urine Clarity Clear (Clear); Urine Color Light-Yellow (Yellow); Urine Glucose 3+ (Negative); Urine Ketones NEGATIVE (Negative); Urine Microscopic Reflex YN NO UMIC; Urine Nitrite NEGATIVE (Negative); Urine Protein NEGATIVE (Negative); Urine Urobilinogen Normal (Normal)
[2024-08-27] MEDS: LOSARTAN POTASSIUM 50 MG TABLET PO SCH (20:57)
[2024-08-27] MEDS: INSULIN GLARGINE 100 UNIT/ML SQ ONE (22:59)
--- NOTE | 2024-08-28 07:20 | P.PN ---
Date of Service: 08/28/24 subjective LLE blisters slightly improving, No acute issues, Review of Systems Per HPI Physical Examination - Physical Exam General: In no apparent distress, oriented x 3 HEENT: Atraumatic, Normocephalic Neck: Supple, 2+ carotid pulse no bruit Respiratory: Normal air movement, unlabored Cardiovascular: Normal pulses, Regular rate/rhythm Capillary refill: <2 Seconds Gastrointestinal: Normal bowel sounds, Soft and benign Musculoskeletal: Generalized weakness Integumentary: Other left lower extremity leg blisters, forehead bruising, Neurological: No focal deficits, answers questions appropriately Assessment and Plan - Plan Assessment plan Intractable left lower extremity leg pain Leg blisters 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- bullous pemphigoid, Eval for autoimmune disease, immune immunocompromised will need to follow up RA after DC to eval autoimmune disorders Levquin cont po QOD x 2 more doses to prevent skin infection hypotension Sepsis workup, IV fluid, culture He does not remember if he took too many blood pressure medications Diabetes type 2 unknown control Hypoglycemic episodes Accu-Chek, Blood glucose 47, 33, 43 Moderate generalized weakness Degenerative joint disease CT of the head rule out CVA PT eval, to assess gait, DME needs Fall precaution CT Degenerative changes of the hip joints and lower lumbar spine. 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 Events of the last 24 hours have been noted. Case discussed with SARAH. I performed a substantial part of the MDM during this patient's care today. I personally made or approved the documented management plan and acknowledge its risk of complications. I agree with the findings and documentation provided in the SARAH's notes <José Aparicio - Last Filed: 08/31/24 05:23>
[2024-08-28] MEDS: GABAPENTIN 300 MG CAP PO SCH (09:04)
[2024-08-28] MEDS: AMLODIPINE 10 MG TAB PO SCH (09:04)
[2024-08-28] MEDS: INSULIN REGULAR (HUMAN) 100 UNIT/ML SQ SCH (09:05)
[2024-08-28] MEDS: INSULIN GLARGINE 100 UNIT/ML SQ SCH (09:05)
[2024-08-28] MEDS: PNEUMOCOCCAL VACCINE 0.5 ML IMVAC ONE (09:07)
[2024-08-28] MEDS: INFLUENZA VACCINE (for 6+ mo) 0.5 ML DOSE IMVAC ONE (09:07)
[2024-08-28 13:13] LABS: Absolute Lymphocytes (CBC) 0.7 K/uL (0.7-4.9); Absolute Monocytes 0.4 K/uL (0.1-1.3); Absolute Neutrophil 12.2 K/uL (1.8-8.0); Basophils % 0.1 % (0-1.3); Hematocrit 36.4 % (39.6-49.0); Hemoglobin 11.8 g/dL (13.6-17.9); Lymphocytes % 5.6 % (15.3-44.8); MCH 28.6 pg (27.0-35.0); MCHC 32.5 g/dL (32.0-36.0); MCV 88.1 fL (80-100); MPV 7.8 fL (7.6-11.3); Monocytes % 2.7 % (3.3-12.3); Neutrophils % 91.6 % (41.7-73.7); Platelets 301 thou/uL (152-406); RBC Red Blood Cell Count 4.13 M/uL (4.33-5.43); Red Cell Distribution Width 14.2 % (12.1-15.2)
[2024-08-28 13:34] LABS: Magnesium 1.9 mg/dL (1.6-2.4)
[2024-08-28] MEDS: INSULIN REGULAR (HUMAN) 100 UNIT/ML SQ ONE (15:10)
[2024-08-29] MEDS: FLU (Fluarix Triv) TS24-25(6MOS UP)/PF 45 MCG/0.5 ML Syringe IM ONE (14:00)
[2024-08-29] MEDS: PNEUMOCOCCAL VACCINE 0.5 ML IMVAC ONE (16:33)
--- NOTE | 2024-08-29 17:26 | P.PN ---
Subjective Date of Service: 08/29/24 Chief Complaint: Hypotension Subjective: Improving (no c/o, wanting to go to [facility]) <Ora Bergeronlen - Last Filed: 08/29/24 17:26> Date of Service: 08/29/24 <José Aparicio - Last Filed: 08/31/24 05:23> Review of Systems 10-point ROS is otherwise unremarkable General: Unremarkable Eyes: Unremarkable ENT: Unremarkable Respiratory: Unremarkable Cardiovascular: Unremarkable Gastrointestinal: Unremarkable Genitourinary: Unremarkable Musculoskeletal: Unremarkable Integumentary: Unremarkable Neurological: Unremarkable Lymphatics: Unremarkable <Ora Bergeron - Last Filed: 08/29/24 17:26> Physical Examination - Vital Signs Temperature: 98 F Blood Pressure: 117/59 Pulse: 84 Respirations: 16 Pulse Ox (%): 96 - Physical Exam General: Alert, In no apparent distress, Oriented x3, Other (right facial healing abrasions) HEENT: Normocephalic, PERRLA Neck: Supple Respiratory: Normal air movement Cardiovascular: Regular rate/rhythm Capillary refill: <2 Seconds Gastrointestinal: Normal bowel sounds Musculoskeletal: No clubbing Integumentary: No rashes Neurological: Normal speech, Normal tone, Normal affect Lymphatics: No axilla or inguinal lymphadenopathy External genitalia: Deferred Rectal: Deferred <Ora Bergeron - Last Filed: 08/29/24 17:26> - Studies Microbiology Data (last 24 hrs): 08/25/24 16:09 Blood - Blood Aerobic Blood Culture - Final No growth in 5 days. 08/25/24 16:09 Blood - Blood Anaerobic Blood Culture - Final No growth in 5 days. 08/25/24 13:59 Blood - Blood Aerobic Blood Culture - Final No growth in 5 days. 08/25/24 13:59 Blood - Blood Anaerobic Blood Culture - Final No growth in 5 days. <José Aparicio - Last Filed: 08/31/24 05:23> Assessment And Plan - Plan Assessment & Plan - Problems (Diagnosis) (1) Hypotension Current Visit: Yes Status: Acute (2) PAUL (acute kidney injury) Current Visit: No Status: Acute (3) Chronic kidney disease Current Visit: No Status: Acute (4) History of CVA (cerebrovascular accident) Current Visit: No Status: Acute - Plan Plan: 1. Continue with IV fluids 2. Continue with IV antibiotics 3. Continue with IV steroids for the bullous lesions 4. Patient homeless and will arrange for placement at this time 5. Strict blood pressure and blood sugar control 6. GI DVT prophylaxis Discharge Plan: Home/[facility] Plan to discharge in: 24 hours - Advance Directives Does patient have a Living Will: No Does patient have a Durable POA for Healthcare: No - Code Status/Comfort Care Code Status Assessed: Yes Code Status: Full Code Critical Care: No Plan to discharge in: 24 Hours - Code Status/Comfort Care Code Status Assessed: Yes (Full) Time Spent Managing PTS Care (In Minutes): 25 <Ora Bergeron - Last Filed: 08/29/24 17:26> - Current Problems (Diagnosis) (1) Hypotension Current Visit: Yes Status: Acute (2) PAUL (acute kidney injury) Current Visit: No Status: Acute (3) Chronic kidney disease Current Visit: No Status: Acute (4) History of CVA (cerebrovascular accident) Current Visit: No Status: Acute <José Aparicio - Last Filed: 08/31/24 05:23> Date of Service: 08/29/24 Chart has been reviewed. Events of the last 24 hours have been noted. Case discussed with SARAH. I performed a substantial part of the MDM during this patient's care today. I personally made or approved the documented management plan and acknowledge its risk of complications. I agree with the findings and documentation provided in the SARAH's notes <José Aparicio - Last Filed: 08/31/24 05:23>
[2024-08-30 07:44] LABS: Absolute Monocytes 0.5 K/uL (0.1-1.3); Absolute Neutrophil 12.7 K/uL (1.8-8.0); Hematocrit 35.8 % (39.6-49.0); Hemoglobin 11.9 g/dL (13.6-17.9); Lymphocytes % 7.2 % (15.3-44.8); MCHC 33.3 g/dL (32.0-36.0); MPV 7.8 fL (7.6-11.3); Monocytes % 3.4 % (3.3-12.3); Neutrophils % 89.4 % (41.7-73.7); Platelets 358 thou/uL (152-406); RBC Red Blood Cell Count 4.11 M/uL (4.33-5.43); Red Cell Distribution Width 14.7 % (12.1-15.2)
[2024-08-30 08:03] LABS: ALT/SGPT 15 U/L (16-61); Albumin 2.8 g/dL (3.4-5.0); Albumin/Globulin Ratio 0.8 (1.1-1.8); Alkaline Phosphatase 85 U/L (45-117); Anion Gap 9.7 mEq/L (5.0-15.0); BUN Blood Urea Nitrogen 59 mg/dL (7-18); Bicarbonate 27 mEq/L (21-32); Bilirubin Total 0.3 mg/dL (0.2-1.0); Globulin 3.6 g/dL (2.3-3.5); Glomerular Filtration Rate 44 ml/min (=/>90); Glucose Level 168 mg/dL (74-106); Potassium 4.7 mEq/L (3.5-5.1); Protein, Total 6.4 g/dL (6.4-8.2); Sodium Level 138 mEq/L (136-145)
[2024-08-30 08:05] LABS: AST/SGOT < 10 U/L (15-37)
[2024-08-30] MEDS: levoFLOXacin 750 MG TAB PO SCH (08:30)
[2024-08-30 09:54] LABS: Blood Morphology Comment NOT SEEN (NOT SEEN); Platelet Estimate ADEQ; White Blood Cell Scan OK (OK)
--- NOTE | 2024-08-30 13:38 | P.PN ---
Subjective Date of Service: 08/30/24 Chief Complaint: Hypotension Subjective: Improving no c/o, denies fever, chills, pain <Ora Bergeron - Last Filed: 08/30/24 16:18> Date of Service: 08/30/24 <José Aparicio - Last Filed: 08/31/24 05:23> Review of Systems 10-point ROS is otherwise unremarkable General: Unremarkable Eyes: Unremarkable ENT: Unremarkable Respiratory: Unremarkable Cardiovascular: Unremarkable Gastrointestinal: Unremarkable Musculoskeletal: Unremarkable Integumentary: Other (states lesions seem to be improving) Neurological: Unremarkable Lymphatics: Unremarkable <Ora Bergeron - Last Filed: 08/30/24 16:18> Physical Examination - Vital Signs Temperature: 98.3 F Blood Pressure: 133/72 Pulse: 59 Respirations: 17 Pulse Ox (%): 98 - Physical Exam General: Alert, In no apparent distress, Oriented x3 HEENT: Normocephalic, Other (abrasions to right side of face) Neck: Supple Respiratory: Normal air movement Cardiovascular: Normal pulses, Regular rate/rhythm, Other (bradycardia) Capillary refill: <2 Seconds Gastrointestinal: Normal bowel sounds Musculoskeletal: No clubbing Integumentary: Other (left lower ext with bullous, serous filled areas from medial thigh to lower central ankle. Some areas seem to be decreasing in size and leaving an erythematous oval. the bullae are now loose and not tightly filled) Neurological: Normal speech, Normal tone, Normal affect Lymphatics: No axilla or inguinal lymphadenopathy External genitalia: Deferred Rectal: Deferred <Ora Bergeron - Last Filed: 08/30/24 16:18> - Studies Microbiology Data (last 24 hrs): 08/25/24 16:09 Blood - Blood Aerobic Blood Culture - Final No growth in 5 days. 08/25/24 16:09 Blood - Blood Anaerobic Blood Culture - Final No growth in 5 days. 08/25/24 13:59 Blood - Blood Aerobic Blood Culture - Final No growth in 5 days. 08/25/24 13:59 Blood - Blood Anaerobic Blood Culture - Final No growth in 5 days. <José Aparicio - Last Filed: 08/31/24 05:23> Assessment And Plan - Plan - Problems (Diagnosis) (1) Hypotension Current Visit: Yes Status: Acute (2) PAUL (acute kidney injury) Current Visit: No Status: Acute (3) Chronic kidney disease Current Visit: No Status: Acute (4) History of CVA (cerebrovascular accident) Current Visit: No Status: Acute Plan: 1. Continue with IV fluids - discontinued post 1000ml 2. Continue with IV antibiotics - switched to po Levaquin q 48h on 08/30/24 3. Continue with IV steroids for the bullous lesions - started on 08/27/25 at 1800, followed by an increase in WBC to 13.4 and 08/30/24 to 14.3 with decrease noted in the Neutrophil % 4. Patient homeless and will arrange for placement at this time (continuing to attempt placement 08/30/24) 5. Strict blood pressure and blood sugar control - BP 08/29-08/30 with SBP 119- 139, Glucose remains variable 6. GI DVT prophylaxis Discharge Plan: Home/[facility]/placement Plan to discharge in: 24 hours - Advance Directives Does patient have a Living Will: No Does patient have a Durable POA for Healthcare: No - Code Status/Comfort Care Code Status Assessed: Yes Code Status: Full Code Critical Care: No Discharge Plan: Home Plan to discharge in: 24 Hours - Code Status/Comfort Care Code Status Assessed: Yes (Full) Time Spent Managing PTS Care (In Minutes): 28 <Ora Bergeron - Last Filed: 08/30/24 16:18> - Current Problems (Diagnosis) (1) Hypotension Current Visit: Yes Status: Acute (2) PAUL (acute kidney injury) Current Visit: No Status: Acute (3) Chronic kidney disease Current Visit: No Status: Acute (4) History of CVA (cerebrovascular accident) Current Visit: No Status: Acute <José Aparicio - Last Filed: 08/31/24 05:23> Date of Service: 08/30/24 Chart has been reviewed. Events of the last 24 hours have been noted. Case discussed with SARAH. I performed a substantial part of the MDM during this patient's care today. I personally made or approved the documented management plan and acknowledge its risk of complications. I agree with the findings and d ocumentation provided in the SARAH's notes <José Aparicio - Last Filed: 08/31/24 05:23>
--- NOTE | 2024-08-31 07:01 | P.PN ---
Date of Service: 08/31/24 subjective LLE blistersimproving, Pain controlled with as needed analgesics, gabapentin Pending discharge plans to [facility] facility authorization Review of Systems Review of systems negative unless listed HPI Physical Examination - Physical Exam General: In no apparent distress, oriented x 3 HEENT: Atraumatic, Normocephalic Neck: Supple, 2+ carotid pulse no bruit Respiratory: Normal air movement, unlabored Cardiovascular: Normal pulses, Regular rate/rhythm Capillary refill: <2 Seconds Gastrointestinal: Normal bowel sounds, Soft and benign Musculoskeletal: Generalized weakness Integumentary: Other left lower extremity leg blisters, forehead bruising, Neurological: No focal deficits, answers questions appropriately Assessment and Plan - Plan Assessment plan Intractable left lower extremity leg pain improved Leg blisters 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, improved Eval for autoimmune disease, immune immunocompromised will need to follow up RA after DC to eval autoimmune disorders Levquin cont po QOD x 2 more doses to prevent skin infection Follow-up with rheumatology after discharge hypotension resolved Sepsis workup, IV fluid, culture He does not remember if he took too many blood pressure medications Hyperglycemia with Solu-Medrol Diabetes type 2 unknown control Hypoglycemic episodes improved Accu-Chek, Blood glucose 47, 33, 43 Start long-acting insulin Moderate generalized weakness improved Degenerative joint disease CT of the head rule out CVA PT eval, to assess gait, DME needs Fall precaution CT Degenerative changes of the hip joints and lower lumbar spine. 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
[2024-08-31] MEDS: predniSONE 20 MG TAB PO SCH (08:44)
[2024-09-01 05:41] LABS: Absolute Lymphocytes (CBC) 1.3 K/uL (0.7-4.9); Absolute Monocytes 1.2 K/uL (0.1-1.3); Absolute Neutrophil 10.2 K/uL (1.8-8.0); Basophils % 0.2 % (0-1.3); Hematocrit 38.3 % (39.6-49.0); Hemoglobin 12.9 g/dL (13.6-17.9); Lymphocytes % 10.1 % (15.3-44.8); MCHC 33.6 g/dL (32.0-36.0); MCV 86.5 fL (80-100); MPV 7.4 fL (7.6-11.3); Monocytes % 9.5 % (3.3-12.3); Platelets 363 thou/uL (152-406); RBC Red Blood Cell Count 4.43 M/uL (4.33-5.43); Red Cell Distribution Width 14.4 % (12.1-15.2)
[2024-09-01 05:42] LABS: Neutrophils % 80.2 % (41.7-73.7)
[2024-09-01 05:51] LABS: Anion Gap 7.9 mEq/L (5.0-15.0); Potassium 4.9 mEq/L (3.5-5.1)
--- NOTE | 2024-09-01 08:21 | P.PN ---
Subjective Date of Service: 09/01/24 Chief Complaint: Hypotension Subjective: No new changes no c/o, denies fever, chills, pain Review of Systems 10-point ROS is otherwise unremarkable General: Unremarkable Eyes: Unremarkable ENT: Unremarkable Respiratory: Unremarkable Cardiovascular: Unremarkable Gastrointestinal: Unremarkable Genitourinary: Unremarkable Musculoskeletal: Unremarkable Integumentary: As per HPI (improving, drying ) Neurological: Unremarkable Lymphatics: Unremarkable Physical Examination - Vital Signs Temperature: 97 F Blood Pressure: 140/77 Pulse: 86 Respirations: 18 Pulse Ox (%): 99 - Physical Exam General: Alert, In no apparent distress, Oriented x3 HEENT: Atraumatic, Normocephalic, Other (abrasions to right face fading) Neck: Supple Respiratory: Clear to auscultation bilaterally Cardiovascular: Normal pulses, Regular rate/rhythm Capillary refill: <2 Seconds Gastrointestinal: Normal bowel sounds Musculoskeletal: No clubbing Integumentary: Other (erythematous bullae to left lower ext with evidence of drying, will continue steroids) Neurological: Normal speech, Normal tone, Normal affect Lymphatics: No axilla or inguinal lymphadenopathy External genitalia: Deferred Rectal: Deferred Assessment And Plan - Plan - Problems (Diagnosis) (1) Hypotension Current Visit: Yes Status: Acute (2) PAUL (acute kidney injury) Current Visit: No Status: Acute (3) Chronic kidney disease Current Visit: No Status: Acute (4) History of CVA (cerebrovascular accident) Current Visit: No Status: Acute Plan: 1. Continue with IV fluids - discontinued post 1000ml 2. Continue with IV antibiotics - switched to po Levaquin q 48h on 08/30/24 3. Continue with IV steroids for the bullous lesions - started on 08/27/25 at 1800, followed by an increase in WBC to 13.4 and 08/30/24 to 14.3 with decrease noted in the Neutrophil % 4. Patient homeless and will arrange for placement at this time (continuing to attempt placement 08/30/24) 5. Strict blood pressure and blood sugar control - BP 08/29-08/30 with SBP 119- 139, Glucose remains variable 6. GI DVT prophylaxis 09/01/24 BP stable 140s/80s Levaquin q 48. Creatinine down from 2.1 to 1.59 Steroids continue - drying of bullae noted, WBC down to 12.8, continued decrease in neutrophil % awaiting placement - possibly Glo Ct FSBS in 100-200 range Discharge Plan: Home/[facility]/placement Plan to discharge in: 24 hours - Advance Directives Does patient have a Living Will: No Does patient have a Durable POA for Healthcare: No - Code Status/Comfort Care Code Status Assessed: Yes Code Status: Full Code Critical Care: No Time Spent Managing PTS Care (In Minutes): 25
[2024-09-02 06:18] VITALS: BP 119/64; TEMP 97.6
[2024-09-02 06:31] LABS: Absolute Lymphocytes (CBC) 1.1 K/uL (0.7-4.9); Absolute Neutrophil 10.8 K/uL (1.8-8.0); Basophils % 0.2 % (0-1.3); Hematocrit 37.4 % (39.6-49.0); Hemoglobin 12.7 g/dL (13.6-17.9); Lymphocytes % 8.4 % (15.3-44.8); MCH 29.2 pg (27.0-35.0); MCHC 33.8 g/dL (32.0-36.0); MCV 86.4 fL (80-100); MPV 7.2 fL (7.6-11.3); Neutrophils % 83.4 % (41.7-73.7); Platelets 322 thou/uL (152-406); RBC Red Blood Cell Count 4.33 M/uL (4.33-5.43); Red Cell Distribution Width 14.4 % (12.1-15.2)
[2024-09-02 06:47] LABS: Anion Gap 8.1 mEq/L (5.0-15.0); Potassium 5.1 mEq/L (3.5-5.1)
--- NOTE | 2024-09-02 08:37 | P.PN ---
Subjective Date of Service: 09/02/24 Chief Complaint: Hypotension Subjective: Improving Bullae continue to dry out no c/o, denies fever, chills, pain Review of Systems 10-point ROS is otherwise unremarkable General: Unremarkable Eyes: Unremarkable ENT: Unremarkable Respiratory: Unremarkable Cardiovascular: Unremarkable Gastrointestinal: Unremarkable Genitourinary: Unremarkable Musculoskeletal: Unremarkable Integumentary: Unremarkable Neurological: Unremarkable Lymphatics: Unremarkable Physical Examination - Vital Signs Temperature: 97.6 F Blood Pressure: 119/64 Pulse: 60 Respirations: 19 Pulse Ox (%): 97 - Physical Exam General: Alert, In no apparent distress, Oriented x3 HEENT: Atraumatic, Normocephalic Neck: Supple Respiratory: Normal air movement Cardiovascular: Normal pulses, Regular rate/rhythm Capillary refill: <2 Seconds Gastrointestinal: Normal bowel sounds Musculoskeletal: No clubbing, No swelling Integumentary: Other (drying bullae to left medial leg, fading abrasions to right face) Neurological: Normal speech, Normal tone, Normal affect Lymphatics: No axilla or inguinal lymphadenopathy External genitalia: Deferred Rectal: Deferred Assessment And Plan - Plan - Problems (Diagnosis) (1) Hypotension Current Visit: Yes Status: Acute (2) PAUL (acute kidney injury) Current Visit: No Status: Acute (3) Chronic kidney disease Current Visit: No Status: Acute (4) History of CVA (cerebrovascular accident) Current Visit: No Status: Acute Plan: 1. Continue with IV fluids - discontinued post 1000ml 2. Continue with IV antibiotics - switched to po Levaquin q 48h on 08/30/24 3. Continue with IV steroids for the bullous lesions - started on 08/27/25 at 1800, followed by an increase in WBC to 13.4 and 08/30/24 to 14.3 with decrease noted in the Neutrophil % 4. Patient homeless and will arrange for placement at this time (continuing to attempt placement 08/30/24) 5. Strict blood pressure and blood sugar control - BP 08/29-08/30 with SBP 119- 139, Glucose remains variable 6. GI DVT prophylaxis 09/01/24 BP stable 140s/80s Levaquin q 48. Creatinine down from 2.1 to 1.59 Steroids continue - drying of bullae noted, WBC down to 12.8, continued decrease in neutrophil % awaiting placement - possibly Glo Ct FSBS in 100-200 range 09/02/24 creatinine creeping back up, levaquin completed, stop Norvasc steroids continue - drying bullae, WBC normal still awaiting placement encourage po water with steroids Discharge Plan: Home/[facility]/placement Plan to discharge in: 24 hours - Advance Directives Does patient have a Living Will: No Does patient have a Durable POA for Healthcare: No - Code Status/Comfort Care Code Status Assessed: Yes Code Status: Full Code Critical Care: No Plan to discharge in: 24 Hours
--- NOTE | 2024-09-02 09:05 | P.DS ---
Admission Date: 08/25/24 Discharge Date: 09/02/24 Disposition: TRANSFER TO SNF - REHAB Reason for Admission: Hypotension Consultations: none Procedures: none Brief History of Present Illness: Patient is a 55-year-old gentleman came to the hospital after being discharged from [facility] after a 5-day stay. Patient was also recently discharged from our hospital after a CVA. Patient was discharged less than [address] [facility]. Patient states he got into a disagreement with the primary care provider and he was discharged. Will try to get records from [facility]. Patient has been running fevers with shakes and chills. Patient denies any new complaints. Homeless and he has multiple lesions on the right side of his face. He looks sunburn. He also has bullae's on the left leg. There is some erythema around some of them. He says they have been there for the last few weeks. He is not sure exactly what is causing those. He denies any shakes and chills. He has been febrile and has not been feeling well. He also takes some pain medication. He is estranged from his daughter who lives in [place]. He states he is pretty much homeless. Patient was found to have a blood pressure of 80/50 in the emergency room. Patient was tachycardic with heart rates in the 110s. Emergency room physician spoke to the patient and patient was pancultured. Patient will be admitted to the hospital for further evaluation. Hospital Course: Assessment plan, Intractable left lower extremity leg pain Leg blisters 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 Last dose 09/01/24 He does not remember if he took too many blood pressure medications Diabetes type 2 unknown control Hypoglycemic episodes Accu-Chek, Blood glucose 47, 33, 43 elevated after started on solumedrol ssI started, lantus at bedtime ordered Moderate generalized weakness Degenerative joint disease CT of the head rule out CVA PT eval, to assess gait, DME needs Fall precaution CT Degenerative changes of the hip joints and lower lumbar spine. Acute on chronic renal insufficiency Trend kidney function Gentle IV fluids Encourage po water. Stopped amlodipine. 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 - accepted to [facility] today Vital Signs/Physical Exam: Temp Pulse Resp BP Pulse Ox 97.6 F 60 19 119/64 97 09/02/24 08:37 09/02/24 08:37 09/02/24 08:37 09/02/24 08:37 09/02/24 08:37 General: Alert, In no apparent distress, Oriented x3 HEENT: Atraumatic, Normocephalic Neck: Supple Respiratory: Normal air movement Cardiovascular: No edema, Normal pulses, Regular rate/rhythm Capillary refill: <2 Seconds Gastrointestinal: Normal bowel sounds Musculoskeletal: No clubbing, No swelling Integumentary: Other (healing abrasion to right face, drying bullae to left medial leg) Neurological: Normal speech, Normal tone, Normal affect Lymphatics: No axilla or inguinal lymphadenopathy External genitalia: Deferred Rectal: Deferred Laboratory Data at Discharge: WBC 12.90 thou/uL (4.3-10.9) H 09/02/24 06:21 Hgb 12.7 g/dL (13.6-17.9) L 09/02/24 06:21 Hct 37.4 % (39.6-49.0) L 09/02/24 06:21 Plt Count 322 thou/uL (152-406) 09/02/24 06:21 PT 12.4 SECONDS (9.4-12.5) 08/25/24 13:59 INR 1.11 08/25/24 13:59 APTT 34.9 SECONDS (24.3-36.9) 08/25/24 13:59 Sodium 135 mEq/L (136-145) L 09/02/24 06:21 Potassium 5.1 mEq/L (3.5-5.1) 09/02/24 06:21 BUN 62 mg/dL (7-18) H 09/02/24 06:21 Creatinine 1.80 mg/dL (0.70-1.30) H 09/02/24 06:21 Glucose 316 mg/dL (74-106) H 09/02/24 06:21 Phosphorus 3.5 mg/dL (2.5-4.9) 08/26/24 04:56 Magnesium 1.9 mg/dL (1.6-2.4) 08/28/24 13:03 Total Bilirubin 0.3 mg/dL (0.2-1.0) 08/30/24 07:13 AST < 10 U/L (15-37) L 08/30/24 07:13 ALT 15 U/L (16-61) L 08/30/24 07:13 Alkaline Phosphatase 85 U/L (45-117) 08/30/24 07:13 Home Medications: Alcohol Antiseptic Pads [Alcohol Swabs] 1 each TP TID #1 box 09/02/24 Blood Sugar Diagnostic [Blood Glucose Test Strip] 1 each MC TID #90 strip 09/02/24 Blood-Glucose Meter [Blood Glucose Monitoring] 1 each MC TID #1 kit 09/02/24 Insulin Glargine,Hum.rec.anlog [Lantus Solostar] 20 unit SQ BID #30 ml 09/02/24 Insulin Glargine,Hum.rec.anlog [Semglee] 20 unit SQ BID ml 09/02/24 Insulin Regular, Human [Novolin R] See Protocol SQ ACHS ml 09/02/24 Lancets 1 each MC TID #100 ea 09/02/24 Losartan Potassium [Cozaar*] 50 mg PO BID 09/02/24 Syrge-Ndl,Ins 0.3 ml Half Daniel [Insulin Syringe] 1 each MC TID #1 box 09/02/24 predniSONE [Deltasone] 5 mg PO DAILY #10 tab 09/02/24 predniSONE [Prednisone*] 20 mg PO TID #11 tab 09/02/24 New Medications: Alcohol Antiseptic Pads [Alcohol Swabs] 1 each TP TID #1 box Blood-Glucose Meter [Blood Glucose Monitoring] 1 each MC TID #1 kit Blood Sugar Diagnostic [Blood Glucose Test Strip] 1 each MC TID #90 strip Syrge-Ndl,Ins 0.3 ml Half Daniel [Insulin Syringe] 1 each MC TID #1 box Lancets 1 each MC TID #100 ea Insulin Glargine,Hum.rec.anlog [Lantus Solostar] 20 unit SQ BID #30 ml predniSONE [Prednisone*] 20 mg PO TID #11 tab predniSONE [Deltasone] 5 mg PO DAILY #10 tab Physician Discharge Instructions: Assessment plan, Intractable left lower extremity leg pain Leg blisters 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 Last dose 09/01/24 He does not remember if he took too many blood pressure medications Diabetes type 2 unknown control Hypoglycemic episodes Accu-Chek, Blood glucose 47, 33, 43 elevated after started on solumedrol ssI started, lantus at bedtime ordered Moderate generalized weakness Degenerative joint disease CT of the head rule out CVA PT eval, to assess gait, DME needs Fall precaution CT Degenerative changes of the hip joints and lower lumbar spine. Acute on chronic renal insufficiency Trend kidney function Gentle IV fluids Encourage po water. Stopped amlodipine. 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
[2024-09-02 10:04] VITALS: O2SAT 98
== END 2024-09-02 12:32 | DRG 596 ==
LOC: ER 15:41 → ERHOLD 16:56 → 2ND 17:40
PROVIDERS: ADMIT Hospitalist; ATTEND Internal Medicine Sleep Medicine
DX: L12.0 Bullous pemphigoid (principal); Z59.00 Homelessness unspecified; N17.9 Acute kidney failure, unspecified; S80.822A Blister (nonthermal), left lower leg, initial encounter; D89.89 Other specified disorders involving the immune mechanism, not elsewhere classified; E78.00 Pure hypercholesterolemia, unspecified; I12.9 Hypertensive chronic kidney disease with stage 1 through stage 4 chronic kidney disease, or unspecified chronic kidney disease; N18.9 Chronic kidney disease, unspecified; E11.22 Type 2 diabetes mellitus with diabetic chronic kidney disease; E11.649 Type 2 diabetes mellitus with hypoglycemia without coma; D63.1 Anemia in chronic kidney disease; D50.9 Iron deficiency anemia, unspecified; S00.81XA Abrasion of other part of head, initial encounter; M19.90 Unspecified osteoarthritis, unspecified site; I95.9 Hypotension, unspecified; R21 Rash and other nonspecific skin eruption; Z86.73 Personal history of transient ischemic attack (TIA), and cerebral infarction without residual deficits; Z79.4 Long term (current) use of insulin; Z79.52 Long term (current) use of systemic steroids; Z79.899 Other long term (current) drug therapy; Z87.891 Personal history of nicotine dependence
CPT/HCPCS: 36415; 71045; 80048; 80053; 81003; 82947; 83605; 83735; 84100; 85025; 85610; 85730; 87040; 93005; 97110; 97116; 97161; 97530; 99285; J0692; J2919; J7030; J7040; J7050; J7512; Q2035

== ENCOUNTER 2025-01-06 09:35 | Inpatient (IN) | payer OTHER ==
--- OUTSIDE RECORDS SUMMARY | 2025-01-06 09:44 | XMS REPORT | Continuity of Care Document ---
Author Name Unknown Address [address] [facility] [address] [place] [address] [facility] Address [address] [facility] [place] [address] Care Team Providers Care Sdc Teacher Name Role Phone RAKESH HAZEL Primary Care Physician Unavailab SHELBY Jarrell Attending Clinician Unavailable SHELBY RAMIREZ Attending Clinician Unavailable Shelby Ramirez MD Attending Clinician [phone] DONI GALAN Attending Clinician Unavailable Doni Felder Attending Clinician [phone] Rupa Conroy Attending Clinician +[phone] Doctor Unassigned, [place] [employer] Attending Clinician U deven Fallon RN, Martell Harrell Attending Clinician Unavail able RAJ GARCIA Attending Clinician Unavailable David Paul DO Attending Clinician [phone] Raj Garcia DO Attending Clinician [phone] FLORENTIN PALACIO Attending Clinician Unavailable Juno Snyder Attending Clinician +[phone] Florentin Palacio MD Attending Clinician +[phone] Benja Pang MD Attending Clinician + [phone] Azar Solomon CRNA Attending Clinician + [phone] MULUGETA PALMA Attending Clinician Unavailable MULUGETA PALMA Attending Clinician Unavailable Mulugeta Palma MD Attending Clinician +[phone] Juno HWANG Attending Clinician Unavailable Juno HWANG Attending Clinician Unavailable VICENTE CALDERA Attending Clinician Unavailable VICENTE CALDERA Attending Clinician Unavailable Vicente Zaldivar Attending Clinician [phone] ZO GREEN Attending Clinician Unavailab Zo Rizzo DO Attending Clinician +[phone] Destiny Caruso Attending Clinician [phone] NANDO HAGAN Attending Clinician Unavailable NANDO HAGAN Attending Clinician Unavailable Nando Hagan MD Attending Clinician [phone] JOHNNY TEE Attending Clinician Unavailable Johnny Tee PA-C Attending Clinician [phone] KVNG FRANK Attending Clinician Unavaila Kvng Marte Attending Clinician [phone] Nargis Moore RN Attending Clinician Unavaila Destiny Zamudio Attending Clinician [phone] BALJIT GAYLE Attending Clinician Unavailable BALJIT GAYLE Attending Clinician Unavailable DL MILLARD Attending Clinician Unavailable Dl Millard MD Attending Clinician + [phone] DAVID PAUL Attending Clinician Unavailable David Paul DO Attending Clinician + [phone] TARA IRELAND Attending Clinician Unavailable Tara Ireland MD Attending Clinician +[phone] DESTINY MULLER Attending Clinician Unavailable Zo Green DO Attending Clinician +[phone] SILAS GREENE Attending Clinician Unavailable SILAS GREENE Attending Clinician Unavailable JACKIE DIAZ Attending Clinician Unavailab Jackie Moore DO Attending Clinician [phone] Lorene Stein Attending Clinician Tl Aranda MD Attending Clinician [phone] TL ARANDA Attending Clinician Unavailable Georgina Garcia RN Attending Clinician Unava ilable Doctor Unassigned, [place] [employer] Attending Clinician U navailable Provider, [facility] Attending Clinician Un available Lesli Kasper Attending Clinician [phone] Pob, [facility] David Attending Clinician UnavailNIMISHA Haywood Attending Clinician Unavail able RICHIERENNYMILLUISITO Attending Clinician Unavailable Darrell Maxwell MD Attending Clinician [phone] Yossi Siddiqi Attending Clinician +[phone] YOSSI PRASAD Attending Clinician Unavailable Idalia RD, Debra Attending Clinician +[phone] IDALIA, DEBRA Attending Clinician Unavailable DARRELL BECKFORD Attending Clinician Darrell Haley MD Attending Clinician + [phone] Chelle Fernandez MD Attending Clinician +[phone] CHELLE FERNANDEZ Attending Clinician Unavailable Markus OSPINA, Natividad Schmidt Attending Clinician Glo Way MD Attending Clinician [phone] GLO FINN Attending Clinician Unavailable Kendall Campa MD Attending Clinician [phone] JOCELYN GREER Attending Clinician UnavailDARRELL Khalil III Attending Clinician UnavailMARIAMA Castro Attending Clinician Unavailron COPELAND, NATIVIDAD SCHMIDT Attending Clinician Unavailab SHELBY Jarrell Admitting Clinician Unavailable RAJ GARCIA Admitting Clinician Unavailable Raj Garcia DO Admitting Clinician [phone] Juno HWANG Admitting Clinician Unavailable VICENTE CALDERA [...] Clinician Unavailable Glo Finn MD Admitting Clinician +[phone] GLO FINN Admitting Clinician Unavailable Payers Payer Name Policy Type Policy Number Effective Date Expirati on Date Source [employer] MEDICARE OUT OF NETWORK [id number] 2023 00:00:00 [facility] (MEDICARE REPLACEMENT HMO) [id number] 2022 00:00:00 MEDICARE PART A \\T\\ B [id number] 2018 00:00:00 2019 00:00:00 COMMERCIAL NON-CONTRACT GENERIC [id number] 2018 00:00:00 2019 00:00:00 Problems Condition Name Condition Details Condition Category Status Onset Date Resolution Date Last Treatment Date Treating Clinician Comments Source Hypoglycem ia Hypoglycem ia Disease Active 2023-11 0- 00:00: 00 [facility] Bacteremia Bacteremia Disease Active 8-01 00:00: 00 [facility] Balance problem Balance problem Disease Active 7-24 00:00: 00 [facility] Omental infarction Omental infarction Disease Active 3-09 00:00: 00 [facility] Psoriasifo rm dermatitis Psoriasifo rm dermatitis Disease Active 8-18 00:00: 00 [facility] Need for 23-polyval ent pneumococc al polysaccha ride vaccine Need for 23-polyval ent pneumococc al polysaccha ride vaccine Disease Active 3-28 00:00: 00 [facility] Cellulitis of foot, left Cellulitis of foot, left Disease Active 5-21 00:00: 00 [facility] Edema of both legs Edema of both legs Disease Active 4-07 00:00: 00 [facility] Erectile dysfunctio n, unspecifie d erectile dysfunctio n type Erectile dysfunctio n, unspecifie d erectile dysfunctio n type Disease Active 4-07 00:00: 00 [facility] Essential hypertensi on Essential hypertensi on Disease Active 4-07 00:00: 00 [facility] Edema of both legs Edema of both legs Disease Active 4-07 00:00: 00 [facility] Erectile dysfunctio n, unspecifie d erectile dysfunctio n type Erectile dysfunctio n, unspecifie d erectile dysfunctio n type Disease Active 02-27 00:00: 00 [facility] Acute midline low back pain without sciatica Acute midline low back pain without sciatica Disease Active 01-18 00:00: 00 [facility] Medicare annual wellness visit, subsequent Medicare annual wellness visit, subsequent Disease Active 12-01 00:00: 00 Overview: Formattin g of this note might be different from the original. Added automatic ally from request for surgery [id number] [facility] Need for hepatitis C screening test Need for hepatitis C screening test Disease Active 2018-11 00:00: 00 [facility] Homeless Homeless Disease Active 2018-11 00:00: 00 [facility] Lesion of matthew Lesion of matthew Disease Active 2018-11 00:00: 00 [facility] Dyslipidem ia Dyslipidem ia Disease Active 2018-11 00:00: 00 [facility] Encounter for screening colonoscop y for non-high-r isk patient Encounter for screening colonoscop y for non-high-r isk patient Disease Active 2018-11 00:00: 00 [facility] 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 Disease Active 2018-11 00:00: 00 [facility] 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) Disease Active 2018-11 00:00: 00 [facility] 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) Disease Active 2018-11 00:00: 00 [facility] Erectile dysfunctio n due to type 2 diabetes mellitus Erectile dysfunctio n due to type 2 diabetes mellitus Disease Active 2018-11 00:00: 00 [facility] Obesity (BMI 30-39.9) Obesity (BMI 30-39.9) Disease Active 03-17 00:00: 00 [facility] Upper respirator y tract infection, unspecifie d type Upper respirator y tract infection, unspecifie d type Disease Resolve d 2018-11 00:00: 00 2021-07-15 00:00:00 2021-07-15 15:36:45 [facility] Allergies, Adverse Reactions, Alerts Allergy Name Allergy Type Status Severity Reaction(s) Onset Date Inactive Date Treating Clinician Comments Source NO KNOWN ALLERGIE S Drug Class Active [facility] Family History Family Member Diagnosis Comments Start Date Stop Date Sourc e Natural father Cancer Unive [facility] Natural mother Cancer Unive [facility] Social History Social Habit Start Date Stop Date Quantity Comments [facility] intake 2024-12-21 00:00:00 2024-12-21 00:00:00 Current non-drinker of alcohol (finding) [facility] Alcohol intake 2024-02-11 00:00:00 2024-02-11 00:00:00 Current non-drinker of alcohol (finding) [facility] Exposure to SARS-CoV-2 (event) 2021-06-10 00:00:00 2021-07-10 10:13:[address] [facility] History of Social function 2021-07-10 00:00:00 2021-07-10 00:00:[address] [facility] Tobacco use and exposure 2019-01-14 00:00:00 2019-01-14 00:00:00 Smokeless tobacco non-user [facility] Sex assigned at 1955 00:00:00 1955 00:00:[address] [facility] Smoking Status Start Date Stop Date Source Never smoked tobacco [facility] Medications Ordered Medication Name Filled Medication Name Start Date Stop Date Current Medication? Ordering Clinician Indication Dosage Frequency Signature (SIG) Comments Components Source HYDROcodone -acetaminop hen (NORCO) 10-325 mg tablet 1 tablet 12-28 13:45: 00 12-28 12:39 :00 No 1{tbl} 1 tablet, Oral, ONCE NOW, 1 dose, On Thu12/28/24 at 0745, Routine [facility] ibuprofen 800 mg tablet 2025-0 2-05 00:00: 00 Yes [id number] 800mg Take 1 tablet by mouth every 8 (eight) hours as needed for Pain (scale 4-6). [facility] mupirocin (BACTROBAN OINT) 2 % oinintment 2023-11 0- 19:00: 00 Yes [facility] Sliding Scale Insulin - Lispro (HumaLOG) 2023-11 0- 17:00: 00 Yes Subcutaneo us, TID MEALS+HS, First dose on Thu08/25/24 at 1200, Until Discontinu ed, Routine [facility] metFORMIN (GLUCOPHAGE ) tablet 500 mg 2023-11 0 17:00: 00 Yes 500mg 500 mg, Oral, BID MEALS, First dose on Thu08/25/24 at 1200, Until Discontinu ed, Routine [facility] atorvastati n (LIPITOR) tablet 20 mg 2023-11 0 02:00: 00 Yes 20mg 20 mg, Oral, QHS, First dose on Thu08/24/24 at 2100, Until Discontinu ed [facility] mupirocin 2 % ointment 2023-11 0 00:00: 00 Yes [id number] Apply to area(s) 3 (three) times daily. [facility] lisinopriL- hydrochloro thiazide 10-12.5 mg per tablet 2023-11 0- 00:00: 00 09-25 04:59 :00 No [id number] 1{tbl} Take 1 tablet by mouth in the morning for 30 days. [facility] furosemide 20 mg tablet 2023-11 0 00:00: 00 09-25 04:59 :00 No [id number] 20mg Take 1 tablet by mouth in the morning for 30 days. [facility] aspirin 81 mg EC tablet 2023-11 0- 00:00: 00 09-25 04:59 :00 No [id number] 81mg Take 1 tablet by mouth in the morning for 30 days. [facility] gabapentin (NEURONTIN) 100 mg capsule 2023-11 0- 00:00: 00 09-25 04:59 :00 No [id number] 200mg Take 2 capsules by mouth in the morning and 2 capsules at noon and 2 capsules in the evening. Do all this for 30 days. [facility] metFORMIN 1,000 mg tablet 2023-11 00:00: 00 09-25 04:59 :00 No [id number] 1000mg Take 1 tablet by mouth in the morning and 1 tablet in the evening. Take with meals. Do all this for 30 days. [facility] simvastatin 40 mg tablet 2023-11 00:00: 00 09-25 04:59 :00 No [id number] 40mg Take 1 tablet by mouth at bedtime for 30 days. [facility] gabapentin (NEURONTIN) capsule 200 mg 2023-11 19:00: 00 Yes 200mg 200 mg, Oral, TID, First dose (after last modificati on) on Thu08/24/24 at 1400, Until Discontinu ed, Routine [facility] D10W 10 % IV infusion 2023-11 17:00: 00 08-25 00:50 :56 No at 50 mL/hr, IV Infusion, CONTINUOUS , Starting on Thu08/24/24 at 1200, Until Thu08/24/24 at 1950, Routine [facility] D10W 10 % IV infusion 2023-11 15:45: 00 08-24 16:52 :00 No at 100 mL/hr, IV Infusion, CONTINUOUS , Starting on Thu08/24/24 at 1045, Until Thu08/24/24 at 1152, Routine [facility] lisinopriL (PRINIVIL,Z ESTRIL) tablet 10 mg 2023-11 14:00: 00 Yes 10mg 10 mg, Oral, DAILY, First dose on Thu08/24/24 at 0900, Until Discontinu ed, Routine [facility] aspirin EC tablet 81 mg 2023-11 14:00: 00 Yes 81mg 81 mg, Oral, DAILY, First dose on Thu08/24/24 at 0900, Until Discontinu ed, Routine [facility] hydroCHLORO thiazide (ESIDRIX) tablet 12.5 mg 2023-11 14:00: 00 08-24 13:33 :00 No 12.5mg 12.5 mg, Oral, DAILY, 1 dose, First dose on Thu08/24/24 at 0900, [facility] 40 mg 2023-11 05:00: 00 Yes 40mg 40 mg, Slow IV Push, DAILY, First dose on Thu08/24/24 at 0000, Until Discontinu ed, Routine [facility] gabapentin (NEURONTIN) capsule 100 mg 2023-11 01:00: 00 08-24 17:10 :41 No 100mg 100 mg, Oral, TID, First dose on Thu08/23/24 at 2000, Until Discontinu ed, Routine [facility] HYDROcodone -acetaminop hen (NORCO 5) tablet 1 tablet 2023-11 00:38: 38 Yes 1{tbl} 1 tablet, Oral, Q6HPRN, Starting on Thu08/23/24 at 1938, Until Discontinu ed, Routine, Pain (scale 7-10) [facility] tiZANidine (ZANAFLEX) tablet 4 mg 2023-11 00:38: 06 Yes 4mg [facility] enoxaparin (LOVENOX) injection 40 mg 2023-11 22:00: 00 Yes 40mg 40 mg, Subcutaneo us, DAILY, First dose on Thu08/23/24 at 1700, Until Discontinu ed, Routine [facility] D10W 10 % IV infusion 2023-11 21:45: 00 08-24 15:36 :54 No at 200 mL/hr, IV Infusion, CONTINUOUS , Starting on Thu08/23/24 at 1645, Until Thu08/24/24 at 1036, Routine [facility] D10W 10 % IV infusion 2023-11 17:00: 00 08-23 21:34 :55 No at 150 mL/hr, IV Infusion, CONTINUOUS , Starting on Thu08/23/24 at 1200, Until Thu08/23/24 at 1634, Routine [facility] glucagon HCL injection 1 mg 2023-11 16:36: 57 Yes 1mg 1 mg, Intramuscu lar, PRN, Starting on Thu08/23/24 at 1136, Until Discontinu ed, RICHARD, Low blood sugar, Blood Glucose < or = 70 mg/dL and patient is NPO, unable to swallow or has mental changes. [facility] dextrose 50 % in water (D50W) injection 25 mL 2023-11 16:36: 57 Yes 25mL 25 mL, Slow IV Push, PRN, Starting on Thu08/23/24 at 1136, Until Discontinu ed, RICHARD, Blood Glucose < or = 70 mg/dL and patient is NPO, unable to swallow or has mental status changes. [facility] dextrose 50 % in water (D50W) injection 50 mL 2023-11 16:00: 00 08-23 15:54 :00 No 50mL 50 mL, Intravenou s, ONCE, 1 dose, On Thu08/23/24 at 1100, STAT [facility] dextrose 50 % in water (D50W) injection 25 mL 2023-11 14:45: 00 08-23 14:41 :00 No 25mL 25 mL, Slow IV Push, ONCE, 1 dose, On Thu08/23/24 at 0945, STAT [facility] insulin NPH (HUMULIN N NPH U-100 INSULIN) 100 unit/mL injection 07-01 00:00: 00 08-01 04:59 :00 No [id number] 20U inject 20 Units under the skin 2 (two) times daily before breakfast and dinner for 30 days. [facility] amoxicillin -clavulanat e 875-125 mg per tablet 07-01 00:00: 00 07-23 04:59 :00 No [id number] 1{tbl} Take 1 tablet by mouth every 12 (twelve) hours for 21 days. [facility] amoxicillin -clavulanat e (AUGMENTIN) 875-125 mg per tablet 1 tablet 06-28 19:30: 00 07-02 12:59 :00 No 1{tbl} 1 tablet, Oral, Q12H, 8 doses, First dose on Thu06/28/24 at 1430, Last dose on Thu07/01/24 at 2000, Routine, Reason for Anti-Infec tive: Documented Infection, Documented Infection Site: Urine, Duration of Therapy: 7 days [facility] rifAMPin (RIFADIN) capsule 300 mg 06-28 17:15: 00 06-28 19:42 :55 No 300mg 300 mg, Oral, Q8H, First dose on Thu06/28/24 at 1215, Until Discontinu ed, RICHARD, Reason for Anti-Infec tive: Documented Infection, Documented Infection Site: Blood, Duration of Therapy: 7 days [facility] cefTRIAXone (ROCEPHIN) 1,000 mg in NaCl 0.9% (NS) 100 mL MINI-BAG 06-28 03:00: 00 06-28 19:17 :32 No 1000mg 1,000 mg, IV Piggyback, Q24H ABX, 7 doses, First dose on Thu06/27/24 at 2200, Last dose on Thu07/03/24 at 2200, Administer over 30 Minutes, 100 mL, Reason for Anti-Infec tive: Documented Infection, Documented Infection Site: Urine, Duration of Therapy: 7 days [facility] NaCl 0.9% (NS) IV infusion 1,000 mL 06-27 19:00: 00 06-29 06:11 :11 No 1000mL at 50 mL/hr, IV Infusion, CONTINUOUS , Starting on Thu06/27/24 at 1400, Until Thu06/29/24 at 0111, Routine, KVO [facility] Saline Bubble Study 06-27 18:24: 13 Yes [id number] 6mL 6 mL, Injection, SEE-INSTRU CTIONS, Starting on Thu06/27/24 at 1324, Until Discontinu ed, Routine [facility] vancomycin (VANCOCIN) 1,000 mg in NaCl 0.9% (NS) 250 mL VIAL-MATE IV piggyback 06-27 17:00: 00 07-04 16:59 :00 No 1000mg 1,000 mg, IV Piggyback, Q12H ABX, 14 doses, First dose on Thu06/27/24 at 1200, Last dose on Thu07/04/24 at 0000, Administer over 60 Minutes, 250 mL, Reason for Anti-Infec tive: Documented Infection, Documented Infection Site: Blood, Duration of Therapy: 7 days [facility] NaCl 0.9% (NS) injection 10 mL 06-27 15:11: 58 Yes 10mL 10 mL, Slow IV Push, PRN, Starting on Thu06/27/24 at 1011, Until Discontinu ed, Routine, line maintenanc e [facility] lidocaine 1% (PF) (XYLOCAINE) injection 5 mL 06-27 15:11: 58 06-27 15:45 :00 No 5mL 5 mL, Subcutaneo us, PRN, 1 dose, Starting on Thu06/27/24 at 1011, Until Thu06/27/24 at 1045, Routine, Local anesthesia [facility] magnesium sulfate in D5W 1 gram/100 mL RTU IV Piggyback 1 g 06-26 15:15: 00 06-26 16:55 :00 No 1g 1 g, IV Piggyback, ONCE, 1 dose, On Thu06/26/24 at 1015, Administer over 60 Minutes, 100 mL [facility] lisinopriL (PRINIVIL,Z ESTRIL) tablet 20 mg 06-26 13:00: 00 Yes 20mg 20 mg, Oral, BID, First dose (after last modificati on) on Thu06/26/24 at 0800, Until Discontinu ed, Routine [facility] hydralAZINE (APRESOLINE ) injection 10 mg 06-26 12:45: 32 Yes 10mg 10 mg, Slow IV Push, Q4HPRN, Starting on Thu06/26/24 at 0745, Until Discontinu ed, Routine, DBP=>100; SBP=>160 [facility] lisinopriL (PRINIVIL,Z ESTRIL) tablet 20 mg 06-25 14:00: 00 06-26 12:45 :20 No 20mg 20 mg, Oral, DAILY, First dose (after last modificati on) on Thu06/25/24 at 0900, Until Discontinu ed, Routine [facility] atorvastati n (LIPITOR) tablet 40 mg 06-25 02:00: 00 Yes 40mg 40 mg, Oral, QHS, First dose on Thu06/24/24 at 2100, Until Discontinu ed [facility] lisinopriL (PRINIVIL,Z ESTRIL) tablet 10 mg 06-24 20:45: 00 06-25 00:21 :41 No 10mg 10 mg, Oral, DAILY, First dose on Thu06/24/24 at 1545, Until Discontinu ed, [facility] 1,250 mg in NaCl 0.9% (NS) 250 mL VIAL-MATE IV piggyback 06-24 15:30: 00 06-27 14:18 :02 No 1250mg 1,250 mg, IV Piggyback, Q12H ABX, First dose on Thu06/24/24 at 1030, Until Discontinu ed, Administer over 90 Minutes, 250 mL, Reason for Anti-Infec tive: Documented Infection, Documented Infection Site: Blood, Duration of Therapy: 7 days [facility] furosemide (LASIX) tablet 20 mg 06-24 14:00: 00 Yes 20mg 20 mg, Oral, DAILY, First dose on Thu06/24/24 at 0900, Until Discontinu ed, Routine [facility] aspirin EC tablet 81 mg 06-24 14:00: 00 Yes 81mg 81 mg, Oral, DAILY, First dose on Thu06/24/24 at 0900, Until Discontinu ed, Routine [facility] gabapentin (NEURONTIN) capsule 100 mg 06-24 13:00: 00 Yes 100mg 100 mg, Oral, TID, First dose on Thu06/24/24 at 0800, Until Discontinu ed, Routine [facility] insulin NPH (HUMULIN N) injection 20 Units 06-24 12:30: 00 Yes 20U 20 Units, Subcutaneo us, BIDAC, First dose on Thu06/24/24 at 0730, Until Discontinu ed, Routine [facility] tiZANidine (ZANAFLEX) tablet 4 mg 06-24 12:28: 17 Yes 4mg [facility] ondansetron (ZOFRAN (PF)) injection 4 mg 06-24 09:32: 26 Yes 4mg 4 mg, Slow IV Push, Q6HPRN, Nausea and Vomiting (N/V), Starting on Thu06/24/24 at 0432, Doses of ondansetro n 16 mg and above need to be administer ed via IV piggyback. For Dose >=24mg ECG monitoring is advisable. [facility] enoxaparin (LOVENOX) injection 40 mg 06-23 22:00: 00 Yes 40mg 40 mg, Subcutaneo us, DAILY, First dose on Thu06/23/24 at 1700, Until Discontinu ed, Routine [facility] Sliding Scale Insulin - Lispro (HumaLOG) 06-23 22:00: 00 Yes Subcutaneo us, TID MEALS+HS, First dose on Thu06/23/24 at 1700, Until Discontinu ed, Routine [facility] cefTRIAXone (ROCEPHIN) 1,000 mg in NaCl 0.9% (NS) 100 mL MINI-BAG 06-23 20:00: 00 06-24 12:26 :52 No 1000mg 1,000 mg, IV Piggyback, Q24H ABX, 5 doses, First dose on Thu06/23/24 at 1500, Last dose on Thu06/27/24 at 1500, Administer over 30 Minutes, 100 mL, Reason for Anti-Infec tive: Empiric Therapy for Suspected Infection, Empiric Therapy Site: Urine, Duration of therapy: 5 days [facility] acetaminoph en (TYLENOL) tablet 650 mg 06-23 19:05: 37 Yes 650mg 650 mg, Oral, Q6HPRN, Starting on Thu06/23/24 at 1405, Until Discontinu ed, Routine, Pain (scale 1-3) [facility] glucagon (GLUCAGEN DIAGNOSTIC KIT) injection 1 mg 06-23 19:03: 24 Yes 1mg 1 mg, Intramuscu lar, PRN, Starting on Thu06/23/24 at 1403, Until Discontinu ed, RICHARD, Blood Glucose < or = 70 mg/dL and patient is NPO, unable to swallow or has mental changes. [facility] dextrose 50 % in water (D50W) injection 25 mL 06-23 19:03: 24 Yes 25mL 25 mL, Slow IV Push, PRN, Starting on Thu06/23/24 at 1403, Until Discontinu ed, RICHARD, Blood Glucose < or = 70 mg/dL and patient is NPO, unable to swallow or has mental status changes. [facility] vancomycin (VANCOCIN) 1,500 mg in NaCl 0.9% (NS) 500 mL VIAL-MATE IV piggyback 06-23 17:45: 00 06-23 19:19 :00 No 15mg/kg 1,500 mg (rounded from 1,374 mg = 15 mg/kg ?91.6 kg), IV Piggyback, ONCE, 1 dose, On Thu06/23/24 at 1245, Administer over 90 Minutes, 500 mL, Reason for Anti-Infec tive: Documented Infection, Documented Infection Site: Blood, Duration of Therapy: Once (ED) [facility] cephALEXin (KEFLEX) capsule 1,000 mg 06-20 17:00: 00 06-20 17:01 :00 No 1000mg 1,000 mg, Oral, ONCE, 1 dose, On Thu06/20/24 at 1200, RICHARD, Reason for Anti-Infec tive: Documented Infection, Documented Infection Site: Skin / Soft Tissue, Duration of Therapy: Once (ED) [facility] neomycin-ba citracin-po lymyxin 3.5mg-400 unit- 5,000 unit/gram topical ointment 06-20 00:00: 00 08-23 00:00 :00 No [id number] Apply to area(s) 4 (four) times daily. [facility] cephALEXin 500 mg capsule 06-20 00:00: 00 07-01 00:00 :00 No [id number] 500mg Take 1 capsule by mouth 4 (four) times daily. [facility] ketorolac (TORADOL) injection 15 mg 06-19 19:30: 00 06-19 18:25 :00 No 15mg 15 mg, Slow IV Push, ONCE, 1 dose, On Thu06/19/24 at 1430, RICHARD [facility] cefTRIAXone (ROCEPHIN) 1,000 mg in NaCl 0.9% (NS) 100 mL MINI-BAG 06-19 19:00: 00 06-19 19:49 :00 No 1000mg 1,000 mg, IV Piggyback, ONCE, 1 dose, On Thu06/19/24 at 1400, Administer over 30 Minutes, 100 mL, Reason for Anti-Infec tive: Empiric Therapy for Suspected Infection, Empiric Therapy Site: Urine, Duration of therapy: Once (ED) [facility] mupirocin 2 % ointment 06-19 00:00: 00 08-23 00:00 :00 No [id number] Apply to area(s) 3 (three) times daily. [facility] furosemide (LASIX) tablet 40 mg 06-17 00:30: 00 06-16 23:47 :00 No 40mg 40 mg, Oral, ONCE, 1 dose, On Thu06/16/24 at 1930, Routine [facility] acetaminoph en (TYLENOL) tablet 1,000 mg 06-16 23:45: 00 06-16 23:47 :00 No 1000mg 1,000 mg, Oral, ONCE NOW, 1 dose, On Thu06/16/24 at 1845, Routine [facility] insulin regular human (HUMULIN R) injection 5 Units 04-06 10:30: 00 04-06 09:38 :00 No 5U 5 Units, Subcutaneo us, ONCE, 1 dose, On Thu04/06/24 at 0530, Routine, Indication for insulin: Hyperglyce [facility] insulin regular human (HUMULIN R) injection 5 Units 04-06 09:30: 00 04-06 08:38 :00 No 5U 5 Units, Subcutaneo us, ONCE, 1 dose, On Thu04/06/24 at 0430, Routine, Indication for insulin: Hyperglyce [facility] ergocalcife rol (vitamin d2) (CALCIFEROL ) capsule 50,000 Units 04-06 09:00: 00 04-06 08:33 :00 No [id number] 50,000 Units, Oral, ONCE NOW, 1 dose, On Thu04/06/24 at 0400, Routine [facility] magnesium sulfate in water 2 gram/50 mL (4 %) infusion 2 g 04-06 08:45: 00 04-06 09:30 :00 No 2g 2 g, IV Piggyback, Administer over 60 Minutes, ONCE, 1 dose, On Thu04/06/24 at 0345, [facility] acute hospital thiamine (VITAMIN B1) injection 100 mg 04-06 08:00: 00 04-06 08:32 :00 No 100mg 100 mg, Slow IV Push, ONCE, 1 dose, On Thu04/06/24 at 0300, [facility] acute [facility] ceFAZolin (ANCEF) 1,000 mg in NaCl 0.9% (NS) 100 mL MINI-BAG 04-06 07:45: 00 04-06 07:30 :00 No 1000mg 1,000 mg, Intravenou s, ONCE, 1 dose, On Thu04/06/24 at 0245, Administer over 30 Minutes, 100 mL, Reason for Anti-Infec tive: Documented Infection, Documented Infection Site: Skin / Soft Tissue, Duration of Therapy: Once (ED) [facility] insulin regular human (HUMULIN R) injection 10 Units 04-06 07:30: 00 04-06 07:34 :00 No 10U 10 Units, Slow IV Push, ONCE, 1 dose, On Thu04/06/24 at 0230, STAT, Indication for insulin: Hyperglyce danae [facility] furosemide (LASIX) injection 40 mg 04-06 07:00: 00 04-06 06:59 :00 No 40mg 40 mg, IV Push, ONCE, 1 dose, On Thu04/06/24 at 0200, RICHARD [facility] gabapentin (NEURONTIN) capsule 300 mg 04-06 07:00: 00 04-06 06:57 :00 No 300mg 300 mg, Oral, ONCE, 1 dose, On Thu04/06/24 at 0200, [facility] acute hospital gabapentin (NEURONTIN) 100 mg capsule 04-06 00:00: 00 08-25 00:00 :00 No [id number] 100mg Take 1 capsule by mouth in the morning and 1 capsule at noon and 1 capsule in the evening. [facility] furosemide 20 mg tablet 04-06 00:00: 00 07-01 00:00 :00 No [id number] 20mg Take 1 tablet by mouth every morning. [facility] cephALEXin 500 mg capsule 04-06 00:00: 00 07-01 00:00 :00 No [id number] 500mg Take 1 capsule by mouth 4 (four) times daily. [facility] mupirocin 2 % ointment 04-06 00:00: 00 07-01 00:00 :00 No [id number] Apply to area(s) 3 (three) times daily. [facility] NaCl 0.9% (NS) bolus infusion 500 mL 04-03 21:15: 00 04-03 22:05 :00 No 500mL at 999 mL/hr, 500 mL, IV Infusion, ONCE, 1 dose, On Thu04/03/24 at 1615, [facility] acute hospital magnesium sulfate in water 2 gram/50 mL (4 %) infusion 2 g 04-03 17:45: 00 04-03 19:00 :00 No 2g 2 g, IV Piggyback, Administer over 60 Minutes, ONCE, 1 dose, On 04/03/24 at 1245, Routine [facility] NaCl 0.9% (NS) bolus infusion 500 mL 04-03 16:00: 00 04-03 16:30 :00 No 500mL at 999 mL/hr, 500 mL, IV Infusion, ONCE, 1 dose, [facility]04/03/24 at 1100[facility] ([facility]OL[facility] tablet 650 mg 04-03 15:15: 00 04-03 15:46 :00 No 650mg 650 mg, Oral, ONCE, 1 dose, On 04/03/24 at 1015, [facility] acute hospital piperacilli n-tazobacta m (ZOSYN) 3.375 g in NaCl 0.9% (NS) 100 mL VIAL-MATE 04-03 15:15: 00 04-03 16:19 :00 No 3.375g 3.375 g, IV Piggyback, ONCE, 1 dose, On 04/03/24 at 1015, Administer over 30 Minutes, 100 mL, Reason for Anti-Infec tive: Documented Infection, Documented Infection Site: Skin / Soft Tissue, Duration of Therapy: Once (ED) [facility] doxycycline hyclate 100 mg capsule 04-03 00:00: 00 07-01 00:00 :00 No [id number] 100mg Take 1 capsule by mouth in the morning and 1 capsule in the evening. [facility] insulin regular human (HUMULIN R) injection 10 Units 03-31 21:45: 00 03-31 23:18 :00 No 10U 10 Units, Slow IV Push, ONCE, 1 dose, On Thu03/31/24 at 1645, STAT, Indication for insulin: Hyperglyce [facility] acetaminoph en (TYLENOL) tablet 650 mg 03-29 21:15: 00 03-29 22:29 :00 No 650mg 650 mg, Oral, ONCE, 1 dose, On Thu03/29/24 at 1615, RICHARD [facility] NaCl 0.9% (NS) bolus infusion 500 mL 03-22 16:30: 00 03-22 21:50 :00 No 500mL at 999 mL/hr, 500 mL, IV Infusion, ONCE, 1 dose, On Thu03/22/24 at 1130, RICHARD [facility] NaCl 0.9% (NS) bolus infusion 1,000 mL 03-12 03:30: 00 03-12 04:43 :00 No 1000mL at 999 mL/hr, 1,000 mL, IV Infusion, ONCE, 1 dose, On Thu03/11/24 at 2230, STAT [facility] insulin regular human (HUMULIN R) injection 10 Units 03-12 03:30: 00 03-12 02:40 :00 No 10U 10 Units, IV Push, ONCE, 1 dose, On Thu03/11/24 at 2230, RICHARD
In dication for insulin: Hyperglyce danae [facility] NaCl 0.9% (NS) bolus infusion 1,000 mL 03-12 02:45: 00 03-12 03:00 :00 No 1000mL at 999 mL/hr, 1,000 mL, IV Infusion, ONCE, 1 dose, On Thu03/11/24 at 2145, STAT [facility] meclizine (TRAVEL-EAS E (MECLIZINE) ) tablet 25 mg 02-09 17:15: 00 02-09 17:17 :00 No 25mg 25 mg, Oral, ONCE, 1 dose, On Thu02/10/24 at 1215, RICHARD [facility] ketorolac (TORADOL) injection 15 mg 02-08 20:00: 00 02-08 20:42 :00 No 15mg 15 mg, Intramuscu lar, ONCE, 1 dose, On Thu02/09/24 at 1500, Routine [facility] methocarbam oL (ROBAXIN) tablet 1,000 mg 02-08 19:15: 00 02-08 20:43 :00 No 1000mg 1,000 mg, Oral, ONCE, 1 dose, [facility] 02/09/24 [facility] 1415[facility] (FLEXERIL) tablet 10 mg 02-05 15:30: 00 02-05 15:14 :00 No 10mg 10 mg, Oral, ONCE, 1 dose, On 02/06/24 at 1030, Routine [facility] cyclobenzap rine 10 mg tablet 02-05 00:00: 00 02-11 04:59 :00 No [id number] 10mg Take 1 tablet by mouth in the morning and 1 tablet at noon and 1 tablet in the evening. Do all this for 15 doses. [facility] dicyclomine (BENTYL) tablet 20 mg 01-29 20:45: 00 01-29 20:51 :00 No 20mg 20 mg, Oral, ONCE, 1 dose, On 01/30/24 at 1445, [facility] acute hospital methocarbam oL (ROBAXIN) tablet 1,000 mg 01-29 19:15: 00 01-29 19:06 :00 No 1000mg 1,000 mg, Oral, ONCE, 1 dose, On 01/30/24 at 1315, [facility] acute hospital ketorolac (TORADOL) tablet 10 mg 01-29 17:45: 00 01-29 17:01 :00 No 10mg 10 mg, Oral, ONCE, 1 dose, On 01/30/24 at 1145, Routine [facility] tiZANidine 4 mg tablet 01-29 00:00: 00 08-25 00:00 :00 No [id number] 4mg Take 1 tablet by mouth every 6 (six) hours as needed for Pain (scale 7-10). [facility] dicyclomine 20 mg tablet 01-29 00:00: 00 07-01 00:00 :00 No [id number] 20mg Take 1 tablet by mouth 4 (four) times daily as needed for Abdominal pain. [facility] ibuprofen (IBU) tablet 600 mg 01-15 03:30: 00 01-15 03:42 :00 No 600mg 600 mg, Oral, ONCE, 1 dose, On Sheree 01/14/24 at 2130[facility]ocarb[facility] (ROBAXIN) tablet 750 mg 01-15 03:26: 00 01-15 03:42 :00 No 750mg 750 mg, Oral, ONCE NOW, 1 dose, On Sheree 01/14/24 at 2130, General acute hospital LISINOPRIL- HYDROCHLORO THIAZIDE 10-12.5 mg per tablet 02-17 00:00: 00 08-25 00:00 :00 No [id number] Take 1 tablet by mouth once daily [facility] blood sugar diagnostic (TRUE METRIX GLUCOSE TEST STRIP) strip 2020-11 00:00: 00 Yes [id number] Monitor Blood Glucose daily [facility] lancets (TRUEPLUS LANCETS) 33 gauge Misc 2020-11 00:00: 00 Yes [id number] Monitor Blood Glucose daily [facility] Alcohol Swabs (BD SINGLE USE SWABS REGULAR) PadM 2020-11 00:00: 00 Yes [id number] Apply to area(s) daily. Monitor Blood Glucose daily [facility] simvastatin 40 mg tablet 2020-11 00:00: 00 08-25 00:00 :00 No [id number] 40mg Take 1 tablet by mouth at bedtime. [facility] furosemide 20 mg tablet 2020-11 00:00: 00 08-25 00:00 :00 No [id number] 20mg Take 1 tablet by mouth daily. [facility] SIMVASTATIN 40 mg tablet 2020-11 00:00: 00 Yes [id number] 40mg TAKE 1 TABLET BY MOUTH AT BEDTIME [facility] furosemide 20 mg tablet 07-10 00:00: 00 Yes [id number] 20mg Take 1 tablet by mouth every Thursday, and Thursday in the evening. [facility] metFORMIN 1,000 mg tablet 07-10 00:00: 00 08-25 00:00 :00 No [id number] 1000mg Take 1 tablet by mouth 2 (two) times daily with meals. [facility] insulin NPH (HUMULIN N NPH U-100 INSULIN) 100 unit/mL injection 07-10 00:00: 00 07-01 00:00 :00 No [id number] INJECT 35 UNITS SUBCUTANEO USLY EVERY MORNING AND EVENING. Office visit needed for further refills. [facility] lisinopriL- hydrochloro thiazide 10-12.5 mg per tablet 07-10 00:00: 00 02-17 00:00 :00 No [id number] 1{tbl} Take 1 tablet by mouth daily. [facility] simvastatin (ZOCOR) 40 mg tablet 07-10 00:00: 00 10-04 00:00 :00 No [id number] 40mg Take 1 tablet by mouth at bedtime. [facility] insulin NPH (HUMULIN N NPH U-100 INSULIN) 100 unit/mL injection 06-19 00:00: 00 07-10 00:00 :00 No [id number] INJECT 35 UNITS SUBCUTANEO USLY EVERY MORNING AND EVENING. Office visit needed for further refills. [facility] HUMULIN N NPH U-100 INSULIN 100 unit/mL injection 6-29 00:00: 00 Yes [id number] INJECT 35 UNITS SUBCUTANEO USLY IN THE MORNING AND IN THE EVENING [facility] furosemide 20 mg tablet 3-26 00:00: 00 07-10 00:00 :00 No [id number] 20mg Take 1 tablet by mouth every Thursday, and Thursday in the evening. [facility] sildenafiL 50 mg tablet 3-25 00:00: 00 07-01 00:00 :00 No [id number] 50mg Take 1 tablet by mouth as needed (Erectile dysfunctio n). Take 50mg x 1, about 30 mins - 4 hours prior to sexual activity. [facility] insulin NPH (HUMULIN N NPH U-100 INSULIN) 100 unit/mL injection 02-14 00:00: 00 05-21 00:00 :00 No [id number] INJECT 35 UNITS SUBCUTANEO USLY IN THE MORNING AND IN THE EVENING [facility] HUMULIN N NPH U-100 INSULIN 100 unit/mL injection 02-10 00:00: 00 02-14 00:00 :00 No [id number] INJECT 35 UNITS SUBCUTANEO USLY IN THE MORNING AND IN THE EVENING [facility] 02-06 00:00: 00 Yes [id number] E11.8: dispense Insulin Syringe 31 gauge brand covered by insurance. Monitor Blood Sugar at Home BID [facility] 02-06 00:00: 00 07-01 00:00 :00 No [id number] E11.8: dispense Insulin Syringe 31 gauge brand covered by insurance. Monitor Blood Sugar at Home BID [facility] Insulin Syringe-Nee dle U-100 1 mL 27 gauge x 1/2" Syr 01-22 00:00: 00 Yes [id number] Use as directed [facility] Insulin Syringe-Nee dle U-100 1 mL 27 gauge x 1/2" Syr 3- 00:00: 00 Yes [id number] Use as directed [facility] Insulin Syringe-Nee dle U-100 1 mL 27 gauge x 1/2" Syrg 3- 00:00: 00 Yes [id number] Use as directed [facility] Insulin Gustine, Disposable, (PHUC PEN NEEDLE) 32 gauge x 5/32" Ndle 3- 00:00: 00 Yes [id number] Use as directed [facility] Insulin Gustine, Disposable, (PHUC PEN NEEDLE) 32 gauge x 5/32" Ndle 3- 00:00: 00 Yes [id number] Use as directed [facility] Insulin Gustine, Disposable, (PHUC PEN NEEDLE) 32 gauge x 5/32" Ndle 3- 00:00: 00 Yes [id number] Use as directed [facility] Insulin Gustine, Disposable, (PHUC PEN NEEDLE) 32 gauge x 5/32" Ndle 07-09 00:00: 00 Yes [id number] Use as directed [facility] aspirin 81 mg EC tablet 07-09 00:00: 00 08-25 00:00 :00 No [id number] 81mg Take 1 tablet by mouth daily. [facility] potassium chloride 10 mEq CR tablet 07-09 00:00: 08-23 00:00 :00 No [id number] 10meq Take 1 tablet by mouth every Thursday, and Thursday in the evening. [facility] lisinopril 10 mg tablet 07-09 00:00: 07-10 00:00 :00 No [id number] 10mg Take 1 tablet by mouth daily. [facility] simvastatin (ZOCOR) 40 mg tablet 07-09 00:00: 07-10 00:00 :00 No [id number] 40mg Take 1 tablet by mouth at bedtime. [facility] metFORMIN 1,000 mg tablet 07-09 00:00: 00 07-10 00:00 :00 No [id number] 1000mg Take 1 tablet by mouth 2 (two) times daily with meals. [facility] furosemide 20 mg tablet 07-09 00:00: 00 02-14 00:00 :00 No [id number] 20mg Take 1 tablet by mouth every Thursday, and Thursday in the evening. [facility] insulin NPH 100 unit/mL injection 07-09 00:00: 00 02-10 00:00 :00 No [id number] 35U inject 35 Units under the skin every morning and evening. [facility] potassium chloride 10 mEq CR tablet 04-13 00:00: 00 07-09 00:00 :00 No [id number] 10meq Take 1 tablet by mouth every Thursday, and Thursday in the evening. [facility] furosemide 20 mg tablet 04-13 00:00: 07-09 00:00 :00 No [id number] 20mg Take 1 tablet by mouth every Thursday, and Thursday in the evening. [facility] doxycycline hyclate 100 mg tablet 04-12 00:00: 07-09 00:00 :00 No [id number] 100mg Take 1 tablet by mouth 2 (two) times daily. [facility] diph,pertus (acel),teta nus (ADACEL) injection 0.5 mL 03-12 14:00: 00 03-13 01:59 :00 No .5mL 0.5 mL, Intramuscu lar, ONCE, 1 dose, Thu03/12/20 at 0900, Routine [facility] clindamycin 300 mg capsule 03-12 00:00: 00 03-23 04:59 :00 No [id number] 300mg Take 1 capsule by mouth 4 (four) times daily for 10 days. [facility] sildenafil 50 mg tablet 02-27 00:00: 00 02-14 00:00 :00 No [id number] 50mg Take 1 tablet by mouth as needed (Erectile dysfunctio n). Take 50mg x 1, about 30 mins - 4 hours prior to sexual activity. [facility] metFORMIN 1,000 mg tablet 01-18 00:00: 07-09 00:00 :00 No [id number] 1000mg Take 1 tablet by mouth 2 (two) times daily with meals. [facility] ondansetron (ZOFRAN (PF)) injection 4 mg 12-30 17:29: 59 Yes 4mg 4 mg, Slow IV Push, PRN, 1 dose, Starting Thu12/30/19 at 1129, Until Discontinu ed, Routine, Nausea and Vomiting (N/V), PACU [facility] water for irrigation irrigation solution 12-30 16:20: 00 Yes PRN, Starting Thu12/30/19 at 1020, Until Discontinu ed, Routine, Intra-op [facility] simethicone (GAS RELIEF (SIMETHICON E)) 40 mg/0.6 mL drops 12-30 16:19: 00 Yes PRN, Starting Thu12/30/19 at 1019, Until Discontinu ed, Routine, Intra-op [facility] NaCl 0.9% (NS) IV infusion 1,000 mL 12-30 13:45: 00 Yes 1000mL at 42 mL/hr, IV Infusion, CONTINUOUS , Starting Thu12/30/19 at 0745, Until Discontinu ed, Routine, DSU Pre-op [facility] peg-electro lyte soln 236-22.74-6 .74 -5.86 gram solution 11-30 00:00: 00 07-01 00:00 :00 No Take as directed [facility] prednisoLON E acetate 1 % ophthalmic suspension drops 2018-11 00:00: 00 Yes [id number] 1[drp] Place 1 Drop in right eye 4 (four) times daily. [facility] ofloxacin (OCUFLOX) 0.3 % ophthalmic solution 2018-11 00:00: 00 Yes [id number] 1[drp] Place 1 Drop in right eye 3 (three) times daily. [facility] aspirin 81 mg EC tablet 2018-11 00:00: 00 07-09 00:00 :00 No [id number] 81mg Take 1 tablet by mouth daily. [facility] Insulin Gustine, Disposable, (PHUC PEN NEEDLE) 32 gauge x 5/32" Ndle 2018-11 00:00: 00 07-09 00:00 :00 No [id number] Use as directed [facility] lactobacill us comb no.10 (PROBIOTIC) 20 billion cell Cap 06-10 00:00: 00 07-09 00:00 :00 No [id number] 1{capsu le} Take 1 capsule by mouth 2 (two) times daily. [facility] simvastatin (ZOCOR) 40 mg tablet 05-30 00:00: 00 07-09 00:00 :00 No [id number] 40mg Take 1 tablet by mouth at bedtime. [facility] lisinopril 10 mg tablet 05-30 00:00: 00 07-09 00:00 :00 No [id number] 10mg Take 1 tablet by mouth daily. [facility] insulin NPH 100 unit/mL injection 05-30 00:00: 00 07-09 00:00 :00 No [id number] 35U inject 35 Units under the skin every morning and evening. [facility] metFORMIN 500 mg tablet 05-30 00:00: 00 01-18 00:00 :00 No [id number] 500mg Take 1 tablet by mouth 2 (two) times daily with meals. [facility] Immunizations Ordered Immunization Name Filled Immunization Name Date Status Comments Source TD Pres-Free 2024-12-28 00:00:[address] [facility] TDAP 2024-07-04 00:00:[address] [facility] TDAP 2024-04-11 00:00:[address] [facility] TDAP 2024-04-06 01:32:[address] [facility] TDAP 2024-04-04 00:00:[address] [facility] TDAP 2024-04-03 09:43:[address] [facility] Vital Signs Vital Name Observation Time Observation Value Comments S otoniel Systolic blood pressure 2024-12-28 13:00:00 172 mm[Hg] [facility] Diastolic blood pressure 2024-12-28 13:00:00 90 mm[Hg] [facility] Heart rate 2024-12-28 13:00:00 66 [facility] 2024-12-28 13:00:00 13 /min [facility] Oxygen saturation in Arterial blood by Pulse oximetry 2024-12-28 13:00:00 96 /min [facility] Body temperature 2024-12-28 12:23:[address] [facility] Body height 2024-12-28 12:23:00 [facility] 2024-12-28 12:23:00 90.719 kg [facility] BMI 2024-12-28 12:23:00 28.70 kg/m2 [facility] Systolic blood pressure 2024-12-21 17:18:00 130 mm[Hg] [facility] Diastolic blood pressure 2024-12-21 17:18:00 81 mm[Hg] [facility] Heart rate 2024-12-21 17:18:00 81 /min [facility] Body temperature 2024-12-21 17:18:[address] [facility] Respiratory rate 2024-12-21 17:18:00 19 /min [facility] Body height 2024-12-21 17:18:00 177.8 cm [facility] Body weight 2024-12-21 17:18:00 81.647 kg [facility] BMI 2024-12-21 17:18:00 25.83 kg/m2 [facility] Oxygen saturation in Arterial blood by Pulse oximetry 2024-12-21 17:18:00 100 /min [facility] Systolic blood pressure 2024-08-25 16:38:00 116 mm[Hg] [facility] Diastolic blood pressure 2024-08-25 16:38:00 66 mm[Hg] [facility] Heart rate 2024-08-25 16:38:00 67 /min [facility] Body temperature 2024-08-25 16:38:[address] [facility] Respiratory rate 2024-08-25 16:38:00 13 /min [facility] Oxygen saturation in Arterial blood by Pulse oximetry 2024-08-25 16:38:00 99 /min [facility] Body weight 2024-08-25 09:00:00 90.6 [facility] BMI 2024-08-25 09:00:00 28.66 kg/m2 [facility] Body height 2024-08-23 20:19:00 177.8 cm [facility] Systolic blood pressure 2024-07-01 21:13:00 118 mm[Hg] [facility] Diastolic blood pressure 2024-07-01 21:13:00 65 mm[Hg] [facility] Heart rate 2024-07-01 21:13:00 63 /min [facility] Body temperature 2024-07-01 21:13:[address] [facility] Respiratory rate 2024-07-01 21:13:00 16 /min [facility] Oxygen saturation in Arterial blood by Pulse oximetry 2024-07-01 21:13:00 99 /min [facility] Body weight 2024-07-01 08:26:00 89.994 kg [facility] BMI 2024-07-01 08:26:00 28.47 kg/m2 [facility] Body height 2024-06-23 21:39:00 177.8 cm [facility] Systolic blood pressure 2024-06-20 17:47:00 165 mm[Hg] [facility] Diastolic blood pressure 2024-06-20 17:47:00 83 mm[Hg] [facility] Heart rate 2024-06-20 17:47:00 81 /min [facility] Body temperature 2024-06-20 17:47:[address] [facility] Respiratory rate 2024-06-20 17:47:00 16 /min [facility] Oxygen saturation in Arterial blood by Pulse oximetry 2024-06-20 17:47:00 99 /min [facility] Body height 2024-06-20 15:58:00 177.8 cm [facility] Body weight 2024-06-20 15:58:00 91.627 kg [facility] BMI 2024-06-20 15:58:00 28.98 kg/m2 [facility] Systolic blood pressure 2024-06-19 21:30:00 138 mm[Hg] [facility] Diastolic blood pressure 2024-06-19 21:30:00 71 mm[Hg] [facility] Heart rate 2024-06-19 21:30:00 78 /min [facility] Respiratory rate 2024-06-19 21:30:00 17 /min [facility] Oxygen saturation in Arterial blood by Pulse oximetry 2024-06-19 21:30:00 95 /min [facility] Body temperature 2024-06-19 17:34:[address] [facility] Body height 2024-06-19 17:34:00 177.8 cm [facility] Body weight 2024-06-19 17:34:00 99.791 kg [facility] BMI 2024-06-19 17:34:00 31.57 kg/m2 [facility] Heart rate 2024-06-17 00:43:00 70 /min [facility] Respiratory rate 2024-06-17 00:43:00 17 /min [facility] Oxygen saturation in Arterial blood by Pulse oximetry 2024-06-17 00:43:00 97 /min [facility] Systolic blood pressure 2024-06-17 00:42:00 132 mm[Hg] [facility] Diastolic blood pressure 2024-06-17 00:42:00 76 mm[Hg] [facility] Body temperature 2024-06-17 00:42:[address] [facility] Body height 2024-06-16 23:12:00 177.8 cm [facility] Body weight 2024-06-16 23:12:00 99.791 kg [facility] BMI 2024-06-16 23:12:00 31.57 kg/m2 [facility] Heart rate 2024-06-16 04:09:00 62 /min [facility] Body temperature 2024-06-16 04:09:[address] [facility] Respiratory rate 2024-06-16 04:09:00 13 /min [facility] Oxygen saturation in Arterial blood by Pulse oximetry 2024-06-16 04:09:00 97 /min [facility] Systolic blood pressure 2024-06-16 04:00:00 157 mm[Hg] [facility] Diastolic blood pressure 2024-06-16 04:00:00 75 mm[Hg] [facility] Body height 2024-06-15 23:01:00 177.8 cm [facility] Body weight 2024-06-15 23:01:00 99.791 kg [facility] BMI 2024-06-15 23:01:00 31.57 kg/m2 [facility] Heart rate 2024-04-06 10:11:00 72 /min [facility] Body temperature 2024-04-06 10:11:[address] [facility] Respiratory rate 2024-04-06 10:11:00 16 /min [facility] Oxygen saturation in Arterial blood by Pulse oximetry 2024-04-06 10:11:00 99 /min [facility] Systolic blood pressure 2024-04-06 10:00:00 130 mm[Hg] [facility] Diastolic blood pressure 2024-04-06 10:00:00 74 mm[Hg] [facility] Body height 2024-04-06 06:52:00 177.8 cm [facility] Body weight 2024-04-06 06:52:00 99.791 kg [facility] BMI 2024-04-06 06:52:00 31.57 kg/m2 [facility] Systolic blood pressure 2024-04-03 21:45:00 164 mm[Hg] [facility] Diastolic blood pressure 2024-04-03 21:45:00 85 mm[Hg] [facility] Heart rate 2024-04-03 21:45:00 88 /min [facility] Respiratory rate 2024-04-03 21:45:00 16 /min [facility] Oxygen saturation in Arterial blood by Pulse oximetry 2024-04-03 21:45:00 96 /min [facility] Body temperature 2024-04-03 14:41:[address] [facility] Systolic blood pressure 2024-04-01 00:04:00 132 mm[Hg] [facility] Diastolic blood pressure 2024-04-01 00:04:00 73 mm[Hg] [facility] Heart rate 2024-04-01 00:04:00 76 /min [facility] Respiratory rate 2024-04-01 00:04:00 18 /min [facility] Oxygen saturation in Arterial blood by Pulse oximetry 2024-04-01 00:04:00 98 /min [facility] Body height 2024-03-31 23:15:00 177.8 cm [facility] Body temperature 2024-03-31 17:35:[address] [facility] Body weight 2024-03-31 17:35:00 99.791 kg [facility] BMI 2024-03-31 17:35:00 31.57 kg/m2 [facility] Systolic blood pressure 2024-03-29 21:38:00 135 mm[Hg] [facility] Diastolic blood pressure 2024-03-29 21:38:00 74 mm[Hg] [facility] Heart rate 2024-03-29 21:38:00 66 /min [facility] Body temperature 2024-03-29 21:38:[address] [facility] Respiratory rate 2024-03-29 21:38:00 18 /min [facility] Oxygen saturation in Arterial blood by Pulse oximetry 2024-03-29 21:38:00 99 /min [facility] Body weight 2024-03-29 19:47:00 99.791 kg [facility] BMI 2024-03-29 19:47:00 31.57 kg/m2 [facility] Systolic blood pressure 2024-03-22 21:30:00 175 mm[Hg] [facility] Diastolic blood pressure 2024-03-22 21:30:00 90 mm[Hg] [facility] Heart rate 2024-03-22 21:30:00 84 /min [facility] Respiratory rate 2024-03-22 21:30:00 16 /min [facility] Oxygen saturation in Arterial blood by Pulse oximetry 2024-03-22 21:30:00 100 /min [facility] Body temperature 2024-03-22 14:55:[address] [facility] Systolic blood pressure 2024-03-12 04:00:00 155 mm[Hg] [facility] Diastolic blood pressure 2024-03-12 04:00:00 103 mm[Hg] [facility] Heart rate 2024-03-12 04:00:00 92 /min [facility] Respiratory rate 2024-03-12 04:00:00 18 /min [facility] Oxygen saturation in Arterial blood by Pulse oximetry 2024-03-12 04:00:00 98 /min [facility] Body temperature 2024-03-12 01:17:[address] [facility] Body height 2024-03-12 01:17:00 177.8 cm [facility] Body weight 2024-03-12 01:17:00 99.791 kg [facility] BMI 2024-03-12 01:17:00 31.57 kg/m2 [facility] Systolic blood pressure 2024-02-10 19:50:00 158 mm[Hg] [facility] Diastolic blood pressure 2024-02-10 19:50:00 87 mm[Hg] [facility] Heart rate 2024-02-10 19:50:00 86 /min [facility] Respiratory rate 2024-02-10 19:50:00 18 /min [facility] Oxygen saturation in Arterial blood by Pulse oximetry 2024-02-10 19:50:00 96 /min [facility] Body temperature 2024-02-10 16:57:[address] [facility] Body height 2024-02-10 16:57:00 177.8 cm [facility] Body weight 2024-02-10 16:57:00 99.791 kg [facility] BMI 2024-02-10 16:57:00 31.57 kg/m2 [facility] Systolic blood pressure 2024-02-09 22:00:00 143 mm[Hg] [facility] Diastolic blood pressure 2024-02-09 22:00:00 76 mm[Hg] [facility] Heart rate 2024-02-09 22:00:00 83 /min [facility] Respiratory rate 2024-02-09 22:00:00 16 /min [facility] Oxygen saturation in Arterial blood by Pulse oximetry 2024-02-09 22:00:00 100 /min [facility] Body temperature 2024-02-09 19:02:[address] [facility] Body height 2024-02-09 19:02:00 177.8 cm [facility] Body weight 2024-02-09 19:02:00 99.791 kg [facility] BMI 2024-02-09 19:02:00 31.57 kg/m2 [facility] Systolic blood pressure 2024-02-06 14:26:00 163 mm[Hg] [facility] Diastolic blood pressure 2024-02-06 14:26:00 77 mm[Hg] [facility] Heart rate 2024-02-06 14:26:00 71 /min [facility] Body temperature 2024-02-06 14:26:[address] [facility] Respiratory rate 2024-02-06 14:26:00 16 /min [facility] Body height 2024-02-06 14:26:00 165.1 cm [facility] Body weight 2024-02-06 14:26:00 99.791 kg [facility] BMI 2024-02-06 14:26:00 36.61 kg/m2 [facility] Oxygen saturation in Arterial blood by Pulse oximetry 2024-02-06 14:26:00 98 /min [facility] Systolic blood pressure 2024-01-30 16:05:00 150 mm[Hg] [facility] Diastolic blood pressure 2024-01-30 16:05:00 89 mm[Hg] [facility] Heart rate 2024-01-30 16:05:00 71 /min [facility] Body temperature 2024-01-30 16:05:[address] [facility] Respiratory rate 2024-01-30 16:05:00 18 /min [facility] Body height 2024-01-30 16:05:00 177.8 cm [facility] Body weight 2024-01-30 16:05:00 100.699 kg [facility] BMI 2024-01-30 16:05:00 31.85 kg/m2 [facility] Oxygen saturation in Arterial blood by Pulse oximetry 2024-01-30 16:05:00 99 /min [facility] Systolic blood pressure 2024-01-15 03:18:00 150 mm[Hg] [facility] Diastolic blood pressure 2024-01-15 03:18:00 75 mm[Hg] [facility] Heart rate 2024-01-15 03:18:00 79 /min [facility] Body temperature 2024-01-15 03:18:[address] [facility] Respiratory rate 2024-01-15 03:18:00 18 /min [facility] Body height 2024-01-15 03:18:00 177.8 cm [facility] Body weight 2024-01-15 03:18:00 99.791 kg [facility] BMI 2024-01-15 03:18:00 31.57 kg/m2 [facility] Oxygen saturation in Arterial blood by Pulse oximetry 2024-01-15 03:18:00 98 /min [facility] Systolic blood pressure 2024-01-05 12:37:00 161 mm[Hg] [facility] Diastolic blood pressure 2024-01-05 12:37:00 76 mm[Hg] [facility] Heart rate 2024-01-05 12:37:00 76 /min [facility] Body temperature 2024-01-05 12:37:[address] [facility] Respiratory rate 2024-01-05 12:37:00 18 /min [facility] Body height 2024-01-05 12:37:00 177.8 cm [facility] Body weight 2024-01-05 12:37:00 99.791 kg [facility] [place] BMI 2024-01-05 12:37:00 31.57 kg/m2 [facility] Oxygen saturation in Arterial blood by Pulse oximetry 2024-01-05 12:37:00 96 /min [facility] [place] Systolic blood pressure 2021-07-10 22:35:00 173 mm[Hg] [place] [facility] Diastolic blood pressure 2021-07-10 22:35:00 71 mm[Hg] [facility] [place] Heart rate 2021-07-10 22:35:00 50 /min [facility] Body height 2021-07-10 22:35:00 177.8 cm [facility] Body weight 2021-07-10 22:35:00 114.306 kg [facility] BMI 2021-07-10 22:35:00 36.16 kg/m2 [facility] Oxygen saturation in Arterial blood by Pulse oximetry 2021-07-10 22:35:00 99 /min [facility] [place] Systolic blood pressure 2021-07-10 15:12:00 173 mm[Hg] [facility] [place] Diastolic blood pressure 2021-07-10 15:12:00 71 mm[Hg] [facility] Heart rate 2021-07-10 15:10:00 50 /min [facility] Body height 2021-07-10 15:10:00 177.8 cm [facility] Body weight 2021-07-10 15:10:00 114.306 kg [facility] [place] BMI 2021-07-10 15:10:00 36.16 kg/m2 [facility] Oxygen saturation in Arterial blood by Pulse oximetry 2021-07-10 15:10:00 99 /min [facility] Systolic blood pressure 2021-05-20 23:06:00 130 mm[Hg] [facility] Diastolic blood pressure 2021-05-20 23:06:00 76 mm[Hg] [facility] Heart rate 2021-05-20 23:05:00 67 /min [facility] Body temperature 2021-05-20 23:05:[address] [facility] Respiratory rate 2021-05-20 23:05:00 18 /min [facility] Body height 2021-05-20 23:05:00 177.8 cm [facility] Body weight 2021-05-20 23:05:00 112.583 kg [facility] BMI 2021-05-20 23:05:00 35.61 kg/m2 [facility] Oxygen saturation in Arterial blood by Pulse oximetry 2021-05-20 23:05:00 97 /min [facility] Systolic blood pressure 2021-02-14 21:09:00 153 mm[Hg] [facility] Diastolic blood pressure 2021-02-14 21:09:00 76 mm[Hg] [facility] Heart rate 2021-02-14 21:09:00 58 /min [facility] Body temperature 2021-02-14 21:09:[address] [facility] Respiratory rate 2021-02-14 21:09:00 18 /min [facility] Body weight 2021-02-14 21:09:00 115.667 kg [facility] BMI 2021-02-14 21:09:00 35.57 kg/m2 [facility] Oxygen saturation in Arterial blood by Pulse oximetry 2021-02-14 21:09:00 97 /min [facility] Systolic blood pressure 2020-04-12 14:51:00 126 mm[Hg] [facility] Diastolic blood pressure 2020-04-12 14:51:00 76 mm[Hg] [facility] Heart rate 2020-04-12 14:51:00 58 /min [facility] Body temperature 2020-04-12 14:51:[address] [facility] Respiratory rate 2020-04-12 14:51:00 18 /min [facility] Body height 2020-04-12 14:51:00 180.3 cm [facility] Body weight 2020-04-12 14:51:00 113.399 kg [facility] BMI 2020-04-12 14:51:00 34.87 kg/m2 [facility] Oxygen saturation in Arterial blood by Pulse oximetry 2020-04-12 14:51:00 98 /min [facility] Systolic blood pressure 2020-03-12 13:30:00 115 mm[Hg] [facility] Diastolic blood pressure 2020-03-12 13:30:00 81 mm[Hg] [facility] Heart rate 2020-03-12 13:30:00 51 /min [facility] Respiratory rate 2020-03-12 13:30:00 20 /min [facility] Oxygen saturation in Arterial blood by Pulse oximetry 2020-03-12 13:30:00 97 /min [facility] Body temperature 2020-03-12 12:37:[address] [facility] Body weight 2020-03-12 12:37:00 111.131 kg [facility] BMI 2020-03-12 12:37:00 34.17 kg/m2 [facility] Systolic blood pressure 2020-01-18 13:42:00 136 mm[Hg] [facility] Diastolic blood pressure 2020-01-18 13:42:00 73 mm[Hg] [facility] Heart rate 2020-01-18 13:42:00 52 /min [facility] Body temperature 2020-01-18 13:42:00 36.56 [facility] Respiratory rate 2020-01-18 13:42:00 18 /min [facility] Body height 2020-01-18 13:42:00 180.3 cm [facility] Body weight 2020-01-18 13:42:00 113.309 kg [facility] BMI 2020-01-18 13:42:00 34.84 kg/m2 [facility] Oxygen saturation in Arterial blood by Pulse oximetry 2020-01-18 13:42:00 96 /min [facility] Systolic blood pressure 2019-12-30 17:24:00 154 mm[Hg] [facility] Diastolic blood pressure 2019-12-30 17:24:00 79 mm[Hg] [facility] Heart rate 2019-12-30 17:24:00 60 /min [facility] Respiratory rate 2019-12-30 17:24:00 16 /min [facility] Oxygen saturation in Arterial blood by Pulse oximetry 2019-12-30 17:24:00 96 /min [facility] Body temperature 2019-12-30 16:55:[address] [facility] Body height 2019-12-26 22:40:00 180.3 cm [facility] Body weight 2019-12-26 22:40:00 116.121 kg [facility] BMI 2019-12-26 22:40:00 35.72 kg/m2 [facility] Systolic blood pressure 2019-12-19 14:13:00 135 mm[Hg] [facility] Diastolic blood pressure 2019-12-19 14:13:00 72 mm[Hg] [facility] Heart rate 2019-12-19 14:11:00 56 /min [facility] Respiratory rate 2019-12-19 14:11:00 19 /min [facility] Body height 2019-12-19 14:11:00 180.3 cm [facility] Body weight 2019-12-19 14:11:00 117.935 kg [facility] BMI 2019-12-19 14:11:00 36.26 kg/m2 [facility] Oxygen saturation in Arterial blood by Pulse oximetry 2019-12-19 14:11:00 96 /min [facility] Systolic blood pressure 2024-06-28 16:55:00 117 mm[Hg] [facility] Diastolic blood pressure 2024-06-28 16:55:00 57 mm[Hg] [facility] Heart rate 2024-06-28 16:55:00 65 /min [facility] Body temperature 2024-06-28 16:55:[address] [facility] Respiratory rate 2024-06-28 16:55:00 18 /min [facility] Oxygen saturation in Arterial blood by Pulse oximetry 2024-06-28 16:55:00 98 /min [facility] Body weight 2024-06-28 09:42:00 89.495 kg [facility] BMI 2024-06-28 09:42:00 28.31 kg/m2 [facility] Body height 2024-06-23 21:39:00 177.8 cm [facility] Procedures Procedure Date / Time Performed Performing Clinician Source POCT GLUCOSE (AUTOMATED) 2024-08-25 16:36[facility] (NA, K, CL, CO2, GLUCOSE, BUN, CREATININE, CA) 2024-08-25 09:18:[address] [facility] CBC WITHOUT DIFF 2024-08-25 09:18:00 Florentin Palacio [facility] POCT GLUCOSE (AUTOMATED) 2024-08-25 01:26[facility]00 [facility] 2024-08-24 23:31:[address] [facility] POCT GLUCOSE (AUTOMATED) 2024-08-24 21:24:00 Valente Garcia [facility] POCT GLUCOSE (AUTOMATED) 2024-08-24 19:28:00 Valente Garcia [facility] POCT GLUCOSE (AUTOMATED) 2024-08-24 18:31:00 Valente Garcia [facility] POCT GLUCOSE (AUTOMATED) 2024-08-24 17:43:00 Valente Garcia [facility] POCT GLUCOSE (AUTOMATED) 2024-08-24 16:28:00 [facility] 2024-08-24 15:24:00 [facility]) 2024-08-24 14:24:00 Valente Garcia [facility] POCT GLUCOSE (AUTOMATED) 2024-08-24 13:31:00 Valente Garcia [facility] POCT GLUCOSE (AUTOMATED) 2024-08-24 12:29:00 Valente Garcia [facility] POCT GLUCOSE (AUTOMATED) 2024-08-24 11:31:00 Valente Garcia [facility] POCT GLUCOSE (AUTOMATED) 2024-08-24 10:32:00 Valente Garcia [facility] POCT GLUCOSE (AUTOMATED) 2024-08-24 09:20:00 Valente Garcia [facility] BASIC METABOLIC PANEL (NA, K, CL, CO2, GLUCOSE, BUN, CREATININE, CA) 2024-08-24 09:10:00 [facility] CBC WITH DIFF 2024-08-24 09:10:00 [facility] N-TERMINAL PRO-BNP 2024-08-24 09:10:00 [facility] POCT GLUCOSE (AUTOMATED) 2024-08-24 08:31:00 Valente Garcia [facility] POCT GLUCOSE (AUTOMATED) 2024-08-24 07:40:00 Valente Garcia [facility] POCT GLUCOSE (AUTOMATED) 2024-08-24 06:34:00 Valente Garcia [facility] POCT GLUCOSE (AUTOMATED) 2024-08-24 05:18:00 [facility] POCT GLUCOSE (AUTOMATED) 2024-08-24 04:24:00 Tru [facility] POCT GLUCOSE (AUTOMATED) 2024-08-24 03:28:00 Valente Garcia [facility] POCT GLUCOSE (AUTOMATED) 2024-08-24 02:32:00 Valente Garcia [facility] POCT GLUCOSE (AUTOMATED) 2024-08-24 01:42:00 Valente Garcia [facility] POCT GLUCOSE (AUTOMATED) 2024-08-24 00:25:00 Valente Garcia [facility] POCT GLUCOSE (AUTOMATED) 2024-08-23 23:39:00 [facility] POCT GLUCOSE (AUTOMATED) 2024-08-23 23:17:00 Tru [facility] POCT GLUCOSE (AUTOMATED) 2024-08-23 22:16:00 [facility] POCT GLUCOSE (AUTOMATED) 2024-08-23 21:23:00 Tru [facility] MRSA / MSSA SCREEN BY PCRHAILY 2024-08-23 20:57:[address] [facility] POCT GLUCOSE (AUTOMATED) 2024-08-23 20:17[facility]00 [facility] 2024-08-23 19:29:00 Valente Garcia [facility] POCT GLUCOSE (AUTOMATED) 2024-08-23 16:59:00 [facility]SE(AGE >30DAYS) 2024-08-23 16:05:[address] [facility] POCT GLUCOSE(AGE >30DAYS) 2024-08-23 15:55:00 [facility] POCT GLUCOSE (AUTOMATED) 2024-08-23 15:50:00 Willian Paul [facility] POCT GLUCOSE (AUTOMATED) 2024-08-23 14:57:00 Willian Paul [facility] POCT GLUCOSE (AUTOMATED) 2024-08-23 14:36:00 Willian Paul [facility] VBG+[id number]+K+GLU+[id number]+ 2024-08-23 14:33:00 , Roma [facility] LACTIC ACID WHOLE BLOOD 2024-08-23 14:33:00 , Roma [facility] COMP. METABOLIC PANEL ([id number]) 2024-08-23 14:32:00 Singer [facility] CBC WITH DIFF 2024-08-23 14:32:00 Singer [facility] N-TERMINAL PRO-BNP 2024-08-23 14:32:[address] [facility] POCT GLUCOSE (AUTOMATED) 2024-08-23 14:12:00 Doc tor Unassigned, [place] [facility] POCT GLUCOSE (AUTOMATED) 2024-07-01 21:20:[address] [facility] POCT GLUCOSE (AUTOMATED) 2024-07-01 17:39:00 Valente Garcia [facility] POCT GLUCOSE (AUTOMATED) 2024-07-01 13:13:[address] [facility] BASIC METABOLIC PANEL (NA, K, CL, CO2, GLUCOSE, BUN, CREATININE, CA) 2024-07-01 08:40:[address] [facility] CBC WITH DIFF 2024-07-01 08:40:[address] [facility] POCT GLUCOSE (AUTOMATED) 2024-07-01 00:47:[address] [facility] POCT GLUCOSE (AUTOMATED) 2024-06-30 21:23:00 Valente Garcia [facility] POCT GLUCOSE (AUTOMATED) 2024-06-30 16:14:00 Valente Garcia [facility] POCT GLUCOSE (AUTOMATED) 2024-06-30 12:51:[address] [facility] BASIC METABOLIC PANEL (NA, K, CL, CO2, GLUCOSE, BUN, CREATININE, CA) 2024-06-30 09:22:00 Jayshree [facility] CBC WITH DIFF 2024-06-30 09:22:00 Marguerite Martell [facility] POCT GLUCOSE (AUTOMATED) 2024-06-30 02:02:00 [facility]) 2024-06-29 21:11:[address] [facility] POCT GLUCOSE (AUTOMATED) 2024-06-29 16:39:[address] [facility] POCT GLUCOSE (AUTOMATED) 2024-06-29 12:39:[address] [facility] BASIC METABOLIC PANEL (NA, K, CL, CO2, GLUCOSE, BUN, CREATININE, CA) 2024-06-29 08:24:[address] [facility] CBC WITH DIFF 2024-06-29 08:24:[address] [facility] POCT GLUCOSE (AUTOMATED) 2024-06-29 02:40:00 Valente Garcia [facility] POCT GLUCOSE (AUTOMATED) 2024-06-28 22:49:00 [facility] POCT GLUCOSE (AUTOMATED) 2024-06-28 21:56:00 [facility] 2024-06-28 16:57:00 Valente Garcia [facility] POCT GLUCOSE (AUTOMATED) 2024-06-28 16:57:[address] [facility] POCT GLUCOSE (AUTOMATED) 2024-06-28 13:02:00 Valente Garcia [facility] POCT GLUCOSE (AUTOMATED) 2024-06-28 13:02:[address] [facility] BASIC METABOLIC PANEL (NA, K, CL, CO2, GLUCOSE, BUN, CREATININE, CA) 2024-06-28 09:43:[address] [facility] MAGNESIUM 2024-06-28 09:43:00 Kimmie Sandra [facility] CBC WITH DIFF 2024-06-28 09:43:00 Kimmie [facility] VANCOMYCIN RANDOM LEVEL 2024-06-28 09:43:[address] [facility] [facility] MAGNESIUM 2024-06-28 09:43:00 Kimmie Sandra [facility] BASIC METABOLIC PANEL (NA, K, CL, CO2, GLUCOSE, BUN, CREATININE, CA) 2024-06-28 09:43:[address] [facility] VANCOMYCIN RANDOM LEVEL 2024-06-28 09:43:[address] [facility] CBC WITH DIFF 2024-06-28 09:43:00 Kimmie Sandra [facility] POCT GLUCOSE (AUTOMATED) 2024-06-28 05:07:[address] [facility] POCT GLUCOSE (AUTOMATED) 2024-06-28 05:07:00 [facility] POCT GLUCOSE (AUTOMATED) 2024-06-28 02:10:00 Valente Garcia [facility] POCT GLUCOSE (AUTOMATED) 2024-06-28 02:10:00 Valente Garcia [facility] POCT GLUCOSE (AUTOMATED) 2024-06-27 21:59:00 Valente Garcia [facility] POCT GLUCOSE (AUTOMATED) 2024-06-27 21:59:00 Valente Garcia [facility] POCT GLUCOSE (AUTOMATED) 2024-06-27 19:47:00 Valente Garcia [facility] POCT GLUCOSE (AUTOMATED) 2024-06-27 19:47:00 Valente Garcia [facility] XR CHEST 1 VW 2024-06-27 19:02:32 Kimmie Sandra [facility] XR CHEST 1 VW 2024-06-27 19:02:32 Kimmie Sandra [facility] TRANSESOPHAGEAL ECHO (RAYMOND) COMPLETE W/ DOPPLER AND COLOR 2024-06-27 17:29:00 [facility] TRANSESOPHAGEAL ECHO (RAYMOND) COMPLETE W/ DOPPLER AND COLOR 2024-06-27 17:29:00 [facility] POCT GLUCOSE (AUTOMATED) 2024-06-27 16:41:00 Valente Garcia [facility] POCT GLUCOSE (AUTOMATED) 2024-06-27 16:41:00 Valente Garcia [facility] POCT GLUCOSE (AUTOMATED) 2024-06-27 14:13:00 Valente Garcia [facility] POCT GLUCOSE (AUTOMATED) 2024-06-27 14:13:00 Valente Garcia [facility] POCT GLUCOSE (AUTOMATED) 2024-06-27 13:26:00 Valente Garcia [facility] POCT GLUCOSE (AUTOMATED) 2024-06-27 13:26:00 Valente Garcia [facility] BASIC METABOLIC PANEL (NA, K, CL, CO2, GLUCOSE, BUN, CREATININE, CA) 2024-06-27 09:41:[address] [facility] MAGNESIUM 2024-06-27 09:41:00 Kimmie Sandra [facility] CBC WITH DIFF 2024-06-27 09:41:00 Kimmie Sandra [facility] MAGNESIUM 2024-06-27 09:41:00 Kimmie Sandra [facility] BASIC METABOLIC PANEL (NA, K, CL, CO2, GLUCOSE, BUN, CREATININE, CA) 2024-06-27 09:41:[address] [facility] CBC WITH DIFF 2024-06-27 09:41:00 [facility] POCT GLUCOSE (AUTOMATED) 2024-06-27 01:37:00 Valente Garcia [facility] POCT GLUCOSE (AUTOMATED) 2024-06-27 01:37:00 Valente Garcia [facility] POCT GLUCOSE (AUTOMATED) 2024-06-26 21:58:00 Valente Garcia [facility] POCT GLUCOSE (AUTOMATED) 2024-06-26 21:58:00 Valente Garcia [facility] POCT GLUCOSE (AUTOMATED) 2024-06-26 17:25:00 Valente Garcia [facility] POCT GLUCOSE (AUTOMATED) 2024-06-26 17:25:00 Valente Garcia [facility] POCT GLUCOSE (AUTOMATED) 2024-06-26 13:17:00 Valente Garcia [facility] POCT GLUCOSE (AUTOMATED) 2024-06-26 13:17:00 Valente Garcia [facility] BASIC METABOLIC PANEL (NA, K, CL, CO2, GLUCOSE, BUN, CREATININE, CA) 2024-06-26 09:49:00 [facility] 2024-06-26 09:49:00 Kimmie Sandra [facility] CBC WITH DIFF 2024-06-26 09:49:00 Kimmie Sandra [facility] MAGNESIUM 2024-06-26 09:49:00 Kimmie Sandra [facility] BASIC METABOLIC PANEL (NA, K, CL, CO2, GLUCOSE, BUN, CREATININE, CA) 2024-06-26 09:49:00 [facility] WITH DIFF 2024-06-26 09:49:00 Kimmie Sandra [facility] POCT GLUCOSE (AUTOMATED) 2024-06-26 02:29:00 Valente Garcia [facility] POCT GLUCOSE (AUTOMATED) 2024-06-26 02:29:00 Valente Garcia [facility] POCT GLUCOSE (AUTOMATED) 2024-06-25 21:45:[address] [facility] POCT GLUCOSE (AUTOMATED) 2024-06-25 21:45:[address] [facility] POCT GLUCOSE (AUTOMATED) 2024-06-25 16:54:[address] [facility] POCT GLUCOSE (AUTOMATED) 2024-06-25 16:54:[address] [facility] POCT GLUCOSE (AUTOMATED) 2024-06-25 13:20:00 Valente [facility] POCT GLUCOSE (AUTOMATED) 2024-06-25 13:20:[address] [facility] VANCOMYCIN RANDOM LEVEL 2024-06-25 09:59:[address] [facility] VANCOMYCIN RANDOM LEVEL 2024-06-25 09:59:[address] [facility] POCT GLUCOSE (AUTOMATED) 2024-06-25 00:57:[address] [facility] POCT GLUCOSE (AUTOMATED) 2024-06-25 00:57:[address] [facility] POCT GLUCOSE (AUTOMATED) 2024-06-24 22:07:[address] [facility] POCT GLUCOSE (AUTOMATED) 2024-06-24 22:07:00 Valente [facility] POCT GLUCOSE (AUTOMATED) 2024-06-24 17:08:[address] [facility] POCT GLUCOSE (AUTOMATED) 2024-06-24 17:08:[address] [facility] BLOOD CULTURE SCREEN 2024-06-24 16:27:[address] [facility] BLOOD CULTURE SCREEN 2024-06-24 16:27:[address] [facility] CAROTID DUPLEX BILATERAL - BY VASCULAR LAB 2024-06-24 13:42:[address] [facility] CAROTID DUPLEX BILATERAL - BY VASCULAR LAB 2024-06-24 13:42:[address] [facility] POCT GLUCOSE (AUTOMATED) 2024-06-24 13:25:[address] [facility] POCT GLUCOSE (AUTOMATED) 2024-06-24 13:25:00 Valente [facility] POCT GLUCOSE (AUTOMATED) 2024-06-24 00:52:00 Valente [facility] POCT GLUCOSE (AUTOMATED) 2024-06-24 00:52:[address] [facility] AMMONIA, PLASMA 2024-06-23 23:41:00 Raj Garcia [facility] AMMONIA, PLASMA 2024-06-23 23:41:00 Tru [facility] ACUTE CARE ARTERIAL BLOOD GAS 2024-06-23 22:43:[address] [facility] ACUTE CARE ARTERIAL BLOOD GAS 2024-06-23 22:43:[address] [facility] POCT GLUCOSE (AUTOMATED) 2024-06-23 22:03:00 Valente Garcia [facility] POCT GLUCOSE (AUTOMATED) 2024-06-23 22:03:[address] [facility] MAGNESIUM 2024-06-23 21:04:00 Raj Garcia [facility] TROPONIN I 2024-06-23 21:04:00 Edouard, Sendsaira [facility] LIPID PANEL (87520)(TOTAL CHOLESTEROL, TRIGLYCERIDES, HDL) 2024-06-23 21:04:00 Javan Sendsaira K.H. [facility] MAGNESIUM 2024-06-23 21:04:00 Raj Garcia [facility] TROPONIN I 2024-06-23 21:04:00 Edouard, Sendil [facility] LIPID PANEL ([id number])(TOTAL CHOLESTEROL, TRIGLYCERIDES, HDL) 2024-06-23 21:04:00 Javan [address]H. [facility] TRANSTHORACIC ECHO (TTE) COMPLETE 2024-06-23 20:12:[address] [facility] TRANSTHORACIC ECHO (TTE) COMPLETE 2024-06-23 20:12:[address] [facility] CT HEAD WO CONTRAST 2024-06-23 17:47:[address] [facility] CT CERVICAL SPINE WO CONTRAST 2024-06-23 17:47:[address] [facility] CT CERVICAL SPINE WO CONTRAST 2024-06-23 17:47:[address] [facility] CT HEAD WO CONTRAST 2024-06-23 17:47:[address] [facility] CBC WITH DIFF 2024-06-23 17:07:00 Juno Hwang [facility] COMP. METABOLIC PANEL ([id number]) 2024-06-23 17:07:[address] [facility] TROPONIN I 2024-06-23 17:07:00 Juno Hwang [facility] N-TERMINAL PRO-BNP 2024-06-23 17:07:[address] [facility] URINALYSIS 2024-06-23 17:07:00 Juno Hwang [facility] PROTHROMBIN TIME / INR 2024-06-23 17:07:[address] [facility] ACTIVATED PARTIAL THRMPLAS NILDA 2024-06-23 17:07:[address] [facility] LACTIC ACID WHOLE BLOOD 2024-06-23 17:07:[address] [facility] GLYCOSYLATED HEMOGLOBIN (A1C) 2024-06-23 17:07:[address] [facility] TROPONIN I 2024-06-23 17:07:00 Juno Hwang [facility] COMP. METABOLIC PANEL ([id number]) 2024-06-23 17:07:[address] [facility] CBC WITH DIFF 2024-06-23 17:07:00 Juno Hwang [facility] GLYCOSYLATED HEMOGLOBIN (A1C) 2024-06-23 17:07:[address] [facility] PROTHROMBIN TIME / INR 2024-06-23 17:07:[address] [facility] ACTIVATED PARTIAL THRMPLAS NILDA 2024-06-23 17:07:[address] [facility] URINALYSIS 2024-06-23 17:07:00 Juno Hwang [facility] N-TERMINAL PRO-BNP 2024-06-23 17:07:[address] [facility] LACTIC ACID WHOLE BLOOD 2024-06-23 17:07:[address] [facility] POCT GLUCOSE (AUTOMATED) 2024-06-19 21:58:[address] [facility] POCT GLUCOSE (AUTOMATED) 2024-06-19 21:58:[address] [facility] POCT GLUCOSE (AUTOMATED) 2024-06-19 21:28:[address] [facility] POCT GLUCOSE (AUTOMATED) 2024-06-19 21:28:[address] [facility] XR CHEST 1 VW 2024-06-19 19:23:33 Juno Hwang [facility] XR CHEST 1 VW 2024-06-19 19:23:33 Juno Hwang [facility] LACTIC ACID WHOLE BLOOD 2024-06-19 19:13:[address] [facility] LACTIC ACID WHOLE BLOOD 2024-06-19 19:13:[address] [facility] URINALYSIS 2024-06-19 19:12:00 Juno Hwang [facility] URINALYSIS 2024-06-19 19:12:00 Juno Hwang [facility] URINE CULTURE 2024-06-19 19:12:00 Juno Hwang [facility] BLOOD CULTURE SCREEN 2024-06-19 19:09:[address] [facility] COMP. METABOLIC PANEL ([id number]) 2024-06-19 19:09:[address] [facility] CBC WITH DIFF 2024-06-19 19:09:00 Juno Hwang [facility] N-TERMINAL PRO-BNP 2024-06-19 19:09:[address] [facility] CBC WITH DIFF 2024-06-19 19:09:00 Juno Hwang [facility] COMP. METABOLIC PANEL ([id number]) 2024-06-19 19:09:[address] [facility] N-TERMINAL PRO-BNP 2024-06-19 19:09:[address] [facility] BLOOD CULTURE SCREEN 2024-06-19 19:09:[address] [facility] BLOOD CULTURE WORKUP 2024-06-19 19:09:[address] [facility] BLOOD CULTURE WORKUP 2024-06-19 19:09:[address] [facility] GRAM POSITIVE BLOOD PATHOGENS DNA PROBE-ANAEROBIC 2024-06-19 19:09:[address] [facility] CT HEAD WO CONTRAST 2024-06-17 00:27:[address] [facility] CT HEAD WO CONTRAST 2024-06-17 00:27:[address] [facility] DUPLEX VENOUS LEG RIGHT - BY VASCULAR LAB 2024-06-16 03:05:[address] [facility] DUPLEX VENOUS LEG RIGHT - BY VASCULAR LAB 2024-06-16 03:05:[address] [facility] COMP. METABOLIC PANEL ([id number]) 2024-06-16 00:15:[address] [facility] CBC WITH DIFF 2024-06-16 00:15:00 oZ Green [facility] D-DIMER 2024-06-16 00:15:00 Zo Green [facility] LACTIC ACID WHOLE BLOOD 2024-06-16 00:15:[address] [facility] CBC WITH DIFF 2024-06-16 00:15:00 Zo Green [facility] COMP. METABOLIC PANEL ([id number]) 2024-06-16 00:15:[address] [facility] LACTIC ACID WHOLE BLOOD 2024-06-16 00:15:[address] [facility] D-DIMER 2024-06-16 00:15:00 [facility] 2024-06-15 23:47:[address] [facility] CT HEAD WO CONTRAST 2024-06-15 23:47:08 Norma [facility] POCT GLUCOSE (AUTOMATED) 2024-04-06 10:11:00 Minerva, [facility] POCT GLUCOSE (AUTOMATED) 2024-04-06 10:11:00 Minerva [facility] POCT GLUCOSE (AUTOMATED) 2024-04-06 09:34:00 Minerva [facility] POCT GLUCOSE (AUTOMATED) 2024-04-06 09:34:00 Minerva [facility] POCT GLUCOSE (AUTOMATED) 2024-04-06 08:30:00 Minerva, [facility] POCT GLUCOSE (AUTOMATED) 2024-04-06 08:30:00 Minerva [facility] POCT GLUCOSE (AUTOMATED) 2024-04-06 07:57:00 Minerva, [facility] POCT GLUCOSE (AUTOMATED) 2024-04-06 07:57:00 Minerva [facility] POCT GLUCOSE (AUTOMATED) 2024-04-06 07:34:00 Minerva, [facility] POCT GLUCOSE (AUTOMATED) 2024-04-06 07:34:00 Minerva [facility] MAGNESIUM 2024-04-06 06:56:00 Minerva [facility] COMP. METABOLIC PANEL ([id number]) 2024-04-06 06:56:00 Minerva [facility] CBC WITH DIFF 2024-04-06 06:56:00 Mulugeta [facility] URINALYSIS 2024-04-06 06:56:00 Minerva, [facility] CBC WITH DIFF 2024-04-06 06:56:00 Minerva [facility] COMP. METABOLIC PANEL ([id number]) 2024-04-06 06:56:00 [facility] 2024-04-06 06:56:00 Minerva [facility] URINALYSIS 2024-04-06 06:56:00 Minerva [facility] POCT GLUCOSE (AUTOMATED) 2024-04-06 06:44:00 Minerva [facility] POCT GLUCOSE (AUTOMATED) 2024-04-06 06:44:00 Minerva [facility] EKG-12 LEAD 2024-04-03 21:51:36 Danya [facility] EKG-12 LEAD 2024-04-03 21:51:36 Danya [facility] ACUTE CARE ARTERIAL BLOOD GAS 2024-04-03 19:07:00 Danya [facility] ACUTE CARE ARTERIAL BLOOD GAS 2024-04-03 19:07:00 Danya [facility] AMMONIA, PLASMA 2024-04-03 18:53:00 Nando [facility] AMMONIA, PLASMA 2024-04-03 18:53:00 Nando [facility] URINALYSIS 2024-04-03 17:52:00 Danya [facility] URINE DRUG (IMMUNOASSAY) - COMPREHENSIVE DRUG SCREEN W/O REFLEX 2024-04-03 17:52:00 Danya [facility] URINALYSIS 2024-04-03 17:52:00 Danya [facility] URINE DRUG (IMMUNOASSAY) - COMPREHENSIVE DRUG SCREEN W/O REFLEX 2024-04-03 17:52:00 Danya [facility] XR CHEST 1 VW 2024-04-03 16:27:00 [facility] XR FOOT 3+ VW RIGHT 2024-04-03 16:27:[address] [facility] XR CHEST 1 VW 2024-04-03 16:27:00 [facility] XR FOOT 3+ VW RIGHT 2024-04-03 16:27:[address] [facility] LACTIC ACID WHOLE BLOOD 2024-04-03 15:53:[address] [facility] LACTIC ACID WHOLE BLOOD 2024-04-03 15:53:[address] [facility] PHOSPHORUS 2024-04-03 15:52:00 Danya [facility] CREATINE KINASE 2024-04-03 15:52:00 [facility] 2024-04-03 15:52:00 Danya [facility] TROPONIN I 2024-04-03 15:52:00 Danya [facility] COMP. METABOLIC PANEL ([id number]) 2024-04-03 15:52:00 Danya [facility] ETHANOL 2024-04-03 15:52:00 Danya [facility] CBC WITH DIFF 2024-04-03 15:52:00 Danya [facility] GALV ONLY - INFLUENZA A B RSV PCR 2024-04-03 15:52:00 [facility]-B[facility] 2024-04-03 15:52:[address] [facility] COVID-19 (ID NOW RAPID TESTING) 2024-04-03 15:52:00 Danya [facility] COVID-19 (ID NOW RAPID TESTING) 2024-04-03 15:52:00 Danya [facility] INFLUENZA A/B RSV COVID NAAT 2024-04-03 15:52:00 Danay [facility] CBC WITH DIFF 2024-04-03 15:52:00 [facility] ETHANOL 2024-04-03 15:52:00 Danya [facility] COMP. METABOLIC PANEL ([id number]) 2024-04-03 15:52:00 Danya [facility] TROPONIN I 2024-04-03 15:52:00 Danya [facility] N-TERMINAL PRO-BNP 2024-04-03 15:52:00 [facility]hijit [facility] CREATINE KINASE 2024-04-03 15:52:00 [facility] 2024-04-03 15:52:00 Danya [facility] PHOSPHORUS 2024-04-03 15:52:00 Danya [facility] LAB ONLY COVID INTERPRETATION 2024-04-03 15:52:00 Danya [facility] POCT GLUCOSE(AGE >30DAYS) 2024-04-03 15:46:00 Danya [facility] POCT GLUCOSE(AGE >30DAYS) 2024-04-03 15:46:00 Danya [facility] POCT GLUCOSE (AUTOMATED) 2024-04-03 15:43:00 Danya [facility] POCT GLUCOSE (AUTOMATED) 2024-04-03 15:43:00 Danya [facility] CT CERVICAL SPINE WO CONTRAST 2024-04-03 15:38:07 [facility]AST 2024-04-03 15:38:07 [facility] WO [facility]AST 2024-04-03 15:38:07 Danya [facility] CT CERVICAL SPINE WO CONTRAST 2024-04-03 15:38:07 Danya [facility] POCT GLUCOSE (AUTOMATED) 2024-04-01 00:04:[address] [facility] POCT GLUCOSE (AUTOMATED) 2024-04-01 00:04:[address] [facility] POCT GLUCOSE (AUTOMATED) 2024-03-31 23:19:[address] [facility] POCT GLUCOSE (AUTOMATED) 2024-03-31 23:19:[address] [facility] COMP. METABOLIC PANEL ([id number]) 2024-03-31 19:37:[address] [facility] CBC WITH DIFF 2024-03-31 19:37:00 Johnny Tee [facility] EXTRA TUBE LT. BLUE 2024-03-31 19:37:[address] [facility] CBC WITH DIFF 2024-03-31 19:37:00 Johnny Tee [facility] COMP. METABOLIC PANEL ([id number]) 2024-03-31 19:37:[address] [facility] EXTRA TUBE LT. BLUE 2024-03-31 19:37:[address] [facility] CT CERVICAL SPINE WO CONTRAST 2024-03-31 19:14:[address] [facility] CT HEAD WO CONTRAST 2024-03-31 19:14:[address] [facility] CT HEAD WO CONTRAST 2024-03-31 19:14:[address] [facility] CT CERVICAL SPINE WO CONTRAST 2024-03-31 19:14:[address] [facility] XR KNEE 3 VW RIGHT 2024-03-29 22:12:[address] [facility] XR LUMBAR SPINE 2 VW 2024-03-29 22:12:[address] [facility] XR KNEE 3 VW RIGHT 2024-03-29 22:12:[address] [facility] EKG-12 LEAD 2024-03-22 21:31:[address] [facility] URINALYSIS 2024-03-22 17:07:[address] [facility] EXTRA TUBE URINE CULTURE 2024-03-22 17:07:[address] [facility] XR CHEST 2 VW 2024-03-22 16:13:[address] [facility] CREATINE KINASE 2024-03-22 15:46:[address] [facility] TROPONIN I 2024-03-22 15:46:[address] [facility] HEPATIC FUNCTION PANEL ([id number]) (ALB,T.PRO,BILI T,BU/BC,ALT,AST,ALK PHOS) 2024-03-22 15:46:[address] [facility] BASIC METABOLIC PANEL (NA, K, CL, CO2, GLUCOSE, BUN, CREATININE, CA) 2024-03-22 15:46:[address] [facility] CBC WITH DIFF 2024-03-22 15:46:[address] [facility] GLYCOSYLATED HEMOGLOBIN (A1C) 2024-03-22 15:46:00 Tommie [facility] N-TERMINAL PRO-BNP 2024-03-22 15:46:[address] [facility] EXTRA TUBE LT. BLUE 2024-03-22 15:46:00 Tommie [facility] POCT GLUCOSE (AUTOMATED) 2024-03-12 04:41:[address] [facility] POCT GLUCOSE (AUTOMATED) 2024-03-12 03:45:00 [facility] ([facility]OMATED) 2024-03-12 02:29:[address] [place] Anthony [facility] CREATINE KINASE 2024-03-12 01:42:00 Dl Millard [facility] TROPONIN I 2024-03-12 01:42:00 Dl Millard [facility] COMP. METABOLIC PANEL ([id number]) 2024-03-12 01:42:[address] [facility] CBC WITH DIFF 2024-03-12 01:42:00 Dl Millard [facility] COMP. METABOLIC PANEL ([id number]) 2024-02-10 17:52:[address] [facility] CBC WITH DIFF 2024-02-10 17:52:00 David Paul [facility] URINALYSIS 2024-02-09 21:03:00 Tara [facility] CT HEAD WO CONTRAST 2024-02-09 20:02:[address] [facility] URINALYSIS 2024-02-06 15:15:00 Destiny Muller [facility] XR LUMBAR SPINE 3 VW 2024-02-06 15:00:[address] [facility] CT ABDOMEN PELVIS WO CONTRAST 2024-01-30 18:58:[address] [facility] COMP. METABOLIC PANEL ([id number]) 2024-01-30 16:35:[address] [facility] CBC WITH DIFF 2024-01-30 16:35:00 [facility] 2024-01-15 03:41:26 Doctor Unassigned, [place] [employer] [facility] ASSIGNMENT OF BENEFITS 2024-01-15 03:35:20 Docto r Unassigned, [place] [employer] [facility] ASSIGNMENT OF BENEFITS 2021-05-20 22:59:18 Docto r Unassigned, [place] [employer] [facility] MICROALBUMIN URINE 2021-02-14 22:17:[address] [facility] CONSENT/REFUSAL FOR DIAGNOSIS AND TREATMENT 2021-02-14 21:51:32 Doctor Unassigned, [place] [employer] [facility] [facility] ASSIGNMENT OF BENEFITS 2021-02-14 21:50:52 Docto r Unassigned, [place] [facility] XR TIBIA FIBULA 2 VW RIGHT 2020-03-12 13:27:[address] [facility] XR LUMBAR SPINE 3 VW 2020-02-16 18:44:[address] [facility] ASSIGNMENT OF BENEFITS 2020-02-16 17:58:39 Docto r Unassigned, [place] [facility] COLONOSCOPY (ENDO) 2019-12-30 15:52:[address] [facility] COLONOSCOPY (ENDO) 2019-12-30 15:52:[address] [facility] POCT GLUCOSE(AGE >30DAYS) 2019-12-30 13:50:[address] [facility] DAY SURGERY - ADC 2019-12-30 06:01:00 Doctor Ileana ssigned, [place] [facility] HCV ANTIBODY 2019-10-18 15:27:00 Tl Aranda [facility] Encounters Start Date/Time End Date/Time Encounter Type Admission Type Attending [facility] Facility Care Department Encounter ID Source 2024-12-28 06:27:00 2024-12-28 07:41:00 Emergency X SHELBY RAMIREZ WAKILI [facility] ERT [id number] [facility] 2024-12-28 06:27:00 2024-12-28 07:41:00 Emergency Shelby Ramirez S [facility] AT [facility] 1.0.114 350.1.13.10 4.2.7.2.686 [id number] [facility] 2024-12-21 11:19:00 2024-12-21 12:25:00 Emergency X DONI GALAN [facility] ERT [id number] [facility] 2024-12-21 11:19:00 2024-12-21 12:25:00 Emergency Doni Galan [facility] 1.0.114 350.1.13.10 4.2.7.2.686 [id number] [id number] [facility] 2024-12-16 00:00:00 2024-12-16 15:54:57 Patient Outreach Rupa Conroy Irene C [place] 1.0.114 350.1.13.10 4.2.7.2.686 [id number] [facility] 2024-07-21 00:00:00 2024-08-27 18:25:25 Patient Secure Msg Doctor Unassigned, [place] Doctor Unassigned, [place] [facility] 1.840.114 350.1.13.10 4.2.7.2.686 [id number] [facility] 2024-08-26 00:00:00 2024-08-26 15:23:12 Transition of Care Martell Fallon Michele A [facility] [place] [place] 1.2.840.114 350.1.13.10 4.2.7.2.686 [id number] [facility] 2024-08-23 09:12:00 2024-08-25 13:20:00 Outpatient RAJ GRAYSON [facility] [id number] [facility] 2024-08-23 09:12:00 2024-08-25 13:20:00 Emergency David Paul David [facility] 1.2840.114 350.1.13.10 4.2.7.2.686 [id number] [facility] 2024-07-04 00:00:00 2024-07-04 11:05:06 Transition of Care Martell Fallon Michele A [place] 1.2840.114 350.1.13.10 4.2.7.2.686 [id number] [facility] 2024-06-23 11:30:00 2024-07-01 17:41:00 Inpatient X FLORENTIN PALACIO [facility] [id number] [facility] 2024-06-23 11:30:00 2024-07-01 17:41:00 Hospital Encounter Juno Hwang [place], Jelani [facility] 1.2840.114 350.1.13.10 4.2.7.2.686 [id number] [facility] 2024-06-27 12:11:00 2024-06-27 12:31:00 Anesthesia Event Benja Pang Thomas 1.2.840.1 46456.1.1 3.104.2.7 .3.799519 .8 [id number] [facility] 2024-06-27 00:00:00 2024-06-27 00:00:00 Travel 1.2.840.1 46592.1.1 3.104.2.7 .3.513774 .8 1.2.840.114 350.1.13.10 4.2.7.3.698 084.8 [id number] [facility] 2024-06-23 00:00:00 2024-06-23 00:00:00 Travel 1.2.840.1 64999.1.1 3.104.2.7 .3.821412 .8 1.2.840.114 350.1.13.10 4.2.7.3.698 084.8 [id number] [facility] 2024-06-20 11:03:00 2024-06-20 12:50:00 Emergency X MULUGETA PALMA ANDRES [facility] ERT [id number] [facility] 2024-06-20 11:03:00 2024-06-20 12:50:00 Emergency Mulugeta Palma 1.2.840.1 12717.1.1 3.104.2.7 .3.436749 .8 [id number] [facility] 2024-06-19 12:34:00 2024-06-19 18:05:00 Emergency X Juno HWANG K [facility] ERT [id number] [facility] 2024-06-19 12:34:00 2024-06-19 18:05:00 Emergency Juno Hwang 1.2.840.1 11358.1.1 3.104.2.7 .3.027110 .8 [id number] [facility] 2024-06-19 00:00:00 2024-06-19 00:00:00 Travel 1.2.840.1 77578.1.1 3.104.2.7 .3.802294 .8 1.2.840.114 350.1.13.10 4.2.7.3.698 084.8 [id number] [facility] 2024-06-16 18:07:00 2024-06-16 19:57:00 Emergency X VERENICE ELENIVICENTE PERSAUD [facility] ERT [id number] [facility] 2024-06-16 18:07:00 2024-06-16 19:57:00 Emergency Vicente Caldera D 1.2.840.1 22708.1.1 3.104.2.7 .3.120565 .8 [id number] [facility] 2024-06-15 17:52:00 2024-06-16 00:32:00 Emergency X ZO GREEN [facility] ERT [id number] [facility] 2024-06-15 17:52:00 2024-06-16 00:32:00 Emergency Zo Green 1.2.840.1 25786.1.1 3.104.2.7 .3.594121 .8 [id number] [facility] 2024-06-16 00:00:00 2024-06-16 00:00:00 Travel 1.2.840.1 02406.1.1 3.104.2.7 .3.025204 .8 1.2.840.114 350.1.13.10 4.2.7.3.698 084.8 [id number] [facility] 2024-06-15 00:00:00 2024-06-15 00:00:00 Travel 1.2.840.1 06920.1.1 3.104.2.7 .3.305484 .8 1.2.840.114 350.1.13.10 4.2.7.3.698 084.8 [id number] [facility] 2024-04-21 00:00:00 2024-05-28 18:28:04 Patient Secure Msg Doctor Unassigned, [place] 1.2.840.1 63979.1.1 3.104.2.7 .3.878216 .8 [id number] [facility] 2024-04-22 00:00:00 2024-05-28 18:26:38 Patient Secure Msg Doctor Unassigned, [place] 1.2.840.1 96096.1.1 3.104.2.7 .3.902722 .8 [id number] [facility] 2024-04-20 00:00:00 2024-05-21 18:17:43 Patient Secure Msg Doctor Unassigned, [place] 1.2.840.1 34986.1.1 3.104.2.7 .3.363585 .8 [id number] [facility] 2024-04-11 00:00:00 2024-04-11 14:11:19 Patient Outreach Destiny Prajapati 1.2.840.1 69168.1.1 3.104.2.7 .3.717987 .8 [id number] [facility] 2024-04-06 01:32:00 2024-04-06 06:05:00 Emergency X MULUGETA PALMA [facility] [id number] [facility] 2024-04-06 01:32:00 2024-04-06 06:05:00 Emergency Mulugeta Palma 1.2.840.1 35549.1.1 3.104.2.7 .3.729619 .8 [id number] [facility] 2024-04-06 00:00:00 2024-04-06 00:00:00 Travel 1.2.840.1 72886.1.1 3.104.2.7 .3.265508 .8 1.2.840.114 350.1.13.10 4.2.7.3.698 084.8 [id number] [facility] 2024-04-04 00:00:00 2024-04-04 08:34:06 Patient Outreach Destiny Prajapati 1.2.840.1 65694.1.1 3.104.2.7 .3.819213 .8 [id number] [facility] 2024-04-03 09:43:00 2024-04-03 17:45:00 Emergency X NANDO HAGAN CHARLES [facility] ERT [id number] [facility] 2024-04-03 09:43:00 2024-04-03 17:45:00 Emergency Nando Hagan 1.2.840.1 84387.1.1 3.104.2.7 .3.694929 .8 [id number] [facility] 2024-04-03 00:00:00 2024-04-03 00:00:00 Travel 1.2.840.1 12170.1.1 3.104.2.7 .3.850291 .8 1.2.840.114 350.1.13.10 4.2.7.3.698 084.8 [id number] [facility] 2024-04-01 00:00:00 2024-04-01 14:18:07 Patient Outreach Destiny Prajapati 1.2.840.1 68940.1.1 3.104.2.7 .3.521388 .8 [id number] [facility] 2024-03-31 12:38:00 2024-03-31 19:42:00 Emergency X JOHNNY TEE [facility] ERT [id number] [facility] 2024-03-31 12:38:00 2024-03-31 19:42:00 Emergency Johnny Tee 1.2.840.1 21354.1.1 3.104.2.7 .3.555098 .8 [id number] [facility] 2024-03-31 00:00:00 2024-03-31 00:00:00 Travel 1.2.840.1 93466.1.1 3.104.2.7 .3.599515 .8 1.2.840.114 350.1.13.10 4.2.7.3.698 084.8 [id number] [facility] 2024-03-30 00:00:00 2024-03-30 10:17:48 Patient Outreach Destiny Prajapati 1.2.840.1 75493.1.1 3.104.2.7 .3.206372 .8 [id number] [facility] 2024-03-30 00:00:00 2024-03-30 08:13:15 Patient Outreach Destiny Prajapati 1.2.840.1 01439.1.1 3.104.2.7 .3.189073 .8 [id number] [facility] 2024-03-29 14:48:00 2024-03-29 19:06:00 Emergency X ZACSOLEANANT [facility] [id number] [facility] 2024-03-29 14:48:00 2024-03-29 19:06:00 Emergency Kvng Frank 1.2.840.1 66297.1.1 3.104.2.7 .3.660050 .8 [id number] [facility] 2024-03-29 00:00:00 2024-03-29 14:12:53 Patient Outreach Destiny Prajapati 1.2.840.1 86600.1.1 3.104.2.7 .3.562492 .8 [id number] [facility] 2024-03-29 00:00:00 2024-03-29 08:02:10 Patient Outreach Destiny Prajapati 1.2.840.1 33899.1.1 3.104.2.7 .3.508425 .8 [id number] [facility] 2024-03-29 00:00:00 2024-03-29 00:00:00 Travel 1.2.840.1 81563.1.1 3.104.2.7 .3.796893 .8 1.2.840.114 350.1.13.10 4.2.7.3.698 084.8 [id number] [facility] 2024-03-23 00:00:00 2024-03-23 00:00:00 Patient Outreach Nargis Moore 1.2.840.114 350.1.13.10 4.2.7.2.686 [id number] [facility] 2024-03-23 00:00:00 2024-03-23 00:00:00 Patient Outreach Destiny Prajapati 1.2.840.114 350.1.13.10 4.2.7.2.686 [id number] [facility] 2024-03-23 00:00:00 2024-03-23 00:00:00 Patient Outreach Destiny Prajapati 1.2.840.114 350.1.13.10 4.2.7.2.686 [id number] [facility] 2024-03-23 00:00:00 2024-03-23 00:00:00 Patient Outreach Destiny Prajapati 1.2.840.114 350.1.13.10 4.2.7.2.686 [id number] [facility] 2024-03-22 09:57:00 2024-03-22 17:18:00 Emergency X BALJIT GAYLE PAUL [facility] [id number] [facility] 2024-03-22 09:57:00 2024-03-22 17:18:00 Emergency [facility] 1.2.840.114 350.1.13.10 4.2.7.2.686 [id number] [facility] 2024-03-11 20:22:00 2024-03-12 00:03:00 Emergency X VENICE, DL [facility] ERT [id number] [facility] 2024-03-11 20:22:00 2024-03-12 00:03:00 Emergency Dl Millard [facility] 1.2.840.114 350.1.13.10 4.2.7.2.686 [id number] [facility] 2024-02-10 11:58:00 2024-02-10 15:10:00 Emergency X DAVID PAUL [facility] ERT [id number] [facility] 2024-02-10 11:58:00 2024-02-10 15:10:00 Emergency David Paul [facility] 1.2.840.114 350.1.13.10 4.2.7.2.686 [id number] [facility] 2024-02-09 14:01:00 2024-02-09 21:19:00 Emergency X XUAN TARA [facility] ERT [id number] [facility] 2024-02-09 14:01:00 2024-02-09 21:19:00 Emergency Tara Ireland [facility] 1.2.840.114 350.1.13.10 4.2.7.2.686 [id number] 084 [id number] [facility] 2024-02-06 09:21:00 2024-02-06 11:51:00 Emergency X DESTINY MULLER [facility] ERT [id number] [facility] 2024-02-06 09:21:00 2024-02-06 11:51:00 Emergency Nilay, Destiny [facility] 1..840.114 350.1.13.10 4.2.7.2.686 [id number] [facility] 2024-01-30 10:06:00 2024-01-30 15:02:00 Emergency X ZO GREEN [facility] ERT [id number] [facility] 2024-01-30 10:06:00 2024-01-30 15:02:00 Emergency Zo Green [facility] 1.2.840.114 350.1.13.10 4.2.7.2.686 [id number] [facility] 2024-01-14 21:21:00 2024-01-14 21:48:00 Emergency X NATHALY, SALMIN NATHALY, [facility] ERT [id number] [facility] 2024-01-14 21:21:00 2024-01-14 21:48:00 [facility] 1.2.840.114 350.1.13.10 4.2.7.2.686 [id number] [id number] [facility] 2024-01-05 06:39:00 2024-01-05 07:57:00 Emergency JACKIE DAO [facility] ERT [id number] [facility] 2024-01-05 06:39:00 2024-01-05 07:57:00 Emergency Jackie Diaz [facility] 1.2.840.114 350.1.13.10 4.2.7.2.686 [id number] [facility] 2022-12-29 13:30:00 2022-12-29 14:30:00 CAV Lorene Stein 2.16.840. 1.370567. 4.6.12361 [id number] 2.16.840.1. 333672.4.6. [id number] [facility] 2022-10-17 00:00:00 2022-10-17 00:00:00 Outpatient [facility] [id number] [facility] 2022-10-17 00:00:00 2022-10-17 00:00:00 Outpatient [facility] [id number] [facility] 2022-09-07 00:00:00 2022-09-07 00:00:00 Outpatient [facility] [id number] [facility] 2022-08-21 00:00:00 2022-08-21 00:00:00 Refill Tl Aranda [facility] 1.2.840.114 350.1.13.10 4.2.7.2.686 [id number] [id number] [facility] 2022-02-17 00:00:00 2022-02-17 00:00:00 Refill Tl Aranda [facility] 1.2.840.114 350.1.13.10 4.2.7.2.686 [id number] [id number] [facility] 2021-11-06 10:40:00 2021-11-06 10:40:00 Outpatient R MANOJ TL [facility] [id number] [facility] 2021-10-28 00:00:00 2021-10-28 00:00:00 Refill Manoj [facility] 1.2.840.114 350.1.13.10 4.2.7.2.686 [id number] [id number] [facility] 2021-10-03 00:00:00 2021-10-03 00:00:00 Refill Tl Aranda [facility] 1.2.840.114 350.1.13.10 4.2.7.2.686 [id number] [id number] [facility] 2021-09-09 00:00:00 2021-09-09 00:00:00 Telephone Georgina Garcia [facility] 1.2.840.114 350.1.13.10 4.2.7.2.686 [id number] [id number] [facility] 2021-07-18 00:00:00 2021-07-18 00:00:00 Patient Secure Msg Doctor Unassigned, [place] [facility] 1.2.840.114 350.1.13.10 4.2.7.2.686 [id number] [facility] 2021-07-12 00:00:00 2021-07-12 00:00:00 Telephone ManojTl [facility] Profess[facility] nal Building 1.2.840.114 350.1.13.10 4.2.7.2.686 [id number] 044 [id number] [facility] 2021-07-10 15:55:33 2021-07-10 15:55:[address] Office [address] Tl Aranda [facility] 1.2.840.114 350.1.13.10 4.2.7.2.686 [id number] 044 [id number] [facility] 2021-07-10 09:55:19 2021-07-10 11:00:50 Office Visit Tl Aranda [facility] 1.2.840.114 350.1.13.10 4.2.7.2.686 [id number] [facility] 2021-07-10 10:00:00 2021-07-10 10:00:00 Outpatient R TL ARANDA [facility] [id number] [facility] 2021-07-09 00:00:00 2021-07-09 00:00:[address] [facility] 1.2.840.114 350.1.13.10 4.2.7.2.686 [id number] [facility] 2021-06-19 00:00:00 2021-06-19 00:00:00 [facility] 1.2.840.114 350.1.13.10 4.2.7.2.686 [id number] 044 [id number] [facility] 2021-05-20 17:59:38 2021-05-20 18:39:03 Urgent Care Provider, [facility] Lesli Oscar [facility] Office Building One 1.2.840.114 350.1.13.10 4.2.7.2.686 [id number] [id number] [facility] 2021-05-20 18:20:00 2021-05-20 18:20:00 Outpatient R [facility] [id number] [facility] 2021-05-20 00:00:00 2021-05-20 00:00:00 Orders Only Doctor Unassigned, [place] [facility] 1.2.840.114 350.1.13.10 4.2.7.2.686 [id number] [facility] 2021-05-16 00:00:00 2021-05-16 00:00:[address] [facility] 1.2.840.114 350.1.13.10 4.2.7.2.686 [id number] [id number] [facility] 2021-02-14 16:53:57 2021-02-14 17:08:57 Moshgiach Visit Pob, 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 Manoj [facility] Building 1.2.840.114 350.1.13.10 4.2.7.2.686 [id number] [facility] 2021-02-14 15:55:11 2021-02-14 16:27:03 Office Visit Tl Aranda [facility] 1.2.840.114 350.1.13.10 4.2.7.2.686 [id number] 044 [id number] [facility] 2021-02-14 16:00:00 2021-02-14 16:00:00 Outpatient R TL ARANDA [facility] [id number] [facility] 2021-02-14 00:00:00 2021-02-14 00:00:00 Orders Only Doctor Unassigned, [place] [facility] 1.2.840.114 350.1.13.10 4.2.7.2.686 [id number] [facility] 2021-02-08 00:00:00 2021-02-08 00:00:00 Refill Tl Aranda [facility] 1.2.840.114 350.1.13.10 4.2.7.2.686 [id number] 044 [id number] [facility] 2021-01-28 00:00:00 2021-01-28 00:00:[address] [facility] 1.2.840.114 350.1.13.10 4.2.7.2.686 [id number] [id number] [facility] 2021-01-22 00:00:00 2021-01-22 00:00:00 Telephone Tl Aranda [facility] Professio nal Building 1.2.840.114 350.1.13.10 4.2.7.2.686 [id number] [facility] 2021-01-21 00:00:00 2021-01-21 00:00:00 Refill Tl Aranda [facility] 1.2.840.114 350.1.13.10 4.2.7.2.686 [id number] [facility] 2020-10-31 13:30:00 2020-10-31 13:30:00 Outpatient R NIMISHA YING [facility] [id number] [facility] 2020-10-09 14:40:00 2020-10-09 14:40:00 Outpatient TL MCCAULEY [facility] [id number] [facility] 2020-09-24 09:20:00 2020-09-24 09:20:00 Outpatient R FRANK QUIROZ [facility] [id number] [facility] 2020-07-09 09:20:00 2020-07-09 09:20:00 Outpatient R MANOJ TL [facility] [id number] [facility] 2020-07-09 08:17:40 2020-07-09 08:37:40 Telemedici ne Visit Manoj Tl [facility] 1.840.114 350.1.13.10 4.2.7.2.686 [id number] [facility] 2020-06-28 00:00:00 2020-06-28 00:00:[address] [facility] 1..840.114 350.1.13.10 4.2.7.2.686 [id number] [facility] 2020-04-19 08:00:00 2020-04-19 08:00:00 Outpatient R TRAMAINEOSCARMIL TL [facility] [id number] [facility] 2020-04-12 09:46:54 2020-04-12 10:06:54 Urgent Care Provider, [facility] Yossi Prasad [facility] Office Building One 1..840.114 350.1.13.10 4.2.7.2.686 [id number] [facility] 2020-04-12 10:00:00 2020-04-12 10:00:00 Outpatient R YOSSI PRASAD [facility] [id number] [facility] 2020-04-09 00:00:00 2020-04-09 00:00:[address] [facility] 1..840.114 350.1.13.10 4.2.7.2.686 [id number] [facility] 2020-04-05 00:00:00 2020-04-05 00:00:[address] [facility] 1.2.840.114 350.1.13.10 4.2.7.2.686 [id number] [facility] 2020-03-16 10:02:04 2020-03-16 10:02:51 Manager Non Profit Visit Chey Friedmansra [facility] 1.2840.114 350.1.13.10 4.2.7.2.686 [id number] [facility] 2020-03-15 15:00:00 2020-03-15 15:00:00 Outpatient R IDALIA, [facility] [id number] [facility] 2020-03-14 16:30:00 2020-03-14 16:30:00 Outpatient R REYNALDOPAULINEDARRELL [facility] [id number] [facility] 2020-03-14 15:42:00 2020-03-14 15:57:00 Telemedici ne Visit ReynaldopaulineDarrell [facility] 1.2840.114 350.1.13.10 4.2.7.2.686 [id number] [facility] 2020-03-14 00:00:00 2020-03-14 00:00:[address] [facility] 1.2.840.114 350.1.13.10 4.2.7.2.686 [id number] [facility] 2020-03-12 07:53:07 2020-03-12 08:57:00 Emergency Chelle Fernandez [facility] 1.2.840.114 350.1.13.10 4.2.7.2.686 [id number] [facility] 2020-03-12 07:53:07 2020-03-12 08:57:00 Emergency X CHELLE FERNANDEZ [facility] ERT [id number] [facility] 2020-03-08 15:00:00 2020-03-08 15:00:00 Outpatient R DEBRA FRIEDMAN [facility] [id number] [facility] 2020-02-28 13:00:00 2020-02-28 13:00:00 Outpatient R TL ARANDA [facility] [id number] [facility] 2020-02-28 07:16:07 2020-02-28 07:56:07 [facility]ici ne [facility] 1.84.114 350.1.13.10 4.2.7.2.686 [id number] [facility] 2020-02-23 00:00:00 2020-02-23 00:00:00 Telephone Manoj [facility] 1..114 350.1.13.10 4.2.7.2.686 [id number] [facility] 2020-02-16 12:59:15 2020-02-16 23:59:00 Outpatient R MNAOJ [facility] [id number] [facility] 2020-02-16 12:59:00 2020-02-16 23:59:00 [facility] 1.84.114 350.1.13.10 4.2.7.2.686 [id number] [facility] 2020-02-16 00:00:00 2020-02-16 00:00:00 Orders Only Doctor Unassigned, [place] [employer] [facility] 1.2.114 350.1.13.10 4.2.7.2.686 [id number] [facility] 2020-02-16 00:00:00 2020-02-16 00:00:[address] [facility] 1.2.840.114 350.1.13.10 4.2.7.2.686 [id number] [facility] 2020-01-18 07:23:58 2020-01-18 08:32:20 Office Visit Tl Aranda [facility] 1.2.840.114 350.1.13.10 4.2.7.2.686 [id number] [facility] 2020-01-18 07:20:00 2020-01-18 07:20:00 Outpatient R MANOJ TL [facility] [id number] [facility] 2020-01-18 00:00:00 2020-01-18 00:00:00 Letter (Out) Doctor Unassigned, [place] [employer] [facility] 1.2.840.114 350.1.13.10 4.2.7.2.686 [id number] [facility] [facility]07 00:00:00 2020-01-07 00:00:00 Natividad Corrigan [facility] 1.2.840.114 350.1.13.10 4.2.7.2.686 [id number] [facility] 2020-01-04 00:00:00 2020-01-04 00:00:[address] [facility] Building 1.2.840.114 350.1.13.10 4.2.7.2.686 [id number] [facility] 2019-12-30 07:35:00 2019-12-30 11:49:00 Hospital Encounter Glo Finn [facility] 1.2840.114 350.1.13.10 4.2.7.2.686 [id number] [facility] 2019-12-30 07:35:00 2019-12-30 11:49:00 Outpatient R GLO FINN [facility] [place] [id number] [facility] 2019-12-30 00:00:00 2019-12-30 00:00:00 Orders Only Doctor Unassigned, [place] [facility] 1.2.840.114 350.1.13.10 4.2.7.2.686 [id number] [facility] 2019-12-19 08:02:28 2019-12-19 09:08:19 Office Visit Kendall Campa Eder [facility] [place] [facility] 1..840.114 350.1.13.10 4.2.7.2.686 [id number] [facility] 2019-12-01 15:15:00 2019-12-01 15:15:00 Outpatient R JOCELYN GREER [facility] [id number] [facility] 2019-10-26 14:45:00 2019-10-26 15:36:20 Outpatient R NIMISHA YING [facility] [id number] [facility] 2019-06-10 10:30:00 2019-06-10 12:20:48 Outpatient R TL ARANDA [facility] [id number] [facility] 2019-05-30 14:20:00 2019-05-30 17:18:22 Outpatient R DARRELL MAXWELL III [facility] [id number] [facility] 2019-05-24 08:45:00 2019-05-24 08:45:00 Outpatient R MARIAMA SOMERS [facility] [id number] [facility] 2019-04-26 08:30:00 2019-04-26 09:03:15 Outpatient R MARIAMA SOMERS [facility] [id number] [facility] 2019-01-12 15:30:00 2019-01-12 16:04:35 Outpatient R NATIVIDAD COPELAND [facility] [id number] [facility] Results Test Description Test Time Test Comments Results Result Co mments Source [facility] GLUCOSE (AUTOMATED)2024-08-25 01:27:39* Test Item Value Reference Range Interpretation Comme nts POCT GLU (test code = 3068507394) 134 mg/dL 70-110 H Lab Interpretation (test cod e = 36433-1) Abnormal [facility] GLUCOSE (AUTOMATED)2024-08-24 23:32:04* Test Item Value Reference Range Interpretation Comme nts POCT GLU (test code = 9861837128) 103 mg/dL 70-110 Lab Interpretation (test cod e = 52844-6) Normal [facility] GLUCOSE (AUTOMATED)2024-08-24 21:25:39* Test Item Value Reference Range Interpretation Comme nts POCT GLU (test code = 3528613969) 175 mg/dL 70-110 H Lab Interpretation (test cod e = 52493-0) Abnormal [facility] GLUCOSE (AUTOMATED)2024-08-24 19:29:36* Test Item Value Reference Range Interpretation Comme nts POCT GLU (test code = 8922498568) 224 mg/dL 70-110 H Lab Interpretation (test cod e = 64995-3) Abnormal [facility] GLUCOSE (AUTOMATED)2024-08-24 18:32:07* Test Item Value Reference Range Interpretation Comme nts POCT GLU (test code = 2977991919) 269 mg/dL 70-110 H Lab Interpretation (test cod e = 40721-2) Abnormal [facility] GLUCOSE (AUTOMATED)2024-08-24 17:47:07* Test Item Value Reference Range Interpretation Comme nts POCT GLU (test code = 3042793700) 202 mg/dL 70-110 H Lab Interpretation (test cod e = 55212-5) Abnormal [facility] GLUCOSE (AUTOMATED)2024-08-24 16:29:35* Test Item Value Reference Range Interpretation Comme nts POCT GLU (test code = 1650683712) 224 mg/dL 70-110 H Lab Interpretation (test cod e = 05710-2) Abnormal [facility] GLUCOSE (AUTOMATED)2024-08-24 15:25:37* Test Item Value Reference Range Interpretation Comme nts POCT GLU (test code = 3435266478) 206 mg/dL 70-110 H Lab Interpretation (test cod e = 28113-1) Abnormal [facility] GLUCOSE (AUTOMATED)2024-08-24 14:25:36* Test Item Value Reference Range Interpretation Comme nts POCT GLU (test code = 4414673945) 148 mg/dL 70-110 H Lab Interpretation (test cod e = 56352-9) Abnormal [facility] GLUCOSE (AUTOMATED)2024-08-24 13:32:06* Test Item Value Reference Range Interpretation Comme nts POCT GLU (test code = 5511249345) 87 mg/dL 70-110 Lab Interpretation (test cod e = 90264-9) Normal [facility] GLUCOSE (AUTOMATED)2024-08-24 12:30:07* Test Item Value Reference Range Interpretation Comme nts POCT GLU (test code = 8949954476) 87 mg/dL 70-110 Lab Interpretation (test cod e = 22578-0) Normal [facility] GLUCOSE (AUTOMATED)2024-08-24 11:39:08* Test Item Value Reference Range Interpretation Comme nts POCT GLU (test code = 5853106000) 82 mg/dL 70-110 Lab Interpretation (test cod e = 33353-3) Normal [facility] GLUCOSE (AUTOMATED)2024-08-24 10:33:04* Test Item Value Reference Range Interpretation Comme nts POCT GLU (test code = 3745841822) 83 mg/dL 70-110 Lab Interpretation (test cod e = 64396-7) Normal [facility] GLUCOSE (AUTOMATED)2024-08-24 09:21:05* Test Item Value Reference Range Interpretation Comme nts POCT GLU (test code = 1942859978) 80 mg/dL 70-110 Lab Interpretation (test cod e = 54086-0) Normal [facility] GLUCOSE (AUTOMATED)2024-08-24 08:32:34* Test Item Value Reference Range Interpretation Comme nts POCT GLU (test code = 5628718326) 86 mg/dL 70-110 Lab Interpretation (test cod e = 72605-1) Normal [facility] GLUCOSE (AUTOMATED)2024-08-24 07:42:04* Test Item Value Reference Range Interpretation Comme nts POCT GLU (test code = 3592258014) 91 mg/dL 70-110 Lab Interpretation (test cod e = 13882-2) Normal [facility] GLUCOSE (AUTOMATED)2024-08-24 06:35:32* Test Item Value Reference Range Interpretation Comme nts POCT GLU (test code = 4185764486) 83 mg/dL 70-110 Lab Interpretation (test cod e = 06076-7) [facility] D[facility]-Fkd0938-18-02 05:50:54* Test Item Value Reference Range Interpretation Comme nts NT-proBNP (test code = 71479-9) 181 pg/mL <=125 RJ (test code = RJ) Result Indeterminate-Consid er causes of NT-proBNP elevation other than Heart failure such as acute coronary syndrome, pulmonary embolism, pulmonary hypertension, sepsis, stroke, and renal dysfunction. Lab Interpretation (test code = 67347-7) Abnormal [facility] GLUCOSE (AUTOMATED)2024-08-24 05:19:32* Test Item Value Reference Range Interpretation Comme nts POCT GLU (test code = 6801440740) 91 mg/dL 70-110 Lab Interpretation (test cod e = 28452-0) Normal [facility] GLUCOSE (AUTOMATED)2024-08-24 04:25:02* Test Item Value Reference Range Interpretation Comme nts POCT GLU (test code = 6740604909) 104 mg/dL 70-110 Lab Interpretation (test cod e = 09394-9) Normal [facility] GLUCOSE (AUTOMATED)2024-08-24 03:30:06* Test Item Value Reference Range Interpretation Comme nts POCT GLU (test code = 7821949631) 81 mg/dL 70-110 Lab Interpretation (test cod e = 34863-8) Normal [facility] GLUCOSE (AUTOMATED)2024-08-24 02:33:07* Test Item Value Reference Range Interpretation Comme nts POCT GLU (test code = 8829792547) 104 mg/dL 70-110 Lab Interpretation (test cod e = 85382-2) Normal [facility] GLUCOSE (AUTOMATED)2024-08-24 01:43:39* Test Item Value Reference Range Interpretation Comme nts POCT GLU (test code = 5324072392) 91 mg/dL 70-110 Lab Interpretation (test cod e = 94225-0) Normal [facility] GLUCOSE (AUTOMATED)2024-08-24 00:29:59* Test Item Value Reference Range Interpretation Comme nts POCT GLU (test code = 7563800288) 86 mg/dL 70-110 Lab Interpretation (test cod e = 52297-0) Normal [facility] GLUCOSE (AUTOMATED)2024-08-23 23:40:37* Test Item Value Reference Range Interpretation Comme nts POCT GLU (test code = 7994145601) 107 mg/dL 70-110 Lab Interpretation (test cod e = 54626-8) Normal [facility] GLUCOSE (AUTOMATED)2024-08-23 23:19:03* Test Item Value Reference Range Interpretation Comme nts POCT GLU (test code = 6900467187) 105 mg/dL 70-110 Lab Interpretation (test cod e = 97618-9) Normal [facility] GLUCOSE (AUTOMATED)2024-08-23 22:17:36* Test Item Value Reference Range Interpretation Comme nts POCT GLU (test code = 0030779053) 77 mg/dL 70-110 Lab Interpretation (test cod e = 41958-2) Normal [facility] GLUCOSE (AUTOMATED)2024-08-23 21:24:08* Test Item Value Reference Range Interpretation Comme nts POCT GLU (test code = 1193730920) 70 mg/dL 70-110 Lab Interpretation (test cod e = 03206-6) Normal [facility] GLUCOSE (AUTOMATED)2024-08-23 20:19:04* Test Item Value Reference Range Interpretation Comme nts POCT GLU (test code = 1960314112) 109 mg/dL 70-110 Lab Interpretation (test cod e = 39525-0) Normal [facility] GLUCOSE (AUTOMATED)2024-08-23 19:30:02* Test Item Value Reference Range Interpretation Comme nts POCT GLU (test code = 7964057704) 134 mg/dL 70-110 H Lab Interpretation (test cod e = 10514-9) Abnormal [facility] GLUCOSE (AUTOMATED)2024-08-23 17:00:32* Test Item Value Reference Range Interpretation Comme nts POCT GLU (test code = 3045407454) 119 mg/dL 70-110 H Lab Interpretation (test cod e = 39679-9) Abnormal [facility] Glucose (Age >30 Days)2024-08-23 16:05:00 * Test Item Value Reference Range Interpretation Comme nts POCT Glu (age>30days) (test code = 3342) 123 mg/dL 70-110 A ED provider informed Lab Interpretation (test code = 51846-1) Abnormal [facility] GLUCOSE(AGE >30DAYS)2024-08-23 15:55:00* Test Item Value Reference Range Interpretation Comme nts Lab Interpretation (test cod e = 72159-4) Normal [facility] GLUCOSE (AUTOMATED)2024-08-23 15:51:32* Test Item Value Reference Range Interpretation Comme nts POCT GLU (test code = 1042897520) 38 mg/dL 70-110 LL Lab Interpretation (test cod e = 83772-5) Abnormal [facility]. Metabolic Panel (23664)2024-08-23 15:18:48* Test Item Value Reference Range Interpretation Comme nts NA (test code = 9873076871) 136 mmol/L 135-145 K (test code = 6792381376) 3.6 mmol/L 3.5-5.0 CL (test code = 8400892381) 106 mmol/L 98-108 CO2 TOTAL (test code = 3421100854) 19 mmol/L 23-31 L AGAP (test code = 1237459728) 11 2-16 BUN (test code = 7182248120) 54 mg/dL 7-23 H GLUCOSE (test code = 1469181199) 56 mg/dL 70-110 L CREATININE (test code = 2160-0) 1.51 mg/dL 0.60-1.25 H TOTAL BILI (test code = 6831328709) 0.4 mg/dL 0.1-1.1 CALCIUM (test code = 1272302422) 9.0 mg/dL 8.6-10.6 T PROTEIN (test code = 2263182819) 7.4 g/dL 6.3-8.2 ALBUMIN (test code = 8001569732) 4.3 g/dL 3.5-5.0 ALK PHOS (test code = 6686643568) 85 U/L 34-122 ALTv (test code = 1742-6) 24 U/L 5-50 AST(SGOT) (test code = 6987053321) 22 U/L 13-40 eGFR (test code = 39238-6) 49.4 mL/min/1.73m2 CKD-EPI eGFR (2020). Assuming creatinine has been stable day-to-day for at least three months, the eGFR indicates Category G3a (45 - 59 mL/min/1.73 m2) Lab Interpretation (test code = 53730-1) Abnormal [facility] with Ipuh3580-98-22 14:58:25* Test Item Value Reference Range Interpretation [...] 32.5 g/dL 31.2-35.0 RDW-SD (test code = 18425-9) 47.4 fL 38.5-51.6 RDW-CV (test code = 788-0) 14.5 % 12.1-15.4 PLT (test code = 777-3) 251 150-328 MPV (test code = 57440-8) 9.6 fL 9.8-13.0 L NRBC/100 WBC (test code = 1167941906) 0.0 0.0-10.0 NRBC x10^3 (test code = 8782946443) See_Comment [Automated message] The system which generated this result transmitted reference range: 10*3/?L. The reference range was not used to interpret this result as normal/abnormal. GRAN MAT (NEUT) % (test code = 770-8) 88.2 % IMM GRAN % (test code = 0950706273) 0.90 % LYMPH % (test code = 736-9) 4.8 % MONO % (test code = 5905-5) 5.8 % EOS % (test code = 713-8) 0.0 % BASO % (test code = 706-2) 0.3 % GRAN MAT x10^3(ANC) (test code = 4662726303) 10.04 10*3/uL 1.99-6.95 H IMM GRAN x10^3 (test code = 4314161412) 0.10 10*3/uL 0.00-0.06 H LYMPH x10^3 (test code = 731-0) 0.55 10*3/uL 1.09-3.23 L MONO x10^3 (test code = 742-7) 0.66 10*3/uL 0.36-1.02 EOS x10^3 (test code = 711-2) 0.06-0.53 L BASO x10^3 (test code = 704-7) 0.03 10*3/uL 0.01-0.09 Lab Interpretation (test code = 03608-8) [facility]24-[facility]23 14:57:59* Test Item Value Reference Range Interpretation Comme nts POCT GLU (test code = 3452322003) 78 mg/dL 70-110 Lab Interpretation (test cod e = 77226-7) Normal [facility]VCOOX+NA+K+GLU+CA2+2024-08-23 14:47:11* Test Item Value Reference Range Interpretation Comme nts PH (test code = 1123971395) 7.26 7.32-7.42 L PCO2 TATIANA (test code = 3454104077) 51 41-51 PO2 TATIANA (test code = 6919327838) 21 25-40 L HCO3 TATIANA (test code = 3628241940) 22 24-28 L AC VBE(BEAKER) (test code = 1921780795) -5.2 mEq/L THB TATIANA (test code = 3786034448) 12.4 g/dL 13.5-18.0 L %O2HB TATIANA (test code = 2008074286) 33.0 % 52.0-63.0 L %COHB TATIANA (test code = 2354348692) 0.1 % 0.0-1.5 %METHB TATIANA (test code = 8031064934) 1.1 % 0.4-1.5 VOL%O2 TATIANA (test code = 8689920153) 5.8 % 6.0-12.0 L NA (test code = 4182776333) 136 mmol/L 135-145 K+ (test code = 5870954100) 3.8 mmol/L 3.5-5.0 AC CA IONZ (test code = 7524921269) 5.00 mg/dL 4.50-5.30 GLUCOSE (test code = 6512115867) 46 mg/dL 70-110 LL Lab Interpretation (test cod e = 77536-2) Abnormal [facility] Whole Cghuc1552-45-90 14:45:07* Test Item Value Reference Range Interpretation Comme nts LACTIC ACID (test code = 0681209787) 1.25 mmol/L 0.50-2.20 Lab Interpretation (test cod e = 40598-3) Normal [facility] GLUCOSE (AUTOMATED)2024-08-23 14:38:03* Test Item Value Reference Range Interpretation Comme nts POCT GLU (test code = 7553633660) 57 mg/dL 70-110 L Lab Interpretation (test cod e = 72766-4) Abnormal [facility] GLUCOSE (AUTOMATED)2024-08-23 14:18:02* Test Item Value Reference Range Interpretation Comme nts POCT GLU (test code = 5177511872) 40 mg/dL 70-110 LL Lab Interpretation (test cod e = 71769-6) Abnormal [facility] GLUCOSE (AUTOMATED)2024-07-01 21:27:12* Test Item Value Reference Range Interpretation Comme nts POCT GLU (test code = 7155048391) 189 mg/dL 70-110 H Lab Interpretation (test cod e = 43818-6) Abnormal [facility] GLUCOSE (AUTOMATED)2024-07-01 17:43:43* Test Item Value Reference Range Interpretation Comme nts POCT GLU (test code = 9932249353) 252 mg/dL 70-110 H Lab Interpretation (test cod e = 77471-1) Abnormal [facility] GLUCOSE (AUTOMATED)2024-07-01 13:20:21* Test Item Value Reference Range Interpretation Comme nts POCT GLU (test code = 3607864445) 157 mg/dL 70-110 H Lab Interpretation (test cod e = 36669-9) Abnormal [facility] GLUCOSE (AUTOMATED)2024-07-01 00:48:27* Test Item Value Reference Range Interpretation Comme nts POCT GLU (test code = 2217837818) 202 mg/dL 70-110 H Lab Interpretation (test cod e = 86975-3) Abnormal [facility] GLUCOSE (AUTOMATED)2024-06-30 21:25:25* Test Item Value Reference Range Interpretation Comme nts POCT GLU (test code = 8567037972) 214 mg/dL 70-110 H Lab Interpretation (test cod e = 17489-7) Abnormal [facility] GLUCOSE (AUTOMATED)2024-06-30 16:15:38* Test Item Value Reference Range Interpretation Comme nts POCT GLU (test code = 4580838810) 294 mg/dL 70-110 H Lab Interpretation (test cod e = 84494-6) Abnormal [facility] GLUCOSE (AUTOMATED)2024-06-30 12:52:21* Test Item Value Reference Range Interpretation Comme nts POCT GLU (test code = 4114455070) 143 mg/dL 70-110 H Lab Interpretation (test cod e = 92753-9) Abnormal [facility] GLUCOSE (AUTOMATED)2024-06-30 02:04:07* Test Item Value Reference Range Interpretation Comme nts POCT GLU (test code = 0047690365) 270 mg/dL 70-110 H Lab Interpretation (test cod e = 80613-2) Abnormal [facility] GLUCOSE (AUTOMATED)2024-06-29 21:21:05* Test Item Value Reference Range Interpretation Comme nts POCT GLU (test code = 6505041990) 154 mg/dL 70-110 H Lab Interpretation (test cod e = 79964-6) Abnormal [facility] GLUCOSE (AUTOMATED)2024-06-29 16:43:53* Test Item Value Reference Range Interpretation Comme nts POCT GLU (test code = 3779203950) 246 mg/dL 70-110 H Lab Interpretation (test cod e = 65403-4) [facility]29 12:45:39* Test Item Value Reference Range Interpretation Comme nts POCT GLU (test code = 1140673480) 242 mg/dL 70-110 H Lab Interpretation (test cod e = 73574-5) Abnormal [facility] GLUCOSE (AUTOMATED)2024-06-29 02:41:42* Test Item Value Reference Range Interpretation Comme nts POCT GLU (test code = 4107963969) 218 mg/dL 70-110 H Lab Interpretation (test cod e = 98838-7) Abnormal [facility] GLUCOSE (AUTOMATED)2024-06-28 22:50:05* Test Item Value Reference Range Interpretation Comme nts POCT GLU (test code = 2464426370) 162 mg/dL 70-110 H Lab Interpretation (test cod e = 93317-1) Abnormal [facility] GLUCOSE (AUTOMATED)2024-06-28 21:57:09* Test Item Value Reference Range Interpretation Comme nts POCT GLU (test code = 2748680071) 121 mg/dL 70-110 H Lab Interpretation (test cod e = 34195-6) Abnormal [facility] GLUCOSE (AUTOMATED)2024-06-28 16:58:11* Test Item Value Reference Range Interpretation Comme nts POCT GLU (test code = 6182725544) 255 mg/dL 70-110 H Lab Interpretation (test cod e = 25273-2) Abnormal [facility] GLUCOSE (AUTOMATED)2024-06-28 13:03:41* Test Item Value Reference Range Interpretation Comme nts POCT GLU (test code = 1782394637) 152 mg/dL 70-110 H Lab Interpretation (test cod e = 27114-7) Abnormal [facility] GLUCOSE (AUTOMATED)2024-06-28 05:08:20* Test Item Value Reference Range Interpretation Comme nts POCT GLU (test code = 0448788567) 195 mg/dL 70-110 H Lab Interpretation (test cod e = 72777-3) Abnormal [facility] GLUCOSE (AUTOMATED)2024-06-28 02:11:33* Test Item Value Reference Range Interpretation Comme nts POCT GLU (test code = 7462466508) 321 mg/dL 70-110 H Lab Interpretation (test cod e = 32534-7) [facility] NA2723-64-66 22:39:10ORDERING PHYSICIAN: KIMMIE SANDRA. HISTORY: L PICC placement TECHNIQUE: AP COMPARISON: 06/19/2024 radiograph report FINDINGS: Lungs: ?A left PICC line terminates at the cavoatrial junction. Lungs areclear. Pleura: ?No effusion or pleural disease is seen. ?No pneumothorax. Mediastinum/Daysi: ?No massesor adenopathy. Heart: ?The heart is not enlarged. Other: ?No acute osseous abnormality is seen.[facility]2024-06-27 21:59:58* Test Item Value Reference Range Interpretation Comme [facility] POCT GLU (test code = 1540229873) 196 mg/dL 70-110 H Lab Interpretation (test cod e = 70790-7) [facility]normal [facility] ([facility]MOND)2024-06-27 21:33:03 * Test Item Value Reference Range Interpretation Comme nts Height (test code = 9693671343) 70 in Weight (test code = 3685250727) 195 lbs Systolic BP (test code = 9944806158) 124 mmHg Diastolic BP (test code = 8253871616) 63 mmHg Heart Rate (test code = 7526044946) 64 bpm BSA (test code = 5941012227) 2.06 m2 Radiology Study observation (narrative) (test code = 11904-6) RJ (test code = RJ) ?Left?Ventricle: Left [...] shunt. The probe was inserted by the job superintendent. There was no probe insertion difficulty.There were 1 attempts to insert the probe. Probe in 1216. Probe out 1229. Sedation and monitoring provided by anesthesia, see Epic documentation. There were no complications during the procedure. [facility] GLUCOSE (AUTOMATED)2024-06-27 19:49:24* Test Item Value Reference Range Interpretation Comme nts POCT GLU (test code = 6285185967) 184 mg/dL 70-110 H Lab Interpretation (test cod e = 50847-4) Abnormal [facility] GLUCOSE (AUTOMATED)2024-06-27 16:43:02* Test Item Value Reference Range Interpretation Comme nts POCT GLU (test code = 6913714401) 172 mg/dL 70-110 H Lab Interpretation (test cod e = 37368-2) Abnormal [facility] GLUCOSE (AUTOMATED)2024-06-27 14:14:12* Test Item Value Reference Range Interpretation Comme nts POCT GLU (test code = 8223648779) 131 mg/dL 70-110 H Lab Interpretation (test cod e = 61894-5) Abnormal [facility] GLUCOSE (AUTOMATED)2024-06-27 13:27:58* Test Item Value Reference Range Interpretation Comme nts POCT GLU (test code = 8850180977) 135 mg/dL 70-110 H Lab Interpretation (test cod e = 87874-9) Abnormal [facility] GLUCOSE (AUTOMATED)2024-06-27 01:38:29* Test Item Value Reference Range Interpretation Comme nts POCT GLU (test code = 2725251440) 125 mg/dL 70-110 H Lab Interpretation (test cod e = 64040-5) Abnormal [facility] GLUCOSE (AUTOMATED)2024-06-26 22:04:43* Test Item Value Reference Range Interpretation Comme nts POCT GLU (test code = 5472576847) 195 mg/dL 70-110 H Lab Interpretation (test cod e = 03636-7) Abnormal [facility] GLUCOSE (AUTOMATED)2024-06-26 17:27:34* Test Item Value Reference Range Interpretation Comme nts POCT GLU (test code = 6833436102) 181 mg/dL 70-110 H Lab Interpretation (test cod e = 85713-2) Abnormal [facility] GLUCOSE (AUTOMATED)2024-06-26 13:21:13* Test Item Value Reference Range Interpretation Comme nts POCT GLU (test code = 0636080893) 109 mg/dL 70-110 Lab Interpretation (test cod e = 66289-4) Normal [facility] GLUCOSE (AUTOMATED)2024-06-26 02:30:05* Test Item Value Reference Range Interpretation Comme nts POCT GLU (test code = 1844078557) 146 mg/dL 70-110 H Lab Interpretation (test cod e = 66316-1) Abnormal [facility] GLUCOSE (AUTOMATED)2024-06-25 21:46:31* Test Item Value Reference Range Interpretation Comme nts POCT GLU (test code = 5625149657) 99 mg/dL 70-110 Lab Interpretation (test cod e = 87110-2) Normal [facility] GLUCOSE (AUTOMATED)2024-06-25 16:57:02* Test Item Value Reference Range Interpretation Comme nts POCT GLU (test code = 9843464156) 147 mg/dL 70-110 H Lab Interpretation (test cod e = 83777-5) Abnormal [facility] GLUCOSE (AUTOMATED)2024-06-25 13:21:57* Test Item Value Reference Range Interpretation Comme nts POCT GLU (test code = 5329923020) 123 mg/dL 70-110 H Lab Interpretation (test cod e = 48008-2) Abnormal [facility] GLUCOSE (AUTOMATED)2024-06-25 00:59:00* Test Item Value Reference Range Interpretation Comme nts POCT GLU (test code = 0761212966) 144 mg/dL 70-110 H Lab Interpretation (test cod e = 36435-5) Abnormal [facility] GLUCOSE (AUTOMATED)2024-06-24 22:08:33* Test Item Value Reference Range Interpretation Comme nts POCT GLU (test code = 2651452979) 162 mg/dL 70-110 H Lab Interpretation (test cod e = 48865-5) Abnormal [facility] GLUCOSE (AUTOMATED)2024-06-24 17:10:12* Test Item Value Reference Range Interpretation Comme nts POCT GLU (test code = 8947509658) 187 mg/dL 70-110 H Lab Interpretation (test cod e = 20683-0) Abnormal [facility] GLUCOSE (AUTOMATED)2024-06-24 13:28:01* Test Item Value Reference Range Interpretation Comme nts POCT GLU (test code = 4007645803) 160 mg/dL 70-110 H Lab Interpretation (test cod e = 03489-5) Abnormal [facility] GLUCOSE (AUTOMATED)2024-06-24 01:00:38* Test Item Value Reference Range Interpretation Comme nts POCT GLU (test code = 3880910060) 95 mg/dL 70-110 Lab Interpretation (test cod e = 91727-3) Normal [facility]terial Blood [facility].2024-06-23 22:45:24* Test Item Value Reference Range Interpretation Comme nts PH (test code = 2) 7.42 7.35-7.45 PCO2 (test code = 8219540903) 42 35-45 PO2 (test code = 1019112374) 90 80-100 HCO3 (test code = 7280802311) 27 22-26 H BE (test code = 0415474320) 2.3 -3.0-3.0 Lab Interpretation (test cod e = 29823-6) [facility]normal [facility]ansthoracic echo (TTE) [id number] 22:12:07* Test Item Value Reference Range Interpretation Comme nts Height (test code = 3054275262) 70 in Weight (test code = 7968992891) 202 lbs Systolic BP (test code = 7246902130) 187 mmHg Diastolic BP (test code = 4818167855) 89 mmHg Heart Rate (test code = 5704953004) 84 bpm LV GLS Endo Peak A2C () (test code = 5189930172) -22.00 % LV GLS Endo Peak A3C () (test code = 2166870462) -20.60 % LV GLS Endo Peak A4C () (test code = 6879209506) -24.20 % LV GLS Endo Peak Avg () (test code = 1934833248) -22.30 % BSA (test code = 4880821588) 2.10 m2 Ao root diam (test code = 3974461916) 4.10 cm Aortic root (test code = 8413416500) 4.1 cm Ao root annulus (test code = 1571677439) 4.1 cm LVOT diameter (test code = 4292700734) 2.02 cm LVOT area (test code = 6758783928) 3.20 cm2 LA size (test code = 4477090015) 2.9 cm LVIDD (test code = 5203699834) 4.20 cm Left Ventricular End Diastolic Volume by Teichholz Method (test code = 5413594) 77.8 mL IVS (test code = 8213567428) 0.97 cm Interventricular Septum Diastolic Thickness by 2D (test code = 6429709) 0.97 cm LVPWD (test code = 4264850566) 0.99 cm PW (test code = 0984024595) 0.99 cm 0.6-1.1 EF(Teich) (test code = 8749038843) 63.90 % LVIDS (test code = 9005959845) 2.70 cm Left Ventricular End Systolic Volume by Teichholz Method (test code = 6722446) 28.1 mL FS (test code = 2634910314) 34 % EF - 2D (test code = 31580647) 63.90 % LAV(MOD-sp4) (test code = 6957908567) 70.90 mL E wave decelartion time (test code = 9105414020) 0.25 s MV Peak A Delfino (test code = 5411538847) 117.4 cm/s MV stenosis pressure 1/2 time (test code = 4817373389) 71.2 ms MV Prop V (test code = 7741586517) 40.80 cm/s MV E/e' septal (test code = 9949125773) 8.2 cm/s Tapse (test code = 4733957544) 2.09 cm LVOT stroke volume (test code = 7331574530) 94.10 cm3 LVOT peak delfino (test code = 1817446523) 126.8 cm/s LVOT mn grad (test code = 4402206506) 3.4 mmHg AV LVOT peak gradient (test code = 4184664157) 6.4 mmHg LVOT peak VTI (test code = 7563808673) 29.4 cm LV V1 mean (test code = 2312610928) 87.90 cm/s Aortic valve mean velocity (test code = 9451373714) 102.8 cm/s Ao peak delfino (test code = 3572305336) 154.7 cm/s Ao VTI (test code = 8508909614) 32.2 cm AV area by cont VTI (test code = 8715061386) 2.9 cm2 AV area peak delfino (test code = 2298227111) 2.6 cm2 Ao max PG (test code = 2216825903) 9.60 mm[Hg] AV peak gradient (test code = 1335928902) 9.6 mmHg AV valve area (test code = 6256974536) 2.90 cm2 AV mean gradient (test code = 5084141500) 4.7 mmHg Radiology Study observation (narrative) (test code = 66391-1) RJ (test code = RJ) ?Left?Ventricle: Left [...] color flow Doppler, spectral Doppler and strain. [facility])2024-06-23 22:04:17* Test Item Value Reference Range Interpretation Comme [facility] POCT GLU (test code = 2251107793) 120 mg/dL 70-110 H Lab Interpretation (test cod e = 30256-5) Abnormal [facility] HospitalGlycosylated Hemoglobin (A1C)2024-06-23 19:21:32* Test Item Value Reference Range Interpretation Comme [facility] HGB A1C (test code = 4548-4) 7.5 % 4.0-5.7 H RJ (test code = RJ) Reference RangesNormal: <5.7%Prediabetes: 5.7 - 6.4%Diabetes: > 6.5% Lab Interpretation (test code = 56859-4) Abnormal [facility] CERVICAL SPINE WO [id number] 18:09:29CT CERVICAL SPINE WO CONTRAST HISTORY: ?Neck [...] notable at C5-C7. The prevertebral soft tissues areunremarkable.[facility] HEAD WO [id number] 18:05:47EXAM: CT HEAD WO CONTRAST HISTORY: 70 [...] contusion/small hematoma. calvarium and central skullbase are unremarkable.[facility] HospitalTroponin I 2024-06-23 17:58:20* Test Item Value Reference Range Interpretation Comme [facility] TROPONIN I (test code = 0790221689) <=0.034 RJ (test code = RJ) Reference [...] of biotin. Lab Interpretation (test code = 69894-7) Normal [facility] HospitalN-Terminal Tms-Nwj9314-69-01 17:55:37* Test Item Value Reference Range Interpretation Comme [facility] NT-proBNP (test code = 36255-9) 257 pg/mL <=125 RJ (test code = RJ) Result Indeterminate-Consid er causes of NT-proBNP elevation other than Heart failure such as acute coronary syndrome, pulmonary embolism, pulmonary hypertension, sepsis, stroke, and renal dysfunction. Lab Interpretation (test code = 18883-8) Abnormal [facility] HospitalProthrombin Time / [id number] 17:48:39* Test Item Value Reference Range Interpretation Comme [facility] PROTIME PATIENT (test code = 5964-2) 12.8 10.1-12.6 H INR (test code = 6301-6) 1.1 Normal INR <1.1; Warfarin Therapeutic range 2.0 to 3.0 or 2.5 to 3.5, depending upon the indications. Lab Interpretation (test code = 55271-9) [facility]normal [facility] HospitalActivated Partial Thrmplas [id number] 17:48:39* Test Item Value Reference Range Interpretation Comme [facility] APTT Patient (test code = 3173-2) 32 26-36 RJ (test code = RJ) The [facility] patient population mean normal value for aPTT is 30 seconds. Lab Interpretation (test code = 57186-5) Normal [facility] HospitalComp. Metabolic Panel (48857)2024-06-23 17:46:57* Test Item Value Reference Range Interpretation Comme [facility] NA (test code = 8613702397) 139 mmol/L 135-145 K (test code = 1207421289) 3.5 3.5-5.0 CL (test code = 7522882175) 102 mmol/L 98-108 CO2 TOTAL (test code = 3704867258) 27 mmol/L 23-31 AGAP (test code = 9455281751) 10 2-16 BUN (test code = 0260022606) 25 mg/dL 7-23 H GLUCOSE (test code = 0201226339) 242 mg/dL 70-110 H CREATININE (test code = 2160-0) 1.00 mg/dL 0.60-1.25 TOTAL BILI (test code = 3297930223) 0.5 mg/dL 0.1-1.1 CALCIUM (test code = 3727519454) 8.8 mg/dL 8.6-10.6 T PROTEIN (test code = 2563463320) 7.3 g/dL 6.3-8.2 ALBUMIN (test code = 2785068886) 3.9 g/dL 3.5-5.0 ALK PHOS (test code = 3351838708) 141 U/L 34-122 H ALTv (test code = 1742-6) 16 U/L 5-50 AST(SGOT) (test code = 9833289360) 24 U/L 13-40 eGFR (test code = 58400-3) 81.0 mL/min/1.73m2 CKD-EPI eGFR (2020). Assuming creatinine has been stable day-to-day for at least three months, the eGFR indicates Category G2 (60 - 89 mL/min/1.73 m2) Lab Interpretation (test code = 91104-4) Abnormal [facility] with [id number] 17:38:39* Test Item Value Reference Range Interpretation [...] 31.6 g/dL 31.2-35.0 RDW-SD (test code = 96375-9) 44.2 fL 38.5-51.6 RDW-CV (test code = 788-0) 13.5 % 12.1-15.4 PLT (test code = 777-3) 346 150-328 H MPV (test code = 64520-9) 9.4 fL 9.8-13.0 L NRBC/100 WBC (test code = 8530715687) 0.0 0.0-10.0 NRBC x10^3 (test code = 1355875639) See_Comment [Automated messa ge] The system which generated this result transmitted reference range: 10*3/?L. The reference range was not used to interpret this result as normal/abnormal. GRAN MAT (NEUT) % (test code = 770-8) 74.6 % IMM GRAN % (test code = 6417927748) 1.00 % LYMPH % (test code = 736-9) 15.2 % MONO % (test code = 5905-5) 7.7 % EOS % (test code = 713-8) 1.2 % BASO % (test code = 706-2) 0.3 % GRAN MAT x10^3(ANC) (test code = 3664556978) 6.71 10*3/uL 1.99-6.95 IMM GRAN x10^3 (test code = 2159026627) 0.09 10*3/uL 0.00-0.06 H LYMPH x10^3 (test code = 731-0) 1.37 10*3/uL 1.09-3.23 MONO x10^3 (test code = 742-7) 0.69 10*3/uL 0.36-1.02 EOS x10^3 (test code = 711-2) 0.11 10*3/uL 0.06-0.53 BASO x10^3 (test code = 704-7) 0.03 10*3/uL 0.01-0.09 Lab Interpretation (test code = 90918-8) Abnormal [facility] HospitalLactic Acid Whole Jxgeb3459-35-85 17:16:12* Test Item Value Reference Range Interpretation Comme nts LACTIC ACID (test code = 1982216887) 1.94 mmol/L 0.50-2.20 Lab Interpretation (test cod e = 64383-6) Normal [facility] HospitalBLOOD CULTURE [id number] 13:27:56* Test Item Value Reference Range Interpretation Comme nts Blood Culture-Aerobic (test code = 93277-1) Culture positive. See Blood Culture Workup for additional information. No growth AA Previous preliminary verified result was Order in Process on 06/19/2024 at 1801 CDT Blood Culture-Anaerobic (test code = 25772-9) Culture positive. See Blood Culture Workup for additional information. No growth AA Previous preliminary verified result was Order in Process on 06/19/2024 at 1801 CDT Lab Interpretation (test code = 16421-1) [facility]normal [facility] HospitalGRAM POSITIVE BLOOD PATHOGENS DNA [id number]-[id number] 19:17:54* Test Item Value Reference Range Interpretation Comments Staphylococcus aureus (test code = 68513-8) Positive Negative A mecA (test code = 68050-5) Positive Negative A RJ (test code = RJ) MRSA detected by DNA probe. ?See blood culture result for additionalsusceptibility testing information. Preferred therapy for MRSA bacteremia is vancomycin. Infectious Diseases consultation is recommended. Please contact the [facility]im[facility]wardship Program with questions.[facility] Pager: ?[phone] See blood culture result for additional information. Testing included eleven identification and three resistancemarker targets. Lab Interpretation (test code = 23904-2) Abnormal [facility] GLUCOSE (AUTOMATED)2024-06-19 21:59:53* Test Item Value Reference Range Interpretation Comme [facility] POCT GLU (test code = 7791371145) 93 mg/dL 70-110 Lab Interpretation (test cod e = 10362-5) Normal [facility] GLUCOSE (AUTOMATED)2024-06-19 21:29:59* Test Item Value Reference Range Interpretation Comme [facility] POCT GLU (test code = 2182979718) 58 mg/dL 70-110 L Lab Interpretation (test cod e = 46416-7) [facility]normal [facility] Hospital[facility]inal Qts-Kuu7863-85-28 20:03:23* Test Item Value Reference Range Interpretation Comme [facility] NT-proBNP (test code = 30579-9) 269 pg/mL <=125 RJ (test code = RJ) Result Indeterminate-Consid er causes of NT-proBNP elevation other than Heart failure such as acute coronary syndrome, pulmonary embolism, pulmonary hypertension, sepsis, stroke, and renal dysfunction. Lab Interpretation (test code = 39224-9) Abnormal [facility]. Metabolic Panel (97103)2024-06-19 19:54:20* Test Item Value Reference Range Interpretation Comme nts NA (test code = 5876067157) 139 mmol/L 135-145 K (test code = 5654840898) 3.7 mmol/L 3.5-5.0 CL (test code = 0860448169) 104 mmol/L 98-108 CO2 TOTAL (test code = 4719550575) 29 mmol/L 23-31 AGAP (test code = 1657847756) 6 2-16 BUN (test code = 4483941541) 20 mg/dL 7-23 GLUCOSE (test code = 7495141057) 70 mg/dL 70-110 CREATININE (test code = 2160-0) 0.94 mg/dL 0.60-1.25 TOTAL BILI (test code = 2039712638) 1.0 mg/dL 0.1-1.1 CALCIUM (test code = 0851455259) 8.9 mg/dL 8.6-10.6 T PROTEIN (test code = 8067043716) 7.1 g/dL 6.3-8.2 ALBUMIN (test code = 6437975154) 3.5 g/dL 3.5-5.0 ALK PHOS (test code = 8081831657) 136 U/L 34-122 H ALTv (test code = 1742-6) 14 U/L 5-50 AST(SGOT) (test code = 3676546178) 29 U/L 13-40 eGFR (test code = 82739-5) 87.2 mL/min/1.73m2 CKD-EPI eGFR (2020). Assuming creatinine has been stable day-to-day for at least three months, the eGFR indicates Category G2 (60 - 89 mL/min/1.73 m2) Lab Interpretation (test code = 11459-9) [facility]normal [facility] HospitalXR CHEST 1 [id number] 19:34:26PROCEDURE: XR CHEST 1 VW 06/19/2024 2:07 PM CLINICAL INDICATION: hallucination COMPARISON: Radiograph of 04/03/2023 for FINDINGS: The lungs are hypoventilated which results and crowding of bronchovascularbundles. No lung consolidation. There is no pleural effusion. ?Nopneumothorax. The cardiac size is normal. No aggressive osseous lesion.[facility] HospitalCbc with Czhe3350-34-91 19:29:38* Test Item Value Reference Range Interpretation [...] 32.7 g/dL 31.2-35.0 RDW-SD (test code = 65344-8) 43.8 fL 38.5-51.6 RDW-CV (test code = 788-0) 13.5 % 12.1-15.4 PLT (test code = 777-3) 300 150-328 MPV (test code = 37702-6) 9.5 fL 9.8-13.0 L NRBC/100 WBC (test code = 4777201648) 0.0 0.0-10.0 NRBC x10^3 (test code = 2495852342) See_Comment [Automated messa ge] The system which generated this result transmitted reference range: 10*3/?L. The reference range was not used to interpret this result as normal/abnormal. GRAN MAT (NEUT) % (test code = 770-8) 76.5 % IMM GRAN % (test code = 7154432420) 0.70 % LYMPH % (test code = 736-9) 12.6 % MONO % (test code = 5905-5) 8.4 % EOS % (test code = 713-8) 1.4 % BASO % (test code = 706-2) 0.4 % GRAN MAT x10^3(ANC) (test code = 7235640178) 6.95 10*3/uL 1.99-6.95 IMM GRAN x10^3 (test code = 9813742874) 0.06 10*3/uL 0.00-0.06 LYMPH x10^3 (test code = 731-0) 1.14 10*3/uL 1.09-3.23 MONO x10^3 (test code = 742-7) 0.76 10*3/uL 0.36-1.02 EOS x10^3 (test code = 711-2) 0.13 10*3/uL 0.06-0.53 BASO x10^3 (test code = 704-7) 0.04 10*3/uL 0.01-0.09 Lab Interpretation (test code = 46475-1) [facility] BranchL[facility] Acid Whole [id number] 19:15:48* Test Item Value Reference Range Interpretation Comme nts LACTIC ACID (test code = 0960099097) 1.12 mmol/L 0.50-2.20 Lab Interpretation (test cod e = 88330-8) Normal [facility] Hospital[facility] HEAD WO [id number] 00:30:51FULL RESULT: Examination: CT HEAD WO CONTRAST on 06/16/2024 7:03 PM Clinical Indication: Daily fallsComparison: 06/15/2024, 24 hour prior Technique: Noncontrast imaging was obtained from base to vertex. Findings: Relative to the previous day's exam, there is no interval changeand no evidence of hemorrhage or other acute or traumatic lesion.[facility] [place]. Metabolic Panel (33286)2024-06-16 00:49:02* Test Item Value Reference Range Interpretation Comme nts NA (test code = 1125856974) 136 mmol/L 135-145 K (test code = 0243971252) 4.2 mmol/L 3.5-5.0 CL (test code = 1125126443) 103 mmol/L 98-108 CO2 TOTAL (test code = 3939837209) 28 mmol/L 23-31 AGAP (test code = 8670874055) 5 2-16 BUN (test code = 4173035872) 21 mg/dL 7-23 GLUCOSE (test code = 5558271396) 88 mg/dL 70-110 CREATININE (test code = 2160-0) 0.97 mg/dL 0.60-1.25 TOTAL BILI (test code = 9784997350) 1.0 mg/dL 0.1-1.1 CALCIUM (test code = 1895674505) 8.6 mg/dL 8.6-10.6 T PROTEIN (test code = 1226353382) 6.8 g/dL 6.3-8.2 ALBUMIN (test code = 8950317011) 3.4 g/dL 3.5-5.0 L ALK PHOS (test code = 5605888679) 141 U/L 34-122 H ALTv (test code = 1742-6) 14 U/L 5-50 AST(SGOT) (test code = 2879993797) 23 U/L 13-40 eGFR (test code = 29086-8) 84.0 mL/min/1.73m2 CKD-EPI eGFR (2020). Assuming creatinine has been stable day-to-day for at least three months, the eGFR indicates Category G2 (60 - 89 mL/min/1.73 m2) Lab Interpretation (test code = 84369-4) [facility]normal [facility] HospitalD-Tzoes5989-60-06 00:45:25* Test Item Value Reference Range Interpretation Comments D-DIMER (test code = 6480403638) 1.38 See_Comment H [Automated message] The system [...] a diagnosis. Lab Interpretation (test code = 86222-2) [facility]normal [facility] HospitalCbc with Ntwg9668-02-76 00:34:02* Test Item Value Reference Range Interpretation [...] 33.1 g/dL 31.2-35.0 RDW-SD (test code = 78529-3) 43.0 fL 38.5-51.6 RDW-CV (test code = 788-0) 13.2 % 12.1-15.4 PLT (test code = 777-3) 241 150-328 MPV (test code = 51935-2) 9.6 fL 9.8-13.0 L NRBC/100 WBC (test code = 6147350677) 0.0 0.0-10.0 NRBC x10^3 (test code = 3263158999) See_Comment [Automated messa ge] The system which generated this result transmitted reference range: 10*3/?L. The reference range was not used to interpret this result as normal/abnormal. GRAN MAT (NEUT) % (test code = 770-8) 77.2 % IMM GRAN % (test code = 1641170352) 0.40 % LYMPH % (test code = 736-9) 11.2 % MONO % (test code = 5905-5) 10.1 % EOS % (test code = 713-8) 0.9 % BASO % (test code = 706-2) 0.2 % GRAN MAT x10^3(ANC) (test code = 2786454033) 8.18 10*3/uL 1.99-6.95 H IMM GRAN x10^3 (test code = 0629148083) 0.04 10*3/uL 0.00-0.06 LYMPH x10^3 (test code = 731-0) 1.18 10*3/uL 1.09-3.23 MONO x10^3 (test code = 742-7) 1.07 10*3/uL 0.36-1.02 H EOS x10^3 (test code = 711-2) 0.09 10*3/uL 0.06-0.53 BASO x10^3 (test code = 704-7) 0.01-0.09 Lab Interpretation (test code = 29630-0) [facility]normal [facility] HospitalLactic Acid Whole [id number] 00:22:09* Test Item Value Reference Range Interpretation Comme nts LACTIC ACID (test code = 3631274528) 1.33 mmol/L 0.50-2.20 Lab Interpretation (test cod e = 91128-9) Normal [facility] HEAD WO [id number] 23:53:17EXAM: CT HEAD WO CONTRAST HISTORY: 69 [...] clear. The calvariumand central skull base are unremarkable.[facility] GLUCOSE (AUTOMATED)2024-04-06 10:12:31* Test Item Value Reference Range Interpretation Comme nts POCT GLU (test code = 6528792978) 254 mg/dL 70-110 H Lab Interpretation (test cod e = 66565-3) Abnormal [facility] GLUCOSE (AUTOMATED)2024-04-06 09:35:12* Test Item Value Reference Range Interpretation Comme nts POCT GLU (test code = 5311685296) 349 mg/dL 70-110 H Lab Interpretation (test cod e = 26802-1) Abnormal [facility] GLUCOSE (AUTOMATED)2024-04-06 08:34:06* Test Item Value Reference Range Interpretation Comme nts POCT GLU (test code = 2147634021) 299 mg/dL 70-110 H Lab Interpretation (test cod e = 25325-7) Abnormal [facility] GLUCOSE (AUTOMATED)2024-04-06 07:58:40* Test Item Value Reference Range Interpretation Comme nts POCT GLU (test code = 6465003352) 446 mg/dL 70-110 H Lab Interpretation (test cod e = 13912-0) Abnormal [facility] [place]. Metabolic Panel (86022)2024-04-06 07:47:06* Test Item Value Reference Range Interpretation Comme nts NA (test code = 2190842311) 126 mmol/L 135-145 L K (test code = 4577929508) 4.4 mmol/L 3.5-5.0 CL (test code = 8163100678) 93 mmol/L 98-108 L CO2 TOTAL (test code = 2349466929) 27 mmol/L 23-31 AGAP (test code = 4911768259) 6 2-16 BUN (test code = 0299899308) 21 mg/dL 7-23 GLUCOSE (test code = 2632843500) 518 mg/dL 70-110 HH CREATININE (test code = 2160-0) 1.08 mg/dL 0.60-1.25 TOTAL BILI (test code = 8949351140) 0.7 mg/dL 0.1-1.1 CALCIUM (test code = 1009992841) 8.1 mg/dL 8.6-10.6 L T PROTEIN (test code = 2652578806) 6.6 g/dL 6.3-8.2 ALBUMIN (test code = 9437119330) 3.5 g/dL 3.5-5.0 ALK PHOS (test code = 8146794104) 160 U/L 34-122 H ALTv (test code = 1742-6) 15 U/L 5-50 AST(SGOT) (test code = 2505292472) 33 U/L 13-40 eGFR (test code = 17826-0) 73.8 mL/min/1.73m2 CKD-EPI eGFR (2020). Assuming creatinine has been stable day-to-day for at least three months, the eGFR indicates Category G2 (60 - 89 mL/min/1.73 m2) Lab Interpretation (test code = 71098-5) [facility]normal [facility] HospitalMagnesium2024-05-15 07:44:19* Test Item Value Reference Range Interpretation Comme nts MAGNESIUM (test code = 9131166421) 1.6 mg/dL 1.7-2.4 L Lab Interpretation (test cod e = 07126-1) Abnormal [facility] HospitalPO[facility] GLUCOSE (AUTOMATED)2024-04-06 07:36:55* Test Item Value Reference Range Interpretation Comme nts POCT GLU (test code = 9395257177) 476 mg/dL 70-110 HH Lab Interpretation (test cod e = 08040-9) Abnormal [facility] with Cpgj0876-08-09 07:23:19* Test Item Value Reference Range Interpretation [...] 34.6 g/dL 31.2-35.0 RDW-SD (test code = 33794-1) 39.8 fL 38.5-51.6 RDW-CV (test code = 788-0) 12.2 % 12.1-15.4 PLT (test code = 777-3) 251 150-328 MPV (test code = 14170-8) 10.5 fL 9.8-13.0 NRBC/100 WBC (test code = 7603307845) 0.0 0.0-10.0 NRBC x10^3 (test code = 1109604647) See_Comment [Automated messa ge] The system which generated this result transmitted reference range: 10*3/?L. The reference range was not used to interpret this result as normal/abnormal. GRAN MAT (NEUT) % (test code = 770-8) 76.0 % IMM GRAN % (test code = 7973682728) 0.90 % LYMPH % (test code = 736-9) 11.5 % MONO % (test code = 5905-5) 10.5 % EOS % (test code = 713-8) 0.8 % BASO % (test code = 706-2) 0.3 % GRAN MAT x10^3(ANC) (test code = 6813317688) 9.08 10*3/uL 1.99-6.95 H IMM GRAN x10^3 (test code = 1450891918) 0.11 10*3/uL 0.00-0.06 H LYMPH x10^3 (test code = 731-0) 1.38 10*3/uL 1.09-3.23 MONO x10^3 (test code = 742-7) 1.26 10*3/uL 0.36-1.02 H EOS x10^3 (test code = 711-2) 0.10 10*3/uL 0.06-0.53 BASO x10^3 (test code = 704-7) 0.04 10*3/uL 0.01-0.09 Lab Interpretation (test code = 31961-5) Abnormal [facility] HospitalP[facility] GLU[facility]SE (AUTOMATED)2024-04-06 06:45:34* Test Item Value Reference Range Interpretation Comme nts POCT GLU (test code = 0504077857) 495 mg/dL 70-110 HH Lab Interpretation (test cod e = 37541-0) Abnormal [facility] HEAD WO [id number] 20:17:39EXAMS: CT HEAD WO CONTRAST, CT CERVICAL [...] facetarthropathy, most pronounced at C5-C6 and C6-C7, unchanged.[facility] CERVICAL SPINE WO [id number] 20:17:39EXAMS: CT HEAD WO CONTRAST, CT CERVICAL [...] facetarthropathy, most pronounced at C5-C6 and C6-C7, unchanged.[facility] HospitalAmmonia, Qumqdw9320-67-89 19:25:25* Test Item Value Reference Range Interpretation Comme nts AMMONIA (test code = 7987675293) 9-33 L Lab Interpretation (test cod e = 22830-4) [facility]normal [facility]XR [facility] 3+ VW [id number] 17:22:17XR FOOT 3+ VW RIGHT 04/03/2024 10:15 AM History: r/o fx/osteo midfoot Comparison: None Findings: 3 views of the right foot are received for interpretation. There is no fracture or dislocation. Soft tissues are unremarkable. Thereare no radiopaque foreign bodies. Joint spaces are preserved.[facility]XR [facility]+ VW [id number] 17:22:17XR FOOT 3+ VW RIGHT 04/03/2024 10:15 AM History: r/o fx/osteo midfoot Comparison: None Findings: 3 views of the right foot are received for interpretation. There is no fracture or dislocation. Soft tissues are unremarkable. Thereare no radiopaque foreign bodies. Joint spaces are preserved.[facility] 1 [id number] 17:18:12 XR CHEST 1 VW HISTORY: ?r/o CHF/infiltrate COMPARISON: March 22, 2024 FINDINGS: The patient is slightly rotated on the film. ?There is noinfiltrate or pleural effusion. ?The cardiomediastinal silhouette is withinnormal limits. ?There is no pneumothorax.[facility] HospitalTR[facility] [id number] 16:54:12* Test Item Value Reference Range Interpretation Comme [facility] TROPONIN I (test code = 2169474597) 0.006 ng/mL <=0.034 RJ (test code = [...] of biotin. Lab Interpretation (test code = 98696-0) Normal [facility]MINAL [id number] 16:54:12* Test Item Value Reference Range Interpretation Comme [facility] NT-proBNP (test code = 48078-8) 302 pg/mL <=125 RJ (test code = RJ) Result Indeterminate-Consid er causes of NT-proBNP elevation other than Heart failure such as acute coronary syndrome, pulmonary embolism, pulmonary hypertension, sepsis, stroke, and renal dysfunction. Lab Interpretation (test code = 04101-9) Abnormal [facility] HospitalETHANOL2024-05-12 16:53:42 ALCOHOL<10mg/dL04/03/2024 11:53 AM CDTUTMB LABORATORY SERVICESToxic Greater than or equal to 80 mg/dL. NOTE: Whole blood values are approximately 10% to 15% lower than serum and plasma.[facility] HospitalETHANOL2024-05-12 16:53:42ALCOHOL<10mg/dL04/03/2024 11:53 AM CDTCROWNPOINT [facility] LABORATORY SERVICESToxic Greater than or equal to 80 mg/dL. NOTE: Whole blood values are approximately 10% to 15% lower than serum and plasma.[facility] Creatine Zbixnh7775-11-22 16:43:13* Test Item Value Reference Range Interpretation Comme nts CK (test code = 6033214630) 35 U/L 33-194 Lab Interpretation (test cod e = 21205-7) Normal [facility]osphorus2024-05-12 16:43:13* Test Item Value Reference Range Interpretation Comme nts PHOSPHORUS (test code = 3520792865) 3.6 mg/dL 2.5-5.0 Lab Interpretation (test cod e = 04648-9) Normal [facility]2024-05-12 16:43:13* Test Item Value Reference Range Interpretation Comme nts PHOSPHORUS (test code = 9814619916) 3.6 mg/dL 2.5-5.0 Lab Interpretation (test cod e = 32985-4) Normal [facility] [id number] 16:43:13* Test Item Value Reference Range Interpretation Comme nts CK (test code = 7876946758) 35 U/L 33-194 Lab Interpretation (test cod e = 21230-9) Normal [facility] HospitalCOMP. METABOLIC PANEL (63511)2024-04-03 16:43:12* Test Item Value Reference Range Interpretation Comme nts NA (test code = 2874969399) 132 mmol/L 135-145 L K (test code = 7626905712) 4.4 mmol/L 3.5-5.0 Slight hemolysis CL (test code = 9527932832) 97 mmol/L 98-108 L CO2 TOTAL (test code = 1592554705) 29 mmol/L 23-31 AGAP (test code = 3456289017) 6 2-16 BUN (test code = 5575852785) 17 mg/dL 7-23 Slight hemolysis GLUCOSE (test code = 6343573086) 353 mg/dL 70-110 H CREATININE (test code = 2160-0) 0.89 mg/dL 0.60-1.25 TOTAL BILI (test code = 7967030360) 0.9 mg/dL 0.1-1.1 CALCIUM (test code = 7544681841) 9.0 mg/dL 8.6-10.6 T PROTEIN (test code = 3627615373) 6.6 g/dL 6.3-8.2 ALBUMIN (test code = 3724827939) 3.7 g/dL 3.5-5.0 ALK PHOS (test code = 4702052354) 118 U/L 34-122 Slight hemolysis ALTv (test code = 1742-6) 14 U/L 5-50 AST(SGOT) (test code = 8136804869) 19 U/L 13-40 Slight hemolysis eGFR (test code = 91356-2) 92.2 mL/min/1.73m2 CKD-EPI eGFR (2020). Assuming creatinine has been stable day-to-day for at least three months, the eGFR indicates Category G1 (>= 90 mL/min/1.73 m2) Lab Interpretation (test code = 80722-9) [facility]normal [facility] HospitalMagnesium2024-05-12 16:43:12* Test Item Value Reference Range Interpretation Comme nts MAGNESIUM (test code = 8993854749) 1.6 mg/dL 1.7-2.4 L Lab Interpretation (test cod e = 16965-7) Abnormal [facility] WITH [id number] 16:35:09* Test Item Value Reference Range Interpretation [...] 34.0 g/dL 31.2-35.0 RDW-SD (test code = 64581-9) 39.7 fL 38.5-51.6 RDW-CV (test code = 788-0) 12.3 % 12.1-15.4 PLT (test code = 777-3) 258 150-328 MPV (test code = 07232-9) 10.0 fL 9.8-13.0 NRBC/100 WBC (test code = 2453400722) 0.0 0.0-10.0 NRBC x10^3 (test code = 5418690959) See_Comment [Automated messa ge] The system which generated this result transmitted reference range: 10*3/?L. The reference range was not used to interpret this result as normal/abnormal. GRAN MAT (NEUT) % (test code = 770-8) 81.2 % IMM GRAN % (test code = 5390474621) 0.70 % LYMPH % (test code = 736-9) 11.3 % MONO % (test code = 5905-5) 6.5 % EOS % (test code = 713-8) 0.1 % BASO % (test code = 706-2) 0.2 % GRAN MAT x10^3(ANC) (test code = 5666923645) 9.37 10*3/uL 1.99-6.95 H IMM GRAN x10^3 (test code = 6804702306) 0.08 10*3/uL 0.00-0.06 H LYMPH x10^3 (test code = 731-0) 1.30 10*3/uL 1.09-3.23 MONO x10^3 (test code = 742-7) 0.75 10*3/uL 0.36-1.02 EOS x10^3 (test code = 711-2) 0.06-0.53 L BASO x10^3 (test code = 704-7) 0.01-0.09 Lab Interpretation (test code = 04093-7) Abnormal [facility] HospitalLasdic Acid Whole Afixq6987-88-07 16:30:22* Test Item Value Reference Range Interpretation Comme nts LACTIC ACID (test code = 9711054295) 1.63 mmol/L 0.50-2.20 QUES Lab Interpretation (test cod e = 40915-2) Normal [facility] >30DAYS[facility]2024-04-03 15:46:00* Test Item Value Reference Range Interpretation Comme nts POCT Glu (age>30days) (test code = 3342) 305 mg/dL 70-110 A Lab Interpretation (test cod e = 72622-2) [facility]normal [facility] BranchP[facility] GLU[facility]SE(AGE >30DAYS)2024-04-03 15:46:00* Test Item Value Reference Range Interpretation Comme nts POCT Glu (age>30days) (test code = 3342) 305 mg/dL 70-110 A Lab Interpretation (test cod e = 85811-6) Abnormal [facility] GLUCOSE (AUTOMATED)2024-04-03 15:44:37* Test Item Value Reference Range Interpretation Comme nts POCT GLU (test code = 7261375456) 305 mg/dL 70-110 H Lab Interpretation (test cod e = 39869-8) Abnormal [facility] GLUCOSE (AUTOMATED)2024-04-01 00:05:36* Test Item Value Reference Range Interpretation Comme nts POCT GLU (test code = 8869182454) 215 mg/dL 70-110 H Lab Interpretation (test cod e = 39553-1) Abnormal [facility] GLUCOSE (AUTOMATED)2024-03-31 23:20:38* Test Item Value Reference Range Interpretation Comme nts POCT GLU (test code = 4593931293) 468 mg/dL 70-110 HH Lab Interpretation (test cod e = 35922-6) Abnormal [facility] HEAD WO [id number] 19:45:11EXAM: CT HEAD WO CONTRAST, CT CERVICAL [...] cervical soft tissues and visualized lung apices areunremarkable.[facility] HospitalCT CERVICAL SPINE WO [id number] 19:45:11EXAM: CT HEAD WO CONTRAST, CT CERVICAL [...] cervical soft tissues and visualized lung apices areunremarkable.[facility] HospitalXR LUMBAR SPINE 2 [id number] 00:16:22EXAM: XR LUMBAR SPINE 2 VW HISTORY: [...] in normal alignment. Theintervertebral disc spaces are preserved.[facility] HospitalXR KNEE 3 VW [id number] 22:53:33EXAM: XR KNEE 3 VW RIGHT HISTORY: [...] the proximal tibia metadiaphysis may be posttraumatic. [facility] KNEE 3 VW [id number] 22:53:33EXAM: XR KNEE 3 VW RIGHT HISTORY: [...] the proximal tibia metadiaphysis may be posttraumatic. [facility] HospitalGlycosylated Hemoglobin (A1C)2024-03-22 22:08:29* Test Item Value Reference Range Interpretation Comme nts HGB A1C (test code = 4548-4) 12.1 % 4.0-5.7 H RJ (test code = RJ) Reference RangesNormal: <5.7%Prediabetes: 5.7 - 6.4%Diabetes: > 6.5% Lab Interpretation (test code = 53649-9) Abnormal [facility] HospitalN-TERMINAL [id number] 17:06:26* Test Item Value Reference Range Interpretation Comme [facility] NT-proBNP (test code = 72960-3) 108 pg/mL <=125 Lab Interpretation (test cod e = 23618-6) Normal [facility] HospitalTROPONIN [id number] 17:06:26* Test Item Value Reference Range Interpretation Comme nts TROPONIN I (test code = 8770768640) 0.007 ng/mL <=0.034 RJ (test code = [...] of biotin. Lab Interpretation (test code = 80175-3) Normal [facility] HospitalHEPATIC FUNCTION PANEL (61067) (ALB,T.PRO,BILI T,BU/BC,ALT,AST,ALK PHOS)2024-03-22 16:57:07* Test Item Value Reference Range Interpretation Comme nts TOTAL BILI (test code = 8840624737) 0.6 mg/dL 0.1-1.1 BILI UNCON (test code = 1387821322) 0.1 mg/dL 0.1-1.1 BILI CONJ (test code = 2985162680) 0.0 mg/dL 0.0-0.3 T PROTEIN (test code = 7289817604) 6.7 g/dL 6.3-8.2 ALBUMIN (test code = 7413771796) 3.7 g/dL 3.5-5.0 ALK PHOS (test code = 4468953257) 102 U/L 34-122 ALTv (test code = 1742-6) 18 U/L 5-50 AST(SGOT) (test code = 3673866640) 24 U/L 13-40 Lab Interpretation (test cod e = 70182-4) Normal [facility] HospitalBASIC METABOLIC PANEL (NA, K, CL, CO2, GLUCOSE, BUN, CREATININE, CA)2024-03-22 16:57:07* Test Item Value Reference Range Interpretation Comme nts NA (test code = 4880962843) 137 mmol/L 135-145 K (test code = 4892597259) 3.8 mmol/L 3.5-5.0 CL (test code = 4181121393) 106 mmol/L 98-108 CO2 TOTAL (test code = 5746023447) 24 mmol/L 23-31 AGAP (test code = 7980159662) 7 2-16 BUN (test code = 7369552220) 12 mg/dL 7-23 GLUCOSE (test code = 3970997065) 132 mg/dL 70-110 H CREATININE (test code = 2160-0) 0.97 mg/dL 0.60-1.25 CALCIUM (test code = 5626566211) 8.8 mg/dL 8.6-10.6 eGFR (test code = 00385-7) 84.0 mL/min/1.73m2 CKD-EPI eGFR (2020). Assuming creatinine has been stable day-to-day for at least three months, the eGFR indicates Category G2 (60 - 89 mL/min/1.73 m2) Lab Interpretation (test code = 13558-6) Abnormal [facility] HospitalCreatine [id number] 16:57:07* Test Item Value Reference Range Interpretation Comme nts CK (test code = 7409769531) 51 U/L 33-194 Lab Interpretation (test cod e = 32157-7) Normal [facility] WITH [id number] 16:38:44* Test Item Value Reference Range Interpretation [...] 34.2 g/dL 31.2-35.0 RDW-SD (test code = 87673-9) 42.8 fL 38.5-51.6 RDW-CV (test code = 788-0) 13.2 % 12.1-15.4 PLT (test code = 777-3) 259 150-328 MPV (test code = 93282-9) 10.8 fL 9.8-13.0 NRBC/100 WBC (test code = 3417910375) 0.0 0.0-10.0 NRBC x10^3 (test code = 1185842435) See_Comment [Automated messa ge] The system which generated this result transmitted reference range: 10*3/?L. The reference range was not used to interpret this result as normal/abnormal. GRAN MAT (NEUT) % (test code = 770-8) 72.5 % IMM GRAN % (test code = 0809927486) 1.10 % LYMPH % (test code = 736-9) 13.2 % MONO % (test code = 5905-5) 11.4 % EOS % (test code = 713-8) 1.3 % BASO % (test code = 706-2) 0.5 % GRAN MAT x10^3(ANC) (test code = 7449439661) 6.01 10*3/uL 1.99-6.95 IMM GRAN x10^3 (test code = 5172635872) 0.09 10*3/uL 0.00-0.06 H LYMPH x10^3 (test code = 731-0) 1.09 10*3/uL 1.09-3.23 MONO x10^3 (test code = 742-7) 0.94 10*3/uL 0.36-1.02 EOS x10^3 (test code = 711-2) 0.11 10*3/uL 0.06-0.53 BASO x10^3 (test code = 704-7) 0.04 10*3/uL 0.01-0.09 Lab Interpretation (test code = 03577-3) Abnormal [facility]XR CHEST 2 [id number] 16:14:04EXAM: XR CHEST 2 03/22/2024 11:01 AM HISTORY: 69 years-old Male with fluid overload . TECHNIQUE: PA and lateral chest radiographs. COMPARISON: 02/14/2019. FINDINGS: Lines and tubes: None. Cardiomediastinal: The cardiomediastinal silhouette is unremarkable. Lungs and pleura: The lungs are clear. Nofocal consolidation,pneumothorax, or pleural effusion is seen. Included osseous structures show no acute abnormality. Degenerative changeinvolving the spine and AC joints is present.[facility] GLUCOSE (AUTOMATED) 2024-03-12 04:43:11* Test Item Value Reference Range Interpretation Comme nts POCT GLU (test code = 6401221135) 213 mg/dL 70-110 H Lab Interpretation (test cod e = 58250-3) Abnormal [facility] GLUCOSE (AUTOMATED)2024-03-12 03:47:48* Test Item Value Reference Range Interpretation Comme nts POCT GLU (test code = 5718619223) 258 mg/dL 70-110 H Lab Interpretation (test cod e = 56616-2) Abnormal [facility] GLUCOSE (AUTOMATED)2024-03-12 02:29:49* Test Item Value Reference Range Interpretation Comme nts POCT GLU (test code = 1911063661) 579 mg/dL 70-110 HH Lab Interpretation (test cod e = 94364-3) Abnormal [facility]. Metabolic Panel (55618)2024-03-12 02:17:22* Test Item Value Reference Range Interpretation Comme nts NA (test code = 8256384345) 130 mmol/L 135-145 L K (test code = 3386535895) 4.4 mmol/L 3.5-5.0 CL (test code = 9430497859) 98 mmol/L 98-108 CO2 TOTAL (test code = 7306695820) 26 mmol/L 23-31 AGAP (test code = 9707756439) 6 2-16 BUN (test code = 0742108409) 24 mg/dL 7-23 H GLUCOSE (test code = 4342391452) 614 mg/dL 70-110 HH CREATININE (test code = 2160-0) 1.21 mg/dL 0.60-1.25 TOTAL BILI (test code = 6134029717) 0.4 mg/dL 0.1-1.1 CALCIUM (test code = 4852005340) 8.6 mg/dL 8.6-10.6 T PROTEIN (test code = 4883046230) 6.1 g/dL 6.3-8.2 L ALBUMIN (test code = 1828004268) 3.5 g/dL 3.5-5.0 ALK PHOS (test code = 0046531958) 107 U/L 34-122 ALTv (test code = 1742-6) 17 U/L 5-50 AST(SGOT) (test code = 0365111988) 16 U/L 13-40 eGFR (test code = 44133-0) 64.4 mL/min/1.73m2 CKD-EPI eGFR (2020). Assuming creatinine has been stable day-to-day for at least three months, the eGFR indicates Category G2 (60 - 89 mL/min/1.73 m2) Lab Interpretation (test code = 99839-6) [facility]normal [facility] HospitalTroponin [id number] 02:15:00* Test Item Value Reference Range Interpretation Comme nts TROPONIN I (test code = 8001328198) 0.006 ng/mL <=0.034 RJ (test code = [...] of biotin. Lab Interpretation (test code = 88772-4) Normal [facility] HospitalCreatine Ewtjfv6862-87-67 02:11:59* Test Item Value Reference Range Interpretation Comme nts CK (test code = 0601703441) 32 U/L 33-194 L Lab Interpretation (test cod e = 33542-9) [facility]normal [facility] HospitalCbc with [id number] 01:59:02* Test Item Value Reference Range Interpretation [...] 34.2 g/dL 31.2-35.0 RDW-SD (test code = 58631-6) 41.0 fL 38.5-51.6 RDW-CV (test code = 788-0) 12.9 % 12.1-15.4 PLT (test code = 777-3) 231 150-328 MPV (test code = 40696-0) 10.5 fL 9.8-13.0 NRBC/100 WBC (test code = 2984206329) 0.0 0.0-10.0 NRBC x10^3 (test code = 6761789360) See_Comment [Automated messa ge] The system which generated this result transmitted reference range: 10*3/?L. The reference range was not used to interpret this result as normal/abnormal. GRAN MAT (NEUT) % (test code = 770-8) 68.1 % IMM GRAN % (test code = 2742968118) 0.80 % LYMPH % (test code = 736-9) 20.3 % MONO % (test code = 5905-5) 9.3 % EOS % (test code = 713-8) 1.1 % BASO % (test code = 706-2) 0.4 % GRAN MAT x10^3(ANC) (test code = 3630582573) 5.06 10*3/uL 1.99-6.95 IMM GRAN x10^3 (test code = 5007260576) 0.06 10*3/uL 0.00-0.06 LYMPH x10^3 (test code = 731-0) 1.51 10*3/uL 1.09-3.23 MONO x10^3 (test code = 742-7) 0.69 10*3/uL 0.36-1.02 EOS x10^3 (test code = 711-2) 0.08 10*3/uL 0.06-0.53 BASO x10^3 (test code = 704-7) 0.03 10*3/uL 0.01-0.09 Lab Interpretation (test code = 60525-9) Abnormal [facility]. Metabolic Panel (15746)2024-02-10 18:23:57* Test Item Value Reference Range Interpretation Comme nts NA (test code = 4155116955) 135 mmol/L 135-145 K (test code = 3558689032) 4.1 mmol/L 3.5-5.0 CL (test code = 6550504229) 100 mmol/L 98-108 CO2 TOTAL (test code = 3357302251) 27 mmol/L 23-31 AGAP (test code = 7213172076) 8 2-16 BUN (test code = 8601224301) 26 mg/dL 7-23 H GLUCOSE (test code = 6634297935) 209 mg/dL 70-110 H CREATININE (test code = 2160-0) 1.09 mg/dL 0.60-1.25 TOTAL BILI (test code = 8128705884) 1.0 mg/dL 0.1-1.1 CALCIUM (test code = 0050008426) 8.9 mg/dL 8.6-10.6 T PROTEIN (test code = 6531210898) 7.0 g/dL 6.3-8.2 ALBUMIN (test code = 0432347377) 3.5 g/dL 3.5-5.0 ALK PHOS (test code = 3839187579) 122 U/L 34-122 ALTv (test code = 1742-6) 30 U/L 5-50 AST(SGOT) (test code = 8743037902) 34 U/L 13-40 eGFR (test code = 90148-8) 73.0 mL/min/1.73m2 CKD-EPI eGFR (2020). Assuming creatinine has been stable day-to-day for at least three months, the eGFR indicates Category G2 (60 - 89 mL/min/1.73 m2) Lab Interpretation (test code = 58555-5) Abnormal [facility] with Ebdv2261-71-07 18:13:28* Test Item Value Reference Range Interpretation [...] 33.9 g/dL 31.2-35.0 RDW-SD (test code = 66990-4) 42.0 fL 38.5-51.6 RDW-CV (test code = 788-0) 12.9 % 12.1-15.4 PLT (test code = 777-3) 287 150-328 MPV (test code = 98265-8) 9.4 fL 9.8-13.0 L NRBC/100 WBC (test code = 7430223761) 0.0 0.0-10.0 NRBC x10^3 (test code = 1916203487) See_Comment [Automated messa ge] The system which generated this result transmitted reference range: 10*3/?L. The reference range was not used to interpret this result as normal/abnormal. GRAN MAT (NEUT) % (test code = 770-8) 77.5 % IMM GRAN % (test code = 8563740314) 1.10 % LYMPH % (test code = 736-9) 11.1 % MONO % (test code = 5905-5) 9.1 % EOS % (test code = 713-8) 0.9 % BASO % (test code = 706-2) 0.3 % GRAN MAT x10^3(ANC) (test code = 9414106484) 8.71 10*3/uL 1.99-6.95 H IMM GRAN x10^3 (test code = 6500095554) 0.12 10*3/uL 0.00-0.06 H LYMPH x10^3 (test code = 731-0) 1.25 10*3/uL 1.09-3.23 MONO x10^3 (test code = 742-7) 1.02 10*3/uL 0.36-1.02 EOS x10^3 (test code = 711-2) 0.10 10*3/uL 0.06-0.53 BASO x10^3 (test code = 704-7) 0.03 10*3/uL 0.01-0.09 Lab Interpretation (test code = 96986-4) [facility]normal [facility] [id number] 20:09:29FULL RESULT: Examination: CT HEAD WO CONTRAST on 02/09/2024 2:43 PM Clinical Indication: Dizziness Comparison: None Technique: Noncontrast imaging was obtained from base to vertex. Findings: The sulciand ventricles were unremarkable. There was no evidencefor mass lesion, hemorrhage, or underlying ed michelle. There is mild whitematter hypodensity compatible with microvascular ischemic change. There were no bony, sinonasal or skull base lesions.[facility] 3 [id number] 15:24:42EXAM: XR LUMBAR SPINE 3 VW HISTORY: [...] innormal alignment. The intervertebral disc spaces are preserved.[facility] ABDOMEN PELVIS WO [id number] 19:42:33HISTORY: ?flank pain with right side swelling COMPARISON:none TECHNIQUE:CT scan of the abdomen and pelvis performed. Contiguous axial CT imageswere obtained without administration of intravenous contrast. ?CT scan doneaccording to [facility]. Technical quality: Technical quality: adequate. FINDINGS: Liver, gallbladder, bile ducts unremarkable. Pancreas atrophic. Spleen normal in size. No adrenal nodule. No renal stones. Doses. Urinary bladder decompressed. No bowel obstruction. Diverticulosis present without diverticulitis. The appendix is normal. No retroperitoneal or mesenteric adenopathy is seen. Inflammatory change in the left upper quadrant involving the omentum. Mostcompatible with omental infarct. No acute bony abnormality.[facility]. Metabolic Panel (18149)2024-01-30 17:18:01* Test Item Value Reference Range Interpretation Comme nts NA (test code = 4860786003) 139 mmol/L 135-145 K (test code = 7687690369) 3.6 mmol/L 3.5-5.0 CL (test code = 9933860426) 107 mmol/L 98-108 CO2 TOTAL (test code = 7065365805) 27 mmol/L 23-31 AGAP (test code = 3080575134) 5 2-16 BUN (test code = 6601004725) 27 mg/dL 7-23 H GLUCOSE (test code = 0626462822) 118 mg/dL 70-110 H CREATININE (test code = 2160-0) 0.99 mg/dL 0.60-1.25 TOTAL BILI (test code = 3198114941) 0.4 mg/dL 0.1-1.1 CALCIUM (test code = 5190702044) 8.6 mg/dL 8.6-10.6 T PROTEIN (test code = 3445730498) 6.8 g/dL 6.3-8.2 ALBUMIN (test code = 9059241054) 3.6 g/dL 3.5-5.0 ALK PHOS (test code = 4565113603) 105 U/L 34-122 ALTv (test code = 1742-6) 23 U/L 5-50 AST(SGOT) (test code = 7913037688) 27 U/L 13-40 eGFR (test code = 62839-1) 81.9 mL/min/1.73m2 CKD-EPI eGFR (2020). Assuming creatinine has been stable day-to-day for at least three months, the eGFR indicates Category G2 (60 - 89 mL/min/1.73 m2) Lab Interpretation (test code = 33167-4) Abnormal [facility] with [id number] 16:52:14* Test Item Value Reference Range Interpretation [...] 33.3 g/dL 31.2-35.0 RDW-SD (test code = 39578-3) 42.9 fL 38.5-51.6 RDW-CV (test code = 788-0) 13.2 % 12.1-15.4 PLT (test code = 777-3) 290 150-328 MPV (test code = 44463-1) 9.9 fL 9.8-13.0 NRBC/100 WBC (test code = 4661600279) 0.0 0.0-10.0 NRBC x10^3 (test code = 6859520757) See_Comment [Automated messa ge] The system which generated this result transmitted reference range: 10*3/?L. The reference range was not used to interpret this result as normal/abnormal. GRAN MAT (NEUT) % (test code = 770-8) 74.8 % IMM GRAN % (test code = 2378663871) 0.90 % LYMPH % (test code = 736-9) 14.7 % MONO % (test code = 5905-5) 7.8 % EOS % (test code = 713-8) 1.2 % BASO % (test code = 706-2) 0.6 % GRAN MAT x10^3(ANC) (test code = 2853432897) 7.72 10*3/uL 1.99-6.95 H IMM GRAN x10^3 (test code = 6735336087) 0.09 10*3/uL 0.00-0.06 H LYMPH x10^3 (test code = 731-0) 1.52 10*3/uL 1.09-3.23 MONO x10^3 (test code = 742-7) 0.81 10*3/uL 0.36-1.02 EOS x10^3 (test code = 711-2) 0.12 10*3/uL 0.06-0.53 BASO x10^3 (test code = 704-7) 0.06 10*3/uL 0.01-0.09 Lab Interpretation (test code = 16260-9) [facility]normal [facility] 3 [id number] 19:03:44 HISTORY: ?Low back pain. FINDINGS: AP, [...] degenerative disc disease at L2-L3, L3-L4, L4-L5. [facility], Radiant Results Inft User - 02/16/2020 2:04 [...] ofmild degenerative disc disease at L2-L3, L3-L4, L4-L5.[facility]POCT Krcuzfz1801-02-99 13:50:00* Test Item Value Reference Range Interpretation Comme nts POCT Glu (age>30days) (test code = 3342) 181 mg/dL 70-110 A Lab Interpretation (test cod e = 95427-2) Abnormal [facility] Consult Notes Date/Time Note Provider Source 2024-08-24 13:51:19 Associated Order(s): CONSULT TAG PRESS OPERATOR-ADULT Patient refused residential placement. 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 Stroke 2017 Type 2 diabetes mellitus with vascular disease 10/12/2019 Upper respiratory tract infection, unspecified type 10/12/2019 PSH: Past Surgical History: Procedure Laterality Date COLONOSCOPY N/A 12/30/2019 Surgeon: Glo Finn MD; Location: [facility] CORNEAL TRANSPLANT,LAMELLAR Bilateral KNEE ARTHROSCOPY 1998 OTHER PENETRATING KERATOPLASTY PHACOEMULSIFICATION OF CATARACT WITH INTRAOCULAR LENS IMPLANT Right 03/17/2019 Surgeon: Virgil Martinez MD; Location: [facility] [place] Prior Living Situation: is homeless DME: Rolling Walker Prior level of Mobility: ambulates with rolling Walker. Suspected ischemic or hemorraghic stroke:No Subjective: Pt with complaints of 10/10 pain on B/L LE Patient/Family Goals: To get better Patient/Family verbalizes understanding of condition: Yes PAIN: -Pain rating before treatment: 10, After treatment: 10 COMMUNICATION Primary Language: [place] Able to Verbalize needs: Yes Vision:good; no [...] min Kevin Arevalo PT [place] Lic No. [id number] 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 Stroke 2017 Type 2 diabetes mellitus with vascular disease 10/12/2019 Upper respiratory tract infection, unspecified type 10/12/2019 Past Surgical History: Procedure Laterality Date COLONOSCOPY N/A 12/30/2019 Surgeon: Glo Finn MD; Location: [facility] CORNEAL TRANSPLANT,LAMELLAR Bilateral KNEE ARTHROSCOPY 1998 OTHER PENETRATING KERATOPLASTY PHACOEMULSIFICATION OF CATARACT WITH INTRAOCULAR LENS IMPLANT Right 03/17/2019 Surgeon: Virgil Martinez MD; Location: [facility] Current Facility-Administered Medications: amoxicillin-clavulanate (AUGMENTIN) 875-125 mg per tablet 1 tablet, 1 tablet, Oral, Q12H, Skip Lino MD, 1 tablet at 06/29/24 0756 NaCl 0.9% (NS) injection 10 mL, 10 mL, Slow IV Push, PRN, Kimmie Sandra, AGACNP Saline Bubble Study, 6 mL, Injection, [...] José Copeland MD, 20 mg at 06/29/24 0756 aspirin EC tablet 81 mg, 81 mg, Oral, DAILY, José Copeland MD, 81 mg at 06/29/24 0756 atorvastatin (LIPITOR) tablet 40 mg, 40 mg, Oral, QHS, José Copeland MD, 40 mg at 06/28/242009 furosemide (LASIX) tablet 20 mg, 20 mg, Oral, DAILY, José Copeland MD, 20 mg at 06/29/24 0756 gabapentin (NEURONTIN) capsule 100 mg, 100 mg, Oral, TID, José Copeland MD, 100 mg at 06/29/24 0756 insulin NPH (HUMULIN N) injection 20 Units, [...] Friends and Family: Not on file Attends [employer] Services: Not on file Active Member of [...] agree with continuing vancomycin as patient has gila river valve will continue this antibiotic for 6 weeks recommend to repeat echocardiogram after finishing the treatment. Diabetes mellitus Anemia of chronic disease PICC line in place Thank you for consult IM-INTERNAL MEDICINE STAFF [facility] 2024-06-27 14:09:49 Associated Order(s): CONSULT TAG PRESS OPERATOR-ADULT Referral submitted to Glo Wright for SNF placement. Awaiting determination. HAIDER Munoz Software Systems Architect - Care Management [facility] [phone] [email or web address] 2024-06-27 11:15:00 Associated Order(s): CONSULT VASCULAR ACCESS [facility] PICC LINE CONSULT 69 year old male Indication/Diagnosis: lobsterman antibiotics See procedure note. 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 Stroke 2017 Type 2 diabetes mellitus with vascular disease 10/12/2019 Upper respiratory tract infection, unspecified type 10/12/2019 PSH: Past Surgical History: Procedure Laterality Date COLONOSCOPY N/A 12/30/2019 Surgeon: Glo Finn MD; Location: [facility] OR Location CORNEAL TRANSPLANT,LAMELLAR Bilateral KNEE ARTHROSCOPY 1999 OTHER PENETRATING KERATOPLASTY PHACOEMULSIFICATION OF CATARACT WITH INTRAOCULAR LENS IMPLANT Right 03/17/2019 Surgeon: Virgil Martinez MD; Location: [facility] OR Formerly [facility] Prior Living Situation: is homeless DME: Rolling [...] treatment: does not rate COMMUNICATION Primary Language: [place] Able to Verbalize needs: Yes Vision:good; no [...] min Kevin Arevalo PT [place] Lic No. [id number] 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 Stroke 2017 Type 2 diabetes mellitus with vascular disease 10/12/2019 Upper respiratory tract infection, unspecified type 10/12/2019 Past Surgical History: Procedure Laterality Date COLONOSCOPY N/A 12/30/2019 Surgeon: Glo Finn MD; Location: [facility] CORNEAL TRANSPLANT,LAMELLAR Bilateral KNEE ARTHROSCOPY 1999 OTHER PENETRATING KERATOPLASTY PHACOEMULSIFICATION OF CATARACT WITH INTRAOCULAR LENS IMPLANT Right 03/17/2019 Surgeon: Virgil Martinez MD; Location: [facility] Family History Problem Relation Age of Onset Cancer Mother Liver Cancer Father lung SOCIAL HISTORY Social History Socioeconomic History Marital status: Tobacco Use Smoking status: Never Smokeless tobacco: Never Substance and Sexual Activity Alcohol use: No Drug use: No ALLERGIES No Known Allergies MEDICATIONS Current Discharge Medication List STOP taking these medications cephALEXin 500 mg capsule Comments: Reason for Stopping: tzinewqt-arshvyvxnf-obsuavkmm 3.5mg-400 unit- 5,000 unit/gram topical ointment Comments: [...] 1/2" Syrg Comments: Reason for Stopping: Insulin Gustine, Disposable, (PHUC PEN NEEDLE) 32 gauge x [...] (!) 162/81 Pulse: 68 67 63 Resp: Temp: 36.9 ?C (98.4 ?F) 37.2 ?C [...] Ordering referrals and/or communicating with other health acute care certified nursing assistant (when not separately reported), Documenting clinical information in the electronic or other health record, and Independently interpreting results (not separately reported) and/or communicating results to the patient/family/caregiver. Keep up with basic health maintenance including an annual physical examination with your primary physician, appropriate vaccinations (influenza, pneumonia, new shingles vaccination), and other appropriate testing (e.g. EGD, colonoscopy etc). This report was dictated using Viyet and is subject to voice recognition errors. Please excuse any unusual inaccuracies. Thank you for allowing us to participate in the care of Raj Morales. If you have any questions or concerns please feel free to call our office at [phone]. I would be happy to be of further assistance for Raj Morales wellbeing. Voice recognition software has been used to create portions of this document. An attempt to proofread has been made to minimize errors. Please do not hesitate to call with any questions. Alina Edouard MD Robotype Operator, Division of Cardiology [facility] T [facility] - Health History and Physical Notes Date/Time Note Provider Source 2024-08-23 20:52:46 MEDICINE [facility] ADMIT H&P Date of Service: 08/23/2024 CHIEF COMPLAINT: confusion, low blood glucose Subjective History of Present Illness 69 yo obese male with pmh of DM, foot cellulitis, HLD, HTN, CVA, MRSA bacteremia, infective endocarditis, E.coli UTI who presents to the ED secondary to low blood sugar. He was found in the [email or web address] parking lot by bystander. 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 Stroke 2017 Type 2 diabetes mellitus with vascular disease 10/12/2019 Upper respiratory tract infection, unspecified type 10/12/2019 Past Surgical History: Procedure Laterality Date COLONOSCOPY N/A 12/30/2019 Surgeon: Glo Finn MD; Location: [facility] OR Formerly [facility] CORNEAL TRANSPLANT,LAMELLAR Bilateral KNEE ARTHROSCOPY 1998 OTHER PENETRATING KERATOPLASTY PHACOEMULSIFICATION OF CATARACT WITH INTRAOCULAR LENS IMPLANT Right 03/17/2019 Surgeon: Virgil Martinez MD; Location: [facility] OR Formerly [facility] Family History Problem Relation Age of Onset [...] tablet 0 lancets (TRUEPLUS LANCETS) 33 gauge [facility] Monitor Blood Glucose daily 300 Each 1 simvastatin 40 mg tablet Take 1 tablet by mouth at bedtime. 90 tablet 0 metFORMIN 1,000 mg tablet Take 1 tablet by mouth 2 (two) times daily with meals. 60 tablet 5 Insulin Syringe-Needle U-100 1 mL 27 gauge x 1/2" Syrg Use as directed 200 Syringe 5 Insulin Gustine, Disposable, (PHUC PEN NEEDLE) 32 gauge x [...] at bedside. 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 Stroke 2017 Type 2 diabetes mellitus with vascular disease 10/12/2019 Upper respiratory tract infection, unspecified type 10/12/2019 PAST SURGICAL HISTORY Past Surgical History: Procedure Laterality Date COLONOSCOPY N/A 12/30/2019 Surgeon: Glo Finn MD; Location: [facility] OR [facility]ly [facility] CORNEAL TRANSPLANT,LAMELLAR Bilateral KNEE ARTHROSCOPY 1998 OTHER PENETRATING KERATOPLASTY PHACOEMULSIFICATION OF CATARACT WITH INTRAOCULAR LENS IMPLANT Right 03/17/2019 Surgeon: Virgil Martinez MD; Location: [facility] OR [facility]ly [facility] ALLERGIES No Known Allergies MEDICATIONS Current home medication list reviewed: Current Discharge Medication List STOP taking these medications cephALEXin 500 mg capsule Comments: Reason for Stopping: jsigahmk-mglrfrnpot-dbhbhxccw 3.5mg-400 unit- 5,000 unit/gram topical ointment Comments: [...] 1/2" Syrg Comments: Reason for Stopping: Insulin Gustine, Disposable, (PHUC PEN NEEDLE) 32 gauge x [...] Patient may need to go to a [facility] facility for a little while along with [...] given high risk of morbidity and mortality. [facility] was verified during stay José Copeland MD IM-INTERNAL MEDICINE STAFF [facility] - Health Procedure Notes Date/Time Note Provider Source 2024-06-27 11:15:00 Vascular Access Services Date of Service: 06/27/24 Patient location: [place] [address] Placed by: Adilson Lees RN 69 year old male. Indication/Diagnosis: custodial antibiotics Consent: indications/complications discussed; verbal consent obtained from patient and indications/complications discussed; written consent obtained from patient Education provided to patient, including pros and cons of PICC insertion. Questions encouraged and answered accordingly. According to [facility] Operating Procedures Policy, a Time Out was [...] area. Chest x-ray: ordered and pending REF#: [id number] Lot #: [id number] Exp Date: 03/22/25 Adilson Lees RN [facility] - Health Notes Date/Time Note Provider Source 2024-12-28 07:28:05 Pt given printed and verbal discharge instructions regarding abrasion of left knee, contusion of left knee, fall, encouraged hydration. Prescriptions provided. Discussed ibuprofen and to take with food to avoid GI distress. Pt verbalized understanding of instructions, pt awake alert oriented, resp reg unlabored, skin w/d, color appropriate for race, moves all ext well,pt encouraged to follow up with pcp. Advised to seek medical attention for new/prolonged/worsening of symptoms. No adverse reaction to meds given in ER noted upon discharge. Awake, alert oriented, resp reg unlabored, skin w/d, pt leaving amb with steady gait, in no apparent distress. DENTIAL SUPPORT SPECIALIST Desire Panchal RN [facility] 2024-12-28 06:21:44 CC: trip and fall around 5:45AM. Patient c/o bilateral knee pain, has abrasions on L leg. Patient denies injury to head, no blood thinners. EMS gave 500MG Tylenol [facility] 2024-12-21 12:24:26 Pt called from lobby, no response. Pt left before receiving discharge instructions. ON Gallegos RN [facility] 2024-12-21 11:16:55 Reported fall off of walker, no injuries, no complaints of pain. Patient reporting to EMS that he just wants a new walker. Ambulatory, vitally stable. HX: DM. DENTIAL SUPPORT SPECIALIST Tiara Bentley RN [facility] 2024-08-26 15:22:27 TRANSITIONAL CARE MANAGEMENT ASSESSMENT 08/26/2024 Raj Morales [id number] Raj Morales is a 69 year old /White male was admitted on 08/23/[address] [facility] ICU. He was discharged on 08/25/24 with discharge disposition of HR- Routine Discharge. Admitting Physician: Raj Garcia Discharge Diagnosis: Principal Diagnosis: Hypoglycemia No linked episodes TCM Oil-dxsp-bc-face outreach documentation: CM made follow up call to patient post-discharge. No answer and call went to voicemail. CM left a discreet message with purpose of call and CM's call back information. Two attempts made to reach patient. Discharge Assessment Chart Assessed: 08/26/24 TCM Outreach Completed: 08/26/24 Future Appointments: lifford Fallon RN [facility] 2024-08-26 12:00:32 CM made follow up call to patient post-discharge. No answer and call went to voicemail. CM left a discreet message with purpose of call and CM's call back information. [facility] 2024-08-25 12:51:46 Problem: Falls, Risk of Goal: [...] Not progressing as expected Sofi Auguste RN [facility] [employer] 2024-08-25 07:16:04 Problem: Falls, Risk of Goal: [...] specified parameters Outcome: Not progressing as expected [facility] [employer] 2024-08-24 22:19:08 Problem: Falls, Risk of Goal: [...] Outcome: Progressing as expected Kamilla Prajapati RN [facility] 2024-08-24 08:52:09 Problem: Falls, Risk of [...] within specified parameters Outcome: Progressing as expected Dayana Jenkins RN [facility] 2024-08-23 23:13:25 Problem: Falls, Risk of [...] parameters Outcome: Progressing as expected [facility] 2024-08-23 15:41:50 Problem: Falls, Risk of [...] (Risk) Outcome: Progressing as expected [facility] 2024-08-23 14:57:39 Patient admitted to ICU 2101 for diagnosis of Hypoglycemia Patient agrees to admission, discussed plan of care with patient and family. Patient is awake, alert, oriented, resp reg unlabored, color appropriate for race, PIV intact No adverse reaction to medications administered while in ED Belongings with patient to unit [facility] 2024-08-23 14:52:51 Nurse Report Report given to field horticultural specialty grower. Chief complaint, assessment findings, infusion verify and orders reviewed. Plan of care discussed. Patient/family members verbalized understanding. Josselin Saldivar RN [facility] 2024-08-23 09:11:44 EMS [place] [facility] [place] and was seen on the ground by bystanders who called 911. The fall was unwitnessed. Pt has abrasions to head and right knee. Complains of left knee pain and does not remember anything from the fall. Bg was 33 when ems arrived. [facility] [employer] 2024-08-23 09:09:00 [facility] Emergency Department Note Patient Name: Raj Morales Date of : 1955 69 year old male Treatment Room: Primary Care Physician: PATIENT DOES NOT HAVE A PCP Patient Escorted by: Self [9] Mode of Arrival: Personal means [1] EMS Treatment Prior to ED Arrival: NEWBORN HEARING SCREENER treatment: Other (comment) NEWBORN HEARING SCREENER treatment comments: D10 rac 20g Travel and [...] 12/01/2019 Added automatically from request for surgery [id number] Dyslipidemia Edema of both legs 02/28/2020 Erectile [...] N/A 12/30/2019 Surgeon: Glo Finn MD; Location: [facility] CORNEAL TRANSPLANT,LAMELLAR Bilateral KNEE ARTHROSCOPY 1998 OTHER PENETRATING KERATOPLASTY PHACOEMULSIFICATION OF CATARACT WITH INTRAOCULAR LENS IMPLANT Right 03/17/2019 Surgeon: Virgil Martinez MD; Location: [facility] Review of Systems: Review of Systems Unable [...] 0.01 - 0.09 10*3/uL COMP. METABOLIC PANEL (26021) - Abnormal NA 136 135 - 145 [...] - Normal MRSA / MSSA SCREEN BY HAILY GASTELUM EKG: If EKG completed, see Procedure Note. Orders and Treatments: Orders Placed This Encounter Procedures POCT GLUCOSE (AUTOMATED) Cbc with Diff Comp. Metabolic Panel (92248) Lactic Acid Whole Blood Lactic Acid Whole Blood VBG+VCOOX+NA+K+GLU+CA2+ POCT GLUCOSE (AUTOMATED) POCT GLUCOSE (AUTOMATED) POCT GLUCOSE(AGE >30DAYS) POCT GLUCOSE (AUTOMATED) MRSA / MSSA Screen by Haily GASTELUM POCT Glucose (Age >30 Days) POCT GLUCOSE [...] -- ED COURSE Diagnosis/Impression as of 08/23/24 172 Hypoglycemia Procedures: Procedures MDM: Medical Decision Making [...] 1/2" Syrg Comments: Reason for Stopping: Insulin Gustine, Disposable, (PHUC PEN NEEDLE) 32 gauge x [...] Follow-up: Electronically signed by: David Paul DO 08/23/241723 [facility] 2024-07-04 11:03:58 TRANSITIONAL CARE MANAGEMENT ASSESSMENT 07/04/2024 Raj Morales [id number] Raj Morales is a 69 year old /White male was admitted on 06/23/[address] [facility] SURG. He was discharged on 07/01/24 with discharge disposition of HR- Routine Discharge. 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 Hx HTN Hx HLD Hx IDDM w/ peripheral neuropathy Hypomagnesemia resolved 1.7 No linked episodes TCM Zff-nemp-zb-face outreach documentation: Discharge Assessment Chart Assessed: 07/04/24 Chart Reviewed - Post Discharge Call Deferred due to Change in Discharge Status.: Discharged to SNF (SNF location: [address] () [phone] () [phone]) TCM Outreach Completed: 07/04/24 Future Appointments: Martell Fallon RN [facility] 2024-07-01 15:47:57 Problem: Falls, Risk of [...] Outcome: Adequate for discharge Homa More RN [facility] 2024-06-30 16:53:03 Problem: Falls, Risk of [...] Outcome: Progressing as expected Kera Mcfadden RN [facility] 2024-06-29 23:46:25 Problem: Falls, Risk of [...] Outcome: Progressing as expected Parvin Mcconnell RN [facility] 2024-06-29 06:23:30 Problem: Falls, Risk of [...] Absence of infection Outcome: Progressing as expected Jsesica Williamson RN [facility] 2024-06-28 19:05:35 Problem: Falls, Risk of [...] Outcome: Progressing as expected Martha White RN [facility] 2024-06-28 02:17:10 Problem: Falls, Risk of [...] of infection Outcome: Progressing as expected T [facility] 2024-06-27 16:18:42 Problem: Falls, Risk of [...] Outcome: Progressing as expected Anne Cisneros RN [facility] 2024-06-27 09:23:43 Vancomycin Therapeutic Monitoring Note Pharmacy to monitor vancomycin dosing for patient Raj Morales, [id number]. Primary Physician: Dr. Tru EDMONDSON Physician, if following: N/A Indication for Vancomycin [...] with any questions or concerns. Azar Ugarte PharmValente, [facility] Pager: [phone] Azar Ugarte [facility] 2024-06-27 01:59:04 Problem: Falls, Risk of Goal: [...] Absence of infection Outcome: Progressing as expected [facility] 2024-06-26 09:56:06 Problem: Falls, Risk of [...] of infection Outcome: Progressing as expected T Libby Judge RN [facility] 2024-06-26 05:59:09 Problem: Falls, Risk of [...] Outcome: Progressing as expected Kamilla Prajapati RN [facility] 2024-06-25 18:13:35 Problem: Falls, Risk of Goal: [...] infection Outcome: Progressing as expected [facility] 2024-06-25 11:38:31 Summary: Vancomycin Monitoring Vancomycin Therapeutic Monitoring Note Pharmacy to monitor vancomycin dosing for patient Raj Morales, [id number]. Primary Physician: Dr. Gacria ID Physician, if following: N/A Indication for [...] any questions or concerns. Ilene Marroquin PharmD, [facility] Pager: [phone] 06/25/2024 11:38 Ilene Marroquin [facility] 2024-06-25 01:01:18 Problem: Falls, Risk of Goal: [...] infection Outcome: Progressing as expected [facility] 2024-06-24 16:18:07 Problem: Falls, Risk of [...] Progressing as expected T Digna Rodriguez RN [facility] 2024-06-24 14:48:17 Summary: Vancomycin Monitoring Images from the original note were not included. Vancomycin Therapeutic Monitoring Note Pharmacy to monitor vancomycin dosing for patient Raj Morales, [id number]. Primary Physician: Dr. Garcia ID Physician, if [...] Marroquin RPH, RPH 06/24/2024 2:[address] [facility] Department of Pharmacy - [facility] Phone: ADC: [phone] [facility] 2024-06-23 23:49:41 Problem: Falls, Risk of [...] Outcome: Progressing as expected Enrique Dumont RN [facility] 2024-06-23 15:52:58 Patient admitted to [facility] for diagnosis of bacteremia, fall. Patient agrees to admission, discussed plan of care with patient and family. Patient is awake, A&Ox4, RR even and unlabored on RA. Color appropriate for race. PIV intact x1. No adverse reaction to medications administered while in ED. Belongings with patient to unit. Justine Peres RN [facility] 2024-06-23 15:14:29 Nurse Report Report given to SIXTO Sawyer. Chief complaint, assessment findings, infusion verify and orders reviewed. Plan of care discussed at bedside with patient and both nurses. Patient/family members verbalized understanding. Justine Peres RN [facility] 2024-06-23 11:27:44 Patient arrived by [place] [facility] for a fall. EMS reports patient fell off his walker, and the hit the left side of his head. No LOC. BGL 285. Patient is awake and alert, oriented x4. Contusion noted to the left side of the head. Quinn Moyer RN [facility] 2024-06-23 11:25:00 AdmissionCare Guideline: Sepsis (and [...] performed) AdmissionCare documentation entered by: Juno Hwang [facility], 28th edition, Copyright ? 2023 [employer] [facility] All Rights Reserved. [id number] [facility] 2024-06-20 12:48:08 Pt given printed and [...] in no apparent distress. Elsa White RN [facility] 2024-06-20 10:53:49 Patient arrived ambulatory via pov, states he was sent here for positive blood cultures. Patient c/o of abrasion to left chest/axilla area. Patient does not know which DrNeri referred him here Zarina Mandujano RN [facility] 2024-06-20 10:52:00 Images from the original note were not included. [facility] Emergency Department Note Patient Name: Raj Morales Date of : 1955 69 year old male Treatment Room: [facility] ED [facility] PEGGY/KIRSTEN Primary Care Physician: PATIENT DOES NOT HAVE [...] and DC Home. 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) 10/12/2019 Cataract OS ONLY Cellulitis of foot, left 04/12/2020 Diabetes Diabetic eye exam 12/01/2019 Added automatically from request for surgery [id number] Dyslipidemia Edema of both legs 02/28/2020 Erectile [...] N/A 12/30/2019 Surgeon: Glo Finn MD; Location: [facility] OR [facility] CORNEAL TRANSPLANT,LAMELLAR Bilateral KNEE ARTHROSCOPY 1999 OTHER PENETRATING KERATOPLASTY PHACOEMULSIFICATION OF CATARACT WITH INTRAOCULAR LENS IMPLANT Right 03/17/2019 Surgeon: Virgil Martinez MD; Location: [facility] Review of Systems: Review of Systems Constitutional: [...] capsule 1,000 mg cephALEXin 500 mg capsule pzesszgd-otjiranevj-ifheucjuu 3.5mg-400 unit- 5,000 unit/gram topical ointment First [...] capsule by mouth 4 (four) times daily. NSFYGEZJ-QFITCADWOO-YGQUOVVLX 3.5MG-400 UNIT- 5,000 UNIT/GRAM TOPICAL OINTMENT Apply [...] as directed LANCETS (TRUEPLUS LANCETS) [address] [facility] Monitor Blood Glucose daily LISINOPRIL-HYDROCHLOROTHIAZIDE 10-12.5 MG PER TABLET Take 1 tablet by mouth once daily METFORMIN 1,000 MG TABLET Take 1 tablet by mouth 2 (two) times daily with meals. MISCELLANEOUS MEDICAL SUPPLY [facility] E11.8: dispense Insulin Syringe [...] signed by: Mulugeta Palma MD 06/20/24 1210 [facility] 2024-06-19 18:04:26 Patient given printed and [...] in no apparent distress. Jose Brooks RN [facility] 2024-06-19 16:31:13 Finished sandwich, chocolate pudding, half a jello cup and 2 packages of gram crackers. Patient fed him self independently. Tolerated well. T [facility] 2024-06-19 16:07:28 Provided patient with sandwich, jello, crackers and pudding. Patient swallowing well. Able to feed self independently. T [facility] 2024-06-19 13:45:00 Patient asked nurse "why are all the kids doing this" (makes hand sign), when nurse clarifies with patient states "there are 2 girls in my room, sitting there and and there (points to empty chairs) and they just crawled under my bed". T [facility] 2024-06-19 13:34:00 Patient arrived covered/soaked in urine. Tech and nurse cleaned patient and placed in clean gown. [facility] 2024-06-19 12:34:00 [facility] states: "Came in for chronic bodyaches for 3 years. No new complaints, BGL of 92 mg/dL." Patient states he falls everyday and that he fell today, no idea what time it happened. Patient not sure if the bruise/abrasion on his forehead is from today's fall or not. T Desire Panchal RN [facility] 2024-06-16 19:54:51 Pt given printed and [...] find transportation home, in no apparent distress [facility] 2024-06-16 18:10:23 Pt presents to ED via [facility] for a fall from standing. EMS states that he tripped on walker. Pt has an abrasion to the forehead and no other c/o. No LOC, and denies dizziness. Hx of stroke Jame Sharp RN [facility] 2024-06-16 00:29:11 Pt discharged with diagnosis of fall from standing, right leg swelling, balance problem, encouraged hydration. Printed and verbal instructions reviewed with and given to pt. Pt. verbalized understanding of teaching and recommended follow-up. Denies questions or concerns at this time. Pt wheeled out to lobby at discharge. Appears in no apparent distress. breast worker was consulted, pt will be in waiting room until enrollment consultant arrives. Advised to seek medical attention for new/prolonged/worsening of symptoms. No adverse reaction to meds given in ER noted upon discharge PIV d'cd, dressing to site, catheter in tact. Mel Obando RN [facility] 2024-06-15 23:32:56 Pt was given hygiene supplies and clothes and directed to the shower to take shower and freshen up due to no means to do so. Pt is "homeless". Pt was also given snacks [facility] 2024-06-15 18:07:43 Pt uses a walker to ambulate [facility] 2024-06-15 18:00:18 Pt [facility] with c/o fall and edema to BLE. Pt reports "it feels like my equilibrium is off". Pt has a strong odor of urine. Hemalatha Saini RN [facility] 2024-06-15 17:52:00 Images from the original note were not included. [facility] Emergency Department Note Patient Name: Raj Morales Date of : 1955 69 year old male Treatment Room: GA5/GA5 Primary Care Physician: PATIENT DOES NOT HAVE A PCP Patient Escorted by: Self [9] Mode of Arrival: EMS - [facility] ([place]) [43] EMS Treatment Prior to ED Arrival: NEWBORN HEARING SCREENER treatment: IVF;Saline lock Travel and Exposure Screening: [...] 12/01/2019 Added automatically from request for surgery [id number] Dyslipidemia Edema of both legs 02/28/2020 Erectile [...] N/A 12/30/2019 Surgeon: Glo Finn MD; Location: [facility] CORNEAL TRANSPLANT,LAMELLAR Bilateral KNEE ARTHROSCOPY 1999 OTHER PENETRATING KERATOPLASTY PHACOEMULSIFICATION OF CATARACT WITH INTRAOCULAR LENS IMPLANT Right 03/17/2019 Surgeon: Virgil Martinez MD; Location: [facility] Review of Systems: Review of Systems Cardiovascular: [...] 0.01 - 0.09 10*3/uL COMP. METABOLIC PANEL (52855) - Abnormal NA 136 135 - 145 [...] CONTRAST Cbc with Diff Comp. Metabolic Panel (11432) Lactic Acid Whole Blood Lactic Acid Whole [...] as directed LANCETS (TRUEPLUS LANCETS) [address] [facility] Monitor Blood Glucose daily LISINOPRIL-HYDROCHLOROTHIAZIDE 10-12.5 MG PER TABLET Take 1 tablet by mouth once daily METFORMIN 1,000 MG TABLET Take 1 tablet by mouth 2 (two) times daily with meals. MISCELLANEOUS MEDICAL SUPPLY [facility] E11.8: dispense Insulin Syringe [...] these medications No medications on file Follow-up: [facility] 2024-04-06 05:25:21 Pt given printed and [...] leaving by wheelchair, in no apparent distress. T [facility] 2024-04-06 01:49:35 Pt [facility] by [facility] for wound on right foot and elevated blood sugar. EMS reports pt's blood glucose was 580 Milli Lopez RN [facility] [employer] 2024-04-06 01:31:00 Images from the original note were not included. [facility] Emergency Department Note Patient Name: Raj Morales Date of : 1955 69 year old male Treatment Room: TX6/GA6 Primary Care Physician: PATIENT DOES NOT HAVE A PCP Patient Escorted by: Self [9] Mode of Arrival: EMS - [facility] ([place]) [43] EMS Treatment Prior to ED Arrival: NEWBORN HEARING SCREENER treatment: shelter monitor;FSBG;IVF;Saline lock Travel and Exposure Screening: Symptoms [...] of Present Illness: History provided by: Patient freight breaker used: No Foot Pain Location: Foot Time [...] 12/01/2019 Added automatically from request for surgery [id number] Dyslipidemia Edema of both legs 02/28/2020 Erectile [...] N/A 12/30/2019 Surgeon: Glo Finn MD; Location: [facility] CORNEAL TRANSPLANT,LAMELLAR Bilateral KNEE ARTHROSCOPY 1999 OTHER PENETRATING KERATOPLASTY PHACOEMULSIFICATION OF CATARACT WITH INTRAOCULAR LENS IMPLANT Right 03/17/2019 Surgeon: Virgil Martinez MD; Location: [facility] Review of Systems: Review of Systems Constitutional: [...] 0.01 - 0.09 10*3/uL COMP. METABOLIC PANEL (41079) - Abnormal NA 126 (*) 135 - [...] (AUTOMATED) Cbc with Diff Comp. Metabolic Panel (96308) Magnesium Urinalysis POCT GLUCOSE (AUTOMATED) POCT GLUCOSE [...] with instructions to follow up at the [facility] within 3 days for wound [...] tablet by mouth daily. INSULIN NEEDLES, DISPOSABLE, (PHCU PEN NEEDLE) 32 GAUGE X 5/32" NDLE Use as directed INSULIN NPH (HUMULIN N NPH U-100 INSULIN) 100 UNIT/ML INJECTION INJECT 35 UNITS SUBCUTANEOUSLY EVERY MORNING AND EVENING. Office visit needed for further refills. INSULIN SYRINGE-NEEDLE U-100 1 ML 27 GAUGE X 1/2" SYRG Use as directed LANCETS (TRUEPLUS LANCETS) [address] [facility] Monitor Blood Glucose daily LISINOPRIL-HYDROCHLOROTHIAZIDE 10-12.5 MG PER TABLET Take 1 tablet by mouth once daily METFORMIN 1,000 MG TABLET Take 1 tablet by mouth 2 (two) times daily with meals. [facility] E11.8: dispense Insulin Syringe [...] signed by: Mulugeta Palma MD 04/06/24 0351 [facility] 2024-04-03 17:51:06 Pt given printed and [...] noted upon discharge and exit from ED. [facility] 2024-04-03 17:21:48 Images from the original note were not included. ER [employer] note: 04/03/2024 5:21 PM Met with the patient in room. Patient Aox4. [place] [address]. The patient was provided with cab voucher # [id number] Contacted [employer] [phone] Richard Maurer PhD, MALTED MILK MIXER, LCDC Care Management- Social Work Department of Care Management The [address] [place] [address] O [phone] E [email or web address] Richard GRAVES [facility] 2024-04-03 16:49:23 Dc after fluids [facility] 2024-04-03 16:45:00 PT much more awake and alert. Pt provided with taxi voucher, food tray given. [facility] 2024-04-03 15:18:54 Orthostatics 3:19 PM Lying: BP: 158/88 P: 87 Sitting: BP: 130/77 P: 86 Standing: BP: 126/71 P: 82 [facility] 2024-04-03 14:51:50 Images from the original note were not included. ER [employer] Software Systems Architect note: 04/03/2024 2:51 PM RENEE met with the patient at the bedside. Initially, the patient was drowsy and unable to answer most questions. However, he expressed readiness to move to a personal long term and was willing to pay for it. RENEE contacted Ms. Weiss from [facility] ( ) and Madhavi Abraham ( ), who explained the financial requirements for staying at their personal care homes. They said he needed to pay a bit upfront and use some of his social security for the home. RENEE also spoke with Royer from [facility] and faxed clinicals for a pending Medicaid bed. Later, RENEE talked to Pan from [facility] about the referral made on [...] disagreed with the plan for a personal long term, stating he receives around $900 in social security benefits (contradicting his earlier statement of $1200 to $1400) and did not want to pay for his stay. He expressed a preference for going to a residential. RENEE contacted Grover, Coordinator Of Rehabilitation Services of the [facility], to secure a bed and discussed this with the patient. The patient agreed to go to the [facility] residential. RENEE informed him about a meeting with [facility] psychiatric social worker Destiny Prajapati Thursday morning. The patient expressed unawareness of the meeting, so RENEE requested him to answer the phone when [facility] SW calls. RENEE also emailed [facility] psychiatric social worker Destiny Prajapati regarding the situation, seeking her assistance. Richard Maurer PhD, MALTED MILK MIXER, DC Care Management- Social Work Department of Care Management The [address] , [place] [address] O [phone] E [email or web address] 2024-04-03 09:48:46 Pt to ED c/o [...] in lowest position. Call light within reach. [facility] 2024-04-03 09:40:55 Raj Morales is a 69 year old male presents to ED triage with chief compliant of falls. EMS states that he has had multiple falls today, patient has a small abrasions to L forehead.- blood thinners. AAOx4. Skin warm and dry. VSS. RR E/U. NAD noted. Roomed for eval Parvin José RN [facility] 2024-04-03 09:39:00 Associated Order(s): EKG-12 Lead ROUTINE ONCE Pre-Procedure Diagnose(s): Fall, initial encounter; Injury of head, initial encounter Post-Procedure Diagnose(s): Fall, initial encounter; Injury of head, initial encounter Images from the original note were not included. 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) 10/12/2019 Cataract OS ONLY Cellulitis of foot, left 04/12/2020 Diabetes Diabetic eye exam 12/01/2019 Added automatically from request for surgery [id number] Dyslipidemia Edema of both legs 02/28/2020 Erectile [...] N/A 12/30/2019 Surgeon: Glo Finn MD; Location: [facility] CORNEAL TRANSPLANT,LAMELLAR Bilateral KNEE ARTHROSCOPY 1998 OTHER PENETRATING KERATOPLASTY PHACOEMULSIFICATION OF CATARACT WITH INTRAOCULAR LENS IMPLANT Right 03/17/2019 Surgeon: Virgil Martinez MD; Location: [facility] Review of Systems: Review of Systems Constitutional: [...] but is agreeable to go to the [facility]. Will reassess shortly [CD] 1433 AMMONIA(!): <9 [...] subsequently to follow commands. The nurse from [facility] rehab was trying to assess the patient, [...] ED Physician in the absence of a job superintendent: yes Previous ECG: Previous ECG: Compared to [...] as directed LANCETS (TRUEPLUS LANCETS) [address] [facility] Monitor Blood Glucose daily LISINOPRIL-HYDROCHLOROTHIAZIDE 10-12.5 MG PER TABLET Take 1 tablet by mouth once daily METFORMIN 1,000 MG TABLET Take 1 tablet by mouth 2 (two) times daily with meals. [facility] E11.8: dispense Insulin Syringe [...] signed by: Nando Hagan MD 04/03/24 1651 [facility] 2024-03-31 19:41:41 Pt discharged to home. Discharge instructions given to pt regarding management of condition and instructions to follow up with PCP. Pt verbalized understanding. PIV removed without complications. Patient in possession of all belongings. Pt ambulates to lobby with steady gait. Kunal Joiner RN [facility] 2024-03-31 19:37:16 DISCHARGE HOLD: Pt requesting compression stockings. Materials management contacted. [facility] 2024-03-31 12:35:04 Raj Morales is a 69 year old male presenting to ED with c/o fall. Patient reports using walker and reports stepped off a curb and fell. Patient reports hitting head on ground but denies LOC. No use of blood thinners. BGL "HI" for EMS. Patient received 400cc NS NEWBORN HEARING SCREENER. BGL 526. Patient to green chairs due to ED saturation Shavon Linares RN [facility] 2024-03-29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
[2025-01-06 10:28] LABS: Absolute Lymphocytes (CBC) 0.9 K/uL (0.7-4.9); Absolute Monocytes 0.8 K/uL (0.1-1.3); Absolute Neutrophil 7.3 K/uL (1.8-8.0); Basophils % 0.3 % (0-1.3); Eosinophils % 0.3 % (0-4.4); Hemoglobin 12.7 g/dL (13.6-17.9); Lymphocytes % 9.6 % (15.3-44.8); MCH 29.2 pg (27.0-35.0); MCHC 34.3 g/dL (32.0-36.0); MCV 85.1 fL (80-100); MPV 7.5 fL (7.6-11.3); Monocytes % 8.7 % (3.3-12.3); Neutrophils % 81.1 % (41.7-73.7); Nucleated Red Blood Cells % 0.1 % (0-0); Platelets 279 thou/uL (152-406); RBC Red Blood Cell Count 4.35 M/uL (4.33-5.43); Red Cell Distribution Width 13.1 % (12.1-15.2)
--- NOTE | 2025-01-06 10:33 | RAD REPORT ---
EXAM: CT Head Brain Wo Cont HISTORY: GLF, disoriented COMPARISON: 09/27/2024 TECHNIQUE: Multiple contiguous axial images were obtained for a CT of the brain without contrast. Sag ittal and coronal reformats were performed. One or more of the following dose reduction techniques were used: Automated exposure control, adjus tment of the mA and kV according to patient size, and iterative reconstruction. Unless otherwise specified, incidental findings do not require dedicated imaging follow-up. FINDINGS: No evidence of hydrocephalus, intracranial hemorrhage, or extra-axial fluid collection. The brain is normal in morphology. The calvarium is intact. The visualized paranasal sinuses and mastoid air cells are essentially clear . IMPRESSION: No evidence of acute intracranial abnormality.
[2025-01-06 10:42] LABS: Anion Gap 9.3 mEq/L (5.0-15.0); Potassium 4.3 mEq/L (3.5-5.1); Troponin High Sensitivity 37.2 pg/mL (<58.9)
[2025-01-06] MEDS ORDERED: TDAP (DIPHTH,PERTUSS(ACELL),TET VAC) 0.5 ML VIAL IMVAC ONE (11:09)
--- NOTE | 2025-01-06 11:59 | RAD REPORT ---
EXAMINATION: ONE VIEW CHEST XR CLINICAL INDICATION: Male, 70 years old.,fall TECHNIQUE: Frontal chest projection is submitted. Examination is limited by patient positioning and t echnique. COMPARISON: 09/26/2024 FINDINGS: The lungs show mild central predominant bilateral opacities, although suboptimal inspiratory effort s omewhat limits evaluation. No pneumothorax or sizable effusion. The heart is normal in size. Mediastinal contours are unremarkable. IMPRESSION: Mild central predominant bilateral opacities could reflect central congestion or early pneumonitis. S uboptimal inspiratory effort limits evaluation.
--- NOTE | 2025-01-06 12:00 | RAD REPORT ---
EXAMINATION: XR PELVIS CLINICAL INDICATION: Male, 70 years old. [facility] MAIN glf injury Bed Name: 6 TECHNIQUE: AP Pelvis radiograph was obtained. COMPARISON: No prior exam. FINDINGS: No evidence of fracture or dislocation. Normal alignment. Bilateral moderate hip joint dege nerative changes. No evidence of AVN. Soft tissues are unremarkable. IMPRESSION: No acute or significant abnormalities.
[2025-01-06 12:22] LABS: Specific Gravity 1.023 (1.005-1.030); Sqamous Epithelial None Seen /HPF (None Seen); Urine Bacteria None Seen /HPF (<20); Urine Bilirubin NEGATIVE (Negative); Urine Blood Negative (Negative); Urine Clarity Turbid (Clear); Urine Color Light-Yellow (Yellow); Urine Culture Reflex Order NOT NEEDED; Urine Glucose 4+ (Over) (Negative); Urine Ketones TRACE (Negative); Urine Micro Reflex YN NO BILL MICROSCOPIC; Urine Nitrite NEGATIVE (Negative); Urine Protein TRACE (Negative); Urine RBC <5 /HPF (None Seen); Urine Urobilinogen Normal (Normal); Urine WBC <5 /HPF (<5); Urine pH 5.5 (5.0-7.0)
[2025-01-06] MEDS ORDERED: CEFTRIAXONE 1000 MG/VIAL ONE (13:07)
--- NOTE | 2025-01-06 13:17 | EDPHYS ---
Physician Documentation [facility] Name: Edwin Linton Age: 70 yrs Sex: Male : 1955 Arrival Date: 01/06/2025 Time: 09:35 Bed 6 Private MD: ED Physician Robert Yost HPI: 01/06 09:48 This 70 yrs old Male presents to ER via EMS with complaints of Altered Mental ec2 Status, Fall Injury, Leg Pain. 09:48 Patient arrives today d/t concern for general weakness. reports that he had a GLF ec2 yesterday, no blood thinners, no prodromal s/s. denies head or neck pain. no loc. . Historical: - Allergies: 09:46 No Known Allergies; ld1 - PMHx: 09:46 Cerebrovascular accident; diabetes mellitus; Hypercholesterolemia; Hypertensive ld1 disorder; - Immunization history:: Adult Immunizations up to date. - Infectious Disease History:: Denies. - Social history:: Smoking status: Patient denies any tobacco usage or history of. ROS: 09:49 Constitutional: as per hpi ec2 Exam: 09:49 Constitutional: GEN: No acute distress HEENT: -Head: no deformities -Eyes: EOMI CV: ec2 regular rate LUNGS: no respiratory distress ABD: non-tender SKIN: multiple abrasions throughout, contusion to the R forehead MSK: No C/T/L spine deformities RUE w/o bony deformity LUE w/o bony deformity RLE w/o bony deformity LLE w/o bony deformity NEURO: moves all extremities equally, GCS 15 (E4, V5, M6) Vital Signs: 09:45 BP 177 / 94; Pulse 74; Resp 18; Temp 98.1(TE); Pulse Ox 100% on R/A; Height 5 ft. 11 ld1 in. ; Pain 7/10; 11:15 BP 170 / 94; Pulse 76; Resp 18; Pulse Ox 98% on R/A; ld1 12:08 BP 170 / 94; Pulse 76; Resp 18; Pulse Ox 97% on R/A; ld1 14:30 BP 156 / 86; Pulse 77; Resp 15; Pulse Ox 99% on R/A; hb 16:00 BP 165 / 85; Pulse 76; Resp 17; Pulse Ox 97% on R/A; hb 09:45 Pain Scale: Adult ld1 MDM: 09:38 Medical Screening Exam initiated ec2 09:51 Data reviewed: vital signs, nurses notes. ED course: Patient arrives today d/t concern ec2 for weakness after a glf yesterday. exam reveals no bony deformities, however multiple skin wounds in different stages of healing. will obtain ctoh given glf and age, labs and ua. ddx includes processes such as uti, ICH, anemia, electrolyte disturbances. 10:02 ED course: Ekg independently reviewed and interpreted by me, shows nsr, rate of 73, no ec2 acute ischemic changes, non-actionable intervals. 10:48 ED course: Metabolic profile shows renal dysfunction with a creatinine 1.32. Within ec2 normal ranges troponin.. 13:16 ED course: BNP minimally elevated at 777. Chest x-ray with pneumonitis versus possible ec2 volume overload. Given the patient's generalized weakness, reported altered mental status, will admit the patient for further management. Give the patient Rocephin for antibiotic coverage. Return precautions given.. 01/06 09:39 Order name: CBC with Diff; Complete Time: 10:40 ec2 01/06 09:39 Order name: BMP; Complete Time: 10:48 ec2 01/06 09:39 Order name: Troponin High Sensitivity; Complete Time: 10:48 ec2 01/06 09:39 Order name: UAM; Complete Time: 12:22 ec2 01/06 12:34 Order name: BNP; Complete Time: 12:51 ec2 01/06 14:42 Order name: CBC with Automated Diff EDMS 01/06 14:42 Order name: CBC with Automated Diff EDMS 01/06 14:42 Order name: CBC with Automated Diff EDMS 01/06 14:42 Order name: CBC with Automated Diff EDMS 01/06 14:42 Order name: Comprehensive Metabolic Panel EDMS 01/06 14:42 Order name: Comprehensive Metabolic Panel EDMS 01/06 14:42 Order name: Comprehensive Metabolic Panel EDMS 01/06 14:42 Order name: Comprehensive Metabolic Panel EDMS 01/06 14:42 Order name: Creatine Phosphokinase EDMS 01/06 14:42 Order name: Creatine Phosphokinase EDMS 01/06 14:42 Order name: Creatine Phosphokinase EDMS 01/06 14:42 Order name: Creatine Phosphokinase EDMS 01/06 14:42 Order name: Lipid Profile EDMD 01/06 14:42 Order name: Lipid Profile EDMD 01/06 14:42 Order name: Magnesium EDMD 01/06 14:42 Order name: Magnesium EDMD 01/06 14:42 Order name: Magnesium EDMD 01/06 14:42 Order name: Magnesium EDMD 01/06 14:42 Order name: PTT, Activated Partial Thromb EDMD 01/06 14:42 Order name: PTT, Activated Partial Thromb EDMD 01/06 14:42 Order name: PTT, Activated Partial Thromb EDMD 01/06 14:42 Order name: PTT, Activated Partial Thromb EDMD 01/06 09:39 Order name: CT Head Brain wo Cont; Complete Time: 10:40 ec2 01/06 09:39 Order name: CXR XRAY; Complete Time: 12:07 ec2 01/06 09:39 Order name: Pelvis XRAY; Complete Time: 12:07 ec2 01/06 14:42 Order name: [facility] 01/06 14:42 Order name: Physical Therapy Consult EDMD 01/06 14:42 Order name: Social Service Consult EDMD 01/06 09:39 Order name: IV; Complete Time: 10:14 ec2 01/06 09:39 Order name: EKG - Nurse/Tech; Complete Time: 09:50 ec2 Administered Medications: 11:14 Drug: Boostrix Tdap IM 0.5 ml IM once; as a single dose Route: IM; Site: right deltoid; ld1 13:19 Drug: Rocephin IV 1 grams IV at calculated rate once; Given slow IV push per pharmacy hb instructions Route: IV; Rate: calculated rate; Site: right antecubital; Disposition Summary: 01/06/25 13:17 Hospitalization Ordered Notes: Hospitalization Status: Inpatient Admission ec2 Provider: Renny Suazo ec2 Location: Telemetry/MedSurg (Inpatient) ec2 Condition: Stable ec2 Problem: an ongoing problem ec2 Symptoms: are unchanged ec2 Bed/Room Type: Standard ec2 Room Assignment: 419(01/06/25 14:57) eb Diagnosis - Weakness ec2 - Acute interstitial pneumonitis ec2 Forms: - Medication Reconciliation Form ec2 - SBAR form ec2 - Leadership Thank You Letter ec2 Signatures: Dispatcher [employer] TRAMAINEMD Binta Wilkins, RN RN Jacqui Foster Isabel Romero RN RN ld1 Robert Yost MD MD ec2 Corrections: (The following items were deleted from the chart) 09:40 09:40 CBC+H.LAB.BRZ ordered. EDMS EDMS 09:40 09:40 BASIC METABOLIC PANEL+C.LAB.BRZ ordered. EDMS EDMS :40 09:40 Troponin High Sensitivity+C.LAB.BRZ ordered. EDMS EDMS 09:40 09:40 Urinalysis W/Microscopic+U.LAB.BRZ ordered. EDMS EDMS 09:40 09:40 Head Brain Wo Cont+CT.RAD.BRZ ordered. EDMS EDMS :40 09:40 Chest Single View+RAD.RAD.BRZ ordered. EDMS EDMS 09:40 09:40 Pelvis+RAD.RAD.BRZ ordered. EDMS EDMS 12:08 11:56 Choudhury ordered. ec2 ld1 14:57 13:17 ec2 eb
--- NOTE | 2025-01-06 13:17 | ER ---
Nurse's Notes [facility] Name: Edwin Linton Age: 70 yrs Sex: Male : 1955 Arrival Date: 01/06/2025 Time: 09:35 Bed 6 Private MD: Diagnosis: Weakness;Acute interstitial pneumonitis Presentation: 01/06 09:45 Chief complaint: EMS states: [facility] out to [facility] for altered mental status, leg ld1 swelling, "not feeling well." Pt reports falling yesterday, c/o pain to right knee. Coronavirus screen: At this time, the client does not indicate any symptoms associated with coronavirus-19. Ebola Screen: No symptoms or risks identified at this time. Initial Sepsis Screen: Does the patient meet any 2 criteria? No. Patient's initial sepsis screen is negative. Does the patient have a suspected source of infection? No. Patient's initial sepsis screen is negative. Risk Assessment: Do you want to hurt yourself or someone else? Patient reports no desire to harm self or others. Onset of symptoms was January 06, 2025. 09:45 Method Of Arrival: EMS: [facility] ld1 09:45 Acuity: ROLAND 3 ld1 Triage Assessment: 09:46 General: Appears in no apparent distress. uncomfortable, Behavior is cooperative, ld1 anxious. Pain: Complains of pain in right knee Pain does not radiate. Pain currently is 7 out of 10 on a pain scale. Quality of pain is described as throbbing, Pain began suddenly, Is continuous. EENT: No signs and/or symptoms were reported regarding the EENT system. Neuro: Level of Consciousness is awake, alert, obeys commands, Oriented to person, place, time, situation, Appropriate for age. Cardiovascular: Capillary refill < 3 seconds Patient's skin is warm and dry. Respiratory: Airway is patent Respiratory effort is even, unlabored. GI: Abdomen is round non-distended. : No signs and/or symptoms were reported regarding the genitourinary system. Derm: No signs and/or symptoms reported regarding the dermatologic system. Musculoskeletal: No signs and/or symptoms reported regarding the musculoskeletal system. Historical: - Allergies: 09:46 No Known Allergies; ld1 - PMHx: 09:46 Cerebrovascular accident; diabetes mellitus; Hypercholesterolemia; Hypertensive ld1 disorder; - Immunization history:: Adult Immunizations up to date. - Infectious Disease History:: Denies. - Social history:: Smoking status: Patient denies any tobacco usage or history of. Screenin:47 [facility] ED Fall Risk Assessment (Adult) History of falling in the last 3 months, ld1 including since admission Yes- single mechanical fall (1 pt) Confusion or Disorientation Yes (5 pts) Intoxicated or Sedated No (0 pts) Impaired Gait Yes (1 pt) Mobility Assist Device Used Yes (1 pt) Altered Elimination Yes (1 pt) Score/Fall Risk Level 3 or more points = High Risk Oriented to surroundings, Maintained a safe environment, Educated pt \\T\\ family on fall prevention, incl call for assistance when getting out of bed, Assessed \\T\\ reinforced patient's understanding of fall precautions, Provided non-skid footwear, Hourly rounding (assess needs \\T\\ fall precautionary measures) done, Used ambulatory aids as needed (educated on \\T\\ assisted with). Abuse screen: Denies threats or abuse. Denies injuries from another. Nutritional screening: No deficits noted. Tuberculosis screening: No symptoms or risk factors identified. Assessment: 09:47 Reassessment: See triage assessment. Received patient from EMS, naked without clothes. ld1 Placed patient on purewick. 11:15 Reassessment: Patient appears in no apparent distress at this time. No changes from ld1 previously documented assessment. 12:08 Reassessment: Patient appears in no apparent distress at this time. No changes from ld1 previously documented assessment. Patient and/or family updated on plan of care and expected duration. Pain level reassessed. Patient is alert, oriented x 3, equal unlabored respirations, skin warm/dry/pink. 14:45 Reassessment: Patient appears in no apparent distress at this time. No changes from hb previously documented assessment. Patient and/or family updated on plan of care and expected duration. Pain level reassessed. 16:00 Reassessment: Patient appears in no apparent distress at this time. No changes from hb previously documented assessment. Patient and/or family updated on plan of care and expected duration. Pain level reassessed. Vital Signs: 09:45 BP 177 / 94; Pulse 74; Resp 18; Temp 98.1(TE); Pulse Ox 100% on R/A; Height 5 ft. 11 ld1 in. ; Pain 7/10; 11:15 BP 170 / 94; Pulse 76; Resp 18; Pulse Ox 98% on R/A; ld1 12:08 BP 170 / 94; Pulse 76; Resp 18; Pulse Ox 97% on R/A; ld1 14:30 BP 156 / 86; Pulse 77; Resp 15; Pulse Ox 99% on R/A; hb 16:00 BP 165 / 85; Pulse 76; Resp 17; Pulse Ox 97% on R/A; hb 09:45 Pain Scale: Adult ld1 ED Course: 09:38 Patient arrived in ED. ec2 09:38 Robert Yost MD is Attending Physician. ec2 09:44 Isabel Romero, SIXTO is Primary Nurse. ld1 09:46 Triage completed. ld1 09:46 Arm band placed on right wrist. ld1 09:47 Patient has correct armband on for positive identification. Placed in gown. Bed in low ld1 position. Call light in reach. Side rails up X2. baggage inspector on. Pulse ox on. NIBP on. Door closed. Noise minimized. Warm blanket given. 09:52 EKG done, by ED staff, reviewed by Robert Yost MD. am7 10:08 CT Head Brain wo Cont In Process Unspecified. EDMS 10:10 CXR XRAY In Process Unspecified. EDMS 10:10 Pelvis XRAY In Process Unspecified. EDMS 10:14 CBC with Diff Sent. ss 10:14 BMP Sent. ss 10:14 Inserted saline lock: 20 gauge in right antecubital area, using aseptic technique. ss Blood collected. Flushed with 10 mL NS. 12:07 UAM Sent. am7 13:16 Renny Suazo is Hospitalizing Provider. ec2 16:37 No provider procedures requiring assistance completed. Patient admitted, IV remains in hb place. Administered Medications: 11:14 Drug: Boostrix Tdap IM 0.5 ml IM once; as a single dose Route: IM; Site: right deltoid; ld1 13:19 Drug: Rocephin IV 1 grams IV at calculated rate once; Given slow IV push per pharmacy hb instructions Route: IV; Rate: calculated rate; Site: right antecubital; Medication: 09:47 VIS not applicable for this client. ld1 Outcome: 13:17 Decision to Hospitalize by Provider. ec2 16:37 Admitted to Med/surg accompanied by tech, with chart, 16:37 Condition: stable 16:37 Instructed on the need for admit, Demonstrated understanding of instructions, 16:37 Patient left the ED. Signatures: Dispatcher [employer] Ibeth Israel RN RN Binta Wilkins RN RN Isabel Romero RN RN ld1 Robert Yost MD MD ec2 Janae Morocho am7
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
[2025-01-06] MEDS: ENOXAPARIN 40 MG/0.4 ML SQ SCH (15:00)
[2025-01-06] MEDS ORDERED: GLUCAGON 1 MG/VIAL IM PRN (16:35)
[2025-01-06] MEDS ORDERED: D10W 125 ML IV PRN (16:35)
[2025-01-06] MEDS ORDERED: LABETALOL 20 MG/4ML SYRINGE IV PRN (16:36)
[2025-01-06] MEDS ORDERED: ACETAMINOPHEN 500 MG TAB PO PRN (16:53)
[2025-01-06] MEDS ORDERED: MORPHINE 2 MG/ML SYR IV PRN (16:53)
[2025-01-06] MEDS: IPRATROPIUM BROM 0.5MG/2.5ML NEB SCH (19:00)
[2025-01-06] MEDS: INSULIN REGULAR (HUMAN) 100 UNIT/ML SQ SCH (22:22)
[2025-01-06 22:59] LABS: SARS-CoV-2 Antigen CONTROL BLUE LINE VIS/BG OK; SARS-CoV-2 Antigen Rapid Res Negative (Negative)
[2025-01-07] MEDS: ALBUTEROL 2.5 MG/3 ML NEB SOL NEB SCH (02:24)
[2025-01-07 07:04] LABS: Absolute Eosinophils 0.1 K/uL (0-0.5); Absolute Lymphocytes (CBC) 1.1 K/uL (0.7-4.9); Absolute Monocytes 1.1 K/uL (0.1-1.3); Absolute Neutrophil 7.7 K/uL (1.8-8.0); Basophils % 0.3 % (0-1.3); Eosinophils % 1.4 % (0-4.4); Hematocrit 35.2 % (39.6-49.0); Hemoglobin 12.2 g/dL (13.6-17.9); Lymphocytes % 10.5 % (15.3-44.8); MCH 29.5 pg (27.0-35.0); MCHC 34.6 g/dL (32.0-36.0); MCV 85.1 fL (80-100); MPV 7.6 fL (7.6-11.3); Neutrophils % 76.8 % (41.7-73.7); Nucleated Red Blood Cells % 0.1 % (0-0); Platelets 280 thou/uL (152-406); RBC Red Blood Cell Count 4.13 M/uL (4.33-5.43)
[2025-01-07 07:13] LABS: Albumin 2.7 g/dL (3.4-5.0); Albumin/Globulin Ratio 0.8 (1.1-1.8); Alkaline Phosphatase 127 U/L (45-117); Anion Gap 8.5 mEq/L (5.0-15.0); BUN Blood Urea Nitrogen 21 mg/dL (7-18); Bicarbonate 26 mEq/L (21-32); Bilirubin Total 0.5 mg/dL (0.2-1.0); Creatine Phosphokinase 50 U/L (39-308); Globulin 3.4 g/dL (2.3-3.5); Glomerular Filtration Rate 66 ml/min (=/>90); Glucose Level 167 mg/dL (74-106); HDL Cholesterol 39 mg/dL (40-60); LDL Cholesterol, Calculated 68 mg/dL (<130); LDL Cholesterol,Calc NonReport 68; Magnesium 1.7 mg/dL (1.6-2.4); Potassium 3.5 mEq/L (3.5-5.1); Protein, Total 6.1 g/dL (6.4-8.2); Sodium Level 137 mEq/L (136-145)
[2025-01-07 07:15] LABS: ALT/SGPT < 14 U/L (16-61); AST/SGOT < 10 U/L (15-37)
[2025-01-07] MEDS: INSULIN GLARGINE 100 UNIT/ML SQ SCH (09:31)
[2025-01-07] MEDS: AMLODIPINE 10 MG TAB PO SCH (09:31)
[2025-01-07] MEDS: KETOCONAZOLE CREAM 15 GM TUBE TOP SCH (12:31)
[2025-01-07] MEDS: HYDROCODONE/APAP 5/325 MG TAB PO PRN (12:33)
--- NOTE | 2025-01-07 12:42 | P.PN ---
Date of Service: 01/07/25 Subjective Pain in lower legs/feet Review of Systems 10-point ROS is otherwise unremarkable General: Weakness, Malaise Eyes: Unremarkable ENT: Unremarkable Respiratory: Unremarkable Cardiovascular: Unremarkable Gastrointestinal: Unremarkable Genitourinary: Unremarkable Musculoskeletal: As per HPI Integumentary: As per HPI Neurological: Weakness Lymphatics: Unremarkable Physical Examination - Vital Signs reviewed - Physical Exam General: Oriented x2, Disheveled, Obese HEENT: Atraumatic, Normocephalic Neck: Supple Respiratory: Clearing, no increased work of breathing Cardiovascular: Regular rate/rhythm, Normal S1 S2, Edema Capillary refill: <2 Seconds Gastrointestinal: Normal bowel sounds Musculoskeletal: Other Integumentary: Other (scabbing to bilateral knees, edema and crusting to bilateral lower extremities), fungal Neurological: Normal speech, Normal tone, Abnormal sensation, Abnormal affect Lymphatics: No axilla or inguinal lymphadenopathy Urinary: Other (pure wick) External genitalia: Deferred Rectal: Deferred - Studies Laboratory Data (last 24 hrs) 01/06/25 01/06/25 10:14 10:14 WBC 9.00 Hgb 12.7 L Hct 37.0 L Plt Count 279 Sodium 139 Potassium 4.3 BUN 31 H Creatinine 1.32 H Glucose 298 H Assessment and Plan - Plan Generalized weakness and deconditioning Consult CM, OT, PT CT head without evidence of intracranial abnormality Uncontrolled diabetes with lower extremity wounds Insuline glargine 20u daily glucose monitoring AC/HS with SSI coverage Hgb A1c CKD monitor and trend, obtain control of blood sugar and reassess volume status resolving Hypertension/hyperlipidemia please reconcile home medications 01/07/25 DM peripheral neuropathy gabapentin added Tinea Pedis Fluconazole topically BID CM evaluated patient, awaiting PT/OT evaluation VTE/GI prophylaxis - Advance Directives Does patient have a Living Will: No Does patient have a Durable POA for Healthcare: No - Code Status/Comfort Care Code Status Assessed: Yes (Full)
[2025-01-07 15:28] VITALS: BMI 28.0
[2025-01-07] MEDS: GABAPENTIN 300 MG CAP PO SCH (20:31)
[2025-01-08 07:02] LABS: Absolute Eosinophils 0.2 K/uL (0-0.5); Absolute Lymphocytes (CBC) 1.3 K/uL (0.7-4.9); Absolute Monocytes 0.9 K/uL (0.1-1.3); Absolute Neutrophil 4.5 K/uL (1.8-8.0); Basophils % 0.4 % (0-1.3); Eosinophils % 3.5 % (0-4.4); Hematocrit 33.7 % (39.6-49.0); Hemoglobin 11.4 g/dL (13.6-17.9); MCH 28.9 pg (27.0-35.0); MCHC 33.8 g/dL (32.0-36.0); MCV 85.4 fL (80-100); MPV 7.5 fL (7.6-11.3); Monocytes % 12.9 % (3.3-12.3); Neutrophils % 64.2 % (41.7-73.7); Nucleated Red Blood Cells % 0.1 % (0-0); Platelets 255 thou/uL (152-406); RBC Red Blood Cell Count 3.94 M/uL (4.33-5.43); Red Cell Distribution Width 13.1 % (12.1-15.2)
[2025-01-08 07:23] LABS: Albumin 2.5 g/dL (3.4-5.0); Albumin/Globulin Ratio 0.7 (1.1-1.8); Alkaline Phosphatase 115 U/L (45-117); Anion Gap 8.9 mEq/L (5.0-15.0); BUN Blood Urea Nitrogen 36 mg/dL (7-18); Bicarbonate 26 mEq/L (21-32); Bilirubin Total 0.3 mg/dL (0.2-1.0); Creatine Phosphokinase 30 U/L (39-308); Globulin 3.4 g/dL (2.3-3.5); Glomerular Filtration Rate 54 ml/min (=/>90); Glucose Level 315 mg/dL (74-106); Magnesium 1.9 mg/dL (1.6-2.4); Potassium 3.9 mEq/L (3.5-5.1); Protein, Total 5.9 g/dL (6.4-8.2); Sodium Level 135 mEq/L (136-145)
[2025-01-08 07:37] LABS: ALT/SGPT < 14 U/L (16-61); AST/SGOT < 10 U/L (15-37)
--- NOTE | 2025-01-08 13:23 | P.PN ---
Date of Service: 01/08/25 Subjective Pain in lower legs/feet improving Review of Systems 10-point ROS is otherwise unremarkable General: Weakness, Malaise Eyes: Unremarkable ENT: Unremarkable Respiratory: Unremarkable Cardiovascular: Unremarkable Gastrointestinal: Unremarkable Genitourinary: Unremarkable Musculoskeletal: As per HPI Integumentary: As per HPI Neurological: Weakness Lymphatics: Unremarkable Physical Examination - Vital Signs reviewed - Physical Exam General: Oriented x2, Obese HEENT: Atraumatic, Normocephalic Neck: Supple Respiratory: Clearing, no increased work of breathing Cardiovascular: Regular rate/rhythm, Normal S1 S2, Edema Capillary refill: <2 Seconds Gastrointestinal: Normal bowel sounds Musculoskeletal: Other Integumentary: scabbing to bilateral knees, fungal Neurological: Normal speech, Normal tone, normal sensation, normal affect Lymphatics: No axilla or inguinal lymphadenopathy Urinary: Other (pure wick) External genitalia: Deferred Rectal: Deferred Assessment and Plan - Plan Generalized weakness and deconditioning Consult CM, OT, PT CT head without evidence of intracranial abnormality Uncontrolled diabetes with lower extremity wounds Insulin glargine 20u daily glucose monitoring AC/HS with SSI coverage Hgb A1c CKD monitor and trend, obtain control of blood sugar and reassess volume status resolving Hypertension/hyperlipidemia please reconcile home medications 01/07/25 DM peripheral neuropathy gabapentin added Tinea Pedis Fluconazole topically BID CM evaluated patient, awaiting PT/OT evaluation 01/08/25 increased insulin glargine to 24u daily (hemoglobin a1c 9.0) legs/feet improving feeling better per report VTE/GI prophylaxis - Advance Directives Does patient have a Living Will: No Does patient have a Durable POA for Healthcare: No - Code Status/Comfort Care Code Status Assessed: Yes (Full)
[2025-01-08] MEDS: METFORMIN HCL 500 MG TAB PO SCH (18:01)
[2025-01-08] MEDS: IPRATROPIUM BROM 0.5MG/2.5ML ONE (21:03)
[2025-01-08] MEDS: ALBUTEROL 2.5 MG/3 ML NEB SOL ONE (21:03)
[2025-01-09] MEDS: ALBUTEROL 2.5 MG/3 ML NEB SOL ONE ×2 (01:40→20:57)
[2025-01-09] MEDS: IPRATROPIUM BROM 0.5MG/2.5ML ONE ×2 (01:40→20:57)
[2025-01-09 06:59] LABS: Absolute Eosinophils 0.3 K/uL (0-0.5); Absolute Lymphocytes (CBC) 1.3 K/uL (0.7-4.9); Absolute Monocytes 0.8 K/uL (0.1-1.3); Absolute Neutrophil 6.9 K/uL (1.8-8.0); Basophils % 0.4 % (0-1.3); Eosinophils % 3.2 % (0-4.4); Hematocrit 35.3 % (39.6-49.0); Hemoglobin 12.1 g/dL (13.6-17.9); Lymphocytes % 14.2 % (15.3-44.8); MCH 28.9 pg (27.0-35.0); MCHC 34.3 g/dL (32.0-36.0); MCV 84.5 fL (80-100); MPV 7.7 fL (7.6-11.3); Monocytes % 8.9 % (3.3-12.3); Neutrophils % 73.3 % (41.7-73.7); Platelets 250 thou/uL (152-406); RBC Red Blood Cell Count 4.18 M/uL (4.33-5.43); Red Cell Distribution Width 13.3 % (12.1-15.2)
[2025-01-09 07:18] LABS: Albumin 2.5 g/dL (3.4-5.0); Albumin/Globulin Ratio 0.7 (1.1-1.8); Alkaline Phosphatase 114 U/L (45-117); Anion Gap 9.2 mEq/L (5.0-15.0); BUN Blood Urea Nitrogen 27 mg/dL (7-18); Bicarbonate 26 mEq/L (21-32); Bilirubin Total 0.4 mg/dL (0.2-1.0); Creatine Phosphokinase 29 U/L (39-308); Globulin 3.7 g/dL (2.3-3.5); Glomerular Filtration Rate 59 ml/min (=/>90); Glucose Level 173 mg/dL (74-106); Magnesium 1.9 mg/dL (1.6-2.4); Potassium 4.2 mEq/L (3.5-5.1); Protein, Total 6.2 g/dL (6.4-8.2); Sodium Level 136 mEq/L (136-145)
[2025-01-09 07:19] LABS: ALT/SGPT < 14 U/L (16-61); AST/SGOT < 10 U/L (15-37)
[2025-01-09] MEDS: INSULIN GLARGINE 100 UNIT/ML SQ SCH (07:39)
[2025-01-11 07:13] LABS: Anion Gap 9.5 mEq/L (5.0-15.0); Phosphorus 3.2 mg/dL (2.5-4.9); Potassium 4.5 mEq/L (3.5-5.1)
[2025-01-11] MEDS ORDERED: IPRATROPIUM BROM 0.5MG/2.5ML NEB PRN (13:45)
[2025-01-11] MEDS ORDERED: ALBUTEROL 2.5 MG/3 ML NEB SOL NEB PRN (13:45)
--- NOTE | 2025-01-12 09:52 | P.PN ---
Subjective Date of Service: 01/09/25 Subjective: No new changes, Improving Review of Systems 10-point ROS is otherwise unremarkable Physical Examination - Vital Signs Temperature: 98.0 F Blood Pressure: 134/72 Pulse: 60 Respirations: 16 Pulse Ox (%): 97 - Physical Exam General: Alert, In no apparent distress, Oriented x3 Respiratory: Clear to auscultation bilaterally, Normal air movement Cardiovascular: Regular rate/rhythm, Normal S1 S2 Gastrointestinal: Normal bowel sounds, Soft and benign, Non-distended, No tenderness Musculoskeletal: No clubbing, No swelling, No tenderness Neurological: Sensation intact, Cranial nerves 3-12 intact - Studies Medications List Reviewed: Yes Assessment & Plan - Problems (Diagnosis) (1) PAUL (acute kidney injury) Current Visit: No Status: Acute (2) Chronic kidney disease Current Visit: No Status: Acute (3) History of CVA (cerebrovascular accident) Current Visit: No Status: Acute (4) Homeless Current Visit: No Status: Acute (5) Type 2 diabetes mellitus Current Visit: No Status: Acute Qualifiers: Diabetes mellitus nursing home insulin use: with nursing home use (6) Generalized weakness Current Visit: Yes Status: Acute - Plan Plan: 1. Continue with strict blood sugar control 2. Continue with IV hydration 3. Out of bed and ambulate with PT; requiring mod to max assist for ambulation. Still getting lightheaded. 4. Continue monitoring renal function 5. Working on placement at this time. Discharge Plan: Home Plan to discharge in: Greater than 2 days - Advance Directives Does patient have a Living Will: No Does patient have a Durable POA for Healthcare: No - Code Status/Comfort Care Code Status Assessed: Yes Code Status: Full Code Critical Care: No Time Spent Managing PTS Care (In Minutes): 35
--- NOTE | 2025-01-12 09:55 | P.PN ---
Date of Service: 01/10/25 Subjective Patient denies any new complaints. However, he still having a hard time with physical therapy. Having a hard time ambulating. Physical Examination - Vital Signs Reviewed - Physical Exam General: Alert, In no apparent distress, Oriented x3 Respiratory: Clear to auscultation bilaterally, Normal air movement Cardiovascular: Regular rate/rhythm, Normal S1 S2 Gastrointestinal: Normal bowel sounds, Soft and benign, Non-distended, No tenderness Musculoskeletal: No clubbing, No swelling, No tenderness Neurological: No focal deficits except for generalized weakness; some ataxia and dizziness on ambulation Assessment & Plan - Problems (Diagnosis) (1) PAUL (acute kidney injury) Current Visit: No Status: Acute (2) Chronic kidney disease Current Visit: No Status: Acute (3) History of CVA (cerebrovascular accident) Current Visit: No Status: Acute (4) Homeless Current Visit: No Status: Acute (5) Type 2 diabetes mellitus Current Visit: No Status: Acute Qualifiers: Diabetes mellitus skilled nursing insulin use: with rental representative use (6) Generalized weakness Current Visit: Yes Status: Acute - Plan Continue with plan of care as mentioned below: 1. Continue with strict blood sugar control 2. Continue with IV hydration; renal function is stabilized 3. Out of bed and ambulate with PT; requiring mod to max assist for ambulation. Still getting lightheaded. 4. Continue monitoring renal function 5. Working on placement at this time. Discharge Plan: Home Plan to discharge in: Greater than 2 days - Advance Directives Does patient have a Living Will: No Does patient have a Durable POA for Healthcare: No - Code Status/Comfort Care Code Status Assessed: Yes Code Status: Full Code Critical Care: No Time Spent Managing PTS Care (In Minutes): 25
--- NOTE | 2025-01-12 09:57 | P.PN ---
Date of Service: 01/11/25 Subjective Patient denies any new complaints or patient continues to do well. He still seems very motivated with working with therapy. Physical Examination - Vital Signs Reviewed - Physical Exam General: Alert, In no apparent distress, Oriented x3 Respiratory: Clear to auscultation bilaterally, Normal air movement Cardiovascular: Regular rate/rhythm, Normal S1 S2 Gastrointestinal: Normal bowel sounds, Soft and benign, Non-distended, No tenderness Musculoskeletal: No clubbing, No swelling, No tenderness Neurological: No focal deficits except for generalized weakness; some ataxia and dizziness on ambulation Assessment & Plan - Problems (Diagnosis) (1) PAUL (acute kidney injury) Current Visit: No Status: Acute (2) Chronic kidney disease Current Visit: No Status: Acute (3) History of CVA (cerebrovascular accident) Current Visit: No Status: Acute (4) Homeless Current Visit: No Status: Acute (5) Type 2 diabetes mellitus Current Visit: No Status: Acute Qualifiers: Diabetes mellitus exterminator helper insulin use: with exterminator helper use (6) Generalized weakness Current Visit: Yes Status: Acute - Plan Continue with plan of care as mentioned below: 1. Continue with strict blood sugar control 2. Heplock IV; renal function is stabilized 3. OOB and ambulate with PT; requiring mod to max assist for ambulation. Still getting lightheaded. 4. Continue monitoring renal function 5. Working on placement at this time. Discharge Plan: Home Plan to discharge in: Greater than 2 days - Advance Directives Does patient have a Living Will: No Does patient have a Durable POA for Healthcare: No - Code Status/Comfort Care Code Status Assessed: Yes Code Status: Full Code Critical Care: No Time Spent Managing PTS Care (In Minutes): 25
[2025-01-13 11:24] LABS: Absolute Eosinophils 0.4 K/uL (0-0.5); Absolute Lymphocytes (CBC) 1.2 K/uL (0.7-4.9); Absolute Monocytes 0.7 K/uL (0.1-1.3); Absolute Neutrophil 6.6 K/uL (1.8-8.0); Basophils % 0.5 % (0-1.3); Eosinophils % 4.1 % (0-4.4); Hemoglobin 12.2 g/dL (13.6-17.9); Lymphocytes % 13.5 % (15.3-44.8); MCH 28.7 pg (27.0-35.0); MCHC 33.8 g/dL (32.0-36.0); MCV 84.8 fL (80-100); MPV 7.9 fL (7.6-11.3); Monocytes % 8.4 % (3.3-12.3); Neutrophils % 73.5 % (41.7-73.7); Platelets 299 thou/uL (152-406); RBC Red Blood Cell Count 4.24 M/uL (4.33-5.43); Red Cell Distribution Width 13.3 % (12.1-15.2)
[2025-01-13 11:39] LABS: ALT/SGPT 17 U/L (16-61); Albumin 2.7 g/dL (3.4-5.0); Albumin/Globulin Ratio 0.7 (1.1-1.8); Alkaline Phosphatase 124 U/L (45-117); Anion Gap 9.4 mEq/L (5.0-15.0); BUN Blood Urea Nitrogen 36 mg/dL (7-18); Bicarbonate 28 mEq/L (21-32); Bilirubin Total 0.2 mg/dL (0.2-1.0); Globulin 3.8 g/dL (2.3-3.5); Glomerular Filtration Rate 55 ml/min (=/>90); Glucose Level 217 mg/dL (74-106); Potassium 4.4 mEq/L (3.5-5.1); Protein, Total 6.5 g/dL (6.4-8.2); Sodium Level 136 mEq/L (136-145)
[2025-01-13 11:40] LABS: AST/SGOT < 10 U/L (15-37)
--- NOTE | 2025-01-14 21:15 | P.PN ---
Date of Service: 01/12/25 Subjective Patient continues to have some weakness. Patient's prognosis is poor. Physical Examination - Vital Signs Reviewed - Physical Exam General: Alert, In no apparent distress, Oriented x3 Respiratory: Clear to auscultation bilaterally, Normal air movement Cardiovascular: Regular rate/rhythm, Normal S1 S2 Gastrointestinal: Normal bowel sounds, Soft and benign, Non-distended, No tenderness Musculoskeletal: No clubbing, No swelling, No tenderness Neurological: No focal deficits except for generalized weakness; some ataxia and dizziness on ambulation Assessment & Plan - Problems (Diagnosis) (1) PAUL (acute kidney injury) Current Visit: No Status: Acute (2) Chronic kidney disease Current Visit: No Status: Acute (3) History of CVA (cerebrovascular accident) Current Visit: No Status: Acute (4) Homeless Current Visit: No Status: Acute (5) Type 2 diabetes mellitus Current Visit: No Status: Acute Qualifiers: Diabetes mellitus rat exterminator insulin use: with residential use (6) Generalized weakness Current Visit: Yes Status: Acute - Plan Continue with plan of care as mentioned below: 1. Continue with strict blood sugar control 2. Heplock IV; renal function is stabilized 3. OOB and ambulate with PT; requiring mod to max assist for ambulation. Still getting lightheaded. 4. Continue monitoring renal function 5. Working on placement at this time. Discharge Plan: Home Plan to discharge in: Greater than 2 days - Advance Directives Does patient have a Living Will: No Does patient have a Durable POA for Healthcare: No - Code Status/Comfort Care Code Status Assessed: Yes Code Status: Full Code Critical Care: No Time Spent Managing PTS Care (In Minutes): 25
--- NOTE | 2025-01-14 21:15 | P.PN ---
Date of Service: 01/13/25 Subjective Patient's clinical symptoms are stable. Awaiting for placement which unfortunately is difficult. Physical Examination - Vital Signs Reviewed - Physical Exam General: Alert, In no apparent distress, Oriented x3 Respiratory: Clear to auscultation bilaterally, Normal air movement Cardiovascular: Regular rate/rhythm, Normal S1 S2 Gastrointestinal: Normal bowel sounds, Soft and benign, Non-distended, No tenderness Musculoskeletal: No clubbing, No swelling, No tenderness Neurological: No focal deficits except for generalized weakness; some ataxia and dizziness on ambulation Assessment & Plan - Problems (Diagnosis) (1) PAUL (acute kidney injury) Current Visit: No Status: Acute (2) Chronic kidney disease Current Visit: No Status: Acute (3) History of CVA (cerebrovascular accident) Current Visit: No Status: Acute (4) Homeless Current Visit: No Status: Acute (5) Type 2 diabetes mellitus Current Visit: No Status: Acute Qualifiers: Diabetes mellitus gripper attacher insulin use: with gripper attacher use (6) Generalized weakness Current Visit: Yes Status: Acute - Plan Continue with plan of care as mentioned below: 1. Continue with strict blood sugar control 2. Heplock IV; renal function is stabilized 3. OOB and ambulate with PT; requiring mod to max assist for ambulation. Still getting lightheaded. 4. Continue monitoring renal function 5. Working on placement at this time. Discharge Plan: Home Plan to discharge in: Greater than 2 days - Advance Directives Does patient have a Living Will: No Does patient have a Durable POA for Healthcare: No - Code Status/Comfort Care Code Status Assessed: Yes Code Status: Full Code Critical Care: No Time Spent Managing PTS Care (In Minutes): 25
[2025-01-15 21:23] VITALS: O2SAT 98
--- NOTE | 2025-01-16 12:48 | EKG ---
Test Date: 2025-01-06 Test Time: 09:50:42 Commutator Inspector: AM MEASUREMENT RESULTS: Intervals: Rate: 73 [place]: 150 QRSD: 90 QT: 408 QTc: 449 [place]: P: 64 [place]: 150 QRS: -48 T: 22 INTERPRETIVE STATEMENTS: Normal sinus rhythm Left anterior fascicular block Inferior infarct, age undetermined Abnormal ECG Compared to ECG 09/26/2024 21:09:36 Left anterior fascicular block now present Left-axis deviation no longer present Myocardial infarct finding still present Electronically Signed On 01-16-25 12:23:53 PROFESSOR OF POLITICAL SCIENCE by Reji Vidal
[2025-01-16 16:24] VITALS: BP 146/77; TEMP 98.2
--- NOTE | 2025-02-02 15:15 | P.PN ---
Date of Service: 01/14/25 Subjective Patient's renal function is improving. Patient continues to try to participate with physical therapy. Patient [facility]. Physical Examination - Vital Signs Reviewed - Physical Exam General: Alert, In no apparent distress, Oriented x3 Respiratory: Clear to auscultation bilaterally, Normal air movement Cardiovascular: Regular rate/rhythm, Normal S1 S2 Gastrointestinal: Normal bowel sounds, Soft and benign, Non-distended, No tenderness Musculoskeletal: No clubbing, No swelling, No tenderness Neurological: No focal deficits except for generalized weakness; some ataxia and dizziness on ambulation Assessment & Plan - Problems (Diagnosis) (1) PAUL (acute kidney injury) Current Visit: No Status: Acute (2) Chronic kidney disease Current Visit: No Status: Acute (3) History of CVA (cerebrovascular accident) Current Visit: No Status: Acute (4) Homeless Current Visit: No Status: Acute (5) Type 2 diabetes mellitus Current Visit: No Status: Acute Qualifiers: Diabetes mellitus custodial insulin use: with custodial use (6) Generalized weakness Current Visit: Yes Status: Acute - Plan Continue with plan of care as mentioned below: 1. Continue with strict blood sugar control 2. Heplock IV; renal function is stabilized 3. OOB and ambulate with PT; requiring mod to max assist for ambulation. Still getting lightheaded. 4. Continue monitoring renal function 5. Working on placement at this time. Discharge Plan: Home Plan to discharge in: Greater than 2 days - Advance Directives Does patient have a Living Will: No Does patient have a Durable POA for Healthcare: No - Code Status/Comfort Care Code Status Assessed: Yes Code Status: Full Code Critical Care: No Time Spent Managing PTS Care (In Minutes): 25
--- NOTE | 2025-02-02 15:16 | P.PN ---
Date of Service: 01/15/25 Subjective Patient is stable medically. [facility] Physical Examination - Vital Signs Reviewed - Physical Exam General: Alert, In no apparent distress, Oriented x3 Respiratory: Clear to auscultation bilaterally, Normal air movement Cardiovascular: Regular rate/rhythm, Normal S1 S2 Gastrointestinal: Normal bowel sounds, Soft and benign, Non-distended, No tenderness Musculoskeletal: No clubbing, No swelling, No tenderness Neurological: Generalized weakness with ataxia Assessment & Plan - Problems (Diagnosis) (1) PAUL (acute kidney injury) Current Visit: No Status: Acute (2) Chronic kidney disease Current Visit: No Status: Acute (3) History of CVA (cerebrovascular accident) Current Visit: No Status: Acute (4) Homeless Current Visit: No Status: Acute (5) Type 2 diabetes mellitus Current Visit: No Status: Acute Qualifiers: Diabetes mellitus terminal makeup operator insulin use: with senior care use (6) Generalized weakness Current Visit: Yes Status: Acute - Plan Continue with plan of care as mentioned below: 1. Continue with strict blood sugar control 2. Heplock IV; renal function is stabilized; continue monitoring closely 3. OOB and ambulate with PT; requiring mod to max assist for ambulation. Still getting lightheaded. 4. Continue monitoring renal function 5. Working on placement at this time. Discharge Plan: half-way facility placement Plan to discharge in: Greater than 2 days - Advance Directives Does patient have a Living Will: No Does patient have a Durable POA for Healthcare: No - Code Status/Comfort Care Code Status Assessed: Yes Code Status: Full Code Critical Care: No Time Spent Managing PTS Care (In Minutes): 25
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
== END 2025-01-16 18:05 | DRG 948 ==
LOC: ER 09:35 → ERHOLD 14:33 → 4TH 16:00
PROVIDERS: ADMIT Internal Medicine; ATTEND Hospitalist
DX: R53.1 Weakness (principal); J84.114 Acute interstitial pneumonitis; N17.9 Acute kidney failure, unspecified; Z59.00 Homelessness unspecified; I12.9 Hypertensive chronic kidney disease with stage 1 through stage 4 chronic kidney disease, or unspecified chronic kidney disease; N18.9 Chronic kidney disease, unspecified; E11.22 Type 2 diabetes mellitus with diabetic chronic kidney disease; E11.42 Type 2 diabetes mellitus with diabetic polyneuropathy; E66.9 Obesity, unspecified; E78.00 Pure hypercholesterolemia, unspecified; T38.3X6A Underdosing of insulin and oral hypoglycemic [antidiabetic] drugs, initial encounter; R29.6 Repeated falls; Z60.2 Problems related to living alone; Z79.4 Long term (current) use of insulin; Z91.81 History of falling; Z11.52 Encounter for screening for COVID-19; Z79.84 Long term (current) use of oral hypoglycemic drugs; Z68.28 Body mass index [BMI] 28.0-28.9, adult; Z86.73 Personal history of transient ischemic attack (TIA), and cerebral infarction without residual deficits; Z79.899 Other long term (current) drug therapy; Z91.148 Patient's other noncompliance with medication regimen for other reason
CPT/HCPCS: 36415; 70450; 71045; 72170; 80048; 80053; 80061; 81001; 82550; 82947; 83036; 83735; 83880; 84100; 84484; 85025; 85730; 87804; 87807; 87811; 93005; 94640; 96372; 96374; 97110; 97116; 97161; 97530; 99285; J0696; J1650; J7613; J7644

== ENCOUNTER 2025-04-17 11:25 | Emergency (ER) | payer OTHER ==
--- OUTSIDE RECORDS SUMMARY | 2025-04-17 11:41 | XMS REPORT | Continuity of Care Document ---
Author Name Unknown Address [address] [facility] [address] [place] [address] [facility] [place] Address [address] [facility]. 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 Name Role Phone Pcp, Pcp Primary Care Physician Unavailab jessenia Chauhan MD, Mady Ang Attending Clinician [phone] Divya OSPINA, Malini Villegas Attending Clinician Sabino OSPINA, Katharina Guevara Attending Clinician [phone] Jarrell Washington DO Attending Clinician [phone] JARRELL WASHINGTON Attending Clinician Unavailable Ro Calixto Attending Clinician Unavailab jessenia Bedolla MD, Broderick Carpenter Attending Clinician +0 BRODERICK BEDOLLA Attending Clinician Unavailable DEEPA RAMIREZ Attending Clinician Unavailable DEEPA RAMIREZ Attending Clinician Unavailable Deepa Ramirez MD Attending Clinician [phone] DONI GALAN Attending Clinician Unavailable Doni Felder Attending Clinician [phone] Rupa Conroy Attending Clinician [phone] Doctor Unassigned, [place] Attending Clinician U deven Fallon RN, Martell Harrell Attending Clinician Unavail able RAJ GARCIA Attending Clinician Unavailable Riana Paul DO Attending Clinician [phone] Raj Garcia DO Attending Clinician BRADEN PALACIO Attending Clinician Unavailable Juno Snyder Attending Clinician [phone] Braden Palacio MD Attending Clinician +[phone] Benja Pang MD Attending Clinician + [phone] Azar Solomon CRNA Attending Clinician + [phone] MULUGETA PALMA Attending Clinician Unavailable MULUGETA PALMA Attending Clinician Unavailable Mulugeta Palma MD Attending Clinician [phone] Juno HWANG Attending Clinician Unavailable Juno HWANG Attending Clinician Unavailable PARVEZ CALDERA Attending Clinician Unavailable PARVEZ CALDERA Attending Clinician Unavailable Parvez Zaldivar Attending Clinician [phone] DEJON GREEN Attending Clinician Unavailab Dejon Rizzo DO Attending Clinician +[phone] Sonia Caruso Attending Clinician + [phone] ANA HAGAN Attending Clinician Unavailable ANA HAGAN Attending Clinician Unavailable Ana Hagan MD Attending Clinician + [phone] MISSAEL TEE Attending Clinician Unavailable Missael Tee PA-C Attending Clinician + [phone] LEVI FRANK Attending Clinician UnavailLevi Flores Attending Clinician +[phone] Nargis Moore RN Attending Clinician UnavailSonia Diaz Attending Clinician + [phone] MATEUSZ GAYLE Attending Clinician Unavailable MATEUSZ GAYLE Attending Clinician Unavailable MICAH MILLARD Attending Clinician Unavailable Micah Millard MD Attending Clinician + RIANA PAUL Attending Clinician Unavailable Riana Paul DO Attending Clinician + JOSE ROBERTO IRELAND Attending Clinician Unavailable Jose Roberto Ireland MD Attending Clinician +51 SONIA MULLER Attending Clinician Unavailable Dejon Green DO Attending Clinician +15 SILAS ANDERSEN Attending Clinician Unavailable SILAS ANDERSEN Attending Clinician Unavailable JACKIE DIAZ Attending Clinician Unavailab Jackie Moore DO Attending Clinician [phone] Lorene Stein Attending Clinician Tl Aranda MD Attending Clinician +[phone] TL ARANDA Attending Clinician Unavailable Georgina Garcia RN Attending Clinician Unava ilable Doctor Unassigned, [place] Attending Clinician U navailable Provider, [facility] Attending Clinician Un available Green SALES CLERK SUPERVISOR, Lesli Attending Clinician [phone] Pob, 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 Attending Clinician UnavailNIMISHA Haywood Attending Clinician Unavail able FRANK QUIROZ Attending Clinician Unavailable Darrell Maxwell MD Attending Clinician [phone] AneYossi Aguilar Attending Clinician +[phone] YOSSI PRASAD Attending Clinician Unavailable IdaliaDebra salinas RD Attending Clinician +[phone] IDALIADEBRA SALINAS Attending Clinician Unavailable DARRELL BECKFORD Attending Clinician UnavaDarrell Cazares MD Attending Clinician + [phone] Chelle Fernandez MD Attending Clinician +[phone] CHELLE FERNANDEZ Attending Clinician Unavailable Natividad Copeland MD Attending Clinician UnavaGlo Lim MD Attending Clinician +[phone] GLO FINN Attending Clinician Unavailable Kendall Campa MD Attending Clinician [phone] JOCELYN GREER Attending Clinician UnavailDARRELL Khalil III Attending Clinician UnavailJUHI Castro Attending Clinician Unavailron COPELAND, NATIVIDAD ROXANA Attending Clinician Unavailab jessenia Stokes MD, Malini Villegas Admitting Clinician MALINI STOKES Admitting Clinician Ileana DEEPA Whitt Admitting Clinician Unavailable RAJ GARCIA Admitting Clinician Unavailable Raj Garcia DO Admitting Clinician [phone] Juno HWANG Admitting Clinician Unavailable PARVEZ CALDERA Admitting Clinician Unavailable DEJON GREEN Admitting Clinician Unavailab ANA Fortune Admitting Clinician Unavailable MISSAEL TEE Admitting Clinician Unavailable LEVI FRANK Admitting Clinician UnavailMATEUSZ Underwood Admitting Clinician Unavailable MICAH MILLARD Admitting Clinician Unavailable JOSE ROBERTO IRELAND Admitting Clinician Unavailable SONIA MULLER Admitting Clinician Unavailable CHELLE FERNANDEZ Admitting Clinician Unavailable TL ARANDA Admitting Clinician Unavailable Glo Finn MD Admitting Clinician GLO FINN Admitting Clinician Unavailable Payers Payer Name Policy Type Policy Number Effective Date Expirati on Date Source AETNA MEDICARE ADVANTAGE Medicare [id number] 2025 00:00:00 [employer] MEDICARE OUT OF NETWORK [id number] 2023 00:00:00 [facility] [place] (MEDICARE REPLACEMENT HMO) [id number] 2022 00:00:00 MEDICARE PART A \\T\\ B [id number] 2018 00:00:00 2019 00:00:00 COMMERCIAL NON-CONTRACT GENERIC [id number] 2018 00:00:00 2019 00:00:00 Problems Condition Name Condition Details Condition Category Status Onset Date Resolution Date Last Treatment Date Treating Clinician Comments Source COVID-19 virus infection COVID-19 virus infection Disease Active 04-11 00:00: 00 Enmanuel Estrada Open wound of both lower extremitie s with complicati on, initial encounter Open wound of both lower extremitie s with complicati on, initial encounter Disease Active 04-10 00:00: 00 Enmanuel Estrada Rhabdomyol ysis Rhabdomyol ysis Disease Active 04-10 00:00: 00 Enmanuel Estrada PAUL (acute kidney injury) PAUL (acute kidney injury) Disease Active 04-10 00:00: 00 Enmanuel Estrada Type 2 diabetes mellitus Type 2 diabetes mellitus Disease Active 04-10 00:00: 00 Enmanuel Estrada Hypoglycem ia Hypoglycem ia Disease Active 2023-11 00:00: 00 [facility] Bacteremia Bacteremia Disease Active 8-01 00:00: 00 [facility] Balance problem Balance problem Disease Active 7-24 00:00: 00 [facility] Omental infarction Omental infarction Disease Active 3-09 00:00: 00 [facility] Psoriasifo rm dermatitis Psoriasifo rm dermatitis Disease Active 8-18 00:00: 00 [facility] Need for 23-polyval ent pneumococc al polysaccha ride vaccine Need for 23-polyval ent pneumococc al polysaccha ride vaccine Disease Active 3-28 00:00: 00 [facility] Cellulitis of foot, left Cellulitis of foot, left Disease Active 5-21 00:00: 00 [facility] Edema of both legs Edema of both legs Disease Active 4-07 00:00: 00 [facility] Erectile dysfunctio n, unspecifie d erectile dysfunctio n type Erectile dysfunctio n, unspecifie d erectile dysfunctio n type Disease Active 4-07 00:00: 00 [facility] Essential hypertensi on Essential hypertensi on Disease Active 4-07 00:00: 00 [facility] Edema of both legs Edema of both legs Disease Active 4-07 00:00: 00 [facility] Erectile dysfunctio n, unspecifie d erectile dysfunctio n type Erectile dysfunctio n, unspecifie d erectile dysfunctio n type Disease Active 4-07 00:00: 00 [facility] Acute midline low back pain without sciatica Acute midline low back pain without sciatica Disease Active 2-26 00:00: 00 [facility] Medicare annual wellness visit, subsequent Medicare annual wellness visit, subsequent Disease Active 1-09 00:00: 00 Overview: Formattin g of this note might be different from the original. Added automatic ally from request for surgery [id number] [facility] Need for hepatitis C screening test Need for hepatitis C screening test Disease Active 2018-11 00:00: 00 [facility] Homeless Homeless Disease Active 2018-11 00:00: 00 [facility] Lesion of matthew Lesion of matthew Disease Active 2018-11 00:00: 00 [facility] Dyslipidem ia Dyslipidem ia Disease Active 2018-11 00:00: 00 [facility] Encounter for screening colonoscop y for non-high-r isk patient Encounter for screening colonoscop y for non-high-r isk patient Disease Active 2018-11 00:00: 00 [facility] 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 Disease Active 2018-11 00:00: 00 [facility] 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) Disease Active 2018-11 00:00: 00 [facility] 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) Disease Active 2018-11 00:00: 00 [facility] Erectile dysfunctio n due to type 2 diabetes mellitus Erectile dysfunctio n due to type 2 diabetes mellitus Disease Active 2018-11 00:00: 00 [facility] Obesity (BMI 30-39.9) Obesity (BMI 30-39.9) Disease Active 03-17 00:00: 00 [facility] Upper respirator y tract infection, unspecifie d type Upper respirator y tract infection, unspecifie d type Disease Resolve d 2018-11 00:00: 00 2021-07-15 00:00:00 2021-07-15 15:36:45 [facility] Allergies, Adverse Reactions, Alerts Allergy Name Allergy Type Status Severity Reaction(s) Onset Date Inactive Date Treating Clinician Comments Source NO KNOWN ALLERGIE S Drug Class Active [facility] Family History Family Member Diagnosis Comments Start Date Stop Date Sourc e Natural father Cancer [facility] Natural mother Cancer [facility] Social History Social Habit Start Date Stop Date Quantity Comments Source Gender identity Nathaniel ahn [facility] Sexual orientation M lucy [facility] History of Social function 2025-04-11 00:00:00 2025-04-11 00:00:00 [facility] Tobacco use and exposure 2025-04-10 00:00:00 2025-04-10 00:00:00 Smokeless tobacco non-user [facility] Alcoholic beverage intake 2025-04-10 00:00:00 2025-04-10 00:00:00 Lifetime non-drinker (finding) [facility] Alcohol intake 2024-02-11 00:00:00 2024-02-11 00:00:00 Current non-drinker of alcohol (finding) [facility] Exposure to SARS-CoV-2 (event) 2021-06-10 00:00:00 2021-07-10 10:13:00 Not sure [facility] Sex assigned at 1955 00:00:00 1955 00:00:00 [facility] Smoking Status Start Date Stop Date Source Tobacco smoking consumption unknown [facility] Never smoked tobacco Enmanuel mora [place] [facility] Medications Ordered Medication Name Filled Medication Name Start Date Stop Date Current Medication? Ordering Clinician Indication Dosage Frequency Signature (SIG) Comments Components Source ascorbic acid (Vitamin C) 250 MG tablet ascorbic acid (Vitamin C) 250 MG tablet 04-14 00:00: 00 05-14 23:59 :00 No 250mg QD Take 1 tablet by mouth 1 time each day. Enmanuel Recio [facility] zinc sulfate (Zincate) 220 (50 Zn) MG capsule zinc sulfate (Zincate) 220 (50 Zn) MG capsule 04-14 00:00: 00 05-14 23:59 :00 No 220mg QD Take 1 capsule by mouth 1 time each day. Enmanuel Recio [facility] metFORMIN XR (Glucophage -XR) 24 hr tablet 500 mg metFORMIN XR (Glucophage -XR) 24 hr tablet 500 mg 04-13 17:00: 00 Yes 500mg 500 mg, Oral, 2 times daily with meals, First dose on Thu04/13/25 at 1700, Do not crush, chew, or split. Enmanuel Recio Sean metFORMIN XR (Glucophage -XR) 500 MG 24 hr tablet metFORMIN XR (Glucophage -XR) 500 MG 24 hr tablet 04-13 00:00: 00 05-13 23:59 :00 No 137 500mg Take 1 tablet by mouth in the morning and 1 tablet in the evening. Take with meals. Do not crush, chew, or split. Enmanuel Recio Sean cephalexin (Keflex) 500 MG capsule cephalexin (Keflex) 500 MG capsule 04-13 00:00: 00 04-18 23:59 :00 No 500mg Q6H Take 1 capsule by mouth in the morning and 1 capsule at noon and 1 capsule in the evening and 1 capsule before bedtime. Do all this for 20 doses. Enmanuel Recio Sean Premier Protein Shake liquid 325 mL Premier Protein Shake liquid 325 mL 04-12 08:00: 00 Yes 1{bottl e} QD 325 mL (1 Bottle), Oral, Daily with breakfast, First dose on Thu04/12/25 at 0800 Enmanuel Recio [facility] ascorbic acid (Vitamin C) tablet 250 mg ascorbic acid (Vitamin C) tablet 250 mg 04-11 15:00: 00 Yes 250mg QD 250 mg, Oral, Daily, First dose on Thu04/11/25 at 1500 Enmanuel Recio [facility] zinc sulfate (Zincate) capsule 220 mg zinc sulfate (Zincate) capsule 220 mg 04-11 15:00: 00 Yes 220mg QD 220 mg, Oral, Daily, First dose on Thu04/11/25 at 1500 Enmanuel Recio [facility] cephalexin (Keflex) capsule 500 mg cephalexin (Keflex) capsule 500 mg 04-11 15:00: 00 04-18 14:59 :00 No 500mg Q6H 500 mg, Oral, Every 6 hours, First dose on Thu04/11/25 at 1500, For 7 days, Suspected Indication (Select all that apply): Skin/Soft Tissue Infection Enmanuel Recio [facility] hydrALAZINE injection 10 mg hydrALAZINE injection 10 mg 04-11 05:30: 00 2025- 05-20 05:48 :00 No 10mg 10 mg, Intravenou s, Once, On Thu04/11/25 at 0530, For 1 dose Enmanuel Estrada sodium chloride (NS) 0.9 % flush 10 mL sodium chloride (NS) 0.9 % flush 10 mL 04-10 21:00: 00 Yes 10mL Q.5D 10 mL, Intravenou s, Every 12 hours scheduled, First dose on Thu04/10/25 at 2100, Administer at least once every 12 hours Enmanuel Estrada insulin lispro (HumaLOG, Admelog) injection 2-8 Units [id number] 6416-0 5-19 17:41: 41 Yes 2U [id number] 3D 2-8 Units, Subcutaneo us, 3 times daily PRN, high blood sugar, with meals, Starting on Thu04/10/25 at 1741, For BG < 70, follow hypoglycem ia protocol and notify ordering provider. If patient can eat or drink, give oral carbohydra te as ordered per hypoglycem ia protocol. If patient NPO, give dextrose 50 % IV as ordered per hypoglycem ia protocol. If NPO and no IV access, give glucagon IM as ordered per hypoglycem ia protocol. Check BG every 15 minutes and repeat treatment if continued BG < 80., Correction Insulin Dosing: (DO NOT CHANGE DEFAULT SELECTION/ VALUES): Starting, BG < 70 instructio ns: Follow Hypoglycem ia Orders, BG 70-149 instructio ns: No Dose Needed, BG 150-199: 2, BG 200-249: 4, BG 250-299: 6, BG >/= 300: 8, BG > 300 instructio ns: Contact Provider Enmanuel Estrada enoxaparin (Lovenox) syringe 40 mg enoxaparin (Lovenox) syringe 40 mg 04-10 17:00: 00 Yes 40mg 40 mg, Subcutaneo us, Every 24 hours, First dose on Thu04/10/25 at 1700, Indication s: VTE Prophylaxi s Enmanuel Estrada sodium chloride 0.9 % infusion sodium chloride 0.9 % infusion 04-10 17:00: 00 Yes 100mL/h 100 mL/hr, Intravenou s, Continuous , Starting on Thu04/10/25 at 1700 Enmanuel Estrada albumin human 25 % IV soln 25 g albumin human 25 % IV soln 25 g 04-10 17:00: 00 04-11 04:59 :00 No 25g Q6H 25 g, Intravenou s, at 100 mL/hr, Administer over 60 Minutes, Every 6 hours, First dose on Thu04/10/25 at 1700, For 2 doses, Indication for albumin: Thermal injury Enmanuel Recio Epic glucagon injection 1 mg glucagon injection 1 mg 04-10 16:58: 04 Yes 1mg 1 mg, Intramuscu lar, As needed, For BG < 70 mg/dL if no IV access and patient is either Unconsciou s, unable to swallow or npo, Starting on Thu04/10/25 at 1658, For BG < 70 mg/dL if no IV access and patient is either Unconsciou s, unable to swallow or npo and notify MD. Enmanuel Recio Epic dextrose 50 % solution 25 g dextrose 50 % solution 25 g 04-10 16:58: 04 Yes 25g 25 g, Intravenou s, As needed, other, if Blood Glucose </= 50 mg/dL, Starting on Thu04/10/25 at 1658, If BG </=50 mg/dL, give 50 mL of D50W IV push STAT and notify MD. Enmanuel Estrada dextrose 50 % solution 12.5 g dextrose 50 % solution 12.5 g 04-10 16:58: 04 Yes 12.5g 12.5 g, Intravenou s, As needed, low blood sugar, if Blood Glucose 51- 69 mg/dL, Starting on Thu04/10/25 at 1658, For BG 51-69 mg/dL and patient UNCONSCIOU S OR UNABLE TO SWALLOW OR NPO: Give 25 mL of D50W IV push and notify MD. Enmanuel Recio Epic sodium chloride (NS) 0.9 % flush 10 mL sodium chloride (NS) 0.9 % flush 10 mL 04-10 16:58: 04 Yes 10mL 10 mL, Intravenou s, As needed, line care, Line Flush, Starting on Thu04/10/25 at 1658 Enmanuel Estrada ondansetron (Zofran) injection 4 mg ondansetron (Zofran) injection 4 mg 04-10 16:57: 15 Yes 4mg Q6H 4 mg, Intravenou s, Every 6 hours PRN, nausea, vomiting, Starting on Thu04/10/25 at 1657 Enmanuel Estrada acetaminoph en (Tylenol) tablet 650 mg acetaminoph en (Tylenol) tablet 650 mg 04-10 16:57: 10 Yes 650mg Q4H 650 mg, Oral, Every 4 hours PRN, mild pain (1-3), fever, Temp >100.4 F, Starting on Thu04/10/25 at 1657, Max acetaminop hen = 4000mg/day (4gm/day) Enmanuel Estrada sodium chloride (NS) 0.9 % flush 10 mL sodium chloride (NS) 0.9 % flush 10 mL 04-10 14:15: 59 Yes 10mL [Order 1 Start] Name: Insert peripheral IV Signed Summary: Once, On Thu04/10/25 at 1416, For 1 occurrence [Order 1 End] [Order 2 Start] Name: Saline lock IV Signed Summary: Once, On Thu04/10/25 at 1416, For 1 occurrence [Order 2 End] [Order 3 Start] Name: sodium chloride (NS) 0.9 % flush 10 mL Signed Summary: 10 mL, Intravenou s, As needed, line care, Starting on Thu04/10/25 at 1415 [Order 3 End] Enmanuel Estrada NovoLIN N RELION 100 UNIT/ML injection NovoLIN N RELION 100 UNIT/ML injection 04-06 00:00: 00 04-13 00:00 :00 No 40U Inject 40 Units under the skin at bedtime. Enmanuel Estrada furosemide (Lasix) injection 20 mg furosemide (Lasix) injection 20 mg 04-04 11:40: 00 Yes 20mg 20 mg, Intravenou s, Once, On Thu04/04/25 at 1140, For 1 dose Enmanuel Estrada furosemide (Lasix) 20 MG tablet furosemide (Lasix) 20 MG tablet 04-04 00:00: 00 04-04 00:00 :00 Yes 20mg QD Take 1 tablet by mouth 1 time each day. Enmanuel Estrada HYDROcodone -acetaminop hen (NORCO) 10-325 mg tablet 1 tablet 12-28 13:45: 00 12-28 12:39 :00 No 1{tbl} 1 tablet, Oral, ONCE NOW, 1 dose, On Thu12/28/24 at 0745, Routine [facility] ibuprofen 800 mg tablet 12-28 00:00: 00 Yes [id number] 800mg Take 1 tablet by mouth every 8 (eight) hours as needed for Pain (scale 4-6). [facility] insulin regular (NovoLIN R) 100 UNIT/ML injection insulin regular (NovoLIN R) 100 UNIT/ML injection 2023-11 00:00: 00 04-13 00:00 :00 No Inject under the skin in the morning and at noon and in the evening. Inject with meals. Per sliding scale. Enmanuel Estrada mupirocin (BACTROBAN OINT) 2 % oinintment 2023-11 0 19:00: 00 Yes [facility] Sl[facility] Insulin - Lispro (HumaLOG) 2023-11 17:00: 00 Yes Subcutaneo us, TID MEALS+HS, First dose on Thu08/25/24 at 1200, Until Discontinu ed, Routine [facility] metFORMIN (GLUCOPHAGE ) tablet 500 mg 2023-11 17:00: 00 Yes 500mg 500 mg, Oral, BID MEALS, First dose on Thu08/25/24 at 1200, Until Discontinu ed, Routine [facility] atorvastati n (LIPITOR) tablet 20 mg 2023-11 0 02:00: 00 Yes 20mg 20 mg, Oral, QHS, First dose on Thu08/24/24 at 2100, Until Discontinu ed [facility] mupiro[facility] 2 % ointment 2023-11 0 00:00: 00 Yes [id number] Apply to area(s) 3 (three) times daily. [facility] lisinopriL- hydrochloro thiazide 10-12.5 mg per tablet 2023-11 0- 00:00: 00 09-25 04:59 :00 No [id number] 1{tbl} Take 1 tablet by mouth in the morning for 30 days. [facility] furosemide 20 mg tablet 2023-11 00:00: 00 09-25 04:59 :00 No [id number] 20mg Take 1 tablet by mouth in the morning for 30 days. [facility] aspirin 81 mg EC tablet 2023-11 00:00: 00 09-25 04:59 :00 No [id number] 81mg Take 1 tablet by mouth in the morning for 30 days. [facility] gabapentin (NEURONTIN) 100 mg capsule 2023-11 00:00: 00 09-25 04:59 :00 No [id number] 200mg Take 2 capsules by mouth in the morning and 2 capsules at noon and 2 capsules in the evening. Do all this for 30 days. [facility] metFORMIN 1,000 mg tablet 2023-11 00:00: 00 09-25 04:59 :00 No [id number] 1000mg Take 1 tablet by mouth in the morning and 1 tablet in the evening. Take with meals. Do all this for 30 days. [facility] simvastatin 40 mg tablet 2023-11 00:00: 00 09-25 04:59 :00 No [id number] 40mg Take 1 tablet by mouth at bedtime for 30 days. [facility] gabapentin (NEURONTIN) capsule 200 mg 2023-11 19:00: 00 Yes 200mg 200 mg, Oral, TID, First dose (after last modificati on) on Thu08/24/24 at 1400, Until Discontinu ed, Routine [facility] D10W 10 % IV infusion 2023-11 17:00: 00 08-25 00:50 :56 No at 50 mL/hr, IV Infusion, CONTINUOUS , Starting on Thu08/24/24 at 1200, Until Thu08/24/24 at 1950, Routine [facility] D10W 10 % IV infusion 2023-11 15:45: 00 08-24 16:52 :00 No at 100 mL/hr, IV Infusion, CONTINUOUS , Starting on Thu08/24/24 at 1045, Until Thu08/24/24 at 1152, Routine [facility] lisinopriL (PRINIVIL,Z ESTRIL) tablet 10 mg 2023-11 14:00: 00 Yes 10mg 10 mg, Oral, DAILY, First dose on Thu08/24/24 at 0900, Until Discontinu ed, Routine [facility] aspirin EC tablet 81 mg 2023-11 14:00: 00 Yes 81mg 81 mg, Oral, DAILY, First dose on Thu08/24/24 at 0900, Until Discontinu ed, [facility] hydroCHLORO thiazide (ESIDRIX) tablet 12.5 mg 2023-11 14:00: 00 08-24 13:33 :00 No 12.5mg 12.5 mg, Oral, DAILY, 1 dose, First dose on Thu08/24/24 at 0900, Routine [facility] furosemide (LASIX) injection 40 mg 2023-11 05:00: 00 Yes 40mg 40 mg, Slow IV Push, DAILY, First dose on Thu08/24/24 at 0000, Until Discontinu ed, Routine [facility] gabapentin (NEURONTIN) capsule 100 mg 2023-11 01:00: 00 08-24 17:10 :41 No 100mg 100 mg, Oral, TID, First dose on Thu08/23/24 at 2000, Until Discontinu ed, Routine [facility] HYDROcodone -acetaminop hen (NORCO 5) tablet 1 tablet 2023-11 00:38: 38 Yes 1{tbl} 1 tablet, Oral, Q6HPRN, Starting on Thu08/23/24 at 1938, Until Discontinu ed, Routine, Pain (scale 7-10) [facility] tiZANidine (ZANAFLEX) tablet 4 mg 2023-11 00:38: 06 Yes 4mg [facility] enoxaparin (LOVENOX) injection 40 mg 2023-11 22:00: 00 Yes 40mg 40 mg, Subcutaneo us, DAILY, First dose on Thu08/23/24 at 1700, Until Discontinu ed, Routine [facility] D10W 10 % IV infusion 2023-11 21:45: 00 08-24 15:36 :54 No at 200 mL/hr, IV Infusion, CONTINUOUS , Starting on Thu08/23/24 at 1645, Until Thu08/24/24 at 1036, Routine [facility] D10W 10 % IV infusion 2023-11 17:00: 00 08-23 21:34 :55 No at 150 mL/hr, IV Infusion, CONTINUOUS , Starting on Thu08/23/24 at 1200, Until Thu08/23/24 at 1634, Routine [facility] glucagon HCL injection 1 mg 2023-11 16:36: 57 Yes 1mg 1 mg, Intramuscu lar, PRN, Starting on Thu08/23/24 at 1136, Until Discontinu ed, RICHARD, Low blood sugar, Blood Glucose < or = 70 mg/dL and patient is NPO, unable to swallow or has mental changes. [facility] dextrose 50 % in water (D50W) injection 25 mL 2023-11 16:36: 57 Yes 25mL 25 mL, Slow IV Push, PRN, Starting on Thu08/23/24 at 1136, Until Discontinu ed, RICHARD, Blood Glucose < or = 70 mg/dL and patient is NPO, unable to swallow or has mental status changes. [facility] dextrose 50 % in water (D50W) injection 50 mL 2023-11 16:00: 00 08-23 15:54 :00 No 50mL 50 mL, Intravenou s, ONCE, 1 dose, On Thu08/23/24 at 1100, STAT [facility] dextrose 50 % in water (D50W) injection 25 mL 2023-11 14:45: 08-23 14:41 :00 No 25mL 25 mL, Slow IV Push, ONCE, 1 dose, On Thu08/23/24 at 0945, STAT [facility] insulin NPH (HUMULIN N NPH U-100 INSULIN) 100 unit/mL injection 07-01 00:00: 00 08-01 04:59 :00 No [id number] 20U inject 20 Units under the skin 2 (two) times daily before breakfast and dinner for 30 days. [facility] amoxicillin -clavulanat e 875-125 mg per tablet 07-01 00:00: 00 07-23 04:59 :00 No [id number] 1{tbl} Take 1 tablet by mouth every 12 (twelve) hours for 21 days. [facility] amoxicillin -clavulanat e (AUGMENTIN) 875-125 mg per tablet 1 tablet 06-28 19:30: 00 07-02 12:59 :00 No 1{tbl} 1 tablet, Oral, Q12H, 8 doses, First dose on Thu06/28/24 at 1430, Last dose on Thu07/01/24 at 2000, Routine, Reason for Anti-Infec tive: Documented Infection, Documented Infection Site: Urine, Duration of Therapy: 7 days [facility] rifAMPin (RIFADIN) capsule 300 mg 06-28 17:15: 00 06-28 19:42 :55 No 300mg 300 mg, Oral, Q8H, First dose on Thu06/28/24 at 1215, Until Discontinu ed, RICHARD, Reason for Anti-Infec tive: Documented Infection, Documented Infection Site: Blood, Duration of Therapy: 7 days [facility] cefTRIAXone (ROCEPHIN) 1,000 mg in NaCl 0.9% (NS) 100 mL MINI-BAG 06-28 03:00: 00 06-28 19:17 :32 No 1000mg 1,000 mg, IV Piggyback, Q24H ABX, 7 doses, First dose on Thu06/27/24 at 2200, Last dose on Thu07/03/24 at 2200, Administer over 30 Minutes, 100 mL, Reason for Anti-Infec tive: Documented Infection, Documented Infection Site: Urine, Duration of Therapy: 7 days [facility] NaCl 0.9% (NS) IV infusion 1,000 mL 06-27 19:00: 00 06-29 06:11 :11 No 1000mL at 50 mL/hr, IV Infusion, CONTINUOUS , Starting on Thu06/27/24 at 1400, Until Thu06/29/24 at 0111, Routine, KVO [facility] Saline Bubble Study 06-27 18:24: 13 Yes [id number] 6mL 6 mL, Injection, SEE-INSTRU CTIONS, Starting on Thu06/27/24 at 1324, Until Discontinu ed, Routine [facility] vancomycin (VANCOCIN) 1,000 mg in [...] Site: Blood, Duration of Therapy: 7 days [facility] NaCl 0.9% (NS) injection 10 mL 06-27 15:11: 58 Yes 10mL 10 mL, Slow IV Push, PRN, Starting on Thu06/27/24 at 1011, Until Discontinu ed, Routine, line maintenanc e [facility] lidocaine 1% (PF) (XYLOCAINE) injection 5 mL 06-27 15:11: 58 06-27 15:45 :00 No 5mL 5 mL, Subcutaneo us, PRN, 1 dose, Starting on Thu06/27/24 at 1011, Until Thu06/27/24 at 1045, Routine, Local anesthesia [facility] magnesium sulfate in D5W 1 gram/100 mL RTU IV Piggyback 1 g 06-26 15:15: 00 06-26 16:55 :00 No 1g 1 g, IV Piggyback, ONCE, 1 dose, On Thu06/26/24 at 1015, Administer over 60 Minutes, 100 mL [facility] lisinopriL (PRINIVIL,Z ESTRIL) tablet 20 mg 06-26 13:00: 00 Yes 20mg 20 mg, Oral, BID, First dose (after last modificati on) on Thu06/26/24 at 0800, Until Discontinu ed, Routine [facility] hydralAZINE (APRESOLINE ) injection 10 mg 06-26 12:45: 32 Yes 10mg 10 mg, Slow IV Push, Q4HPRN, Starting on Thu06/26/24 at 0745, Until Discontinu ed, Routine, DBP=>100; SBP=>160 [facility] lisinopriL (PRINIVIL,Z ESTRIL) tablet 20 mg 06-25 14:00: 00 06-26 12:45 :20 No 20mg 20 mg, Oral, DAILY, First dose (after last modificati on) on Thu06/25/24 at 0900, Until Discontinu ed, Routine [facility] atorvastati n (LIPITOR) tablet 40 mg 06-25 02:00: 00 Yes 40mg 40 mg, Oral, QHS, First dose on Thu06/24/24 at 2100, [facility] lisinop[facility] (PRINIVIL,Z ESTRIL) tablet 10 mg 06-24 20:45: 00 06-25 00:21 :41 No 10mg 10 mg, Oral, DAILY, First dose on Thu06/24/24 at 1545, Until Discontinu ed, [facility] vancom[facility] 1,250 mg in NaCl 0.9% (NS) 250 mL VIAL-MATE IV piggyback 06-24 15:30: 00 06-27 14:18 :02 No 1250mg 1,250 mg, IV Piggyback, Q12H ABX, First dose on Thu06/24/24 at 1030, Until Discontinu ed, Administer over 90 Minutes, 250 mL, Reason for Anti-Infec tive: Documented Infection, Documented Infection Site: Blood, Duration of Therapy: 7 days [facility] furosemide (LASIX) tablet 20 mg 06-24 14:00: 00 Yes 20mg 20 mg, Oral, DAILY, First dose on Thu06/24/24 at 0900, Until Discontinu ed, Routine [facility] aspirin EC tablet 81 mg 06-24 14:00: 00 Yes 81mg 81 mg, Oral, DAILY, First dose on Thu06/24/24 at 0900, Until Discontinu ed, Routine [facility] gabap[facility] (NEURONTIN) capsule 100 mg 06-24 13:00: 00 Yes 100mg 100 mg, Oral, TID, First dose on Thu06/24/24 at 0800, Until Discontinu ed, Routine [facility] insulin NPH (HUMULIN N) injection 20 Units 06-24 12:30: 00 Yes 20U 20 Units, Subcutaneo us, BIDAC, First dose on Thu06/24/24 at 0730, Until Discontinu ed, Routine [facility] tiZANidine (ZANAFLEX) tablet 4 mg 06-24 12:28: 17 Yes 4mg [facility] ondansetron (ZOFRAN (PF)) injection 4 mg 06-24 09:32: 26 Yes 4mg 4 mg, Slow IV Push, Q6HPRN, Nausea and Vomiting (N/V), Starting on Thu06/24/24 at 0432, Doses of ondansetro n 16 mg and above need to be administer ed via IV piggyback. For Dose >=24mg ECG monitoring is advisable. [facility] enoxaparin (LOVENOX) injection 40 mg 06-23 22:00: 00 Yes 40mg 40 mg, Subcutaneo us, DAILY, First dose on Thu06/23/24 at 1700, Until Discontinu ed, Routine [facility] Sliding Scale Insulin - Lispro (HumaLOG) 06-23 22:00: 00 Yes Subcutaneo us, TID MEALS+HS, First dose on Thu06/23/24 at 1700, Until Discontinu ed, Routine [facility] cefTRIAXone (ROCEPHIN) 1,000 mg in [...] Site: Urine, Duration of therapy: 5 days [facility] acetaminoph en (TYLENOL) tablet 650 mg 06-23 19:05: 37 Yes 650mg 650 mg, Oral, Q6HPRN, Starting on Thu06/23/24 at 1405, Until Discontinu ed, Routine, Pain (scale 1-3) [facility] glucagon (GLUCAGEN DIAGNOSTIC KIT) injection 1 mg 06-23 19:03: 24 Yes 1mg 1 mg, Intramuscu lar, PRN, Starting on Thu06/23/24 at 1403, Until Discontinu ed, RICHARD, Blood Glucose < or = 70 mg/dL and patient is NPO, unable to swallow or has mental changes. [facility] dextrose 50 % in water (D50W) injection 25 mL 06-23 19:03: 24 Yes 25mL 25 mL, Slow IV Push, PRN, Starting on Thu06/23/24 at 1403, Until Discontinu ed, RICHARD, Blood Glucose < or = 70 mg/dL and patient is NPO, unable to swallow or has mental status changes. [facility] vancomycin (VANCOCIN) 1,500 mg in [...] Site: Blood, Duration of Therapy: Once (ED) [facility] cephALEXin (KEFLEX) capsule 1,000 mg 06-20 17:00: 00 06-20 17:01 :00 No 1000mg 1,000 mg, Oral, ONCE, 1 dose, On Thu06/20/24 at 1200, RICHARD, Reason for Anti-Infec tive: Documented Infection, Documented Infection Site: Skin / Soft Tissue, Duration of Therapy: Once (ED) [facility] neomycin-ba citracin-po lymyxin 3.5mg-400 unit- 5,000 unit/gram topical ointment 06-20 00:00: 00 08-23 00:00 :00 No [id number] Apply to area(s) 4 (four) times daily. [facility] cephALEXin 500 mg capsule 06-20 00:00: 00 07-01 00:00 :00 No [id number] 500mg Take 1 capsule by mouth 4 (four) times daily. [facility] ketorolac (TORADOL) injection 15 mg 06-19 19:30: 00 06-19 18:25 :00 No 15mg 15 mg, Slow IV Push, ONCE, 1 dose, On Thu06/19/24 at 1430, RICHARD [facility] cefTRIAXone (ROCEPHIN) 1,000 mg in NaCl 0.9% (NS) 100 mL MINI-BAG 06-19 19:00: 00 06-19 19:49 :00 No 1000mg 1,000 mg, IV Piggyback, ONCE, 1 dose, On Thu06/19/24 at 1400, Administer over 30 Minutes, 100 mL, Reason for Anti-Infec tive: Empiric Therapy for Suspected Infection, Empiric Therapy Site: Urine, Duration of therapy: Once (ED) [facility] mupirocin 2 % ointment 06-19 00:00: 00 08-23 00:00 :00 No [id number] Apply to area(s) 3 (three) times daily. [facility] furosemide (LASIX) tablet 40 mg 06-17 00:30: 00 06-16 23:47 :00 No 40mg 40 mg, Oral, ONCE, 1 dose, On Thu06/16/24 at 1930, Routine [facility] acetaminoph en (TYLENOL) tablet 1,000 mg 06-16 23:45: 00 06-16 23:47 :00 No 1000mg 1,000 mg, Oral, ONCE NOW, 1 dose, On Thu06/16/24 at 1845, Routine [facility] insulin regular human (HUMULIN R) injection 5 Units 04-06 10:30: 00 04-06 09:38 :00 No 5U 5 Units, Subcutaneo us, ONCE, 1 dose, On Thu04/06/24 at 0530, Routine, Indication for insulin: Hyperglyce danae [facility] insulin regular human (HUMULIN R) injection 5 Units 04-06 09:30: 00 04-06 08:38 :00 No 5U 5 Units, Subcutaneo us, ONCE, 1 dose, On Thu04/06/24 at 0430, Routine, Indication for insulin: Hyperglyce danae [facility] ergocalcife rol (vitamin d2) (CALCIFEROL ) capsule 50,000 Units 04-06 09:00: 00 04-06 08:33 :00 No [id number] 50,000 Units, Oral, ONCE NOW, 1 dose, On Thu04/06/24 at 0400, Routine [facility] magnesium sulfate in water 2 gram/50 mL (4 %) infusion 2 g 04-06 08:45: 00 04-06 09:30 :00 No 2g 2 g, IV Piggyback, Administer over 60 Minutes, ONCE, 1 dose, On Thu04/06/24 at 0345, RICHARD [facility] thiamine (VITAMIN B1) injection 100 mg 04-06 08:00: 00 04-06 08:32 :00 No 100mg 100 mg, Slow IV Push, ONCE, 1 dose, On Thu04/06/24 at 0300, [facility] ceFAZolin (ANCEF) 1,000 mg in NaCl 0.9% (NS) 100 mL MINI-BAG 04-06 07:45: 00 04-06 07:30 :00 No 1000mg 1,000 mg, Intravenou s, ONCE, 1 dose, On Thu04/06/24 at 0245, Administer over 30 Minutes, 100 mL, Reason for Anti-Infec tive: Documented Infection, Documented Infection Site: Skin / Soft Tissue, Duration of Therapy: Once (ED) [facility] insulin regular human (HUMULIN R) injection 10 Units 04-06 07:30: 00 04-06 07:34 :00 No 10U 10 Units, Slow IV Push, ONCE, 1 dose, On Thu04/06/24 at 0230, STAT, Indication for insulin: Hyperglyce danae [facility] furosemide (LASIX) injection 40 mg 04-06 07:00: 00 04-06 06:59 :00 No 40mg 40 mg, IV Push, ONCE, 1 dose, On Thu04/06/24 at 0200, [facility] gabapentin (NEURONTIN) capsule 300 mg 04-06 07:00: 00 04-06 06:57 :00 No 300mg 300 mg, Oral, ONCE, 1 dose, On Thu04/06/24 at 0200, [facility] gabapentin (NEURONTIN) 100 mg capsule 04-06 00:00: 00 08-25 00:00 :00 No [id number] 100mg Take 1 capsule by mouth in the morning and 1 capsule at noon and 1 capsule in the evening. [facility] furosemide 20 mg tablet 04-06 00:00: 00 07-01 00:00 :00 No [id number] 20mg Take 1 tablet by mouth every morning. [facility] cephALEXin 500 mg capsule 04-06 00:00: 00 07-01 00:00 :00 No [id number] 500mg Take 1 capsule by mouth 4 (four) times daily. [facility] mupirocin 2 % ointment 04-06 00:00: 00 07-01 00:00 :00 No [id number] Apply to area(s) 3 (three) times daily. [facility] NaCl 0.9% (NS) bolus infusion 500 mL 04-03 21:15: 00 04-03 22:05 :00 No 500mL at 999 mL/hr, 500 mL, IV Infusion, ONCE, 1 dose, On 04/03/24 at 1615, [facility] magnesium sulfate in water 2 gram/50 mL (4 %) infusion 2 g 04-03 17:45: 00 04-03 19:00 :00 No 2g 2 g, IV Piggyback, Administer over 60 Minutes, ONCE, 1 dose, On 04/03/24 at 1245, Routine [facility] NaCl 0.9% (NS) bolus infusion 500 mL 04-03 16:00: 00 04-03 16:30 :00 No 500mL at 999 mL/hr, 500 mL, IV Infusion, ONCE, 1 dose, On 04/03/24 at 1100, [facility]amin[facility] (TYLENOL) tablet 650 mg 04-03 15:15: 04-03 15:46 :00 No 650mg 650 mg, Oral, ONCE, 1 dose, On 04/03/24 at 1015, RICHARD [facility] piperacilli n-tazobacta m (ZOSYN) 3.375 g in NaCl 0.9% (NS) 100 mL VIAL-MATE 04-03 15:15: 00 04-03 16:19 :00 No 3.375g 3.375 g, IV Piggyback, ONCE, 1 dose, On 04/03/24 at 1015, Administer over 30 Minutes, 100 mL, Reason for Anti-Infec tive: Documented Infection, Documented Infection Site: Skin / Soft Tissue, Duration of Therapy: Once (ED) [facility] doxycycline hyclate 100 mg capsule 04-03 00:00: 00 07-01 00:00 :00 No [id number] 100mg Take 1 capsule by mouth in the morning and 1 capsule in the evening. [facility] insulin regular human (HUMULIN R) injection 10 Units 03-31 21:45: 00 03-31 23:18 :00 No 10U 10 Units, Slow IV Push, ONCE, 1 dose, On Thu03/31/24 at 1645, STAT, Indication for insulin: Hyperglyce [facility] acetaminoph en (TYLENOL) tablet 650 mg 03-29 21:15: 00 03-29 22:29 :00 No 650mg 650 mg, Oral, ONCE, 1 dose, On Thu03/29/24 at 1615, RICHARD [facility] NaCl 0.9% (NS) bolus infusion 500 mL 03-22 16:30: 00 03-22 21:50 :00 No 500mL at 999 mL/hr, 500 mL, IV Infusion, ONCE, 1 dose, On Thu03/22/24 at 1130, RICHARD [facility] NaCl 0.9% (NS) bolus infusion 1,000 mL 03-12 03:30: 00 03-12 04:43 :00 No 1000mL at 999 mL/hr, 1,000 mL, IV Infusion, ONCE, 1 dose, On Thu03/11/24 at 2230, STAT [facility] insulin regular human (HUMULIN R) injection 10 Units 03-12 03:30: 00 03-12 02:40 :00 No 10U 10 Units, IV Push, ONCE, 1 dose, On Thu03/11/24 at 2230, RICHARD
In dication for insulin: Hyperglyce [facility] NaCl 0.9% (NS) bolus infusion 1,000 mL 03-12 02:45: 00 03-12 03:00 :00 No 1000mL at 999 mL/hr, 1,000 mL, IV Infusion, ONCE, 1 dose, On Thu03/11/24 at 2145, STAT [facility] meclizine (TRAVEL-EAS E (MECLIZINE) ) tablet 25 mg 02-09 17:15: 00 02-09 17:17 :00 No 25mg 25 mg, Oral, ONCE, 1 dose, On Thu02/10/24 at 1215, RICHARD [facility] ketorolac (TORADOL) injection 15 mg 02-08 20:00: 00 02-08 20:42 :00 No 15mg 15 mg, Intramuscu lar, ONCE, 1 dose, On Thu02/09/24 at 1500, Routine [facility] methocarbam oL (ROBAXIN) tablet 1,000 mg 02-08 19:15: 00 02-08 20:43 :00 No 1000mg 1,000 mg, Oral, ONCE, 1 dose, On Thu02/09/24 at 1415, RICHARD [facility] cyclobenzap rine (FLEXERIL) tablet 10 mg 02-05 15:30: 00 02-05 15:14 :00 No 10mg 10 mg, Oral, ONCE, 1 dose, On 02/06/24 at 1030, Routine [facility] cyclobenzap rine 10 mg tablet 02-05 00:00: 00 02-11 04:59 :00 No [id number] 10mg Take 1 tablet by mouth in the morning and 1 tablet at noon and 1 tablet in the evening. Do all this for 15 doses. [facility] dicyclomine (BENTYL) tablet 20 mg 01-29 20:45: 00 01-29 20:51 :00 No 20mg 20 mg, Oral, ONCE, 1 dose, On 01/30/24 at 1445, [facility] methocarbam [facility] (ROBAXIN) tablet 1,000 mg 01-29 19:15: 00 01-29 19:06 :00 No 1000mg 1,000 mg, Oral, ONCE, 1 dose, On 01/30/24 at 1315, RICHARD [facility] ketorolac (TORADOL) tablet 10 mg 01-29 17:45: 00 01-29 17:01 :00 No 10mg 10 mg, Oral, ONCE, 1 dose, On 01/30/24 at 1145, Routine [facility] tiZANidine 4 mg tablet 01-29 00:00: 00 08-25 00:00 :00 No [id number] 4mg Take 1 tablet by mouth every 6 (six) hours as needed for Pain (scale 7-10). [facility] dicyclomine 20 mg tablet 01-29 00:00: 00 07-01 00:00 :00 No [id number] 20mg Take 1 tablet by mouth 4 (four) times daily as needed for Abdominal pain. [facility] ibuprofen (IBU) tablet 600 mg 01-15 03:30: 00 01-15 03:42 :00 No 600mg 600 mg, Oral, ONCE, 1 dose, On Sheree 01/14/24 at 2130, [facility] methocarbam oL (ROBAXIN) tablet 750 mg 01-15 03:26: 00 01-15 03:42 :00 No 750mg 750 mg, Oral, ONCE NOW, 1 dose, On Sheree 01/14/24 at 2130, [facility] LISINOPRIL- HYDROCHLORO THIAZIDE 10-12.5 mg per tablet 02-17 00:00: 00 08-25 00:00 :00 No [id number] Take 1 tablet by mouth once daily [facility] blood sugar diagnostic (TRUE METRIX GLUCOSE TEST STRIP) strip 2020-11 00:00: 00 Yes [id number] Monitor Blood Glucose daily [facility] lancets (TRUEPLUS LANCETS) 33 gauge Misc 2020-11 00:00: 00 Yes [id number] Monitor Blood Glucose daily [facility] Alcohol Swabs (BD SINGLE USE SWABS REGULAR) PadM 2020-11 00:00: 00 Yes [id number] Apply to area(s) daily. Monitor Blood Glucose daily [facility] simvastatin 40 mg tablet 2020-11 00:00: 00 08-25 00:00 :00 No [id number] 40mg Take 1 tablet by mouth at bedtime. [facility] furosemide 20 mg tablet 2020-11 00:00: 08-25 00:00 :00 No [id number] 20mg Take 1 tablet by mouth daily. [facility] SIMVASTATIN 40 mg tablet 2020-11 00:00: 00 Yes [id number] 40mg TAKE 1 TABLET BY MOUTH AT BEDTIME [facility] furosemide 20 mg tablet 07-10 00:00: 00 Yes [id number] 20mg Take 1 tablet by mouth every Thursday, and Thursday in the evening. [facility] metFORMIN 1,000 mg tablet 07-10 00:00: 00 08-25 00:00 :00 No [id number] 1000mg Take 1 tablet by mouth 2 (two) times daily with meals. [facility] insulin NPH (HUMULIN N NPH U-100 INSULIN) 100 unit/mL injection 07-10 00:00: 00 07-01 00:00 :00 No [id number] INJECT 35 UNITS SUBCUTANEO USLY EVERY MORNING AND EVENING. Office visit needed for further refills. [facility] lisinopriL- hydrochloro thiazide 10-12.5 mg per tablet 07-10 00:00: 00 02-17 00:00 :00 No [id number] 1{tbl} Take 1 tablet by mouth daily. [facility] simvastatin (ZOCOR) 40 mg tablet 07-10 00:00: 00 10-04 00:00 :00 No [id number] 40mg Take 1 tablet by mouth at bedtime. [facility] insulin NPH (HUMULIN N NPH U-100 INSULIN) 100 unit/mL injection 06-19 00:00: 00 07-10 00:00 :00 No [id number] INJECT 35 UNITS SUBCUTANEO USLY EVERY MORNING AND EVENING. Office visit needed for further refills. [facility] HUMULIN N NPH U-100 INSULIN 100 unit/mL injection 05-21 00:00: 00 Yes [id number] INJECT 35 UNITS SUBCUTANEO USLY IN THE MORNING AND IN THE EVENING [facility] furosemide 20 mg tablet 02-15 00:00: 00 07-10 00:00 :00 No [id number] 20mg Take 1 tablet by mouth every Thursday, and Thursday in the evening. [facility] sildenafiL 50 mg tablet 02-14 00:00: 00 07-01 00:00 :00 No [id number] 50mg Take 1 tablet by mouth as needed (Erectile dysfunctio n). Take 50mg x 1, about 30 mins - 4 hours prior to sexual activity. [facility] insulin NPH (HUMULIN N NPH U-100 INSULIN) 100 unit/mL injection 02-14 00:00: 00 05-21 00:00 :00 No [id number] INJECT 35 UNITS SUBCUTANEO USLY IN THE MORNING AND IN THE EVENING [facility] HUMULIN N NPH U-100 INSULIN 100 unit/mL injection 02-10 00:00: 00 02-14 00:00 :00 No [id number] INJECT 35 UNITS SUBCUTANEO USLY IN THE MORNING AND IN THE EVENING [facility] 00:[facility]: 00 Yes [id number] E11.8: dispense Insulin Syringe 31 gauge brand covered by insurance. Monitor Blood Sugar at Home BID [facility] 02-06 00:00: 00 07-01 00:00 :00 No [id number] E11.8: dispense Insulin Syringe 31 gauge brand covered by insurance. Monitor Blood Sugar at Home BID [facility] Insulin Syringe-Nee dle U-100 1 mL 27 gauge x 1/2" Syrg 3- 00:00: 00 Yes [id number] [facility] as [facility] Syringe-Nee dle U-100 1 mL 27 gauge x 1/2" Syr 3- 00:00: 00 Yes [id number] Use as directed [facility] Syringe-Nee dle U-100 1 mL 27 gauge x 1/2" [facility] 3- 00:00: 00 Yes [id number] Use as directed [facility] Insulin [place], Disposable, (PHUC PEN NEEDLE) 32 gauge x 5/32" [facility] 3- 00:00: 00 Yes [id number] Use as directed [facility] [place], Disposable, (PHUC PEN NEEDLE) 32 gauge x 5/32" [facility] 3- 00:00: 00 Yes [id number] Use as directed [facility] [place], Disposable, (PHUC PEN NEEDLE) 32 gauge x 5/32" [facility] 3 00:00: 00 Yes [id number] Use as directed [facility]ulin [place], Disposable, (PHUC PEN NEEDLE) 32 gauge x 5/32" [facility] 07-09 00:00: 00 Yes [id number] Use as directed [facility] aspirin 81 mg EC tablet 07-09 00:00: 00 08-25 00:00 :00 No [id number] 81mg Take 1 tablet by mouth daily. [facility] potassium chloride 10 mEq CR tablet 07-09 00:00: 00 08-23 00:00 :00 No [id number] 10meq Take 1 tablet by mouth every Thursday, and Thursday in the evening. [facility] lisinopril 10 mg tablet 07-09 00:00: 00 07-10 00:00 :00 No [id number] 10mg Take 1 tablet by mouth daily. [facility] simvastatin (ZOCOR) 40 mg tablet 07-09 00:00: 00 07-10 00:00 :00 No [id number] 40mg Take 1 tablet by mouth at bedtime. [facility] metFORMIN 1,000 mg tablet 07-09 00:00: 07-10 00:00 :00 No [id number] 1000mg Take 1 tablet by mouth 2 (two) times daily with meals. [facility] furosemide 20 mg tablet 07-09 00:00: 00 02-14 00:00 :00 No [id number] 20mg Take 1 tablet by mouth every Thursday, and Thursday in the evening. [facility] insulin NPH 100 unit/mL injection 07-09 00:00: 00 02-10 00:00 :00 No [id number] 35U inject 35 Units under the skin every morning and evening. [facility] potassium chloride 10 mEq CR tablet 04-13 00:00: 00 07-09 00:00 :00 No [id number] 10meq Take 1 tablet by mouth every Thursday, and Thursday in the evening. [facility] furosemide 20 mg tablet 04-13 00:00: 07-09 00:00 :00 No [id number] 20mg Take 1 tablet by mouth every Thursday, and Thursday in the evening. [facility] doxycycline hyclate 100 mg tablet 04-12 00:00: 00 07-09 00:00 :00 No [id number] 100mg Take 1 tablet by mouth 2 (two) times daily. [facility] diph,pertus (acel),teta nus (ADACEL) injection 0.5 mL 03-12 14:00: 00 03-13 01:59 :00 No .5mL 0.5 mL, Intramuscu lar, ONCE, 1 dose, Thu03/12/20 at 0900, Routine [facility] clindamycin 300 mg capsule 03-12 00:00: 00 03-23 04:59 :00 No [id number] 300mg Take 1 capsule by mouth 4 (four) times daily for 10 days. [facility] sildenafil 50 mg tablet 2020-0 4-07 00:00: 00 02-14 00:00 :00 No [id number] 50mg Take 1 tablet by mouth as needed (Erectile dysfunctio n). Take 50mg x 1, about 30 mins - 4 hours prior to sexual activity. [facility] metFORMIN 1,000 mg tablet 01-18 00:00: 00 07-09 00:00 :00 No [id number] 1000mg Take 1 tablet by mouth 2 (two) times daily with meals. [facility] ondansetron (ZOFRAN (PF)) injection 4 mg 12-30 17:29: 59 Yes 4mg 4 mg, Slow IV Push, PRN, 1 dose, Starting Thu12/30/19 at 1129, Until Discontinu ed, Routine, Nausea and Vomiting (N/V), PACU [facility] water for irrigation irrigation solution 12-30 16:20: 00 Yes PRN, Starting Thu12/30/19 at 1020, Until Discontinu ed, Routine, Intra-op [facility] simethicone (GAS RELIEF (SIMETHICON E)) 40 mg/0.6 mL drops 12-30 16:19: 00 Yes PRN, Starting Thu12/30/19 at 1019, Until Discontinu ed, Routine, Intra-op [facility] NaCl 0.9% (NS) IV infusion 1,000 mL 12-30 13:45: 00 Yes 1000mL at 42 mL/hr, IV Infusion, CONTINUOUS , Starting Thu12/30/19 at 0745, Until Discontinu ed, Routine, DSU Pre-op [facility] peg-electro lyte soln [id number] gram solution 11-30 00:00: 00 07-01 00:00 :00 No Take as directed [facility] prednisoLON E acetate 1 % ophthalmic suspension drops 2018-11 00:00: 00 Yes [id number] 1[drp] Place 1 Drop in right eye 4 (four) times daily. [facility] ofloxacin (OCUFLOX) 0.3 % ophthalmic solution 2018-11 00:00: 00 Yes [id number] 1[drp] Place 1 Drop in right eye 3 (three) times daily. [facility] aspirin 81 mg EC tablet 2018-11 00:00: 00 07-09 00:00 :00 No [id number] 81mg Take 1 tablet by mouth daily. [facility] Insulin [place], Disposable, (PHUC PEN NEEDLE) 32 gauge x 5/32" Ndle 2018-11 00:00: 00 07-09 00:00 :00 No [id number] Use as directed [facility] lactobacill us comb no.10 (PROBIOTIC) 20 billion cell Cap 06-10 00:00: 00 07-09 00:00 :00 No [id number] 1{capsu le} Take 1 capsule by mouth 2 (two) times daily. [facility] simvastatin (ZOCOR) 40 mg tablet 05-30 00:00: 07-09 00:00 :00 No [id number] 40mg Take 1 tablet by mouth at bedtime. [facility] lisinopril 10 mg tablet 05-30 00:00: 00 07-09 00:00 :00 No [id number] 10mg Take 1 tablet by mouth daily. [facility] insulin NPH 100 unit/mL injection 05-30 00:00: 00 07-09 00:00 :00 No [id number] 35U inject 35 Units under the skin every morning and evening. [facility] metFORMIN 500 mg tablet 05-30 00:00: 00 01-18 00:00 :00 No [id number] 500mg Take 1 tablet by mouth 2 (two) times daily with meals. [facility] Immunizations Ordered Immunization Name Filled Immunization Name Date Status Comments Source TD Pres-Free 2024-12-28 00:00:00 Completed [facility] TDAP 2024-07-04 00:00:00 Completed [facility] TDAP 2024-04-11 00:00:00 Completed [facility] TDAP 2024-04-06 01:32:00 Completed [facility] TDAP 2024-04-04 00:00:00 Completed [facility] TDAP 2024-04-03 09:43:00 Completed [facility] Vital Signs Vital Name Observation Time Observation Value Karlie frederick Heart rate 2025-04-13 08:16:43 55 /min [facility] Respiratory rate 2025-04-13 08:16:43 18 /[facility] saturation in Arterial blood by Pulse oximetry 2025-04-13 08:16:43 98 /min [facility] Systolic blood pressure 2025-04-13 08:16:39 108 mm[Hg] [facility] Epic Diastolic blood pressure 2025-04-13 08:16:39 76 mm[Hg] [facility] Body temperature 2025-04-13 08:16:18 37 Ginny [facility] Body height 2025-04-10 12:00:00 180.3 cm Nathaniel rial [facility] Epic Body weight 2025-04-10 12:00:00 90.719 kg Nathaniel rial [place] Epic BMI 2025-04-10 12:00:00 27.89 kg/m2 Nathaniel rial [place] Epic Heart rate 2025-04-13 08:16:43 55 /min [facility] Respiratory rate 2025-04-13 08:16:43 18 /min [facility] Oxygen saturation in Arterial blood by Pulse oximetry 2025-04-13 08:16:43 98 /min Henny Callahan [facility] Systolic blood pressure 2025-04-13 08:16:39 108 mm[Hg] [facility] khan Epic Diastolic blood pressure 2025-04-13 08:16:39 76 mm[Hg] [facility] Body temperature 2025-04-13 08:16:18 37 Ginny [facility] Hemal Epic Body height 2025-04-10 12:00:00 180.3 cm Nathaniel [facility] Epic Body weight 2025-04-10 12:00:00 90.719 kg Nathaniel [facility] Epic BMI 2025-04-10 12:00:00 27.89 kg/m2 [facility]iel [facility] [place] Epic Systolic blood pressure 2025-04-04 10:30:00 176 mm[Hg] [facility] Epic Diastolic blood pressure 2025-04-04 10:30:00 92 mm[Hg] [facility] Heart rate 2025-04-04 10:30:00 63 /min [facility] [place] Epic Respiratory rate 2025-04-04 10:30:00 16 /min [facility] Oxygen saturation in Arterial blood by Pulse oximetry 2025-04-04 10:30:00 100 /min [facility] Body temperature 2025-04-04 08:57:00 36.78 Ginny [facility] Body height 2025-04-04 07:42:00 177.8 cm Nathaniel danyl [place] [facility] Body weight 2025-04-04 07:42:00 90.719 kg Nathaniel rial [place] Epic BMI 2025-04-04 07:42:00 28.70 kg/m2 [facility]iel [facility] [place] Epic Systolic blood pressure 2025-04-04 10:30:00 176 mm[Hg] [facility] Diastolic blood pressure 2025-04-04 10:30:00 92 mm[Hg] [facility] Heart rate 2025-04-04 10:30:00 63 /min [facility] Respiratory rate 2025-04-04 10:30:00 16 /min [facility] Oxygen saturation in Arterial blood by Pulse oximetry 2025-04-04 10:30:00 100 /min [facility] Body temperature 2025-04-04 08:57:00 36.78 Ginny [facility] Body height 2025-04-04 07:42:00 177.8 cm Nathaniel rial [place] [facility] Body weight 2025-04-04 07:42:00 90.719 kg Nathaniel danyl [place] Epic BMI 2025-04-04 07:42:00 28.70 kg/m2 Nathaniel rial [place] Epic Systolic blood pressure 2024-12-28 13:00:00 172 mm[Hg] [facility] Diastolic blood pressure 2024-12-28 13:00:00 90 mm[Hg] [facility] Heart rate 2024-12-28 13:00:00 66 /min [facility] Respiratory rate 2024-12-28 13:00:00 13 /min [facility] Oxygen saturation in Arterial blood by Pulse oximetry 2024-12-28 13:00:00 96 /min [facility] Body temperature 2024-12-28 12:23:00 36.83 Ginny [facility] Body height 2024-12-28 12:23:00 177.8 cm [facility] Body weight 2024-12-28 12:23:00 90.719 kg [facility] BMI 2024-12-28 12:23:00 28.70 kg/m2 [facility] Systolic blood pressure 2024-12-21 17:18:00 130 mm[Hg] [facility] Diastolic blood pressure 2024-12-21 17:18:00 81 mm[Hg] [facility] Heart rate 2024-12-21 17:18:00 81 /min Unive [facility] Body temperature 2024-12-21 17:18:00 36.61 Ginny [facility] Respiratory rate 2024-12-21 17:18:00 19 /min [facility] Body height 2024-12-21 17:18:00 177.8 cm [facility] Body weight 2024-12-21 17:18:00 81.647 kg [facility] BMI 2024-12-21 17:18:00 25.83 kg/m2 [facility] Oxygen saturation in Arterial blood by Pulse oximetry 2024-12-21 17:18:00 100 /min [facility] Systolic blood pressure 2024-08-25 16:38:00 116 mm[Hg] [facility] Diastolic blood pressure 2024-08-25 16:38:00 66 mm[Hg] [facility] Heart rate 2024-08-25 16:38:00 67 /min [facility] Body temperature 2024-08-25 16:38:00 36.11 Ginny [facility] Respiratory rate 2024-08-25 16:38:00 13 /min [facility] Oxygen saturation in Arterial blood by Pulse oximetry 2024-08-25 16:38:00 99 /min [facility] Body weight 2024-08-25 09:00:00 90.6 kg [facility] BMI 2024-08-25 09:00:00 28.66 kg/m2 [facility] Body height 2024-08-23 20:19:00 177.8 cm [facility] Systolic blood pressure 2024-07-01 21:13:00 118 mm[Hg] [facility] Diastolic blood pressure 2024-07-01 21:13:00 65 mm[Hg] [facility] Heart rate 2024-07-01 21:13:00 63 /min Un[facility] Body temperature 2024-07-01 21:13:00 36.44 Ginny [facility] Respiratory rate 2024-07-01 21:13:00 16 /min [facility] Oxygen saturation in Arterial blood by Pulse oximetry 2024-07-01 21:13:00 99 /min [facility] Body weight 2024-07-01 08:26:00 89.994 kg [facility] BMI 2024-07-01 08:26:00 28.47 kg/m2 [facility] Body height 2024-06-23 21:39:00 177.8 cm [facility] Systolic blood pressure 2024-06-20 17:47:00 165 mm[Hg] [facility] Diastolic blood pressure 2024-06-20 17:47:00 83 mm[Hg] [facility] Heart rate 2024-06-20 17:47:00 81 /min Unive [facility] Body temperature 2024-06-20 17:47:00 37 Ginny [facility] Respiratory rate 2024-06-20 17:47:00 16 /min [facility] Oxygen saturation in Arterial blood by Pulse oximetry 2024-06-20 17:47:00 99 /min [facility] Body height 2024-06-20 15:58:00 177.8 cm [facility] Body weight 2024-06-20 15:58:00 91.627 kg [facility] BMI 2024-06-20 15:58:00 28.98 kg/m2 [facility] Systolic blood pressure 2024-06-19 21:30:00 138 mm[Hg] [facility] Diastolic blood pressure 2024-06-19 21:30:00 71 mm[Hg] [facility] Heart rate 2024-06-19 21:30:00 78 /min Unive [facility] Respiratory rate 2024-06-19 21:30:00 17 /min [facility] Oxygen saturation in Arterial blood by Pulse oximetry 2024-06-19 21:30:00 95 /min [facility] Body temperature 2024-06-19 17:34:00 36.72 Ginny [facility] Body height 2024-06-19 17:34:00 177.8 cm [facility] Body weight 2024-06-19 17:34:00 99.791 kg [facility] BMI 2024-06-19 17:34:00 31.57 kg/m2 [facility] Heart rate 2024-06-17 00:43:00 70 /min Un[facility] Respiratory rate 2024-06-17 00:43:00 17 /min [facility] Oxygen saturation in Arterial blood by Pulse oximetry 2024-06-17 00:43:00 97 /min [facility] Systolic blood pressure 2024-06-17 00:42:00 132 mm[Hg] [facility] Diastolic blood pressure 2024-06-17 00:42:00 76 mm[Hg] [facility] Body temperature 2024-06-17 00:42:00 36.44 Ginny [facility] Body height 2024-06-16 23:12:00 177.8 cm [facility] Body weight 2024-06-16 23:12:00 99.791 kg [facility] BMI 2024-06-16 23:12:00 31.57 kg/m2 [facility] Heart rate 2024-06-16 04:09:00 62 /min Unive [facility] Body temperature 2024-06-16 04:09:00 36.83 Ginny [facility] Respiratory rate 2024-06-16 04:09:00 13 /min [facility] Oxygen saturation in Arterial blood by Pulse oximetry 2024-06-16 04:09:00 97 /min [facility] Systolic blood pressure 2024-06-16 04:00:00 157 mm[Hg] [facility] Diastolic blood pressure 2024-06-16 04:00:00 75 mm[Hg] [facility] Body height 2024-06-15 23:01:00 177.8 cm [facility] Body weight 2024-06-15 23:01:00 99.791 kg [facility] BMI 2024-06-15 23:01:00 31.57 kg/m2 [facility] Heart rate 2024-04-06 10:11:00 72 /min [facility] Body temperature 2024-04-06 10:11:00 36.89 Ginny [facility] Respiratory rate 2024-04-06 10:11:00 16 /min [facility] Oxygen saturation in Arterial blood by Pulse oximetry 2024-04-06 10:11:00 99 /min [facility] Systolic blood pressure 2024-04-06 10:00:00 130 mm[Hg] [facility] Diastolic blood pressure 2024-04-06 10:00:00 74 mm[Hg] [facility] Body height 2024-04-06 06:52:00 177.8 cm [facility] Body weight 2024-04-06 06:52:00 99.791 kg [facility] BMI 2024-04-06 06:52:00 31.57 kg/m2 [facility] Systolic blood pressure 2024-04-03 21:45:00 164 mm[Hg] [facility] Diastolic blood pressure 2024-04-03 21:45:00 85 mm[Hg] [facility] Heart rate 2024-04-03 21:45:00 88 /min [facility] Respiratory rate 2024-04-03 21:45:00 16 /min [facility] Oxygen saturation in Arterial blood by Pulse oximetry 2024-04-03 21:45:00 96 /min [facility] Body temperature 2024-04-03 14:41:00 36.5 Ginny [facility] Systolic blood pressure 2024-04-01 00:04:00 132 mm[Hg] [facility] Diastolic blood pressure 2024-04-01 00:04:00 73 mm[Hg] [facility] Heart rate 2024-04-01 00:04:00 76 /min Un[facility] Respiratory rate 2024-04-01 00:04:00 18 /min [facility] Oxygen saturation in Arterial blood by Pulse oximetry 2024-04-01 00:04:00 98 /min [facility] Body height 2024-03-31 23:15:00 177.8 cm [facility] Body temperature 2024-03-31 17:35:00 36.72 Ginny [facility] Body weight 2024-03-31 17:35:00 99.791 kg [facility] BMI 2024-03-31 17:35:00 31.57 kg/m2 [facility] Systolic blood pressure 2024-03-29 21:38:00 135 mm[Hg] [facility] Diastolic blood pressure 2024-03-29 21:38:00 74 mm[Hg] [facility] Heart rate 2024-03-29 21:38:00 66 /min [facility] Body temperature 2024-03-29 21:38:00 36.72 Ginny [facility] Respiratory rate 2024-03-29 21:38:00 18 /min [facility] Oxygen saturation in Arterial blood by Pulse oximetry 2024-03-29 21:38:00 99 /min [facility] Body weight 2024-03-29 19:47:00 99.791 kg [facility] BMI 2024-03-29 19:47:00 31.57 kg/m2 [facility] Systolic blood pressure 2024-03-22 21:30:00 175 mm[Hg] [facility] Diastolic blood pressure 2024-03-22 21:30:00 90 mm[Hg] [facility] Heart rate 2024-03-22 21:30:00 84 /min [facility] Respiratory rate 2024-03-22 21:30:00 16 /min [facility] Oxygen saturation in Arterial blood by Pulse oximetry 2024-03-22 21:30:00 100 /min [facility] Body temperature 2024-03-22 14:55:00 36.94 Ginny [facility] Systolic blood pressure 2024-03-12 04:00:00 155 mm[Hg] [facility] Diastolic blood pressure 2024-03-12 04:00:00 103 mm[Hg] [facility] Heart rate 2024-03-12 04:00:00 92 /min Unive [facility] Respiratory rate 2024-03-12 04:00:00 18 /min [facility] Oxygen saturation in Arterial blood by Pulse oximetry 2024-03-12 04:00:00 98 /min [facility] Body temperature 2024-03-12 01:17:00 37.33 Ginny [facility] Body height 2024-03-12 01:17:00 177.8 cm [facility] Body weight 2024-03-12 01:17:00 99.791 kg [facility] BMI 2024-03-12 01:17:00 31.57 kg/m2 [facility] Systolic blood pressure 2024-02-10 19:50:00 158 mm[Hg] [facility] Diastolic blood pressure 2024-02-10 19:50:00 87 mm[Hg] [facility] Heart rate 2024-02-10 19:50:00 86 /min Un[facility] Respiratory rate 2024-02-10 19:50:00 18 /min [facility] Oxygen saturation in Arterial blood by Pulse oximetry 2024-02-10 19:50:00 96 /min [facility] Body temperature 2024-02-10 16:57:00 36.72 Ginny [facility] Body height 2024-02-10 16:57:00 177.8 cm [facility] Body weight 2024-02-10 16:57:00 99.791 kg [facility] BMI 2024-02-10 16:57:00 31.57 kg/m2 [facility] Systolic blood pressure 2024-02-09 22:00:00 143 mm[Hg] [facility] Diastolic blood pressure 2024-02-09 22:00:00 76 mm[Hg] [facility] Heart rate 2024-02-09 22:00:00 83 /min [facility] Respiratory rate 2024-02-09 22:00:00 16 /min [facility] Oxygen saturation in Arterial blood by Pulse oximetry 2024-02-09 22:00:00 100 /min [facility] Body temperature 2024-02-09 19:02:00 35.94 Ginny [facility] Body height 2024-02-09 19:02:00 177.8 cm [facility] Body weight 2024-02-09 19:02:00 99.791 kg [facility] BMI 2024-02-09 19:02:00 31.57 kg/m2 [facility] Systolic blood pressure 2024-02-06 14:26:00 163 mm[Hg] [facility] Diastolic blood pressure 2024-02-06 14:26:00 77 mm[Hg] [facility] Heart rate 2024-02-06 14:26:00 71 /min [facility] Body temperature 2024-02-06 14:26:00 36.61 Ginny [facility] Respiratory rate 2024-02-06 14:26:00 16 /min [facility] Body height 2024-02-06 14:26:00 165.1 cm [facility] Body weight 2024-02-06 14:26:00 99.791 kg [facility] BMI 2024-02-06 14:26:00 36.61 kg/m2 [facility] Oxygen saturation in Arterial blood by Pulse oximetry 2024-02-06 14:26:00 98 /min [facility] Systolic blood pressure 2024-01-30 16:05:00 150 mm[Hg] [facility] Diastolic blood pressure 2024-01-30 16:05:00 89 mm[Hg] [facility] Heart rate 2024-01-30 16:05:00 71 /min Un[facility] Body temperature 2024-01-30 16:05:00 37 Ginny [facility] Respiratory rate 2024-01-30 16:05:00 18 /min [facility] Body height 2024-01-30 16:05:00 177.8 cm [facility] Body weight 2024-01-30 16:05:00 100.699 kg [facility] BMI 2024-01-30 16:05:00 31.85 kg/m2 [facility] Oxygen saturation in Arterial blood by Pulse oximetry 2024-01-30 16:05:00 99 /min [facility] Systolic blood pressure 2024-01-15 03:18:00 150 mm[Hg] [facility] Diastolic blood pressure 2024-01-15 03:18:00 75 mm[Hg] [facility] Heart rate 2024-01-15 03:18:00 79 /min Un[facility] Body temperature 2024-01-15 03:18:00 36.5 Ginny [facility] Respiratory rate 2024-01-15 03:18:00 18 /min [facility] Body height 2024-01-15 03:18:00 177.8 cm [facility] Body weight 2024-01-15 03:18:00 99.791 kg [facility] BMI 2024-01-15 03:18:00 31.57 kg/m2 [facility] Oxygen saturation in Arterial blood by Pulse oximetry 2024-01-15 03:18:00 98 /min [facility] Systolic blood pressure 2024-01-05 12:37:00 161 mm[Hg] [facility] Diastolic blood pressure 2024-01-05 12:37:00 76 mm[Hg] [facility] Heart rate 2024-01-05 12:37:00 76 /min Un[facility] Body temperature 2024-01-05 12:37:00 36.89 Ginny [facility] Respiratory rate 2024-01-05 12:37:00 18 /min [facility] Body height 2024-01-05 12:37:00 177.8 cm [facility] 2024-01-05 12:37:00 99.791 kg [facility] 2024-01-05 12:37:00 31.57 kg/m2 [facility] Oxygen saturation in Arterial blood by Pulse oximetry 2024-01-05 12:37:00 96 /min [facility] Systolic blood pressure 2021-07-10 22:35:00 173 mm[Hg] [facility] Diastolic blood pressure 2021-07-10 22:35:00 71 mm[Hg] [facility] Heart rate 2021-07-10 22:35:00 50 /min [facility]ive [facility] Body height 2021-07-10 22:35:00 177.8 cm [facility] weight 2021-07-10 22:35:00 114.306 kg [facility] BMI 2021-07-10 22:35:00 36.16 kg/m2 [facility] Oxygen saturation in Arterial blood by Pulse oximetry 2021-07-10 22:35:00 99 /min [facility] Systolic blood pressure 2021-07-10 15:12:00 173 mm[Hg] [facility] [place] Diastolic blood pressure 2021-07-10 15:12:00 71 mm[Hg] [facility] Heart rate 2021-07-10 15:10:00 50 /min [facility] Body height 2021-07-10 15:10:00 177.8 cm [facility] Body weight 2021-07-10 15:10:00 114.306 kg [facility] BMI 2021-07-10 15:10:00 36.16 kg/m2 [facility] Oxygen saturation in Arterial blood by Pulse oximetry 2021-07-10 15:10:00 99 /min [facility] Systolic blood pressure 2021-05-20 23:06:00 130 mm[Hg] [facility] Diastolic blood pressure 2021-05-20 23:06:00 76 mm[Hg] [facility] Heart rate 2021-05-20 23:05:00 67 /min Unive [facility] Body temperature 2021-05-20 23:05:00 36.33 Ginny [facility] Respiratory rate 2021-05-20 23:05:00 18 /min [facility] Body height 2021-05-20 23:05:00 177.8 cm [facility] Body weight 2021-05-20 23:05:00 112.583 kg [facility] BMI 2021-05-20 23:05:00 35.61 kg/m2 [facility] Oxygen saturation in Arterial blood by Pulse oximetry 2021-05-20 23:05:00 97 /min [facility] Systolic blood pressure 2021-02-14 21:09:00 153 mm[Hg] [facility] Diastolic blood pressure 2021-02-14 21:09:00 76 mm[Hg] [facility] Heart rate 2021-02-14 21:09:00 58 /min Unive [facility] Body temperature 2021-02-14 21:09:00 36.72 Ginny [facility] Respiratory rate 2021-02-14 21:09:00 18 /min [facility] Body weight 2021-02-14 21:09:00 115.667 kg [facility] BMI 2021-02-14 21:09:00 35.57 kg/m2 [facility] Oxygen saturation in Arterial blood by Pulse oximetry 2021-02-14 21:09:00 97 /min [facility] Systolic blood pressure 2020-04-12 14:51:00 126 mm[Hg] [facility] Diastolic blood pressure 2020-04-12 14:51:00 76 mm[Hg] [facility] Heart rate 2020-04-12 14:51:00 58 /min Un[facility] Body temperature 2020-04-12 14:51:00 36.72 Ginny [facility] Respiratory rate 2020-04-12 14:51:00 18 /min [facility] Body height 2020-04-12 14:51:00 180.3 cm [facility] Body weight 2020-04-12 14:51:00 113.399 kg [facility] BMI 2020-04-12 14:51:00 34.87 kg/m2 [facility] Oxygen saturation in Arterial blood by Pulse oximetry 2020-04-12 14:51:00 98 /min [facility] Systolic blood pressure 2020-03-12 13:30:00 115 mm[Hg] [facility] Diastolic blood pressure 2020-03-12 13:30:00 81 mm[Hg] [facility] Heart rate 2020-03-12 13:30:00 51 /min [facility] Respiratory rate 2020-03-12 13:30:00 20 /min [facility] Oxygen saturation in Arterial blood by Pulse oximetry 2020-03-12 13:30:00 97 /min [facility] Body temperature 2020-03-12 12:37:00 36.22 Ginny [facility] Body weight 2020-03-12 12:37:00 111.131 kg [facility] BMI 2020-03-12 12:37:00 34.17 kg/m2 [facility] Systolic blood pressure 2020-01-18 13:42:00 136 mm[Hg] [facility] Diastolic blood pressure 2020-01-18 13:42:00 73 mm[Hg] [facility] Heart rate 2020-01-18 13:42:00 52 /min [facility] Body temperature 2020-01-18 13:42:00 36.56 Ginny [facility] Respiratory rate 2020-01-18 13:42:00 18 /min [facility] Body height 2020-01-18 13:42:00 180.3 cm [facility] 2020-01-18 13:42:00 113.309 kg [facility] BMI 2020-01-18 13:42:00 34.84 kg/m2 [facility] Oxygen saturation in Arterial blood by Pulse oximetry 2020-01-18 13:42:00 96 /min [facility] Systolic blood pressure 2019-12-30 17:24:00 154 mm[Hg] [facility] Diastolic blood pressure 2019-12-30 17:24:00 79 mm[Hg] [facility] Heart rate 2019-12-30 17:24:00 60 /min [facility] Respiratory rate 2019-12-30 17:24:00 16 /min [facility] Oxygen saturation in Arterial blood by Pulse oximetry 2019-12-30 17:24:00 96 /min [facility] Body temperature 2019-12-30 16:55:00 36.39 Ginny [facility] Body height 2019-12-26 22:40:00 180.3 cm [facility] Body weight 2019-12-26 22:40:00 116.121 kg [facility] BMI 2019-12-26 22:40:00 35.72 kg/m2 [facility] Systolic blood pressure 2019-12-19 14:13:00 135 mm[Hg] [facility] Diastolic blood pressure 2019-12-19 14:13:00 72 mm[Hg] [facility] Heart rate 2019-12-19 14:11:00 56 /min [facility] Respiratory rate 2019-12-19 14:11:00 19 /min [facility] Body height 2019-12-19 14:11:00 180.3 cm [facility] Body weight 2019-12-19 14:11:00 117.935 kg [facility] BMI 2019-12-19 14:11:00 36.26 kg/m2 [facility] Oxygen saturation in Arterial blood by Pulse oximetry 2019-12-19 14:11:00 96 /min [facility] Systolic blood pressure 2024-06-28 16:55:00 117 mm[Hg] [facility] Diastolic blood pressure 2024-06-28 16:55:00 57 mm[Hg] [facility] Heart rate 2024-06-28 16:55:00 65 /min [facility] Body temperature 2024-06-28 16:55:00 36.5 Ginny [facility] Respiratory rate 2024-06-28 16:55:00 18 /min [facility] Oxygen saturation in Arterial blood by Pulse oximetry 2024-06-28 16:55:00 98 /min [facility] Body weight 2024-06-28 09:42:00 89.495 kg [facility] BMI 2024-06-28 09:42:00 28.31 kg/m2 [facility] Body height 2024-06-23 21:39:00 177.8 cm [facility] Procedures Procedure Date / Time Performed Performing Clinician Source CK Total (Creatinine Kinase) 2025-04-15 00:00:00 [facility] POC GLUCOSE UNSOLICITED RESULTS 2025-04-13 08:17:00 Jarrell Washington [facility] COMPLETE BLOOD COUNT 2025-04-13 07:05:00 Katharina Gallo [facility] AUTOMATED DIFFERENTIAL 2025-04-13 07:05:00 Katharina Gallo [facility] BASIC METABOLIC PANEL 2025-04-13 07:05:00 Katharina Gallo [facility] CREATINE KINASE (CK TOTAL) 2025-04-13 07:05:00 [facility] W/DIFF AND PLATELET 2025-04-13 07:05:00 [facility] UNSOLICITED RESULTS 2025-04-12 17:33:00 [facility] UNSOLICITED RESULTS 2025-04-12 14:32:00 [facility] GLUCOSE UNSOLICITED RESULTS 2025-04-12 08:00:00 Katharina Gallo [facility] COMPLETE BLOOD COUNT 2025-04-12 05:51:00 Malini Leonard [facility] AUTOMATED DIFFERENTIAL 2025-04-12 05:51:00 Malini Venegas [facility] BASIC METABOLIC PANEL 2025-04-12 05:51:00 Malini Miller [facility] CREATINE KINASE (CK TOTAL) 2025-04-12 05:51:00 I glehart, [facility] COMPLETE BLOOD COUNT W/DIFF AND PLATELET 2025-04-12 05:51:00 Iglehalin, [facility] POC GLUCOSE UNSOLICITED RESULTS 2025-04-11 17:05:00 Katharina Gallo [facility] COMPLETE BLOOD COUNT 2025-04-11 04:20:00 Iglehar t, Malini [facility] AUTOMATED DIFFERENTIAL 2025-04-11 04:20:00 [facility] 2025-04-11 04:20:00 Igleha rt, [facility] CREATINE KINASE (CK TOTAL) 2025-04-11 04:20:00 I jabiert [facility] COMPLETE BLOOD COUNT W/DIFF AND PLATELET 2025-04-11 04:20:00 Iglehalin [facility] POC GLUCOSE UNSOLICITED RESULTS 2025-04-10 18:30:00 Chauhan, Mady Ang [facility] CORONAVIRUS (COVID-19) ERICK ICU/ISOLATION 2025-04-10 18:09:00 Chauhan, Mady Ang [facility] TROPONIN I HIGH SENSITIVITY CARESET (1ST HR) 2025-04-10 17:07:00 Chauhan, Mady Ang [facility] XR CHEST 1 VIEW 2025-04-10 16:53:04 Chauhan, Mady Ang Me morial [facility] BLOOD CULTURE 2025-04-10 15:32:00 Chauhan, Mady Ang Nathaniel rial [facility] LACTIC ACID WITH 2 HOUR REFLEX 2025-04-10 15:11:00 Chauhan, Mady N [facility] COMPLETE BLOOD COUNT 2025-04-10 15:11:00 Chauhan, Mady N [facility] AUTOMATED DIFFERENTIAL 2025-04-10 15:11:00 Chauhan, Bryson un N [facility] BASIC METABOLIC PANEL 2025-04-10 15:11:00 Chauhan, Johanna ang N [facility] HEPATIC FUNCTION PANEL 2025-04-10 15:11:00 Chauhan, Bryson un N [facility] CREATINE KINASE (CK TOTAL) 2025-04-10 15:11:00 Chauhan, Mady [facility] HEMOGLOBIN A1C 2025-04-10 15:11:00 Emir Stokes [facility] COMPLETE BLOOD COUNT W/DIFF AND PLATELET 2025-04-10 15:11:00 Chauhan Mady Romain [facility] PROCALCITONIN LEVEL 2025-04-10 15:11:00 Chauhan [facility] TROPONIN I HIGH SENSITIVITY CARESET (BASELINE) 2025-04-10 15:10:00 Chauhan, [facility] TROPONIN I HIGH SENSITIVITY CARESET 2025-04-10 15:10:00 [facility], [facility] POC GLUCOSE UNSOLICITED RESULTS 2025-04-10 14:16:00 Chauhan [facility] ECG 12-LEAD 2025-04-10 12:17:09 Rosio Vazquez [facility] COMPLETE BLOOD COUNT W/DIFF AND PLATELET 2025-04-04 08:59:00 Broderick Bedolla [facility] COMPLETE BLOOD COUNT 2025-04-04 08:59:00 Graeme Broderickmaninder Boone juan pablosusi [facility] AUTOMATED DIFFERENTIAL 2025-04-04 08:59:00 Broderick Bedolla [facility] COMPREHENSIVE METABOLIC PANEL 2025-04-04 08:58:00 Graeme Broderick Pauline [facility] POC GLUCOSE UNSOLICITED RESULTS 2025-04-04 07:44:00 Graeme Broderick Pauline [facility] US lower extremity venous doppler bilateral 2025-04-04 00:00:00 [facility] POCT GLUCOSE (AUTOMATED) 2024-08-25 16:36:00 Lizet Garcia [facility] BASIC METABOLIC PANEL (NA, K, CL, CO2, GLUCOSE, BUN, CREATININE, CA) 2024-08-25 09:18:00 Braden Palacio [facility] CBC WITHOUT DIFF 2024-08-25 09:18:00 [facility] 2024-08-25 01:26:00 Lizet Garcia [facility] POCT GLUCOSE (AUTOMATED) 2024-08-24 23:31:00 Lizet Garcia [facility] POCT GLUCOSE (AUTOMATED) 2024-08-24 21:24:00 Lizet Garcia [facility] POCT GLUCOSE (AUTOMATED) 2024-08-24 19:28:00 Lizet Garcia [facility] POCT GLUCOSE (AUTOMATED) 2024-08-24 18:31:00 [facility] POCT GLUCOSE (AUTOMATED) 2024-08-24 17:43:00 Lizet Garcia [facility] POCT GLUCOSE (AUTOMATED) 2024-08-24 16:28:00 Lizet Garcia [facility] POCT GLUCOSE (AUTOMATED) 2024-08-24 15:24:00 [facility] POCT GLUCOSE (AUTOMATED) 2024-08-24 14:24:00 [facility] POCT GLUCOSE (AUTOMATED) 2024-08-24 13:31:00 Lizet Garcia [facility] POCT GLUCOSE (AUTOMATED) 2024-08-24 12:29:00 [facility] POCT GLUCOSE (AUTOMATED) 2024-08-24 11:31:00 Lizet Garcia [facility] POCT GLUCOSE (AUTOMATED) 2024-08-24 10:32:00 Lizet Garcia [facility] POCT GLUCOSE (AUTOMATED) 2024-08-24 09:20:00 Lizet Garcia [facility] BASIC METABOLIC PANEL (NA, K, CL, CO2, GLUCOSE, BUN, CREATININE, CA) 2024-08-24 09:10[facility]24-[facility]-24 09:10[facility]00 [facility] 2024-08-24 09:10[facility]) 2024-08-24 08:31:00 Lizet Garcia [facility] POCT GLUCOSE (AUTOMATED) 2024-08-24 07:40:00 [facility] POCT GLUCOSE (AUTOMATED) 2024-08-24 06:34:00 Lizet Garcia [facility] POCT GLUCOSE (AUTOMATED) 2024-08-24 05:18:00 Lizet Garcia [facility] POCT GLUCOSE (AUTOMATED) 2024-08-24 04:24:00 Lizet Garcia [facility] POCT GLUCOSE (AUTOMATED) 2024-08-24 03:28:00 Lizet Garcia [facility] POCT GLUCOSE (AUTOMATED) 2024-08-24 02:32:00 Lizet Garcia [facility] POCT GLUCOSE (AUTOMATED) 2024-08-24 01:42:00 Lizet Garcia [facility] POCT GLUCOSE (AUTOMATED) 2024-08-24 00:25:00 Lizet Garcia [facility] POCT GLUCOSE (AUTOMATED) 2024-08-23 23:39:00 Lizet Garcia [facility] POCT GLUCOSE (AUTOMATED) 2024-08-23 23:17:00 Lizet Garcia [facility] POCT GLUCOSE (AUTOMATED) 2024-08-23 22:16:00 Lizet Garcia [facility] POCT GLUCOSE (AUTOMATED) 2024-08-23 21:23:00 Lizet Garcia [facility] MRSA / MSSA SCREEN BY [facility] 2024-08-23 20:57:00 Raj Garcia [facility] POCT GLUCOSE (AUTOMATED) 2024-08-23 20:17:00 Lizet Garcia [facility] POCT GLUCOSE (AUTOMATED) 2024-08-23 19:29:00 Lizet Garcia [facility] POCT GLUCOSE (AUTOMATED) 2024-08-23 16:59:00 Lizet Garcia [facility] POCT GLUCOSE(AGE >30DAYS) 2024-08-23 16:05:00 Raj Garcia [facility] POCT GLUCOSE(AGE >30DAYS) 2024-08-23 15:55:00 Riana Paul [facility] POCT GLUCOSE (AUTOMATED) 2024-08-23 15:50:00 Willian Paul [facility] POCT GLUCOSE (AUTOMATED) 2024-08-23 14:57:00 Willian Paul [facility] POCT GLUCOSE (AUTOMATED) 2024-08-23 14:36:00 Willian Paul [facility] VBG+VCOOX+NA+K+GLU+CA2+ 2024-08-23 14:33:00 , [facility] LACTIC ACID WHOLE BLOOD 2024-08-23 14:33:00 , Roma [facility] COMP. METABOLIC PANEL (86518) 2024-08-23 14:32:00 Singer [facility] CBC WITH DIFF 2024-08-23 14:32:00 Paul, [facility] N-TERMINAL PRO-BNP 2024-08-23 14:32:00 Marguerite Martell [facility] POCT GLUCOSE (AUTOMATED) 2024-08-23 14:12:00 Doc tor Unassigned, [place]ford [facility] POCT GLUCOSE (AUTOMATED) 2024-07-01 21:20:00 [facility] 2024-07-01 17:39:00 Lizet Garcia [facility] POCT GLUCOSE (AUTOMATED) 2024-07-01 13:13:00 Lizet Garcia [facility] BASIC METABOLIC PANEL (NA, K, CL, CO2, GLUCOSE, BUN, CREATININE, CA) 2024-07-01 08:40:00 Nohemy Askew [facility] CBC WITH DIFF 2024-07-01 08:40:00 Nhoemy Askew [facility] POCT GLUCOSE (AUTOMATED) 2024-07-01 00:47:00 Lizet Gracia [facility] POCT GLUCOSE (AUTOMATED) 2024-06-30 21:23:00 Lizet Garcia [facility] POCT GLUCOSE (AUTOMATED) 2024-06-30 16:14:00 Lizet Garcia [facility] POCT GLUCOSE (AUTOMATED) 2024-06-30 12:51:00 Lizet Garcia [facility] BASIC METABOLIC PANEL (NA, K, CL, CO2, GLUCOSE, BUN, CREATININE, CA) 2024-06-30 09:22:00 [facility] 2024-06-30 09:22:00 [facility] 2024-06-30 02:02:00 Lizet Garcia [facility] POCT GLUCOSE (AUTOMATED) 2024-06-29 21:11:00 Lizet Garcia [facility] POCT GLUCOSE (AUTOMATED) 2024-06-29 16:39:00 Lizet Garcia [facility] POCT GLUCOSE (AUTOMATED) 2024-06-29 12:39:00 Lizet Garcia [facility] BASIC METABOLIC PANEL (NA, K, CL, CO2, GLUCOSE, BUN, CREATININE, CA) 2024-06-29 08:24:00 Azar Nohemy [facility] CBC WITH DIFF 2024-06-29 08:24:00 Nohemy Askew [facility] POCT GLUCOSE (AUTOMATED) 2024-06-29 02:40:00 Lizet Garcia [facility] POCT GLUCOSE (AUTOMATED) 2024-06-28 22:49:00 Lizet Garcia [facility] POCT GLUCOSE (AUTOMATED) 2024-06-28 21:56:00 Lizet Garcia [facility] POCT GLUCOSE (AUTOMATED) 2024-06-28 16:57:00 Lizet Garcia [facility] POCT GLUCOSE (AUTOMATED) 2024-06-28 16:57:00 Lizet Garcia [facility] POCT GLUCOSE (AUTOMATED) 2024-06-28 13:02:00 Lizet Garcia [facility] POCT GLUCOSE (AUTOMATED) 2024-06-28 13:02:00 Lizet Garcia [facility] BASIC METABOLIC PANEL (NA, K, CL, CO2, GLUCOSE, BUN, CREATININE, CA) 2024-06-28 09:43:00 Jovanna Sandra [facility] MAGNESIUM 2024-06-28 09:43:00 Jovanna Sandra [facility] CBC WITH DIFF 2024-06-28 09:43:00 Jovanna Sandra [facility] VANCOMYCIN RANDOM LEVEL 2024-06-28 09:43:00 Diamond Marroquin [facility] MAGNESIUM 2024-06-28 09:43:00 Jovanna Sandra [facility] BASIC METABOLIC PANEL (NA, K, CL, CO2, GLUCOSE, BUN, CREATININE, CA) 2024-06-28 09:43:00 Jovanna Sandra [facility] VANCOMYCIN RANDOM LEVEL 2024-06-28 09:43:00 Diamond Marroquin [facility] CBC WITH DIFF 2024-06-28 09:43:00 Jovanna Sandra [facility] POCT GLUCOSE (AUTOMATED) 2024-06-28 05:07:00 Lizet Garcia [facility] POCT GLUCOSE (AUTOMATED) 2024-06-28 05:07:00 Lizet Garcia [facility] POCT GLUCOSE (AUTOMATED) 2024-06-28 02:10:00 Lizet Garcia [facility] POCT GLUCOSE (AUTOMATED) 2024-06-28 02:10:00 Lizet Garcia [facility] POCT GLUCOSE (AUTOMATED) 2024-06-27 21:59:00 Lizet Garcia [facility] POCT GLUCOSE (AUTOMATED) 2024-06-27 21:59:00 Lizet Garcia [facility] POCT GLUCOSE (AUTOMATED) 2024-06-27 19:47:00 Lizet Garcia [facility] POCT GLUCOSE (AUTOMATED) 2024-06-27 19:47:00 Lizet Garcia [facility] XR CHEST 1 VW 2024-06-27 19:02:32 Jovanna Sandra [facility] XR CHEST 1 VW 2024-06-27 19:02:32 Jovanna Sandra [facility] TRANSESOPHAGEAL ECHO (RAYMOND) COMPLETE W/ DOPPLER AND COLOR 2024-06-27 17:29:00 [facility] TRANSESOP[facility]AL [facility]CHO (RAYMOND) COMPLETE W/ DOPPLER AND COLOR 2024-06-27 17:29:00 Frank Quiroz [facility] POCT GLUCOSE (AUTOMATED) 2024-06-27 16:41:00 Tru, D [facility] POCT GLUCOSE (AUTOMATED) 2024-06-27 16:41:00 Lizet Garcia [facility] POCT GLUCOSE (AUTOMATED) 2024-06-27 14:13:00 Lizet Garcia [facility] POCT GLUCOSE (AUTOMATED) 2024-06-27 14:13:00 Lizet Garcia [facility] POCT GLUCOSE (AUTOMATED) 2024-06-27 13:26:00 Lizet Garcia [facility] POCT GLUCOSE (AUTOMATED) 2024-06-27 13:26:00 Lizet Garcia [facility] BASIC METABOLIC PANEL (NA, K, CL, CO2, GLUCOSE, BUN, CREATININE, CA) 2024-06-27 09:41:00 Boaz [facility] MAGNESIUM 2024-06-27 09:41:00 Jovanna Sandra [facility] CBC WITH DIFF 2024-06-27 09:41:00 Jovanna Sandra [facility] MAGNESIUM 2024-06-27 09:41:00 Jovanna Sandra [facility] BASIC METABOLIC PANEL (NA, K, CL, CO2, GLUCOSE, BUN, CREATININE, CA) 2024-06-27 09:41:00 Boaz [facility] CBC WITH DIFF 2024-06-27 09:41:00 Jovanna Sandra [facility] POCT GLUCOSE (AUTOMATED) 2024-06-27 01:37:00 Lizet Garcia [facility] POCT GLUCOSE (AUTOMATED) 2024-06-27 01:37:00 Lizet Garcia [facility] POCT GLUCOSE (AUTOMATED) 2024-06-26 21:58:00 Lizet Garcia [facility] POCT GLUCOSE (AUTOMATED) 2024-06-26 21:58:00 Lizet Garcia [facility] POCT GLUCOSE (AUTOMATED) 2024-06-26 17:25:00 Lizet Garcia [facility] POCT GLUCOSE (AUTOMATED) 2024-06-26 17:25:00 Lizet Garcia [facility] POCT GLUCOSE (AUTOMATED) 2024-06-26 13:17:00 [facility] 2024-06-26 13:17:00 [facility] BASIC METABOLIC PANEL (NA, K, CL, CO2, GLUCOSE, BUN, CREATININE, CA) 2024-06-26 09:49:00 Jovanna Sandra [facility] MAGNESIUM 2024-06-26 09:49:00 Jovanna Sandra [facility] CBC WITH DIFF 2024-06-26 09:49:00 Jovanna Sandra [facility] MAGNESIUM 2024-06-26 09:49:00 Jovanna Sandra [facility] BASIC METABOLIC PANEL (NA, K, CL, CO2, GLUCOSE, BUN, CREATININE, CA) 2024-06-26 09:49:00 [facility] 2024-06-26 09:49:00 Jovanna Sandra [facility] POCT GLUCOSE (AUTOMATED) 2024-06-26 02:29:00 [facility] ([facility]ATED) 2024-06-26 02:29:00 Lizet Garcia [facility] POCT GLUCOSE (AUTOMATED) 2024-06-25 21:45:00 Lizet Garcia [facility] POCT GLUCOSE (AUTOMATED) 2024-06-25 21:45:00 Lizet Garcia [facility] POCT GLUCOSE (AUTOMATED) 2024-06-25 16:54:00 [facility]ATED) 2024-06-25 16:54:00 Lizet Garcia [facility] POCT GLUCOSE (AUTOMATED) 2024-06-25 13:20:00 Lizet Garcia [facility] POCT GLUCOSE (AUTOMATED) 2024-06-25 13:20:00 Lizet Garcia [facility] VANCOMYCIN RANDOM LEVEL 2024-06-25 09:59:00 Gary Garcia [facility] VANCOMYCIN RANDOM LEVEL 2024-06-25 09:59:00 Gary Garcia [facility] POCT GLUCOSE (AUTOMATED) 2024-06-25 00:57:00 Lizet Garcia [facility] POCT GLUCOSE (AUTOMATED) 2024-06-25 00:57:00 Lizet Garcia [facility] POCT GLUCOSE (AUTOMATED) 2024-06-24 22:07:00 Lizet Garcia [facility] POCT GLUCOSE (AUTOMATED) 2024-06-24 22:07:00 Lizet Garcia [facility] POCT GLUCOSE (AUTOMATED) 2024-06-24 17:08:00 [facility] POCT GLUCOSE (AUTOMATED) 2024-06-24 17:08:00 Lizet Garcia [facility] BLOOD CULTURE SCREEN 2024-06-24 16:27:00 Sybil Sandra [facility] BLOOD CULTURE SCREEN 2024-06-24 16:27:00 Sybil Sandra [facility] CAROTID DUPLEX BILATERAL - BY VASCULAR LAB 2024-06-24 13:42:48 Alina EdouardHNeri [facility] CAROTID DUPLEX BILATERAL - BY VASCULAR LAB 2024-06-24 13:42:48 Alina Edouard.HNeri [facility] POCT GLUCOSE (AUTOMATED) 2024-06-24 13:25:00 Lizet Garcia [facility] POCT GLUCOSE (AUTOMATED) 2024-06-24 13:25:00 Lizet Garcia [facility] POCT GLUCOSE (AUTOMATED) 2024-06-24 00:52:00 Lizet Garcia [facility] POCT GLUCOSE (AUTOMATED) 2024-06-24 00:52:00 [facility] AMMONIA, PLASMA 2024-06-23 23:41:00 Raj Garcia [facility] AMMONIA, PLASMA 2024-06-23 23:41:00 Raj Garcia [facility] ACUTE CARE ARTERIAL BLOOD GAS 2024-06-23 22:43:00 Raj Garcia [facility] ACUTE CARE ARTERIAL BLOOD GAS 2024-06-23 22:43:00 Raj Garcia [facility] POCT GLUCOSE (AUTOMATED) 2024-06-23 22:03:00 Tru, D [facility] POCT GLUCOSE (AUTOMATED) 2024-06-23 22:03:00 Lizet Garcia [facility] MAGNESIUM 2024-06-23 21:04:00 Raj Garcia [facility] TROPONIN I 2024-06-23 21:04:00 Alina Edouard [facility] LIPID PANEL ([id number])(TOTAL CHOLESTEROL, TRIGLYCERIDES, HDL) 2024-06-23 21:04:00 Alina Edouard [facility] MAGNESIUM 2024-06-23 21:04:00 Raj Garcia [facility] TROPONIN I 2024-06-23 21:04:00 Alina Edouard [facility] LIPID PANEL ([id number])(TOTAL CHOLESTEROL, TRIGLYCERIDES, HDL) 2024-06-23 21:04:00 Alina Edouard [facility] TRANSTHORACIC ECHO (TTE) COMPLETE 2024-06-23 20:12:00 Raj Garcia [facility] TRANSTHORACIC ECHO (TTE) COMPLETE 2024-06-23 20:12:00 Raj Garcia [facility] CT HEAD WO CONTRAST 2024-06-23 17:47:00 Juno Hwang [facility] CT CERVICAL SPINE WO CONTRAST 2024-06-23 17:47:00 Juno Hwang [facility] CT CERVICAL SPINE WO CONTRAST 2024-06-23 17:47:00 Juno Hwang [facility] CT HEAD WO CONTRAST 2024-06-23 17:47:00 Juno Hwang [facility] CBC WITH DIFF 2024-06-23 17:07:00 Juno Hwang [facility] COMP. METABOLIC PANEL ([id number]) 2024-06-23 17:07:00 Juno Hwang [facility] TROPONIN I 2024-06-23 17:07:00 Juno Hwang [facility] N-TERMINAL PRO-BNP 2024-06-23 17:07:00 Juno Hwang [facility] URINALYSIS 2024-06-23 17:07:00 Juno Hwang [facility] PROTHROMBIN TIME / INR 2024-06-23 17:07:00 Juno Hwang [facility] ACTIVATED PARTIAL THRMPLAS NILDA 2024-06-23 17:07:00 Juno Hwang [facility] LACTIC ACID WHOLE BLOOD 2024-06-23 17:07:00 Juno Hwang [facility] GLYCOSYLATED HEMOGLOBIN (A1C) 2024-06-23 17:07:00 Raj Garcia [facility] TROPONIN I 2024-06-23 17:07:00 Juno Hwang [facility] COMP. METABOLIC PANEL ([id number]) 2024-06-23 17:07:00 [facility] [facility] CBC WITH DIFF 2024-06-23 17:07:00 Juno Hwang [facility] GLYCOSYLATED HEMOGLOBIN (A1C) 2024-06-23 17:07:00 Raj Garcia [facility] PROTHROMBIN TIME / INR 2024-06-23 17:07:00 Juno Hwang [facility] ACTIVATED PARTIAL THRMPLAS NILDA 2024-06-23 17:07:00 Juno Hwang [facility] URINALYSIS 2024-06-23 17:07:00 Juno Hwang [facility] N-TERMINAL PRO-BNP 2024-06-23 17:07:00 Juno Hwang [facility] LACTIC ACID WHOLE BLOOD 2024-06-23 17:07:00 Juno Hwang [facility] POCT GLUCOSE (AUTOMATED) 2024-06-19 21:58:00 Juno Hwang [facility] POCT GLUCOSE (AUTOMATED) 2024-06-19 21:58:00 Juno Hwang [facility] POCT GLUCOSE (AUTOMATED) 2024-06-19 21:28:00 Juno Hwang [facility] POCT GLUCOSE (AUTOMATED) 2024-06-19 21:28:00 Juno Hwang [facility] XR CHEST 1 VW 2024-06-19 19:23:33 Juno Hwang [facility] XR CHEST 1 VW 2024-06-19 19:23:33 Juno Hwang [facility] LACTIC ACID WHOLE BLOOD 2024-06-19 19:13:00 Juno Hwang [facility] LACTIC ACID WHOLE BLOOD 2024-06-19 19:13:00 Juno Hwang [facility] URINALYSIS 2024-06-19 19:12:00 Juno Hwang [facility] URINALYSIS 2024-06-19 19:12:00 Juno Hwang [facility] URINE CULTURE 2024-06-19 19:12:00 Juno Hwang [facility] BLOOD CULTURE SCREEN 2024-06-19 19:09:00 Juno Hwang [facility] COMP. METABOLIC PANEL ([id number]) 2024-06-19 19:09:00 Juno Hwang [facility] CBC WITH DIFF 2024-06-19 19:09:00 Juno Hwang [facility] N-TERMINAL PRO-BNP 2024-06-19 19:09:00 Juno Hwang [facility] CBC WITH DIFF 2024-06-19 19:09:00 Juno Hwang [facility] COMP. METABOLIC PANEL ([id number]) 2024-06-19 19:09:00 Juno Hwang [facility] N-TERMINAL PRO-BNP 2024-06-19 19:09:00 Juno Hwang [facility] BLOOD CULTURE SCREEN 2024-06-19 19:09:00 Juno Hwang [facility] BLOOD CULTURE WORKUP 2024-06-19 19:09:00 Jnuo Hwang [facility] BLOOD CULTURE WORKUP 2024-06-19 19:09:00 Juno Hwang [facility] GRAM POSITIVE BLOOD PATHOGENS DNA PROBE-ANAEROBIC 2024-06-19 19:09:00 Juno Hwang [facility] CT HEAD WO CONTRAST 2024-06-17 00:27:39 Parvez Caldera [facility] CT HEAD WO CONTRAST 2024-06-17 00:27:39 Parvez Caldera [facility] DUPLEX VENOUS LEG RIGHT - BY VASCULAR LAB 2024-06-16 03:05:37 Dejon Green [facility] DUPLEX VENOUS LEG RIGHT - BY VASCULAR LAB 2024-06-16 03:05:37 Dejon Green [facility] COMP. METABOLIC PANEL ([id number]) 2024-06-16 00:15:00 Dejon Green [facility] CBC WITH DIFF 2024-06-16 00:15:00 Dejon Green [facility] D-DIMER 2024-06-16 00:15:00 [facility] 2024-06-16 00:15:00 Dejon Green [facility] CBC WITH DIFF 2024-06-16 00:15:00 Dejon Green [facility] COMP. METABOLIC PANEL ([id number]) 2024-06-16 00:15:00 Dejon Green [facility] LACTIC ACID WHOLE BLOOD 2024-06-16 00:15:00 Dejon Green [facility] D-DIMER 2024-06-16 00:15:00 Dejon Green [facility] CT HEAD WO CONTRAST 2024-06-15 23:47:08 Deon Green [facility] CT HEAD WO CONTRAST 2024-06-15 23:47:08 Norma justus lombardi [facility] POCT GLUCOSE (AUTOMATED) 2024-04-06 10:11:00 Mulugeta Palma [facility] POCT GLUCOSE (AUTOMATED) 2024-04-06 10:11:00 Mulugeta Palma [facility] POCT GLUCOSE (AUTOMATED) 2024-04-06 09:34:00 Mulugeta Palma [facility] POCT GLUCOSE (AUTOMATED) 2024-04-06 09:34:00 Minerva, [facility] POCT GLUCOSE (AUTOMATED) 2024-04-06 08:30:00 Minerva [facility] POCT GLUCOSE (AUTOMATED) 2024-04-06 08:30:00 Minerva, [facility] POCT GLUCOSE (AUTOMATED) 2024-04-06 07:57:00 [facility]) 2024-04-06 07:57:00 Minerva, [facility] POCT GLUCOSE (AUTOMATED) 2024-04-06 07:34:00 Minerva, [facility] POCT GLUCOSE (AUTOMATED) 2024-04-06 07:34:00 Minerva [facility] MAGNESIUM 2024-04-06 06:56:[address] [facility] COMP. METABOLIC PANEL ([id number]) 2024-04-06 06:56:00 Minerva [facility] CBC WITH DIFF 2024-04-06 06:56:00 Minerva, [facility] URINALYSIS 2024-04-06 06:56:00 Minerva, [facility] CBC WITH DIFF 2024-04-06 06:56:00 Minerva [facility] COMP. METABOLIC PANEL ([id number]) 2024-04-06 06:56:00 Minerva [facility] MAGNESIUM 2024-04-06 06:56:00 Minerva, [facility] URINALYSIS 2024-04-06 06:56:[address] [facility] POCT GLUCOSE (AUTOMATED) 2024-04-06 06:44:00 Minerva [facility] POCT GLUCOSE (AUTOMATED) 2024-04-06 06:44:00 Minerva [facility] EKG-12 LEAD 2024-04-03 21:51:36 Ana Hagan [facility] EKG-12 LEAD 2024-04-03 21:51:[address] [facility] ACUTE CARE ARTERIAL BLOOD GAS 2024-04-03 19:07:00 Danya [facility] ACUTE CARE ARTERIAL BLOOD GAS 2024-04-03 19:07:00 Danya [facility] AMMONIA, PLASMA 2024-04-03 18:53:00 Ana Hagan [facility] AMMONIA, PLASMA 2024-04-03 18:53:00 Ana Hagan [facility] URINALYSIS 2024-04-03 17:52:[address] [facility] URINE DRUG (IMMUNOASSAY) - COMPREHENSIVE DRUG SCREEN W/O REFLEX 2024-04-03 17:52:00 Danya [facility] URINALYSIS 2024-04-03 17:52:[address] [facility] URINE DRUG (IMMUNOASSAY) - COMPREHENSIVE DRUG SCREEN W/O REFLEX 2024-04-03 17:52:00 Danya [facility] XR CHEST 1 VW 2024-04-03 16:27:00 Ana Hagan [facility] XR FOOT 3+ VW RIGHT 2024-04-03 16:27:00 Darwin Hagan [facility] XR CHEST 1 VW 2024-04-03 16:27:00 Ana Hagan [facility] XR FOOT 3+ VW RIGHT 2024-04-03 16:27:00 Darwin Hagan [facility] LACTIC ACID WHOLE BLOOD 2024-04-03 15:53:00 Ronnie Hagan [facility] LACTIC ACID WHOLE BLOOD 2024-04-03 15:53:00 Ronnie Hagan [facility] PHOSPHORUS 2024-04-03 15:52:[address] [facility] CREATINE KINASE 2024-04-03 15:52:00 Ana Hagan [facility] MAGNESIUM 2024-04-03 15:52:[address] [facility] TROPONIN I 2024-04-03 15:52:[address] [facility] COMP. METABOLIC PANEL ([id number]) 2024-04-03 15:52:00 Danya [facility] ETHANOL 2024-04-03 15:52:[address] [facility] CBC WITH DIFF 2024-04-03 15:52:[address] [facility] GALV ONLY - INFLUENZA A B RSV PCR 2024-04-03 15:52:00 Danya [facility] N-TERMINAL PRO-BNP 2024-04-03 15:52:00 Danya [facility] COVID-19 (ID NOW RAPID TESTING) 2024-04-03 15:52:00 Danya [facility] COVID-19 (ID NOW RAPID TESTING) 2024-04-03 15:52:00 Danya [facility] INFLUENZA A/B RSV COVID NAAT 2024-04-03 15:52:00 Danya [facility] CBC WITH DIFF 2024-04-03 15:52:[address] [facility] ETHANOL 2024-04-03 15:52:[address] [facility] COMP. METABOLIC PANEL ([id number]) 2024-04-03 15:52:00 Danya [facility] TROPONIN I 2024-04-03 15:52:[address] [facility] N-TERMINAL PRO-BNP 2024-04-03 15:52:00 Danya [facility] CREATINE KINASE 2024-04-03 15:52:00 [facility] 2024-04-03 15:52:[address] [facility] PHOSPHORUS 2024-04-03 15:52:[address] [facility] LAB ONLY COVID INTERPRETATION 2024-04-03 15:52:00 Danya [facility] POCT GLUCOSE(AGE >30DAYS) 2024-04-03 15:46:00 Danya [facility] POCT GLUCOSE(AGE >30DAYS) 2024-04-03 15:46:00 Danya [facility] POCT GLUCOSE (AUTOMATED) 2024-04-03 15:43:00 Danya [facility] POCT GLUCOSE (AUTOMATED) 2024-04-03 15:43:00 D[address] [facility] CT CERVICAL SPINE WO CONTRAST 2024-04-03 15:38:[address] [facility] CT HEAD WO CONTRAST 2024-04-03 15:38:07 [facility] HEAD WO CONTRAST 2024-04-03 15:38:07 [facility] CT CERVICAL SPINE WO CONTRAST 2024-04-03 15:38:07 Danya [facility] POCT GLUCOSE (AUTOMATED) 2024-04-01 00:04[facility]00 [facility] 2024-04-01 00:04:00 Racheal Tee [facility] POCT GLUCOSE (AUTOMATED) 2024-03-31 23:19:00 Racheal Tee [facility] POCT GLUCOSE (AUTOMATED) 2024-03-31 23:19:00 Racheal Tee [facility] COMP. METABOLIC PANEL ([id number]) 2024-03-31 19:37:00 Missael Tee [facility] CBC WITH DIFF 2024-03-31 19:37:00 Missael Tee [facility] EXTRA TUBE LT. BLUE 2024-03-31 19:37:00 Missael Tee [facility] CBC WITH DIFF 2024-03-31 19:37:00 Missael Tee [facility] COMP. METABOLIC PANEL ([id number]) 2024-03-31 19:37:00 Missael Tee [facility] EXTRA TUBE LT. BLUE 2024-03-31 19:37:00 Missael Tee [facility] CT CERVICAL SPINE WO CONTRAST 2024-03-31 19:14:18 Missael Tee [facility] CT HEAD WO CONTRAST 2024-03-31 19:14:18 Missael Tee [facility] CT HEAD WO CONTRAST 2024-03-31 19:14:18 Missael Tee [facility] CT CERVICAL SPINE WO CONTRAST 2024-03-31 19:14:18 Missael Tee [facility] XR KNEE 3 VW RIGHT 2024-03-29 22:12:44 Levi Frank [facility] XR LUMBAR SPINE 2 VW 2024-03-29 22:12:44 Levi Frank [facility] XR KNEE 3 VW RIGHT 2024-03-29 22:12:44 Levi Frank [facility] EKG-12 LEAD 2024-03-22 21:31:10 Libby Fernandez [facility] URINALYSIS 2024-03-22 17:07:00 Libby Fernandez [facility] EXTRA TUBE URINE CULTURE 2024-03-22 17:07:00 Mateusz Gayle [facility] XR CHEST 2 VW 2024-03-22 16:13:07 Libby Fernandez [facility] CREATINE KINASE 2024-03-22 15:46:00 Libby Fernandez [facility] TROPONIN I 2024-03-22 15:46:00 Libby Fernandez [facility] HEPATIC FUNCTION PANEL ([id number]) (ALB,T.PRO,BILI T,BU/BC,ALT,AST,ALK PHOS) 2024-03-22 15:46:00 Libby Fernandez [facility] BASIC METABOLIC PANEL (NA, K, CL, CO2, GLUCOSE, BUN, CREATININE, CA) 2024-03-22 15:46:00 Libby Fernandez [facility] CBC WITH DIFF 2024-03-22 15:46:00 Libby Fernandez [facility] GLYCOSYLATED HEMOGLOBIN (A1C) 2024-03-22 15:46:00 Mateusz Gayle [facility] N-TERMINAL PRO-BNP 2024-03-22 15:46:00 Libby Martinez [facility] EXTRA TUBE LT. BLUE 2024-03-22 15:46:00 Mateusz Gayle [facility] POCT GLUCOSE (AUTOMATED) 2024-03-12 04:41:00 [place] Yoav juli Cruz [facility] POCT GLUCOSE (AUTOMATED) 2024-03-12 03:45:00 [place], Yoav juli Cruz [facility] POCT GLUCOSE (AUTOMATED) 2024-03-12 02:29:00 VeniceYoav harrell [facility] CREATINE KINASE 2024-03-12 01:42:00 Micah Millard [facility] TROPONIN I 2024-03-12 01:42:00 Micah Millard [facility] COMP. METABOLIC PANEL ([id number]) 2024-03-12 01:42:00 Micah Millard [facility] CBC WITH DIFF 2024-03-12 01:42:00 Micah Millard [facility] COMP. METABOLIC PANEL ([id number]) 2024-02-10 17:52:00 Singer [facility] CBC WITH DIFF 2024-02-10 17:52[facility]00 [facility]24-02-09 21:03:00 Jose Roberto [place] [facility] CT HEAD WO CONTRAST 2024-02-09 20:02:00 Jose Roberto [place] [facility] URINALYSIS 2024-02-06 15:15:00 Sonia Muller [facility] XR LUMBAR SPINE 3 VW 2024-02-06 15:00:46 Rolly Muller [facility] CT ABDOMEN PELVIS WO CONTRAST 2024-01-30 18:58:58 Dejon Green [facility] COMP. METABOLIC PANEL ([id number]) 2024-01-30 16:35:00 Dejon Green [facility] CBC WITH DIFF 2024-01-30 16:35:00 Dejon Green [facility] CONSENT/REFUSAL FOR DIAGNOSIS AND TREATMENT 2024-01-15 03:41:26 Doctor Unassigned, [place] [facility] ASSIGNMENT OF BENEFITS 2024-01-15 03:35:20 Docto r Unassigned, [place] [facility] ASSIGNMENT OF BENEFITS 2021-05-20 22:59:18 Docto r Unassigned, [place] [facility] MICROALBUMIN URINE 2021-02-14 22:17:00 Joel Aranda [facility] CONSENT/REFUSAL FOR DIAGNOSIS AND TREATMENT 2021-02-14 21:51:32 Doctor Unassigned, [place] [facility] ASSIGNMENT OF BENEFITS 2021-02-14 21:50:52 Docto r Unassigned, [place] [facility] XR TIBIA FIBULA 2 VW RIGHT 2020-03-12 13:27:36 Chelle Fernandez [facility] XR LUMBAR SPINE 3 VW 2020-02-16 18:44:17 Basim Aranda [facility] ASSIGNMENT OF BENEFITS 2020-02-16 17:58:39 Docpaige r Unassigned, [place] [facility] COLONOSCOPY (ENDO) 2019-12-30 15:52:18 Joel Aranda [facility] COLONOSCOPY (ENDO) 2019-12-30 15:52:18 Joel Aranda [facility] POCT GLUCOSE(AGE >30DAYS) 2019-12-30 13:50:[address] [facility] DAY SURGERY - ADC 2019-12-30 06:01:00 Doctor Ileana ssigned, [place] [facility] HCV ANTIBODY 2019-10-18 15:27:00 Tl Aranda [facility] POCT Glucose [facility] Phosphorus Level [facility] Magnesium Level [facility] Comprehensive Metabolic Panel [facility] Complete Blood Count (no diff) [facility] Blood culture, peripheral #2 [facility] Encounters Start Date/Time End Date/Time Encounter Type Admission Type Attending Clinicians Care Facility Care Department Encounter ID Source 2025-04-04 08:03:54 Emergency HFD HFD [id number] [facility] Depart ent 2025-04-10 13:54:00 2025-04-13 13:30:00 Hospital Encounter Mady Chauhan Elena Ibarguen Rana, Asra Ashraf Akhter, Omar [facility] 1.2.840.114 350.1.13.70 8.2.7.2.686 [id number] Enmanuel mora [facility] 2025-04-10 13:54:00 2025-04-13 13:30:00 Inpatient Emergency JARRELL WASHINGTON [facility] General Medicine [id number] [facility] 2025-04-11 00:00:00 2025-04-11 15:10:12 Patient Outreach [facility] 90 1.2.840.114 350.1.13.70 8.2.7.2.686 [id number] [facility] 2025-04-04 07:47:00 2025-04-04 13:20:00 Emergency Broderick Bedolla [facility] 1.2.840.114 350.1.13.70 8.2.7.2.686 [id number] Enmanuel [facility] 2025-04-04 07:47:00 2025-04-04 13:20:00 Emergency Emergency MANINDER BEDOLLAYU [facility] General Medicine [id number] [facility] 2025-04-04 00:00:00 2025-04-04 12:59:05 Referral Triage [facility] 90 1.2.840.114 350.1.13.70 8.2.7.2.686 [id number] Enmanuel [facility] 2025-04-04 00:00:00 2025-04-04 12:58:07 Patient Outreach [facility] 90 1.2.840.114 350.1.13.70 8.2.7.2.686 [id number] [facility] 2024-12-28 06:27:00 2024-12-28 07:41:00 Emergency X DEEPA RAMIREZ [facility]AK[facility]I [facility] [id number] [facility] 2024-12-28 06:27:00 2024-12-28 07:41:00 Emergency Deepa Ramirez [facility] 1.2.840.114 350.1.13.10 4.2.7.2.686 [id number] [facility] 2024-12-21 11:19:00 2024-12-21 12:25:00 Emergency X DONI GALAN [facility] ERT [id number] [facility] 2024-12-21 11:19:00 2024-12-21 12:25:00 Emergency Doni Galan [facility] 1.2840.114 350.1.13.10 4.2.7.2.686 [id number] [facility] 2024-12-16 00:00:00 2024-12-16 15:54:57 Patient Outreach Rupa Conroy Irene C [facility] 1.2840.114 350.1.13.10 4.2.7.2.686 [id number] [facility] 2024-07-21 00:00:00 2024-08-27 18:25:25 Patient Secure Msg Doctor Unassigned, [place] Doctor Unassigned, [place] [facility] 1.2840.114 350.1.13.10 4.2.7.2.686 [id number] [facility] 2024-08-26 00:00:00 2024-08-26 15:23:12 Transition of Care Martell Fallon Michele A [facility] [address] 1.2840.114 350.1.13.10 4.2.7.2.686 [id number] [facility] 2024-08-23 09:12:00 2024-08-25 13:20:00 Outpatient X RAJ GARCIA [facility] [id number] [facility] 2024-08-23 09:12:00 2024-08-25 13:20:00 Emergency Riana Paul Raj Garcia [facility] 1.2.840.114 350.1.13.10 4.2.7.2.686 [id number] [facility] 2024-07-04 00:00:00 2024-07-04 11:05:06 Transition of Care Martell Fallon Michele A [facility] 1.2.840.114 350.1.13.10 4.2.7.2.686 [id number] [facility] 2024-06-23 11:30:00 2024-07-01 17:41:00 Inpatient X BRADEN PALACIO [facility] [id number] [facility] 2024-06-23 11:30:00 2024-07-01 17:41:00 Hospital Encounter Jaiden, Raj Sousa Jelani [facility] 1.2.840.114 350.1.13.10 4.2.7.2.686 [id number] [facility] 2024-06-27 12:11:00 2024-06-27 12:31:00 Anesthesia Event Benja Pang Thomas 1.2.840.1 [id number] 3.104.2.7 .3.749237 .8 [id number] [facility] 2024-06-27 00:00:00 2024-06-27 00:00:00 Travel 1.2.840.1 91475.1.1 3.104.2.7 .3.161481 .8 1.2.840.114 350.1.13.10 4.2.7.3.698 084.8 [id number] [facility] 2024-06-23 00:00:00 2024-06-23 00:00:00 Travel 1.2.840.1 25854.1.1 3.104.2.7 .3.704366 .8 1.2.840.114 350.1.13.10 4.2.7.3.698 084.8 [id number] [facility] 2024-06-20 11:03:00 2024-06-20 12:50:00 Emergency MULUGETA CASTILLO ANDRES [facility] ERT [id number] [facility] 2024-06-20 11:03:00 2024-06-20 12:50:00 Emergency Mulugeta Palma 1.2.840.1 42635.1.1 3.104.2.7 .3.886101 .8 [id number] [facility] 2024-06-19 12:34:00 2024-06-19 18:05:00 Emergency X Juno HWANG K [facility] ERT [id number] [facility] 2024-06-19 12:34:00 2024-06-19 18:05:00 Emergency Juno Hwangge 1.2.840.1 40079.1.1 3.104.2.7 .3.807346 .8 [id number] [facility] 2024-06-19 00:00:00 2024-06-19 00:00:00 Travel 1.2.840.1 81844.1.1 3.104.2.7 .3.079798 .8 1.2.840.114 350.1.13.10 4.2.7.3.698 084.8 [id number] [facility] 2024-06-16 18:07:00 2024-06-16 19:57:00 Emergency PARVEZ TRACEY ERICCA [facility] ERT [id number] [facility] 2024-06-16 18:07:00 2024-06-16 19:57:00 Emergency Parvez Caldera 1.2.840.1 61100.1.1 3.104.2.7 .3.308759 .8 [id number] [facility] 2024-06-15 17:52:00 2024-06-16 00:32:00 Emergency X DEJON GREEN [facility] [id number] [facility] 2024-06-15 17:52:00 2024-06-16 00:32:00 Emergency Dejon Green 1.2.840.1 47184.1.1 3.104.2.7 .3.644265 .8 [id number] [facility] 2024-06-16 00:00:00 2024-06-16 00:00:00 Travel 1.2.840.1 18275.1.1 3.104.2.7 .3.728986 .8 1.2.840.114 350.1.13.10 4.2.7.3.698 084.8 [id number] [facility] 2024-06-15 00:00:00 2024-06-15 00:00:00 Travel 1.2.840.1 33858.1.1 3.104.2.7 .3.454756 .8 1.2.840.114 350.1.13.10 4.2.7.3.698 084.8 [id number] [facility] 2024-04-21 00:00:00 2024-05-28 18:28:04 Patient Secure Msg Doctor Unassigned, [place] 1.2.840.1 09872.1.1 3.104.2.7 .3.313953 .8 [id number] [facility] 2024-04-22 00:00:00 2024-05-28 18:26:38 Patient Secure Msg Doctor Unassigned, [place] 1.2.840.1 13931.1.1 3.104.2.7 .3.074229 .8 [id number] [facility] 2024-04-20 00:00:00 2024-05-21 18:17:43 Patient Secure Msg Doctor Unassigned, [place] 1.2.840.1 33787.1.1 3.104.2.7 .3.795359 .8 [id number] [facility] 2024-04-11 00:00:00 2024-04-11 14:11:19 Patient Outreach Sonia Prajapati 1.2.840.1 63863.1.1 3.104.2.7 .3.245665 .8 [id number] [facility] 2024-04-06 01:32:00 2024-04-06 06:05:00 Emergency X MULUGETA PALMA [facility] ERT [id number] [facility] 2024-04-06 01:32:00 2024-04-06 06:05:00 Emergency Mulugeta Palma 1.2.840.1 39391.1.1 3.104.2.7 .3.714463 .8 [id number] [facility] 2024-04-06 00:00:00 2024-04-06 00:00:00 Travel 1.2.840.1 86645.1.1 3.104.2.7 .3.073764 .8 1.2.840.114 350.1.13.10 4.2.7.3.698 084.8 [id number] [facility] 2024-04-04 00:00:00 2024-04-04 08:34:06 Patient Outreach Sonia Prajapati 1.2.840.1 48741.1.1 3.104.2.7 .3.169024 .8 [id number] [facility] 2024-04-03 09:43:00 2024-04-03 17:45:00 Emergency X ANA HAGAN [facility]LES [facility] ERT [id number] [facility] 2024-04-03 09:43:00 2024-04-03 17:45:00 Emergency Ana Hagan 1.2.840.1 80446.1.1 3.104.2.7 .3.850965 .8 [id number] [facility] 2024-04-03 00:00:00 2024-04-03 00:00:00 Travel 1.2.840.1 28362.1.1 3.104.2.7 .3.367657 .8 1.2.840.114 350.1.13.10 4.2.7.3.698 084.8 [id number] [facility] 2024-04-01 00:00:00 2024-04-01 14:18:07 Patient Outreach Sonia Prajapati 1.2.840.1 84633.1.1 3.104.2.7 .3.774164 .8 [id number] [facility] 2024-03-31 12:38:00 2024-03-31 19:42:00 Emergency X MISSAEL TEE [facility] [id number] [facility] 2024-03-31 12:38:00 2024-03-31 19:42:00 Emergency Missael Tee 1.2.840.1 01657.1.1 3.104.2.7 .3.923061 .8 [id number] [facility] 2024-03-31 00:00:00 2024-03-31 00:00:00 Travel 1.2.840.1 48518.1.1 3.104.2.7 .3.175681 .8 1.2.840.114 350.1.13.10 4.2.7.3.698 084.8 [id number] [facility] 2024-03-30 00:00:00 2024-03-30 10:17:48 Patient Outreach Sonia Prajapati 1.2.840.1 34904.1.1 3.104.2.7 .3.623267 .8 [id number] [facility] 2024-03-30 00:00:00 2024-03-30 08:13:15 Patient Outreach Franky Prajapatiine 1.2.840.1 63644.1.1 3.104.2.7 .3.341823 .8 [id number] [facility] 2024-03-29 14:48:00 2024-03-29 19:06:00 Emergency X LEVI FRANK [facility] [id number] [facility] 2024-03-29 14:48:00 2024-03-29 19:06:00 Emergency KattyLevi Darrell 1.2.840.1 84326.1.1 3.104.2.7 .3.917517 .8 [id number] [facility] 2024-03-29 00:00:00 2024-03-29 14:12:53 Patient Outreach Franky Prajapatiine 1.2.840.1 83963.1.1 3.104.2.7 .3.615335 .8 [id number] [facility] 2024-03-29 00:00:00 2024-03-29 08:02:10 Patient Outreach Franky Prajapatiine 1.2.840.1 99856.1.1 3.104.2.7 .3.716340 .8 [id number] [facility] 2024-03-29 00:00:00 2024-03-29 00:00:00 Travel 1.2.840.1 22564.1.1 3.104.2.7 .3.014420 .8 1.2.840.114 350.1.13.10 4.2.7.3.698 084.8 [id number] [facility] 2024-03-23 00:00:00 2024-03-23 00:00:00 Patient Outreach Nargis Moore 1.2.840.114 350.1.13.10 4.2.7.2.686 [id number] [facility] 2024-03-23 00:00:00 2024-03-23 00:00:00 Patient Outreach Sonia Prajapati 1.2.840.114 350.1.13.10 4.2.7.2.686 [id number] [facility] 2024-03-23 00:00:00 2024-03-23 00:00:00 Patient Outreach Sonia Prajapati 1.2.840.114 350.1.13.10 4.2.7.2.686 [id number] [facility] 2024-03-23 00:00:00 2024-03-23 00:00:00 Patient Outreach Sonia Prajapati 1.2.840.114 350.1.13.10 4.2.7.2.686 [id number] [facility] 2024-03-22 09:57:00 2024-03-22 17:18:00 Emergency X MATEUSZ GAYLE PAUL [facility] ERT [id number] [facility] 2024-03-22 09:57:00 2024-03-22 17:18:00 Emergency Mateusz Gayle [facility] 1.2.840.114 350.1.13.10 4.2.7.2.686 [id number] [facility] 2024-03-11 20:22:00 2024-03-12 00:03:00 Emergency X MICAH MILLARD [facility] ERT [id number] [facility] 2024-03-11 20:22:00 2024-03-12 00:03:00 Emergency Micah Millard [facility] 1.2.840.114 350.1.13.10 4.2.7.2.686 [id number] [facility] 2024-02-10 11:58:00 2024-02-10 15:10:00 Emergency X RIANA PAUL [facility] ERT [id number] [facility] 2024-02-10 11:58:00 2024-02-10 15:10:00 Emergency Riana Paul [facility] 1.2.840.114 350.1.13.10 4.2.7.2.686 [id number] 084 [id number] [facility] 2024-02-09 14:01:00 2024-02-09 21:19:00 Emergency X JOSE ROBERTO IRELAND [facility] ERT [id number] [facility] 2024-02-09 14:01:00 2024-02-09 21:19:00 Emergency Jose Roberto Ireland [facility] 1.2.840.114 350.1.13.10 4.2.7.2.686 [id number] 084 [id number] [facility] 2024-02-06 09:21:00 2024-02-06 11:51:00 Emergency X SONIA MULLER [facility] ERT [id number] [facility] 2024-02-06 09:21:00 2024-02-06 11:51:00 Emergency Sonia Muller [facility] 1.2.840.114 350.1.13.10 4.2.7.2.686 [id number] [id number] [facility] 2024-01-30 10:06:00 2024-01-30 15:02:00 Emergency X DEJON GREEN [facility] ERT [id number] [facility] 2024-01-30 10:06:00 2024-01-30 15:02:00 Emergency JuliavondaDejon tubbs [facility] 1.2.840.114 350.1.13.10 4.2.7.2.686 [id number] 084 [id number] [facility] 2024-01-14 21:21:00 2024-01-14 21:48:00 Emergency X RAMONA, SALMIN RAMONA, [facility] ERT [id number] [facility] 2024-01-14 21:21:00 2024-01-14 21:48:00 Emergency Silas Andersen [facility] 1..840.114 350.1.13.10 4.2.7.2.686 [id number] [id number] [facility] 2024-01-05 06:39:00 2024-01-05 07:57:00 Emergency X JACKIE DIAZ [facility] ERT [id number] [facility] 2024-01-05 06:39:00 2024-01-05 07:57:00 Emergency VelLeelara Woo [facility] 1..840.114 350.1.13.10 4.2.7.2.686 [id number] [id number] [facility] 2022-12-29 13:30:00 2022-12-29 14:30:00 CAV Lorene Stein 2.16.840. 1.932678. 4.6.48687 26001 2.16.840.1. 951890.4.6. [id number] [facility] 2022-10-17 00:00:00 2022-10-17 00:00:00 Outpatient DMG [facility] [id number] [facility] 2022-10-17 00:00:00 2022-10-17 00:00:00 Outpatient DMG DM [id number] [facility] 2022-09-07 00:00:00 2022-09-07 00:00:00 Outpatient DMG DMG [id number] [facility] 2022-08-21 00:00:00 2022-08-21 00:00:00 Tl Guzman [facility] PROFESSIO [facility] 1..840.114 350.1.13.10 4.2.7.2.686 [id number] 044 [id number] [facility] 2022-02-17 00:00:00 2022-02-17 00:00:00 Refill JenTl huerta [facility] PROFESSIO [facility] BUILD[facility] 1.2.840.114 350.1.13.10 4.2.7.2.686 [id number] 044 [id number] [facility] 2021-11-06 10:40:00 2021-11-06 10:40:00 Outpatient R TL ARANDA [facility] [id number] [facility] 2021-10-28 00:00:00 2021-10-28 00:00:00 Refill ScoobychrissyTl huerta [facility] 1.2840.114 350.1.13.10 4.2.7.2.686 [id number] 044 [id number] [facility] 2021-10-03 00:00:00 2021-10-03 00:00:00 [address] T[address] [facility] 1.2840.114 350.1.13.10 4.2.7.2.686 [id number] 044 [id number] [facility] 2021-09-09 00:00:00 2021-09-09 00:00:[address] [facility] 1.2.840.114 350.1.13.10 4.2.7.2.686 [id number] 082 [id number] [facility] 2021-07-18 00:00:00 2021-07-18 00:00:00 Patient Secure Msg Doctor Unassigned, [facility] [facility] 1.2.840.114 350.1.13.10 4.2.7.2.686 [id number] 019 [id number] [facility] 2021-07-12 00:00:00 2021-07-12 00:00:00 Telephone Tl Aranda [facility] Building 1.2840.114 350.1.13.10 4.2.7.2.686 [id number] 044 [id number] [facility] 2021-07-10 15:55:33 2021-07-10 15:55:44 Office Visit Tl Aranda [facility] Building 1.2.840.114 350.1.13.10 4.2.7.2.686 [id number] 044 [id number] [facility] 2021-07-10 09:55:19 2021-07-10 11:00:50 Office Visit Tl Aranda [facility] Building 1.2.840.114 350.1.13.10 4.2.7.2.686 [id number] 044 [id number] [facility] 2021-07-10 10:00:00 2021-07-10 10:00:00 Outpatient R MANOJ [facility] [id number] [facility] 2021-07-09 00:00:00 2021-07-09 00:00:00 Telephone Tl Aranda [facility] Building 1.2.840.114 350.1.13.10 4.2.7.2.686 [id number] [facility] 2021-06-19 00:00:00 2021-06-19 00:00:00 Refill Tl Aranda [facility] Building 1.2.840.114 350.1.13.10 4.2.7.2.686 [id number] 044 [id number] [facility] 2021-05-20 17:59:38 2021-05-20 18:39:03 Urgent Care Provider, [facility] Lesli Oscar [facility] Office Building One 1.2.840.114 350.1.13.10 4.2.7.2.686 [id number] 044 [id number] [facility] 2021-05-20 18:20:00 2021-05-20 18:20:00 Outpatient R [facility] [id number] [facility] 2021-05-20 00:00:00 2021-05-20 00:00:00 Orders Only Doctor Unassigned, [facility] [facility] 1.2840.114 350.1.13.10 4.2.7.2.686 [id number] [id number] [facility] 2021-05-16 00:00:00 2021-05-16 00:00:00 Refill Tl Aranda [facility] 1.2.840.114 350.1.13.10 4.2.7.2.686 [id number] 044 [id number] [facility] 2021-02-14 16:53:57 2021-02-14 17:08:57 Flattening Machine Operator Visit Pob, 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 Manoj [facility] 1.2.840.114 350.1.13.10 4.2.7.2.686 [id number] [facility] 2021-02-14 15:55:11 2021-02-14 16:27:03 Office Visit Scoobydawood Tl [facility] 1.2.840.114 350.1.13.10 4.2.7.2.686 [id number] 044 [id number] [facility] 2021-02-14 16:00:00 2021-02-14 16:00:00 Outpatient R MANOJ TL [facility] [id number] [facility] 2021-02-14 00:00:00 2021-02-14 00:00:00 Orders Only Doctor Unassigned, [facility] [facility] 1.2840.114 350.1.13.10 4.2.7.2.686 [id number] [id number] [facility] 2021-02-08 00:00:00 2021-02-08 00:00:00 Refill Edemedipakhannah[facility] 1.2.840.114 350.1.13.10 4.2.7.2.686 [id number] 044 [id number] [facility] 2021-01-28 00:00:00 2021-01-28 00:00:00 Telephone Tl Aranda [facility] Сергей [facility] 1.2.840.114 350.1.13.10 4.2.7.2.686 [id number] 044 [id number] [facility] 2021-01-22 00:00:00 2021-01-22 00:00:00 Telephone Tl [facility] 1.2.840.114 350.1.13.10 4.2.7.2.686 [id number] 044 [id number] [facility] 2021-01-21 00:00:00 2021-01-21 00:00:00 Refill Tl Aranda [facility] 1.2.840.114 350.1.13.10 4.2.7.2.686 [id number] 044 [id number] [facility] 2020-10-31 13:30:00 2020-10-31 13:30:00 Outpatient R NIMISHA YING [facility] [id number] [facility] 2020-10-09 14:40:00 2020-10-09 14:40:00 Outpatient R TL ARANDA [facility] [id number] [facility] 2020-09-24 09:20:00 2020-09-24 09:20:00 Outpatient R FRANK QUIROZ [facility] [id number] [facility] 2020-07-09 09:20:00 2020-07-09 09:20:00 Outpatient R TL ARANDA [facility] [id number] [facility] 2020-07-09 08:17:40 2020-07-09 08:37:40 Telemedici ne Visit Ed[place], Peter [facility] Building 1.2.840.114 350.1.13.10 4.2.7.2.686 [id number] 044 [id number] [facility] 2020-06-28 00:00:00 2020-06-28 00:00:00 CarltonDarrell Rai [facility] Building 1.2.840.114 350.1.13.10 4.2.7.2.686 [id number] 044 [id number] [facility] 2020-04-19 08:00:00 2020-04-19 08:00:00 Outpatient R MANOJ TL [facility] [id number] [facility] 2020-04-12 09:46:54 2020-04-12 10:06:54 Urgent Care Provider, [facility] 1.2840.114 350.1.13.10 4.2.7.2.686 [id number] [id number] [facility] 2020-04-12 10:00:00 2020-04-12 10:00:00 Outpatient R YOSSI PRASAD [facility] [id number] [facility] 2020-04-09 00:00:00 2020-04-09 00:00:00 Telephone Tl Aranda [facility] Building 1.2.840.114 350.1.13.10 4.2.7.2.686 [id number] 044 [id number] [facility] 2020-04-05 00:00:00 2020-04-05 00:00:00 Telephone Tl Aranda [facility] Building 1.2.840.114 350.1.13.10 4.2.7.2.686 [id number] [id number] [facility] 2020-03-16 10:02:04 2020-03-16 10:02:51 Traffic Administrator Visit Idalia, [facility] Professio nal Building 1.2.840.114 350.1.13.10 4.2.7.2.686 [id number] [facility] 2020-03-15 15:00:00 2020-03-15 15:00:00 Outpatient R [facility] [id number] [facility] 2020-03-14 16:30:00 2020-03-14 16:30:00 Outpatient R DARRELL BECKFORD [facility] [id number] [facility] 2020-03-14 15:42:00 2020-03-14 15:57:00 Telemedici ne Visit [facility]rell [facility] 1.2.840.114 350.1.13.10 4.2.7.2.686 [id number] 044 [id number] [facility] 2020-03-14 00:00:00 2020-03-14 00:00:00 Tele[address] Tl Aranda [facility] 1.2.840.114 350.1.13.10 4.2.7.2.686 [id number] 044 [id number] [facility] 2020-03-12 07:53:07 2020-03-12 08:57:00 Emergency Jim Chelle [facility] 1.2.840.114 350.1.13.10 4.2.7.2.686 [id number] [facility] 2020-03-12 07:53:07 2020-03-12 08:57:00 Emergency X CHELLE FERNANDEZ [facility] ERT [id number] [facility] 2020-03-08 15:00:00 2020-03-08 15:00:00 Outpatient R [facility] [id number] [facility] 2020-02-28 13:00:00 2020-02-28 13:00:00 Outpatient R TL ARANDA [facility] [id number] [facility] 2020-02-28 07:16:07 2020-02-28 07:56:07 Telemedici ne Visit Manoj [facility] Professio nal Building 1.2840.114 350.1.13.10 4.2.7.2.686 [id number] [facility] 2020-02-23 00:00:00 2020-02-23 00:00:00 Telephone Manoj [facility] 1.20.114 350.1.13.10 4.2.7.2.686 [id number] [facility] 2020-02-16 12:59:15 2020-02-16 23:59:00 Outpatient R MANOJ [facility] [id number] [facility] 2020-02-16 12:59:00 2020-02-16 23:59:00 Hospital Encounter Tl Aranda [facility] 1.840.114 350.1.13.10 4.2.7.2.686 [id number] [facility] 2020-02-16 00:00:00 2020-02-16 00:00:00 Orders Only Doctor Unassigned, [facility] [facility] 1.2.840.114 350.1.13.10 4.2.7.2.686 [id number] [facility] 2020-02-16 00:00:00 2020-02-16 00:00:[address] [facility] Professio nal Building 1.2840.114 350.1.13.10 4.2.7.2.686 [id number] 044 [id number] [facility] 2020-01-18 07:23:58 2020-01-18 08:32:20 [facility] 1.2840.114 350.1.13.10 4.2.7.2.686 [id number] 044 [id number] [facility] 2020-01-18 07:20:00 2020-01-18 07:20:00 Outpatient R MANOJTL [facility] [id number] [facility] 2020-01-18 00:00:00 2020-01-18 00:00:00 Letter (Out) Doctor Unassigned, [facility] 1.20.114 350.1.13.10 4.2.7.2.686 [id number] [facility] 2020-01-07 00:00:00 2020-01-07 00:00:00 Natividad Corrigan [facility] Professio nal Building 1..114 350.1.13.10 4.2.7.2.686 [id number] [facility] 2020-01-04 00:00:00 2020-01-04 00:00:00 Telephone JenTl huerta [facility] Professio nal Building 1..114 350.1.13.10 4.2.7.2.686 [id number] 044 [id number] [facility] 2019-12-30 07:35:00 2019-12-30 11:49:00 Hospital Encounter Glo Finn [facility] 1..114 350.1.13.10 4.2.7.2.686 [id number] [facility] 2019-12-30 07:35:00 2019-12-30 11:49:00 Outpatient R GLO FINN [facility] CASEY [id number] [facility] 2019-12-30 00:00:00 2019-12-30 00:00:00 Orders Only Doctor Unassigned, [facility] 1..114 350.1.13.10 4.2.7.2.686 [id number] [facility] 2019-12-19 08:02:28 2019-12-19 09:08:19 Office Visit Kendall Campa [facility] 1.2.840.114 350.1.13.10 4.2.7.2.686 [id number] [facility] 2019-12-01 15:15:00 2019-12-01 15:15:00 Outpatient R JOCELYN GREER [facility] [id number] [facility] 2019-10-26 14:45:00 2019-10-26 15:36:20 Outpatient R NIMISHA YING [facility] [id number] [facility] 2019-06-10 10:30:00 2019-06-10 12:20:48 Outpatient R TL ARANDA [facility] [id number] [facility] 2019-05-30 14:20:00 2019-05-30 17:18:22 Outpatient R DARRELL MAXWELL III [facility] [id number] [facility] 2019-05-24 08:45:00 2019-05-24 08:45:00 Outpatient JUHI REAL [facility] [id number] [facility] 2019-04-26 08:30:00 2019-04-26 09:03:15 Outpatient JUHI REAL [facility] [id number] [facility] 2019-01-12 15:30:00 2019-01-12 16:04:35 Outpatient NATIVIDAD GLASS [facility] [id number] [facility] Results Test Description Test Time Test Comments Results Result Co mments Source [facility] Iahwwen7258-45-22 17:39:08* Test Item Value Reference Range Interpretation Comme nts POC Glu (test code = 0057724197) 224 mg/dL 70-99 H POC Glu Comment 1 (test code = 0337578843) Notified RN/MD POC Performing Location (imani t code = 5076331144) [place] [address] Lab Interpretation (test cod e = 33126-5) Abnormal [facility] Xlrkuks7974-94-24 14:38:47* Test Item Value Reference Range Interpretation Comme nts POC Glu (test code = 6379850327) 184 mg/dL 70-99 H POC Performing Location (imani t code = 6136661713) [facility] Lab Interpretation (test cod e = 12517-7) Abnormal [facility] Nsfqunz3081-55-51 08:23:44* Test Item Value Reference Range Interpretation Comme nts POC Glu (test code = 2931232308) 142 mg/dL 70-99 H POC Glu Comment 1 (test code = 8519121905) Notified RN/MD POC Performing Location (imani t code = 1803592682) [facility] Lab Interpretation (test cod e = 16051-2) Abnormal [facility] [place] [place] 12 lead (arrhythmia)2025-04-11 19:39:17* Test Item Value Reference Range Interpretation Comme nts Ventricular Rate (test code = 3291110977) BPM Atrial Rate (test code = 3517899789) BPM DE Interval (test code = 7027234731) 152 ms QRS Duration (test code = 1054757434) 86 ms QT/QTc (test code = 5539192712) 390 ms QTc Calculation (test code = 9620146079) 412 ms P-[place] (test code = 9286684170) degrees R-[place] (test code = 3079621360) degrees T-[place] (test code = 9268975326) degrees IMP (test code = IMP) PXN (test code = PXN) [facility]2025-05-20 17:10:20* Test Item Value Reference Range Interpretation Comme nts POC Glu (test code = 7761815969) 186 mg/dL 70-99 H POC Glu Comment 1 (test code = 6171622885) Notified RN/MD POC Performing Location (imani t code = 8900166084) [facility] Lab Interpretation (test cod e = 64765-5) Abnormal [facility] Vwcirpf7130-74-98 18:32:59* Test Item Value Reference Range Interpretation Comme nts POC Glu (test code = 3190415780) 84 mg/dL 70-99 POC Performing Location (imani t code = 8399163216) ER [facility] Uefblwm6787-75-50 14:18:26* Test Item Value Reference Range Interpretation Comme nts POC Glu (test code = 4739561289) 84 mg/dL 70-99 POC Performing Location (imani t code = 6732945808) [facility] Wbexycq6110-97-96 07:46:54* Test Item Value Reference Range Interpretation Comme nts POC Glu (test code = 2152467498) 197 mg/dL 70-99 H POC Performing Location (imani t code = 5613320719) ER/EDTU Lab Interpretation (test cod e = 21965-4) Abnormal [facility] GLUCOSE (AUTOMATED)2024-08-25 16:36:35* Test Item Value Reference Range Interpretation Comme nts POCT GLU (test code = 1585410343) 304 mg/dL 70-110 H Lab Interpretation (test cod e = 88634-0) Abnormal [facility] GLUCOSE (AUTOMATED)2024-08-25 01:27:39* Test Item Value Reference Range Interpretation Comme nts POCT GLU (test code = 9021868172) 134 mg/dL 70-110 H Lab Interpretation (test cod e = 09815-1) Abnormal [facility] GLUCOSE (AUTOMATED)2024-08-24 23:32:04* Test Item Value Reference Range Interpretation Comme nts POCT GLU (test code = 7107703441) 103 mg/dL 70-110 Lab Interpretation (test cod e = 08043-4) Normal [facility] GLUCOSE (AUTOMATED)2024-08-24 21:25:39* Test Item Value Reference Range Interpretation Comme nts POCT GLU (test code = 8879083334) 175 mg/dL 70-110 H Lab Interpretation (test cod e = 22277-7) Abnormal [facility] GLUCOSE (AUTOMATED)2024-08-24 19:29:36* Test Item Value Reference Range Interpretation Comme nts POCT GLU (test code = 9611622461) 224 mg/dL 70-110 H Lab Interpretation (test cod e = 44556-2) Abnormal [facility] GLUCOSE (AUTOMATED)2024-08-24 18:32:07* Test Item Value Reference Range Interpretation Comme nts POCT GLU (test code = 8253198953) 269 mg/dL 70-110 H Lab Interpretation (test cod e = 66159-1) Abnormal [facility] GLUCOSE (AUTOMATED)2024-08-24 17:47:07* Test Item Value Reference Range Interpretation Comme nts POCT GLU (test code = 0305685114) 202 mg/dL 70-110 H Lab Interpretation (test cod e = 61832-1) Abnormal [facility] GLUCOSE (AUTOMATED)2024-08-24 16:29:35* Test Item Value Reference Range Interpretation Comme nts POCT GLU (test code = 1252519101) 224 mg/dL 70-110 H Lab Interpretation (test cod e = 74733-5) Abnormal [facility] GLUCOSE (AUTOMATED)2024-08-24 15:25:37* Test Item Value Reference Range Interpretation Comme nts POCT GLU (test code = 7583029329) 206 mg/dL 70-110 H Lab Interpretation (test cod e = 77330-8) Abnormal [facility] GLUCOSE (AUTOMATED)2024-08-24 14:25:36* Test Item Value Reference Range Interpretation Comme nts POCT GLU (test code = 1651144647) 148 mg/dL 70-110 H Lab Interpretation (test cod e = 31322-6) Abnormal [facility] GLUCOSE (AUTOMATED)2024-08-24 13:32:06* Test Item Value Reference Range Interpretation Comme nts POCT GLU (test code = 5543685725) 87 mg/dL 70-110 Lab Interpretation (test cod e = 23388-6) Normal [facility] GLUCOSE (AUTOMATED)2024-08-24 12:30:07* Test Item Value Reference Range Interpretation Comme nts POCT GLU (test code = 3765484015) 87 mg/dL 70-110 Lab Interpretation (test cod e = 33311-0) Normal [facility] GLUCOSE (AUTOMATED)2024-08-24 11:39:08* Test Item Value Reference Range Interpretation Comme nts POCT GLU (test code = [id number]) 82 mg/dL 70-110 Lab Interpretation (test cod e = 61434-8) Normal [facility] GLUCOSE (AUTOMATED)2024-08-24 10:33:04* Test Item Value Reference Range Interpretation Comme nts POCT GLU (test code = [id number]) 83 mg/dL 70-110 Lab Interpretation (test cod e = 40399-4) Normal [facility] GLUCOSE (AUTOMATED)2024-08-24 09:21:05* Test Item Value Reference Range Interpretation Comme nts POCT GLU (test code = 1646334052) 80 mg/dL 70-110 Lab Interpretation (test cod e = 38185-8) Normal [facility] GLUCOSE (AUTOMATED)2024-08-24 08:32:34* Test Item Value Reference Range Interpretation Comme nts POCT GLU (test code = 1473967955) 86 mg/dL 70-110 Lab Interpretation (test cod e = 39327-0) Normal [facility] GLUCOSE (AUTOMATED)2024-08-24 07:42:04* Test Item Value Reference Range Interpretation Comme nts POCT GLU (test code = 4045034376) 91 mg/dL 70-110 Lab Interpretation (test cod e = 85035-9) Normal [facility] [facility] GLUCOSE (AUTOMATED)2024-08-24 06:35:32* Test Item Value Reference Range Interpretation Comme nts POCT GLU (test code = 4274043670) 83 mg/dL 70-110 Lab Interpretation (test cod e = 94903-8) [facility] Hrp-Lcb8142-90-02 05:50:54* Test Item Value Reference Range Interpretation Comme nts NT-proBNP (test code = 55660-4) 181 pg/mL <=125 RJ (test code = RJ) Result Indeterminate-Consid er causes of NT-proBNP elevation other than Heart failure such as acute coronary syndrome, pulmonary embolism, pulmonary hypertension, sepsis, stroke, and renal dysfunction. Lab Interpretation (test code = 67419-3) Abnormal [facility] GLUCOSE (AUTOMATED)2024-08-24 05:19:32* Test Item Value Reference Range Interpretation Comme nts POCT GLU (test code = 9062735230) 91 mg/dL 70-110 Lab Interpretation (test cod e = 01337-1) Normal [facility] GLUCOSE (AUTOMATED)2024-08-24 04:25:02* Test Item Value Reference Range Interpretation Comme nts POCT GLU (test code = 9724037264) 104 mg/dL 70-110 Lab Interpretation (test cod e = 16642-9) Normal [facility] GLUCOSE (AUTOMATED)2024-08-24 03:30:06* Test Item Value Reference Range Interpretation Comme nts POCT GLU (test code = 2634417973) 81 mg/dL 70-110 Lab Interpretation (test cod e = 92658-8) Normal [facility] GLUCOSE (AUTOMATED)2024-08-24 02:33:07* Test Item Value Reference Range Interpretation Comme nts POCT GLU (test code = 3248838110) 104 mg/dL 70-110 Lab Interpretation (test cod e = 42843-6) Normal [facility] GLUCOSE (AUTOMATED)2024-08-24 01:43:39* Test Item Value Reference Range Interpretation Comme nts POCT GLU (test code = 1432388482) 91 mg/dL 70-110 Lab Interpretation (test cod e = 06470-3) Normal [facility] GLUCOSE (AUTOMATED)2024-08-24 00:29:59* Test Item Value Reference Range Interpretation Comme nts POCT GLU (test code = 8289619843) 86 mg/dL 70-110 Lab Interpretation (test cod e = 77273-0) Normal [facility] GLUCOSE (AUTOMATED)2024-08-23 23:40:37* Test Item Value Reference Range Interpretation Comme nts POCT GLU (test code = 0437175857) 107 mg/dL 70-110 Lab Interpretation (test cod e = 73386-6) Normal [facility] GLUCOSE (AUTOMATED)2024-08-23 23:19:03* Test Item Value Reference Range Interpretation Comme nts POCT GLU (test code = 6163790004) 105 mg/dL 70-110 Lab Interpretation (test cod e = 56579-3) Normal [facility] GLUCOSE (AUTOMATED)2024-08-23 22:17:36* Test Item Value Reference Range Interpretation Comme nts POCT GLU (test code = 0328273432) 77 mg/dL 70-110 Lab Interpretation (test cod e = 89224-3) [facility] GLUCOSE (AUTOMATED)2024-08-23 21:24:08* Test Item Value Reference Range Interpretation Comme nts POCT GLU (test code = 3617333975) 70 mg/dL 70-110 Lab Interpretation (test cod e = 19028-9) Normal [facility] GLUCOSE (AUTOMATED)2024-08-23 20:19:04* Test Item Value Reference Range Interpretation Comme nts POCT GLU (test code = 2911707333) 109 mg/dL 70-110 Lab Interpretation (test cod e = 32130-1) Normal [facility] GLUCOSE (AUTOMATED)2024-08-23 19:30:02* Test Item Value Reference Range Interpretation Comme nts POCT GLU (test code = 2173864233) 134 mg/dL 70-110 H Lab Interpretation (test cod e = 87760-6) Abnormal [facility] GLUCOSE (AUTOMATED)2024-08-23 17:00:32* Test Item Value Reference Range Interpretation Comme nts POCT GLU (test code = 6518562065) 119 mg/dL 70-110 H Lab Interpretation (test cod e = 16522-2) Abnormal [facility] Glucose (Age >30 Days)2024-08-23 16:05:00 * Test Item Value Reference Range Interpretation Comme nts POCT Glu (age>30days) (test code = 3342) 123 mg/dL 70-110 A ED provider informed Lab Interpretation (test code = 86643-3) Abnormal [facility] GLUCOSE(AGE >30DAYS)2024-08-23 15:55:00* Test Item Value Reference Range Interpretation Comme nts Lab Interpretation (test cod e = 82808-6) Normal [facility] GLUCOSE (AUTOMATED)2024-08-23 15:51:32* Test Item Value Reference Range Interpretation Comme nts POCT GLU (test code = 9753680067) 38 mg/dL 70-110 LL Lab Interpretation (test cod e = 09631-2) Abnormal [facility]. Metabolic Panel (56538)2024-08-23 15:18:48* Test Item Value Reference Range Interpretation Comme nts NA (test code = 4047585305) 136 mmol/L 135-145 K (test code = 1575926277) 3.6 mmol/L 3.5-5.0 CL (test code = 1245471748) 106 mmol/L 98-108 CO2 TOTAL (test code = 5082025225) 19 mmol/L 23-31 L AGAP (test code = 2705036209) 11 2-16 BUN (test code = 5248366420) 54 mg/dL 7-23 H GLUCOSE (test code = 8455201611) 56 mg/dL 70-110 L CREATININE (test code = 2160-0) 1.51 mg/dL 0.60-1.25 H TOTAL BILI (test code = 0603602085) 0.4 mg/dL 0.1-1.1 CALCIUM (test code = 6645736433) 9.0 mg/dL 8.6-10.6 T PROTEIN (test code = 9970847451) 7.4 g/dL 6.3-8.2 ALBUMIN (test code = 9081224503) 4.3 g/dL 3.5-5.0 ALK PHOS (test code = 9822216378) 85 U/L 34-122 ALTv (test code = 1742-6) 24 U/L 5-50 AST(SGOT) (test code = 1248435292) 22 U/L 13-40 eGFR (test code = 15264-4) 49.4 mL/min/1.73m2 CKD-EPI eGFR (2020). Assuming creatinine has been stable day-to-day for at least three months, the eGFR indicates Category G3a (45 - 59 mL/min/1.73 m2) Lab Interpretation (test code = 30695-8) Abnormal [facility] with [id number] 14:58:25* Test Item Value Reference Range Interpretation [...] 32.5 g/dL 31.2-35.0 RDW-SD (test code = 39516-9) 47.4 fL 38.5-51.6 RDW-CV (test code = 788-0) 14.5 % 12.1-15.4 PLT (test code = 777-3) 251 150-328 MPV (test code = 84476-8) 9.6 fL 9.8-13.0 L NRBC/100 WBC (test code = 4894311229) 0.0 0.0-10.0 NRBC x10^3 (test code = 3664385302) See_Comment [Automated message] The system which generated this result transmitted reference range: 10*3/?L. The reference range was not used to interpret this result as normal/abnormal. GRAN MAT (NEUT) % (test code = 770-8) 88.2 % IMM GRAN % (test code = 8456610468) 0.90 % LYMPH % (test code = 736-9) 4.8 % MONO % (test code = 5905-5) 5.8 % EOS % (test code = 713-8) 0.0 % BASO % (test code = 706-2) 0.3 % GRAN MAT x10^3(ANC) (test code = 8920822281) 10.04 10*3/uL 1.99-6.95 H IMM GRAN x10^3 (test code = 5516358336) 0.10 10*3/uL 0.00-0.06 H LYMPH x10^3 (test code = 731-0) 0.55 10*3/uL 1.09-3.23 L MONO x10^3 (test code = 742-7) 0.66 10*3/uL 0.36-1.02 EOS x10^3 (test code = 711-2) 0.06-0.53 L BASO x10^3 (test code = 704-7) 0.03 10*3/uL 0.01-0.09 Lab Interpretation (test code = 67949-3) [facility]-23 14:57:59* Test Item Value Reference Range Interpretation Comme nts POCT GLU (test code = 9338057947) 78 mg/dL 70-110 Lab Interpretation (test cod e = 75027-2) Normal [facility]+VCOOX+NA+K+GLU+CA2+2024-08-23 14:47:11* Test Item Value Reference Range Interpretation Comme nts PH (test code = 1210692909) 7.26 7.32-7.42 L PCO2 TATIANA (test code = 5617972401) 51 41-51 PO2 TATIANA (test code = 2681309533) 21 25-40 L HCO3 TATIANA (test code = 0849187632) 22 24-28 L AC VBE(BEAKER) (test code = 7729948926) -5.2 mEq/L THB TATIANA (test code = 9773947051) 12.4 g/dL 13.5-18.0 L %O2HB TATIANA (test code = 5569867550) 33.0 % 52.0-63.0 L %COHB TATIANA (test code = 9743183500) 0.1 % 0.0-1.5 %METHB TATIANA (test code = 4873283140) 1.1 % 0.4-1.5 VOL%O2 TATIANA (test code = 3452943034) 5.8 % 6.0-12.0 L NA (test code = 7314133348) 136 mmol/L 135-145 K+ (test code = 8995584767) 3.8 mmol/L 3.5-5.0 AC CA IONZ (test code = 2038076131) 5.00 mg/dL 4.50-5.30 GLUCOSE (test code = 6292030578) 46 mg/dL 70-110 LL Lab Interpretation (test cod e = 62716-2) [facility]normal [facility] Whole Oxneh0574-28-07 14:45:07* Test Item Value Reference Range Interpretation Comme nts LACTIC ACID (test code = 0969182441) 1.25 mmol/L 0.50-2.20 Lab Interpretation (test cod e = 14001-6) Normal [facility] GLUCOSE (AUTOMATED)2024-08-23 14:38:03* Test Item Value Reference Range Interpretation Comme [facility] (test code = 8266969922) 57 mg/dL 70-110 L Lab Interpretation (test cod e = 82174-7) Abnormal [facility] GLUCOSE (AUTOMATED)2024-08-23 14:18:02* Test Item Value Reference Range Interpretation Comme nts POCT GLU (test code = 5890252184) 40 mg/dL 70-110 LL Lab Interpretation (test cod e = 80767-1) Abnormal [facility] GLUCOSE (AUTOMATED)2024-07-01 21:27:12* Test Item Value Reference Range Interpretation Comme nts POCT GLU (test code = 3796590257) 189 mg/dL 70-110 H Lab Interpretation (test cod e = 30744-9) Abnormal [facility] GLUCOSE (AUTOMATED)2024-07-01 17:43:43* Test Item Value Reference Range Interpretation Comme nts POCT GLU (test code = 4775887823) 252 mg/dL 70-110 H Lab Interpretation (test cod e = 12740-8) Abnormal [facility] GLUCOSE (AUTOMATED)2024-07-01 13:20:21* Test Item Value Reference Range Interpretation Comme nts POCT GLU (test code = 5851174692) 157 mg/dL 70-110 H Lab Interpretation (test cod e = 66190-1) Abnormal [facility] GLUCOSE (AUTOMATED)2024-07-01 00:48:27* Test Item Value Reference Range Interpretation Comme nts POCT GLU (test code = 2694874827) 202 mg/dL 70-110 H Lab Interpretation (test cod e = 93809-2) Abnormal [facility] GLUCOSE (AUTOMATED)2024-06-30 21:25:25* Test Item Value Reference Range Interpretation Comme nts POCT GLU (test code = 1575702896) 214 mg/dL 70-110 H Lab Interpretation (test cod e = 27217-8) Abnormal [facility] GLUCOSE (AUTOMATED)2024-06-30 16:15:38* Test Item Value Reference Range Interpretation Comme nts POCT GLU (test code = 5583145382) 294 mg/dL 70-110 H Lab Interpretation (test cod e = 71100-8) Abnormal [facility] GLUCOSE (AUTOMATED)2024-06-30 12:52:21* Test Item Value Reference Range Interpretation Comme nts POCT GLU (test code = 9696311453) 143 mg/dL 70-110 H Lab Interpretation (test cod e = 86135-9) Abnormal [facility] GLUCOSE (AUTOMATED)2024-06-30 02:04:07* Test Item Value Reference Range Interpretation Comme nts POCT GLU (test code = 9531016498) 270 mg/dL 70-110 H Lab Interpretation (test cod e = 77393-6) Abnormal [facility] GLUCOSE (AUTOMATED)2024-06-29 21:21:05* Test Item Value Reference Range Interpretation Comme nts POCT GLU (test code = 1089126480) 154 mg/dL 70-110 H Lab Interpretation (test cod e = 13159-1) Abnormal [facility] GLUCOSE (AUTOMATED)2024-06-29 16:43:53* Test Item Value Reference Range Interpretation Comme nts POCT GLU (test code = 7271350524) 246 mg/dL 70-110 H Lab Interpretation (test cod e = 03798-1) Abnormal [facility] GLUCOSE (AUTOMATED)2024-06-29 12:45:39* Test Item Value Reference Range Interpretation Comme nts POCT GLU (test code = 4600757662) 242 mg/dL 70-110 H Lab Interpretation (test cod e = 08253-5) Abnormal [facility] GLUCOSE (AUTOMATED)2024-06-29 02:41:42* Test Item Value Reference Range Interpretation Comme nts POCT GLU (test code = 7972231821) 218 mg/dL 70-110 H Lab Interpretation (test cod e = 99427-6) Abnormal [facility] GLUCOSE (AUTOMATED)2024-06-28 22:50:05* Test Item Value Reference Range Interpretation Comme nts POCT GLU (test code = 8386115060) 162 mg/dL 70-110 H Lab Interpretation (test cod e = 58638-7) Abnormal [facility] GLUCOSE (AUTOMATED)2024-06-28 21:57:09* Test Item Value Reference Range Interpretation Comme nts POCT GLU (test code = 6901040286) 121 mg/dL 70-110 H Lab Interpretation (test cod e = 30030-8) Abnormal [facility] GLUCOSE (AUTOMATED)2024-06-28 16:58:11* Test Item Value Reference Range Interpretation Comme nts POCT GLU (test code = 7903746824) 255 mg/dL 70-110 H Lab Interpretation (test cod e = 54127-1) Abnormal [facility] GLUCOSE (AUTOMATED)2024-06-28 13:03:41* Test Item Value Reference Range Interpretation Comme nts POCT GLU (test code = 1864086474) 152 mg/dL 70-110 H Lab Interpretation (test cod e = 07685-8) Abnormal [facility] GLUCOSE (AUTOMATED)2024-06-28 05:08:20* Test Item Value Reference Range Interpretation Comme nts POCT GLU (test code = 8434163076) 195 mg/dL 70-110 H Lab Interpretation (test cod e = 47275-1) Abnormal [facility] GLUCOSE (AUTOMATED)2024-06-28 02:11:33* Test Item Value Reference Range Interpretation Comme nts POCT GLU (test code = 8528806384) 321 mg/dL 70-110 H Lab Interpretation (test cod e = 34709-2) [facility]normal [facility]ST 1 [id number] 22:39:10ORDERING PHYSICIAN: JOVANNA SANDRA. HISTORY: L PICC placement TECHNIQUE: AP COMPARISON: 06/19/2024 radiograph report FINDINGS: Lungs: ?A left PICC line terminates at the cavoatrial junction. Lungs areclear. Pleura: ?No effusion or pleural disease is seen. ?No pneumothorax. Mediastinum/Daysi: ?No massesor adenopathy. Heart: ?The heart is not enlarged. Other: ?No acute osseous abnormality is seen.[facility] GLUCOSE (AUTOMATED)2024-06-27 21:59:58* Test Item Value Reference Range Interpretation Comme nts POCT GLU (test code = 1436637414) 196 mg/dL 70-110 H Lab Interpretation (test cod e = 87837-5) Abnormal [facility] ([facility])2024-06-27 21:33:03 * Test Item Value Reference Range Interpretation Comme nts Height (test code = 0565662506) 70 in Weight (test code = 4258449324) 195 lbs Systolic BP (test code = 4328333014) 124 mmHg Diastolic BP (test code = 3991814564) 63 mmHg Heart Rate (test code = 6219959999) 64 bpm BSA (test code = 3213945969) 2.06 m2 Radiology Study observation (narrative) (test code = 56414-1) RJ (test code = RJ) ?Left?Ventricle: Left [...] shunt. The probe was inserted by the resource agent. There was no probe insertion difficulty.There were 1 attempts to insert the probe. Probe in 1216. Probe out 1229. Sedation and monitoring provided by anesthesia, see Epic documentation. There were no complications during the procedure. [facility] GLUCOSE (AUTOMATED)2024-06-27 19:49:24* Test Item Value Reference Range Interpretation Comme nts POCT GLU (test code = 9328385222) 184 mg/dL 70-110 H Lab Interpretation (test cod e = 82320-4) Abnormal [facility] GLUCOSE (AUTOMATED)2024-06-27 16:43:02* Test Item Value Reference Range Interpretation Comme nts POCT GLU (test code = 3186897721) 172 mg/dL 70-110 H Lab Interpretation (test cod e = 86503-3) Abnormal [facility] GLUCOSE (AUTOMATED)2024-06-27 14:14:12* Test Item Value Reference Range Interpretation Comme nts POCT GLU (test code = 1907322422) 131 mg/dL 70-110 H Lab Interpretation (test cod e = 21005-5) [facility] 13:27:58* Test Item Value Reference Range Interpretation Comme nts POCT GLU (test code = 9487448231) 135 mg/dL 70-110 H Lab Interpretation (test cod e = 86716-9) Abnormal [facility] GLUCOSE (AUTOMATED)2024-06-27 01:38:29* Test Item Value Reference Range Interpretation Comme nts POCT GLU (test code = 4395623548) 125 mg/dL 70-110 H Lab Interpretation (test cod e = 70843-0) Abnormal [facility] GLUCOSE (AUTOMATED)2024-06-26 22:04:43* Test Item Value Reference Range Interpretation Comme nts POCT GLU (test code = 4259245569) 195 mg/dL 70-110 H Lab Interpretation (test cod e = 06599-6) Abnormal [facility] GLUCOSE (AUTOMATED)2024-06-26 17:27:34* Test Item Value Reference Range Interpretation Comme nts POCT GLU (test code = 6490620510) 181 mg/dL 70-110 H Lab Interpretation (test cod e = 88072-1) Abnormal [facility] GLUCOSE (AUTOMATED)2024-06-26 13:21:13* Test Item Value Reference Range Interpretation Comme nts POCT GLU (test code = 8840629114) 109 mg/dL 70-110 Lab Interpretation (test cod e = 35106-0) Normal [facility] GLUCOSE (AUTOMATED)2024-06-26 02:30:05* Test Item Value Reference Range Interpretation Comme nts POCT GLU (test code = 1359803604) 146 mg/dL 70-110 H Lab Interpretation (test cod e = 97471-8) Abnormal [facility] GLUCOSE (AUTOMATED)2024-06-25 21:46:31* Test Item Value Reference Range Interpretation Comme nts POCT GLU (test code = 5432297192) 99 mg/dL 70-110 Lab Interpretation (test cod e = 51179-8) Normal [facility] GLUCOSE (AUTOMATED)2024-06-25 16:57:02* Test Item Value Reference Range Interpretation Comme nts POCT GLU (test code = 8654979097) 147 mg/dL 70-110 H Lab Interpretation (test cod e = 00062-7) Abnormal [facility] GLUCOSE (AUTOMATED)2024-06-25 13:21:57* Test Item Value Reference Range Interpretation Comme nts POCT GLU (test code = 0264920494) 123 mg/dL 70-110 H Lab Interpretation (test cod e = 05711-2) Abnormal [facility] GLUCOSE (AUTOMATED)2024-06-25 00:59:00* Test Item Value Reference Range Interpretation Comme nts POCT GLU (test code = 3102581916) 144 mg/dL 70-110 H Lab Interpretation (test cod e = 49684-6) Abnormal [facility] GLUCOSE (AUTOMATED)2024-06-24 22:08:33* Test Item Value Reference Range Interpretation Comme nts POCT GLU (test code = 3603155669) 162 mg/dL 70-110 H Lab Interpretation (test cod e = 07945-2) Abnormal [facility] GLUCOSE (AUTOMATED)2024-06-24 17:10:12* Test Item Value Reference Range Interpretation Comme nts POCT GLU (test code = 0259325820) 187 mg/dL 70-110 H Lab Interpretation (test cod e = 55319-6) Abnormal [facility] GLUCOSE (AUTOMATED)2024-06-24 13:28:01* Test Item Value Reference Range Interpretation Comme nts POCT GLU (test code = 6191981710) 160 mg/dL 70-110 H Lab Interpretation (test cod e = 21212-8) Abnormal [facility] GLUCOSE (AUTOMATED)2024-06-24 01:00:38* Test Item Value Reference Range Interpretation Comme nts POCT GLU (test code = 4049661657) 95 mg/dL 70-110 Lab Interpretation (test cod e = 79702-1) Normal [facility] Arterial Blood Gas.2024-06-23 22:45:24* Test Item Value Reference Range Interpretation Comme nts PH (test code = 2) 7.42 7.35-7.45 PCO2 (test code = 9100213208) 42 35-45 PO2 (test code = 2323981114) 90 80-100 HCO3 (test code = 2475256327) 27 22-26 H BE (test code = 2326462914) 2.3 -3.0-3.0 Lab Interpretation (test cod e = 41088-0) [facility]normal [facility]an[facility] (TTE) [id number] 22:12:07* Test Item Value Reference Range Interpretation Comme nts Height (test code = 4224056334) 70 in Weight (test code = 7537470181) 202 lbs Systolic BP (test code = 2281970581) 187 mmHg Diastolic BP (test code = 5353265346) 89 mmHg Heart Rate (test code = 9821348836) 84 bpm LV GLS Endo Peak A2C () (test code = 1656815282) -22.00 % LV GLS Endo Peak A3C () (test code = 7216885616) -20.60 % LV GLS Endo Peak A4C () (test code = 6855469691) -24.20 % LV GLS Endo Peak Avg () (test code = 9642149896) -22.30 % BSA (test code = 7296210456) 2.10 m2 Ao root diam (test code = 4542198640) 4.10 cm Aortic root (test code = 5728706757) 4.1 cm Ao root annulus (test code = 5371041335) 4.1 cm LVOT diameter (test code = 5009164071) 2.02 cm LVOT area (test code = 6768960418) 3.20 cm2 LA size (test code = 5301435632) 2.9 cm LVIDD (test code = 0086351660) 4.20 cm Left Ventricular End Diastolic Volume by Teichholz Method (test code = 7057569) 77.8 mL IVS (test code = 6538288841) 0.97 cm Interventricular Septum Diastolic Thickness by 2D (test code = 2206017) 0.97 cm LVPWD (test code = 4558227477) 0.99 cm PW (test code = 5194177487) 0.99 cm 0.6-1.1 EF(Teich) (test code = 1671916606) 63.90 % LVIDS (test code = 1705525958) 2.70 cm Left Ventricular End Systolic Volume by Teichholz Method (test code = 0309037) 28.1 mL FS (test code = 6190882698) 34 % EF - 2D (test code = 17630804) 63.90 % LAV(MOD-sp4) (test code = 9860345066) 70.90 mL E wave decelartion time (test code = 6609020441) 0.25 s MV Peak A Delfino (test code = 0425272709) 117.4 cm/s MV stenosis pressure 1/2 time (test code = 2275095021) 71.2 ms MV Prop V (test code = 9096356490) 40.80 cm/s MV E/e' septal (test code = 4898406336) 8.2 cm/s Tapse (test code = 4044039825) 2.09 cm LVOT stroke volume (test code = 1011247940) 94.10 cm3 LVOT peak delfino (test code = 3288242641) 126.8 cm/s LVOT mn grad (test code = 8320400174) 3.4 mmHg AV LVOT peak gradient (test code = 0139594851) 6.4 mmHg LVOT peak VTI (test code = 3193872300) 29.4 cm LV V1 mean (test code = 1829155158) 87.90 cm/s Aortic valve mean velocity (test code = 1669426447) 102.8 cm/s Ao peak delfino (test code = 0021782526) 154.7 cm/s Ao VTI (test code = 4523790335) 32.2 cm AV area by cont VTI (test code = 0471432467) 2.9 cm2 AV area peak delfino (test code = 6425125753) 2.6 cm2 Ao max PG (test code = 3594963881) 9.60 mm[Hg] AV peak gradient (test code = 5325761152) 9.6 mmHg AV valve area (test code = 3678011349) 2.90 cm2 AV mean gradient (test code = 3428110649) 4.7 mmHg Radiology Study observation (narrative) (test code = 59219-6) RJ (test code = RJ) ?Left?Ventricle: Left [...] color flow Doppler, spectral Doppler and strain. [facility]2024-[facility]-23 22:04:17* Test Item Value Reference Range Interpretation Comme [facility] PO[facility]U (test code = 9798544770) 120 mg/dL 70-110 H Lab Interpretation (test cod e = 35943-7) Abnormal [facility] IrvingGlycosylated Hemoglobin (A1C)2024-06-23 19:21:32* Test Item Value Reference Range Interpretation Comme [facility] HGB A1C (test code = 4548-4) 7.5 % 4.0-5.7 H RJ (test code = RJ) Reference RangesNormal: <5.7%Prediabetes: 5.7 - 6.4%Diabetes: > 6.5% Lab Interpretation (test code = 77663-7) Abnormal [facility] C[facility] SP[facility] WO [id number] 18:09:29CT CERVICAL SPINE WO CONTRAST HISTORY: ?Neck [...] notable at C5-C7. The prevertebral soft tissues areunremarkable.[facility] WO [id number] 18:05:47EXAM: CT HEAD WO CONTRAST HISTORY: 69 [...] contusion/small hematoma. calvarium and central skullbase are unremarkable.[facility] Irving[facility]rop[facility] I 2024-06-23 17:58:20* Test Item Value Reference Range Interpretation Comme nts TROPONIN I (test code = 9635472843) <=0.034 RJ (test code = RJ) Reference [...] of biotin. Lab Interpretation (test code = 82140-0) Normal [facility] Xkz-Kpi0506-55-01 17:55:37* Test Item Value Reference Range Interpretation Comme [facility] NT-proBNP (test code = 49413-9) 257 pg/mL <=125 RJ (test code = RJ) Result Indeterminate-Consid er causes of NT-proBNP elevation other than Heart failure such as acute coronary syndrome, pulmonary embolism, pulmonary hypertension, sepsis, stroke, and renal dysfunction. Lab Interpretation (test code = 33242-5) [facility]normal [facility] IrvingProthrombin Time / [id number] 17:48:39* Test Item Value Reference Range Interpretation Com[facility] PROTIME PATIENT (test code = 5964-2) 12.8 10.1-12.6 H INR (test code = 6301-6) 1.1 Normal INR <1.1; Warfarin Therapeutic range 2.0 to 3.0 or 2.5 to 3.5, depending upon the indications. Lab Interpretation (test code = 05682-1) [facility]normal [facility] IrvingActivated Partial Thrmplas [id number] 17:48:39* Test Item Value Reference Range Interpretation Comme [facility] APTT Patient (test code = 3173-2) 32 26-36 RJ (test code = RJ) The [facility] patient population mean normal value for aPTT is 30 seconds. Lab Interpretation (test code = 59268-7) Normal [facility] IrvingComp. Metabolic Panel (35032)2024-06-23 17:46:57* Test Item Value Reference Range Interpretation Comme [facility] NA (test code = 3354743060) 139 mmol/L 135-145 K (test code = 0720949517) 3.5 3.5-5.0 CL (test code = 7353405385) 102 mmol/L 98-108 CO2 TOTAL (test code = 3423088145) 27 mmol/L 23-31 AGAP (test code = 4778172392) 10 2-16 BUN (test code = 7018683855) 25 mg/dL 7-23 H GLUCOSE (test code = 8177337236) 242 mg/dL 70-110 H CREATININE (test code = 2160-0) 1.00 mg/dL 0.60-1.25 TOTAL BILI (test code = 3525673904) 0.5 mg/dL 0.1-1.1 CALCIUM (test code = 6206938804) 8.8 mg/dL 8.6-10.6 T PROTEIN (test code = 2167731544) 7.3 g/dL 6.3-8.2 ALBUMIN (test code = 6884133951) 3.9 g/dL 3.5-5.0 ALK PHOS (test code = 9464670684) 141 U/L 34-122 H ALTv (test code = 1742-6) 16 U/L 5-50 AST(SGOT) (test code = 8516900684) 24 U/L 13-40 eGFR (test code = 15106-3) 81.0 mL/min/1.73m2 CKD-EPI eGFR (2020). Assuming creatinine has been stable day-to-day for at least three months, the eGFR indicates Category G2 (60 - 89 mL/min/1.73 m2) Lab Interpretation (test code = 55544-0) Abnormal [facility] with Vfdu5174-98-48 17:38:39* Test Item Value Reference Range Interpretation [...] 31.6 g/dL 31.2-35.0 RDW-SD (test code = 43920-5) 44.2 fL 38.5-51.6 RDW-CV (test code = 788-0) 13.5 % 12.1-15.4 PLT (test code = 777-3) 346 150-328 H MPV (test code = 38457-3) 9.4 fL 9.8-13.0 L NRBC/100 WBC (test code = 7845636137) 0.0 0.0-10.0 NRBC x10^3 (test code = 0977254360) See_Comment [Automated messa ge] The system which generated this result transmitted reference range: 10*3/?L. The reference range was not used to interpret this result as normal/abnormal. GRAN MAT (NEUT) % (test code = 770-8) 74.6 % IMM GRAN % (test code = 3477589955) 1.00 % LYMPH % (test code = 736-9) 15.2 % MONO % (test code = 5905-5) 7.7 % EOS % (test code = 713-8) 1.2 % BASO % (test code = 706-2) 0.3 % GRAN MAT x10^3(ANC) (test code = 0636523928) 6.71 10*3/uL 1.99-6.95 IMM GRAN x10^3 (test code = 3253691360) 0.09 10*3/uL 0.00-0.06 H LYMPH x10^3 (test code = 731-0) 1.37 10*3/uL 1.09-3.23 MONO x10^3 (test code = 742-7) 0.69 10*3/uL 0.36-1.02 EOS x10^3 (test code = 711-2) 0.11 10*3/uL 0.06-0.53 BASO x10^3 (test code = 704-7) 0.03 10*3/uL 0.01-0.09 Lab Interpretation (test code = 74908-0) Abnormal [facility] IrvingLactic Acid Whole Pqfug0603-57-88 17:16:12* Test Item Value Reference Range Interpretation Comme nts LACTIC ACID (test code = 0603736819) 1.94 mmol/L 0.50-2.20 Lab Interpretation (test cod e = 78210-3) Normal [facility] IrvingBLOOD CULTURE [id number] 13:27:56* Test Item Value Reference Range Interpretation Comme nts Blood Culture-Aerobic (test code = 06077-9) Culture positive. See Blood Culture Workup for additional information. No growth AA Previous preliminary verified result was Order in Process on 06/19/2024 at 1801 CDT Blood Culture-Anaerobic (test code = 60239-6) Culture positive. See Blood Culture Workup for additional information. No growth AA Previous preliminary verified result was Order in Process on 06/19/2024 at 1801 CDT Lab Interpretation (test code = 43698-9) Abnormal [facility] IrvingGRAM POSITIVE BLOOD PATHOGENS DNA AFFPJ-ISQYBVUPM0509-96-29 19:17:54* Test Item Value Reference Range Interpretation Comments Staphylococcus aureus (test code = 68793-1) Positive Negative A mecA (test code = 05801-3) Positive Negative A RJ (test code = RJ) MRSA detected by DNA probe. ?See blood culture result for additionalsusceptibility testing information. Preferred therapy for MRSA bacteremia is vancomycin. Infectious Diseases consultation is recommended. Please contact the Antimicrobial Stewardship Program with questions.[facility] Pager: ?[phone] See blood culture result for additional information. Testing included eleven identification and three resistancemarker targets. Lab Interpretation (test code = 56393-7) Abnormal [facility] GLUCOSE (AUTOMATED)2024-06-19 21:59:53* Test Item Value Reference Range Interpretation Comme nts POCT GLU (test code = 0259217988) 93 mg/dL 70-110 Lab Interpretation (test cod e = 51216-7) Normal [facility] GLUCOSE (AUTOMATED)2024-06-19 21:29:59* Test Item Value Reference Range Interpretation Comme nts POCT GLU (test code = 9780165169) 58 mg/dL 70-110 L Lab Interpretation (test cod e = 68900-6) Abnormal [facility] IrvingN-Terminal Fjy-Omd0513-21-28 20:03:23* Test Item Value Reference Range Interpretation Comme [facility] NT-proBNP (test code = 17777-4) 269 pg/mL <=125 RJ (test code = RJ) Result Indeterminate-Consid er causes of NT-proBNP elevation other than Heart failure such as acute coronary syndrome, pulmonary embolism, pulmonary hypertension, sepsis, stroke, and renal dysfunction. Lab Interpretation (test code = 16174-1) Abnormal [facility] IrvingComp. Metabolic Panel (70472)2024-06-19 19:54:20* Test Item Value Reference Range Interpretation Comme nts NA (test code = 2286063021) 139 mmol/L 135-145 K (test code = 0776317727) 3.7 mmol/L 3.5-5.0 CL (test code = 5413744222) 104 mmol/L 98-108 CO2 TOTAL (test code = 9469180497) 29 mmol/L 23-31 AGAP (test code = 3617261724) 6 2-16 BUN (test code = 7272987002) 20 mg/dL 7-23 GLUCOSE (test code = 3978359637) 70 mg/dL 70-110 CREATININE (test code = 2160-0) 0.94 mg/dL 0.60-1.25 TOTAL BILI (test code = 1511115837) 1.0 mg/dL 0.1-1.1 CALCIUM (test code = 7971184231) 8.9 mg/dL 8.6-10.6 T PROTEIN (test code = 8956790452) 7.1 g/dL 6.3-8.2 ALBUMIN (test code = 1987396620) 3.5 g/dL 3.5-5.0 ALK PHOS (test code = 2470387771) 136 U/L 34-122 H ALTv (test code = 1742-6) 14 U/L 5-50 AST(SGOT) (test code = 3501665072) 29 U/L 13-40 eGFR (test code = 57143-3) 87.2 mL/min/1.73m2 CKD-EPI eGFR (2020). Assuming creatinine has been stable day-to-day for at least three months, the eGFR indicates Category G2 (60 - 89 mL/min/1.73 m2) Lab Interpretation (test code = 05689-1) Abnormal [facility] IrvingXR CHEST 1 [id number] 19:34:26PROCEDURE: XR CHEST 1 06/19/2024 2:07 PM CLINICAL INDICATION: hallucination COMPARISON: Radiograph of 04/03/2023 for FINDINGS: The lungs are hypoventilated which results and crowding of bronchovascularbundles. No lung consolidation. There is no pleural effusion. ?Nopneumothorax. The cardiac size is normal. No aggressive osseous lesion.[facility] with Ipuv9247-68-32 19:29:38* Test Item Value Reference Range Interpretation [...] 32.7 g/dL 31.2-35.0 RDW-SD (test code = 00482-7) 43.8 fL 38.5-51.6 RDW-CV (test code = 788-0) 13.5 % 12.1-15.4 PLT (test code = 777-3) 300 150-328 MPV (test code = 29642-1) 9.5 fL 9.8-13.0 L NRBC/100 WBC (test code = 3058602518) 0.0 0.0-10.0 NRBC x10^3 (test code = 5116283925) See_Comment [Automated messa ge] The system which generated this result transmitted reference range: 10*3/?L. The reference range was not used to interpret this result as normal/abnormal. GRAN MAT (NEUT) % (test code = 770-8) 76.5 % IMM GRAN % (test code = 6351735956) 0.70 % LYMPH % (test code = 736-9) 12.6 % MONO % (test code = 5905-5) 8.4 % EOS % (test code = 713-8) 1.4 % BASO % (test code = 706-2) 0.4 % GRAN MAT x10^3(ANC) (test code = 4401326242) 6.95 10*3/uL 1.99-6.95 IMM GRAN x10^3 (test code = 6448289513) 0.06 10*3/uL 0.00-0.06 LYMPH x10^3 (test code = 731-0) 1.14 10*3/uL 1.09-3.23 MONO x10^3 (test code = 742-7) 0.76 10*3/uL 0.36-1.02 EOS x10^3 (test code = 711-2) 0.13 10*3/uL 0.06-0.53 BASO x10^3 (test code = 704-7) 0.04 10*3/uL 0.01-0.09 Lab Interpretation (test code = 44177-3) Abnormal [facility] IrvingLactic Acid Whole Hhjlo2974-79-48 19:15:48* Test Item Value Reference Range Interpretation Comme nts LACTIC ACID (test code = 8837449042) 1.12 mmol/L 0.50-2.20 Lab Interpretation (test cod e = 81719-7) Normal [facility] IrvingCT HEAD WO [id number] 00:30:51FULL RESULT: Examination: CT HEAD WO CONTRAST on 06/16/2024 7:03 PM Clinical Indication: Daily fallsComparison: 06/15/2024, 24 hour prior Technique: Noncontrast imaging was obtained from base to vertex. Findings: Relative to the previous day's exam, there is no interval changeand no evidence of hemorrhage or other acute or traumatic lesion.[facility]. Metabolic Panel (41711)2024-06-16 00:49:02* Test Item Value Reference Range Interpretation Comme nts NA (test code = 5132073161) 136 mmol/L 135-145 K (test code = 4127512698) 4.2 mmol/L 3.5-5.0 CL (test code = 8309949680) 103 mmol/L 98-108 CO2 TOTAL (test code = 6121088613) 28 mmol/L 23-31 AGAP (test code = 0985497389) 5 2-16 BUN (test code = 2382746912) 21 mg/dL 7-23 GLUCOSE (test code = 3354650203) 88 mg/dL 70-110 CREATININE (test code = 2160-0) 0.97 mg/dL 0.60-1.25 TOTAL BILI (test code = 3723753919) 1.0 mg/dL 0.1-1.1 CALCIUM (test code = 9478254671) 8.6 mg/dL 8.6-10.6 T PROTEIN (test code = 8109911594) 6.8 g/dL 6.3-8.2 ALBUMIN (test code = 3128559327) 3.4 g/dL 3.5-5.0 L ALK PHOS (test code = 6356531458) 141 U/L 34-122 H ALTv (test code = 1742-6) 14 U/L 5-50 AST(SGOT) (test code = 0981662079) 23 U/L 13-40 eGFR (test code = 95119-1) 84.0 mL/min/1.73m2 CKD-EPI eGFR (2020). Assuming creatinine has been stable day-to-day for at least three months, the eGFR indicates Category G2 (60 - 89 mL/min/1.73 m2) Lab Interpretation (test code = 28619-7) Abnormal [facility] IrvingD-Bgkds7449-31-37 00:45:25* Test Item Value Reference Range Interpretation Comments D-DIMER (test code = 6131053573) 1.38 See_Comment H [Automated message] The system [...] a diagnosis. Lab Interpretation (test code = 45918-8) Abnormal [facility] IrvingCbc with Pstr2852-85-51 00:34:02* Test Item Value Reference Range Interpretation [...] 33.1 g/dL 31.2-35.0 RDW-SD (test code = 91284-7) 43.0 fL 38.5-51.6 RDW-CV (test code = 788-0) 13.2 % 12.1-15.4 PLT (test code = 777-3) 241 150-328 MPV (test code = 46810-2) 9.6 fL 9.8-13.0 L NRBC/100 WBC (test code = 9495052772) 0.0 0.0-10.0 NRBC x10^3 (test code = 6007927023) See_Comment [Automated messa ge] The system which generated this result transmitted reference range: 10*3/?L. The reference range was not used to interpret this result as normal/abnormal. GRAN MAT (NEUT) % (test code = 770-8) 77.2 % IMM GRAN % (test code = 0016420626) 0.40 % LYMPH % (test code = 736-9) 11.2 % MONO % (test code = 5905-5) 10.1 % EOS % (test code = 713-8) 0.9 % BASO % (test code = 706-2) 0.2 % GRAN MAT x10^3(ANC) (test code = 8205473826) 8.18 10*3/uL 1.99-6.95 H IMM GRAN x10^3 (test code = 8169028524) 0.04 10*3/uL 0.00-0.06 LYMPH x10^3 (test code = 731-0) 1.18 10*3/uL 1.09-3.23 MONO x10^3 (test code = 742-7) 1.07 10*3/uL 0.36-1.02 H EOS x10^3 (test code = 711-2) 0.09 10*3/uL 0.06-0.53 BASO x10^3 (test code = 704-7) 0.01-0.09 Lab Interpretation (test code = 42682-5) Abnormal [facility] IrvingLactic Acid Whole Zveez0004-20-92 00:22:09* Test Item Value Reference Range Interpretation Comme nts LACTIC ACID (test code = 1665085847) 1.33 mmol/L 0.50-2.20 Lab Interpretation (test cod e = 78917-6) Normal [facility] HEAD WO [id number] 23:53:17EXAM: CT HEAD WO CONTRAST HISTORY: 69 [...] clear. The calvariumand central skull base are unremarkable.[facility] GLUCOSE (AUTOMATED)2024-04-06 10:12:31* Test Item Value Reference Range Interpretation Comme nts POCT GLU (test code = 8770344941) 254 mg/dL 70-110 H Lab Interpretation (test cod e = 96784-0) Abnormal [facility] GLUCOSE (AUTOMATED)2024-04-06 09:35:12* Test Item Value Reference Range Interpretation Comme nts POCT GLU (test code = 7210979623) 349 mg/dL 70-110 H Lab Interpretation (test cod e = 25718-5) Abnormal [facility] GLUCOSE (AUTOMATED)2024-04-06 08:34:06* Test Item Value Reference Range Interpretation Comme nts POCT GLU (test code = 0429073007) 299 mg/dL 70-110 H Lab Interpretation (test cod e = 07106-5) Abnormal [facility] IrvingPOCT GLUCOSE (AUTOMATED)2024-04-06 07:58:40* Test Item Value Reference Range Interpretation Comme nts POCT GLU (test code = 5213315306) 446 mg/dL 70-110 H Lab Interpretation (test cod e = 76082-2) Abnormal [facility]p. Metabolic Panel (18919)2024-04-06 07:47:06* Test Item Value Reference Range Interpretation Comme nts NA (test code = 1474006817) 126 mmol/L 135-145 L K (test code = 1680808257) 4.4 mmol/L 3.5-5.0 CL (test code = 7840563776) 93 mmol/L 98-108 L CO2 TOTAL (test code = 6381271782) 27 mmol/L 23-31 AGAP (test code = 8837771486) 6 2-16 BUN (test code = 5304682617) 21 mg/dL 7-23 GLUCOSE (test code = 6703062272) 518 mg/dL 70-110 HH CREATININE (test code = 2160-0) 1.08 mg/dL 0.60-1.25 TOTAL BILI (test code = 3364260459) 0.7 mg/dL 0.1-1.1 CALCIUM (test code = 1579026057) 8.1 mg/dL 8.6-10.6 L T PROTEIN (test code = 4796727565) 6.6 g/dL 6.3-8.2 ALBUMIN (test code = 7190047505) 3.5 g/dL 3.5-5.0 ALK PHOS (test code = 0970645149) 160 U/L 34-122 H ALTv (test code = 1742-6) 15 U/L 5-50 AST(SGOT) (test code = 9024495134) 33 U/L 13-40 eGFR (test code = 66176-3) 73.8 mL/min/1.73m2 CKD-EPI eGFR (2020). Assuming creatinine has been stable day-to-day for at least three months, the eGFR indicates Category G2 (60 - 89 mL/min/1.73 m2) Lab Interpretation (test code = 05463-6) Abnormal [facility] IrvingMagnesium2024-05-15 07:44:19* Test Item Value Reference Range Interpretation Comme nts MAGNESIUM (test code = 6733442093) 1.6 mg/dL 1.7-2.4 L Lab Interpretation (test cod e = 50068-4) Abnormal [facility] IrvingPOCT GLUCOSE (AUTOMATED)2024-04-06 07:36:55* Test Item Value Reference Range Interpretation Comme nts POCT GLU (test code = 8860398163) 476 mg/dL 70-110 HH Lab Interpretation (test cod e = 45350-7) Abnormal [facility] IrvingCbc with Qlci1045-58-00 07:23:19* Test Item Value Reference Range Interpretation [...] 34.6 g/dL 31.2-35.0 RDW-SD (test code = 46089-6) 39.8 fL 38.5-51.6 RDW-CV (test code = 788-0) 12.2 % 12.1-15.4 PLT (test code = 777-3) 251 150-328 MPV (test code = 05540-1) 10.5 fL 9.8-13.0 NRBC/100 WBC (test code = 1920469528) 0.0 0.0-10.0 NRBC x10^3 (test code = 2469065151) See_Comment [Automated messa ge] The system which generated this result transmitted reference range: 10*3/?L. The reference range was not used to interpret this result as normal/abnormal. GRAN MAT (NEUT) % (test code = 770-8) 76.0 % IMM GRAN % (test code = 5165354179) 0.90 % LYMPH % (test code = 736-9) 11.5 % MONO % (test code = 5905-5) 10.5 % EOS % (test code = 713-8) 0.8 % BASO % (test code = 706-2) 0.3 % GRAN MAT x10^3(ANC) (test code = 0440207541) 9.08 10*3/uL 1.99-6.95 H IMM GRAN x10^3 (test code = 7477707091) 0.11 10*3/uL 0.00-0.06 H LYMPH x10^3 (test code = 731-0) 1.38 10*3/uL 1.09-3.23 MONO x10^3 (test code = 742-7) 1.26 10*3/uL 0.36-1.02 H EOS x10^3 (test code = 711-2) 0.10 10*3/uL 0.06-0.53 BASO x10^3 (test code = 704-7) 0.04 10*3/uL 0.01-0.09 Lab Interpretation (test code = 69250-9) Abnormal [facility] IrvingPOMT GLUCOSE (AUTOMATED)2024-04-06 06:45:34* Test Item Value Reference Range Interpretation Comme nts POCT GLU (test code = 4725288607) 495 mg/dL 70-110 HH Lab Interpretation (test cod e = 63335-7) Abnormal [facility] HEAD WO [id number] 20:17:39EXAMS: CT HEAD WO CONTRAST, CT CERVICAL [...] facetarthropathy, most pronounced at C5-C6 and C6-C7, unchanged.[facility] CERVICAL SPINE WO [id number] 20:17:39EXAMS: CT HEAD WO CONTRAST, CT CERVICAL [...] facetarthropathy, most pronounced at C5-C6 and C6-C7, unchanged.[facility] IrvingAmmonia, Ypelcm0339-13-27 19:25:25* Test Item Value Reference Range Interpretation Comme nts AMMONIA (test code = 6729586151) 9-33 L Lab Interpretation (test cod e = 05335-5) Abnormal [facility] IrvingXR FOOT 3+ VW [id number] 17:22:17XR FOOT 3+ VW RIGHT 04/03/2024 10:15 AM History: r/o fx/osteo midfoot Comparison: None Findings: 3 views of the right foot are received for interpretation. There is no fracture or dislocation. Soft tissues are unremarkable. Thereare no radiopaque foreign bodies. Joint spaces are preserved.[facility] IrvingXR FOOT 3+ VW [id number] 17:22:17XR FOOT 3+ VW RIGHT 04/03/2024 10:15 AM History: r/o fx/osteo midfoot Comparison: None Findings: 3 views of the right foot are received for interpretation. There is no fracture or dislocation. Soft tissues are unremarkable. Thereare no radiopaque foreign bodies. Joint spaces are preserved.[facility] IrvingXR CHEST 1 [id number] 17:18:12 XR CHEST 1 VW HISTORY: ?r/o CHF/infiltrate COMPARISON: March 22, 2024 FINDINGS: The patient is slightly rotated on the film. ?There is noinfiltrate or pleural effusion. ?The cardiomediastinal silhouette is withinnormal limits. ?There is no pneumothorax.[facility] IrvingTROPONIN [id number] 16:54:12* Test Item Value Reference Range Interpretation Comme nts TROPONIN I (test code = 8566098396) 0.006 ng/mL <=0.034 RJ (test code = [...] of biotin. Lab Interpretation (test code = 68918-0) Normal [facility] IrvingN-TERMINAL YVP-SPK2918-55-12 16:54:12* Test Item Value Reference Range Interpretation Comme nts NT-proBNP (test code = 55737-8) 302 pg/mL <=125 RJ (test code = RJ) Result Indeterminate-Consid er causes of NT-proBNP elevation other than Heart failure such as acute coronary syndrome, pulmonary embolism, pulmonary hypertension, sepsis, stroke, and renal dysfunction. Lab Interpretation (test code = 06366-3) Abnormal [facility] IrvingETHANOL2024-05-12 16:53:42 ALCOHOL<10mg/dL04/03/2024 11:53 AM CDTUTMB LABORATORY SERVICESToxic Greater than or equal to 80 mg/dL. NOTE: Whole blood values are approximately 10% to 15% lower than serum and plasma.[facility] IrvingETHANOL2024-05-12 16:53:42ALCOHOL<10mg/dL04/03/2024 11:53 AM CDTUTMB LABORATORY SERVICESToxic Greater than or equal to 80 mg/dL. NOTE: Whole blood values are approximately 10% to 15% lower than serum and plasma.[facility] Creatine Ulunxf8426-91-87 16:43:13* Test Item Value Reference Range Interpretation Comme nts CK (test code = 8105200508) 35 U/L 33-194 Lab Interpretation (test cod e = 98837-8) Normal [facility] IrvingPhosphorus2024-05-12 16:43:13* Test Item Value Reference Range Interpretation Comme nts PHOSPHORUS (test code = 0839440429) 3.6 mg/dL 2.5-5.0 Lab Interpretation (test cod e = 34029-4) Normal [facility] IrvingPhosphorus2024-05-12 16:43:13* Test Item Value Reference Range Interpretation Comme nts PHOSPHORUS (test code = 0508661867) 3.6 mg/dL 2.5-5.0 Lab Interpretation (test cod e = 89450-8) Normal [facility] IrvingCreatine Auiwqi6306-58-60 16:43:13* Test Item Value Reference Range Interpretation Comme nts CK (test code = 7554346645) 35 U/L 33-194 Lab Interpretation (test cod e = 75756-6) Normal [facility] IrvingCOMP. METABOLIC PANEL (87071)2024-04-03 16:43:12* Test Item Value Reference Range Interpretation Comme nts NA (test code = 8078686826) 132 mmol/L 135-145 L K (test code = 1823185991) 4.4 mmol/L 3.5-5.0 Slight hemolysis CL (test code = 5657529028) 97 mmol/L 98-108 L CO2 TOTAL (test code = 8155922283) 29 mmol/L 23-31 AGAP (test code = 1037643401) 6 2-16 BUN (test code = 8710062406) 17 mg/dL 7-23 Slight hemolysis GLUCOSE (test code = 3825856086) 353 mg/dL 70-110 H CREATININE (test code = 2160-0) 0.89 mg/dL 0.60-1.25 TOTAL BILI (test code = 6715108393) 0.9 mg/dL 0.1-1.1 CALCIUM (test code = 0653507902) 9.0 mg/dL 8.6-10.6 T PROTEIN (test code = 4403800803) 6.6 g/dL 6.3-8.2 ALBUMIN (test code = 8337520478) 3.7 g/dL 3.5-5.0 ALK PHOS (test code = 1304321063) 118 U/L 34-122 Slight hemolysis ALTv (test code = 1742-6) 14 U/L 5-50 AST(SGOT) (test code = 8655962004) 19 U/L 13-40 Slight hemolysis eGFR (test code = 65158-3) 92.2 mL/min/1.73m2 CKD-EPI eGFR (2020). Assuming creatinine has been stable day-to-day for at least three months, the eGFR indicates Category G1 (>= 90 mL/min/1.73 m2) Lab Interpretation (test code = 61425-8) Abnormal [facility] IrvingMagnesium2024-05-12 16:43:12* Test Item Value Reference Range Interpretation Comme nts MAGNESIUM (test code = 7347269155) 1.6 mg/dL 1.7-2.4 L Lab Interpretation (test cod e = 24516-4) Abnormal [facility] IrvingCB WITH [id number] 16:35:09* Test Item Value Reference Range Interpretation [...] 34.0 g/dL 31.2-35.0 RDW-SD (test code = 45137-9) 39.7 fL 38.5-51.6 RDW-CV (test code = 788-0) 12.3 % 12.1-15.4 PLT (test code = 777-3) 258 150-328 MPV (test code = 57304-0) 10.0 fL 9.8-13.0 NRBC/100 WBC (test code = 5560095482) 0.0 0.0-10.0 NRBC x10^3 (test code = 2370972635) See_Comment [Automated messa ge] The system which generated this result transmitted reference range: 10*3/?L. The reference range was not used to interpret this result as normal/abnormal. GRAN MAT (NEUT) % (test code = 770-8) 81.2 % IMM GRAN % (test code = 8167068980) 0.70 % LYMPH % (test code = 736-9) 11.3 % MONO % (test code = 5905-5) 6.5 % EOS % (test code = 713-8) 0.1 % BASO % (test code = 706-2) 0.2 % GRAN MAT x10^3(ANC) (test code = 3939380467) 9.37 10*3/uL 1.99-6.95 H IMM GRAN x10^3 (test code = 7500316660) 0.08 10*3/uL 0.00-0.06 H LYMPH x10^3 (test code = 731-0) 1.30 10*3/uL 1.09-3.23 MONO x10^3 (test code = 742-7) 0.75 10*3/uL 0.36-1.02 EOS x10^3 (test code = 711-2) 0.06-0.53 L BASO x10^3 (test code = 704-7) 0.01-0.09 Lab Interpretation (test code = 99671-4) [facility] [id number] 16:30:22* Test Item Value Reference Range Interpretation Comme nts LACTIC ACID (test code = 1853311802) 1.63 mmol/L 0.50-2.20 QUES Lab Interpretation (test cod e = 88683-8) Normal [facility] GLUCOSE(AGE >30DAYS)2024-04-03 15:46:00* Test Item Value Reference Range Interpretation Comme nts POCT Glu (age>30days) (test code = 3342) 305 mg/dL 70-110 A Lab Interpretation (test cod e = 38385-7) Abnormal [facility] GLUCOSE(AGE >30DAYS)2024-04-03 15:46:00* Test Item Value Reference Range Interpretation Comme nts POCT Glu (age>30days) (test code = 3342) 305 mg/dL 70-110 A Lab Interpretation (test cod e = 20708-0) Abnormal [facility] GLUCOSE (AUTOMATED)2024-04-03 15:44:37* Test Item Value Reference Range Interpretation Comme nts POCT GLU (test code = 7271099975) 305 mg/dL 70-110 H Lab Interpretation (test cod e = 47927-3) Abnormal [facility] GLUCOSE (AUTOMATED)2024-04-01 00:05:36* Test Item Value Reference Range Interpretation Comme nts POCT GLU (test code = 1525475801) 215 mg/dL 70-110 H Lab Interpretation (test cod e = 37443-4) Abnormal [facility] GLUCOSE (AUTOMATED)2024-03-31 23:20:38* Test Item Value Reference Range Interpretation Comme nts POCT GLU (test code = 6627521459) 468 mg/dL 70-110 HH Lab Interpretation (test cod e = 97444-5) [facility] [facility] [id number] 19:45:11EXAM: CT HEAD WO CONTRAST, CT CERVICAL [...] cervical soft tissues and visualized lung apices areunremarkable.[facility] SP[facility] WO [id number] 19:45:11EXAM: CT HEAD WO CONTRAST, CT CERVICAL [...] cervical soft tissues and visualized lung apices areunremarkable.[facility] LUMBAR SPINE 2 [id number] 00:16:22EXAM: XR LUMBAR SPINE 2 HISTORY: 69 [...] in normal alignment. Theintervertebral disc spaces are preserved.[facility] KNEE 3 [id number] 22:53:33EXAM: XR KNEE 3 VW RIGHT HISTORY: [...] the proximal tibia metadiaphysis may be posttraumatic. [facility] KNEE 3 [id number] 22:53:33EXAM: XR KNEE 3 VW RIGHT HISTORY: [...] the proximal tibia metadiaphysis may be posttraumatic. [facility]cosylated Hemoglobin (A1C)2024-03-22 22:08:29* Test Item Value Reference Range Interpretation Comme nts HGB A1C (test code = 4548-4) 12.1 % 4.0-5.7 H RJ (test code = RJ) Reference RangesNormal: <5.7%Prediabetes: 5.7 - 6.4%Diabetes: > 6.5% Lab Interpretation (test code = 46837-3) Abnormal [facility]-TERMINAL [id number] 17:06:26* Test Item Value Reference Range Interpretation Comme nts NT-proBNP (test code = 50884-0) 108 pg/mL <=125 Lab Interpretation (test cod e = 08843-2) Normal [facility] IrvingTROPONIN [id number] 17:06:26* Test Item Value Reference Range Interpretation Comme nts TROPONIN I (test code = 6253084522) 0.007 ng/mL <=0.034 RJ (test code = [...] of biotin. Lab Interpretation (test code = 19967-3) Normal [facility] Irving[facility]ATIC FUNCTION PANEL (10874) (ALB,T.PRO,BILI T,BU/BC,ALT,AST,ALK PHOS)2024-03-22 16:57:07* Test Item Value Reference Range Interpretation Comme nts TOTAL BILI (test code = 9587713705) 0.6 mg/dL 0.1-1.1 BILI UNCON (test code = 6829765515) 0.1 mg/dL 0.1-1.1 BILI CONJ (test code = 6863753899) 0.0 mg/dL 0.0-0.3 T PROTEIN (test code = 3324643211) 6.7 g/dL 6.3-8.2 ALBUMIN (test code = 1221169474) 3.7 g/dL 3.5-5.0 ALK PHOS (test code = 1425518943) 102 U/L 34-122 ALTv (test code = 1742-6) 18 U/L 5-50 AST(SGOT) (test code = 1943067676) 24 U/L 13-40 Lab Interpretation (test cod e = 70470-2) Normal [facility] METABOLIC PANEL (NA, K, CL, CO2, GLUCOSE, BUN, CREATININE, CA)2024-03-22 16:57:07* Test Item Value Reference Range Interpretation Comme nts NA (test code = 6214864652) 137 mmol/L 135-145 K (test code = 4455326764) 3.8 mmol/L 3.5-5.0 CL (test code = 8868002184) 106 mmol/L 98-108 CO2 TOTAL (test code = 9718740340) 24 mmol/L 23-31 AGAP (test code = 7535780448) 7 2-16 BUN (test code = 3193705495) 12 mg/dL 7-23 GLUCOSE (test code = 3202696318) 132 mg/dL 70-110 H CREATININE (test code = 2160-0) 0.97 mg/dL 0.60-1.25 CALCIUM (test code = 7824782691) 8.8 mg/dL 8.6-10.6 eGFR (test code = 38286-0) 84.0 mL/min/1.73m2 CKD-EPI eGFR (2020). Assuming creatinine has been stable day-to-day for at least three months, the eGFR indicates Category G2 (60 - 89 mL/min/1.73 m2) Lab Interpretation (test code = 96825-8) Abnormal [facility] IrvingCreatine [id number] 16:57:07* Test Item Value Reference Range Interpretation Comme nts CK (test code = 4053864376) 51 U/L 33-194 Lab Interpretation (test cod e = 42375-5) Normal [facility] WITH [id number] 16:38:44* Test Item Value Reference Range Interpretation [...] 34.2 g/dL 31.2-35.0 RDW-SD (test code = 89439-2) 42.8 fL 38.5-51.6 RDW-CV (test code = 788-0) 13.2 % 12.1-15.4 PLT (test code = 777-3) 259 150-328 MPV (test code = 21498-4) 10.8 fL 9.8-13.0 NRBC/100 WBC (test code = 5026856956) 0.0 0.0-10.0 NRBC x10^3 (test code = 9280117092) See_Comment [Automated messa ge] The system which generated this result transmitted reference range: 10*3/?L. The reference range was not used to interpret this result as normal/abnormal. GRAN MAT (NEUT) % (test code = 770-8) 72.5 % IMM GRAN % (test code = 0477677450) 1.10 % LYMPH % (test code = 736-9) 13.2 % MONO % (test code = 5905-5) 11.4 % EOS % (test code = 713-8) 1.3 % BASO % (test code = 706-2) 0.5 % GRAN MAT x10^3(ANC) (test code = 5004925527) 6.01 10*3/uL 1.99-6.95 IMM GRAN x10^3 (test code = 4901579773) 0.09 10*3/uL 0.00-0.06 H LYMPH x10^3 (test code = 731-0) 1.09 10*3/uL 1.09-3.23 MONO x10^3 (test code = 742-7) 0.94 10*3/uL 0.36-1.02 EOS x10^3 (test code = 711-2) 0.11 10*3/uL 0.06-0.53 BASO x10^3 (test code = 704-7) 0.04 10*3/uL 0.01-0.09 Lab Interpretation (test code = 98011-1) Abnormal [facility]XR CHEST 2 [id number] 16:14:04EXAM: XR CHEST 2 03/22/2024 11:01 AM HISTORY: 69 years-old Male with fluid overload . TECHNIQUE: PA and lateral chest radiographs. COMPARISON: 02/14/2019. FINDINGS: Lines and tubes: None. Cardiomediastinal: The cardiomediastinal silhouette is unremarkable. Lungs and pleura: The lungs are clear. Nofocal consolidation,pneumothorax, or pleural effusion is seen. Included osseous structures show no acute abnormality. Degenerative changeinvolving the spine and AC joints is present.[facility] GLUCOSE (AUTOMATED) 2024-03-12 04:43:11* Test Item Value Reference Range Interpretation Comme nts POCT GLU (test code = 8102576013) 213 mg/dL 70-110 H Lab Interpretation (test cod e = 49662-9) Abnormal [facility] GLUCOSE (AUTOMATED)2024-03-12 03:47:48* Test Item Value Reference Range Interpretation Comme nts POCT GLU (test code = 0085890259) 258 mg/dL 70-110 H Lab Interpretation (test cod e = 31105-8) Abnormal [facility] GLUCOSE (AUTOMATED)2024-03-12 02:29:49* Test Item Value Reference Range Interpretation Comme nts POCT GLU (test code = 8466162838) 579 mg/dL 70-110 HH Lab Interpretation (test cod e = 59057-9) Abnormal [facility]. Metabolic Panel (35502)2024-03-12 02:17:22* Test Item Value Reference Range Interpretation Comme nts NA (test code = 7845807593) 130 mmol/L 135-145 L K (test code = 3670746490) 4.4 mmol/L 3.5-5.0 CL (test code = 2746076334) 98 mmol/L 98-108 CO2 TOTAL (test code = 2019647069) 26 mmol/L 23-31 AGAP (test code = 1048800833) 6 2-16 BUN (test code = 4158155837) 24 mg/dL 7-23 H GLUCOSE (test code = 5675506574) 614 mg/dL 70-110 HH CREATININE (test code = 2160-0) 1.21 mg/dL 0.60-1.25 TOTAL BILI (test code = 6799554809) 0.4 mg/dL 0.1-1.1 CALCIUM (test code = 4017122415) 8.6 mg/dL 8.6-10.6 T PROTEIN (test code = 6345608347) 6.1 g/dL 6.3-8.2 L ALBUMIN (test code = 9221143251) 3.5 g/dL 3.5-5.0 ALK PHOS (test code = 7949001012) 107 U/L 34-122 ALTv (test code = 1742-6) 17 U/L 5-50 AST(SGOT) (test code = 9564371860) 16 U/L 13-40 eGFR (test code = 79785-8) 64.4 mL/min/1.73m2 CKD-EPI eGFR (2020). Assuming creatinine has been stable day-to-day for at least three months, the eGFR indicates Category G2 (60 - 89 mL/min/1.73 m2) Lab Interpretation (test code = 04258-3) [facility]normal [facility] Irving[facility]roponin [id number] 02:15:00* Test Item Value Reference Range Interpretation Comme nts TROPONIN I (test code = 2042921676) 0.006 ng/mL <=0.034 RJ (test code = [...] of biotin. Lab Interpretation (test code = 00830-4) Normal [facility] IrvingCreatine [id number] 02:11:59* Test Item Value Reference Range Interpretation Comme nts CK (test code = 9254136437) 32 U/L 33-194 L Lab Interpretation (test cod e = 67222-4) Abnormal [facility] IrvingCbc with [id number] 01:59:02* Test Item Value Reference Range Interpretation [...] 34.2 g/dL 31.2-35.0 RDW-SD (test code = 34799-1) 41.0 fL 38.5-51.6 RDW-CV (test code = 788-0) 12.9 % 12.1-15.4 PLT (test code = 777-3) 231 150-328 MPV (test code = 14038-0) 10.5 fL 9.8-13.0 NRBC/100 WBC (test code = 0641718645) 0.0 0.0-10.0 NRBC x10^3 (test code = 0519765951) See_Comment [Automated messa ge] The system which generated this result transmitted reference range: 10*3/?L. The reference range was not used to interpret this result as normal/abnormal. GRAN MAT (NEUT) % (test code = 770-8) 68.1 % IMM GRAN % (test code = 8962676171) 0.80 % LYMPH % (test code = 736-9) 20.3 % MONO % (test code = 5905-5) 9.3 % EOS % (test code = 713-8) 1.1 % BASO % (test code = 706-2) 0.4 % GRAN MAT x10^3(ANC) (test code = 0279280325) 5.06 10*3/uL 1.99-6.95 IMM GRAN x10^3 (test code = 1159093539) 0.06 10*3/uL 0.00-0.06 LYMPH x10^3 (test code = 731-0) 1.51 10*3/uL 1.09-3.23 MONO x10^3 (test code = 742-7) 0.69 10*3/uL 0.36-1.02 EOS x10^3 (test code = 711-2) 0.08 10*3/uL 0.06-0.53 BASO x10^3 (test code = 704-7) 0.03 10*3/uL 0.01-0.09 Lab Interpretation (test code = 80649-7) Abnormal [facility] Irving[facility]. Metabolic Panel (59742)2024-02-10 18:23:57* Test Item Value Reference Range Interpretation Comme nts NA (test code = 8245660037) 135 mmol/L 135-145 K (test code = 6857774508) 4.1 mmol/L 3.5-5.0 CL (test code = 7961249419) 100 mmol/L 98-108 CO2 TOTAL (test code = 1394504060) 27 mmol/L 23-31 AGAP (test code = 6973143242) 8 2-16 BUN (test code = 5571562458) 26 mg/dL 7-23 H GLUCOSE (test code = 0378618789) 209 mg/dL 70-110 H CREATININE (test code = 2160-0) 1.09 mg/dL 0.60-1.25 TOTAL BILI (test code = 6289776276) 1.0 mg/dL 0.1-1.1 CALCIUM (test code = 9616991850) 8.9 mg/dL 8.6-10.6 T PROTEIN (test code = 5446440739) 7.0 g/dL 6.3-8.2 ALBUMIN (test code = 5869397638) 3.5 g/dL 3.5-5.0 ALK PHOS (test code = 6943057603) 122 U/L 34-122 ALTv (test code = 1742-6) 30 U/L 5-50 AST(SGOT) (test code = 7979721795) 34 U/L 13-40 eGFR (test code = 13121-9) 73.0 mL/min/1.73m2 CKD-EPI eGFR (2020). Assuming creatinine has been stable day-to-day for at least three months, the eGFR indicates Category G2 (60 - 89 mL/min/1.73 m2) Lab Interpretation (test code = 07511-3) Abnormal [facility] with [id number] 18:13:28* Test Item Value Reference Range Interpretation [...] 33.9 g/dL 31.2-35.0 RDW-SD (test code = 42677-1) 42.0 fL 38.5-51.6 RDW-CV (test code = 788-0) 12.9 % 12.1-15.4 PLT (test code = 777-3) 287 150-328 MPV (test code = 02833-1) 9.4 fL 9.8-13.0 L NRBC/100 WBC (test code = 7584979210) 0.0 0.0-10.0 NRBC x10^3 (test code = 3485344766) See_Comment [Automated messa ge] The system which generated this result transmitted reference range: 10*3/?L. The reference range was not used to interpret this result as normal/abnormal. GRAN MAT (NEUT) % (test code = 770-8) 77.5 % IMM GRAN % (test code = 8828272157) 1.10 % LYMPH % (test code = 736-9) 11.1 % MONO % (test code = 5905-5) 9.1 % EOS % (test code = 713-8) 0.9 % BASO % (test code = 706-2) 0.3 % GRAN MAT x10^3(ANC) (test code = 6783984155) 8.71 10*3/uL 1.99-6.95 H IMM GRAN x10^3 (test code = 2161681765) 0.12 10*3/uL 0.00-0.06 H LYMPH x10^3 (test code = 731-0) 1.25 10*3/uL 1.09-3.23 MONO x10^3 (test code = 742-7) 1.02 10*3/uL 0.36-1.02 EOS x10^3 (test code = 711-2) 0.10 10*3/uL 0.06-0.53 BASO x10^3 (test code = 704-7) 0.03 10*3/uL 0.01-0.09 Lab Interpretation (test code = 17174-8) [facility]normal [facility] [id number] 20:09:29FULL RESULT: Examination: CT HEAD WO CONTRAST [...] lesions.[facility] LUMBAR SP[facility] 3 [id number] 15:24:42EXAM: XR LUMBAR SPINE 3 VW HISTORY: [...] preserved.[facility] ABDOMEN PELVIS WO [id number] 19:42:33HISTORY: ?flank pain with right side swelling [...] omental infarct. No acute bony abnormality.[facility]. Metabolic Panel (92587)2024-01-30 17:18:01* Test Item Value Reference Range Interpretation Comme nts NA (test code = 1802938776) 139 mmol/L 135-145 K (test code = 2885650223) 3.6 mmol/L 3.5-5.0 CL (test code = 6814439795) 107 mmol/L 98-108 CO2 TOTAL (test code = 9702487217) 27 mmol/L 23-31 AGAP (test code = 5183462266) 5 2-16 BUN (test code = 9140825306) 27 mg/dL 7-23 H GLUCOSE (test code = 1290792211) 118 mg/dL 70-110 H CREATININE (test code = 2160-0) 0.99 mg/dL 0.60-1.25 TOTAL BILI (test code = 2821465186) 0.4 mg/dL 0.1-1.1 CALCIUM (test code = 4212359793) 8.6 mg/dL 8.6-10.6 T PROTEIN (test code = 3311099692) 6.8 g/dL 6.3-8.2 ALBUMIN (test code = 1097143760) 3.6 g/dL 3.5-5.0 ALK PHOS (test code = 8321786773) 105 U/L 34-122 ALTv (test code = 1742-6) 23 U/L 5-50 AST(SGOT) (test code = 1162203992) 27 U/L 13-40 eGFR (test code = 03165-2) 81.9 mL/min/1.73m2 CKD-EPI eGFR (2020). Assuming creatinine has been stable day-to-day for at least three months, the eGFR indicates Category G2 (60 - 89 mL/min/1.73 m2) Lab Interpretation (test code = 61643-3) Abnormal [facility] with [id number] 16:52:14* Test Item Value Reference Range Interpretation [...] 33.3 g/dL 31.2-35.0 RDW-SD (test code = 98217-5) 42.9 fL 38.5-51.6 RDW-CV (test code = 788-0) 13.2 % 12.1-15.4 PLT (test code = 777-3) 290 150-328 MPV (test code = 87505-5) 9.9 fL 9.8-13.0 NRBC/100 WBC (test code = 2399036144) 0.0 0.0-10.0 NRBC x10^3 (test code = 2284098755) See_Comment [Automated messa ge] The system which generated this result transmitted reference range: 10*3/?L. The reference range was not used to interpret this result as normal/abnormal. GRAN MAT (NEUT) % (test code = 770-8) 74.8 % IMM GRAN % (test code = 4659061347) 0.90 % LYMPH % (test code = 736-9) 14.7 % MONO % (test code = 5905-5) 7.8 % EOS % (test code = 713-8) 1.2 % BASO % (test code = 706-2) 0.6 % GRAN MAT x10^3(ANC) (test code = 9703105155) 7.72 10*3/uL 1.99-6.95 H IMM GRAN x10^3 (test code = 1563305869) 0.09 10*3/uL 0.00-0.06 H LYMPH x10^3 (test code = 731-0) 1.52 10*3/uL 1.09-3.23 MONO x10^3 (test code = 742-7) 0.81 10*3/uL 0.36-1.02 EOS x10^3 (test code = 711-2) 0.12 10*3/uL 0.06-0.53 BASO x10^3 (test code = 704-7) 0.06 10*3/uL 0.01-0.09 Lab Interpretation (test code = 72282-7) [facility] 3 [id number] 19:03:44 HISTORY: ?Low back pain. FINDINGS: AP, [...] degenerative disc disease at L2-L3, L3-L4, L4-L5. [facility], Radiant Results Inft User - 02/16/2020 [...] L4-L5.[facility] IrvingPOCT [id number] 13:50:00* Test Item Value Reference Range Interpretation Comme nts POCT Glu (age>30days) (test code = 3342) 181 mg/dL 70-110 A Lab Interpretation (test cod e = 96752-4) Abnormal [facility] Consult Notes Date/Time Note Provider Source 2025-04-11 17:54:49 Associated Order(s): IP CONSULT TO NUTRITION SERVICES Images from the original note were not included. NUTRITION ASSESSMENT - ADULT Nutrition Diagnosis: Nutrition Diagnosis: Increased nutrient needs related to wounds and diagnosis as evidenced by loss of skin integrity. Interventions/Recommendatio ns: RD to initiate Premier Protein once daily NUTRITION RISK: Low, in 8-10 days Nutrition Education Not appropriate at this time Nutrition Order: Dietary Orders (From admission, onward) Start Ordered 04/10/251658 Adult Diet Regular Diet effective now Question: Diet type Answer: Regular 04/10/25 1659 % p.o. intake documented: No data found. Nutrition Visit Information: 04/11. Initial assessment, received consult for malnutrition. Pt reports good appetite and intake, does not know if he's lost weight recently. He denies N/V/D/C or difficulty chewing/swallowing. He was upset that he says his lunch tray was set delivered while he was asleep and no one woke him up; then we he woke up, he needed help setting up his tray and he spilled his tea all over his bed. Assisted pt w/ ordering his dinner d/t vision impairment, and then set up his tray once it was delivered. Pt began eating eagerly. Pt is already receiving vitamin C and Zinc d/t COIVD. Anthropometrics: Admission Height: 180.3 cm (5' 11") Height Method: Stated Weight: 90.7 kg (200 lb) Weight Method: Stated BMI (Calculated): 27.91 IBW/kg (Calculated) Male: 78.2kg Wt Readings from Last 10 Encounters: 04/10/25 90.7 kg (200 lb) 04/04/25 90.7 kg (200 lb) Estimated Nutrition Needs: Weight Used for Equation Calculations: 78.2 kg (172 lb 6.4 oz) Calculated Energy Needs Using Equations Height: 1.803 m (5' 11") Weight Used for Equation Calculations: 78.2 kg (172 lb 6.4 oz) Energy Equation Used: Rule of thumb (kcal/kg) Energy Lower Range: 30 (kcal/kg) Energy Upper Range: 35 (kcal/day) Energy Needs Lower Range: 2346 kcal/day (kcal/day) Energy Needs Upper Range: 2737 kcal/day Temp: 37.6 ?C (99.7 ?F) Estimated Protein Needs (g/kg) Protein Lower Range: 1.2 (g/kg) Protein Upper Range: 1.5 (g/day) Protein Lower Range: 94 g/day (g/day) Protein Upper Range: 117 g/day Fluid Needs (mL/kg) Fluid Needs: 30 (mL/day) Fluid Needs (Calculated): 2346 mL/day Nutrition Physical Findings per manager utilization: Orientation Level: Oriented X4 Gastrointestinal (WDL): X Abdomen Inspection: Soft Abdominal Tenderness: Soft Bowel Sounds: All quadrants Bowel Sounds (All Quadrants): Active LUE: Full movement RUE: Full movement LLE: Weakness RLE: Weakness Edema: Right lower extremity; Left lower extremity LLE Edema: +1 RLE Edema: +1 Bowel Movement: No data found. Pressure Injuries/Wounds: no documentation Wound 04/10/25 Other (Comments) Right Shoulder (Active) Wound 04/10/25 Other (Comments) Anterior;Right Foot (Active) Wound 04/10/25 Other (Comments) Anterior;Left Foot (Active) Wound 04/10/25 Other (Comments) Anterior;Right Ankle (Active) Wound 04/10/25 Other (Comments) Anterior;Left Ankle (Active) Wound 04/10/25 Other (Comments) Anterior;Right Knee (Active) Wound 04/10/25 Other (Comments) Right Shoulder (Active) Date First Assessed/Time First Assessed: 04/10/252099 Primary Wound Type: (c) Other (Comments) Wound Location Orientation: Right Location: Shoulder Assessments 04/11/2025 12:14 AM 04/11/2025 12:41 PM Wound Image Dressing Status Other (Comment) (n/a) -- Site Assessment Painful;Red;Sloughing -- Klarissa-Wound Assessment Red;Moist -- Active Orders Date Order Order Comments Priority Status Authorizing Provider 04/11/25 1700 Change dressing To wounds on right chest, all toes, and left ankle: - Clean with Vashe, pat dry with 4x4 gauze. - Apply Durafiber AG, cut to fit to wound bed. For toes on both feet, cut Durafiber AG into a long strip and apply to between toes. Cover with Dry Gauze or ABD Pads. Secure right chest with Medipore tape, secure bilateral feet dressings with Kerlix roll gauze and tape. - Change dressing daily. Change sooner with dressings saturation or soilage. Routine Active Katharina Gallo MD Wound 04/10/25 Other (Comments) Anterior;Right Foot (Active) Date First Assessed/Time First Assessed: 04/10/252099 Present on Original Admission: Yes Primary Wound Type: (c) Other (Comments) Wound Location Orientation: Anterior;Right Location: Foot Assessments 04/11/2025 12:14 AM 04/11/2025 12:41 PM Wound Image Dressing Status Other (Comment) (n/a) -- Site Assessment Drainage;Painful;Red -- Klarissa-Wound Assessment Fragile;Painful -- Active Orders Date Order Order Comments Priority Status Authorizing Provider 04/11/25 1700 Change dressing To wounds on right chest, all toes, and left ankle: - Clean with Vashe, pat dry with 4x4 gauze. - Apply Durafiber AG, cut to fit to wound bed. For toes on both feet, cut Durafiber AG into a long strip and apply to between toes. Cover with Dry Gauze or ABD Pads. Secure right chest with Medipore tape, secure bilateral feet dressings with Kerlix roll gauze and tape. - Change dressing daily. Change sooner with dressings saturation or soilage. Routine Active Katharina Gallo MD Wound 04/10/25 Other (Comments) Anterior;Left Foot (Active) Date First Assessed/Time First Assessed: 04/10/25 2100 Present on Original Admission: Yes Primary Wound Type: (c) Other (Comments) Wound Location Orientation: Anterior;Left Location: Foot Assessments 04/11/2025 12:15 AM 04/11/2025 12:44 PM Wound Image Dressing Status Other (Comment) (n/a) -- Site Assessment Dry -- Klarissa-Wound Assessment Red;Painful -- Active Orders Date Order Order Comments Priority Status Authorizing Provider 04/11/25 170 Change dressing To wounds on right chest, all toes, and left ankle: - Clean with Vashe, pat dry with 4x4 gauze. - Apply Durafiber AG, cut to fit to wound bed. For toes on both feet, cut Durafiber AG into a long strip and apply to between toes. Cover with Dry Gauze or ABD Pads. Secure right chest with Medipore tape, secure bilateral feet dressings with Kerlix roll gauze and tape. - Change dressing daily. Change sooner with dressings saturation or soilage. Routine Active Katharina Gallo MD Wound 04/10/25 Other (Comments) Anterior;Right Ankle (Active) Date First Assessed/Time First Assessed: 04/10/25 2100 Present on Original Admission: Yes Primary Wound Type: (c) Other (Comments) Wound Location Orientation: Anterior;Right Location: Ankle Assessments 04/11/2025 12:15 AM 04/11/2025 8:00 AM Dressing Status Other (Comment) (n/a) -- Site Assessment Painful;[place] Klarissa-Wound Assessment Red Red No associated orders. Wound 04/10/25 Other (Comments) Anterior;Left Ankle (Active) Date First Assessed/Time First Assessed: 04/10/25 2100 Present on Original Admission: Yes Primary Wound Type: (c) Other (Comments) Wound Location Orientation: Anterior;Left Location: Ankle Assessments 04/11/2025 12:16 AM 04/11/2025 12:43 PM Wound Image Dressing Status Other (Comment) (n/a) -- Site Assessment Red -- Klarisas-Wound Assessment Red -- Active Orders Date Order Order Comments Priority Status Authorizing Provider 04/11/25 1700 Change dressing To wounds on right chest, all toes, and left ankle: - Clean with Vashe, pat dry with 4x4 gauze. - Apply Durafiber AG, cut to fit to wound bed. For toes on both feet, cut Durafiber AG into a long strip and apply to between toes. Cover with Dry Gauze or ABD Pads. Secure right chest with Medipore tape, secure bilateral feet dressings with Kerlix roll gauze and tape. - Change dressing daily. Change sooner with dressings saturation or soilage. Routine Active Katharina Gallo MD Wound 04/10/25 Other (Comments) Anterior;Right Knee (Active) Date First Assessed/Time First Assessed: 04/10/25 2100 Present on Original Admission: Yes Primary Wound Type: (c) Other (Comments) Wound Location Orientation: Anterior;Right Location: Knee Assessments 04/11/2025 12:17 AM 04/11/2025 12:42 PM Wound Image Dressing Status Other (Comment) (n/a) -- Site Assessment Healing ridge -- Klarissa-Wound Assessment Scarred -- No associated orders. Male External Urinary Catheter (Active) Nutrition Focused Physical Exam - Muscles and Fat: Assessment of Muscle Status Muscle Status: No deficits noted Assessment of Fat Status Fat Status: No deficits noted Basic Information: Admitting diagnosis: Non-traumatic rhabdomyolysis [M62.82] Syncope, unspecified syncope type [R55] Open wound of both lower extremities with complication, initial encounter [S81.801A, S81.802A] Clinical course: Patient Active Problem List Diagnosis Open wound of both lower extremities with complication, initial encounter Rhabdomyolysis PAUL (acute kidney injury) (HCC) Type 2 diabetes mellitus COVID-19 virus infection Health Status: Allergies: NKFA Medications: ascorbic acid, 250 mg, Oral, Daily cephalexin, 500 mg, Oral, q6h enoxaparin, 40 mg, Subcutaneous, q24h sodium chloride, 10 mL, Intravenous, q12h JAMARCUS zinc sulfate, 220 mg, Oral, Daily sodium chloride, 100 mL/hr, Last Rate: 100 mL/hr (04/11/251737) sodium chloride, 100 mL/hr, Last Rate: 100 mL/hr (04/11/251737) PMH: reviewed Review / Management: Labs: reviewed Lab Results Component Value Date Hgb A1C 8.89 (H) 04/10/2025 I/O 24 HRS: reviewed Monitoring and Evaluation: MONITORING AND EVALUATION: Weight changes, Digestive/abdominal assessment, Nutrition intake, Nutrition-related labs GOAL: >90% of estimated needs met: T [facility] 2024-08-24 13:51:19 Associated Order(s): 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 Kan Hairston RN, BSN 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 Stroke 2017 Type 2 diabetes mellitus with vascular disease 10/12/2019 Upper respiratory tract infection, unspecified type 10/12/2019 PSH: Past Surgical History: Procedure Laterality Date COLONOSCOPY N/A 12/30/2019 Surgeon: Glo Finn MD; Location: [facility] OR Location CORNEAL TRANSPLANT,LAMELLAR Bilateral KNEE ARTHROSCOPY 1999 OTHER PENETRATING KERATOPLASTY PHACOEMULSIFICATION OF CATARACT WITH INTRAOCULAR LENS IMPLANT Right 03/17/2019 Surgeon: Virgil Martinez MD; Location: [facility] Prior Living Situation: is homeless DME: Rolling Walker Prior level of Mobility: ambulates with rolling Walker. Suspected ischemic or hemorraghic stroke:No Subjective: Pt with complaints of 10/10 pain on B/L LE Patient/Family Goals: To get better Patient/Family verbalizes understanding of condition: Yes PAIN: -Pain rating before treatment: 10, After treatment: 10 COMMUNICATION Primary Language: Senegalese Able to Verbalize needs: Yes Vision:good; no [...] Treatment Time in Minutes: 30 min Kevin Arevalo, PT [place] Lic No. 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 Stroke 2017 Type 2 diabetes mellitus with vascular disease 10/12/2019 Upper respiratory tract infection, unspecified type 10/12/2019 Past Surgical History: Procedure Laterality Date COLONOSCOPY N/A 12/30/2019 Surgeon: Glo Finn MD; Location: [facility] OR [facility] CORNEAL TRANSPLANT,LAMELLAR Bilateral KNEE ARTHROSCOPY 1998 OTHER PENETRATING KERATOPLASTY PHACOEMULSIFICATION OF CATARACT WITH INTRAOCULAR LENS IMPLANT Right 03/17/2019 Surgeon: Virgil Martinez MD; Location: [facility] OR [facility] Current Facility-Administered Medications: amoxicillin-clavulanate (AUGMENTIN) 875-125 mg per tablet 1 tablet, 1 tablet, Oral, Q12H, Skip Lino MD, 1 tablet at 06/29/24 0756 NaCl 0.9% (NS) injection 10 mL, 10 mL, Slow IV Push, PRN, Jovanna Sandra AGACNP Saline Bubble Study, 6 mL, [...] Friends and Family: Not on file Attends Rastafari Services: Not on file Active Member of [...] agree with continuing vancomycin as patient has bishop paiute valve will continue this antibiotic for 6 weeks recommend to repeat echocardiogram after finishing the treatment. 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 Awaiting determination. HAIDER Munoz Tearoom Hostess - Care Management [facility] [phone] [email or web address] 2024-06-27 11:15:00 Associated Order(s): CONSULT VASCULAR ACCESS [facility] PICC LINE CONSULT 69 year old male Indication/Diagnosis: shelter antibiotics See procedure note. 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 Stroke 2017 Type 2 diabetes mellitus with vascular disease 10/12/2019 Upper respiratory tract infection, unspecified type 10/12/2019 PSH: Past Surgical History: Procedure Laterality Date COLONOSCOPY N/A 12/30/2019 Surgeon: Glo Finn MD; Location: [facility] CORNEAL TRANSPLANT,LAMELLAR Bilateral KNEE ARTHROSCOPY 1999 OTHER PENETRATING KERATOPLASTY PHACOEMULSIFICATION OF CATARACT WITH INTRAOCULAR LENS IMPLANT Right 03/17/2019 Surgeon: Virgil Martinez MD; Location: [facility] Prior Living Situation: is homeless DME: Rolling [...] treatment: does not rate COMMUNICATION Primary Language: Senegalese Able to Verbalize needs: Yes Vision:good; no [...] min Kevin Arevalo PT [place] Lic No. [id number] [facility] Department of Physical Therapy Kevin Arevalo PT [facility] 2024-06-23 22:05:37 Associated Order(s): CONSULT CARDIOLOGY 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 Stroke 2017 Type 2 diabetes mellitus with vascular disease 10/12/2019 Upper respiratory tract infection, unspecified type 10/12/2019 Past Surgical History: Procedure Laterality Date COLONOSCOPY N/A 12/30/2019 Surgeon: Glo Finn MD; Location: [facility] CORNEAL TRANSPLANT,LAMELLAR Bilateral KNEE ARTHROSCOPY 1998 OTHER PENETRATING KERATOPLASTY PHACOEMULSIFICATION OF CATARACT WITH INTRAOCULAR LENS IMPLANT Right 03/17/2019 Surgeon: Virgil Martinez MD; Location: [facility] Family History Problem Relation Age of Onset Cancer Mother Liver Cancer Father lung SOCIAL HISTORY Social History Socioeconomic History Marital status: Tobacco Use Smoking status: Never Smokeless tobacco: Never Substance and Sexual Activity Alcohol use: No Drug use: No ALLERGIES No Known Allergies MEDICATIONS Current Discharge Medication List STOP taking these medications cephALEXin 500 mg capsule Comments: Reason for Stopping: qrdwwxwc-kbkekgkyvj-wbnavbk in 3.5mg-400 unit- 5,000 unit/gram topical ointment Comments: [...] 4 mg tablet Comments: Reason for Stopping: LISINOPRIL-HYDROCHLOROTHIAZ JENIFER 10-12.5 mg per tablet Comments: Reason for [...] 1/2" Syrg Comments: Reason for Stopping: Insulin [place], Disposable, (PHUC PEN NEEDLE) 32 gauge x [...] with medication. Previously noted to be on lisinopril/hydrochlorothiaz jenifer 10/12.5 daily. JAQUELIN: Rx as per primary [...] Ordering referrals and/or communicating with other health ambulatory care nurse (when not separately reported), Documenting clinical information in the electronic or other health record, and Independently interpreting results (not separately reported) and/or communicating results to the patient/family/caregiver. Keep up with basic health maintenance including an annual physical examination with your primary physician, appropriate vaccinations (influenza, pneumonia, new shingles vaccination), and other appropriate testing (e.g. EGD, colonoscopy etc). This report was dictated using Isentio and is subject to voice recognition errors. Please excuse any unusual inaccuracies. Thank you for allowing us to participate in the care of Raj Morales. If you have any questions or concerns please feel free to call our office at [phone]. I would be happy to be of further assistance for Raj Morales wellbeing. Voice recognition software has been used to create portions of this document. An attempt to proofread has been made to minimize errors. Please do not hesitate to call with any questions. Alina Edouard MD Ostomy Nurse, Division of Cardiology [facility] T [facility] - Health History and Physical Notes Date/Time Note Provider Source 2025-04-10 17:37:51 Images from the original note were not included. [facility] Patient:Raj Morales PCP:PCP Date of :1955 Admission Date:04/10/2025 Attending:Mady Chauhan MD;Malini Villegas * Chief Complaint Chief Complaint Patient presents with Weakness, Gen Per EMS, pt homeless and has been sitting outside restaurant for days with no eating. Reports weakness. Hx DM, has not been taking insulin because he has not eaten for few days. Pt states "they dont like homeless people sitting around". Pt with swelling and drainage from lower legs. HPI HPI: 70-year-old homeless male with history of CVA, hypertension diabetes presents to the hospital for generalized weakness. Found by EMS after sitting outside restaurant for 4 days "passing out" Progressively body became swollen with lower extremity starting to drain. Patient unable to answer several questions into symptoms does not remember complains of full body discomfort/myalgia denies recent fever chills nausea vomiting. In ER room afebrile heart rate 104 respiratory rate 16 blood pressure 100 over 7096% on room air. Abnormal labs include creatinine 1.46 albumin 3.2 AST 158 procalcitonin 0.28 CK 3569. Hemoglobin 11.6. ED imaging chest x-ray unremarkable REVIEW OF SYSTEMS: The pertinent positives and negatives are noted in the HPI. All other systems are negative. Assessment & Plan: Assessment & Plan Open wound of both lower extremities with complication, initial encounter Pressure wound in the right shoulder along with bilateral foot wounds Wound care consult PT OT consult At this time wounds do not look infected, continue to monitor for signs and symptoms of infection Rhabdomyolysis CK 3560 Aggressive IV fluid resuscitation PAUL (acute kidney injury) (HCC) suspect hypovolemia from rhabdomyolysis IV fluid ordered Suspect CKD may be underlying diabetic nephropathy Type 2 diabetes mellitus Check HbA1c Carb controlled diet Sliding scale insulin only DVT prophylaxis: enoxaparin (Lovenox) syringe 40 mg [[id number]] Current Diet: Adult Diet Regular Disposition Anticipated: 1 to 3 days given homelessness rhabdomyolysis acute kidney injury Physical Exam: LAST RECORDED VITALS: Blood pressure 136/66, pulse 68, temperature 36.7 ?C (98.1 ?F), temperature source Oral, resp. rate 15, height 1.803 m (5' 11"), weight 90.7 kg (200 lb), SpO2 99%. PHYSICAL EXAMINATION: Physical Exam: Constitutional: Appearance: Normal appearance. He is obese. HENT: Head: Normocephalic and atraumatic. Nose: Nose normal. Mouth/Throat: Mouth: Mucous membranes are moist. Pharynx: Oropharynx is clear. Eyes: Extraocular Movements: Extraocular movements intact. Conjunctiva/sclera: Conjunctivae normal. Pupils: Pupils are equal, round, and reactive to light. Cardiovascular: Rate and Rhythm: Normal rate and regular rhythm. Pulmonary: Effort: Pulmonary effort is normal. Breath sounds: Normal breath sounds. Abdominal: General: Abdomen is flat. Bowel sounds are normal. Palpations: Abdomen is soft. Musculoskeletal: Cervical back: Normal range of motion and neck supple. Right foot: Swelling and tenderness present. Left foot: Swelling and tenderness present. Comments: Wound erythematous no drainage no warmth no induration Skin: General: Skin is warm. Neurological: General: No focal deficit present. Mental Status: He is alert and oriented to person, place, and time. Mental status is at baseline. Psychiatric: Mood and Affect: Mood normal. Behavior: Behavior normal. Judgment: Judgment normal. Media Information Document Information Past Medical History : He has no past medical history on file. Past Surgical History : He has no past surgical history on file. Home Medications: (Not in a hospital admission) Allergies: Patient has no known allergies. Social History: He has no history on file for tobacco use, alcohol use, and drug use. Family History: No family history on file. Labs & Imaging: LABORATORY DATA: Results from last 7 days Lab Units 04/10/25 1511 04/04/25 0858 SODIUM mEq/L 137 136 POTASSIUM mEq/L 3.8 4.0 CHLORIDE mEq/L 103 102 CO2 mEq/L 25.8 24.3 BUN mg/dL 23 23 CREATININE mg/dL 1.46* 1.32* CALCIUM mg/dL 8.2* 9.1 ALBUMIN g/dL 3.2* 3.6 PROTEIN TOTAL g/dL 6.2 7.0 BILIRUBIN TOTAL mg/dL 0.40 0.71 ALK PHOS U/L 106 147* ALT U/L 30 7 AST U/L 158* 11* @LABRCNTIP(m,phos:3,tropon int:3 No results found for: "HGBA1C" Results from last 7 days Lab Units 04/10/25 1511 04/10/25 1416 04/04/25 0858 04/04/25 0744 GLUCOSE mg/dL 113* -- 244* -- POC GLUCOSE mg/dL -- 84 -- 197* Results from last 7 days Lab Units 04/10/25 1511 04/04/25 0859 WBC 10*3/uL 6.92 8.19 HEMOGLOBIN g/dL 11.8* 13.0 HEMATOCRIT % 35.3* 38.4 PLATELETS 10*3/uL 190 205 LYMPHOCYTES % 11.6* 19.2 MONOCYTES % 18.9* 8.7 Results from last 7 days Lab Units 04/10/25 1511 LACTATE mmol/L 1.36 PROCALCITONIN ng/mL 0.28* No lab exists for component: "SPECGRAVU", "BLOODU" No intake or output data in the 24 hours ending 04/10/25 7057 Culture Results No results found for the last 90 days. No results found for the last 90 days. Filters applied: Procedure. RADIOLOGY DATA: ECG 12 lead (arrhythmia) SINUS RHYTHM LEFT AXIS DEVIATION ABNORMAL ECG XR chest 1 view Narrative: Exam: Chest x-ray, one view Reason for Exam: chest pain Comparison Exam: None Discussion: Cardiomediastinal silhouette is within normal limits. Both hemidiaphragms well visualized. No pulmonary edema nor pleural effusions. No focal lung consolidations. No acute bony abnormalities. Impression: Impression: 1. No acute cardiopulmonary abnormalities. Electronically signed by: Ced Patton MD 04/10/2025 05:16 PM CDT Malini Stokes MD [facility] Medicine [facility] 2024-08-23 20:52:46 MEDICINE [facility] ADMIT H&P Date of Service: 08/23/2024 CHIEF COMPLAINT: confusion, low blood glucose Subjective History of Present Illness 69 yo obese male with pmh of DM, foot cellulitis, HLD, HTN, CVA, MRSA bacteremia, infective endocarditis, E.coli UTI who presents to the ED secondary to low blood sugar. He was found in the [employer] parking lot by bystander. 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 12 tablet 0 LISINOPRIL-HYDROCHLOROTHIAZID E 10-12.5 mg per tablet Take 1 tablet by mouth once daily 90 tablet 0 furosemide 20 mg tablet Take 1 tablet by mouth daily. 90 tablet 0 lancets (TRUEPLUS LANCETS) 33 gauge Misc Monitor Blood Glucose daily 300 Each 1 simvastatin 40 mg tablet Take 1 tablet by mouth at bedtime. 90 tablet 0 metFORMIN 1,000 mg tablet Take 1 tablet by mouth 2 (two) times daily with meals. 60 tablet 5 Insulin Syringe-Needle U-100 1 mL 27 gauge x 1/2" Syrg Use as directed 200 Syringe 5 Insulin [place], Disposable, (PHUC PEN NEEDLE) 32 gauge x [...] None noted T [facility] EMERGENCY PH[facility] STAFF [facility] 2024-06-23 22:10:00 [facility] Hospitalist Admission H&P Date of Service: 06/23/2024 [...] 12/01/2019 Added automatically from request for surgery [id number] Dyslipidemia Edema of both legs 02/28/2020 Erectile dysfunction, unspecified erectile dysfunction type 02/28/2020 Essential hypertension 02/28/2020 HTN (hypertension) Hyperlipidemia Obesity (BMI 30-39.9) 03/17/2019 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 Stroke 2017 Type 2 diabetes mellitus with vascular disease 10/12/2019 Upper respiratory tract infection, unspecified type 10/12/2019 PAST SURGICAL HISTORY Past Surgical History: Procedure Laterality Date COLONOSCOPY N/A 12/30/2019 Surgeon: Glo Finn MD; Location: [facility] OR [facility] CORNEAL TRANSPLANT,LAMELLAR Bilateral KNEE ARTHROSCOPY 1999 OTHER PENETRATING KERATOPLASTY PHACOEMULSIFICATION OF CATARACT WITH INTRAOCULAR LENS IMPLANT Right 03/17/2019 Surgeon: Virgil Martinez MD; Location: [facility] OR [facility] ALLERGIES No Known Allergies MEDICATIONS Current home medication list reviewed: Current Discharge Medication List STOP taking these medications cephALEXin 500 mg capsule Comments: Reason for Stopping: cvluchxv-ctmilkujsc-vsudolydo 3.5mg-400 unit- 5,000 unit/gram topical ointment Comments: [...] 1/2" Syrg Comments: Reason for Stopping: Insulin [place], Disposable, (PHUC PEN NEEDLE) 32 gauge x [...] Patient may need to go to a intermediate facility for a little while along with [...] given high risk of morbidity and mortality. [place] CHECK GRADER was verified during stay José Copeland MD IM-INTERNAL MEDICINE STAFF [facility] - Health Procedure Notes Date/Time Note Provider Source 2024-06-27 11:15:00 Vascular Access Services Date of Service: 06/27/24 Patient location: [place] [address] Placed by: Adilson Lees RN 69 year old male. Indication/Diagnosis: shelter antibiotics Consent: indications/complications discussed; verbal consent obtained from patient and indications/complications discussed; written consent obtained from patient Education provided to patient, including pros and cons of PICC insertion. Questions encouraged and answered accordingly. According to [facility] Operating Procedures Policy, a Time Out was [...] area. Chest x-ray: ordered and pending REF#: [id number] Lot #: [id number] Exp Date: 03/22/25 Adilson Lees RN [facility] Notes Date/Time Note Provider Source Referral ID Status Reason Start Date Expiration Date Visits Re quested Visits Authorized [id number] 1 1 [id number] 14:12:22* Audit-C Score Answer Date of Assessment Author 0 04/10/2025 10:43 PM CDT Ralf Terry RN * * Calculated C-SSRS Risk Score (Lifetime/Recent) Answer Date of Assessment Author No Risk Indicated 04/10/2025 12:20 PM CDT Jacqui Puga RN * [place] Suicide Severity Rating Scale (Screener/Recent Self-Report) Question Answer Date of Assessment Author 1. Wish to be (Past 1 Month) No 025 12:20 PM CDT Jacqui Puga RN 2. Non-Specific Active Suici nhan Thoughts (Past 1 Month) No 04/10/2025 12:20 PM CDT Nancy Puga RN 6. Suicidal Behavior (Lifetime) No 12:20 PM CDT Jacqui Puga RN [id number] 14:12:22* Jarrell Washington DO - 04/13/2025 1:54 PM CDT Images from the original note were not included. [facility] Medicine Inpatient Discharge Summary Admitting Provider: Malini Stokes MD Discharge Provider: Jarrell Washington DO Primary Care Physician at Discharge: PCP None Admission Date: 04/10/2025 Discharge Date: 04/13/2025 Discharge Diagnoses Patient Active Problem List Diagnosis Open wound of both lower extremities with complication, initial encounter Rhabdomyolysis PAUL (acute kidney injury) (HCC) Type 2 diabetes mellitus COVID-19 virus infection Patient Condition at Discharge Fair Operative Procedures Performed None Physical Exam Vitals: 04/13/25 0816 BP: Pulse: 55 Resp: 18 Temp: SpO2: 98% Constitutional: no acute distress, alert, comfortable HEENT: neck supple Cardiovascular: regular rate and rhythm, no murmurs, rubs, or gallops Respiratory: CTAB, no respiratory distress Abdominal: soft, non-distended, non-tender, no rebound or guarding Extremities: no lower extremity edema, 2+ peripheral pulses bilaterally Neuro: No focal neurological deficits Skin: warm, no rashes, no lesions Presenting Problem Non-traumatic rhabdomyolysis [M62.82] Syncope, unspecified syncope type [R55] Open wound of both lower extremities with complication, initial encounter [S81.801A, S81.802A] Hospital Course 70-year-old homeless male with history of CVA, hypertension, and diabetes who presents to the hospital for generalized weakness. Found by EMS after sitting outside a restaurant for 4 days "passing out." Progressively, his body became swollen and was noted to have lower extremity drainage. Patient unable to answer several questions regarding his symptoms on admission and does not remember complains of full body discomfort/myalgia. Denied recent fevers, chills, nausea, and vomiting. In the ER, he was afebrile, heart rate 104, respiratory rate 16, blood pressure 100 over 70, saturating 96% on room air. Abnormal labs include creatinine 1.46, albumin 3.2, AST 158, procalcitonin 0.28, CK 3569. Hemoglobin 11.6. ED chest x-ray was unremarkable. During admission, he was treated for pressure wounds of the right shoulder along with bilateral foot wounds. Wound care followed with local wound care. Patient was discharged on Keflex. Was continued on fluids for elevated CK. PAUL improved in the setting of IV fluid administration. Noted to be COVID-19 positive, and supportive measures were continued. Was discharged to SNF. Disposition SNF-External [3] Your medication list START taking these medications Instructions Last Dose Given Next Dose Dueascorbic acid 250 MG tablet Commonly known as: Vitamin C Start taking on: April 14, 2025 Take 1 tablet by mouth 1 time each day. cephalexin 500 MG capsuleCommonly known as: Keflex Take 1 capsule by mouth in the morning and 1 capsule at noon and 1 capsule inthe evening and 1 capsule before bedtime. Do all this for 20 doses. metFORMIN XR 500 MG 24 hr tabletCommonly known as: Glucophage-XR Take 1 tablet by mouth in the morning and 1 tablet in the evening. Take with meals. Do not crush, chew, or split. zinc sulfate 220 (50 Zn) MG capsuleCommonly known as: Zincate Start taking on: April 14, 2025 Take 1 capsule by mouth 1 time each day. CONTINUE taking these medications Instructions Last Dose Given Next Dose Duefurosemide 20 MG tablet Commonly known as: Lasix Take 1 tablet by mouth 1 time each day. STOP taking these medications NovoLIN N RELION 100 UNIT/ML injectionGeneric drug: insulin NPH (Isophane) NovoLIN R 100 UNIT/ML injection Generic drug: insulin regular Where to Get Your Medications These medications were sent to [facility] [address] [place] [address]. [address], [place] [address] Hours: 2034-7624 Thursday through Thursday gccmoajf acid 250 MG tablet cephalexin 500 MG capsule metFORMIN XR 500 MG 24 hr tablet zinc sulfate 220 (50 Zn) MG capsule Outpatient Follow-Up No future appointments. Test Results Pending at DischargeNone Information Provided to Patient/FamilyI discussed with the patient/family details of the stay. See After Visit Summary which were reviewed and shared with patient/family. Total time spent on Discharge: 40 mins [facility] 04/13/25 1:58 PM [id number] 14:12:22* Marjorie Maxwell PTA - 04/13/2025 9:15 AM CDT Treatment Session Note Patient Name: Raj Morales Room #: MH6.634/MH6.634 Today's Date: 04/13/2025 Time in: Start Time: 914 Time out: Stop Time: 944 Total time: Time Calculation (min): 30 min Preferred Language: Senegalese Assessment & Plan Assessment: PT Assessment: Pt presents w/ deficits in strength and mobility affecting his ability to safely complete functional tasks. He cont to benefit from PT services to increase, safety and independence w/ functional mobility. Plan: Cont POC Therapy discharge recommendations are made by determining the patient's prior level of function, assessing current function level and establishing rehab potential. The overall discharge plan may be affected by input from Physicians, Care Coordination, medical condition/status, family support and insurance benefits. Subjective Pain:Pain Assessment: Parish-Brooke FACES Parish-Brooke FACES Pain Rating: Hurts little more Pain Location: Arm Pain Orientation: Right TreatmentTherapeutic activity: Therapeutic Activity Therapeutic Activity Time Entry: 30 Therapeutic Activity 1: BEd mobility training- to EOB w/ min A- very slow to initiate task req vc for sequencing. Therapeutic Activity 2: Req extended time to acclimate in sitting. Noted IV at R arm leaking, appeared infiltrated and nurse notified. Sit to partial stand w/ min A x 2 rep, unable to achieve full upright position, limited by fatige, weakness and pain. Therapeutic Activity 3: Assisted w/ gown change, min A and vc threading UE's. Therapeutic Activity 4: Lateral scooting along EOB, vc for sequencing Therapeutic Activity 5: Sit to supine mod A for LE support. Bed Mobility: Bed Mobility 1:Level of Assistance 1: Partial/Mod assistance Bed Mobility To/From: Supine to sit on EOB Assistive Devices And Adaptive Equipments: Bed rail Bed Mobility 2:Level of Assistance 2: Partial/Mod assistance Bed Mobility To/From: Sitting EOB to supine Transfers: Transfers 1: Level of Assistance 1: Partial/Mod assistance Transfer To/From: Hhy-vl-Iqwke/Mmbjr-bu-Wxi Transfers 2:Level of Assistance 2: Partial/Mod assistance Transfer To/From: Cbk-ag-Hasob/Aukmo-ep-Fvj Assistive Devices And Adaptive Equipments: Walker, four-wheeled AM-PAC Basic Mobility:AM-PAC Basic Mobility Inpatient Turning in bed without bedrails: A Lot Lying on back to sitting on edge of flat bed: A Lot Bed to chair: A Lot Standing up from chair: A Lot Walk in room: Total Climbing 3-5 stairs: Total Mobility Inpatient Raw Score: 10 -[facility] Goal: 4 Mobility: Highest Level of Mobility Performed (-HLM)-HLM Goal: 4 Patient Education: Education Documentation Mobility, taught by Marjorie Maxwell PTA at 04/13/2025 11:52 AM. Learner: Patient Readiness: Acceptance Method: Explanation Response: Verbalizes Understanding, Needs Reinforcement Positioning, taught by Marjorie Maxwell PTA at 04/13/2025 11:52 AM.Learner: Patient Readiness: Acceptance Method: Explanation Response: Verbalizes Understanding, Needs Reinforcement Education CommentsNo comments found. Goals:Encounter Goals Encounter Goals (Active) Patient will be able to perform bed mobility with Mod I (Progressing) Start: 04/11/25 Expected End: 05/01/25 Patient be able to perform transfers with LRAD or no device (Progressing) Start: 04/11/25 Expected End: 05/01/25 Patient will be able to tolerate standing for 5 minutes with LRAD with Mod I (Progressing) Start: 04/11/25 Expected End: 05/01/25 Treatment Note: If this is the last documented treatment, then it will signify discharge from acute care prior to discharge from the therapy service and will serve as the discharge summary. Marjorie Maxwell PTASupervising Physical Therapist: Juhi Clements, PT * En Lagunas PT - 04/12/2025 7:48 PM CDT PT Treatment Session Note Patient Name: Raj Morales Today's Date: 04/12/2025 Preferred Language: Senegalese RM: MH6.634 Time in (Start time): 16:20 Time out (Stop time): 17:00 Time Calculation (min): 40 mins Assessment & Plan: PT Assessment: Pt presented with generalized weakness and deconditioning, impaired bed mobility and transfers and poor activity tolerance. He demonstrated good sitting balance on EOB with BUE support. Pt currently unable to assume static standing d/t generalized weakness and deconditioning. He required mod to max A with bed mobility. He c/o pain in RUE and R foot as well as erythema. He has dressing on L foot. Pt is cooperative and pleasant and able to follow commands well. He will continue to benefit from skilled acute therapy intervention to improve functional mobility and activity tolerance. Prognosis: Good Barriers to Discharge: Severity of deficits, Insight into deficits Evaluation/Treatment Tolerance: Patient limited by fatigue, Patient limited by pain Medical Staff Made Aware: Yes (Mari HENSON) Medical Staff Made Aware Details: Nurse informed, Call light in reach, Bed rails up, HOB raised >30 degrees, Bed/chair alarm on, All lines/leads intact Strengths: Premorbid level of function, Attitude of self Plan: Treatment Plan/Goals Established with Patient/Caregiver: Yes Treatment/Interventions: Balance training, Bed mobility training, Equipment training, Functional activities, Patient education, Therapeutic exercises, Transfer training, Wheelchair assessment and management PT Plan: Skilled PT PT Frequency: 4-5 times per week until discharge Equipment Recommended: DME wheelchair, Walker- rolling PT Recommended Transfer Status: Assistive equipment (Comment) PT Discharge Recommendation: Inpatient rehab facility placement Subjective: Mari HENSON cleared pt for PT treat. Pt agreeable to therapy and ID verified. Current Problem: Generalized deconditioning, impaired mobility, impaired transfers, poor activity tolerance. Precautions: Medical Precautions: Droplet Plus, fall Pain: Pt reported pain in the RUE and R foot. Objective: PT Received On: 04/12/25 Family/Caregiver Present: No Activity Tolerance: Endurance: Tolerates 10 - 20 min exercise with multiple rests Sitting Balance: Supports self independently with both upper extremities Early Mobility/Exercise Safety Screen: Proceed with mobilization - No exclusion criteria met Activity Tolerance Comments: Decreased tolerance to activity Cognition: Overall Cognitive Status: Within Functional Limits Behavior/Cognition: Alert, Cooperative, Pleasant mood Orientation Level: Oriented X4 Treatment: Therapeutic exercise: Therapeutic Exercise Time Entry: 15 Therapeutic Exercise Activity 1: Performed AROM of BLE x 2 sets of 10 Position 1: Seated Therapeutic activity: Therapeutic Activity Time Entry: 25 Therapeutic Activity 1: Performed bed mobility supine to sit w/ extended period of time with max A and scooting to EOB with mod A, sit to supine with mod A HOB elevated Therapeutic Activity 2: Performed sitting on EOB x ~15-20 mins with supervision Therapeutic Activity 3: Attempted sit to stand transfer but unable, performed scooting along EOB with SBA. Bed Mobility: Bed Mobility 1: Level of Assistance 1: Substantial/Max assistance Bed Mobility Comments 1: require extended time and max A Bed Mobility To/From: Supine to sit on EOB Assistive Devices And Adaptive Equipments: Head of bed elevated Bed Mobility 2: Level of Assistance 2: Partial/Mod assistance Bed Mobility To/From: Sitting EOB to supine Assistive Devices And Adaptive Equipments: Head of bed elevated Transfers: Transfers 1: Technique 1: Lateral scoot Level of Assistance 1: Supervision/touching assistance Trials/Comments 1: require extended time and given VCs Transfer To/From: Other (specify) (scooting along EOB) Transfers 2: Level of Assistance 2: Substantial/Max assistance Trials/Comments 2: Unable to assume standing d/t generalized weakness and deconditioning Transfer To/From: Oxo-ig-Sosgk/Bdels-jy-Gzd Assistive Devices And Adaptive Equipments: Walker, four-wheeled AM-PAC Basic Mobility: AM-PAC Basic Mobility Inpatient Turning in bed without bedrails: A Lot Lying on back to sitting on edge of flat bed: A Lot Bed to chair: Total Standing up from chair: Total Walk in room: Total Climbing 3-5 stairs: Total Mobility Inpatient Raw Score: 8 JH-HLM Goal: 3 Mobility: Highest Level of Mobility Performed (JH-HLM) JH-HLM Goal: 3 Highest Level of Mobility Performed (JH-HLM): Sat at edge of bed Patient Education: Education Documentation Home Exercise Program, taught by En Lagunas PT at 04/12/2025 7:47 PM. Learner: Patient Readiness: Acceptance Method: Explanation Response: Demonstrated Understanding, Needs Reinforcement Mobility, taught by En Lagunas PT at 04/12/2025 7:47 PM. Learner: Patient Readiness: Acceptance Method: Explanation Response: Demonstrated Understanding, Needs Reinforcement Physical Therapy Plan of Care, taught by En Lagunas PT at 04/12/2025 7:47 PM. Learner: Patient Readiness: Acceptance Method: Explanation Response: Demonstrated Understanding, Needs Reinforcement Goals: Encounter Goals Encounter Goals (Active) Patient will be able to perform bed mobility with Mod I Start: 04/11/25 Expected End: 05/01/25 Patient be able to perform transfers with LRAD or no device Start: 04/11/25 Expected End: 05/01/25 Patient will be able to tolerate standing for 5 minutes with LRAD with Mod I Start: 04/11/25 Expected End: 05/01/25 Treatment Note: If this is the last documented treatment, then it will signify discharge from acute care prior to discharge from the therapy service and will serve as the discharge summary. En Lagunas PT * ANJEL Dorado - 04/12/2025 5:18 PM CDT OT Encounter Note Patient Name: Raj Morales Today's Date: 04/12/2025 Missed Treatment Time and Reason Pt with staff in the room for pt's care. ANJEL Dorado * Katharina Gallo MD - 04/12/2025 2:36 PM CDT Subjective Patient seen today. Complaining of pain as well but otherwise denies any issues. Discussed in MDR's and patient is most likely a candidate for intermediate facility with worsening wounds and may get infected if he continues to remain homeless. rescue worker and sample case porter on the case and will discuss with patient as well. Objective Last Recorded Vitals Visit Vitals BP 141/65 Pulse 60 Temp 36.9 ?C (98.5 ?F) Resp 19 Ht 1.803 m (5' 11") Wt 90.7 kg (200 lb) SpO2 94% BMI 27.89 kg/m? Smoking Status Never BSA 2.13 m? Lab Results/Imaging Recent Results (from the past 24 hours) POC Glucose Collection Time: 04/11/25 5:05 PM Result Value Ref Range POC Glu 186 (H) 70 - 99 mg/dL POC Glu Comment 1 Notified RN/MD POC Performing Location [place] [address] Basic Metabolic Panel Collection Time: 04/12/25 5:51 AM Result Value Ref Range Glucose Lvl 152 (H) 70 - 99 mg/dL BUN 21 9 - 23 mg/dL Creatinine Lvl 1.27 0.7 - 1.30 mg/dL Sodium Lvl 137 136 - 145 mEq/L Potassium Lvl 4.4 3.4 - 4.5 mEq/L Chloride Lvl 104 98 - 107 mEq/L CO2 Lvl 25.3 20.0 - 31.0 mEq/L Anion Gap 12.1 10.0 - 20.0 mEq/L Calcium Lvl 7.1 (L) 8.3 - 10.6 mg/dL eGFR 60 (L) >60 mL/min/1.73m2 CK Total (Creatinine Kinase) Collection Time: 04/12/25 5:51 AM Result Value Ref Range CK Total 1,490 (H) 62 - 302 U/L Complete Blood Count Collection Time: 04/12/25 5:51 AM Result Value Ref Range WBC 7.47 3.92-.10.07 10*3/uL RBC 3.76 (L) 4.27 - 6.02 10*6/uL NRBC % 0.0 0 /100 WBC Hgb 10.9 (L) 12.4 - 17.4 g/dL Hct 32.6 (L) 37.1 - 50.8 % MCV 86.7 79.2 - 96.8 fL MCH 29.0 26.1 - 32.4 pg MCHC 33.4 31.2 - 36.1 g/dL RDW - SD 41.4 (H) 34.0 - 37.0 fL Plt Count 154 (L) 160 - 381 10*3/uL MPV 10.1 9.0 - 12.0 fL Automated Differential Collection Time: 04/12/25 5:51 AM Result Value Ref Range Segs % 73.8 40.6 - 75.7 % Lymphs % 16.3 14.9 - 47.8 % Monos % 9.2 4.2 - 12.6 % Eos % 0.1 (L) 0.2 - 5.0 % Basos % 0.1 (L) 0.2 - 1.3 % Immature Grans % 0.5 0.1 - 1 % Segs # 5.50 1.48 - 6.56 10*3/uL Lymphs # 1.22 0.86 - 3.84 10*3/uL Monos # 0.69 0.29 - 0.96 10*3/uL Eos # 0.01 0.00 - 0.46 10*3/uL Basos # 0.01 0.01 - 0.08 10*3/uL Imm Grans # 0.04 0.01 - 0.07 10*3/uL POC Glucose Collection Time: 04/12/25 8:00 AM Result Value Ref Range POC Glu 142 (H) 70 - 99 mg/dL POC Glu Comment 1 Notified RN/MD POC Performing Location [place] [id number] I have personally reviewed Labs Medicationsascorbic acid, 250 mg, Oral, Daily cephalexin, 500 mg, Oral, q6h enoxaparin, 40 mg, Subcutaneous, q24h Premier Protein Shake, 1 Bottle, Oral, Daily with breakfast sodium chloride, 10 mL, Intravenous, q12h JAMARCUS zinc sulfate, 220 mg, Oral, Daily Physical ExamGen: NAD CV: RRR Lung: Clear ant Abd: S/NT/ND Ext: no edema Neuro: awake/alert/non focal Psych: pleasant Skin: no erythema AssessmentDavid Tigist Morales is a 70 y.o. male presenting history of homelessness presents with open wound to lower extremities and also COVID infection. In terms of COVID infection overall doing well and on room air. No more fevers. For open was on antibiotics and wound care on board. Patient will benefit from getting placed at a intermediate facility for continued wound care. Assessment & Plan Open wound of both lower extremities with complication, initial encounter Pressure wound in the right shoulder along with bilateral foot wounds Wound care consult on board PT OT on board At this time wounds do not look infected, continue to monitor for signs and symptoms of infection. On Keflex. Rhabdomyolysis Continue on fluids CK has improved most likely can start tapering off fluids. Encourage p.o. intake PAUL (acute kidney injury) (HCC) Improving most likely in the setting of hypovolemia fevers improving with last fever around midnight last night and patient is on room air. Type 2 diabetes mellitus Hemoglobin A1c at 8.89 Carb controlled diet Sliding scale insulin only COVID-19 virus infection Patient with COVID infection continue supportive measures. Have added zinc and vitamin C. VTE prophylaxis: enoxaparin (Lovenox) syringe 40 mg [[id number]]Disposition: SNF referral in place. * Katharina Gallo MD - 04/11/2025 2:47 PM CDT Subjective Patient seen today denies any complaints not on nasal cannula and have informed him regarding his fever and that he has COVID. He denies having COVID. He denies any other complaints. Objective Last Recorded Vitals Visit Vitals BP (!) 189/81 Pulse 60 Temp (!) 38.2 ?C (100.8 ?F) Resp 20 Ht 1.803 m (5' 11") Wt 90.7 kg (200 lb) SpO2 (!) 84% BMI 27.89 kg/m? Smoking Status Never BSA 2.13 m? Lab Results/Imaging Recent Results (from the past 24 hours) Troponin I High Sensitivity Careset (Baseline) Collection Time: 04/10/25 3:10 PM Result Value Ref Range HS Troponin I Baseline 27 0 - 54 pg/mL Basic metabolic panel Collection Time: 04/10/25 3:11 PM Result Value Ref Range Glucose Lvl 113 (H) 70 - 99 mg/dL BUN 23 9 - 23 mg/dL Creatinine Lvl 1.46 (H) 0.7 - 1.30 mg/dL Sodium Lvl 137 136 - 145 mEq/L Potassium Lvl 3.8 3.4 - 4.5 mEq/L Chloride Lvl 103 98 - 107 mEq/L CO2 Lvl 25.8 20.0 - 31.0 mEq/L Anion Gap 12.0 10.0 - 20.0 mEq/L Calcium Lvl 8.2 (L) 8.3 - 10.6 mg/dL eGFR 51 (L) >60 mL/min/1.73m2 Creatine kinase Collection Time: 04/10/25 3:11 PM Result Value Ref Range CK Total 3,569 (H) 62 - 302 U/L Lactic acid with 2 Hours Reflex Collection Time: 04/10/25 3:11 PM Result Value Ref Range Lactic Acid Lvl 1.36 0.5 - 2.2 mmol/L Hepatic function panel Collection Time: 04/10/25 3:11 PM Result Value Ref Range Protein 6.2 5.7 - 8.2 g/dL Albumin Lvl 3.2 (L) 3.4 - 5.0 g/dL Bilirubin Total 0.40 0.20 - 1.10 mg/dL Bilirubin Direct 0.2 <=0.3 mg/dL Bilirubin Indirect 0.2 0.0 - 1.0 mg/dL Alkaline Phosphatase 106 46 - 116 U/L AST 158 (H) 12 - 40 U/L ALT 30 7 - 40 U/L Globulin, Calc 3.0 2.0 - 4.0 g/dL Albumin/Globulin Ratio 1.07 0.7 - 1.6 Procalcitonin level Collection Time: 04/10/25 3:11 PM Result Value Ref Range Procalcitonin 0.28 (H) 0.00 - 0.10 ng/mL Complete Blood Count Collection Time: 04/10/25 3:11 PM Result Value Ref Range WBC 6.92 3.92-.10.07 10*3/uL RBC 4.10 (L) 4.27 - 6.02 10*6/uL NRBC % 0.0 0 /100 WBC Hgb 11.8 (L) 12.4 - 17.4 g/dL Hct 35.3 (L) 37.1 - 50.8 % MCV 86.1 79.2 - 96.8 fL MCH 28.8 26.1 - 32.4 pg MCHC 33.4 31.2 - 36.1 g/dL RDW - SD 41.1 (H) 34.0 - 37.0 fL Plt Count 190 160 - 381 10*3/uL MPV 9.8 9.0 - 12.0 fL Automated Differential Collection Time: 04/10/25 3:11 PM Result Value Ref Range Segs % 68.2 40.6 - 75.7 % Lymphs % 11.6 (L) 14.9 - 47.8 % Monos % 18.9 (H) 4.2 - 12.6 % Eos % 0.1 (L) 0.2 - 5.0 % Basos % 0.3 0.2 - 1.3 % Immature Grans % 0.9 0.1 - 1 % Segs # 4.72 1.48 - 6.56 10*3/uL Lymphs # 0.80 (L) 0.86 - 3.84 10*3/uL Monos # 1.31 (H) 0.29 - 0.96 10*3/uL Eos # 0.01 0.00 - 0.46 10*3/uL Basos # 0.02 0.01 - 0.08 10*3/uL Imm Grans # 0.06 0.01 - 0.07 10*3/uL Hemoglobin A1c Collection Time: 04/10/25 3:11 PM Result Value Ref Range Hgb A1C 8.89 (H) <=5.60 % Blood culture, peripheral #1 Collection Time: 04/10/25 3:32 PM Specimen: Blood, Venous Result Value Ref Range Blood Culture No growth holding Blood culture, peripheral #2 Collection Time: 04/10/25 3:32 PM Specimen: Blood, Venous Result Value Ref Range Blood Culture No growth holding Troponin I High Sensitivity Careset (1st Hr) Collection Time: 04/10/25 5:07 PM Result Value Ref Range HS Troponin I 1 Hour 26 0 - 54 pg/mL HS Troponin I 0 to 1 Hour Delta -1 Coronavirus (COVID-19) ERICK ICU/Isolation Collection Time: 04/10/25 6:09 PM Result Value Ref Range Coronavirus (COVID-19) ERICK Detected (A) Not Detected POC Glucose Collection Time: 04/10/25 6:30 PM Result Value Ref Range POC Glu 84 70 - 99 mg/dL POC Performing Location [facility] Basic Metabolic Panel Collection Time: 04/11/25 4:20 AM Result Value Ref Range Glucose Lvl 64 (L) 70 - 99 mg/dL BUN 22 9 - 23 mg/dL Creatinine Lvl 1.19 0.7 - 1.30 mg/dL Sodium Lvl 139 136 - 145 mEq/L Potassium Lvl 4.4 3.4 - 4.5 mEq/L Chloride Lvl 103 98 - 107 mEq/L CO2 Lvl 27.1 20.0 - 31.0 mEq/L Anion Gap 13.3 10.0 - 20.0 mEq/L Calcium Lvl 8.3 8.3 - 10.6 mg/dL eGFR 65 >60 mL/min/1.73m2 CK Total (Creatinine Kinase) Collection Time: 04/11/25 4:20 AM Result Value Ref Range CK Total 2,541 (H) 62 - 302 U/L Complete Blood Count Collection Time: 04/11/25 4:20 AM Result Value Ref Range WBC 7.67 3.92-.10.07 10*3/uL RBC 4.11 (L) 4.27 - 6.02 10*6/uL NRBC % 0.0 0 /100 WBC Hgb 11.8 (L) 12.4 - 17.4 g/dL Hct 35.5 (L) 37.1 - 50.8 % MCV 86.4 79.2 - 96.8 fL MCH 28.7 26.1 - 32.4 pg MCHC 33.2 31.2 - 36.1 g/dL RDW - SD 41.1 (H) 34.0 - 37.0 fL Plt Count 193 160 - 381 10*3/uL MPV 10.0 9.0 - 12.0 fL Automated Differential Collection Time: 04/11/25 4:20 AM Result Value Ref Range Segs % 66.8 40.6 - 75.7 % Lymphs % 18.0 14.9 - 47.8 % Monos % 14.0 (H) 4.2 - 12.6 % Eos % 0.4 0.2 - 5.0 % Basos % 0.3 0.2 - 1.3 % Immature Grans % 0.5 0.1 - 1 % Segs # 5.13 1.48 - 6.56 10*3/uL Lymphs # 1.38 0.86 - 3.84 10*3/uL Monos # 1.07 (H) 0.29 - 0.96 10*3/uL Eos # 0.03 0.00 - 0.46 10*3/uL Basos # 0.02 0.01 - 0.08 10*3/uL Imm Grans # 0.04 0.01 - 0.07 10*3/uL I have personally reviewed Labs Medicationsenoxaparin, 40 mg, Subcutaneous, q24h sodium chloride, 10 mL, Intravenous, q12h JAMARCUS Physical ExamGen: NAD CV: RRR Lung: Clear ant Abd: S/NT/ND Ext: no edema Neuro: awake/alert/non focal Psych: pleasant Skin: no erythema AssessmentDavid Tigist Morales is a 70 y.o. male presenting history of homelessness presents with open wound to lower extremities and also COVID infection.. Assessment & Plan Open wound of both lower extremities with complication, initial encounter Pressure wound in the right shoulder along with bilateral foot wounds Wound care consult on board will follow-up. PT OT consult At this time wounds do not look infected, continue to monitor for signs and symptoms of infection. Will place on Keflex Rhabdomyolysis CK improving around 2500 goal to be below 500 no muscle pain Aggressive IV fluid resuscitation PAUL (acute kidney injury) (HCC) suspect hypovolemia from rhabdomyolysis IV fluid ordered Suspect CKD may be underlying diabetic nephropathy Type 2 diabetes mellitus Hemoglobin A1c at 8.89 Carb controlled diet Sliding scale insulin only COVID-19 virus infection Patient with COVID infection continue supportive measures. Still febrile at this time Have added zinc and vitamin C. VTE prophylaxis: enoxaparin (Lovenox) syringe 40 mg [[id number]]Disposition: Home once medically stable * Juhi Clements, PT - 04/11/2025 11:42 AM CDT Evaluation and Treatment Note Patient Name: Raj Morales Today's Date: 04/11/2025 Pt seen in room: 6.634/6.634 Start Time: 1142 Stop Time: 1212 Time Calculation (min): 30 min Preferred Language: Senegalese Assessment & Plan Assessment: During PT evaluation, pt presented with decreased strength, generalized weakness, decreased balance, impaired functional mobility, and decreased endurance. Pt required Mod A x 2 for bed mobility and transfers. Pt unable to perform gait this session, unable to advance BLEs. At baseline, pt IND with ADLs and ambulates IND with use of a rollator. Pt with acute decline in mobility and will benefit from further skilled acute therapy services to increase functional mobility and decrease burden of care. Prognosis: Fair Barriers to Discharge: Severity of deficits, Home accessibility Medical Staff Made Aware: Yes Medical Staff Made Aware Details: Call light in reach, Nurse informed, Bed/chair alarm on, Bed rails up, All lines/leads intact, Vital signs stable Strengths: Ability to acquire knowledge Plan: Treatment Plan/Goals Established with Patient/Caregiver: Yes Treatment/Interventions: Bed mobility training, Caregiver training, Balance training, Equipment training, Functional activities, Neuromuscular re-education, Patient education, Positioning, Posture/Body mechanics baring, Therapeutic exercises, Transfer training PT Plan: Skilled PT PT Frequency: 5-7 times per week until discharge PT Discharge Recommendations: Inpatient rehab facility placement PT Recommended Transfer Status: (stand pivot with helper in front) Therapy discharge recommendations are made by determining the patient's prior level of function, assessing current function level and establishing rehab potential. The overall discharge plan may be affected by input from Physicians, Care Coordination, medical condition/status, family support and insurance benefits. Subjective RN cleared pt for PT evaluation and treatment. Pt found semi-supine in bed upon arrival in room. Pt agreeable to session. Current Problem: Pt is a 70-year-old homeless male with history of CVA, hypertension diabetes presents to the hospital for generalized weakness and BLE wounds. Past Medical History Pt has a past medical history of Diabetes mellitus (HCC), Hypertension, and Stroke (HCC). Surgical History Pt has no past surgical history on file. Pain: Pain Assessment: DVPRS Pain Rating Scale (DVPRS): Sometimes distracts me Pain Type: Acute pain Lines/Tubes: PIV [place] Vital Signs: Patient Vitals for the past 24 hrs: BP MAP (mmHg) Pulse Resp SpO2 04/11/25 0751 -- -- 60 20 (!) 84 % 04/11/25 0750 (!) 189/81 (!) 117 -- -- -- 04/11/25 0500 -- -- 62 18 96 % 04/11/25 0459 (!) 190/77 (!) 115 -- -- -- 04/10/25 2352 -- -- 64 18 95 % 04/10/25 235 157/71 100 -- -- -- 04/10/25 2103 -- -- 65 18 97 % 04/10/25 210 (!) 167/90 (!) 116 -- -- -- 04/10/251999 160/69 -- 62 18 97 % 04/10/25 1945 155/72 -- 68 20 98 % 04/10/25 1930 159/78 98 64 20 98 % 04/10/25 1902 (!) 166/75 (!) 101 62 20 97 % 04/10/25 1830 156/81 100 -- -- 99 % 04/10/25 1730 (!) 164/86 (!) 108 -- -- 98 % 04/10/25 1700 158/86 (!) 106 54 -- 98 % Home Living: Type of Home: Homeless Lives With: Alone Home Adaptive Equipment: Other (Comment) (Rollator) Prior Level of Function: Level of [place]: Ambulated with assistive device (comment) (Rollator) ADL Assistance: Independent Prior Function Comments: Pt is homeless and reported being IND with mobility and ADLs with use of a rollator Objective General Visit Information: Precautions: Medical Precautions: fall, COVID+ Cognition: Overall Cognitive Status: Within Functional Limits Behavior/Cognition: Cooperative, Alert Orientation Level: Oriented X4 General Assessments: Activity Tolerance Activity Tolerance Endurance: Tolerates 10 - 20 min exercise with multiple rests Sensation Sensation Light Touch: RLE Intact, LLE Intact Perception Perception Inattention/Neglect: Appears intact Initiation: Appears intact Motor Planning: Appears intact Perseveration: Not present Coordination Coordination Movements are Fluid and Coordinated: Yes Balance- Sitting Static Sitting-Balance Support: Left upper extremity supported, Right upper extremity supported, Feet supported Level of Assistance: Supervision/touching assistance Balance- Standing Static Standing-Balance Support: Right upper extremity supported, Left upper extremity supported ([employer]) Static Standing-Level of Assistance: Substantial/Max assistance (x 2) Functional Assessments: Bed Mobility Bed Mobility 1: Level of Assistance 1: Partial/Mod assistance Bed Mobility Comments 1: Mod A for trunk and BLEs, limited by R shoulder and trunk wound Bed Mobility To/From: Supine to sit on EOB Assistive Devices And Adaptive Equipments: Bed rail Bed Mobility 2:Level of Assistance 2: Partial/Mod assistance (x 2 person) Bed Mobility Comments 2: assist given to bring BLEs into bed and to lower trunk Bed Mobility To/From: Sitting EOB to supine Assistive Devices And Adaptive Equipments: Bed rail Transfers Transfers 1:Level of Assistance 1: Partial/Mod assistance Trials/Comments 1: Attempted x 3 to stand with rollator, pt unable to clear hips and acheive upright posture. Pt able to acheive upright posture with BUE BRANCH LENDING MANAGER with therapist in front with Mod A Transfer To/From: [id number] Assistive Devices And Adaptive Equipments: Walker, four-wheeled (and BRANCH LENDING MANAGER) Extremity Assessments:Right Lower Extremity RLE Assessment RLE Assessment: Exceptions to WFL Strength RLE R Hip Flexion: 3-/5 R Knee Extension: 4-/5 R Ankle Dorsiflexion: 1/5 Left Lower Extremity LLE AssessmentLLE Assessment: Exceptions to WFL Strength LLE L Hip Flexion: 3-/5 L Knee Extension: 4-/5 L Ankle Dorsiflexion: 1/5 Activity Tolerance:Endurance: Tolerates 10 - 20 min exercise with multiple rests CognitionOverall Cognitive Status: Within Functional Limits Behavior/Cognition: Cooperative, Alert Orientation Level: Oriented X4 TreatmentTherapeutic activity: Therapeutic Activity Therapeutic Activity Time Entry: 15 Therapeutic Activity 1: supine to sit Therapeutic Activity 2: STS x 3 Therapeutic Activity 3: sit to supine Therapeutic Activity 4: repositioning in bed AM-PAC Basic Mobility:Turning in bed without bedrails: A Little Lying on back to sitting on edge of flat bed: A Lot Bed to chair: A Lot Standing up from chair: A Lot Walk in room: Total Climbing 3-5 stairs: Total Mobility Inpatient Raw Score: 11 -M Goal: 4 Static standing (1 or more minutes) Patient Education:Education Documentation Home Exercise Program, taught by Juhi Clements PT at 04/11/2025 3:14 PM. Learner: Patient Readiness: Acceptance Method: Explanation Response: Verbalizes Understanding Durable Medical Equipment, taught by Juhi Clements PT at 04/11/2025 3:14PM. Learner: Patient Readiness: Acceptance Method: Explanation Response: Verbalizes Understanding Body Mechanics, taught by Juhi Clements PT at 04/11/2025 3:14 PM.Learner: Patient Readiness: Acceptance Method: Explanation Response: Verbalizes Understanding Mobility, taught by Juhi Clements PT at 04/11/2025 3:14 PM.Learner: Patient Readiness: Acceptance Method: Explanation Response: Verbalizes Understanding Positioning, taught by Juhi Clements PT at 04/11/2025 3:14 PM.Learner: Patient Readiness: Acceptance Method: Explanation Response: Verbalizes Understanding Physical Therapy Plan of Care, taught by Juhi Clements PT at 53:14 PM. Learner: Patient Readiness: Acceptance Method: Explanation Response: Verbalizes Understanding Education CommentsNo comments found. Goal:Encounter Goals Encounter Goals (Active) Patient will be able to perform bed mobility with Mod I Start: 04/11/25 Expected End: 05/01/25 Patient be able to perform transfers with LRAD or no device Start: 04/11/25 Expected End: 05/01/25 Patient will be able to tolerate standing for 5 minutes with LRAD with Mod I Start: 04/11/25 Expected End: 05/01/25 Treatment Note: If this is the last documented treatment, then it will signify discharge from acute care prior to discharge from the therapy service and will serve as the discharge summary. Juhi Clements PT * Valentina Sainz, OT - 04/11/2025 11:41 AM CDT Evaluation and Treatment Patient Name: Raj MoralesMRN: [id number] Today's Date: 04/11/2025 Time in: Start Time: 1141 Time out: Stop Time: 1212 Total time: Time Calculation (min): 31 min Pt seen in room: 6.4/6.4 Preferred Language: Senegalese Assessment & PlanPt is a 70-year-old homeless male with history of CVA, hypertension diabetes presents to the hospital for generalized weakness. Pt seen for OT evaluation and treatment. Pt is A&Ox3 with intact basic command following. Pt required min-max assist for bed mobility, transfers, standing balance, UB/LB dressing and feeding tasks. Pt is homeless with reporting PLOF as independent for ADLs and mod I for mobility w/ rollator. Pt currently presents below functional baseline and will benefit from post-acute therapy services upon discharge from hospital. Initiate OT POC. Assessment:OT Assessment Results: Impaired ADL status, Impaired endurance, Impaired functional mobility Prognosis: Good Evaluation/Treatment Tolerance: Patient tolerated treatment well Strengths: Ability to acquire knowledge Medical Staff Made Aware: Yes Medical Staff Made Aware Details: Call light in reach, Bed rails up, Nurse informed Plan:Treatment Plan/Goals Established with Patient/Caregiver: Yes Treatment Interventions: ADL retraining, Endurance training, UE strengthening/ROM, Functional transfer training OT Plan: Skilled OT OT Frequency: 3-5 times per week until discharge OT Discharge Recommendations: Inpatient rehab facility placement OT Planned Treatments: Activities of Daily Living, Energy conservation training, Neuromuscular reeducation, Home program, Patient education, Therapeutic exercises, Therapeutic activities OT Duration: 1-2 weeks Therapy discharge recommendations are made by determining the patient's prior level of function, assessing current function level and establishing rehab potential. The overall discharge plan may be affected by input from Physicians, Care Coordination, medical condition/status, family support and insurance benefits. SubjectiveRN approved pt to be seen for OT services. Current Problem:Pt is a 70-year-old homeless male with history of CVA, hypertension diabetes presents to the hospital for generalized weakness. P Past Medical HistoryPt has a past medical history of Diabetes mellitus (HCC), Hypertension, and Stroke (HCC). Surgical HistoryPt has no past surgical history on file. Pain:Pain Assessment: DVPRS Pain Rating Scale (DVPRS): Sometimes distracts me ObjectiveGeneral Visit Information: Family/Caregiver Present: No Precautions:Medical Precautions: fall Cognition:Overall Cognitive Status: Within Functional Limits Behavior/Cognition: Alert, Cooperative Orientation Level: Oriented X4 Home Living:Type of Home: Homeless Lives With: Alone Home Adaptive Equipment: Walker rolling or standard Prior Function:Level of [place]: Ambulated with assistive device (comment) ADL Assistance: Independent Prior Function Comments: Pt is homeless with reporting PLOF as independent for ADLs and mod I for mobility w/ rollator Social History:Social History Source: Patient Self Care (ADL):Self Care/Home Management (ADLs) Time Entry: 23 Eating Assistance: Setup/clean-up assistance Assistive Devices And Adaptive Equipments: No device UE Dressing Activity Component(s): Gown UE Dressing Assistance: Supervision/touching assistance UE Dressing Deficit: Setup, Thread RUE, Thread LUE, Fasteners LE Dressing Activity Component(s): Socks LE Dressing Assistance: Substantial/Max assistance LE Dressing Deficit: Setup, Don/doff R sock, Don/doff L sock (don/doff BLE socks at bed level w/ pt reporting being unable to complete tasks at this geni w/ assist needed) ADL Comments: Pt w/ increased weakness/fatigue w/ requiring assist for ADL tasks; pt unable to progress to out of bed mobility to ambulate to restroom w/ returning back to bed at end of session w/ call light in reach Mobility/Transfers:Bed Mobility Bed Mobility Bed Mobility: Yes Bed Mobility 1 Level of Assistance 1: Partial/Mod assistance Bed Mobility Comments 1: Pt required min-mod assist for bed mobility; pt w/ R armpit/chest pain due to wound Bed Mobility To/From: Supine to sit on EOB, Sitting EOB to supine, Roll left/right Assistive Devices And Adaptive Equipments: Bed rail TransferTransfers Transfer: Yes Transfer 1 Level of Assistance 1: Partial/Mod assistance Trials/Comments 1: Pt w/ x2-3 standing attempts w/ unable to progress to full upright standing position w/ RW; however pt attempted w/ radhika BRANCH LENDING MANAGER and able to progress to standing; pt had to return to sitting and unable to take further steps at this time due to weakness/fatigue Transfer To/From: Bed, [id number] Assistive Devices And Adaptive Equipments: Walker, four-wheeled, Other (radhika BRANCH LENDING MANAGER) Functional MobilityFunctional Mobility Functional Mobility: Pt required mod-max assist to maintain standing balance w/ radhika BRANCH LENDING MANAGER; difficulty progressing to mobility at this time OT General Assessments:ADL Self Care/Home Management (ADLs) Time Entry: 23 Eating Assistance: Setup/clean-up assistance Assistive Devices And Adaptive Equipments: No device UE Dressing Activity Component(s): Gown UE Dressing Assistance: Supervision/touching assistance UE Dressing Deficit: Setup, Thread RUE, Thread LUE, Fasteners LE Dressing Activity Component(s): Socks LE Dressing Assistance: Substantial/Max assistance LE Dressing Deficit: Setup, Don/doff R sock, Don/doff L sock (don/doff BLE socks at bed level w/ pt reporting being unable to complete tasks at this geni w/ assist needed) ADL Comments: Pt w/ increased weakness/fatigue w/ requiring assist for ADL tasks; pt unable to progress to out of bed mobility to ambulate to restroom w/ returning back to bed at end of session w/ call light in reach Vision - Basic AssessmentCurrent Vision: No visual deficits Vision - Complex AssessmentOcular Range of Motion: Within Functional Limits SensationLight Touch: RUE Intact, LUE Intact ProprioceptionProprioception: RUE Intact, LUE Intact PerceptionInattention/Neglect: Appears intact Initiation: Appears intact Motor Planning: Appears intact Perseveration: Not present CoordinationMovements are Fluid and Coordinated: Yes Hand FunctionGross Grasp: Functional Coordination: Functional Extremity Assessments:Right Upper Extremity RUE Assessment RUE Assessment: Exceptions to WFL (Impaired shld ROM; with MMT grossly (>3+/5); pain limiting assessment) Left Upper Extremity LUE AssessmentLUE Assessment: Exceptions to WFL (Impaired shld ROM; with MMT grossly (>3+/5)) Treatment:Self-Care: Self Care/Home Management (ADLs) Time Entry: 23 Eating Assistance: Setup/clean-up assistance Assistive Devices And Adaptive Equipments: No device UE Dressing Activity Component(s): Gown UE Dressing Assistance: Supervision/touching assistance UE Dressing Deficit: Setup, Thread RUE, Thread LUE, Fasteners LE Dressing Activity Component(s): Socks LE Dressing Assistance: Substantial/Max assistance LE Dressing Deficit: Setup, Don/doff R sock, Don/doff L sock (don/doff BLE socks at bed level w/ pt reporting being unable to complete tasks at this geni w/ assist needed) ADL Comments: Pt w/ increased weakness/fatigue w/ requiring assist for ADL tasks; pt unable to progress to out of bed mobility to ambulate to restroom w/ returning back to bed at end of session w/ call light in reach Bed Mobility:Bed Mobility Bed Mobility: Yes Bed Mobility 1 Level of Assistance 1: Partial/Mod assistance Bed Mobility Comments 1: Pt required min-mod assist for bed mobility; pt w/ R armpit/chest pain due to wound Bed Mobility To/From: Supine to sit on EOB, Sitting EOB to supine, Roll left/right Assistive Devices And Adaptive Equipments: Bed rail Transfers:Transfers Transfer: Yes Transfer 1 Level of Assistance 1: Partial/Mod assistance Trials/Comments 1: Pt w/ x2-3 standing attempts w/ unable to progress to full upright standing position w/ RW; however pt attempted w/ radhika BRANCH LENDING MANAGER and able to progress to standing; pt had to return to sitting and unable to take further steps at this time due to weakness/fatigue Transfer To/From: Bed, [id number]/[id number] Assistive Devices And Adaptive Equipments: Walker, four-wheeled, Other (radhika BRANCH LENDING MANAGER) AM-PAC Daily Activity:Putting on and taking off regular lower body clothing: Total Bathing (including washing, rinsing, drying): Total Toileting, which includes using toilet, bedpan or urinal: Total Putting on and taking off regular upper body clothing: A Lot Taking care of personal grooming such as brushing teeth: A Little Eating Meals: None AM-PAC Daily Activity Raw Score: 12 MobilityHighest Level of Mobility Performed (-HLM): Static standing (1 or more minutes) Outcome Measures:Subjective interview, AMPAC, ADL screen, fxnl mobility, education, orientation, ROM/MMT/coordination Patient Education:Education Documentation Positioning, taught by Valentina Sainz OT at 04/11/2025 1:05 PM. Learner: Patient Readiness: Acceptance Method: Explanation Response: Verbalizes Understanding Mobility Training, taught by Valentina Sainz OT at 04/11/2025 1:05 PM.Learner: Patient Readiness: Acceptance Method: Explanation Response: Verbalizes Understanding ADL Training, taught by Valentina Sainz OT at 04/11/2025 1:05 PM.Learner: Patient Readiness: Acceptance Method: Explanation Response: Verbalizes Understanding Occupational Therapy Plan of Care, taught by Valentina Sainz OT at 51:05 PM. Learner: Patient Readiness: Acceptance Method: Explanation Response: Verbalizes Understanding Education CommentsNo comments found. Goals:Encounter Goals Encounter Goals (Active) Patient will demonstrate independence with upper body donning and doffing pullover shirt (Progressing) Start: 04/11/25 Expected End: 05/06/25 Patient will demonstrate independence with lower body donning and doffing socks (Progressing) Start: 04/11/25 Expected End: 05/06/25 Patient will perform commode transfer with no assistance (Progressing) Start: 04/11/25 Expected End: 05/06/25 Patient will demonstrate oral care by brushing teeth with no assistance (Progressing) Start: 04/11/25 Expected End: 05/06/25 Patient will complete clothing management with toileting no assistance (Progressing) Start: 04/11/25 Expected End: 05/06/25 Patient will demonstrate independence in home program for support of progression (Progressing) Start: 04/11/25 Expected End: 05/06/25 Patient will participate in functional mobility tasks to improve endurance and activity tolerance for anabaptist of independence with IADLs (Progressing) Start: 04/11/25 Expected End: 05/06/25 Treatment Note: If this is the last documented treatment, then it will signify discharge from acute care prior to discharge from the therapy service and will serve as the discharge summary. Valentina Sainz OT [facility]2025-05-22 14:12:22Pending Results Scheduled Orders Name Type Priority Associated Diagnoses Order Schedule POCT Glucose Point of Care Testing - Docked Device Routine Every 15 minutes as needed until discontinued starting 04/10/2025 POCT Glucose Point of Care Testing - Docked Device Routine Every 15 minutes as needed until discontinued starting 04/10/2025 CK Total (Creatinine Kinase) Lab STAT Morning draw (La b) for 3 Occurrences starting 04/13/2025 until 04/15/2025, 1 completed Phosphorus Level Lab Add-On Daily un til discontinued starting 04/14/2025 Magnesium Level Lab Add-On Daily unt il discontinued starting 04/14/2025 Comprehensive Metabolic Panel Lab Add-On Daily until discontinued starting 04/14/2025 Complete Blood Count (no diff) Lab Routine Daily until discontinued starting 04/14/2025 Health Maintenance Due Date Last Done Comments CT Colonography 1954 Colonoscopy 1954 Colorectal Cancer Screening 1954 FIT-DNA 1954 FIT 1954 FOBT 1954 Medicare Annual Wellness (AWV) 1954 Sigmoidoscopy 1954 Diabetes: Foot Exam 1964 Diabetes: Retinopathy Screening 1964 Pneumococcal Vaccine: 50+ Years (1 of 2 - PCV) 1973 Zoster Vaccines (1 of 2) 2004 Respiratory Syncytial Virus (RSV) Adult Series (1 - Risk 60-74 years 1-dose series) 2014 Diabetes: Urine Protein Screening 02/14/2022 02/14/2021 Lipid Panel 06/23/2025 06/23/2024 Diabetes: Hemoglobin A1C 07/11/2025 025, 06/23/2024, 03/22/2024 Influenza Vaccine (Season Ended) 2025 DTaP/Tdap/Td Vaccines (3 - T d or Tdap) 12/28/2034 12/28/2024, 04/03/2024 HIB Vaccines Aged Out No longer eligi ble based on patient's age to complete this topic HPV Vaccines Aged Out No longer eligi ble based on patient's age to complete this topic Hepatitis A Vaccines Aged Out No long er eligible based on patient's age to complete this topic Hepatitis B Vaccines Aged Out No long er eligible based on patient's age to complete this topic IPV Vaccines Aged Out No longer eligi ble based on patient's age to complete this topic Meningococcal Vaccine Aged Out No rahat lety eligible based on patient's age to complete this topic Rotavirus Vaccines Aged Out No longer eligible based on patient's age to complete this topic [id number] 14:12:22 Diagnosis Open wound of both lower ext remities with complication, initial encounter - Primary Open wound of both lower ext remities with complication, initial encounter Non-traumatic rhabdomyolysis Syncope, unspecified syncope type Rhabdomyolysis PAUL (acute kidney injury) (H CC) Type 2 diabetes mellitus COVID-19 virus infection [facility] [id number] 14:12:22 [place] [id number] 12:14:45 Discharge instructions were given to patient by discharge nurse. Patient's iv was removed and belongings were gathered. Report was called to Angie HENSON at [facility]. [facility]2025-05-22 12:02:24 Discharge packet kept with chart. Primary RN to call report. [place] [id number] 08:00:00 The patient is Moderately Stable - Low risk of patient condition declining or worsening The patient's goals for the shift include rest The clinical goals for the shift include complet dignostic test [facility]2025-05-22 03:46:29 The patient is Moderately Stable - Low risk of patient condition declining or worsening The patient's goals for the shift include rest The clinical goals for the shift include complet dignostic test [facility]2025-05-21 15:21:07 The patient is Moderately Stable - Low risk of patient condition declining or worsening The patient's goals for the shift include rest The clinical goals for the shift include complet dignostic test Over the shift, the patient did not make progress toward the following go [facility]2025-05-21 02:36:52 The patient is Moderately Stable - Low risk of patient condition declining or worsening The patient's goals for the shift include rest The clinical goals for the shift include complet dignostic test [place] [id number] 15:10:21* Ro Calixto - 04/11/2025 3:06 PM CDT [facility] unable to reach patient. No phone on file. Case to be closed. [id number] 15:10:21 [facility] [id number] 15:10:21 [place] [id number] 13:24:14 Images from the original note were not included. Consult requested for wound(s) on bilateral legs . Consult placed on 04/10. Patient history: Patient is a 70 y.o. male, admitted on 04/10/2025 with PMH of CVA, hypertension diabetes presents to the hospital for generalized weakness. Homeless. Found by EMS after sitting outside restaurant for 4 days "passing out" Progressively body became swollen with lower extremity starting to drain. Patient assessment: Patient met in bed, awake. Wound present on right chest, left ankle, and toes on bilateral feet. Patient reported wound on right chest was from patient sleeping on his walker and putting pressure over the site. Considering the wound shape was unsure if the wound was caused by pressure. Patient was unable to recall how he got the abrasion on the left ankle. Toes on bilateral feet with dry lymph drainage present. Right toes also with maceration. Right chest and right toes appeared to be infected today. Notified Dr. Gallo. Right knee covered by a small scab that was removed, wound site is now healed. Wound assessed and redressed by hydraulic lift driver today Wound Assessment: Wound Location: Right chest Wound Type: abrasion Wound measurement: 10 cm x 20 cm x 0.1 cm Wound Description: 100%, pink dermal tissue Drainage amount and type: moderate, seropurulent Odor: none Wound Edges: irregular Periwound: erythematous, warm to touch, painful to touch Wound Location: Right toes x5 Wound Type: Lymphedema Wound measurement: n/a Wound Description: 100%, pink dermal tissue, weeping Drainage amount and type: moderate, serous Odor: mild Periwound: erythematous, edematous Wound Location: left ankle Wound Type: abrasion Wound measurement: 8 cm x 6 cm x 0.1 cm Wound Description: 50%, pink dermal tissue, 50% scabbing Drainage amount and type: small, serous Odor: mild Wound Edges: irregular Periwound: erythematous, edematous, painful to touch Wound Location: left toes x5 Wound Type: Lymphedema Wound measurement: open areas within webspaces Wound Description: 100%, pink dermal tissue, weeping Drainage amount and type: moderate, serous Odor: mild Periwound: edematous Wound Care Goal: healing Wound Care Plan: To wounds on right chest, all toes, and left ankle: - Clean with Vashe, pat dry with 4x4 gauze. - Apply Durafiber AG, cut to fit to wound bed. For toes on both feet, cut Durafiber AG into a long strip and apply to between toes. Cover with Dry Gauze or ABD Pads. Secure right chest with Medipore tape, secure bilateral feet dressings with Kerlix roll gauze and tape. - Change dressing daily. Change sooner with dressings saturation or soilage. If wound care products are not available in your unit supply room, please check with Central Supply or hydraulic lift driver. ==== Recommendations: -Turn every 2 hours, uses wedges, offload heels with two pillows, consult/follow RD recommendations. - No diapers EXCEPT with ambulation or sitting in a chair - External catheter - Low air loss bed *Low air loss beds do not substitute for turning schedule - Avoid elevating head of bed more than 30 degrees. - Avoid use of topical creams with foam dressings. - Do not use Allevyn with runny stools. LOIS RN present for wound assessment and informed of recommendations. Sabino OSPINA informed of wound care recommendations via Secure Chat. Unit nurse is responsible for wound care. Reconsult if wound deteriorates or does not improve. Please call if you have questions. Adilene Ugarte RN, BSN, [facility] [place]: [phone] [facility]: [phone] Wound Care Registered NurseMemoStraith Hospital for Special [id number] 04:21:14 Problem: Pain - Adult Goal: Verbalizes/displays adequate comfort level or baseline comfort level Outcome: Progressing Problem: Safety - Adult Goal: Free from fall injury Outcome: Progressing Problem: Discharge Planning Goal: Discharge to home or other facility with appropriate resources Outcome: Progressing Problem: Chronic Conditions and Co-morbidities Goal: Patient's chronic conditions and co-morbidity symptoms are monitored and maintained or improved Outcome: Progressing [facility] [id number] 22:59:16 The patient is Moderately Stable - Low risk of patient condition declining or worsening The patient's goals for the shift include rest The clinical goals for the shift include completion of diagnostics Over the shift, the patient did not make progress toward the following goals. Barriers to progression include . Recommendations to address these barriers include Henny [id number] 11:46:00 Associated Order(s): ECG 12 lead (arrhythmia) History of Present Illness: Chief Complaint: Patient presents with Weakness, Gen Per EMS, pt homeless and has been sitting outside restaurant for days with no eating. Reports weakness. Hx DM, has not been taking insulin because he has not eaten for few days. Pt states "they dont like homeless people sitting around". Pt with swelling and drainage from lower legs. 70 yo M with h/o CVA, no residual deficit, HTN and DM, no routine med presents, homeless p/w generalized weakness and was sitting outside for 4 days next to a restaurant. Patient noted to have worsening weakness and having "been passed out." Also reports both legs are swollen. Patient reports drainage from both legs. Patient has been slumped over he noticed a rash on his R shoulder History provided by: Patient Patient History No past medical history on file. No past surgical history on file. No family history on file. Social History: Tobacco Use Smoking status: Not on file Smokeless tobacco: Not on file Substance Use Topics Alcohol use: Not on file Drug use: Not on file Review of Systems: Review of Systems Constitutional: Negative for chills and fever. HENT: Negative for congestion and sore throat. Eyes: Negative for pain. Respiratory: Negative for cough and shortness of breath. Cardiovascular: Negative for chest pain. Gastrointestinal: Negative for abdominal pain, diarrhea, nausea and vomiting. Genitourinary: Negative for dysuria and hematuria. Musculoskeletal: Positive for joint swelling. Negative for arthralgias, back pain and myalgias. Skin: Negative for rash. Neurological: Positive for syncope and weakness. Negative for dizziness and headaches. All other systems reviewed and are negative. Physical Exam: Constitutional: General: He is not in acute distress. HENT: Head: Normocephalic and atraumatic. Mouth/Throat: Mouth: Mucous membranes are moist. Eyes: Conjunctiva/sclera: Conjunctivae normal. Pupils: Pupils are equal, round, and reactive to light. Neck: Trachea: No tracheal tenderness or tracheal deviation. Cardiovascular: Rate and Rhythm: Normal rate and regular rhythm. Pulmonary: Breath sounds: Normal breath sounds. Chest: Chest wall: No deformity or tenderness. Abdominal: Palpations: Abdomen is soft. Tenderness: There is no abdominal tenderness. Musculoskeletal: General: Swelling and tenderness present. Cervical back: Neck supple. Right lower leg: Edema present. Left lower leg: Edema present. Skin: General: Skin is warm. Findings: No rash. Comments: Bilateral leg drainage, erythema Left chest upper pressure ulcer Neurological: General: No focal deficit present. Mental Status: He is alert. Cranial Nerves: Cranial nerves 2-12 are intact. Psychiatric: Behavior: Behavior is cooperative. Triage Vitals: BP: 100/70, Heart Rate: (!) 104, Temp: 36.7 ?C (98.1 ?F), Resp: 16, SpO2: 96 %, Height: 180.3 cm (5' 11"), Weight: 90.7 kg (200 lb) Last Recorded Vitals: BP: 136/66, Heart Rate: 68, Temp: 36.7 ?C (98.1 ?F), Resp: 15, SpO2: 99 %, Height: 180.3 cm (5' 11"), Weight: 90.7 kg (200 lb) Orders Placed This Encounter Procedures Blood culture, peripheral #1 Blood culture, peripheral #2 XR chest 1 view Complete Blood Count w/Diff and Platelet Basic metabolic panel Troponin I High Sensitivity Careset Troponin I High Sensitivity Careset (Baseline) Creatine kinase Lactic acid with 2 Hours Reflex Hepatic function panel Procalcitonin level Complete Blood Count Automated Differential Troponin I High Sensitivity Careset (1st Hr) Complete Blood Count w/Diff and Platelet Basic Metabolic Panel CK Total (Creatinine Kinase) Adult Diet Regular Cardiac monitoring Continuous Pulse Oximetry Vital Signs Vital Signs Pulse Oximetry Spot Check by Nurse Hypoglycemia Management (BG < 70 mg/dL) Notify MD If hypoglycemia persists for more than 30 minutes Notify MD Notify MD Notify MD Activity (specify) Bedrest With Exceptions; Ambulate With Assistance; Three Times Daily Full code Inpatient consult to Hospitalist Inpatient consult to Nutrition Services Inpatient consult to Wound Care OT Eval and Treat PT Eval and Treat POC Glucose ECG 12 lead (arrhythmia) Insert peripheral IV Saline lock IV Admit to inpatient ED to floor bed request Labs Reviewed BASIC METABOLIC PANEL - Abnormal Result Value Glucose Lvl 113 (*) BUN 23 Creatinine Lvl 1.46 (*) Sodium Lvl 137 Potassium Lvl 3.8 Chloride Lvl 103 CO2 Lvl 25.8 Anion Gap 12.0 Calcium Lvl 8.2 (*) eGFR 51 (*) CREATINE KINASE (CK TOTAL) - Abnormal CK Total 3,569 (*) HEPATIC FUNCTION PANEL - Abnormal Protein 6.2 Albumin Lvl 3.2 (*) Bilirubin Total 0.40 Bilirubin Direct 0.2 Bilirubin Indirect 0.2 Alkaline Phosphatase 106 AST 158 (*) ALT 30 Globulin, Calc 3.0 Albumin/Globulin Ratio 1.07 PROCALCITONIN LEVEL - Abnormal Procalcitonin 0.28 (*) COMPLETE BLOOD COUNT - Abnormal WBC 6.92 RBC 4.10 (*) NRBC % 0.0 Hgb 11.8 (*) Hct 35.3 (*) MCV 86.1 MCH 28.8 MCHC 33.4 RDW - SD 41.1 (*) Plt Count 190 MPV 9.8 AUTOMATED DIFFERENTIAL - Abnormal Segs % 68.2 Lymphs % 11.6 (*) Monos % 18.9 (*) Eos % 0.1 (*) Basos % 0.3 Immature Grans % 0.9 Segs # 4.72 Lymphs # 0.80 (*) Monos # 1.31 (*) Eos # 0.01 Basos # 0.02 Imm Grans # 0.06 TROPONIN I HIGH SENSITIVITY CARESET (BASELINE) - Normal HS Troponin I Baseline 27 LACTIC ACID WITH 2 HOUR REFLEX - Normal Lactic Acid Lvl 1.36 BLOOD CULTURE BLOOD CULTURE COMPLETE BLOOD COUNT W/DIFF AND PLATELET Narrative: The following orders were created for panel order Complete Blood Count w/Diff and Platelet. Procedure Abnormality Status --------- ------ Complete Blood Count[[id number]] Abnormal Final result Automated Differential[[id number]] Abnormal Final result Please view results for these tests on the individual orders. TROPONIN I HIGH SENSITIVITY CARESET Narrative: The following orders were created for panel order Troponin I High Sensitivity Careset. Procedure Abnormality Status --------- ------ Troponin I High Sensitiv...[[id number]] Normal Final result Troponin I High Sensitiv...[[id number]] In process Please view results for these tests on the individual orders. TROPONIN I HIGH SENSITIVITY CARESET (1ST HR) POC GLUCOSE UNSOLICITED RESULTS POC Glu 84 POC Performing Location ER XR chest 1 view Final Result Impression: 1. No acute cardiopulmonary abnormalities. Electronically signed by: Ced Patton MD 04/10/2025 05:16 PM CDT RP Medications sodium chloride (NS) 0.9 % flush 10 mL (has no administration in time range) acetaminophen (Tylenol) tablet 650 mg (has no administration in time range) ondansetron (Zofran) injection 4 mg (has no administration in time range) sodium chloride 0.9 % infusion (has no administration in time range) albumin human 25 % IV soln 25 g (has no administration in time range) sodium chloride (NS) 0.9 % flush 10 mL (has no administration in time range) sodium chloride (NS) 0.9 % flush 10 mL (has no administration in time range) dextrose 50 % solution 12.5 g (has no administration in time range) dextrose 50 % solution 25 g (has no administration in time range) glucagon injection 1 mg (has no administration in time range) enoxaparin (Lovenox) syringe 40 mg (has no administration in time range) Procedures Performed: ECG 12 lead (arrhythmia) Performed by: Mady Chauhan MD Authorized by: Rosio Vazquez NP ECG interpreted by ED Physician in the absence of a resource agent: yes Previous ECG: Previous ECG: Unavailable Interpretation: Interpretation: normal Rate: ECG rate: 67 ECG rate assessment: normal Rhythm: Rhythm: sinus rhythm Ectopy: Ectopy: none QRS: QRS axis: Left QRS intervals: Normal QRS conduction: normal ST segments: ST segments: Normal T waves: T waves: normal Q waves: Abnormal Q-waves: not present Consult Orders: Order Details: Tracking Details: Hospitalist Date/Time Event User Comments 04/10/251656 Hospitalist Consult Ordered MADY CHAUHAN Inpatient consult to Hospitalist - [[id number]] Other Date/Time Event User Comments 04/10/251657 Other Consult Ordered MALINI STOKES Inpatient consult to Nutrition Services - [[id number]] 04/10/25 1659 Other Consult Ordered MALINI STOKES Inpatient consult to Wound Care - [[id number]] ED Course : ED Course: as of 04/10/25 172ThuApril 10, 2025 1642 I gave him an update on his test results and spoke with his about hospitalization. He demonstrates verbal understanding and agrees to hospitalization. [SB] [address] Stokes. Will admit to the hospital for further care. [SB] ED Course: User Index [SB] Mady Chauhan MD Diagnoses as of 04/10/25 172 Open wound of both lower extremities with complication, initial encounter Non-traumatic rhabdomyolysis Syncope, unspecified syncope type Medical Decision Making Medical Decision Making: Patient noted to be homeless and found to have rhabdo. Will plan to admit to the hospital for further care. History obtained from the source other than the patient: None Chronic conditions affecting care: CVA, no residual deficit, HTN and DM, Differential Diagnosis: sepsis vs infection vs. Electrolyte imbalance Review of non-ED record: discharge summary 08/25/2024 Clinical lab tests: ordered and results reviewed independently by me, significant for elevated CK, mild PAUL, no electrolyte imbalance, no troponin elevation, no lactic acidosis, no leukocytosis, mild anemia, xray imaging which was independently reviewed by myself no acute pathology, No EKG changes Discussion with other providers: Hospitalist Care affected by social situation/living/substance use, economics: unable to follow-up with PCP Treatment/medications ordered during this visit: None Home meds: reviewed (if available, will continue after this ER visit, no changes) Medications considered but not prescribed: None Inpatient admission was considered but given the patient's current presentation and testing results, inpatient management is deferred and recommended outpatient follow up and evaluation. Triage note reviewed independently by me: see above External/previous documents reviewed: yes Code status: Full code Amount and/or Complexity of Data Reviewed: 5 Tests in the radiology section of CPT?: ordered and reviewed independently by me Review and summarize available past medical records or decide to retrieve prior records or obtain history from someone other than the patient: yes Discuss the patient with other providers: yes Independent visualization of images, tracings, or specimens: yes Please see laboratory and imaging result interpretations in my medical decision making section or ED course Risk of Complications, Morbidity, and/or Mortality Presenting problems: high Diagnostic procedures: high . Amount and/or Complexity of Data Reviewed External Data Reviewed: labs, radiology and notes. Labs: ordered. Decision-making details documented in ED Course. Radiology: ordered and independent interpretation performed. Decision-making details documented in ED Course. ECG/medicine tests: ordered and independent interpretation performed. Decision-making details documented in ED Course. Risk Prescription drug management. Differential diagnosis and management: Data reviewed and analyzed: Patient management: Consult Orders: Order Details: Tracking Details: Hospitalist Date/Time Event User Comments 04/10/251656 Hospitalist Consult Ordered MADY CHAUHAN Inpatient consult to Hospitalist - [[id number]] Other Date/Time Event User Comments 04/10/251657 Other Consult Ordered IGLMALINI MICHELLE Inpatient consult to Nutrition Services - [[id number]] 04/10/251658 Other Consult Ordered IGLMALINI MICHELLE Inpatient consult to Wound Care - [[id number]] Applicable prescriptions New Prescriptions No medications on file Disposition:Admit/Observation No follow-up provider specified. Mady Chauhan MD 04/10/251721 Henny RecioLrsjgib9455-54-54 13:20:20* Consultation (Routine) - Pending Review Specialty Diagnoses / Procedures Referred By Teresa yancey Referred To Contact Derrick Car Operator Diagnoses Bilateral lower extremity edema Broderick Bedolla MD [address] [place] [address] Phone: tel: fax: [employer] [address] [place] [address] [address] Phone: tel: fax: Referral ID Status Reason Start Date Expiration Date Visits Requested Visits Authorized [id number] Pending Review Specialty Services Required 04/04/2025 10/01/2025 1 1 Henny RecioMquvzah9483-72-48 13:20:20* [facility] Ocaijqz3056-15-71 13:20:20* Calculated C-SSRS Risk Score (Lifetime/Recent) Answer Date of Assessment Author No Risk Indicated 04/04/2025 7:46 AM CDT Tessie Arora RN * [place] Suicide Severity Rating Scale (Screener/Recent Self-Report) Question Answer Date of Assessment Author 1. Wish to be (Past 1 Month) No 025 7:46 AM ALAINAT Tessie Arora RN 2. Non-Specific Active Suici nhan Thoughts (Past 1 Month) No 04/04/2025 7:46 AM CDT Nicol Arora, RN 6. Suicidal Behavior (Lifetime) No 7:46 AM CDT Tessie Arora RN [facility]rtscvr5897-24-70 13:20:20Pending Results Scheduled Orders Name Type Priority Associated Diagnoses Orde r Schedule US lower extremity venous doppler bilateral Imaging Emergent Once for 1 Occur rences starting 04/04/2025 until 04/04/2025 Scheduled Referrals Name Type Priority Associated Diagnoses Order Schedule Referral to ER Navigation Outpatient Referral Routine Bilateral lower extremity edema Expected: 04/04/2025 (Approximate), Expires: 04/04/2026 Health Maintenance Due Date Last Done Comments CT Colonography 1955 Colonoscopy 1955 Colorectal Cancer Screening 1955 FIT-DNA 1955 FIT 1955 FOBT 1955 Medicare Annual Wellness (AWV) 1955 Sigmoidoscopy 1955 Diabetes: Foot Exam 1964 Diabetes: Retinopathy Screening 1964 Pneumococcal Vaccine: 50+ Years (1 of 1 - PCV) 2004 Zoster Vaccines (1 of 2) 2004 Respiratory Syncytial Virus (RSV) Adult Series (1 - Risk 60-74 years 1-dose series) 2014 Diabetes: Urine Protein Screening 02/14/2022 02/14/2021 Diabetes: Hemoglobin A1C 09/23/2024 024, 03/22/2024 Lipid Panel 06/23/2025 06/23/2024 Influenza Vaccine (Season Ended) 2025 DTaP/Tdap/Td Vaccines (3 - T d or Tdap) 12/28/2034 12/28/2024, 04/03/2024 HIB Vaccines Aged Out No longer eligi ble based on patient's age to complete this topic HPV Vaccines Aged Out No longer eligi ble based on patient's age to complete this topic Hepatitis A Vaccines Aged Out No long er eligible based on patient's age to complete this topic Hepatitis B Vaccines Aged Out No long er eligible based on patient's age to complete this topic IPV Vaccines Aged Out No longer eligi ble based on patient's age to complete this topic Meningococcal Vaccine Aged Out No rahat lety eligible based on patient's age to complete this topic Rotavirus Vaccines Aged Out No longer eligible based on patient's age to complete this topic [facility] HospitalKzgidem2709-92-98 13:20:20 Diagnosis Bilateral lower extremity ed michelle - Primary [facility] HospitalWlyedvz9281-76-21 13:20:20 [facility] HospitalBjiwfcd2849-41-91 12:59:13* Calculated C-SSRS Risk Score (Lifetime/Recent) Answer Date of Assessment Author No Risk Indicated 04/04/2025 7:46 AM Tessie Hicks RN * [place] Suicide Severity Rating Scale (Screener/Recent Self-Report) Question Answer Date of Assessment Author 1. Wish to be (Past 1 Month) No 025 7:46 AM Tessie Hicks RN 2. Non-Specific Active Suici nhan Thoughts (Past 1 Month) No 04/04/2025 7:46 AM Nicol Hicks RN 6. Suicidal Behavior (Lifetime) No 7:46 AM Tessie Hicks RN [facility] HospitalAdnfqil7046-40-17 12:59:13 [facility] HospitalBxpmwmh7075-38-96 12:59:13 [facility] HospitalSmqprfh6314-84-11 12:58:18Community Resource Recommendations [facility] HospitalVlnfuvf5270-18-74 12:58:18 [facility] HospitalJlzcykw3924-08-33 12:58:18* Calculated C-SSRS Risk Score (Lifetime/Recent) Answer Date of Assessment Author No Risk Indicated 04/04/2025 7:46 AM Tessie Hicks RN * [place] Suicide Severity Rating Scale (Screener/Recent Self-Report) Question Answer Date of Assessment Author 1. Wish to be (Past 1 Month) No 025 7:46 AM CDT Tessie Arora, SIXTO 2. Non-Specific Active Suici nhan Thoughts (Past 1 Month) No 04/04/2025 7:46 AM CDT Nicol Arora, SIXTO 6. Suicidal Behavior (Lifetime) No 5 7:46 AM CDT Tessie Arora, SIXTO [place] [id number] 12:58:18* Ro Calixto - 04/04/2025 12:45 PM CDT Patient FTF to request assistance with healthcare services. Provider referral. Referred back to PCP. CHW educated patient on PCP/Medical Home or provided CHW educated patient on ER usage or provided CHW educated patient on CRC or provided CHW educated patient on Good Rx or provided CHW educated patient on [facility] or provided CHW educated patient on Nurseline or provided CHW educated patient on The [employer] home residential list or provided CHW educated patient on [employer] or provided CHW educated patient on BRITTANIE or provided CHW educated patient on [employer] or provided CHW educated patient on [facility] or provided Continuing Care [facility] [address] [place] [address] Website: [email or web address] Request Status: Accepted Services: Residential Housing Resource for: Housing Stability Languages: Senegalese, Welsh Cost: Reduced Cost Hours of Operation Thursday -- Thursday 9:00 AM - 4:00 PM Thursday 9:00 AM - 4:00 PM Thursday 9:00 AM - 4:00 PM 9:00 AM - 4:00 PM Thursday 9:00 AM - 4:00 PM Thursday -- Community Resource Center at [address], [address], [facility] [address] Request Status: Accepted Services: Food Insecurity Services, Food Pantry, Health Education, Help Fill Out Forms, Help Understanding Government Programs Resource for: Adolescent Education, Caregiver Education and Work, Child Education, Financial Resource Strain, Food Insecurity [employer] (HFB) - Community Assistance Program (CAP) [address] [facility] [address] Website: https://www.[facility] hospitalTitanFile.org/our-programs/communityassistanceprogram/ Request Status: Accepted Services: Disability Benefits, Government Benefits, Help Fill Out Forms, Navigating the System Resource for: Financial Resource Strain Languages: Senegalese, Welsh Cost: Free [employer] [address] [facility] [address] Request Status: Accepted Services: Housing Insecurity Services, Mental Health Services, Overnight Assisted Resource for: Caregiver Health, Depression, Housing Stability, Stress [facility] - Coordinated Access [address] [facility] [address] Website: [email or web address]://[employer]mp[employer] Mobile/about-us/ Request Status: Accepted Services: Help Find Housing, Navigating the System Resource for: Housing Stability Languages: Senegalese Cost: Free Hours of Operation Thursday -- Thursday 8:00 AM - 2:30 PM Thursday 8:00 AM - 2:30 PM Thursday 8:00 AM - 2:30 PM 8:00 AM - 2:30 PM Thursday 8:00 AM - 2:30 PM Thursday -- [address] [address] Website: referral.Enevate.Biomonde Request Status: Accepted Services: Elder Community Support/Recreation, Financial Assistance, Food Pantry, Goods Resource for: Financial Resource Strain, Food Insecurity, Social Connections resource to patient. CHW instructed Patient to make appointment with Community Resource [place] for help with basic needs. Patient was educated on documents needed for the appointment. Follow up needed active. Follow up by ER Navigator or case to be closed. [facility] Sgqrdeb3809-29-67 12:58:18 [facility] Bqfakeq0487-39-59 07:28:05 Pt given printed and verbal discharge [...] with steady gait, in no apparent distress. [facility] Desire Panchal [place] [id number] 06:21:44 CC: trip and fall around 5:45AM. Patient c/o bilateral knee pain, has abrasions on L leg. Patient denies injury to head, no blood thinners. EMS gave 500MG Tylenol [place] [id number] 12:24:26 Pt called from lobby, no response. Pt left before receiving discharge instructions. [facility] Vandana Gallegos [place] [id number] 11:16:55 Reported fall off of walker, no injuries, no complaints of pain. Patient reporting to EMS that he just wants a new walker. Ambulatory, vitally stable. HX: DM. [facility] Tiara Bentley [place] [id number] 15:22:27 TRANSITIONAL CARE MANAGEMENT ASSESSMENT 08/26/2024 Raj Morales [id number] Raj Morales is a 69 year old /White male was admitted on 08/23/24 to [facility] ICU. He was discharged on 08/25/24 with discharge disposition of HR- Routine Discharge. Admitting Physician: Raj Garcia Discharge Diagnosis: Principal Diagnosis: Hypoglycemia No linked episodes TCM Wvm-adjz-aa-face outreach documentation: CM made follow up call to patient post-discharge. No answer and call went to voicemail. CM left a discreet message with purpose of call and CM's call back information. Two attempts made to reach patient. Discharge Assessment Chart Assessed: 08/26/24 TCM Outreach Completed: 08/26/24 Future Appointments: [facility] Fallon [facility]-41 12:00:32 CM made follow up call to patient post-discharge. No answer and call went to voicemail. CM left a discreet message with purpose of call and CM's call back information. [facility] 12:51:46 Problem: Falls, Risk of Goal: Absence [...] Auguste RN Outcome: Not progressing as expected T Sofi Auguste [facility]Bvlark7436-05-38 07:16:04 Problem: Falls, Risk of Goal: Absence [...] specified parameters Outcome: Not progressing as expected [facility]Ziguce0832-42-60 22:19:08 Problem: Falls, Risk of Goal: Absence [...] parameters Outcome: Progressing as expected Kamilla Prajapati [facility] - Ujbovo5644-88-98 08:52:09 Problem: Falls, Risk of Goal: Absence [...] parameters Outcome: Progressing as expected Dayana Jenkins [facility] - Nurloe0766-85-98 23:13:25 Problem: Falls, Risk of Goal: Absence [...] within specified parameters Outcome: Progressing as expected [facility]2024-10-01 15:41:50 Problem: Falls, Risk of Goal: Absence [...] venous thromboembolism (Risk) Outcome: Progressing as expected [facility]2024-10-01 14:57:39 Patient admitted to ICU 2101 for diagnosis of Hypoglycemia Patient agrees to admission, discussed plan of care with patient and family. Patient is awake, alert, oriented, resp reg unlabored, color appropriate for race, PIV intact No adverse reaction to medications administered while in ED Belongings with patient to unit [place] 679914-10-01 14:52:51 Nurse Report Report given to manager agriculture. Chief complaint, assessment findings, infusion verify and orders reviewed. Plan of care discussed. Patient/family members verbalized understanding. Josselin Saldivar RN [place] 679914-10-01 09:11:44 EMS states pt was in [facility] parking lot and was seen on the ground by bystanders who called 911. The fall was unwitnessed. Pt has abrasions to head and right knee. Complains of left knee pain and does not remember anything from the fall. Bg was 33 when ems arrived. T [facility] - Igpnna4660-65-72 09:09:[address] [facility] Emergency Department Note Patient Name: Raj Morales Date of : 1955 69 year old male Treatment Room: Primary Care Physician: PATIENT DOES NOT HAVE A PCP Patient Escorted by: Self [9] Mode of Arrival: Personal means [1] EMS Treatment Prior to ED Arrival: [employer]ER treatment: Other (comment) [employer]ER treatment comments: D10 rac 20g Travel and [...] 12/01/2019 Added automatically from request for surgery [id number] Dyslipidemia Edema of both legs 02/28/2020 Erectile [...] N/A 12/30/2019 Surgeon: Glo Finn MD; Location: [facility] OR Location CORNEAL TRANSPLANT,LAMELLAR Bilateral KNEE ARTHROSCOPY 1998 OTHER PENETRATING KERATOPLASTY PHACOEMULSIFICATION OF CATARACT WITH INTRAOCULAR LENS IMPLANT Right 03/17/2019 Surgeon: Virgil Martinez MD; Location: [facility] Review of Systems: Review of Systems Unable [...] 0.0 0.0 - 10.0 /100 WBCs NRBC x103<0.01 10*3/?L GRAN MAT (NEUT) % 88.2 % IMM GRAN % 0.90 % LYMPH % 4.8 % MONO % 5.8 % EOS % 0.0 % BASO % 0.3 % GRAN MAT x103(ANC) 10.04 (*) 1.99 - 6.95 10*3/uL IMM GRAN x1030.10 (*) 0.00 - 0.06 10*3/uL LYMPH x1030.55 (*) 1.09 - 3.23 10*3/uL MONO x1030.66 0.36 - 1.02 10*3/uL EOS x103<0.03 (*) 0.06 - 0.53 10*3/uL BASO x1030.03 0.01 - 0.09 10*3/uL COMP. METABOLIC PANEL (37071) - Abnormal NA 136 135 - 145 [...] (AUTOMATED) Cbc with Diff Comp. Metabolic Panel (48487) Lactic Acid Whole Blood Lactic Acid Whole Blood VBG+VCOOX+NA+K+GLU+CA2+ POCT GLUCOSE (AUTOMATED) POCT GLUCOSE (AUTOMATED) POCT GLUCOSE(AGE >30DAYS) POCT GLUCOSE (AUTOMATED) MRSA / MSSA Screen by PCR, Nares POCT Glucose (Age >30 Days) POCT [...] Event User Comments 08/23/24928 Medical Screening Begins RIANA PAUL -- 08/23/24928 First Provider Evaluation RIANA PAUL -- ED COURSE Diagnosis/Impression as of [...] 1/2" Syrg Comments: Reason for Stopping: Insulin [place], Disposable, (PHUC PEN NEEDLE) 32 gauge x [...] Reason for Stopping: Follow-up: Electronically signed by: Riana Paul DO 08/23/24 1724 [facility]kdbkl8029[facility]-67 11:03:58 TRANSITIONAL CARE MANAGEMENT ASSESSMENT 07/04/2024 Raj Morales [id number] Raj Morales is a 69 year old /White male was admitted on 06/23/24 to [facility]. He was discharged on 07/01/24 with discharge disposition of HR- Routine Discharge. 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 Hx HTN Hx HLD Hx IDDM w/ peripheral neuropathy Hypomagnesemia resolved 1.7 No linked episodes TCM Rag-vqbh-jj-face outreach documentation: Discharge Assessment Chart Assessed: 07/04/24 Chart Reviewed - Post Discharge Call Deferred due to Change in Discharge Status.: Discharged to SNF (SNF location: [address] () [phone] () [phone]) TCM Outreach Completed: 07/04/24 Future Appointments: Martell Fallon [facility]2112[facility]-26 15:47:57 Problem: Falls, Risk of Goal: Absence [...] infection Outcome: Adequate for discharge Homa More [facility]Xoxbdh9088-02-87 16:53:03 Problem: Falls, Risk of Goal: Absence [...] infection Outcome: Progressing as expected Kera Mcfadden [facility]Pnfmxi9898-08-10 23:46:25 Problem: Falls, Risk of Goal: Absence [...] of infection Outcome: Progressing as expected T Parvin Mcconnell [facility]Qjikdw9820-81-85 06:23:30 Problem: Falls, Risk of Goal: Absence [...] infection Outcome: Progressing as expected Jessica Williamson [facility]burgKeztwx4765-75-23 19:05:35 Problem: Falls, Risk of Goal: Absence [...] of infection Outcome: Progressing as expected T Martha White [facility] HospitalWcaasx5530-22-09 02:17:10 Problem: Falls, Risk of Goal: Absence [...] of infection Outcome: Progressing as expected T [facility] HospitalBwbzcu0467-82-36 16:18:42 Problem: Falls, Risk of Goal: Absence [...] Absence of infection Outcome: Progressing as expected [facility] Anne Cisneros [facility] HospitalYgrdgg4538-32-04 09:23:43 Vancomycin Therapeutic Monitoring Note Pharmacy to monitor vancomycin dosing for patient Raj Morales, [id number]. Primary Physician: Dr. Garcia ID Physician, if [...] any questions or concerns. Azar Ugarte PharmD, [facility] Pager: [phone] Azar Ugarte RPHUTMB - Tietya9179-04-60 01:59:04 Problem: Falls, Risk of Goal: Absence [...] Absence of infection Outcome: Progressing as expected [facility] HospitalLofmig0793-81-10 09:56:06 Problem: Falls, Risk of Goal: Absence [...] infection Outcome: Progressing as expected Libby Judge [facility]Jijuxk4691-53-69 05:59:09 Problem: Falls, Risk of Goal: Absence [...] infection Outcome: Progressing as expected Kamilla Prajapati [facility]Wkziin0306-00-96 18:13:35 Problem: Falls, Risk of Goal: Absence [...] Absence of infection Outcome: Progressing as expected [facility] HospitalWkfxbd1112-23-40 11:38:31 Summary: Vancomycin Monitoring Vancomycin Therapeutic Monitoring Note Pharmacy to monitor vancomycin dosing for patient Raj Morales, [id number]. Primary Physician: Dr. Garcia ID Physician, if [...] with any questions or concerns. Ilene Marroquin PharmD [facility] Pager: [phone] 06/25/2024 11:38 Ilene Marroquin [facility]2024-08-03 01:01:18 Problem: Falls, Risk of Goal: Absence [...] Absence of infection Outcome: Progressing as expected [facility]2024-08-02 16:18:07 Problem: Falls, Risk of Goal: Absence [...] Absence of infection Outcome: Progressing as expected [facility] Digna Rodriguez [facility]Dmtdkk5218-60-45 14:48:17 Summary: Vancomycin Monitoring Images from the original note were not included. Vancomycin Therapeutic Monitoring Note Pharmacy to monitor vancomycin dosing for patient Raj Morales, [id number]. Primary Physician: Dr. Garcia ID Physician, if [...] Marroquin RPH, RPH 06/24/2024 2:36 PM [facility] Phone: ADC: [phone] [facility] - Gxvmkb1753-31-80 23:49:41 Problem: Falls, Risk of Goal: Absence [...] infection Outcome: Progressing as expected Enrique Dumont [facility]Jpjhig1620-47-77 15:52:58 Patient admitted to 2225 for diagnosis of bacteremia, fall. Patient agrees to admission, discussed plan of care with patient and family. Patient is awake, A&Ox4, RR even and unlabored on RA. Color appropriate for race. PIV intact x1. No adverse reaction to medications administered while in ED. Belongings with patient to unit. Justine Peres [place] 989414-08-01 15:14:29 Nurse Report Report given to SIXTO Sawyer. Chief complaint, assessment findings, infusion verify and orders reviewed. Plan of care discussed at bedside with patient and both nurses. Patient/family members verbalized understanding. Justine Peres [facility]udcbb1219-67-43 11:27:44 Patient arrived by [place] [facility] for a fall. EMS reports patient fell off his walker, and the hit the left side of his head. No LOC. BGL 285. Patient is awake and alert, oriented x4. Contusion noted to the left side of the head. Quinn Moyer [place] 989414-08-01 11:25:00 AdmissionCare Guideline: Sepsis (and Other Febrile [...] performed) AdmissionCare documentation entered by: Juno Hwang [facility], 28th edition, Copyright ? 2023 [facility] All Rights Reserved. [id number]:00 [facility] HospitalElfpob1306-45-94 12:48:08 Pt given printed and verbal discharge [...] gait, in no apparent distress. Elsa White [facility]Akjclu5967-85-72 10:53:49 Patient arrived ambulatory via pov, states he was sent here for positive blood cultures. Patient c/o of abrasion to left chest/axilla area. Patient does not know which referred him here Zarina Mandujano [facility]burgXohvxb6312-70-75 10:52:00 Images from the original note were not included. [facility] Emergency Department Note Patient Name: Raj Morales Date of : 1955 69 year old male Treatment Room: [facility] Primary Care Physician: PATIENT DOES NOT [...] and DC Home. 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) 10/12/2019 Cataract OS ONLY Cellulitis of foot, left 04/12/2020 Diabetes Diabetic eye exam 12/01/2019 Added automatically from request for surgery [id number] Dyslipidemia Edema of both legs 02/28/2020 Erectile [...] N/A 12/30/2019 Surgeon: Glo Finn MD; Location: [facility] CORNEAL TRANSPLANT,LAMELLAR Bilateral KNEE ARTHROSCOPY 1999 OTHER PENETRATING KERATOPLASTY PHACOEMULSIFICATION OF CATARACT WITH INTRAOCULAR LENS IMPLANT Right 03/17/2019 Surgeon: Virgil Martinez MD; Location: [facility] Review of Systems: Review of [...] capsule 1,000 mg cephALEXin 500 mg capsule hehgdkmd-jgobmxudug-aluzifmyk 3.5mg-400 unit- 5,000 unit/gram topical ointment First [...] capsule by mouth 4 (four) times daily. DUNNHNAM-PCWHZCVEMO-LWWDJBRZY 3.5MG-400 UNIT- 5,000 UNIT/GRAM TOPICAL OINTMENT Apply [...] as directed LANCETS (TRUEPLUS LANCETS) 33 GAUGE [facility] Monitor Blood Glucose daily LISINOPRIL-HYDROCHLOROTHIAZIDE 10-12.5 MG PER TABLET Take 1 tablet by mouth once daily METFORMIN 1,000 MG TABLET Take 1 tablet by mouth 2 (two) times daily with meals. MISCELLANEOUS MEDICAL SUPPLY [facility] [...] signed by: Mulugeta Palma MD 06/20/24 1210 [facility] HospitalMsdtuq3369-61-31 18:04:26 Patient given printed and verbal discharge [...] in no apparent distress. T Jose Brooks [facility]burgDizfqj9111-40-67 16:31:13 Finished sandwich, chocolate pudding, half a jello cup and 2 packages of gram crackers. Patient fed him self independently. Tolerated well. [place] 679914-07-28 16:07:28 Provided patient with sandwich, jello, crackers and pudding. Patient swallowing well. Able to feed self independently. [place] 679914-07-28 13:45:00 Patient asked nurse "why are all the kids doing this" (makes hand sign), when nurse clarifies with patient states "there are 2 girls in my room, sitting there and and there (points to empty chairs) and they just crawled under my bed". [place] 679914-07-28 13:34:00 Patient arrived covered/soaked in urine. Tech and nurse cleaned patient and placed in clean gown. T [place] 027014-07-28 12:34:00 [facility] states: "Came in for chronic bodyaches for 3 years. No new complaints, BGL of 92 mg/dL." Patient states he falls everyday and that he fell today, no idea what time it happened. Patient not sure if the bruise/abrasion on his forehead is from today's fall or not. T Desire Panchal [facility]burgJusprc7491-14-04 19:54:51 Pt given printed and verbal discharge [...] find transportation home, in no apparent distress [facility] HospitalClnqyq8409-01-66 18:10:23 Pt presents to ED via [facility] for a fall from standing. EMS states that he tripped on walker. Pt has an abrasion to the forehead and no other c/o. No LOC, and denies dizziness. Hx of stroke Jame Sharp [facility]burgZxzndp5658-27-78 00:29:11 Pt discharged with diagnosis of fall from standing, right leg swelling, balance problem, encouraged hydration. Printed and verbal instructions reviewed with and given to pt. Pt. verbalized understanding of teaching and recommended follow-up. Denies questions or concerns at this time. Pt wheeled out to lobby at discharge. Appears in no apparent distress. rescue worker was consulted, pt will be in waiting room until business continuity consultant arrives. Advised to seek medical attention for new/prolonged/worsening of symptoms. No adverse reaction to meds given in ER noted upon discharge PIV d'cd, dressing to site, catheter in tact. Mel Obando [facility]burgRwklto7559-30-81 23:32:56 Pt was given hygiene supplies and clothes and directed to the shower to take shower and freshen up due to no means to do so. Pt is "homeless". Pt was also given snacks [facility] HospitalTgnbvf6798-21-05 18:07:43 Pt uses a walker to ambulate [facility] HospitalKnoiks3130-36-42 18:00:18 [facility] with c/o fall and edema to BLE. Pt reports "it feels like my equilibrium is off". Pt has a strong odor of urine. Hemalatha Saini [facility] HospitalXmdddv1194-97-31 17:52:00 Images from the original note were not included. [facility] Emergency Department Note Patient Name: Raj Morales Date of : 1955 69 year old male Treatment Room: [place] Primary Care Physician: PATIENT DOES NOT HAVE A PCP Patient Escorted by: Self [9] Mode of Arrival: EMS - [facility] ([place]) [43] EMS Treatment Prior to ED Arrival: LACE AND TEXTILES RESTORER treatment: IVF;Saline lock Travel and Exposure Screening: [...] 12/01/2019 Added automatically from request for surgery [id number] Dyslipidemia Edema of both legs 02/28/2020 Erectile [...] N/A 12/30/2019 Surgeon: Glo Finn MD; Location: [facility] CORNEAL TRANSPLANT,LAMELLAR Bilateral KNEE ARTHROSCOPY 1998 OTHER PENETRATING KERATOPLASTY PHACOEMULSIFICATION OF CATARACT WITH INTRAOCULAR LENS IMPLANT Right 03/17/2019 Surgeon: Virgil Martinez MD; Location: [facility] Review of Systems: Review of [...] 0.0 0.0 - 10.0 /100 WBCs NRBC x103<0.01 10*3/?L GRAN MAT (NEUT) % 77.2 % IMM GRAN % 0.40 % LYMPH % 11.2 % MONO % 10.1 % EOS % 0.9 % BASO % 0.2 % GRAN MAT x103(ANC) 8.18 (*) 1.99 - 6.95 10*3/uL IMM GRAN x1030.04 0.00 - 0.06 10*3/uL LYMPH x1031.18 1.09 - 3.23 10*3/uL MONO x1031.07 (*) 0.36 - 1.02 10*3/uL EOS x1030.09 0.06 - 0.53 10*3/uL BASO x103<0.03 0.01 - 0.09 10*3/uL COMP. METABOLIC PANEL (20575) - Abnormal NA 136 135 - 145 [...] CONTRAST Cbc with Diff Comp. Metabolic Panel (20915) Lactic Acid Whole Blood Lactic Acid Whole Blood D-Dimer No orders of the defined types were placed in this encounter. First Provider Eval: ED Events Date/Time Event User Comments 06/15/241801 Medical Screening Begins DEJON GREEN MD -- 06/15/241801 First Provider Evaluation DEJON GREEN MD -- ED COURSE Diagnosis/Impression as [...] as directed LANCETS (TRUEPLUS LANCETS) 33 GAUGE [facility] Monitor Blood Glucose daily LISINOPRIL-HYDROCHLOROTHIAZIDE 10-12.5 MG PER TABLET Take 1 tablet by mouth once daily METFORMIN 1,000 MG TABLET Take 1 tablet by mouth 2 (two) times daily with meals. MISCELLANEOUS MEDICAL SUPPLY [facility] [...] medications on file Follow-up: Electronically signed by: Dejon Green DO 06/15/242220 [facility] HospitalUrsrwf6161-43-04 05:25:21 Pt given printed and verbal discharge [...] leaving by wheelchair, in no apparent distress. [facility] HospitalCrqmco5717-51-41 01:49:35 Pt brought in by [facility] for wound on right foot and elevated blood sugar. EMS reports pt's blood glucose was 580 Milli Lopez RNGreen Cross HospitalTresil5653-05-81 01:31:00 Images from the original note were not included. [facility] Emergency Department Note Patient Name: Raj Morales Date of : 1955 69 year old male Treatment Room: [place]6/[facility] Primary Care Physician: PATIENT DOES NOT HAVE A PCP Patient Escorted by: Self [9] Mode of Arrival: EMS - [facility] ([place]) [43] EMS Treatment Prior to ED Arrival: LACE AND TEXTILES RESTORER treatment: court recording monitor;FSBG;IVF;Saline lock Travel and Exposure Screening: Symptoms [...] of Present Illness: History provided by: Patient drum attendant used: No Foot Pain Location: Foot Time [...] 12/01/2019 Added automatically from request for surgery [id number] Dyslipidemia Edema of both legs 02/28/2020 Erectile [...] N/A 12/30/2019 Surgeon: Glo Finn MD; Location: [facility] CORNEAL TRANSPLANT,LAMELLAR Bilateral KNEE ARTHROSCOPY 1998 OTHER PENETRATING KERATOPLASTY PHACOEMULSIFICATION OF CATARACT WITH INTRAOCULAR LENS IMPLANT Right 03/17/2019 Surgeon: Virgil Martinez MD; Location: [facility] Review of Systems: Review of [...] 0.0 0.0 - 10.0 /100 WBCs NRBC x103<0.01 10*3/?L GRAN MAT (NEUT) % 76.0 % IMM GRAN % 0.90 % LYMPH % 11.5 % MONO % 10.5 % EOS % 0.8 % BASO % 0.3 % GRAN MAT x103(ANC) 9.08 (*) 1.99 - 6.95 10*3/uL IMM GRAN x1030.11 (*) 0.00 - 0.06 10*3/uL LYMPH x1031.38 1.09 - 3.23 10*3/uL MONO x1031.26 (*) 0.36 - 1.02 10*3/uL EOS x1030.10 0.06 - 0.53 10*3/uL BASO x1030.04 0.01 - 0.09 10*3/uL COMP. METABOLIC PANEL (54477) - Abnormal NA 126 (*) 135 - [...] (AUTOMATED) Cbc with Diff Comp. Metabolic Panel (14107) Magnesium Urinalysis POCT GLUCOSE (AUTOMATED) POCT GLUCOSE [...] Medical Screening Begins MULUGETA PALMA MD -- 04/06/24 014 First Provider Evaluation MULUGETA PALMA MD -- ED COURSE Patient's condition improved with the treatment provided in the ED, will DC Home with instructions to follow up at the [facility] within 3 days for wound [...] as directed LANCETS (TRUEPLUS LANCETS) 33 GAUGE [facility] Monitor Blood Glucose daily LISINOPRIL-HYDROCHLOROTHIAZIDE 10-12.5 MG PER TABLET Take 1 tablet by mouth once daily METFORMIN 1,000 MG TABLET Take 1 tablet by mouth 2 (two) times daily with meals. MISCELLANEOUS MEDICAL SUPPLY [facility] [...] signed by: Mulugeta Palma MD 04/06/24 0351 [facility] HospitalLlcnfh7983-90-13 17:51:06 Pt given printed and verbal discharge [...] noted upon discharge and exit from ED. [facility] HospitalAhpnpj1557-90-00 17:21:48 Images from the original note were not included. ER Weekend Tearoom Hostess note: 04/03/2024 5:21 PM Met with the patient in room. Patient Aox4. [place] [address]. The patient was provided with cab voucher # [id number] Contacted [employer] [phone] Richard Maurer PhD, SUPERVISOR COMPOSING ROOM, [place] Care Management- Social Work Department of Care Management The [address] [place] [address] O [phone] E [email or web address] Richard Maurer [facility]2024-05-12 16:49:23 Dc after fluids T [place] 31037-05-12 16:45:00 PT much more awake and alert. Pt provided with taxi voucher, food tray given. T [place] 027014-05-12 15:18:54 Orthostatics 3:19 PM Lying: BP: 158/88 P: 87 Sitting: BP: 130/77 P: 86 Standing: BP: 126/71 P: 82 T [place] [address]-05-12 14:51:50 Images from the original note were not included. ER Weekend Tearoom Hostess note: 04/03/2024 2:51 PM RENEE met with the patient at the bedside. Initially, the patient was drowsy and unable to answer most questions. However, he expressed readiness to move to a personal senior care and was willing to pay for it. RENEE contacted Ms. Weiss from [facility] ( ) and Madhavi Abraham ( ), who explained the financial requirements for staying at their personal care homes. They said he needed to pay a bit upfront and use some of his social security for the home. RENEE also spoke with Royer from [facility] and faxed clinicals for a pending Medicaid bed. Later, RENEE talked to Pan from [facility] about the referral made on 03/22/2024. [...] going to a residential. RENEE contacted Grover, Skating Rink Manager of the [facility], to secure a bed and discussed this with the patient. The patient agreed to go to the [facility]. RENEE informed him about a meeting with [facility] social work lecturer Sonia Prajapati Thursday morning. The patient expressed unawareness of the meeting, so RENEE requested him to answer the phone when [facility] SW calls. RENEE also emailed [facility] social work lecturer Sonia Prajapati regarding the situation, seeking her assistance. Richard Maurer PhD, SUPERVISOR COMPOSING ROOM, [facility] Care Management- Social Work Department of Care Management The [address] , [place] [address] O [phone] E [email or web address]2024-05-12 09:48:46 Pt to ED c/o falls that [...] in lowest position. Call light within reach. [facility]2024-05-12 09:40:55 Raj Morales is a 69 year old male presents to ED triage with chief compliant of falls. EMS states that he has had multiple falls today, patient has a small abrasions to L forehead.- blood thinners. AAOx4. Skin warm and dry. VSS. RR E/U. NAD noted. Roomed for eval Parvin José RNUT - Yqyzem7725-18-84 09:39:00 Associated Order(s): EKG-12 Lead ROUTINE ONCE Pre-Procedure Diagnose(s): Fall, initial encounter; Injury of head, initial encounter Post-Procedure Diagnose(s): Fall, initial encounter; Injury of head, initial encounter Images from the original note were not included. 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) 10/12/2019 • Cataract OS ONLY • Cellulitis of foot, left 04/12/2020 • Diabetes • Diabetic eye exam 12/01/2019 Added automatically from request for surgery [id number] • Dyslipidemia • Edema of both legs 02/28/2020 • Erectile dysfunction, unspecified erectile dysfunction type 02/28/2020 • Essential hypertension 02/28/2020 • HTN (hypertension) • Hyperlipidemia • Obesity (BMI 30-39.9) 03/17/2019 • 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 Alcohol Use No. Drug Use No. Past Surgical History: Past Surgical History: Procedure Laterality Date • COLONOSCOPY N/A 12/30/2019 Surgeon: Glo Finn MD; Location: [facility] • CORNEAL TRANSPLANT,LAMELLAR Bilateral • KNEE ARTHROSCOPY 1998 • OTHER • PENETRATING KERATOPLASTY • PHACOEMULSIFICATION OF CATARACT WITH INTRAOCULAR LENS IMPLANT Right 03/17/2019 Surgeon: Virgil Martinez MD; Location: [facility] Review of Systems: Review of Systems Constitutional: [...] Event User Comments 04/03/24947 Medical Screening Begins ANA HAGAN MD -- 04/03/24947 First Provider Evaluation ANA HAGAN MD -- ED COURSE ED Course [...] but is agreeable to go to the [employer]. Will reassess shortly [CD] 1433 AMMONIA(!): <9 [...] subsequently to follow commands. The nurse from [facility] rehab was trying to assess the patient, [...] 12.5 Similar to previous [CD] 1135 WBC x103(!): 11.53 Assessing for infection [CD] 1132 LACTIC [...] [CD] 1047 POCT Glu (age>30days)(!): 305 [CD] 8413 69 male with history of diabetes, hypertension, [...] plan [CD] ED Course User Index [CD] Ana Hagan MD Diagnosis/Impression as of 04/03/24 1633 Fall, initial encounter Injury of head, initial encounter Cellulitis and abscess of foot Hypertension, unspecified type Hyperglycemia Dehydration Procedures: EKG-12 Lead ROUTINE ONCE Date/Time: 04/03/2024 12:25 PM Performed by: Ana Hagan MD Authorized by: Ana Hagan MD ECG interpreted by ED Physician in the absence of a resource agent: yes Previous ECG: Previous ECG: Compared to [...] as directed LANCETS (TRUEPLUS LANCETS) 33 GAUGE [facility] Monitor Blood Glucose daily LISINOPRIL-HYDROCHLOROTHIAZIDE 10-12.5 MG PER TABLET Take 1 tablet by mouth once daily METFORMIN 1,000 MG TABLET Take 1 tablet by mouth 2 (two) times daily with meals. MISCELLANEOUS MEDICAL SUPPLY [facility] [...] medications on file Follow-up: Electronically signed by: Ana Hagan MD 04/03/24 1651 [place] 027014-05-09 19:41:41 Pt discharged to home. Discharge instructions given to pt regarding management of condition and instructions to follow up with PCP. Pt verbalized understanding. PIV removed without complications. Patient in possession of all belongings. Pt ambulates to lobby with steady gait. Kunal Joiner [place] 989414-05-09 19:37:16 DISCHARGE HOLD: Pt requesting compression stockings. Materials management contacted. [place] 679914-05-09 12:35:04 Raj Morales is a 69 year old male presenting to ED with c/o fall. Patient reports using walker and reports stepped off a curb and fell. Patient reports hitting head on ground but denies LOC. No use of blood thinners. BGL "HI" for EMS. Patient received 400cc NS LACE AND TEXTILES RESTORER. BGL 526. Patient to green chairs due to ED saturation Shavon Linares [facility]rmmzg2247-13-43 18:51:55 Raj Morales verbalized an understanding of DC instructions. NAD. Respirations unlabored. Pt wheeled out to the ER lobby. Pt given cleaning wipes and reports he needs to get dressed prior to going to ER lobby. RENEE Gusman spoke with patient regarding transport. Porsha Encarnacion [facility]burgLqragz5251-45-10 18:44:41 Images from the original note were [...] she set up for him. HAIDER Sam Tearoom Hostess [facility] - Care Management Office [email or web address] [facility] Naseem Argueta [facility]2024-05-07 14:46:31 Raj Morales is a 69 year old male presenting to ED via [facility] with c/o back pain. Patient reports mechanical fall earlier today with no LOC. No use of blood thinners. Patient to green chairs due to ED saturation Shavon Linares [facility]burgDnmdou7793-09-87 16:51:23 Naseem gallo/ social work is working on getting pt a ride. DC hold until completed. Mina Ordaz [facility]burgBlalld5545-03-92 13:07:59 Social work at bedside. [facility] - Ymasyb9669-32-06 13:07:00 Images from the original note were not included. ED LBSW Case Note 03/22/2024 5:13 PM Transportation arranged via [employer] . Patient name: Raj Morales Discharge date: 03/22/2024 Reason for voucher: Pt doesn't have a means of transportation Voucher #: [id number] SW met with pt face to face Pt is AOX [address] [place] [address] In the future pt is made aware that they will need to find a ride home, unless they are non-ambulatory. Pt was made aware that the [facility] bus transportation picks up right in front of the hospital and that they can ride for free with the hospital wristband 03/12/2024 4:20 PM This LBSW met with pt at bed side to discuss the referrals sent, provide the resources that he gathered for pt. Mina, SIXTO, MD Tommie and MD Libby notified of what was done from LBSW/CM stand point 03/22/2024 4:05 PM This LBSW faxed and emailed referral to [facility] to assist pt with finding housing. 03/22/2024 3:53 PM This LBSW gathered the following resources for pt; [facility] Resources Packet [employer] Non-Emergency Medical Transport Form [facility] Information/Registration Packet [facility] Flyer [facility] available/schedule form [facility] Flyer GoodRx Card 03/22/2024 3:33 PM This [...] PM This LBSW sent referral to Magda ([address] [place] [address] ) to work him up for possibly inpt. Rehab 03/22/2024 1:07 PM This LBSW was consulted by SIXTO Enriquez regarding pt's need for housing and a new walker. This LBSW met with pt at bed side pt shared the following: - Pt has uncontrolled diabetes that hinders him from walking w/o assistance. - Pt has a daughter that lives in [place] that he is estranged from. 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 - Pt is currently homeless - Pt has [employer] as health insurance - Pt gets between $1300-$1400 a month from social security - Pt stays in front of [employer] [place] - Pt has [...] gait and steadiness of walking HAIDER Sam Tearoom Hostess [facility] - Care Management Office [email or web address] Naseem BOWLINGGrant HospitalQiexma3511-24-08 13:04:31 Pt requested help from social work for an upgraded walker and questions about housing options other than the [employer]. Social work was called. Will relay the message to pt. [facility]2024-04-30 11:08:13 Pt to XR [place] 679914-04-30 09:54:54 Raj Morales is a 69 year old male who presents to the ED with chief complaints of Left foot and leg swelling. Foot is warm to the touch. Pt rates pain as a 10/10. AAOx4. VSS. RR E/U. Skin warm and dry. NAD noted. Roomed for eval. Parvin José [facility]burgKnzdoz3009-60-90 00:01:12 Patient received discharge instructions and voiced [...] with pcp. Pt provided with resources for [facility] Becerril [facility]burgMlayxp9714-42-13 23:49:16 Dr. Green informed of pt repeat BGL and pt cleared for discharge Rachana ePttit [place] [id number] 23:48:43 SW bedside [place] 679914-04-19 23:42:25 BGL 213 after completion of 2nd liter of NaCl and 2 hours post 10u IVP insulin [place] 679914-04-19 22:46:08 BGL: 258. This is after the first 1L NaCL and 1 hour post 10u IVP insulin [place] 679914-04-19 21:37:43 Dr. Millard confirmed to give 10u insulin IVP now [place] 679914-04-19 21:30:15 BGL 579. Provider contacted to verify IVP insulin order [place] 38713-04-19 21:19:00 Pt returned from imaging NAD noted [place] 679914-04-19 20:28:55 Pt ao4 presents via EMS c/o progressive bilateral leg weakness. Pt reports he was suppose to be staying at [facility] but uncomfortable w sleeping conditions at residential. [...] approx 200ml NaCL given Dr. Millard bedside [place] 38713-04-19 20:16:12 Raj Morales is a 69 year old male presents to ED c/o bilateral leg weakness. Patient reports going on for 2-3 months, worsening tonight and unable to walk up steps to [place]. Patient Aox4, NAD noted, VSS, RR e/u. LACE AND TEXTILES RESTORER 20g R wrist, BGL HI for EMS. EKG in triage. Patient to room for further evaluation. Lacey Bentley RNCH[facility] - Jlycrx6628-62-52 20:15:[address] [facility] Emergency Department Note Patient Name: Raj Morales Date of : 1955 69 year old male Treatment Room: [address] [place] [address] Primary Care Physician: Rakesh Hzael Patient Escorted by: Self [9] Mode of Arrival: EMS - [facility] [30] EMS Treatment Prior to ED Arrival: LACE AND TEXTILES RESTORER treatment: Saline lock;IVF Travel and Exposure Screening: [...] time walking up the steps of the [employer] due to bilateral leg weakness. Patient states this has been going on for a couple of months but it was worst today. 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) 10/12/2019 Cataract OS ONLY Cellulitis of foot, left 04/12/2020 Diabetes Diabetic eye exam 12/01/2019 Added automatically from request for surgery [id number] Dyslipidemia Edema of both legs 02/28/2020 Erectile [...] N/A 12/30/2019 Surgeon: Glo Finn MD; Location: [facility] OR [facility] CORNEAL TRANSPLANT,LAMELLAR Bilateral KNEE ARTHROSCOPY 1998 OTHER PENETRATING KERATOPLASTY PHACOEMULSIFICATION OF CATARACT WITH INTRAOCULAR LENS IMPLANT Right 03/17/2019 Surgeon: Virgil Martinez MD; Location: [facility] OR [facility] Review of Systems: Review of [...] 0.0 0.0 - 10.0 /100 WBCs NRBC x103<0.01 10*3/?L GRAN MAT (NEUT) % 68.1 % IMM GRAN % 0.80 % LYMPH % 20.3 % MONO % 9.3 % EOS % 1.1 % BASO % 0.4 % GRAN MAT x103(ANC) 5.06 1.99 - 6.95 10*3/uL IMM GRAN x1030.06 0.00 - 0.06 10*3/uL LYMPH x1031.51 1.09 - 3.23 10*3/uL MONO x1030.69 0.36 - 1.02 10*3/uL EOS x1030.08 0.06 - 0.53 10*3/uL BASO x1030.03 0.01 - 0.09 10*3/uL COMP. METABOLIC PANEL (19340) - Abnormal NA 130 (*) 135 - [...] VW Cbc with Diff Comp. Metabolic Panel (89913) Creatine Kinase Troponin I POCT GLUCOSE (AUTOMATED) POCT GLUCOSE(AGE >30DAYS) POCT GLUCOSE (AUTOMATED) Orders Placed This Encounter Medications NaCl 0.9% (NS) bolus infusion 1,000 mL insulin regular human (HUMULIN R) injection 10 Units NaCl 0.9% (NS) bolus infusion 1,000 mL First Provider Eval: ED Events Date/Time Event User Comments 03/11/242022 Medical Screening Begins MICAH MILLARD MD -- 03/11/242022 First Provider Evaluation MICAH MILLARD MD -- ED COURSE Diagnosis/Impression as [...] as directed LANCETS (TRUEPLUS LANCETS) 33 GAUGE [facility] Monitor Blood Glucose daily LISINOPRIL-HYDROCHLOROTHIAZIDE 10-12.5 MG PER TABLET Take 1 tablet by mouth once daily METFORMIN 1,000 MG TABLET Take 1 tablet by mouth 2 (two) times daily with meals. MISCELLANEOUS MEDICAL SUPPLY [facility] [...] medications on file Follow-up: Electronically signed by: Micah Millard MD 03/11/24 8348 [facility]2024-03-20 14:56:30 PT D/C home. GCS15, VS stable. Given D/C paperwork. Pt ambulatory at time of discharge. Pt educated on med usage, follow up care, s/s worsening condition, need for hydration. Pt verbalized understanding. [facility] arrived to transport patient. Pt given a care package upon discharge [place] 679914-03-20 14:54:31 Pt finishing food tray [place] 679914-03-20 11:55:54 Pt states he is dizzy when he walks and has pain. Pt reports having these symptoms for months. Merry Wise [place] [id number] 21:15:50 Pt given printed and verbal discharge instructions regarding bilateral low back pain, encouraged hydration, Pt verbalized understanding of instructions,pt encouraged to follow up with pcp Advised to seek medical attention for new/prolonged/worsening of symptoms, No adverse reaction to meds given in ER noted upon discharge Awake, alert oriented, resp reg unlabored, skin w/d, pt leaving in no apparent distress, Chelsea Jackson [place] [id number] 21:08:09 Pt has been discharged for several hours. He is being loaded into a WC at this time to wait in lobby. He asked nursing to call red Qiu. Ms. Gonzalez states that her and her friend are trying to find him a residential. At this pt being placed in the lobby. [place] 027014-03-19 14:20:00 Patient c/o lower back pain. Denies injury [place] 027014-03-19 14:01:15 Patient transported by [place] [facility], patient c/o back pain and needed to be cleaned up. Patient is homeless and incontinent of urine. NAT Quinn Moyer [place] 989414-03-19 13:59:00 Images from the original note were not included. [facility] Emergency Department Note Patient Name: Raj Morales Date of : 1955 69 year old male Treatment Room: Room/bed info not found Primary Care Physician: Rakesh Hazel Patient Escorted by: Self [9] Mode of Arrival: EMS - [facility] ([place]) [43] EMS Treatment Prior to ED Arrival: LACE AND TEXTILES RESTORER treatment: Saline lock Travel and Exposure Screening: [...] was sleeping on a cot by a [employer] store and bystanders called EMS for a [...] 12/01/2019 Added automatically from request for surgery [id number] Dyslipidemia Edema of both legs 02/28/2020 Erectile [...] N/A 12/30/2019 Surgeon: Glo Finn MD; Location: [facility] OR Location CORNEAL TRANSPLANT,LAMELLAR Bilateral KNEE ARTHROSCOPY 1999 OTHER PENETRATING KERATOPLASTY PHACOEMULSIFICATION OF CATARACT WITH INTRAOCULAR LENS IMPLANT Right 03/17/2019 Surgeon: Virgil Martinez MD; Location: [facility] Review of Systems: Review of [...] User Comments 02/09/24 1400 Medical Screening Begins JOSE ROBERTO IRELAND MD -- 02/09/24 1400 First Provider Evaluation JOSE ROBERTO IRELAND MD -- ED COURSE Diagnosis/Impression as [...] as directed LANCETS (TRUEPLUS LANCETS) 33 GAUGE [facility] Monitor Blood Glucose daily LISINOPRIL-HYDROCHLOROTHIAZIDE 10-12.5 MG PER TABLET Take 1 tablet by mouth once daily METFORMIN 1,000 MG TABLET Take 1 tablet by mouth 2 (two) times daily with meals. MISCELLANEOUS MEDICAL SUPPLY [facility] [...] medications on file Follow-up: Electronically signed by: Jose Roberto Ireland MD 02/09/241709 [facility]ys[facility]ke[facility]20-37-32 11:48:50 Written/verbal d/c instructions, out of er via wheelchair, pt requests [facility] PD to call Siri BORRERO, states [employer] told him [facility] that he uses to walk, states [employer] hid his cart behind the building while [facility] transported to hospital, [facility] PD agreed to call for pt. Zarina Martin RNGreen Cross HospitalBpyons4335-94-64 09:24:07 [facility] states: "Pt is coming in for chronic back pain. He's had it for over a month now. He's homeless. Has a history of stroke. He does have a cut on his finger that he might need an antibiotic for. His bgl was 202. The police said to call him when he gets discharged and he would take him back to [facility] where he is living. The copper tapper also gave him 20 dollars so he should have some money for an antibiotic" Vandana Gallegos RNCHRISTUS [facility] - Cuhxuf5293-59-10 09:16:00 Images from the original note were not included. [facility] Emergency Department Note Patient Name: Raj Morales Date of : 1955 69 year old male Treatment Room: [place] [id number] Primary Care Physician: Rakesh Hazel Patient Escorted by: Self [9] Mode of Arrival: EMS - [facility] ([place]) [43] EMS Treatment Prior to ED Arrival: [...] He is currently homeless and lives by [facility]. 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) 10/12/2019 Cataract OS ONLY Cellulitis of foot, left 04/12/2020 Diabetes Diabetic eye exam 12/01/2019 Added automatically from request for surgery [id number] Dyslipidemia Edema of both legs 02/28/2020 Erectile [...] N/A 12/30/2019 Surgeon: Glo Finn MD; Location: [facility] CORNEAL TRANSPLANT,LAMELLAR Bilateral KNEE ARTHROSCOPY 1999 OTHER PENETRATING KERATOPLASTY PHACOEMULSIFICATION OF CATARACT WITH INTRAOCULAR LENS IMPLANT Right 03/17/2019 Surgeon: Virgil Martinez MD; Location: [facility] Review of Systems: Review of Systems Musculoskeletal: [...] Hearing normal. Nose: Nose normal. Mouth/Throat: Lips: [place]. Mouth: Mucous membranes are dry. Pharynx: Oropharynx [...] Event User Comments 02/06/24925 Medical Screening Begins SONIA MULLER -- 02/06/24925 First Provider Evaluation SONIA MULLER -- ED COURSE ED Course as [...] results [KV] ED Course User Index [KV] Sonia Muller NP Diagnosis/Impression as of 02/06/24 1137 [...] as directed LANCETS (TRUEPLUS LANCETS) [facility] Monitor Blood Glucose daily LISINOPRIL-HYDROCHLOROTHIAZIDE 10-12.5 MG PER TABLET Take 1 tablet by mouth once daily METFORMIN 1,000 MG TABLET Take 1 tablet by mouth 2 (two) times daily with meals. [facility] [...] medications on file Follow-up: Electronically signed by: Sonia Muller NP 02/06/24 1137 Associated attestation - Kumar Conway MD - 02/06/2024 11:41 AM CDT I have reviewed the PA/WAX COATING MACHINE TENDER's note and plan of care. I was available for consultation as needed at all times during the patient's visit in the emergency department. I agree with the clinical impression, plan and disposition. [place] 027014-03-09 14:56:27 Pt given discharge instructions on flank pain. Pt given prescription X 2 for bentyl and tinazadine. Pt advised to follow up with pcp. ON Gallegos [place] [id number] 10:04:33 Patient arrived via EMS for pain that started 3 weeks ago. He thinks the pain is from a stroke he had 10 years ago or the snake bite 3 weeks ago. Reports he was sleeping in a hotel 3 weeks ago that was dirty and thinks he could have been bitten. Patient is homeless and called 911 at the [facility]. 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 Pt picked up at [facility] ON Jackson [facility] HarrisburgGkvudi4516-00-28 06:35:49 CC: lower back pain x 1 week. "I think it was the mattress I was sleeping on." Pt denies urinary symptoms. 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 ON Jackson [facility] HarrisburgCyynug9346-71-97 06:31:[address] 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 He has not tried any [id number] medications as he does not like to [...] 12/01/2019 Added automatically from request for surgery [id number] Dyslipidemia Edema of both legs 02/28/2020 Erectile [...] N/A 12/30/2019 Surgeon: Glo Finn MD; Location: [facility] CORNEAL TRANSPLANT,LAMELLAR Bilateral KNEE ARTHROSCOPY 1998 OTHER PENETRATING KERATOPLASTY PHACOEMULSIFICATION OF CATARACT WITH INTRAOCULAR LENS IMPLANT Right 03/17/2019 Surgeon: Virgil Martinez MD; Location: [facility] Review of Systems: Review of Systems Constitutional: [...] as directed LANCETS (TRUEPLUS LANCETS) 33 GAUGE [facility] Monitor Blood Glucose daily LISINOPRIL-HYDROCHLOROTHIAZIDE 10-12.5 MG PER TABLET Take 1 tablet by mouth once daily METFORMIN 1,000 MG TABLET Take 1 tablet by mouth 2 (two) times daily with meals. MISCELLANEOUS MEDICAL SUPPLY [facility] [...] signed by: Jackie Diaz DO 01/05/[address] [facility]
[2025-04-17 12:59] LABS: PT Prothrombin Time 11.8 SECONDS (10-13.0); PTT, Activated Partial Thromb 28.4 SECONDS (27.2-37.4); Protime INR 1.04
[2025-04-17 13:09] LABS: Albumin 2.7 g/dL (3.4-5.0); Albumin/Globulin Ratio 0.7 (1.1-1.8); Anion Gap 10.1 mEq/L (5.0-15.0); Bilirubin Total 0.4 mg/dL (0.2-1.0); Globulin 3.8 g/dL (2.3-3.5); Protein, Total 6.5 g/dL (6.4-8.2); Troponin High Sensitivity 25.8 pg/mL (<58.9)
[2025-04-17 13:14] LABS: Absolute Lymphocytes (CBC) 0.9 K/uL (0.7-4.9); Absolute Monocytes 0.7 K/uL (0.1-1.3); Absolute Neutrophil 3.4 K/uL (1.8-8.0); Basophils % 0.2 % (0-1.3); Eosinophils % 0.4 % (0-4.4); Hematocrit 35.9 % (39.6-49.0); Hemoglobin 12.7 g/dL (13.6-17.9); Lymphocytes % 18.1 % (15.3-44.8); MCH 29.5 pg (27.0-35.0); MCHC 35.3 g/dL (32.0-36.0); MCV 83.6 fL (80-100); MPV 8.1 fL (7.6-11.3); Monocytes % 13.6 % (3.3-12.3); Neutrophils % 67.7 % (41.7-73.7); Nucleated Red Blood Cells % 0.1 % (0-0); Platelets 230 thou/uL (152-406); RBC Red Blood Cell Count 4.29 M/uL (4.33-5.43); Red Cell Distribution Width 13.6 % (12.1-15.2)
[2025-04-17 13:14] LABS: Potassium 4.1 mEq/L (3.5-5.1)
--- NOTE | 2025-04-17 13:14 | RAD REPORT ---
Exam:Foot Left 3 View CLINICAL HISTORY: Left foot swelling and redness FINDINGS: No fracture or dislocation seen. Bones are osteoporotic. No bony destructive lesion seen. Large calcaneal spurs If the patient continues to have symptoms to suggest osteomyelitis MRI could be obtained
--- NOTE | 2025-04-17 13:15 | RAD REPORT ---
Exam:Foot Right 3 View CLINICAL HISTORY: Right foot pain and swelling FINDINGS: No fracture or dislocation seen. Bones are osteoporotic. No bony destructive lesion seen. Large calcaneal spurs If the patient continues to have symptoms to suggest osteomyelitis MRI could be obtained
[2025-04-17 15:05] LABS: Atypical Lymphocytes 3 %; Lymphocytes 13 % (15-42); Monocytes 16 % (0-10); Segmented Neutrophils 51 % (40-80)
[2025-04-17 15:06] LABS: Band Neutrophils 13 % (0-1); Metamyelocytes 4 % (0-0)
[2025-04-17 15:07] LABS: Toxic Granulation 1+
[2025-04-17] MEDS ORDERED: DOXYCYCLINE 100 MG CAP PO ONE (15:22)
[2025-04-17] MEDS ORDERED: CEPHALEXIN 250 MG CAP ONE (15:22)
--- NOTE | 2025-04-17 15:25 | EDPHYS ---
Physician Documentation [facility] Name: Edwin Linton Age: 70 yrs Sex: Male : 1955 Arrival Date: 04/17/2025 Time: 11:25 Bed 17 Private MD: ED Physician Roney Romero HPI: 04/17 11:54 This 70 yrs old Male presents to ER via Unassigned with complaints of Feet dr5 Swelling. 11:54 Presents with 70-year-old male who is homeless coming in with right foot pain and dr5 swelling and redness that he noticed this morning when he took off his shoes. Patient reports that he uses a walker around town and does not take his shoes off often. Patient reports that he has a history of diabetes and takes insulin. Patient is ambulatory with steady gait with walker. Patient denies fever, chest pain, shortness of breath, abdominal pain.. Historical: - Allergies: 12:53 No Known Allergies; kn - Immunization history:: Adult Immunizations unknown. - Infectious Disease History:: Denies. - Social history:: Smoking status: Patient denies any tobacco usage or history of. ROS: 11:54 Constitutional: as per hpi dr5 Exam: 11:54 Constitutional: This is a well developed, well nourished patient who is awake, alert, dr5 and in no acute distress. Head/Face: Normocephalic, atraumatic. ENT: Nares patent. No nasal discharge, no septal abnormalities noted. Tympanic membranes are normal and external auditory canals are clear. Oropharynx with no redness, swelling, or masses, exudates, or evidence of obstruction, uvula midline. Mucous membranes moist. Neck: Trachea midline, no thyromegaly or masses palpated, and no cervical lymphadenopathy. Supple, full range of motion without nuchal rigidity, or vertebral point tenderness. No Meningismus. Chest/axilla: Normal chest wall appearance and motion. Nontender with no deformity. No lesions are appreciated. Cardiovascular: Regular rate and rhythm with a normal S1 and S2. Normal PMI, no JVD. No pulse deficits. Respiratory: Lungs have equal breath sounds bilaterally, clear to auscultation. No rales, rhonchi or wheezes noted. No increased work of breathing, no retractions or nasal flaring. Back: No spinal tenderness. No costovertebral tenderness. Full range of motion. 11:54 Neuro: Awake and alert, GCS 15, oriented to person, place, time, and situation. Cranial nerves II-XII grossly intact. Motor strength 5/5 in all extremities. Sensory grossly intact. Cerebellar exam normal. Normal gait. 11:54 Cardiovascular: Edema: 2+ edema to level of left midcalf, left ankle, left foot, left toes, right midcalf, right ankle, right foot and right toes, 11:54 Skin: cellulitis, that is moderate, on the right foot and left foot, induration, that is moderate is noted, located on the right foot and left foot, Vital Signs: 11:54 BP 131 / 68; Pulse 59; Resp 17; Temp 97.3; Pulse Ox 100% ; Weight 90.72 kg; Height 5 jl7 ft. 10 in. ; Pain 0/10; 12:00 BP 112 / 69; Pulse 52; Resp 18; Pulse Ox 98% ; kn 12:30 BP 143 / 70; Pulse 58; Resp 18; Pulse Ox 100% ; kn 13:30 BP 142 / 74; Pulse 54; Resp 20; Pulse Ox 97% ; kn 14:00 BP 135 / 67; Pulse 53; Resp 20; Pulse Ox 98% ; kn 15:00 BP 132 / 64; Pulse 53; Resp 18; Pulse Ox 98% ; kn 11:54 Body Mass Index 28.70 (90.72 kg, 177.8 cm) jl7 11:54 Pain Scale: Adult jl7 MDM: 11:27 Medical Screening Exam initiated dr5 15:27 Differential Diagnosis sepsis, Osteomyelitis, cellulitis, electrolyte abnormality. Data dr5 reviewed: vital signs, nurses notes. I considered the following discharge prescriptions or medication management in the emergency department Medications were administered in the Emergency Department. See MAR. Care significantly affected by the following chronic conditions: Diabetes, Hypertension, Heart disease. Care significantly affected by the following Social Determinants of Health: Poor access to healthcare and/or lack of insurance, Poor access to transportation, Inadequate housing, Problems related to employment. Counseling: I had a detailed discussion with the patient and/or guardian regarding the historical points, exam findings, and any diagnostic results supporting the discharge/admit diagnosis, the presence of at least one elevated blood pressure reading (>120/80) during this emergency department visit, lab results, radiology results, the need for outpatient follow up, for definitive care, a family practitioner, to return to the emergency department if symptoms worsen or persist or if there are any questions or concerns that arise at home. ED course: Patient was given first dose of antibiotics in ER. No osteomyelitis or electrolyte abnormality noted. White blood cell count is normal with lactate normal. Will have patient follow with primary care doctor for further management of cellulitis of bilateral feet. Patient is agreeable to plan. All questions answered.. 04/17 11:53 Order name: Blood Culture Adult (2) rust 04/17 11:53 Order name: CBC with Diff dr5 04/17 11:53 Order name: CMP; Complete Time: 13: rust 04/17 11:53 Order name: Lactate w/ 2H reflex if indic.; Complete Time: 13: rust 04/17 11:53 Order name: Protime (+inr); Complete Time: 13: rust 04/17 11:53 Order name: Ptt, Activated; Complete Time: 13: rust 04/17 11:53 Order name: Troponin High Sensitivity; Complete Time: 13: rust 04/17 11:53 Order name: NT PRO-BNP; Complete Time: 13: rust 04/17 15:07 Order name: Manual Differential EDAR 04/17 11:53 Order name: Foot Right 3 View XRAY; Complete Time: 13:04/17 11:53 Order name: Foot Left 3 View XRAY; Complete Time: 13:23 rust 04/17 11:53 Order name: Accucheck; Complete Time: 13:03 rust 04/17 11:53 Order name: Cardiac monitoring; Complete Time: 13:03 rust 04/17 11:53 Order name: EKG - Nurse/Tech; Complete Time: 12:33 rust 04/17 11:53 Order name: IV Saline Lock - Large Bore; Complete Time: 12:33 04/17 11:53 Order name: Labs collected and sent; Complete Time: 12:33 rust 04/17 11:53 Order name: O2 Per Protocol; Complete Time: 12:33 rust 04/17 11:53 Order name: O2 Sat Monitoring; Complete Time: 12:33 04/17 11:53 Order name: Vital Signs; Complete Time: 12:33 dr5 EC:23 Rate is 59 beats/min. Rhythm is regular. QRS [place] is Normal. PA interval is normal at dr5 146 msec. QRS interval is normal at 84 msec. QT interval is normal at 440 msec. Administered Medications: 15:25 Drug: Cephalexin PO 500 mg PO once Route: PO; kn 15:55 Follow up: Response: No adverse reaction kn 15:25 Drug: Doxycycline PO 100 mg PO once Route: PO; kn 15:55 Follow up: Response: No adverse reaction Disposition: 13:24 I was immediately available on-site in the Emergency Department for consultation in the ms3 care of the patient. Disposition Summary: 04/17/25 15:24 Discharge Ordered Notes: Location: Home dr5 Condition: Stable dr5 Diagnosis - Cellulitis, unspecified dr5 Followup: dr5 - With: Emergency Department - When: As needed - Reason: Worsening of condition Followup: dr5 - With: Private Physician - When: 1 - 2 days - Reason: Recheck today's complaints, Continuance of care, Re-evaluation by your physician Discharge Instructions: - Discharge Summary Sheet dr5 - Cellulitis, Adult dr5 Forms: - Medication Reconciliation Form dr5 - Antibiotic Education dr5 - Patient Portal Instructions dr5 - Leadership Thank You Letter dr5 Prescriptions: - Cephalexin 500 mg Oral Capsule - take 1 capsule ORAL route every 6 hours for 10 days; 40 capsule; Refills: 0, dr5 Product Selection Permitted - Doxycycline Hyclate 100 mg Oral Tablet - take 1 tablet ORAL route every 12 hours; 20 tablet; Refills: 0, Product dr5 Selection Permitted Signatures: Dispatcher [employer] EDMS Roney Romero, DO ms3 RASHAAD ESPARZA, RN RN Maverick Jaramillo, INFANT BABYSITTER-C INFANT BABYSITTER-Cdr5 Corrections: (The following items were deleted from the chart) 11:54 11:54 BLOOD CULTURE*+BA.LAB.BRZ ordered. EDMS EDMS 11:54 11:54 CBC+H.LAB.BRZ ordered. EDMS EDMS 11:54 11:54 COMPREHENSIVE METABOLIC PANEL+C.LAB.BRZ ordered. EDMS EDMS 11:54 11:54 LACTATE+C.LAB.BRZ ordered. EDMS EDMS 11:54 11:54 PROTIME (+INR)+COAG.LAB.BRZ ordered. EDMS EDMS 11:54 11:54 PTT, ACTIVATED+COAG.LAB.BRZ ordered. EDMS EDMS 11:54 11:54 Troponin High Sensitivity+C.LAB.BRZ ordered. EDMS EDMS 11:54 11:54 PROBNP+C.LAB.BRZ ordered. EDMS EDMS 11:54 11:54 Foot Right 3 View+RAD.RAD.BRZ ordered. EDMS EDMS 11:54 11:54 Foot Left 3 View+RAD.RAD.BRZ ordered. EDMS EDMS 12:54 12:53 PMHx: Cerebrovascular accident; [facility] 12:54 12:53 PMHx: Hypertensive disorder; [facility] 12:54 12:53 PMHx: diabetes mellitus; [facility] 12:54 12:53 PMHx: Hypercholesterolemia; [facility]
--- NOTE | 2025-04-17 15:25 | ER ---
Nurse's Notes [facility] Name: Edwin Linton Age: 70 yrs Sex: Male : 1955 Arrival Date: 04/17/2025 Time: 11:25 Bed 17 Private MD: Diagnosis: Cellulitis, unspecified Presentation: 04/17 11:54 Chief complaint: Patient states: Took shoes off this morning and noticed bilateral feet jl7 redness, swelling, denies pain. Coronavirus screen: At this time, the client does not indicate any symptoms associated with coronavirus-19. Ebola Screen: No symptoms or risks identified at this time. Initial Sepsis Screen: Does the patient meet any 2 criteria? No. Patient's initial sepsis screen is negative. Does the patient have a suspected source of infection? No. Patient's initial sepsis screen is negative. Risk Assessment: Do you want to hurt yourself or someone else? Patient reports no desire to harm self or others. Onset of symptoms is unknown. 11:54 Method Of Arrival: Wheelchair jl7 11:54 Acuity: ROLAND 3 jl7 Triage Assessment: 15:30 General: Appears in no apparent distress. distressed, Behavior is calm, cooperative, kn appropriate for age. Historical: - Allergies: 12:53 No Known Allergies; kn - Immunization history:: Adult Immunizations unknown. - Infectious Disease History:: Denies. - Social history:: Smoking status: Patient denies any tobacco usage or history of. Screenin:28 [facility] ED Fall Risk Assessment (Adult) History of falling in the last 3 months, kn including since admission No falls in past 3 months (0 pts) Confusion or Disorientation No (0 pts) Intoxicated or Sedated No (0 pts) Impaired Gait Yes (1 pt) Mobility Assist Device Used Yes (1 pt) Altered Elimination Yes (1 pt) Score/Fall Risk Level 3 or more points = High Risk Oriented to surroundings, Maintained a safe environment, Educated pt \T\ family on fall prevention, incl call for assistance when getting out of bed, Assessed \T\ reinforced patient's understanding of fall precautions, Hourly rounding (assess needs \T\ fall precautionary measures) done, Used ambulatory aids as needed (educated on \T\ assisted with). 15:29 Abuse screen: Denies threats or abuse. Denies injuries from another. Nutritional kn screening: No deficits noted. Tuberculosis screening: No symptoms or risk factors identified. Assessment: 12:38 Pain: Complains of pain in dorsum of right foot. kn 15:57 Reassessment: pt d/c hold, upon dc pt was found to be soiled. pt changed into paper kn scrubs. Vital Signs: 11:54 BP 131 / 68; Pulse 59; Resp 17; Temp 97.3; Pulse Ox 100% ; Weight 90.72 kg; Height 5 jl7 ft. 10 in. ; Pain 0/10; 12:00 BP 112 / 69; Pulse 52; Resp 18; Pulse Ox 98% ; kn 12:30 BP 143 / 70; Pulse 58; Resp 18; Pulse Ox 100% ; kn 13:30 BP 142 / 74; Pulse 54; Resp 20; Pulse Ox 97% ; kn 14:00 BP 135 / 67; Pulse 53; Resp 20; Pulse Ox 98% ; kn 15:00 BP 132 / 64; Pulse 53; Resp 18; Pulse Ox 98% ; kn 11:54 Body Mass Index 28.70 (90.72 kg, 177.8 cm) jl7 11:54 Pain Scale: Adult jl7 ED Course: 11:26 Patient arrived in ED. mr 11:26 Maverick Martinez, GRINDER AND HONER OPERATOR AUTOMATIC-C [facility] 11:26 Roney Romero DO is Attending Physician. dr5 11:55 Triage completed. jl7 12:03 RASHAAD ESPARZA, RN is Primary Nurse. kn 12:23 EKG done, by ED staff, reviewed by Roney Romero DO. kn 12:33 Blood Culture Adult (2) Sent. kn 12:33 CBC with Diff Sent. kn 12:33 CMP Sent. kn 12:34 Lactate w/ 2H reflex if indic. Sent. kn 12:34 Protime (+inr) Sent. kn 12:34 Ptt, Activated Sent. kn 12:34 NT PRO-BNP Sent. kn 12:34 Troponin High Sensitivity Sent. kn 12:56 No provider procedures requiring assistance completed. Inserted saline lock: 20 gauge kn in right antecubital area, using aseptic technique. 12:56 Patient has correct armband on for positive identification. Bed in low position. Call kn light in reach. Side rails up X 1. Provided Education on: use of call light. 13:00 Foot Right 3 View XRAY In Process Unspecified. EDMS 13:00 Foot Left 3 View XRAY In Process Unspecified. EDMS 15:29 IV discontinued. kn 15:30 Arm band placed on. kn Administered Medications: 15:25 Drug: Cephalexin PO 500 mg PO once Route: PO; kn 15:55 Follow up: Response: No adverse reaction kn 15:25 Drug: Doxycycline PO 100 mg PO once Route: PO; kn 15:55 Follow up: Response: No adverse reaction kn Medication: 15:30 VIS not applicable for this client. kn Outcome: 15:24 Discharge ordered by MD. dr5 15:29 Discharged to home walker kn 15:29 Condition: stable 15:29 Discharge instructions given to patient, Demonstrated understanding of instructions, follow-up care, medications, 16:48 Patient left the ED. Signatures: Dispatcher [employer] EDMT ChristopherAdriana, Reg Reg mr WilkinsBinta, RN RN Graham Jimenes, RN RN RASHAAD Rodriguez, RN Maverick Cody, GRINDER AND HONER OPERATOR AUTOMATIC-C GRINDER AND HONER OPERATOR AUTOMATIC-Cdr5 Corrections: (The following items were deleted from the chart) 12:54 12:53 PMHx: Cerebrovascular accident; kn kn 12:54 12:53 PMHx: Hypertensive disorder; kn kn 12:54 12:53 PMHx: diabetes mellitus; kn kn 12:54 12:53 PMHx: Hypercholesterolemia; kn kn
[2025-04-17 15:40] LABS: Differential Total Cells Count 100
[2025-04-17 17:00] LABS: Platelet Estimate ADEQ
[2025-04-17 17:01] VITALS: TEMP 97.3
[2025-04-17 17:01] LABS: Blood Morphology Comment NOTED (NOT SEEN); Poikilocytosis 1+; Stomatocytes 1+
[2025-04-17 17:06] VITALS: O2SAT 98
[2025-04-17 17:08] VITALS: BP 132/64
--- NOTE | 2025-04-18 12:20 | EKG ---
Test Date: 2025-04-17 Test Time: 12:23:53 Security Assurance Analyst: [id number] MEASUREMENT RESULTS: Intervals: Rate: 59 TX: 146 QRSD: 84 QT: 440 QTc: 435 [place]: P: 68 TX: 146 QRS: -32 T: 11 INTERPRETIVE STATEMENTS: Sinus bradycardia Left axis deviation Abnormal ECG Compared to ECG 01/06/2025 09:50:42 Left-axis deviation now present Sinus rhythm no longer present Left anterior fascicular block no longer present Myocardial infarct finding no longer present Electronically Signed On 04-18-25 12:17:35 CDT by Reji Vidal
== END 2025-04-17 16:48 | disposition home or self-care (01) ==
LOC: ER 11:25
DX: L03.116 Cellulitis of left lower limb (principal); L03.115 Cellulitis of right lower limb; Z59.00 Homelessness unspecified; E11.9 Type 2 diabetes mellitus without complications; Z79.4 Long term (current) use of insulin
CPT/HCPCS: 36415; 80053; 83605; 83880; 84484; 85025; 85610; 85730; 87040; 93005; 99284

== ENCOUNTER 2025-06-30 19:51 | Inpatient (IN) | payer OTHER ==
--- OUTSIDE RECORDS SUMMARY | 2025-06-30 20:10 | XMS REPORT | Continuity of Care Document ---
Author Name Unknown Address [address] [facility] [address] [place] [address] [facility] Address [address] [facility] [place] [address] Care Team Providers Care Contract Administrative Assistant Name Role Phone Pcp, Pcp Primary Care Physician Unavailab jessenia Fallon RN, Martell Harrell Attending Clinician Unavail able BRUCE RICKS Attending Clinician Unavailable JACKIE DIAZ Attending Clinician Unavailab JACKIE Mirza Attending Clinician Unavailab RAJ Jordan Attending Clinician Unavailable Doctor Unassigned, [place] Attending Clinician U navailable MO POLLARD Attending Clinician Unavailab JARRELL Casiano Attending Clinician Unavailable Oscar OSPINA, Mady Ang Attending Clinician [phone] Divya OSPINA, Malini Villegas Attending Clinician Katharina Gallo MD Attending Clinician [phone] Jarrell Washington DO Attending Clinician [phone] Ro [place] Attending Clinician Unavailab BRODERICK Aranda Attending Clinician Unavailable Graeme OSPINA, Broderick Carpenter Attending Clinician [phone] SHELBY HELTON Attending Clinician Unavailable SHELBY HELTON Attending Clinician Unavailable DONI MARK Attending Clinician Unavailable Rupa Conroy Attending Clinician [phone] BRADEN PALACIO Attending Clinician Unavailable Juno Snyder Attending Clinician [phone] Raj Garcia DO Attending Clinician [phone] Braden Palacio MD Attending Clinician [phone] Benja Pang MD Attending Clinician +[phone] Azar Solomon CRNA Attending Clinician + [phone] MULUGETA PALMA Attending Clinician Unavailable MULUGETA PALMA Attending Clinician Unavailable Juno HWANG Attending Clinician Unavailable Juno HWANG Attending Clinician Unavailable PARVEZ CALDERA Attending Clinician Unavailable PARVEZ CALDERA Attending Clinician Unavailable Parvez Zaldivar Attending Clinician [phone] DEJON GREEN Attending Clinician Unavailab Dejon Rizzo DO Attending Clinician [phone] Sonia Caruso Attending Clinician [phone] Mulugeta Palma MD Attending Clinician [phone] ANA HAGAN Attending Clinician Unavailable ANA HAGAN Attending Clinician Unavailable Ana Hagan MD Attending Clinician + [phone] MISSAEL TEE Attending Clinician Unavailable Missael Tee PA-C Attending Clinician + [phone] LEVI FRANK Attending Clinician UnavailLevi Flores Attending Clinician [phone] Nargis Moore RN Attending Clinician UnavailSonia Diaz Attending Clinician [phone] MATEUSZ GAYLE Attending Clinician Unavailable MATEUSZ GAYLE Attending Clinician Unavailable MICAH MILLARD Attending Clinician Unavailable Micah Millard MD Attending Clinician +[phone] RIANA PAUL Attending Clinician Unavailable Riana Paul DO Attending Clinician + [phone] JOSE ROBERTO IRELAND Attending Clinician Unavailable Jose Roberto Ireland MD Attending Clinician +[phone] SONIA MULLER Attending Clinician Unavailable Dejon Green DO Attending Clinician [phone] SILAS GREENE Attending Clinician Unavailable SILAS GREENE Attending Clinician Unavailable Lorene Stein Attending Clinician [phone] Tl Aranda MD Attending Clinician [phone] TL ARANDA Attending Clinician Unavailable Georgina Garcia RN Attending Clinician Unava ilnikky Doctor Unassigned, [place] Attending Clinician U navailable Provider, [facility] Attending Clinician Un available Green LUMP ROLLER, Lesli Attending Clinician [phone] Pob, 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 Attending Clinician UnavailNIMISHA Haywood Attending Clinician Unavail FRANK Chow Attending Clinician Unavailable Darrell Maxwell MD Attending Clinician [phone] Shanice MOHR, Yossi Attending Clinician [phone] YOSSI PRASAD Attending Clinician Unavailable Idalia RD, Debra Attending Clinician [phone] DEBRA FRIEDMAN Attending Clinician Unavailable DARRELL BECKFORD Attending Clinician UnaDarrell Beltran MD Attending Clinician + [phone] Chelle Fernandez MD Attending Clinician [phone] CHELLE FERNANDEZ Attending Clinician Unavailable Natividad Aparicio MD Attending Clinician UnaGlo Emanuel MD Attending Clinician [phone] GLO FINN Attending Clinician Unavailable Kendall Campa MD Attending Clinician [phone] JOCELYN GREER Attending Clinician UnavailDARRELL Khalil III Attending Clinician UnavailJUHI Castro Attending Clinician UnavailNATIVIDAD Brantley Attending Clinician Unavailab HERNANDEZ Espino Admitting Clinician UnaRAJ Nur Admitting Clinician Unavailable WOOD CORNEJO Admitting Clinician Unavailable MALINI STOKES Admitting Clinician Ileana thang Stokes MD, Malini Villegas Admitting Clinician SHELBY HELTON Admitting Clinician Unavailable Raj Garcia DO Admitting Clinician [phone] Juno HWANG Admitting Clinician Unavailable PARVEZ CALDERA Admitting Clinician Unavailable DEJON GREEN Admitting Clinician Unavailab jessenia JAIMEANA Carson Admitting Clinician Unavailable MISSAEL TEE Admitting Clinician Unavailable LEVI FRANK Admitting Clinician UnavailMATEUSZ Underwood Admitting Clinician Unavailable MICAH MILLARD Admitting Clinician Unavailable JOSE ROBERTO IRELAND Admitting Clinician Unavailable SONIA MULLER Admitting Clinician Unavailable CHELLE FERNANDEZ Admitting Clinician Unavailable TL ARANDA Admitting Clinician Unavailable Glo Finn MD Admitting Clinician [phone] GLO FINN Admitting Clinician Unavailable Payers Payer Name Policy Type Policy Number Effective Date Expirati on Date Source AETNA MEDICARE ADV PPO [id number] 2025 00:00:00 [employer] MEDICARE ADVANTAGE Medicare [id number] 2025 00:00:00 CIGNA MEDICARE ADVANTAGE HMO [id number] 2024 00:00:00 [facility] [place] (MEDICARE REPLACEMENT HMO) [id number] 2022 00:00:00 COMMERCIAL NON-CONTRACT GENERIC [id number] 2018 00:00:00 2019 00:00:00 Problems Condition Name Condition Details Condition Category Status Onset Date Resolution Date Last Treatment Date Treating Clinician Comments Source Weakness Weakness Disease Active 05-28 00:00: 00 [facility] Altered mental status, unspecifie d altered mental status type Altered mental status, unspecifie d altered mental status type Disease Active 6 00:00: 00 [facility] COVID-19 virus infection COVID-19 virus infection Disease Active 04-11 00:00: 00 [facility] Open wound of both lower extremitie s with complicati on, initial encounter Open wound of both lower extremitie s with complicati on, initial encounter Disease Active 04-10 00:00: 00 [facility] Rhabdomyol ysis Rhabdomyol ysis Disease Active 04-10 00:00: 00 [facility] PAUL (acute kidney injury) PAUL (acute kidney injury) Disease Active 04-10 00:00: 00 [facility] Type 2 diabetes mellitus Type 2 diabetes mellitus Disease Active 2025-0 5-19 00:00: 00 [facility] Hypoglycem ia Hypoglycem ia Disease Active 2023-11 0-01 00:00: 00 [facility] Bacteremia Bacteremia Disease Active 8-01 00:00: 00 [facility] Balance problem Balance problem Disease Active 7-24 00:00: 00 [facility] Omental infarction Omental infarction Disease Active 3-09 00:00: 00 [facility] Psoriasifo rm dermatitis Psoriasifo rm dermatitis Disease Active 8-18 00:00: 00 [facility] Need for 23-polyval ent pneumococc al polysaccha ride vaccine Need for 23-polyval ent pneumococc al polysaccha ride vaccine Disease Active 3-28 00:00: 00 [facility] Cellulitis of foot, left Cellulitis of foot, left Disease Active 5-21 00:00: 00 [facility] Edema of both legs Edema of both legs Disease Active 4-07 00:00: 00 [facility] Erectile dysfunctio n, unspecifie d erectile dysfunctio n type Erectile dysfunctio n, unspecifie d erectile dysfunctio n type Disease Active 4-07 00:00: 00 [facility] Essential hypertensi on Essential hypertensi on Disease Active 4-07 00:00: 00 [facility] Edema of both legs Edema of both legs Disease Active 4-07 00:00: 00 [facility] Erectile dysfunctio n, unspecifie d erectile dysfunctio n type Erectile dysfunctio n, unspecifie d erectile dysfunctio n type Disease Active 4-07 00:00: 00 [facility] Acute midline low back pain without sciatica Acute midline low back pain without sciatica Disease Active 2-26 00:00: 00 [facility] Medicare annual wellness visit, subsequent Medicare annual wellness visit, subsequent Disease Active 12-01 00:00: 00 Overview: Formattin g of this note might be different from the original. Added automatic ally from request for surgery [id number] [facility] Need for hepatitis C screening test Need for hepatitis C screening test Disease Active 2018-11 00:00: 00 [facility] Homeless Homeless Disease Active 2018-11 00:00: 00 [facility] Lesion of matthew Lesion of matthew Disease Active 2018-11 00:00: 00 [facility] Dyslipidem ia Dyslipidem ia Disease Active 2018-11 00:00: 00 [facility] Encounter for screening colonoscop y for non-high-r isk patient Encounter for screening colonoscop y for non-high-r isk patient Disease Active 2018-11 00:00: 00 [facility] 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 Disease Active 2018-11 00:00: 00 [facility] 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) Disease Active 2018-11 00:00: 00 [facility] 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) Disease Active 2018-11 00:00: 00 [facility] Erectile dysfunctio n due to type 2 diabetes mellitus Erectile dysfunctio n due to type 2 diabetes mellitus Disease Active 2018-11 00:00: 00 [facility] Obesity (BMI 30-39.9) Obesity (BMI 30-39.9) Disease Active 03-17 00:00: 00 [facility] Upper respirator y tract infection, unspecifie d type Upper respirator y tract infection, unspecifie d type Disease Resolve d 2018-11 00:00: 00 2021-07-15 00:00:00 2021-07-15 15:36:45 [facility] Allergies, Adverse Reactions, Alerts Allergy Name Allergy Type Status Severity Reaction(s) Onset Date Inactive Date Treating Clinician Comments Source NO KNOWN ALLERGIE S Drug Class Active [facility] Family History Family Member Diagnosis Comments Start Date Stop Date Sourc e Natural father Cancer [facility]ive [facility] Natural mother Cancer Unive [facility] Social History Social Habit Start Date Stop Date Quantity Comments Source Gender identity Nathaniel anabelle [facility] Sexual orientation [facility] Tobacco use and exposure 2025-05-29 00:00:00 2025-05-29 00:00:00 Smokeless tobacco non-user [facility] History of Social function 2025-04-11 00:00:00 2025-04-11 00:00:00 [facility] Alcoholic beverage intake 2025-04-10 00:00:00 2025-04-10 00:00:00 Lifetime non-drinker (finding) [facility] Alcohol intake 2024-02-11 00:00:00 2024-02-11 00:00:00 Current non-drinker of alcohol (finding) [facility] Exposure to SARS-CoV-2 (event) 2021-06-10 00:00:00 2021-07-10 10:13:00 Not sure [facility] Sex assigned at 1955 00:00:00 1955 00:00:00 [facility] Smoking Status Start Date Stop Date Source Tobacco smoking consumption unknown [facility] Never smoked tobacco [facility] Medications Ordered Medication Name Filled Medication Name Start Date Stop Date Current Medication? Ordering Clinician Indication Dosage Frequency Signature (SIG) Comments Components Source metFORMIN 500 mg tablet 05-30 11:35: 17 Yes 500mg Take 1 tablet by mouth in the morning and 1 tablet in the evening. Take with meals. [facility] amLODIPine 10 mg tablet 05-30 11:35: 17 Yes 10mg Take 1 tablet by mouth in the morning. Hold for SBP <120, DBP <60, HR <60 [facility] multivitami n with minerals (MULTIPLE VITAMIN-MIN ERALS) tablet 05-30 11:35: 17 Yes 1{tbl} Take 1 tablet by mouth in the morning. [facility] insulin glargine,hu m.rec.anlog (SEMGLEE PEN U-100 INSULIN SC) 05-30 11:35: 17 Yes 24U inject 24 Units under the skin in the morning. [facility] ketoconazol e 2 % cream 05-30 11:35: 17 Yes Apply to area(s) 2 times daily as needed for Other or Pain (scale 4-6) (Leg/Foot pain). Apply to BLE [facility] HYDROcodone -acetaminop hen 5-325 mg tablet 05-30 11:35: 17 Yes 1{tbl} Take 1 tablet by mouth every 6 hours as needed for Pain (scale 4-6). [facility] acetaminoph en (TYLENOL) 325 mg tablet 05-30 11:35: 17 Yes 650mg Take 2 tablets by mouth every 4 hours as needed for Pain (scale 1-3). [facility] ipratropium -albuteroL 0.5 mg-3 mg(2.5 mg base)/3 mL nebulizer solution 05-30 11:35: 17 Yes 3mL Inhale 3 mL every 6 hours as needed for Shortness of Breath. [facility] loperamide 2 mg capsule 05-30 11:35: 17 Yes 2mg Take 1 capsule by mouth every 4 hours as needed for Other (Diarrhea) . [facility] albuterol 2.5 mg /3 mL (0.083 %) nebulizer solution 05-30 11:35: 17 Yes 2.5mg Inhale 3 mL every 6 hours as needed for Shortness of Breath. [facility] tamsulosin (FLOMAX) capsule 0.4 mg tamsulosin (FLOMAX) capsule 0.4 mg 05-30 02:00: 00 Yes .4mg 0.4 mg, Oral, QHS, First dose on Thu05/29/25 at 2100, Until Discontinu ed, Routine [facility] enoxaparin (LOVENOX) injection 40 mg enoxaparin (LOVENOX) injection 40 mg 05-29 22:00: 00 05-30 16:35 :17 Yes 40mg 40 mg, Subcutaneo us, DAILY AT 1700, First dose on Thu05/29/25 at 1700, Until Discontinu ed, Routine [facility] Sliding Scale Insulin - Lispro (HumaLOG) [id number] 7-07 13:00: 00 05-30 16:35 :17 Yes Subcutaneo us, TID MEALS+HS, First dose on Thu05/29/25 at 0800, Until Discontinu ed, Routine [facility] glucagon HCL injection 1 mg 05-29 04:01: 50 05-30 16:35 :17 No 1mg 1 mg, Intramuscu lar, PRN, Starting on Thu05/28/25 at 2301, Until Thu05/30/25 at 1135, RICHARD, Low blood sugar, Blood Glucose < or = 70 mg/dL and patient is NPO, unable to swallow or has mental changes. [facility] dextrose 50 % in water (D50W) injection 25 mL 05-29 04:01: 50 05-30 16:35 :17 No 25mL 25 mL, Slow IV Push, PRN, Starting on Thu05/28/25 at 2301, Until Thu05/30/25 at 1135, RICHARD, Blood Glucose < or = 70 mg/dL and patient is NPO, unable to swallow or has mental status changes. [facility] ondansetron (ZOFRAN (PF)) injection 4 mg 05-29 04:01: 43 05-30 16:35 :17 No 4mg 4 mg, Slow IV Push, Q6HPRN, Starting on Thu05/28/25 at 2301, Until Thu05/30/25 at 1135, Administer over 2-5 Minutes, 2 mL [facility] acetaminoph en (TYLENOL) tablet 650 mg 05-29 04:01: 39 05-30 16:35 :17 No 650mg 650 mg, Oral, Q6HPRN, Starting on Thu05/28/25 at 2301, Until Thu05/30/25 at 1135, Routine, Pain (scale 1-3) [facility] NaCl 0.9% (NS) bolus infusion 1,000 mL 05-29 00:45: 00 05-29 01:11 :00 No 1000mL at 999 mL/hr, 1,000 mL, IV Infusion, ONCE, 1 dose, On 05/28/25 at 1945, RICHARD [facility] tamsulosin 0.4 mg 24 hr capsule 05-29 00:00: 00 06-29 04:59 :00 Yes [id number] .4mg Take 1 capsule by mouth at bedtime for 30 days. [facility] Zinc Sulfate 50 mg zinc (220 mg) Tab 05-23 00:00: 00 07-08 04:59 :00 Yes 1{capsu le} Take 1 capsule by mouth in the morning. [facility] ascorbic acid, vitamin C, 500 mg tablet 05-23 00:00: 00 07-08 04:59 :00 Yes 500mg Take 1 tablet by mouth in the morning. [facility] sodium hypochlorit e 0.25% solution 04-29 00:00: 00 Yes [id number] Apply to area(s) daily. [facility] furosemide (LASIX) injection 20 mg furosemide (LASIX) injection 20 mg 04-28 01:00: 00 04-28 15:07 :44 Yes 20mg 20 mg, Slow IV Push, Q12H, First dose on Thu04/27/25 at 2000, Until Discontinu ed, Routine [facility] tamsulosin 0.4 mg 24 hr capsule 04-28 00:00: 00 05-29 00:00 :00 No [id number] .4mg Take 1 capsule by mouth at bedtime for 30 days. [facility] tamsulosin (FLOMAX) capsule 0.4 mg tamsulosin (FLOMAX) capsule 0.4 mg 04-27 02:00: 00 Yes .4mg 0.4 mg, Oral, QHS, First dose on Thu04/26/25 at 2100, Until Discontinu ed, Routine [facility] enoxaparin (LOVENOX) injection 40 mg enoxaparin (LOVENOX) injection 40 mg 04-26 22:00: 00 04-29 00:37 :33 Yes 40mg 40 mg, Subcutaneo us, DAILY AT 1700, First dose on Thu04/26/25 at 1700, Until Discontinu ed, Routine [facility] acetaminoph en (TYLENOL) tablet 1,000 mg 04-26 19:01: 42 04-29 00:37 :34 No 1000mg 1,000 mg, Oral, Q8HPRN, Starting on Thu04/26/25 at 1401, Until Thu04/28/25 at 1937, Routine, Pain (scale 1-3) [facility] traMADoL (ULTRAM) tablet 50 mg 04-26 19:01: 09 04-29 00:37 :34 No 50mg 50 mg, Oral, Q6HPRN, Starting on Thu04/26/25 at 1401, Until Thu04/28/25 at 1937, Routine, Pain (scale 7-10) [facility] sodium hypochlorit e 0.25% (DAKIN'S SOLUTION) solution sodium hypochlorit e 0.25% (DAKIN'S SOLUTION) solution 04-26 14:00: 00 Yes Topical, DAILY, First dose on Thu04/26/25 at 0900, Until Discontinu ed, Routine [facility] KCL (POTASSIUM CHLORIDE) 20 mEq, sodium chloride 38.52 mEq in dextrose 10 % in water (D10W) 1,000 mL IV infusion KCL (POTASSIUM CHLORIDE) 20 mEq, sodium chloride 38.52 mEq in dextrose 10 % in water (D10W) 1,000 mL IV infusion 04-26 02:15: 00 04-26 08:14 :11 Yes IV Infusion, CONTINUOUS , Starting on Thu04/25/25 at 2115, Until Thu04/26/25 at 0314, Routine [facility] Sliding Scale Insulin - Lispro (HumaLOG) [id number] [id number] 6-04 01:00: 00 04-29 00:37 :34 Yes Subcutaneo us, Q4H, First dose on Thu04/25/25 at 2000, Until Discontinu ed, Routine [facility] glucagon HCL injection 1 mg 04-26 00:44: 40 04-29 00:37 :34 No 1mg 1 mg, Intramuscu lar, PRN, Starting on Thu04/25/25 at 1944, Until Thu04/28/25 at 1937, RICHARD, Low blood sugar, Blood Glucose < or = 70 mg/dL and patient is NPO, unable to swallow or has mental changes. [facility] dextrose 50 % in water (D50W) injection 25 mL 04-26 00:44: 40 04-29 00:37 :34 No 25mL 25 mL, Slow IV Push, PRN, Starting on Thu04/25/25 at 1944, Until Thu04/28/25 at 1937, RICHARD, Blood Glucose < or = 70 mg/dL and patient is NPO, unable to swallow or has mental status changes. [facility] dextrose 50 % in water (D50W) injection 50 mL 04-26 00:15: 00 04-26 00:08 :00 No 50mL 50 mL, Intravenou s, ONCE, 1 dose, On Thu04/25/25 at 1915, STAT [facility] ascorbic acid (Vitamin C) 250 MG tablet ascorbic acid (Vitamin C) 250 MG tablet 04-14 00:00: 00 05-14 23:59 :00 No 250mg QD Take 1 tablet by mouth 1 time each day. [facility] zinc sulfate (Zincate) 220 (50 Zn) MG capsule zinc sulfate (Zincate) 220 (50 Zn) MG capsule 04-14 00:00: 00 05-14 23:59 :00 No 220mg QD Take 1 capsule by mouth 1 time each day. [facility] metFORMIN XR (Glucophage -XR) 24 hr tablet 500 mg metFORMIN XR (Glucophage -XR) 24 hr tablet 500 mg 04-13 17:00: 00 Yes 500mg 500 mg, Oral, 2 times daily with meals, First dose on Thu04/13/25 at 1700, Do not crush, chew, or split. [facility] metFORMIN XR (Glucophage -XR) 500 MG 24 hr tablet metFORMIN XR (Glucophage -XR) 500 MG 24 hr tablet 04-13 00:00: 00 05-13 23:59 :00 No 137 500mg Take 1 tablet by mouth in the morning and 1 tablet in the evening. Take with meals. Do not crush, chew, or split. [facility] cephalexin (Keflex) 500 MG capsule cephalexin (Keflex) 500 MG capsule 04-13 00:00: 00 04-18 23:59 :00 No 500mg Q6H Take 1 capsule by mouth in the morning and 1 capsule at noon and 1 capsule in the evening and 1 capsule before bedtime. Do all this for 20 doses. [facility] Premier Protein Shake liquid 325 mL Premier Protein Shake liquid 325 mL 04-12 08:00: 00 Yes 1{bottl e} QD 325 mL (1 Bottle), Oral, Daily with breakfast, First dose on Thu04/12/25 at 0800 [facility] ascorbic acid (Vitamin C) tablet 250 mg ascorbic acid (Vitamin C) tablet 250 mg 04-11 15:00: 00 Yes 250mg QD 250 mg, Oral, Daily, First dose on Thu04/11/25 at 1500 [facility] zinc sulfate (Zincate) capsule 220 mg zinc sulfate (Zincate) capsule 220 mg 04-11 15:00: 00 Yes 220mg QD 220 mg, Oral, Daily, First dose on Thu04/11/25 at 1500 [facility] cephalexin (Keflex) capsule 500 mg cephalexin (Keflex) capsule 500 mg 04-11 15:00: 00 04-18 14:59 :00 No 500mg Q6H 500 mg, Oral, Every 6 hours, First dose on Thu04/11/25 at 1500, For 7 days, Suspected Indication (Select all that apply): Skin/Soft Tissue Infection [facility] hydrALAZINE injection 10 mg hydrALAZINE injection 10 mg 04-11 05:30: 00 04-11 05:48 :00 No 10mg 10 mg, Intravenou [...] insulin lispro (HumaLOG, Admelog) injection 2-8 Units [id number] 5-19 17:41: 41 Yes 2U [id number] 3D 2-8 Units, Subcutaneo us, 3 times [...] unable to swallow or npo and notify . [facility] Epic dextrose 50 % solution 25 g dextrose 50 % solution 25 g 04-10 16:58: 04 Yes 25g 25 g, Intravenou s, As needed, other, if Blood Glucose </= 50 mg/dL, Starting on Thu04/10/25 at 1658, If BG </=50 mg/dL, give 50 mL of D50W IV push STAT and notify MD. [facility] Epic dextrose 50 % solution 12.5 g dextrose 50 % solution 12.5 g 04-10 16:58: 04 Yes 12.5g 12.5 g, Intravenou s, As needed, low blood sugar, if Blood Glucose 51- 69 mg/dL, Starting on Thu04/10/25 at 1658, For BG 51-69 mg/dL and patient UNCONSCIOU S OR UNABLE TO SWALLOW OR NPO: Give 25 mL of D50W IV push and notify . [facility] sodium chloride (NS) 0.9 [...] dose, On Thu12/28/24 at 0745, Routine [facility] ibuprofen 800 mg tablet 12-28 00:00: 00 Yes [id number] 800mg Take 1 tablet by mouth every 8 (eight) hours as needed for Pain (scale 4-6). [facility] insulin regular (NovoLIN R) 100 UNIT/ML injection insulin regular (NovoLIN R) 100 UNIT/ML injection 2023-11 00:00: 00 04-13 00:00 :00 No Inject under the skin in the morning and at noon and in the evening. Inject with meals. Per sliding scale. [facility] mupirocin (BACTROBAN OINT) 2 % oinintment 2023-11 0 19:00: 00 Yes [facility] Sliding Scale Insulin - Lispro (HumaLOG) 2023-11 0 17:00: 00 Yes Subcutaneo us, TID MEALS+HS, First dose on Thu08/25/24 at 1200, Until Discontinu ed, Routine [facility] metFORMIN (GLUCOPHAGE ) tablet 500 mg 2023-11 0 17:00: 00 Yes 500mg 500 mg, Oral, BID MEALS, First dose on Thu08/25/24 at 1200, Until Discontinu ed, Routine [facility] atorvastati n (LIPITOR) tablet 20 mg 2023-11 0 02:00: 00 Yes 20mg 20 mg, Oral, QHS, First dose on Thu08/24/24 at 2100, Until Discontinu ed [facility] mupirocin 2 % ointment 2023-11 00:00: 00 Yes [id number] Apply to area(s) 3 (three) times daily. [facility] lisinopriL- hydrochloro thiazide 10-12.5 mg per tablet 2023-11 00:00: 09-25 04:59 :00 No [id number] 1{tbl} Take 1 tablet by mouth in the morning for 30 days. [facility] furosemide 20 mg tablet 2023-11 00:00: 09-25 04:59 :00 No [id number] 20mg Take 1 tablet by mouth in the morning for 30 days. [facility] aspirin 81 mg EC tablet 2023-11 00:00: 09-25 04:59 :00 No [id number] 81mg Take 1 tablet by mouth in the morning for 30 days. [facility] gabapentin (NEURONTIN) 100 mg capsule 2023-11 00:00: 09-25 04:59 :00 No [id number] 200mg Take 2 capsules by mouth in the morning and 2 capsules at noon and 2 capsules in the evening. Do all this for 30 days. [facility] metFORMIN 1,000 mg tablet 2023-11 00:00: 00 09-25 04:59 :00 No [id number] 1000mg Take 1 tablet by mouth in the morning and 1 tablet in the evening. Take with meals. Do all this for 30 days. [facility] simvastatin 40 mg tablet 2023-11 00:00: 09-25 04:59 :00 No [id number] 40mg Take 1 tablet by mouth at bedtime for 30 days. [facility] gabapentin (NEURONTIN) capsule 200 mg 2023-11 19:00: 00 Yes 200mg 200 mg, Oral, TID, First dose (after last modificati on) on Thu08/24/24 at 1400, Until Discontinu ed, Routine [facility] D10W 10 % IV infusion 2023-11 17:00: 00 08-25 00:50 :56 No at 50 mL/hr, IV Infusion, CONTINUOUS , Starting on Thu08/24/24 at 1200, Until Thu08/24/24 at 1950, Routine [facility] D10W 10 % IV infusion 2023-11 15:45: 00 08-24 16:52 :00 No at 100 mL/hr, IV Infusion, CONTINUOUS , Starting on Thu08/24/24 at 1045, Until Thu08/24/24 at 1152, Routine [facility] lisinopriL (PRINIVIL,Z ESTRIL) tablet 10 mg 2023-11 14:00: 00 Yes 10mg 10 mg, Oral, DAILY, First dose on Thu08/24/24 at 0900, Until Discontinu ed, Routine [facility] aspirin EC tablet 81 mg 2023-11 14:00: 00 Yes 81mg 81 mg, Oral, DAILY, First dose on Thu08/24/24 at 0900, Until Discontinu ed, Routine [facility] hydroCHLORO thiazide (ESIDRIX) tablet 12.5 mg 2023-11 14:00: 00 08-24 13:33 :00 No 12.5mg 12.5 mg, Oral, DAILY, 1 dose, First dose on Thu08/24/24 at 0900, Routine [facility] furosemide (LASIX) injection 40 mg 2023-11 05:00: 00 Yes 40mg 40 mg, Slow IV Push, DAILY, First dose on Thu08/24/24 at 0000, Until Discontinu ed, Routine [facility] gabapentin (NEURONTIN) capsule 100 mg 2023-11 01:00: 00 08-24 17:10 :41 No 100mg 100 mg, Oral, TID, First dose on Thu08/23/24 at 2000, Until Discontinu ed, Routine [facility] HYDROcodone -acetaminop hen (NORCO 5) tablet 1 tablet 2023-11 00:38: 38 Yes 1{tbl} 1 tablet, Oral, Q6HPRN, Starting on Thu08/23/24 at 1938, Until Discontinu ed, Routine, Pain (scale 7-10) [facility] tiZANidine (ZANAFLEX) tablet 4 mg 2023-11 00:38: 06 Yes 4mg [facility] enoxaparin (LOVENOX) injection 40 mg 2023-11 22:00: 00 Yes 40mg 40 mg, Subcutaneo us, DAILY, First dose on Thu08/23/24 at 1700, Until Discontinu ed, Routine [facility] D10W 10 % IV infusion 2023-11 21:45: 00 08-24 15:36 :54 No at 200 mL/hr, IV Infusion, CONTINUOUS , Starting on Thu08/23/24 at 1645, Until Thu08/24/24 at 1036, Routine [facility] D10W 10 % IV infusion 2023-11 17:00: 00 08-23 21:34 :55 No at 150 mL/hr, IV Infusion, CONTINUOUS , Starting on Thu08/23/24 at 1200, Until Thu08/23/24 at 1634, Routine [facility] glucagon HCL injection 1 mg 2023-11 16:36: 57 Yes 1mg 1 mg, Intramuscu lar, PRN, Starting on Thu08/23/24 at 1136, Until Discontinu ed, RICHARD, Low blood sugar, Blood Glucose < or = 70 mg/dL and patient is NPO, unable to swallow or has mental changes. [facility] dextrose 50 % in water (D50W) injection 25 mL 2023-11 16:36: 57 Yes 25mL 25 mL, Slow IV Push, PRN, Starting on Thu08/23/24 at 1136, Until Discontinu ed, RICHARD, Blood Glucose < or = 70 mg/dL and patient is NPO, unable to swallow or has mental status changes. [facility] dextrose 50 % in water (D50W) injection 50 mL 2023-11 16:00: 00 08-23 15:54 :00 No 50mL 50 mL, Intravenou s, ONCE, 1 dose, On Thu08/23/24 at 1100, STAT [facility] dextrose 50 % in water (D50W) injection 25 mL 2023-11 14:45: 00 08-23 14:41 :00 No 25mL 25 mL, Slow IV Push, ONCE, 1 dose, On Thu08/23/24 at 0945, STAT [facility] insulin NPH (HUMULIN N NPH U-100 INSULIN) 100 unit/mL injection 07-01 00:00: 00 08-01 04:59 :00 No [id number] 20U inject 20 Units under the skin 2 (two) times daily before breakfast and dinner for 30 days. [facility] amoxicillin -clavulanat e 875-125 mg per tablet 07-01 00:00: 00 07-23 04:59 :00 No [id number] 1{tbl} Take 1 tablet by mouth every 12 (twelve) hours for 21 days. [facility] amoxicillin -clavulanat e (AUGMENTIN) 875-125 mg per tablet 1 tablet 06-28 19:30: 00 07-02 12:59 :00 No 1{tbl} 1 tablet, Oral, Q12H, 8 doses, First dose on Thu06/28/24 at 1430, Last dose on Thu07/01/24 at 2000, Routine, Reason for Anti-Infec tive: Documented Infection, Documented Infection Site: Urine, Duration of Therapy: 7 days [facility] rifAMPin (RIFADIN) capsule 300 mg 06-28 17:15: 00 06-28 19:42 :55 No 300mg 300 mg, Oral, Q8H, First dose on Thu06/28/24 at 1215, Until Discontinu ed, RICHARD, Reason for Anti-Infec tive: Documented Infection, Documented Infection Site: Blood, Duration of Therapy: 7 days [facility] cefTRIAXone (ROCEPHIN) 1,000 mg in NaCl 0.9% (NS) 100 mL MINI-BAG 06-28 03:00: 00 06-28 19:17 :32 No 1000mg 1,000 mg, IV Piggyback, Q24H ABX, 7 doses, First dose on Thu06/27/24 at 2200, Last dose on Thu07/03/24 at 2200, Administer over 30 Minutes, 100 mL, Reason for Anti-Infec tive: Documented Infection, Documented Infection Site: Urine, Duration of Therapy: 7 days [facility] NaCl 0.9% (NS) IV infusion 1,000 mL 06-27 19:00: 00 06-29 06:11 :11 No 1000mL at 50 mL/hr, IV Infusion, CONTINUOUS , Starting on Thu06/27/24 at 1400, Until Thu06/29/24 at 0111, Routine, KVO [facility] Saline Bubble Study 06-27 18:24: 13 Yes [id number] 6mL 6 mL, Injection, SEE-INSTRU CTIONS, Starting on Thu06/27/24 at 1324, Until Discontinu ed, Routine [facility] vancomycin (VANCOCIN) 1,000 mg in NaCl 0.9% (NS) 250 mL VIAL-MATE IV piggyback 06-27 17:00: 00 07-04 16:59 :00 No 1000mg 1,000 mg, IV Piggyback, Q12H ABX, 14 doses, First dose on Thu06/27/24 at 1200, Last dose on Thu07/04/24 at 0000, Administer over 60 Minutes, 250 mL, Reason for Anti-Infec tive: Documented Infection, Documented Infection Site: Blood, Duration of Therapy: 7 days [facility] NaCl 0.9% (NS) injection 10 mL 06-27 15:11: 58 Yes 10mL 10 mL, Slow IV Push, PRN, Starting on Thu06/27/24 at 1011, Until Discontinu ed, Routine, line maintenanc e [facility] lidocaine 1% (PF) (XYLOCAINE) injection 5 mL 06-27 15:11: 58 06-27 15:45 :00 No 5mL 5 mL, Subcutaneo us, PRN, 1 dose, Starting on Thu06/27/24 at 1011, Until Thu06/27/24 at 1045, Routine, Local anesthesia [facility] magnesium sulfate in D5W 1 gram/100 mL RTU IV Piggyback 1 g 06-26 15:15: 00 06-26 16:55 :00 No 1g 1 g, IV Piggyback, ONCE, 1 dose, On Thu06/26/24 at 1015, Administer over 60 Minutes, 100 mL [facility] lisinopriL (PRINIVIL,Z ESTRIL) tablet 20 mg 06-26 13:00: 00 Yes 20mg 20 mg, Oral, BID, First dose (after last modificati on) on Thu06/26/24 at 0800, Until Discontinu ed, [facility] hydral[facility] (APRESOLINE ) injection 10 mg 06-26 12:45: 32 Yes 10mg 10 mg, Slow IV Push, Q4HPRN, Starting on Thu06/26/24 at 0745, Until Discontinu ed, Routine, DBP=>100; SBP=>160 [facility] lisinopriL (PRINIVIL,Z ESTRIL) tablet 20 mg 06-25 14:00: 00 06-26 12:45 :20 No 20mg 20 mg, Oral, DAILY, First dose (after last modificati on) on Thu06/25/24 at 0900, Until Discontinu ed, Routine [facility] atorvastati n (LIPITOR) tablet 40 mg 06-25 02:00: 00 Yes 40mg 40 mg, Oral, QHS, First dose on Thu06/24/24 at 2100, Until Discontinu ed [facility] lisinopriL (PRINIVIL,Z ESTRIL) tablet 10 mg 06-24 20:45: 00 06-25 00:21 :41 No 10mg 10 mg, Oral, DAILY, First dose on Thu06/24/24 at 1545, Until Discontinu ed, Routine [facility] vancomycin 1,250 mg in NaCl 0.9% (NS) 250 mL VIAL-MATE IV piggyback 06-24 15:30: 00 06-27 14:18 :02 No 1250mg 1,250 mg, IV Piggyback, Q12H ABX, First dose on Thu06/24/24 at 1030, Until Discontinu ed, Administer over 90 Minutes, 250 mL, Reason for Anti-Infec tive: Documented Infection, Documented Infection Site: Blood, Duration of Therapy: 7 days [facility] furosemide (LASIX) tablet 20 mg 06-24 14:00: 00 Yes 20mg 20 mg, Oral, DAILY, First dose on Thu06/24/24 at 0900, Until Discontinu ed, Routine [facility] aspirin EC tablet 81 mg 06-24 14:00: 00 Yes 81mg 81 mg, Oral, DAILY, First dose on Thu06/24/24 at 0900, Until Discontinu ed, Routine [facility] gabapentin (NEURONTIN) capsule 100 mg 06-24 13:00: 00 Yes 100mg 100 mg, Oral, TID, First dose on Thu06/24/24 at 0800, Until Discontinu ed, Routine [facility] insulin NPH (HUMULIN N) injection 20 Units 06-24 12:30: 00 Yes 20U 20 Units, Subcutaneo us, BIDAC, First dose on Thu06/24/24 at 0730, Until Discontinu ed, Routine [facility] tiZANidine (ZANAFLEX) tablet 4 mg 06-24 12:28: 17 Yes 4mg [facility] ondansetron (ZOFRAN (PF)) injection 4 mg 06-24 09:32: 26 Yes 4mg 4 mg, Slow IV Push, Q6HPRN, Nausea and Vomiting (N/V), Starting on Thu06/24/24 at 0432, Doses of ondansetro n 16 mg and above need to be administer ed via IV piggyback. For Dose >=24mg ECG monitoring is advisable. [facility] enoxaparin (LOVENOX) injection 40 mg 06-23 22:00: 00 Yes 40mg 40 mg, Subcutaneo us, DAILY, First dose on Thu06/23/24 at 1700, Until Discontinu ed, Routine [facility] Sliding Scale Insulin - Lispro (HumaLOG) 06-23 22:00: 00 Yes Subcutaneo us, TID MEALS+HS, First dose on Thu06/23/24 at 1700, Until Discontinu ed, Routine [facility] cefTRIAXone (ROCEPHIN) 1,000 mg in NaCl [...] Site: Urine, Duration of therapy: 5 days [facility] acetaminoph en (TYLENOL) tablet 650 mg 06-23 19:05: 37 Yes 650mg 650 mg, Oral, Q6HPRN, Starting on Thu06/23/24 at 1405, Until Discontinu ed, Routine, Pain (scale 1-3) [facility] glucagon (GLUCAGEN DIAGNOSTIC KIT) injection 1 mg 06-23 19:03: 24 Yes 1mg 1 mg, Intramuscu lar, PRN, Starting on Thu06/23/24 at 1403, Until Discontinu ed, RICHARD, Blood Glucose < or = 70 mg/dL and patient is NPO, unable to swallow or has mental changes. [facility] dextrose 50 % in water (D50W) injection 25 mL 06-23 19:03: 24 Yes 25mL 25 mL, Slow IV Push, PRN, Starting on Thu06/23/24 at 1403, Until Discontinu ed, RICHARD, Blood Glucose < or = 70 mg/dL and patient is NPO, unable to swallow or has mental status changes. [facility] vancomycin (VANCOCIN) 1,500 mg in NaCl [...] Site: Blood, Duration of Therapy: Once (ED) [facility] cephALEXin (KEFLEX) capsule 1,000 mg 06-20 17:00: 00 06-20 17:01 :00 No 1000mg 1,000 mg, Oral, ONCE, 1 dose, On 06/20/24 at 1200, RICHARD, Reason for Anti-Infec tive: Documented Infection, Documented Infection Site: Skin / Soft Tissue, Duration of Therapy: Once (ED) [facility] neomycin-ba citracin-po lymyxin 3.5mg-400 unit- 5,000 unit/gram topical ointment 06-20 00:00: 00 08-23 00:00 :00 No [id number] Apply to area(s) 4 (four) times daily. [facility] cephALEXin 500 mg capsule 06-20 00:00: 00 07-01 00:00 :00 No [id number] 500mg Take 1 capsule by mouth 4 (four) times daily. [facility] ketorolac (TORADOL) injection 15 mg 06-19 19:30: 00 06-19 18:25 :00 No 15mg 15 mg, Slow IV Push, ONCE, 1 dose, On 06/19/24 at 1430, RICHARD [facility] cefTRIAXone (ROCEPHIN) 1,000 mg in NaCl 0.9% (NS) 100 mL MINI-BAG 06-19 19:00: 00 06-19 19:49 :00 No 1000mg 1,000 mg, IV Piggyback, ONCE, 1 dose, On 06/19/24 at 1400, Administer over 30 Minutes, 100 mL, Reason for Anti-Infec tive: Empiric Therapy for Suspected Infection, Empiric Therapy Site: Urine, Duration of therapy: Once (ED) [facility] mupirocin 2 % ointment 06-19 00:00: 00 08-23 00:00 :00 No [id number] Apply to area(s) 3 (three) times daily. [facility] furosemide (LASIX) tablet 40 mg 06-17 00:30: 00 06-16 23:47 :00 No 40mg 40 mg, Oral, ONCE, 1 dose, On Thu06/16/24 at 1930, Routine [facility] acetaminoph en (TYLENOL) tablet 1,000 mg 06-16 23:45: 00 06-16 23:47 :00 No 1000mg 1,000 mg, Oral, ONCE NOW, 1 dose, On Thu06/16/24 at 1845, Routine [facility] insulin regular human (HUMULIN R) injection 5 Units 04-06 10:30: 00 04-06 09:38 :00 No 5U 5 Units, Subcutaneo us, ONCE, 1 dose, On Thu04/06/24 at 0530, Routine, Indication for insulin: Hyperglyce danae [facility] insulin regular human (HUMULIN R) injection 5 Units 04-06 09:30: 00 04-06 08:38 :00 No 5U 5 Units, Subcutaneo us, ONCE, 1 dose, On Thu04/06/24 at 0430, Routine, Indication for insulin: Hyperglyce danae [facility] ergocalcife rol (vitamin d2) (CALCIFEROL ) capsule 50,000 Units 04-06 09:00: 00 04-06 08:33 :00 No [id number] 50,000 Units, Oral, ONCE NOW, 1 dose, On Thu04/06/24 at 0400, Routine [facility] magnesium sulfate in water 2 gram/50 mL (4 %) infusion 2 g 04-06 08:45: 00 04-06 09:30 :00 No 2g 2 g, IV Piggyback, Administer over 60 Minutes, ONCE, 1 dose, On Thu04/06/24 at 0345, [facility] thiamine (VITAMIN B1) injection 100 mg 04-06 08:00: 00 04-06 08:32 :00 No 100mg 100 mg, Slow IV Push, ONCE, 1 dose, On Thu04/06/24 at 0300, [facility] ceFAZolin (ANCEF) 1,000 mg in NaCl 0.9% (NS) 100 mL MINI-BAG 04-06 07:45: 00 04-06 07:30 :00 No 1000mg 1,000 mg, Intravenou s, ONCE, 1 dose, On Thu04/06/24 at 0245, Administer over 30 Minutes, 100 mL, Reason for Anti-Infec tive: Documented Infection, Documented Infection Site: Skin / Soft Tissue, Duration of Therapy: Once (ED) [facility] insulin regular human (HUMULIN R) injection 10 Units 04-06 07:30: 00 04-06 07:34 :00 No 10U 10 Units, Slow IV Push, ONCE, 1 dose, On Thu04/06/24 at 0230, STAT, Indication for insulin: Hyperglyce [facility] furosemide (LASIX) injection 40 mg 04-06 07:00: 00 04-06 06:59 :00 No 40mg 40 mg, IV Push, ONCE, 1 dose, On Thu04/06/24 at 0200, [facility] gabapentin (NEURONTIN) capsule 300 mg 04-06 07:00: 00 04-06 06:57 :00 No 300mg 300 mg, Oral, ONCE, 1 dose, On Thu04/06/24 at 0200, [facility] gabapentin (NEURONTIN) 100 mg capsule 04-06 00:00: 00 08-25 00:00 :00 No [id number] 100mg Take 1 capsule by mouth in the morning and 1 capsule at noon and 1 capsule in the evening. [facility] furosemide 20 mg tablet 04-06 00:00: 00 07-01 00:00 :00 No [id number] 20mg Take 1 tablet by mouth every morning. [facility] cephALEXin 500 mg capsule 04-06 00:00: 00 07-01 00:00 :00 No [id number] 500mg Take 1 capsule by mouth 4 (four) times daily. [facility] mupirocin 2 % ointment 04-06 00:00: 00 07-01 00:00 :00 No [id number] Apply to area(s) 3 (three) times daily. [facility] NaCl 0.9% (NS) bolus infusion 500 mL 04-03 21:15: 00 04-03 22:05 :00 No 500mL at 999 mL/hr, 500 mL, IV Infusion, ONCE, 1 dose, On 04/03/24 at 1615, [facility] magnesium sulfate in water 2 gram/50 mL (4 %) infusion 2 g 04-03 17:45: 00 04-03 19:00 :00 No 2g 2 g, IV Piggyback, Administer over 60 Minutes, ONCE, 1 dose, On 04/03/24 at 1245, Routine [facility] NaCl 0.9% (NS) bolus infusion 500 mL 04-03 16:00: 00 04-03 16:30 :00 No 500mL at 999 mL/hr, 500 mL, IV Infusion, ONCE, 1 dose, On Thu04/03/24 at 1100, RICHARD [facility] acetaminoph en (TYLENOL) tablet 650 mg 04-03 15:15: 00 04-03 15:46 :00 No 650mg 650 mg, Oral, ONCE, 1 dose, On Thu04/03/24 at 1015, RICHARD [facility] piperacilli n-tazobacta m (ZOSYN) 3.375 g in NaCl 0.9% (NS) 100 mL VIAL-MATE 04-03 15:15: 00 04-03 16:19 :00 No 3.375g 3.375 g, IV Piggyback, ONCE, 1 dose, On Sun 24 at 1015, Administer over 30 Minutes, 100 mL, Reason for Anti-Infec tive: Documented Infection, Documented Infection Site: Skin / Soft Tissue, Duration of Therapy: Once (ED) [facility] doxycycline hyclate 100 mg capsule 04-03 00:00: 00 07-01 00:00 :00 No [id number] 100mg Take 1 capsule by mouth in the morning and 1 capsule in the evening. [facility] insulin regular human (HUMULIN R) injection 10 Units 03-31 21:45: 00 03-31 23:18 :00 No 10U 10 Units, Slow IV Push, ONCE, 1 dose, On Thu03/31/24 at 1645, STAT, Indication for insulin: Hyperglyce [facility] acetaminoph en (TYLENOL) tablet 650 mg 03-29 21:15: 00 03-29 22:29 :00 No 650mg 650 mg, Oral, ONCE, 1 dose, On Thu03/29/24 at 1615, RICHARD [facility] NaCl 0.9% (NS) bolus infusion 500 mL 03-22 16:30: 00 03-22 21:50 :00 No 500mL at 999 mL/hr, 500 mL, IV Infusion, ONCE, 1 dose, On Thu03/22/24 at 1130, RICHARD [facility] NaCl 0.9% (NS) bolus infusion 1,000 mL 03-12 03:30: 00 03-12 04:43 :00 No 1000mL at 999 mL/hr, 1,000 mL, IV Infusion, ONCE, 1 dose, On Thu03/11/24 at 2230, STAT [facility] insulin regular human (HUMULIN R) injection 10 Units 03-12 03:30: 00 03-12 02:40 :00 No 10U 10 Units, IV Push, ONCE, 1 dose, On Thu03/11/24 at 2230, RICHARD
In dication for insulin: Hyperglyce [facility] NaCl 0.9% (NS) bolus infusion 1,000 mL 03-12 02:45: 00 03-12 03:00 :00 No 1000mL at 999 mL/hr, 1,000 mL, IV Infusion, ONCE, 1 dose, On Thu03/11/24 at 2145, STAT [facility] meclizine (TRAVEL-EAS E (MECLIZINE) ) tablet 25 mg 02-09 17:15: 00 02-09 17:17 :00 No 25mg 25 mg, Oral, ONCE, 1 dose, On Thu02/10/24 at 1215, RICHARD [facility] ketorolac (TORADOL) injection 15 mg 02-08 20:00: 00 02-08 20:42 :00 No 15mg 15 mg, Intramuscu lar, ONCE, 1 dose, On Thu02/09/24 at 1500, Routine [facility] methocarbam oL (ROBAXIN) tablet 1,000 mg 02-08 19:15: 00 02-08 20:43 :00 No 1000mg 1,000 mg, Oral, ONCE, 1 dose, On Thu02/09/24 at 1415, RICHARD [facility] cyclobenzap rine (FLEXERIL) tablet 10 mg 02-05 15:30: 00 02-05 15:14 :00 No 10mg 10 mg, Oral, ONCE, 1 dose, On 02/06/24 at 1030, Routine [facility] cyclobenzap rine 10 mg tablet 02-05 00:00: 00 02-11 04:59 :00 No [id number] 10mg Take 1 tablet by mouth in the morning and 1 tablet at noon and 1 tablet in the evening. Do all this for 15 doses. [facility] dicyclomine (BENTYL) tablet 20 mg 01-29 20:45: 00 01-29 20:51 :00 No 20mg 20 mg, Oral, ONCE, 1 dose, On 01/30/24 at 1445, RICHARD [facility] methocarbam oL (ROBAXIN) tablet 1,000 mg 01-29 19:15: 00 01-29 19:06 :00 No 1000mg 1,000 mg, Oral, ONCE, 1 dose, On 01/30/24 at 1315, RICHARD [facility] ketorolac (TORADOL) tablet 10 mg 01-29 17:45: 00 01-29 17:01 :00 No 10mg 10 mg, Oral, ONCE, 1 dose, On 01/30/24 at 1145, Routine [facility] tiZANidine 4 mg tablet 01-29 00:00: 00 08-25 00:00 :00 No [id number] 4mg Take 1 tablet by mouth every 6 (six) hours as needed for Pain (scale 7-10). [facility] dicyclomine 20 mg tablet 01-29 00:00: 00 07-01 00:00 :00 No [id number] 20mg Take 1 tablet by mouth 4 (four) times daily as needed for Abdominal pain. [facility] ibuprofen (IBU) tablet 600 mg 01-15 03:30: 00 01-15 03:42 :00 No 600mg 600 mg, Oral, ONCE, 1 dose, On Sheree 01/14/24 at 2130, RICHARD [facility] methocarbam oL (ROBAXIN) tablet 750 mg 01-15 03:26: 00 01-15 03:42 :00 No 750mg 750 mg, Oral, ONCE NOW, 1 dose, On Sheree 01/14/24 at 2130, RICHARD [facility] LISINOPRIL- HYDROCHLORO THIAZIDE 10-12.5 mg per tablet 02-17 00:00: 00 08-25 00:00 :00 No [id number] Take 1 tablet by mouth once daily [facility] blood sugar diagnostic (TRUE METRIX GLUCOSE TEST STRIP) strip 2020-11 00:00: 00 Yes [id number] Monitor Blood Glucose daily [facility] lancets (TRUEPLUS LANCETS) 33 gauge Misc 2020-11 00:00: 00 Yes [id number] Monitor Blood Glucose daily [facility] Alcohol Swabs (BD SINGLE USE SWABS REGULAR) PadM 2020-11 00:00: 00 Yes [id number] Apply to area(s) daily. Monitor Blood Glucose daily [facility] blood sugar diagnostic (TRUE METRIX GLUCOSE TEST STRIP) strip 2020-11 00:00: 00 Yes [id number] Monitor Blood Glucose daily [facility] lancets (TRUEPLUS LANCETS) 33 gauge [facility] 2020-11 00:00: 00 Yes [id number] Monitor Blood Glucose daily [facility] simvastatin 40 mg tablet 2020-11 00:00: 00 08-25 00:00 :00 No [id number] 40mg Take 1 tablet by mouth at bedtime. [facility] furosemide 20 mg tablet 2020-11 00:00: 00 08-25 00:00 :00 No [id number] 20mg Take 1 tablet by mouth daily. [facility] SIMVASTATIN 40 mg tablet 2020-11 00:00: 00 Yes [id number] 40mg TAKE 1 TABLET BY MOUTH AT BEDTIME [facility] furosemide 20 mg tablet 07-10 00:00: 00 Yes [id number] 20mg Take 1 tablet by mouth every Thursday, and Thursday in the evening. [facility] metFORMIN 1,000 mg tablet 07-10 00:00: 00 08-25 00:00 :00 No [id number] 1000mg Take 1 tablet by mouth 2 (two) times daily with meals. [facility] insulin NPH (HUMULIN N NPH U-100 INSULIN) 100 unit/mL injection 07-10 00:00: 00 07-01 00:00 :00 No [id number] INJECT 35 UNITS SUBCUTANEO USLY EVERY MORNING AND EVENING. Office visit needed for further refills. [facility] lisinopriL- hydrochloro thiazide 10-12.5 mg per tablet 07-10 00:00: 00 02-17 00:00 :00 No [id number] 1{tbl} Take 1 tablet by mouth daily. [facility] simvastatin (ZOCOR) 40 mg tablet 07-10 00:00: 00 10-04 00:00 :00 No [id number] 40mg Take 1 tablet by mouth at bedtime. [facility] insulin NPH (HUMULIN N NPH U-100 INSULIN) 100 unit/mL injection 06-19 00:00: 00 07-10 00:00 :00 No [id number] INJECT 35 UNITS SUBCUTANEO USLY EVERY MORNING AND EVENING. Office visit needed for further refills. [facility] HUMULIN N NPH U-100 INSULIN 100 unit/mL injection 05-21 00:00: 00 Yes [id number] INJECT 35 UNITS SUBCUTANEO USLY IN THE MORNING AND IN THE EVENING [facility] furosemide 20 mg tablet 02-15 00:00: 00 07-10 00:00 :00 No [id number] 20mg Take 1 tablet by mouth every Thursday, and Thursday in the evening. [facility] sildenafiL 50 mg tablet 02-14 00:00: 00 07-01 00:00 :00 No [id number] 50mg Take 1 tablet by mouth as needed (Erectile dysfunctio n). Take 50mg x 1, about 30 mins - 4 hours prior to sexual activity. [facility] insulin NPH (HUMULIN N NPH U-100 INSULIN) 100 unit/mL injection 02-14 00:00: 00 05-21 00:00 :00 No [id number] INJECT 35 UNITS SUBCUTANEO USLY IN THE MORNING AND IN THE EVENING [facility] HUMULIN N NPH U-100 INSULIN 100 unit/mL injection 02-10 00:00: 00 02-14 00:00 :00 No [id number] INJECT 35 UNITS SUBCUTANEO USLY IN THE MORNING AND IN THE EVENING [facility] [employer] Misc 02-06 00:00: 00 Yes [id number] E11.8: dispense Insulin Syringe 31 gauge brand covered by insurance. Monitor Blood Sugar at Home BID [facility] Mis 317 00:00: 00 07-01 00:00 :00 No [id number] E11.8: dispense Insulin Syringe 31 gauge brand covered by insurance. Monitor Blood Sugar at Home BID [facility] Insulin Syringe-Nee dle U-100 1 mL 27 gauge x 1/2" Syrg 3- 00:00: 00 Yes [id number] Use as directed [facility] Insulin Syringe-Nee dle U-100 1 mL 27 gauge x 1/2" Syrg 3- 00:00: 00 Yes [id number] Use as directed [facility] Insulin Syringe-Nee dle U-100 1 mL 27 gauge x 1/2" Syrg 3- 00:00: 00 Yes [id number] [facility] as [facility] [place], Disposable, (PHUC PEN NEEDLE) 32 gauge x 5/32" Ndle 3- 00:00: 00 Yes [id number] Use as directed [facility] Insulin [place], Disposable, (PHUC PEN NEEDLE) 32 gauge x 5/32" Ndle 3- 00:00: 00 Yes [id number] Use as directed [facility] [place], Disposable, (PHUC PEN NEEDLE) 32 gauge x 5/32" Ndle 3- 00:00: 00 Yes [id number] Use as directed [facility] [place], Disposable, (PHUC PEN NEEDLE) 32 gauge x 5/32" Ndle 07-09 00:00: 00 Yes [id number] Use as directed [facility] aspirin 81 mg EC tablet 07-09 00:00: 00 08-25 00:00 :00 No [id number] 81mg Take 1 tablet by mouth daily. [facility] potassium chloride 10 mEq CR tablet 07-09 00:00: 08-23 00:00 :00 No [id number] 10meq Take 1 tablet by mouth every Thursday, and Thursday in the evening. [facility] lisinopril 10 mg tablet 07-09 00:00: 07-10 00:00 :00 No [id number] 10mg Take 1 tablet by mouth daily. [facility] simvastatin (ZOCOR) 40 mg tablet 07-09 00:00: 07-10 00:00 :00 No [id number] 40mg Take 1 tablet by mouth at bedtime. [facility] metFORMIN 1,000 mg tablet 07-09 00:00: 00 07-10 00:00 :00 No [id number] 1000mg Take 1 tablet by mouth 2 (two) times daily with meals. [facility] furosemide 20 mg tablet 07-09 00:00: 00 02-14 00:00 :00 No [id number] 20mg Take 1 tablet by mouth every Thursday, and Thursday in the evening. [facility] insulin NPH 100 unit/mL injection 07-09 00:00: 00 02-10 00:00 :00 No [id number] 35U inject 35 Units under the skin every morning and evening. [facility] potassium chloride 10 mEq CR tablet 04-13 00:00: 00 07-09 00:00 :00 No [id number] 10meq Take 1 tablet by mouth every Thursday, and Thursday in the evening. [facility] furosemide 20 mg tablet 04-13 00:00: 00 07-09 00:00 :00 No [id number] 20mg Take 1 tablet by mouth every Thursday, and Thursday in the evening. [facility] doxycycline hyclate 100 mg tablet 04-12 00:00: 00 07-09 00:00 :00 No [id number] 100mg Take 1 tablet by mouth 2 (two) times daily. [facility] diph,pertus (acel),teta nus (ADACEL) injection 0.5 mL 4-20 14:00: 00 03-13 01:59 :00 No .5mL 0.5 mL, Intramuscu lar, ONCE, 1 dose, 03/12/20 at 0900, Routine [facility] clindamycin 300 mg capsule 03-12 00:00: 00 03-23 04:59 :00 No [id number] 300mg Take 1 capsule by mouth 4 (four) times daily for 10 days. [facility] sildenafil 50 mg tablet 02-27 00:00: 00 02-14 00:00 :00 No [id number] 50mg Take 1 tablet by mouth as needed (Erectile dysfunctio n). Take 50mg x 1, about 30 mins - 4 hours prior to sexual activity. [facility] metFORMIN 1,000 mg tablet 01-18 00:00: 00 07-09 00:00 :00 No [id number] 1000mg Take 1 tablet by mouth 2 (two) times daily with meals. [facility] ondansetron (ZOFRAN (PF)) injection 4 mg 12-30 17:29: 59 Yes 4mg 4 mg, Slow IV Push, PRN, 1 dose, Starting Thu12/30/19 at 1129, Until Discontinu ed, Routine, Nausea and Vomiting (N/V), PACU [facility] water for irrigation irrigation solution 12-30 16:20: 00 Yes PRN, Starting Thu12/30/19 at 1020, Until Discontinu ed, Routine, Intra-op [facility] simethicone (GAS RELIEF (SIMETHICON E)) 40 mg/0.6 mL drops 12-30 16:19: 00 Yes PRN, Starting Thu12/30/19 at 1019, Until Discontinu ed, Routine, Intra-op [facility] NaCl 0.9% (NS) IV infusion 1,000 mL 12-30 13:45: 00 Yes 1000mL at 42 mL/hr, IV Infusion, CONTINUOUS , Starting Thu12/30/19 at 0745, Until Discontinu ed, Routine, DSU Pre-op [facility] peg-electro lyte soln [id number] .74 -5.86 gram solution 11-30 00:00: 00 07-01 00:00 :00 No Take as directed [facility] prednisoLON E acetate 1 % ophthalmic suspension drops 2018-11 00:00: 00 Yes [id number] 1[drp] Place 1 Drop in right eye 4 (four) times daily. [facility] ofloxacin (OCUFLOX) 0.3 % ophthalmic solution 2018-11 00:00: 00 Yes [id number] 1[drp] Place 1 Drop in right eye 3 (three) times daily. [facility] aspirin 81 mg EC tablet 2018-11 00:00: 00 07-09 00:00 :00 No [id number] 81mg Take 1 tablet by mouth daily. [facility] Insulin [place], Disposable, (PHUC PEN NEEDLE) 32 gauge x 5/32" Ndle 2018-11 00:00: 00 07-09 00:00 :00 No [id number] Use as directed [facility] lactobacill us comb no.10 (PROBIOTIC) 20 billion cell Cap 06-10 00:00: 00 07-09 00:00 :00 No [id number] 1{capsu le} Take 1 capsule by mouth 2 (two) times daily. [facility] simvastatin (ZOCOR) 40 mg tablet 05-30 00:00: 00 07-09 00:00 :00 No [id number] 40mg Take 1 tablet by mouth at bedtime. [facility] lisinopril 10 mg tablet 05-30 00:00: 00 07-09 00:00 :00 No [id number] 10mg Take 1 tablet by mouth daily. [facility] insulin NPH 100 unit/mL injection 05-30 00:00: 00 07-09 00:00 :00 No [id number] 35U inject 35 Units under the skin every morning and evening. [facility] metFORMIN 500 mg tablet 05-30 00:00: 00 01-18 00:00 :00 No [id number] 500mg Take 1 tablet by mouth 2 (two) times daily with meals. [facility] Immunizations Ordered Immunization Name Filled Immunization Name Date Status Comments Source TD Pres-Free 2024-12-28 00:00:00 Completed [facility] TDAP 2024-07-04 00:00:00 Completed [facility] TDAP 2024-04-11 00:00:00 Completed [facility] TDAP 2024-04-06 01:32:00 Completed [facility] TDAP 2024-04-04 00:00:00 Completed [facility] TDAP 2024-04-03 09:43:00 Completed [facility] Vital Signs Vital Name Observation Time Observation Value Comments S ource Systolic blood pressure 2025-05-30 15:55:00 144 mm[Hg] [facility] Diastolic blood pressure 2025-05-30 15:55:00 67 mm[Hg] [facility] Heart rate 2025-05-30 15:55:00 57 /min [facility] Body temperature 2025-05-30 15:55:00 36.56 [facility] Respiratory rate 2025-05-30 15:55:00 19 /min [facility] Oxygen saturation in Arterial blood by Pulse oximetry 2025-05-30 15:55:00 93 /min [facility] Body height 2025-05-30 09:15:00 177.8 cm [facility] Body weight 2025-05-30 09:15:00 94.983 kg [facility] BMI 2025-05-30 09:15:00 30.05 kg/m2 [facility] Systolic blood pressure 2025-05-11 20:41:00 123 mm[Hg] [facility] Diastolic blood pressure 2025-05-11 20:41:00 63 mm[Hg] [facility] Heart rate 2025-05-11 20:41:00 79 /min [facility] Body temperature 2025-05-11 20:41:00 36.78 [facility] Respiratory rate 2025-05-11 20:41:00 18 /min [facility] Body height 2025-05-11 20:41:00 177.8 cm [facility] Body weight 2025-05-11 20:41:00 94.348 kg [facility] BMI 2025-05-11 20:41:00 29.84 kg/m2 [facility] Oxygen saturation in Arterial blood by Pulse oximetry 2025-05-11 20:41:00 100 /min [facility] Systolic blood pressure 2025-04-28 20:57:00 121 mm[Hg] [facility] Diastolic blood pressure 2025-04-28 20:57:00 60 mm[Hg] [facility] Heart rate 2025-04-28 20:57:00 60 /min [facility] Body temperature 2025-04-28 20:57:00 36.28 [facility] Respiratory rate 2025-04-28 20:57:00 16 /min [facility] Oxygen saturation in Arterial blood by Pulse oximetry 2025-04-28 20:57:00 98 /min [facility] Body weight 2025-04-28 08:38:00 94.484 kg [facility] BMI 2025-04-28 08:38:00 29.89 kg/m2 [facility] Body height 2025-04-26 03:05:00 177.8 cm [facility] Systolic blood pressure 2025-04-20 13:44:00 130 mm[Hg] [facility] Diastolic blood pressure 2025-04-20 13:44:00 61 mm[Hg] [facility] Heart rate 2025-04-20 13:44:00 61 /min [facility] Body temperature 2025-04-20 13:44:00 36.56 [facility] Respiratory rate 2025-04-20 13:44:00 22 /min [facility] Oxygen saturation in Arterial blood by Pulse oximetry 2025-04-20 13:44:00 96 /min [facility] Body height 2025-04-20 11:24:00 177.8 cm [facility] Body weight 2025-04-20 11:24:00 90.719 kg [facility] BMI 2025-04-20 11:24:00 28.70 kg/m2 [facility] Heart rate 2025-04-13 08:16:43 55 /min [facility] Respiratory rate 2025-04-13 08:16:43 18 /min [facility] Oxygen saturation in Arterial blood by Pulse oximetry 2025-04-13 08:16:43 98 /min [facility] Systolic blood pressure 2025-04-13 08:16:39 108 mm[Hg] [facility] Diastolic blood pressure 2025-04-13 08:16:39 76 mm[Hg] [facility] Body temperature 2025-04-13 08:16:18 37 [facility] Body height 2025-04-10 12:00:00 180.3 cm [facility] Body weight 2025-04-10 12:00:00 90.719 kg [facility] BMI 2025-04-10 12:00:00 27.89 kg/m2 [facility] Heart rate 2025-04-13 08:16:43 55 /min [facility] Respiratory rate 2025-04-13 08:16:43 18 /min [facility] O[facility] saturation in Arterial blood by Pulse oximetry 2025-04-13 08:16:43 98 /min [facility] Systolic blood pressure 2025-04-13 08:16:39 108 mm[Hg] [facility] Diastolic blood pressure 2025-04-13 08:16:39 76 mm[Hg] [facility] Body temperature 2025-04-13 08:16:18 37 [facility] Body height 2025-04-10 12:00:00 180.3 cm [facility] Body weight 2025-04-10 12:00:00 90.719 kg [facility] BMI 2025-04-10 12:00:00 27.89 kg/m2 [facility] Systolic blood pressure 2025-04-04 10:30:00 176 mm[Hg] [facility] Diastolic blood pressure 2025-04-04 10:30:00 92 mm[Hg] [facility] Heart rate 2025-04-04 10:30:00 63 /min [facility] Respiratory rate 2025-04-04 10:30:00 16 /min [facility] Oxygen saturation in Arterial blood by Pulse oximetry 2025-04-04 10:30:00 100 /min [facility] Body temperature 2025-04-04 08:57:00 36.78 [facility] Body height 2025-04-04 07:42:00 177.8 cm [facility]iel [facility]yl [facility] Body weight 2025-04-04 07:42:00 90.719 kg [facility] BMI 2025-04-04 07:42:00 28.70 kg/m2 [facility] Systolic blood pressure 2025-04-04 10:30:00 176 mm[Hg] H[facility] Callahan [facility] Diastolic blood pressure 2025-04-04 10:30:00 92 mm[Hg] [facility] Heart rate 2025-04-04 10:30:00 63 /min [facility] Respiratory rate 2025-04-04 10:30:00 16 /min [facility] Oxygen saturation in Arterial blood by Pulse oximetry 2025-04-04 10:30:00 100 /min [facility] Body temperature 2025-04-04 08:57:00 36.78 [facility] Body height 2025-04-04 07:42:00 177.8 cm [facility] Body weight 2025-04-04 07:42:00 90.719 kg [facility] BMI 2025-04-04 07:42:00 28.70 kg/m2 [facility] Systolic blood pressure 2024-12-28 13:00:00 172 mm[Hg] [place] [facility] Diastolic blood pressure 2024-12-28 13:00:00 90 mm[Hg] [place] [facility] Heart rate 2024-12-28 13:00:00 66 /min [facility] Respiratory rate 2024-12-28 13:00:00 13 /min [facility] Oxygen saturation in Arterial blood by Pulse oximetry 2024-12-28 13:00:00 96 /min [facility] Body temperature 2024-12-28 12:23:00 36.83 [facility] Body height 2024-12-28 12:23:00 177.8 cm [facility] Body weight 2024-12-28 12:23:00 90.719 kg [facility] BMI 2024-12-28 12:23:00 28.70 kg/m2 [facility] Systolic blood pressure 2024-12-21 17:18:00 130 mm[Hg] [facility] Diastolic blood pressure 2024-12-21 17:18:00 81 mm[Hg] [facility] Heart rate 2024-12-21 17:18:00 81 /min [facility] Body temperature 2024-12-21 17:18:00 36.61 [facility] Respiratory rate 2024-12-21 17:18:00 19 /min [facility] Body height 2024-12-21 17:18:00 177.8 cm [facility] Body weight 2024-12-21 17:18:00 81.647 kg [facility] BMI 2024-12-21 17:18:00 25.83 kg/m2 [facility] Oxygen saturation in Arterial blood by Pulse oximetry 2024-12-21 17:18:00 100 /min [facility] Systolic blood pressure 2024-08-25 16:38:00 116 mm[Hg] [facility] Diastolic blood pressure 2024-08-25 16:38:00 66 mm[Hg] [facility] Heart rate 2024-08-25 16:38:00 67 /min [facility] Body temperature 2024-08-25 16:38:00 36.11 [facility] Respiratory rate 2024-08-25 16:38:00 13 /min [facility] Oxygen saturation in Arterial blood by Pulse oximetry 2024-08-25 16:38:00 99 /min [facility] Body weight 2024-08-25 09:00:00 90.6 kg [facility] BMI 2024-08-25 09:00:00 28.66 kg/m2 [facility] Body height 2024-08-23 20:19:00 177.8 cm [facility] Systolic blood pressure 2024-07-01 21:13:00 118 mm[Hg] [facility] Diastolic blood pressure 2024-07-01 21:13:00 65 mm[Hg] [facility] Heart rate 2024-07-01 21:13:00 63 /min [facility] Body temperature 2024-07-01 21:13:00 36.44 [facility] Respiratory rate 2024-07-01 21:13:00 16 /min [facility] Oxygen saturation in Arterial blood by Pulse oximetry 2024-07-01 21:13:00 99 /min [facility] Body weight 2024-07-01 08:26:00 89.994 kg [facility] BMI 2024-07-01 08:26:00 28.47 kg/m2 [facility] Body height 2024-06-23 21:39:00 177.8 cm [facility] Systolic blood pressure 2024-06-20 17:47:00 165 mm[Hg] [facility] Diastolic blood pressure 2024-06-20 17:47:00 83 mm[Hg] [facility] Heart rate 2024-06-20 17:47:00 81 /min [facility] Body temperature 2024-06-20 17:47:00 37 [facility] Respiratory rate 2024-06-20 17:47:00 16 /min [facility] Oxygen saturation in Arterial blood by Pulse oximetry 2024-06-20 17:47:00 99 /min [facility] Body height 2024-06-20 15:58:00 177.8 cm [facility] Body weight 2024-06-20 15:58:00 91.627 kg [facility] BMI 2024-06-20 15:58:00 28.98 kg/m2 [facility] Systolic blood pressure 2024-06-19 21:30:00 138 mm[Hg] [facility] Diastolic blood pressure 2024-06-19 21:30:00 71 mm[Hg] [facility] Heart rate 2024-06-19 21:30:00 78 /min [facility] Respiratory rate 2024-06-19 21:30:00 17 /min [facility] Oxygen saturation in Arterial blood by Pulse oximetry 2024-06-19 21:30:00 95 /min [facility] Body temperature 2024-06-19 17:34:00 36.72 [facility] Body height 2024-06-19 17:34:00 177.8 cm [facility] Body weight 2024-06-19 17:34:00 99.791 kg [facility] BMI 2024-06-19 17:34:00 31.57 kg/m2 [facility] Heart rate 2024-06-17 00:43:00 70 /min [facility] Respiratory rate 2024-06-17 00:43:00 17 /min [facility] Oxygen saturation in Arterial blood by Pulse oximetry 2024-06-17 00:43:00 97 /min [facility] Systolic blood pressure 2024-06-17 00:42:00 132 mm[Hg] [facility] Diastolic blood pressure 2024-06-17 00:42:00 76 mm[Hg] [facility] Body temperature 2024-06-17 00:42:00 36.44 [facility] Body height 2024-06-16 23:12:00 177.8 cm [facility] Body weight 2024-06-16 23:12:00 99.791 kg [facility] BMI 2024-06-16 23:12:00 31.57 kg/m2 [facility] Heart rate 2024-06-16 04:09:00 62 /min [facility] Body temperature 2024-06-16 04:09:00 36.83 [facility] Respiratory rate 2024-06-16 04:09:00 13 /min [facility] Oxygen saturation in Arterial blood by Pulse oximetry 2024-06-16 04:09:00 97 /min [facility] Systolic blood pressure 2024-06-16 04:00:00 157 mm[Hg] [facility] Diastolic blood pressure 2024-06-16 04:00:00 75 mm[Hg] [facility] Body height 2024-06-15 23:01:00 177.8 cm [facility] Body weight 2024-06-15 23:01:00 99.791 kg [facility] BMI 2024-06-15 23:01:00 31.57 kg/m2 [facility] Heart rate 2024-04-06 10:11:00 72 /min [facility] Body temperature 2024-04-06 10:11:00 36.89 [facility] Respiratory rate 2024-04-06 10:11:00 16 /min [facility] Oxygen saturation in Arterial blood by Pulse oximetry 2024-04-06 10:11:00 99 /min [facility] Systolic blood pressure 2024-04-06 10:00:00 130 mm[Hg] [facility] Diastolic blood pressure 2024-04-06 10:00:00 74 mm[Hg] [facility] Body height 2024-04-06 06:52:00 177.8 cm [facility] Body weight 2024-04-06 06:52:00 99.791 kg [facility] BMI 2024-04-06 06:52:00 31.57 kg/m2 [facility] Systolic blood pressure 2024-04-03 21:45:00 164 mm[Hg] [facility] Diastolic blood pressure 2024-04-03 21:45:00 85 mm[Hg] [facility] Heart rate 2024-04-03 21:45:00 88 /min [facility] Respiratory rate 2024-04-03 21:45:00 16 /min [facility] Oxygen saturation in Arterial blood by Pulse oximetry 2024-04-03 21:45:00 96 /min [facility] Body temperature 2024-04-03 14:41:00 36.5 [facility] Systolic blood pressure 2024-04-01 00:04:00 132 mm[Hg] [facility] Diastolic blood pressure 2024-04-01 00:04:00 73 mm[Hg] [facility] Heart rate 2024-04-01 00:04:00 76 /min [facility] Respiratory rate 2024-04-01 00:04:00 18 /min [facility] Oxygen saturation in Arterial blood by Pulse oximetry 2024-04-01 00:04:00 98 /min [facility] Body height 2024-03-31 23:15:00 177.8 cm [facility] Body temperature 2024-03-31 17:35:00 36.72 [facility] Body weight 2024-03-31 17:35:00 99.791 kg [facility] BMI 2024-03-31 17:35:00 31.57 kg/m2 [facility] Systolic blood pressure 2024-03-29 21:38:00 135 mm[Hg] [facility] Diastolic blood pressure 2024-03-29 21:38:00 74 mm[Hg] [facility] Heart rate 2024-03-29 21:38:00 66 /min [facility] Body temperature 2024-03-29 21:38:00 36.72 [facility] Respiratory rate 2024-03-29 21:38:00 18 /min [facility] Oxygen saturation in Arterial blood by Pulse oximetry 2024-03-29 21:38:00 99 /min [facility] Body weight 2024-03-29 19:47:00 99.791 kg [facility] BMI 2024-03-29 19:47:00 31.57 kg/m2 [facility] Systolic blood pressure 2024-03-22 21:30:00 175 mm[Hg] [facility] Diastolic blood pressure 2024-03-22 21:30:00 90 mm[Hg] [facility] Heart rate 2024-03-22 21:30:00 84 /min [facility] Respiratory rate 2024-03-22 21:30:00 16 /min [facility] Oxygen saturation in Arterial blood by Pulse oximetry 2024-03-22 21:30:00 100 /min [facility] Body temperature 2024-03-22 14:55:00 36.94 [facility] Systolic blood pressure 2024-03-12 04:00:00 155 mm[Hg] [facility] Diastolic blood pressure 2024-03-12 04:00:00 103 mm[Hg] [facility] Heart rate 2024-03-12 04:00:00 92 /min [facility] Respiratory rate 2024-03-12 04:00:00 18 /min [facility] Oxygen saturation in Arterial blood by Pulse oximetry 2024-03-12 04:00:00 98 /min [facility] Body temperature 2024-03-12 01:17:00 37.33 [facility] Body height 2024-03-12 01:17:00 177.8 cm [facility] Body weight 2024-03-12 01:17:00 99.791 kg [facility] BMI 2024-03-12 01:17:00 31.57 kg/m2 [facility] Systolic blood pressure 2024-02-10 19:50:00 158 mm[Hg] [facility] Diastolic blood pressure 2024-02-10 19:50:00 87 mm[Hg] [facility] Heart rate 2024-02-10 19:50:00 86 /min [facility] Respiratory rate 2024-02-10 19:50:00 18 /min [facility] Oxygen saturation in Arterial blood by Pulse oximetry 2024-02-10 19:50:00 96 /min [facility] Body temperature 2024-02-10 16:57:00 36.72 [facility] Body height 2024-02-10 16:57:00 177.8 cm [facility] Body weight 2024-02-10 16:57:00 99.791 kg [facility] BMI 2024-02-10 16:57:00 31.57 kg/m2 [facility] Systolic blood pressure 2024-02-09 22:00:00 143 mm[Hg] [facility] Diastolic blood pressure 2024-02-09 22:00:00 76 mm[Hg] [facility] Heart rate 2024-02-09 22:00:00 83 /min [facility] Respiratory rate 2024-02-09 22:00:00 16 /min [facility] Oxygen saturation in Arterial blood by Pulse oximetry 2024-02-09 22:00:00 100 /min [facility] Body temperature 2024-02-09 19:02:00 35.94 [facility] Body height 2024-02-09 19:02:00 177.8 cm [facility] Body weight 2024-02-09 19:02:00 99.791 kg [facility] BMI 2024-02-09 19:02:00 31.57 kg/m2 [facility] Systolic blood pressure 2024-02-06 14:26:00 163 mm[Hg] [facility] Diastolic blood pressure 2024-02-06 14:26:00 77 mm[Hg] [facility] Heart rate 2024-02-06 14:26:00 71 /min [facility] Body temperature 2024-02-06 14:26:00 36.61 [facility] Respiratory rate 2024-02-06 14:26:00 16 /min [facility] Body height 2024-02-06 14:26:00 165.1 cm [facility] Body weight 2024-02-06 14:26:00 99.791 kg [facility] BMI 2024-02-06 14:26:00 36.61 kg/m2 [facility] Oxygen saturation in Arterial blood by Pulse oximetry 2024-02-06 14:26:00 98 /min [facility] Systolic blood pressure 2024-01-30 16:05:00 150 mm[Hg] [facility] Diastolic blood pressure 2024-01-30 16:05:00 89 mm[Hg] [facility] Heart rate 2024-01-30 16:05:00 71 /min [facility] Body temperature 2024-01-30 16:05:00 37 [facility] Respiratory rate 2024-01-30 16:05:00 18 /min [facility] Body height 2024-01-30 16:05:00 177.8 cm [facility] Body weight 2024-01-30 16:05:00 100.699 kg [facility] BMI 2024-01-30 16:05:00 31.85 kg/m2 [facility] Oxygen saturation in Arterial blood by Pulse oximetry 2024-01-30 16:05:00 99 /min [facility] Systolic blood pressure 2024-01-15 03:18:00 150 mm[Hg] [facility] Diastolic blood pressure 2024-01-15 03:18:00 75 mm[Hg] [facility] Heart rate 2024-01-15 03:18:00 79 /min [facility] Body temperature 2024-01-15 03:18:00 36.5 [facility] Respiratory rate 2024-01-15 03:18:00 18 /min [facility] Body height 2024-01-15 03:18:00 177.8 cm [facility] Body weight 2024-01-15 03:18:00 99.791 kg [facility] BMI 2024-01-15 03:18:00 31.57 kg/m2 [facility] Oxygen saturation in Arterial blood by Pulse oximetry 2024-01-15 03:18:00 98 /min [facility] Systolic blood pressure 2024-01-05 12:37:00 161 mm[Hg] [facility] Diastolic blood pressure 2024-01-05 12:37:00 76 mm[Hg] [facility] Heart rate 2024-01-05 12:37:00 76 /min [facility] Body temperature 2024-01-05 12:37:00 36.89 [facility] Respiratory rate 2024-01-05 12:37:00 18 /min [facility] Body height 2024-01-05 12:37:00 177.8 cm [facility] Body weight 2024-01-05 12:37:00 99.791 kg [facility] BMI 2024-01-05 12:37:00 31.57 kg/m2 [facility] [facility] in Arterial blood by Pulse oximetry 2024-01-05 12:37:00 96 /min [facility] Systolic blood pressure 2021-07-10 22:35:00 173 mm[Hg] [facility] Diastolic blood pressure 2021-07-10 22:35:00 71 mm[Hg] [facility] Heart rate 2021-07-10 22:35:00 50 /min [facility] Body height 2021-07-10 22:35:00 177.8 cm [facility] Body weight 2021-07-10 22:35:00 114.306 kg [facility] BMI 2021-07-10 22:35:00 36.16 kg/m2 [facility] Oxygen saturation in Arterial blood by Pulse oximetry 2021-07-10 22:35:00 99 /min [facility] Systolic blood pressure 2021-07-10 15:12:00 173 mm[Hg] [facility] Diastolic blood pressure 2021-07-10 15:12:00 71 mm[Hg] [facility] Heart rate 2021-07-10 15:10:00 50 /min [facility] Body height 2021-07-10 15:10:00 177.8 cm [facility] Body weight 2021-07-10 15:10:00 114.306 kg [facility] BMI 2021-07-10 15:10:00 36.16 kg/m2 [facility] Oxygen saturation in Arterial blood by Pulse oximetry 2021-07-10 15:10:00 99 /min [facility] Systolic blood pressure 2021-05-20 23:06:00 130 mm[Hg] [facility] Diastolic blood pressure 2021-05-20 23:06:00 76 mm[Hg] [facility] Heart rate 2021-05-20 23:05:00 67 /min [facility] Body temperature 2021-05-20 23:05:00 36.33 [facility] Respiratory rate 2021-05-20 23:05:00 18 /min [facility] Body height 2021-05-20 23:05:00 177.8 cm [facility] 2021-05-20 23:05:00 112.583 kg [facility] BMI 2021-05-20 23:05:00 35.61 kg/m2 [facility] Oxygen saturation in Arterial blood by Pulse oximetry 2021-05-20 23:05:00 97 /min [facility] Systolic blood pressure 2021-02-14 21:09:00 153 mm[Hg] [facility] Diastolic blood pressure 2021-02-14 21:09:00 76 mm[Hg] [facility] Heart rate 2021-02-14 21:09:00 58 /min [facility] Body temperature 2021-02-14 21:09:00 36.72 [facility] Respiratory rate 2021-02-14 21:09:00 18 /min [facility] Body weight 2021-02-14 21:09:00 115.667 kg [facility] BMI 2021-02-14 21:09:00 35.57 kg/m2 [facility] Oxygen saturation in Arterial blood by Pulse oximetry 2021-02-14 21:09:00 97 /min [facility] Systolic blood pressure 2020-04-12 14:51:00 126 mm[Hg] [facility] Diastolic blood pressure 2020-04-12 14:51:00 76 mm[Hg] [facility] Heart rate 2020-04-12 14:51:00 58 /min [facility] Body temperature 2020-04-12 14:51:00 36.72 [facility] Respiratory rate 2020-04-12 14:51:00 18 /min [facility] Body height 2020-04-12 14:51:00 180.3 cm [facility] Body weight 2020-04-12 14:51:00 113.399 kg [facility] BMI 2020-04-12 14:51:00 34.87 kg/m2 [facility] Oxygen saturation in Arterial blood by Pulse oximetry 2020-04-12 14:51:00 98 /min [facility] Systolic blood pressure 2020-03-12 13:30:00 115 mm[Hg] [facility] Diastolic blood pressure 2020-03-12 13:30:00 81 mm[Hg] [facility] Heart rate 2020-03-12 13:30:00 51 /min [facility] Respiratory rate 2020-03-12 13:30:00 20 /min [facility] Oxygen saturation in Arterial blood by Pulse oximetry 2020-03-12 13:30:00 97 /min [facility] Body temperature 2020-03-12 12:37:00 36.22 [facility] Body weight 2020-03-12 12:37:00 111.131 kg [facility] BMI 2020-03-12 12:37:00 34.17 kg/m2 [facility] Systolic blood pressure 2020-01-18 13:42:00 136 mm[Hg] [facility] Diastolic blood pressure 2020-01-18 13:42:00 73 mm[Hg] [facility] Heart rate 2020-01-18 13:42:00 52 /min [facility] Body temperature 2020-01-18 13:42:00 36.56 [facility] Respiratory rate 2020-01-18 13:42:00 18 /min [facility] Body height 2020-01-18 13:42:00 180.3 cm [facility] Body weight 2020-01-18 13:42:00 113.309 kg [facility] BMI 2020-01-18 13:42:00 34.84 kg/m2 [facility] Oxygen saturation in Arterial blood by Pulse oximetry 2020-01-18 13:42:00 96 /min [facility] Systolic blood pressure 2019-12-30 17:24:00 154 mm[Hg] [facility] Diastolic blood pressure 2019-12-30 17:24:00 79 mm[Hg] [facility] Heart rate 2019-12-30 17:24:00 60 /min [facility] Respiratory rate 2019-12-30 17:24:00 16 /min [facility] Oxygen saturation in Arterial blood by Pulse oximetry 2019-12-30 17:24:00 96 /min [facility] Body temperature 2019-12-30 16:55:00 36.39 [facility] Body height 2019-12-26 22:40:00 180.3 cm [facility] Body weight 2019-12-26 22:40:00 116.121 kg [facility] BMI 2019-12-26 22:40:00 35.72 kg/m2 [facility] Systolic blood pressure 2019-12-19 14:13:00 135 mm[Hg] [facility] Diastolic blood pressure 2019-12-19 14:13:00 72 mm[Hg] [facility] Heart rate 2019-12-19 14:11:00 56 /min [facility] Respiratory rate 2019-12-19 14:11:00 19 /min [facility] Body height 2019-12-19 14:11:00 180.3 cm [facility] Body weight 2019-12-19 14:11:00 117.935 kg [facility] BMI 2019-12-19 14:11:00 36.26 kg/m2 [facility] Oxygen saturation in Arterial blood by Pulse oximetry 2019-12-19 14:11:00 96 /min [facility] Systolic blood pressure 2024-06-28 16:55:00 117 mm[Hg] [facility] Diastolic blood pressure 2024-06-28 16:55:00 57 mm[Hg] [facility] Heart rate 2024-06-28 16:55:00 65 /min [facility] Body temperature 2024-06-28 16:55:00 36.5 [facility] Respiratory rate 2024-06-28 16:55:00 18 /min [facility] Oxygen saturation in Arterial blood by Pulse oximetry 2024-06-28 16:55:00 98 /min [place] [facility] Body weight 2024-06-28 09:42:00 89.495 kg [facility] BMI 2024-06-28 09:42:00 28.31 kg/m2 [facility] Body height 2024-06-23 21:39:00 177.8 cm [facility] Procedures Procedure Date / Time Performed Performing Clinician Source POCT GLUCOSE (AUTOMATED) 2025-05-30 02:15:00 Bruce Ricks [facility] POCT GLUCOSE (AUTOMATED) 2025-05-29 22:46:00 Edy Vigil [facility] POCT GLUCOSE (AUTOMATED) 2025-05-29 18:27:00 Edy Vigil [facility] POCT GLUCOSE (AUTOMATED) 2025-05-29 12:37:00 Hernandez Mcgowan [facility] URINALYSIS 2025-05-29 04:21:00 [facility] URINE CULTURE 2025-05-29 04:21:00 Ramón Roblero [facility] CT HEAD WO CONTRAST 2025-05-29 01:19:00 Alberto Roblero [facility] XR CHEST 1 VW 2025-05-29 00:31:41 Ramón Roblero [facility] TROPONIN I 2025-05-29 00:00:00 [facility] COMP. METABOLIC PANEL (50368) 2025-05-29 00:00:00 Ramón Roblero [facility] CBC WITH DIFF 2025-05-29 00:00:00 Ramón Roblero [facility] N-TERMINAL PRO-BNP 2025-05-29 00:00:00 Ramón Roblero [facility] POCT GLUCOSE (AUTOMATED) 2025-04-28 21:45:00 Lizet Garcia [facility] POCT GLUCOSE (AUTOMATED) 2025-04-28 17:25[facility]00 [facility] 2025-04-28 16:24:00 Lizet Garcia [facility] POCT GLUCOSE (AUTOMATED) 2025-04-28 12:49:00 Lizet Garcia [facility] POCT GLUCOSE (AUTOMATED) 2025-04-28 09:58:00 Lizet Garcia [facility] POCT GLUCOSE (AUTOMATED) 2025-04-28 05:41:00 Lizet Garcia [facility] POCT GLUCOSE (AUTOMATED) 2025-04-28 01:36:00 Lizet Garcia [facility] XR CHEST 1 VW 2025-04-28 01:20:04 Raj Garcia [facility] POCT GLUCOSE (AUTOMATED) 2025-04-27 21:37:00 Lizet Garcia [facility] POCT GLUCOSE (AUTOMATED) 2025-04-27 16:39:00 Lizet Garcia [facility] POCT GLUCOSE (AUTOMATED) 2025-04-27 12:55:00 Lizet Garcia [facility] POCT GLUCOSE (AUTOMATED) 2025-04-27 08:57:00 Lizet Garcia [facility] MAGNESIUM 2025-04-27 07:41:00 Raj Garcia [facility] BASIC METABOLIC PANEL (NA, K, CL, CO2, GLUCOSE, BUN, CREATININE, CA) 2025-04-27 07:41:00 Raj Garcia [facility] CBC WITH DIFF 2025-04-27 07:41:00 Raj Garcia [facility] POCT GLUCOSE (AUTOMATED) 2025-04-27 04:20:00 Lizet Garcia [facility] POCT GLUCOSE (AUTOMATED) 2025-04-27 00:59:00 Lizet Garcia [facility] POCT GLUCOSE (AUTOMATED) 2025-04-26 21:34:00 Lizet Garcia [facility] EKG (SCANNED DOCUMENTS) 2025-04-26 20:19:58 Doct or Unassigned, [facility] POCT GLUCOSE (AUTOMATED) 2025-04-26 16:52:00 Lizet Garcia [facility] POCT GLUCOSE (AUTOMATED) 2025-04-26 12:54:00 Lizet Garcia [facility] COMP. METABOLIC PANEL (44937) 2025-04-26 08:26:00 José Aparicio [facility] CBC WITH DIFF 2025-04-26 08:26:00 José Aparicio Un [facility] POCT GLUCOSE (AUTOMATED) 2025-04-26 08:08:00 Lizet Garcia [facility] MRSA / MSSA SCREEN BY PCRHAILY 2025-04-26 04:17:00 Raj Garcia [facility] POCT GLUCOSE (AUTOMATED) 2025-04-26 03:50:00 Lizet Garcia [facility] POCT GLUCOSE (AUTOMATED) 2025-04-26 03:05:00 [facility] POCT GLUCOSE (AUTOMATED) 2025-04-26 01:40:00 Lizet Garcia [facility] POCT GLUCOSE (AUTOMATED) 2025-04-26 00:43:00 Lizet Fernandez [facility] POCT GLUCOSE (AUTOMATED) 2025-04-26 00:08:00 Lizet Fernandez [facility] HB ECG ROUTINE & RHYTHM STRIP 2025-04-25 23:42:23 Chelle Fernandez [facility] CT CERVICAL SPINE WO CONTRAST 2025-04-25 23:33:30 Chelle Fernandez [facility] CT HEAD WO CONTRAST 2025-04-25 23:33:30 Jaison Fernandez [facility] CREATINE KINASE 2025-04-25 23:06:00 [facility] 2025-04-25 23:06:00 Chelle Fernandez [facility] MAGNESIUM 2025-04-25 23:06:00 Chelle Fernandez [facility] TROPONIN I 2025-04-25 23:06:00 Chelle Fernandez [facility] COMP. METABOLIC PANEL ([id number]) 2025-04-25 23:06:00 Chelle Fernandez [facility] SALICYLATE 2025-04-25 23:06:00 Chelle Fernandez [facility] ETHANOL 2025-04-25 23:06:00 Chelle Fernandez [facility] CBC WITH DIFF 2025-04-25 23:06:00 Chelle Fernandez [facility] GLYCOSYLATED HEMOGLOBIN (A1C) 2025-04-25 23:06:00 Raj Garcia [facility] URINALYSIS 2025-04-25 23:06:00 [facility] N-TERMINAL PRO-BNP 2025-04-25 23:06:00 Chelle Fernandez [facility] URINE DRUG (IMMUNOASSAY) - COMPREHENSIVE DRUG SCREEN W/O REFLEX 2025-04-25 23:06:00 Chelle Fernandez [facility] FENTANYL (IMMUNOASSAY) 2025-04-25 23:06:00 Ralf Fernandez [facility] CRITICAL CARE 2025-04-25 22:19:00 Chelle Fernandez [facility] CT CERVICAL SPINE WO CONTRAST 2025-04-20 11:58:00 Wood Cornejo [facility] CT HEAD WO CONTRAST 2025-04-20 11:58:00 Wood Cornejo [facility] EKG-12 LEAD 2025-04-20 11:48:45 Wood Cornejo [facility] POCT GLUCOSE (AUTOMATED) 2025-04-20 11:44:00 Ying Cornejo [facility] TROPONIN I 2025-04-20 11:42:00 Wood Cornejo [facility] COMP. METABOLIC PANEL ([id number]) 2025-04-20 11:42:00 Wood Cornejo [facility] CBC WITH DIFF 2025-04-20 11:42:00 Wood [facility] URINALYSIS 2025-04-20 11:42:00 Wood Cornejo [facility] CK Total (Creatinine Kinase) 2025-04-15 00:00:00 [facility] POC GLUCOSE UNSOLICITED RESULTS 2025-04-13 08:17:00 Jarrell Washington [facility] COMPLETE BLOOD COUNT 2025-04-13 07:05:00 Rana, Katharina As hraf [facility] AUTOMATED DIFFERENTIAL 2025-04-13 07:05:00 Rana, Katharnia Paola [facility] BASIC METABOLIC PANEL 2025-04-13 07:05:00 Rana, Katharina A shraf [facility] CREATINE KINASE (CK TOTAL) 2025-04-13 07:05:00 RanaJulio Cesar sra [facility] COMPLETE BLOOD COUNT W/DIFF AND PLATELET 2025-04-13 07:05:00 Rana, Katharinara Smithf [facility] POC GLUCOSE UNSOLICITED RESULTS 2025-04-12 17:33:00 Rana, Katharina Paola [facility] POC GLUCOSE UNSOLICITED RESULTS 2025-04-12 14:32:00 Rana, Katharinara Campbellraf [facility] POC GLUCOSE UNSOLICITED RESULTS 2025-04-12 08:00:00 Rana Katharinara Guevara [facility] COMPLETE BLOOD COUNT 2025-04-12 05:51:00 [facility] 2025-04-12 05:51:00 Igleh art, [facility] BASIC METABOLIC PANEL 2025-04-12 05:51:00 Igleha rt, [facility] CREATINE KINASE (CK TOTAL) 2025-04-12 05:51:00 I Malini hilario [facility] COMPLETE BLOOD COUNT W/DIFF AND PLATELET 2025-04-12 05:51:00 Iglehart, [facility] POC GLUCOSE UNSOLICITED RESULTS 2025-04-11 17:05:00 Rana, Katharinara Guevara [facility] COMPLETE BLOOD COUNT 2025-04-11 04:20:00 Iglehar t, Malini Stefanrguen [facility] AUTOMATED DIFFERENTIAL 2025-04-11 04:20:00 [facility]leh art[facility]OLIC PANEL 2025-04-11 04:20:00 Igleha rt, [facility] CREATINE KINASE (CK TOTAL) 2025-04-11 04:20:00 I glefabbyt, [facility] COMPLETE BLOOD COUNT W/DIFF AND PLATELET 2025-04-11 04:20:00 Malini Stokes [facility] POC GLUCOSE UNSOLICITED RESULTS 2025-04-10 18:30:00 Chauhan, Mady Ang [facility] CORONAVIRUS (COVID-19) ERICK ICU/ISOLATION 2025-04-10 18:09:00 Chauhan, Mady Ang [facility] TROPONIN I HIGH SENSITIVITY CARESET (1ST HR) 2025-04-10 17:07:00 Chauhan, Mady Ang [facility] XR CHEST 1 VIEW 2025-04-10 16:53:04 Chauhan, Mady Ang Ms morial [facility] BLOOD CULTURE 2025-04-10 15:32:00 Chauhan, Mady Ang Nathaniel rial [facility] LACTIC ACID WITH 2 HOUR REFLEX 2025-04-10 15:11:00 Chauhan, Mady Ang [facility] COMPLETE BLOOD COUNT 2025-04-10 15:11:00 Chauhan, Mady Ang [facility] AUTOMATED DIFFERENTIAL 2025-04-10 15:11:00 Chauhan, Bryson Ang [facility] BASIC METABOLIC PANEL 2025-04-10 15:11:00 Chauhan, Johanna ang N [facility] HEPATIC FUNCTION PANEL 2025-04-10 15:11:00 Chauhan, Bryson barrientos N [facility] CREATINE KINASE (CK TOTAL) 2025-04-10 15:11:00 Chauhan, Mady Ang [facility] HEMOGLOBIN A1C 2025-04-10 15:11:00 [facility] W/DIFF AND PLATELET 2025-04-10 15:11:00 Chauhan, Mady Ang [facility] PROCALCITONIN LEVEL 2025-04-10 15:11:00 Chauhan, Mady Ang [facility] TROPONIN I HIGH SENSITIVITY CARESET (BASELINE) 2025-04-10 15:10:00 Chauhan, Mady Ang [facility] TROPONIN I HIGH SENSITIVITY CARESET 2025-04-10 15:10:00 Chauhan, Mady Ang [facility] POC GLUCOSE UNSOLICITED RESULTS 2025-04-10 14:16:00 Chauhan, Mady Ang [facility] ECG 12-LEAD 2025-04-10 12:17:09 Rosio Vazquez [facility] COMPLETE BLOOD COUNT W/DIFF AND PLATELET 2025-04-04 08:59:00 Broderick Bedolla [facility] COMPLETE BLOOD COUNT 2025-04-04 08:59:00 Broderick Bedolla [facility] AUTOMATED DIFFERENTIAL 2025-04-04 08:59:00 Broderick Bedolla [facility] COMPREHENSIVE METABOLIC PANEL 2025-04-04 08:58:00 Broderick Bedolla [facility] POC GLUCOSE UNSOLICITED RESULTS 2025-04-04 07:44:00 Broderick Bedolla [facility] US lower extremity venous doppler bilateral 2025-04-04 00:00:00 [facility] POCT GLUCOSE (AUTOMATED) 2024-08-25 16:36:00 [facility] (NA, K, CL, CO2, GLUCOSE, BUN, CREATININE, CA) 2024-08-25 09:18:00 Braden Palacio [facility] CBC WITHOUT DIFF 2024-08-25 09:18:00 [facility]SE (AUTOMATED) 2024-08-25 01:26:00 Lizet Garcia [facility] POCT GLUCOSE (AUTOMATED) 2024-08-24 23:31:00 Lizet Garcia [facility] POCT GLUCOSE (AUTOMATED) 2024-08-24 21:24:00 Lizet Garcia [facility] POCT GLUCOSE (AUTOMATED) 2024-08-24 19:28:00 Lizet Garcia [facility] POCT GLUCOSE (AUTOMATED) 2024-08-24 18:31:00 Lizet Garcia [facility] POCT GLUCOSE (AUTOMATED) 2024-08-24 17:43:00 Lizet Garcia [facility] POCT GLUCOSE (AUTOMATED) 2024-08-24 16:28:00 Lizet Garcia [facility] POCT GLUCOSE (AUTOMATED) 2024-08-24 15:24:00 Lizet Garcia [facility] POCT GLUCOSE (AUTOMATED) 2024-08-24 14:24:00 Lizet Garcia [facility] POCT GLUCOSE (AUTOMATED) 2024-08-24 13:31:00 Lizet Garcia [facility] POCT GLUCOSE (AUTOMATED) 2024-08-24 12:29:00 Lizet Garcia [facility] POCT GLUCOSE (AUTOMATED) 2024-08-24 11:31:00 Lizet Garcia [facility] POCT GLUCOSE (AUTOMATED) 2024-08-24 10:32:00 Lizet Garcia [facility] POCT GLUCOSE (AUTOMATED) 2024-08-24 09:20:00 Lizet Garcia [facility] BASIC METABOLIC PANEL (NA, K, CL, CO2, GLUCOSE, BUN, CREATININE, CA) 2024-08-24 09:10:00 Jayshree [facility] CBC WITH DIFF 2024-08-24 09:10:00 Jayshree [facility] N-TERMINAL PRO-BNP 2024-08-24 09:10:00 Jayshree [facility] POCT GLUCOSE (AUTOMATED) 2024-08-24 08:31:00 Lizet Garcia [facility] POCT GLUCOSE (AUTOMATED) 2024-08-24 07:40:00 Tru [facility] POCT GLUCOSE (AUTOMATED) 2024-08-24 06:34:00 Tru [facility] POCT GLUCOSE (AUTOMATED) 2024-08-24 05:18:00 Lizet Garcia [facility] POCT GLUCOSE (AUTOMATED) 2024-08-24 04:24:00 Tru [facility] POCT GLUCOSE (AUTOMATED) 2024-08-24 03:28:00 Tru [facility] POCT GLUCOSE (AUTOMATED) 2024-08-24 02:32:00 Tur [facility] POCT GLUCOSE (AUTOMATED) 2024-08-24 01:42:00 Lizet Garcia [facility] POCT GLUCOSE (AUTOMATED) 2024-08-24 00:25:00 Lizet Garcia [facility] POCT GLUCOSE (AUTOMATED) 2024-08-23 23:39:00 Lizet Garcia [facility] POCT GLUCOSE (AUTOMATED) 2024-08-23 23:17:00 Lizet Garcia [facility] POCT GLUCOSE (AUTOMATED) 2024-08-23 22:16:00 Lizet Garcia [facility] POCT GLUCOSE (AUTOMATED) 2024-08-23 21:23:00 Lizet Garcia [facility] MRSA / MSSA SCREEN BY HAILY GASTELUM 2024-08-23 20:57:00 Raj Garcia [facility] POCT GLUCOSE (AUTOMATED) 2024-08-23 20:17:00 Lizet Garcia [facility] POCT GLUCOSE (AUTOMATED) 2024-08-23 19:29:00 Lizet Garcia [facility] POCT GLUCOSE (AUTOMATED) 2024-08-23 16:59:00 Lizet Garcia [facility] POCT GLUCOSE(AGE >30DAYS) 2024-08-23 16:05:00 Raj Garcia [facility] POCT GLUCOSE(AGE >30DAYS) 2024-08-23 15:55:00 Singer [facility] POCT GLUCOSE (AUTOMATED) 2024-08-23 15:50:00 [facility]ian [facility] POCT GLUCOSE (AUTOMATED) 2024-08-23 14:57:00 [facility] POCT GLUCOSE (AUTOMATED) 2024-08-23 14:36:00 [facility]ian [facility] VBG+VCOOX+NA+K+GLU+CA2+ 2024-08-23 14:33:[address] , [facility] LACTIC ACID WHOLE BLOOD 2024-08-23 14:33:[address] , [facility] COMP. METABOLIC PANEL ([id number]) 2024-08-23 14:32:00 Singer [facility] CBC WITH DIFF 2024-08-23 14:32:00 Singer [facility] N-TERMINAL PRO-BNP 2024-08-23 14:32:00 Edionwe, [facility] POCT GLUCOSE (AUTOMATED) 2024-08-23 14:12:00 Doc teodora Unassigned, [facility] POCT GLUCOSE (AUTOMATED) 2024-07-01 21:20:00 Lizet Garcia [facility] POCT GLUCOSE (AUTOMATED) 2024-07-01 17:39:00 Lizet Garcia [facility] POCT GLUCOSE (AUTOMATED) 2024-07-01 13:13:00 Lizet Garcia [facility] BASIC METABOLIC PANEL (NA, K, CL, CO2, GLUCOSE, BUN, CREATININE, CA) 2024-07-01 08:40:00 Nohemy Askew [facility] CBC WITH DIFF 2024-07-01 08:40:00 Nohemy Askew [facility] POCT GLUCOSE (AUTOMATED) 2024-07-01 00:47:00 Lizet Garcia [facility] POCT GLUCOSE (AUTOMATED) 2024-06-30 21:23:00 Lizet Garcia [facility] POCT GLUCOSE (AUTOMATED) 2024-06-30 16:14:00 Lizet Garcia [facility] POCT GLUCOSE (AUTOMATED) 2024-06-30 12:51:00 Lizet Garcia [facility] BASIC METABOLIC PANEL (NA, K, CL, CO2, GLUCOSE, BUN, CREATININE, CA) 2024-06-30 09:22:00 Jayshree [facility] CBC WITH DIFF 2024-06-30 09:22:00 Marguerite Martell [facility] POCT GLUCOSE (AUTOMATED) 2024-06-30 02:02:00 [facility] 2024-06-29 21:11:00 Lizet Garcia [facility] POCT GLUCOSE (AUTOMATED) 2024-06-29 16:39:00 Lizet Garcia [facility] POCT GLUCOSE (AUTOMATED) 2024-06-29 12:39:00 Lizet Garcia [facility] BASIC METABOLIC PANEL (NA, K, CL, CO2, GLUCOSE, BUN, CREATININE, CA) 2024-06-29 08:24:00 Nohemy Askew [facility] CBC WITH DIFF 2024-06-29 08:24:00 Nohemy Askew [facility] POCT GLUCOSE (AUTOMATED) 2024-06-29 02:40:00 Lizet Garcia [facility] POCT GLUCOSE (AUTOMATED) 2024-06-28 22:49:00 [facility] POCT GLUCOSE (AUTOMATED) 2024-06-28 21:56:00 [facility] POCT GLUCOSE (AUTOMATED) 2024-06-28 16:57:00 Lizet Garcia [facility] POCT GLUCOSE (AUTOMATED) 2024-06-28 16:57:00 [facility] POCT GLUCOSE (AUTOMATED) 2024-06-28 13:02:00 Lizet Garcia [facility] POCT GLUCOSE (AUTOMATED) 2024-06-28 13:02:00 Lizet Garcia [facility] BASIC METABOLIC PANEL (NA, K, CL, CO2, GLUCOSE, BUN, CREATININE, CA) 2024-06-28 09:43:00 Jovanna Sandra [facility] MAGNESIUM 2024-06-28 09:43:00 Jovanna Sandra [facility] CBC WITH DIFF 2024-06-28 09:43:00 Jovanna Sandra [facility] VANCOMYCIN RANDOM LEVEL 2024-06-28 09:43:00 Diamond Marroquin [facility] MAGNESIUM 2024-06-28 09:43:00 Jovanna Sandra [facility] BASIC METABOLIC PANEL (NA, K, CL, CO2, GLUCOSE, BUN, CREATININE, CA) 2024-06-28 09:43:00 Jovanna Sandra [facility] VANCOMYCIN RANDOM LEVEL 2024-06-28 09:43:00 Diamond Marroquin [facility] CBC WITH DIFF 2024-06-28 09:43:00 Jovanna Sandra [facility] POCT GLUCOSE (AUTOMATED) 2024-06-28 05:07:00 [facility] POCT GLUCOSE (AUTOMATED) 2024-06-28 05:07:00 Lizet Garcia [facility] POCT GLUCOSE (AUTOMATED) 2024-06-28 02:10:00 Lizet Garcia [facility] POCT GLUCOSE (AUTOMATED) 2024-06-28 02:10:00 Lizet Garcia [facility] POCT GLUCOSE (AUTOMATED) 2024-06-27 21:59:00 Lizet Garcia [facility] POCT GLUCOSE (AUTOMATED) 2024-06-27 21:59:00 Lizet Garcia [facility] POCT GLUCOSE (AUTOMATED) 2024-06-27 19:47:00 Lizet Garcia [facility] POCT GLUCOSE (AUTOMATED) 2024-06-27 19:47:00 Lizet Garcia [facility] XR CHEST 1 VW 2024-06-27 19:02:32 Jovanna Sandra [facility] XR CHEST 1 VW 2024-06-27 19:02:32 Jovanna Sandra [facility] TRANSESOPHAGEAL ECHO (RAYMOND) COMPLETE W/ DOPPLER AND COLOR 2024-06-27 17:29:00 Richie [facility] TRANSESOPHAGEAL ECHO (RAYMOND) COMPLETE W/ DOPPLER AND COLOR 2024-06-27 17:29:00 Terra Quirozt[facility] POCT GLUCOSE (AUTOMATED) 2024-06-27 16:41:00 Lizet Garcia [facility] POCT GLUCOSE (AUTOMATED) 2024-06-27 16:41:00 Lizet Garcia [facility] POCT GLUCOSE (AUTOMATED) 2024-06-27 14:13:00 Lizet Garcia [facility] POCT GLUCOSE (AUTOMATED) 2024-06-27 14:13:00 Tru [facility] POCT GLUCOSE (AUTOMATED) 2024-06-27 13:26:00 Tru [facility] POCT GLUCOSE (AUTOMATED) 2024-06-27 13:26:00 Tru [facility] BASIC METABOLIC PANEL (NA, K, CL, CO2, GLUCOSE, BUN, CREATININE, CA) 2024-06-27 09:41:00 [place], [facility] MAGNESIUM 2024-06-27 09:41:00 Jovanna Sandra [facility] CBC WITH DIFF 2024-06-27 09:41:00 Jovanna Sandra [facility] MAGNESIUM 2024-06-27 09:41:00 Jovanna Sandra [facility] BASIC METABOLIC PANEL (NA, K, CL, CO2, GLUCOSE, BUN, CREATININE, CA) 2024-06-27 09:41:00 Boaz [facility] CBC WITH DIFF 2024-06-27 09:41:00 [facility] 2024-06-27 01:37:00 Lizet Garcia [facility] POCT GLUCOSE (AUTOMATED) 2024-06-27 01:37:00 Lizet Garcia [facility] POCT GLUCOSE (AUTOMATED) 2024-06-26 21:58:00 Lizet Garcia [facility] POCT GLUCOSE (AUTOMATED) 2024-06-26 21:58:00 Lizet Garcia [facility] POCT GLUCOSE (AUTOMATED) 2024-06-26 17:25:00 Lizet Garcia [facility] POCT GLUCOSE (AUTOMATED) 2024-06-26 17:25:00 Lizet Garcia [facility] POCT GLUCOSE (AUTOMATED) 2024-06-26 13:17:00 Lizet Garcia [facility] POCT GLUCOSE (AUTOMATED) 2024-06-26 13:17:00 Lizet Garcia [facility] BASIC METABOLIC PANEL (NA, K, CL, CO2, GLUCOSE, BUN, CREATININE, CA) 2024-06-26 09:49:00 [facility] 2024-06-26 09:49:00 Jovanna Sandra [facility] CBC WITH DIFF 2024-06-26 09:49:00 [facility] 2024-06-26 09:49:00 Jovanna Sandra [facility] BASIC METABOLIC PANEL (NA, K, CL, CO2, GLUCOSE, BUN, CREATININE, CA) 2024-06-26 09:49:00 Jovanna Sandra [facility] CBC WITH DIFF 2024-06-26 09:49:00 Jovanna Sandra [facility] POCT GLUCOSE (AUTOMATED) 2024-06-26 02:29:00 Lizet Garcia [facility] POCT GLUCOSE (AUTOMATED) 2024-06-26 02:29:00 Lizet Garcia [facility] POCT GLUCOSE (AUTOMATED) 2024-06-25 21:45:00 Lizet Garcia [facility] POCT GLUCOSE (AUTOMATED) 2024-06-25 21:45:00 Lizet Garcia [facility] POCT GLUCOSE (AUTOMATED) 2024-06-25 16:54:00 Lizet Garcia [facility] POCT GLUCOSE (AUTOMATED) 2024-06-25 16:54:00 Lizet Garcia [facility] POCT GLUCOSE (AUTOMATED) 2024-06-25 13:20:00 Lizet Garcia [facility] POCT GLUCOSE (AUTOMATED) 2024-06-25 13:20:00 Lizet Garcia [facility] VANCOMYCIN RANDOM LEVEL 2024-06-25 09:59:00 Gary Garcia [facility] VANCOMYCIN RANDOM LEVEL 2024-06-25 09:59:00 Gary Garcia [facility] POCT GLUCOSE (AUTOMATED) 2024-06-25 00:57:00 Liezt Garcia [facility] POCT GLUCOSE (AUTOMATED) 2024-06-25 00:57:00 Lizet Garcia [facility] POCT GLUCOSE (AUTOMATED) 2024-06-24 22:07:00 Lizet Garcia [facility] POCT GLUCOSE (AUTOMATED) 2024-06-24 22:07:00 Lizet Garcia [facility] POCT GLUCOSE (AUTOMATED) 2024-06-24 17:08:00 Lizet Garcia [facility] POCT GLUCOSE (AUTOMATED) 2024-06-24 17:08:00 Lizet Garcia [facility] BLOOD CULTURE SCREEN 2024-06-24 16:27:00 Sybil Sandra [facility] BLOOD CULTURE SCREEN 2024-06-24 16:27:00 Sybil Sandra [facility] CAROTID DUPLEX BILATERAL - BY VASCULAR LAB 2024-06-24 13:42:48 Alina Edouard [facility] CAROTID DUPLEX BILATERAL - BY VASCULAR LAB 2024-06-24 13:42:48 Alina Edouard [facility] POCT GLUCOSE (AUTOMATED) 2024-06-24 13:25:00 Lizet Garcia [facility] POCT GLUCOSE (AUTOMATED) 2024-06-24 13:25:00 [facility] POCT GLUCOSE (AUTOMATED) 2024-06-24 00:52:00 [facility] POCT GLUCOSE (AUTOMATED) 2024-06-24 00:52:00 Lizet Garcia [facility] AMMONIA, PLASMA 2024-06-23 23:41:00 Raj Garcia [facility] AMMONIA, PLASMA 2024-06-23 23:41:00 Raj Garcia [facility] ACUTE CARE ARTERIAL BLOOD GAS 2024-06-23 22:43:00 Raj Garcia [facility] ACUTE CARE ARTERIAL BLOOD GAS 2024-06-23 22:43:00 Raj Garcia [facility] POCT GLUCOSE (AUTOMATED) 2024-06-23 22:03:00 Lizet Garcia [facility] POCT GLUCOSE (AUTOMATED) 2024-06-23 22:03:00 Lizet Garcia [facility] MAGNESIUM 2024-06-23 21:04:00 Raj Garcia [facility] TROPONIN I 2024-06-23 21:04:00 Alina Edouard [facility] LIPID PANEL (76042)(TOTAL CHOLESTEROL, TRIGLYCERIDES, HDL) 2024-06-23 21:04:00 Alina Edouard [facility] MAGNESIUM 2024-06-23 21:04:00 Raj Garcia [facility] TROPONIN I 2024-06-23 21:04:00 EdouardAlina sánchez [facility] LIPID PANEL ([id number])(TOTAL CHOLESTEROL, TRIGLYCERIDES, HDL) 2024-06-23 21:04:00 Alina Edouard [facility] TRANSTHORACIC ECHO (TTE) COMPLETE 2024-06-23 20:12:00 Raj Garcia [facility] TRANSTHORACIC ECHO (TTE) COMPLETE 2024-06-23 20:12:00 Raj Garcia [facility] CT HEAD WO CONTRAST 2024-06-23 17:47:00 Juon Hwang [facility] CT CERVICAL SPINE WO CONTRAST 2024-06-23 17:47:00 Juno Hwang [facility] CT CERVICAL SPINE WO CONTRAST 2024-06-23 17:47:00 Juno Hwang [facility] CT HEAD WO CONTRAST 2024-06-23 17:47:00 Juno Hwang [facility] CBC WITH DIFF 2024-06-23 17:07:00 Juno Hwang [facility] COMP. METABOLIC PANEL ([id number]) 2024-06-23 17:07:00 Juno Hwang [facility] TROPONIN I 2024-06-23 17:07:00 Juno Hwang [facility] N-TERMINAL PRO-BNP 2024-06-23 17:07:00 Juno Hwang [facility] URINALYSIS 2024-06-23 17:07:00 Juno Hwang [facility] PROTHROMBIN TIME / INR 2024-06-23 17:07:00 Juno Hwang [facility] ACTIVATED PARTIAL THRMPLAS NILDA 2024-06-23 17:07:00 Juno Hwang [facility] LACTIC ACID WHOLE BLOOD 2024-06-23 17:07:00 Juno Hwang [facility] GLYCOSYLATED HEMOGLOBIN (A1C) 2024-06-23 17:07:00 Raj Garcia [facility] TROPONIN I 2024-06-23 17:07:00 Juno Hwang [facility] COMP. METABOLIC PANEL ([id number]) 2024-06-23 17:07:00 Juno Hwang [facility] CBC WITH DIFF 2024-06-23 17:07:00 Juno Hwang [facility] GLYCOSYLATED HEMOGLOBIN (A1C) 2024-06-23 17:07:00 Raj Garcia [facility] PROTHROMBIN TIME / INR 2024-06-23 17:07:00 Juno Hwang [facility] ACTIVATED PARTIAL THRMPLAS NILDA 2024-06-23 17:07:00 Juno Hwang [facility] URINALYSIS 2024-06-23 17:07:00 Juno Hwang [facility] N-TERMINAL PRO-BNP 2024-06-23 17:07:00 Juno Hwang [facility] LACTIC ACID WHOLE BLOOD 2024-06-23 17:07:00 Juon Hwang [facility] POCT GLUCOSE (AUTOMATED) 2024-06-19 21:58:00 Juno Hwang [facility] POCT GLUCOSE (AUTOMATED) 2024-06-19 21:58:00 Juno Hwang [facility] POCT GLUCOSE (AUTOMATED) 2024-06-19 21:28:00 Juno Hwang [facility] POCT GLUCOSE (AUTOMATED) 2024-06-19 21:28:00 Juno Hwang [facility] XR CHEST 1 VW 2024-06-19 19:23:33 Juno Hwang [facility] XR CHEST 1 VW 2024-06-19 19:23:33 Juno Hwang [facility] LACTIC ACID WHOLE BLOOD 2024-06-19 19:13:00 Juno Hwang [facility] LACTIC ACID WHOLE BLOOD 2024-06-19 19:13:00 Juno Hwang [facility] URINALYSIS 2024-06-19 19:12:00 Juno Hwang [facility] URINALYSIS 2024-06-19 19:12:00 Juno Hwang [facility] URINE CULTURE 2024-06-19 19:12:00 Juno Hwang [facility] BLOOD CULTURE SCREEN 2024-06-19 19:09:00 Juno Hwang [facility] COMP. METABOLIC PANEL ([id number]) 2024-06-19 19:09:00 Juno Hwang [facility] CBC WITH DIFF 2024-06-19 19:09:00 Juno Hwang [facility] N-TERMINAL PRO-BNP 2024-06-19 19:09:00 Juno Hwang [facility] CBC WITH DIFF 2024-06-19 19:09:00 Juno Hwang [facility] COMP. METABOLIC PANEL ([id number]) 2024-06-19 19:09:00 Juno Hwang [facility] N-TERMINAL PRO-BNP 2024-06-19 19:09:00 Juno Hawng [facility] BLOOD CULTURE SCREEN 2024-06-19 19:09:[address] [facility] BLOOD CULTURE WORKUP 2024-06-19 19:09:[address] [facility] BLOOD CULTURE WORKUP 2024-06-19 19:09:[address] [facility] GRAM POSITIVE BLOOD PATHOGENS DNA PROBE-ANAEROBIC 2024-06-19 19:09:00 Juno Hwang [facility] CT HEAD WO CONTRAST 2024-06-17 00:27:39 Parvez Caldera [facility] CT HEAD WO CONTRAST 2024-06-17 00:27:39 Parvez Caldera [facility] DUPLEX VENOUS LEG RIGHT - BY VASCULAR LAB 2024-06-16 03:05:37 Dejon Green [facility] DUPLEX VENOUS LEG RIGHT - BY VASCULAR LAB 2024-06-16 03:05:37 Dejon Green [facility] COMP. METABOLIC PANEL ([id number]) 2024-06-16 00:15:00 Dejon Green [facility] CBC WITH DIFF 2024-06-16 00:15:00 Dejon Green [facility] D-DIMER 2024-06-16 00:15:00 [facility]LOOD 2024-06-16 00:15:00 Dejon Green [facility] CBC WITH DIFF 2024-06-16 00:15:00 [facility] COMP. METABOLIC PANEL ([id number]) 2024-06-16 00:15:00 Dejon Green [facility] LACTIC ACID WHOLE BLOOD 2024-06-16 00:15:00 Dejon Green [facility] D-DIMER 2024-06-16 00:15:00 Dejon Green [facility] CT HEAD WO CONTRAST 2024-06-15 23:47:08 Norma justus [facility] CT HEAD WO CONTRAST 2024-06-15 23:47:08 Norma [facility] POCT GLUCOSE (AUTOMATED) 2024-04-06 10:11:00 Minerva, [facility] POCT GLUCOSE (AUTOMATED) 2024-04-06 10:11:00 Minerva [facility] POCT GLUCOSE (AUTOMATED) 2024-04-06 09:34:00 Minerva, [facility] POCT GLUCOSE (AUTOMATED) 2024-04-06 09:34:00 Minerva [facility] POCT GLUCOSE (AUTOMATED) 2024-04-06 08:30:00 Minerva, [facility] POCT GLUCOSE (AUTOMATED) 2024-04-06 08:30:00 Minerva [facility] POCT GLUCOSE (AUTOMATED) 2024-04-06 07:57:00 Minerva [facility] POCT GLUCOSE (AUTOMATED) 2024-04-06 07:57:00 Minerva, [facility] POCT GLUCOSE (AUTOMATED) 2024-04-06 07:34:00 Minerva [facility] POCT GLUCOSE (AUTOMATED) 2024-04-06 07:34:00 Minerva, [facility] MAGNESIUM 2024-04-06 06:56:00 Minerva [facility] COMP. METABOLIC PANEL ([id number]) 2024-04-06 06:56:00 [facility] WITH DIFF 2024-04-06 06:56:00 Mulugeta Palma [facility] URINALYSIS 2024-04-06 06:56:00 Minerva [facility] CBC WITH DIFF 2024-04-06 06:56:00 Mulugeta Palma [facility] COMP. METABOLIC PANEL ([id number]) 2024-04-06 06:56:00 [facility] MAGNESIUM 2024-04-06 06:56:00 Minerva [facility] URINALYSIS 2024-04-06 06:56:00 Minerva [facility] POCT GLUCOSE (AUTOMATED) 2024-04-06 06:44:00 Minerva [facility] POCT GLUCOSE (AUTOMATED) 2024-04-06 06:44:00 Minerva [facility] EKG-12 LEAD 2024-04-03 21:51:36 Danya [facility] EKG-12 LEAD 2024-04-03 21:51:36 Danya [facility] ACUTE CARE ARTERIAL BLOOD GAS 2024-04-03 19:07:00 Danya [facility] ACUTE CARE ARTERIAL BLOOD GAS 2024-04-03 19:07:00 Danya [facility] AMMONIA, PLASMA 2024-04-03 18:53:00 Ana Hagan [facility] AMMONIA, PLASMA 2024-04-03 18:53:00 Ana Hagan [facility] URINALYSIS 2024-04-03 17:52:00 Danya [facility] URINE DRUG (IMMUNOASSAY) - COMPREHENSIVE DRUG SCREEN W/O REFLEX 2024-04-03 17:52:00 Danya [facility] URINALYSIS 2024-04-03 17:52:00 Danya [facility] URINE DRUG (IMMUNOASSAY) - COMPREHENSIVE DRUG SCREEN W/O REFLEX 2024-04-03 17:52:00 Ana Hagan [facility] XR CHEST 1 VW 2024-04-03 16:27:00 Ana Hagan [facility] XR FOOT 3+ VW RIGHT 2024-04-03 16:27:00 Darwin Hagan [facility] XR CHEST 1 VW 2024-04-03 16:27:00 Ana Hagan [facility] XR FOOT 3+ VW RIGHT 2024-04-03 16:27:00 Darwin Hagan [facility] LACTIC ACID WHOLE BLOOD 2024-04-03 15:53:00 [facility] LACTIC ACID WHOLE BLOOD 2024-04-03 15:53:00 Ronnie Hagan [facility] PHOSPHORUS 2024-04-03 15:52:00 Danya [facility] CREATINE KINASE 2024-04-03 15:52:00 [facility] 2024-04-03 15:52:00 Danya [facility] TROPONIN I 2024-04-03 15:52:00 Danya [facility] COMP. METABOLIC PANEL ([id number]) 2024-04-03 15:52:00 Danya [facility] ETHANOL 2024-04-03 15:52:00 Danya [facility] CBC WITH DIFF 2024-04-03 15:52:00 Ana Hagan [facility] GALV ONLY - INFLUENZA A B RSV PCR 2024-04-03 15:52:00 Danya [facility] N-TERMINAL PRO-BNP 2024-04-03 15:52:00 Abhijit Hagan [facility] COVID-19 (ID NOW RAPID TESTING) 2024-04-03 15:52:00 Danya [facility] COVID-19 (ID NOW RAPID TESTING) 2024-04-03 15:52:00 Danya [facility] INFLUENZA A/B RSV COVID NAAT 2024-04-03 15:52:00 Danya [facility] CBC WITH DIFF 2024-04-03 15:52:00 Danya [facility] ETHANOL 2024-04-03 15:52:00 Danya [facility] COMP. METABOLIC PANEL ([id number]) 2024-04-03 15:52:00 Danya [facility] TROPONIN I 2024-04-03 15:52:00 Danya [facility] N-TERMINAL PRO-BNP 2024-04-03 15:52:00 Abhijit Hagan [facility] CREATINE KINASE 2024-04-03 15:52:00 [facility] 2024-04-03 15:52:00 Danya [facility] PHOSPHORUS 2024-04-03 15:52:00 Danya [facility] LAB ONLY COVID INTERPRETATION 2024-04-03 15:52:00 Danya [facility] POCT GLUCOSE(AGE >30DAYS) 2024-04-03 15:46:00 Danya [facility] POCT GLUCOSE(AGE >30DAYS) 2024-04-03 15:46:00 Danya [facility] POCT GLUCOSE (AUTOMATED) 2024-04-03 15:43:00 Danya [facility] POCT GLUCOSE (AUTOMATED) 2024-04-03 15:43:00 Danya [facility] CT CERVICAL SPINE WO CONTRAST 2024-04-03 15:38:07 Danya [facility] CT HEAD WO CONTRAST 2024-04-03 15:38:07 Darwin Hagan [facility] HEAD WO CONTRAST 2024-04-03 15:38:07 Darwin Hagan [facility] CT CERVICAL SPINE WO CONTRAST 2024-04-03 15:38:07 Dalmedo, [facility] POCT GLUCOSE (AUTOMATED) 2024-04-01 00:04:00 Racheal Tee [facility] POCT GLUCOSE (AUTOMATED) 2024-04-01 00:04:00 Racheal Tee [facility] POCT GLUCOSE (AUTOMATED) 2024-03-31 23:19:00 Racheal Tee [facility] POCT GLUCOSE (AUTOMATED) 2024-03-31 23:19:00 Racheal Tee [facility] COMP. METABOLIC PANEL ([id number]) 2024-03-31 19:37:00 Missael Tee [facility] CBC WITH DIFF 2024-03-31 19:37:00 Racheal Teeshua [facility] EXTRA TUBE LT. BLUE 2024-03-31 19:37:00 Racheal Teeshua [facility] CBC WITH DIFF 2024-03-31 19:37:00 Racheal Teeshua [facility] COMP. METABOLIC PANEL ([id number]) 2024-03-31 19:37:00 Missael Tee [facility] EXTRA TUBE LT. BLUE 2024-03-31 19:37:00 Racheal Teeshua [facility] CT CERVICAL SPINE WO CONTRAST 2024-03-31 19:14:18 Racheal Teeshua [facility] CT HEAD WO CONTRAST 2024-03-31 19:14:18 Racheal Teeshua [facility] CT HEAD WO CONTRAST 2024-03-31 19:14:18 Racheal Teeshua [facility] CT CERVICAL SPINE WO CONTRAST 2024-03-31 19:14:18 Missael Tee [facility] XR KNEE 3 VW RIGHT 2024-03-29 22:12:44 Levi Frank [facility] XR LUMBAR SPINE 2 VW 2024-03-29 22:12:44 Levi Frank [facility] XR KNEE 3 VW RIGHT 2024-03-29 22:12:44 Levi Frank [facility] EKG-12 LEAD 2024-03-22 21:31:10 Libby Fernandez [facility] URINALYSIS 2024-03-22 17:07:00 Libby Fernandez [facility] EXTRA TUBE URINE CULTURE 2024-03-22 17:07:00 Mateusz Gayle [facility] XR CHEST 2 VW 2024-03-22 16:13:07 Libby Fernandez [facility] CREATINE KINASE 2024-03-22 15:46:00 Libby Fernandez [facility] TROPONIN I 2024-03-22 15:46:00 Libby Fernandez [facility] HEPATIC FUNCTION PANEL ([id number]) (ALB,T.PRO,BILI T,BU/BC,ALT,AST,ALK PHOS) 2024-03-22 15:46:00 Libby Fernandez [facility] BASIC METABOLIC PANEL (NA, K, CL, CO2, GLUCOSE, BUN, CREATININE, CA) 2024-03-22 15:46:00 Libby Fernandez [facility] CBC WITH DIFF 2024-03-22 15:46:00 Libby Fernandez [facility] GLYCOSYLATED HEMOGLOBIN (A1C) 2024-03-22 15:46:00 Mateusz Gayle [facility] N-TERMINAL PRO-BNP 2024-03-22 15:46:00 Libby Martinez [facility] EXTRA TUBE LT. BLUE 2024-03-22 15:46:00 Mateusz Gayle [facility] POCT GLUCOSE (AUTOMATED) 2024-03-12 04:41:00 VeniceYoav harrell [facility] POCT GLUCOSE (AUTOMATED) 2024-03-12 03:45:00 VeniceYoav harrell [facility] POCT GLUCOSE (AUTOMATED) 2024-03-12 02:29:00 Yoav Millard [facility] CREATINE KINASE 2024-03-12 01:42:00 [facility] TR[facility]ON[facility] 2024-03-12 01:42:00 Micah Millard [facility] COMP. METABOLIC PANEL ([id number]) 2024-03-12 01:42:00 Micah Millard [facility] CBC WITH DIFF 2024-03-12 01:42:00 Micah Millard [facility] COMP. METABOLIC PANEL ([id number]) 2024-02-10 17:52:00 Riana Paul [facility] CBC WITH DIFF 2024-02-10 17:52:00 Riana Paul [facility] URINALYSIS 2024-02-09 21:03:00 Jose Roberto Ireland [facility] CT HEAD WO CONTRAST 2024-02-09 20:02:00 Jose Roberto Ireland [facility] URINALYSIS 2024-02-06 15:15:00 Sonia Muller [facility] XR LUMBAR SPINE 3 VW 2024-02-06 15:00:46 Rolly Muller [facility] CT ABDOMEN PELVIS WO CONTRAST 2024-01-30 18:58:58 Dejon Green [facility] COMP. METABOLIC PANEL ([id number]) 2024-01-30 16:35:00 Dejon Green [facility] CBC WITH DIFF 2024-01-30 16:35:00 Dejon Green [facility] CONSENT/REFUSAL FOR DIAGNOSIS AND TREATMENT 2024-01-15 03:41:26 Doctor Unassigned, [place] [facility] ASSIGNMENT OF BENEFITS 2024-01-15 03:35:20 Docto r Unassigned, [place] [facility] ASSIGNMENT OF BENEFITS 2021-05-20 22:59:18 Docto r Unassigned, [place] [facility] MICROALBUMIN URINE 2021-02-14 22:17:00 Joel Aranda [facility] CONSENT/REFUSAL FOR DIAGNOSIS AND TREATMENT 2021-02-14 21:51:32 Doctor Unassigned, [place] [facility] ASSIGNMENT OF BENEFITS 2021-02-14 21:50:52 Docto r Unassigned, [place] [facility] XR TIBIA FIBULA 2 VW RIGHT 2020-03-12 13:27:36 Chelle Fernandez [facility] XR LUMBAR SPINE 3 VW 2020-02-16 18:44:17 Basim Aranda [facility] ASSIGNMENT OF BENEFITS 2020-02-16 17:58:39 Docto r Unassigned, [place] [facility] COLONOSCOPY (ENDO) 2019-12-30 15:52:18 Joel Aranda [facility] COLONOSCOPY (ENDO) 2019-12-30 15:52:18 Joel Aranda [facility] POCT GLUCOSE(AGE >30DAYS) 2019-12-30 13:50:[address] [facility] DAY SURGERY - ADC 2019-12-30 06:01:00 Doctor Ileana ssigned, [facility] HCV ANTIBODY 2019-10-18 15:27:00 Tl Aranda [facility] POCT Glucose [facility] Phosphorus Level [facility] Magnesium Level [facility] Comprehensive Metabolic Panel [facility] Complete Blood Count (no diff) [facility] Blood culture, peripheral #2 [facility] Plan of Care Planned Activity Planned Date Details Comments Source Encounters Start Date/Time End Date/Time Encounter Type Admission Type Attending [facility] Care Department Encounter ID Source 2025-04-04 08:03:54 Emergency HFD HFD [id number] [facility] ent 2025-05-31 00:00:00 2025-05-31 12:27:44 Transition of Care Martell Fallon Michele [address] [id number] [facility] 2025-05-28 18:43:00 2025-05-30 11:35:00 Hospital Encounter X BRUCE RICKS [facility] ROSALIND [id number] [facility] 2025-05-11 15:41:00 2025-05-11 17:33:00 Emergency X JACKIE DIAZ SANDRA [facility] ERT [id number] [facility] 2025-05-01 00:00:00 2025-05-02 11:48:10 Transition of Care Martell Fallon Michele A [address] [id number] [facility] 2025-04-25 17:25:00 2025-04-28 19:30:00 Hospital Encounter X RAJ GARCIA [facility] ROSALIND [id number] [facility] 2025-04-26 00:00:00 2025-04-27 02:04:23 Orders Only Doctor Unassigned, [place] Doctor Unassigned, [place] [facility] ([facility] [id number] [facility] 2025-04-20 06:29:00 2025-04-20 10:57:00 Emergency X MO POLLARD [facility] ERT [id number] [facility] 2025-04-10 13:54:00 2025-04-13 13:30:00 Inpatient Emergency JARRELL WASHINGTON [facility] General Medicine [id number] [facility] 2025-04-10 13:54:00 2025-04-13 13:30:00 Hospital Encounter Oscar, Mady Stokes, Katharina Rodriguez [facility] [id number] [facility] 2025-04-11 00:00:00 2025-04-11 15:10:12 Patient Outreach [place] [id number] [facility] 2025-04-04 07:47:00 2025-04-04 13:20:00 Emergency Emergency BRODERICK BEDOLLA [facility] General Medicine [id number] [facility] 2025-04-04 07:47:00 2025-04-04 13:20:00 Emergency GraemeBroderick [facility] [id number] 350.1.13.70 8.2.7.2.686 [id number] Enmanuel mora [facility] 2025-04-04 00:00:00 2025-04-04 12:59:[address] [facility] 90 1.2.840.114 350.1.13.70 8.2.7.2.686 [id number] Enmanuel [facility] 2025-04-04 00:00:00 2025-04-04 12:58:[address] [facility] 909 1.2.840.114 350.1.13.70 8.2.7.2.686 [id number] [facility] 2024-12-28 06:27:00 2024-12-28 07:41:00 Emergency X YARIMA, SHELBY [facility] ERT [id number] [facility] 2024-12-28 06:27:00 2024-12-28 07:41:00 Emergency X YARIMA, SHELBY PERALTARIMA, [facility] ERT [id number] [facility] 2024-12-21 11:19:00 2024-12-21 12:25:00 Emergency X DONI MARK [facility] ERT [id number] [facility] 2024-12-21 11:19:00 2024-12-21 12:25:00 Emergency X DONI MARK [facility] ERT [id number] [facility] 2024-12-16 00:00:00 2024-12-16 15:54:57 Patient Outreach Rupa Conroy Irene C [facility] 1.2840.114 350.1.13.10 4.2.7.2.686 [id number] [facility] 2024-07-21 00:00:00 2024-08-27 18:25:25 Patient Secure Msg Doctor Unassigned, [place] Doctor Unassigned, [place] [facility] 1.20.114 350.1.13.10 4.2.7.2.686 [id number] 019 [id number] [facility] 2024-08-26 00:00:00 2024-08-26 15:23:12 Transition of Care Martell Fallon Michele A [address] [address] 1..114 350.1.13.10 4.2.7.2.686 [id number] [facility] 2024-08-23 09:12:00 2024-08-25 13:20:00 Outpatient X RAJ GARCIA [facility] ROSALIND [id number] [facility] 2024-08-23 09:12:00 2024-08-25 13:20:00 Emergency RAJ GRAYSON [facility] ROSALIND [id number] [facility] 2024-07-04 00:00:00 2024-07-04 11:05:06 Transition of Care Martell Fallon Michele A [facility] 1.84.114 350.1.13.10 4.2.7.2.686 [id number] [facility] 2024-06-23 11:30:00 2024-07-01 17:41:00 Inpatient X BRADEN PALACIO [facility] ROSALIND [id number] [facility] 2024-06-23 11:30:00 2024-07-01 17:41:00 Hospital Encounter Juno Hwang David Oville, Jelani [facility] 1.2.114 350.1.13.10 4.2.7.2.686 [id number] [id number] [facility] 2024-06-27 12:11:00 2024-06-27 12:31:00 Anesthesia Event Poly Azar Resendiz 1.2.840.1 42057.1.1 3.104.2.7 .3.828724 .8 [id number] [facility] 2024-06-27 00:00:00 2024-06-27 00:00:00 Travel 1.2.840.1 45371.1.1 3.104.2.7 .3.182853 .8 1.2.840.114 350.1.13.10 4.2.7.3.698 084.8 [id number] [facility] 2024-06-23 00:00:00 2024-06-23 00:00:00 Travel 1.2.840.1 27888.1.1 3.104.2.7 .3.437937 .8 1.2.840.114 350.1.13.10 4.2.7.3.698 084.8 [id number] [facility] 2024-06-20 11:03:00 2024-06-20 12:50:00 Emergency X MULUGETA PALMA ANDRES [facility] ERT [id number] [facility] 2024-06-20 11:03:00 2024-06-20 12:50:00 Emergency X MULUGETA PALMA ANDRES [facility] ERT [id number] [facility] 2024-06-19 12:34:00 2024-06-19 18:05:00 Emergency X Juno HWANG K [facility] ERT [id number] [facility] 2024-06-19 12:34:00 2024-06-19 18:05:00 Emergency Juno Hwang 1.2.840.1 24089.1.1 3.104.2.7 .3.744692 .8 [id number] [facility] 2024-06-19 00:00:00 2024-06-19 00:00:00 Travel 1.2.840.1 82982.1.1 3.104.2.7 .3.797695 .8 1.2.840.114 350.1.13.10 4.2.7.3.698 084.8 [id number] [facility] 2024-06-16 18:07:00 2024-06-16 19:57:00 Emergency X PARVEZ CALDERA ERICCA [facility] ERT [id number] [facility] 2024-06-16 18:07:00 2024-06-16 19:57:00 Emergency Parvez Caldera D 1.2.840.1 24305.1.1 3.104.2.7 .3.456149 .8 [id number] [facility] 2024-06-15 17:52:00 2024-06-16 00:32:00 Emergency X DEJON GREEN [facility] ERT [id number] [facility] 2024-06-15 17:52:00 2024-06-16 00:32:00 Emergency Dejon Green 1.2.840.1 54198.1.1 3.104.2.7 .3.705092 .8 [id number] [facility] 2024-06-16 00:00:00 2024-06-16 00:00:00 Travel 1.2.840.1 76486.1.1 3.104.2.7 .3.962051 .8 1.2.840.114 350.1.13.10 4.2.7.3.698 084.8 [id number] [facility] 2024-06-15 00:00:00 2024-06-15 00:00:00 Travel 1.2.840.1 10821.1.1 3.104.2.7 .3.997940 .8 1.2.840.114 350.1.13.10 4.2.7.3.698 084.8 [id number] [facility] 2024-04-21 00:00:00 2024-05-28 18:28:04 Patient Secure Msg Doctor Unassigned, [place] 1.2.840.1 02796.1.1 3.104.2.7 .3.493542 .8 [id number] [facility] 2024-04-22 00:00:00 2024-05-28 18:26:38 Patient Secure Msg Doctor Unassigned, [place] 1.2.840.1 29821.1.1 3.104.2.7 .3.383425 .8 [id number] [facility] 2024-04-20 00:00:00 2024-05-21 18:17:43 Patient Secure Msg Doctor Unassigned, [place] 1.2.840.1 09090.1.1 3.104.2.7 .3.362225 .8 [id number] [facility] 2024-04-11 00:00:00 2024-04-11 14:11:19 Patient Outreach Sonia Prajapati 1.2.840.1 67518.1.1 3.104.2.7 .3.003548 .8 [id number] [facility] 2024-04-06 01:32:00 2024-04-06 06:05:00 Emergency X MULUGETA PALMA [facility] [id number] [facility] 2024-04-06 01:32:00 2024-04-06 06:05:00 Emergency Mulugeta Palma 1.2.840.1 41755.1.1 3.104.2.7 .3.540077 .8 [id number] [facility] 2024-04-06 00:00:00 2024-04-06 00:00:00 Travel 1.2.840.1 58787.1.1 3.104.2.7 .3.752750 .8 1.2.840.114 350.1.13.10 4.2.7.3.698 084.8 [id number] [facility] 2024-04-04 00:00:00 2024-04-04 08:34:06 Patient Outreach Sonia Prajapati 1.2.840.1 04760.1.1 3.104.2.7 .3.650572 .8 [id number] [facility] 2024-04-03 09:43:00 2024-04-03 17:45:00 Emergency X ANA HAGAN CHARLES [facility] ERT [id number] [facility] 2024-04-03 09:43:00 2024-04-03 17:45:00 Emergency Ana Hagan 1.2.840.1 67343.1.1 3.104.2.7 .3.654014 .8 [id number] [facility] 2024-04-03 00:00:00 2024-04-03 00:00:00 Travel 1.2.840.1 80399.1.1 3.104.2.7 .3.061571 .8 1.2.840.114 350.1.13.10 4.2.7.3.698 084.8 [id number] [facility] 2024-04-01 00:00:00 2024-04-01 14:18:07 Patient Outreach Sonia Prajapati 1.2.840.1 37905.1.1 3.104.2.7 .3.549815 .8 [id number] [facility] 2024-03-31 12:38:00 2024-03-31 19:42:00 Emergency X MISSAEL TEE [facility] ERT [id number] [facility] 2024-03-31 12:38:00 2024-03-31 19:42:00 Emergency Missael Tee 1.2.840.1 23725.1.1 3.104.2.7 .3.605159 .8 [id number] [facility] 2024-03-31 00:00:00 2024-03-31 00:00:00 Travel 1.2.840.1 93503.1.1 3.104.2.7 .3.819416 .8 1.2.840.114 350.1.13.10 4.2.7.3.698 084.8 [id number] [facility] 2024-03-30 00:00:00 2024-03-30 10:17:48 Patient Outreach Alo Sonia 1.2.840.1 47408.1.1 3.104.2.7 .3.540467 .8 [id number] [facility] 2024-03-30 00:00:00 2024-03-30 08:13:15 Patient Outreach Alo Sonia 1.2.840.1 42311.1.1 3.104.2.7 .3.359718 .8 [id number] [facility] 2024-03-29 14:48:00 2024-03-29 19:06:00 Emergency X LEVI FRANK [facility] [id number] [facility] 2024-03-29 14:48:00 2024-03-29 19:06:00 Emergency Levi Frank 1.2.840.1 90255.1.1 3.104.2.7 .3.619969 .8 [id number] [facility] 2024-03-29 00:00:00 2024-03-29 14:12:53 Patient Outreach Alo Sonia 1.2.840.1 06735.1.1 3.104.2.7 .3.372913 .8 [id number] [facility] 2024-03-29 00:00:00 2024-03-29 08:02:10 Patient Outreach Alo Sonia 1.2.840.1 53488.1.1 3.104.2.7 .3.199223 .8 [id number] [facility] 2024-03-29 00:00:00 2024-03-29 00:00:00 Travel 1.2.840.1 62890.1.1 3.104.2.7 .3.471415 .8 1.2.840.114 350.1.13.10 4.2.7.3.698 084.8 [id number] [facility] 2024-03-23 00:00:00 2024-03-23 00:00:00 Patient Outreach Nargis Moore EMMAKERVIN 1.2.840.114 350.1.13.10 4.2.7.2.686 [id number] [facility] 2024-03-23 00:00:00 2024-03-23 00:00:00 Patient Outreach Sonia Prajapati 1.2.840.114 350.1.13.10 4.2.7.2.686 [id number] [facility] 2024-03-23 00:00:00 2024-03-23 00:00:00 Patient Outreach Sonia Prajapati EMMAKERVIN 1.2.840.114 350.1.13.10 4.2.7.2.686 [id number] [facility] 2024-03-23 00:00:00 2024-03-23 00:00:00 Patient Outreach Sonia Prajapati 1.2.840.114 350.1.13.10 4.2.7.2.686 [id number] [facility] 2024-03-22 09:57:00 2024-03-22 17:18:00 Emergency X MATEUSZ GAYLE PAUL [facility] [id number] [facility] 2024-03-22 09:57:00 2024-03-22 17:18:00 Emergency Mateusz Gayle [facility] 1.2.840.114 350.1.13.10 4.2.7.2.686 [id number] 014 [id number] [facility] 2024-03-11 20:22:00 2024-03-12 00:03:00 Emergency X MICAH MILLARD [facility] ERT [id number] [facility] 2024-03-11 20:22:00 2024-03-12 00:03:00 Emergency Micah Millard [facility] 1.2.840.114 350.1.13.10 4.2.7.2.686 [id number] 014 [id number] [facility] 2024-02-10 11:58:00 2024-02-10 15:10:00 Emergency X RIANA PAUL [facility] ERT [id number] [facility] 2024-02-10 11:58:00 2024-02-10 15:10:00 Emergency Riana Paul [facility] 1.2.840.114 350.1.13.10 4.2.7.2.686 [id number] 084 [id number] [facility] 2024-02-09 14:01:00 2024-02-09 21:19:00 Emergency X JOSE ROBERTO IRELAND [facility] ERT [id number] [facility] 2024-02-09 14:01:00 2024-02-09 21:19:00 Emergency Jose Roberto Ireland [facility] 1.2.840.114 350.1.13.10 4.2.7.2.686 [id number] 084 [id number] [facility] 2024-02-06 09:21:00 2024-02-06 11:51:00 Emergency X SONIA MULLER [facility] ERT [id number] [facility] 2024-02-06 09:21:00 2024-02-06 11:51:00 Emergency Sonia Muller [facility] 1.2.840.114 350.1.13.10 4.2.7.2.686 [id number] 084 [id number] [facility] 2024-01-30 10:06:00 2024-01-30 15:02:00 Emergency X DEJON GREEN [facility] ERT [id number] [facility] 2024-01-30 10:06:00 2024-01-30 15:02:00 Emergency Dejon Green [facility] 1.0.114 350.1.13.10 4.2.7.2.686 [id number] 084 [id number] [facility] 2024-01-14 21:21:00 2024-01-14 21:48:00 Emergency [facility] ERT [id number] [facility] 2024-01-14 21:21:00 2024-01-14 21:48:00 Emergency Nathaly [facility] Gorgemilena [facility] 1..114 350.1.13.10 4.2.7.2.686 [id number] 084 [id number] [facility] 2024-01-05 06:39:00 2024-01-05 07:57:00 Emergency X JACKIE DIAZ [facility] ERT [id number] [facility] 2024-01-05 06:39:00 2024-01-05 07:57:00 Emergency Jackie Diaz [facility] 1..114 350.1.13.10 4.2.7.2.686 [id number] 084 [id number] [facility] 2022-12-29 13:30:00 2022-12-29 14:30:00 MAC Stein 2..840. 1.536613. 4.6.99949 70872 2.16.840.1. 330704.4.6. [id number] [facility] 2022-08-21 00:00:00 2022-08-21 00:00:00 Tl Guzman [facility] 1..114 350.1.13.10 4.2.7.2.686 [id number] 044 [id number] [facility] 2022-02-17 00:00:00 2022-02-17 00:00:00 Refill Tl [facility] 1.2.840.114 350.1.13.10 4.2.7.2.686 [id number] 044 [id number] [facility] 2021-11-06 10:40:00 2021-11-06 10:40:00 Outpatient R TL ARANDA [facility] [id number] [facility] 2021-10-28 00:00:00 2021-10-28 00:00:[address] [facility] 1.2.840.114 350.1.13.10 4.2.7.2.686 [id number] 044 [id number] [facility] 2021-10-03 00:00:00 2021-10-03 00:00:00 Refill Tl Aranda [facility] 1.2.840.114 350.1.13.10 4.2.7.2.686 [id number] 044 [id number] [facility] 2021-09-09 00:00:00 2021-09-09 00:00:00 Telephone Georgina Garcia [facility] 1.2.114 350.1.13.10 4.2.7.2.686 [id number] 082 [id number] [facility] 2021-07-18 00:00:00 2021-07-18 00:00:00 Patient Secure Msg Doctor Unassigned, [place] [facility] 1.2.114 350.1.13.10 4.2.7.2.686 [id number] 019 [id number] [facility] 2021-07-12 00:00:00 2021-07-12 00:00:00 Telephone Tl Aranda [facility] 1.2.840.114 350.1.13.10 4.2.7.2.686 [id number] 044 [id number] [facility] 2021-07-10 15:55:33 2021-07-10 15:55:44 Office Visit Tl Aranda [facility] 1.2.840.114 350.1.13.10 4.2.7.2.686 [id number] 044 [id number] [facility] 2021-07-10 09:55:19 2021-07-10 11:00:50 Office Visit Tl Aranda [facility] 1.2.840.114 350.1.13.10 4.2.7.2.686 [id number] 044 [id number] [facility] 2021-07-10 10:00:00 2021-07-10 10:00:00 Outpatient R TL ARANDA [facility] [id number] [facility] 2021-07-09 00:00:00 2021-07-09 00:00:00 Telephone Tl Aranda [facility] 1.2.840.114 350.1.13.10 4.2.7.2.686 [id number] [facility] 2021-06-19 00:00:00 2021-06-19 00:00:00 Refill Tl Aranda [facility] 1.2.840.114 350.1.13.10 4.2.7.2.686 [id number] 044 [id number] [facility] 2021-05-20 17:59:38 2021-05-20 18:39:03 Urgent Care Provider, [facility] Lesli Oscar [facility] Office Building One 1.2.840.114 350.1.13.10 4.2.7.2.686 [id number] 044 [id number] [facility] 2021-05-20 18:20:00 2021-05-20 18:20:00 Outpatient R [facility] [id number] [facility] 2021-05-20 00:00:00 2021-05-20 00:00:00 Orders Only Doctor Unassigned, [place] [facility] 1.20.114 350.1.13.10 4.2.7.2.686 [id number] [id number] [facility] 2021-05-16 00:00:00 2021-05-16 00:00:00 Refill Tl Aranda [facility] 1.2.114 350.1.13.10 4.2.7.2.686 [id number] 044 [id number] [facility] 2021-02-14 16:53:57 2021-02-14 17:08:57 Shrimper Visit Pob, 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 Manoj [facility] 1.2.114 350.1.13.10 4.2.7.2.686 [id number] [facility] 2021-02-14 15:55:11 2021-02-14 16:27:03 Office Visit Tl Aranda [facility] 1.284.114 350.1.13.10 4.2.7.2.686 [id number] 044 [id number] [facility] 2021-02-14 16:00:00 2021-02-14 16:00:00 Outpatient R TL ARANDA [facility] [id number] [facility] 2021-02-14 00:00:00 2021-02-14 00:00:00 Orders Only Doctor Unassigned, [place] [facility] 1.2.114 350.1.13.10 4.2.7.2.686 [id number] [facility] 2021-02-08 00:00:00 2021-02-08 00:00:00 Refill Tl Aranda [facility] 1.2.840.114 350.1.13.10 4.2.7.2.686 [id number] 044 [id number] [facility] 2021-01-28 00:00:00 2021-01-28 00:00:00 Telephone Tl Aranda [facility] 1.2.840.114 350.1.13.10 4.2.7.2.686 [id number] 044 [id number] [facility] 2021-01-22 00:00:00 2021-01-22 00:00:00 Telephone Tl Aranda [facility] 1.2.840.114 350.1.13.10 4.2.7.2.686 [id number] 044 [id number] [facility] 2021-01-21 00:00:00 2021-01-21 00:00:00 Refill Tl Aranda [facility] 1.2.840.114 350.1.13.10 4.2.7.2.686 [id number] 044 [id number] [facility] 2020-10-31 13:30:00 2020-10-31 13:30:00 Outpatient R NIMISHA YING [facility] [id number] [facility] 2020-10-09 14:40:00 2020-10-09 14:40:00 Outpatient R TL ARANDA [facility] [id number] [facility] 2020-09-24 09:20:00 2020-09-24 09:20:00 Outpatient R FRANK QUIROZ [facility] [id number] [facility] 2020-07-09 09:20:00 2020-07-09 09:20:00 Outpatient R TL ARANDA [facility] [id number] [facility] 2020-07-09 08:17:40 2020-07-09 08:37:40 Telemedici ne Visit Tl Aranda [facility] 1.2.840.114 350.1.13.10 4.2.7.2.686 [id number] [id number] [facility] 2020-06-28 00:00:00 2020-06-28 00:00:00 Darrell Billings [facility] 1.2.840.114 350.1.13.10 4.2.7.2.686 [id number] [id number] [facility] 2020-04-19 08:00:00 2020-04-19 08:00:00 Outpatient R MANOJ TL [facility] [id number] [facility] 2020-04-12 09:46:54 2020-04-12 10:06:54 Urgent Care Provider, [facility] Care Yossi Prasad [facility] Office Building One 1.2840.114 350.1.13.10 4.2.7.2.686 [id number] 044 [id number] [facility] 2020-04-12 10:00:00 2020-04-12 10:00:00 Outpatient R YOSSI PRASDA [facility] [id number] [facility] 2020-04-09 00:00:00 2020-04-09 00:00:00 Telephone Tl Aranda [facility] 1.2.840.114 350.1.13.10 4.2.7.2.686 [id number] [id number] [facility] 2020-04-05 00:00:00 2020-04-05 00:00:00 Telephone Tl Aranda [facility] 1.2.840.114 350.1.13.10 4.2.7.2.686 [id number] [id number] [facility] 2020-03-16 10:02:04 2020-03-16 10:02:51 Undercover Agent Visit Debra Friedman [facility] 1.2.840.114 350.1.13.10 4.2.7.2.686 [id number] [facility] 2020-03-15 15:00:00 2020-03-15 15:00:00 Outpatient R IDALIA, COUNT INCLUDES THE [facility] [id number] [facility] 2020-03-14 16:30:00 2020-03-14 16:30:00 Outpatient R DARRELL BECKFORD [facility] [id number] [facility] 2020-03-14 15:42:00 2020-03-14 15:57:00 Telemedici ne Visit BobDarrell [facility] 1.2.840.114 350.1.13.10 4.2.7.2.686 [id number] [id number] [facility] 2020-03-14 00:00:00 2020-03-14 00:00:00 Telephone Tl Aranda [facility] 1.2.840.114 350.1.13.10 4.2.7.2.686 [id number] [id number] [facility] 2020-03-12 07:53:07 2020-03-12 08:57:00 Emergency Chelle Fernandez [facility] 1.2.840.114 350.1.13.10 4.2.7.2.686 [id number] 084 [id number] [facility] 2020-03-12 07:53:07 2020-03-12 08:57:00 Emergency X CHELLE FERNANDEZ [facility] ERT [id number] [facility] 2020-03-08 15:00:00 2020-03-08 15:00:00 Outpatient R IDALIA, COUNT INCLUDES [facility] [id number] [facility] 2020-02-28 13:00:00 2020-02-28 13:00:00 Outpatient R MANOJ [facility] [id number] [facility] 2020-02-28 07:16:07 2020-02-28 07:56:07 [facility] 1.2840.114 350.1.13.10 4.2.7.2.686 [id number] [facility] 2020-02-23 00:00:00 2020-02-23 00:00:[facility] 1.2.840.114 350.1.13.10 4.2.7.2.686 [id number] [facility] 2020-02-16 12:59:15 2020-02-16 23:59:00 Outpatient R MANOJ [facility] [id number] [facility] 2020-02-16 12:59:00 2020-02-16 23:59:00 [facility] 1.2840.114 350.1.13.10 4.2.7.2.686 [id number] [facility] 2020-02-16 00:00:00 2020-02-16 00:00:00 Orders Only Doctor Unassigned, [place] [facility] 1.2.840.114 350.1.13.10 4.2.7.2.686 [id number] [facility] 2020-02-16 00:00:00 2020-02-16 00:00:00 Telephone Manoj [facility] 1.2.840.114 350.1.13.10 4.2.7.2.686 [id number] [facility] 2020-01-18 07:23:58 2020-01-18 08:32:20 [facility] [place] 1.2840.114 350.1.13.10 4.2.7.2.686 [id number] [facility] 2020-01-18 07:20:00 2020-01-18 07:20:00 Outpatient R TL ARANDA [facility] [id number] [facility] 2020-01-18 00:00:00 2020-01-18 00:00:00 Letter (Out) Doctor Unassigned, [place] [facility] 1.20.114 350.1.13.10 4.2.7.2.686 [id number] [facility] 2020-01-07 00:00:00 2020-01-07 00:00:00 Natividad Corrigan [facility] 1.840.114 350.1.13.10 4.2.7.2.686 [id number] [facility] 2020-01-04 00:00:00 2020-01-04 00:00:00 Renita Tl Aranda [facility] 1.2.114 350.1.13.10 4.2.7.2.686 [id number] [facility] 2019-12-30 07:35:00 2019-12-30 11:49:00 Hospital Encounter Glo Finn [facility] 1.2.114 350.1.13.10 4.2.7.2.686 [id number] [facility] 2019-12-30 07:35:00 2019-12-30 11:49:00 Outpatient R GLO FINN [facility] CASEY [id number] [facility] 2019-12-30 00:00:00 2019-12-30 00:00:00 Orders Only Doctor Unassigned, [place] [facility] 1.2.114 350.1.13.10 4.2.7.2.686 [id number] [facility] 2019-12-19 08:02:28 2019-12-19 09:08:19 Office Visit Kendall Campa [facility] 1.2.840.114 350.1.13.10 4.2.7.2.686 [id number] [facility] 2019-12-01 15:15:00 2019-12-01 15:15:00 Outpatient JOCELYN CHAPPELL [facility] [id number] [facility] 2019-10-26 14:45:00 2019-10-26 15:36:20 Outpatient NIMISHA WATKISN [facility] [id number] [facility] 2019-06-10 10:30:00 2019-06-10 12:20:48 Outpatient R TL ARANDA [facility] [id number] [facility] 2019-05-30 14:20:00 2019-05-30 17:18:22 Outpatient R DARRELL MAXWELL III [facility] [id number] [facility] 2019-05-24 08:45:00 2019-05-24 08:45:00 Outpatient JUHI REAL [facility] [id number] [facility] 2019-04-26 08:30:00 2019-04-26 09:03:15 Outpatient JUHI REAL [facility] [id number] [facility] 2019-01-12 15:30:00 2019-01-12 16:04:35 Outpatient NATIVIDAD GLASS [facility] [id number] [facility] Results Test Description Test Time Test Comments Results Result Co mments Source [facility] GLUCOSE (AUTOMATED)2025-05-29 22:51:42* Test Item Value Reference Range Interpretation Comme nts POCT GLU (test code = 7514338493) 217 mg/dL 70-110 H Lab Interpretation (test cod e = 25071-1) Abnormal [facility] GLUCOSE (AUTOMATED)2025-05-29 18:30:11* Test Item Value Reference Range Interpretation Comme nts POCT GLU (test code = 3309222509) 138 mg/dL 70-110 H Lab Interpretation (test cod e = 14451-5) [facility] [id number] 13:26:08CT HEAD WO CONTRAST HISTORY:fall COMPARISON: CT head without contrast on 04/25/2025 TECHNIQUE: Noncontrast axial images of the head, with coronal and sagittalreformats. FINDINGS: The ventricles and cerebral sulci are normal in caliber and configuration.No hydrocephalus, midline shift or pathological extra- axial fluidcollection is present. The basal cisterns are unremarkable. There is no acute intracranial hemorrhage or significant is nonspecific andlikely represents microvascular ischemic changes. The vazquez-white matterdifferentiation is preserved. The mastoid air cells and paranasal air sinusesare clear. The calvariumand central skull base are unremarkable.[facility] GLUCOSE (AUTOMATED)2025-05-29 12:40:14* Test Item Value Reference Range Interpretation Comme nts POCT GLU (test code = 5501441955) 162 mg/dL 70-110 H Lab Interpretation (test cod e = 73667-8) [facility] [id number] 00:41:58* Test Item Value Reference Range Interpretation Comme nts TROPONIN I (test code = 4380362230) <=0.034 RJ (test code = RJ) Reference [...] of biotin. Lab Interpretation (test code = 06705-8) [facility] [id number] 00:41:58* Test Item Value Reference Range Interpretation Comme nts NT-proBNP (test code = 17725-2) 428 pg/mL <=125 RJ (test code = RJ) Result Indeterminate-Consid er causes of NT-proBNP elevation other than Heart failure such as acute coronary syndrome, pulmonary embolism, pulmonary hypertension, sepsis, stroke, and renal dysfunction. Lab Interpretation (test code = 39207-2) [facility] 1 [id number] 00:39:26XR CHEST 1 05/28/2025 7:19 PM HISTORY: weakness . COMPARISON: Chest radiograph dated 04/27/2025. FINDINGS: Cardiomediastinal silhouette is unchanged.. Low volume with bronchovascular crowding. Left retrocardiac streakyopacities, possibly atelectasis. No sizable pleural effusion orpneumothorax. No acute osseous abnormality.[facility]. METABOLIC PANEL (21999) 2025-05-29 00:24:36* Test Item Value Reference Range Interpretation Comme [facility] NA (test code = 8641906477) 136 mmol/L 135-145 K (test code = 0263377863) 4.6 mmol/L 3.5-5.0 CL (test code = 4336748652) 105 mmol/L 98-108 CO2 TOTAL (test code = 6559196568) 25 mmol/L 23-31 AGAP (test code = 1084106644) 6 2-16 BUN (test code = 6260137354) 29 mg/dL 7-23 H GLUCOSE (test code = 1117908194) 128 mg/dL 70-110 H CREATININE (test code = 2160-0) 1.1 mg/dL 0.60-1.25 TOTAL BILI (test code = 9093737117) 0.4 mg/dL 0.1-1.1 CALCIUM (test code = 8890743387) 8.5 mg/dL 8.6-10.6 L T PROTEIN (test code = 1973254647) 6.5 g/dL 6.3-8.2 ALBUMIN (test code = 3551826534) 3.7 g/dL 3.5-5.0 ALK PHOS (test code = 2872203598) 91 U/L 34-122 ALTv (test code = 1742-6) 15 U/L 5-50 AST(SGOT) (test code = 7538786112) 20 U/L 13-40 eGFR (test code = 25265-0) 71.8 mL/min/1.73m2 CKD-EPI eGFR (2020). Assuming creatinine has been stable day-to-day for at least three months, the eGFR indicates Category G2 (60 - 89 mL/min/1.73 m2) Lab Interpretation (test code = 23115-4) Abnormal [facility] WITH [id number] 00:05:13* Test Item Value Reference Range Interpretation Comme nts WBC (test code = 6690-2) 7.58 4.20-10.70 RBC (test code = 789-8) 3.73 4.26-5.52 L HGB (test code = 718-7) 10.4 g/dL 12.2-16.4 L HCT (test code = 4544-3) 32.3 % 38.4-49.3 L MCV (test code = 787-2) 86.6 fL 81.7-95.6 MCH (test code = 785-6) 27.9 pg 26.1-32.7 MCHC (test code = 786-4) 32.2 g/dL 31.2-35.0 RDW-SD (test code = 75929-4) 45.2 fL 38.5-51.6 RDW-CV (test code = 788-0) 14.4 % 12.1-15.4 PLT (test code = 777-3) 224 150-328 MPV (test code = 42104-0) 9.4 fL 9.8-13.0 L NRBC/100 WBC (test code = 6380553265) 0 0.0-10.0 NRBC x10^3 (test code = 5298634830) See_Comment [Automated Lust have it!a ge] The system which generated this result transmitted reference range: 10*3/?L. The reference range was not used to interpret this result as normal/abnormal. GRAN MAT (NEUT) % (test code = 770-8) 73.1 % IMM GRAN % (test code = 4235184314) 0.4 % LYMPH % (test code = 736-9) 16.4 % MONO % (test code = 5905-5) 8 % EOS % (test code = 713-8) 1.7 % BASO % (test code = 706-2) 0.4 % GRAN MAT x10^3(ANC) (test code = 3227058135) 5.54 10*3/uL 1.99-6.95 IMM GRAN x10^3 (test code = 5007734892) 0.03 10*3/uL 0.00-0.06 LYMPH x10^3 (test code = 731-0) 1.24 10*3/uL 1.09-3.23 MONO x10^3 (test code = 742-7) 0.61 10*3/uL 0.36-1.02 EOS x10^3 (test code = 711-2) 0.13 10*3/uL 0.06-0.53 BASO x10^3 (test code = 704-7) 0.03 10*3/uL 0.01-0.09 Lab Interpretation (test code = 91262-8) Abnormal [facility] GLUCOSE (AUTOMATED)2025-04-28 21:46:08* Test Item Value Reference Range Interpretation Comme nts POCT GLU (test code = 7359412376) 210 mg/dL 70-110 H Lab Interpretation (test cod e = 47735-4) Abnormal [facility] GLUCOSE (AUTOMATED)2025-04-28 17:26:40* Test Item Value Reference Range Interpretation Comme nts POCT GLU (test code = 2899670815) 276 mg/dL 70-110 H Lab Interpretation (test cod e = 71917-7) Abnormal [facility] GLUCOSE (AUTOMATED)2025-04-28 16:25:40* Test Item Value Reference Range Interpretation Comme nts POCT GLU (test code = 7925683390) 277 mg/dL 70-110 H Lab Interpretation (test cod e = 88714-9) Abnormal [facility] GLUCOSE (AUTOMATED)2025-04-28 12:50:45* Test Item Value Reference Range Interpretation Comme nts POCT GLU (test code = 4858360934) 150 mg/dL 70-110 H Lab Interpretation (test cod e = 74536-1) Abnormal [facility] GLUCOSE (AUTOMATED)2025-04-28 09:59:10* Test Item Value Reference Range Interpretation Comme nts POCT GLU (test code = 5008879872) 205 mg/dL 70-110 H Lab Interpretation (test cod e = 27062-8) [facility] 1 [id number] 08:17:09Ordering physician: RAJ GARCIA Indication: Shortness of breath Comparison: Chest dated 06/27/2024 Technical quality: Adequate Findings: Single AP view of the chest. The cardiopericardial silhouette ismildly enlarged. There is linear atelectasis or scarring in the right lowerlung. The visualized bony thorax is intact.[facility] GLUCOSE (AUTOMATED)2025-04-28 07:43:10* Test Item Value Reference Range Interpretation Comme nts POCT GLU (test code = 5715545588) 228 mg/dL 70-110 H Lab Interpretation (test cod e = 64688-8) Abnormal [facility] GLUCOSE (AUTOMATED)2025-04-28 05:42:09* Test Item Value Reference Range Interpretation Comme nts POCT GLU (test code = 1310852600) 131 mg/dL 70-110 H Lab Interpretation (test cod e = 05618-1) Abnormal [facility] GLUCOSE (AUTOMATED)2025-04-28 01:37:08* Test Item Value Reference Range Interpretation Comme nts POCT GLU (test code = 1028650180) 170 mg/dL 70-110 H Lab Interpretation (test cod e = 01639-5) Abnormal [facility] GLUCOSE (AUTOMATED)2025-04-27 21:38:38* Test Item Value Reference Range Interpretation Comme nts POCT GLU (test code = 1807801817) 175 mg/dL 70-110 H Lab Interpretation (test cod e = 17502-8) Abnormal [facility] GLUCOSE (AUTOMATED)2025-04-27 12:56:12* Test Item Value Reference Range Interpretation Comme nts POCT GLU (test code = 7126332414) 149 mg/dL 70-110 H Lab Interpretation (test cod e = 99443-8) Abnormal [facility] GLUCOSE (AUTOMATED)2025-04-27 09:00:38* Test Item Value Reference Range Interpretation Comme nts POCT GLU (test code = 8590501967) 123 mg/dL 70-110 H Lab Interpretation (test cod e = 97716-8) Abnormal [facility] GLUCOSE (AUTOMATED)2025-04-27 04:23:09* Test Item Value Reference Range Interpretation Comme nts POCT GLU (test code = 8939584073) 196 mg/dL 70-110 H Lab Interpretation (test cod e = 26846-6) Abnormal [facility] GLUCOSE (AUTOMATED)2025-04-27 01:00:09* Test Item Value Reference Range Interpretation Comme nts POCT GLU (test code = 5485851394) 192 mg/dL 70-110 H Lab Interpretation (test cod e = 28003-6) Abnormal [facility] GLUCOSE (AUTOMATED)2025-04-26 21:35:37* Test Item Value Reference Range Interpretation Comme nts POCT GLU (test code = 9607686780) 216 mg/dL 70-110 H Lab Interpretation (test cod e = 65205-5) [facility]KG (SCANNED DOCUMENTS)2025-04-26 20:19:58 Ordered by an unspecified provider.[facility] GLUCOSE (AUTOMATED)2025-04-26 16:53:41* Test Item Value Reference Range Interpretation Comme nts POCT GLU (test code = 3253582056) 161 mg/dL 70-110 H Lab Interpretation (test cod e = 02099-6) Abnormal [facility] GLUCOSE (AUTOMATED)2025-04-26 12:55:07* Test Item Value Reference Range Interpretation Comme nts POCT GLU (test code = 4818742088) 181 mg/dL 70-110 H Lab Interpretation (test cod e = 50817-5) [facility]normal [facility]. Met[facility] (10770)2025-04-26 10:23:11* Test Item Value Reference Range Interpretation Comme nts NA (test code = 4627201393) 135 mmol/L 135-145 K (test code = 3001197535) 4 mmol/L 3.5-5.0 CL (test code = 6236129270) 105 mmol/L 98-108 CO2 TOTAL (test code = 1115101309) 25 mmol/L 23-31 AGAP (test code = 1139837388) 5 2-16 BUN (test code = 0213966971) 19 mg/dL 7-23 GLUCOSE (test code = 3416030052) 236 mg/dL 70-110 H CREATININE (test code = 2160-0) 0.99 mg/dL 0.60-1.25 TOTAL BILI (test code = 8991617479) 0.6 mg/dL 0.1-1.1 CALCIUM (test code = 9907926532) 8.1 mg/dL 8.6-10.6 L T PROTEIN (test code = 2332579570) 5.4 g/dL 6.3-8.2 L ALBUMIN (test code = 6709631645) 2.7 g/dL 3.5-5.0 L ALK PHOS (test code = 6679382413) 99 U/L 34-122 ALTv (test code = 1742-6) 14 U/L 5-50 AST(SGOT) (test code = 4911797561) 36 U/L 13-40 eGFR (test code = 97617-7) 81.4 mL/min/1.73m2 CKD-EPI eGFR (2020). Assuming creatinine has been stable day-to-day for at least three months, the eGFR indicates Category G2 (60 - 89 mL/min/1.73 m2) Lab Interpretation (test code = 88755-6) Abnormal [facility] with [id number] 09:01:08* Test Item Value Reference Range Interpretation Comme nts WBC (test code = 6690-2) 9.85 4.20-10.70 RBC (test code = 789-8) 3.43 4.26-5.52 L HGB (test code = 718-7) 9.6 g/dL 12.2-16.4 L HCT (test code = 4544-3) 29.2 % 38.4-49.3 L MCV (test code = 787-2) 85.1 fL 81.7-95.6 MCH (test code = 785-6) 28 pg 26.1-32.7 MCHC (test code = 786-4) 32.9 g/dL 31.2-35.0 RDW-SD (test code = 78434-1) 40.5 fL 38.5-51.6 RDW-CV (test code = 788-0) 13.2 % 12.1-15.4 PLT (test code = 777-3) 288 150-328 MPV (test code = 57519-0) 9.4 fL 9.8-13.0 L NRBC/100 WBC (test code = 7510185827) 0 0.0-10.0 NRBC x10^3 (test code = 5990299833) See_Comment [Automated messa ge] The system which generated this result transmitted reference range: 10*3/?L. The reference range was not used to interpret this result as normal/abnormal. GRAN MAT (NEUT) % (test code = 770-8) 72.4 % IMM GRAN % (test code = 6048588299) 0.6 % LYMPH % (test code = 736-9) 13.8 % MONO % (test code = 5905-5) 12.3 % EOS % (test code = 713-8) 0.6 % BASO % (test code = 706-2) 0.3 % GRAN MAT x10^3(ANC) (test code = 9027075443) 7.13 10*3/uL 1.99-6.95 H IMM GRAN x10^3 (test code = 9299435395) 0.06 10*3/uL 0.00-0.06 LYMPH x10^3 (test code = 731-0) 1.36 10*3/uL 1.09-3.23 MONO x10^3 (test code = 742-7) 1.21 10*3/uL 0.36-1.02 H EOS x10^3 (test code = 711-2) 0.06 10*3/uL 0.06-0.53 BASO x10^3 (test code = 704-7) 0.03 10*3/uL 0.01-0.09 Lab Interpretation (test code = 00750-4) Abnormal [facility] GLUCOSE (AUTOMATED)2025-04-26 08:12:36* Test Item Value Reference Range Interpretation Comme nts POCT GLU (test code = 3565276813) 266 mg/dL 70-110 H Lab Interpretation (test cod e = 85394-5) Abnormal [facility] GLUCOSE (AUTOMATED)2025-04-26 03:52:07* Test Item Value Reference Range Interpretation Comme nts POCT GLU (test code = 1519359512) 100 mg/dL 70-110 Lab Interpretation (test cod e = 07769-0) Normal [facility] GLUCOSE (AUTOMATED)2025-04-26 03:31:03* Test Item Value Reference Range Interpretation Comme nts POCT GLU (test code = 8784645894) 60 mg/dL 70-110 L Lab Interpretation (test cod e = 37846-8) [facility]normal [facility] CenterGlycosylated Hemoglobin (A1C)2025-04-26 01:54:14* Test Item Value Reference Range Interpretation Comme nts HGB A1C (test code = 4548-4) 8.7 % 4.0-5.7 H RJ (test code = RJ) Reference RangesNormal: <5.7%Prediabetes: 5.7 - 6.4%Diabetes: > 6.5% Lab Interpretation (test code = 55997-6) Abnormal [facility] GLUCOSE (AUTOMATED)2025-04-26 01:41:07* Test Item Value Reference Range Interpretation Comme nts POCT GLU (test code = 5989661646) 92 mg/dL 70-110 Lab Interpretation (test cod e = 87194-6) Normal [facility] GLUCOSE (AUTOMATED)2025-04-26 00:44:08* Test Item Value Reference Range Interpretation Comme nts POCT GLU (test code = 7978412993) 109 mg/dL 70-110 Lab Interpretation (test cod e = 05706-4) Normal [facility] CenterTROPONIN [id number] 00:18:21* Test Item Value Reference Range Interpretation Comme nts TROPONIN I (test code = 3985893049) 0.009 ng/mL <=0.034 RJ (test code = RJ) [...] of biotin. Lab Interpretation (test code = 75042-3) Normal [facility] CenterN-[facility]MINAL [id number] 00:16:25* Test Item Value Reference Range Interpretation Comme nts NT-proBNP (test code = 70068-8) 727 pg/mL <=125 RJ (test code = RJ) Result Indeterminate-Consid er causes of NT-proBNP elevation other than Heart failure such as acute coronary syndrome, pulmonary embolism, pulmonary hypertension, sepsis, stroke, and renal dysfunction. Lab Interpretation (test code = 91133-3) [facility]normal [facility] CenterPOCT [facility]SE (AUT[facility]ATED)2025-04-26 00:11:42* Test Item Value Reference Range Interpretation Comme [facility] POCT GLU (test code = 3247460259) 43 mg/dL 70-110 LL Lab Interpretation (test cod e = 46023-9) Abnormal [facility] CenterETHANOL2025-06-04 00:06:28 ALCOHOL<10mg/dL04/25/2025 7:06 PM [facility]<10 Ryzvucon71-386 Toxic>100 Depression of ENTRY LEVEL RECRUITER>400 Fatalities ReportedUniversity Medical CenterSalicylate2025-06-04 00:06:28SALICYLATE<10mg/L04/25/2025 7:06 PM [facility]The[facility] Range: ? Analgesic and Antipyretic Use ? 20-100 mg/L ? ? Anti-Inflammatory Use ? 100-250 mg/L Toxic Range: ? Greater than 300 mg/LUnBaylor Scott & [facility] – McKinneyAcetaminophen2025-06-04 00:06:23* Test Item Value Reference Range Interpretation Comme nts ACETAMINOP (test code = 3129519103) 10.0-30.0 L RJ (test code = RJ) Toxic: Greater sima n 200 ug/mL @ 4 hour post ingestion or greater than 50 ug/mL @ 12 hour post ingestion Lab Interpretation (test code = 12537-9) [facility]normal [facility] CenterCOM. METABOLIC PANEL (86362)2025-04-26 00:03:49* Test Item Value Reference Range Interpretation Comme nts NA (test code = 4476800495) 138 mmol/L 135-145 K (test code = 1621789502) 3.8 mmol/L 3.5-5.0 CL (test code = 7643428590) 107 mmol/L 98-108 CO2 TOTAL (test code = 0797022032) 24 mmol/L 23-31 AGAP (test code = 9828048038) 7 2-16 BUN (test code = 2889215740) 20 mg/dL 7-23 GLUCOSE (test code = 1158430405) 41 mg/dL 70-110 LL CREATININE (test code = 2160-0) 1.12 mg/dL 0.60-1.25 TOTAL BILI (test code = 4947115814) 0.9 mg/dL 0.1-1.1 CALCIUM (test code = 9154498045) 8.6 mg/dL 8.6-10.6 T PROTEIN (test code = 1028378085) 6.2 g/dL 6.3-8.2 L ALBUMIN (test code = 7787845899) 3.4 g/dL 3.5-5.0 L ALK PHOS (test code = 7239575579) 115 U/L 34-122 ALTv (test code = 1742-6) 16 U/L 5-50 AST(SGOT) (test code = 2753397423) 39 U/L 13-40 eGFR (test code = 76365-1) 70.2 mL/min/1.73m2 CKD-EPI eGFR (2020). Assuming creatinine has been stable day-to-day for at least three months, the eGFR indicates Category G2 (60 - 89 mL/min/1.73 m2) Lab Interpretation (test code = 59286-5) Abnormal [facility] CenterMagnesium2025-06-04 00:02:43* Test Item Value Reference Range Interpretation Comme nts MAGNESIUM (test code = 2709908012) 1.8 mg/dL 1.7-2.4 Lab Interpretation (test cod e = 67549-1) Normal [facility] CenterLIPASE2025-06-04 00:02:23* Test Item Value Reference Range Interpretation Comme nts LIPASE (test code = 8576392608) 24 U/L 0-220 Lab Interpretation (test cod e = 80234-4) Normal [facility] CenterCreatine [id number] 00:02:22* Test Item Value Reference Range Interpretation Comme nts CK (test code = 6194106954) 663 U/L 33-194 H Lab Interpretation (test cod e = 71247-2) [facility]normal [facility] CenterCBC WITH [id number] 23:46:17* Test Item Value Reference Range Interpretation Comme nts WBC (test code = 6690-2) 11.97 4.20-10.70 H RBC (test code = 789-8) 3.57 4.26-5.52 L HGB (test code = 718-7) 10.1 g/dL 12.2-16.4 L HCT (test code = 4544-3) 30.9 % 38.4-49.3 L MCV (test code = 787-2) 86.6 fL 81.7-95.6 MCH (test code = 785-6) 28.3 pg 26.1-32.7 MCHC (test code = 786-4) 32.7 g/dL 31.2-35.0 RDW-SD (test code = 12053-9) 41.1 fL 38.5-51.6 RDW-CV (test code = 788-0) 13.1 % 12.1-15.4 PLT (test code = 777-3) 336 150-328 H MPV (test code = 08812-7) 9.8 fL 9.8-13.0 NRBC/100 WBC (test code = 7721827149) 0 0.0-10.0 NRBC x10^3 (test code = 7909560022) See_Comment [Automated messa ge] The system which generated this result transmitted reference range: 10*3/?L. The reference range was not used to interpret this result as normal/abnormal. GRAN MAT (NEUT) % (test code = 770-8) 83.4 % IMM GRAN % (test code = 2670156913) 0.7 % LYMPH % (test code = 736-9) 7 % MONO % (test code = 5905-5) 8.7 % EOS % (test code = 713-8) 0 % BASO % (test code = 706-2) 0.2 % GRAN MAT x10^3(ANC) (test code = 6140471392) 9.99 10*3/uL 1.99-6.95 H IMM GRAN x10^3 (test code = 0716832991) 0.08 10*3/uL 0.00-0.06 H LYMPH x10^3 (test code = 731-0) 0.84 10*3/uL 1.09-3.23 L MONO x10^3 (test code = 742-7) 1.04 10*3/uL 0.36-1.02 H EOS x10^3 (test code = 711-2) 0.06-0.53 L BASO x10^3 (test code = 704-7) 0.01-0.09 Lab Interpretation (test code = 06265-0) [facility] CenterCT [facility] wo [id number] 23:43:12CT HEAD WO CONTRAST, CT CERVICAL SPINE WO CONTRAST HISTORY: Male 70 years Mental status change, unknown cause COMPARISON: 04/20/2025 TECHNIQUE: Noncontrast CT images of the head and cervical spine withmultiplanar reformats. FINDINGS: Head:The ventricles and cerebral sulci are normal in size and configuration. Nointracranial abnormality such as hemorrhage, edema, mass-effect, midlineshift, hydrocephalus or pathologic extra axial fluid collection isappreciated. The basal cisterns are patent. Mild periventricular white matter hypoattenuation, non-specific but likelyreflecting chronic small vesselischemic changes. ?The vazquez-white matterdifferentiation is preserved. The calvarium and skull base are intact. Partial opacification of theethmoid air cells. Cervical:There is straightening of the normal cervical lordosis. Vertebral bodiesare normal in height and alignment. No acute fractures or subluxation seen. The prevertebral soft tissues are unremarkable.[facility] CenterCT [facility]ervical [facility] wo frtmsfky1410-11-48 23:43:12CT HEAD WO CONTRAST, CT CERVICAL SPINE WO CONTRAST HISTORY: Male 70 years Mental status change, unknown cause COMPARISON: 04/20/2025 TECHNIQUE: Noncontrast CT images of the head and cervical spine with multiplanar reformats. FINDINGS: Head:The ventricles and cerebral sulci are normal in size and configuration. Nointracranial abnormality such as hemorrhage, edema, mass-effect, midlineshift, hydrocephalus or pathologic extra axial fluid collection isappreciated. The basal cisterns are patent. Mild periventricular white matter hypoattenuation, non-specific but likelyreflecting chronic small vesselischemic changes. ?The vazquez-white matterdifferentiation is preserved. The calvarium and skull base are intact. Partial opacification of theethmoid air cells. Cervical:There is straightening of the normal cervical lordosis. Vertebral bodiesare normal in height and alignment. No acute fractures or sub luxation seen. The prevertebral soft tissues are unremarkable.[facility] [id number] 22:19:00Chelle Fernandez MD ? ? 04/26/2025 ?9:23 AMCritical Care Performed by: Chelle Fernandez MDAuthorized by: Chelle Fernandez MD ?Critical care provider statement: ?Critical care time (minutes): ?60 ?Critical care time was exclusive of: ?Separately billable procedures and treating other patients and teaching time ?Critical care was necessary to treat or prevent imminent or life-threatening deterioration of the following conditions: ?Metabolic crisis ?Critical care was time spent personally by me on the following activities: ?Development of treatment plan with patient or surrogate, evaluation of patient's response to treatment, examination of patient, obtaining history from patient or surrogate, ordering and performing treatments and interventions, ordering and review of laboratory studies, order ing and review of radiographic studies, pulse oximetry, re-evaluation of patient's condition and review of old charts ?Care discussed with: admitting provider ?Comments: ? Due to a high probability of clinically significant, life threatening deterioration, the patient required my highest level of preparedness to intervene emergently and I personally spent this critical care time directly and personally managing the patient. This critical care time included obtaining a history; examining the patient; pulse oximetry; ordering and review of studies; arranging urgent treatment with development ofa management plan; evaluation of patient's response to treatment; frequent reassessment; and, discussions with other providers.This critical care time was performed to assess and manage the high probability of imminent, life-threatening deterioration that could result in multi-organ failure. It wasexclusive of separately billable procedures and treating other patients.[facility] CenterCT Cervical spine wo aiakrggt0493-53-58 13:10:21CT HEAD WO CONTRAST, CT CERVICAL SPINE WO CONTRAST HISTORY: Fell from seated wheelchair. COMPARISON: CT head dated 06/23/2024 TECHNIQUE: Noncontrast axial images of the head and cervical spine, withcoronal and sagittal reformats. FINDINGS: The ventricles and cerebral sulci are normal in caliber and configuration.No hydrocephalus, midline shift or pathological extra-axial fluidcollection is present.The basal cisterns are unremarkable. There is no acute intracranial hemorrhage or significant mass e ffect.Periventricular and patchy deep white matter hypoattenuation is nonspecificand likely represents microvascular ischemic changes. The vazquez- whitematter. There was no worrisome bony or sinonasal process.. CT CERVICAL SPINE: Straightening of the cervical lordosis, exaggerated by patient positionin g.The vertebral bodies are normal in height and alignment. No acute fracture of the cervical spine.No traumatic malalignment of thecervical spine. This examination does not assess for ligamentous injury orstability. Multilevel degenerative changes of the cervical spine most conspicuous fromC4 to C6.. Visualized lung apices are unremarkable.[facility] CenterCT Head wo flvuljci7436-31-86 13:10:21CT HEAD WO CONTRAST, CT CERVICAL SPINE WO CONTRAST HISTORY: Fell from seated wheelchair. COMPARISON: CT head dated 06/23/2024 TECHNIQUE: Noncontrast axial images of the head and cervical spine, withcoronal and sagittal reformats. FINDINGS: The ventricles and cerebral sulci are normal in caliber and configuration.No hydrocephalus, midline shift or pathological extra-axial fluidcollection is present.The basal cisterns are unremarkable. There is no acute intracranial hemorrhage or significant mass e ffect.Periventricular and patchy deep white matter hypoattenuation is nonspecificand likely represents microvascular ischemic changes. The vazquez- whitematter. There was no worrisome bony or sinonasal process.. CT CERVICAL SPINE: Straightening of the cervical lordosis, exaggerated by patient positionin g.The vertebral bodies are normal in height and alignment. No acute fracture of the cervical spine.No traumatic malalignment of thecervical spine. This examination does not assess for ligamentous injury orstability. Multilevel degenerative changes of the cervical spine most conspicuous fromC4 to C6.. Visualized lung apices are unremarkable.[facility] with Knkl1053-24-90 12:52:37* Test Item Value Reference Range Interpretation Comme nts WBC (test code = 6690-2) 5.22 4.20-10.70 RBC (test code = 789-8) 4.1 4.26-5.52 L HGB (test code = 718-7) 11.5 g/dL 12.2-16.4 L HCT (test code = 4544-3) 35.7 % 38.4-49.3 L MCV (test code = 787-2) 87.1 fL 81.7-95.6 MCH (test code = 785-6) 28 pg 26.1-32.7 MCHC (test code = 786-4) 32.2 g/dL 31.2-35.0 RDW-SD (test code = 32745-2) 42.9 fL 38.5-51.6 RDW-CV (test code = 788-0) 13.4 % 12.1-15.4 PLT (test code = 777-3) 178 150-328 MPV (test code = 46559-9) 11.1 fL 9.8-13.0 NRBC/100 WBC (test code = 3801560531) 0 0.0-10.0 NRBC x10^3 (test code = 6265549477) See_Comment [Automated Lust have it!a ge] The system which generated this result transmitted reference range: 10*3/?L. The reference range was not used to interpret this result as normal/abnormal. SEG % (test code = 65059-6) 56 % 33-76 BAND % (test code = 67853-3) 3 % 0-1 H META % (test code = 59147-3) 2 % <=0 H MYELO % (test code = 61867-5) 1 % <=0 H LYMPH % (test code = 86640-0) 27 % 14-54 MONO % (test code = 81449-2) 11 % 0-4 H ANC (test code = 753-4) 3.08 10*3/uL 1.99-6.95 Lab Interpretation (test code = 25174-4) [facility] 12:27:36* Test Item Value Reference Range Interpretation Comme nts TROPONIN I (test code = 3760087685) 0.007 ng/mL <=0.034 RJ (test code = [...] of biotin. Lab Interpretation (test code = 53415-3) Normal [facility]. Metabolic Panel (16192)2025-04-20 12:16:36* Test Item Value Reference Range Interpretation Comme nts NA (test code = 4985866711) 133 mmol/L 135-145 L K (test code = 3082377702) 4.3 mmol/L 3.5-5.0 CL (test code = 2446464474) 103 mmol/L 98-108 CO2 TOTAL (test code = 6026586981) 19 mmol/L 23-31 L AGAP (test code = 8694615717) 11 2-16 BUN (test code = 6962807167) 32 mg/dL 7-23 H GLUCOSE (test code = 9820657905) 132 mg/dL 70-110 H CREATININE (test code = 2160-0) 1.08 mg/dL 0.60-1.25 TOTAL BILI (test code = 0507110392) 0.6 mg/dL 0.1-1.1 CALCIUM (test code = 8083717416) 7.8 mg/dL 8.6-10.6 L T PROTEIN (test code = 9012750763) 6.5 g/dL 6.3-8.2 ALBUMIN (test code = 7405860762) 3.5 g/dL 3.5-5.0 ALK PHOS (test code = 4987728701) 104 U/L 34-122 ALTv (test code = 1742-6) 23 U/L 5-50 AST(SGOT) (test code = 4582320131) 27 U/L 13-40 eGFR (test code = 08831-7) 73.4 mL/min/1.73m2 CKD-EPI eGFR (2020). Assuming creatinine has been stable day-to-day for at least three months, the eGFR indicates Category G2 (60 - 89 mL/min/1.73 m2) Lab Interpretation (test code = 71950-3) Abnormal [facility] GLUCOSE (AUTOMATED)2025-04-20 11:45:19* Test Item Value Reference Range Interpretation Comme [facility] POCT GLU (test code = 3906729404) 146 mg/dL 70-110 H Lab Interpretation (test cod e = 57784-1) Abnormal [facility] Ymezceq5045-76-43 08:37:47* Test Item Value Reference Range Interpretation Comme nts POC Glu (test code = 8035146263) 167 mg/dL 70-99 H POC Performing Location (imani t code = 7617794852) [place] [address] Lab Interpretation (test cod e = 60814-5) Abnormal [facility] Ayfgdij3672-73-59 17:39:08* Test Item Value Reference Range Interpretation Comme nts POC Glu (test code = 5508995601) 224 mg/dL 70-99 H POC Glu Comment 1 (test code = 0478013790) Notified RN/MD POC Performing Location (imani t code = 2586892008) [facility] Lab Interpretation (test cod e = 95458-9) Abnormal [facility] Vrufcbi7748-80-99 14:38:47* Test Item Value Reference Range Interpretation Comme nts POC Glu (test code = 4067490216) 184 mg/dL 70-99 H POC Performing Location (imani t code = 1000481999) [facility] Lab Interpretation (test cod e = 85498-2) Abnormal [facility] Wznpwyg3799-69-53 08:23:44* Test Item Value Reference Range Interpretation Comme nts POC Glu (test code = 4959000309) 142 mg/dL 70-99 H POC Glu Comment 1 (test code = 4640141939) Notified RN/MD POC Performing Location (imani t code = 8990942198) [place] [address] Lab Interpretation (test cod e = 47047-7) Abnormal [facility] 12 lead (arrhythmia)2025-04-11 19:39:17* Test Item Value Reference Range Interpretation Comme nts Ventricular Rate (test code = 7870689006) BPM Atrial Rate (test code = 7519471795) BPM RI Interval (test code = 3934900143) 152 ms QRS Duration (test code = 6123752953) 86 ms QT/QTc (test code = 9947748496) 390 ms QTc Calculation (test code = 1679911279) 412 ms P-[place] (test code = 1753345114) degrees R-[place] (test code = 9973659151) degrees T-[place] (test code = 5376655367) degrees IMP (test code = IMP) PXN (test code = PXN) [facility] Dltjnvt8446-13-02 17:10:20* Test Item Value Reference Range Interpretation Comme nts POC Glu (test code = 6244451830) 186 mg/dL 70-99 H POC Glu Comment 1 (test code = 4343914587) Notified RN/MD POC Performing Location (imani t code = 2011451939) [place] [address] Lab Interpretation (test cod e = 75177-5) Abnormal [facility] Aamifgu8794-78-27 18:32:59* Test Item Value Reference Range Interpretation Comme nts POC Glu (test code = 7360243999) 84 mg/dL 70-99 POC Performing Location (imani t code = 3882801460) [facility] Faoulpy8493-14-64 14:18:26* Test Item Value Reference Range Interpretation Comme nts POC Glu (test code = 4218197563) 84 mg/dL 70-99 POC Performing Location (imani t code = 2734694720) [facility] Locvehl9833-92-99 07:46:54* Test Item Value Reference Range Interpretation Comme nts POC Glu (test code = 8128254422) 197 mg/dL 70-99 H POC Performing Location (imani t code = 7797620315) ER/EDTU Lab Interpretation (test cod e = 64794-5) Abnormal [facility] GLUCOSE (AUTOMATED)2024-08-25 16:36:35* Test Item Value Reference Range Interpretation Comme nts POCT GLU (test code = 8847788391) 304 mg/dL 70-110 H Lab Interpretation (test cod e = 31686-4) Abnormal [facility] GLUCOSE (AUTOMATED)2024-08-25 01:27:39* Test Item Value Reference Range Interpretation Comme nts POCT GLU (test code = 8622057171) 134 mg/dL 70-110 H Lab Interpretation (test cod e = 90782-4) Abnormal [facility] GLUCOSE (AUTOMATED)2024-08-24 23:32:04* Test Item Value Reference Range Interpretation Comme nts POCT GLU (test code = 6459216064) 103 mg/dL 70-110 Lab Interpretation (test cod e = 42035-1) Normal [facility] GLUCOSE (AUTOMATED)2024-08-24 21:25:39* Test Item Value Reference Range Interpretation Comme nts POCT GLU (test code = 6204974181) 175 mg/dL 70-110 H Lab Interpretation (test cod e = 62584-1) Abnormal [facility] GLUCOSE (AUTOMATED)2024-08-24 19:29:36* Test Item Value Reference Range Interpretation Comme nts POCT GLU (test code = 9102550229) 224 mg/dL 70-110 H Lab Interpretation (test cod e = 01609-8) Abnormal [facility] GLUCOSE (AUTOMATED)2024-08-24 18:32:07* Test Item Value Reference Range Interpretation Comme nts POCT GLU (test code = 4113481020) 269 mg/dL 70-110 H Lab Interpretation (test cod e = 38787-6) Abnormal [facility] GLUCOSE (AUTOMATED)2024-08-24 17:47:07* Test Item Value Reference Range Interpretation Comme nts POCT GLU (test code = 3993247935) 202 mg/dL 70-110 H Lab Interpretation (test cod e = 43337-2) Abnormal [facility] GLUCOSE (AUTOMATED)2024-08-24 16:29:35* Test Item Value Reference Range Interpretation Comme nts POCT GLU (test code = 4022454119) 224 mg/dL 70-110 H Lab Interpretation (test cod e = 04139-7) Abnormal [facility] GLUCOSE (AUTOMATED)2024-08-24 15:25:37* Test Item Value Reference Range Interpretation Comme nts POCT GLU (test code = 3682285539) 206 mg/dL 70-110 H Lab Interpretation (test cod e = 97639-7) Abnormal [facility] GLUCOSE (AUTOMATED)2024-08-24 14:25:36* Test Item Value Reference Range Interpretation Comme nts POCT GLU (test code = 2459467194) 148 mg/dL 70-110 H Lab Interpretation (test cod e = 20946-1) Abnormal [facility] GLUCOSE (AUTOMATED)2024-08-24 13:32:06* Test Item Value Reference Range Interpretation Comme nts POCT GLU (test code = 6100962244) 87 mg/dL 70-110 Lab Interpretation (test cod e = 87347-1) Normal [facility] GLUCOSE (AUTOMATED)2024-08-24 12:30:07* Test Item Value Reference Range Interpretation Comme nts POCT GLU (test code = 4803656834) 87 mg/dL 70-110 Lab Interpretation (test cod e = 73067-7) Normal [facility] GLUCOSE (AUTOMATED)2024-08-24 11:39:08* Test Item Value Reference Range Interpretation Comme nts POCT GLU (test code = 3385400529) 82 mg/dL 70-110 Lab Interpretation (test cod e = 42408-4) Normal [facility] GLUCOSE (AUTOMATED)2024-08-24 10:33:04* Test Item Value Reference Range Interpretation Comme nts POCT GLU (test code = 6789787949) 83 mg/dL 70-110 Lab Interpretation (test cod e = 46255-2) Normal [facility] GLUCOSE (AUTOMATED)2024-08-24 09:21:05* Test Item Value Reference Range Interpretation Comme nts POCT GLU (test code = 1546077941) 80 mg/dL 70-110 Lab Interpretation (test cod e = 10943-9) Normal [facility] GLUCOSE (AUTOMATED)2024-08-24 08:32:34* Test Item Value Reference Range Interpretation Comme nts POCT GLU (test code = 7529629531) 86 mg/dL 70-110 Lab Interpretation (test cod e = 77483-3) Normal [facility] GLUCOSE (AUTOMATED)2024-08-24 07:42:04* Test Item Value Reference Range Interpretation Comme nts POCT GLU (test code = 0225915302) 91 mg/dL 70-110 Lab Interpretation (test cod e = 77266-4) Normal [facility] GLUCOSE (AUTOMATED)2024-08-24 06:35:32* Test Item Value Reference Range Interpretation Comme nts POCT GLU (test code = 3358269756) 83 mg/dL 70-110 Lab Interpretation (test cod e = 34515-5) [facility] Bpg-Nwi2854-71-02 05:50:54* Test Item Value Reference Range Interpretation Comme nts NT-proBNP (test code = 10781-0) 181 pg/mL <=125 RJ (test code = RJ) Result Indeterminate-Consid er causes of NT-proBNP elevation other than Heart failure such as acute coronary syndrome, pulmonary embolism, pulmonary hypertension, sepsis, stroke, and renal dysfunction. Lab Interpretation (test code = 61098-4) Abnormal [facility] GLUCOSE (AUTOMATED)2024-08-24 05:19:32* Test Item Value Reference Range Interpretation Comme nts POCT GLU (test code = 5134684751) 91 mg/dL 70-110 Lab Interpretation (test cod e = 55701-3) Normal [facility] GLUCOSE (AUTOMATED)2024-08-24 04:25:02* Test Item Value Reference Range Interpretation Comme nts POCT GLU (test code = 6452135653) 104 mg/dL 70-110 Lab Interpretation (test cod e = 81143-8) Normal [facility] GLUCOSE (AUTOMATED)2024-08-24 03:30:06* Test Item Value Reference Range Interpretation Comme nts POCT GLU (test code = 8577728463) 81 mg/dL 70-110 Lab Interpretation (test cod e = 39878-0) Normal [facility] GLUCOSE (AUTOMATED)2024-08-24 02:33:07* Test Item Value Reference Range Interpretation Comme nts POCT GLU (test code = 2594320337) 104 mg/dL 70-110 Lab Interpretation (test cod e = 27860-0) Normal [facility] GLUCOSE (AUTOMATED)2024-08-24 01:43:39* Test Item Value Reference Range Interpretation Comme nts POCT GLU (test code = 8642242948) 91 mg/dL 70-110 Lab Interpretation (test cod e = 58646-5) Normal [facility] GLUCOSE (AUTOMATED)2024-08-24 00:29:59* Test Item Value Reference Range Interpretation Comme nts POCT GLU (test code = 8994914160) 86 mg/dL 70-110 Lab Interpretation (test cod e = 04119-7) Normal [facility] GLUCOSE (AUTOMATED)2024-08-23 23:40:37* Test Item Value Reference Range Interpretation Comme nts POCT GLU (test code = 5813593627) 107 mg/dL 70-110 Lab Interpretation (test cod e = 61247-5) Normal [facility] GLUCOSE (AUTOMATED)2024-08-23 23:19:03* Test Item Value Reference Range Interpretation Comme nts POCT GLU (test code = 1485061214) 105 mg/dL 70-110 Lab Interpretation (test cod e = 04009-4) Normal [facility] GLUCOSE (AUTOMATED)2024-08-23 22:17:36* Test Item Value Reference Range Interpretation Comme nts POCT GLU (test code = 8600108444) 77 mg/dL 70-110 Lab Interpretation (test cod e = 19290-3) Normal [facility] GLUCOSE (AUTOMATED)2024-08-23 21:24:08* Test Item Value Reference Range Interpretation Comme nts POCT GLU (test code = 0022018824) 70 mg/dL 70-110 Lab Interpretation (test cod e = 36691-9) Normal [facility] GLUCOSE (AUTOMATED)2024-08-23 20:19:04* Test Item Value Reference Range Interpretation Comme nts POCT GLU (test code = 9532156216) 109 mg/dL 70-110 Lab Interpretation (test cod e = 15093-0) Normal [facility] GLUCOSE (AUTOMATED)2024-08-23 19:30:02* Test Item Value Reference Range Interpretation Comme nts POCT GLU (test code = 9351499543) 134 mg/dL 70-110 H Lab Interpretation (test cod e = 23957-8) Abnormal [facility] GLUCOSE (AUTOMATED)2024-08-23 17:00:32* Test Item Value Reference Range Interpretation Comme nts POCT GLU (test code = 7565907102) 119 mg/dL 70-110 H Lab Interpretation (test cod e = 95444-1) Abnormal [facility] Glucose (Age >30 Days)2024-08-23 16:05:00 * Test Item Value Reference Range Interpretation Comme nts POCT Glu (age>30days) (test code = 3342) 123 mg/dL 70-110 A ED provider informed Lab Interpretation (test code = 69798-4) Abnormal [facility] GLUCOSE(AGE >30DAYS)2024-08-23 15:55:00* Test Item Value Reference Range Interpretation Comme nts Lab Interpretation (test cod e = 21771-2) Normal [facility] GLUCOSE (AUTOMATED)2024-08-23 15:51:32* Test Item Value Reference Range Interpretation Comme nts POCT GLU (test code = 2396020483) 38 mg/dL 70-110 LL Lab Interpretation (test cod e = 46682-6) Abnormal [facility]. Metabolic Panel (04753)2024-08-23 15:18:48* Test Item Value Reference Range Interpretation Comme nts NA (test code = 7981167109) 136 mmol/L 135-145 K (test code = 7522597489) 3.6 mmol/L 3.5-5.0 CL (test code = 1627582204) 106 mmol/L 98-108 CO2 TOTAL (test code = 6663536673) 19 mmol/L 23-31 L AGAP (test code = 6205854729) 11 2-16 BUN (test code = 0561193862) 54 mg/dL 7-23 H GLUCOSE (test code = 5112876652) 56 mg/dL 70-110 L CREATININE (test code = 2160-0) 1.51 mg/dL 0.60-1.25 H TOTAL BILI (test code = 8756786707) 0.4 mg/dL 0.1-1.1 CALCIUM (test code = 5650078972) 9.0 mg/dL 8.6-10.6 T PROTEIN (test code = 9313438818) 7.4 g/dL 6.3-8.2 ALBUMIN (test code = 7840267793) 4.3 g/dL 3.5-5.0 ALK PHOS (test code = 3947048091) 85 U/L 34-122 ALTv (test code = 1742-6) 24 U/L 5-50 AST(SGOT) (test code = 1189270833) 22 U/L 13-40 eGFR (test code = 10224-2) 49.4 mL/min/1.73m2 CKD-EPI eGFR (2020). Assuming creatinine has been stable day-to-day for at least three months, the eGFR indicates Category G3a (45 - 59 mL/min/1.73 m2) Lab Interpretation (test code = 61948-3) Abnormal [facility] with Pqtn2922-15-66 14:58:25* Test Item Value Reference Range Interpretation [...] 32.5 g/dL 31.2-35.0 RDW-SD (test code = 23146-3) 47.4 fL 38.5-51.6 RDW-CV (test code = 788-0) 14.5 % 12.1-15.4 PLT (test code = 777-3) 251 150-328 MPV (test code = 43811-4) 9.6 fL 9.8-13.0 L NRBC/100 WBC (test code = 0392611907) 0.0 0.0-10.0 NRBC x10^3 (test code = 5647690272) See_Comment [Automated message] The system which generated this result transmitted reference range: 10*3/?L. The reference range was not used to interpret this result as normal/abnormal. GRAN MAT (NEUT) % (test code = 770-8) 88.2 % IMM GRAN % (test code = 4858375741) 0.90 % LYMPH % (test code = 736-9) 4.8 % MONO % (test code = 5905-5) 5.8 % EOS % (test code = 713-8) 0.0 % BASO % (test code = 706-2) 0.3 % GRAN MAT x10^3(ANC) (test code = 6653333497) 10.04 10*3/uL 1.99-6.95 H IMM GRAN x10^3 (test code = 7913227251) 0.10 10*3/uL 0.00-0.06 H LYMPH x10^3 (test code = 731-0) 0.55 10*3/uL 1.09-3.23 L MONO x10^3 (test code = 742-7) 0.66 10*3/uL 0.36-1.02 EOS x10^3 (test code = 711-2) 0.06-0.53 L BASO x10^3 (test code = 704-7) 0.03 10*3/uL 0.01-0.09 Lab Interpretation (test code = 08615-0) [facility] 14:57:59* Test Item Value Reference Range Interpretation Comme nts POCT GLU (test code = 6597940086) 78 mg/dL 70-110 Lab Interpretation (test cod e = 86792-9) [facility]+K+GLU[facility]CA2+2024-08-23 14:47:11* Test Item Value Reference Range Interpretation Comme nts PH (test code = 7297018411) 7.26 7.32-7.42 L PCO2 TATIANA (test code = 2674910115) 51 41-51 PO2 TATIANA (test code = 1788381968) 21 25-40 L HCO3 TATIANA (test code = 6250088538) 22 24-28 L AC VBE(BEAKER) (test code = 1680917256) -5.2 mEq/L THB TATIANA (test code = 4086856081) 12.4 g/dL 13.5-18.0 L %O2HB TATIANA (test code = 3265601599) 33.0 % 52.0-63.0 L %COHB TATIANA (test code = 6169295229) 0.1 % 0.0-1.5 %METHB TATIANA (test code = 3530064839) 1.1 % 0.4-1.5 VOL%O2 TATIANA (test code = 2247935197) 5.8 % 6.0-12.0 L NA (test code = 8357919235) 136 mmol/L 135-145 K+ (test code = 7272954329) 3.8 mmol/L 3.5-5.0 AC CA IONZ (test code = 9993013470) 5.00 mg/dL 4.50-5.30 GLUCOSE (test code = 1463241053) 46 mg/dL 70-110 LL Lab Interpretation (test cod e = 90398-8) [facility] Tvvve7101-36-50 14:45:07* Test Item Value Reference Range Interpretation Comme nts LACTIC ACID (test code = 5950956091) 1.25 mmol/L 0.50-2.20 Lab Interpretation (test cod e = 50972-3) Normal [facility] GLUCOSE (AUTOMATED)2024-08-23 14:38:03* Test Item Value Reference Range Interpretation Comme nts POCT GLU (test code = 1545953967) 57 mg/dL 70-110 L Lab Interpretation (test cod e = 66196-2) Abnormal [facility] GLUCOSE (AUTOMATED)2024-08-23 14:18:02* Test Item Value Reference Range Interpretation Comme nts POCT GLU (test code = 1715786338) 40 mg/dL 70-110 LL Lab Interpretation (test cod e = 53474-9) Abnormal [facility] GLUCOSE (AUTOMATED)2024-07-01 21:27:12* Test Item Value Reference Range Interpretation Comme nts POCT GLU (test code = 7458201452) 189 mg/dL 70-110 H Lab Interpretation (test cod e = 63673-3) Abnormal [facility] GLUCOSE (AUTOMATED)2024-07-01 17:43:43* Test Item Value Reference Range Interpretation Comme nts POCT GLU (test code = 6090947597) 252 mg/dL 70-110 H Lab Interpretation (test cod e = 40179-7) [facility] 13:20:21* Test Item Value Reference Range Interpretation Comme nts POCT GLU (test code = 9716188021) 157 mg/dL 70-110 H Lab Interpretation (test cod e = 55642-5) [facility]2024-07-01 00:48:27* Test Item Value Reference Range Interpretation Comme nts POCT GLU (test code = 9166968786) 202 mg/dL 70-110 H Lab Interpretation (test cod e = 76936-0) Abnormal [facility] GLUCOSE (AUTOMATED)2024-06-30 21:25:25* Test Item Value Reference Range Interpretation Comme nts POCT GLU (test code = 5040009865) 214 mg/dL 70-110 H Lab Interpretation (test cod e = 24826-2) Abnormal [facility] GLUCOSE (AUTOMATED)2024-06-30 16:15:38* Test Item Value Reference Range Interpretation Comme nts POCT GLU (test code = 5071442473) 294 mg/dL 70-110 H Lab Interpretation (test cod e = 21434-5) [facility]2024-06-30 12:52:21* Test Item Value Reference Range Interpretation Comme nts POCT GLU (test code = 2619056774) 143 mg/dL 70-110 H Lab Interpretation (test cod e = 35112-0) [facility]2024-06-30 02:04:07* Test Item Value Reference Range Interpretation Comme nts POCT GLU (test code = 8019500331) 270 mg/dL 70-110 H Lab Interpretation (test cod e = 54529-1) [facility]2024-06-29 21:21:05* Test Item Value Reference Range Interpretation Comme nts POCT GLU (test code = 1663556755) 154 mg/dL 70-110 H Lab Interpretation (test cod e = 75343-0) Abnormal [facility] GLUCOSE (AUTOMATED)2024-06-29 16:43:53* Test Item Value Reference Range Interpretation Comme nts POCT GLU (test code = 4569557847) 246 mg/dL 70-110 H Lab Interpretation (test cod e = 52189-3) Abnormal [facility] GLUCOSE (AUTOMATED)2024-06-29 12:45:39* Test Item Value Reference Range Interpretation Comme nts POCT GLU (test code = 7683140926) 242 mg/dL 70-110 H Lab Interpretation (test cod e = 66417-6) Abnormal [facility] GLUCOSE (AUTOMATED)2024-06-29 02:41:42* Test Item Value Reference Range Interpretation Comme nts POCT GLU (test code = 1981523633) 218 mg/dL 70-110 H Lab Interpretation (test cod e = 77478-7) Abnormal [facility] GLUCOSE (AUTOMATED)2024-06-28 22:50:05* Test Item Value Reference Range Interpretation Comme nts POCT GLU (test code = 7793548049) 162 mg/dL 70-110 H Lab Interpretation (test cod e = 05950-6) Abnormal [facility] GLUCOSE (AUTOMATED)2024-06-28 21:57:09* Test Item Value Reference Range Interpretation Comme nts POCT GLU (test code = 2604903982) 121 mg/dL 70-110 H Lab Interpretation (test cod e = 00850-2) Abnormal [facility] GLUCOSE (AUTOMATED)2024-06-28 16:58:11* Test Item Value Reference Range Interpretation Comme nts POCT GLU (test code = 3419138160) 255 mg/dL 70-110 H Lab Interpretation (test cod e = 74850-0) Abnormal [facility] GLUCOSE (AUTOMATED)2024-06-28 13:03:41* Test Item Value Reference Range Interpretation Comme nts POCT GLU (test code = 3147149083) 152 mg/dL 70-110 H Lab Interpretation (test cod e = 62421-1) Abnormal [facility] GLUCOSE (AUTOMATED)2024-06-28 05:08:20* Test Item Value Reference Range Interpretation Comme nts POCT GLU (test code = 1930874234) 195 mg/dL 70-110 H Lab Interpretation (test cod e = 19801-1) Abnormal [facility] GLUCOSE (AUTOMATED)2024-06-28 02:11:33* Test Item Value Reference Range Interpretation Comme [facility] POCT GLU (test code = 5847643240) 321 mg/dL 70-110 H Lab Interpretation (test cod e = 00850-6) [facility] [id number] 22:39:10ORDERING PHYSICIAN: JOVANNA SANDRA. HISTORY: L PICC placement TECHNIQUE: AP COMPARISON: 06/19/2024 radiograph report FINDINGS: Lungs: ?A left PICC line terminates at the cavoatrial junction. Lungs areclear. Pleura: ?No effusion or pleural disease is seen. ?No pneumothorax. Mediastinum/Daysi: ?No masses or adenopathy. Heart: ?The heart is not enlarged. Other: ?No acute osseous abnormality is seen.[facility] 21:59:58* Test Item Value Reference Range Interpretation Comme [facility] POCT GLU (test code = 0967181900) 196 mg/dL 70-110 H Lab Interpretation (test cod e = 57641-0) [facility]2024-06-27 21:33:03 * Test Item Value Reference Range Interpretation Comme nts Height (test code = 6090714298) 70 in Weight (test code = 7212824383) 195 lbs Systolic BP (test code = 3200925454) 124 mmHg Diastolic BP (test code = 4773979485) 63 mmHg Heart Rate (test code = 0196883426) 64 bpm BSA (test code = 3008622727) 2.06 m2 Radiology Study observation (narrative) (test code = 89841-3) RJ (test code = RJ) ?Left?Ventricle: Left [...] shunt. The probe was inserted by the tie cutter. There was no probe insertion difficulty.There were 1 attempts to insert the probe. Probe in 1216. Probe out 1229. Sedation and monitoring provided by anesthesia, see Epic documentation. There were no complications during the procedure. [facility] GLUCOSE (AUTOMATED)2024-06-27 19:49:24* Test Item Value Reference Range Interpretation Comme nts POCT GLU (test code = 5041522160) 184 mg/dL 70-110 H Lab Interpretation (test cod e = 41369-1) Abnormal [facility] GLUCOSE (AUTOMATED)2024-06-27 16:43:02* Test Item Value Reference Range Interpretation Comme nts POCT GLU (test code = 5066846862) 172 mg/dL 70-110 H Lab Interpretation (test cod e = 22862-2) Abnormal [facility] GLUCOSE (AUTOMATED)2024-06-27 14:14:12* Test Item Value Reference Range Interpretation Comme nts POCT GLU (test code = 4642070715) 131 mg/dL 70-110 H Lab Interpretation (test cod e = 34038-1) Abnormal [facility] GLUCOSE (AUTOMATED)2024-06-27 13:27:58* Test Item Value Reference Range Interpretation Comme nts POCT GLU (test code = 8426905359) 135 mg/dL 70-110 H Lab Interpretation (test cod e = 32547-6) Abnormal [facility] GLUCOSE (AUTOMATED)2024-06-27 01:38:29* Test Item Value Reference Range Interpretation Comme nts POCT GLU (test code = 8853016624) 125 mg/dL 70-110 H Lab Interpretation (test cod e = 57448-6) Abnormal [facility] GLUCOSE (AUTOMATED)2024-06-26 22:04:43* Test Item Value Reference Range Interpretation Comme nts POCT GLU (test code = 9003016723) 195 mg/dL 70-110 H Lab Interpretation (test cod e = 55529-2) Abnormal [facility] GLUCOSE (AUTOMATED)2024-06-26 17:27:34* Test Item Value Reference Range Interpretation Comme nts POCT GLU (test code = 9408493210) 181 mg/dL 70-110 H Lab Interpretation (test cod e = 69439-6) Abnormal [facility] GLUCOSE (AUTOMATED)2024-06-26 13:21:13* Test Item Value Reference Range Interpretation Comme nts POCT GLU (test code = 4977614660) 109 mg/dL 70-110 Lab Interpretation (test cod e = 84128-5) Normal [facility] GLUCOSE (AUTOMATED)2024-06-26 02:30:05* Test Item Value Reference Range Interpretation Comme nts POCT GLU (test code = 7058790493) 146 mg/dL 70-110 H Lab Interpretation (test cod e = 67160-2) Abnormal [facility] GLUCOSE (AUTOMATED)2024-06-25 21:46:31* Test Item Value Reference Range Interpretation Comme nts POCT GLU (test code = 0579921427) 99 mg/dL 70-110 Lab Interpretation (test cod e = 52020-2) Normal [facility] GLUCOSE (AUTOMATED)2024-06-25 16:57:02* Test Item Value Reference Range Interpretation Comme nts POCT GLU (test code = 9201181084) 147 mg/dL 70-110 H Lab Interpretation (test cod e = 32883-8) Abnormal [facility] GLUCOSE (AUTOMATED)2024-06-25 13:21:57* Test Item Value Reference Range Interpretation Comme nts POCT GLU (test code = 6115094084) 123 mg/dL 70-110 H Lab Interpretation (test cod e = 58259-3) Abnormal [facility] GLUCOSE (AUTOMATED)2024-06-25 00:59:00* Test Item Value Reference Range Interpretation Comme nts POCT GLU (test code = 3024535473) 144 mg/dL 70-110 H Lab Interpretation (test cod e = 43132-3) Abnormal [facility] GLUCOSE (AUTOMATED)2024-06-24 22:08:33* Test Item Value Reference Range Interpretation Comme nts POCT GLU (test code = 8342731933) 162 mg/dL 70-110 H Lab Interpretation (test cod e = 04666-6) Abnormal [facility] GLUCOSE (AUTOMATED)2024-06-24 17:10:12* Test Item Value Reference Range Interpretation Comme nts POCT GLU (test code = 8171051030) 187 mg/dL 70-110 H Lab Interpretation (test cod e = 51645-8) Abnormal [facility] GLUCOSE (AUTOMATED)2024-06-24 13:28:01* Test Item Value Reference Range Interpretation Comme nts POCT GLU (test code = 6937412732) 160 mg/dL 70-110 H Lab Interpretation (test cod e = 18166-7) Abnormal [facility] GLUCOSE (AUTOMATED)2024-06-24 01:00:38* Test Item Value Reference Range Interpretation Comme nts POCT GLU (test code = 1892884299) 95 mg/dL 70-110 Lab Interpretation (test cod e = 80778-5) [facility].2024-[facility]-23 22:45:24* Test Item Value Reference Range Interpretation Comme nts PH (test code = 2) 7.42 7.35-7.45 PCO2 (test code = 6468001866) 42 35-45 PO2 (test code = 5249924976) 90 80-100 HCO3 (test code = 9987334932) 27 22-26 H BE (test code = 7614175617) 2.3 -3.0-3.0 Lab Interpretation (test cod e = 12378-6) [facility]normal [facility] ([facility]E) [id number] 22:12:07* Test Item Value Reference Range Interpretation Comme nts Height (test code = 3554713528) 70 in Weight (test code = 6752629071) 202 lbs Systolic BP (test code = 2039059141) 187 mmHg Diastolic BP (test code = 9346874457) 89 mmHg Heart Rate (test code = 4455974474) 84 bpm LV GLS Endo Peak A2C () (test code = 5140016902) -22.00 % LV GLS Endo Peak A3C () (test code = 6129249010) -20.60 % LV GLS Endo Peak A4C () (test code = 6860099288) -24.20 % LV GLS Endo Peak Avg () (test code = 4048920925) -22.30 % BSA (test code = 8417658272) 2.10 m2 Ao root diam (test code = 4980207698) 4.10 cm Aortic root (test code = 1950202023) 4.1 cm Ao root annulus (test code = 5320481663) 4.1 cm LVOT diameter (test code = 5897934247) 2.02 cm LVOT area (test code = 6807779664) 3.20 cm2 LA size (test code = 1538588825) 2.9 cm LVIDD (test code = 1934779004) 4.20 cm Left Ventricular End Diastolic Volume by Teichholz Method (test code = 0872129) 77.8 mL IVS (test code = 2373489642) 0.97 cm Interventricular Septum Diastolic Thickness by 2D (test code = 3386905) 0.97 cm LVPWD (test code = 7182688798) 0.99 cm PW (test code = 7037641672) 0.99 cm 0.6-1.1 EF(Teich) (test code = 6070538992) 63.90 % LVIDS (test code = 7688197610) 2.70 cm Left Ventricular End Systolic Volume by Teichholz Method (test code = 8692649) 28.1 mL FS (test code = 8777332398) 34 % EF - 2D (test code = 12572058) 63.90 % LAV(MOD-sp4) (test code = 1712289406) 70.90 mL E wave decelartion time (test code = 9277823094) 0.25 s MV Peak A Delfino (test code = 4660493216) 117.4 cm/s MV stenosis pressure 1/2 time (test code = 6341705233) 71.2 ms MV Prop V (test code = 6350893365) 40.80 cm/s MV E/e' septal (test code = 5679543497) 8.2 cm/s Tapse (test code = 4525247229) 2.09 cm LVOT stroke volume (test code = 2895192111) 94.10 cm3 LVOT peak delfino (test code = 1634519660) 126.8 cm/s LVOT mn grad (test code = 1297929973) 3.4 mmHg AV LVOT peak gradient (test code = 3664284785) 6.4 mmHg LVOT peak VTI (test code = 6463895933) 29.4 cm LV V1 mean (test code = 7765176944) 87.90 cm/s Aortic valve mean velocity (test code = 2254591420) 102.8 cm/s Ao peak delfino (test code = 4988578729) 154.7 cm/s Ao VTI (test code = 4490669039) 32.2 cm AV area by cont VTI (test code = 7091744610) 2.9 cm2 AV area peak delfino (test code = 4588727041) 2.6 cm2 Ao max PG (test code = 4035470408) 9.60 mm[Hg] AV peak gradient (test code = 5395011667) 9.6 mmHg AV valve area (test code = 6401169038) 2.90 cm2 AV mean gradient (test code = 8809349367) 4.7 mmHg Radiology Study observation (narrative) (test code = 37057-7) RJ (test code = RJ) ?Left?Ventricle: Left [...] color flow Doppler, spectral Doppler and strain. [facility] 22:04:17* Test Item Value Reference Range Interpretation Comme [facility] POCT GLU (test code = 3320820070) 120 mg/dL 70-110 H Lab Interpretation (test cod e = 15737-2) [facility]normal [facility] Center[facility]cosylated Hemoglobin (A1C)2024-06-23 19:21:32* Test Item Value Reference Range Interpretation Comme [facility] HGB A1C (test code = 4548-4) 7.5 % 4.0-5.7 H RJ (test code = RJ) Reference RangesNormal: <5.7%Prediabetes: 5.7 - 6.4%Diabetes: > 6.5% Lab Interpretation (test code = 86048-1) Abnormal [facility] CERVICAL SPINE WO [id number] 18:09:29CT CERVICAL SPINE WO CONTRAST HISTORY: ?Neck trauma (Age >= 65y) COMPARISON: CT cervical spine 04/03/2024 TECHNIQUE: Axial CT of the cervical spine was performed. Coronal andsagittal reformatted images were generated. FINDINGS: Straightening of the cervical lordosis. The vertebral bodies are renetat l inheight and in normal alignment. No facet fracture or subluxation ispresent. The craniocervical junction is intact. Degenerative changes of thecervical spine most notable at C5-C7. The prevertebral soft tissues areunremarkable.[facility] HEAD WO [id number] 18:05:47EXAM: CT HEAD WO CONTRAST HISTORY: 69 [...] contusion/small hematoma. calvarium and central skullbase are unremarkable.[facility] Center[facility] I 2024-06-23 17:58:20* Test Item Value Reference Range Interpretation Comme [facility] TROPONIN I (test code = 3016315025) <=0.034 RJ (test code = RJ) Reference [...] of biotin. Lab Interpretation (test code = 01263-8) Normal [facility]inal [id number] 17:55:37* Test Item Value Reference Range Interpretation Comme [facility] NT-proBNP (test code = 72990-6) 257 pg/mL <=125 RJ (test code = RJ) Result Indeterminate-Consid er causes of NT-proBNP elevation other than Heart failure such as acute coronary syndrome, pulmonary embolism, pulmonary hypertension, sepsis, stroke, and renal dysfunction. Lab Interpretation (test code = 39894-2) Abnormal [facility] CenterProthrombin Time / [id number] 17:48:39* Test Item Value Reference Range Interpretation Comme nts PROTIME PATIENT (test code = 5964-2) 12.8 10.1-12.6 H INR (test code = 6301-6) 1.1 Normal INR <1.1; Warfarin Therapeutic range 2.0 to 3.0 or 2.5 to 3.5, depending upon the indications. Lab Interpretation (test code = 04195-7) Abnormal [facility] CenterActivated Partial Thrmplas [id number] 17:48:39* Test Item Value Reference Range Interpretation Comme [facility] APTT Patient (test code = 3173-2) 32 26-36 RJ (test code = RJ) The [facility] patient population mean normal value for aPTT is 30 seconds. Lab Interpretation (test code = 88204-8) Normal [facility] Center[facility]. Metabolic Panel (80786)2024-06-23 17:46:57* Test Item Value Reference Range Interpretation Comme [facility] NA (test code = 2730047199) 139 mmol/L 135-145 K (test code = 1080674682) 3.5 3.5-5.0 CL (test code = 5736274699) 102 mmol/L 98-108 CO2 TOTAL (test code = 2717346016) 27 mmol/L 23-31 AGAP (test code = 2563256703) 10 2-16 BUN (test code = 8482278646) 25 mg/dL 7-23 H GLUCOSE (test code = 8796427718) 242 mg/dL 70-110 H CREATININE (test code = 2160-0) 1.00 mg/dL 0.60-1.25 TOTAL BILI (test code = 7098875255) 0.5 mg/dL 0.1-1.1 CALCIUM (test code = 1564162520) 8.8 mg/dL 8.6-10.6 T PROTEIN (test code = 1554444974) 7.3 g/dL 6.3-8.2 ALBUMIN (test code = 8357788718) 3.9 g/dL 3.5-5.0 ALK PHOS (test code = 4045436979) 141 U/L 34-122 H ALTv (test code = 1742-6) 16 U/L 5-50 AST(SGOT) (test code = 4782699554) 24 U/L 13-40 eGFR (test code = 02631-4) 81.0 mL/min/1.73m2 CKD-EPI eGFR (2020). Assuming creatinine has been stable day-to-day for at least three months, the eGFR indicates Category G2 (60 - 89 mL/min/1.73 m2) Lab Interpretation (test code = 32526-5) Abnormal [facility] with [id number] 17:38:39* Test Item Value Reference Range Interpretation [...] 31.6 g/dL 31.2-35.0 RDW-SD (test code = 96518-0) 44.2 fL 38.5-51.6 RDW-CV (test code = 788-0) 13.5 % 12.1-15.4 PLT (test code = 777-3) 346 150-328 H MPV (test code = 17495-8) 9.4 fL 9.8-13.0 L NRBC/100 WBC (test code = 7095545537) 0.0 0.0-10.0 NRBC x10^3 (test code = 4643785805) See_Comment [Automated Lust have it!a ge] The system which generated this result transmitted reference range: 10*3/?L. The reference range was not used to interpret this result as normal/abnormal. GRAN MAT (NEUT) % (test code = 770-8) 74.6 % IMM GRAN % (test code = 8600630737) 1.00 % LYMPH % (test code = 736-9) 15.2 % MONO % (test code = 5905-5) 7.7 % EOS % (test code = 713-8) 1.2 % BASO % (test code = 706-2) 0.3 % GRAN MAT x10^3(ANC) (test code = 7130169494) 6.71 10*3/uL 1.99-6.95 IMM GRAN x10^3 (test code = 0290572715) 0.09 10*3/uL 0.00-0.06 H LYMPH x10^3 (test code = 731-0) 1.37 10*3/uL 1.09-3.23 MONO x10^3 (test code = 742-7) 0.69 10*3/uL 0.36-1.02 EOS x10^3 (test code = 711-2) 0.11 10*3/uL 0.06-0.53 BASO x10^3 (test code = 704-7) 0.03 10*3/uL 0.01-0.09 Lab Interpretation (test code = 95861-2) Abnormal [facility] CenterL[facility] Acid Whole [id number] 17:16:12* Test Item Value Reference Range Interpretation Comme nts LACTIC ACID (test code = 4509169778) 1.94 mmol/L 0.50-2.20 Lab Interpretation (test cod e = 11713-1) Normal [facility] CenterBLOOD CULTURE [id number] 13:27:56* Test Item Value Reference Range Interpretation Comme nts Blood Culture-Aerobic (test code = 08409-0) Culture positive. See Blood Culture Workup for additional information. No growth AA Previous preliminary verified result was Order in Process on 06/19/2024 at 1801 CDT Blood Culture-Anaerobic (test code = 97393-6) Culture positive. See Blood Culture Workup for additional information. No growth AA Previous preliminary verified result was Order in Process on 06/19/2024 at 1801 CDT Lab Interpretation (test code = 79602-0) Abnormal [facility] CenterGRAM POSITIVE BLOOD PATHOGENS DNA [id number] 19:17:54* Test Item Value Reference Range Interpretation Comments Staphylococcus aureus (test code = 86020-6) Positive Negative A mecA (test code = 81974-7) Positive Negative A RJ (test code = RJ) MRSA detected by DNA probe. ?See blood culture result for additionalsusceptibility testing information. Preferred therapy for MRSA bacteremia is vancomycin. Infectious Diseases consultation is recommended. Please contact the Antimicrobial Stewardship Program with questions.[facility] Pager: ?[phone] See blood culture result for additional information. Testing included eleven identification and three resistancemarker targets. Lab Interpretation (test code = 81633-4) Abnormal [facility] GLUCOSE (AUTOMATED)2024-06-19 21:59:53* Test Item Value Reference Range Interpretation Comme nts POCT GLU (test code = 7219706941) 93 mg/dL 70-110 Lab Interpretation (test cod e = 44559-1) Normal [facility] GLUCOSE (AUTOMATED)2024-06-19 21:29:59* Test Item Value Reference Range Interpretation Comme nts POCT GLU (test code = 7079101902) 58 mg/dL 70-110 L Lab Interpretation (test cod e = 05059-8) Abnormal [facility] CenterN-Terminal [id number] 20:03:23* Test Item Value Reference Range Interpretation Comme nts NT-proBNP (test code = 45212-3) 269 pg/mL <=125 RJ (test code = RJ) Result Indeterminate-Consid er causes of NT-proBNP elevation other than Heart failure such as acute coronary syndrome, pulmonary embolism, pulmonary hypertension, sepsis, stroke, and renal dysfunction. Lab Interpretation (test code = 70660-4) Abnormal [facility]. Metabolic Panel (87523)2024-06-19 19:54:20* Test Item Value Reference Range Interpretation Comme nts NA (test code = 5293171197) 139 mmol/L 135-145 K (test code = 0606386453) 3.7 mmol/L 3.5-5.0 CL (test code = 7454456565) 104 mmol/L 98-108 CO2 TOTAL (test code = 5465630034) 29 mmol/L 23-31 AGAP (test code = 6183052918) 6 2-16 BUN (test code = 4965939072) 20 mg/dL 7-23 GLUCOSE (test code = 5134575473) 70 mg/dL 70-110 CREATININE (test code = 2160-0) 0.94 mg/dL 0.60-1.25 TOTAL BILI (test code = 8279487329) 1.0 mg/dL 0.1-1.1 CALCIUM (test code = 2581852706) 8.9 mg/dL 8.6-10.6 T PROTEIN (test code = 6453280459) 7.1 g/dL 6.3-8.2 ALBUMIN (test code = 5589218020) 3.5 g/dL 3.5-5.0 ALK PHOS (test code = 5051338607) 136 U/L 34-122 H ALTv (test code = 1742-6) 14 U/L 5-50 AST(SGOT) (test code = 3987739050) 29 U/L 13-40 eGFR (test code = 11672-2) 87.2 mL/min/1.73m2 CKD-EPI eGFR (2020). Assuming creatinine has been stable day-to-day for at least three months, the eGFR indicates Category G2 (60 - 89 mL/min/1.73 m2) Lab Interpretation (test code = 53589-0) [facility]normal [facility] CenterXR CHEST 1 [id number] 19:34:26PROCEDURE: XR CHEST 1 06/19/2024 2:07 PM CLINICAL INDICATION: hallucination COMPARISON: Radiograph of 04/03/2023 for FINDINGS: The lungs are hypoventilated which results and crowding of bronchovascularbundles. No lung consolidation. There is no pleural effusion. ?Nopneumothorax. The cardiac size is normal. No aggressive osseous lesion.[facility] CenterCbc with [id number] 19:29:38* Test Item Value Reference Range Interpretation [...] 32.7 g/dL 31.2-35.0 RDW-SD (test code = 13970-8) 43.8 fL 38.5-51.6 RDW-CV (test code = 788-0) 13.5 % 12.1-15.4 PLT (test code = 777-3) 300 150-328 MPV (test code = 93206-3) 9.5 fL 9.8-13.0 L NRBC/100 WBC (test code = 2546850653) 0.0 0.0-10.0 NRBC x10^3 (test code = 3275667005) See_Comment [Automated messa ge] The system which generated this result transmitted reference range: 10*3/?L. The reference range was not used to interpret this result as normal/abnormal. GRAN MAT (NEUT) % (test code = 770-8) 76.5 % IMM GRAN % (test code = 8399817123) 0.70 % LYMPH % (test code = 736-9) 12.6 % MONO % (test code = 5905-5) 8.4 % EOS % (test code = 713-8) 1.4 % BASO % (test code = 706-2) 0.4 % GRAN MAT x10^3(ANC) (test code = 8153760008) 6.95 10*3/uL 1.99-6.95 IMM GRAN x10^3 (test code = 5214243292) 0.06 10*3/uL 0.00-0.06 LYMPH x10^3 (test code = 731-0) 1.14 10*3/uL 1.09-3.23 MONO x10^3 (test code = 742-7) 0.76 10*3/uL 0.36-1.02 EOS x10^3 (test code = 711-2) 0.13 10*3/uL 0.06-0.53 BASO x10^3 (test code = 704-7) 0.04 10*3/uL 0.01-0.09 Lab Interpretation (test code = 38182-6) Abnormal [facility] CenterLactic Acid Whole [id number] 19:15:48* Test Item Value Reference Range Interpretation Comme nts LACTIC ACID (test code = 7380308392) 1.12 mmol/L 0.50-2.20 Lab Interpretation (test cod e = 96652-2) Normal [facility] CenterCT [facility] WO [id number] 00:30:51FULL RESULT: Examination: CT HEAD WO CONTRAST on 06/16/2024 7:03 PM Clinical Indication: Daily fallsComparison: 06/15/2024, 24 hour prior Technique: Noncontrast imaging was obtained from base to vertex. Findings: Relative to the previous day's exam, there is no interval changeand no evidence of hemorrhage or other acute or traumatic lesion.[facility]. Metabolic Panel (12349)2024-06-16 00:49:02* Test Item Value Reference Range Interpretation Comme nts NA (test code = 6227537967) 136 mmol/L 135-145 K (test code = 0110063820) 4.2 mmol/L 3.5-5.0 CL (test code = 7502161725) 103 mmol/L 98-108 CO2 TOTAL (test code = 1837566705) 28 mmol/L 23-31 AGAP (test code = 7340950822) 5 2-16 BUN (test code = 0636100891) 21 mg/dL 7-23 GLUCOSE (test code = 0530862169) 88 mg/dL 70-110 CREATININE (test code = 2160-0) 0.97 mg/dL 0.60-1.25 TOTAL BILI (test code = 8493857045) 1.0 mg/dL 0.1-1.1 CALCIUM (test code = 1138892109) 8.6 mg/dL 8.6-10.6 T PROTEIN (test code = 0605229699) 6.8 g/dL 6.3-8.2 ALBUMIN (test code = 5528570640) 3.4 g/dL 3.5-5.0 L ALK PHOS (test code = 3977070045) 141 U/L 34-122 H ALTv (test code = 1742-6) 14 U/L 5-50 AST(SGOT) (test code = 7205953839) 23 U/L 13-40 eGFR (test code = 50621-3) 84.0 mL/min/1.73m2 CKD-EPI eGFR (2020). Assuming creatinine has been stable day-to-day for at least three months, the eGFR indicates Category G2 (60 - 89 mL/min/1.73 m2) Lab Interpretation (test code = 85667-0) Abnormal [facility] CenterD-Uoccg8860-27-23 00:45:25* Test Item Value Reference Range Interpretation Comments D-DIMER (test code = 4067509346) 1.38 See_Comment H [Automated message] The system [...] a diagnosis. Lab Interpretation (test code = 49944-6) Abnormal [facility] CenterCbc with [id number] 00:34:02* Test Item Value Reference Range Interpretation [...] 33.1 g/dL 31.2-35.0 RDW-SD (test code = 69019-4) 43.0 fL 38.5-51.6 RDW-CV (test code = 788-0) 13.2 % 12.1-15.4 PLT (test code = 777-3) 241 150-328 MPV (test code = 32606-8) 9.6 fL 9.8-13.0 L NRBC/100 WBC (test code = 8226111637) 0.0 0.0-10.0 NRBC x10^3 (test code = 1740117166) See_Comment [Automated messa ge] The system which generated this result transmitted reference range: 10*3/?L. The reference range was not used to interpret this result as normal/abnormal. GRAN MAT (NEUT) % (test code = 770-8) 77.2 % IMM GRAN % (test code = 2988229078) 0.40 % LYMPH % (test code = 736-9) 11.2 % MONO % (test code = 5905-5) 10.1 % EOS % (test code = 713-8) 0.9 % BASO % (test code = 706-2) 0.2 % GRAN MAT x10^3(ANC) (test code = 5664530918) 8.18 10*3/uL 1.99-6.95 H IMM GRAN x10^3 (test code = 2364278519) 0.04 10*3/uL 0.00-0.06 LYMPH x10^3 (test code = 731-0) 1.18 10*3/uL 1.09-3.23 MONO x10^3 (test code = 742-7) 1.07 10*3/uL 0.36-1.02 H EOS x10^3 (test code = 711-2) 0.09 10*3/uL 0.06-0.53 BASO x10^3 (test code = 704-7) 0.01-0.09 Lab Interpretation (test code = 57767-3) Abnormal [facility] CenterLactic Acid Whole [id number] 00:22:09* Test Item Value Reference Range Interpretation Comme nts LACTIC ACID (test code = 4079769293) 1.33 mmol/L 0.50-2.20 Lab Interpretation (test cod e = 08049-2) Normal [facility] HEAD WO [id number] 23:53:17EXAM: CT HEAD WO CONTRAST HISTORY: 69 [...] clear. The calvariumand central skull base are unremarkable.[facility] GLUCOSE (AUTOMATED)2024-04-06 10:12:31* Test Item Value Reference Range Interpretation Comme nts POCT GLU (test code = 8183600111) 254 mg/dL 70-110 H Lab Interpretation (test cod e = 54365-4) Abnormal [facility] GLUCOSE (AUTOMATED)2024-04-06 09:35:12* Test Item Value Reference Range Interpretation Comme nts POCT GLU (test code = 6351686225) 349 mg/dL 70-110 H Lab Interpretation (test cod e = 09011-1) Abnormal [facility] GLUCOSE (AUTOMATED)2024-04-06 08:34:06* Test Item Value Reference Range Interpretation Comme nts POCT GLU (test code = 9478715095) 299 mg/dL 70-110 H Lab Interpretation (test cod e = 77932-9) Abnormal [facility] GLUCOSE (AUTOMATED)2024-04-06 07:58:40* Test Item Value Reference Range Interpretation Comme nts POCT GLU (test code = 9576595369) 446 mg/dL 70-110 H Lab Interpretation (test cod e = 07166-6) Abnormal [facility]. Metabolic Panel (86944)2024-04-06 07:47:06* Test Item Value Reference Range Interpretation Comme nts NA (test code = 0566354508) 126 mmol/L 135-145 L K (test code = 5308189312) 4.4 mmol/L 3.5-5.0 CL (test code = 4129999967) 93 mmol/L 98-108 L CO2 TOTAL (test code = 1164301392) 27 mmol/L 23-31 AGAP (test code = 2824131347) 6 2-16 BUN (test code = 2511745843) 21 mg/dL 7-23 GLUCOSE (test code = 6506781278) 518 mg/dL 70-110 HH CREATININE (test code = 2160-0) 1.08 mg/dL 0.60-1.25 TOTAL BILI (test code = 5366710175) 0.7 mg/dL 0.1-1.1 CALCIUM (test code = 6230368854) 8.1 mg/dL 8.6-10.6 L T PROTEIN (test code = 0824308613) 6.6 g/dL 6.3-8.2 ALBUMIN (test code = 9833194714) 3.5 g/dL 3.5-5.0 ALK PHOS (test code = 7671522264) 160 U/L 34-122 H ALTv (test code = 1742-6) 15 U/L 5-50 AST(SGOT) (test code = 1511786421) 33 U/L 13-40 eGFR (test code = 37940-8) 73.8 mL/min/1.73m2 CKD-EPI eGFR (2020). Assuming creatinine has been stable day-to-day for at least three months, the eGFR indicates Category G2 (60 - 89 mL/min/1.73 m2) Lab Interpretation (test code = 80180-2) [facility] Test Item Value Reference Range Interpretation Comme nts MAGNESIUM (test code = 2720621021) 1.6 mg/dL 1.7-2.4 L Lab Interpretation (test cod e = 46944-0) [facility] 07:36:55* Test Item Value Reference Range Interpretation Comme nts POCT GLU (test code = 0684843123) 476 mg/dL 70-110 Lab Interpretation (test cod e = 56717-8) Abnormal [facility] with Puuy1482-58-20 07:23:19* Test Item Value Reference Range Interpretation [...] 34.6 g/dL 31.2-35.0 RDW-SD (test code = 18898-2) 39.8 fL 38.5-51.6 RDW-CV (test code = 788-0) 12.2 % 12.1-15.4 PLT (test code = 777-3) 251 150-328 MPV (test code = 81352-1) 10.5 fL 9.8-13.0 NRBC/100 WBC (test code = 3947328439) 0.0 0.0-10.0 NRBC x10^3 (test code = 7360229707) See_Comment [Automated messa ge] The system which generated this result transmitted reference range: 10*3/?L. The reference range was not used to interpret this result as normal/abnormal. GRAN MAT (NEUT) % (test code = 770-8) 76.0 % IMM GRAN % (test code = 5022737711) 0.90 % LYMPH % (test code = 736-9) 11.5 % MONO % (test code = 5905-5) 10.5 % EOS % (test code = 713-8) 0.8 % BASO % (test code = 706-2) 0.3 % GRAN MAT x10^3(ANC) (test code = 4852714431) 9.08 10*3/uL 1.99-6.95 H IMM GRAN x10^3 (test code = 7623782541) 0.11 10*3/uL 0.00-0.06 H LYMPH x10^3 (test code = 731-0) 1.38 10*3/uL 1.09-3.23 MONO x10^3 (test code = 742-7) 1.26 10*3/uL 0.36-1.02 H EOS x10^3 (test code = 711-2) 0.10 10*3/uL 0.06-0.53 BASO x10^3 (test code = 704-7) 0.04 10*3/uL 0.01-0.09 Lab Interpretation (test code = 29394-9) [facility] 06:45:34* Test Item Value Reference Range Interpretation Comme nts POCT GLU (test code = 5739205638) 495 mg/dL 70-110 HH Lab Interpretation (test cod e = 03939-7) Abnormal [facility] HEAD WO [id number] 20:17:39EXAMS: CT HEAD WO CONTRAST, CT CERVICAL [...] facetarthropathy, most pronounced at C5-C6 and C6-C7, unchanged.[facility]CT [facility] SP[facility] WO [id number] 20:17:39EXAMS: CT HEAD WO CONTRAST, CT CERVICAL [...] facetarthropathy, most pronounced at C5-C6 and C6-C7, unchanged.[facility] CenterAmmonia, [id number] 19:25:25* Test Item Value Reference Range Interpretation Comme nts AMMONIA (test code = 4760367586) 9-33 L Lab Interpretation (test cod e = 91110-0) [facility]+ VW [id number] 17:22:17XR FOOT 3+ VW RIGHT 04/03/2024 10:15 AM History: r/o fx/osteo midfoot Comparison: None Findings: 3 views of the right foot are received for interpretation. There is no fracture or dislocation. Soft tissues are unremarkable. Thereare no radiopaque foreign bodies. Joint spaces are preserved.[facility]+ VW [id number] 17:22:17XR FOOT 3+ VW RIGHT 04/03/2024 10:15 AM History: r/o fx/osteo midfoot Comparison: None Findings: 3 views of the right foot are received for interpretation. There is no fracture or dislocation. Soft tissues are unremarkable. Thereare no radiopaque foreign bodies. Joint spaces are preserved.[facility] CenterXR CHEST 1 [id number] 17:18:12 XR CHEST 1 VW HISTORY: ?r/o CHF/infiltrate COMPARISON: March 22, 2024 FINDINGS: The patient is slightly rotated on the film. ?There is noinfiltrate or pleural effusion. ?The cardiomediastinal silhouette is withinnormal limits. ?There is no pneumothorax.[facility] CenterTROPONIN [id number] 16:54:12* Test Item Value Reference Range Interpretation Comme nts TROPONIN I (test code = 3074563647) 0.006 ng/mL <=0.034 RJ (test code = [...] of biotin. Lab Interpretation (test code = 94840-9) Normal [facility] CenterN-[facility]MINAL [id number] 16:54:12* Test Item Value Reference Range Interpretation Comme nts NT-proBNP (test code = 58836-3) 302 pg/mL <=125 RJ (test code = RJ) Result Indeterminate-Consid er causes of NT-proBNP elevation other than Heart failure such as acute coronary syndrome, pulmonary embolism, pulmonary hypertension, sepsis, stroke, and renal dysfunction. Lab Interpretation (test code = 70192-0) [facility]normal [facility] CenterETHANOL2024-05-12 16:53:42 ALCOHOL<10mg/dL04/03/2024 11:53 AM CDTUTMB LABORATORY SERVICESToxic Greater than or equal to 80 mg/dL. NOTE: Whole blood values are approximately 10% to 15% lower than serum and plasma.[facility] CenterETHANOL2024-05-12 16:53:42ALCOHOL<10mg/dL04/03/2024 11:53 AM [facility]ORATORY SERVICESToxic Greater than or equal to 80 mg/dL. NOTE: Whole blood values are approximately 10% to 15% lower than serum and plasma.[facility] Creatine [id number] 16:43:13* Test Item Value Reference Range Interpretation Comme nts CK (test code = 0716150040) 35 U/L 33-194 Lab Interpretation (test cod e = 25972-6) Normal [facility] CenterPhosphorus2024-05-12 16:43:13* Test Item Value Reference Range Interpretation Comme nts PHOSPHORUS (test code = 4414778385) 3.6 mg/dL 2.5-5.0 Lab Interpretation (test cod e = 72858-9) Normal [facility] CenterPhosphorus2024-05-12 16:43:13* Test Item Value Reference Range Interpretation Comme nts PHOSPHORUS (test code = 2312971672) 3.6 mg/dL 2.5-5.0 Lab Interpretation (test cod e = 01541-9) Normal [facility] CenterCreatine [id number] 16:43:13* Test Item Value Reference Range Interpretation Comme nts CK (test code = 9109091920) 35 U/L 33-194 Lab Interpretation (test cod e = 29790-0) Normal [facility] CenterCOMP. METABOLIC PANEL (16954)2024-04-03 16:43:12* Test Item Value Reference Range Interpretation Comme nts NA (test code = 8149856319) 132 mmol/L 135-145 L K (test code = 7567132948) 4.4 mmol/L 3.5-5.0 Slight hemolysis CL (test code = 6642070154) 97 mmol/L 98-108 L CO2 TOTAL (test code = 3707759376) 29 mmol/L 23-31 AGAP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 tear (dressed with mepelix) PROBLEM LIST: Decreased strength, Decreased endurance, and Decreased balance ASSESSMENT: Patient is a 70 year old male seen secondary to the above listed diagnosis. Patient would benefit from continued PT to address the above listed deficits to maximize independence and safety with functional mobility. Rehabilitation Potential: good Goals: The following goals are to maximize independence and safety with functional mobility to eventually return to prior living situation and prior functional status. Upon discharge, patient and/or family will demonstrate the followin. Supine to sit: Supervision Sit to supine: Supervision Sitting balance Good 2. Sit to stand: Supervision using RW Stand to sit: Supervision using RW 3. Supervision with ambulation, Feet: 60 using least assistive device. Treatment Plan: Gait training, Therapeutic exercise, Transfer training, Balance training, Bed mobility training, and Safety education, patient/caregiver education PATIENT EDUCATION: Patient provided with preferred teaching of verbal information and demonstration on role of PT, plan of care, and information above. Shows readiness to learn. Verbal instruction teaching provided. Individual is able to read and verbalizes understanding of teaching provided, accurately returns demonstration of skill, and needs reinforcement of teaching. Total Time Tx Codes in Minutes: 25 min Total Treatment Time in Minutes: 32 min Georgina Phillips PT, DPT License # [id number] Georgina Phillips PT [facility] 2025-05-29 10:33:00 Associated Order(s): CONSULT ADULT OCCUPATIONAL THERAPY OT GENERAL EVALUATION Consult received via [facility], EMR reviewed and evaluation completed 05/29/25. Patient referred to occupational therapy for evaluation and treatment secondary to falls and weakness. Patient agreeable to participate in occupational therapy. Patient found in semichair position in bed and Heels offloaded? No, No visitors present, Vital signs stable , and RADHIKA LE elevated. PT Georgina at bedside for co-evaluation this date secondary to pt's medical complexity and need for increased assistance. Billing only reflects OT portion. Discharge Recommendations: Therapy Needs and Potential:- Patient would benefit from continued skilled occupational therapy services to address: Decline in basic activities of daily living, Decline in instrumental activities of daily living, Decline in cognition, Decreased strength, Decreased endurance, and Caregiver training - Patient demonstrates good potential to improve and meet therapy goals with further skilled occupational therapy services. - Patient appears motivated to improve their BADLS and IADLs and return to their previous level of function. - Patient exhibits limited activity tolerance. - Patient able to follow commands: 1-step Yes, Multi-step Yes, Inconsistencies Yes Challenges to Home Transition:- Requires physical assistance for BADLS - Requires physical assistance for IADLS - Requires supervision or verbal cues for BADLS - Requires supervision or verbal cues for IADLS - Decreased safety awareness/judgement - Increased risk of falls Equipment Recommendations:shower chair, 15/06 supervision/assistance, post acute therapy PLAN OF CARE: At least 2x/week Precautions: Weight bearing status: NA General: PPE Utilized: Gloves, Gown, Surgical mask, and Goggles, Fall, and XDRO rule out Bracing: N/A Subjective: "I don't know.. I am always in pain" Current Occupational Performance and/or Treatment: AM-PAC 6 Clicks (Raw Score 0=Dependent, 24=Independent; Low function Raw Score 0= Dependent, 32=Independent): Raw Score - Daily Activity: 16 T-Scale Score - Daily Activity: 35.96 Toilet Transfer: Minimal Assistance, bed>bedside commode Toileting Hygiene: Minimal Assistance, in standing for posterior perineal care, no BM at this time Functional Mobility: -bed mobility Min A with HOB elevated to EOB L -trunk control supervision seated EOB -scoot hips EOB supervision, extended time to locate bedside commode in ED with appropriate height -sit>stand Min A with RW, small steps to bedside commode Min A -after ~5 min of seated time for potential BM passage, pt reporting unable to void or pass BM -sit>stand Min A with RW, klarissa care performed in standing -small steps back to bed Min A -Max A for back to bed for BLE assistance Patient/caregiver educated on:Adaptive equipment , ADL training, Compensatory techniques/adaptive strategies, Edema management, Energy conservation, Fall prevention, General strengthening, Positioning, Relaxation/breathing techniques, Role of OT, and Safety awareness Patient left in semichair position in bed with call sanchez in reach. No visitors present, Vital signs stable , and RADHIKA LE elevated. Please, see full evaluation below for more detail. 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) 10/12/2019 Cataract OS ONLY Cellulitis of foot, left 04/12/2020 Diabetes Diabetic eye exam 12/01/2019 Added automatically from request for surgery [id number] Dyslipidemia Edema of both legs 02/28/2020 Erectile dysfunction, unspecified erectile dysfunction type 02/28/2020 Essential hypertension 02/28/2020 HTN (hypertension) Hyperlipidemia Obesity (BMI 30-39.9) 03/17/2019 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 Stroke 2017 Type 2 diabetes mellitus with vascular disease 10/12/2019 Upper respiratory tract infection, unspecified type 10/12/2019 PSH: Past Surgical History: Procedure Laterality Date COLONOSCOPY N/A 12/30/2019 Surgeon: Glo Finn MD; Location: [facility] OR [facility] CORNEAL TRANSPLANT,LAMELLAR Bilateral KNEE ARTHROSCOPY 1998 OTHER PENETRATING KERATOPLASTY PHACOEMULSIFICATION OF CATARACT WITH INTRAOCULAR LENS IMPLANT Right 03/17/2019 Surgeon: Virgil Martinez MD; Location: [facility] OR Location PAIN: Pain Location: diffuse/generalized Pain rating before treatment: does not rate, After treatment: does not rate Pain Management: Nursing Notified, Decreased movement aides in some pain reduction, Use of assistive device aides in pain reduction during mobility, and Repositioning Provided OCCUPATIONAL ROLES/HOME ENVIRONMENT: info taken from pt/SFA however pt limited on tolerance to questions for PLOF so info gathering limited Home environment: Lives at assisted living. (However per previous SFA notes, patient is homeless) Bathroom access: Yes Bathroom setup: unknown Occupation(s): Retired Function prior to admission: Wheelchair primary (potentially due to staffing at facility?/safety) and Independent Assistance with ADL, multiple falls per pt unable to quantify Suspected ischemic or hemorraghic stroke patient: No Equipment prior to admission: WC? RW? PERFORMANCE SKILLS/FACTORS: UE Muscle Tone: bilateral WNL UE ROM: bilateral AROM WFL and limited formal testing at this time due to pt tolerance and increased agitation UE Strength: RADHIKA UE WFL Hand dominance: right Dexterity/Coordination: bilateral Intact Endurance - Sitting: Fair Standing: Fair Sitting Balance - Static: Fair Dynamic: Fair Standing: Balance - Static Fair Dynamic: Fair Dizziness: No Skin Integrity: defer full skin assessment to nursing and Abrasions Sensation: pt reports LLE numbness/tingling however unable to confirm if baseline or not Oral Motor: WFL Communication: Able to verbalize needs Yes Other: N/A Vision: WFL Yes Other: N/A Hearing: good; no issues reported COGNITION: Orientation: person and place Follows Commands: 1-step Yes Multi-step Yes Inconsistencies Yes Safety Awareness/Judgment: Poor, Lacks insight to deficits, and Requires frequent cueing PROBLEM LIST: Decreased independence with ADL, Impaired postural control, Decreased strength/endurance for functional activity, and Impaired safety awareness REHAB POTENTIAL/PROGNOSIS: fair PATIENT/FAMILY GOALS: To go back to his facility TREATMENT/INTERVENTION PLAN: Functional motor treatment, Patient/Caregiver Education, Equipment recommendations, Daily living activities, Therapeutic exercises, Sensory integration, and Cognitive retraining GOAL(S): By discharge, patient will increase independence in daily living skills as follows: 1 Patient will perform toilet transfer and 3 in 1 BSC transfer with independence. 2 Patient will perform UB dressing with independence. 3 Patient will perform LB dressing with independence. 4 Patient will complete multi-step grooming tasks with independence while seated at the sink. 5 Patient will complete toileting hygiene, including clothing management, with independence. 6 Patient will increase endurance for functional activity as evidenced by ability to sustain 30-40 minutes of active participation. 7 Patient/caregiver will verbalize/demonstrate understanding/proficiency in the following home programs: Adaptive equipment , Compensatory techniques/adaptive strategies, Energy conservation, Fall prevention, General strengthening, Positioning, and Relaxation/breathing techniques PATIENT-FAMILY TEACHING Patient provided with preferred teaching of verbal information, written information, and demonstration on Adaptive equipment , ADL training, Compensatory techniques/adaptive strategies, Energy conservation, Fall prevention, General strengthening, Positioning, Relaxation/breathing techniques, Role of OT, and Safety awareness. Shows readiness to learn. Verbal instruction teaching provided. Individual is able to read and shows minimal or no evidence of learning and needs reinforcement of teaching. Isabel Suh OTR License # [id number] Dept of Occupational Therapy [facility] pager [phone] [facility] pager [phone] Total Timed Treatment Codes: 10 Min Total Treatment Time: 34 Min Patient Complexity Level High - An occupational therapy evaluation of high complexity was completed using the above tests and measures. The following information was obtained: An occupational profile and medical and therapy history, including review of medical and/or therapy records and extensive additional review of physical, cognitive, or psychosocial history related to current functional performance, Various standardized and non-standardized assessments were used to identify at least 5 or more performance deficits related to physical, cognitive, or psychosocial skills that result in activity limitations and/or participation restrictions, and Clinical decision-making is of high analytic complexity, which includes an analysis of the patient profile, analysis of data from comprehensive assessment(s), and consideration of multiple treatment options. Patient present with comorbidities that affect occupational performance. Significant modification of tasks or assistance (e.g., physical or verbal) with assessment(s) is necessary to enable patient to complete evaluation component. Isabel Suh OT [facility] 2025-05-29 07:39:14 Associated Order(s): CONSULT TILTING SAW OPERATOR-ADULT Summary: consult Consult Nuclear Reactor Operator-Adult Reason for consult: Discharge Needs; Discharge needs: LTC, Other (comment) CC rounded on patient. Patient states that he plans to DC back to [facility] ([employer] [facility] Pacheco, Ye[place], RUPINDER, P: [phone]; ) for group home. Patient pending PT/OT eval for updated clinicals. Patient provided with Medicaid application. Patient states that at this time he can not afford LTC as this would be private pay. CC called admission staff member Karime at [phone], no answer. CC left VM requesting a call back. Patient DENIES any known CM needs. DANISHA Duarte, RN, ACM-RN Orthotic Aide, Case Management Department [facility] Emergency Room M-F 7am-3pm E: [email or web address] C: [phone] O: [phone] [facility] 2025-04-26 13:10:00 Associated Order(s): CONSULT ADULT PHYSICAL THERAPY Images from the original note were not included. Patient agreeable to working with physical therapy. Patient supine in bed, No visitors present. Recommend nursing staff utilize Minimal assist to safely assist patient with mobility out of the bed or chair. PHYSICAL THERAPY EVALUATION Consult received, chart reviewed and evaluation complete this date. Patient is referred to PT for evaluation and treatment. Patient is a 70 year old male who presents to hospital for Altered mental status, unspecified altered mental status type [R41.82]. Discharge Recommendations: Therapy Needs and Potential: Patient would benefit from continued physical therapy services to address: decline in bed mobility decline in transfers decline in gait and/or balance decreased strength Patient appears motivated to improve their functional mobility and return to their previous level of function. Challenges to Home Transition: increased risk of falls decreased safety awareness Equipment recommendations: standard walker Current Functional Status and/or Treatment: AM-PAC 6 Clicks (Raw Score 0=Dependent, 24=Independent; Low function Raw Score 0= Dependent, 32=Independent): Raw Score - Basic Mobility : 14 T-Scale Score - Basic Mobility : 35.55 Bed Mobility: Supine to sit: Moderate Assistance Sit to supine: Moderate Assistance Rolling: Minimal Assistance Bridging: Minimal Assistance Supine-sit: Minimal Assistance Scooting to edge of bed: Minimal Assistance Sitting balance Good Dizziness No Transfers: Sit to stand: Minimal Assistance using standard Walker Stand to sit: Minimal Assistance using standard Walker Static/dynamic standing balance: Fair+ Verbal cueing provided for correct hand placement and correct use of AD Dizziness No Ambulation: patient unable to tolerate due to activity limitation, Pt with significant weakness of B/L LE Dizziness No Therapeutic exercise: patient educated in Deep breathing, Energy conservation, Fall prevention, General strengthening, Relaxation/breathing techniques, and Safety awareness. After session, patient semireclining in bed, No visitors present. Call button provided. PT informed RN of Pt status. PLAN OF CARE: While in the hospital, PT will follow patient at least 2 times per week,once or twice a day, per patient's tolerance and needs. See below for complete details. 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) 10/12/2019 Cataract OS ONLY Cellulitis of foot, left 04/12/2020 Diabetes Diabetic eye exam 12/01/2019 Added automatically from request for surgery [id number] Dyslipidemia Edema of both legs 02/28/2020 Erectile dysfunction, unspecified erectile dysfunction type 02/28/2020 Essential hypertension 02/28/2020 HTN (hypertension) Hyperlipidemia Obesity (BMI 30-39.9) 03/17/2019 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 Stroke 2017 Type 2 diabetes mellitus with vascular disease 10/12/2019 Upper respiratory tract infection, unspecified type 10/12/2019 PSH: Past Surgical History: Procedure Laterality Date COLONOSCOPY N/A 12/30/2019 Surgeon: Glo Finn MD; Location: [facility] OR Location CORNEAL TRANSPLANT,LAMELLAR Bilateral KNEE ARTHROSCOPY 1999 OTHER PENETRATING KERATOPLASTY PHACOEMULSIFICATION OF CATARACT WITH INTRAOCULAR LENS IMPLANT Right 03/17/2019 Surgeon: Virgil Martinez MD; Location: [place] PRIOR LIVING SITUATION: is homeless DME: Standard Walker Prior level of Mobility: ambulates with standard Walker Suspected ischemic or hemorraghic stroke:No Subjective: Pt complains of 10/10, general pain. Patient/Family Goals: Pt was not able to state goal Patient/Family verbalizes understanding of condition: Yes PAIN: -Pain rating before treatment: 10, After treatment: no change COMMUNICATION Primary Language: Slovak Able to Verbalize needs: Yes Vision:good; no issues reported Hearing:good; no issues reported ORIENTATION/COGNITION: Oriented to: person, place, and situation Awake: Yes Alert: Yes Dizzy: No Follows Commands: Yes 1-Step Yes Multi-Step Yes Inconsistent: No NEUROLOGICAL Light Touch: within functional limits bilateral LE, BALANCE: Sitting: Static: Good Dynamic: Fair+ Standing: Static: Fair+ Dynamic: NT RANGE OF MOTION: within functional limits bilateral LE STRENGTH: 3-/5 (F-), bilateral LE ENDURANCE: Good, Room air SKIN INTEGRITY: not intact PROBLEM LIST: Decline in bed mobility, Decline in gait, Decline in transfers, Decreased strength, Decreased balance, Safety awareness deficits, and Pain ASSESSMENT: Patient is a 70 year old male seen secondary to the above listed diagnosis. Patient would benefit from continued PT to address the above listed deficits to maximize independence and safety with functional mobility. Rehabilitation Potential: good Goals: The following goals are to maximize independence and safety with functional mobility to eventually return to prior living situation and prior functional status. Upon discharge, patient and/or family will demonstrate the followin. Supine to sit: Supervision Sit to supine: Supervision Rolling: Supervision Bridging: Independent Supine-sit: Supervision Scooting to edge of bed: Supervision Sitting balance Good 2. Sit to stand: Minimal Assistance using standard Walker Stand to sit: Minimal Assistance using standard Walker 3. Minimal Assistance with ambulation, Feet: 10 using least assistive device. Treatment Plan: Gait training, Therapeutic exercise, Transfer training, Balance training, Bed mobility training, and Safety education, patient/caregiver education PATIENT EDUCATION: Patient provided with preferred teaching of verbal information and demonstration on role of PT, plan of care, and goals. Shows readiness to learn. Verbal instruction and Demonstration teaching provided. Individual is able to read and verbalizes understanding of teaching provided. Total Time Tx Codes in Minutes: 15 min Total Treatment Time in Minutes: 18 min Kevin Arevalo PT [place] Lic No. [id number] [facility] Department of Physical Therapy Kevin Arevalo PT [facility] 2025-04-25 00:06:00 CHIEF COMPLAINT/HISTORY OF PRESENT ILLNESS: The patient was admitted through the ED for weakness and there was noted to be right foot pathology. PAST MEDICAL HISTORY: Significant for peripheral vascular disease, alcoholism. PAST SURGICAL HISTORY: Unremarkable. ALLERGIES: No known drug allergies. MEDICATIONS: In chart. LOWER EXTREMITY PHYSICAL EXAM: VASCULAR: 0/4 dorsalis pedis, posterior tibial pulses bilaterally. NEUROLOGIC: Deferred due to patient being unresponsive. ORTHOPEDIC: Within normal limits. DERMATOLOGIC: Reveals edema bilateral lower extremities with thickened elongated toenails x10 with subungual debris. There was noted to be interdigital macerations of the interspaces 1 through 4 of the right foot with erythema noted. Mild erythema noted in the 3rd and 2nd interdigital space. Toenails were noted to be thickened and elongated time 10 with subungual debris ASSESSMENT: Interdigital maceration secondary to possible bacterial versus fungal infection. Onychomycosis PLAN: 1. Dakin solution moistened gauze to be interwoven interdigitally of the right interdigital spaces. 2. MEchanical debridment of nails at bedside. Thank you for allowing me to participate in the care of this patient. Evangelist Rutledge DPM RS/MODL J#: [id number] [facility] 2025-04-11 17:54:49 Associated Order(s): IP CONSULT TO [...] Dietary Orders (From admission, onward) Start Ordered 04/10/25 5219 Adult Diet Regular Diet effective now Question: Diet type Answer: Regular 04/10/25 1844 % p.o. intake documented: No data found. [...] (Calculated): 2346 mL/day Nutrition Physical Findings per appliquer: Orientation Level: Oriented X4 Gastrointestinal (WDL): X [...] Status Other (Comment) (n/a) -- Site Assessment Painful;[place]-Wound Assessment Red Red No associated orders. Wound 04/10/25 Other (Comments) Anterior;Left Ankle (Active) Date First Assessed/Time First Assessed: 04/10/25 2100 Present on Original Admission: Yes Primary Wound Type: (c) Other (Comments) Wound Location Orientation: Anterior;Left Location: Ankle Assessments 04/11/2025 12:16 AM 04/11/2025 12:43 PM Wound Image Dressing Status Other (Comment) (n/a) -- Site Assessment Red -- Klarissa-Wound Assessment Red -- Active Orders Date Order [...] chloride, 100 mL/hr, Last Rate: 100 mL/hr (04/11/25 1738) sodium chloride, 100 mL/hr, Last Rate: 100 mL/hr (04/11/25 1738) PMH: reviewed Review / Management: Labs: reviewed Lab Results Component Value Date Hgb A1C 8.89 (H) 04/10/2025 I/O 24 HRS: reviewed Monitoring and Evaluation: MONITORING AND EVALUATION: Weight changes, Digestive/abdominal assessment, Nutrition intake, Nutrition-related labs GOAL: >90% of estimated needs met: Nutrition [facility] 2024-08-24 13:51:19 Associated Order(s): CONSULT TILTING SAW OPERATOR-ADULT Patient refused intermediate placement. 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 Stroke 2017 Type 2 diabetes mellitus with vascular disease 10/12/2019 Upper respiratory tract infection, unspecified type 10/12/2019 PSH: Past Surgical History: Procedure Laterality Date COLONOSCOPY N/A 12/30/2019 Surgeon: Glo Finn MD; Location: [facility] CORNEAL TRANSPLANT,LAMELLAR Bilateral KNEE ARTHROSCOPY 1998 OTHER PENETRATING KERATOPLASTY PHACOEMULSIFICATION OF CATARACT WITH INTRAOCULAR LENS IMPLANT Right 03/17/2019 Surgeon: Virgil Martinez MD; Location: [facility] Prior Living Situation: is homeless DME: Rolling Walker Prior level of Mobility: ambulates with rolling Walker. Suspected ischemic or hemorraghic stroke:No Subjective: Pt with complaints of 10/10 pain on B/L LE Patient/Family Goals: To get better Patient/Family verbalizes understanding of condition: Yes PAIN: -Pain rating before treatment: 10, After treatment: 10 COMMUNICATION Primary Language: Slovak Able to Verbalize needs: Yes Vision:good; no [...] min Kevin Arevalo PT [place] Lic No. 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 Stroke 2017 Type 2 diabetes mellitus with vascular disease 10/12/2019 Upper respiratory tract infection, unspecified type 10/12/2019 Past Surgical History: Procedure Laterality Date COLONOSCOPY N/A 12/30/2019 Surgeon: Glo Finn MD; Location: [facility] CORNEAL TRANSPLANT,LAMELLAR Bilateral KNEE ARTHROSCOPY 1998 OTHER PENETRATING KERATOPLASTY PHACOEMULSIFICATION OF CATARACT WITH INTRAOCULAR LENS IMPLANT Right 03/17/2019 Surgeon: Virgil Martinez MD; Location: [facility] Current Facility-Administered Medications: amoxicillin-clavulanate (AUGMENTIN) 875-125 mg [...] José Aparicio MD, 20 mg at 06/29/24 0756 aspirin EC tablet 81 mg, 81 mg, Oral, DAILY, José Aparicio MD, 81 mg at 06/29/24 0756 atorvastatin (LIPITOR) tablet 40 mg, 40 mg, Oral, QHS, José Aparicio MD, 40 mg at 06/28/242009 furosemide (LASIX) tablet 20 mg, 20 mg, Oral, DAILY, José Aparicio MD, 20 mg at 06/29/24 075 gabapentin (NEURONTIN) capsule 100 mg, 100 mg, Oral, TID, José Aparicio MD, 100 mg at 06/29/24 0756 insulin NPH (HUMULIN N) injection 20 Units, 20 Units, Subcutaneous, BIDAC, José Aparicio MD, 20 Units at 06/29/24 0755 ondansetron [...] Friends and Family: Not on file Attends Mosque Services: Not on file Active Member of [...] agree with continuing vancomycin as patient has [place] valve will continue this antibiotic for 6 weeks recommend to repeat echocardiogram after finishing the treatment. 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 Awaiting determination. HAIDER Munoz Ocean Fishing Guide - Care Management [facility] [phone] [email or web address] 2024-06-27 11:15:00 Associated Order(s): CONSULT VASCULAR ACCESS [facility] PICC LINE CONSULT 69 year old male Indication/Diagnosis: oysterman antibiotics See procedure note. 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 Stroke 2017 Type 2 diabetes mellitus with vascular disease 10/12/2019 Upper respiratory tract infection, unspecified type 10/12/2019 PSH: Past Surgical History: Procedure Laterality Date COLONOSCOPY N/A 12/30/2019 Surgeon: Glo Finn MD; Location: [facility] CORNEAL TRANSPLANT,LAMELLAR Bilateral KNEE ARTHROSCOPY 1998 OTHER PENETRATING KERATOPLASTY PHACOEMULSIFICATION OF CATARACT WITH INTRAOCULAR LENS IMPLANT Right 03/17/2019 Surgeon: Virgil Martinez MD; Location: [place] Prior Living Situation: is homeless DME: Rolling [...] treatment: does not rate COMMUNICATION Primary Language: Slovak Able to Verbalize needs: Yes Vision:good; no [...] min Kevin Arevalo PT [place] Lic No. 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 Stroke 2017 Type 2 diabetes mellitus with vascular disease 10/12/2019 Upper respiratory tract infection, unspecified type 10/12/2019 Past Surgical History: Procedure Laterality Date COLONOSCOPY N/A 12/30/2019 Surgeon: Glo Finn MD; Location: [facility] CORNEAL TRANSPLANT,LAMELLAR Bilateral KNEE ARTHROSCOPY 1998 OTHER PENETRATING KERATOPLASTY PHACOEMULSIFICATION OF CATARACT WITH INTRAOCULAR LENS IMPLANT Right 03/17/2019 Surgeon: Virgil Martinez MD; Location: [facility] Family History Problem Relation Age of Onset Cancer Mother Liver Cancer Father lung SOCIAL HISTORY Social History Socioeconomic History Marital status: Tobacco Use Smoking status: Never Smokeless tobacco: Never Substance and Sexual Activity Alcohol use: No Drug use: No ALLERGIES No Known Allergies MEDICATIONS Current Discharge Medication List STOP taking these medications cephALEXin 500 mg capsule Comments: Reason for Stopping: jcswctxc-pzmujwpuzf-sgldhzk in 3.5mg-400 unit- 5,000 unit/gram topical ointment [...] 1/2" Syrg Comments: Reason for Stopping: Insulin [place], Disposable, (PHUC PEN NEEDLE) 32 gauge x [...] Lispro (HumaLOG), , Subcutaneous, TID MEALS+HS, Raj Garcia, REVIEW OF SYSTEMS: Comprehensive 10-system review was [...] Ordering referrals and/or communicating with other health managed care provider (when not separately reported), Documenting clinical information in the electronic or other health record, and Independently interpreting results (not separately reported) and/or communicating results to the patient/family/caregiver. Keep up with basic health maintenance including an annual physical examination with your primary physician, appropriate vaccinations (influenza, pneumonia, new shingles vaccination), and other appropriate testing (e.g. EGD, colonoscopy etc). This report was dictated using [employer] water systems and is subject to voice recognition errors. Please excuse any unusual inaccuracies. Thank you for allowing us to participate in the care of Raj Morales. If you have any questions or concerns please feel free to call our office at [phone]. I would be happy to be of further assistance for Raj Morales wellbeing. Voice recognition software has been used to create portions of this document. An attempt to proofread has been made to minimize errors. Please do not hesitate to call with any questions. Sendil Edouard, MD Computer Repairer, Division of Cardiology [facility] - Health History and Physical Notes Date/Time Note Provider Source 2025-05-28 20:49:49 XpertMD History & Physical DATE: 05/28/2025 SERVICE: Internal Medicine CHIEF COMPLAINT: Fall and Weakness HISTORY OF PRESENT ILLNESS Raj Morales is a 70 year old male who presents to [facility] with worsening weakness and repeated falls due to debility. Lives in an assisted living like facility. No reported recent hospitalization. No reported Systemic Sx. In Ed, Noted to have superficial wounds in multiple sites of his legs. Admitted for post hospitalization discharge plans ALLERGIES Raj has no known allergies. MEDICATIONS No current facility-administered medications for this encounter. Current Outpatient Medications: sodium hypochlorite 0.25% solution, Apply to area(s) daily., Disp: 473 mL, Rfl: 0 tamsulosin 0.4 mg 24 hr capsule, Take 1 capsule by mouth at bedtime for 30 days., Disp: 30 capsule, Rfl: 0 ibuprofen 800 mg tablet, Take 1 tablet by mouth every 8 (eight) hours as needed for Pain (scale 4-6)., Disp: 21 tablet, Rfl: 0 mupirocin 2 % ointment, Apply to area(s) 3 (three) times daily., Disp: 22 g, Rfl: 0 Alcohol Swabs (BD SINGLE USE SWABS REGULAR) PadM, Apply to area(s) daily. Monitor Blood Glucose daily, Disp: 300 Each, Rfl: 0 blood sugar diagnostic (TRUE METRIX GLUCOSE TEST STRIP) strip, Monitor Blood Glucose daily, Disp: 300 Strip, Rfl: 1 lancets (TRUEPLUS LANCETS) [facility], Monitor Blood Glucose daily, Disp: 300 Each, Rfl: 1 Insulin Syringe-Needle U-100 1 mL 27 gauge x 1/2" Syrg, Use as directed, Disp: 200 Syringe, Rfl: 5 Insulin [place], Disposable, (PHUC PEN NEEDLE) 32 gauge x 5/32" Ndle, Use as directed, Disp: 100 Each, Rfl: 1 ofloxacin (OCUFLOX) 0.3 % ophthalmic solution, Place 1 Drop in right eye 3 (three) times daily., Disp: 5 mL, Rfl: 1 prednisoLONE acetate 1 % ophthalmic suspension drops, Place 1 Drop in right eye 4 (four) times daily., Disp: 5 mL, Rfl: 1 Patient's Medications START taking these medications No medications on file CONTINUE taking these medications which have NOT CHANGED ALCOHOL SWABS (BD SINGLE USE SWABS REGULAR) PADM Apply to area(s) daily. Monitor Blood Glucose daily BLOOD SUGAR DIAGNOSTIC (TRUE METRIX GLUCOSE TEST STRIP) STRIP Monitor Blood Glucose daily IBUPROFEN 800 MG TABLET Take 1 tablet by mouth every 8 (eight) hours as needed for Pain (scale 4-6). INSULIN NEEDLES, DISPOSABLE, (PHUC PEN NEEDLE) 32 GAUGE X 5/32" NDLE Use as directed INSULIN SYRINGE-NEEDLE U-100 1 ML 27 GAUGE X 1/2" SYRG Use as directed LANCETS (TRUEPLUS LANCETS) 33 GAUGE MISC Monitor Blood Glucose daily MUPIROCIN 2 % OINTMENT Apply to area(s) 3 (three) times daily. OFLOXACIN (OCUFLOX) 0.3 % OPHTHALMIC SOLUTION Place 1 Drop in right eye 3 (three) times daily. PREDNISOLONE ACETATE 1 % OPHTHALMIC SUSPENSION DROPS Place 1 Drop in right eye 4 (four) times daily. SODIUM HYPOCHLORITE 0.25% SOLUTION Apply to area(s) daily. TAMSULOSIN 0.4 MG 24 HR CAPSULE Take 1 capsule by mouth at bedtime for 30 days. 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) 10/12/2019 Cataract OS ONLY Cellulitis of foot, left 04/12/2020 Diabetes Diabetic eye exam 12/01/2019 Added automatically from request for surgery [id number] Dyslipidemia Edema of both legs 02/28/2020 Erectile dysfunction, unspecified erectile dysfunction type 02/28/2020 Essential hypertension 02/28/2020 HTN (hypertension) Hyperlipidemia Obesity (BMI 30-39.9) 03/17/2019 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 Stroke 2017 Type 2 diabetes mellitus with vascular disease 10/12/2019 Upper respiratory tract infection, unspecified type 10/12/2019 PAST SURGICAL HISTORY Past Surgical History: Procedure Laterality Date COLONOSCOPY N/A 12/30/2019 Surgeon: Glo Finn MD; Location: [facility] CORNEAL TRANSPLANT,LAMELLAR Bilateral KNEE ARTHROSCOPY 1998 OTHER PENETRATING KERATOPLASTY PHACOEMULSIFICATION OF CATARACT WITH INTRAOCULAR LENS IMPLANT Right 03/17/2019 Surgeon: Virgil Martinez MD; Location: [facility] PAST SOCIAL HISTORY Social History Socioeconomic History Marital status: Tobacco Use Smoking status: Never Smokeless tobacco: Never Substance and Sexual Activity Alcohol use: No Drug use: No Social Drivers of Health Financial Resource Strain: Patient Unable To Answer (08/24/2024) Overall Financial Resource Strain (CARDIA) Difficulty of Paying Living Expenses: Patient unable to answer Recent Concern: Financial Resource Strain - High Risk (06/24/2024) Overall Financial Resource Strain (CARDIA) Difficulty of Paying Living Expenses: Very hard Food Insecurity: No Food Insecurity (04/26/2025) NCSS - Food Insecurity Worried About Running Out of Food in the Last Year: No Ran Out of Food in the Last Year: No Transportation Needs: Unmet Transportation Needs (04/26/2025) NCSS - Transportation Lack of Transportation: Yes Physical Activity: Sufficiently Active (08/24/2024) Exercise Vital Sign Days of Exercise per Week: 7 days Minutes of Exercise per Session: 30 min Recent Concern: Physical Activity - Inactive (06/24/2024) Exercise Vital Sign Days of Exercise per Week: 0 days Minutes of Exercise per Session: 0 min Social Connections: Unknown (08/24/2024) Social Connection and Isolation Panel [NHANES] Frequency of Communication with Friends and Family: Three times a week Marital Status: Housing Stability: At Risk (04/26/2025) NCSS - Housing/Utilities Has Housing: No PAST FAMILY HISTORY Family History Problem Relation Age of Onset Cancer Mother Liver Cancer Father lung REVIEW OF SYSTEMS Patient denies any headaches or dizziness, no fevers or chills, no nausea or vomiting, denies any neck pain or stiffness, denies any chest pain or chest pressure or palpitations, denies any shortness of breath, denies any abdominal pain or any changes in bowel or bladder habits, denies any lower extremity swelling, denies any focal motor or sensory deficits, denies any anxiety or depression, and all other systems have been reviewed and are negative except as listed above. PHYSICAL EXAMINATION Vitals: 05/28/25 1839 BP: 123/69 Pulse: 61 Resp: 18 Temp: 37.1 ?C (98.7 ?F) SpO2: 99% Weight: 95.3 kg (210 lb) Height: 1.778 m (5' 10") General: Lying comfortably in no signs of any acute distress HEENT: Normocephalic atraumatic, extraocular muscles appear intact, mucosa moist, neck supple Heart: S1-S2 RRR, no murmurs, rubs or clicks Lungs: Clear to auscultation bilaterally, no rhonchi rales or wheezes noted GI: Soft, nontender, nondistended, positive bowel sounds ? quadrants Extremities: No clubbing, cyanosis or edema noted Neurologic: Cranial nerves II through XII appear grossly intact, no focal motor or sensory deficits noted Psychiatric: No anxiety or depression noted LABS AND IMAGING Recent Results (from the past 24 hours) CBC WITH DIFF Collection Time: 05/28/25 7:00 PM Result Value Ref Range WBC 7.58 4.20 - 10.70 10*3/?L RBC 3.73 (L) 4.26 - 5.52 10*6/?L HGB 10.4 (L) 12.2 - 16.4 g/dL HCT 32.3 (L) 38.4 - 49.3 % MCV 86.6 81.7 - 95.6 fL MCH 27.9 26.1 - 32.7 pg MCHC 32.2 31.2 - 35.0 g/dL RDW-SD 45.2 38.5 - 51.6 fL RDW-CV 14.4 12.1 - 15.4 % PLT 224 150 - 328 10*3/?L MPV 9.4 (L) 9.8 - 13.0 fL NRBC/100 WBC 0.0 0.0 - 10.0 /100 WBCs NRBC x10 3 <0.01 10*3/?L GRAN MAT (NEUT) % 73.1 % IMM GRAN % 0.40 % LYMPH % 16.4 % MONO % 8.0 % EOS % 1.7 % BASO % 0.4 % GRAN MAT x10 3 (ANC) 5.54 1.99 - 6.95 10*3/uL IMM GRAN x10 3 0.03 0.00 - 0.06 10*3/uL LYMPH x10 3 1.24 1.09 - 3.23 10*3/uL MONO x10 3 0.61 0.36 - 1.02 10*3/uL EOS x10 3 0.13 0.06 - 0.53 10*3/uL BASO x10 3 0.03 0.01 - 0.09 10*3/uL COMP. METABOLIC PANEL ([id number]) Collection Time: 05/28/25 7:00 PM Result Value Ref Range NA 136 135 - 145 mmol/L K 4.6 3.5 - 5.0 mmol/L CL 105 98 - 108 mmol/L CO2 TOTAL 25 23 - 31 mmol/L AGAP 6 2 - 16 BUN 29 (H) 7 - 23 mg/dL GLUCOSE 128 (H) 70 - 110 mg/dL CREATININE 1.10 0.60 - 1.25 mg/dL TOTAL BILI 0.4 0.1 - 1.1 mg/dL CALCIUM 8.5 (L) 8.6 - 10.6 mg/dL T PROTEIN 6.5 6.3 - 8.2 g/dL ALBUMIN 3.7 3.5 - 5.0 g/dL ALK PHOS 91 34 - 122 U/L ALTv 15 5 - 50 U/L AST(SGOT) 20 13 - 40 U/L eGFR 71.8 mL/min/1.73m2 TROPONIN I Collection Time: 05/28/25 7:00 PM Result Value Ref Range TROPONIN I <0.010 <=0.034 ng/mL N-TERMINAL PRO-BNP Collection Time: 05/28/25 7:00 PM Result Value Ref Range NT-proBNP 428 <=125 pg/mL Radiology No final results containing an impression from the past 48 hours were found. ASSESSMENT AND PLAN Raj Morales is a 70 year old male who presents with: Debility HTN Bilateral Leg Wounds BPH Admit to medical floor Fall precaution Wound care Pt/Ot to assess and treat Resume Tamsulosin Case management for post hospitalization discharge plans Hernandez Sabillon MD IM-INTERNAL MEDICINE STAFF [facility] 2025-04-25 23:38:00 [facility] Hospitalist Admission H&P Date of Service: 04/25/2025 CHIEF COMPLAINT: Hypoglycemia HISTORY OF PRESENT ILLNESS Raj Morales is a 70 year old male who presents with ischemia. Patient is disheveled and very unkept. Patient has significant lower extremity edema in his feet bilaterally were very dirty. He also has skin breakdown on his bilateral thighs and scrotal region. Patient has been homeless and has not been at his intermediate. He came into the hospital because his blood sugars were low. Patient started on D10 and his blood sugars are improved. Will continue monitoring patient clinical symptoms. Otherwise patient denies any other complaints. He states that he has been trying to get into a intermediate but he gets comfortable whenever he gets into a location that he likes. Currently patient will need to get his diabetic meds adjusted. Patient is weak on the right side but he has been dealing with that chronically. At this time patient will get his blood sugar stabilized and will get podiatry to look at his feet. He will need wound care consultation for the thigh and scrotal wounds. Patient will need inpatient hospitalization.. 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 Stroke 2017 Type 2 diabetes mellitus with vascular disease 10/12/2019 Upper respiratory tract infection, unspecified type 10/12/2019 PAST SURGICAL HISTORY Past Surgical History: Procedure Laterality Date COLONOSCOPY N/A 12/30/2019 Surgeon: Glo Finn MD; Location: [facility] CORNEAL TRANSPLANT,LAMELLAR Bilateral KNEE ARTHROSCOPY 1998 OTHER PENETRATING KERATOPLASTY PHACOEMULSIFICATION OF CATARACT WITH INTRAOCULAR LENS IMPLANT Right 03/17/2019 Surgeon: Virgil Martinez MD; Location: [facility] ALLERGIES No Known Allergies MEDICATIONS Current home medication list reviewed: Current Discharge Medication List STOP taking these medications ibuprofen 800 mg tablet Comments: Reason for Stopping: mupirocin 2 % ointment Comments: Reason for Stopping: Alcohol Swabs (BD SINGLE USE SWABS REGULAR) PadM Comments: Reason for Stopping: blood sugar diagnostic (TRUE METRIX GLUCOSE TEST STRIP) strip Comments: Reason for Stopping: lancets (TRUEPLUS LANCETS) 33 gauge Misc Comments: Reason for Stopping: Insulin Syringe-Needle U-100 1 mL 27 gauge x 1/2" Syrg Comments: Reason for Stopping: Insulin [place], Disposable, (PHUC PEN NEEDLE) 32 gauge x " Ndle Comments: Reason for Stopping: ofloxacin (OCUFLOX) 0.3 [...] Alcohol use: No Drug use: No Social Drivers of Health Financial Resource Strain: Patient Unable To Answer (08/24/2024) Overall Financial Resource Strain (CARDIA) Difficulty of Paying Living Expenses: Patient unable to answer Recent Concern: Financial Resource Strain - High Risk (06/24/2024) Overall Financial Resource Strain (CARDIA) Difficulty of Paying Living Expenses: Very hard Food Insecurity: Patient Unable To Answer (08/24/2024) Hunger Vital Sign Worried About Running Out of Food in the Last Year: Patient unable to answer Ran Out of Food in the Last Year: Patient unable to answer Recent Concern: Food Insecurity - Food Insecurity Present (06/24/2024) Hunger Vital Sign Worried About Running Out of Food in the Last Year: Often true Ran Out of Food in the Last Year: Often true Physical Activity: Sufficiently Active (08/24/2024) Exercise Vital Sign Days of Exercise per Week: 7 days Minutes of Exercise per Session: 30 min Recent Concern: Physical Activity - Inactive (06/24/2024) Exercise Vital Sign Days of Exercise per Week: 0 days Minutes of Exercise per Session: 0 min Social Connections: Unknown (08/24/2024) Social Connection and Isolation Panel [NHANES] Frequency of Communication with Friends and Family: Three times a week Marital Status: Housing Stability: Patient Unable To Answer (08/24/2024) Housing Stability Vital Sign Unable to Pay for Housing in the Last Year: Patient unable to answer Number of Places Lived in the Last Year: 0 Unstable Housing in the Last Year: Patient unable to answer Recent Concern: Housing Stability - High Risk (06/24/2024) Housing Stability Vital Sign Unable to Pay for Housing in the Last Year: Yes Unstable Housing in the Last Year: Yes REVIEW OF SYSTEMS 10 systems negative except per HPI PHYSICAL EXAMINATION BP (!) 151/78 | Pulse 79 | Temp 36.3 ?C (97.4 ?F) (Temporal Artery) | Resp 16 | Ht 1.778 m (5' 10") | Wt 90.7 kg (200 lb) | SpO2 97% | BMI 28.70 kg/m? General: No acute distress HEENT: Normal oral mucosa, anicteric sclerae, NCAT Cardiovascular: RRR Lungs: Symmetric expansion, clear bilaterally Abdomen: Soft, NTND Musculoskeletal: No synovitis, normal muscle mass Genitourinary: Deferred Skin: Erythema to the bilateral thigh posteriorly as well as scrotal region; patient is nails are uncapped on his bilateral feet Extremities: No clubbing, no cyanosis, bilateral lower extremity edema Neuro: AAOx3, right-sided weakness greater than the left Psych: Normal affect LABS - reviewed pertinent labs as below: CBC BMP PT/INR WBC (10*3/?L) Date Value 04/25/2025 11.97 (H) NA (mmol/L) Date Value 04/25/2025 138 No results found for: "PT" RBC (10*6/?L) Date Value 04/25/2025 3.57 (L) K (mmol/L) Date Value 04/25/2025 3.8 INR (no units) Date Value 06/23/2024 1.1 PLT (10*3/?L) Date Value 04/25/2025 336 (H) CALCIUM (mg/dL) Date Value 04/25/2025 8.6 HGB (g/dL) Date Value 04/25/2025 10.1 (L) CL (mmol/L) Date Value 04/25/2025 107 aPTT HCT (%) Date Value 04/25/2025 30.9 (L) BUN (mg/dL) Date Value 04/25/2025 20 APTT Patient (Seconds) Date Value 06/23/2024 32 CREATININE (mg/dL) Date Value 04/25/2025 1.12 IMAGING - reviewed, pertinent results as below: Hospital Encounter on 04/25/25 CT Head wo contrast Narrative CT HEAD WO CONTRAST, CT CERVICAL SPINE WO CONTRAST HISTORY: Male 70 years Mental status change, unknown cause COMPARISON: 04/20/2025 TECHNIQUE: Noncontrast CT images of the head and cervical spine with multiplanar reformats. FINDINGS: Head: The ventricles and cerebral sulci are normal in size and configuration. No intracranial abnormality such as hemorrhage, edema, mass-effect, midline shift, hydrocephalus or pathologic extra axial fluid collection is appreciated. The basal cisterns are patent. Mild periventricular white matter hypoattenuation, non-specific but likely reflecting chronic small vessel ischemic changes. The vazquez-white matter differentiation is preserved. The calvarium and skull base are intact. Partial opacification of the ethmoid air cells. Cervical: There is straightening of the normal cervical lordosis. Vertebral bodies are normal in height and alignment. No acute fractures or subluxation seen. The prevertebral soft tissues are unremarkable. Impression No acute intracranial abnormality. No CT evidence of acute cervical injury. CT Cervical spine wo contrast Narrative CT HEAD WO CONTRAST, CT CERVICAL SPINE WO CONTRAST HISTORY: Male 70 years Mental status change, unknown cause COMPARISON: 04/20/2025 TECHNIQUE: Noncontrast CT images of the head and cervical spine with multiplanar reformats. FINDINGS: Head: The ventricles and cerebral sulci are normal in size and configuration. No intracranial abnormality such as hemorrhage, edema, mass-effect, midline shift, hydrocephalus or pathologic extra axial fluid collection is appreciated. The basal cisterns are patent. Mild periventricular white matter hypoattenuation, non-specific but likely reflecting chronic small vessel ischemic changes. The vazquez-white matter differentiation is preserved. The calvarium and skull base are intact. Partial opacification of the ethmoid air cells. Cervical: There is straightening of the normal cervical lordosis. Vertebral bodies are normal in height and alignment. No acute fractures or subluxation seen. The prevertebral soft tissues are unremarkable. Impression No acute intracranial abnormality. No CT evidence of acute cervical injury. ASSESSMENT/PLAN: 1. Hypoglycemia; unknown etiology but most likely related to nutrition. He states he has not been eating or drinking well. Will check hemoglobin A1c level. Adjust his diabetic meds. Continue with D10 for now and once his blood sugar stabilized and we can discontinue. 2. Metabolic syndrome; strict blood pressure control and monitor statin levels. 3. History of CVA; continue with antiplatelet therapy and statin therapy. 4. History of chronic back pain; continue with pain control 5. History of stage I to stage II skin breakdowns on the bilateral thighs and scrotal region; wound care consultation 6. Onychomycosis; consult podiatry 7. GI DVT prophylaxis DVT prophylaxis: enoxaparin Stress [...] high risk of morbidity and mortality. 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 [facility] Medicine [facility] History and Physical Patient:Raj Morales PCP:PCP Date [...] DVT prophylaxis: enoxaparin (Lovenox) syringe 40 mg [[id number]] Current Diet: Adult Diet Regular Disposition Anticipated: [...] data in the 24 hours ending 04/10/25 9267 Culture Results No results found for the [...] 04/10/2025 05:16 PM CDT Malini Stokes MD [facility] Medicine [facility] 2024-08-23 20:52:46 MEDICINE [facility] ADMIT H&P Date of Service: 08/23/2024 CHIEF COMPLAINT: confusion, low blood glucose Subjective History of Present Illness 69 yo obese male with pmh of DM, foot cellulitis, HLD, HTN, CVA, MRSA bacteremia, infective endocarditis, E.coli UTI who presents to the ED secondary to low blood sugar. He was found in the [facility] parking lot by bystander. 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 Stroke 2017 Type 2 diabetes mellitus with vascular disease 10/12/2019 Upper respiratory tract infection, unspecified type 10/12/2019 Past Surgical History: Procedure Laterality Date COLONOSCOPY N/A 12/30/2019 Surgeon: Glo Finn MD; Location: [facility] CORNEAL TRANSPLANT,LAMELLAR Bilateral KNEE ARTHROSCOPY 1998 OTHER PENETRATING KERATOPLASTY PHACOEMULSIFICATION OF CATARACT WITH INTRAOCULAR LENS IMPLANT Right 03/17/2019 Surgeon: Virgil Martinez MD; Location: [facility] Family History Problem Relation Age of Onset [...] tablet 0 lancets (TRUEPLUS LANCETS) 33 gauge [facility] Monitor Blood Glucose daily 300 Each 1 simvastatin 40 mg tablet Take 1 tablet by mouth at bedtime. 90 tablet 0 metFORMIN 1,000 mg tablet Take 1 tablet by mouth 2 (two) times daily with meals. 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 Stroke 2017 Type 2 diabetes mellitus with vascular disease 10/12/2019 Upper respiratory tract infection, unspecified type 10/12/2019 PAST SURGICAL HISTORY Past Surgical History: Procedure Laterality Date COLONOSCOPY N/A 12/30/2019 Surgeon: Glo Finn MD; Location: [facility] CORNEAL TRANSPLANT,LAMELLAR Bilateral KNEE ARTHROSCOPY 1998 OTHER PENETRATING KERATOPLASTY PHACOEMULSIFICATION OF CATARACT WITH INTRAOCULAR LENS IMPLANT Right 03/17/2019 Surgeon: Virgil Martinez MD; Location: [place] [facility] No Known Allergies MEDICATIONS Current home medication list reviewed: Current Discharge Medication List STOP taking these medications cephALEXin 500 mg capsule Comments: Reason for Stopping: rdsquaqw-[id number]-[id number] 3.5mg-400 unit- 5,000 unit/gram topical ointment Comments: [...] 1/2" Syrg Comments: Reason for Stopping: Insulin [place], Disposable, (PHUC PEN NEEDLE) 32 gauge x [...] Patient may need to go to a group home facility for a little while along with [...] given high risk of morbidity and mortality. 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 Due to pt's insurance requiring a 40% copay per day for SNF placement, he is unable to pay out of pocket and states he will just return to his prior living situation "with friends". Pt provided the following address: [address] [place] [id number]. However, upon SW inquiring about who will be available in the home once transport is set up, he states "no one". SW offered intermediate services of which he firmly denied. Pt states he would just request to be transported to the [facility]. Pt has requested a rolling walker for dc. RW will be provided prior to dc. SW will arrange accordingly. HAIDER Munoz Ocean Fishing Guide - Care Management [facility] [phone] [email or web address] MALONEY [facility] 2024-06-27 11:15:00 Vascular Access Services Date of Service: 06/27/24 Patient [facility]: [facility] 222 Placed by: Adilson Lees RN 69 year old male. Indication/Diagnosis: oysterman antibiotics Consent: indications/complications discussed; verbal consent obtained from patient and indications/complications discussed; written consent obtained from patient Education provided to patient, including pros and cons of PICC insertion. Questions encouraged and answered accordingly. According to [facility] Operating Procedures Policy, a Time Out was [...] area. Chest x-ray: ordered and pending REF#: [id number] Lot #: [id number] Exp Date: 03/22/25 Adilson Lees RN [facility] Notes Date/Time Note Provider Source 2025-05-30 10:33:05 Discharge completed. Ambulance picking up at 11am. Ibeth Parker RN [facility] 2025-05-30 10:13:50 Problem: Falls, Risk of Goal: Absence of falls Outcome: Resolved Problem: Skin integrity Impaired (Risk or Actual) Goal: Wound healing Outcome: Resolved Goal: Prevention of new skin breakdown Outcome: Resolved Problem: Respiratory Function - Impaired Goal: Able to cough effectively Outcome: Resolved Goal: Adequate oxygenation Outcome: Resolved Goal: Adequate work of breathing Outcome: Resolved Goal: Patent airway Outcome: Resolved [facility] 2025-05-30 07:38:39 Problem: Falls, Risk of Goal: Absence of falls Outcome: Progressing as expected Problem: Skin integrity Impaired (Risk or Actual) Goal: Wound healing Outcome: Progressing as expected Goal: Prevention of new skin breakdown Outcome: Progressing as expected Problem: Respiratory Function - Impaired Goal: Able to cough effectively Outcome: Progressing as expected Goal: Adequate oxygenation Outcome: Progressing as expected Goal: Adequate work of breathing Outcome: Progressing as expected Goal: Patent airway Outcome: Progressing as expected Problem: Falls, Risk of Goal: Absence of falls Outcome: Progressing as expected Problem: Skin integrity Impaired (Risk or Actual) Goal: Wound healing Outcome: Progressing as expected Goal: Prevention of new skin breakdown Outcome: Progressing as expected Problem: Respiratory Function - Impaired Goal: Able to cough effectively Outcome: Progressing as expected Goal: Adequate oxygenation Outcome: Progressing as expected Goal: Adequate work of breathing Outcome: Progressing as expected Goal: Patent airway Outcome: Progressing as expected Nicko Lam RN [facility] 2025-05-30 02:55:19 Problem: Falls, Risk of Goal: Absence of falls Outcome: Progressing as expected Problem: Skin integrity Impaired (Risk or Actual) Goal: Wound healing Outcome: Progressing as expected Goal: Prevention of new skin breakdown Outcome: Progressing as expected Problem: Respiratory Function - Impaired Goal: Able to cough effectively Outcome: Progressing as expected Goal: Adequate oxygenation Outcome: Progressing as expected Goal: Adequate work of breathing Outcome: Progressing as expected Goal: Patent airway Outcome: Progressing as expected Jarad Enrique RN [facility] 2025-05-29 19:29:09 Problem: Falls, Risk of Goal: Absence of falls Outcome: Progressing as expected Problem: Skin integrity Impaired (Risk or Actual) Goal: Wound healing Outcome: Progressing as expected Goal: Prevention of new skin breakdown Outcome: Progressing as expected Problem: Respiratory Function - Impaired Goal: Able to cough effectively Outcome: Progressing as expected Goal: Adequate oxygenation Outcome: Progressing as expected Goal: Adequate work of breathing Outcome: Progressing as expected Goal: Patent airway Outcome: Progressing as expected Vitaliy Foreman RN [facility] 2025-05-29 14:17:11 Patient departed via wheelchair with transportation Joe Rodriguez RN [facility] 2025-05-29 13:59:04 Care plan initiated [facility] 2025-05-29 13:56:03 Admission completed. This nurse called the [facility] at [place] and spoke to patients nurse. Emergency contact was given and this nurse corrected it in patients chart. Reports falls in the past and patient uses wheelchair at facility. [facility] 2025-05-29 13:51:08 Report to Vitaliy HENSON. Transportation requested [facility] 2025-05-29 11:09:08 Patient AMS, will attempt to call [facility] ([place] in [place]. [facility] 2025-05-29 10:51:25 PT/OT at the bedside [facility] 2025-05-29 08:42:31 Admit team physician at the bedside [facility] 2025-05-29 07:46:13 Patient repositioned in bed. He is awake and alert, anxious to be discharged and return to his home. [facility] 2025-05-29 07:17:40 Report from Chun HENSON [facility] 2025-05-29 07:06:56 Pt is Aox4, on RA. VSS, he denied pain during this shift. Pt appears comfortable. Report given to Deshawn HENSON. All question answered during this report. [facility] Chun Wolff RN [facility] 2025-05-29 01:24:40 Chun HENSON accepted report on pt; RN verbalized understanding of report including updated plan of care, all outstanding tasks, and all questions/concerns answered. NAT Parvin Rodgers RN [facility] 2025-05-28 22:54:59 Pt yelling and whistling to get staff attention. RN in room. Pt had dropped urinal and needed another. Pt call light at his side, RN placed call light in hand for pt to use. Pt given new urinal, urine cleaned from floor. Krystal Villanueva RN [facility] 2025-05-28 20:20:[address] Scan. [place] requested UA collection from pt. Pt denied need to urinate at this time and will call using call light when ready. [facility] 2025-05-28 19:17:45 Pt AO4, resp even/unlabored, NAD on RA; Pt endorsed sent to ED via EMS from care facility he is staying at in [place] for "increased concern for dizziness." Pt unable to report symptom onset or any aggravating or alleviating factors. Pt states the caregivers at the facility provide him his medications and care for his wounds on LLE and right foot. 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 Pt experiencing sacral pain aggravated by EMS stretcher and ride. Pt denies need for pain medication at this time. PMH: DMT2 (insulin). Pt educated on ED safety procedures and plan of care. Pt verbalized understanding and utilized teach back to demonstrate understanding of call light for UA. [facility] 2025-05-28 18:36:38 EMS states " Here for multiple fall and generalize weakness. Normally gets around in , has been to weak to transfer" Pt is from [facility], no blood thinners, no LOC. 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 He has been experiencing recurrent falls, primarily due to dizziness, which has been persisting for several months. He reports no recent head trauma or pain associated with the falls. He also mentions that he missed his dinner today. 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) 10/12/2019 Cataract OS ONLY Cellulitis of foot, left 04/12/2020 Diabetes Diabetic eye exam 12/01/2019 Added automatically from request for surgery [id number] Dyslipidemia Edema of both legs 02/28/2020 Erectile [...] N/A 12/30/2019 Surgeon: Glo Finn MD; Location: [facility] CORNEAL TRANSPLANT,LAMELLAR Bilateral KNEE ARTHROSCOPY 1999 OTHER PENETRATING KERATOPLASTY PHACOEMULSIFICATION OF CATARACT WITH INTRAOCULAR LENS IMPLANT Right 03/17/2019 Surgeon: Virgil Martinez MD; Location: [facility] Review of Systems: Review of Systems Constitutional: Negative for activity change, appetite change, chills, diaphoresis, fever, weight gain and weight loss. HENT: Negative. Respiratory: Negative. Negative for cough and shortness of breath. Cardiovascular: Negative for chest pain and palpitations. Gastrointestinal: Negative for abdominal distention, abdominal pain, anal bleeding, blood in stool, constipation, diarrhea, nausea, rectal pain and vomiting. Genitourinary: Negative. Negative for dysuria and difficulty urinating. Neurological: Positive for dizziness and weakness. Negative for tremors and light-headedness. Psychiatric/Behavioral: Negative for agitation, behavioral problems and hallucinations. Endocrine: Negative for weight gain and weight loss. Physical Exam: Physical Exam ED Triage Vitals [05/28/25 1839] Weight 95.3 kg (210 lb) Actual or estimated Height 1.778 m (5' 10") BP 123/69 Pulse 61 Resp 18 Temp 37.1 ?C (98.7 ?F) Temp src SpO2 99 % Measured on Physical Exam HENT: Head: Normocephalic and atraumatic. Right Ear: External ear normal. Left Ear: External ear normal. Mouth/Throat: Mouth: Mucous membranes are dry. Eyes: Pupils: Pupils are equal, round, and reactive to light. Cardiovascular: Rate and Rhythm: Normal rate and regular rhythm. Pulses: Normal pulses. Heart sounds: Normal heart sounds. Pulmonary: Effort: Pulmonary effort is normal. Breath sounds: Normal breath sounds. Abdominal: Palpations: Abdomen is soft. Musculoskeletal: General: Normal [...] Thought content normal. Judgment: Judgment normal. Radiology: CT HEAD WO CONTRAST Preliminary Result CT HEAD WO CONTRAST HISTORY:70 years old Male with fall COMPARISON: CT head without contrast on 04/25/2025 TECHNIQUE: Noncontrast axial images of the head, with coronal and sagittal reformats. FINDINGS: The ventricles and cerebral sulci are normal in caliber and configuration. No hydrocephalus, midline shift or pathological extra-axial fluid collection is present. The basal cisterns are unremarkable. There is no acute intracranial hemorrhage or significant mass effect. Periventricular, subinsular, and patchy deep white matter hypoattenuation is nonspecific and likely represents microvascular ischemic changes. The vazquez-white matter differentiation is preserved. The mastoid air cells and paranasal air sinuses are clear. The calvarium and central skull base are unremarkable.Skin thickening noted along the left posterior scalp. IMPRESSION 1. Skin thickening along the posterior left scalp without underlying bony abnormality. 2. No acute intracranial abnormality. Preliminary Report Dictated by Resident: Richard Moralez XR CHEST 1 VW Final Result XR CHEST 1 VW 05/28/2025 7:19 PM HISTORY: weakness . COMPARISON: Chest radiograph dated 04/27/2025. FINDINGS: Cardiomediastinal silhouette is unchanged.. Low volume with bronchovascular crowding. Left retrocardiac streaky opacities, possibly atelectasis. No sizable pleural effusion or pneumothorax. No acute osseous abnormality. Lab Results: Lab Results CBC WITH DIFF - Abnormal Result Value Ref Range WBC 7.58 4.20 - 10.70 10*3/?L RBC 3.73 (*) 4.26 - 5.52 10*6/?L HGB 10.4 (*) 12.2 - 16.4 g/dL HCT 32.3 (*) 38.4 - 49.3 % MCV 86.6 81.7 - 95.6 fL MCH 27.9 26.1 - 32.7 pg MCHC 32.2 31.2 - 35.0 g/dL RDW-SD 45.2 38.5 - 51.6 fL RDW-CV 14.4 12.1 - 15.4 % PLT 224 150 - 328 10*3/?L MPV 9.4 (*) 9.8 - 13.0 fL NRBC/100 WBC 0.0 0.0 - 10.0 /100 WBCs NRBC x10 3 <0.01 10*3/?L GRAN MAT (NEUT) % 73.1 % IMM GRAN % 0.40 % LYMPH % 16.4 % MONO % 8.0 % EOS % 1.7 % BASO % 0.4 % GRAN MAT x10 3 (ANC) 5.54 1.99 - 6.95 10*3/uL IMM GRAN x10 3 0.03 0.00 - 0.06 10*3/uL LYMPH x10 3 1.24 1.09 - 3.23 10*3/uL MONO x10 3 0.61 0.36 - 1.02 10*3/uL EOS x10 3 0.13 0.06 - 0.53 10*3/uL BASO x10 3 0.03 0.01 - 0.09 10*3/uL COMP. METABOLIC PANEL (03151) - Abnormal NA 136 135 - 145 mmol/L K 4.6 3.5 - 5.0 mmol/L CL 105 98 - 108 mmol/L CO2 TOTAL 25 23 - 31 mmol/L AGAP 6 2 - 16 BUN 29 (*) 7 - 23 mg/dL GLUCOSE 128 (*) 70 - 110 mg/dL CREATININE 1.10 0.60 - 1.25 mg/dL TOTAL BILI 0.4 0.1 - 1.1 mg/dL CALCIUM 8.5 (*) 8.6 - 10.6 mg/dL T PROTEIN 6.5 6.3 - 8.2 g/dL ALBUMIN 3.7 3.5 - 5.0 g/dL ALK PHOS 91 34 - 122 U/L ALTv 15 5 - 50 U/L AST(SGOT) 20 13 - 40 U/L eGFR 71.8 mL/min/1.73m2 N-TERMINAL PRO-BNP - Abnormal NT-proBNP 428 <=125 pg/mL TROPONIN I - Normal TROPONIN I <0.010 <=0.034 ng/mL URINALYSIS URINE CULTURE EKG: If EKG completed, see Procedure Note. Orders and Treatments: Orders Placed This Encounter Procedures CT HEAD WO CONTRAST XR CHEST 1 VW CBC WITH DIFF COMP. METABOLIC PANEL (80662) URINALYSIS TROPONIN I N-TERMINAL PRO-BNP URINE CULTURE Orders Placed This Encounter Medications NaCl 0.9% (NS) bolus infusion 1,000 mL First Provider Eval: ED Events Date/Time Event User Comments [id number] Medical Screening Begins SANDHIR, AMBICA -- 05/28/251852 First Provider Evaluation RAMÓN ROBLERO -- AdmissionCare Guideline: General Observation, Observation Based on the indications selected for the patient, the bed status of Observation was determined to be MET The following indications were selected as present at the time of evaluation of the patient: - Observation Care Admission Criteria - Observation care is indicated for ALL of the following: - Clinical care needed is not appropriate for lower level of care (ie, discharge to outpatient setting not appropriate). - Clinical care (eg, testing, monitoring, or treatment) needed beyond usual emergency department time frame (eg, 3 to 4 hours) - Patient has clinical condition for which observation care is needed, as indicated by 1 or more of the following: - Neurologic condition or finding (eg, Altered mental status, confusion, weakness, dizziness, ataxia, exacerbation of neuromuscular disease or movement disorder, diplopia, neuralgia) Complications and Comorbidities selected: None AdmissionCare documentation entered by: Ramón Roblero [facility] [employer], 29th edition, Copyright ? 2024 [facility] [employer] All Rights Reserved. [id number]:00 ED COURSE Diagnosis/Impression as of 05/28/252149 Weakness Results Procedures: Procedures MDM: Assessment & Plan 1. Dizziness. He reports experiencing dizziness for months, which has been causing frequent falls. He has not hit his head recently and is not in any pain from the falls. Blood tests and urine tests will be conducted to further evaluate his condition. If he remains unsteady on his feet upon discharge, hospital admission may be considered. Medical Decision Making 70-year-old male presents to the emergency department for evaluation of dizziness and recurrent falls. The dizziness has been ongoing for several months and is the primary contributing factor to his falls. He denies any recent head trauma or associated pain with the falls. He also reports missing dinner today, though this is not thought to be the primary cause of his symptoms. Labs: CBC: Mild anemia (Hgb 10.4), otherwise within normal limits. CMP: BUN 29 (mild elevation), glucose 128, creatinine 1.10, Na 136, K 4.6, no significant electrolyte abnormalities. NT-proBNP: 428 - mildly elevated, not strongly suggestive of acute decompensated heart failure. Troponin I: <0.010 - no evidence of acute myocardial injury. Urinalysis and culture: Ordered and pending. Imaging: Non-contrast CT head: No acute intracranial hemorrhage or mass effect. Chronic microvascular ischemic changes noted. Skin thickening observed along the left posterior scalp without underlying bony abnormality. EKG: Normal sinus rhythm (NSR) with no ST elevations. Assessment: Chronic dizziness and recurrent falls likely multifactorial: underlying chronic microvascular ischemic changes, mild anemia, possible nutritional component, and age-related balance/gait instability. No evidence of acute stroke, intracranial hemorrhage, cardiac ischemia, or electrolyte derangement. Plan: Admit to internal medicine for further evaluation and management. Implement fall precautions. Encourage oral intake; monitor nutritional and volume status. Follow-up on urine studies. Monitor vital signs and mental status. PT/OT evaluation for mobility and fall risk. Problems Addressed: Weakness: acute illness or injury with systemic symptoms Amount and/or Complexity of Data Reviewed Labs: ordered. Radiology: ordered. Risk Prescription drug management. Flowsheet Documentation: Scoring Tools: No data recorded Disposition/Condition: ED Disposition ED Disposition Admit - Observation Condition -- Comment Provider Care Team:: [facility] [58] Discharge Medications: Patient's Medications START taking these medications No medications on file CONTINUE taking these medications which have NOT CHANGED ALCOHOL SWABS (BD SINGLE USE SWABS REGULAR) PADM Apply to area(s) daily. Monitor Blood Glucose daily BLOOD SUGAR DIAGNOSTIC (TRUE METRIX GLUCOSE TEST STRIP) STRIP Monitor Blood Glucose daily IBUPROFEN 800 MG TABLET Take 1 tablet by mouth every 8 (eight) hours as needed for Pain (scale 4-6). INSULIN NEEDLES, DISPOSABLE, (PHUC PEN NEEDLE) 32 GAUGE X 5/32" NDLE Use as directed INSULIN SYRINGE-NEEDLE U-100 1 ML 27 GAUGE X 1/2" SYRG Use as directed LANCETS (TRUEPLUS LANCETS) 33 GAUGE MISC Monitor Blood Glucose daily MUPIROCIN 2 % OINTMENT Apply to area(s) 3 (three) times daily. OFLOXACIN (OCUFLOX) 0.3 % OPHTHALMIC SOLUTION Place 1 Drop in right eye 3 (three) times daily. PREDNISOLONE ACETATE 1 % OPHTHALMIC SUSPENSION DROPS Place 1 Drop in right eye 4 (four) times daily. SODIUM HYPOCHLORITE 0.25% SOLUTION Apply to area(s) daily. TAMSULOSIN 0.4 MG 24 HR CAPSULE Take 1 capsule by mouth at bedtime for 30 days. START taking Modified Medications as Prescribed No medications on file STOP taking these medications No medications on file Follow-up: Electronically signed by: Ramón Roblero DO 05/28/25 [address] [facility] 2025-05-28 18:30:00 AdmissionCare Guideline: General Observation, Observation Based on the indications selected for the patient, the bed status of Observation was determined to be MET The following indications were selected as present at the time of evaluation of the patient: - Observation Care Admission Criteria - Observation care is indicated for ALL of the following: - Clinical care needed is not appropriate for lower level of care (ie, discharge to outpatient setting not appropriate). - Clinical care (eg, testing, monitoring, or treatment) needed beyond usual emergency department time frame (eg, 3 to 4 hours) - Patient has clinical condition for which observation care is needed, as indicated by 1 or more of the following: - Neurologic condition or finding (eg, Altered mental status, confusion, weakness, dizziness, ataxia, exacerbation of neuromuscular disease or movement disorder, diplopia, neuralgia) Complications and Comorbidities selected: None AdmissionCare documentation entered by: Ramón Roblero [facility] [employer], 29th edition, Copyright ? 2024 [facility] [employer] [facility] All Rights Reserved. [id number]:00 [facility] 2025-05-11 17:33:21 Pt not seen in lobby. [facility] 2025-05-11 15:40:01 Pt arrived by EMS. He is homeless and was dropped off by the storage units and needed ride into town. Lives behind [facility] in [place]. Katarzyna Matias RN [facility] 2025-04-28 18:33:59 Problem: Falls, Risk of Goal: Absence of falls Outcome: Progressing as expected Problem: Mobility - Impaired Goal: Able to achieve maximum mobility level Outcome: Progressing as expected Problem: Discharge Planning Goal: Adequate for discharge Outcome: Progressing as expected Goal: Effective communication Outcome: Progressing as expected Problem: Glucose Control - Initiated in Adult CC Goal: Glucose level within specified parameters Outcome: Progressing as expected Problem: Infection, Risk of or Actual Goal: Absence of infection Outcome: Progressing as expected Problem: Mental Status - Impaired, Risk of Goal: Mental status restored to baseline Outcome: Progressing as expected Goal: Absence of physical injury Outcome: Progressing as expected Problem: Pain Goal: Control of pain at or below patient's documented comfort goal Outcome: Progressing as expected Goal: Reduction in pain sensation Outcome: Progressing as expected Problem: Skin integrity Impaired (Risk or Actual) Goal: Wound healing Outcome: Progressing as expected Goal: Prevention of new skin breakdown Outcome: Progressing as expected Problem: Venous Thromboembolism, (actual or risk of) Goal: Absence of venous thromboembolism (Risk) Outcome: Progressing as expected Goal: Prevent further complications associated with VTE diagnosis (Actual) Outcome: Progressing as expected Martine Campos RN [facility] 2025-04-28 18:25:25 Problem: Falls, Risk of Goal: Absence of falls Outcome: Adequate for discharge Problem: Mobility - Impaired Goal: Able to achieve maximum mobility level Outcome: Adequate for discharge Problem: Discharge Planning Goal: Adequate for discharge Outcome: Adequate for discharge Goal: Effective communication Outcome: Adequate for discharge Problem: Glucose Control - Initiated in Adult CC Goal: Glucose level within specified parameters Outcome: Adequate for discharge Problem: Infection, Risk of or Actual Goal: Absence of infection Outcome: Adequate for discharge Problem: Mental Status - Impaired, Risk of Goal: Mental status restored to baseline Outcome: Adequate for discharge Goal: Absence of physical injury Outcome: Adequate for discharge Problem: Pain Goal: Control of pain at or below patient's documented comfort goal Outcome: Adequate for discharge Goal: Reduction in pain sensation Outcome: Adequate for discharge Problem: Skin integrity Impaired (Risk or Actual) Goal: Wound healing Outcome: Adequate for discharge Goal: Prevention of new skin breakdown Outcome: Adequate for discharge Problem: Venous Thromboembolism, (actual or risk of) Goal: Absence of venous thromboembolism (Risk) Outcome: Adequate for discharge Goal: Prevent further complications associated with VTE diagnosis (Actual) Outcome: Adequate for discharge T Martha White RN [facility] 2025-04-28 17:34:39 Problem: Falls, Risk of Goal: Absence of falls Outcome: Progressing as expected Problem: Mobility - Impaired Goal: Able to achieve maximum mobility level Outcome: Progressing as expected Problem: Discharge Planning Goal: Adequate for discharge Outcome: Progressing as expected Goal: Effective communication Outcome: Progressing as expected Problem: Glucose Control - Initiated in Adult CC Goal: Glucose level within specified parameters Outcome: Progressing as expected Problem: Infection, Risk of or Actual Goal: Absence of infection Outcome: Progressing as expected Problem: Mental Status - Impaired, Risk of Goal: Mental status restored to baseline Outcome: Progressing as expected Goal: Absence of physical injury Outcome: Progressing as expected Problem: Pain Goal: Control of pain at or below patient's documented comfort goal Outcome: Progressing as expected Goal: Reduction in pain sensation Outcome: Progressing as expected Problem: Skin integrity Impaired (Risk or Actual) Goal: Wound healing Outcome: Progressing as expected Goal: Prevention of new skin breakdown Outcome: Progressing as expected Problem: Venous Thromboembolism, (actual or risk of) Goal: Absence of venous thromboembolism (Risk) Outcome: Progressing as expected Goal: Prevent further complications associated with VTE diagnosis (Actual) Outcome: Progressing as expected [facility] 2025-04-28 00:25:41 Problem: Falls, Risk of Goal: Absence of falls Outcome: Progressing as expected Problem: Mobility - Impaired Goal: Able to achieve maximum mobility level Outcome: Progressing as expected Problem: Discharge Planning Goal: Adequate for discharge Outcome: Progressing as expected Goal: Effective communication Outcome: Progressing as expected Problem: Glucose Control - Initiated in Adult CC Goal: Glucose level within specified parameters Outcome: Progressing as expected Problem: Infection, Risk of or Actual Goal: Absence of infection Outcome: Progressing as expected Problem: Mental Status - Impaired, Risk of Goal: Mental status restored to baseline Outcome: Progressing as expected Goal: Absence of physical injury Outcome: Progressing as expected Problem: Pain Goal: Control of pain at or below patient's documented comfort goal Outcome: Progressing as expected Goal: Reduction in pain sensation Outcome: Progressing as expected Problem: Skin integrity Impaired (Risk or Actual) Goal: Wound healing Outcome: Progressing as expected Goal: Prevention of new skin breakdown Outcome: Progressing as expected Problem: Venous Thromboembolism, (actual or risk of) Goal: Absence of venous thromboembolism (Risk) Outcome: Progressing as expected Goal: Prevent further complications associated with VTE diagnosis (Actual) Outcome: Progressing as expected Emanuel Keene RN [facility] 2025-04-27 13:33:22 Problem: Falls, Risk of Goal: Absence of falls Outcome: Progressing as expected Problem: Mobility - Impaired Goal: Able to achieve maximum mobility level Outcome: Progressing as expected Problem: Discharge Planning Goal: Adequate for discharge Outcome: Progressing as expected Goal: Effective communication Outcome: Progressing as expected Problem: Glucose Control - Initiated in Adult CC Goal: Glucose level within specified parameters Outcome: Progressing as expected Problem: Infection, Risk of or Actual Goal: Absence of infection Outcome: Progressing as expected Problem: Mental Status - Impaired, Risk of Goal: Mental status restored to baseline Outcome: Progressing as expected Goal: Absence of physical injury Outcome: Progressing as expected Problem: Pain Goal: Control of pain at or below patient's documented comfort goal Outcome: Progressing as expected Goal: Reduction in pain sensation Outcome: Progressing as expected Problem: Skin integrity Impaired (Risk or Actual) Goal: Wound healing Outcome: Progressing as expected Goal: Prevention of new skin breakdown Outcome: Progressing as expected Problem: Venous Thromboembolism, (actual or risk of) Goal: Absence of venous thromboembolism (Risk) Outcome: Progressing as expected Goal: Prevent further complications associated with VTE diagnosis (Actual) Outcome: Progressing as expected Virgil George RN [facility] 2025-04-26 20:38:09 Problem: Falls, Risk of Goal: Absence of falls Outcome: Progressing as expected Problem: Mobility - Impaired Goal: Able to achieve maximum mobility level Outcome: Progressing as expected Problem: Discharge Planning Goal: Adequate for discharge Outcome: Progressing as expected Goal: Effective communication Outcome: Progressing as expected Problem: Glucose Control - Initiated in Adult CC Goal: Glucose level within specified parameters Outcome: Progressing as expected Problem: Infection, Risk of or Actual Goal: Absence of infection Outcome: Progressing as expected Problem: Mental Status - Impaired, Risk of Goal: Mental status restored to baseline Outcome: Progressing as expected Goal: Absence of physical injury Outcome: Progressing as expected Problem: Pain Goal: Control of pain at or below patient's documented comfort goal Outcome: Progressing as expected Goal: Reduction in pain sensation Outcome: Progressing as expected Problem: Skin integrity Impaired (Risk or Actual) Goal: Wound healing Outcome: Progressing as expected Goal: Prevention of new skin breakdown Outcome: Progressing as expected Problem: Venous Thromboembolism, (actual or risk of) Goal: Absence of venous thromboembolism (Risk) Outcome: Progressing as expected Goal: Prevent further complications associated with VTE diagnosis (Actual) Outcome: Progressing as expected [facility] 2025-04-26 09:30:39 Problem: Falls, Risk of Goal: Absence of falls Outcome: Progressing as expected Problem: Mobility - Impaired Goal: Able to achieve maximum mobility level Outcome: Progressing as expected Problem: Discharge Planning Goal: Adequate for discharge Outcome: Progressing as expected Goal: Effective communication Outcome: Progressing as expected Problem: Glucose Control - Initiated in Adult CC Goal: Glucose level within specified parameters Outcome: Progressing as expected Problem: Infection, Risk of or Actual Goal: Absence of infection Outcome: Progressing as expected Problem: Mental Status - Impaired, Risk of Goal: Mental status restored to baseline Outcome: Progressing as expected Goal: Absence of physical injury Outcome: Progressing as expected Problem: Pain Goal: Control of pain at or below patient's documented comfort goal Outcome: Progressing as expected Goal: Reduction in pain sensation Outcome: Progressing as expected Problem: Skin integrity Impaired (Risk or Actual) Goal: Wound healing Outcome: Progressing as expected Goal: Prevention of new skin breakdown Outcome: Progressing as expected Problem: Venous Thromboembolism, (actual or risk of) Goal: Absence of venous thromboembolism (Risk) Outcome: Progressing as expected Goal: Prevent further complications associated with VTE diagnosis (Actual) Outcome: Progressing as expected Dayana Jenkins RN [facility] 2025-04-26 01:24:03 Problem: Falls, Risk of Goal: Absence of falls Reactivated Problem: Mobility - Impaired Goal: Able to achieve maximum mobility level Reactivated Problem: Discharge Planning Goal: Adequate for discharge Reactivated Goal: Effective communication Reactivated Problem: Glucose Control - Initiated in Adult CC Goal: Glucose level within specified parameters Reactivated Problem: Infection, Risk of or Actual Goal: Absence of infection Reactivated Problem: Mental Status - Impaired, Risk of Goal: Mental status restored to baseline Reactivated Goal: Absence of physical injury Reactivated Problem: Pain Goal: Control of pain at or below patient's documented comfort goal Reactivated Goal: Reduction in pain sensation Reactivated Problem: Skin integrity Impaired (Risk or Actual) Goal: Wound healing Reactivated Goal: Prevention of new skin breakdown Reactivated Problem: Venous Thromboembolism, (actual or risk of) Goal: Absence of venous thromboembolism (Risk) Reactivated Goal: Prevent further complications associated with VTE diagnosis (Actual) Reactivated T [facility] 2025-04-25 23:30:00 Patient is not able to remember his home medications. [facility] 2025-04-25 21:38:00 Patient admitted to [facility] for diagnosis of AMS and hypoglycemia. Patient agrees to admission, discussed plan of care with patient and family. Patient RR is even and unlabored on RA. Color appropriate for race. PIV intact x2. No adverse reaction to medications administered while in ED. Belongings with patient to unit. [facility] 2025-04-25 21:33:39 Nurse Report Report given to Niall HENSON. Chief complaint, assessment findings, infusion verify and orders reviewed. Bre Irving RN [facility] 2025-04-25 17:25:38 Pt brought in by [facility]. EMS report: EMS called once for lift assist and then called again because pt was just sitting hunched over and weak. 20g IV to left hand and 150mL of NS given [employer]. BG 69. PMHx: ETOH abuse Bre Irving RN [facility] 2025-04-25 17:19:00 EMERGENCY DEPARTMENT ENCOUNTER Formerly [facility] Patient Name: Raj Morales Date of : 1955 70 year old Exam [facility] Primary Care Physician: Rakesh Hazel [facility] Patient Escorted by: Self [9] Mode of Arrival: EMS - [facility] ([place]) [43] EMS Treatment Prior to ED Arrival: [employer] treatment: IVF ED Events Date/Time Event User Comments 04/25/251734 Medical Screening Begins CHELLE FERNANDEZ MD -- 04/25/251734 First Provider Evaluation CHELLE FERNANDEZ MD -- Chief Complaint Chief Complaint Patient presents with Weakness ED Triage Notes Bre Irving RN 04/25/2025 17:27 Pt brought in by [place] [facility]. EMS report: EMS called once for lift assist and then called again because pt was just sitting hunched over and weak. 20g IV to left hand and 150mL of NS given [employer]. BG 69. 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) 10/12/2019 Cataract OS ONLY Cellulitis of foot, left 04/12/2020 Diabetes Diabetic eye exam 12/01/2019 Added automatically from request for surgery [id number] Dyslipidemia Edema of both legs 02/28/2020 Erectile dysfunction, unspecified erectile dysfunction type 02/28/2020 Essential hypertension 02/28/2020 HTN (hypertension) Hyperlipidemia Obesity (BMI 30-39.9) 03/17/2019 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 Stroke 2017 Type 2 diabetes mellitus with vascular disease 10/12/2019 Upper respiratory tract infection, unspecified type 10/12/2019 Tetanus received in last 5 years: Unknown Past Surgical History Past Surgical History: Procedure Laterality Date COLONOSCOPY N/A 12/30/2019 Surgeon: Glo Finn MD; Location: [facility] CORNEAL TRANSPLANT,LAMELLAR Bilateral KNEE ARTHROSCOPY 1998 OTHER PENETRATING KERATOPLASTY PHACOEMULSIFICATION OF CATARACT WITH INTRAOCULAR LENS IMPLANT Right 03/17/2019 Surgeon: Virgil Martinez MD; Location: [facility] Allergies No Known Allergies Social History Tobacco Use Never smoked or used smokeless tobacco. Vaping Use Never assessed Alcohol Use No. Drug Use No. Review of Systems Review of Systems Constitutional: Negative. Negative for chills, fatigue, fever and unexpected weight change. HENT: Negative. Eyes: Negative. Negative for discharge and itching. Respiratory: Negative. Negative for cough, chest tightness, shortness of breath and wheezing. Cardiovascular: Negative. Negative for chest pain and palpitations. Gastrointestinal: Negative. Negative for abdominal distention, abdominal pain, nausea and vomiting. Genitourinary: Negative. Negative for dysuria, urgency, frequency and flank pain. Musculoskeletal: Negative. Skin: Negative. Negative for color change, pallor and wound. Neurological: Negative. Negative for dizziness, syncope, light-headedness and headaches. Psychiatric/Behavioral: Negative. Negative for agitation and behavioral problems. All other systems reviewed and are negative. Endocrine: Endocrine negative Physical Exam ED Triage Vitals [04/25/25 1727] Weight 90.7 kg (200 lb) Actual or estimated Estimated by patient/family report Height 1.778 m (5' 10") BP 124/68 Pulse 95 Resp 20 Temp 36.5 ?C (97.7 ?F) Temp source Oral SpO2 92 % Measured on Room air Physical Exam Vitals reviewed. Constitutional: Appearance: He is well-developed. HENT: Head: Normocephalic and atraumatic. Eyes: Conjunctiva/sclera: Conjunctivae normal. Cardiovascular: Rate and Rhythm: Normal rate and regular rhythm. Heart sounds: Normal heart sounds. Pulmonary: Effort: Pulmonary effort is normal. No respiratory distress. Breath sounds: Normal breath sounds. No stridor. No wheezing or rales. Abdominal: General: Bowel sounds are normal. There is no distension. Palpations: Abdomen is soft. Tenderness: There is no abdominal tenderness. There is no guarding or rebound. Musculoskeletal: General: Normal range of motion. Skin: General: Skin is warm and dry. Neurological: Mental Status: He is alert and oriented to person, place, and time. Cranial Nerves: No cranial nerve deficit. Sensory: No sensory deficit. Motor: Motor function is intact. Psychiatric: Behavior: Behavior normal. Labs Lab Results CBC WITH DIFF - Abnormal Result Value Ref Range WBC 11.97 (*) 4.20 - 10.70 10*3/?L RBC 3.57 (*) 4.26 - 5.52 10*6/?L HGB 10.1 (*) 12.2 - 16.4 g/dL HCT 30.9 (*) 38.4 - 49.3 % MCV 86.6 81.7 - 95.6 fL MCH 28.3 26.1 - 32.7 pg MCHC 32.7 31.2 - 35.0 g/dL RDW-SD 41.1 38.5 - 51.6 fL RDW-CV 13.1 12.1 - 15.4 % PLT 336 (*) 150 - 328 10*3/?L MPV 9.8 9.8 - 13.0 fL NRBC/100 WBC 0.0 0.0 - 10.0 /100 WBCs NRBC x10 3 <0.01 10*3/?L GRAN MAT (NEUT) % 83.4 % IMM GRAN % 0.70 % LYMPH % 7.0 % MONO % 8.7 % EOS % 0.0 % BASO % 0.2 % GRAN MAT x10 3 (ANC) 9.99 (*) 1.99 - 6.95 10*3/uL IMM GRAN x10 3 0.08 (*) 0.00 - 0.06 10*3/uL LYMPH x10 3 0.84 (*) 1.09 - 3.23 10*3/uL MONO x10 3 1.04 (*) 0.36 - 1.02 10*3/uL EOS x10 3 <0.03 (*) 0.06 - 0.53 10*3/uL BASO x10 3 <0.03 0.01 - 0.09 10*3/uL COMP. METABOLIC PANEL (61993) - Abnormal NA 138 135 - 145 mmol/L K 3.8 3.5 - 5.0 mmol/L CL 107 98 - 108 mmol/L CO2 TOTAL 24 23 - 31 mmol/L AGAP 7 2 - 16 BUN 20 7 - 23 mg/dL GLUCOSE 41 (*) 70 - 110 mg/dL CREATININE 1.12 0.60 - 1.25 mg/dL TOTAL BILI 0.9 0.1 - 1.1 mg/dL CALCIUM 8.6 8.6 - 10.6 mg/dL T PROTEIN 6.2 (*) 6.3 - 8.2 g/dL ALBUMIN 3.4 (*) 3.5 - 5.0 g/dL ALK PHOS 115 34 - 122 U/L ALTv 16 5 - 50 U/L AST(SGOT) 39 13 - 40 U/L eGFR 70.2 mL/min/1.73m2 N-TERMINAL PRO-BNP - Abnormal NT-proBNP 727 <=125 pg/mL URINALYSIS - Abnormal APPEARANCE Clear Clear COLOR Yellow Yellow PH 5.0 4.8 - 8.0 SP GRAVITY 1.019 1.003 - 1.030 GLU U QUAL Normal Normal BLOOD 2+ (*) Negative KETONES 20 mg/dL (*) Negative PROTEIN 30 mg/dL (*) Negative UROBILIN Normal Normal BILIRUBIN Negative Negative NITRITE Negative Negative LEUK THEODORE Negative Negative RBC/HPF 8 (*) 0 - 3 HPF WBC/HPF 3 0 - 5 HPF BACTERIA Few (*) Negative MUCOUS Slight (*) Negative LPF ACETAMINOPHEN - Abnormal ACETAMINOP <10.0 (*) 10.0 - 30.0 ug/mL CREATINE KINASE - Abnormal CK 663 (*) 33 - 194 U/L POCT GLUCOSE (AUTOMATED) - Abnormal POCT GLU 43 (*) 70 - 110 mg/dL GLYCOSYLATED HEMOGLOBIN (A1C) - Abnormal HGB A1C 8.7 (*) 4.0 - 5.7 % LIPASE - Normal LIPASE 24 0 - 220 U/L TROPONIN I - Normal TROPONIN I 0.009 <=0.034 ng/mL URINE DRUG (IMMUNOASSAY) - COMPREHENSIVE DRUG SCREEN W/O REFLEX - Normal AMPHET Negative Negative GARRETT U Negative Negative BENZO U Negative Negative Cocaine Metabolite Negative Negative METHADONE Negative Negative OPIATES Negative Negative PCP Negative Negative THC Negative Negative MAGNESIUM - Normal MAGNESIUM 1.8 1.7 - 2.4 mg/dL FENTANYL (IMMUNOASSAY) - Normal FENTANYL Negative Negative POCT GLUCOSE (AUTOMATED) - Normal POCT GLU 109 70 - 110 mg/dL POCT GLUCOSE (AUTOMATED) - Normal POCT GLU 92 70 - 110 mg/dL ETHANOL ALCOHOL <10 mg/dL SALICYLATE SALICYLATE <10 mg/L MRSA / MSSA SCREEN BY PCR, NARES POCT GLUCOSE(AGE >30DAYS) POCT GLUCOSE(AGE >30DAYS) POCT GLUCOSE(AGE >30DAYS) Imaging CT Head wo contrast Final Result CT HEAD WO CONTRAST, CT CERVICAL SPINE WO CONTRAST HISTORY: Male 70 years Mental status change, unknown cause COMPARISON: 04/20/2025 TECHNIQUE: Noncontrast CT images of the head and cervical spine with multiplanar reformats. FINDINGS: Head: The ventricles and cerebral sulci are normal in size and configuration. No intracranial abnormality such as hemorrhage, edema, mass-effect, midline shift, hydrocephalus or pathologic extra axial fluid collection is appreciated. The basal cisterns are patent. Mild periventricular white matter hypoattenuation, non-specific but likely reflecting chronic small vessel ischemic changes. The vazquez-white matter differentiation is preserved. The calvarium and skull base are intact. Partial opacification of the ethmoid air cells. Cervical: There is straightening of the normal cervical lordosis. Vertebral bodies are normal in height and alignment. No acute fractures or subluxation seen. The prevertebral soft tissues are unremarkable. IMPRESSION No acute intracranial abnormality. No CT evidence of acute cervical injury. CT Cervical spine wo contrast Final Result CT HEAD WO CONTRAST, CT CERVICAL SPINE WO CONTRAST HISTORY: Male 70 years Mental status change, unknown cause COMPARISON: 04/20/2025 TECHNIQUE: Noncontrast CT images of the head and cervical spine with multiplanar reformats. FINDINGS: Head: The ventricles and cerebral sulci are normal in size and configuration. No intracranial abnormality such as hemorrhage, edema, mass-effect, midline shift, hydrocephalus or pathologic extra axial fluid collection is appreciated. The basal cisterns are patent. Mild periventricular white matter hypoattenuation, non-specific but likely reflecting chronic small vessel ischemic changes. The vazquez-white matter differentiation is preserved. The calvarium and skull base are intact. Partial opacification of the ethmoid air cells. Cervical: There is straightening of the normal cervical lordosis. Vertebral bodies are normal in height and alignment. No acute fractures or subluxation seen. The prevertebral soft tissues are unremarkable. IMPRESSION No acute intracranial abnormality. No CT evidence of acute cervical injury. Orders and Treatments Orders Placed This Encounter Procedures Critical Care CT Head wo contrast CT Cervical spine wo contrast CBC WITH DIFF COMP. METABOLIC PANEL (64590) LIPASE TROPONIN I N-TERMINAL PRO-BNP URINALYSIS URINE DRUG (IMMUNOASSAY) - COMPREHENSIVE DRUG SCREEN W/O REFLEX ETHANOL Salicylate Acetaminophen Magnesium Creatine Kinase Fentanyl (Immunoassay) POCT GLUCOSE (AUTOMATED) POCT GLUCOSE (AUTOMATED) MRSA / MSSA Screen by Haily GASTELUM Glycosylated Hemoglobin (A1C) POCT GLUCOSE (AUTOMATED) POCT GLUCOSE (AUTOMATED) POCT GLUCOSE (AUTOMATED) Cbc with Diff Comp. Metabolic Panel (50236) POCT GLUCOSE (AUTOMATED) POCT Glucose (Age >30 Days) POCT GLUCOSE (AUTOMATED) Consult Podiatry Adult Consult Wound, Ostomy, or Continence Care Team: Wound Care; ADC; WOC Nurse Orders Placed This Encounter Medications dextrose 50 % in water (D50W) injection 50 mL enoxaparin (LOVENOX) injection 40 mg DISCONTD: D10W 0.2% NaCl (1/4NS) 1,000 mL with KCL 20 mEq IV Solution dextrose 50 % in water (D50W) injection 25 mL glucagon HCL injection 1 mg Sliding Scale Insulin - Lispro (HumaLOG) DISCONTD: KCL (POTASSIUM CHLORIDE) 20 mEq, sodium chloride 38.52 mEq in dextrose 10 % in water (D10W) 1,000 mL IV infusion sodium hypochlorite 0.25% (DAKIN'S SOLUTION) solution Procedures EKG Time 1842 Rate 83 Normal sinus [place] normal Intervals normal No acute ischemia MDM Patient was evaluated for an emergency medical condition related to Weakness Diagnoses considered but not limited to: Head injury Alcohol intoxication Labs:were ordered, and resulted, any relevant abnormalities were considered. Abnormal Labs Reviewed CBC WITH DIFF - Abnormal; Notable for the following components: Result Value WBC 11.97 (*) RBC 3.57 (*) HGB 10.1 (*) HCT 30.9 (*) PLT 336 (*) GRAN MAT x10 3 (ANC) 9.99 (*) IMM GRAN x10 3 0.08 (*) LYMPH x10 3 0.84 (*) MONO x10 3 1.04 (*) EOS x10 3 <0.03 (*) All other components within normal limits COMP. METABOLIC PANEL (22006) - Abnormal; Notable for the following components: GLUCOSE 41 (*) T PROTEIN 6.2 (*) ALBUMIN 3.4 (*) All other components within normal limits N-TERMINAL PRO-BNP - Abnormal Narrative: Result Indeterminate-Consider causes of NT-proBNP elevation other than Heart failure such as acute coronary syndrome, pulmonary embolism, pulmonary hypertension, sepsis, stroke, and renal dysfunction. URINALYSIS - Abnormal; Notable for the following components: BLOOD 2+ (*) KETONES 20 mg/dL (*) PROTEIN 30 mg/dL (*) RBC/HPF 8 (*) BACTERIA Few (*) MUCOUS Slight (*) All other components within normal limits ACETAMINOPHEN - Abnormal; Notable for the following components: ACETAMINOP <10.0 (*) All other components within normal limits Narrative: Toxic: Greater than 200 ug/mL @ 4 hour post ingestion or greater than 50 ug/mL @ 12 hour post ingestion CREATINE KINASE - Abnormal; Notable for the following components: CK 663 (*) All other components within normal limits POCT GLUCOSE (AUTOMATED) - Abnormal; Notable for the following components: POCT GLU 43 (*) All other components within normal limits GLYCOSYLATED HEMOGLOBIN (A1C) - Abnormal; Notable for the following components: HGB A1C 8.7 (*) All other components within normal limits Narrative: Reference Ranges Normal: <5.7% Prediabetes: 5.7 - 6.4% Diabetes: > 6.5% POCT GLUCOSE (AUTOMATED) - Abnormal; Notable for the following components: POCT GLU 60 (*) All other components within normal limits CBC WITH DIFF - Abnormal; Notable for the following components: RBC 3.43 (*) HGB 9.6 (*) HCT 29.2 (*) MPV 9.4 (*) GRAN MAT x10 3 (ANC) 7.13 (*) MONO x10 3 1.21 (*) All other components within normal limits COMP. METABOLIC PANEL (29239) - Abnormal; Notable for the following components: GLUCOSE 236 (*) CALCIUM 8.1 (*) T PROTEIN 5.4 (*) ALBUMIN 2.7 (*) All other components within normal limits POCT GLUCOSE (AUTOMATED) - Abnormal; Notable for the following components: POCT GLU 266 (*) All other components within normal limits POCT GLUCOSE (AUTOMATED) - Abnormal; Notable for the following components: POCT GLU 181 (*) All other components within normal limits Imaging:This is a teaching institution and preliminary studies are read by physicians in training. A final read by a radiologist will be confirmatory of preliminary studies or may include addenda. A reasonable attempt will be made to contact the patient or family to communicate findings if necessary. ED Course as of 04/26/25922Apr 25, 2025 192 Bed requested [DN] ED Course User Index [DN] Chelle Fernandez MD Diagnosis/Impression as of 04/26/25922 Altered mental status, unspecified altered mental status type Hypoglycemia AdmissionCare Guideline: Hypoglycemia, Inpatient Based on the indications selected for the patient, the bed status of Inpatient was determined to be MET The following indications were selected as present at the time of evaluation of the patient: - Clinical Indications for Admission to Inpatient Care - Admission is indicated for 1 or more of the following: - Altered mental status (ie, different from baseline) that is severe or persistent, as indicated by 1 or more of the following: - Obtundation (ie, arousable only with strong stimuli, lessened interest in environment, slowed responses to stimulation) AdmissionCare documentation entered by: Chelle Fernandez [facility] [employer], 29th edition, Copyright ? 2024 [facility] [employer] [facility] All Rights Reserved. [id number]:22:07-05:00 Medical Decision Making Problems Addressed: Altered mental status, unspecified altered mental status type: acute illness or injury Hypoglycemia: acute illness or injury Amount and/or Complexity of Data Reviewed Labs: ordered. Decision-making details documented in ED Course. Radiology: ordered and independent interpretation performed. Decision-making details documented in ED Course. Risk Prescription drug management. Decision regarding hospitalization. Pulse Oximetry: is not hypoxic. Interpreted. Reassessment:gradually improving Communication with student union consultant: Internal Medicine Limitations to patient care and compliance: none. Plan & Summary: The patient is a 70-year-old gentleman who presents for altered mental status. EMS was called out for lift assist and the patient was noted to be altered and lethargic. The patient is fully conversational here in the ED. Workup demonstrates that he is hypoglycemic. Radiographic imaging does not demonstrate any acute process. Hematological and chemistry studies are not emergent at this time. The patient was given an amp of D50 for hypoglycemia. Troponin negative. EKG did not demonstrate a STEMI or any ectopy. The patient will require inpatient management. He is admitted to the [facility] in guarded condition. Raj Morales is a 70 year old male presenting for complaint(s) listed within the note. Admitted to . Case discussed and level of care determined with admitting provider. History, physical exam findings, results of visit, diagnosis, medication regimens and plan of future care have been considered. Additional MDM may be found in the ED course. Vital signs were rechecked before final disposition and determined to be expected for patient's clinical condition. Disposition & Follow Up ED Disposition ED Disposition Admit - [facility] Condition -- Comment -- Current Discharge Medication List STOP taking these medications ibuprofen 800 mg tablet Comments: Reason for Stopping: mupirocin 2 % ointment Comments: Reason for Stopping: Alcohol Swabs (BD SINGLE USE SWABS REGULAR) PadM Comments: Reason for Stopping: blood sugar diagnostic (TRUE METRIX GLUCOSE TEST STRIP) strip Comments: Reason for Stopping: lancets (TRUEPLUS LANCETS) 33 gauge Misc Comments: Reason for Stopping: Insulin Syringe-Needle U-100 1 mL 27 gauge x 1/2" Syrg Comments: Reason for Stopping: Insulin [place], Disposable, (PHUC PEN NEEDLE) 32 gauge x 5/32" Ndle Comments: Reason for Stopping: ofloxacin (OCUFLOX) 0.3 % ophthalmic solution Comments: Reason for Stopping: prednisoLONE acetate 1 % ophthalmic suspension drops Comments: Reason for Stopping: Chelle Fernandez Jr., MD Clinical Computer Repairer [facility] Emergency Department [employer] is used frequently and may produce errors. Promptly contact for obvious discrepancies. Chelle Fernandez MD 04/26/25 7521 [facility] 2025-04-25 17:19:00 Associated Order(s): Critical Care Critical Care Performed by: Chelle Fernandez MD Authorized by: Chelle Fernandez MD Critical care provider statement: Critical care time (minutes): 60 Critical care time was exclusive of: Separately billable procedures and treating other patients and teaching time Critical care was necessary to treat or prevent imminent or life-threatening deterioration of the following conditions: Metabolic crisis Critical care was time spent personally by me on the following activities: Development of treatment plan with patient or surrogate, evaluation of patient's response to treatment, examination of patient, obtaining history from patient or surrogate, ordering and performing treatments and interventions, ordering and review of laboratory studies, ordering and review of radiographic studies, pulse oximetry, re-evaluation of patient's condition and review of old charts Care discussed with: admitting provider Comments: Due to a high probability of clinically significant, life threatening deterioration, the patient required my highest level of preparedness to intervene emergently and I personally spent this critical care time directly and personally managing the patient. This critical care time included obtaining a history; examining the patient; pulse oximetry; ordering and review of studies; arranging urgent treatment with development of a management plan; evaluation of patient's response to treatment; frequent reassessment; and, discussions with other providers. This critical care time was performed to assess and manage the high probability of imminent, life-threatening deterioration that could result in multi-organ failure. It was exclusive of separately billable procedures and treating other patients. [facility] 2025-04-25 17:19:00 AdmissionCare Guideline: Hypoglycemia, Inpatient Based on the indications selected for the patient, the bed status of Inpatient was determined to be MET The following indications were selected as present at the time of evaluation of the patient: - Clinical Indications for Admission to Inpatient Care - Admission is indicated for 1 or more of the following: - Altered mental status (ie, different from baseline) that is severe or persistent, as indicated by 1 or more of the following: - Obtundation (ie, arousable only with strong stimuli, lessened interest in environment, slowed responses to stimulation) AdmissionCare documentation entered by: Chelle Fernandez [facility], 29th edition, Copyright ? 2024 [facility] [employer] [facility] All Rights Reserved. [id number]:07-05:00 [facility] 2025-04-20 08:47:12 Patient stating he wants his walker, advised patient that walker is not in ER. This nurse calling EMS who presented with patient to locate walker. Dispatch to return nurses phone call. Patient in wheelchair, advised not to leave chair and to call for assistance from registation. T Elsa White RN [facility] 2025-04-20 08:46:24 Pt given printed and verbal discharge instructions regarding fall, encouraged hydration. Pt verbalized understanding of instructions, pt awake alert oriented, resp reg unlabored, skin w/d, color appropriate for race, moves all ext well, pt encouraged to follow up with pcp. Advised to seek medical attention for new/prolonged/worsening of symptoms. Symptoms addressed. No adverse reaction to meds given in ER noted upon discharge. PIV d'cd, dressing to site, catheter intact. Pt leaving in wheelchair, in no apparent distress. [facility] 2025-04-20 08:08:08 CC removed. [facility] 2025-04-20 06:59:00 Nurse Report Report received from SIXTO Kilgore. Chief complaint, assessment findings, and orders reviewed. Plan of care discussed with both nurses. Elsa White RN [facility] 2025-04-20 06:23:49 CC: fall from seated wheelchair. C/o neck pain and headache. Unknown LOC. Jame Sharp RN [facility] 2025-04-20 06:22:00 Associated Order(s): EKG-12 Lead ONCE Pre-Procedure Diagnose(s): Fall, initial encounter Post-Procedure Diagnose(s): Fall, initial encounter [facility] Emergency Department Note Patient Name: Raj Morales Date of : 1955 70 year old male Treatment Room: [place] [address] Primary Care Physician: Rakesh Hazel Patient Escorted by: Self [9] Mode of Arrival: EMS - [facility]) [43] EMS Treatment Prior to ED Arrival: [employer] treatment: None Travel and Exposure Screening: Symptoms Does patient have any of these symptoms?: (not recorded) Exposure Screening Has patient had contact with someone with a communicable disease in the last month?: (not recorded) Diseases exposed to:: (not recorded) Is Patient ?: (not recorded) Exposure Date: (not recorded) Chief Complaint: Chief Complaint Patient presents with Fall History of Present Illness: History of Present Illness 70 y.o. male h/o DM, HTN, CVA, chronic wounds to BLE, now s/p fall from seated chair with c/o headache and neck pain. Denies LOC. 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 Vaping Use Never assessed Alcohol Use No. Drug Use No. Past Surgical History: Past Surgical History: Procedure Laterality Date COLONOSCOPY N/A 12/30/2019 Surgeon: Glo Finn MD; Location: [facility] OR [facility] CORNEAL TRANSPLANT,LAMELLAR Bilateral KNEE ARTHROSCOPY 1999 OTHER PENETRATING KERATOPLASTY PHACOEMULSIFICATION OF CATARACT WITH INTRAOCULAR LENS IMPLANT Right 03/17/2019 Surgeon: Virgil Martinez MD; Location: [facility] OR [facility] Review of Systems: Review of Systems Constitutional: Positive for fatigue. HENT: Negative. Eyes: Negative. Respiratory: Negative. Breasts: Negative. Cardiovascular: Negative. Gastrointestinal: Negative. Genitourinary: Negative. Musculoskeletal: Negative. Skin: Negative. Neurological: Negative. Psychiatric/Behavioral: Negative. Endocrine: Endocrine negative Physical Exam: Physical Exam ED Triage Vitals [04/20/25 0624] Weight 90.7 kg (200 lb) Actual or estimated Height 1.778 m (5' 10") BP (!) 141/74 Pulse 59 Resp 23 Temp 36.6 ?C (97.8 ?F) Temp src SpO2 97 % Measured on Physical Exam Vitals and nursing note reviewed. Constitutional: General: He is not in acute distress. Appearance: Normal appearance. He is not toxic-appearing. HENT: Head: Comments: Abrasion to forehead Nose: Nose normal. Mouth/Throat: Mouth: Mucous membranes are moist. Eyes: Pupils: Pupils are equal, round, and reactive to light. Cardiovascular: Rate and Rhythm: Normal rate. Pulses: Normal pulses. Pulmonary: Effort: Pulmonary effort is normal. Abdominal: Palpations: Abdomen is soft. Musculoskeletal: General: Normal range of motion. Cervical back: Tenderness present. Skin: General: Skin is warm. Capillary Refill: Capillary refill takes less than 2 seconds. Neurological: General: No focal deficit present. Mental Status: He is alert and oriented to person, place, and time. Mental status is at baseline. Psychiatric: Mood and Affect: Mood normal. Radiology: No orders to display Lab Results: Lab Results - No data to display EKG: If EKG completed, see Procedure Note. Orders and Treatments: Orders Placed This Encounter Procedures CT Head wo contrast CT Cervical spine wo contrast Cbc with Diff Comp. Metabolic Panel (21071) Urinalysis Troponin I No orders of the defined types were placed in this encounter. First Provider Eval: ED Events Date/Time Event User Comments 04/20/25629 Medical Screening Begins WOOD CORNEJO MD -- 04/20/25629 First Provider Evaluation WOOD CORNEJO MD -- ED COURSE Diagnosis/Impression as of 04/20/25 0643 Fall, initial encounter Results Procedures: EKG-12 Lead ONCE Date/Time: 04/20/2025 6:47 AM Performed by: Wood Cornejo MD Authorized by: Wood Cornejo MD ECG interpreted by ED Physician in the absence of a tie cutter: yes Previous ECG: Previous ECG: Unavailable Interpretation: Interpretation: abnormal Rate: ECG rate: 56 ECG rate assessment: bradycardic Rhythm: Rhythm: sinus bradycardia Ectopy: Ectopy: none QRS: QRS axis: Normal QRS intervals: Normal QRS conduction: normal ST segments: ST segments: Non-specific T waves: T waves: non-specific Q waves: Abnormal Q-waves: not present Other findings: Other findings: LVH MDM: Assessment & Plan Medical Decision Making Amount and/or Complexity of Data Reviewed Labs: ordered. Radiology: ordered. A) Mechanical Fall, Scalp Abrasion Disposition/Condition: pending labs and CT(Head and C-spine). Likely home with fall precautions. ED Disposition None Discharge Medications: Patient's Medications START taking these medications No medications on file CONTINUE taking these medications which have NOT CHANGED ALCOHOL SWABS (BD SINGLE USE SWABS REGULAR) PADM Apply to area(s) daily. Monitor Blood Glucose daily BLOOD SUGAR DIAGNOSTIC (TRUE METRIX GLUCOSE TEST STRIP) STRIP Monitor Blood Glucose daily IBUPROFEN 800 MG TABLET Take 1 tablet by mouth every 8 (eight) hours as needed for Pain (scale 4-6). INSULIN NEEDLES, DISPOSABLE, (PHUC PEN NEEDLE) 32 GAUGE X 5/32" NDLE Use as directed INSULIN SYRINGE-NEEDLE U-100 1 ML 27 GAUGE X 1/2" SYRG Use as directed LANCETS (TRUEPLUS LANCETS) 33 GAUGE MISC Monitor Blood Glucose daily MUPIROCIN 2 % OINTMENT Apply to area(s) 3 (three) times daily. OFLOXACIN (OCUFLOX) 0.3 % OPHTHALMIC SOLUTION Place 1 Drop in right eye 3 (three) times daily. PREDNISOLONE ACETATE 1 % OPHTHALMIC SUSPENSION DROPS Place 1 Drop in right eye 4 (four) times daily. START taking Modified Medications as Prescribed No medications on file STOP taking these medications No medications on file Follow-up: PCP Electronically signed by: Wood Cornejo MD 04/20/25 0644 Wood Cornejo MD 04/20/25 0648 [facility] 2025-04-20 06:22:00 [facility] ED Transfer of Care Note. Off-going Physician:Wood Cornejo MD Time of Transfer of Care: 8:04 AM Summary: Raj Morales is a 70 year old male presenting with chief complaint of fall. Pending prior to disposition: Imaging Current interventions: Medications - No data to display Results: Labs Reviewed CBC WITH DIFF - Abnormal; Notable for the following components: Result Value RBC 4.10 (*) HGB 11.5 (*) HCT 35.7 (*) BAND % 3 (*) META % 2 (*) MYELO % 1 (*) MONO % 11 (*) All other components within normal limits COMP. METABOLIC PANEL (37912) - Abnormal; Notable for the following components: NA 133 (*) CO2 TOTAL 19 (*) BUN 32 (*) GLUCOSE 132 (*) CALCIUM 7.8 (*) All other components within normal limits URINALYSIS - Abnormal; Notable for the following components: PROTEIN 30 mg/dL (*) All other components within normal limits POCT GLUCOSE (AUTOMATED) - Abnormal; Notable for the following components: POCT GLU 146 (*) All other components within normal limits TROPONIN I - Normal Narrative: Reference (Normal) Range (defined by the 99th [...] results relative to patient's use of biotin. CT Head wo contrast Final Result No acute intracranial abnormality. No acute fracture or traumatic malalignment of the cervical spine. Preliminary Report Dictated by Resident: Kvng Santos MD., have reviewed this study and agree with the above report. CT Cervical spine wo contrast Final Result No acute intracranial abnormality. No acute fracture or traumatic malalignment of the cervical spine. Preliminary Report Dictated by Resident: Kvng Santos MD., have reviewed this study and agree with the above report. Procedures: Procedures Additional Notes: Diagnosis/Impression as of 04/20/25926 Fall, initial encounter Medical Decision Making Received patient in signout department after a fall from standing, recent blood work was done that showed minimal hyponatremia, but otherwise preserved renal function, UA not concerning for urinary tract infections, no leukocytosis, stable glucose, CT of the head and C-spine did not show any acute abnormality due to trauma, Patient was discharged home in stable condition, advised to have a close follow-up with PCP and return precautions were given Problems Addressed: Fall, initial encounter: acute illness or injury Amount and/or Complexity of Data Reviewed Labs: ordered. Radiology: ordered. Disposition: Discharged Home Social Determinants of Health: none. Diagnoses that have been ruled out: None Diagnoses that are still under consideration: None Final diagnoses: Fall, initial encounter ED Disposition ED Disposition Discharge Condition Stable Comment -- Contact information for follow-up Rakesh Hazel Specialty: FAMILY MEDICINE Relationship: PCP - General PCP - Insurance HMO [address] [facility] [id number] Mo Pollard MD 04/20/25926 EM-EMERGENCY MEDICINE STAFF [facility] Referral ID Status Reason Start Date Expiration Date Visits Re quested Visits Authorized [id number] 1 1 [facility] CenterHmegxtj9283-83-26 14:12:22* Audit-C Score Answer Date of Assessment Author 0 04/10/2025 10:43 PM CDT Ralf Terry RN * * Calculated C-SSRS Risk Score (Lifetime/Recent) Answer Date of Assessment Author No Risk Indicated 04/10/2025 12:20 PM CDT Jacqui Puga RN * Crenshaw Suicide Severity Rating Scale (Screener/Recent Self-Report) Question Answer Date of Assessment Author 1. Wish to be (Past 1 Month) No 025 12:20 PM CDT Jacqui Puga RN 2. Non-Specific Active Suici mohit Thoughts (Past 1 Month) No 04/10/2025 12:20 PM CDT Nancy Puga RN 6. Suicidal Behavior (Lifetime) No 12:20 PM CDT Jacqui Puga RN [facility] CenterLqucoul2656-19-64 14:12:22* Jarrell Washington DO - 04/13/2025 1:54 PM CDT Images from the original note were not included. [facility] Medicine Inpatient Discharge Summary Admitting Provider: [...] Your Medications These medications were sent to [facility] [address], [facility] [address] Hours: [phone] Thursday through Thursday lmkzwuaz acid 250 MG tablet cephalexin 500 MG capsule metFORMIN XR 500 MG 24 hr tablet zinc sulfate 220 (50 Zn) MG capsule Outpatient Follow-Up No future appointments. Test Results Pending at DischargeNone Information Provided to Patient/FamilyI discussed with the patient/family details of the stay. See After Visit Summary which were reviewed and shared with patient/family. Total time spent on Discharge: 40 mins [facility] 04/13/25 1:58 PM [facility] CenterHdbabae2850-36-79 14:12:22* Marjorie Maxwell PTA - 04/13/2025 9:15 AM CDT Treatment Session Note Patient Name: Raj Morales Room #: MH6.634/MH6.634 Today's Date: 04/13/2025 Time in: Start Time: 914 Time out: Stop Time: 944 Total time: Time Calculation (min): 30 min Preferred Language: Slovak Assessment & Plan Assessment: PT Assessment: Pt [...] of Assistance 1: Partial/Mod assistance Transfer To/From: Cfu-ll-Fzabx/Vjpfe-qi-Uge Transfers 2:Level of Assistance 2: Partial/Mod assistance Transfer To/From: Yxb-bx-Kmtjp/Fasyz-eu-Poe Assistive Devices And Adaptive Equipments: Walker, four-wheeled AM-PAC Basic Mobility:AM-[facility] Basic Mobility Inpatient Turning in bed without bedrails: A Lot Lying on back to sitting on edge of flat bed: A Lot Bed to chair: A Lot Standing up from chair: A Lot Walk in room: Total Climbing 3-5 stairs: Total Mobility Inpatient Raw Score: 10 -HLM Goal: 4 Mobility: Highest Level of Mobility Performed (-HLM)-[facility] Goal: 4 Patient Education: Education Documentation Mobility, [...] Physical Therapist: Juhi Clements, PT * En Lagunas, PT - 04/12/2025 7:48 PM CDT PT Treatment Session Note Patient Name: Raj Morales Today's Date: 04/12/2025 Preferred Language: Slovak RM: MH6.634 Time in (Start time): 16:20 [...] Recommendation: Inpatient rehab facility placement Subjective: Mari RN cleared pt for PT treat. Pt agreeable [...] d/t generalized weakness and deconditioning Transfer To/From: Ogh-fb-Pmguc/Datrw-id-Knz Assistive Devices And Adaptive Equipments: Walker, four-wheeled [...] patient is most likely a candidate for group home facility with worsening wounds and may get infected if he continues to remain homeless. vineyard worker and registered nurse hh case manager on the case and will discuss with [...] Comment 1 Notified RN/MD POC Performing Location [place] [address] Basic Metabolic Panel Collection Time: 04/12/25 5:51 [...] Comment 1 Notified RN/MD POC Performing Location [place] [address] I have personally reviewed Labs Medicationsascorbic acid, [...] will benefit from getting placed at a group home facility for continued wound care. Assessment & [...] VTE prophylaxis: enoxaparin (Lovenox) syringe 40 mg [[id number]]Disposition: SNF referral in place. * Katharina Gallo [...] 70 - 99 mg/dL POC Performing Location [facility] Basic Metabolic Panel Collection Time: 04/11/25 [...] awake/alert/non focal Psych: pleasant Skin: no erythema AssessmentDavilizet Morales is a 70 y.o. male presenting [...] VTE prophylaxis: enoxaparin (Lovenox) syringe 40 mg [[id number]]Disposition: Home once medically stable * Juhi Clements, PT - 04/11/2025 11:42 AM CDT Evaluation and Treatment Note Patient Name: Raj Morales Today's Date: 04/11/2025 Pt seen in room: [place] [address] [address] Start Time: 1142 Stop Time: 1212 Time Calculation (min): 30 min Preferred Language: Slovak Assessment & Plan Assessment: During PT evaluation, [...] (!) 190/77 (!) 115 -- -- -- 04/10/252351 -- -- 64 18 95 % 04/10/252350 157/71 100 -- -- -- 04/10/252102 -- -- 65 18 97 % 04/10/252101 (!) 167/90 (!) 116 -- -- -- 04/10/251999 160/69 -- 62 18 97 % 04/10/25 194 155/72 -- 68 20 98 % 04/10/25 193 159/78 98 64 20 98 % 04/10/25 190 (!) 166/75 (!) 101 62 20 97 % 04/10/25 183 156/81 100 -- -- 99 % 04/10/25 173 (!) 164/86 (!) 108 -- -- 98 % 04/10/25 170 158/86 (!) 106 54 -- 98 % Home Living: Type of Home: Homeless Lives With: Alone Home Adaptive Equipment: Other (Comment) (Rollator) Prior Level of Function: Level of Coos: Ambulated with assistive device (comment) (Rollator) ADL [...] upper extremity supported, Left upper extremity supported (WINDOW DRAPER) Static Standing-Level of Assistance: Substantial/Max assistance (x [...] able to acheive upright posture with BUE WINDOW DRAPER with therapist in front with Mod A Transfer To/From: Lze-un-Cdmif/Ovjgj-aw-Syx Assistive Devices And Adaptive Equipments: Walker, four-wheeled (and WINDOW DRAPER) Extremity Assessments:Right Lower Extremity RLE Assessment RLE [...] stairs: Total Mobility Inpatient Raw Score: 11 -[facility] Goal: 4 Static standing (1 or more [...] Evaluation and Treatment Patient Name: Raj MoralesMRN: [id number] Today's Date: 04/11/2025 Time in: Start Time: 1141 Time out: Stop Time: 1212 Total time: Time Calculation (min): 31 min Pt seen in room: 6.634/6.634 Preferred Language: Slovak Assessment & PlanPt is a 70-year-old homeless [...] Walker rolling or standard Prior Function:Level of Co[place]: Ambulated with assistive device (comment) ADL Assistance: [...] w/ RW; however pt attempted w/ radhika WINDOW DRAPER and able to progress to standing; pt had to return to sitting and unable to take further steps at this time due to weakness/fatigue Transfer To/From: Bed, Bty-lh-Wdzii/Ploya-cu-Uej Assistive Devices And Adaptive Equipments: Walker, four-wheeled, Other (radhika WINDOW DRAPER) Functional MobilityFunctional Mobility Functional Mobility: Pt required mod-max assist to maintain standing balance w/ radhika WINDOW DRAPER; difficulty progressing to mobility at this time [...] w/ RW; however pt attempted w/ radhika WINDOW DRAPER and able to progress to standing; pt had to return to sitting and unable to take further steps at this time due to weakness/fatigue Transfer To/From: Bed, Nvh-in-Fugzk/Jxeif-ey-Wca Assistive Devices And Adaptive Equipments: Walker, four-wheeled, Other (radhika WINDOW DRAPER) AM-PAC Daily Activity:Putting on and taking off regular lower body clothing: Total Bathing (including washing, rinsing, drying): Total Toileting, which includes using toilet, bedpan or urinal: Total Putting on and taking off regular upper body clothing: A Lot Taking care of personal grooming such as brushing teeth: A Little Eating Meals: None AM-PAC Daily Activity Raw Score: 12 MobilityHighest Level of Mobility Performed (JH-HLM): Static standing (1 or more minutes) Outcome [...] to improve endurance and activity tolerance for zoroastrianism of independence with IADLs (Progressing) Start: 04/11/25 Expected End: 05/06/25 Treatment Note: If this is the last documented treatment, then it will signify discharge from acute care prior to discharge from the therapy service and will serve as the discharge summary. Valentina Sainz OT [facility]2025-05-22 14:12:22Pending Results Scheduled Orders Name Type [...] on patient's age to complete this topic [facility] CenterYbhakyp2233-65-85 14:12:22 Diagnosis Open wound of both lower ext remities with complication, initial encounter - Primary Open wound of both lower ext remities with complication, initial encounter Non-traumatic rhabdomyolysis Syncope, unspecified syncope type Rhabdomyolysis PAUL (acute kidney injury) (H CC) Type 2 diabetes mellitus COVID-19 virus infection [facility] CenterZcriktw9101-20-32 14:12:22 [place] [address]-05-22 12:14:45 Discharge instructions were given to patient by discharge nurse. Patient's iv was removed and belongings were gathered. Report was called to Angie HENSON at [facility]. NursingMemoJohn Peter Smith HospitalTtqwxog3414-95-36 12:02:24 Discharge packet kept with chart. Primary RN to call report. [facility]2025-05-22 08:00:00 The patient is Moderately Stable - Low risk of patient condition declining or worsening The patient's goals for the shift include rest The clinical goals for the shift include complet dignostic test [facility] CenterRthgbbm9427-57-41 03:46:29 The patient is Moderately Stable - Low risk of patient condition declining or worsening The patient's goals for the shift include rest The clinical goals for the shift include complet dignostic test [facility]2025-05-21 15:21:07 The patient is Moderately Stable - Low risk of patient condition declining or worsening The patient's goals for the shift include rest The clinical goals for the shift include complet dignostic test Over the shift, the patient did not make progress toward the following go [facility]2025-05-21 02:36:52 The patient is Moderately Stable - Low risk of patient condition declining or worsening The patient's goals for the shift include rest The clinical goals for the shift include complet dignostic test [place] 898045-05-20 15:10:21* Ro Calixto - 04/11/2025 3:06 PM CDT CHW unable to reach patient. No phone on file. Case to be closed. [facility] CenterDuheqrt1629-97-22 15:10:21 [facility] CenterNwcndjv8917-94-33 15:10:21 [facility] CenterFvrglxh2909-11-35 13:24:14 Images from the original note were [...] now healed. Wound assessed and redressed by digital media coordinator today Wound Assessment: Wound Location: Right chest [...] room, please check with Central Supply or digital media coordinator. ==== Recommendations: -Turn every 2 hours, uses [...] you have questions. Adilene Ugarte RN, BSN, RASHMI Varela: [phone] [facility]: [phone] [facility] Wound Care Registered NurseMemoriTexas Health Harris Methodist Hospital SouthlakeNwutuoa9085-76-45 04:21:14 Problem: Pain - Adult Goal: Verbalizes/displays adequate comfort level or baseline comfort level Outcome: Progressing Problem: Safety - Adult Goal: Free from fall injury Outcome: Progressing Problem: Discharge Planning Goal: Discharge to home or other facility with appropriate resources Outcome: Progressing Problem: Chronic Conditions and Co-morbidities Goal: Patient's chronic conditions and co-morbidity symptoms are monitored and maintained or improved Outcome: Progressing T [facility] CenterCwdmjnz6512-06-46 22:59:16 The patient is Moderately Stable - Low risk of patient condition declining or worsening The patient's goals for the shift include rest The clinical goals for the shift include completion of diagnostics Over the shift, the patient did not make progress toward the following goals. Barriers to progression include . Recommendations to address these barriers include [facility]2025-05-19 11:46:00 Associated Order(s): ECG 12 lead (arrhythmia) [...] Procedure Abnormality Status --------- ------ Complete Blood Count[[id number]] Abnormal Final result Automated Differential[[id number]] Abnormal Final result Please view results for these tests on the individual orders. TROPONIN I HIGH SENSITIVITY CARESET Narrative: The following orders were created for panel order Troponin I High Sensitivity Careset. Procedure Abnormality Status --------- ------ Troponin I High Sensitiv...[[id number]] Normal Final result Troponin I High Sensitiv...[[id number]] In process Please view results for these tests on the individual orders. TROPONIN I HIGH SENSITIVITY CARESET (1ST HR) POC GLUCOSE UNSOLICITED RESULTS POC Glu 84 POC Performing Location ER XR chest 1 view Final Result Impression: 1. No acute cardiopulmonary abnormalities. Electronically signed by: Ced Patton MD 04/10/2025 05:16 PM CDT Medications sodium chloride (NS) 0.9 % flush [...] ED Physician in the absence of a tie cutter: yes Previous ECG: Previous ECG: Unavailable Interpretation: [...] MADY CHAUHAN Inpatient consult to Hospitalist - [[id number]] Other Date/Time Event User Comments 04/10/25 165 Other Consult Ordered MALINI STOKES Inpatient consult to Nutrition Services - [[id number]] 04/10/251658 Other Consult Ordered MALINI STOKES Inpatient consult to Wound Care - [[id number]] ED Course : ED Course: as of 04/10/25 172ThuApril 10, 2025 164 I gave him an update on his test results and spoke with his about hospitalization. He demonstrates verbal understanding and agrees to hospitalization. [SB] [address] Stokes. Will admit to [...] MADY CHAUHAN Inpatient consult to Hospitalist - [[id number]] Other Date/Time Event User Comments 04/10/25 165 Other Consult Ordered MALINI STOKES Inpatient consult to Nutrition Services - [[id number]] 04/10/25 165 Other Consult Ordered IGLEHARTMALINI Inpatient consult to Wound Care - [[id number]] Applicable prescriptions New Prescriptions No medications on file Disposition:Admit/Observation No follow-up provider specified. Mady Chauhan MD 04/10/25 1722 [facility] HospitalMuukwgt4327-99-50 13:20:20* Consultation (Routine) - Pending Review Specialty Diagnoses / Procedures Referred By Teresa yancey Referred To Contact Family Law Mediator Diagnoses Bilateral lower extremity edema Broderick Bedolla MD [address] [place] [address] Phone: tel: fax: [employer] [address] [place] [address] [address] Phone: tel: fax: Referral ID Status Reason Start Date Expiration Date Visits Requested Visits Authorized [id number] Pending Review Specialty Services Required 04/04/2025 10/01/2025 1 1 [facility] Bjvqikn1758-45-73 13:20:20* [facility] HospitalCoxjsws2081-49-23 13:20:20* Calculated C-SSRS Risk Score (Lifetime/Recent) Answer Date of Assessment Author No Risk Indicated 04/04/2025 7:46 AM CDT Tessie Arora RN * [place] Suicide Severity Rating Scale (Screener/Recent Self-Report) Question Answer Date of Assessment Author 1. Wish to be (Past 1 Month) No 025 7:46 AM ALAINAT Tessie Arora RN 2. Non-Specific Active Suici mohit Thoughts (Past 1 Month) No 04/04/2025 7:46 AM CDT Nicol Arora RN 6. Suicidal Behavior (Lifetime) No 7:46 AM ALAINAT Tessie Arora RN [facility] HospitalKuxzpbi3992-02-33 13:20:20Pending Results Scheduled Orders Name Type Priority [...] on patient's age to complete this topic Henny RecioFcdmhpo1010-05-64 13:20:20 Diagnosis Bilateral lower extremity ed michelle - Primary Henny RecioEleqshr1728-29-62 13:20:20 [facility] Irxzaxv9288-12-60 12:59:13* Calculated C-SSRS Risk Score (Lifetime/Recent) Answer Date of Assessment Author No Risk Indicated 04/04/2025 7:46 AM CDT Tessie Arora RN * [place] Suicide Severity Rating Scale (Screener/Recent Self-Report) Question Answer Date of Assessment Author 1. Wish to be (Past 1 Month) No 025 7:46 AM ALAINAT Tessie Arora RN 2. Non-Specific Active Suici mohit Thoughts (Past 1 Month) No 04/04/2025 7:46 AM CDT Nicol Arora RN 6. Suicidal Behavior (Lifetime) No 7:46 AM CDT Tessie Arora RN [facility] CenterFfdfmdo7818-24-49 12:59:13 [facility] CenterAnjidkw0937-52-25 12:59:13 [facility] CenterApemcbx6938-00-97 12:58:18Community Resource Recommendations [facility] CenterEgtsbnd1304-40-23 12:58:18 [facility] CenterHizetpp5374-74-01 12:58:18* Calculated C-SSRS Risk Score (Lifetime/Recent) Answer Date of Assessment Author No Risk Indicated 04/04/2025 7:46 AM CDT Tessie Arora RN * [place] Suicide Severity Rating Scale (Screener/Recent Self-Report) Question Answer Date of Assessment Author 1. Wish to be (Past 1 Month) No 025 7:46 AM Tessie Hicks RN 2. Non-Specific Active Suici mohit Thoughts (Past 1 Month) No 04/04/2025 7:46 AM CDT Niclo Arora RN 6. Suicidal Behavior (Lifetime) No 5 7:46 AM Tessie Hicks RN [facility] CenterHatfayq8380-33-46 12:58:18* Ro Calixto - 04/04/2025 12:45 PM CDT Patient FTF to request assistance with healthcare services. Provider referral. Referred back to PCP. CHW educated patient on PCP/Medical Home or provided CHW educated patient on ER usage or provided CHW educated patient on CRC or provided CHW educated patient on Good Rx or provided CHW educated patient on [facility] or provided CHW educated patient on Nurseline or provided CHW educated patient on [facility] [place] intermediate list or provided CHW educated patient on [facility] or provided CHW educated patient on [facility] or provided CHW educated patient on [place] [facility] or provided CHW educated patient on [facility] or provided Continuing Care [facility] [address] [facility] [address] Website: [email or web address] Request Status: Accepted Services: Residential Housing Resource for: Housing Stability Languages: Slovak, Kiswahili Cost: Reduced Cost Hours of Operation Thursday -- Thursday 9:00 AM - 4:00 PM Thursday 9:00 AM - 4:00 PM Thursday 9:00 AM - 4:00 PM 9:00 AM - 4:00 PM Thursday 9:00 AM - 4:00 PM Thursday -- [facility] at [facility] [address], [address], [facility] [address] Request Status: Accepted Services: Food Insecurity Services, Food Pantry, Health Education, Help Fill Out Forms, Help Understanding Government Programs Resource for: Adolescent Education, Caregiver Education and Work, Child Education, Financial Resource Strain, Food Insecurity [employer] Network (HFB) - Community Assistance Program (CAP) [address] [facility] [address] Website: https://www.albanytado.org/our-programs/communityassistanceprogram/ Request Status: Accepted Services: Disability Benefits, Government Benefits, Help Fill Out Forms, Navigating the System Resource for: Financial Resource Strain Languages: Slovak, Kiswahili Cost: Free [facility] [address] [facility] [address] Request Status: Accepted Services: Housing Insecurity Services, Mental Health Services, Overnight Mcc Resource for: Caregiver Health, Depression, Housing Stability, Stress The Way Home - Coordinated Access [address] [facility] [address] Website: [email or web address].org/about-us/ Request Status: Accepted Services: Help Find Housing, Navigating the System Resource for: Housing Stability Languages: Slovak Cost: Free Hours of Operation Thursday -- Thursday 8:00 AM - 2:30 PM Thursday 8:00 AM - 2:30 PM Thursday 8:00 AM - 2:30 PM 8:00 AM - 2:30 PM Thursday 8:00 AM - 2:30 PM Thursday -- [address], [facility] [address] Website: referral.Pensqralbany.[employer] Request Status: Accepted Services: Elder Community Support/Recreation, Financial Assistance, Food Pantry, Goods Resource for: Financial Resource Strain, Food Insecurity, Social Connections resource to patient. CHW instructed Patient to make appointment with Community Resource [place] for help with basic needs. Patient was educated on documents needed for the appointment. Follow up needed active. Follow up by ER Navigator or case to be closed. [facility] CenterXygoikk8019-06-71 12:58:18 [facility] CenterReogkwm6909-03-91 07:28:05 Pt given printed and verbal discharge [...] with steady gait, in no apparent distress. ON Panchal RNFlower HospitalSuocbh8948-86-90 06:21:44 CC: trip and fall around 5:45AM. Patient c/o bilateral knee pain, has abrasions on L leg. Patient denies injury to head, no blood thinners. EMS gave 500MG Tylenol [place] 719795-01-29 12:24:26 Pt called from lobby, no response. Pt left before receiving discharge instructions. LEX MANAGER Vandana Gallegos RNSabrina [place] 267895-01-29 11:16:55 Reported fall off of walker, no injuries, no complaints of pain. Patient reporting to EMS that he just wants a new walker. Ambulatory, vitally stable. HX: DM. LEX MANAGER Tiara Bentley [facility]Xyxvbw7137-65-35 15:22:27 TRANSITIONAL CARE MANAGEMENT ASSESSMENT 08/26/2024 Raj Morales [id number] Raj Morales is a 69 year old /White male was admitted on 08/23/24 to [facility]. He was discharged on 08/25/24 with discharge disposition of HR- Routine Discharge. Admitting Physician: Raj Garcia Diagnosis: Principal Diagnosis: Hypoglycemia No linked episodes TCM Pug-xlpi-he-face outreach documentation: CM made follow up call to patient post-discharge. No answer and call went to voicemail. CM left a discreet message with purpose of call and CM's call back information. Two attempts made to reach patient. Discharge Assessment Chart Assessed: 08/26/24 TCM Outreach Completed: 08/26/24 Future Appointments: T Martell [place] 679354-10-04 12:00:32 CM made follow up call to patient post-discharge. No answer and call went to voicemail. CM left a discreet message with purpose of call and CM's call back information. [facility] 12:51:46 Problem: Falls, Risk of Goal: Absence [...] Outcome: Not progressing as expected Sofi Auguste [facility]-44 07:16:04 Problem: Falls, Risk of Goal: Absence [...] specified parameters Outcome: Not progressing as expected Formerly [facility], 1928–19832024-10-02 22:19:08 Problem: Falls, Risk of Goal: Absence [...] within specified parameters Outcome: Progressing as expected [facility] Kamilla Prajapati [facility]Mqsqmv7648-78-35 08:52:09 Problem: Falls, Risk of Goal: Absence [...] parameters Outcome: Progressing as expected T Dayana Jenkins [facility]Mgfwih3002-80-94 23:13:25 Problem: Falls, Risk of Goal: Absence [...] within specified parameters Outcome: Progressing as expected [facility]35[facility]78-21 15:41:50 Problem: Falls, Risk of Goal: Absence [...] venous thromboembolism (Risk) Outcome: Progressing as expected [place] 751454-10-01 14:57:39 Patient admitted to ICU 2101 for diagnosis of Hypoglycemia Patient agrees to admission, discussed plan of care with patient and family. Patient is awake, alert, oriented, resp reg unlabored, color appropriate for race, PIV intact No adverse reaction to medications administered while in ED Belongings with patient to unit [place] 751454-10-01 14:52:51 Nurse Report Report given to curator horticultural museum. Chief complaint, assessment findings, infusion verify and orders reviewed. Plan of care discussed. Patient/family members verbalized understanding. Josselin Saldivar RN [place] 751454-10-01 09:11:44 EMS states pt was in [facility] parking lot and was seen on the ground by bystanders who called 911. The fall was unwitnessed. Pt has abrasions to head and right knee. Complains of left knee pain and does not remember anything from the fall. Bg was 33 when ems arrived. 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 METABOLIC PANEL (47378) - Abnormal NA 136 135 - 145 [...] (AUTOMATED) Cbc with Diff Comp. Metabolic Panel (81021) Lactic Acid Whole Blood Lactic Acid Whole [...] 1/2" Syrg Comments: Reason for Stopping: Insulin [place], Disposable, (PHUC PEN NEEDLE) 32 gauge x [...] Follow-up: Electronically signed by: Riana Paul DO 08/23/241723 [facility] - Blthnh0393-33-04 11:03:58 TRANSITIONAL CARE MANAGEMENT ASSESSMENT 07/04/2024 Raj Morales [id number] Raj Morales is a 69 year old /White male was admitted on 06/23/24 to [facility], ADC MED SURG. He was discharged on 07/01/24 with discharge disposition of HR- Routine Discharge. 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 Hx HTN Hx HLD Hx IDDM w/ peripheral neuropathy Hypomagnesemia resolved 1.7 No linked episodes TCM Pmp-rbgi-yc-face outreach documentation: Discharge Assessment Chart Assessed: 08/12/24 Chart Reviewed - Post Discharge Call Deferred due to Change in Discharge Status.: Discharged to SNF (SNF location: [facility], [address] [place] [address], [place] () [phone] (f) [phone]) TCM Outreach Completed: 07/04/24 Future Appointments: Martell Fallon [facility]Asblrl0999-12-99 15:47:57 Problem: Falls, Risk of Goal: Absence [...] infection Outcome: Adequate for discharge Homa More [facility] SouthZxebae3718-11-24 16:53:03 Problem: Falls, Risk of Goal: Absence [...] infection Outcome: Progressing as expected Kera Mcfadden [facility]Odrglu2489-90-36 23:46:25 Problem: Falls, Risk of Goal: Absence [...] infection Outcome: Progressing as expected Parvin Mcconnell [facility]Kwcegb5371-79-07 06:23:30 Problem: Falls, Risk of Goal: Absence [...] of infection Outcome: Progressing as expected T Jessica Williamson [facility]Lmcrld1222-38-73 19:05:35 Problem: Falls, Risk of Goal: Absence [...] Outcome: Progressing as expected T Martha White [facility]Fflvuf2401-38-76 02:17:10 Problem: Falls, Risk of Goal: Absence [...] Absence of infection Outcome: Progressing as expected [facility] HospitalEcbfyb5605-18-36 16:18:42 Problem: Falls, Risk of Goal: Absence [...] Outcome: Progressing as expected T Anne Cisneros RNFlower HospitalLtubfn1096-89-90 09:23:43 Vancomycin Therapeutic Monitoring Note Pharmacy to monitor vancomycin dosing for patient Raj Morales, [id number]. Primary Physician: Dr. Garcia ID Physician, if [...] 1250 mg IV Q12H scheduled @ 1041, 06/27 1 77 1250 mg IV q12h [...] any questions or concerns. Azar Ugarte PharmD, [facility] Pager: [phone] Azar Ugarte Formerly [facility]2024-08-05 01:59:04 Problem: Falls, Risk of Goal: Absence [...] Absence of infection Outcome: Progressing as expected [facility] HospitalLdwhja2671-71-82 09:56:06 Problem: Falls, Risk of Goal: Absence [...] Outcome: Progressing as expected T Libby Judge [facility]Gtpfat0960-04-40 05:59:09 Problem: Falls, Risk of Goal: Absence [...] Absence of infection Outcome: Progressing as expected [facility] Kamilla Prajapati [facility] SouthItnhgz4971-92-42 18:13:35 Problem: Falls, Risk of Goal: Absence [...] of infection Outcome: Progressing as expected [facility], 1928–19832024-08-03 11:38:31 Summary: Vancomycin Monitoring Vancomycin Therapeutic Monitoring Note Pharmacy to monitor vancomycin dosing for patient Raj Morales, [id number]. Primary Physician: Dr. Garcia ID Physician, if [...] any questions or concerns. Ilene Marroquin PharmD, [facility] Pager: [phone] 06/25/2024 11:38 Ilene Marroquin [facility] - Ilnptp0040-74-87 01:01:18 Problem: Falls, Risk of Goal: Absence [...] of infection Outcome: Progressing as expected T [facility] HospitalYwzblq3050-51-28 16:18:07 Problem: Falls, Risk of Goal: Absence [...] Absence of infection Outcome: Progressing as expected [facility] Digna Rodriguez [facility] SouthZilvlu6812-87-35 14:48:17 Summary: Vancomycin Monitoring Images from the original note were not included. Vancomycin Therapeutic Monitoring Note Pharmacy to monitor vancomycin dosing for patient Raj Morales, [id number]. Primary Physician: Dr. Garcia ID Physician, if [...] Marroquin RPH, RPH 06/24/2024 2:36 PM [facility] Phone: ADC: [phone] [facility] HospitalEiotfw9893-63-00 23:49:41 Problem: Falls, Risk of Goal: Absence [...] infection Outcome: Progressing as expected Enrique Dumont RNFlower HospitalLmwyfh2004-59-77 15:52:58 Patient admitted to 2225 for diagnosis of bacteremia, fall. Patient agrees to admission, discussed plan of care with patient and family. Patient is awake, A&Ox4, RR even and unlabored on RA. Color appropriate for race. PIV intact x1. No adverse reaction to medications administered while in ED. Belongings with patient to unit. Justine Peres [facility] SouthIqkgul0983-73-19 15:14:29 Nurse Report Report given to SIXTO Sawyer. Chief complaint, assessment findings, infusion verify and orders reviewed. Plan of care discussed at bedside with patient and both nurses. Patient/family members verbalized understanding. Justine Peres RN [facility] HospitalEfcity8129-87-02 11:27:44 Patient arrived by [place] [facility] for a fall. EMS reports patient fell off his walker, and the hit the left side of his head. No LOC. BGL 285. Patient is awake and alert, oriented x4. Contusion noted to the left side of the head. Quinn Moyer [facility] SouthNxqfva9559-97-40 11:25:00 AdmissionCare Guideline: Sepsis (and Other Febrile [...] performed) AdmissionCare documentation entered by: Juno Hwang [facility], 28th edition, Copyright ? 2023 [facility] All Rights Reserved. 9941-70-05L27:54:51-05:00 T [facility] HospitalWpuwdl5293-44-07 12:48:08 Pt given printed and verbal discharge [...] gait, in no apparent distress. Elsa White [facility] SouthNmeefu0404-22-51 10:53:49 Patient arrived ambulatory via pov, states he was sent here for positive blood cultures. Patient c/o of abrasion to left chest/axilla area. Patient does not know which referred him here Zarina Mandujano [facility] SouthZvlbvh3676-04-70 10:52:00 Images from the original note were not included. [facility] Emergency Department Note Patient Name: Raj Morales Date of : 1955 69 year old male Treatment Room: [facility] ED [facility] Primary Care Physician: PATIENT DOES NOT HAVE [...] and DC Home. 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) 10/12/2019 Cataract OS ONLY Cellulitis of foot, left 04/12/2020 Diabetes Diabetic eye exam 12/01/2019 Added automatically from request for surgery [id number] Dyslipidemia Edema of both legs 02/28/2020 Erectile [...] N/A 12/30/2019 Surgeon: Glo Finn MD; Location: [facility] CORNEAL TRANSPLANT,LAMELLAR Bilateral KNEE ARTHROSCOPY 1998 OTHER PENETRATING KERATOPLASTY PHACOEMULSIFICATION OF CATARACT WITH INTRAOCULAR LENS IMPLANT Right 03/17/2019 Surgeon: Virgil Martinez MD; Location: [place] Review of Systems: Review of Systems Constitutional: [...] capsule 1,000 mg cephALEXin 500 mg capsule knuhdtbx-oeccocopxj-catrdilum 3.5mg-400 unit- 5,000 unit/gram topical ointment First [...] capsule by mouth 4 (four) times daily. MRVMHENB-QFJRXRYQIZ-ODFAWFAES 3.5MG-400 UNIT- 5,000 UNIT/GRAM TOPICAL OINTMENT Apply [...] as directed LANCETS (TRUEPLUS LANCETS) 33 GAUGE [facility] Monitor Blood Glucose daily LISINOPRIL-HYDROCHLOROTHIAZIDE 10-12.5 MG PER TABLET Take 1 tablet by mouth once daily METFORMIN 1,000 MG TABLET Take 1 tablet by mouth 2 (two) times daily with meals. PayEaseCELLANEOUS MEDICAL SUPPLY [facility] E11.8: dispense Insulin Syringe 31 gauge brand [...] signed by: Mulugeta Palma MD 06/20/24 1210 [place] 751454-07-28 18:04:26 Patient given printed and verbal discharge [...] with steady gait, in no apparent distress. [facility] Jose Brooks RNFlower HospitalTyyend8108-40-86 16:31:13 Finished sandwich, chocolate pudding, half a jello cup and 2 packages of gram crackers. Patient fed him self independently. Tolerated well. [place] 751454-07-28 16:07:28 Provided patient with sandwich, jello, crackers and pudding. Patient swallowing well. Able to feed self independently. [place] 751454-07-28 13:45:00 Patient asked nurse "why are all the kids doing this" (makes hand sign), when nurse clarifies with patient states "there are 2 girls in my room, sitting there and and there (points to empty chairs) and they just crawled under my bed". T [place] 267894-07-28 13:34:00 Patient arrived covered/soaked in urine. Tech and nurse cleaned patient and placed in clean gown. T [place] 267894-07-28 12:34:00 [facility] states: "Came in for chronic bodyaches for 3 years. No new complaints, BGL of 92 mg/dL." Patient states he falls everyday and that he fell today, no idea what time it happened. Patient not sure if the bruise/abrasion on his forehead is from today's fall or not. T Desire Panchal [facility] SouthEvdquh9639-04-91 19:54:51 Pt given printed and verbal discharge [...] find transportation home, in no apparent distress [place] 751454-07-25 18:10:23 Pt presents to ED via [facility] for a fall from standing. EMS states that he tripped on walker. Pt has an abrasion to the forehead and no other c/o. No LOC, and denies dizziness. Hx of stroke Jame Sharp [facility] SouthYhbztr5852-45-55 00:29:11 Pt discharged with diagnosis of fall from standing, right leg swelling, balance problem, encouraged hydration. Printed and verbal instructions reviewed with and given to pt. Pt. verbalized understanding of teaching and recommended follow-up. Denies questions or concerns at this time. Pt wheeled out to lobby at discharge. Appears in no apparent distress. vineyard worker was consulted, pt will be in waiting room until student union consultant arrives. Advised to seek medical attention for new/prolonged/worsening of symptoms. No adverse reaction to meds given in ER noted upon discharge PIV d'cd, dressing to site, catheter in tact. Mel Obando [place] 679354-07-24 23:32:56 Pt was given hygiene supplies and clothes and directed to the shower to take shower and freshen up due to no means to do so. Pt is "homeless". Pt was also given snacks T [place] 267894-07-24 18:07:43 Pt uses a walker to ambulate [place] 751454-07-24 18:00:18 Pt arrived via [place] [facility] with c/o fall and edema to BLE. Pt reports "it feels like my equilibrium is off". Pt has a strong odor of urine. T Hemalatha Saini [place] 679354-07-24 17:52:00 Images from the original note were not included. [facility] Emergency Department Note Patient Name: Raj Morales Date of : 1955 69 year old male Treatment Room: TX5/TX5 Primary Care Physician: PATIENT DOES NOT HAVE A PCP Patient Escorted by: Self [9] Mode of Arrival: EMS - [facility] ([place]) [43] EMS Treatment Prior to ED Arrival: STOCKING AND BOX SHOP SUPERVISOR treatment: IVF;Saline lock Travel and Exposure Screening: [...] 12/01/2019 Added automatically from request for surgery [id number] Dyslipidemia Edema of both legs 02/28/2020 Erectile [...] N/A 12/30/2019 Surgeon: Glo Finn MD; Location: [place] CORNEAL TRANSPLANT,LAMELLAR Bilateral KNEE ARTHROSCOPY 1998 OTHER PENETRATING KERATOPLASTY PHACOEMULSIFICATION OF CATARACT WITH INTRAOCULAR LENS IMPLANT Right 03/17/2019 Surgeon: Virgil Martinez MD; Location: [place] Review of Systems: Review of Systems Cardiovascular: [...] 0.01 - 0.09 10*3/uL COMP. METABOLIC PANEL (77976) - Abnormal NA 136 135 - 145 [...] CONTRAST Cbc with Diff Comp. Metabolic Panel (44405) Lactic Acid Whole Blood Lactic Acid Whole Blood D-Dimer No orders of the defined types were placed in this encounter. First Provider Eval: ED Events Date/Time Event User Comments 06/15/241801 Medical Screening Begins DEJON GREEN MD -- 06/15/241801 First Provider Evaluation DEJON GREEN MD -- ED COURSE Diagnosis/Impression as of 06/15/241 Fall from standing, initial encounter Right leg [...] as directed LANCETS (TRUEPLUS LANCETS) 33 GAUGE [facility] Monitor Blood Glucose daily LISINOPRIL-HYDROCHLOROTHIAZIDE 10-12.5 MG PER TABLET Take 1 tablet by mouth once daily METFORMIN 1,000 MG TABLET Take 1 tablet by mouth 2 (two) times daily with meals. MISCELLANEOUS MEDICAL SUPPLY [facility] E11.8: dispense Insulin Syringe 31 gauge brand [...] Electronically signed by: Dejon Green DO 06/15/242220 [facility] HospitalXwncim6381-54-16 05:25:21 Pt given printed and verbal discharge [...] by wheelchair, in no apparent distress. T [facility] HospitalXmrbby5258-07-04 01:49:35 Pt brought in by [facility] for wound on right foot and elevated blood sugar. EMS reports pt's blood glucose was 580 T Milli Lopez RNFlower HospitalIwwbit4337-79-44 01:31:00 Images from the original note were not included. [facility] Emergency Department Note Patient Name: Raj Morales Date of : 1955 69 year old male Treatment Room: OK6/OK6 Primary Care Physician: PATIENT DOES NOT HAVE A PCP Patient Escorted by: Self [9] Mode of Arrival: EMS - [facility] ([place]) [43] EMS Treatment Prior to ED Arrival: STOCKING AND BOX SHOP SUPERVISOR treatment: service team leader;FSBG;IVF;Saline lock Travel and Exposure Screening: Symptoms Does [...] of Present Illness: History provided by: Patient automotive parts interpreter used: No Foot Pain Location: Foot Time [...] 12/01/2019 Added automatically from request for surgery [id number] Dyslipidemia Edema of both legs 02/28/2020 Erectile [...] N/A 12/30/2019 Surgeon: Glo Finn MD; Location: [facility] CORNEAL TRANSPLANT,LAMELLAR Bilateral KNEE ARTHROSCOPY 1999 OTHER PENETRATING KERATOPLASTY PHACOEMULSIFICATION OF CATARACT WITH INTRAOCULAR LENS IMPLANT Right 03/17/2019 Surgeon: Virgil Martinez MD; Location: [facility] Review of Systems: Review of Systems Constitutional: [...] 0.01 - 0.09 10*3/uL COMP. METABOLIC PANEL (04827) - Abnormal NA 126 (*) 135 - [...] (AUTOMATED) Cbc with Diff Comp. Metabolic Panel (92902) Magnesium Urinalysis POCT GLUCOSE (AUTOMATED) POCT GLUCOSE [...] with instructions to follow up at the [facility] within 3 days for wound check. Diagnosis/Impression [...] as directed LANCETS (TRUEPLUS LANCETS) 33 G[facility]GE [facility] Monitor Blood Glucose daily LISINOPRIL-HYDROCHLOROTHIAZIDE 10-12.5 MG PER TABLET Take 1 tablet by mouth once daily METFORMIN 1,000 MG TABLET Take 1 tablet by mouth 2 (two) times daily with meals. MISCELLANEOUS MEDICAL SUPPLY [facility] E11.8: dispense Insulin Syringe 31 gauge brand [...] signed by: Mulugeta Palma MD 04/06/24 0351 [facility] - Vuzrgy2332-60-32 17:51:06 Pt given printed and verbal discharge [...] noted upon discharge and exit from ED. [place] 267894-05-12 17:21:48 Images from the original note were not included. ER Weekend Ocean Fishing Guide note: 04/03/2024 5:21 PM Met with the patient in room. Patient Aox4. [place] [address]. The patient was provided with cab voucher # [id number] Contacted [employer] [phone] Richard Maurer PhD, VIDEO PRODUCER, LCDC Care Management- Social Work Department of Care Management The [address] [address] O [phone] E [email or web address] Richard Maurer [facility]2024-05-12 16:49:23 Dc after fluids [place] 23474-05-12 16:45:00 PT much more awake and alert. Pt provided with taxi voucher, food tray given. T [place] 68959-05-12 15:18:54 Orthostatics 3:19 PM Lying: BP: 158/88 P: 87 Sitting: BP: 130/77 P: 86 Standing: BP: 126/71 P: 82 [facility] - Neybno0334-24-50 14:51:50 Images from the original note were not included. ER Weekend Ocean Fishing Guide note: 04/03/2024 2:51 PM RENEE met with the patient at the bedside. Initially, the patient was drowsy and unable to answer most questions. However, he expressed readiness to move to a personal fdc and was willing to pay for it. RENEE contacted Ms. Weiss from [facility] ( ) and Madhavi Abraham ( ), who explained the financial requirements for staying at their personal care homes. They said he needed to pay a bit upfront and use some of his social security for the home. RENEE also spoke with Royer from [facility] and faxed clinicals for a pending Medicaid bed. Later, RENEE talked to Pan from [facility] about the referral made [...] disagreed with the plan for a personal fdc, stating he receives around $900 in social security benefits (contradicting his earlier statement of $1200 to $1400) and did not want to pay for his stay. He expressed a preference for going to a intermediate. RENEE contacted Grover, Sales Donor Recruitment Representative of the [email or web address] [employer], to secure a bed and discussed this with the patient. The patient agreed to go to the [email or web address] [employer] intermediate. RENEE informed him about a meeting with [facility] social media manager Sonia Prajapati Thursday morning. The patient expressed unawareness of the meeting, so RENEE requested him to answer the phone when [facility] RENEE calls. RENEE also emailed [facility] social media manager Sonia Prajapati regarding the situation, seeking her assistance. Richard Maurer PhD, VIDEO PRODUCER, DC Care Management- Social Work Department of Care Management The [address] [place] [address] O [phone] E [email or web address] HospitalSzcrfh3999-02-96 09:48:46 Pt to ED c/o falls that [...] in lowest position. Call light within reach. [facility] HospitalWbdalm7345-56-61 09:40:55 Raj Morales is a 69 year old male presents to ED triage with chief compliant of falls. EMS states that he has had multiple falls today, patient has a small abrasions to L forehead.- blood thinners. AAOx4. Skin warm and dry. VSS. RR E/U. NAD noted. Roomed for eval Parvin José RNFlower HospitalJvbhpn2508-80-30 09:39:00 Associated Order(s): EKG-12 Lead ROUTINE ONCE Pre-Procedure Diagnose(s): Fall, initial encounter; Injury of head, initial encounter Post-Procedure Diagnose(s): Fall, initial encounter; Injury of head, initial encounter Images from the original note were not included. 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/2019 • Cataract OS ONLY • Cellulitis of foot, left 04/12/2020 • Diabetes • Diabetic eye exam 12/01/2019 Added automatically from request for surgery [id number] • Dyslipidemia • Edema of both legs [...] N/A 12/30/2019 Surgeon: Glo Finn MD; Location: [facility] • CORNEAL TRANSPLANT,LAMELLAR Bilateral • KNEE ARTHROSCOPY 1998 • OTHER • PENETRATING KERATOPLASTY • PHACOEMULSIFICATION OF CATARACT WITH INTRAOCULAR LENS IMPLANT Right 03/17/2019 Surgeon: Virgil Martinez MD; Location: [facility] OR Location Review of Systems: Review of Systems Constitutional: [...] but is agreeable to go to the [email or web address] [employer]. Will reassess shortly [CD] 1433 AMMONIA(!): <9 [...] subsequently to follow commands. The nurse from [facility] rehab was trying to assess the patient, [...] ED Physician in the absence of a tie cutter: yes Previous ECG: Previous ECG: Compared to [...] as directed LANCETS (TRUEPLUS LANCETS) 33 [facility] Monitor Blood Glucose daily LISINOPRIL-HYDROCHLOROTHIAZIDE 10-12.5 MG PER TABLET Take 1 tablet by mouth once daily METFORMIN 1,000 MG TABLET Take 1 tablet by mouth 2 (two) times daily with meals. [facility]PITALCELLThe [facility] E11.8: dispense Insulin Syringe 31 gauge brand [...] Electronically signed by: Ana Hagan MD 04/03/24 1654 [facility] Wecwgd7529-08-68 19:41:41 Pt discharged to home. Discharge instructions given to pt regarding management of condition and instructions to follow up with PCP. Pt verbalized understanding. PIV removed without complications. Patient in possession of all belongings. [facility]. Kunal Joiner [facility]92[facility]58 19:37:16 DISCHARGE HOLD: Pt requesting compression stockings. Materials management contacted. [facility]6371[facility]-05 12:35:04 Raj Morales is a 69 year old male presenting to ED with c/o fall. Patient reports using walker and reports stepped off a curb and fell. Patient reports hitting head on ground but denies LOC. No use of blood thinners. BGL "HI" for EMS. Patient received 400cc NS STOCKING AND BOX SHOP SUPERVISOR. BGL 526. Patient to green chairs due to ED saturation Shavon Linares [facility]Wuwsuo9099-05-34 18:51:55 Raj Morales verbalized an understanding of DC instructions. NAD. Respirations unlabored. Pt wheeled out to the ER lobby. Pt given cleaning wipes and reports he needs to get dressed prior to going to ER lobby. RENEE Gusman spoke with patient regarding transport. Porsha Encarnacion [facility] SouthZlycpq9264-35-96 18:44:41 Images from the original note were [...] pt never got back to her. This [facility] encouraged him to give her a call to arrange the housing she set up for him. HAIDER Sam [employer] F[employer] Guide [facility] - Care Management RENEE Office [email or web address] Naseem Argueta [place] 444904-05-07 14:46:31 Raj Morales is a 69 year old male presenting to ED via [facility] with c/o back pain. Patient reports mechanical fall earlier today with no LOC. No use of blood thinners. Patient to green chairs due to ED saturation Shavon Linares [place] [id number] 16:51:23 Naseem gallo/ social work is working on getting pt a ride. DC hold until completed. Mina Ordaz [facility]Eflfrr8355-15-15 13:07:59 Social work at bedside. [place] 267894-04-30 13:07:00 Images from the original note were not included. ED [facility] Case Note 03/22/2024 5:13 PM Transportation arranged via [employer] . Patient name: Raj Morales Discharge date: 03/22/2024 Reason for voucher: Pt doesn't have a means of transportation Voucher #: [id number] met with pt face to face Pt is AOX [address] [place] [address] In the future pt is made aware that they will need to find a ride home, unless they are non-ambulatory. Pt was made aware that the [facility] bus transportation picks up right in [...] LBSW gathered the following resources for pt; [facility] Resources Packet [employer] Non-Emergency Medical Transport Form [facility] Information/Registration Packet [facility] Flyer [place] services available/schedule form [facility] Flyer GoodRx Card 03/22/2024 3:33 [...] PM This LBSW sent referral to Magda ([address] [address] ) to work him up for possibly inpt. Rehab 03/22/2024 1:07 PM This LBSW was consulted by SIXTO Enriquez regarding pt's need for housing and a new walker. This LBSW met with pt at bed side pt shared the following: - Pt has uncontrolled diabetes that hinders him from walking w/o assistance. - Pt has a daughter that lives in [place] that he is estranged from. 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 - Pt is currently homeless - Pt has [employer] as health insurance - Pt gets between $1300-$1400 a month from social security - Pt stays in front of [employer] [place] - Pt has [...] gait and steadiness of walking HAIDER Sam [employer] Fishing Guide [facility] - Care Management Office [email or web address] Naseem MALONEYFlower HospitalBxhvkn1933-71-09 13:04:31 Pt requested help from social work for an upgraded walker and questions about housing options other than the [facility] [employer]. Social work was called. Will relay the message to pt. [facility], 1928–19832024-04-30 11:08:13 Pt to XR [facility] 1928–19832024-04-30 09:54:54 Raj Morales is a 69 year old male who presents to the ED with chief complaints of Left foot and leg swelling. Foot is warm to the touch. Pt rates pain as a 10/10. AAOx4. VSS. RR E/U. Skin warm and dry. NAD noted. Roomed for eval. [facility] Parvin José [facility] SouthQpuhkk9069-48-67 00:01:12 Patient received discharge instructions and voiced [...] with pcp. Pt provided with resources for [facility] Dixon Becerril [facility] SouthBbehfw4049-91-38 23:49:16 Dr. Green informed of pt repeat BGL and pt cleared for discharge Rachana Pettit [place] [id number] 23:48:43 SW bedside [place] [id number] 23:42:25 BGL 213 after completion of 2nd liter of NaCl and 2 hours post 10u IVP insulin [place] 751454-04-19 22:46:08 BGL: 258. This is after the first 1L NaCL and 1 hour post 10u IVP insulin [place] 751454-04-19 21:37:43 Dr. Millard confirmed to give 10u insulin IVP now [place] [address]-04-19 21:30:15 BGL 579. Provider contacted to verify IVP insulin order [place] [address]-04-19 21:19:00 Pt returned from imaging NAD noted T [facility] HospitalNihkzs6732-22-63 20:28:55 Pt ao4 presents via EMS c/o progressive bilateral leg weakness. Pt reports he was suppose to be staying at [facility] but uncomfortable w sleeping conditions at intermediate. EMS glucometer read HI (monitor max at [...] 200ml NaCL given Dr. Millard bedside T [facility] HospitalJajbub4937-47-98 20:16:12 Raj Morales is a 69 year old male presents to ED c/o bilateral leg weakness. Patient reports going on for 2-3 months, worsening tonight and unable to walk up steps to [facility]. Patient Aox4, NAD noted, VSS, RR e/u. STOCKING AND BOX SHOP SUPERVISOR 20g R wrist, BGL HI for EMS. EKG in triage. Patient to room for further evaluation. Lacey Bentley RNFlower HospitalSlayqt6063-79-19 20:15:00 [facility] Emergency Department Note Patient Name: Raj Morales Date of : 1955 69 year old male Treatment Room: 121/121 Primary Care Physician: Rakesh Hazel Patient Escorted by: Self [9] Mode of Arrival: EMS - [facility] [30] EMS Treatment Prior to ED Arrival: STOCKING AND BOX SHOP SUPERVISOR treatment: Saline lock;IVF Travel and Exposure Screening: [...] time walking up the steps of the [employer] due to bilateral leg weakness. Patient states this has been going on for a couple of months but it was worst today. 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) 10/12/2019 Cataract OS ONLY Cellulitis of foot, left 04/12/2020 Diabetes Diabetic eye exam 12/01/2019 Added automatically from request for surgery [id number] Dyslipidemia Edema of both legs 02/28/2020 Erectile [...] N/A 12/30/2019 Surgeon: Glo Finn MD; Location: [facility] CORNEAL TRANSPLANT,LAMELLAR Bilateral KNEE ARTHROSCOPY 1998 OTHER PENETRATING KERATOPLASTY PHACOEMULSIFICATION OF CATARACT WITH INTRAOCULAR LENS IMPLANT Right 03/17/2019 Surgeon: Virgil Martinez MD; Location: [place] Review of Systems: Review of Systems Constitutional: [...] 0.01 - 0.09 10*3/uL COMP. METABOLIC PANEL (30339) - Abnormal NA 130 (*) 135 - [...] VW Cbc with Diff Comp. Metabolic Panel (82851) Creatine Kinase Troponin I POCT GLUCOSE (AUTOMATED) [...] as directed LANCETS (TRUEPLUS LANCETS) 33 GAUGE [facility] Monitor Blood Glucose daily LISINOPRIL-HYDROCHLOROTHIAZIDE 10-12.5 MG PER TABLET Take 1 tablet by mouth once daily METFORMIN 1,000 MG TABLET Take 1 tablet by mouth 2 (two) times daily with meals. MISCELLANEOUS MEDICAL SUPPLY [facility] E11.8: dispense Insulin Syringe 31 gauge brand [...] Follow-up: Electronically signed by: Micah Millard MD 03/11/242328 [place] 751454-03-20 14:56:30 PT D/C home. GCS15, VS stable. Given D/C paperwork. Pt ambulatory at time of discharge. Pt educated on med usage, follow up care, s/s worsening condition, need for hydration. Pt verbalized understanding. [facility] arrived to transport patient. Pt given a care package upon discharge [place] 751454-03-20 14:54:31 Pt finishing food tray [place] [address]-03-20 11:55:54 Pt states he is dizzy when he walks and has pain. Pt reports having these symptoms for months. [facility] Merry Wise [facility] SouthRxvaug6465-23-68 21:15:50 Pt given printed and verbal discharge instructions regarding bilateral low back pain, encouraged hydration, Pt verbalized understanding of instructions,pt encouraged to follow up with pcp Advised to seek medical attention for new/prolonged/worsening of symptoms, No adverse reaction to meds given in ER noted upon discharge Awake, alert oriented, resp reg unlabored, skin w/d, pt leaving in no apparent distress, Chelsea Jackson [facility] SouthRpmxvc1411-64-91 21:08:09 Pt has been discharged for several hours. He is being loaded into a WC at this time to wait in lobby. He asked nursing to call red Qiu. Ms. Gonzalez states that her and her friend are trying to find him a intermediate. At this pt being placed in the lobby. [place] 267894-03-19 14:20:00 Patient c/o lower back pain. Denies injury [place] 267894-03-19 14:01:15 Patient transported by [place] [facility], patient c/o back pain and needed to be cleaned up. Patient is homeless and incontinent of urine. T Quinn Moyer [facility] SouthLdskil7330-04-18 13:59:00 Images from the original note were not included. [facility] Emergency Department Note Patient Name: Raj Morales Date of : 1955 69 year old male Treatment Room: Room/bed info not found Primary Care Physician: Rakesh Hazel Patient Escorted by: Self [9] Mode of Arrival: EMS - [facility] ([place]) [43] EMS Treatment Prior to ED Arrival: STOCKING AND BOX SHOP SUPERVISOR treatment: Saline lock Travel and Exposure Screening: [...] 12/01/2019 Added automatically from request for surgery [id number] Dyslipidemia Edema of both legs 02/28/2020 Erectile [...] N/A 12/30/2019 Surgeon: Glo Finn MD; Location: [facility] CORNEAL TRANSPLANT,LAMELLAR Bilateral KNEE ARTHROSCOPY 1998 OTHER PENETRATING KERATOPLASTY PHACOEMULSIFICATION OF CATARACT WITH INTRAOCULAR LENS IMPLANT Right 03/17/2019 Surgeon: Virgil Martinez MD; Location: [facility] Review of Systems: Review of Systems Constitutional: [...] as directed LANCETS (TRUEPLUS LANCETS) 33 [facility]GE [facility] Monitor Blood Glucose daily LISINOPRIL-HYDROCHLOROTHIAZIDE 10-12.5 MG PER TABLET Take 1 tablet by mouth once daily METFORMIN 1,000 MG TABLET Take 1 tablet by mouth 2 (two) times daily with meals. MISCELLANEOUS MEDICAL SUPPLY [facility] E11.8: dispense Insulin Syringe 31 gauge brand [...] Electronically signed by: Jose Roberto Ireland MD 02/09/240 [facility] HospitalLnorhf1591-23-56 11:48:50 Written/verbal d/c instructions, out of er via wheelchair, pt requests [facility] PD to call [place] [employer], states [employer] told him they would give him a ride back to [facility] [place] to get his cart that he uses to walk, states [employer] hid his cart behind the building while [facility] transported to hospital, [facility] PD agreed to call for pt. Zarina Martin [facility] SouthQzyqmn4809-28-07 09:24:07 [facility] states: "Pt is coming in for chronic back pain. He's had it for over a month now. He's homeless. Has a history of stroke. He does have a cut on his finger that he might need an antibiotic for. His bgl was 202. The police said to call him when he gets discharged and he would take him back to outside of [facility] where he is living. The music copyist also gave him 20 dollars so he should have some money for an antibiotic" Vandana Gallegos [facility] SouthRmfzdg5093-25-77 09:16:00 Images from the original note were not included. [facility] Emergency Department Note Patient Name: Raj Morales Date of : 1955 69 year old male Treatment Room: [facility] FT01/WIIU53-02 Primary Care Physician: Rakesh Hazel Patient Escorted by: Self [9] Mode of Arrival: EMS - [facility] ([place]) [43] EMS Treatment Prior to ED Arrival: [...] He is currently homeless and lives by [employer]. 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) 10/12/2019 Cataract OS ONLY Cellulitis of foot, left 04/12/2020 Diabetes Diabetic eye exam 12/01/2019 Added automatically from request for surgery [id number] Dyslipidemia Edema of both legs 02/28/2020 Erectile [...] N/A 12/30/2019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
[2025-06-30] MEDS ORDERED: VANCOMYCIN 1 GM/VIAL ONE (20:37)
[2025-06-30] MEDS ORDERED: PIPERACIL/TAZO 3.375 GM VIAL IV ONE (20:37)
[2025-06-30] MEDS ORDERED: NA CHLORIDE 0.9% 500 ML ONE (20:37)
[2025-06-30] MEDS ORDERED: NA CHLORIDE 0.9% 1,000 ML ONE (20:37)
[2025-06-30] MEDS ORDERED: NA CHLORIDE 0.9% 100 ML ONE (20:37)
--- NOTE | 2025-06-30 21:02 | RAD REPORT ---
EXAMINATION: US BILATERAL LOWER EXTREMITY VENOUS DOPPLER CLINICAL INDICATION: bilateral leg swelling TECHNIQUE: Complete bilateral duplex sonography of the BILATERAL lower extremity veins was performed. The examination included compression for vein patency, color Doppler imaging and flow augmentation in response to distal compression of the distal external iliac, common femoral, femoral, popliteal, t ibial, and great and small saphenous veins. COMPARISON: No prior exam. FINDINGS: Duplex sonography testing of the veins of the BILATERAL lower extremity was performed. Color flow susan ging shows all veins to be compressible with [id number] color filling. Pulsatile and phasic flow is present within all lower extremity deep and superficial veins examined. IMPRESSION: There is no deep vein or superficial vein thrombosis.
[2025-06-30] MEDS ORDERED: SILVER SULFADIAZINE 1% 25 GM TOP ONE (21:10)
[2025-06-30 21:20] LABS: Absolute Lymphocytes (CBC) 1.3 K/uL (0.7-4.9); Hematocrit 34.8 % (39.6-49.0); Hemoglobin 11.9 g/dL (13.6-17.9); MCH 29.4 pg (27.0-35.0); MCHC 34.3 g/dL (32.0-36.0); MCV 85.7 fL (80-100); MPV 8.0 fL (7.6-11.3); Nucleated RBC Absolute Count 0.0 (0-0); Nucleated Red Blood Cells % 0.0 % (0-0); RBC Red Blood Cell Count 4.06 M/uL (4.33-5.43); White Blood Count 8.80 thou/uL (4.3-10.9)
[2025-06-30 21:27] LABS: PT Prothrombin Time 12.5 SECONDS (10-13.0); Protime INR 1.11
[2025-06-30 21:42] LABS: ALT/SGPT 18 U/L (16-61); AST/SGOT 12 U/L (15-37); Albumin 3.0 g/dL (3.4-5.0); Albumin/Globulin Ratio 0.8 (1.1-1.8); Alkaline Phosphatase 140 U/L (45-117); Anion Gap 10.4 mEq/L (5.0-15.0); BUN Blood Urea Nitrogen 33 mg/dL (7-18); Globulin 3.6 g/dL (2.3-3.5); Glucose Level 351 mg/dL (74-106); Lipase 21 U/L (13-75); Magnesium 2.1 mg/dL (1.6-2.4); NT PRO-BNP 381 pg/mL (<125); Potassium 4.4 mEq/L (3.5-5.1); Troponin High Sensitivity 9.9 pg/mL (<58.9)
[2025-06-30 21:48] LABS: Bilirubin Indirect, Calculated 0.0 mg/dL (0.2-0.8)
[2025-06-30 22:01] LABS: Sqamous Epithelial None Seen /HPF (None Seen); Urine Crystals Unidentified Few /HPF (None Seen); Urine Micro Reflex YN NO BILL MICROSCOPIC
[2025-06-30 22:16] LABS: METHAMPHETAM NEGATIVE (NEGATIVE); THC Cannibis NEGATIVE (NEGATIVE)
--- NOTE | 2025-06-30 22:39 | EDPHYS ---
Physician Documentation [facility] Name: Edwin Linton Age: 70 yrs Sex: Male : 1955 Arrival Date: 06/30/2025 Time: 19:51 Bed 8 Private MD: ED Physician Yonis Araiza HPI: 06/30 19:53 This 70 yrs old Male presents to ER via Unassigned with complaints of sp4 weakness and fall . 22:28 Patient is a very pleasant 70-year-old male who is currently homeless. Patient called [facility] for blistering lesions to bilateral lower extremity. Primarily left foot but also some to the right foot. Left foot associated with left foot redness and pain associated with blistering lesion to the dorsal surface of the foot.. Historical: - Allergies: 20:00 No Known Allergies; me1 - PMHx: 20:00 diabetes mellitus; Hypertensive disorder; Cerebrovascular accident; me1 - PSHx: 20:00 None; me1 - Immunization history:: Adult Immunizations unknown. - Infectious Disease History:: Denies. - Social history:: Smoking status: Patient denies any tobacco usage or history of. - Family history:: not pertinent. ROS: 22:28 Constitutional: Negative for fever, chills, and weight loss, positive bilateral lower sp4 extremity swelling, positive bilateral foot pain redness swelling, positive for blistering to the left foot 22:28 All other systems are negative, Exam: 22:28 Constitutional: Elderly female A ill-appearing male, with bilateral lower foot sp4 swelling, blistering, and cellulitic changes to the right and left foot. Head/Face: Normocephalic, atraumatic. Eyes: Pupils equal round and reactive to light, extra-ocular motions intact. Lids and lashes normal. Conjunctiva and sclera are not injected. Cornea within normal limits. Periorbital areas with no swelling, redness, or edema. ENT: Nares patent. No nasal discharge, no septal abnormalities noted. Tympanic membranes are normal and external auditory canals are clear. Oropharynx with no redness, swelling, or masses, exudates, or evidence of obstruction, uvula midline. Mucous membranes moist. Neck: Trachea midline, no thyromegaly or masses palpated, and no cervical lymphadenopathy. Supple, full range of motion without nuchal rigidity, or vertebral point tenderness. Chest/axilla: Normal chest wall appearance and motion. Nontender with no deformity. No lesions are appreciated. Cardiovascular: Regular rate and rhythm with a normal S1 and S2. No gallops, murmurs, or rubs. No pulse deficits. Respiratory: Lungs have equal breath sounds bilaterally, clear to auscultation and percussion. No rales, rhonchi or wheezes noted. No increased work of breathing, no retractions or nasal flaring. Abdomen/GI: Soft, with normal bowel sounds. No distension or tympany. No guarding or rebound. No evidence of tenderness throughout. Back: No spinal tenderness. No costovertebral tenderness. Skin: Warm, dry with normal turgor. Normal color with no rashes, no lesions, and no evidence of cellulitis. MS/ Extremity: Pulses equal, no cyanosis. Neurovascular intact. Full, normal range of motion. Neuro: Awake and alert, GCS 15, oriented to person, place, time, and situation. Cranial nerves II-XII grossly intact. Motor strength 5/5 in all extremities. Sensory grossly intact. Psych: Awake, alert, with orientation to person, place and time. Behavior, mood, and affect are within normal limits 22:28 ECG was reviewed by the Attending Physician. EKG at 2028 sinus bradycardia rate 59 otherwise normal. Vital Signs: 19:58 Weight 90.72 kg; Height 5 ft. 10 in. ; me1 20:22 BP 146 / 72; Pulse 66; Resp 18; Temp 98.3; Pulse Ox 99% ; Pain 10/10; me1 22:26 BP 147 / 69; Pulse 57; Resp 14; Pulse Ox 99% on R/A; km10 07/01 00:08 BP 137 / 60; Pulse 57; Resp 15 S; Pulse Ox 100% on R/A; lg3 06/30 19:58 Body Mass Index 28.70 (90.72 kg, 177.8 cm) me1 20:22 Pain Scale: Adult me1 Nilsa Coma Score: 06/30 22:28 Eye Response: spontaneous(4). Motor Response: obeys commands(6). Verbal Response: sp4 oriented(5). Total: 15. MDM: 20:04 Medical Screening Exam initiated sp4 22:38 ED course: EXAMINATION: US BILATERAL LOWER EXTREMITYVENOUS DOPPLER CLINICAL INDICATION: sp4 bilateral leg swelling TECHNIQUE: Complete bilateral duplex sonography of the BILATERAL lower extremity veins was performed. The examination included compression for vein patency, color Doppler imaging and flow augmentation in response to distal compression of the distal external iliac, common femoral, femoral, popliteal, tibial, and great and small saphenous veins. COMPARISON: No prior exam. FINDINGS: Duplex sonography testing of the veins of the BILATERAL lower extremity was performed. Color flow imaging shows all veins to be compressible with [id number] color filling. Pulsatile and phasic f low is present within all lower extremity deep and superficial veins examined. IMPRESSION: There is no deep vein or superficial vein thrombosis. . 22:39 Differential diagnosis: cardiac arrhythmia, generalized weakness, hyperventilation, sp4 hypovolemia, idiopathic dizziness, near-syncope, sepsis, syncope, vertigo. 22:40 Data reviewed: vital signs, nurses notes, EMS record, old medical records, lab test sp4 result(s), EKG, radiologic studies, ultrasound. 06/30 19:55 Order name: Basic Metabolic Panel; Complete Time: 21:54 sp4 06/30 19:55 Order name: CBC with Diff; Complete Time: 21:54 sp4 06/30 19:55 Order name: LFT's; Complete Time: 21:54 sp4 06/30 19:55 Order name: Magnesium; Complete Time: 21:54 sp4 06/30 19:55 Order name: NT PRO-BNP; Complete Time: 21:54 sp4 06/30 19:55 Order name: PT-INR; Complete Time: 21:54 sp4 06/30 19:55 Order name: Troponin HS; Complete Time: 21:54 sp4 06/30 19:55 Order name: Alcohol Level; Complete Time: 21:54 sp4 06/30 19:55 Order name: UA W/ Microscopic; Complete Time: 22:24 sp4 06/30 19:55 Order name: UDS; Complete Time: 22:24 sp4 06/30 19:55 Order name: CK; Complete Time: 21:54 sp4 06/30 19:56 Order name: Lipase; Complete Time: 21:54 sp4 06/30 20:14 Order name: Blood Culture Adult (2) [facility] 06/30 23:06 Order name: Wound Culture [facility] 06/30 23:10 Order name: Basic Metabolic Panel [facility] 06/30 23:10 Order name: Basic Metabolic Panel EDMS 06/30 23:10 Order name: Basic Metabolic Panel EDMS 06/30 23:10 Order name: Basic Metabolic Panel EDMS 06/30 23:10 Order name: CBC with Automated Diff EDMS 06/30 23:10 Order name: CBC with Automated Diff EDMS 06/30 23:10 Order name: CBC with Automated Diff EDMS 06/30 23:10 Order name: CBC with Automated Diff EDMS 06/30 20:16 Order name: Extrem Venous W Compression Leonidas US; Complete Time: 21:54 sp4 06/30 19:55 Order name: EKG; Complete Time: 19:55 sp4 06/30 19:55 Order name: Cardiac monitoring; Complete Time: 20:40 sp4 06/30 19:55 Order name: EKG - Nurse/Tech; Complete Time: 20:40 sp4 06/30 19:55 Order name: IV Saline Lock; Complete Time: 21:06 sp4 06/30 19:55 Order name: Labs collected and sent; Complete Time: 21:06 sp4 06/30 19:55 Order name: O2 Per Protocol; Complete Time: 21:07 sp4 06/30 19:55 Order name: O2 Sat Monitoring; Complete Time: 21:07 sp4 06/30 20:14 Order name: Wound Care: Silvadene dressing to left foot ; Complete Time: 21:22 sp4 EC:29 Rate is 59 beats/min. Rhythm is regular, Sinus bradycardia. QRS Lee is Normal. VA sp4 interval is normal. QRS interval is normal. QT interval is normal. No Q waves. T waves are Normal. No ST changes noted. Clinical impression: No evidence of ischemia. Interpreted by me. Reviewed by me. Administered Medications: 19:59 CANCELLED (Inappropriate at this time): boostrix tdap0.5 ml IM once; as a single dose vc1 21:06 Drug: NS 0.9% IV 1000 ml IV at 1 bolus Per protocol; to be given as a bolus over 60 lg3 minutes Route: IV; Rate: 1 bolus; Site: right antecubital; 22:22 Follow up: Response: No adverse reaction; IV Status: Completed infusion; IV Intake: lg3 1000ml 21:06 Drug: vancoMYCIN IVPB 2 grams IVPB at calculated rate once Route: IVPB; Rate: lg3 calculated rate; Site: right hand; 23:19 Follow up: Response: No adverse reaction; IV Status: Completed infusion; IV Intake: lg3 500ml 21:06 Drug: Piperacillin-Tazobactam IVPB 3.375 grams IVPB once over 60 mins; (mix in NS 100 lg3 mL) Route: IVPB; Infused Over: 60 mins; Site: right antecubital; 22:21 Follow up: Response: No adverse reaction; IV Status: Completed infusion; IV Intake: lg3 100ml 21:24 Drug: Silver SulfADIAZINE Topical Cream 1 % 1 application Topical once Route: Topical; lg3 Site: affected area; 22:21 Follow up: Response: No adverse reaction lg3 Disposition Summary: 06/30/25 22:39 Hospitalization Ordered Notes: Hospitalization Status: Inpatient Admission sp4 Provider: Kavon Villegas sp4 Location: Telemetry/MedSurg (Inpatient) sp4 Condition: Stable sp4 Problem: new sp4 Symptoms: are unchanged sp4 Bed/Room Type: Standard sp4 Room Assignment: 414(06/30/25 23:02) kl Diagnosis - Cellulitis of left lower limb sp4 - Cellulitis of right lower limb sp4 - Bilateral lower extremity edema, left foot cellulitis with blistering lesion, sp4 - Problem related to housing and economic circumstances, unspecified sp4 Forms: - Medication Reconciliation Form sp4 - SBAR form sp4 - Leadership Thank You Letter sp4 Signatures: Dispatcher [employer] EDMartha Birch RN RN kl Able, Lacie, RN RN lg3 Yonis Araiza MD MD sp4 Shavon Walls RN RN me1 Collette Valentine RN vc1 Corrections: (The following items were deleted from the chart) 19:58 19:56 Wound Care ordered. sp4 vc1 19:59 19:56 Boostrix Tdap IM 0.5 ml IM once; as a single dose ordered. sp4 vc1 20:01 19:55 Chest Abdomen Pelvis Wo Con+CT.RAD.BRZ ordered. EDMS EDMS 20:01 19:55 Head Brain Wo Cont+CT.RAD.BRZ ordered. EDMS EDMS 20:21 19:58 Elbow Left 3 View+RAD.RAD.BRZ ordered. EDMS EDMS 23:02 22:39 sp4 kl
--- NOTE | 2025-06-30 22:39 | ER ---
Nurse's Notes [facility] Name: Edwin Linton Age: 70 yrs Sex: Male : 1955 Arrival Date: 06/30/2025 Time: 19:51 Bed 8 Private MD: Diagnosis: Cellulitis of left lower limb;Cellulitis of right lower limb;Bilateral lower extremity edema, left foot cellulitis with blistering lesion, ;Problem related to housing and economic circumstances, unspecified Presentation: 06/30 19:58 Chief complaint: EMS states: toned out for swelling to BLE with blisters to bilateral me1 feet. Patient is homeless and cant go to a usp until his feet have been treated. BGl 392, 20 g R hand. Coronavirus screen: Vaccine status: Patient reports being unvaccinated. Ebola Screen: No symptoms or risks identified at this time. Initial Sepsis Screen:. Risk Assessment: Do you want to hurt yourself or someone else? Patient reports no desire to harm self or others. Onset of symptoms is unknown. 19:58 Method Of Arrival: EMS: [facility] nc1 19:58 Acuity: ROLAND 3 me1 23:18 Initial Sepsis Screen: Does the patient meet any 2 criteria? No. Patient's initial lg3 sepsis screen is negative. Does the patient have a suspected source of infection? No. Patient's initial sepsis screen is negative. Triage Assessment: 20:00 General: Appears in no apparent distress. Behavior is calm, cooperative, appropriate me1 for age. Pain: Complains of pain in right leg and left leg Pain does not radiate. Pain currently is 10 out of 10 on a pain scale. Quality of pain is described as burning, throbbing, Pain began gradually, Is continuous. EENT: No signs and/or symptoms were reported regarding the EENT system. Neuro: Level of Consciousness is awake, alert, obeys commands, Oriented to person, place, time, situation, Appropriate for age. Cardiovascular: Patient's skin is warm and dry. Respiratory: Airway is patent Respiratory effort is even, unlabored, Respiratory pattern is regular, symmetrical. GI: No signs and/or symptoms were reported involving the gastrointestinal system. : No signs and/or symptoms were reported regarding the genitourinary system. Derm: Skin is healthy with good turgor, Skin is normal, Wound noted right foot and left foot Wound is blisters to bilateral feet. Some open and some intact. Musculoskeletal: Swelling present in right foot, left foot, right leg and left leg. Historical: - Allergies: 20:00 No Known Allergies; me1 - PMHx: 20:00 diabetes mellitus; Hypertensive disorder; Cerebrovascular accident; me1 - PSHx: 20:00 None; me1 - Immunization history:: Adult Immunizations unknown. - Infectious Disease History:: Denies. - Social history:: Smoking status: Patient denies any tobacco usage or history of. - Family history:: not pertinent. Screenin:14 [facility] ED Fall Risk Assessment (Adult) History of falling in the last 3 months, lg3 including since admission No falls in past 3 months (0 pts) Confusion or Disorientation No (0 pts) Intoxicated or Sedated No (0 pts) Impaired Gait Yes (1 pt) Mobility Assist Device Used No (0 pt) Altered Elimination No (0 pt) Score/Fall Risk Level 0 - 2 = Low Risk Oriented to surroundings, Maintained a safe environment, Educated pt \T\ family on fall prevention, incl call for assistance when getting out of bed, Assessed \T\ reinforced patient's understanding of fall precautions. Abuse screen: Denies threats or abuse. Denies injuries from another. Nutritional screening: No deficits noted. Tuberculosis screening: No symptoms or risk factors identified. Assessment: 20:14 General: Appears in no apparent distress. comfortable, Behavior is calm, cooperative. lg3 Pain: Complains of pain in left foot and right foot. Neuro: No deficits noted. Landin Agitation-Sedation Scale (RASS): 0 - Alert and Calm Level of Consciousness is awake, alert, obeys commands, Oriented to person, place, time, situation. Cardiovascular: No deficits noted. Denies chest pain, shortness of breath, Capillary refill < 3 seconds Clubbing of nail beds is absent JVD is absent Patient's skin is warm and dry. Respiratory: No deficits noted. Airway is patent Respiratory effort is even, unlabored, Respiratory pattern is regular, symmetrical. GI: No deficits noted. No signs and/or symptoms were reported involving the gastrointestinal system. : No signs and/or symptoms were reported regarding the genitourinary system. EENT: No deficits noted. No signs and/or symptoms were reported regarding the EENT system. Derm: Skin is intact, Skin is dry, Skin is normal, Skin temperature is warm Wound noted right foot and left foot. Musculoskeletal: Circulation, motion, and sensation intact. Range of motion: intact in all extremities, Swelling present in right leg and left leg. 22:21 Reassessment: Patient appears in no apparent distress at this time. No changes from lg3 previously documented assessment. Patient and/or family updated on plan of care and expected duration. Pain level reassessed. Patient is alert, oriented x 3, equal unlabored respirations, skin warm/dry/pink. 07/01 00:08 Reassessment: Patient appears in no apparent distress at this time. No changes from lg3 previously documented assessment. Patient and/or family updated on plan of care and expected duration. Pain level reassessed. Patient is alert, oriented x 3, equal unlabored respirations, skin warm/dry/pink. Vital Signs: 06/30 19:58 Weight 90.72 kg; Height 5 ft. 10 in. ; me1 20:22 BP 146 / 72; Pulse 66; Resp 18; Temp 98.3; Pulse Ox 99% ; Pain 10/10; me1 22:26 BP 147 / 69; Pulse 57; Resp 14; Pulse Ox 99% on R/A; km10 07/01 00:08 BP 137 / 60; Pulse 57; Resp 15 S; Pulse Ox 100% on R/A; lg3 06/30 19:58 Body Mass Index 28.70 (90.72 kg, 177.8 cm) me1 20:22 Pain Scale: Adult me1 Nilsa Coma Score: 06/30 22:28 Eye Response: spontaneous(4). Motor Response: obeys commands(6). Verbal Response: sp4 oriented(5). Total: 15. ED Course: 19:53 Patient arrived in ED. vc1 19:53 Yonis Araiza MD is Attending Physician. sp4 20:00 Triage completed. me1 20:00 Arm band placed on Patient placed in an exam room. me1 20:13 Casandra Caldera RN is Primary Nurse. lg3 20:14 Patient has correct armband on for positive identification. Placed in gown. Bed in low lg3 position. Call light in reach. Side rails up X 1. Client placed on continuous cardiac and pulse oximetry monitoring. NIBP monitoring applied. Door closed. Noise minimized. Warm blanket given. Pillow given. 20:39 EKG done, by ED staff, reviewed by Yonis Araiza MD. me1 20:59 Extrem Venous W Compression Leonidas US In Process Unspecified. EDMS 20:59 Maintain EMS IV. Dressing intact. Good blood return noted. Site clean \T\ dry. Gauge \T\ lg 3 site: 20 R Hand. Flushed with 10 mL NS. 21:06 Initial lab(s) drawn, by ED staff, sent to lab. Inserted saline lock: 22 gauge in right lg3 antecubital area, using aseptic technique. Blood collected. Flushed with 10 mL NS. 21:22 Wound care: located on left foot was cleaned with Hibiclens, dressed with Kerlix, lg3 silver sulfsdiazine, Patient tolerated well. 22:38 Kavon Villegas, RN is Hospitalizing Provider. sp4 23:18 No provider procedures requiring assistance completed. Patient admitted, IV remains in lg3 place. 07/01 00:10 Repositioned patient. Cleaned of incontinence. Linen changed. km10 Administered Medications: 06/30 19:59 CANCELLED (Inappropriate at this time): boostrix tdap0.5 ml IM once; as a single dose vc1 21:06 Drug: NS 0.9% IV 1000 ml IV at 1 bolus Per protocol; to be given as a bolus over 60 lg3 minutes Route: IV; Rate: 1 bolus; Site: right antecubital; 22:22 Follow up: Response: No adverse reaction; IV Status: Completed infusion; IV Intake: lg3 1000ml 21:06 Drug: vancoMYCIN IVPB 2 grams IVPB at calculated rate once Route: IVPB; Rate: lg3 calculated rate; Site: right hand; 23:19 Follow up: Response: No adverse reaction; IV Status: Completed infusion; IV Intake: lg3 500ml 21:06 Drug: Piperacillin-Tazobactam IVPB 3.375 grams IVPB once over 60 mins; (mix in NS 100 lg3 mL) Route: IVPB; Infused Over: 60 mins; Site: right antecubital; 22:21 Follow up: Response: No adverse reaction; IV Status: Completed infusion; IV Intake: lg3 100ml 21:24 Drug: Silver SulfADIAZINE Topical Cream 1 % 1 application Topical once Route: Topical; lg3 Site: affected area; 22:21 Follow up: Response: No adverse reaction lg3 Medication: 20:14 VIS not applicable for this client. lg3 Intake: 22:21 IV: 100ml; Total: 100ml. lg3 22:22 IV: 1000ml; Total: 1100ml. lg3 23:19 IV: 500ml; Total: 1600ml. lg3 Outcome: 22:39 Decision to Hospitalize by Provider. sp4 07/01 00:10 Admitted to Med/surg accompanied by tech, via stretcher, lg3 Condition: stable Instructed on the need for admit, 00:10 Patient left the ED. lg3 Signatures: Dispatcher [employer] Casandra Trevino RN RN lg3 Collette Valentine RN RN vc1 Yonis Araiza MD MD sp4 Shavon Walls RN RN me1 Esperanza Blanco RN RN km10 Corrections: (The following items were deleted from the chart) 06/30 20:00 19:55 Chief complaint: vc1 me1 20:23 20:00 Pain: Complains of pain in right leg and left leg Pain does not radiate. me1 me1
[2025-06-30] MEDS: VANCOMYCIN 1 GM in NA CHLORIDE 0.9% 250 ML IVPB SCH (23:00)
[2025-06-30] MEDS: VANCOMYCIN 1.5 GM in NA CHLORIDE 0.9% 500 ML IVPB SCH (23:00)
--- NOTE | 2025-06-30 23:10 | P.HP ---
Certification for Inpatient Patient admitted to: Inpatient With expected LOS: >2 Midnights Patient will require the following post-hospital care: None Practitioner: I am a practitioner with admitting privileges, knowledge of patient current condition, hospital course, and medical plan of care. Services: Services provided to patient in accordance with Admission requirements found in Title 42 Section 412.3 of the Code of Federal Regulations Patient History Date of Service: 06/30/25 Reason for admission: Cellulitis right lower extremity, Blister wounds left foot. History of Present Illness: Patient is a 70-year-old male who is homeless, past medical history of type 2 diabetes mellitus, hyperlipidemia, CKD, essential hypertension. Presents to the ER today complaining of severe pain bilateral lower extremities, with multiple blisters wound left foot. Patient states about 2 weeks ago, he developed blisters to his left foot, and edema and erythema to his right leg, states his condition progressively worsening, resulting to open wounds from the blisters on his left foot and edema, with increased edema and erythema to his right lower extremity associated with pain both lower extremities. Patient states since he is homeless he does not have any way of taking care of the wounds. Patient denies of any fever, chills, chest pain, shortness of breath, nausea or vomiting. On admission assessment, patient have open wound left foot, with cellulitis more profound in the right leg, 3-4+ pitting edema both feet. Patient endorses severe pain on both legs. Very concerning if patient has a new onset CHF as well. Patient current BNP is 381, associated with profound bilateral lower extremities edema. Course in ER: Ultrasound bilateral lower extremities. Impression: There is no deep vein or superficial vein thrombosis. Allergies No Known Allergies Allergy (Verified 02/20/24 02:33) Home Medications: Albuterol Neb [Proventil 0.083% Neb Soln] 2.5 mg NEB [id number] PRN amp 01/16/25 Amlodipine [Norvasc*] 10 mg PO DAILY #0 tab 01/16/25 Hydrocodone 5/APAP 325 [[place] 5/325*] 1 tab PO Q6H PRN #30 tab 01/16/25 Insulin Glargine,Hum.rec.anlog [Semglee] 24 unit SQ DAILY ml 01/16/25 Insulin Regular, Human [Novolin R] See Protocol SQ ACHS ml 01/16/25 Ipratropium Neb [Atrovent*] 0.5 mg NEB [id number] PRN amp 01/16/25 Ketoconazole [Nizoral Cream*] 1 appl TOP BID tube 01/16/25 Metformin HCl [Glucophage*] 500 mg PO BIDWM tab 01/16/25 Acetaminophen [Tylenol*] 650 mg PO Q4HP PRN tab 05/17/25 Amlodipine [Norvasc*] 10 mg PO DAILY tab 05/17/25 Doxycycline Monohydrate 100 mg PO BID 7 Days #14 tab 05/17/25 Loperamide [Imodium*] 2 mg PO Q4H PRN cap 05/17/25 - Past Medical/Surgical History Diabetic: Yes -: Type 2 diabetes -: Homeless -states he lives alone -: History of CVA -: Hypertension -: Hyperlipidemia -: CKD -: Patient states he does not have any past surgical history Psychosocial/ Personal History: Patient not interested in speaking with me regarding his living situation - Family History Family History: Reviewed- Non-Contributory - Family History Father -: Cancer - Social History Smoking Status: Former smoker Alcohol use: No CD- Drugs: No Caffeine use: Yes Place of Residence: Homeless Review of Systems 10-point ROS is otherwise unremarkable Integumentary: Other (Open wound left foot, cellulitis, and edema.) Physical Examination - Physical Exam General: Alert, Oriented x3, Cooperative HEENT: Atraumatic, Normocephalic, PERRLA, Mucous membr. moist/pink, Sclerae nonicteric Neck: Supple, 2+ carotid pulse no bruit, No LAD, Without JVD or thyroid abnormality Respiratory: Clear to auscultation bilaterally, Normal air movement Cardiovascular: Normal S1 S2, No gallops, No rubs, No murmurs, Edema (Possible new onset CHF.) Capillary refill: <2 Seconds Gastrointestinal: Normal bowel sounds, Soft and benign, Non-distended, W/out hepatomegaly, No ascites, No tenderness, No masses Musculoskeletal: No clubbing, No warmth, Erythema (Cellulitis lower extremity with wound.), Tenderness Integumentary: No cyanosis, Skin breakdown, Skin lesion, Tenderness/swelling (Cellulitis profound right lower extremity, and wound left foot, and edema.), Erythema Neurological: Normal speech, Normal strength at 5/5 x4 extr, Normal tone, Sensation intact, Normal reflexes 2+, Normal affect Lymphatics: No axilla or inguinal lymphadenopathy External genitalia: Non-tender - Studies Laboratory Data (last 24 hrs) 06/30/25 06/30/25 06/30/25 21:05 21:05 21:05 WBC 8.80 Hgb 11.9 L Hct 34.8 L Plt Count 241 PT 12.5 INR 1.11 Sodium 138 Potassium 4.4 BUN 33 H Creatinine 1.44 H Glucose 351 H Magnesium 2.1 Total Bilirubin 0.2 AST 12 L ALT 18 Alkaline Phosphatase 140 H Lipase 21 Male Exam - Male Exam Inguinal exam: No hernias Assessment and Plan - Plan Patient admitted to inpatient with diagnosis of cellulitis bilateral lower extremities but more profound right leg, open wound left foot, with possible new onset CHF, and PAUL. (1)Cellulitis lower extremities, and wound left foot/3+ pitting edema bilateral lower extremities. -Consult wound care team. -Ancef 2 g IV every 8 hours. -Vancomycin 1.5 g adjusted by pharmacy every 24 hours. -Order for nursing to clean patient wound left foot with NS, apply Silvadene cream, cover with 4 x 4 and wrap with Kerlix on admission and daily. -Wound culture. -Order for echocardiogram to evaluate patient current cardiac status. Rationale very concerning for possible new onset CHF. Patient states he does not have any history of CHF that is aware of at this time. Patient 3-4+ pitting edema bilateral lower extremities, BNP 381. -Morphine 4 mg IV as needed every 6 hours. Pain from bilateral lower extremities. -Albumin 25 g IV x 1. -Lasix 20 mg p.o. daily. (2)Chronic type 2 diabetes mellitus. -Moderate sliding scale coverage, ACHS. (3)Chronic hypertension. -Carvedilol 12.5 mg p.o. twice daily. (4)DVT prophylaxis. -Heparin 5000 units subcu every 8 hours. (5)Acute on chronic kidney injury. -IV 1/2 NS, slow infusion at 50 mL an hour x 1 L. (6)Explained the entire treatment plan to the patient, solicit questions answered and voiced understanding. Discharge Plan: Other (Patient will need residential assistance.) - Advance Directives Does patient have a Living Will: No Does patient have a Durable POA for Healthcare: No - Code Status/Comfort Care Code Status Assessed: Yes Code Status: Full Code Critical Care: No Time Spent Managing Pts Care (In Minutes): 55
[2025-06-30] MEDS ORDERED: HYDRALAZINE HCL 20 MG/ML VIAL IV PRN (23:25)
[2025-07-01] MEDS: CEFAZOLIN SODIUM 2 GM in NA CHLORIDE 0.9% 100 ML IVPB SCH (00:29)
[2025-07-01] MEDS: HEPARIN 5000 UNIT/ML 1 ML VIAL SQ SCH (00:32)
[2025-07-01] MEDS: MORPHINE 4 MG/ML SYR IV PRN (00:45)
[2025-07-01 02:10] VITALS: BMI 28.7
[2025-07-01] MEDS: ALBUMIN HUMAN 25% 100 ML IV ONE (03:56)
[2025-07-01 04:35] LABS: Absolute Lymphocytes (CBC) 0.9 K/uL (0.7-4.9); Hematocrit 32.7 % (39.6-49.0); Hemoglobin 11.3 g/dL (13.6-17.9); MCH 29.6 pg (27.0-35.0); MCHC 34.7 g/dL (32.0-36.0); MCV 85.3 fL (80-100); MPV 8.1 fL (7.6-11.3); Nucleated RBC Absolute Count 0.0 (0-0); Nucleated Red Blood Cells % 0.1 % (0-0); RBC Red Blood Cell Count 3.83 M/uL (4.33-5.43); White Blood Count 9.60 thou/uL (4.3-10.9)
[2025-07-01 05:03] LABS: Anion Gap 9.6 mEq/L (5.0-15.0); BUN Blood Urea Nitrogen 29.0 mg/dL (7-18); Glucose Level 248.0 mg/dL (74-106); Potassium 4.6 mEq/L (3.5-5.1)
[2025-07-01] MEDS: INSULIN REGULAR (HUMAN) 100 UNIT/ML SQ SCH (07:30)
[2025-07-01] MEDS: FUROSEMIDE 20 MG/ 2ML VIAL IV SCH (07:56)
[2025-07-01] MEDS: NA CHLORIDE 0.9% 1,000 ML IV SCH (07:56)
--- NOTE | 2025-07-01 15:02 | P.PN ---
Subjective Date of Service: 07/01/25 Chief Complaint: Cellulitis right lower extremity, Blister wounds left foot. Patient denies any new complaints. Bilateral lower extremity redness is improving. No recorded fever. Patient is eating well. Physical Examination - Vital Signs Temperature: 97.9 F Blood Pressure: 175/72 Pulse: 54 Respirations: 18 Pulse Ox (%): 99 - Studies Laboratory Data (last 24 hrs) 06/30/25 06/30/25 06/30/25 21:05 21:05 21:05 WBC 8.80 Hgb 11.9 L Hct 34.8 L Plt Count 241 PT 12.5 INR 1.11 Sodium 138 Potassium 4.4 BUN 33 H Creatinine 1.44 H Glucose 351 H Magnesium 2.1 Total Bilirubin 0.2 AST 12 L ALT 18 Alkaline Phosphatase 140 H Lipase 21 Assessment And Plan - Plan Physical examination General: Alert and oriented x3, NAD, HEENT: Anicteric sclera Neck: Supple, no elevated JVD Heart: Heart sounds 1 and 2 normal, regular rhythm, normal rate, bilateral lower extremity 1+ pitting edema Lungs: Clear to auscultation bilaterally, adequate breath sounds bilaterally, no rhonchi or crackles. Abdomen: Soft, nondistended, nontender, normal bowel sounds. Skin: Ruptured blisters on the dorsum of the left foot, erythema distal half of bilateral lower extremities. Neuro: No focal motor deficit. Normal speech. Psychiatry: Normal mood, no agitation. Diagnosis Cellulitis of bilateral lower extremities Acute on chronic diastolic heart failure DM type II Essential hypertension Chronic kidney disease stage III Plan: Cellulitis of bilateral lower extremities Associated blisters on left foot. Continue IV antibiotics Blood cultures are pending. Continue wound care. Acute on chronic diastolic heart failure Venous stasis dermatitis Associated venous stasis dermatitis Lower extremity edema is improving IV Lasix Status post albumin infusion in the ER Monitor intake and output Monitor renal function with diuresis. DM type II Insulin sliding scale for glucose management Essential hypertension Continue home dose amlodipine. Coreg added. Chronic kidney disease stage III Stable Monitor renal function with diuresis. DVT prophylaxis: Heparin SQ Advanced directive: full code
[2025-07-01] MEDS ORDERED: IPRATROPIUM BROM 0.5MG/2.5ML NEB PRN (15:10)
[2025-07-01] MEDS ORDERED: ALBUTEROL 2.5 MG/3 ML NEB SOL NEB PRN (15:10)
[2025-07-01] MEDS ORDERED: HYDROCODONE/APAP 5/325 MG TAB PO PRN (15:10)
[2025-07-01] MEDS: INSULIN GLARGINE 100 UNIT/ML SQ SCH (16:44)
[2025-07-01] MEDS: AMLODIPINE 10 MG TAB PO SCH (16:44)
[2025-07-01] MEDS: CEFEPIME 1 GM in NA CHLORIDE 0.9% 100 ML IV SCH (20:42)
[2025-07-01] MEDS: VANCOMYCIN 1.5 GM in NA CHLORIDE 0.9% 500 ML IVPB SCH (21:34)
[2025-07-02 06:30] LABS: Anion Gap 8.4 mEq/L (5.0-15.0); BUN Blood Urea Nitrogen 23.0 mg/dL (7-18); Glucose Level 169.0 mg/dL (74-106); Potassium 4.4 mEq/L (3.5-5.1)
[2025-07-02 06:33] LABS: Absolute Lymphocytes (CBC) 0.9 K/uL (0.7-4.9); Hematocrit 32.9 % (39.6-49.0); Hemoglobin 11.1 g/dL (13.6-17.9); MCH 28.9 pg (27.0-35.0); MCHC 33.6 g/dL (32.0-36.0); MCV 86.0 fL (80-100); MPV 8.4 fL (7.6-11.3); Nucleated RBC Absolute Count 0.0 (0-0); Nucleated Red Blood Cells % 0.1 % (0-0); RBC Red Blood Cell Count 3.82 M/uL (4.33-5.43); White Blood Count 8.00 thou/uL (4.3-10.9)
[2025-07-02] MEDS: SILVER SULFADIAZINE 1% 25 GM TOP SCH (09:00)
--- NOTE | 2025-07-02 15:22 | P.PN ---
Subjective Date of Service: 07/02/25 Chief Complaint: Cellulitis right lower extremity, Blister wounds left foot. Patient denies any new complaints. Bilateral lower extremity redness and swelling is improving No recorded fever. Patient ambulating only short distances with his walker. Physical Examination - Vital Signs Temperature: 97.9 F Blood Pressure: 175/72 Pulse: 54 Respirations: 18 Pulse Ox (%): 99 Assessment And Plan - Plan Physical examination General: Alert and oriented x3, NAD, Neck: No elevated JVD Heart: Heart sounds 1 and 2 normal, regular rhythm, normal rate, bilateral lower extremity 1+ pitting edema Lungs: Clear to auscultation bilaterally, adequate breath sounds bilaterally, no rhonchi or crackles. Abdomen: Soft, nondistended, nontender, normal bowel sounds. Skin: Ruptured blisters on the dorsum of the left foot, erythema distal half of bilateral lower extremities improved. Neuro: No focal motor deficit. Normal speech. Psychiatry: Normal mood, no agitation. Diagnosis Cellulitis of bilateral lower extremities Acute on chronic diastolic heart failure DM type II Essential hypertension Chronic kidney disease stage III Plan: Cellulitis of bilateral lower extremities Associated blisters on left foot. Continue IV antibiotics Blood cultures are pending. Continue wound care. Acute on chronic diastolic heart failure Venous stasis dermatitis Associated venous stasis dermatitis Lower extremity edema is improving IV Lasix Status post albumin infusion in the ER Monitor intake and output Monitor renal function with diuresis. DM type II Insulin sliding scale for glucose management Essential hypertension Continue home dose amlodipine. Coreg added. Chronic kidney disease stage III Stable Monitor renal function with diuresis. 07/02 Blood cultures have yielded no growth Will continue IV antibiotics Increase IV Lasix dose Monitor intake and output Continue insulin sliding scale for glucose management. Renal function is stable with diuresis. Continue to monitor renal function. Continue wound care. DVT prophylaxis: Heparin SQ Advanced directive: full code
[2025-07-03 06:04] LABS: Absolute Lymphocytes (CBC) 1.2 K/uL (0.7-4.9); Hematocrit 31.4 % (39.6-49.0); Hemoglobin 11.0 g/dL (13.6-17.9); MCH 29.6 pg (27.0-35.0); MCHC 35.0 g/dL (32.0-36.0); MCV 84.7 fL (80-100); MPV 8.3 fL (7.6-11.3); Nucleated RBC Absolute Count 0.0 (0-0); Nucleated Red Blood Cells % 0.0 % (0-0); RBC Red Blood Cell Count 3.71 M/uL (4.33-5.43); White Blood Count 7.10 thou/uL (4.3-10.9)
[2025-07-03 06:19] LABS: Anion Gap 10.7 mEq/L (5.0-15.0); BUN Blood Urea Nitrogen 24.0 mg/dL (7-18); Glucose Level 239.0 mg/dL (74-106); Potassium 3.7 mEq/L (3.5-5.1)
[2025-07-03 10:51] VITALS: O2SAT 96
--- NOTE | 2025-07-03 15:39 | P.PN ---
Subjective Date of Service: 07/03/25 Chief Complaint: Cellulitis right lower extremity, Blister wounds left foot. Patient denies any new complaints. Bilateral lower extremity redness and swelling continues to improve. No recorded fever. Physical Examination - Vital Signs Temperature: 97.8 F Blood Pressure: 132/66 Pulse: 50 Respirations: 16 Pulse Ox (%): 100 Assessment And Plan - Plan Physical examination General: Alert and oriented x3, NAD, Neck: No elevated JVD Heart: Heart sounds 1 and 2 normal, regular rhythm, normal rate, bilateral lower extremity 1+ pitting edema Lungs: Clear to auscultation bilaterally, adequate breath sounds bilaterally, no rhonchi or crackles. Abdomen: Soft, nondistended, nontender, normal bowel sounds. Skin: Ruptured blisters on the dorsum of the left foot, erythema distal half of bilateral lower extremities improved. Neuro: No focal motor deficit. Normal speech. Psychiatry: Normal mood, no agitation. Diagnosis Cellulitis of bilateral lower extremities Acute on chronic diastolic heart failure DM type II Essential hypertension Chronic kidney disease stage III Plan: Cellulitis of bilateral lower extremities Associated blisters on left foot. Continue IV antibiotics Blood cultures are pending. Continue wound care. Acute on chronic diastolic heart failure Venous stasis dermatitis Associated venous stasis dermatitis Lower extremity edema is improving IV Lasix Status post albumin infusion in the ER Monitor intake and output Monitor renal function with diuresis. DM type II Insulin sliding scale for glucose management Essential hypertension Continue home dose amlodipine. Coreg added. Chronic kidney disease stage III Stable Monitor renal function with diuresis. 07/02 Blood cultures have yielded no growth Will continue IV antibiotics Increase IV Lasix dose Monitor intake and output Continue insulin sliding scale for glucose management. Renal function is stable with diuresis. Continue to monitor renal function. Continue wound care. 07/03 Blood cultures: No growth. Continue antibiotics for cellulitis. Patient with good urine output with current Lasix dose. Continue diuresis with IV Lasix Renal function has been stable with diuresis. Insulin sliding scale for glucose management. Patient evaluated by PT and recommended to continue therapy Social service consulted to assist with disposition. DVT prophylaxis: Heparin SQ Advanced directive: full code
[2025-07-04 05:27] LABS: Absolute Lymphocytes (CBC) 1.3 K/uL (0.7-4.9); Hematocrit 32.6 % (39.6-49.0); Hemoglobin 11.3 g/dL (13.6-17.9); MCH 29.3 pg (27.0-35.0); MCHC 34.7 g/dL (32.0-36.0); MCV 84.4 fL (80-100); MPV 7.9 fL (7.6-11.3); Nucleated RBC Absolute Count 0.0 (0-0); Nucleated Red Blood Cells % 0.0 % (0-0); RBC Red Blood Cell Count 3.86 M/uL (4.33-5.43); White Blood Count 7.20 thou/uL (4.3-10.9)
[2025-07-04 06:05] LABS: Anion Gap 7.1 mEq/L (5.0-15.0); BUN Blood Urea Nitrogen 24.0 mg/dL (7-18); Glucose Level 220.0 mg/dL (74-106); Potassium 4.1 mEq/L (3.5-5.1)
--- NOTE | 2025-07-04 08:17 | P.PN ---
Date of Service: 07/04/25 Subjective: feeling better today no events overnight afebrile hasn't taken diuretics for over a year Physical Exam: GEN: Alert, oriented, NAD CV: Regular rate and rhythm, 1+ bilateral lower extremity edema up to mid-calf Pulm: Nonlabored respirations on room air, clear bilaterally Integumentary: 6cm diameter - circular superficial wound on left dorsal foot, no purulent drainage, mild surrounding erythema. Neuro: Normal speech, normal affect Problem List: Bilateral lower extremity cellulitis Acute on chronic diastolic CHF Venous stasis dermatitis IDDM2 Hx of CKD3 Hypertension Bilateral lower extremity cellulitis Acute on chronic diastolic CHF Venous stasis dermatitis on admission, presents with worsening bilateral lower extremity pain, multiple open blister wounds to left foot associated with swelling, redness of right lower extremity. Venous ultrasound was negative for DVT in bilateral lower extremities Continue local wound care with silvadene cream Continue IV vanc/Cefepime for now - will de-escalate in next 24hrs Continue IV lasix 20 mg daily for now Blood cx: NGTD pain control, Duonebs IDDM2 accu-cheks, SSI confirm home meds Hx of CKD3 Daily labs. Stable. Hypertension confirm home meds, restart as appropriate resume home amlodipine, coreg VTE: Heparin sq Code: Full Dispo: Home, ~1-2 days Time Spent Managing Pts Care (In Minutes): 55
--- NOTE | 2025-07-04 19:14 | CON ---
History Of Present Illness: This is a 70-year-old male with significant past medical history of diab etes mellitus, hyperlipidemia, chronic kidney disease, homeless, essential hypertension coming in wit h lower extremity severe pain and multiple blister noted on the left foot which has been opened. The patient denies any fever, chills, chest pain, shortness of breath, nausea, vomiting. Edema has subs ided since patient has been admitted. Past Medical History: Diabetes mellitus, homeless state, history of stroke, hypertension, hyperlipid emia, CKD, tobacco positive. No alcohol use. Family History: Noncontributory. Medications: Cefepime, vancomycin. See MARs for other medications. Allergies: NO KNOWN DRUG ALLERGIES. Review of Systems: A 10-point review was performed. Physical Examination: General: This is a 70-year-old male, lying in bed, not in any acute cardiopulmonary distress. Vital Signs: Temperature 97, pulse 61, respirations 17, blood pressure 115/64. HEENT: Unremarkable. Neck: Supple. Lungs: Basal crackles. Heart: S1, S2. Regular. Abdomen: Soft, nontender. Bowel sounds present. Extremity: Trace edema, multiple blistering lesion noted which have opened up and has healthy granul ation tissue underneath. Laboratory Data: Shows WBC 7.2, hemoglobin 11.3, platelets are 224. BUN of 24, creatinine 1.1. Blo od cultures no growth in 24 hours. Ultrasound of the lower extremity shows no deep venous thrombosis . Assessment And Plan: A 70-year-old male with significant history of diabetes mellitus, admitted for cellulitis of lower extremity with 3+ pitting edema, which has improved significantly, currently bein g treated with vancomycin and cefepime. If cultures are negative for methicillin-resistant Staphyloc occus aureus, we will recommend to switch to cefazolin for 2 weeks. Can be switched to oral on disch arge. Keep legs elevated when possible. Anemia of chronic disease. Continue to monitor signs of infection with WBC and fever trends. We will follow the patient as need ed. Consider applying Xeroform to the open blistering lesion. We will follow the patient as needed. Thank you for consult. GITA/SHARON Voice ID: [id number] Report ID: [id number]
[2025-07-05 06:37] LABS: Anion Gap 8.9 mEq/L (5.0-15.0); BUN Blood Urea Nitrogen 32.0 mg/dL (7-18); Glucose Level 247.0 mg/dL (74-106); Magnesium 2.1 mg/dL (1.6-2.4); Potassium 4.9 mEq/L (3.5-5.1)
--- NOTE | 2025-07-05 11:21 | P.PN ---
Date of Service: 07/05/25 Subjective: no events overnight denies any new or worsening problems afebrile Physical Exam: GEN: Alert, oriented, NAD CV: Regular rate and rhythm, 1+ bilateral lower extremity edema up to mid-calf Pulm: Nonlabored respirations on room air, clear bilaterally Integumentary: 6cm diameter - circular superficial wound on left dorsal foot, no purulent drainage, mild surrounding erythema. Neuro: Normal speech, normal affect Problem List: Bilateral lower extremity cellulitis Acute on chronic diastolic CHF Venous stasis dermatitis IDDM2 Hx of CKD3 Hypertension Hx of MRSA (2023) Bilateral lower extremity cellulitis Acute on chronic diastolic CHF Venous stasis dermatitis Hx of MRSA (2023) on admission, presents with worsening bilateral lower extremity pain, multiple open blister wounds to left foot associated with swelling, redness of right lower extremity. Venous ultrasound was negative for DVT in bilateral lower extremities Continue local wound care with silvadene cream Continue IV vanc/Cefepime for now consider deescalating to oral Levaquin x10 days Continue IV lasix 20 mg daily for now Blood cx: NGTD pain control, Duonebs ID consulted IDDM2 accu-cheks, SSI confirm home meds Hx of CKD3 Daily labs. Stable. Hypertension Continue home amlodipine, coreg VTE: Heparin sq Code: Full Dispo: Home, ~1-2 days Time Spent Managing Pts Care (In Minutes): 55
--- NOTE | 2025-07-05 11:43 | P.PN ---
Date of Service: 07/05/25 subjective: no concern or complaints. tolerating abx well. pt states he wants to go home. states "he has to go to the bank" VS stable objective: Temp Pulse Resp BP Pulse Ox 97.6 F 54 18 129/71 98 07/05/25 08:00 07/05/25 08:00 07/05/25 08:00 07/05/25 08:00 07/05/25 08:00 Physical Exam: GEN: Alert, oriented x 3 , NAD CV: Regular rate and rhythm, 1+ bilateral lower extremity edema up to mid-calf Pulm: Nonlabored respirations on room air, clear bilaterally Integumentary:3 inches circular superficial wound on left dorsal foot with serosanguinous drainage. erythema surrounding wound site erythema. there is also a small blister above the wound Neuro: Normal speech, normal affect abdomen: BS, NT, ND Assessment and planning Bilateral lower extremity cellulitis Acute on chronic diastolic CHF Venous stasis dermatitis Hx of MRSA DM3 anemia of chronic disease pt on vancomycin from 07/01-07/04. and cefepime 07/01 to current wound culture not done would like to descalate abx to levaquin x 10 days ekg pending will continue to monitor for infection with wbc and fever trend case discussed and in agreement with Dr Lino
[2025-07-05 17:58] VITALS: BP 144/72; TEMP 97.8
--- NOTE | 2025-07-06 06:45 | P.DS ---
Admission Date: 06/30/25 Discharge Date: 07/05/25 Disposition: ROUTINE DISCHARGE Discharge Condition: GOOD Reason for Admission: Cellulitis right lower extremity, Blister wounds left foot. Consultations: ID - Dr. Lino Brief History of Present Illness: 70yo M, PMH: type 2 diabetes mellitus, hyperlipidemia, CKD, essential hypertension. Patient presents to the ER today complaining of severe pain bilateral lower extremities, with multiple blisters wound left foot. Patient states about 2 weeks ago, he developed blisters to his left foot, and edema and erythema to his right leg, states his condition progressively worsening, resulting to open wounds from the blisters on his left foot and edema, with increased edema and erythema to his right lower extremity associated with pain both lower extremitie s. Patient states since he is homeless he does not have any way of taking care of the wounds. Patient denies of any fever, chills, chest pain, shortness of breath, nausea or vomiting. On admission assessment, patient have open wound left foot, with cellulitis more profound in the right leg, 3-4+ pitting edema both feet. Patient endorses severe pain on both legs. Very concerning if patient has a new onset CHF as well. Patient current BNP is 381, associated with profound bilateral lower extremities edema. Course in ER: Ultrasound bilateral lower extremities. Impression: There is no deep vein or superficial vein thrombosis. Hospital Course: Problem List: Bilateral lower extremity cellulitis Acute on chronic diastolic CHF Venous stasis dermatitis IDDM2 Hx of CKD3 Hypertension Hx of MRSA (2023) Physician discharge instructions: Patient presented with worsening bilateral lower extremity swelling which lead to pain and erythema. He reports worsening edema in legs which lead to blistering/wounds, and concern for cellulitis. There was no purulent drainage. Mild erythema around wound could also be secondary to edema. but given his risk, he was covered for possible infection as well. Venous ultrasound on admission was negative for DVT in either lower extremities. Patient was started on IV vanc/cefepime in addition to IV lasix and had improvement of his symptoms. Blood cultures have been without growth. Infectious disease was consulted. IV vac/cefepime was deescalated to oral levaquin and patient continued to improve. ID was consulted and recommended patient complete 10 days of oral levaquin to treat possible cellulitis. Patient was feeling better, afebrile without leukocytosis, requesting to be discharged. He reported having someone who can help him with wound care and a place to stay for short term. Follow up with cardiology in near future for further management. His lower extremity edema improved with IV lasix. Prescribed 20mg PO lasix daily on discharge. Watch for signs of dehydration. Follow up with PCP in ~1 week. Medications: Levaquin 500mg daily x10 days lasix 20mg daily for leg swelling / CHF Follow up: PCP 3-5 days Cardiology in 2-4 weeks Please call to schedule / confirm appointments Physical Exam: GEN: Alert, oriented, NAD CV: Regular rate and rhythm, no edema Pulm: Nonlabored respirations on room air, clear bilaterally Integumentary: Superficial wound on left dorsal foot, no purulent drainage. Neuro: Normal speech, normal affect Vital Signs/Physical Exam: Temp Pulse Resp BP Pulse Ox 97.8 F 54 18 144/72 H 98 07/05/25 12:00 07/05/25 12:00 07/05/25 12:00 07/05/25 12:00 07/05/25 12:00 Laboratory Data at Discharge: WBC 7.20 thou/uL (4.3-10.9) 07/04/25 05:16 Hgb 11.3 g/dL (13.6-17.9) L 07/04/25 05:16 Hct 32.6 % (39.6-49.0) L 07/04/25 05:16 Plt Count 224 thou/uL (152-406) 07/04/25 05:16 PT 12.5 SECONDS (10-13.0) 06/30/25 21:05 INR 1.11 06/30/25 21:05 Sodium 136 mEq/L (136-145) 07/05/25 05:26 Potassium 4.9 mEq/L (3.5-5.1) D 07/05/25 05:26 BUN 32 mg/dL (7-18) H 07/05/25 05:26 Creatinine 1.47 mg/dL (0.70-1.30) H 07/05/25 05:26 Glucose 247 mg/dL (74-106) H 07/05/25 05:26 Magnesium 2.1 mg/dL (1.6-2.4) 07/05/25 05:26 Total Bilirubin 0.2 mg/dL (0.2-1.0) 06/30/25 21:05 AST 12 U/L (15-37) L 06/30/25 21:05 ALT 18 U/L (16-61) 06/30/25 21:05 Alkaline Phosphatase 140 U/L (45-117) H 06/30/25 21:05 Lipase 21 U/L (13-75) 06/30/25 21:05 Home Medications: Albuterol Neb [Proventil 0.083% Neb Soln] 2.5 mg NEB [id number] PRN amp 01/16/25 Amlodipine [Norvasc*] 10 mg PO DAILY #0 tab 01/16/25 Hydrocodone 5/APAP 325 [[place] 5/325*] 1 tab PO Q6H PRN #30 tab 01/16/25 Insulin Glargine,Hum.rec.anlog [Semglee] 24 unit SQ DAILY ml 01/16/25 Insulin Regular, Human [Novolin R] See Protocol SQ ACHS ml 01/16/25 Ipratropium Neb [Atrovent*] 0.5 mg NEB [id number] PRN amp 01/16/25 Ketoconazole [Nizoral Cream*] 1 appl TOP BID tube 01/16/25 Metformin HCl [Glucophage*] 500 mg PO BIDWM tab 01/16/25 Acetaminophen [Tylenol*] 650 mg PO Q4HP PRN tab 05/17/25 Loperamide [Imodium*] 2 mg PO Q4H PRN cap 05/17/25 Furosemide 20 mg PO DAILY 30 Days #30 tab 07/05/25 levoFLOXacin [Levaquin] 500 mg PO DAILY 10 Days #10 tab 07/05/25 New Medications: Furosemide 20 mg PO DAILY 30 Days #30 tab levoFLOXacin [Levaquin] 500 mg PO DAILY 10 Days #10 tab Physician Discharge Instructions: Physician discharge instructions: Patient presented with worsening bilateral lower extremity swelling which lead to pain and erythema. He reports worsening edema in legs which lead to blisterin g/wounds, and concern for cellulitis. There was no purulent drainage. Mild erythema around wound could also be secondary to edema. but given his risk, he was covered for possible infection as well. Venous ultrasound on admission was negative for DVT in either lower extremities. Patient was started on IV vanc/cefepime in addition to IV lasix and had improvement of his symptoms. Blood cultures have been without growth. Infectious disease was consulted. IV vac/cefepime was deescalated to oral levaquin and patient continued to improve. ID was consulted and recommended patient complete 10 days of oral levaquin to treat possible cellulitis. Patient was feeling better, afebrile without leukocytosis, requesting to be discharged. He reported having someone who can help him with wound care and a place to stay for short term. Follow up with cardiology in near future for further management. His lower extremity edema improved with IV lasix. Prescribed 20mg PO lasix daily on discharge. Watch for signs of dehydration. Follow up with PCP in ~1 week. Medications: Levaquin 500mg daily x10 days lasix 20mg daily for leg swelling / CHF Follow up: PCP 3-5 days Cardiology in 2-4 weeks Please call to schedule / confirm appointments Diet: ADA Followup: Michelle Hazel DO, DO [Primary Care Provider] - Time spent managing pt's care (in minutes): 45
== END 2025-07-05 18:22 | disposition home or self-care (01) | DRG 602 ==
LOC: ER 19:51 → 4TH 22:54
PROVIDERS: ADMIT Internal Medicine; ATTEND Hospitalist
DX: L03.115 Cellulitis of right lower limb (principal); I50.33 Acute on chronic diastolic (congestive) heart failure; Z59.00 Homelessness unspecified; I13.0 Hypertensive heart and chronic kidney disease with heart failure and stage 1 through stage 4 chronic kidney disease, or unspecified chronic kidney disease; Z79.84 Long term (current) use of oral hypoglycemic drugs; Z79.891 Long term (current) use of opiate analgesic; Z79.51 Long term (current) use of inhaled steroids; Z79.4 Long term (current) use of insulin; E11.9 Type 2 diabetes mellitus without complications; Z86.73 Personal history of transient ischemic attack (TIA), and cerebral infarction without residual deficits; L03.116 Cellulitis of left lower limb; E11.22 Type 2 diabetes mellitus with diabetic chronic kidney disease; E78.5 Hyperlipidemia, unspecified; I87.2 Venous insufficiency (chronic) (peripheral); N18.30 Chronic kidney disease, stage 3 unspecified; Z86.14 Personal history of Methicillin resistant Staphylococcus aureus infection
CPT/HCPCS: 36415; 80048; 80076; 80202; 80307; 81001; 82077; 82550; 82947; 83690; 83735; 83880; 84484; 85025; 85610; 87040; 93005; 93970; 97110; 97116; 97161; 97530; 99285; J0692; J1644; J1815; J1938; J2543; J3370; J7030; J7040; J7613; P9047

== ENCOUNTER 2025-07-06 14:18 | Emergency (ER) | payer OTHER ==
--- OUTSIDE RECORDS SUMMARY | 2025-07-06 14:39 | XMS REPORT | Continuity of Care Document ---
Author Name Unknown Address [address] [facility] [address] [place] [address] [facility] Address [address] [facility]. 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 Role Phone Pcp, Pcp Primary Care Physician Unavailab jessenia Fallon RN, Martell Harrell Attending Clinician Unavail able BRUCE RICKS Attending Clinician Unavailable JACKIE DIAZ Attending Clinician Unavailab JACKIE Mirza Attending Clinician Unavailab RAJ Jordan Attending Clinician Unavailable Doctor Unassigned, [place] Attending Clinician U navailable MO POLLARD Attending Clinician Unavailab JARRELL Casiano Attending Clinician Unavailable Oscar OSPINA, Mady Ang Attending Clinician [phone] Divya OSPINA, Malini Villegas Attending Clinician Katharina Gallo MD Attending Clinician [phone] Jarrell Washington DO Attending Clinician [phone] Ro [place] Attending Clinician Unavailab BRODERICK Aranda Attending Clinician Unavailable Graeem OSPINA, Broderick Carpenter Attending Clinician +[phone] SHELBY HELTON Attending Clinician Unavailable SHELBY HELTON Attending Clinician Unavailable DONI MARK Attending Clinician Unavailable Rupa Conroy Attending Clinician +[phone] BRADEN PALACIO Attending Clinician Unavailable Juno Snyder Attending Clinician [phone] Raj Garcia DO Attending Clinician [phone] Braden Palacio MD Attending Clinician [phone] Benja Pang MD Attending Clinician +[phone] Azar Solomon CRNA Attending Clinician + [phone] MULUGETA PALMA Attending Clinician Unavailable MULUGETA PALMA Attending Clinician Unavailable Juno HWANG Attending Clinician Unavailable Juno HWANG Attending Clinician Unavailable PARVEZ CALDERA Attending Clinician Unavailable PRAVEZ CALDERA Attending Clinician Unavailable Parvez Zaldivar Attending Clinician [phone] DEJON GREEN Attending Clinician Unavailab Dejon Rizzo DO Attending Clinician +[phone] Sonia Caruso Attending Clinician +[phone] Mulugeta Palma MD Attending Clinician [phone] ANA HAGAN Attending Clinician Unavailable ANA HAGAN Attending Clinician Unavailable Ana Hagan MD Attending Clinician + [phone] MISSAEL TEE Attending Clinician Unavailable Missael Tee PA-C Attending Clinician + [phone] LEVI FRANK Attending Clinician UnavailLevi Flores Attending Clinician [phone] Nargis Moore RN Attending Clinician UnavailSonia Diaz Attending Clinician [phone] MATEUSZ GAYLE Attending Clinician Unavailable MATEUSZ GAYLE Attending Clinician Unavailable MICAH MILLARD Attending Clinician Unavailable Micah Millard MD Attending Clinician +[phone] RIANA PAUL Attending Clinician Unavailable Riana Paul DO Attending Clinician + [phone] JOSE ROBERTO IRELAND Attending Clinician Unavailable Jose Roberto Ireland MD Attending Clinician +[phone] SONIA MULLER Attending Clinician Unavailable Dejon Green DO Attending Clinician [phone] SILAS GREENE Attending Clinician Unavailable SILAS GREENE Attending Clinician Unavailable Lorene Stein Attending Clinician Tl Aranda MD Attending Clinician [phone] TL ARANDA Attending Clinician Unavailable Georgina Garcia RN Attending Clinician Unava ilnikky Doctor Unassigned, [place] Attending Clinician U navailable Provider, [facility] Attending Clinician Un available Green WELD INSPECTOR, Lesli Attending Clinician [phone] Pob, 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 Attending Clinician UnavailNIMISHA Haywood Attending Clinician Unavail FRANK Chow Attending Clinician Unavailable Darrell Maxwell MD Attending Clinician [phone] Shanice MOHR, Yossi Attending Clinician [phone] YOSSI PRASAD Attending Clinician Unavailable Idalia RD, Debra Attending Clinician [phone] DEBRA FRIEDMAN Attending Clinician Unavailable DARRELL BECKFORD Attending Clinician UnaDarrell Beltran MD Attending Clinician + [phone] Chelle Fernandez MD Attending Clinician +[phone] CHELLE FERNANDEZ Attending Clinician Unavailable Natividad Aparicio MD Attending Clinician UnaGlo Emanuel MD Attending Clinician +[phone] GLO FINN Attending Clinician Unavailable Kendall Campa MD Attending Clinician [phone] JOCELYN GREER Attending Clinician UnavailDARRELL Khalil III Attending Clinician UnavailJUHI Castro Attending Clinician UnavailNATIVIDAD Brantley Attending Clinician Unavailab HERNANDEZ Espino Admitting Clinician UnaRAJ Nur Admitting Clinician Unavailable WOOD CORNEJO Admitting Clinician Unavailable MALINI STOKES Admitting Clinician Ileana thang Stokes MD, Malini Villegas Admitting Clinician SHELBY HELTON Admitting Clinician Unavailable Raj Garcia DO Admitting Clinician [phone] Juno HWANG Admitting Clinician Unavailable PARVEZ CALDERA [...] on Date Source [employer] MEDICARE ADV PPO [id number] 2025 00:00:00 [employer] MEDICARE ADVANTAGE Medicare [id number] 2025 00:00:00 CIGNA MEDICARE ADVANTAGE HMO [id number] 2024 00:00:00 [facility] Intact Medical (MEDICARE REPLACEMENT HMO) [id number] 2022 00:00:00 COMMERCIAL NON-CONTRACT GENERIC [id number] 2018 00:00:00 2019 00:00:00 Problems Condition Name Condition Details Condition Category Status Onset Date Resolution Date Last Treatment Date Treating Clinician Comments Source Weakness Weakness Disease Active 05-28 00:00: 00 [facility] Altered mental status, unspecifie d altered mental status type Altered mental status, unspecifie d altered mental status type Disease Active 6 00:00: 00 [facility] COVID-19 virus infection COVID-19 virus infection [...] ia Disease Active 2023-11 0-01 00:00: 00 [facility] Bacteremia Bacteremia Disease Active 8-01 00:00: 00 [facility] Balance problem Balance problem Disease Active 7-24 00:00: 00 [facility] Omental infarction Omental infarction Disease Active 3-09 00:00: 00 [facility] Psoriasifo rm dermatitis Psoriasifo rm dermatitis Disease Active 8-18 00:00: 00 [facility] Need for 23-polyval ent pneumococc al polysaccha ride vaccine Need for 23-polyval ent pneumococc al polysaccha ride vaccine Disease Active 3-28 00:00: 00 [facility] Cellulitis of foot, left Cellulitis of foot, left Disease Active 5-21 00:00: 00 [facility] Edema of both legs Edema of both legs Disease Active 4-07 00:00: 00 [facility] Erectile dysfunctio n, unspecifie d erectile dysfunctio n type Erectile dysfunctio n, unspecifie d erectile dysfunctio n type Disease Active 4-07 00:00: 00 [facility] Essential hypertensi on Essential hypertensi on Disease Active 4-07 00:00: 00 [facility] Edema of both legs Edema of both legs Disease Active 4-07 00:00: 00 [facility] Erectile dysfunctio n, unspecifie d erectile dysfunctio n type Erectile dysfunctio n, unspecifie d erectile dysfunctio n type Disease Active 4-07 00:00: 00 [facility] Acute midline low back pain without sciatica Acute midline low back pain without sciatica Disease Active 2-26 00:00: 00 [facility] Medicare annual wellness visit, subsequent Medicare annual wellness visit, subsequent Disease Active 12-01 00:00: 00 Overview: Formattin g of this note might be different from the original. Added automatic ally from request for surgery [id number] [facility] Need for hepatitis C screening test Need for hepatitis C screening test Disease Active 2018-11 00:00: 00 [facility] Homeless Homeless Disease Active 2018-11 00:00: 00 [facility] Lesion of matthew Lesion of matthew Disease Active 2018-11 00:00: 00 [facility] Dyslipidem ia Dyslipidem ia Disease Active 2018-11 00:00: 00 [facility] Encounter for screening colonoscop y for non-high-r isk patient Encounter for screening colonoscop y for non-high-r isk patient Disease Active 2018-11 00:00: 00 [facility] 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 Disease Active 2018-11 00:00: 00 [facility] 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) Disease Active 2018-11 00:00: 00 [facility] 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) Disease Active 2018-11 00:00: 00 [facility] Erectile dysfunctio n due to type 2 diabetes mellitus Erectile dysfunctio n due to type 2 diabetes mellitus Disease Active 2018-11 00:00: 00 [facility] Obesity (BMI 30-39.9) Obesity (BMI 30-39.9) Disease Active 03-17 00:00: 00 [facility] Upper respirator y tract infection, unspecifie d type Upper respirator y tract infection, unspecifie d type Disease Resolve d 2018-11 00:00: 00 2021-07-15 00:00:00 2021-07-15 15:36:45 [facility] Allergies, Adverse Reactions, Alerts Allergy Name Allergy Type Status Severity Reaction(s) Onset Date Inactive Date Treating Clinician Comments Source NO KNOWN ALLERGIE S Drug Class Active [facility] Family History Family Member Diagnosis Comments Start Date Stop Date Sourc e Natural father Cancer Unive [facility] Natural mother Cancer Unive [facility] Social History Social Habit Start Date Stop Date Quantity Comments Source Gender identity Nathaniel anabelle [facility] Sexual orientation [facility] Tobacco use and exposure 2025-05-29 00:00:00 2025-05-29 00:00:00 Smokeless tobacco non-user [facility] History of Social function 2025-04-11 00:00:00 2025-04-11 00:00:00 [facility] Alcoholic beverage intake 2025-04-10 00:00:00 2025-04-10 00:00:00 Lifetime non-drinker (finding) [facility] Alcohol intake 2024-02-11 00:00:00 2024-02-11 00:00:00 Current non-drinker of alcohol (finding) [facility] Exposure to SARS-CoV-2 (event) 2021-06-10 00:00:00 2021-07-10 10:13:00 Not sure [facility] Sex assigned at 1955 00:00:00 1955 00:00:00 [facility] Smoking Status Start Date Stop Date Source Tobacco smoking consumption unknown [facility] Never smoked tobacco [facility] Medications Ordered Medication Name Filled Medication Name Start Date Stop Date Current Medication? Ordering Clinician Indication Dosage Frequency Signature (SIG) Comments Components Source metFORMIN 500 mg tablet 05-30 11:35: 17 Yes 500mg Take 1 tablet by mouth in the morning and 1 tablet in the evening. Take with meals. [facility] amLODIPine 10 mg tablet 05-30 11:35: 17 Yes 10mg Take 1 tablet by mouth in the morning. Hold for SBP <120, DBP <60, HR <60 [facility] multivitami n with minerals (MULTIPLE VITAMIN-MIN ERALS) tablet 05-30 11:35: 17 Yes 1{tbl} Take 1 tablet by mouth in the morning. [facility] insulin glargine,hu m.rec.anlog (SEMGLEE PEN U-100 INSULIN SC) 05-30 11:35: 17 Yes 24U inject 24 Units under the skin in the morning. [facility] ketoconazol e 2 % cream 05-30 11:35: 17 Yes Apply to area(s) 2 times daily as needed for Other or Pain (scale 4-6) (Leg/Foot pain). Apply to BLE [facility] HYDROcodone -acetaminop hen 5-325 mg tablet 05-30 11:35: 17 Yes 1{tbl} Take 1 tablet by mouth every 6 hours as needed for Pain (scale 4-6). [facility] acetaminoph en (TYLENOL) 325 mg tablet 05-30 11:35: 17 Yes 650mg Take 2 tablets by mouth every 4 hours as needed for Pain (scale 1-3). [facility] ipratropium -albuteroL 0.5 mg-3 mg(2.5 mg base)/3 mL nebulizer solution 05-30 11:35: 17 Yes 3mL Inhale 3 mL every 6 hours as needed for Shortness of Breath. [facility] loperamide 2 mg capsule 05-30 11:35: 17 Yes 2mg Take 1 capsule by mouth every 4 hours as needed for Other (Diarrhea) . [facility] albuterol 2.5 mg /3 mL (0.083 %) nebulizer solution 05-30 11:35: 17 Yes 2.5mg Inhale 3 mL every 6 hours as needed for Shortness of Breath. [facility] tamsulosin (FLOMAX) capsule 0.4 mg tamsulosin (FLOMAX) capsule 0.4 mg 05-30 02:00: 00 Yes .4mg 0.4 mg, Oral, QHS, First dose on Thu05/29/25 at 2100, Until Discontinu ed, Routine [facility] enoxaparin (LOVENOX) injection 40 mg enoxaparin (LOVENOX) injection 40 mg 05-29 22:00: 00 05-30 16:35 :17 Yes 40mg 40 mg, Subcutaneo us, DAILY AT 1700, First dose on Thu05/29/25 at 1700, Until Discontinu ed, Routine [facility] Sliding Scale Insulin - Lispro (HumaLOG) [id number] [id number] 7-07 13:00: 00 05-30 16:35 :17 Yes Subcutaneo us, TID MEALS+HS, First dose on Thu05/29/25 at 0800, Until Discontinu ed, Routine [facility] glucagon HCL injection 1 mg 05-29 04:01: 50 05-30 16:35 :17 No 1mg 1 mg, Intramuscu lar, PRN, Starting on Thu05/28/25 at 2301, Until Thu05/30/25 at 1135, RICHARD, Low blood sugar, Blood Glucose < or = 70 mg/dL and patient is NPO, unable to swallow or has mental changes. [facility] dextrose 50 % in water (D50W) injection 25 mL 05-29 04:01: 50 05-30 16:35 :17 No 25mL 25 mL, Slow IV Push, PRN, Starting on Thu05/28/25 at 2301, Until Thu05/30/25 at 1135, RICHARD, Blood Glucose < or = 70 mg/dL and patient is NPO, unable to swallow or has mental status changes. [facility] ondansetron (ZOFRAN (PF)) injection 4 mg 05-29 04:01: 43 05-30 16:35 :17 No 4mg 4 mg, Slow IV Push, Q6HPRN, Starting on Thu05/28/25 at 2301, Until Thu05/30/25 at 1135, Administer over 2-5 Minutes, 2 mL [facility] acetaminoph en (TYLENOL) tablet 650 mg 05-29 04:01: 39 05-30 16:35 :17 No 650mg 650 mg, Oral, Q6HPRN, Starting on Thu05/28/25 at 2301, Until Thu05/30/25 at 1135, Routine, Pain (scale 1-3) [facility] NaCl 0.9% (NS) bolus infusion 1,000 mL 05-29 00:45: 00 05-29 01:11 :00 No 1000mL at 999 mL/hr, 1,000 mL, IV Infusion, ONCE, 1 dose, On 05/28/25 at 1945, RICHARD [facility] tamsulosin 0.4 mg 24 hr capsule 05-29 00:00: 00 06-29 04:59 :00 Yes [id number] .4mg Take 1 capsule by mouth at bedtime for 30 days. [facility] Zinc Sulfate 50 mg zinc (220 mg) Tab 05-23 00:00: 00 07-08 04:59 :00 Yes 1{capsu le} Take 1 capsule by mouth in the morning. [facility] ascorbic acid, vitamin C, 500 mg tablet 05-23 00:00: 00 07-08 04:59 :00 Yes 500mg Take 1 tablet by mouth in the morning. [facility] sodium hypochlorit e 0.25% solution 04-29 00:00: 00 Yes [id number] Apply to area(s) daily. [facility] furosemide (LASIX) injection 20 mg furosemide (LASIX) injection 20 mg 04-28 01:00: 00 04-28 15:07 :44 Yes 20mg 20 mg, Slow IV Push, Q12H, First dose on Thu04/27/25 at 2000, Until Discontinu ed, Routine [facility] tamsulosin 0.4 mg 24 hr capsule 04-28 00:00: 00 05-29 00:00 :00 No [id number] .4mg Take 1 capsule by mouth at bedtime for 30 days. [facility] tamsulosin (FLOMAX) capsule 0.4 mg tamsulosin (FLOMAX) capsule 0.4 mg 04-27 02:00: 00 Yes .4mg 0.4 mg, Oral, QHS, First dose on Thu04/26/25 at 2100, Until Discontinu ed, Routine [facility] enoxaparin (LOVENOX) injection 40 mg enoxaparin (LOVENOX) injection 40 mg 04-26 22:00: 00 04-29 00:37 :33 Yes 40mg 40 mg, Subcutaneo us, DAILY AT 1700, First dose on Thu04/26/25 at 1700, Until Discontinu ed, Routine [facility] acetaminoph en (TYLENOL) tablet 1,000 mg 04-26 19:01: 42 04-29 00:37 :34 No 1000mg 1,000 mg, Oral, Q8HPRN, Starting on Thu04/26/25 at 1401, Until Thu04/28/25 at 1937, Routine, Pain (scale 1-3) [facility] traMADoL (ULTRAM) tablet 50 mg 04-26 19:01: 09 04-29 00:37 :34 No 50mg 50 mg, Oral, Q6HPRN, Starting on Thu04/26/25 at 1401, Until Thu04/28/25 at 1937, Routine, Pain (scale 7-10) [facility] sodium hypochlorit e 0.25% (DAKIN'S SOLUTION) solution sodium hypochlorit e 0.25% (DAKIN'S SOLUTION) solution 04-26 14:00: 00 Yes Topical, DAILY, First dose on Thu04/26/25 at 0900, Until Discontinu ed, Routine [facility] KCL (POTASSIUM CHLORIDE) 20 mEq, sodium chloride 38.52 mEq in dextrose 10 % in water (D10W) 1,000 mL IV infusion KCL (POTASSIUM CHLORIDE) 20 mEq, sodium chloride 38.52 mEq in dextrose 10 % in water (D10W) 1,000 mL IV infusion 04-26 02:15: 00 04-26 08:14 :11 Yes IV Infusion, CONTINUOUS , Starting on Thu04/25/25 at 2115, Until Thu04/26/25 at 0314, Routine [facility] Sliding Scale Insulin - Lispro (HumaLOG) [id number] 7645-0 6-04 01:00: 00 04-29 00:37 :34 Yes Subcutaneo us, Q4H, First dose on Thu04/25/25 at 2000, Until Discontinu ed, Routine [facility] glucagon HCL injection 1 mg 04-26 00:44: 40 04-29 00:37 :34 No 1mg 1 mg, Intramuscu lar, PRN, Starting on Thu04/25/25 at 1944, Until Thu04/28/25 at 1937, RICHARD, Low blood sugar, Blood Glucose < or = 70 mg/dL and patient is NPO, unable to swallow or has mental changes. [facility] dextrose 50 % in water (D50W) injection 25 mL 04-26 00:44: 40 04-29 00:37 :34 No 25mL 25 mL, Slow IV Push, PRN, Starting on Thu04/25/25 at 1944, Until Thu04/28/25 at 1937, RICHARD, Blood Glucose < or = 70 mg/dL and patient is NPO, unable to swallow or has mental status changes. [facility] dextrose 50 % in water (D50W) injection 50 mL 04-26 00:15: 00 04-26 00:08 :00 No 50mL 50 mL, Intravenou s, ONCE, 1 dose, On Thu04/25/25 at 1915, STAT [facility] ascorbic acid (Vitamin C) 250 MG [...] insulin lispro (HumaLOG, Admelog) injection 2-8 Units [id number] 5-19 17:41: 41 Yes 2U [id number] 3D 2-8 Units, Subcutaneo us, 3 times [...] tablet 04-04 00:00: 00 04-04 00:00 :00 No 20mg QD Take 1 tablet by mouth 1 time each day. [facility] HYDROcodone -acetaminop hen (NORCO) 10-325 mg tablet 1 tablet 12-28 13:45: 00 12-28 12:39 :00 No 1{tbl} 1 tablet, Oral, ONCE NOW, 1 dose, On Thu12/28/24 at 0745, Routine [facility] ibuprofen 800 mg tablet 12-28 00:00: 00 Yes [id number] 800mg Take 1 tablet by mouth every 8 (eight) hours as needed for Pain (scale 4-6). [facility] insulin regular (NovoLIN R) 100 UNIT/ML injection insulin regular (NovoLIN R) 100 UNIT/ML injection 2023-11 00:00: 00 04-13 00:00 :00 No Inject under the skin in the morning and at noon and in the evening. Inject with meals. Per sliding scale. [facility] mupirocin (BACTROBAN OINT) 2 % oinintment 2023-11 0 19:00: 00 Yes [facility] Sliding Scale Insulin - Lispro (HumaLOG) 2023-11 0 17:00: 00 Yes Subcutaneo us, TID MEALS+HS, First dose on Thu08/25/24 at 1200, Until Discontinu ed, Routine [facility] metFORMIN (GLUCOPHAGE ) tablet 500 mg 2023-11 0 17:00: 00 Yes 500mg 500 mg, Oral, BID MEALS, First dose on Thu08/25/24 at 1200, Until Discontinu ed, Routine [facility] atorvastati n (LIPITOR) tablet 20 mg 2023-11 0- 02:00: 00 Yes 20mg 20 mg, Oral, QHS, First dose on Thu08/24/24 at 2100, Until Discontinu ed [facility] mupirocin 2 % ointment 2023-11 00:00: 00 Yes [id number] Apply to area(s) 3 (three) times daily. [facility] lisinopriL- hydrochloro thiazide 10-12.5 mg per tablet 2023-11 00:00: 09-25 04:59 :00 No [id number] 1{tbl} Take 1 tablet by mouth in the morning for 30 days. [facility] furosemide 20 mg tablet 2023-11 00:00: 09-25 04:59 :00 No [id number] 20mg Take 1 tablet by mouth in the morning for 30 days. [facility] aspirin 81 mg EC tablet 2023-11 00:00: 09-25 04:59 :00 No [id number] 81mg Take 1 tablet by mouth in the morning for 30 days. [facility] gabapentin (NEURONTIN) 100 mg capsule 2023-11 00:00: 09-25 04:59 :00 No [id number] 200mg Take 2 capsules by mouth in the morning and 2 capsules at noon and 2 capsules in the evening. Do all this for 30 days. [facility] metFORMIN 1,000 mg tablet 2023-11 00:00: 00 09-25 04:59 :00 No [id number] 1000mg Take 1 tablet by mouth in the morning and 1 tablet in the evening. Take with meals. Do all this for 30 days. [facility] simvastatin 40 mg tablet 2023-11 00:00: 09-25 04:59 :00 No [id number] 40mg Take 1 tablet by mouth at bedtime for 30 days. [facility] gabapentin (NEURONTIN) capsule 200 mg 2023-11 19:00: 00 Yes 200mg 200 mg, Oral, TID, First dose (after last modificati on) on Thu08/24/24 at 1400, Until Discontinu ed, Routine [facility] D10W 10 % IV infusion 2023-11 17:00: 00 08-25 00:50 :56 No at 50 mL/hr, IV Infusion, CONTINUOUS , Starting on Thu08/24/24 at 1200, Until Thu08/24/24 at 1950, Routine [facility] D10W 10 % IV infusion 2023-11 15:45: 00 08-24 16:52 :00 No at 100 mL/hr, IV Infusion, CONTINUOUS , Starting on Thu08/24/24 at 1045, Until Thu08/24/24 at 1152, Routine [facility] lisinopriL (PRINIVIL,Z ESTRIL) tablet 10 mg 2023-11 14:00: 00 Yes 10mg 10 mg, Oral, DAILY, First dose on Thu08/24/24 at 0900, Until Discontinu ed, Routine [facility] aspirin EC tablet 81 mg 2023-11 14:00: 00 Yes 81mg 81 mg, Oral, DAILY, First dose on Thu08/24/24 at 0900, Until Discontinu ed, Routine [facility] hydroCHLORO thiazide (ESIDRIX) tablet 12.5 mg 2023-11 14:00: 00 08-24 13:33 :00 No 12.5mg 12.5 mg, Oral, DAILY, 1 dose, First dose on Thu08/24/24 at 0900, Routine [facility] furosemide (LASIX) injection 40 mg 2023-11 05:00: 00 Yes 40mg 40 mg, Slow IV Push, DAILY, First dose on Thu08/24/24 at 0000, Until Discontinu ed, Routine [facility] gabapentin (NEURONTIN) capsule 100 mg 2023-11 01:00: 00 08-24 17:10 :41 No 100mg 100 mg, Oral, TID, First dose on Thu08/23/24 at 2000, Until Discontinu ed, Routine [facility] HYDROcodone -acetaminop hen (NORCO 5) tablet 1 tablet 2023-11 00:38: 38 Yes 1{tbl} 1 tablet, Oral, Q6HPRN, Starting on Thu08/23/24 at 1938, Until Discontinu ed, Routine, Pain (scale 7-10) [facility] tiZANidine (ZANAFLEX) tablet 4 mg 2023-11 00:38: 06 Yes 4mg [facility] enoxaparin (LOVENOX) injection 40 mg 2023-11 22:00: 00 Yes 40mg 40 mg, Subcutaneo us, DAILY, First dose on Thu08/23/24 at 1700, Until Discontinu ed, Routine [facility] D10W 10 % IV infusion 2023-11 21:45: 00 08-24 15:36 :54 No at 200 mL/hr, IV Infusion, CONTINUOUS , Starting on Thu08/23/24 at 1645, Until Thu08/24/24 at 1036, Routine [facility] D10W 10 % IV infusion 2023-11 17:00: 00 08-23 21:34 :55 No at 150 mL/hr, IV Infusion, CONTINUOUS , Starting on Thu08/23/24 at 1200, Until Thu08/23/24 at 1634, Routine [facility] glucagon HCL injection 1 mg 2023-11 16:36: 57 Yes 1mg 1 mg, Intramuscu lar, PRN, Starting on Thu08/23/24 at 1136, Until Discontinu ed, RICHARD, Low blood sugar, Blood Glucose < or = 70 mg/dL and patient is NPO, unable to swallow or has mental changes. [facility] dextrose 50 % in water (D50W) injection 25 mL 2023-11 16:36: 57 Yes 25mL 25 mL, Slow IV Push, PRN, Starting on Thu08/23/24 at 1136, Until Discontinu ed, RICHARD, Blood Glucose < or = 70 mg/dL and patient is NPO, unable to swallow or has mental status changes. [facility] dextrose 50 % in water (D50W) injection 50 mL 2023-11 16:00: 00 08-23 15:54 :00 No 50mL 50 mL, Intravenou s, ONCE, 1 dose, On Thu08/23/24 at 1100, STAT [facility] dextrose 50 % in water (D50W) injection 25 mL 2023-11 14:45: 00 08-23 14:41 :00 No 25mL 25 mL, Slow IV Push, ONCE, 1 dose, On Thu08/23/24 at 0945, STAT [facility] insulin NPH (HUMULIN N NPH U-100 INSULIN) 100 unit/mL injection 07-01 00:00: 00 08-01 04:59 :00 No [id number] 20U inject 20 Units under the skin 2 (two) times daily before breakfast and dinner for 30 days. [facility] amoxicillin -clavulanat e 875-125 mg per tablet 07-01 00:00: 00 07-23 04:59 :00 No [id number] 1{tbl} Take 1 tablet by mouth every 12 (twelve) hours for 21 days. [facility] amoxicillin -clavulanat e (AUGMENTIN) 875-125 mg per tablet 1 tablet 06-28 19:30: 00 07-02 12:59 :00 No 1{tbl} 1 tablet, Oral, Q12H, 8 doses, First dose on Thu06/28/24 at 1430, Last dose on Thu07/01/24 at 2000, Routine, Reason for Anti-Infec tive: Documented Infection, Documented Infection Site: Urine, Duration of Therapy: 7 days [facility] rifAMPin (RIFADIN) capsule 300 mg 06-28 17:15: 00 06-28 19:42 :55 No 300mg 300 mg, Oral, Q8H, First dose on Thu06/28/24 at 1215, Until Discontinu ed, RICHARD, Reason for Anti-Infec tive: Documented Infection, Documented Infection Site: Blood, Duration of Therapy: 7 days [facility] cefTRIAXone (ROCEPHIN) 1,000 mg in NaCl 0.9% (NS) 100 mL MINI-BAG 06-28 03:00: 00 06-28 19:17 :32 No 1000mg 1,000 mg, IV Piggyback, Q24H ABX, 7 doses, First dose on Thu06/27/24 at 2200, Last dose on Thu07/03/24 at 2200, Administer over 30 Minutes, 100 mL, Reason for Anti-Infec tive: Documented Infection, Documented Infection Site: Urine, Duration of Therapy: 7 days [facility] NaCl 0.9% (NS) IV infusion 1,000 mL 06-27 19:00: 00 06-29 06:11 :11 No 1000mL at 50 mL/hr, IV Infusion, CONTINUOUS , Starting on Thu06/27/24 at 1400, Until Thu06/29/24 at 0111, Routine, KVO [facility] Saline Bubble Study 06-27 18:24: 13 Yes [id number] 6mL 6 mL, Injection, SEE-INSTRU CTIONS, Starting on Thu06/27/24 at 1324, Until Discontinu ed, Routine [facility] vancomycin (VANCOCIN) 1,000 mg in [...] Site: Blood, Duration of Therapy: 7 days [facility] NaCl 0.9% (NS) injection 10 mL 06-27 15:11: 58 Yes 10mL 10 mL, Slow IV Push, PRN, Starting on Thu06/27/24 at 1011, Until Discontinu ed, Routine, line maintenanc e [facility] lidocaine 1% (PF) (XYLOCAINE) injection 5 mL 06-27 15:11: 58 06-27 15:45 :00 No 5mL 5 mL, Subcutaneo us, PRN, 1 dose, Starting on Thu06/27/24 at 1011, Until Thu06/27/24 at 1045, Routine, Local anesthesia [facility] magnesium sulfate in D5W 1 gram/100 mL RTU IV Piggyback 1 g 06-26 15:15: 00 06-26 16:55 :00 No 1g 1 g, IV Piggyback, ONCE, 1 dose, On Thu06/26/24 at 1015, Administer over 60 Minutes, 100 mL [facility] lisinopriL (PRINIVIL,Z ESTRIL) tablet 20 mg 06-26 13:00: 00 Yes 20mg 20 mg, Oral, BID, First dose (after last modificati on) on Thu06/26/24 at 0800, Until Discontinu ed, Routine [facility] hydralAZINE (APRESOLINE ) injection 10 mg 06-26 12:45: 32 Yes 10mg 10 mg, Slow IV Push, Q4HPRN, Starting on Thu06/26/24 at 0745, Until Discontinu ed, Routine, DBP=>100; SBP=>160 [facility] lisinopriL (PRINIVIL,Z ESTRIL) tablet 20 mg 06-25 14:00: 00 06-26 12:45 :20 No 20mg 20 mg, Oral, DAILY, First dose (after last modificati on) on Thu06/25/24 at 0900, Until Discontinu ed, Routine [facility] atorvastati n (LIPITOR) tablet 40 mg 06-25 02:00: 00 Yes 40mg 40 mg, Oral, QHS, First dose on Thu06/24/24 at 2100, Until Discontinu ed [facility] lisinopriL (PRINIVIL,Z ESTRIL) tablet 10 mg 06-24 20:45: 00 06-25 00:21 :41 No 10mg 10 mg, Oral, DAILY, First dose on Thu06/24/24 at 1545, Until Discontinu ed, Routine [facility] vancomycin 1,250 mg in NaCl 0.9% (NS) 250 mL VIAL-MATE IV piggyback 06-24 15:30: 00 06-27 14:18 :02 No 1250mg 1,250 mg, IV Piggyback, Q12H ABX, First dose on Thu06/24/24 at 1030, Until Discontinu ed, Administer over 90 Minutes, 250 mL, Reason for Anti-Infec tive: Documented Infection, Documented Infection Site: Blood, Duration of Therapy: 7 days [facility] furosemide (LASIX) tablet 20 mg 06-24 14:00: 00 Yes 20mg 20 mg, Oral, DAILY, First dose on Thu06/24/24 at 0900, Until Discontinu ed, Routine [facility] aspirin EC tablet 81 mg 06-24 14:00: 00 Yes 81mg 81 mg, Oral, DAILY, First dose on Thu06/24/24 at 0900, Until Discontinu ed, Routine [facility] gabapentin (NEURONTIN) capsule 100 mg 06-24 13:00: 00 Yes 100mg 100 mg, Oral, TID, First dose on Thu06/24/24 at 0800, Until Discontinu ed, Routine [facility] insulin NPH (HUMULIN N) injection 20 Units 06-24 12:30: 00 Yes 20U 20 Units, Subcutaneo us, BIDAC, First dose on Thu06/24/24 at 0730, Until Discontinu ed, Routine [facility] tiZANidine (ZANAFLEX) tablet 4 mg 06-24 12:28: 17 Yes 4mg [facility] ondansetron (ZOFRAN (PF)) injection 4 mg 06-24 09:32: 26 Yes 4mg 4 mg, Slow IV Push, Q6HPRN, Nausea and Vomiting (N/V), Starting on Thu06/24/24 at 0432, Doses of ondansetro n 16 mg and above need to be administer ed via IV piggyback. For Dose >=24mg ECG monitoring is advisable. [facility] enoxaparin (LOVENOX) injection 40 mg 06-23 22:00: 00 Yes 40mg 40 mg, Subcutaneo us, DAILY, First dose on Thu06/23/24 at 1700, Until Discontinu ed, Routine [facility] Sliding Scale Insulin - Lispro (HumaLOG) 06-23 22:00: 00 Yes Subcutaneo us, TID MEALS+HS, First dose on Thu06/23/24 at 1700, Until Discontinu ed, Routine [facility] cefTRIAXone (ROCEPHIN) 1,000 mg in [...] Site: Urine, Duration of therapy: 5 days [facility] acetaminoph en (TYLENOL) tablet 650 mg 06-23 19:05: 37 Yes 650mg 650 mg, Oral, Q6HPRN, Starting on Thu06/23/24 at 1405, Until Discontinu ed, Routine, Pain (scale 1-3) [facility] glucagon (GLUCAGEN DIAGNOSTIC KIT) injection 1 mg 06-23 19:03: 24 Yes 1mg 1 mg, Intramuscu lar, PRN, Starting on Thu06/23/24 at 1403, Until Discontinu ed, RICHARD, Blood Glucose < or = 70 mg/dL and patient is NPO, unable to swallow or has mental changes. [facility] dextrose 50 % in water (D50W) injection 25 mL 06-23 19:03: 24 Yes 25mL 25 mL, Slow IV Push, PRN, Starting on Thu06/23/24 at 1403, Until Discontinu ed, RICHARD, Blood Glucose < or = 70 mg/dL and patient is NPO, unable to swallow or has mental status changes. [facility] vancomycin (VANCOCIN) 1,500 mg in [...] Site: Blood, Duration of Therapy: Once (ED) [facility] cephALEXin (KEFLEX) capsule 1,000 mg 06-20 17:00: 00 06-20 17:01 :00 No 1000mg 1,000 mg, Oral, ONCE, 1 dose, On 06/20/24 at 1200, RICHARD, Reason for Anti-Infec tive: Documented Infection, Documented Infection Site: Skin / Soft Tissue, Duration of Therapy: Once (ED) [facility] neomycin-ba citracin-po lymyxin 3.5mg-400 unit- 5,000 unit/gram topical ointment 06-20 00:00: 00 08-23 00:00 :00 No [id number] Apply to area(s) 4 (four) times daily. [facility] cephALEXin 500 mg capsule 06-20 00:00: 00 07-01 00:00 :00 No [id number] 500mg Take 1 capsule by mouth 4 (four) times daily. [facility] ketorolac (TORADOL) injection 15 mg 06-19 19:30: 00 06-19 18:25 :00 No 15mg 15 mg, Slow IV Push, ONCE, 1 dose, On 06/19/24 at 1430, IRCHARD [facility] cefTRIAXone (ROCEPHIN) 1,000 mg in NaCl 0.9% (NS) 100 mL MINI-BAG 06-19 19:00: 00 06-19 19:49 :00 No 1000mg 1,000 mg, IV Piggyback, ONCE, 1 dose, On 06/19/24 at 1400, Administer over 30 Minutes, 100 mL, Reason for Anti-Infec tive: Empiric Therapy for Suspected Infection, Empiric Therapy Site: Urine, Duration of therapy: Once (ED) [facility] mupirocin 2 % ointment 06-19 00:00: 00 08-23 00:00 :00 No [id number] Apply to area(s) 3 (three) times daily. [facility] furosemide (LASIX) tablet 40 mg 06-17 00:30: 00 06-16 23:47 :00 No 40mg 40 mg, Oral, ONCE, 1 dose, On Thu06/16/24 at 1930, Routine [facility] acetaminoph en (TYLENOL) tablet 1,000 mg 06-16 23:45: 00 06-16 23:47 :00 No 1000mg 1,000 mg, Oral, ONCE NOW, 1 dose, On Thu06/16/24 at 1845, Routine [facility] insulin regular human (HUMULIN R) injection 5 Units 04-06 10:30: 00 04-06 09:38 :00 No 5U 5 Units, Subcutaneo us, ONCE, 1 dose, On Thu04/06/24 at 0530, Routine, Indication for insulin: Hyperglyce danae [facility] insulin regular human (HUMULIN R) injection 5 Units 04-06 09:30: 00 04-06 08:38 :00 No 5U 5 Units, Subcutaneo us, ONCE, 1 dose, On Thu04/06/24 at 0430, Routine, Indication for insulin: Hyperglyce danae [facility] ergocalcife rol (vitamin d2) (CALCIFEROL ) capsule 50,000 Units 04-06 09:00: 00 04-06 08:33 :00 No [id number] 50,000 Units, Oral, ONCE NOW, 1 dose, On Thu04/06/24 at 0400, Routine [facility] magnesium sulfate in water 2 gram/50 mL (4 %) infusion 2 g 04-06 08:45: 00 04-06 09:30 :00 No 2g 2 g, IV Piggyback, Administer over 60 Minutes, ONCE, 1 dose, On Thu04/06/24 at 0345, [facility] thiamine (VITAMIN B1) injection 100 mg 04-06 08:00: 00 04-06 08:32 :00 No 100mg 100 mg, Slow IV Push, ONCE, 1 dose, On Thu04/06/24 at 0300, [facility] ceFAZolin (ANCEF) 1,000 mg in NaCl 0.9% (NS) 100 mL MINI-BAG 04-06 07:45: 00 04-06 07:30 :00 No 1000mg 1,000 mg, Intravenou s, ONCE, 1 dose, On Thu04/06/24 at 0245, Administer over 30 Minutes, 100 mL, Reason for Anti-Infec tive: Documented Infection, Documented Infection Site: Skin / Soft Tissue, Duration of Therapy: Once (ED) [facility] insulin regular human (HUMULIN R) injection 10 Units 04-06 07:30: 00 04-06 07:34 :00 No 10U 10 Units, Slow IV Push, ONCE, 1 dose, On Thu04/06/24 at 0230, STAT, Indication for insulin: Hyperglyce [facility] furosemide (LASIX) injection 40 mg 04-06 07:00: 00 04-06 06:59 :00 No 40mg 40 mg, IV Push, ONCE, 1 dose, On Thu04/06/24 at 0200, [facility] gabapentin (NEURONTIN) capsule 300 mg 04-06 07:00: 00 04-06 06:57 :00 No 300mg 300 mg, Oral, ONCE, 1 dose, On Thu04/06/24 at 0200, [facility] gabapentin (NEURONTIN) 100 mg capsule 04-06 00:00: 00 08-25 00:00 :00 No [id number] 100mg Take 1 capsule by mouth in the morning and 1 capsule at noon and 1 capsule in the evening. [facility] furosemide 20 mg tablet 04-06 00:00: 00 07-01 00:00 :00 No [id number] 20mg Take 1 tablet by mouth every morning. [facility] cephALEXin 500 mg capsule 04-06 00:00: 00 07-01 00:00 :00 No [id number] 500mg Take 1 capsule by mouth 4 (four) times daily. [facility] mupirocin 2 % ointment 04-06 00:00: 00 07-01 00:00 :00 No [id number] Apply to area(s) 3 (three) times daily. [facility] NaCl 0.9% (NS) bolus infusion 500 mL 04-03 21:15: 00 04-03 22:05 :00 No 500mL at 999 mL/hr, 500 mL, IV Infusion, ONCE, 1 dose, On 04/03/24 at 1615, [facility] magnesium sulfate in water 2 gram/50 mL (4 %) infusion 2 g 04-03 17:45: 00 04-03 19:00 :00 No 2g 2 g, IV Piggyback, Administer over 60 Minutes, ONCE, 1 dose, On 04/03/24 at 1245, Routine [facility] NaCl 0.9% (NS) bolus infusion 500 mL 04-03 16:00: 00 04-03 16:30 :00 No 500mL at 999 mL/hr, 500 mL, IV Infusion, ONCE, 1 dose, On Thu04/03/24 at 1100, RICHARD [facility] acetaminoph en (TYLENOL) tablet 650 mg 04-03 15:15: 00 04-03 15:46 :00 No 650mg 650 mg, Oral, ONCE, 1 dose, On Thu04/03/24 at 1015, RICHARD [facility] piperacilli n-tazobacta m (ZOSYN) 3.375 g in NaCl 0.9% (NS) 100 mL VIAL-MATE 04-03 15:15: 00 04-03 16:19 :00 No 3.375g 3.375 g, IV Piggyback, ONCE, 1 dose, On Sun 24 at 1015, Administer over 30 Minutes, 100 mL, Reason for Anti-Infec tive: Documented Infection, Documented Infection Site: Skin / Soft Tissue, Duration of Therapy: Once (ED) [facility] doxycycline hyclate 100 mg capsule 04-03 00:00: 00 07-01 00:00 :00 No [id number] 100mg Take 1 capsule by mouth in the morning and 1 capsule in the evening. [facility] insulin regular human (HUMULIN R) injection 10 Units 03-31 21:45: 00 03-31 23:18 :00 No 10U 10 Units, Slow IV Push, ONCE, 1 dose, On Thu03/31/24 at 1645, STAT, Indication for insulin: Hyperglyce [facility] acetaminoph en (TYLENOL) tablet 650 mg 03-29 21:15: 00 03-29 22:29 :00 No 650mg 650 mg, Oral, ONCE, 1 dose, On Thu03/29/24 at 1615, RICHARD [facility] NaCl 0.9% (NS) bolus infusion 500 mL 03-22 16:30: 00 03-22 21:50 :00 No 500mL at 999 mL/hr, 500 mL, IV Infusion, ONCE, 1 dose, On Thu03/22/24 at 1130, RICHARD [facility] NaCl 0.9% (NS) bolus infusion 1,000 mL 03-12 03:30: 00 03-12 04:43 :00 No 1000mL at 999 mL/hr, 1,000 mL, IV Infusion, ONCE, 1 dose, On Thu03/11/24 at 2230, STAT [facility] insulin regular human (HUMULIN R) injection 10 Units 03-12 03:30: 00 03-12 02:40 :00 No 10U 10 Units, IV Push, ONCE, 1 dose, On Thu03/11/24 at 2230, RICHARD
In dication for insulin: Hyperglyce [facility] NaCl 0.9% (NS) bolus infusion 1,000 mL 03-12 02:45: 00 03-12 03:00 :00 No 1000mL at 999 mL/hr, 1,000 mL, IV Infusion, ONCE, 1 dose, On Thu03/11/24 at 2145, STAT [facility] meclizine (TRAVEL-EAS E (MECLIZINE) ) tablet 25 mg 02-09 17:15: 00 02-09 17:17 :00 No 25mg 25 mg, Oral, ONCE, 1 dose, On Thu02/10/24 at 1215, RICHARD [facility] ketorolac (TORADOL) injection 15 mg 02-08 20:00: 00 02-08 20:42 :00 No 15mg 15 mg, Intramuscu lar, ONCE, 1 dose, On Thu02/09/24 at 1500, Routine [facility] methocarbam oL (ROBAXIN) tablet 1,000 mg 02-08 19:15: 00 02-08 20:43 :00 No 1000mg 1,000 mg, Oral, ONCE, 1 dose, On Thu02/09/24 at 1415, RICHARD [facility] cyclobenzap rine (FLEXERIL) tablet 10 mg 02-05 15:30: 00 02-05 15:14 :00 No 10mg 10 mg, Oral, ONCE, 1 dose, On 02/06/24 at 1030, Routine [facility] cyclobenzap rine 10 mg tablet 02-05 00:00: 00 02-11 04:59 :00 No [id number] 10mg Take 1 tablet by mouth in the morning and 1 tablet at noon and 1 tablet in the evening. Do all this for 15 doses. [facility] dicyclomine (BENTYL) tablet 20 mg 01-29 20:45: 00 01-29 20:51 :00 No 20mg 20 mg, Oral, ONCE, 1 dose, On 01/30/24 at 1445, RICHARD [facility] methocarbam oL (ROBAXIN) tablet 1,000 mg 01-29 19:15: 00 01-29 19:06 :00 No 1000mg 1,000 mg, Oral, ONCE, 1 dose, On 01/30/24 at 1315, RICHARD [facility] ketorolac (TORADOL) tablet 10 mg 01-29 17:45: 00 01-29 17:01 :00 No 10mg 10 mg, Oral, ONCE, 1 dose, On 01/30/24 at 1145, Routine [facility] tiZANidine 4 mg tablet 01-29 00:00: 00 08-25 00:00 :00 No [id number] 4mg Take 1 tablet by mouth every 6 (six) hours as needed for Pain (scale 7-10). [facility] dicyclomine 20 mg tablet 01-29 00:00: 00 07-01 00:00 :00 No [id number] 20mg Take 1 tablet by mouth 4 (four) times daily as needed for Abdominal pain. [facility] ibuprofen (IBU) tablet 600 mg 01-15 03:30: 00 01-15 03:42 :00 No 600mg 600 mg, Oral, ONCE, 1 dose, On Sheree 01/14/24 at 2130, RICHARD [facility] methocarbam oL (ROBAXIN) tablet 750 mg 01-15 03:26: 00 01-15 03:42 :00 No 750mg 750 mg, Oral, ONCE NOW, 1 dose, On Sheree 01/14/24 at 2130, RICHARD [facility] LISINOPRIL- HYDROCHLORO THIAZIDE 10-12.5 mg per tablet 02-17 00:00: 00 08-25 00:00 :00 No [id number] Take 1 tablet by mouth once daily [facility] blood sugar diagnostic (TRUE METRIX GLUCOSE TEST STRIP) strip 2020-11 00:00: 00 Yes [id number] Monitor Blood Glucose daily [facility] lancets (TRUEPLUS LANCETS) 33 gauge Misc 2020-11 00:00: 00 Yes [id number] Monitor Blood Glucose daily [facility] Alcohol Swabs (BD SINGLE USE SWABS REGULAR) PadM 2020-11 00:00: 00 Yes [id number] Apply to area(s) daily. Monitor Blood Glucose daily [facility] blood sugar diagnostic (TRUE METRIX GLUCOSE TEST STRIP) strip 2020-11 00:00: 00 Yes [id number] Monitor Blood Glucose daily [facility] lancets (TRUEPLUS LANCETS) 33 gauge [facility] 2020-11 00:00: 00 Yes [id number] Monitor Blood Glucose daily [facility] simvastatin 40 mg tablet 2020-11 00:00: 00 08-25 00:00 :00 No [id number] 40mg Take 1 tablet by mouth at bedtime. [facility] furosemide 20 mg tablet 2020-11 00:00: 00 08-25 00:00 :00 No [id number] 20mg Take 1 tablet by mouth daily. [facility] SIMVASTATIN 40 mg tablet 2020-11 00:00: 00 Yes [id number] 40mg TAKE 1 TABLET BY MOUTH AT BEDTIME [facility] furosemide 20 mg tablet 07-10 00:00: 00 Yes [id number] 20mg Take 1 tablet by mouth every Thursday, and Thursday in the evening. [facility] metFORMIN 1,000 mg tablet 07-10 00:00: 00 08-25 00:00 :00 No [id number] 1000mg Take 1 tablet by mouth 2 (two) times daily with meals. [facility] insulin NPH (HUMULIN N NPH U-100 INSULIN) 100 unit/mL injection 07-10 00:00: 00 07-01 00:00 :00 No [id number] INJECT 35 UNITS SUBCUTANEO USLY EVERY MORNING AND EVENING. Office visit needed for further refills. [facility] lisinopriL- hydrochloro thiazide 10-12.5 mg per tablet 07-10 00:00: 00 02-17 00:00 :00 No [id number] 1{tbl} Take 1 tablet by mouth daily. [facility] simvastatin (ZOCOR) 40 mg tablet 07-10 00:00: 00 10-04 00:00 :00 No [id number] 40mg Take 1 tablet by mouth at bedtime. [facility] insulin NPH (HUMULIN N NPH U-100 INSULIN) 100 unit/mL injection 06-19 00:00: 00 07-10 00:00 :00 No [id number] INJECT 35 UNITS SUBCUTANEO USLY EVERY MORNING AND EVENING. Office visit needed for further refills. [facility] HUMULIN N NPH U-100 INSULIN 100 unit/mL injection 05-21 00:00: 00 Yes [id number] INJECT 35 UNITS SUBCUTANEO USLY IN THE MORNING AND IN THE EVENING [facility] furosemide 20 mg tablet 02-15 00:00: 00 07-10 00:00 :00 No [id number] 20mg Take 1 tablet by mouth every Thursday, and Thursday in the evening. [facility] sildenafiL 50 mg tablet 02-14 00:00: 00 07-01 00:00 :00 No [id number] 50mg Take 1 tablet by mouth as needed (Erectile dysfunctio n). Take 50mg x 1, about 30 mins - 4 hours prior to sexual activity. [facility] insulin NPH (HUMULIN N NPH U-100 INSULIN) 100 unit/mL injection 02-14 00:00: 00 05-21 00:00 :00 No [id number] INJECT 35 UNITS SUBCUTANEO USLY IN THE MORNING AND IN THE EVENING [facility] HUMULIN N NPH U-100 INSULIN 100 unit/mL injection 02-10 00:00: 00 02-14 00:00 :00 No [id number] INJECT 35 UNITS SUBCUTANEO USLY IN THE MORNING AND IN THE EVENING [facility] [employer] Misc 02-06 00:00: 00 Yes [id number] E11.8: dispense Insulin Syringe 31 gauge brand covered by insurance. Monitor Blood Sugar at Home BID [facility] Mis 317 00:00: 00 07-01 00:00 :00 No [id number] E11.8: dispense Insulin Syringe 31 gauge brand covered by insurance. Monitor Blood Sugar at Home BID [facility] Insulin Syringe-Nee dle U-100 1 mL 27 gauge x 1/2" Syrg 3- 00:00: 00 Yes [id number] Use as directed [facility] Insulin Syringe-Nee dle U-100 1 mL 27 gauge x 1/2" Syrg 3- 00:00: 00 Yes [id number] Use as directed [facility] Insulin Syringe-Nee dle U-100 1 mL 27 gauge x 1/2" Syrg 3- 00:00: 00 Yes [id number] Use as directed [facility] Insulin [place], Disposable, (PHUC PEN NEEDLE) 32 gauge x 5/32" Ndle 3- 00:00: 00 Yes [id number] Use as directed [facility] Insulin [place], Disposable, (PHUC PEN NEEDLE) 32 gauge x 5/32" Ndle 3- 00:00: 00 Yes [id number] Use as directed [facility] Insulin [place], Disposable, (PHUC PEN NEEDLE) 32 gauge x 5/32" Ndle 3- 00:00: 00 Yes [id number] Use as directed [facility] Insulin [place], Disposable, (PHUC PEN NEEDLE) 32 gauge x 5/32" Ndle 07-09 00:00: 00 Yes [id number] Use as directed [facility] aspirin 81 mg EC tablet 07-09 00:00: 00 08-25 00:00 :00 No [id number] 81mg Take 1 tablet by mouth daily. [facility] potassium chloride 10 mEq CR tablet 07-09 00:00: 08-23 00:00 :00 No [id number] 10meq Take 1 tablet by mouth every Thursday, and Thursday in the evening. [facility] lisinopril 10 mg tablet 07-09 00:00: 07-10 00:00 :00 No [id number] 10mg Take 1 tablet by mouth daily. [facility] simvastatin (ZOCOR) 40 mg tablet 07-09 00:00: 07-10 00:00 :00 No [id number] 40mg Take 1 tablet by mouth at bedtime. [facility] metFORMIN 1,000 mg tablet 07-09 00:00: 00 07-10 00:00 :00 No [id number] 1000mg Take 1 tablet by mouth 2 (two) times daily with meals. [facility] furosemide 20 mg tablet 07-09 00:00: 00 02-14 00:00 :00 No [id number] 20mg Take 1 tablet by mouth every Thursday, and Thursday in the evening. [facility] insulin NPH 100 unit/mL injection 07-09 00:00: 00 02-10 00:00 :00 No [id number] 35U inject 35 Units under the skin every morning and evening. [facility] potassium chloride 10 mEq CR tablet 04-13 00:00: 00 07-09 00:00 :00 No [id number] 10meq Take 1 tablet by mouth every Thursday, and Thursday in the evening. [facility] furosemide 20 mg tablet 04-13 00:00: 00 07-09 00:00 :00 No [id number] 20mg Take 1 tablet by mouth every Thursday, and Thursday in the evening. [facility] doxycycline hyclate 100 mg tablet 04-12 00:00: 00 07-09 00:00 :00 No [id number] 100mg Take 1 tablet by mouth 2 (two) times daily. [facility] diph,pertus (acel),teta nus (ADACEL) injection 0.5 mL 4-20 14:00: 00 03-13 01:59 :00 No .5mL 0.5 mL, Intramuscu lar, ONCE, 1 dose, 03/12/20 at 0900, Routine [facility] clindamycin 300 mg capsule 03-12 00:00: 00 03-23 04:59 :00 No [id number] 300mg Take 1 capsule by mouth 4 (four) times daily for 10 days. [facility] sildenafil 50 mg tablet 02-27 00:00: 00 02-14 00:00 :00 No [id number] 50mg Take 1 tablet by mouth as needed (Erectile dysfunctio n). Take 50mg x 1, about 30 mins - 4 hours prior to sexual activity. [facility] metFORMIN 1,000 mg tablet 01-18 00:00: 00 07-09 00:00 :00 No [id number] 1000mg Take 1 tablet by mouth 2 (two) times daily with meals. [facility] ondansetron (ZOFRAN (PF)) injection 4 mg 12-30 17:29: 59 Yes 4mg 4 mg, Slow IV Push, PRN, 1 dose, Starting Thu12/30/19 at 1129, Until Discontinu ed, Routine, Nausea and Vomiting (N/V), PACU [facility] water for irrigation irrigation solution 12-30 16:20: 00 Yes PRN, Starting Thu12/30/19 at 1020, Until Discontinu ed, Routine, Intra-op [facility] simethicone (GAS RELIEF (SIMETHICON E)) 40 mg/0.6 mL drops 12-30 16:19: 00 Yes PRN, Starting Thu12/30/19 at 1019, Until Discontinu ed, Routine, Intra-op [facility] NaCl 0.9% (NS) IV infusion 1,000 mL 12-30 13:45: 00 Yes 1000mL at 42 mL/hr, IV Infusion, CONTINUOUS , Starting Thu12/30/19 at 0745, Until Discontinu ed, Routine, DSU Pre-op [facility] peg-electro lyte soln 236-22.74-6 .74 -5.86 gram solution 11-30 00:00: 00 07-01 00:00 :00 No Take as directed [facility] prednisoLON E acetate 1 % ophthalmic suspension drops 2018-11 00:00: 00 Yes [id number] 1[drp] Place 1 Drop in right eye 4 (four) times daily. [facility] ofloxacin (OCUFLOX) 0.3 % ophthalmic solution 2018-11 00:00: 00 Yes [id number] 1[drp] Place 1 Drop in right eye 3 (three) times daily. [facility] aspirin 81 mg EC tablet 2018-11 00:00: 00 07-09 00:00 :00 No [id number] 81mg Take 1 tablet by mouth daily. [facility] Insulin [place], Disposable, (PHUC PEN NEEDLE) 32 gauge x 5/32" Ndle 2018-11 00:00: 00 07-09 00:00 :00 No [id number] Use as directed [facility] lactobacill us comb no.10 (PROBIOTIC) 20 billion cell Cap 06-10 00:00: 00 07-09 00:00 :00 No [id number] 1{capsu le} Take 1 capsule by mouth 2 (two) times daily. [facility] simvastatin (ZOCOR) 40 mg tablet 05-30 00:00: 00 07-09 00:00 :00 No [id number] 40mg Take 1 tablet by mouth at bedtime. [facility] lisinopril 10 mg tablet 05-30 00:00: 00 07-09 00:00 :00 No [id number] 10mg Take 1 tablet by mouth daily. [facility] insulin NPH 100 unit/mL injection 05-30 00:00: 00 07-09 00:00 :00 No [id number] 35U inject 35 Units under the skin every morning and evening. [facility] metFORMIN 500 mg tablet 05-30 00:00: 00 01-18 00:00 :00 No [id number] 500mg Take 1 tablet by mouth 2 (two) times daily with meals. [facility] Immunizations Ordered Immunization Name Filled Immunization Name Date Status Comments Source TD Pres-Free 2024-12-28 00:00:00 Completed [facility] TDAP 2024-07-04 00:00:00 Completed [facility] TDAP 2024-04-11 00:00:00 Completed [facility] TDAP 2024-04-06 01:32:00 Completed [facility] TDAP 2024-04-04 00:00:00 Completed [facility] TDAP 2024-04-03 09:43:00 Completed [facility] Vital Signs Vital Name Observation Time Observation Value Comments S ource Systolic blood pressure 2025-05-30 15:55:00 144 mm[Hg] [facility] Diastolic blood pressure 2025-05-30 15:55:00 67 mm[Hg] [facility] Heart rate 2025-05-30 15:55:00 57 /min [facility] Body temperature 2025-05-30 15:55:00 36.56 Ginny [facility] Respiratory rate 2025-05-30 15:55:00 19 /min [facility] Oxygen saturation in Arterial blood by Pulse oximetry 2025-05-30 15:55:00 93 /min [facility] Body height 2025-05-30 09:15:00 177.8 cm [facility] Body weight 2025-05-30 09:15:00 94.983 kg [facility] BMI 2025-05-30 09:15:00 30.05 kg/m2 [facility] Systolic blood pressure 2025-05-11 20:41:00 123 mm[Hg] [facility] Diastolic blood pressure 2025-05-11 20:41:00 63 mm[Hg] [facility] Heart rate 2025-05-11 20:41:00 79 /min [facility] Body temperature 2025-05-11 20:41:00 36.78 Ginny [facility] Respiratory rate 2025-05-11 20:41:00 18 /min [facility] Body height 2025-05-11 20:41:00 177.8 cm [facility] Body weight 2025-05-11 20:41:00 94.348 kg [facility] BMI 2025-05-11 20:41:00 29.84 kg/m2 [facility] Oxygen saturation in Arterial blood by Pulse oximetry 2025-05-11 20:41:00 100 /min [facility] Systolic blood pressure 2025-04-28 20:57:00 121 mm[Hg] [facility] Diastolic blood pressure 2025-04-28 20:57:00 60 mm[Hg] [facility] Heart rate 2025-04-28 20:57:00 60 /min [facility] Body temperature 2025-04-28 20:57:00 36.28 Ginny [facility] Respiratory rate 2025-04-28 20:57:00 16 /min [facility] Oxygen saturation in Arterial blood by Pulse oximetry 2025-04-28 20:57:00 98 /min [facility] Body weight 2025-04-28 08:38:00 94.484 kg [facility] BMI 2025-04-28 08:38:00 29.89 kg/m2 [facility] Body height 2025-04-26 03:05:00 177.8 cm [facility] Systolic blood pressure 2025-04-20 13:44:00 130 mm[Hg] [facility] Diastolic blood pressure 2025-04-20 13:44:00 61 mm[Hg] [facility] Heart rate 2025-04-20 13:44:00 61 /min [facility] Body temperature 2025-04-20 13:44:00 36.56 Ginny [facility] Respiratory rate 2025-04-20 13:44:00 22 /min [facility] Oxygen saturation in Arterial blood by Pulse oximetry 2025-04-20 13:44:00 96 /min [facility] Body height 2025-04-20 11:24:00 177.8 cm [facility] Body weight 2025-04-20 11:24:00 90.719 kg [facility] BMI 2025-04-20 11:24:00 28.70 kg/m2 [facility] Heart rate 2025-04-13 08:16:43 55 /min [facility] [place] [facility] Respiratory rate 2025-04-13 08:16:43 18 /min [facility] Oxygen saturation in Arterial blood by Pulse oximetry 2025-04-13 08:16:43 98 /min [facility] Systolic blood pressure 2025-04-13 08:16:39 108 mm[Hg] [facility] Diastolic blood pressure 2025-04-13 08:16:39 76 mm[Hg] [facility] Body temperature 2025-04-13 08:16:[address] [facility] Body height 2025-04-10 12:00:00 180.3 cm [facility] [place] [facility] Body weight 2025-04-10 12:00:00 90.719 kg [facility] [place] [facility] BMI 2025-04-10 12:00:00 27.89 kg/m2 [facility] Heart rate 2025-04-13 08:16:43 55 /min [facility] [place] [facility] Respiratory rate 2025-04-13 08:16:43 18 /min [facility] Oxygen saturation in Arterial blood by Pulse oximetry 2025-04-13 08:16:43 98 /min [facility] Systolic blood pressure 2025-04-13 08:16:39 108 mm[Hg] [facility] Diastolic blood pressure 2025-04-13 08:16:39 76 mm[Hg] [facility] Body temperature 2025-04-13 08:16:18 37 Ginny [facility] Body height 2025-04-10 12:00:00 180.3 cm [facility] Body weight 2025-04-10 12:00:00 90.719 kg [facility] BMI 2025-04-10 12:00:00 27.89 kg/m2 [facility] [place] [facility] Systolic blood pressure 2025-04-04 10:30:00 176 mm[Hg] [facility] Diastolic blood pressure 2025-04-04 10:30:00 92 mm[Hg] Henny Callahan [facility] Heart rate 2025-04-04 10:30:00 63 /min [facility] [place] [facility] Respiratory rate 2025-04-04 10:30:00 16 /min [facility] Oxygen saturation in Arterial blood by Pulse oximetry 2025-04-04 10:30:00 100 /min [facility] Body temperature 2025-04-04 08:57:00 36.78 Ginny [facility] Body height 2025-04-04 07:42:00 177.8 cm Nathaniel danyl [facility] Body weight 2025-04-04 07:42:00 90.719 kg [facility] BMI 2025-04-04 07:42:00 28.70 kg/m2 [facility] [place] [facility] Systolic blood pressure 2025-04-04 10:30:00 176 mm[Hg] Henny Callahan [facility] Diastolic blood pressure 2025-04-04 10:30:00 92 mm[Hg] [facility] Heart rate 2025-04-04 10:30:00 63 /min [facility] [place] [facility] Respiratory rate 2025-04-04 10:30:00 16 /min [facility] Oxygen saturation in Arterial blood by Pulse oximetry 2025-04-04 10:30:00 100 /min [facility] Body temperature 2025-04-04 08:57:00 36.78 Ginny [facility] Body height 2025-04-04 07:42:00 177.8 cm [facility] [place] [facility] Body weight 2025-04-04 07:42:00 90.719 kg [facility] BMI 2025-04-04 07:42:00 28.70 kg/m2 [facility] Systolic blood pressure 2024-12-28 13:00:00 172 mm[Hg] [place] [facility] Diastolic blood pressure 2024-12-28 13:00:00 90 mm[Hg] [place] [facility] Heart rate 2024-12-28 13:00:00 66 /min [facility] Respiratory rate 2024-12-28 13:00:00 13 /min [facility] Oxygen saturation in Arterial blood by Pulse oximetry 2024-12-28 13:00:00 96 /min [facility] Body temperature 2024-12-28 12:23:00 36.83 Ginny [facility] Body height 2024-12-28 12:23:00 177.8 cm [facility] Body weight 2024-12-28 12:23:00 90.719 kg [facility] BMI 2024-12-28 12:23:00 28.70 kg/m2 [facility] Systolic blood pressure 2024-12-21 17:18:00 130 mm[Hg] [facility] Diastolic blood pressure 2024-12-21 17:18:00 81 mm[Hg] [facility] Heart rate 2024-12-21 17:18:00 81 /min [facility] Body temperature 2024-12-21 17:18:00 36.61 Ginny [facility] Respiratory rate 2024-12-21 17:18:00 19 /min [facility] Body height 2024-12-21 17:18:00 177.8 cm [facility] Body weight 2024-12-21 17:18:00 81.647 kg [facility] BMI 2024-12-21 17:18:00 25.83 kg/m2 [facility] Oxygen saturation in Arterial blood by Pulse oximetry 2024-12-21 17:18:00 100 /min [facility] Systolic blood pressure 2024-08-25 16:38:00 116 mm[Hg] [facility] Diastolic blood pressure 2024-08-25 16:38:00 66 mm[Hg] [facility] Heart rate 2024-08-25 16:38:00 67 /min [facility] Body temperature 2024-08-25 16:38:00 36.11 Ginny [facility] Respiratory rate 2024-08-25 16:38:00 13 /min [facility] Oxygen saturation in Arterial blood by Pulse oximetry 2024-08-25 16:38:00 99 /min [facility] Body weight 2024-08-25 09:00:00 90.6 kg [facility] BMI 2024-08-25 09:00:00 28.66 kg/m2 [facility] Body height 2024-08-23 20:19:00 177.8 cm [facility] Systolic blood pressure 2024-07-01 21:13:00 118 mm[Hg] [facility] Diastolic blood pressure 2024-07-01 21:13:00 65 mm[Hg] [facility] Heart rate 2024-07-01 21:13:00 63 /min [facility] Body temperature 2024-07-01 21:13:00 36.44 Ginny [facility] Respiratory rate 2024-07-01 21:13:00 16 /min [facility] Oxygen saturation in Arterial blood by Pulse oximetry 2024-07-01 21:13:00 99 /min [facility] Body weight 2024-07-01 08:26:00 89.994 kg [facility] BMI 2024-07-01 08:26:00 28.47 kg/m2 [facility] Body height 2024-06-23 21:39:00 177.8 cm [facility] Systolic blood pressure 2024-06-20 17:47:00 165 mm[Hg] [facility] Diastolic blood pressure 2024-06-20 17:47:00 83 mm[Hg] [facility] Heart rate 2024-06-20 17:47:00 81 /min [facility] Body temperature 2024-06-20 17:47:00 37 Ginny [facility] Respiratory rate 2024-06-20 17:47:00 16 /min [facility] Oxygen saturation in Arterial blood by Pulse oximetry 2024-06-20 17:47:00 99 /min [facility] Body height 2024-06-20 15:58:00 177.8 cm [facility] Body weight 2024-06-20 15:58:00 91.627 kg [facility] BMI 2024-06-20 15:58:00 28.98 kg/m2 [facility] Systolic blood pressure 2024-06-19 21:30:00 138 mm[Hg] [facility] Diastolic blood pressure 2024-06-19 21:30:00 71 mm[Hg] [facility] Heart rate 2024-06-19 21:30:00 78 /min [facility] Respiratory rate 2024-06-19 21:30:00 17 /min [facility] Oxygen saturation in Arterial blood by Pulse oximetry 2024-06-19 21:30:00 95 /min [facility] Body temperature 2024-06-19 17:34:00 36.72 Ginny [facility] Body height 2024-06-19 17:34:00 177.8 cm [facility] Body weight 2024-06-19 17:34:00 99.791 kg [facility] BMI 2024-06-19 17:34:00 31.57 kg/m2 [facility] Heart rate 2024-06-17 00:43:00 70 /min [facility] Respiratory rate 2024-06-17 00:43:00 17 /min [facility] Oxygen saturation in Arterial blood by Pulse oximetry 2024-06-17 00:43:00 97 /min [facility] Systolic blood pressure 2024-06-17 00:42:00 132 mm[Hg] [facility] Diastolic blood pressure 2024-06-17 00:42:00 76 mm[Hg] [facility] Body temperature 2024-06-17 00:42:00 36.44 Ginny [facility] Body height 2024-06-16 23:12:00 177.8 cm [facility] Body weight 2024-06-16 23:12:00 99.791 kg [facility] BMI 2024-06-16 23:12:00 31.57 kg/m2 [facility] Heart rate 2024-06-16 04:09:00 62 /min [facility] Body temperature 2024-06-16 04:09:00 36.83 Ginny [facility] Respiratory rate 2024-06-16 04:09:00 13 /min [facility] Oxygen saturation in Arterial blood by Pulse oximetry 2024-06-16 04:09:00 97 /min [facility] Systolic blood pressure 2024-06-16 04:00:00 157 mm[Hg] [facility] Diastolic blood pressure 2024-06-16 04:00:00 75 mm[Hg] [facility] Body height 2024-06-15 23:01:00 177.8 cm [facility] Body weight 2024-06-15 23:01:00 99.791 kg [facility] BMI 2024-06-15 23:01:00 31.57 kg/m2 [facility] Heart rate 2024-04-06 10:11:00 72 /min [facility] Body temperature 2024-04-06 10:11:00 36.89 Ginny [facility] Respiratory rate 2024-04-06 10:11:00 16 /min [facility] Oxygen saturation in Arterial blood by Pulse oximetry 2024-04-06 10:11:00 99 /min [facility] Systolic blood pressure 2024-04-06 10:00:00 130 mm[Hg] [facility] Diastolic blood pressure 2024-04-06 10:00:00 74 mm[Hg] [facility] Body height 2024-04-06 06:52:00 177.8 cm [facility] Body weight 2024-04-06 06:52:00 99.791 kg [facility] BMI 2024-04-06 06:52:00 31.57 kg/m2 [facility] Systolic blood pressure 2024-04-03 21:45:00 164 mm[Hg] [facility] Diastolic blood pressure 2024-04-03 21:45:00 85 mm[Hg] [facility] Heart rate 2024-04-03 21:45:00 88 /min [facility] Respiratory rate 2024-04-03 21:45:00 16 /min [facility] Oxygen saturation in Arterial blood by Pulse oximetry 2024-04-03 21:45:00 96 /min [facility] Body temperature 2024-04-03 14:41:00 36.5 Ginny [facility] Systolic blood pressure 2024-04-01 00:04:00 132 mm[Hg] [facility] Diastolic blood pressure 2024-04-01 00:04:00 73 mm[Hg] [facility] Heart rate 2024-04-01 00:04:00 76 /min [facility] Respiratory rate 2024-04-01 00:04:00 18 /min [facility] Oxygen saturation in Arterial blood by Pulse oximetry 2024-04-01 00:04:00 98 /min [facility] Body height 2024-03-31 23:15:00 177.8 cm [facility] Body temperature 2024-03-31 17:35:00 36.72 Ginny [facility] Body weight 2024-03-31 17:35:00 99.791 kg [facility] BMI 2024-03-31 17:35:00 31.57 kg/m2 [facility] Systolic blood pressure 2024-03-29 21:38:00 135 mm[Hg] [facility] Diastolic blood pressure 2024-03-29 21:38:00 74 mm[Hg] [facility] Heart rate 2024-03-29 21:38:00 66 /min [facility] Body temperature 2024-03-29 21:38:00 36.72 Ginny [facility] Respiratory rate 2024-03-29 21:38:00 18 /min [facility] Oxygen saturation in Arterial blood by Pulse oximetry 2024-03-29 21:38:00 99 /min [facility] Body weight 2024-03-29 19:47:00 99.791 kg [facility] BMI 2024-03-29 19:47:00 31.57 kg/m2 [facility] Systolic blood pressure 2024-03-22 21:30:00 175 mm[Hg] [facility] Diastolic blood pressure 2024-03-22 21:30:00 90 mm[Hg] [facility] Heart rate 2024-03-22 21:30:00 84 /min [facility] Respiratory rate 2024-03-22 21:30:00 16 /min [facility] Oxygen saturation in Arterial blood by Pulse oximetry 2024-03-22 21:30:00 100 /min [facility] Body temperature 2024-03-22 14:55:00 36.94 Ginny [facility] Systolic blood pressure 2024-03-12 04:00:00 155 mm[Hg] [facility] Diastolic blood pressure 2024-03-12 04:00:00 103 mm[Hg] [facility] Heart rate 2024-03-12 04:00:00 92 /min [facility] Respiratory rate 2024-03-12 04:00:00 18 /min [facility] Oxygen saturation in Arterial blood by Pulse oximetry 2024-03-12 04:00:00 98 /min [facility] Body temperature 2024-03-12 01:17:00 37.33 Ginny [facility] Body height 2024-03-12 01:17:00 177.8 cm [facility] Body weight 2024-03-12 01:17:00 99.791 kg [facility] BMI 2024-03-12 01:17:00 31.57 kg/m2 [facility] Systolic blood pressure 2024-02-10 19:50:00 158 mm[Hg] [facility] Diastolic blood pressure 2024-02-10 19:50:00 87 mm[Hg] [facility] Heart rate 2024-02-10 19:50:00 86 /min [facility] Respiratory rate 2024-02-10 19:50:00 18 /min [facility] Oxygen saturation in Arterial blood by Pulse oximetry 2024-02-10 19:50:00 96 /min [facility] Body temperature 2024-02-10 16:57:00 36.72 Ginny [facility] Body height 2024-02-10 16:57:00 177.8 cm [facility] Body weight 2024-02-10 16:57:00 99.791 kg [facility] BMI 2024-02-10 16:57:00 31.57 kg/m2 [facility] Systolic blood pressure 2024-02-09 22:00:00 143 mm[Hg] [facility] Diastolic blood pressure 2024-02-09 22:00:00 76 mm[Hg] [facility] Heart rate 2024-02-09 22:00:00 83 /min [facility] Respiratory rate 2024-02-09 22:00:00 16 /min [facility] Oxygen saturation in Arterial blood by Pulse oximetry 2024-02-09 22:00:00 100 /min [facility] Body temperature 2024-02-09 19:02:00 35.94 Ginny [facility] Body height 2024-02-09 19:02:00 177.8 cm [facility] Body weight 2024-02-09 19:02:00 99.791 kg [facility] BMI 2024-02-09 19:02:00 31.57 kg/m2 [facility] Systolic blood pressure 2024-02-06 14:26:00 163 mm[Hg] [facility] Diastolic blood pressure 2024-02-06 14:26:00 77 mm[Hg] [facility] Heart rate 2024-02-06 14:26:00 71 /min [facility] Body temperature 2024-02-06 14:26:00 36.61 Ginny [facility] Respiratory rate 2024-02-06 14:26:00 16 /min [facility] Body height 2024-02-06 14:26:00 165.1 cm [facility] Body weight 2024-02-06 14:26:00 99.791 kg [facility] BMI 2024-02-06 14:26:00 36.61 kg/m2 [facility] Oxygen saturation in Arterial blood by Pulse oximetry 2024-02-06 14:26:00 98 /min [facility] Systolic blood pressure 2024-01-30 16:05:00 150 mm[Hg] [facility] Diastolic blood pressure 2024-01-30 16:05:00 89 mm[Hg] [facility] Heart rate 2024-01-30 16:05:00 71 /min [facility] Body temperature 2024-01-30 16:05:00 37 Ginny [facility] Respiratory rate 2024-01-30 16:05:00 18 /min [facility] Body height 2024-01-30 16:05:00 177.8 cm [facility] Body weight 2024-01-30 16:05:00 100.699 kg [facility] BMI 2024-01-30 16:05:00 31.85 kg/m2 [facility] Oxygen saturation in Arterial blood by Pulse oximetry 2024-01-30 16:05:00 99 /min [facility] Systolic blood pressure 2024-01-15 03:18:00 150 mm[Hg] [facility] Diastolic blood pressure 2024-01-15 03:18:00 75 mm[Hg] [facility] Heart rate 2024-01-15 03:18:00 79 /min [facility] Body temperature 2024-01-15 03:18:00 36.5 Ginny [facility] Respiratory rate 2024-01-15 03:18:00 18 /min [facility] Body height 2024-01-15 03:18:00 177.8 cm [facility] Body weight 2024-01-15 03:18:00 99.791 kg [facility] BMI 2024-01-15 03:18:00 31.57 kg/m2 [facility] Oxygen saturation in Arterial blood by Pulse oximetry 2024-01-15 03:18:00 98 /min [facility] Systolic blood pressure 2024-01-05 12:37:00 161 mm[Hg] [facility] Diastolic blood pressure 2024-01-05 12:37:00 76 mm[Hg] [facility] Heart rate 2024-01-05 12:37:00 76 /min [facility] Body temperature 2024-01-05 12:37:00 36.89 Ginny [facility] Respiratory rate 2024-01-05 12:37:00 18 /min [facility] Body height 2024-01-05 12:37:00 177.8 cm [facility] Body weight 2024-01-05 12:37:00 99.791 kg [facility] BMI 2024-01-05 12:37:00 31.57 kg/m2 [facility] Oxygen saturation in Arterial blood by Pulse oximetry 2024-01-05 12:37:00 96 /min [facility] Systolic blood pressure 2021-07-10 22:35:00 173 mm[Hg] [facility] Diastolic blood pressure 2021-07-10 22:35:00 71 mm[Hg] [facility] Heart rate 2021-07-10 22:35:00 50 /min [facility] Body height 2021-07-10 22:35:00 177.8 cm [facility] Body weight 2021-07-10 22:35:00 114.306 kg [facility] BMI 2021-07-10 22:35:00 36.16 kg/m2 [facility] Oxygen saturation in Arterial blood by Pulse oximetry 2021-07-10 22:35:00 99 /min [facility] Systolic blood pressure 2021-07-10 15:12:00 173 mm[Hg] [facility] Diastolic blood pressure 2021-07-10 15:12:00 71 mm[Hg] [facility] Heart rate 2021-07-10 15:10:00 50 /min [facility] Body height 2021-07-10 15:10:00 177.8 cm [facility] Body weight 2021-07-10 15:10:00 114.306 kg [facility] BMI 2021-07-10 15:10:00 36.16 kg/m2 [facility] Oxygen saturation in Arterial blood by Pulse oximetry 2021-07-10 15:10:00 99 /min [facility] Systolic blood pressure 2021-05-20 23:06:00 130 mm[Hg] [facility] Diastolic blood pressure 2021-05-20 23:06:00 76 mm[Hg] [facility] Heart rate 2021-05-20 23:05:00 67 /min [facility] Body temperature 2021-05-20 23:05:00 36.33 Ginny [facility] Respiratory rate 2021-05-20 23:05:00 18 /min [facility] Body height 2021-05-20 23:05:00 177.8 [facility] 2021-05-20 23:05:00 112.583 kg [facility] BMI 2021-05-20 23:05:00 35.61 kg/m2 [facility] Oxygen saturation in Arterial blood by Pulse oximetry 2021-05-20 23:05:00 97 /min [facility] Systolic blood pressure 2021-02-14 21:09:00 153 mm[Hg] [facility] Diastolic blood pressure 2021-02-14 21:09:00 76 mm[Hg] [facility] Heart rate 2021-02-14 21:09:00 58 /min [facility] Body temperature 2021-02-14 21:09:00 36.72 Ginny [facility] Respiratory rate 2021-02-14 21:09:00 18 /min [facility] Body weight 2021-02-14 21:09:00 115.667 kg [facility] BMI 2021-02-14 21:09:00 35.57 kg/m2 [facility] Oxygen saturation in Arterial blood by Pulse oximetry 2021-02-14 21:09:00 97 /min [facility] Systolic blood pressure 2020-04-12 14:51:00 126 mm[Hg] [facility] Diastolic blood pressure 2020-04-12 14:51:00 76 mm[Hg] [facility] Heart rate 2020-04-12 14:51:00 58 /min [facility] Body temperature 2020-04-12 14:51:00 36.72 Ginny [facility] Respiratory rate 2020-04-12 14:51:00 18 /min [facility] Body height 2020-04-12 14:51:00 180.3 cm [facility] Body weight 2020-04-12 14:51:00 113.399 kg [facility] BMI 2020-04-12 14:51:00 34.87 kg/m2 [facility] Oxygen saturation in Arterial blood by Pulse oximetry 2020-04-12 14:51:00 98 /min [facility] Systolic blood pressure 2020-03-12 13:30:00 115 mm[Hg] [facility] Diastolic blood pressure 2020-03-12 13:30:00 81 mm[Hg] [facility] Heart rate 2020-03-12 13:30:00 51 /min [facility] Respiratory rate 2020-03-12 13:30:00 20 /min [facility] Oxygen saturation in Arterial blood by Pulse oximetry 2020-03-12 13:30:00 97 /min [facility] Body temperature 2020-03-12 12:37:00 36.22 Ginny [facility] Body weight 2020-03-12 12:37:00 111.131 kg [facility] BMI 2020-03-12 12:37:00 34.17 kg/m2 [facility] Systolic blood pressure 2020-01-18 13:42:00 136 mm[Hg] [facility] Diastolic blood pressure 2020-01-18 13:42:00 73 mm[Hg] [facility] Heart rate 2020-01-18 13:42:00 52 /min [facility] Body temperature 2020-01-18 13:42:00 36.56 Ginny [facility] Respiratory rate 2020-01-18 13:42:00 18 /min [facility] Body height 2020-01-18 13:42:00 180.3 cm [facility] Body weight 2020-01-18 13:42:00 113.309 kg [facility] BMI 2020-01-18 13:42:00 34.84 kg/m2 [facility] Oxygen saturation in Arterial blood by Pulse oximetry 2020-01-18 13:42:00 96 /min [facility] Systolic blood pressure 2019-12-30 17:24:00 154 mm[Hg] [facility] Diastolic blood pressure 2019-12-30 17:24:00 79 mm[Hg] [facility] Heart rate 2019-12-30 17:24:00 60 /min [facility] Respiratory rate 2019-12-30 17:24:00 16 /min [facility] Oxygen saturation in Arterial blood by Pulse oximetry 2019-12-30 17:24:00 96 /min [facility] Body temperature 2019-12-30 16:55:00 36.39 Ginny [facility] Body height 2019-12-26 22:40:00 180.3 cm [facility] Body weight 2019-12-26 22:40:00 116.121 kg [facility] BMI 2019-12-26 22:40:00 35.72 kg/m2 [facility] Systolic blood pressure 2019-12-19 14:13:00 135 mm[Hg] [facility] Diastolic blood pressure 2019-12-19 14:13:00 72 mm[Hg] [facility] Heart rate 2019-12-19 14:11:00 56 /min [facility] Respiratory rate 2019-12-19 14:11:00 19 /min [facility] Body height 2019-12-19 14:11:00 180.3 cm [facility] Body weight 2019-12-19 14:11:00 117.935 kg [facility] BMI 2019-12-19 14:11:00 36.26 kg/m2 [facility] Oxygen saturation in Arterial blood by Pulse oximetry 2019-12-19 14:11:00 96 /min [facility] Systolic blood pressure 2024-06-28 16:55:00 117 mm[Hg] [facility] Diastolic blood pressure 2024-06-28 16:55:00 57 mm[Hg] [facility] Heart rate 2024-06-28 16:55:00 65 /min [facility] Body temperature 2024-06-28 16:55:00 36.5 Ginny [facility] Respiratory rate 2024-06-28 16:55:00 18 /min [facility] Oxygen saturation in Arterial blood by Pulse oximetry 2024-06-28 16:55:00 98 /min [place] [facility] Body weight 2024-06-28 09:42:00 89.495 kg [facility] BMI 2024-06-28 09:42:00 28.31 kg/m2 [facility] Body height 2024-06-23 21:39:00 177.8 cm [facility] Procedures Procedure Date / Time Performed Performing Clinician Source POCT GLUCOSE (AUTOMATED) 2025-05-30 02:15:00 Bruce Ricks [facility] POCT GLUCOSE (AUTOMATED) 2025-05-29 22:46:00 Edy Vigil [facility] POCT GLUCOSE (AUTOMATED) 2025-05-29 18:27:00 Edy Vigil [facility] POCT GLUCOSE (AUTOMATED) 2025-05-29 12:37:00 Hernandez Mcgowan [facility] URINALYSIS 2025-05-29 04:21:00 [facility] URINE CULTURE 2025-05-29 04:21:00 Ramón Roblero [facility] CT HEAD WO CONTRAST 2025-05-29 01:19:00 Alberto Roblero [facility] XR CHEST 1 VW 2025-05-29 00:31:41 Ramón Roblero [facility] TROPONIN I 2025-05-29 00:00:00 [facility] COMP. METABOLIC PANEL (10093) 2025-05-29 00:00:00 Ramón Roblero [facility] CBC WITH DIFF 2025-05-29 00:00:00 Ramón Roblero [facility] N-TERMINAL PRO-BNP 2025-05-29 00:00:00 Ramón Roblero [facility] POCT GLUCOSE (AUTOMATED) 2025-04-28 21:45:00 Lizet Garcia [facility] POCT GLUCOSE (AUTOMATED) 2025-04-28 17:25:00 [facility] 2025-04-28 16:24:00 Lizet Garcia [facility] POCT GLUCOSE (AUTOMATED) 2025-04-28 12:49:00 Lizet Garcia [facility] POCT GLUCOSE (AUTOMATED) 2025-04-28 09:58:00 Lizet Garcia [facility] POCT GLUCOSE (AUTOMATED) 2025-04-28 05:41:00 Lizet Garcia [facility] POCT GLUCOSE (AUTOMATED) 2025-04-28 01:36:00 Lizet Garcia [facility] XR CHEST 1 VW 2025-04-28 01:20:04 Raj Garcia [facility] POCT GLUCOSE (AUTOMATED) 2025-04-27 21:37:00 Lizet Garcia [facility] POCT GLUCOSE (AUTOMATED) 2025-04-27 16:39:00 Lizet Garcia [facility] POCT GLUCOSE (AUTOMATED) 2025-04-27 12:55:00 Lizet Garcia [facility] POCT GLUCOSE (AUTOMATED) 2025-04-27 08:57:00 Lizet Garcia [facility] MAGNESIUM 2025-04-27 07:41:00 Raj Garcia [facility] BASIC METABOLIC PANEL (NA, K, CL, CO2, GLUCOSE, BUN, CREATININE, CA) 2025-04-27 07:41:00 Raj Garcia [facility] CBC WITH DIFF 2025-04-27 07:41:00 Raj Garcia [facility] POCT GLUCOSE (AUTOMATED) 2025-04-27 04:20:00 Lizet Garcia [facility] POCT GLUCOSE (AUTOMATED) 2025-04-27 00:59:00 Lizet Garcia [facility] POCT GLUCOSE (AUTOMATED) 2025-04-26 21:34:00 Lizet Garcia [facility] EKG (SCANNED DOCUMENTS) 2025-04-26 20:19:58 Doct or Unassigned, [place] [facility] POCT GLUCOSE (AUTOMATED) 2025-04-26 16:52:00 Lizet Garcia [facility] POCT GLUCOSE (AUTOMATED) 2025-04-26 12:54:00 Lizet Garcia [facility] COMP. METABOLIC PANEL (41895) 2025-04-26 08:26:00 José Aparicio [facility] CBC WITH DIFF 2025-04-26 08:26:00 José Aparicio [facility] POCT GLUCOSE (AUTOMATED) 2025-04-26 08:08:00 Lizet Garcia [facility] MRSA / MSSA SCREEN BY PCRHAILY 2025-04-26 04:17:00 Raj Garcia [facility] POCT GLUCOSE (AUTOMATED) 2025-04-26 03:50:00 Lizet Garcia [facility] POCT GLUCOSE (AUTOMATED) 2025-04-26 03:05:00 [facility] POCT GLUCOSE (AUTOMATED) 2025-04-26 01:40:00 Lizet Garcia [facility] POCT GLUCOSE (AUTOMATED) 2025-04-26 00:43:00 Lizet Fernandez [facility] POCT GLUCOSE (AUTOMATED) 2025-04-26 00:08:00 Lizet Fernandez [facility] HB ECG ROUTINE & RHYTHM STRIP 2025-04-25 23:42:23 Chelle Fernandez [facility] CT CERVICAL SPINE WO CONTRAST 2025-04-25 23:33:30 Chelle Fernandez [facility] CT HEAD WO CONTRAST 2025-04-25 23:33:30 Jaison Fernandez [facility] CREATINE KINASE 2025-04-25 23:06:00 [facility] 2025-04-25 23:06:00 Chelle Fernandez [facility] MAGNESIUM 2025-04-25 23:06:00 Chelle Fernandez [facility] TROPONIN I 2025-04-25 23:06:00 Chelle Fernandez [facility] COMP. METABOLIC PANEL ([id number]) 2025-04-25 23:06:00 Chelle Fernandez [facility] SALICYLATE 2025-04-25 23:06:00 Chelle Fernandez [facility] ETHANOL 2025-04-25 23:06:00 Chelle Fernandez [facility] CBC WITH DIFF 2025-04-25 23:06:00 Chelle Fernandez [facility] GLYCOSYLATED HEMOGLOBIN (A1C) 2025-04-25 23:06:00 Raj Garcia [facility] URINALYSIS 2025-04-25 23:06:00 Chelle Fern[facility] N-TERMINAL PRO-BNP 2025-04-25 23:06:00 Chelle Fernandez [facility] URINE DRUG (IMMUNOASSAY) - COMPREHENSIVE DRUG SCREEN W/O REFLEX 2025-04-25 23:06:00 Chelle Fernandez [facility] FENTANYL (IMMUNOASSAY) 2025-04-25 23:06:00 Ralf Fernandez [facility] CRITICAL CARE 2025-04-25 22:19:00 Chelle Fernandez [facility] CT CERVICAL SPINE WO CONTRAST 2025-04-20 11:58:00 Wood Cornejo [facility] CT HEAD WO CONTRAST 2025-04-20 11:58:00 Wood Cornejo [facility] EKG-12 LEAD 2025-04-20 11:48:45 Wood Cornejo [facility] POCT GLUCOSE (AUTOMATED) 2025-04-20 11:44:00 Ying Cornejo [facility] TROPONIN I 2025-04-20 11:42:00 Wood Cornejo [facility] COMP. METABOLIC PANEL ([id number]) 2025-04-20 11:42:00 Wood Cornejo [facility] CBC WITH DIFF 2025-04-20 11:42:00 Wood [facility] URINALYSIS 2025-04-20 11:42:00 Wood Cornejo [facility] CK Total (Creatinine Kinase) 2025-04-15 00:00:00 [facility] POC GLUCOSE UNSOLICITED RESULTS 2025-04-13 08:17:00 Jarrell Washington [facility] COMPLETE BLOOD COUNT 2025-04-13 07:05:00 Rana, Katharina As hraf [facility] AUTOMATED DIFFERENTIAL 2025-04-13 07:05:00 Rana, Katharina Paola [facility] BASIC METABOLIC PANEL 2025-04-13 07:05:00 Rana, Katharina A shraf [facility] CREATINE KINASE (CK TOTAL) 2025-04-13 07:05:00 RanaJulio Cesar sra [facility] COMPLETE BLOOD COUNT W/DIFF AND PLATELET 2025-04-13 07:05:00 Rana, Katharinara Smithf [facility] POC GLUCOSE UNSOLICITED RESULTS 2025-04-12 17:33:00 Rana, Katharina Paola [facility] POC GLUCOSE UNSOLICITED RESULTS 2025-04-12 14:32:00 Rana, Katharinara Campbellraf [facility] POC GLUCOSE UNSOLICITED RESULTS 2025-04-12 08:00:00 Rana Katharinara Guevara [facility] COMPLETE BLOOD COUNT 2025-04-12 05:51:00 Iglehar t, [facility]ini [facility] DIFFERENTIAL 2025-04-12 05:51:00 Igleh art, Malini [facility] BASIC METABOLIC PANEL 2025-04-12 05:51:00 Igleha rt, Malini [facility] CREATINE KINASE (CK TOTAL) 2025-04-12 05:51:00 I Malini hilario [facility] COMPLETE BLOOD COUNT W/DIFF AND PLATELET 2025-04-12 05:51:00 Iglehart, Malini [facility] POC GLUCOSE UNSOLICITED RESULTS 2025-04-11 17:05:00 Rana, Katharinara Guevara [facility] COMPLETE BLOOD COUNT 2025-04-11 04:20:00 Iglehar t, Malini Stefanrguen [facility] AUTOMATED DIFFERENTIAL 2025-04-11 04:20:00 Igleh art, [facility] BASIC METABOLIC PANEL 2025-04-11 04:20:00 Igleha rt, Malini [facility] CREATINE KINASE (CK TOTAL) 2025-04-11 04:20:00 I glefabbyt, Malini [facility] COMPLETE BLOOD COUNT W/DIFF AND PLATELET 2025-04-11 04:20:00 Malini Stokes [facility] POC GLUCOSE UNSOLICITED RESULTS 2025-04-10 18:30:00 Chauhan, Mady Ang [facility] CORONAVIRUS (COVID-19) ERICK ICU/ISOLATION 2025-04-10 18:09:00 Chauhan, Mady Ang [facility] TROPONIN I HIGH SENSITIVITY CARESET (1ST HR) 2025-04-10 17:07:00 Chauhan, Mady Ang [facility] XR CHEST 1 VIEW 2025-04-10 16:53:04 Chauhan, Mady Ang Tn morial [facility] BLOOD CULTURE 2025-04-10 15:32:00 Chauhan, Mady Agn Nathaniel rial [facility] LACTIC ACID WITH 2 HOUR REFLEX 2025-04-10 15:11:00 Chauhan, Mady Ang [facility] COMPLETE BLOOD COUNT 2025-04-10 15:11:00 Chauhan, Mady Ang [facility] AUTOMATED DIFFERENTIAL 2025-04-10 15:11:00 Chauhan, Bryson Ang [facility] BASIC METABOLIC PANEL 2025-04-10 15:11:00 Chauhan, Johanna ang N [facility] HEPATIC FUNCTION PANEL 2025-04-10 15:11:00 Chauhan, Bryson barrientos N [facility] CREATINE KINASE (CK TOTAL) 2025-04-10 15:11:00 Chauhan, Mady Ang [facility] HEMOGLOBIN A1C 2025-04-10 15:11:00 [facility] COMPLETE BLOOD COUNT W/DIFF AND PLATELET 2025-04-10 15:11:00 Chauhan, Mady Ang [facility] PROCALCITONIN LEVEL 2025-04-10 15:11:00 Chauhan, Mady Ang [facility] TROPONIN I HIGH SENSITIVITY CARESET (BASELINE) 2025-04-10 15:10:00 Chauhan, Mady Ang [facility] TROPONIN I HIGH SENSITIVITY CARESET 2025-04-10 15:10:00 Chauhan, Mady Ang [facility] POC GLUCOSE UNSOLICITED RESULTS 2025-04-10 14:16:00 Chauhan, Mady Ang [facility] ECG 12-LEAD 2025-04-10 12:17:09 Rosio Vazquez [facility] COMPLETE BLOOD COUNT W/DIFF AND PLATELET 2025-04-04 08:59:00 Broderick Bedolla [facility] COMPLETE BLOOD COUNT 2025-04-04 08:59:00 Broderick Bedolla [facility] AUTOMATED DIFFERENTIAL 2025-04-04 08:59:00 Broderick Bedolla [facility] COMPREHENSIVE METABOLIC PANEL 2025-04-04 08:58:00 Broderick Bedolla [facility] POC GLUCOSE UNSOLICITED RESULTS 2025-04-04 07:44:00 Broderick Bedolla [facility] US lower extremity venous doppler bilateral 2025-04-04 00:00:00 [facility] POCT GLUCOSE (AUTOMATED) 2024-08-25 16:36:00 [facility] PANEL (NA, K, CL, CO2, GLUCOSE, BUN, CREATININE, CA) 2024-08-25 09:18:00 Braden Palacio [facility] CBC WITHOUT DIFF 2024-08-25 09:18:00 [facility] 2024-08-25 01:26:00 Lizet Garcia [facility] POCT GLUCOSE (AUTOMATED) 2024-08-24 23:31:00 Lizet Garcia [facility] POCT GLUCOSE (AUTOMATED) 2024-08-24 21:24:00 Lizet Garcia [facility] POCT GLUCOSE (AUTOMATED) 2024-08-24 19:28:00 Lizet Garcia [facility] POCT GLUCOSE (AUTOMATED) 2024-08-24 18:31:00 Lizet Garcia [facility] POCT GLUCOSE (AUTOMATED) 2024-08-24 17:43:00 Lizet Garcia [facility] POCT GLUCOSE (AUTOMATED) 2024-08-24 16:28:00 Lizet Garcia [facility] POCT GLUCOSE (AUTOMATED) 2024-08-24 15:24:00 Lizet Garcia [facility] POCT GLUCOSE (AUTOMATED) 2024-08-24 14:24:00 Lizet Garcia [facility] POCT GLUCOSE (AUTOMATED) 2024-08-24 13:31:00 Lizet Garcia [facility] POCT GLUCOSE (AUTOMATED) 2024-08-24 12:29:00 Lizet Garcia [facility] POCT GLUCOSE (AUTOMATED) 2024-08-24 11:31:00 Lizet Garcia [facility] POCT GLUCOSE (AUTOMATED) 2024-08-24 10:32:00 Lizet Garcia [facility] POCT GLUCOSE (AUTOMATED) 2024-08-24 09:20:00 Lizet Garcia [facility] BASIC METABOLIC PANEL (NA, K, CL, CO2, GLUCOSE, BUN, CREATININE, CA) 2024-08-24 09:10:00 Jayshree [facility] CBC WITH DIFF 2024-08-24 09:10:00 Jayshree [facility] N-TERMINAL PRO-BNP 2024-08-24 09:10:00 Jayshree [facility] POCT GLUCOSE (AUTOMATED) 2024-08-24 08:31:00 Lizet Garcia [facility] POCT GLUCOSE (AUTOMATED) 2024-08-24 07:40:00 Tru [facility] POCT GLUCOSE (AUTOMATED) 2024-08-24 06:34:00 Tru [facility] POCT GLUCOSE (AUTOMATED) 2024-08-24 05:18:00 Lizet Garcia [facility] POCT GLUCOSE (AUTOMATED) 2024-08-24 04:24:00 Tru [facility] POCT GLUCOSE (AUTOMATED) 2024-08-24 03:28:00 Tru [facility] POCT GLUCOSE (AUTOMATED) 2024-08-24 02:32:00 Tru [facility] POCT GLUCOSE (AUTOMATED) 2024-08-24 01:42:00 Lizet Garcia [facility] POCT GLUCOSE (AUTOMATED) 2024-08-24 00:25:00 Lizet Garcia [facility] POCT GLUCOSE (AUTOMATED) 2024-08-23 23:39:00 Lizet Garcia [facility] POCT GLUCOSE (AUTOMATED) 2024-08-23 23:17:00 Lizet Garcia [facility] POCT GLUCOSE (AUTOMATED) 2024-08-23 22:16:00 Lizet Garcia [facility] POCT GLUCOSE (AUTOMATED) 2024-08-23 21:23:00 Lizet Garcia [facility] MRSA / MSSA SCREEN BY HAILY GASTELUM 2024-08-23 20:57:00 aRj Garcia [facility] POCT GLUCOSE (AUTOMATED) 2024-08-23 20:17:00 Lizet Garcia [facility] POCT GLUCOSE (AUTOMATED) 2024-08-23 19:29:00 Lizet Garcia [facility] POCT GLUCOSE (AUTOMATED) 2024-08-23 16:59:00 Lizet Garcia [facility] POCT GLUCOSE(AGE >30DAYS) 2024-08-23 16:05:00 Raj Garcia [facility] POCT GLUCOSE(AGE >30DAYS) 2024-08-23 15:55:00 Singer [facility] POCT GLUCOSE (AUTOMATED) 2024-08-23 15:50:00 Willian Paul [facility] POCT GLUCOSE (AUTOMATED) 2024-08-23 14:57:00 Willian Paul [facility] POCT GLUCOSE (AUTOMATED) 2024-08-23 14:36:00 Willian Paul [facility] VBG+VCOOX+NA+K+GLU+CA2+ 2024-08-23 14:33:00 , Roma [facility] LACTIC ACID WHOLE BLOOD 2024-08-23 14:33:00 , Roma [facility] COMP. METABOLIC PANEL ([id number]) 2024-08-23 14:32:00 Singer [facility] CBC WITH DIFF 2024-08-23 14:32:00 Singer [facility] N-TERMINAL PRO-BNP 2024-08-23 14:32:00 Edionwe, [facility] POCT GLUCOSE (AUTOMATED) 2024-08-23 14:12:00 Doc teodora Unassigned, [place] [facility] POCT GLUCOSE (AUTOMATED) 2024-07-01 21:20:00 Lizet Garcia [facility] POCT GLUCOSE (AUTOMATED) 2024-07-01 17:39:00 Lizet Garcia [facility] POCT GLUCOSE (AUTOMATED) 2024-07-01 13:13:00 Lizet Garcia [facility] BASIC METABOLIC PANEL (NA, K, CL, CO2, GLUCOSE, BUN, CREATININE, CA) 2024-07-01 08:40:00 Nohemy Askew [facility] CBC WITH DIFF 2024-07-01 08:40:00 Nohemy Askew Kylah [facility] POCT GLUCOSE (AUTOMATED) 2024-07-01 00:47:00 Lizet Garcia [facility] POCT GLUCOSE (AUTOMATED) 2024-06-30 21:23:00 Lizet Garcia [facility] POCT GLUCOSE (AUTOMATED) 2024-06-30 16:14:00 Lizet Garcia [facility] POCT GLUCOSE (AUTOMATED) 2024-06-30 12:51:00 Lizet Garcia [facility] BASIC METABOLIC PANEL (NA, K, CL, CO2, GLUCOSE, BUN, CREATININE, CA) 2024-06-30 09:22:00 Jayshree [facility] CBC WITH DIFF 2024-06-30 09:22:00 Marguerite Martell [facility] POCT GLUCOSE (AUTOMATED) 2024-06-30 02:02:00 [facility] ([facility]ATED) 2024-06-29 21:11:00 Lizet Garcia [facility] POCT GLUCOSE (AUTOMATED) 2024-06-29 16:39:00 Lizet Garcia [facility] POCT GLUCOSE (AUTOMATED) 2024-06-29 12:39:00 Lizet Garcia [facility] BASIC METABOLIC PANEL (NA, K, CL, CO2, GLUCOSE, BUN, CREATININE, CA) 2024-06-29 08:24:00 Nohemy Askew [facility] CBC WITH DIFF 2024-06-29 08:24:00 Nohemy Askew [facility] POCT GLUCOSE (AUTOMATED) 2024-06-29 02:40:00 Lizet Garcia [facility] POCT GLUCOSE (AUTOMATED) 2024-06-28 22:49:00 [facility] POCT GLUCOSE (AUTOMATED) 2024-06-28 21:56:00 [facility] POCT GLUCOSE (AUTOMATED) 2024-06-28 16:57:00 Lizet Garcia [facility] POCT GLUCOSE (AUTOMATED) 2024-06-28 16:57:00 [facility] POCT GLUCOSE (AUTOMATED) 2024-06-28 13:02:00 Lizet Garcia [facility] POCT GLUCOSE (AUTOMATED) 2024-06-28 13:02:00 Lizet Garcia [facility] BASIC METABOLIC PANEL (NA, K, CL, CO2, GLUCOSE, BUN, CREATININE, CA) 2024-06-28 09:43:00 Jovanna Sandra [facility] MAGNESIUM 2024-06-28 09:43:00 Jovanna Sandra [facility] CBC WITH DIFF 2024-06-28 09:43:00 Jovanna Sandra [facility] VANCOMYCIN RANDOM LEVEL 2024-06-28 09:43:00 Diamond Marroquin [facility] MAGNESIUM 2024-06-28 09:43:00 Jovanna Sandra [facility] BASIC METABOLIC PANEL (NA, K, CL, CO2, GLUCOSE, BUN, CREATININE, CA) 2024-06-28 09:43:00 Jovanna Sandra [facility] VANCOMYCIN RANDOM LEVEL 2024-06-28 09:43:00 Diamond Marroquin [facility] CBC WITH DIFF 2024-06-28 09:43:00 Jovanna Sandra [facility] POCT GLUCOSE (AUTOMATED) 2024-06-28 05:07:00 [facility] POCT GLUCOSE (AUTOMATED) 2024-06-28 05:07:00 Lizet Garcia [facility] POCT GLUCOSE (AUTOMATED) 2024-06-28 02:10:00 Lizet Garcia [facility] POCT GLUCOSE (AUTOMATED) 2024-06-28 02:10:00 Lizet Garcia [facility] POCT GLUCOSE (AUTOMATED) 2024-06-27 21:59:00 Lizet Garcia [facility] POCT GLUCOSE (AUTOMATED) 2024-06-27 21:59:00 Lizet Garcia [facility] POCT GLUCOSE (AUTOMATED) 2024-06-27 19:47:00 Lizet Garcia [facility] POCT GLUCOSE (AUTOMATED) 2024-06-27 19:47:00 Lizet Garcia [facility] XR CHEST 1 VW 2024-06-27 19:02:32 Jovanna Sandra [facility] XR CHEST 1 VW 2024-06-27 19:02:32 Jovanna Sandra [facility] TRANSESOPHAGEAL ECHO (RAYMOND) COMPLETE W/ DOPPLER AND COLOR 2024-06-27 17:29:00 Richie [facility] TRANSESOPHAGEAL ECHO (RAYMOND) COMPLETE W/ DOPPLER AND COLOR 2024-06-27 17:29:00 Terra Quiroztosha [facility] POCT GLUCOSE (AUTOMATED) 2024-06-27 16:41:00 Lizet Garcia [facility] POCT GLUCOSE (AUTOMATED) 2024-06-27 16:41:00 Lizet Garcia [facility] POCT GLUCOSE (AUTOMATED) 2024-06-27 14:13:00 Lziet Garcia [facility] POCT GLUCOSE (AUTOMATED) 2024-06-27 14:13:00 Tru [facility] POCT GLUCOSE (AUTOMATED) 2024-06-27 13:26:00 Tru [facility] POCT GLUCOSE (AUTOMATED) 2024-06-27 13:26:00 Tru [facility] BASIC METABOLIC PANEL (NA, K, CL, CO2, GLUCOSE, BUN, CREATININE, CA) 2024-06-27 09:41:00 Sel[place], [facility] MAGNESIUM 2024-06-27 09:41:00 Jovanna Sandra [facility] CBC WITH DIFF 2024-06-27 09:41:00 Jovanna Sandra [facility] MAGNESIUM 2024-06-27 09:41:00 Jovanna Sandra [facility] BASIC METABOLIC PANEL (NA, K, CL, CO2, GLUCOSE, BUN, CREATININE, CA) 2024-06-27 09:41:00 Boaz [facility] CBC WITH DIFF 2024-06-27 09:41:00 [facility] 2024-06-27 01:37:00 Lizet Garcia [facility] POCT GLUCOSE (AUTOMATED) 2024-06-27 01:37:00 Lizet Garcia [facility] POCT GLUCOSE (AUTOMATED) 2024-06-26 21:58:00 Lizet Garcia [facility] POCT GLUCOSE (AUTOMATED) 2024-06-26 21:58:00 Lizet Garcia [facility] POCT GLUCOSE (AUTOMATED) 2024-06-26 17:25:00 Lizet Garcia [facility] POCT GLUCOSE (AUTOMATED) 2024-06-26 17:25:00 Lizet Garcia [facility] POCT GLUCOSE (AUTOMATED) 2024-06-26 13:17:00 Lizet Garcia [facility] POCT GLUCOSE (AUTOMATED) 2024-06-26 13:17:00 Lizet Garcia [facility] BASIC METABOLIC PANEL (NA, K, CL, CO2, GLUCOSE, BUN, CREATININE, CA) 2024-06-26 09:49:00 [facility] 2024-06-26 09:49:00 Jovanna Sandra [facility] CBC WITH DIFF 2024-06-26 09:49:00 [facility] 2024-06-26 09:49:00 Jovanna Sandra [facility] BASIC METABOLIC PANEL (NA, K, CL, CO2, GLUCOSE, BUN, CREATININE, CA) 2024-06-26 09:49:00 Jovanna Sandra [facility] CBC WITH DIFF 2024-06-26 09:49:00 Jovanna Sandra [facility] POCT GLUCOSE (AUTOMATED) 2024-06-26 02:29:00 Lizet Garcia [facility] POCT GLUCOSE (AUTOMATED) 2024-06-26 02:29:00 Lizet Garcia [facility] POCT GLUCOSE (AUTOMATED) 2024-06-25 21:45:00 Lizet Garcia [facility] POCT GLUCOSE (AUTOMATED) 2024-06-25 21:45:00 Lizet Garcia [facility] POCT GLUCOSE (AUTOMATED) 2024-06-25 16:54:00 Lizet Garcia [facility] POCT GLUCOSE (AUTOMATED) 2024-06-25 16:54:00 Lizet Garcia [facility] POCT GLUCOSE (AUTOMATED) 2024-06-25 13:20:00 Lizet Garcia [facility] POCT GLUCOSE (AUTOMATED) 2024-06-25 13:20:00 Lizet Garcia [facility] VANCOMYCIN RANDOM LEVEL 2024-06-25 09:59:00 Gary Garcia [facility] VANCOMYCIN RANDOM LEVEL 2024-06-25 09:59:00 Gary Garcia [facility] POCT GLUCOSE (AUTOMATED) 2024-06-25 00:57:00 Lizet Garcia [facility] POCT GLUCOSE (AUTOMATED) 2024-06-25 00:57:00 Lizet Garcia [facility] POCT GLUCOSE (AUTOMATED) 2024-06-24 22:07:00 Lizet Garcia [facility] POCT GLUCOSE (AUTOMATED) 2024-06-24 22:07:00 Lizet Garcia [facility] POCT GLUCOSE (AUTOMATED) 2024-06-24 17:08:00 Lizet Garcia [facility] POCT GLUCOSE (AUTOMATED) 2024-06-24 17:08:00 Lizet Garcia [facility] BLOOD CULTURE SCREEN 2024-06-24 16:27:00 Sybil Sandra [facility] BLOOD CULTURE SCREEN 2024-06-24 16:27:00 Sybil Sandra [facility] CAROTID DUPLEX BILATERAL - BY VASCULAR LAB 2024-06-24 13:42:48 Alina Edouard [facility] CAROTID DUPLEX BILATERAL - BY VASCULAR LAB 2024-06-24 13:42:48 Alina Edouard [facility] POCT GLUCOSE (AUTOMATED) 2024-06-24 13:25:00 Lizet Garcia [facility] POCT GLUCOSE (AUTOMATED) 2024-06-24 13:25:00 [facility] POCT GLUCOSE (AUTOMATED) 2024-06-24 00:52:00 Lizet Garcai [facility] POCT GLUCOSE (AUTOMATED) 2024-06-24 00:52:00 Lizet Garcia [facility] AMMONIA, PLASMA 2024-06-23 23:41:00 Raj Garcia [facility] AMMONIA, PLASMA 2024-06-23 23:41:00 Raj Garcia [facility] ACUTE CARE ARTERIAL BLOOD GAS 2024-06-23 22:43:00 Raj Garcia [facility] ACUTE CARE ARTERIAL BLOOD GAS 2024-06-23 22:43:00 Raj Garcia [facility] POCT GLUCOSE (AUTOMATED) 2024-06-23 22:03:00 Lizet Garcia [facility] POCT GLUCOSE (AUTOMATED) 2024-06-23 22:03:00 Lizet Garcia [facility] MAGNESIUM 2024-06-23 21:04:00 Raj Garcia [facility] TROPONIN I 2024-06-23 21:04:00 Alina Edouard [facility] LIPID PANEL ([id number])(TOTAL CHOLESTEROL, TRIGLYCERIDES, HDL) 2024-06-23 21:04:00 Alina Edouard [facility] MAGNESIUM 2024-06-23 21:04:00 Raj Garcia [facility] TROPONIN I 2024-06-23 21:04:00 EdouardAlina sánchez U [facility] LIPID PANEL ([id number])(TOTAL CHOLESTEROL, TRIGLYCERIDES, HDL) 2024-06-23 21:04:00 Alina Edouard [facility] TRANSTHORACIC ECHO (TTE) COMPLETE 2024-06-23 20:12:00 Raj Garcia [facility] TRANSTHORACIC ECHO (TTE) COMPLETE 2024-06-23 20:12:00 Raj Garcia [facility] CT HEAD WO CONTRAST 2024-06-23 17:47:00 Juno Hwang [facility] CT CERVICAL SPINE WO CONTRAST 2024-06-23 17:47:00 Juno Hwang [facility] CT CERVICAL SPINE WO CONTRAST 2024-06-23 17:47:00 Juno Hwang [facility] CT HEAD WO CONTRAST 2024-06-23 17:47:00 Juno Hwang [facility] CBC WITH DIFF 2024-06-23 17:07:00 Juno Hwang [facility] COMP. METABOLIC PANEL ([id number]) 2024-06-23 17:07:00 Juno Hwang [facility] TROPONIN I 2024-06-23 17:07:00 Juno Hwang [facility] N-TERMINAL PRO-BNP 2024-06-23 17:07:00 Juno Hwang [facility] URINALYSIS 2024-06-23 17:07:00 Juno Hwang [facility] PROTHROMBIN TIME / INR 2024-06-23 17:07:00 Juno Hwang [facility] ACTIVATED PARTIAL THRMPLAS NILDA 2024-06-23 17:07:00 Juno Hwang [facility] LACTIC ACID WHOLE BLOOD 2024-06-23 17:07:00 Juno Hwang [facility] GLYCOSYLATED HEMOGLOBIN (A1C) 2024-06-23 17:07:00 Raj Garcia [facility] TROPONIN I 2024-06-23 17:07:00 Juno Hwang [facility] COMP. METABOLIC PANEL ([id number]) 2024-06-23 17:07:00 Juno Hwang [facility] CBC WITH DIFF 2024-06-23 17:07:00 Juno Hwang [facility] GLYCOSYLATED HEMOGLOBIN (A1C) 2024-06-23 17:07:00 Raj Garcia [facility] PROTHROMBIN TIME / INR 2024-06-23 17:07:00 Juno Hwang [facility] ACTIVATED PARTIAL THRMPLAS NILDA 2024-06-23 17:07:00 Juno Hwang [facility] URINALYSIS 2024-06-23 17:07:00 Juno Hwang [facility] N-TERMINAL PRO-BNP 2024-06-23 17:07:00 Juno Hwang [facility] LACTIC ACID WHOLE BLOOD 2024-06-23 17:07:00 Juno Hwang [facility] POCT GLUCOSE (AUTOMATED) 2024-06-19 21:58:00 Juno Hwang [facility] POCT GLUCOSE (AUTOMATED) 2024-06-19 21:58:00 Juno Hwang [facility] POCT GLUCOSE (AUTOMATED) 2024-06-19 21:28:00 Juno Hwang [facility] POCT GLUCOSE (AUTOMATED) 2024-06-19 21:28:00 Juno Hwang [facility] XR CHEST 1 VW 2024-06-19 19:23:33 Juno Hwang [facility] XR CHEST 1 VW 2024-06-19 19:23:33 Juno Hwang [facility] LACTIC ACID WHOLE BLOOD 2024-06-19 19:13:00 Juno Hwang [facility] LACTIC ACID WHOLE BLOOD 2024-06-19 19:13:00 Juno Hwang [facility] URINALYSIS 2024-06-19 19:12:00 Juno Hwang [facility] URINALYSIS 2024-06-19 19:12:00 Juno Hwang [facility] URINE CULTURE 2024-06-19 19:12:00 Juno Hwang [facility] BLOOD CULTURE SCREEN 2024-06-19 19:09:00 Juno Hwang [facility] COMP. METABOLIC PANEL ([id number]) 2024-06-19 19:09:00 Juno Hwang [facility] CBC WITH DIFF 2024-06-19 19:09:00 Juno Hwang Carmen [facility] N-TERMINAL PRO-BNP 2024-06-19 19:09:00 Juno Hwang [facility] CBC WITH DIFF 2024-06-19 19:09:00 Juno Hwang [facility] COMP. METABOLIC PANEL ([id number]) 2024-06-19 19:09:00 Juno Hwang [facility] N-TERMINAL PRO-BNP 2024-06-19 19:09:00 Juno Hwang [facility] BLOOD CULTURE SCREEN 2024-06-19 19:09:00 Juno Hwang [facility] BLOOD CULTURE WORKUP 2024-06-19 19:09:00 Juno Hwang [facility] BLOOD CULTURE WORKUP 2024-06-19 19:09:00 Juno Hwang [facility] GRAM POSITIVE BLOOD PATHOGENS DNA PROBE-ANAEROBIC 2024-06-19 19:09:00 Juno Hwang [facility] CT HEAD WO CONTRAST 2024-06-17 00:27:39 Parvez Caldera [facility] CT HEAD WO CONTRAST 2024-06-17 00:27:39 Parvez Caldera [facility] DUPLEX VENOUS LEG RIGHT - BY VASCULAR LAB 2024-06-16 03:05:37 Dejon Green [facility] DUPLEX VENOUS LEG RIGHT - BY VASCULAR LAB 2024-06-16 03:05:37 Dejon Green [facility] COMP. METABOLIC PANEL ([id number]) 2024-06-16 00:15:00 Dejon Green [facility] CBC WITH DIFF 2024-06-16 00:15:00 Dejon Green [facility] D-DIMER 2024-06-16 00:15:00 [facility] 2024-06-16 00:15:00 Dejon Green [facility] CBC WITH DIFF 2024-06-16 00:15:00 [facility] COMP. METABOLIC PANEL ([id number]) 2024-06-16 00:15:00 Dejon Green [facility] LACTIC ACID WHOLE BLOOD 2024-06-16 00:15:00 Dejon Green [facility] D-DIMER 2024-06-16 00:15:00 Dejon Green [facility] CT HEAD WO CONTRAST 2024-06-15 23:47:08 Norma justus [facility] CT HEAD WO CONTRAST 2024-06-15 23:47:08 Norma [facility] POCT GLUCOSE (AUTOMATED) 2024-04-06 10:11:00 Minerva, [facility] POCT GLUCOSE (AUTOMATED) 2024-04-06 10:11:[address] [facility] POCT GLUCOSE (AUTOMATED) 2024-04-06 09:34:00 Minerva, [facility] POCT GLUCOSE (AUTOMATED) 2024-04-06 09:34:[address] [facility] POCT GLUCOSE (AUTOMATED) 2024-04-06 08:30:00 Minerva, [facility] POCT GLUCOSE (AUTOMATED) 2024-04-06 08:30:[address] [facility] POCT GLUCOSE (AUTOMATED) 2024-04-06 07:57:[address] [facility] POCT GLUCOSE (AUTOMATED) 2024-04-06 07:57:00 Imnerva, [facility] POCT GLUCOSE (AUTOMATED) 2024-04-06 07:34:[address] [facility] POCT GLUCOSE (AUTOMATED) 2024-04-06 07:34:00 Minerva, [facility] MAGNESIUM 2024-04-06 06:56:00 Minerva [facility] COMP. METABOLIC PANEL ([id number]) 2024-04-06 06:56:00 [facility] 2024-04-06 06:56:00 Mulugeta Palma [facility] URINALYSIS 2024-04-06 06:56:00 Minerva [facility] CBC WITH DIFF 2024-04-06 06:56:00 Mulugeta Palma [facility] COMP. METABOLIC PANEL ([id number]) 2024-04-06 06:56:00 [facility] 2024-04-06 06:56:00 Minerva [facility] URINALYSIS 2024-04-06 06:56:00 Minerva [facility] POCT GLUCOSE (AUTOMATED) 2024-04-06 06:44:[address] [facility] POCT GLUCOSE (AUTOMATED) 2024-04-06 06:44:[address] [facility] EKG-12 LEAD 2024-04-03 21:51:36 Danya [facility] EKG-12 LEAD 2024-04-03 21:51:36 Danya [facility] ACUTE CARE ARTERIAL BLOOD GAS 2024-04-03 19:07:00 Danya [facility] ACUTE CARE ARTERIAL BLOOD GAS 2024-04-03 19:07:00 Danya [facility] AMMONIA, PLASMA 2024-04-03 18:53:00 Ana Hagan [facility] AMMONIA, PLASMA 2024-04-03 18:53:00 Ana Hagan [facility] URINALYSIS 2024-04-03 17:52:00 Danya [facility] URINE DRUG (IMMUNOASSAY) - COMPREHENSIVE DRUG SCREEN W/O REFLEX 2024-04-03 17:52:00 Danya [facility] URINALYSIS 2024-04-03 17:52:00 Danya [facility] URINE DRUG (IMMUNOASSAY) - COMPREHENSIVE DRUG SCREEN W/O REFLEX 2024-04-03 17:52:00 Ana Hagan [facility] XR CHEST 1 VW 2024-04-03 16:27:00 Ana Hagan [facility] XR FOOT 3+ VW RIGHT 2024-04-03 16:27:00 Darwin Hagan [facility] XR CHEST 1 VW 2024-04-03 16:27:00 Ana Hagan [facility] XR FOOT 3+ VW RIGHT 2024-04-03 16:27:00 Darwin Hagan [facility] LACTIC ACID WHOLE BLOOD 2024-04-03 15:53:00 [facility] LACTIC ACID WHOLE BLOOD 2024-04-03 15:53:00 Ronnie Hagan [facility] PHOSPHORUS 2024-04-03 15:52:00 Danya [facility] CREATINE KINASE 2024-04-03 15:52:00 [facility] 2024-04-03 15:52:00 Danya [facility] TROPONIN I 2024-04-03 15:52:00 Danya [facility] COMP. METABOLIC PANEL ([id number]) 2024-04-03 15:52:00 Danya [facility] ETHANOL 2024-04-03 15:52:00 Danya [facility] CBC WITH DIFF 2024-04-03 15:52:00 Ana Hagan [facility] GALV ONLY - INFLUENZA A B RSV PCR 2024-04-03 15:52:00 Danya [facility] N-TERMINAL PRO-BNP 2024-04-03 15:52:00 Abhijit Hagan [facility] COVID-19 (ID NOW RAPID TESTING) 2024-04-03 15:52:00 Danya [facility] COVID-19 (ID NOW RAPID TESTING) 2024-04-03 15:52:00 Danya [facility] INFLUENZA A/B RSV COVID NAAT 2024-04-03 15:52:00 Danya [facility] CBC WITH DIFF 2024-04-03 15:52:00 Danya [facility] ETHANOL 2024-04-03 15:52:00 Danya [facility] COMP. METABOLIC PANEL ([id number]) 2024-04-03 15:52:00 Danya [facility] TROPONIN I 2024-04-03 15:52:00 Danya [facility] N-TERMINAL PRO-BNP 2024-04-03 15:52:00 Abhijit Hagan [facility] CREATINE KINASE 2024-04-03 15:52:00 [facility] 2024-04-03 15:52:00 Danya [facility] PHOSPHORUS 2024-04-03 15:52:00 Danya [facility] LAB ONLY COVID INTERPRETATION 2024-04-03 15:52:00 Danya [facility] POCT GLUCOSE(AGE >30DAYS) 2024-04-03 15:46:00 Danya [facility] POCT GLUCOSE(AGE >30DAYS) 2024-04-03 15:46:00 Danya [facility] POCT GLUCOSE (AUTOMATED) 2024-04-03 15:43:00 Danya [facility] POCT GLUCOSE (AUTOMATED) 2024-04-03 15:43:[address] [facility] [address] CERVICAL SPINE WO CONTRAST 2024-04-03 15:38:[address] [facility] [address] HEAD WO CONTRAST 2024-04-03 15:38:07 Darwin Hagan [facility] CT HEAD WO CONTRAST 2024-04-03 15:38:07 Darwin Hagan [facility] CT CERVICAL SPINE WO CONTRAST 2024-04-03 15:38:07 Dalmedo, [facility] POCT GLUCOSE (AUTOMATED) 2024-04-01 00:04:00 Racheal Tee [facility] POCT GLUCOSE (AUTOMATED) 2024-04-01 00:04:00 Racheal Tee [facility] POCT GLUCOSE (AUTOMATED) 2024-03-31 23:19:00 Racheal Tee [facility] POCT GLUCOSE (AUTOMATED) 2024-03-31 23:19:00 Racheal Tee [facility] COMP. METABOLIC PANEL ([id number]) 2024-03-31 19:37:00 Missael Tee [facility] CBC WITH DIFF 2024-03-31 19:37:00 Racheal Teeshua [facility] EXTRA TUBE LT. BLUE 2024-03-31 19:37:00 Racheal Teeshua [facility] CBC WITH DIFF 2024-03-31 19:37:00 Racheal Teeshua [facility] COMP. METABOLIC PANEL ([id number]) 2024-03-31 19:37:00 Missael Tee [facility] EXTRA TUBE LT. BLUE 2024-03-31 19:37:00 Racheal Teeshua [facility] CT CERVICAL SPINE WO CONTRAST 2024-03-31 19:14:18 Racheal Teeshua [facility] CT HEAD WO CONTRAST 2024-03-31 19:14:18 Racheal Teeshua [facility] CT HEAD WO CONTRAST 2024-03-31 19:14:18 Racheal Teeshua [facility] CT CERVICAL SPINE WO CONTRAST 2024-03-31 19:14:18 Missael Tee [facility] XR KNEE 3 VW RIGHT 2024-03-29 22:12:44 Levi Frank [facility] XR LUMBAR SPINE 2 VW 2024-03-29 22:12:44 Levi Frank [facility] XR KNEE 3 VW RIGHT 2024-03-29 22:12:44 Levi Frank [facility] EKG-12 LEAD 2024-03-22 21:31:10 Libby Fernandez [facility] URINALYSIS 2024-03-22 17:07:00 Libby Fernandez [facility] EXTRA TUBE URINE CULTURE 2024-03-22 17:07:00 Mateusz Gayle [facility] XR CHEST 2 VW 2024-03-22 16:13:07 Libby Fernandez [facility] CREATINE KINASE 2024-03-22 15:46:00 Libby Fernandez [facility] TROPONIN I 2024-03-22 15:46:00 Libby Fernandez [facility] HEPATIC FUNCTION PANEL ([id number]) (ALB,T.PRO,BILI T,BU/BC,ALT,AST,ALK PHOS) 2024-03-22 15:46:00 Libby Fernandez [facility] BASIC METABOLIC PANEL (NA, K, CL, CO2, GLUCOSE, BUN, CREATININE, CA) 2024-03-22 15:46:00 Libby Fernandez [facility] CBC WITH DIFF 2024-03-22 15:46:00 Libby Fernandez [facility] GLYCOSYLATED HEMOGLOBIN (A1C) 2024-03-22 15:46:00 Mateusz Gayle [facility] N-TERMINAL PRO-BNP 2024-03-22 15:46:00 Libby Martinez [facility] EXTRA TUBE LT. BLUE 2024-03-22 15:46:00 Mateusz Gayle [facility] POCT GLUCOSE (AUTOMATED) 2024-03-12 04:41:00 VeniceYoav harrell [facility] POCT GLUCOSE (AUTOMATED) 2024-03-12 03:45:00 VeniceYoav harrell [facility] POCT GLUCOSE (AUTOMATED) 2024-03-12 02:29:00 Yoav Millard [facility] CREATINE KINASE 2024-03-12 01:42:00 [facility] 2024-03-12 01:42:00 Micah Millard [facility] COMP. METABOLIC PANEL ([id number]) 2024-03-12 01:42:00 Micah Millard [facility] CBC WITH DIFF 2024-03-12 01:42:00 Micah Millard [facility] COMP. METABOLIC PANEL ([id number]) 2024-02-10 17:52:00 Riana Paul [facility] CBC WITH DIFF 2024-02-10 17:52:00 Riana Paul [facility] URINALYSIS 2024-02-09 21:03:00 Jose Roberto Ireland [facility] CT HEAD WO CONTRAST 2024-02-09 20:02:00 Jose Roberto Ireland [facility] URINALYSIS 2024-02-06 15:15:00 Sonia Muller [facility] XR LUMBAR SPINE 3 VW 2024-02-06 15:00:46 Rolly Muller [facility] CT ABDOMEN PELVIS WO CONTRAST 2024-01-30 18:58:58 Dejon Green [facility] COMP. METABOLIC PANEL ([id number]) 2024-01-30 16:35:00 Dejon Green [facility] CBC WITH DIFF 2024-01-30 16:35:00 Dejon Green [facility] CONSENT/REFUSAL FOR DIAGNOSIS AND TREATMENT 2024-01-15 03:41:26 Doctor Unassigned, [place] [facility] ASSIGNMENT OF BENEFITS 2024-01-15 03:35:20 Docto r Unassigned, [place] [facility] ASSIGNMENT OF BENEFITS 2021-05-20 22:59:18 Docto r Unassigned, [place] [facility] MICROALBUMIN URINE 2021-02-14 22:17:00 Joel Aranda [facility] CONSENT/REFUSAL FOR DIAGNOSIS AND TREATMENT 2021-02-14 21:51:32 Doctor Unassigned, [place] [facility] ASSIGNMENT OF BENEFITS 2021-02-14 21:50:52 Docto r Unassigned, [place] [facility] XR TIBIA FIBULA 2 VW RIGHT 2020-03-12 13:27:36 hCelle Fernandez [facility] XR LUMBAR SPINE 3 VW 2020-02-16 18:44:17 Basim Aranda [facility] ASSIGNMENT OF BENEFITS 2020-02-16 17:58:39 Docto r Unassigned, [place] [facility] COLONOSCOPY (ENDO) 2019-12-30 15:52:18 Joel Aranda [facility] [facility] COL[facility] (ENDO) 2019-12-30 15:52:18 Joel Aranda [facility] POCT GLUCOSE(AGE >30DAYS) 2019-12-30 13:50:[address] [facility] DAY SURGERY - ADC 2019-12-30 06:01:00 Doctor Ileana ssigned, [place] [facility] HCV ANTIBODY 2019-10-18 15:27:00 Tl Aranda [facility] POCT Glucose [facility] Phosphorus Level [facility] Magnesium Level [facility] Comprehensive Metabolic Panel [facility] Complete Blood Count (no diff) [facility] Blood culture, peripheral #2 [facility] Plan of Care Planned Activity Planned Date Details Comments Source Encounters Start Date/Time End Date/Time Encounter Type Admission Type Attending [facility] Facility Care Department Encounter ID Source 2025-04-04 08:03:54 Emergency HFD HFD [id number] [facility] ent 2025-05-31 00:00:00 2025-05-31 12:27:44 Transition of Care Martell Fallon Michele A [address] [address] 1.2.840.114 350.1.13.10 4.2.7.2.686 [id number] [facility] 2025-05-28 18:43:00 2025-05-30 11:35:00 Hospital Encounter X BRUCE RICKS [facility] ROSALIND [id number] [facility] 2025-05-11 15:41:00 2025-05-11 17:33:00 Emergency X JACKIE DIAZ SANDRA [facility] ERT [id number] [facility] 2025-05-01 00:00:00 2025-05-02 11:48:10 Transition of Care Martell Fallon Michele A [address] 1..840.114 350.1.13.10 4.2.7.2.686 [id number] [facility] 2025-04-25 17:25:00 2025-04-28 19:30:00 Hospital Encounter X RAJ GARCIA [facility] ROSALIND [id number] [facility] 2025-04-26 00:00:00 2025-04-27 02:04:23 Orders Only Doctor Unassigned, [place] Doctor Unassigned, [place] [facility] [place] 1.2840.114 350.1.13.10 4.2.7.2.686 [id number] [facility] 2025-04-20 06:29:00 2025-04-20 10:57:00 Emergency X MO POLLARD [facility] ERT [id number] [facility] 2025-04-10 13:54:00 2025-04-13 13:30:00 Inpatient Emergency [facility]RELL [facility] General Medicine [id number] 2025-04-10 13:54:00 2025-04-13 13:30:00 Hospital Encounter Oscar, Mady Stokes, Katharina Rodriguez [facility] 1.840.114 350.1.13.70 8.2.7.2.[id number] [facility] 2025-04-11 00:00:00 2025-04-11 15:10:12 Patient Outreach [place] [address] 1.2840.114 350.1.13.70 8.2.7.2.[id number] [facility] 2025-04-04 07:47:00 2025-04-04 13:20:00 Emergency Emergency BRODERICK BEDOLLA [facility] General Medicine [id number] [facility] 2025-04-04 07:47:00 2025-04-04 13:20:00 Emergency [facility] 1.2.840.114 350.1.13.70 8.2.7.2.686 [id number] Enmanuel mora [facility] 2025-04-04 00:00:00 2025-04-04 12:59:05 Referral Triage [facility] 90 1.2.840.114 350.1.13.70 8.2.7.2.686 [id number] Enmanuel [facility] 2025-04-04 00:00:00 2025-04-04 12:58:07 Patient Outreach [facility] 909 1.2.840.114 350.1.13.70 8.2.7.2.686 [id number] [facility] 2024-12-28 06:27:00 2024-12-28 07:41:00 Emergency X YARIMA, SHELBY PERALTARIDENICE, [facility] ERT [id number] [facility] 2024-12-28 06:27:00 2024-12-28 07:41:00 Emergency X YARIMA, SHELBY PERALTARIMA, [facility] ERT [id number] [facility] 2024-12-21 11:19:00 2024-12-21 12:25:00 Emergency X DONI MARK [facility] ERT [id number] [facility] 2024-12-21 11:19:00 2024-12-21 12:25:00 Emergency X DONI MARK [facility] ERT [id number] [facility] 2024-12-16 00:00:00 2024-12-16 15:54:57 Patient Outreach Rupa Conroy Irene C [place] 1.2840.114 350.1.13.10 4.2.7.2.686 [id number] [facility] 2024-07-21 00:00:00 2024-08-27 18:25:25 Patient Secure Msg Doctor Unassigned, [place] Doctor Unassigned, [place] [facility] [place] 1.20.114 350.1.13.10 4.2.7.2.686 [id number] [facility] 2024-08-26 00:00:00 2024-08-26 15:23:12 Transition of Care Martell Fallon Michele A [address] 1..114 350.1.13.10 4.2.7.2.686 [id number] [facility] 2024-08-23 09:12:00 2024-08-25 13:20:00 Outpatient X RAJ GARCIA [facility] ROSALIND [id number] [facility] 2024-08-23 09:12:00 2024-08-25 13:20:00 Emergency RAJ GRAYSON [facility] ROSALIND [id number] [facility] 2024-07-04 00:00:00 2024-07-04 11:05:06 Transition of Care Martell Fallon Michele A [place] [address] [address] 1.84.114 350.1.13.10 4.2.7.2.686 [id number] [facility] 2024-06-23 11:30:00 2024-07-01 17:41:00 Inpatient X BRADEN PALACIO [facility] ROSALIND [id number] [facility] 2024-06-23 11:30:00 2024-07-01 17:41:00 Hospital Encounter Juno Hwang David Oville, Jelani [facility] 1.2.114 350.1.13.10 4.2.7.2.686 [id number] [facility] 2024-06-27 12:11:00 2024-06-27 12:31:00 Anesthesia Event Poly Azar Resendiz 1.2.840.1 10198.1.1 3.104.2.7 .3.465627 .8 [id number] [facility] 2024-06-27 00:00:00 2024-06-27 00:00:00 Travel 1.2.840.1 60800.1.1 3.104.2.7 .3.775625 .8 1.2.840.114 350.1.13.10 4.2.7.3.698 084.8 [id number] [facility] 2024-06-23 00:00:00 2024-06-23 00:00:00 Travel 1.2.840.1 83340.1.1 3.104.2.7 .3.504520 .8 1.2.840.114 350.1.13.10 4.2.7.3.698 084.8 [id number] [facility] 2024-06-20 11:03:00 2024-06-20 12:50:00 Emergency X MULUGETA PALMA ANDRES [facility] ERT [id number] [facility] 2024-06-20 11:03:00 2024-06-20 12:50:00 Emergency X MULUGETA PALMA ANDRES [facility] ERT [id number] [facility] 2024-06-19 12:34:00 2024-06-19 18:05:00 Emergency X Juno HWANG K [facility] ERT [id number] [facility] 2024-06-19 12:34:00 2024-06-19 18:05:00 Emergency Juno Hwang 1.2.840.1 43211.1.1 3.104.2.7 .3.065022 .8 [id number] [facility] 2024-06-19 00:00:00 2024-06-19 00:00:00 Travel 1.2.840.1 79642.1.1 3.104.2.7 .3.277103 .8 1.2.840.114 350.1.13.10 4.2.7.3.698 084.8 [id number] [facility] 2024-06-16 18:07:00 2024-06-16 19:57:00 Emergency X PARVEZ CALDERA ERICCA [facility] ERT [id number] [facility] 2024-06-16 18:07:00 2024-06-16 19:57:00 Emergency Parvez Caldera D 1.2.840.1 66042.1.1 3.104.2.7 .3.448163 .8 [id number] [facility] 2024-06-15 17:52:00 2024-06-16 00:32:00 Emergency X DEJON GREEN [facility] ERT [id number] [facility] 2024-06-15 17:52:00 2024-06-16 00:32:00 Emergency Dejon Green 1.2.840.1 88750.1.1 3.104.2.7 .3.311091 .8 [id number] [facility] 2024-06-16 00:00:00 2024-06-16 00:00:00 Travel 1.2.840.1 94544.1.1 3.104.2.7 .3.940520 .8 1.2.840.114 350.1.13.10 4.2.7.3.698 084.8 [id number] [facility] 2024-06-15 00:00:00 2024-06-15 00:00:00 Travel 1.2.840.1 99031.1.1 3.104.2.7 .3.676422 .8 1.2.840.114 350.1.13.10 4.2.7.3.698 084.8 [id number] [facility] 2024-04-21 00:00:00 2024-05-28 18:28:04 Patient Secure Msg Doctor Unassigned, [place] 1.2.840.1 21577.1.1 3.104.2.7 .3.103743 .8 [id number] [facility] 2024-04-22 00:00:00 2024-05-28 18:26:38 Patient Secure Msg Doctor Unassigned, [place] 1.2.840.1 04695.1.1 3.104.2.7 .3.281298 .8 [id number] [facility] 2024-04-20 00:00:00 2024-05-21 18:17:43 Patient Secure Msg Doctor Unassigned, [place] 1.2.840.1 83861.1.1 3.104.2.7 .3.887754 .8 [id number] [facility] 2024-04-11 00:00:00 2024-04-11 14:11:19 Patient Outreach Sonia Prajapati 1.2.840.1 35503.1.1 3.104.2.7 .3.220179 .8 [id number] [facility] 2024-04-06 01:32:00 2024-04-06 06:05:00 Emergency X MULUGETA PALMA [facility] [id number] [facility] 2024-04-06 01:32:00 2024-04-06 06:05:00 Emergency Mulugeta Palma 1.2.840.1 93892.1.1 3.104.2.7 .3.628946 .8 [id number] [facility] 2024-04-06 00:00:00 2024-04-06 00:00:00 Travel 1.2.840.1 17967.1.1 3.104.2.7 .3.991595 .8 1.2.840.114 350.1.13.10 4.2.7.3.698 084.8 [id number] [facility] 2024-04-04 00:00:00 2024-04-04 08:34:06 Patient Outreach Sonia Prajapati 1.2.840.1 66264.1.1 3.104.2.7 .3.971453 .8 [id number] [facility] 2024-04-03 09:43:00 2024-04-03 17:45:00 Emergency X ANA HAGAN CHARLES [facility] ERT [id number] [facility] 2024-04-03 09:43:00 2024-04-03 17:45:00 Emergency Ana Hagan 1.2.840.1 81043.1.1 3.104.2.7 .3.707533 .8 [id number] [facility] 2024-04-03 00:00:00 2024-04-03 00:00:00 Travel 1.2.840.1 33768.1.1 3.104.2.7 .3.295574 .8 1.2.840.114 350.1.13.10 4.2.7.3.698 084.8 [id number] [facility] 2024-04-01 00:00:00 2024-04-01 14:18:07 Patient Outreach Sonia Prajapati 1.2.840.1 14270.1.1 3.104.2.7 .3.443721 .8 [id number] [facility] 2024-03-31 12:38:00 2024-03-31 19:42:00 Emergency X MISSAEL TEE [facility] ERT [id number] [facility] 2024-03-31 12:38:00 2024-03-31 19:42:00 Emergency Missael Tee 1.2.840.1 38338.1.1 3.104.2.7 .3.665885 .8 [id number] [facility] 2024-03-31 00:00:00 2024-03-31 00:00:00 Travel 1.2.840.1 49900.1.1 3.104.2.7 .3.891326 .8 1.2.840.114 350.1.13.10 4.2.7.3.698 084.8 [id number] [facility] 2024-03-30 00:00:00 2024-03-30 10:17:48 Patient Outreach Alo Sonia 1.2.840.1 39641.1.1 3.104.2.7 .3.029002 .8 [id number] [facility] 2024-03-30 00:00:00 2024-03-30 08:13:15 Patient Outreach Alo Sonia 1.2.840.1 02684.1.1 3.104.2.7 .3.901645 .8 [id number] [facility] 2024-03-29 14:48:00 2024-03-29 19:06:00 Emergency X LEVI FRANK [facility] [id number] [facility] 2024-03-29 14:48:00 2024-03-29 19:06:00 Emergency Levi Frank 1.2.840.1 55407.1.1 3.104.2.7 .3.156046 .8 [id number] [facility] 2024-03-29 00:00:00 2024-03-29 14:12:53 Patient Outreach Alo Sonia 1.2.840.1 34576.1.1 3.104.2.7 .3.936258 .8 [id number] [facility] 2024-03-29 00:00:00 2024-03-29 08:02:10 Patient Outreach Alo Sonia 1.2.840.1 88442.1.1 3.104.2.7 .3.408582 .8 [id number] [facility] 2024-03-29 00:00:00 2024-03-29 00:00:00 Travel 1.2.840.1 86742.1.1 3.104.2.7 .3.629385 .8 1.2.840.114 350.1.13.10 4.2.7.3.698 084.8 [id number] [facility] 2024-03-23 00:00:00 2024-03-23 00:00:00 Patient Outreach Nargis Moore EMMAKERVIN 1.2.840.114 350.1.13.10 4.2.7.2.686 [id number] [facility] 2024-03-23 00:00:00 2024-03-23 00:00:00 Patient Outreach Sonia Prajapati 1.2.840.114 350.1.13.10 4.2.7.2.686 [id number] [facility] 2024-03-23 00:00:00 2024-03-23 00:00:00 Patient Outreach Sonia Prajapati EMMAKERVIN 1.2.840.114 350.1.13.10 4.2.7.2.686 [id number] [facility] 2024-03-23 00:00:00 2024-03-23 00:00:00 Patient Outreach Sonia Prajapati 1.2.840.114 350.1.13.10 4.2.7.2.686 [id number] [facility] 2024-03-22 09:57:00 2024-03-22 17:18:00 Emergency X MATEUSZ GAYLE PAUL [facility] [id number] [facility] 2024-03-22 09:57:00 2024-03-22 17:18:00 Emergency Mateusz Gayle [facility] 1.2.840.114 350.1.13.10 4.2.7.2.686 [id number] [facility] 2024-03-11 20:22:00 2024-03-12 00:03:00 Emergency X MICAH MILLARD [facility] ERT [id number] [facility] 2024-03-11 20:22:00 2024-03-12 00:03:00 Emergency Micah Millard [facility] 1.2.840.114 350.1.13.10 4.2.7.2.686 [id number] [facility] 2024-02-10 11:58:00 2024-02-10 15:10:00 Emergency X RIANA PAUL [facility] ERT [id number] [facility] 2024-02-10 11:58:00 2024-02-10 15:10:00 Emergency Riana Paul [facility] 1.2.840.114 350.1.13.10 4.2.7.2.686 [id number] [id number] [facility] 2024-02-09 14:01:00 2024-02-09 21:19:00 Emergency X JOSE ROBERTO IRELAND [facility] ERT [id number] [facility] 2024-02-09 14:01:00 2024-02-09 21:19:00 Emergency Jose Roberto Ireland [facility] 1.2.840.114 350.1.13.10 4.2.7.2.686 [id number] [id number] [facility] 2024-02-06 09:21:00 2024-02-06 11:51:00 Emergency X SONIA MULLER [facility] ERT [id number] [facility] 2024-02-06 09:21:00 2024-02-06 11:51:00 Emergency Sonia Muller [facility] 1.2.840.114 350.1.13.10 4.2.7.2.686 [id number] [facility] 2024-01-30 10:06:00 2024-01-30 15:02:00 Emergency X DEJON GREEN [facility] ERT [id number] [facility] 2024-01-30 10:06:00 2024-01-30 15:02:00 Emergency Dejon Green [facility] 1.0.114 350.1.13.10 4.2.7.2.686 [id number] [facility] 2024-01-14 21:21:00 2024-01-14 21:48:00 [facility] ERT [id number] [facility] 2024-01-14 21:21:00 2024-01-14 21:48:00 [facility] 1..114 350.1.13.10 4.2.7.2.686 [id number] [facility] 2024-01-05 06:39:00 2024-01-05 07:57:00 Emergency X JACKIE DIAZ [facility] ERT [id number] [facility] 2024-01-05 06:39:00 2024-01-05 07:57:00 Emergency Jackie Diaz [facility] 1..114 350.1.13.10 4.2.7.2.686 [id number] [id number] [facility] 2022-12-29 13:30:00 2022-12-29 14:30:00 MAC Stein 2..840. 1.137979. 4.6.16114 64767 2.16.840.1. 665980.4.6. [id number] [facility] 2022-08-21 00:00:00 2022-08-21 00:00:00 Tl Guzman [facility] 1..114 350.1.13.10 4.2.7.2.686 [id number] [facility] 2022-02-17 00:00:00 2022-02-17 00:00:00 [facility] 1.2.840.114 350.1.13.10 4.2.7.2.686 [id number] [id number] [facility] 2021-11-06 10:40:00 2021-11-06 10:40:00 Outpatient R TL ARANDA [facility] [id number] [facility] 2021-10-28 00:00:00 2021-10-28 00:00:00 Refill Tl Aranda [facility] 1.2.840.114 350.1.13.10 4.2.7.2.686 [id number] 044 [id number] [facility] 2021-10-03 00:00:00 2021-10-03 00:00:00 Refill Tl Aranda [facility] 1.2.840.114 350.1.13.10 4.2.7.2.686 [id number] [id number] [facility] 2021-09-09 00:00:00 2021-09-09 00:00:00 Telephone Georgina Garcia [facility] 1.2.114 350.1.13.10 4.2.7.2.686 [id number] [id number] [facility] 2021-07-18 00:00:00 2021-07-18 00:00:00 Patient Secure Msg Doctor Unassigned, [place] [facility] 1.2.114 350.1.13.10 4.2.7.2.686 [id number] [facility] 2021-07-12 00:00:00 2021-07-12 00:00:00 Telephone Tl Aranda [facility] 1.2.840.114 350.1.13.10 4.2.7.2.686 [id number] [id number] [facility] 2021-07-10 15:55:33 2021-07-10 15:55:44 Office Visit Tl Aranda [facility] Building 1.2.840.114 350.1.13.10 4.2.7.2.686 [id number] 044 [id number] [facility] 2021-07-10 09:55:19 2021-07-10 11:00:50 Office Visit Tl Aranda [facility] Building 1.2.840.114 350.1.13.10 4.2.7.2.686 [id number] [id number] [facility] 2021-07-10 10:00:00 2021-07-10 10:00:00 Outpatient R TL ARANDA [facility] [id number] [facility] 2021-07-09 00:00:00 2021-07-09 00:00:00 Telephone Tl Aranda [facility] Building 1.2.840.114 350.1.13.10 4.2.7.2.686 [id number] [facility] 2021-06-19 00:00:00 2021-06-19 00:00:00 Refill Tl Aranda [facility] Building 1.2.840.114 350.1.13.10 4.2.7.2.686 [id number] [id number] [facility] 2021-05-20 17:59:38 2021-05-20 18:39:03 Urgent Care Provider, [facility] Lesli Oscar [facility] Office Building One 1.2.840.114 350.1.13.10 4.2.7.2.686 [id number] [id number] [facility] 2021-05-20 18:20:00 2021-05-20 18:20:00 Outpatient R [facility] [id number] [facility] 2021-05-20 00:00:00 2021-05-20 00:00:00 Orders Only Doctor Unassigned, [place] [facility] 1.20.114 350.1.13.10 4.2.7.2.686 [id number] [facility] 2021-05-16 00:00:00 2021-05-16 00:00:00 Refill Tl Aranda [facility] Building 1.2.114 350.1.13.10 4.2.7.2.686 [id number] [id number] [facility] 2021-02-14 16:53:57 2021-02-14 17:08:57 Lei Seller Visit Pob, 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 Manoj [facility] Building 1.2.114 350.1.13.10 4.2.7.2.686 [id number] [facility] 2021-02-14 15:55:11 2021-02-14 16:27:03 Office Visit Tl Aranda [facility] Building 1.284.114 350.1.13.10 4.2.7.2.686 [id number] [id number] [facility] 2021-02-14 16:00:00 2021-02-14 16:00:00 Outpatient R TL ARANDA [facility] [id number] [facility] 2021-02-14 00:00:00 2021-02-14 00:00:00 Orders Only Doctor Unassigned, [place] [facility] 1.2.114 350.1.13.10 4.2.7.2.686 [id number] [facility] 2021-02-08 00:00:00 2021-02-08 00:00:00 Refill Tl Aranda [facility] 1.2.840.114 350.1.13.10 4.2.7.2.686 [id number] [facility] 2021-01-28 00:00:00 2021-01-28 00:00:00 Telephone Tl Aranda [facility] 1.2.840.114 350.1.13.10 4.2.7.2.686 [id number] [id number] [facility] 2021-01-22 00:00:00 2021-01-22 00:00:00 Telephone Tl Aranda [facility] 1.2.840.114 350.1.13.10 4.2.7.2.686 [id number] [id number] [facility] 2021-01-21 00:00:00 2021-01-21 00:00:00 Refill Tl Aranda [facility] 1.2.840.114 350.1.13.10 4.2.7.2.686 [id number] [facility] 2020-10-31 13:30:00 2020-10-31 13:30:00 Outpatient R NIMISHA YING [facility] [id number] [facility] 2020-10-09 14:40:00 2020-10-09 14:40:00 Outpatient R TL ARANDA [facility] [id number] [facility] 2020-09-24 09:20:00 2020-09-24 09:20:00 Outpatient R FRANK QUIROZ [facility] [id number] [facility] 2020-07-09 09:20:00 2020-07-09 09:20:00 Outpatient R TL ARANDA [facility] [id number] [facility] 2020-07-09 08:17:40 2020-07-09 08:37:40 Telemedici ne Visit Tl Aranda [facility] 1.2.840.114 350.1.13.10 4.2.7.2.686 [id number] [facility] 2020-06-28 00:00:00 2020-06-28 00:00:00 Darrell Billings [facility] 1.2.840.114 350.1.13.10 4.2.7.2.686 [id number] [facility] 2020-04-19 08:00:00 2020-04-19 08:00:00 Outpatient R MANOJ TL [facility] [id number] [facility] 2020-04-12 09:46:54 2020-04-12 10:06:54 Urgent Care Provider, [facility] Yossi Prasad [facility] Office Building One 1.2840.114 350.1.13.10 4.2.7.2.686 [id number] [facility] 2020-04-12 10:00:00 2020-04-12 10:00:00 Outpatient R YOSSI PRASAD [facility] [id number] [facility] 2020-04-09 00:00:00 2020-04-09 00:00:00 Telephone Tl Aranda [facility] 1.2.840.114 350.1.13.10 4.2.7.2.686 [id number] [facility] 2020-04-05 00:00:00 2020-04-05 00:00:00 Telephone Tl Aranda [facility] 1.2.840.114 350.1.13.10 4.2.7.2.686 [id number] [facility] 2020-03-16 10:02:04 2020-03-16 10:02:51 Clinical Writer Visit Debra Friedman [facility] 1.2.840.114 350.1.13.10 4.2.7.2.686 [id number] [facility] 2020-03-15 15:00:00 2020-03-15 15:00:00 Outpatient R IDALIA, [facility] [id number] [facility] 2020-03-14 16:30:00 2020-03-14 16:30:00 Outpatient R DARRELL BECKFORD [facility] [id number] [facility] 2020-03-14 15:42:00 2020-03-14 15:57:00 Telemedici ne Visit BobDarrell [facility] 1.2.840.114 350.1.13.10 4.2.7.2.686 [id number] [facility] 2020-03-14 00:00:00 2020-03-14 00:00:00 Telephone Tl Aranda [facility] 1.2.840.114 350.1.13.10 4.2.7.2.686 [id number] [facility] 2020-03-12 07:53:07 2020-03-12 08:57:00 Emergency Chelle Fernandez [facility] 1.2.840.114 350.1.13.10 4.2.7.2.686 [id number] [facility] 2020-03-12 07:53:07 2020-03-12 08:57:00 Emergency X CHELLE FERNANDEZ [facility] [id number] [facility] 2020-03-08 15:00:00 2020-03-08 15:00:00 Outpatient R IDALIA, [facility] [id number] [facility] 2020-02-28 13:00:00 2020-02-28 13:00:00 Outpatient R MANOJ [facility] [id number] [facility] 2020-02-28 07:16:07 2020-02-28 07:56:07 [facility] 1.2840.114 350.1.13.10 4.2.7.2.686 [id number] [facility] 2020-02-23 00:00:00 2020-02-23 00:00:[facility] 1.2.840.114 350.1.13.10 4.2.7.2.686 [id number] [facility] 2020-02-16 12:59:15 2020-02-16 23:59:00 Outpatient R [facility] [id number] [facility] 2020-02-16 12:59:00 2020-02-16 23:59:00 [facility] 1.2840.114 350.1.13.10 4.2.7.2.686 [id number] [facility] 2020-02-16 00:00:00 2020-02-16 00:00:00 Orders Only Doctor Unassigned, [place] [facility] 1.2.840.114 350.1.13.10 4.2.7.2.686 [id number] [facility] 2020-02-16 00:00:00 2020-02-16 00:00:00 Telephone Manoj [facility] Building 1.2.840.114 350.1.13.10 4.2.7.2.686 [id number] [facility] 2020-01-18 07:23:58 2020-01-18 08:32:20 Office Visit [place] 1.2840.114 350.1.13.10 4.2.7.2.686 [id number] [facility] 2020-01-18 07:20:00 2020-01-18 07:20:00 Outpatient R TL ARANDA [facility] [id number] [facility] 2020-01-18 00:00:00 2020-01-18 00:00:00 Letter (Out) Doctor Unassigned, [place] [facility] 1.20.114 350.1.13.10 4.2.7.2.686 [id number] [facility] 2020-01-07 00:00:00 2020-01-07 00:00:00 Natividad Corrigan [facility] Building 1.840.114 350.1.13.10 4.2.7.2.686 [id number] [facility] 2020-01-04 00:00:00 2020-01-04 00:00:00 Renita Tl Aranda [facility] Building 1.2.114 350.1.13.10 4.2.7.2.686 [id number] [facility] 2019-12-30 07:35:00 2019-12-30 11:49:00 Hospital Encounter Glo Finn [facility] 1.2.114 350.1.13.10 4.2.7.2.686 [id number] [facility] 2019-12-30 07:35:00 2019-12-30 11:49:00 Outpatient R GLO FINN [facility] CASEY [id number] [facility] 2019-12-30 00:00:00 2019-12-30 00:00:00 Orders Only Doctor Unassigned, [place] [facility] 1.2.114 350.1.13.10 4.2.7.2.686 [id number] [facility] 2019-12-19 08:02:28 2019-12-19 09:08:19 Office Visit Kendall Campa [facility] 1.2.840.114 350.1.13.10 4.2.7.2.686 [id number] [facility] 2019-12-01 15:15:00 2019-12-01 15:15:00 Outpatient JOCELYN CHAPPELL [facility] [id number] [facility] 2019-10-26 14:45:00 2019-10-26 15:36:20 Outpatient NIMISHA WATKINS [facility] [id number] [facility] 2019-06-10 10:30:00 2019-06-10 12:20:48 Outpatient R TL ARANDA [facility] [id number] [facility] 2019-05-30 14:20:00 2019-05-30 17:18:22 Outpatient R DARRELL MAXWELL III [facility] [id number] [facility] 2019-05-24 08:45:00 2019-05-24 08:45:00 Outpatient JUHI REAL [facility] [id number] [facility] 2019-04-26 08:30:00 2019-04-26 09:03:15 Outpatient JUHI REAL [facility] [id number] [facility] 2019-01-12 15:30:00 2019-01-12 16:04:35 Outpatient NATIVIDAD GLASS [facility] [id number] [facility] Results Test Description Test Time Test Comments Results Result Co mments Source [facility] GLUCOSE (AUTOMATED)2025-05-29 22:51:42* Test Item Value Reference Range Interpretation Comme nts POCT GLU (test code = 4111173636) 217 mg/dL 70-110 H Lab Interpretation (test cod e = 14010-4) Abnormal [facility] GLUCOSE (AUTOMATED)2025-05-29 18:30:11* Test Item Value Reference Range Interpretation Comme nts POCT GLU (test code = 9870963030) 138 mg/dL 70-110 H Lab Interpretation (test cod e = 64352-8) [facility]normal [facility] WO [id number] 13:26:08CT HEAD WO CONTRAST HISTORY:fall COMPARISON: CT [...] clear. The calvariumand central skull base are unremarkable.[facility] GLUCOSE (AUTOMATED)2025-05-29 12:40:14* Test Item Value Reference Range Interpretation Comme nts POCT GLU (test code = 6714061571) 162 mg/dL 70-110 H Lab Interpretation (test cod e = 87742-7) Abnormal [facility] CenterTROP[facility] [id number] 00:41:58* Test Item Value Reference Range Interpretation Comme nts TROPONIN I (test code = 0399952341) <=0.034 RJ (test code = RJ) Reference [...] of biotin. Lab Interpretation (test code = 07883-5) Normal [facility]MINAL [id number] 00:41:58* Test Item Value Reference Range Interpretation Comme nts NT-proBNP (test code = 87272-9) 428 pg/mL <=125 RJ (test code = RJ) Result Indeterminate-Consid er causes of NT-proBNP elevation other than Heart failure such as acute coronary syndrome, pulmonary embolism, pulmonary hypertension, sepsis, stroke, and renal dysfunction. Lab Interpretation (test code = 37777-9) Abnormal [facility] CenterXR CHEST 1 [id number] 00:39:26XR CHEST 1 05/28/2025 7:19 PM HISTORY: weakness . COMPARISON: Chest radiograph dated 04/27/2025. FINDINGS: Cardiomediastinal silhouette is unchanged.. Low volume with bronchovascular crowding. Left retrocardiac streakyopacities, possibly atelectasis. No sizable pleural effusion orpneumothorax. No acute osseous abnormality.[facility]. METABOLIC PANEL (82453) 2025-05-29 00:24:36* Test Item Value Reference Range Interpretation Comme [facility] (test code = 5632668661) 136 mmol/L 135-145 K (test code = 2086809422) 4.6 mmol/L 3.5-5.0 CL (test code = 0371725087) 105 mmol/L 98-108 CO2 TOTAL (test code = 4398944393) 25 mmol/L 23-31 AGAP (test code = 4224636016) 6 2-16 BUN (test code = 4697866679) 29 mg/dL 7-23 H GLUCOSE (test code = 0726863984) 128 mg/dL 70-110 H CREATININE (test code = 2160-0) 1.1 mg/dL 0.60-1.25 TOTAL BILI (test code = 9897688500) 0.4 mg/dL 0.1-1.1 CALCIUM (test code = 7645557442) 8.5 mg/dL 8.6-10.6 L T PROTEIN (test code = 9910484432) 6.5 g/dL 6.3-8.2 ALBUMIN (test code = 2740603958) 3.7 g/dL 3.5-5.0 ALK PHOS (test code = 2405677806) 91 U/L 34-122 ALTv (test code = 1742-6) 15 U/L 5-50 AST(SGOT) (test code = 2796443004) 20 U/L 13-40 eGFR (test code = 17578-6) 71.8 mL/min/1.73m2 CKD-EPI eGFR (2020). Assuming creatinine has been stable day-to-day for at least three months, the eGFR indicates Category G2 (60 - 89 mL/min/1.73 m2) Lab Interpretation (test code = 15837-9) Abnormal [facility] WITH [id number] 00:05:13* Test Item Value Reference Range Interpretation [...] 32.2 g/dL 31.2-35.0 RDW-SD (test code = 98264-6) 45.2 fL 38.5-51.6 RDW-CV (test code = 788-0) 14.4 % 12.1-15.4 PLT (test code = 777-3) 224 150-328 MPV (test code = 47180-9) 9.4 fL 9.8-13.0 L NRBC/100 WBC (test code = 7891163448) 0 0.0-10.0 NRBC x10^3 (test code = 7167123742) See_Comment [Automated [employer]] The system which generated this result transmitted reference range: 10*3/?L. The reference range was not used to interpret this result as normal/abnormal. GRAN MAT (NEUT) % (test code = 770-8) 73.1 % IMM GRAN % (test code = 2973557217) 0.4 % LYMPH % (test code = 736-9) 16.4 % MONO % (test code = 5905-5) 8 % EOS % (test code = 713-8) 1.7 % BASO % (test code = 706-2) 0.4 % GRAN MAT x10^3(ANC) (test code = 1304548481) 5.54 10*3/uL 1.99-6.95 IMM GRAN x10^3 (test code = 2108742992) 0.03 10*3/uL 0.00-0.06 LYMPH x10^3 (test code = 731-0) 1.24 10*3/uL 1.09-3.23 MONO x10^3 (test code = 742-7) 0.61 10*3/uL 0.36-1.02 EOS x10^3 (test code = 711-2) 0.13 10*3/uL 0.06-0.53 BASO x10^3 (test code = 704-7) 0.03 10*3/uL 0.01-0.09 Lab Interpretation (test code = 64678-2) Abnormal [facility] GLUCOSE (AUTOMATED)2025-04-28 21:46:08* Test Item Value Reference Range Interpretation Comme nts POCT GLU (test code = 9208993915) 210 mg/dL 70-110 H Lab Interpretation (test cod e = 73289-1) Abnormal [facility] GLUCOSE (AUTOMATED)2025-04-28 17:26:40* Test Item Value Reference Range Interpretation Comme nts POCT GLU (test code = 1858522919) 276 mg/dL 70-110 H Lab Interpretation (test cod e = 39387-4) Abnormal [facility] GLUCOSE (AUTOMATED)2025-04-28 16:25:40* Test Item Value Reference Range Interpretation Comme nts POCT GLU (test code = 8589813015) 277 mg/dL 70-110 H Lab Interpretation (test cod e = 98358-7) Abnormal [facility] GLUCOSE (AUTOMATED)2025-04-28 12:50:45* Test Item Value Reference Range Interpretation Comme nts POCT GLU (test code = 6119207258) 150 mg/dL 70-110 H Lab Interpretation (test cod e = 30693-3) Abnormal [facility] GLUCOSE (AUTOMATED)2025-04-28 09:59:10* Test Item Value Reference Range Interpretation Comme nts POCT GLU (test code = 5660614006) 205 mg/dL 70-110 H Lab Interpretation (test cod e = 66922-4) Abnormal [facility] 1 [id number] 08:17:09Ordering physician: RAJ GARCIA Indication: Shortness of breath Comparison: Chest dated 06/27/2024 Technical quality: Adequate Findings: Single AP view of the chest. The cardiopericardial silhouette ismildly enlarged. There is linear atelectasis or scarring in the right lowerlung. The visualized bony thorax is intact.[facility] GLUCOSE (AUTOMATED)2025-04-28 07:43:10* Test Item Value Reference Range Interpretation Comme nts POCT GLU (test code = 7304014813) 228 mg/dL 70-110 H Lab Interpretation (test cod e = 85215-3) Abnormal [facility] GLUCOSE (AUTOMATED)2025-04-28 05:42:09* Test Item Value Reference Range Interpretation Comme nts POCT GLU (test code = 9440899141) 131 mg/dL 70-110 H Lab Interpretation (test cod e = 37258-1) Abnormal [facility] GLUCOSE (AUTOMATED)2025-04-28 01:37:08* Test Item Value Reference Range Interpretation Comme nts POCT GLU (test code = 0799061188) 170 mg/dL 70-110 H Lab Interpretation (test cod e = 61550-7) Abnormal [facility] GLUCOSE (AUTOMATED)2025-04-27 21:38:38* Test Item Value Reference Range Interpretation Comme nts POCT GLU (test code = 4503873502) 175 mg/dL 70-110 H Lab Interpretation (test cod e = 60488-3) Abnormal [facility] GLUCOSE (AUTOMATED)2025-04-27 12:56:12* Test Item Value Reference Range Interpretation Comme nts POCT GLU (test code = 6508200973) 149 mg/dL 70-110 H Lab Interpretation (test cod e = 49393-8) Abnormal [facility] GLUCOSE (AUTOMATED)2025-04-27 09:00:38* Test Item Value Reference Range Interpretation Comme nts POCT GLU (test code = 5055350218) 123 mg/dL 70-110 H Lab Interpretation (test cod e = 12308-8) Abnormal [facility] GLUCOSE (AUTOMATED)2025-04-27 04:23:09* Test Item Value Reference Range Interpretation Comme nts POCT GLU (test code = 1791492820) 196 mg/dL 70-110 H Lab Interpretation (test cod e = 65143-6) Abnormal [facility] GLUCOSE (AUTOMATED)2025-04-27 01:00:09* Test Item Value Reference Range Interpretation Comme nts POCT GLU (test code = 5403635490) 192 mg/dL 70-110 H Lab Interpretation (test cod e = 43263-8) Abnormal [facility] GLUCOSE (AUTOMATED)2025-04-26 21:35:37* Test Item Value Reference Range Interpretation Comme nts POCT GLU (test code = 9018663407) 216 mg/dL 70-110 H Lab Interpretation (test cod e = 17100-8) Abnormal [facility] CenterEKG (SCANNED DOCUMENTS)2025-04-26 20:19:58 Ordered by an unspecified provider.[facility] GLUCOSE (AUTOMATED)2025-04-26 16:53:41* Test Item Value Reference Range Interpretation Comme nts POCT GLU (test code = 2138550076) 161 mg/dL 70-110 H Lab Interpretation (test cod e = 92338-8) Abnormal [facility] GLUCOSE (AUTOMATED)2025-04-26 12:55:07* Test Item Value Reference Range Interpretation Comme nts POCT GLU (test code = 6086563341) 181 mg/dL 70-110 H Lab Interpretation (test cod e = 27188-1) Abnormal [facility] CenterComp. Metabolic Panel (59717)2025-04-26 10:23:11* Test Item Value Reference Range Interpretation Comme nts NA (test code = 8578632347) 135 mmol/L 135-145 K (test code = 2013686103) 4 mmol/L 3.5-5.0 CL (test code = 3320946908) 105 mmol/L 98-108 CO2 TOTAL (test code = 2382041117) 25 mmol/L 23-31 AGAP (test code = 4298098683) 5 2-16 BUN (test code = 0815984481) 19 mg/dL 7-23 GLUCOSE (test code = 7143815360) 236 mg/dL 70-110 H CREATININE (test code = 2160-0) 0.99 mg/dL 0.60-1.25 TOTAL BILI (test code = 9629770711) 0.6 mg/dL 0.1-1.1 CALCIUM (test code = 9070621756) 8.1 mg/dL 8.6-10.6 L T PROTEIN (test code = 2991829991) 5.4 g/dL 6.3-8.2 L ALBUMIN (test code = 9372610707) 2.7 g/dL 3.5-5.0 L ALK PHOS (test code = 0049927831) 99 U/L 34-122 ALTv (test code = 1742-6) 14 U/L 5-50 AST(SGOT) (test code = 9052652467) 36 U/L 13-40 eGFR (test code = 55133-7) 81.4 mL/min/1.73m2 CKD-EPI eGFR (2020). Assuming creatinine has been stable day-to-day for at least three months, the eGFR indicates Category G2 (60 - 89 mL/min/1.73 m2) Lab Interpretation (test code = 06939-6) Abnormal [facility] with [id number] 09:01:08* Test Item Value Reference Range Interpretation [...] 32.9 g/dL 31.2-35.0 RDW-SD (test code = 69721-9) 40.5 fL 38.5-51.6 RDW-CV (test code = 788-0) 13.2 % 12.1-15.4 PLT (test code = 777-3) 288 150-328 MPV (test code = 70003-0) 9.4 fL 9.8-13.0 L NRBC/100 WBC (test code = 5130842818) 0 0.0-10.0 NRBC x10^3 (test code = 2768622365) See_Comment [Automated messa ge] The system which generated this result transmitted reference range: 10*3/?L. The reference range was not used to interpret this result as normal/abnormal. GRAN MAT (NEUT) % (test code = 770-8) 72.4 % IMM GRAN % (test code = 2543251469) 0.6 % LYMPH % (test code = 736-9) 13.8 % MONO % (test code = 5905-5) 12.3 % EOS % (test code = 713-8) 0.6 % BASO % (test code = 706-2) 0.3 % GRAN MAT x10^3(ANC) (test code = 8322631991) 7.13 10*3/uL 1.99-6.95 H IMM GRAN x10^3 (test code = 8894981720) 0.06 10*3/uL 0.00-0.06 LYMPH x10^3 (test code = 731-0) 1.36 10*3/uL 1.09-3.23 MONO x10^3 (test code = 742-7) 1.21 10*3/uL 0.36-1.02 H EOS x10^3 (test code = 711-2) 0.06 10*3/uL 0.06-0.53 BASO x10^3 (test code = 704-7) 0.03 10*3/uL 0.01-0.09 Lab Interpretation (test code = 11290-0) Abnormal [facility] GLUCOSE (AUTOMATED)2025-04-26 08:12:36* Test Item Value Reference Range Interpretation Comme nts POCT GLU (test code = 2998063493) 266 mg/dL 70-110 H Lab Interpretation (test cod e = 56650-0) Abnormal [facility] GLUCOSE (AUTOMATED)2025-04-26 03:52:07* Test Item Value Reference Range Interpretation Comme nts POCT GLU (test code = 4939119557) 100 mg/dL 70-110 Lab Interpretation (test cod e = 91834-0) Normal [facility] GLUCOSE (AUTOMATED)2025-04-26 03:31:03* Test Item Value Reference Range Interpretation Comme nts POCT GLU (test code = 9630667130) 60 mg/dL 70-110 L Lab Interpretation (test cod e = 93038-7) Abnormal [facility] CenterGlycosylated Hemoglobin (A1C)2025-04-26 01:54:14* Test Item Value Reference Range Interpretation Comme nts HGB A1C (test code = 4548-4) 8.7 % 4.0-5.7 H RJ (test code = RJ) Reference RangesNormal: <5.7%Prediabetes: 5.7 - 6.4%Diabetes: > 6.5% Lab Interpretation (test code = 75808-5) Abnormal [facility] GLUCOSE (AUTOMATED)2025-04-26 01:41:07* Test Item Value Reference Range Interpretation Comme nts POCT GLU (test code = 4452743697) 92 mg/dL 70-110 Lab Interpretation (test cod e = 90402-1) Normal [facility] GLUCOSE (AUTOMATED)2025-04-26 00:44:08* Test Item Value Reference Range Interpretation Comme nts POCT GLU (test code = 3088791516) 109 mg/dL 70-110 Lab Interpretation (test cod e = 88475-7) Normal [facility] CenterTROPONIN [id number] 00:18:21* Test Item Value Reference Range Interpretation Comme nts TROPONIN I (test code = 8971336900) 0.009 ng/mL <=0.034 RJ (test code = [...] of biotin. Lab Interpretation (test code = 71861-0) Normal [facility] CenterN-TERMINAL [id number] 00:16:25* Test Item Value Reference Range Interpretation Comme nts NT-proBNP (test code = 90349-2) 727 pg/mL <=125 RJ (test code = JR) Result Indeterminate-Consid er causes of NT-proBNP elevation other than Heart failure such as acute coronary syndrome, pulmonary embolism, pulmonary hypertension, sepsis, stroke, and renal dysfunction. Lab Interpretation (test code = 20115-6) Abnormal [facility] CenterPOCT GLUCOSE (AUTOMATED)2025-04-26 00:11:42* Test Item Value Reference Range Interpretation Comme [facility] PO[facility] GLU (test code = 0293763409) 43 mg/dL 70-110 LL Lab Interpretation (test cod e = 81686-0) Abnormal [facility] CenterETHANOL2025-06-04 00:06:28 ALCOHOL<10mg/dL04/25/2025 7:06 PM [facility]<10 Issqajjm18-969 Toxic>100 Depression of [employer]>400 Fatalities ReportedMemorial Hermann The [facility]lands Medical CenterSalicylate2025-06-04 00:06:28SALICYLATE<10mg/L04/25/2025 7:06 PM [facility] Range: ? Analgesic and Antipyretic Use ? 20-100 mg/L ? ? Anti-Inflammatory Use ? 100-250 mg/L Toxic Range: ? Greater than 300 mg/LUnCook Children's Medical CenterAcetaminophen2025-06-04 00:06:23* Test Item Value Reference Range Interpretation Comme nts ACETAMINOP (test code = 8577637963) 10.0-30.0 L RJ (test code = RJ) Toxic: Greater sima n 200 ug/mL @ 4 hour post ingestion or greater than 50 ug/mL @ 12 hour post ingestion Lab Interpretation (test code = 69913-4) Abnormal [facility] CenterCOM. METABOLIC PANEL (09316)2025-04-26 00:03:49* Test Item Value Reference Range Interpretation Comme nts NA (test code = 4389328097) 138 mmol/L 135-145 K (test code = 2106245296) 3.8 mmol/L 3.5-5.0 CL (test code = 2884291476) 107 mmol/L 98-108 CO2 TOTAL (test code = 4433024282) 24 mmol/L 23-31 AGAP (test code = 4363010340) 7 2-16 BUN (test code = 8005228201) 20 mg/dL 7-23 GLUCOSE (test code = 3822507048) 41 mg/dL 70-110 LL CREATININE (test code = 2160-0) 1.12 mg/dL 0.60-1.25 TOTAL BILI (test code = 3225642111) 0.9 mg/dL 0.1-1.1 CALCIUM (test code = 2499010905) 8.6 mg/dL 8.6-10.6 T PROTEIN (test code = 4698384229) 6.2 g/dL 6.3-8.2 L ALBUMIN (test code = 0656977816) 3.4 g/dL 3.5-5.0 L ALK PHOS (test code = 0550480753) 115 U/L 34-122 ALTv (test code = 1742-6) 16 U/L 5-50 AST(SGOT) (test code = 6225555943) 39 U/L 13-40 eGFR (test code = 57631-2) 70.2 mL/min/1.73m2 CKD-EPI eGFR (2020). Assuming creatinine has been stable day-to-day for at least three months, the eGFR indicates Category G2 (60 - 89 mL/min/1.73 m2) Lab Interpretation (test code = 52148-1) Abnormal [facility] CenterMagnesium2025-06-04 00:02:43* Test Item Value Reference Range Interpretation Comme nts MAGNESIUM (test code = 6005437186) 1.8 mg/dL 1.7-2.4 Lab Interpretation (test cod e = 91660-8) Normal [facility] CenterLIPASE2025-06-04 00:02:23* Test Item Value Reference Range Interpretation Comme nts LIPASE (test code = 3862445124) 24 U/L 0-220 Lab Interpretation (test cod e = 26450-1) Normal [facility] CenterCreatine Vmmozc7708-61-04 00:02:22* Test Item Value Reference Range Interpretation Comme nts CK (test code = 9267826639) 663 U/L 33-194 H Lab Interpretation (test cod e = 10998-9) Abnormal [facility] CenterCBC WITH [id number] 23:46:17* Test Item Value Reference Range Interpretation [...] 32.7 g/dL 31.2-35.0 RDW-SD (test code = 94617-4) 41.1 fL 38.5-51.6 RDW-CV (test code = 788-0) 13.1 % 12.1-15.4 PLT (test code = 777-3) 336 150-328 H MPV (test code = 48667-3) 9.8 fL 9.8-13.0 NRBC/100 WBC (test code = 5303468014) 0 0.0-10.0 NRBC x10^3 (test code = 2628637140) See_Comment [Automated messa ge] The system which generated this result transmitted reference range: 10*3/?L. The reference range was not used to interpret this result as normal/abnormal. GRAN MAT (NEUT) % (test code = 770-8) 83.4 % IMM GRAN % (test code = 5036219988) 0.7 % LYMPH % (test code = 736-9) 7 % MONO % (test code = 5905-5) 8.7 % EOS % (test code = 713-8) 0 % BASO % (test code = 706-2) 0.2 % GRAN MAT x10^3(ANC) (test code = 6738199711) 9.99 10*3/uL 1.99-6.95 H IMM GRAN x10^3 (test code = 6705445101) 0.08 10*3/uL 0.00-0.06 H LYMPH x10^3 (test code = 731-0) 0.84 10*3/uL 1.09-3.23 L MONO x10^3 (test code = 742-7) 1.04 10*3/uL 0.36-1.02 H EOS x10^3 (test code = 711-2) 0.06-0.53 L BASO x10^3 (test code = 704-7) 0.01-0.09 Lab Interpretation (test code = 38570-0) Abnormal [facility] CenterCT Head wo umzidumy9859-57-93 23:43:12CT HEAD WO CONTRAST, CT CERVICAL SPINE [...] subluxation seen. The prevertebral soft tissues are unremarkable.[facility] CenterCT Cervical spine wo mzpznijf1115-90-57 23:43:12CT HEAD WO CONTRAST, CT CERVICAL SPINE [...] luxation seen. The prevertebral soft tissues are unremarkable.[facility]tical Voiv4046-59-06 22:19:00Chelle Fernandez MD ? ? 04/26/2025 ?9:23 [...] of separately billable procedures and treating other patients.[facility] CenterCT Cervical spine wo kvdmaksx3818-55-12 13:10:21CT HEAD WO CONTRAST, CT CERVICAL SPINE [...] fromC4 to C6.. Visualized lung apices are unremarkable.[facility] CenterCT Head wo vmekenwu7464-29-08 13:10:21CT HEAD WO CONTRAST, CT CERVICAL SPINE [...] fromC4 to C6.. Visualized lung apices are unremarkable.[facility] with Pbij4742-11-91 12:52:37* Test Item Value Reference Range Interpretation [...] 32.2 g/dL 31.2-35.0 RDW-SD (test code = 95750-5) 42.9 fL 38.5-51.6 RDW-CV (test code = 788-0) 13.4 % 12.1-15.4 PLT (test code = 777-3) 178 150-328 MPV (test code = 12157-3) 11.1 fL 9.8-13.0 NRBC/100 WBC (test code = 2421158826) 0 0.0-10.0 NRBC x10^3 (test code = 3338057902) See_Comment [Automated [employer]] The system which generated this result transmitted reference range: 10*3/?L. The reference range was not used to interpret this result as normal/abnormal. SEG % (test code = 51042-4) 56 % 33-76 BAND % (test code = 59708-9) 3 % 0-1 H META % (test code = 96419-6) 2 % <=0 H MYELO % (test code = 94243-4) 1 % <=0 H LYMPH % (test code = 02961-8) 27 % 14-54 MONO % (test code = 41638-8) 11 % 0-4 H ANC (test code = 753-4) 3.08 10*3/uL 1.99-6.95 Lab Interpretation (test code = 98351-3) Abnormal [facility] CenterTroponin [id number] 12:27:36* Test Item Value Reference Range Interpretation Comme nts TROPONIN I (test code = 5613703614) 0.007 ng/mL <=0.034 RJ (test code = [...] of biotin. Lab Interpretation (test code = 70092-4) Normal [facility]. Metabolic Panel (35960)2025-04-20 12:16:36* Test Item Value Reference Range Interpretation Comme nts NA (test code = 9684653479) 133 mmol/L 135-145 L K (test code = 3852617247) 4.3 mmol/L 3.5-5.0 CL (test code = 3071503729) 103 mmol/L 98-108 CO2 TOTAL (test code = 2820692500) 19 mmol/L 23-31 L AGAP (test code = 9958631995) 11 2-16 BUN (test code = 9427526932) 32 mg/dL 7-23 H GLUCOSE (test code = 7949655458) 132 mg/dL 70-110 H CREATININE (test code = 2160-0) 1.08 mg/dL 0.60-1.25 TOTAL BILI (test code = 9983146187) 0.6 mg/dL 0.1-1.1 CALCIUM (test code = 1081590674) 7.8 mg/dL 8.6-10.6 L T PROTEIN (test code = 8087636244) 6.5 g/dL 6.3-8.2 ALBUMIN (test code = 8287305361) 3.5 g/dL 3.5-5.0 ALK PHOS (test code = 0990307249) 104 U/L 34-122 ALTv (test code = 1742-6) 23 U/L 5-50 AST(SGOT) (test code = 4690167852) 27 U/L 13-40 eGFR (test code = 82706-8) 73.4 mL/min/1.73m2 CKD-EPI eGFR (2020). Assuming creatinine has been stable day-to-day for at least three months, the eGFR indicates Category G2 (60 - 89 mL/min/1.73 m2) Lab Interpretation (test code = 11794-8) Abnormal [facility] GLUCOSE (AUTOMATED)2025-04-20 11:45:19* Test Item Value Reference Range Interpretation Comme naval [facility] POCT GLU (test code = 6493419706) 146 mg/dL 70-110 H Lab Interpretation (test cod e = 12500-5) Abnormal [facility] Xgjnkuy2544-71-95 08:37:47* Test Item Value Reference Range Interpretation Comme nts POC Glu (test code = 6957822121) 167 mg/dL 70-99 H POC Performing Location (imani t code = 4524697619) [place] [address] Lab Interpretation (test cod e = 31891-4) Abnormal [facility] Vqmkcgg0027-27-59 17:39:08* Test Item Value Reference Range Interpretation Comme nts POC Glu (test code = 6193888523) 224 mg/dL 70-99 H POC Glu Comment 1 (test code = 6729692265) Notified RN/MD POC Performing Location (imani t code = 0949471347) [facility] Lab Interpretation (test cod e = 39049-2) Abnormal [facility] Jzcmafz4563-04-45 14:38:47* Test Item Value Reference Range Interpretation Comme nts POC Glu (test code = 9239590239) 184 mg/dL 70-99 H POC Performing Location (imani t code = 1030296282) [facility] Lab Interpretation (test cod e = 17794-0) Abnormal [facility] Gvnboyn9207-16-70 08:23:44* Test Item Value Reference Range Interpretation Comme nts POC Glu (test code = 5938068582) 142 mg/dL 70-99 H POC Glu Comment 1 (test code = 9782188658) Notified RN/MD POC Performing Location (imani t code = 3666855494) [place] [address] Lab Interpretation (test cod e = 03040-9) Abnormal [facility] 12 lead (arrhythmia)2025-04-11 19:39:17* Test Item Value Reference Range Interpretation Comme nts Ventricular Rate (test code = 7575089802) BPM Atrial Rate (test code = 5763751845) BPM CT Interval (test code = 1640924121) 152 ms QRS Duration (test code = 3331021128) 86 ms QT/QTc (test code = 8397294724) 390 ms QTc Calculation (test code = 7551232337) 412 ms P-[place] (test code = 3010163678) degrees R-[place] (test code = 6053752024) degrees T-[place] (test code = 6655361083) degrees IMP (test code = IMP) PXN (test code = PXN) [facility] Dippvpi0331-21-22 17:10:20* Test Item Value Reference Range Interpretation Comme nts POC Glu (test code = 3386243843) 186 mg/dL 70-99 H POC Glu Comment 1 (test code = 3347163597) Notified RN/MD POC Performing Location (imani t code = 1791704647) [place] [address] Lab Interpretation (test cod e = 74026-7) Abnormal [facility] Grkclup1419-72-47 18:32:59* Test Item Value Reference Range Interpretation Comme nts POC Glu (test code = 7510783070) 84 mg/dL 70-99 POC Performing Location (imani t code = 0087578636) [facility] Hinkdep3820-04-00 14:18:26* Test Item Value Reference Range Interpretation Comme nts POC Glu (test code = 4088387265) 84 mg/dL 70-99 POC Performing Location (imani t code = 2663267716) [facility] Lxgocms4317-52-69 07:46:54* Test Item Value Reference Range Interpretation Comme nts POC Glu (test code = 6121442208) 197 mg/dL 70-99 H POC Performing Location (imani t code = 9323214521) ER/[facility]TU Lab Interpretation (test cod e = 34435-6) Abnormal [facility] GLUCOSE (AUTOMATED)2024-08-25 16:36:35* Test Item Value Reference Range Interpretation Comme nts POCT GLU (test code = 0576229533) 304 mg/dL 70-110 H Lab Interpretation (test cod e = 67873-0) Abnormal [facility] GLUCOSE (AUTOMATED)2024-08-25 01:27:39* Test Item Value Reference Range Interpretation Comme nts POCT GLU (test code = 3161878033) 134 mg/dL 70-110 H Lab Interpretation (test cod e = 79905-5) Abnormal [facility] GLUCOSE (AUTOMATED)2024-08-24 23:32:04* Test Item Value Reference Range Interpretation Comme nts POCT GLU (test code = 3379701011) 103 mg/dL 70-110 Lab Interpretation (test cod e = 91808-6) Normal [facility] GLUCOSE (AUTOMATED)2024-08-24 21:25:39* Test Item Value Reference Range Interpretation Comme nts POCT GLU (test code = 1657276207) 175 mg/dL 70-110 H Lab Interpretation (test cod e = 88423-0) Abnormal [facility] GLUCOSE (AUTOMATED)2024-08-24 19:29:36* Test Item Value Reference Range Interpretation Comme nts POCT GLU (test code = 9417842963) 224 mg/dL 70-110 H Lab Interpretation (test cod e = 86935-8) Abnormal [facility] GLUCOSE (AUTOMATED)2024-08-24 18:32:07* Test Item Value Reference Range Interpretation Comme nts POCT GLU (test code = 7179297921) 269 mg/dL 70-110 H Lab Interpretation (test cod e = 88657-3) Abnormal [facility] GLUCOSE (AUTOMATED)2024-08-24 17:47:07* Test Item Value Reference Range Interpretation Comme nts POCT GLU (test code = 6193738965) 202 mg/dL 70-110 H Lab Interpretation (test cod e = 26117-9) Abnormal [facility] GLUCOSE (AUTOMATED)2024-08-24 16:29:35* Test Item Value Reference Range Interpretation Comme nts POCT GLU (test code = 9218112417) 224 mg/dL 70-110 H Lab Interpretation (test cod e = 58807-0) Abnormal [facility] GLUCOSE (AUTOMATED)2024-08-24 15:25:37* Test Item Value Reference Range Interpretation Comme nts POCT GLU (test code = 5025584281) 206 mg/dL 70-110 H Lab Interpretation (test cod e = 71673-3) Abnormal [facility] GLUCOSE (AUTOMATED)2024-08-24 14:25:36* Test Item Value Reference Range Interpretation Comme nts POCT GLU (test code = 4842101359) 148 mg/dL 70-110 H Lab Interpretation (test cod e = 72549-0) Abnormal [facility] GLUCOSE (AUTOMATED)2024-08-24 13:32:06* Test Item Value Reference Range Interpretation Comme nts POCT GLU (test code = 6209674883) 87 mg/dL 70-110 Lab Interpretation (test cod e = 11309-7) Normal [facility] GLUCOSE (AUTOMATED)2024-08-24 12:30:07* Test Item Value Reference Range Interpretation Comme nts POCT GLU (test code = 9265613185) 87 mg/dL 70-110 Lab Interpretation (test cod e = 36591-0) Normal [facility] GLUCOSE (AUTOMATED)2024-08-24 11:39:08* Test Item Value Reference Range Interpretation Comme nts POCT GLU (test code = 4176823861) 82 mg/dL 70-110 Lab Interpretation (test cod e = 19492-6) Normal [facility] GLUCOSE (AUTOMATED)2024-08-24 10:33:04* Test Item Value Reference Range Interpretation Comme nts POCT GLU (test code = 0651757099) 83 mg/dL 70-110 Lab Interpretation (test cod e = 94137-7) Normal [facility] GLUCOSE (AUTOMATED)2024-08-24 09:21:05* Test Item Value Reference Range Interpretation Comme nts POCT GLU (test code = 1695764326) 80 mg/dL 70-110 Lab Interpretation (test cod e = 11226-5) Normal [facility] GLUCOSE (AUTOMATED)2024-08-24 08:32:34* Test Item Value Reference Range Interpretation Comme nts POCT GLU (test code = 8963601290) 86 mg/dL 70-110 Lab Interpretation (test cod e = 25087-7) Normal [facility] GLUCOSE (AUTOMATED)2024-08-24 07:42:04* Test Item Value Reference Range Interpretation Comme nts POCT GLU (test code = 2054113722) 91 mg/dL 70-110 Lab Interpretation (test cod e = 10312-6) Normal [facility] GLUCOSE (AUTOMATED)2024-08-24 06:35:32* Test Item Value Reference Range Interpretation Comme nts POCT GLU (test code = 7386923026) 83 mg/dL 70-110 Lab Interpretation (test cod e = 68217-4) [facility]2081-24-02 05:50:54* Test Item Value Reference Range Interpretation Comme nts NT-proBNP (test code = 63426-7) 181 pg/mL <=125 RJ (test code = RJ) Result Indeterminate-Consid er causes of NT-proBNP elevation other than Heart failure such as acute coronary syndrome, pulmonary embolism, pulmonary hypertension, sepsis, stroke, and renal dysfunction. Lab Interpretation (test code = 25121-2) Abnormal [facility] GLUCOSE (AUTOMATED)2024-08-24 05:19:32* Test Item Value Reference Range Interpretation Comme nts POCT GLU (test code = 7645915796) 91 mg/dL 70-110 Lab Interpretation (test cod e = 00912-8) Normal [facility] GLUCOSE (AUTOMATED)2024-08-24 04:25:02* Test Item Value Reference Range Interpretation Comme nts POCT GLU (test code = 0106639270) 104 mg/dL 70-110 Lab Interpretation (test cod e = 95045-8) Normal [facility] GLUCOSE (AUTOMATED)2024-08-24 03:30:06* Test Item Value Reference Range Interpretation Comme nts POCT GLU (test code = 2297397726) 81 mg/dL 70-110 Lab Interpretation (test cod e = 52634-0) Normal [facility] GLUCOSE (AUTOMATED)2024-08-24 02:33:07* Test Item Value Reference Range Interpretation Comme nts POCT GLU (test code = 2513806661) 104 mg/dL 70-110 Lab Interpretation (test cod e = 13369-1) Normal [facility] GLUCOSE (AUTOMATED)2024-08-24 01:43:39* Test Item Value Reference Range Interpretation Comme nts POCT GLU (test code = 5439364080) 91 mg/dL 70-110 Lab Interpretation (test cod e = 38518-1) Normal [facility] GLUCOSE (AUTOMATED)2024-08-24 00:29:59* Test Item Value Reference Range Interpretation Comme nts POCT GLU (test code = 2299677244) 86 mg/dL 70-110 Lab Interpretation (test cod e = 90533-2) Normal [facility] GLUCOSE (AUTOMATED)2024-08-23 23:40:37* Test Item Value Reference Range Interpretation Comme nts POCT GLU (test code = 6690359737) 107 mg/dL 70-110 Lab Interpretation (test cod e = 81174-6) Normal [facility] GLUCOSE (AUTOMATED)2024-08-23 23:19:03* Test Item Value Reference Range Interpretation Comme nts POCT GLU (test code = 8442998794) 105 mg/dL 70-110 Lab Interpretation (test cod e = 39105-3) Normal [facility] GLUCOSE (AUTOMATED)2024-08-23 22:17:36* Test Item Value Reference Range Interpretation Comme nts POCT GLU (test code = 7763632508) 77 mg/dL 70-110 Lab Interpretation (test cod e = 70133-1) Normal [facility] GLUCOSE (AUTOMATED)2024-08-23 21:24:08* Test Item Value Reference Range Interpretation Comme nts POCT GLU (test code = 6996738009) 70 mg/dL 70-110 Lab Interpretation (test cod e = 12896-6) Normal [facility] GLUCOSE (AUTOMATED)2024-08-23 20:19:04* Test Item Value Reference Range Interpretation Comme nts POCT GLU (test code = 0169142635) 109 mg/dL 70-110 Lab Interpretation (test cod e = 52451-3) Normal [facility] GLUCOSE (AUTOMATED)2024-08-23 19:30:02* Test Item Value Reference Range Interpretation Comme nts POCT GLU (test code = 0283878472) 134 mg/dL 70-110 H Lab Interpretation (test cod e = 86516-9) Abnormal [facility] GLUCOSE (AUTOMATED)2024-08-23 17:00:32* Test Item Value Reference Range Interpretation Comme nts POCT GLU (test code = 0792147919) 119 mg/dL 70-110 H Lab Interpretation (test cod e = 85426-1) Abnormal [facility] Glucose (Age >30 Days)2024-08-23 16:05:00 * Test Item Value Reference Range Interpretation Comme nts POCT Glu (age>30days) (test code = 3342) 123 mg/dL 70-110 A ED provider informed Lab Interpretation (test code = 53845-1) Abnormal [facility] GLUCOSE(AGE >30DAYS)2024-08-23 15:55:00* Test Item Value Reference Range Interpretation Comme nts Lab Interpretation (test cod e = 37937-6) Normal [facility] GLUCOSE (AUTOMATED)2024-08-23 15:51:32* Test Item Value Reference Range Interpretation Comme nts POCT GLU (test code = 4434251201) 38 mg/dL 70-110 LL Lab Interpretation (test cod e = 29388-4) Abnormal [facility]. Metabolic Panel (11745)2024-08-23 15:18:48* Test Item Value Reference Range Interpretation Comme nts NA (test code = 4680697273) 136 mmol/L 135-145 K (test code = 4400930588) 3.6 mmol/L 3.5-5.0 CL (test code = 0108898923) 106 mmol/L 98-108 CO2 TOTAL (test code = 2179666237) 19 mmol/L 23-31 L AGAP (test code = 3644611563) 11 2-16 BUN (test code = 0603778447) 54 mg/dL 7-23 H GLUCOSE (test code = 4126529986) 56 mg/dL 70-110 L CREATININE (test code = 2160-0) 1.51 mg/dL 0.60-1.25 H TOTAL BILI (test code = 3011230297) 0.4 mg/dL 0.1-1.1 CALCIUM (test code = 0053677150) 9.0 mg/dL 8.6-10.6 T PROTEIN (test code = 6802670507) 7.4 g/dL 6.3-8.2 ALBUMIN (test code = 6145462282) 4.3 g/dL 3.5-5.0 ALK PHOS (test code = 3469817085) 85 U/L 34-122 ALTv (test code = 1742-6) 24 U/L 5-50 AST(SGOT) (test code = 5389211824) 22 U/L 13-40 eGFR (test code = 35983-2) 49.4 mL/min/1.73m2 CKD-EPI eGFR (2020). Assuming creatinine has been stable day-to-day for at least three months, the eGFR indicates Category G3a (45 - 59 mL/min/1.73 m2) Lab Interpretation (test code = 72336-1) Abnormal [facility] with Pquz1242-42-58 14:58:25* Test Item Value Reference Range Interpretation [...] 32.5 g/dL 31.2-35.0 RDW-SD (test code = 89985-5) 47.4 fL 38.5-51.6 RDW-CV (test code = 788-0) 14.5 % 12.1-15.4 PLT (test code = 777-3) 251 150-328 MPV (test code = 31696-6) 9.6 fL 9.8-13.0 L NRBC/100 WBC (test code = 9713416242) 0.0 0.0-10.0 NRBC x10^3 (test code = 3510957181) See_Comment [Automated message] The system which generated this result transmitted reference range: 10*3/?L. The reference range was not used to interpret this result as normal/abnormal. GRAN MAT (NEUT) % (test code = 770-8) 88.2 % IMM GRAN % (test code = 7785353085) 0.90 % LYMPH % (test code = 736-9) 4.8 % MONO % (test code = 5905-5) 5.8 % EOS % (test code = 713-8) 0.0 % BASO % (test code = 706-2) 0.3 % GRAN MAT x10^3(ANC) (test code = 3656730377) 10.04 10*3/uL 1.99-6.95 H IMM GRAN x10^3 (test code = 6267175616) 0.10 10*3/uL 0.00-0.06 H LYMPH x10^3 (test code = 731-0) 0.55 10*3/uL 1.09-3.23 L MONO x10^3 (test code = 742-7) 0.66 10*3/uL 0.36-1.02 EOS x10^3 (test code = 711-2) 0.06-0.53 L BASO x10^3 (test code = 704-7) 0.03 10*3/uL 0.01-0.09 Lab Interpretation (test code = 33961-1) [facility] 14:57:59* Test Item Value Reference Range Interpretation Comme nts POCT GLU (test code = 8582623562) 78 mg/dL 70-110 Lab Interpretation (test cod e = 13512-3) Normal [facility]VCOOX+NA+K+GLU+CA2+2024-08-23 14:47:11* Test Item Value Reference Range Interpretation Comme nts PH (test code = 7358813198) 7.26 7.32-7.42 L PCO2 TATAINA (test code = 2481396175) 51 41-51 PO2 TATIANA (test code = 4581887332) 21 25-40 L HCO3 TATIANA (test code = 4301062764) 22 24-28 L AC VBE(BEAKER) (test code = 1109677489) -5.2 mEq/L THB TATIANA (test code = 7872546808) 12.4 g/dL 13.5-18.0 L %O2HB TATIANA (test code = 2678596012) 33.0 % 52.0-63.0 L %COHB T[place]NA (test code = 8565605036) 0.1 % 0.0-1.5 %METHB [place] (test code = 1748894680) 1.1 % 0.4-1.5 VOL%O2 TATIANA (test code = 2733781480) 5.8 % 6.0-12.0 L NA (test code = 9752204632) 136 mmol/L 135-145 K+ (test code = 9028856422) 3.8 mmol/L 3.5-5.0 AC CA IONZ (test code = 2473900928) 5.00 mg/dL 4.50-5.30 GLUCOSE (test code = 0260545724) 46 mg/dL 70-110 LL Lab Interpretation (test cod e = 09317-3) Abnormal [facility] CenterLanyic Acid Whole Ntyfl7696-30-20 14:45:07* Test Item Value Reference Range Interpretation Comme nts LACTIC ACID (test code = 2347886168) 1.25 mmol/L 0.50-2.20 Lab Interpretation (test cod e = 58423-7) Normal [facility] GLUCOSE (AUTOMATED)2024-08-23 14:38:03* Test Item Value Reference Range Interpretation Comme nts POCT GLU (test code = 7523343761) 57 mg/dL 70-110 L Lab Interpretation (test cod e = 26030-0) Abnormal [facility] GLUCOSE (AUTOMATED)2024-08-23 14:18:02* Test Item Value Reference Range Interpretation Comme nts POCT GLU (test code = 2609979512) 40 mg/dL 70-110 LL Lab Interpretation (test cod e = 63497-8) Abnormal [facility] GLUCOSE (AUTOMATED)2024-07-01 21:27:12* Test Item Value Reference Range Interpretation Comme nts POCT GLU (test code = 6586536038) 189 mg/dL 70-110 H Lab Interpretation (test cod e = 96731-7) Abnormal [facility] GLUCOSE (AUTOMATED)2024-07-01 17:43:43* Test Item Value Reference Range Interpretation Comme nts POCT GLU (test code = 9297241222) 252 mg/dL 70-110 H Lab Interpretation (test cod e = 54130-2) [facility]2024-07-01 13:20:21* Test Item Value Reference Range Interpretation Comme nts POCT GLU (test code = 7614463800) 157 mg/dL 70-110 H Lab Interpretation (test cod e = 86243-6) [facility]normal [facility]2024-07-01 00:48:27* Test Item Value Reference Range Interpretation Comme nts POCT GLU (test code = 3056330974) 202 mg/dL 70-110 H Lab Interpretation (test cod e = 85941-0) Abnormal [facility] GLUCOSE (AUTOMATED)2024-06-30 21:25:25* Test Item Value Reference Range Interpretation Comme nts POCT GLU (test code = 6286435198) 214 mg/dL 70-110 H Lab Interpretation (test cod e = 93091-4) Abnormal [facility] GLUCOSE (AUTOMATED)2024-06-30 16:15:38* Test Item Value Reference Range Interpretation Comme nts POCT GLU (test code = 8587437312) 294 mg/dL 70-110 H Lab Interpretation (test cod e = 33088-3) [facility]normal [facility]2024-06-30 12:52:21* Test Item Value Reference Range Interpretation Comme nts POCT GLU (test code = 9305294604) 143 mg/dL 70-110 H Lab Interpretation (test cod e = 26635-4) [facility]normal [facility]2024-06-30 02:04:07* Test Item Value Reference Range Interpretation Comme nts POCT GLU (test code = 6712234317) 270 mg/dL 70-110 H Lab Interpretation (test cod e = 31627-3) [facility]normal [facility]2024-06-29 21:21:05* Test Item Value Reference Range Interpretation Comme nts POCT GLU (test code = 1684434773) 154 mg/dL 70-110 H Lab Interpretation (test cod e = 96141-9) Abnormal [facility] GLUCOSE (AUTOMATED)2024-06-29 16:43:53* Test Item Value Reference Range Interpretation Comme nts POCT GLU (test code = 3176284214) 246 mg/dL 70-110 H Lab Interpretation (test cod e = 05510-3) Abnormal [facility] GLUCOSE (AUTOMATED)2024-06-29 12:45:39* Test Item Value Reference Range Interpretation Comme nts POCT GLU (test code = 3558235840) 242 mg/dL 70-110 H Lab Interpretation (test cod e = 77557-7) Abnormal [facility] GLUCOSE (AUTOMATED)2024-06-29 02:41:42* Test Item Value Reference Range Interpretation Comme nts POCT GLU (test code = 9408835365) 218 mg/dL 70-110 H Lab Interpretation (test cod e = 28872-0) Abnormal [facility] GLUCOSE (AUTOMATED)2024-06-28 22:50:05* Test Item Value Reference Range Interpretation Comme nts POCT GLU (test code = 2580161869) 162 mg/dL 70-110 H Lab Interpretation (test cod e = 28766-3) Abnormal [facility] GLUCOSE (AUTOMATED)2024-06-28 21:57:09* Test Item Value Reference Range Interpretation Comme nts POCT GLU (test code = 8201714958) 121 mg/dL 70-110 H Lab Interpretation (test cod e = 61666-0) Abnormal [facility] GLUCOSE (AUTOMATED)2024-06-28 16:58:11* Test Item Value Reference Range Interpretation Comme nts POCT GLU (test code = 5026688986) 255 mg/dL 70-110 H Lab Interpretation (test cod e = 25164-4) Abnormal [facility] GLUCOSE (AUTOMATED)2024-06-28 13:03:41* Test Item Value Reference Range Interpretation Comme nts POCT GLU (test code = 0022883293) 152 mg/dL 70-110 H Lab Interpretation (test cod e = 81644-8) Abnormal [facility] GLUCOSE (AUTOMATED)2024-06-28 05:08:20* Test Item Value Reference Range Interpretation Comme nts POCT GLU (test code = 1625158223) 195 mg/dL 70-110 H Lab Interpretation (test cod e = 31372-0) Abnormal [facility] GLUCOSE (AUTOMATED)2024-06-28 02:11:33* Test Item Value Reference Range Interpretation [facility]me [facility] (test code = 1977229393) 321 mg/dL 70-110 H Lab Interpretation (test cod e = 34103-6) Abnormal [facility] CenterXR CHEST 1 [id number] 22:39:10ORDERING PHYSICIAN: JOVANNA SANDRA. HISTORY: L PICC placement TECHNIQUE: AP COMPARISON: 06/19/2024 radiograph report FINDINGS: Lungs: ?A left PICC line terminates at the cavoatrial junction. Lungs areclear. Pleura: ?No effusion or pleural disease is seen. ?No pneumothorax. Mediastinum/Daysi: ?No massesor adenopathy. Heart: ?The heart is not enlarged. Other: ?No acute osseous abnormality is seen.[facility]2024-06-27 21:59:58* Test Item Value Reference Range Interpretation Comme [facility] PO[facility]U (test code = 3241607479) 196 mg/dL 70-110 H Lab Interpretation (test cod e = 03892-0) Abnormal [facility] CenterTrans[facility] echo (RAYMOND)2024-06-27 21:33:03 * Test Item Value Reference Range Interpretation Comme nts Height (test code = 4700898366) 70 in Weight (test code = 7897081693) 195 lbs Systolic BP (test code = 4779728680) 124 mmHg Diastolic BP (test code = 8777618343) 63 mmHg Heart Rate (test code = 7910348309) 64 bpm BSA (test code = 3833734458) 2.06 m2 Radiology Study observation (narrative) (test code = 60794-3) RJ (test code = RJ) ?Left?Ventricle: Left [...] shunt. The probe was inserted by the tankman. There was no probe insertion difficulty.There were 1 attempts to insert the probe. Probe in 1216. Probe out 1229. Sedation and monitoring provided by anesthesia, see Epic documentation. There were no complications during the procedure. [facility] GLUCOSE (AUTOMATED)2024-06-27 19:49:24* Test Item Value Reference Range Interpretation Comme nts POCT GLU (test code = 8824735935) 184 mg/dL 70-110 H Lab Interpretation (test cod e = 11519-2) Abnormal [facility] GLUCOSE (AUTOMATED)2024-06-27 16:43:02* Test Item Value Reference Range Interpretation Comme nts POCT GLU (test code = 0200398912) 172 mg/dL 70-110 H Lab Interpretation (test cod e = 71951-2) Abnormal [facility] GLUCOSE (AUTOMATED)2024-06-27 14:14:12* Test Item Value Reference Range Interpretation Comme nts POCT GLU (test code = 1398904497) 131 mg/dL 70-110 H Lab Interpretation (test cod e = 64089-6) Abnormal [facility] GLUCOSE (AUTOMATED)2024-06-27 13:27:58* Test Item Value Reference Range Interpretation Comme nts POCT GLU (test code = 5714248737) 135 mg/dL 70-110 H Lab Interpretation (test cod e = 90687-2) Abnormal [facility] GLUCOSE (AUTOMATED)2024-06-27 01:38:29* Test Item Value Reference Range Interpretation Comme nts POCT GLU (test code = 8672296440) 125 mg/dL 70-110 H Lab Interpretation (test cod e = 02816-0) Abnormal [facility] GLUCOSE (AUTOMATED)2024-06-26 22:04:43* Test Item Value Reference Range Interpretation Comme nts POCT GLU (test code = 5746748165) 195 mg/dL 70-110 H Lab Interpretation (test cod e = 60648-6) Abnormal [facility] GLUCOSE (AUTOMATED)2024-06-26 17:27:34* Test Item Value Reference Range Interpretation Comme nts POCT GLU (test code = 1835961224) 181 mg/dL 70-110 H Lab Interpretation (test cod e = 69375-3) Abnormal [facility] GLUCOSE (AUTOMATED)2024-06-26 13:21:13* Test Item Value Reference Range Interpretation Comme nts POCT GLU (test code = 8680757721) 109 mg/dL 70-110 Lab Interpretation (test cod e = 07186-3) Normal [facility] GLUCOSE (AUTOMATED)2024-06-26 02:30:05* Test Item Value Reference Range Interpretation Comme nts POCT GLU (test code = 9888599502) 146 mg/dL 70-110 H Lab Interpretation (test cod e = 42641-9) Abnormal [facility] GLUCOSE (AUTOMATED)2024-06-25 21:46:31* Test Item Value Reference Range Interpretation Comme nts POCT GLU (test code = 3466507905) 99 mg/dL 70-110 Lab Interpretation (test cod e = 84351-8) Normal [facility] GLUCOSE (AUTOMATED)2024-06-25 16:57:02* Test Item Value Reference Range Interpretation Comme nts POCT GLU (test code = 9565828994) 147 mg/dL 70-110 H Lab Interpretation (test cod e = 98809-9) Abnormal [facility] [facility]-25 13:21:57* Test Item Value Reference Range Interpretation Comme nts POCT GLU (test code = 3648030625) 123 mg/dL 70-110 H Lab Interpretation (test cod e = 66272-3) Abnormal [facility] GLUCOSE (AUTOMATED)2024-06-25 00:59:00* Test Item Value Reference Range Interpretation Comme nts POCT GLU (test code = 1132281484) 144 mg/dL 70-110 H Lab Interpretation (test cod e = 06190-4) Abnormal [facility] GLUCOSE (AUTOMATED)2024-06-24 22:08:33* Test Item Value Reference Range Interpretation Comme nts POCT GLU (test code = 4006454600) 162 mg/dL 70-110 H Lab Interpretation (test cod e = 72976-7) Abnormal [facility] GLUCOSE (AUTOMATED)2024-06-24 17:10:12* Test Item Value Reference Range Interpretation Comme nts POCT GLU (test code = 2184032498) 187 mg/dL 70-110 H Lab Interpretation (test cod e = 78025-3) Abnormal [facility] GLUCOSE (AUTOMATED)2024-06-24 13:28:01* Test Item Value Reference Range Interpretation Comme nts POCT GLU (test code = 5430107658) 160 mg/dL 70-110 H Lab Interpretation (test cod e = 81072-5) Abnormal [facility] GLUCOSE (AUTOMATED)2024-06-24 01:00:38* Test Item Value Reference Range Interpretation Comme nts POCT GLU (test code = 9990922843) 95 mg/dL 70-110 Lab Interpretation (test cod e = 54532-4) [facility].2024-06-23 22:45:24* Test Item Value Reference Range Interpretation Comme nts PH (test code = 2) 7.42 7.35-7.45 PCO2 (test code = 8985004457) 42 35-45 PO2 (test code = 0915460583) 90 80-100 HCO3 (test code = 9824686377) 27 22-26 H BE (test code = 6422747839) 2.3 -3.0-3.0 Lab Interpretation (test cod e = 97851-3) Abnormal [facility] CenterTransthoracic echo (TTE) [id number] 22:12:07* Test Item Value Reference Range Interpretation Comme nts Height (test code = 2808906209) 70 in Weight (test code = 5451145874) 202 lbs Systolic BP (test code = 5945321748) 187 mmHg Diastolic BP (test code = 9879500645) 89 mmHg Heart Rate (test code = 9599798653) 84 bpm LV GLS Endo Peak A2C () (test code = 7188107534) -22.00 % LV GLS Endo Peak A3C () (test code = 7493732413) -20.60 % LV GLS Endo Peak A4C () (test code = 9951951784) -24.20 % LV GLS Endo Peak Avg () (test code = 2279909387) -22.30 % BSA (test code = 5754695079) 2.10 m2 Ao root diam (test code = 7164096544) 4.10 cm Aortic root (test code = 8566576770) 4.1 cm Ao root annulus (test code = 0184296360) 4.1 cm LVOT diameter (test code = 2191168754) 2.02 cm LVOT area (test code = 1625887552) 3.20 cm2 LA size (test code = 9439123866) 2.9 cm LVIDD (test code = 9975462124) 4.20 cm Left Ventricular End Diastolic Volume by Teichholz Method (test code = 1495575) 77.8 mL IVS (test code = 5729041900) 0.97 cm Interventricular Septum Diastolic Thickness by 2D (test code = 0768253) 0.97 cm LVPWD (test code = 5721989903) 0.99 cm PW (test code = 6835174439) 0.99 cm 0.6-1.1 EF(Teich) (test code = 8224671903) 63.90 % LVIDS (test code = 4240498862) 2.70 cm Left Ventricular End Systolic Volume by Teichholz Method (test code = 4725839) 28.1 mL FS (test code = 2252780835) 34 % EF - 2D (test code = 19892101) 63.90 % LAV(MOD-sp4) (test code = 0480897873) 70.90 mL E wave decelartion time (test code = 4062558750) 0.25 s MV Peak A Delfino (test code = 2864342505) 117.4 cm/s MV stenosis pressure 1/2 time (test code = 6095952758) 71.2 ms MV Prop V (test code = 5740414259) 40.80 cm/s MV E/e' septal (test code = 7948325258) 8.2 cm/s Tapse (test code = 3060535800) 2.09 cm LVOT stroke volume (test code = 9940760428) 94.10 cm3 LVOT peak delfino (test code = 9919305669) 126.8 cm/s LVOT mn grad (test code = 3792859246) 3.4 mmHg AV LVOT peak gradient (test code = 0651853582) 6.4 mmHg LVOT peak VTI (test code = 9515105009) 29.4 cm LV V1 mean (test code = 5711773273) 87.90 cm/s Aortic valve mean velocity (test code = 2939508030) 102.8 cm/s Ao peak delfino (test code = 9170226455) 154.7 cm/s Ao VTI (test code = 2557252681) 32.2 cm AV area by cont VTI (test code = 4638996260) 2.9 cm2 AV area peak delfino (test code = 8924055627) 2.6 cm2 Ao max PG (test code = 7653842220) 9.60 mm[Hg] AV peak gradient (test code = 4842337555) 9.6 mmHg AV valve area (test code = 7578776480) 2.90 cm2 AV mean gradient (test code = 0263986631) 4.7 mmHg Radiology Study observation (narrative) (test code = 72289-4) RJ (test code = RJ) ?Left?Ventricle: Left [...] flow Doppler, spectral Doppler and strain. [facility]2024-06-23 22:04:17* Test Item Value Reference Range Interpretation Comme [facility] (test code = 6913831715) 120 mg/dL 70-110 H Lab Interpretation (test cod e = 93848-0) Abnormal [facility] CenterGlycosylated Hemoglobin (A1C)2024-06-23 19:21:32* Test Item Value Reference Range Interpretation Comme [facility] HGB A1C (test code = 4548-4) 7.5 % 4.0-5.7 H RJ (test code = RJ) Reference RangesNormal: <5.7%Prediabetes: 5.7 - 6.4%Diabetes: > 6.5% Lab Interpretation (test code = 98823-8) Abnormal [facility] CERVICAL SPINE WO [id number] 18:09:29CT CERVICAL SPINE WO CONTRAST HISTORY: ?Neck [...] notable at C5-C7. The prevertebral soft tissues areunremarkable.[facility] HEAD WO TTGPPRHH8476-59-77 18:05:47EXAM: CT HEAD WO CONTRAST HISTORY: 69 [...] contusion/small hematoma. calvarium and central skullbase are unremarkable.[facility] CenterTroponin I 2024-06-23 17:58:20* Test Item Value Reference Range Interpretation Comme [facility] TROPONIN I (test code = 5691201531) <=0.034 RJ (test code = RJ) Reference [...] of biotin. Lab Interpretation (test code = 56534-5) Normal [facility] CenterN-Terminal Gzu-Sdx1069-24-01 17:55:37* Test Item Value Reference Range Interpretation Comme [facility] NT-proBNP (test code = 65694-1) 257 pg/mL <=125 RJ (test code = RJ) Result Indeterminate-Consid er causes of NT-proBNP elevation other than Heart failure such as acute coronary syndrome, pulmonary embolism, pulmonary hypertension, sepsis, stroke, and renal dysfunction. Lab Interpretation (test code = 71719-1) Abnormal [facility] CenterProthrombin Time / [id number] 17:48:39* Test Item Value Reference Range Interpretation Comme nts PROTIME PATIENT (test code = 5964-2) 12.8 10.1-12.6 H INR (test code = 6301-6) 1.1 Normal INR <1.1; Warfarin Therapeutic range 2.0 to 3.0 or 2.5 to 3.5, depending upon the indications. Lab Interpretation (test code = 10511-7) Abnormal [facility] CenterActivated Partial Thrmplas Han7199-05-23 17:48:39* Test Item Value Reference Range Interpretation Comme [facility] APTT Patient (test code = 3173-2) 32 26-36 RJ (test code = RJ) The [facility] patient population mean normal value for aPTT is 30 seconds. Lab Interpretation (test code = 58360-6) Normal [facility] CenterComp. Metabolic Panel (84084)2024-06-23 17:46:57* Test Item Value Reference Range Interpretation Comme [facility] NA (test code = 8443119708) 139 mmol/L 135-145 K (test code = 5135529957) 3.5 3.5-5.0 CL (test code = 6368310997) 102 mmol/L 98-108 CO2 TOTAL (test code = 0598535616) 27 mmol/L 23-31 AGAP (test code = 8933711083) 10 2-16 BUN (test code = 5539272135) 25 mg/dL 7-23 H GLUCOSE (test code = 8981492301) 242 mg/dL 70-110 H CREATININE (test code = 2160-0) 1.00 mg/dL 0.60-1.25 TOTAL BILI (test code = 6707134713) 0.5 mg/dL 0.1-1.1 CALCIUM (test code = 4770637083) 8.8 mg/dL 8.6-10.6 T PROTEIN (test code = 6176226812) 7.3 g/dL 6.3-8.2 ALBUMIN (test code = 8875353766) 3.9 g/dL 3.5-5.0 ALK PHOS (test code = 1263233927) 141 U/L 34-122 H ALTv (test code = 1742-6) 16 U/L 5-50 AST(SGOT) (test code = 6181120278) 24 U/L 13-40 eGFR (test code = 26723-3) 81.0 mL/min/1.73m2 CKD-EPI eGFR (2020). Assuming creatinine has been stable day-to-day for at least three months, the eGFR indicates Category G2 (60 - 89 mL/min/1.73 m2) Lab Interpretation (test code = 61890-4) Abnormal [facility] with Tgiu4492-50-74 17:38:39* Test Item Value Reference Range Interpretation [...] 31.6 g/dL 31.2-35.0 RDW-SD (test code = 21025-4) 44.2 fL 38.5-51.6 RDW-CV (test code = 788-0) 13.5 % 12.1-15.4 PLT (test code = 777-3) 346 150-328 H MPV (test code = 59359-3) 9.4 fL 9.8-13.0 L NRBC/100 WBC (test code = 0193736914) 0.0 0.0-10.0 NRBC x10^3 (test code = 0475344158) See_Comment [Automated [employer]] The system which generated this result transmitted reference range: 10*3/?L. The reference range was not used to interpret this result as normal/abnormal. GRAN MAT (NEUT) % (test code = 770-8) 74.6 % IMM GRAN % (test code = 6883054978) 1.00 % LYMPH % (test code = 736-9) 15.2 % MONO % (test code = 5905-5) 7.7 % EOS % (test code = 713-8) 1.2 % BASO % (test code = 706-2) 0.3 % GRAN MAT x10^3(ANC) (test code = 6707828398) 6.71 10*3/uL 1.99-6.95 IMM GRAN x10^3 (test code = 2679560031) 0.09 10*3/uL 0.00-0.06 H LYMPH x10^3 (test code = 731-0) 1.37 10*3/uL 1.09-3.23 MONO x10^3 (test code = 742-7) 0.69 10*3/uL 0.36-1.02 EOS x10^3 (test code = 711-2) 0.11 10*3/uL 0.06-0.53 BASO x10^3 (test code = 704-7) 0.03 10*3/uL 0.01-0.09 Lab Interpretation (test code = 06410-8) Abnormal [facility] CenterLactic Acid Whole Ypaey1929-10-20 17:16:12* Test Item Value Reference Range Interpretation Comme nts LACTIC ACID (test code = 7908539523) 1.94 mmol/L 0.50-2.20 Lab Interpretation (test cod e = 48995-6) Normal [facility] CenterBLOOD CULTURE [id number] 13:27:56* Test Item Value Reference Range Interpretation Comme nts Blood Culture-Aerobic (test code = 17641-9) Culture positive. See Blood Culture Workup for additional information. No growth AA Previous preliminary verified result was Order in Process on 06/19/2024 at 1801 CDT Blood Culture-Anaerobic (test code = 12216-8) Culture positive. See Blood Culture Workup for additional information. No growth AA Previous preliminary verified result was Order in Process on 06/19/2024 at 1801 CDT Lab Interpretation (test code = 14376-8) Abnormal [facility] CenterGRAM POSITIVE BLOOD PATHOGENS DNA [id number]-[id number] 19:17:54* Test Item Value Reference Range Interpretation Comments Staphylococcus aureus (test code = 61613-8) Positive Negative A mecA (test code = 07485-1) Positive Negative A RJ (test code = RJ) MRSA detected by DNA probe. ?See blood culture result for additionalsusceptibility testing information. Preferred therapy for MRSA bacteremia is vancomycin. Infectious Diseases consultation is recommended. Please contact the Antimicrobial Stewardship Program with questions.[facility] Pager: ?[phone] See blood culture result for additional information. Testing included eleven identification and three resistancemarker targets. Lab Interpretation (test code = 63442-1) Abnormal [facility] GLUCOSE (AUTOMATED)2024-06-19 21:59:53* Test Item Value Reference Range Interpretation Comme nts POCT GLU (test code = 1453411986) 93 mg/dL 70-110 Lab Interpretation (test cod e = 72089-6) Normal [facility] GLUCOSE (AUTOMATED)2024-06-19 21:29:59* Test Item Value Reference Range Interpretation Comme nts POCT GLU (test code = 2984025185) 58 mg/dL 70-110 L Lab Interpretation (test cod e = 34202-2) Abnormal [facility] CenterN-Terminal Fue-Vob7752-31-28 20:03:23* Test Item Value Reference Range Interpretation Comme nts NT-proBNP (test code = 38634-1) 269 pg/mL <=125 RJ (test code = RJ) Result Indeterminate-Consid er causes of NT-proBNP elevation other than Heart failure such as acute coronary syndrome, pulmonary embolism, pulmonary hypertension, sepsis, stroke, and renal dysfunction. Lab Interpretation (test code = 25601-6) Abnormal [facility]. Metabolic Panel (90707)2024-06-19 19:54:20* Test Item Value Reference Range Interpretation Comme nts NA (test code = 1868748297) 139 mmol/L 135-145 K (test code = 7447814829) 3.7 mmol/L 3.5-5.0 CL (test code = 3445249367) 104 mmol/L 98-108 CO2 TOTAL (test code = 5998925074) 29 mmol/L 23-31 AGAP (test code = 7214221890) 6 2-16 BUN (test code = 4849080838) 20 mg/dL 7-23 GLUCOSE (test code = 5748849277) 70 mg/dL 70-110 CREATININE (test code = 2160-0) 0.94 mg/dL 0.60-1.25 TOTAL BILI (test code = 2725172669) 1.0 mg/dL 0.1-1.1 CALCIUM (test code = 3639367611) 8.9 mg/dL 8.6-10.6 T PROTEIN (test code = 3551568475) 7.1 g/dL 6.3-8.2 ALBUMIN (test code = 6574697243) 3.5 g/dL 3.5-5.0 ALK PHOS (test code = 0822320493) 136 U/L 34-122 H ALTv (test code = 1742-6) 14 U/L 5-50 AST(SGOT) (test code = 2844535199) 29 U/L 13-40 eGFR (test code = 30836-2) 87.2 mL/min/1.73m2 CKD-EPI eGFR (2020). Assuming creatinine has been stable day-to-day for at least three months, the eGFR indicates Category G2 (60 - 89 mL/min/1.73 m2) Lab Interpretation (test code = 49160-8) Abnormal [facility] CenterXR CHEST 1 [id number] 19:34:26PROCEDURE: XR CHEST 1 06/19/2024 2:07 PM CLINICAL INDICATION: hallucination COMPARISON: Radiograph of 04/03/2023 for FINDINGS: The lungs are hypoventilated which results and crowding of bronchovascularbundles. No lung consolidation. There is no pleural effusion. ?Nopneumothorax. The cardiac size is normal. No aggressive osseous lesion.[facility] CenterCbc with Gfcv3401-77-03 19:29:38* Test Item Value Reference Range Interpretation [...] 32.7 g/dL 31.2-35.0 RDW-SD (test code = 25797-5) 43.8 fL 38.5-51.6 RDW-CV (test code = 788-0) 13.5 % 12.1-15.4 PLT (test code = 777-3) 300 150-328 MPV (test code = 98280-0) 9.5 fL 9.8-13.0 L NRBC/100 WBC (test code = 3980483494) 0.0 0.0-10.0 NRBC x10^3 (test code = 9702797730) See_Comment [Automated messa ge] The system which generated this result transmitted reference range: 10*3/?L. The reference range was not used to interpret this result as normal/abnormal. GRAN MAT (NEUT) % (test code = 770-8) 76.5 % IMM GRAN % (test code = 2724615783) 0.70 % LYMPH % (test code = 736-9) 12.6 % MONO % (test code = 5905-5) 8.4 % EOS % (test code = 713-8) 1.4 % BASO % (test code = 706-2) 0.4 % GRAN MAT x10^3(ANC) (test code = 5661638477) 6.95 10*3/uL 1.99-6.95 IMM GRAN x10^3 (test code = 1883397973) 0.06 10*3/uL 0.00-0.06 LYMPH x10^3 (test code = 731-0) 1.14 10*3/uL 1.09-3.23 MONO x10^3 (test code = 742-7) 0.76 10*3/uL 0.36-1.02 EOS x10^3 (test code = 711-2) 0.13 10*3/uL 0.06-0.53 BASO x10^3 (test code = 704-7) 0.04 10*3/uL 0.01-0.09 Lab Interpretation (test code = 91164-5) Abnormal [facility] CenterLactic Acid Whole Arxkc4462-32-24 19:15:48* Test Item Value Reference Range Interpretation Comme nts LACTIC ACID (test code = 9144541040) 1.12 mmol/L 0.50-2.20 Lab Interpretation (test cod e = 36899-6) Normal [facility] CenterCT HEAD WO [id number] 00:30:51FULL RESULT: Examination: CT HEAD WO CONTRAST on 06/16/2024 7:03 PM Clinical Indication: Daily fallsComparison: 06/15/2024, 24 hour prior Technique: Noncontrast imaging was obtained from base to vertex. Findings: Relative to the previous day's exam, there is no interval changeand no evidence of hemorrhage or other acute or traumatic lesion.[facility]. Metabolic Panel (01155)2024-06-16 00:49:02* Test Item Value Reference Range Interpretation Comme nts NA (test code = 0689250732) 136 mmol/L 135-145 K (test code = 2014560840) 4.2 mmol/L 3.5-5.0 CL (test code = 2975973778) 103 mmol/L 98-108 CO2 TOTAL (test code = 0113538413) 28 mmol/L 23-31 AGAP (test code = 7876276556) 5 2-16 BUN (test code = 5300565606) 21 mg/dL 7-23 GLUCOSE (test code = 1077781800) 88 mg/dL 70-110 CREATININE (test code = 2160-0) 0.97 mg/dL 0.60-1.25 TOTAL BILI (test code = 6412897174) 1.0 mg/dL 0.1-1.1 CALCIUM (test code = 6349014975) 8.6 mg/dL 8.6-10.6 T PROTEIN (test code = 2015290730) 6.8 g/dL 6.3-8.2 ALBUMIN (test code = 8632686956) 3.4 g/dL 3.5-5.0 L ALK PHOS (test code = 8111899278) 141 U/L 34-122 H ALTv (test code = 1742-6) 14 U/L 5-50 AST(SGOT) (test code = 9220756556) 23 U/L 13-40 eGFR (test code = 72964-4) 84.0 mL/min/1.73m2 CKD-EPI eGFR (2020). Assuming creatinine has been stable day-to-day for at least three months, the eGFR indicates Category G2 (60 - 89 mL/min/1.73 m2) Lab Interpretation (test code = 82065-1) Abnormal [facility] CenterD-Svldb0180-45-15 00:45:25* Test Item Value Reference Range Interpretation Comments D-DIMER (test code = 2049895668) 1.38 See_Comment H [Automated message] The system [...] a diagnosis. Lab Interpretation (test code = 20096-6) Abnormal [facility] CenterCbc with Ivnk2322-15-04 00:34:02* Test Item Value Reference Range Interpretation [...] 33.1 g/dL 31.2-35.0 RDW-SD (test code = 11705-6) 43.0 fL 38.5-51.6 RDW-CV (test code = 788-0) 13.2 % 12.1-15.4 PLT (test code = 777-3) 241 150-328 MPV (test code = 41808-7) 9.6 fL 9.8-13.0 L NRBC/100 WBC (test code = 1243196243) 0.0 0.0-10.0 NRBC x10^3 (test code = 3304561730) See_Comment [Automated messa ge] The system which generated this result transmitted reference range: 10*3/?L. The reference range was not used to interpret this result as normal/abnormal. GRAN MAT (NEUT) % (test code = 770-8) 77.2 % IMM GRAN % (test code = 0999169380) 0.40 % LYMPH % (test code = 736-9) 11.2 % MONO % (test code = 5905-5) 10.1 % EOS % (test code = 713-8) 0.9 % BASO % (test code = 706-2) 0.2 % GRAN MAT x10^3(ANC) (test code = 9182586007) 8.18 10*3/uL 1.99-6.95 H IMM GRAN x10^3 (test code = 0323727955) 0.04 10*3/uL 0.00-0.06 LYMPH x10^3 (test code = 731-0) 1.18 10*3/uL 1.09-3.23 MONO x10^3 (test code = 742-7) 1.07 10*3/uL 0.36-1.02 H EOS x10^3 (test code = 711-2) 0.09 10*3/uL 0.06-0.53 BASO x10^3 (test code = 704-7) 0.01-0.09 Lab Interpretation (test code = 05853-7) Abnormal [facility] CenterLactic Acid Whole Exuav2268-50-05 00:22:09* Test Item Value Reference Range Interpretation Comme nts LACTIC ACID (test code = 6867670055) 1.33 mmol/L 0.50-2.20 Lab Interpretation (test cod e = 03807-0) Normal [facility] HEAD WO [id number] 23:53:17EXAM: CT HEAD WO CONTRAST HISTORY: 69 [...] clear. The calvariumand central skull base are unremarkable.[facility] GLUCOSE (AUTOMATED)2024-04-06 10:12:31* Test Item Value Reference Range Interpretation Comme nts POCT GLU (test code = 4522757376) 254 mg/dL 70-110 H Lab Interpretation (test cod e = 53640-5) Abnormal [facility] GLUCOSE (AUTOMATED)2024-04-06 09:35:12* Test Item Value Reference Range Interpretation Comme nts POCT GLU (test code = 7160462573) 349 mg/dL 70-110 H Lab Interpretation (test cod e = 24083-0) Abnormal [facility] GLUCOSE (AUTOMATED)2024-04-06 08:34:06* Test Item Value Reference Range Interpretation Comme nts POCT GLU (test code = 9037288274) 299 mg/dL 70-110 H Lab Interpretation (test cod e = 53446-8) Abnormal [facility] GLUCOSE (AUTOMATED)2024-04-06 07:58:40* Test Item Value Reference Range Interpretation Comme nts POCT GLU (test code = 0378319027) 446 mg/dL 70-110 H Lab Interpretation (test cod e = 12050-7) Abnormal [facility]. Metabolic Panel (42400)2024-04-06 07:47:06* Test Item Value Reference Range Interpretation Comme nts NA (test code = 6726479051) 126 mmol/L 135-145 L K (test code = 9379673141) 4.4 mmol/L 3.5-5.0 CL (test code = 6089107020) 93 mmol/L 98-108 L CO2 TOTAL (test code = 8819885941) 27 mmol/L 23-31 AGAP (test code = 3452362700) 6 2-16 BUN (test code = 0180766699) 21 mg/dL 7-23 GLUCOSE (test code = 6203141100) 518 mg/dL 70-110 HH CREATININE (test code = 2160-0) 1.08 mg/dL 0.60-1.25 TOTAL BILI (test code = 6540983186) 0.7 mg/dL 0.1-1.1 CALCIUM (test code = 7268769494) 8.1 mg/dL 8.6-10.6 L T PROTEIN (test code = 4360861423) 6.6 g/dL 6.3-8.2 ALBUMIN (test code = 6475379437) 3.5 g/dL 3.5-5.0 ALK PHOS (test code = 3209726159) 160 U/L 34-122 H ALTv (test code = 1742-6) 15 U/L 5-50 AST(SGOT) (test code = 9731795444) 33 U/L 13-40 eGFR (test code = 83348-3) 73.8 mL/min/1.73m2 CKD-EPI eGFR (2020). Assuming creatinine has been stable day-to-day for at least three months, the eGFR indicates Category G2 (60 - 89 mL/min/1.73 m2) Lab Interpretation (test code = 96736-6) Abnormal [facility] CenterMagnesium2024-05-15 07:44:19* Test Item Value Reference Range Interpretation Comme nts MAGNESIUM (test code = 3962252095) 1.6 mg/dL 1.7-2.4 L Lab Interpretation (test cod e = 04326-6) Abnormal [facility] CenterPOCT GLUCOSE (AUTOMATED)2024-04-06 07:36:55* Test Item Value Reference Range Interpretation Comme nts POCT GLU (test code = 5423194644) 476 mg/dL 70-110 Lab Interpretation (test cod e = 72772-4) Abnormal [facility] with Ybtq2115-27-46 07:23:19* Test Item Value Reference Range Interpretation [...] 34.6 g/dL 31.2-35.0 RDW-SD (test code = 41855-3) 39.8 fL 38.5-51.6 RDW-CV (test code = 788-0) 12.2 % 12.1-15.4 PLT (test code = 777-3) 251 150-328 MPV (test code = 04551-9) 10.5 fL 9.8-13.0 NRBC/100 WBC (test code = 6442391264) 0.0 0.0-10.0 NRBC x10^3 (test code = 1633983872) See_Comment [Automated messa ge] The system which generated this result transmitted reference range: 10*3/?L. The reference range was not used to interpret this result as normal/abnormal. GRAN MAT (NEUT) % (test code = 770-8) 76.0 % IMM GRAN % (test code = 6481799083) 0.90 % LYMPH % (test code = 736-9) 11.5 % MONO % (test code = 5905-5) 10.5 % EOS % (test code = 713-8) 0.8 % BASO % (test code = 706-2) 0.3 % GRAN MAT x10^3(ANC) (test code = 9388727626) 9.08 10*3/uL 1.99-6.95 H IMM GRAN x10^3 (test code = 8774392525) 0.11 10*3/uL 0.00-0.06 H LYMPH x10^3 (test code = 731-0) 1.38 10*3/uL 1.09-3.23 MONO x10^3 (test code = 742-7) 1.26 10*3/uL 0.36-1.02 H EOS x10^3 (test code = 711-2) 0.10 10*3/uL 0.06-0.53 BASO x10^3 (test code = 704-7) 0.04 10*3/uL 0.01-0.09 Lab Interpretation (test code = 97984-4) Abnormal [facility] CenterPOAK GLUCOSE (AUTOMATED)2024-04-06 06:45:34* Test Item Value Reference Range Interpretation Comme nts POCT GLU (test code = 7450817955) 495 mg/dL 70-110 HH Lab Interpretation (test cod e = 67657-0) Abnormal [facility] HEAD WO [id number] 20:17:39EXAMS: CT HEAD WO CONTRAST, CT CERVICAL [...] facetarthropathy, most pronounced at C5-C6 and C6-C7, unchanged.[facility] CenterCT CERVICAL SPINE WO GITGZWNF9188-46-34 20:17:39EXAMS: CT HEAD WO CONTRAST, CT CERVICAL [...] facetarthropathy, most pronounced at C5-C6 and C6-C7, unchanged.[facility] CenterAmmonia, [id number] 19:25:25* Test Item Value Reference Range Interpretation Comme nts AMMONIA (test code = [id number]) 9-33 L Lab Interpretation (test cod e = 68374-3) [facility]normal [facility]+ VW [id number] 17:22:17XR FOOT 3+ VW RIGHT 04/03/2024 10:15 AM History: r/o fx/osteo midfoot Comparison: None Findings: 3 views of the right foot are received for interpretation. There is no fracture or dislocation. Soft tissues are unremarkable. Thereare no radiopaque foreign bodies. Joint spaces are preserved.[facility]+ VW [id number] 17:22:17XR FOOT 3+ VW RIGHT 04/03/2024 10:15 AM History: r/o fx/osteo midfoot Comparison: None Findings: 3 views of the right foot are received for interpretation. There is no fracture or dislocation. Soft tissues are unremarkable. Thereare no radiopaque foreign bodies. Joint spaces are preserved.[facility] CHE[facility] 1 [id number] 17:18:12 XR CHEST 1 VW HISTORY: ?r/o CHF/infiltrate COMPARISON: March 22, 2024 FINDINGS: The patient is slightly rotated on the film. ?There is noinfiltrate or pleural effusion. ?The cardiomediastinal silhouette is withinnormal limits. ?There is no pneumothorax.[facility] CenterTROPONIN [id number] 16:54:12* Test Item Value Reference Range Interpretation Comme nts TROPONIN I (test code = 9641218861) 0.006 ng/mL <=0.034 RJ (test code = [...] of biotin. Lab Interpretation (test code = 33537-2) Normal [facility] [id number]-[id number] 16:54:12* Test Item Value Reference Range Interpretation Comme nts NT-proBNP (test code = 93284-7) 302 pg/mL <=125 RJ (test code = RJ) Result Indeterminate-Consid er causes of NT-proBNP elevation other than Heart failure such as acute coronary syndrome, pulmonary embolism, pulmonary hypertension, sepsis, stroke, and renal dysfunction. Lab Interpretation (test code = 40907-3) Abnormal [facility] CenterETHANOL2024-05-12 16:53:42 ALCOHOL<10mg/dL04/03/2024 11:53 AM CDTUTMB LABORATORY SERVICESToxic Greater than or equal to 80 mg/dL. NOTE: Whole blood values are approximately 10% to 15% lower than serum and plasma.[facility] CenterETHANOL2024-05-12 16:53:42ALCOHOL<10mg/dL04/03/2024 11:53 AM [facility]ORAT[facility] SERVICESToxic Greater than or equal to 80 mg/dL. NOTE: Whole blood values are approximately 10% to 15% lower than serum and plasma.[facility] Creatine Syoeat1023-12-54 16:43:13* Test Item Value Reference Range Interpretation Comme nts CK (test code = 1275727042) 35 U/L 33-194 Lab Interpretation (test cod e = 43536-4) Normal [facility] CenterPhosphorus2024-05-12 16:43:13* Test Item Value Reference Range Interpretation Comme nts PHOSPHORUS (test code = 6676207357) 3.6 mg/dL 2.5-5.0 Lab Interpretation (test cod e = 23954-6) Normal [facility] CenterPhosphorus2024-05-12 16:43:13* Test Item Value Reference Range Interpretation Comme nts PHOSPHORUS (test code = 5911393812) 3.6 mg/dL 2.5-5.0 Lab Interpretation (test cod e = 11037-0) Normal [facility] CenterCreatine Hnxwip4111-36-59 16:43:13* Test Item Value Reference Range Interpretation Comme nts CK (test code = 1812837403) 35 U/L 33-194 Lab Interpretation (test cod e = 07985-2) Normal [facility] CenterCOMP. METABOLIC PANEL (63093)2024-04-03 16:43:12* Test Item Value Reference Range Interpretation Comme nts NA (test code = 2542418899) 132 mmol/L 135-145 L K (test code = 5902577163) 4.4 mmol/L 3.5-5.0 Slight hemolysis CL (test code = 7883193589) 97 mmol/L 98-108 L CO2 TOTAL (test code = 9830744159) 29 mmol/L 23-31 AGAP (test code = 2846661796) 6 2-16 BUN (test code = 0527993132) 17 mg/dL 7-23 Slight hemolysis GLUCOSE (test code = 9837794518) 353 mg/dL 70-110 H CREATININE (test code = 2160-0) 0.89 mg/dL 0.60-1.25 TOTAL BILI (test code = 9219405218) 0.9 mg/dL 0.1-1.1 CALCIUM (test code = 8120322061) 9.0 mg/dL 8.6-10.6 T PROTEIN (test code = 4356859121) 6.6 g/dL 6.3-8.2 ALBUMIN (test code = 5197200581) 3.7 g/dL 3.5-5.0 ALK PHOS (test code = 6972260364) 118 U/L 34-122 Slight hemolysis ALTv (test code = 1742-6) 14 U/L 5-50 AST(SGOT) (test code = 2185547168) 19 U/L 13-40 Slight hemolysis eGFR (test code = 28888-5) 92.2 mL/min/1.73m2 CKD-EPI eGFR (2020). Assuming creatinine has been stable day-to-day for at least three months, the eGFR indicates Category G1 (>= 90 mL/min/1.73 m2) Lab Interpretation (test code = 77344-3) Abnormal [facility] CenterMagnesium2024-05-12 16:43:12* Test Item Value Reference Range Interpretation Comme nts MAGNESIUM (test code = 8076427901) 1.6 mg/dL 1.7-2.4 L Lab Interpretation (test cod e = 49981-6) Abnormal [facility] CenterCB WITH [id number] 16:35:09* Test Item Value Reference Range Interpretation [...] 34.0 g/dL 31.2-35.0 RDW-SD (test code = 81013-7) 39.7 fL 38.5-51.6 RDW-CV (test code = 788-0) 12.3 % 12.1-15.4 PLT (test code = 777-3) 258 150-328 MPV (test code = 93820-1) 10.0 fL 9.8-13.0 NRBC/100 WBC (test code = 7397837102) 0.0 0.0-10.0 NRBC x10^3 (test code = 2668008795) See_Comment [Automated messa ge] The system which generated this result transmitted reference range: 10*3/?L. The reference range was not used to interpret this result as normal/abnormal. GRAN MAT (NEUT) % (test code = 770-8) 81.2 % IMM GRAN % (test code = 2975885414) 0.70 % LYMPH % (test code = 736-9) 11.3 % MONO % (test code = 5905-5) 6.5 % EOS % (test code = 713-8) 0.1 % BASO % (test code = 706-2) 0.2 % GRAN MAT x10^3(ANC) (test code = 2894688448) 9.37 10*3/uL 1.99-6.95 H IMM GRAN x10^3 (test code = 5114389111) 0.08 10*3/uL 0.00-0.06 H LYMPH x10^3 (test code = 731-0) 1.30 10*3/uL 1.09-3.23 MONO x10^3 (test code = 742-7) 0.75 10*3/uL 0.36-1.02 EOS x10^3 (test code = 711-2) 0.06-0.53 L BASO x10^3 (test code = 704-7) 0.01-0.09 Lab Interpretation (test code = 85247-3) Abnormal [facility] CenterLactic Acid Whole [id number] 16:30:22* Test Item Value Reference Range Interpretation Comme nts LACTIC ACID (test code = 0227696543) 1.63 mmol/L 0.50-2.20 QUES Lab Interpretation (test cod e = 34641-8) Normal [facility] GLUCOSE(AGE >30DAYS)2024-04-03 15:46:00* Test Item Value Reference Range Interpretation Comme nts POCT Glu (age>30days) (test code = 3342) 305 mg/dL 70-110 A Lab Interpretation (test cod e = 46580-8) Abnormal [facility] GLUCOSE(AGE >30DAYS)2024-04-03 15:46:00* Test Item Value Reference Range Interpretation Comme nts POCT Glu (age>30days) (test code = 3342) 305 mg/dL 70-110 A Lab Interpretation (test cod e = 93215-2) Abnormal [facility] GLUCOSE (AUTOMATED)2024-04-03 15:44:37* Test Item Value Reference Range Interpretation Comme nts POCT GLU (test code = 6622107805) 305 mg/dL 70-110 H Lab Interpretation (test cod e = 42040-3) Abnormal [facility] GLUCOSE (AUTOMATED)2024-04-01 00:05:36* Test Item Value Reference Range Interpretation Comme nts POCT GLU (test code = 9635023559) 215 mg/dL 70-110 H Lab Interpretation (test cod e = 35078-5) Abnormal [facility] GLUCOSE (AUTOMATED)2024-03-31 23:20:38* Test Item Value Reference Range Interpretation Comme nts POCT GLU (test code = 0952167723) 468 mg/dL 70-110 HH Lab Interpretation (test cod e = 36065-8) Abnormal [facility] HEAD WO [id number] 19:45:11EXAM: CT HEAD WO CONTRAST, CT CERVICAL [...] soft tissues and visualized lung apices areunremarkable.[facility] CenterCT CERVICAL SPINE WO [id number] 19:45:11EXAM: CT HEAD WO CONTRAST, CT CERVICAL [...] soft tissues and visualized lung apices areunremarkable.[facility] CenterXR LUMBAR SPINE 2 [id number] 00:16:22EXAM: XR LUMBAR SPINE 2 VW HISTORY: [...] in normal alignment. Theintervertebral disc spaces are preserved.[facility] CenterXR KNEE 3 VW [id number] 22:53:33EXAM: XR KNEE 3 VW RIGHT HISTORY: [...] the proximal tibia metadiaphysis may be posttraumatic. [facility] CenterXR KNEE 3 VW [id number] 22:53:33EXAM: XR KNEE 3 VW RIGHT HISTORY: [...] the proximal tibia metadiaphysis may be posttraumatic. [facility] CenterGlycosylated Hemoglobin (A1C)2024-03-22 22:08:29* Test Item Value Reference Range Interpretation Comme nts HGB A1C (test code = 4548-4) 12.1 % 4.0-5.7 H RJ (test code = RJ) Reference RangesNormal: <5.7%Prediabetes: 5.7 - 6.4%Diabetes: > 6.5% Lab Interpretation (test code = 37257-8) Abnormal [facility] CenterN-TERMINAL [id number] 17:06:26* Test Item Value Reference Range Interpretation Comme nts NT-proBNP (test code = 38865-4) 108 pg/mL <=125 Lab Interpretation (test cod e = 10859-5) Normal [facility] CenterTROPONIN [id number] 17:06:26* Test Item Value Reference Range Interpretation Comme nts TROPONIN I (test code = 5520844227) 0.007 ng/mL <=0.034 RJ (test code = [...] of biotin. Lab Interpretation (test code = 25091-9) Normal [facility] CenterHEPATIC FUNCTION PANEL (89062) (ALB,T.PRO,BILI T,BU/BC,ALT,AST,ALK PHOS)2024-03-22 16:57:07* Test Item Value Reference Range Interpretation Comme nts TOTAL BILI (test code = 5187307685) 0.6 mg/dL 0.1-1.1 BILI UNCON (test code = 2553032200) 0.1 mg/dL 0.1-1.1 BILI CONJ (test code = 7131253055) 0.0 mg/dL 0.0-0.3 T PROTEIN (test code = 9937436306) 6.7 g/dL 6.3-8.2 ALBUMIN (test code = 9030686634) 3.7 g/dL 3.5-5.0 ALK PHOS (test code = 0677654524) 102 U/L 34-122 ALTv (test code = 1742-6) 18 U/L 5-50 AST(SGOT) (test code = 5868139253) 24 U/L 13-40 Lab Interpretation (test cod e = 84716-5) Normal [facility] CenterBASIC METABOLIC PANEL (NA, K, CL, CO2, GLUCOSE, BUN, CREATININE, CA)2024-03-22 16:57:07* Test Item Value Reference Range Interpretation Comme nts NA (test code = 3926134372) 137 mmol/L 135-145 K (test code = 8542198547) 3.8 mmol/L 3.5-5.0 CL (test code = 6603056224) 106 mmol/L 98-108 CO2 TOTAL (test code = 6289080843) 24 mmol/L 23-31 AGAP (test code = 6897827397) 7 2-16 BUN (test code = 7278659854) 12 mg/dL 7-23 GLUCOSE (test code = 6981263889) 132 mg/dL 70-110 H CREATININE (test code = 2160-0) 0.97 mg/dL 0.60-1.25 CALCIUM (test code = 0647546656) 8.8 mg/dL 8.6-10.6 eGFR (test code = 04448-1) 84.0 mL/min/1.73m2 CKD-EPI eGFR (2020). Assuming creatinine has been stable day-to-day for at least three months, the eGFR indicates Category G2 (60 - 89 mL/min/1.73 m2) Lab Interpretation (test code = 18827-4) Abnormal [facility] CenterCreatine Rxcoel8428-15-00 16:57:07* Test Item Value Reference Range Interpretation Comme nts CK (test code = 7523288572) 51 U/L 33-194 Lab Interpretation (test cod e = 41195-1) Normal [facility] CenterCBC WITH [id number] 16:38:44* Test Item Value Reference Range Interpretation [...] 34.2 g/dL 31.2-35.0 RDW-SD (test code = 89068-5) 42.8 fL 38.5-51.6 RDW-CV (test code = 788-0) 13.2 % 12.1-15.4 PLT (test code = 777-3) 259 150-328 MPV (test code = 42428-6) 10.8 fL 9.8-13.0 NRBC/100 WBC (test code = 2281709512) 0.0 0.0-10.0 NRBC x10^3 (test code = 1481906942) See_Comment [Automated messa ge] The system which generated this result transmitted reference range: 10*3/?L. The reference range was not used to interpret this result as normal/abnormal. GRAN MAT (NEUT) % (test code = 770-8) 72.5 % IMM GRAN % (test code = 9426861506) 1.10 % LYMPH % (test code = 736-9) 13.2 % MONO % (test code = 5905-5) 11.4 % EOS % (test code = 713-8) 1.3 % BASO % (test code = 706-2) 0.5 % GRAN MAT x10^3(ANC) (test code = 2605032081) 6.01 10*3/uL 1.99-6.95 IMM GRAN x10^3 (test code = 5364556882) 0.09 10*3/uL 0.00-0.06 H LYMPH x10^3 (test code = 731-0) 1.09 10*3/uL 1.09-3.23 MONO x10^3 (test code = 742-7) 0.94 10*3/uL 0.36-1.02 EOS x10^3 (test code = 711-2) 0.11 10*3/uL 0.06-0.53 BASO x10^3 (test code = 704-7) 0.04 10*3/uL 0.01-0.09 Lab Interpretation (test code = 20097-1) Abnormal [facility] CenterXR CHEST 2 [id number] 16:14:04EXAM: XR CHEST 2 03/22/2024 11:01 AM HISTORY: 69 years-old Male with fluid overload . TECHNIQUE: PA and lateral chest radiographs. COMPARISON: 02/14/2019. FINDINGS: Lines and tubes: None. Cardiomediastinal: The cardiomediastinal silhouette is unremarkable. Lungs and pleura: The lungs are clear. Nofocal consolidation,pneumothorax, or pleural effusion is seen. Included osseous structures show no acute abnormality. Degenerative changeinvolving the spine and AC joints is present.[facility] GLUCOSE (AUTOMATED) 2024-03-12 04:43:11* Test Item Value Reference Range Interpretation Comme nts POCT GLU (test code = 3960883162) 213 mg/dL 70-110 H Lab Interpretation (test cod e = 65370-7) Abnormal [facility] GLUCOSE (AUTOMATED)2024-03-12 03:47:48* Test Item Value Reference Range Interpretation Comme nts POCT GLU (test code = 6150331660) 258 mg/dL 70-110 H Lab Interpretation (test cod e = 37663-7) Abnormal [facility] GLUCOSE (AUTOMATED)2024-03-12 02:29:49* Test Item Value Reference Range Interpretation Comme nts POCT GLU (test code = 4313295056) 579 mg/dL 70-110 HH Lab Interpretation (test cod e = 78269-5) Abnormal [facility]. Metabolic Panel (71510)2024-03-12 02:17:22* Test Item Value Reference Range Interpretation Comme nts NA (test code = 9888994816) 130 mmol/L 135-145 L K (test code = 9553909714) 4.4 mmol/L 3.5-5.0 CL (test code = 2905947304) 98 mmol/L 98-108 CO2 TOTAL (test code = 5363924560) 26 mmol/L 23-31 AGAP (test code = 6123596013) 6 2-16 BUN (test code = 5732872432) 24 mg/dL 7-23 H GLUCOSE (test code = 1668927873) 614 mg/dL 70-110 HH CREATININE (test code = 2160-0) 1.21 mg/dL 0.60-1.25 TOTAL BILI (test code = 1348604535) 0.4 mg/dL 0.1-1.1 CALCIUM (test code = 5317505111) 8.6 mg/dL 8.6-10.6 T PROTEIN (test code = 2491885562) 6.1 g/dL 6.3-8.2 L ALBUMIN (test code = 6843087918) 3.5 g/dL 3.5-5.0 ALK PHOS (test code = 7131510272) 107 U/L 34-122 ALTv (test code = 1742-6) 17 U/L 5-50 AST(SGOT) (test code = 9914562513) 16 U/L 13-40 eGFR (test code = 38086-3) 64.4 mL/min/1.73m2 CKD-EPI eGFR (2020). Assuming creatinine has been stable day-to-day for at least three months, the eGFR indicates Category G2 (60 - 89 mL/min/1.73 m2) Lab Interpretation (test code = 92432-6) Abnormal [facility] CenterTroponin [id number] 02:15:00* Test Item Value Reference Range Interpretation Comme nts TROPONIN I (test code = 1257438254) 0.006 ng/mL <=0.034 RJ (test code = [...] of biotin. Lab Interpretation (test code = 04358-6) Normal [facility] CenterCreatine Mxcnqt1221-07-80 02:11:59* Test Item Value Reference Range Interpretation Comme nts CK (test code = 5226720192) 32 U/L 33-194 L Lab Interpretation (test cod e = 42048-1) Abnormal [facility] CenterCbc with [id number]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 WELLNESS/FITNESS COORDINATOR was verified during stay José Aparicio MD IM-INTERNAL MEDICINE STAFF [facility] 2025-04-10 17:37:51 Images from the original note were not included. [facility] Medicine [facility] Hospitalist History and Physical Patient:Raj Morales PCP:PCP [...] DVT prophylaxis: enoxaparin (Lovenox) syringe 40 mg [[id number]] Current Diet: Adult Diet Regular Disposition Anticipated: [...] data in the 24 hours ending 04/10/25 1737 Culture Results No results found for the [...] 04/10/2025 05:16 PM CDT Malini Stokes MD [facility] Medicine [facility] 2024-08-23 20:52:46 [facility] ADMIT H&P Date of Service: 08/23/2024 CHIEF COMPLAINT: confusion, low blood glucose Subjective History of Present Illness 69 yo obese male with pmh of DM, foot cellulitis, HLD, HTN, CVA, MRSA bacteremia, infective endocarditis, E.coli UTI who presents to the ED secondary to low blood sugar. He was found in the [facility] parking lot by bystander. Apparently, he had [...] 12/01/2019 Added automatically from request for surgery [id number] Dyslipidemia Edema of both legs 02/28/2020 Erectile dysfunction, unspecified erectile dysfunction type 02/28/2020 Essential hypertension 02/28/2020 HTN (hypertension) Hyperlipidemia Obesity (BMI 30-39.9) 03/17/2019 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 Stroke 2017 Type 2 diabetes mellitus with vascular disease 10/12/2019 Upper respiratory tract infection, unspecified type 10/12/2019 Past Surgical History: Procedure Laterality Date COLONOSCOPY N/A 12/30/2019 Surgeon: Glo Finn MD; Location: [facility] OR [facility] CORNEAL TRANSPLANT,LAMELLAR Bilateral KNEE ARTHROSCOPY 1998 OTHER PENETRATING KERATOPLASTY PHACOEMULSIFICATION OF CATARACT WITH INTRAOCULAR LENS IMPLANT Right 03/17/2019 Surgeon: Virgil Martinez MD; Location: [facility] OR [facility] Family History Problem Relation Age [...] tablet 0 lancets (TRUEPLUS LANCETS) 33 gauge [facility] Monitor Blood Glucose daily 300 Each 1 simvastatin 40 mg tablet Take 1 tablet by mouth at bedtime. 90 tablet 0 metFORMIN 1,000 mg tablet Take 1 tablet by mouth 2 (two) times daily with meals. 60 tablet 5 Insulin Syringe-Needle U-100 1 mL 27 gauge x 1/2" Syrg Use as directed 200 Syringe 5 Insulin Bolivar, Disposable, (PHUC PEN NEEDLE) 32 gauge x [...] None noted T [facility] EMERGENCY PHYSICIAN STAFF [facility] 2024-06-23 22:10:00 [facility] Hospitalist Admission H&P Date of Service: [...] 12/01/2019 Added automatically from request for surgery [id number] Dyslipidemia Edema of both legs 02/28/2020 Erectile dysfunction, unspecified erectile dysfunction type 02/28/2020 Essential hypertension 02/28/2020 HTN (hypertension) Hyperlipidemia Obesity (BMI 30-39.9) 03/17/2019 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 Stroke 2017 Type 2 diabetes mellitus with vascular disease 10/12/2019 Upper respiratory tract infection, unspecified type 10/12/2019 PAST SURGICAL HISTORY Past Surgical History: Procedure Laterality Date COLONOSCOPY N/A 12/30/2019 Surgeon: Glo Finn MD; Location: [facility] OR [facility] CORNEAL TRANSPLANT,LAMELLAR Bilateral KNEE ARTHROSCOPY 1999 OTHER PENETRATING KERATOPLASTY PHACOEMULSIFICATION OF CATARACT WITH INTRAOCULAR LENS IMPLANT Right 03/17/2019 Surgeon: Virgil Martinez MD; Location[place] [facility] ALLERGIES No Known Allergies MEDICATIONS Current home medication list reviewed: Current Discharge Medication List STOP taking these medications cephALEXin 500 mg capsule Comments: Reason for Stopping: zzgcjwww-arkxakirjf-wrrfycysc 3.5mg-400 unit- 5,000 unit/gram topical ointment Comments: [...] 1/2" Syrg Comments: Reason for Stopping: Insulin Bolivar, Disposable, (PHUC PEN NEEDLE) 32 gauge x [...] Patient may need to go to a chcf facility for a little while along with [...] risk of morbidity and mortality. [place] EMPLOYEE WELLNESS/FITNESS COORDINATOR was verified during stay José Aparicio MD IM-INTERNAL MEDICINE STAFF [facility] - Health Procedure Notes Date/Time Note Provider Source 2025-04-28 15:28:34 Upon SW and FREIGHT DELIVERY DRIVER met with pt to discuss medical clearance for dc and need for rehab. Due to pt's insurance requiring a 40% copay per day for SNF placement, he is unable to pay out of pocket and states he will just return to his prior living situation "with friends". Pt provided the following address: [address] [place] [id number]. However, upon SW inquiring about who will be available in the home once transport is set up, he states "no one". SW offered skilled nursing services of which he firmly denied. Pt states he would just request to be transported to the [facility]. Pt has requested a rolling walker for dc. RW will be provided prior to dc. SW will arrange accordingly. HAIDER Munoz Press Hand Supervisor - Care Management [facility] [phone] [email or web address] Honey MALONEY [facility] 2024-06-27 11:15:00 [facility] Date of Service: 06/27/24 Patient location: [facility] 222 Placed by: Adilson Lees RN 69 year old male. 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 Questions encouraged and answered accordingly. According to [facility] Operating Procedures Policy, a Time Out was [...] area. Chest x-ray: ordered and pending REF#: [id number] Lot #: [id number] Exp Date: 03/22/25 Adilson Lees RN [facility] Notes Date/Time Note Provider Source 2025-05-30 10:33:05 Discharge completed. Ambulance picking up at 11am. NAT Ibeth Parker RN [facility] 2025-05-30 10:13:50 Problem: Falls, Risk of Goal: Absence of falls Outcome: Resolved Problem: Skin integrity Impaired (Risk or Actual) Goal: Wound healing Outcome: Resolved Goal: Prevention of new skin breakdown Outcome: Resolved Problem: Respiratory Function - Impaired Goal: Able to cough effectively Outcome: Resolved Goal: Adequate oxygenation Outcome: Resolved Goal: Adequate work of breathing Outcome: Resolved Goal: Patent airway Outcome: Resolved [facility] 2025-05-30 07:38:39 Problem: Falls, Risk of Goal: [...] Outcome: Progressing as expected Nicko Lam RN [facility] 2025-05-30 02:55:19 Problem: Falls, Risk of Goal: [...] Outcome: Progressing as expected Jarad Enrique RN [facility] 2025-05-29 19:29:09 Problem: Falls, Risk of Goal: [...] Outcome: Progressing as expected Vitaliy Foreman RN [facility] 2025-05-29 14:17:11 Patient departed via wheelchair with transportation Joe Rodriguez RN [facility] 2025-05-29 13:59:04 Care plan initiated [facility] 2025-05-29 13:56:03 Admission completed. This nurse called the [facility] [place] and spoke to patients nurse. Emergency contact was given and this nurse corrected it in patients chart. Reports falls in the past and patient uses wheelchair at facility. [facility] 2025-05-29 13:51:08 Report to Vitaliy HENSON. Transportation requested [facility] 2025-05-29 11:09:08 Patient AMS, will attempt to call [facility] in [place]. [facility] 2025-05-29 10:51:25 PT/OT at the bedside [facility] 2025-05-29 08:42:31 Admit team physician at the bedside [facility] 2025-05-29 07:46:13 Patient repositioned in bed. He is awake and alert, anxious to be discharged and return to his home. [facility] 2025-05-29 07:17:40 Report from Chun HENSON [facility] 2025-05-29 07:06:56 Pt is Aox4, on RA. VSS, he denied pain during this shift. Pt appears comfortable. Report given to Deshawn HENSON. All question answered during this report. T Chun Wolff RN [facility] 2025-05-29 01:24:40 Chun HENSON accepted report on pt; RN verbalized understanding of report including updated plan of care, all outstanding tasks, and all questions/concerns answered. NAT Parvin Rodgers RN [facility] 2025-05-28 22:54:59 Pt yelling and whistling to get staff attention. RN in room. Pt had dropped urinal and needed another. Pt call light at his side, RN placed call light in hand for pt to use. Pt given new urinal, urine cleaned from floor. Krystal Villanueva RN [facility] 2025-05-28 20:20:[address] Scan. SIXTO [place] requested UA collection from pt. Pt denied need to urinate at this time and will call using call light when ready. [facility] 2025-05-28 19:17:45 Pt AO4, resp even/unlabored, NAD on RA; Pt endorsed sent to ED via EMS from care facility he is staying at in [place] for "increased concern for dizziness." Pt unable to report symptom onset or any aggravating or alleviating factors. Pt states the caregivers at the facility provide him his medications and care for his wounds on LLE and right foot. Pt denies any injury or trauma, falls today PHOTOGRAPHER'S ASSISTANT, or LOC. Pt experiencing sacral pain aggravated by EMS stretcher and ride. Pt denies need for pain medication at this time. PMH: DMT2 (insulin). Pt educated on ED safety procedures and plan of care. Pt verbalized understanding and utilized teach back to demonstrate understanding of call light for UA. [facility] 2025-05-28 18:36:38 EMS states " Here for multiple fall and generalize weakness. Normally gets around in , has been to weak to transfer" Pt is from [facility], no blood thinners, no LOC. PT denies any pain, Thais Obando RN [facility] - Health 2025-05-28 18:30:00 [facility] Emergency Department Note Patient Name: Raj Morales Date of : 1955 70 year old male Treatment Room: [facility] Primary Care Physician: Rakesh Hazel Patient Escorted by: Self [9] Mode of Arrival: EMS - [place] [21] EMS Treatment Prior to ED Arrival: PHOTOGRAPHER'S ASSISTANT treatment: None Travel and Exposure Screening: Symptoms [...] 12/01/2019 Added automatically from request for surgery [id number] Dyslipidemia Edema of both legs 02/28/2020 Erectile [...] N/A 12/30/2019 Surgeon: Glo Finn MD; Location: [facility] CORNEAL TRANSPLANT,LAMELLAR Bilateral KNEE ARTHROSCOPY 1999 OTHER PENETRATING KERATOPLASTY PHACOEMULSIFICATION OF CATARACT WITH INTRAOCULAR LENS IMPLANT Right 03/17/2019 Surgeon: Virgil Martinez MD; Location: [facility] Review of Systems: Review of [...] 0.01 - 0.09 10*3/uL COMP. METABOLIC PANEL (12264) - Abnormal NA 136 135 - 145 [...] VW CBC WITH DIFF COMP. METABOLIC PANEL (00048) URINALYSIS TROPONIN I N-TERMINAL PRO-BNP URINE CULTURE Orders Placed This Encounter Medications NaCl 0.9% (NS) bolus infusion 1,000 mL First Provider Eval: ED Events Date/Time Event User Comments 05/28/251852 Medical Screening Begins LARSLORENAErnesto ANAKANDACE -- 05/28/251852 First Provider Evaluation RAMÓN ROBLERO [...] None AdmissionCare documentation entered by: Ramón Roblero [facility] [employer], 29th edition, Copyright ? 2024 [facility] [employer] All Rights Reserved. [id number]:50:00-05:00 ED COURSE Diagnosis/Impression as of 05/28/252149 Weakness [...] Observation Condition -- Comment Provider Care Team:: [facility] [58] Discharge Medications: Patient's Medications [...] signed by: Ramón Roblero DO 05/28/25 2150 [facility] 2025-05-28 18:30:00 AdmissionCare Guideline: General Observation, Observation [...] None AdmissionCare documentation entered by: Ramón Roblero [facility] [employer], 29th edition, Copyright ? 2024 [facility] [employer] [facility] All Rights Reserved. [id number]:50:00-05:00 [facility] 2025-05-11 17:33:21 [facility] 2025-05-11 15:40:01 Pt arrived by EMS. He is homeless and was dropped off by the storage units and needed ride into town. Lives behind [employer] in [place]. Katarzyna Matias RN [facility] 2025-04-28 18:33:59 Problem: Falls, Risk of Goal: [...] Outcome: Progressing as expected Martine Campos RN [facility] 2025-04-28 18:25:25 Problem: Falls, Risk of Goal: [...] VTE diagnosis (Actual) Outcome: Adequate for discharge Martha White RN [facility] 2025-04-28 17:34:39 Problem: Falls, Risk of Goal: [...] VTE diagnosis (Actual) Outcome: Progressing as expected [facility] 2025-04-28 00:25:41 Problem: Falls, Risk of Goal: [...] Outcome: Progressing as expected Emanuel Keene RN [facility] 2025-04-27 13:33:22 Problem: Falls, Risk of Goal: [...] Outcome: Progressing as expected Virgil George RN [facility] 2025-04-26 20:38:09 Problem: Falls, Risk of Goal: [...] VTE diagnosis (Actual) Outcome: Progressing as expected [facility] 2025-04-26 09:30:39 Problem: Falls, Risk of Goal: [...] VTE diagnosis (Actual) Outcome: Progressing as expected T Dayana Jenkins RN [facility] 2025-04-26 01:24:03 Problem: Falls, Risk of Goal: [...] associated with VTE diagnosis (Actual) Reactivated T [facility] 2025-04-25 23:30:00 Patient is not able to remember his home medications. T [facility] 2025-04-25 21:38:00 Patient admitted to [facility] for diagnosis of AMS and hypoglycemia. Patient agrees to admission, discussed plan of care with patient and family. Patient RR is even and unlabored on RA. Color appropriate for race. PIV intact x2. No adverse reaction to medications administered while in ED. Belongings with patient to unit. T [facility] 2025-04-25 21:33:39 Nurse Report Report given to Niall HENSON. Chief complaint, assessment findings, infusion verify and orders reviewed. Bre Irving RN [facility] 2025-04-25 17:25:38 Pt brought in by [place] [facility]. EMS report: EMS called once for lift assist and then called again because pt was just sitting hunched over and weak. 20g IV to left hand and 150mL of NS given PHOTOGRAPHER'S ASSISTANT. BG 69. PMHx: ETOH abuse Bre Irving RN [facility] 2025-04-25 17:19:00 EMERGENCY DEPARTMENT ENCOUNTER [facility] Patient Name: Raj Morales Date of : 1955 70 year old [facility]am [facility] Primary Care Physician: Rakesh Hazel Pre- Hospital Patient Escorted by: Self [9] Mode of Arrival: EMS - [facility] ([place]) [43] EMS Treatment Prior to ED Arrival: PHOTOGRAPHER'S ASSISTANT treatment: IVF ED Events Date/Time Event User Comments 04/25/251734 Medical Screening Begins CHELLE FERNANDEZ MD -- 04/25/251734 First Provider Evaluation CHELLE FERNANDEZ MD -- Chief Complaint Chief Complaint Patient presents with Weakness ED Triage Notes Bre Irving RN 04/25/2025 17:27 Pt brought in by [place]. EMS report: EMS called once for lift assist and then called again because pt was just sitting hunched over and weak. 20g IV to left hand and 150mL of NS given PHOTOGRAPHER'S ASSISTANT. BG 69. PMHx: ETOH abuse Original note [...] 12/01/2019 Added automatically from request for surgery [id number] Dyslipidemia Edema of both legs 02/28/2020 Erectile [...] N/A 12/30/2019 Surgeon: Glo Finn MD; Location: [facility] CORNEAL TRANSPLANT,LAMELLAR Bilateral KNEE ARTHROSCOPY 1998 OTHER PENETRATING KERATOPLASTY PHACOEMULSIFICATION OF CATARACT WITH INTRAOCULAR LENS IMPLANT Right 03/17/2019 Surgeon: Virgil Martinez MD; Location: [facility] Allergies No Known Allergies Social History Tobacco [...] 0.01 - 0.09 10*3/uL COMP. METABOLIC PANEL (91676) - Abnormal NA 138 135 - 145 [...] contrast CBC WITH DIFF COMP. METABOLIC PANEL (66495) LIPASE TROPONIN I N-TERMINAL PRO-BNP URINALYSIS URINE DRUG (IMMUNOASSAY) - COMPREHENSIVE DRUG SCREEN W/O REFLEX ETHANOL Salicylate Acetaminophen Magnesium Creatine Kinase Fentanyl (Immunoassay) POCT GLUCOSE (AUTOMATED) POCT GLUCOSE (AUTOMATED) MRSA / MSSA Screen by Haily GASTELUM Glycosylated Hemoglobin (A1C) POCT GLUCOSE (AUTOMATED) POCT GLUCOSE (AUTOMATED) POCT GLUCOSE (AUTOMATED) Cbc with Diff Comp. Metabolic Panel (54077) POCT GLUCOSE (AUTOMATED) POCT Glucose (Age >30 [...] EKG Time 1842 Rate 83 Normal sinus [place] normal Intervals normal No acute ischemia MDM [...] components within normal limits COMP. METABOLIC PANEL (35193) - Abnormal; Notable for the following components: [...] components within normal limits COMP. METABOLIC PANEL (81228) - Abnormal; Notable for the following components: [...] necessary. ED Course as of 04/26/25922Apr 25, 20251920 Bed requested [DN] ED Course User Index [...] stimulation) AdmissionCare documentation entered by: Chelle Fernandez [facility], 29th edition, Copyright ? 2024 [facility] [employer] [facility] All Rights Reserved. 5343-20-52W38:22:07-05:00 Medical Decision Making Problems Addressed: Altered mental [...] not hypoxic. Interpreted. Reassessment:gradually improving Communication with franchise field consultant: Internal Medicine Limitations to patient care [...] inpatient management. He is admitted to the [facility] in guarded condition. Raj Morales is [...] Up ED Disposition ED Disposition Admit - [facility] Condition -- Comment -- Current Discharge [...] 1/2" Syrg Comments: Reason for Stopping: Insulin [place]ar, Disposable, (PHUC PEN NEEDLE) 32 gauge x 5/32" Ndle Comments: Reason for Stopping: ofloxacin (OCUFLOX) 0.3 % ophthalmic solution Comments: Reason for Stopping: prednisoLONE acetate 1 % ophthalmic suspension drops Comments: Reason for Stopping: Chelle Fernandez Jr., MD Clinical Pasting Machine Offbearer [facility] Emergency Department [employer] is used frequently and may produce errors. Promptly contact for obvious discrepancies. Chelle Fernandez MD 04/26/25 5476 [facility] 2025-04-25 17:19:00 Associated Order(s): Critical Care Critical [...] separately billable procedures and treating other patients. [facility] 2025-04-25 17:19:00 AdmissionCare Guideline: Hypoglycemia, Inpatient Based [...] stimulation) AdmissionCare documentation entered by: Chelle Fernandez [facility], 29th edition, Copyright ? 2024 [facility] All Rights Reserved. 8794-21-70O75:22:07-05:00 [facility] 2025-04-20 08:47:12 Patient stating he wants his walker, advised patient that walker is not in ER. This nurse calling EMS who presented with patient to locate walker. Dispatch to return nurses phone call. Patient in wheelchair, advised not to leave chair and to call for assistance from registation. T Elsa White RN [facility] 2025-04-20 08:46:24 Pt given printed and verbal [...] leaving in wheelchair, in no apparent distress. [facility] 2025-04-20 08:08:08 CC removed. [facility] 2025-04-20 06:59:00 Nurse Report Report received from SIXTO Kilg[place]. Chief complaint, assessment findings, and orders reviewed. Plan of care discussed with both nurses. Elsa White RN [facility] 2025-04-20 06:23:49 CC: fall from seated wheelchair. C/o neck pain and headache. Unknown LOC. Jame Sharp RN [facility] 2025-04-20 06:22:00 Associated Order(s): EKG-12 Lead ONCE Pre-Procedure Diagnose(s): Fall, initial encounter Post-Procedure Diagnose(s): Fall, initial encounter [facility] Emergency Department Note Patient Name: Raj Morales Date of : 1955 70 year old male Treatment Room: [place] [address] Primary Care Physician: Rakesh Hazel Patient Escorted by: Self [9] Mode of Arrival: EMS - [facility] [43] EMS Treatment Prior to ED Arrival: PHOTOGRAPHER'S ASSISTANT treatment: None Travel and Exposure Screening: Symptoms [...] 12/01/2019 Added automatically from request for surgery [id number] Dyslipidemia Edema of both legs 02/28/2020 Erectile [...] N/A 12/30/2019 Surgeon: Glo Finn MD; Location: [facility] CORNEAL TRANSPLANT,LAMELLAR Bilateral KNEE ARTHROSCOPY 1999 OTHER PENETRATING KERATOPLASTY PHACOEMULSIFICATION OF CATARACT WITH INTRAOCULAR LENS IMPLANT Right 03/17/2019 Surgeon: Virgil Martinez MD; Location[place] [facility] Review of Systems: Review of Systems Constitutional: [...] contrast Cbc with Diff Comp. Metabolic Panel (11469) Urinalysis Troponin I No orders of the [...] ED Physician in the absence of a tankman: yes Previous ECG: Previous ECG: Unavailable Interpretation: [...] 04/20/25 0644 Wood Cornejo MD 04/20/25 0648 [facility] 2025-04-20 06:22:00 [facility] ED Transfer of Care Note. Off-going Physician:Wood [...] components within normal limits COMP. METABOLIC PANEL (44805) - Abnormal; Notable for the following components: [...] - Insurance HMO [address] [facility] [id number] Mo Pollard MD 04/20/25926 EM-EMERGENCY MEDICINE STAFF [facility] - Health Referral ID Status Reason Start Date Expiration Date Visits Re quested Visits Authorized [id number] 1 1 [facility]57 14:12:22* Audit-C Score Answer Date of Assessment Author 0 04/10/2025 10:43 PM CDT Ralf Terry RN * * Calculated C-SSRS Risk Score (Lifetime/Recent) Answer Date of Assessment Author No Risk Indicated 04/10/2025 12:20 PM CDT Jacqui Puga RN * [place] Suicide Severity Rating Scale (Screener/Recent Self-Report) Question Answer Date of Assessment Author 1. Wish to be (Past 1 Month) No 025 12:20 PM CDT Jacqui Puga RN 2. Non-Specific Active Suici mohit Thoughts (Past 1 Month) No 04/10/2025 12:20 PM CDT Nancy Puga RN 6. Suicidal Behavior (Lifetime) No 12:20 PM CDT Jacqui Puga RN [facility] HospitalPvunztg0051-89-00 14:12:22* Jarrell Washington DO - 04/13/2025 1:54 PM CDT Images from the original note were not included. [facility] Medicine Inpatient Discharge Summary Admitting Provider: [...] Your Medications These medications were sent to [facility] [address], [facility] [address] Hours: [phone] Thursday through Thursday duxkusye acid 250 MG tablet cephalexin 500 MG capsule metFORMIN XR 500 MG 24 hr tablet zinc sulfate 220 (50 Zn) MG capsule Outpatient Follow-Up No future appointments. Test Results Pending at DischargeNone Information Provided to Patient/FamilyI discussed with the patient/family details of the stay. See After Visit Summary which were reviewed and shared with patient/family. Total time spent on Discharge: [address] [facility] 04/13/25 1:58 PM [facility] HospitalJudhefu1352-20-10 14:12:22* Marjorie Maxwell PTA - 04/13/2025 9:15 AM CDT Treatment Session Note Patient Name: Raj Morales Room #: MH6.634/MH6.634 Today's Date: 04/13/2025 Time in: Start Time: 914 Time out: Stop Time: 944 Total time: Time Calculation (min): 30 min Preferred Language: Iraqi Assessment & Plan Assessment: PT Assessment: Pt [...] of Assistance 1: Partial/Mod assistance Transfer To/From: Ejs-zi-Waazy/Boyhv-tm-Gwl Transfers 2:Level of Assistance 2: Partial/Mod assistance Transfer To/From: Pvm-xy-Ytcgp/Dpwco-xz-Gzy Assistive Devices And Adaptive Equipments: Walker, four-wheeled AM-PAC Basic Mobility:AM-[facility] Basic Mobility Inpatient Turning in bed without bedrails: A Lot Lying on back to sitting on edge of flat bed: A Lot Bed to chair: A Lot Standing up from chair: A Lot Walk in room: Total Climbing 3-5 stairs: Total Mobility Inpatient Raw Score: 10 -HLM Goal: 4 Mobility: Highest Level of Mobility Performed (JH-HLM)-HL Goal: 4 Patient Education: Education Documentation Mobility, [...] Raj Morales Today's Date: 04/12/2025 Preferred Language: Iraqi RM: MH6.634 Time in (Start time): 16:20 [...] d/t generalized weakness and deconditioning Transfer To/From: Wyf-lr-Begkp/Kivai-yd-Qjh Assistive Devices And Adaptive Equipments: Walker, four-wheeled [...] patient is most likely a candidate for chcf facility with worsening wounds and may get infected if he continues to remain homeless. chemical worker and casey saw operator on the case and will discuss with [...] Comment 1 Notified RN/MD POC Performing Location [place] [address] Basic Metabolic Panel Collection Time: 04/12/25 5:51 [...] Comment 1 Notified RN/MD POC Performing Location [place] [address] I have personally reviewed Labs Medicationsascorbic acid, [...] will benefit from getting placed at a chcf facility for continued wound care. Assessment & [...] VTE prophylaxis: enoxaparin (Lovenox) syringe 40 mg [[id number]]Disposition: SNF referral in place. * Katharina Gallo [...] VTE prophylaxis: enoxaparin (Lovenox) syringe 40 mg [[id number]]Disposition: Home once medically stable * Juhi Clements, PT - 04/11/2025 11:42 AM CDT Evaluation and Treatment Note Patient Name: Raj Morales Today's Date: 04/11/2025 Pt seen in room: [place] [address] [address] Start Time: 1142 Stop Time: 1212 Time Calculation (min): 30 min Preferred Language: Iraqi Assessment & Plan Assessment: During PT evaluation, [...] (!) 190/77 (!) 115 -- -- -- 04/10/252 -- -- 64 18 95 % 04/10/252350 [...] (Rollator) Prior Level of Function: Level of [place]: Ambulated with assistive device (comment) (Rollator) ADL [...] upper extremity supported, Left upper extremity supported (EMAIL MARKETING COORDINATOR) Static Standing-Level of Assistance: Substantial/Max assistance (x [...] able to acheive upright posture with BUE EMAIL MARKETING COORDINATOR with therapist in front with Mod A Transfer To/From: Mpy-qp-Wpdyl/Qsicc-hs-Tga Assistive Devices And Adaptive Equipments: Walker, four-wheeled (and EMAIL MARKETING COORDINATOR) Extremity Assessments:Right Lower Extremity RLE Assessment RLE [...] stairs: Total Mobility Inpatient Raw Score: 11 -HLM Goal: 4 Static standing (1 or more [...] Evaluation and Treatment Patient Name: Raj MoralesMRN: [id number] Today's Date: 04/11/2025 Time in: Start Time: 1141 Time out: Stop Time: 1212 Total time: Time Calculation (min): 31 min Pt seen in room: 6.634/6.634 Preferred Language: Iraqi Assessment & PlanPt is a 70-year-old homeless [...] Walker rolling or standard Prior Function:Level of [place]: Ambulated with assistive device (comment) ADL Assistance: [...] w/ RW; however pt attempted w/ radhika EMAIL MARKETING COORDINATOR and able to progress to standing; pt had to return to sitting and unable to take further steps at this time due to weakness/fatigue Transfer To/From: Bed, Ngr-xe-Hgfvf/Uhfqs-mx-Nkv Assistive Devices And Adaptive Equipments: Walker, four-wheeled, Other (radhika EMAIL MARKETING COORDINATOR) Functional MobilityFunctional Mobility Functional Mobility: Pt required mod-max assist to maintain standing balance w/ radhika EMAIL MARKETING COORDINATOR; difficulty progressing to mobility at this time [...] w/ RW; however pt attempted w/ radhika EMAIL MARKETING COORDINATOR and able to progress to standing; pt had to return to sitting and unable to take further steps at this time due to weakness/fatigue Transfer To/From: Bed, Hxp-yz-Cnjlb/Ucoct-pa-Yiw Assistive Devices And Adaptive Equipments: Walker, four-wheeled, Other (radhika EMAIL MARKETING COORDINATOR) AM-PAC Daily Activity:Putting on and taking off [...] to improve endurance and activity tolerance for jainism of independence with IADLs (Progressing) Start: 04/11/25 Expected End: 05/06/25 Treatment Note: If this is the last documented treatment, then it will signify discharge from acute care prior to discharge from the therapy service and will serve as the discharge summary. Valentina Sainz OT [facility]2025-05-22 14:12:22Pending Results Scheduled Orders Name Type Priority [...] on patient's age to complete this topic [facility] HospitalWqdxxdt7419-29-56 14:12:22 Diagnosis Open wound of both lower ext remities with complication, initial encounter - Primary Open wound of both lower ext remities with complication, initial encounter Non-traumatic rhabdomyolysis Syncope, unspecified syncope type Rhabdomyolysis PAUL (acute kidney injury) (H CC) Type 2 diabetes mellitus COVID-19 virus infection [facility] HospitalKtwbabj7257-35-41 14:12:22 [place] 715525-05-22 12:14:45 Discharge instructions were given to patient by discharge nurse. Patient's iv was removed and belongings were gathered. Report was called to Angie HENSON at [facility][Note 3]. [facility]Park[facility] HospitalOtvpdtv3819-20-90 12:02:24 Discharge packet kept with chart. Primary RN to call report. [facility]2025-05-22 08:00:00 The patient is Moderately Stable - Low risk of patient condition declining or worsening The patient's goals for the shift include rest The clinical goals for the shift include complet dignostic test [facility] HospitalKrtifsl6714-47-52 03:46:29 The patient is Moderately Stable - Low risk of patient condition declining or worsening The patient's goals for the shift include rest The clinical goals for the shift include complet dignostic test [facility]2025-05-21 15:21:07 The patient is Moderately Stable - Low risk of patient condition declining or worsening The patient's goals for the shift include rest The clinical goals for the shift include complet dignostic test Over the shift, the patient did not make progress toward the following go [facility]2025-05-21 02:36:52 The patient is Moderately Stable - Low risk of patient condition declining or worsening The patient's goals for the shift include rest The clinical goals for the shift include complet dignostic test [facility] HospitalGogqjvr1631-62-63 15:10:21* Ro Calixto - 04/11/2025 3:06 PM CDT CHW unable to reach patient. No phone on file. Case to be closed. [facility] HospitalKxiaijd4670-41-84 15:10:21 [facility] HospitalDshqlql7822-74-75 15:10:21 [facility] HospitalUxktmkg9288-93-61 13:24:14 Images from the original note were [...] now healed. Wound assessed and redressed by nurses director today Wound Assessment: Wound Location: Right chest [...] room, please check with [employer] or nurses director. ==== Recommendations: -Turn every 2 hours, uses [...] Do not use Allevyn with runny stools. LOIS, RN present for wound assessment and informed of recommendations. Sabino OSPINA informed of wound care recommendations via Secure Chat. Unit nurse is responsible for wound care. Reconsult if wound deteriorates or does not improve. Please call if you have questions. Adilene Ugarte RN, BSN, [facility] [place]: [phone] [facility]: [phone] T Wound Care Registered NurseMemoriLamb Healthcare CenterBagxdtj3305-17-15 04:21:14 Problem: Pain - Adult Goal: Verbalizes/displays adequate comfort level or baseline comfort level Outcome: Progressing Problem: Safety - Adult Goal: Free from fall injury Outcome: Progressing Problem: Discharge Planning Goal: Discharge to home or other facility with appropriate resources Outcome: Progressing Problem: Chronic Conditions and Co-morbidities Goal: Patient's chronic conditions and co-morbidity symptoms are monitored and maintained or improved Outcome: Progressing T [facility] HospitalUrremyy5833-53-02 22:59:16 The patient is Moderately Stable - Low risk of patient condition declining or worsening The patient's goals for the shift include rest The clinical goals for the shift include completion of diagnostics Over the shift, the patient did not make progress toward the following goals. Barriers to progression include . Recommendations to address these barriers include [facility]2025-05-19 11:46:00 Associated Order(s): ECG 12 lead (arrhythmia) [...] Procedure Abnormality Status --------- ------ Complete Blood Count[[id number]] Abnormal Final result Automated Differential[[id number]] Abnormal Final result Please view results for these tests on the individual orders. TROPONIN I HIGH SENSITIVITY CARESET Narrative: The following orders were created for panel order Troponin I High Sensitivity Careset. Procedure Abnormality Status --------- ------ Troponin I High Sensitiv...[[id number]] Normal Final result Troponin I High Sensitiv...[[id number]] In process Please view results for these [...] ED Physician in the absence of a tankman: yes Previous ECG: Previous ECG: Unavailable Interpretation: [...] MADY CHAUHAN Inpatient consult to Hospitalist - [[id number]] Other Date/Time Event User Comments 04/10/25 165 Other Consult Ordered MALINI STOKES Inpatient consult to Nutrition Services - [[id number]] 04/10/251658 Other Consult Ordered MALINI STOKES Inpatient consult to Wound Care - [[id number]] ED Course : ED Course: as of 04/10/251721April 10, 2025 164 I gave him an update on his test results and spoke with his about hospitalization. He demonstrates verbal understanding and agrees to hospitalization. [SB] [address] Stokes. Will admit to the hospital for further care. [SB] ED Course: User Index [SB] Mady Chauhan MD Diagnoses as of 04/10/251721 Open wound of both lower extremities with [...] MADY CHAUHAN Inpatient consult to Hospitalist - [[id number]] Other Date/Time Event User Comments 04/10/25 165 Other Consult Ordered MALINI STOKES Inpatient consult to Nutrition Services - [[id number]] 04/10/25 1659 Other Consult Ordered MIKALAVIVIANAMALINI Inpatient consult to Wound Care - [[id number]] Applicable prescriptions New Prescriptions No medications on file Disposition:Admit/Observation No follow-up provider specified. Mady Chauhan MD 04/10/25 1722 [facility]ys5212[facility]30-21 13:20:20* Consultation (Routine) - Pending Review Specialty Diagnoses / Procedures Referred By Teresa yancey Referred To Contact Middle School Teacher Diagnoses Bilateral lower extremity edema Broderick Bedolla MD [address] [place] [address] Phone: tel: fax: [employer] [address] [place] [address] [address] Phone: tel: fax: Referral ID Status Reason Start Date Expiration Date Visits Requested Visits Authorized [id number] Pending Review Specialty Services Required 04/04/2025 10/01/2025 1 1 [facility] SystemVqpkevy3165-67-24 13:20:20* [facility] SystemMyfsuon7041-05-81 13:20:20* Calculated C-SSRS Risk Score (Lifetime/Recent) Answer Date of Assessment Author No Risk Indicated 04/04/2025 7:46 AM CDT Tessie Arora RN * [place] Suicide Severity Rating Scale (Screener/Recent Self-Report) Question Answer Date of Assessment Author 1. Wish to be (Past 1 Month) No 025 7:46 AM Tessie Hicks RN 2. Non-Specific Active Suici mohit Thoughts (Past 1 Month) No 04/04/2025 7:46 AM ALAINAT Nicol Arora RN 6. Suicidal Behavior (Lifetime) No 7:46 AM ALAINAT Tessie Arora RN [facility] SystemHvchdiv6286-07-32 13:20:20Pending Results Scheduled Orders Name Type Priority [...] patient's age to complete this topic Henny RecioZxexjcm1363-74-00 13:20:20 Diagnosis Bilateral lower extremity ed michelle - Primary Henny RecioEdavdxr8969-18-08 13:20:20 Henny RecioCbzbwpx2518-68-38 12:59:13* Calculated C-SSRS Risk Score (Lifetime/Recent) Answer Date of Assessment Author No Risk Indicated 04/04/2025 7:46 AM CDT Tessie Arora RN * [place] Suicide Severity Rating Scale (Screener/Recent Self-Report) Question Answer Date of Assessment Author 1. Wish to be (Past 1 Month) No 025 7:46 AM ALAINAT Tessie Arora RN 2. Non-Specific Active Suici mohit Thoughts (Past 1 Month) No 04/04/2025 7:46 AM CDT Nicol Arora RN 6. Suicidal Behavior (Lifetime) No 5 7:46 AM CDT Tessie Arora RN [facility] HospitalHefkdqu3344-01-17 12:59:13 [facility] HospitalXxumush6387-15-11 12:59:13 [facility] HospitalKiokprz5658-95-21 12:58:18Community Resource Recommendations [facility] HospitalNdutsis6487-71-97 12:58:18 [facility] HospitalOnaiyqu8927-58-07 12:58:18* Calculated C-SSRS Risk Score (Lifetime/Recent) Answer Date of Assessment Author No Risk Indicated 04/04/2025 7:46 AM ALAINAT Tessie Arora RN * [place] Suicide Severity Rating Scale (Screener/Recent Self-Report) Question Answer Date of Assessment Author 1. Wish to be (Past 1 Month) No 025 7:46 AM Tessie Hicks RN 2. Non-Specific Active Suici mohit Thoughts (Past 1 Month) No 04/04/2025 7:46 AM CDT Nicol Arora RN 6. Suicidal Behavior (Lifetime) No 5 7:46 AM Tessie Hicks RN [facility] HospitalImvtwzj1708-79-55 12:58:18* Ro Calixto - 04/04/2025 12:45 PM CDT Patient FTF to request assistance with healthcare services. Provider referral. Referred back to PCP. CHW educated patient on PCP/Medical Home or provided CHW educated patient on ER usage or provided CHW educated patient on CRC or provided CHW educated patient on Good Rx or provided CHW educated patient on [facility] or provided CHW educated patient on Nurseline or provided CHW educated patient on The way home skilled nursing list or provided CHW educated patient on [facility] or provided CHW educated patient on [facility] or provided CHW educated patient on [employer] or provided CHW educated patient on [facility] Apartments or provided Continuing Care [facility] - [facility] [address] [facility] [address] Website: [email or web address]/locations/unwabizo-bhrvttgrz-khoyye/ Request Status: Accepted Services: Residential Housing Resource for: Housing Stability Languages: Iraqi, Puerto Rican Cost: Reduced Cost Hours of Operation Thursday -- Thursday 9:00 AM - 4:00 PM Thursday 9:00 AM - 4:00 PM Thursday 9:00 AM - 4:00 PM 9:00 AM - 4:00 PM Thursday 9:00 AM - 4:00 PM Thursday -- [facility] at [facility] [address], [address], [facility] [address] Request Status: Accepted Services: Food Insecurity Services, Food Pantry, Health Education, Help Fill Out Forms, Help Understanding Government Programs Resource for: Adolescent Education, Caregiver Education and Work, Child Education, Financial Resource Strain, Food Insecurity Insiders@ Project (HFB) - Community Assistance Program (CAP) [address] [facility] [address] Website: https://www.staffordsvillePathfire.org/our-programs/communityassistanceprogram/ Request Status: Accepted Services: Disability Benefits, Government Benefits, Help Fill Out Forms, Navigating the System Resource for: Financial Resource Strain Languages: Iraqi, Puerto Rican Cost: [facility] [address] [facility] [address] Request Status: Accepted Services: Housing Insecurity Services, Mental Health Services, Overnight Jail Resource for: Caregiver Health, Depression, Housing Stability, Stress The Way Home - Coordinated Access [address] [facility] [address] Website: https://[facility].org/about-us/ Request Status: Accepted Services: Help Find Housing, Navigating the System Resource for: Housing Stability Languages: Iraqi Cost: Free Hours of Operation Thursday -- Thursday 8:00 AM - 2:30 PM Thursday 8:00 AM - 2:30 PM Thursday 8:00 AM - 2:30 PM 8:00 AM - 2:30 PM Thursday 8:00 AM - 2:30 PM Thursday -- [address], [facility] [address] Website: referral.[place].Quotefish Request Status: Accepted Services: Elder Community Support/Recreation, Financial Assistance, Food Pantry, Goods Resource for: Financial Resource Strain, Food Insecurity, Social Connections resource to patient. CHW instructed Patient to make appointment with Community Resource [place] for help with basic needs. Patient was educated on documents needed for the appointment. Follow up needed active. Follow up by ER Navigator or case to be closed. [facility] HospitalJxrwuyd5743-43-32 12:58:18 [facility] HospitalPsrsmya9829-10-86 07:28:05 Pt given printed and verbal discharge [...] gait, in no apparent distress. ON Panchal RNSouthern [facility] Medical CenterMtsfts1231-33-41 06:21:44 CC: trip and fall around 5:45AM. Patient c/o bilateral knee pain, has abrasions on L leg. Patient denies injury to head, no blood thinners. EMS gave 500MG Tylenol FING ACCOUNT MANAGER [facility] CenterUcqrhc8392-75-11 12:24:26 Pt called from lobby, no response. Pt left before receiving discharge instructions. FING ACCOUNT MANAGER Vandana Gallegos [place] 946995-01-29 11:16:55 Reported fall off of walker, no injuries, no complaints of pain. Patient reporting to EMS that he just wants a new walker. Ambulatory, vitally stable. HX: DM. FING ACCOUNT MANAGER Tiara Bentley [facility] RegionalDifvgp4712-59-66 15:22:27 TRANSITIONAL CARE MANAGEMENT ASSESSMENT 08/26/2024 Raj Morales [id number] Raj Morales is a 69 year old /White male was admitted on 08/23/24 to [facility] ICU. He was discharged on 08/25/24 with discharge disposition of HR- Routine Discharge. Admitting Physician: Raj Garcia Discharge Diagnosis: Principal Diagnosis: Hypoglycemia No linked episodes TCM Wig-kkjh-yy-face outreach documentation: CM made follow up call to patient post-discharge. No answer and call went to voicemail. CM left a discreet message with purpose of call and CM's call back information. Two attempts made to reach patient. Discharge Assessment Chart Assessed: 08/26/24 TCM Outreach Completed: 08/26/24 Future Appointments: Martell Fallon [facility] RegionalQawydf2844-26-69 12:00:32 CM made follow up call to patient post-discharge. No answer and call went to voicemail. CM left a discreet message with purpose of call and CM's call back information. [facility] - Dngwgx1817-81-48 12:51:46 Problem: Falls, Risk of Goal: Absence of falls 08/25/2024 1251 by Sofi Auguste RN Outcome: Adequate for discharge 08/25/2024 0715 by oSfi Auguste RN Outcome: Not progressing as expected Problem: Pain Goal: Control of pain at or below patient's documented comfort goal 08/25/2024 1251 by Sofi Auguste RN Outcome: Adequate for discharge 08/25/2024 0715 by Sofi Auguste RN Outcome: Not progressing as expected Goal: Reduction in pain sensation 08/25/2024 1251 by Sfoi Auguste RN Outcome: Adequate for discharge 08/25/2024 [...] Auguste RN Outcome: Not progressing as expected [facility] Sofi Auguste [facility] RegionalVbdstw0137-94-52 07:16:04 Problem: Falls, Risk of Goal: Absence [...] specified parameters Outcome: Not progressing as expected [facility]2024-10-02 22:19:08 Problem: Falls, Risk of Goal: Absence [...] within specified parameters Outcome: Progressing as expected [facility] Kamilla Prajapati [facility] RegionalHkfrdy5937-76-75 08:52:09 Problem: Falls, Risk of Goal: Absence [...] within specified parameters Outcome: Progressing as expected [facility] Dayana Jenkins [facility] RegionalTfccbu1262-50-02 23:13:25 Problem: Falls, Risk of Goal: Absence [...] within specified parameters Outcome: Progressing as expected [facility]2024-10-01 15:41:50 Problem: Falls, Risk of Goal: Absence [...] venous thromboembolism (Risk) Outcome: Progressing as expected [facility]2024-10-01 14:57:39 Patient admitted to ICU 2101 for diagnosis of Hypoglycemia Patient agrees to admission, discussed plan of care with patient and family. Patient is awake, alert, oriented, resp reg unlabored, color appropriate for race, PIV intact No adverse reaction to medications administered while in ED Belongings with patient to unit [place] 104744-10-01 14:52:51 Nurse Report Report given to inspector agricultural commodities. Chief complaint, assessment findings, infusion verify and orders reviewed. Plan of care discussed. Patient/family members verbalized understanding. Josselin Saldivar RN [facility]2024-10-01 09:11:44 EMS states pt was in [facility] parking lot and was seen on the ground by bystanders who called 911. The fall was unwitnessed. Pt has abrasions to head and right knee. Complains of left knee pain and does not remember anything from the fall. Bg was 33 when ems arrived. [place] 104744-10-01 09:09:00 [facility] Emergency Department Note Patient Name: Raj Morales Date of : 1955 69 year old male Treatment Room: Primary Care Physician: PATIENT DOES NOT HAVE A PCP Patient Escorted by: Self [9] Mode of Arrival: Personal means [1] EMS Treatment Prior to ED Arrival: PHOTOGRAPHER'S ASSISTANT treatment: Other (comment) PHOTOGRAPHER'S ASSISTANT treatment comments: D10 rac 20g Travel and [...] 12/01/2019 Added automatically from request for surgery [id number] Dyslipidemia Edema of both legs 02/28/2020 Erectile [...] N/A 12/30/2019 Surgeon: Glo Finn MD; Location: [facility] CORNEAL TRANSPLANT,LAMELLAR Bilateral KNEE ARTHROSCOPY 1998 OTHER PENETRATING KERATOPLASTY PHACOEMULSIFICATION OF CATARACT WITH INTRAOCULAR LENS IMPLANT Right 03/17/2019 Surgeon: Virgil Martinez MD; Location: [facility] Review of Systems: Review of Systems Unable [...] 0.01 - 0.09 10*3/uL COMP. METABOLIC PANEL (86364) - Abnormal NA 136 135 - 145 [...] (AUTOMATED) Cbc with Diff Comp. Metabolic Panel (88560) Lactic Acid Whole Blood Lactic Acid Whole [...] 1/2" Syrg Comments: Reason for Stopping: Insulin [place], Disposable, (PHUC PEN NEEDLE) 32 gauge x [...] Electronically signed by: Riana Paul DO 08/23/241723 [facility] - Nryxpy4236-78-99 11:03:58 TRANSITIONAL CARE MANAGEMENT ASSESSMENT 07/04/2024 Raj Morales [id number] Raj Morales is a 69 year old /White male was admitted on 06/23/24 to [facility]. He was discharged on 07/01/24 with discharge disposition of HR- Routine Discharge. 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 Hx HTN Hx HLD Hx IDDM w/ peripheral neuropathy Hypomagnesemia resolved 1.7 No linked episodes TCM Gwu-wlyr-vt-face outreach documentation: Discharge Assessment Chart Assessed: 07/04/24 Chart Reviewed - Post Discharge Call Deferred due to Change in Discharge Status.: Discharged to SNF (SNF location: [facility], [address] [place] [address] () [phone] (f) [phone]) TCM Outreach Completed: 07/04/24 Future Appointments: Martell Fallon [facility] RegionalQrjeus3923-95-44 15:47:57 Problem: Falls, Risk of Goal: Absence [...] infection Outcome: Adequate for discharge Homa More [facility] RegionalPcckzy6195-56-51 16:53:03 Problem: Falls, Risk of Goal: Absence [...] infection Outcome: Progressing as expected Kera Mcfadden [facility] RegionalKmvowe2163-61-00 23:46:25 Problem: Falls, Risk of Goal: Absence [...] infection Outcome: Progressing as expected Parvin Mcconnell [facility] RegionalKsugsh6487-72-87 06:23:30 Problem: Falls, Risk of Goal: Absence [...] Outcome: Progressing as expected T Jessica Williamson [facility] RegionalDmzjwd0912-00-97 19:05:35 Problem: Falls, Risk of Goal: Absence [...] infection Outcome: Progressing as expected Martha White [facility] RegionalHjeuib0093-65-33 02:17:10 Problem: Falls, Risk of Goal: Absence [...] Absence of infection Outcome: Progressing as expected [facility] CenterGikgcs4675-50-74 16:18:42 Problem: Falls, Risk of Goal: Absence [...] Outcome: Progressing as expected T Anne Cisneros RNSouthern [facility] Medical CenterDpgpib4841-19-16 09:23:43 Vancomycin Therapeutic Monitoring Note Pharmacy to monitor vancomycin dosing for patient Raj Morales, [id number]. Primary Physician: Dr. Garcia ID Physician, if [...] mg IV Q12H @ 1129, 2233 - 3 -- 79.3 1250 mg IV Q12H @ [...] any questions or concerns. Azar Ugarte PharmD, [facility] Pager: [phone] Electronically signed by Azar Ugarte [facility] at 06/27/2024 9:24 AM CDT Azar Ugarte [facility]2024-08-05 01:59:04 Problem: Falls, Risk of Goal: [...] Absence of infection Outcome: Progressing as expected [facility]Eflztn8240-17-35 09:56:06 Problem: Falls, Risk of Goal: Absence [...] Outcome: Progressing as expected T Libby Judge [facility] RegionalYlqjez6223-41-15 05:59:09 Problem: Falls, Risk of Goal: Absence [...] Absence of infection Outcome: Progressing as expected [facility] Kamilla Prajapati [facility] RegionalGksqwn3983-05-84 18:13:35 Problem: Falls, Risk of Goal: Absence [...] Absence of infection Outcome: Progressing as expected [facility]2024-08-03 11:38:31 Summary: Vancomycin Monitoring Vancomycin Therapeutic Monitoring Note Pharmacy to monitor vancomycin dosing for patient Raj Morales, [id number]. Primary Physician: Dr. Garcia ID Physician, if [...] any questions or concerns. Ilene Marroquin PharmD, [facility] Pager: [phone] 06/25/2024 11:38 Electronically signed by Ilene Marroquin [facility] at 06/25/2024 11:38 AM CDT [facility]quin [facility] - Fscbfc9578-96-11 01:01:18 Problem: Falls, Risk of Goal: Absence [...] of infection Outcome: Progressing as expected T [facility] CenterCesise9039-79-35 16:18:07 Problem: Falls, Risk of Goal: Absence [...] Absence of infection Outcome: Progressing as expected [facility] Digna Rodriguez RNSouthern [facility] Medical CenterRlgtxk3906-65-28 14:48:17 Summary: Vancomycin Monitoring Images from the original note were not included. Vancomycin Therapeutic Monitoring Note Pharmacy to monitor vancomycin dosing for patient Raj Morales, [id number]. Primary Physician: Dr. Garcia ID Physician, if [...] Marroquin RPH, RPH 06/24/2024 2:36 PM [facility] Department of Pharmacy - [facility] Phone: ADC: [phone] [facility] CenterAxzxdm2018-33-32 23:49:41 Problem: Falls, Risk of Goal: Absence [...] infection Outcome: Progressing as expected Enrique Dumont RNSouthern [facility] Medical CenterYewxew6996-69-62 15:52:58 Patient admitted to [facility] for diagnosis of bacteremia, fall. Patient agrees to admission, discussed plan of care with patient and family. Patient is awake, A&Ox4, RR even and unlabored on RA. Color appropriate for race. PIV intact x1. No adverse reaction to medications administered while in ED. Belongings with patient to unit. Justine Peres [facility] RegionalTupcpj1979-06-24 15:14:29 Nurse Report Report given to SIXTO Sawyer. Chief complaint, assessment findings, infusion verify and orders reviewed. Plan of care discussed at bedside with patient and both nurses. Patient/family members verbalized understanding. Justine Peres RN T [facility] CenterZrwlki2633-91-10 11:27:44 Patient arrived by [facility] for a fall. EMS reports patient fell off his walker, and the hit the left side of his head. No LOC. BGL 285. Patient is awake and alert, oriented x4. Contusion noted to the left side of the head. Quinn Moyer [facility] RegionalHgwjll1549-40-69 11:25:00 AdmissionCare Guideline: Sepsis (and Other Febrile [...] performed) AdmissionCare documentation entered by: Juno Hwang [facility], 28th edition, Copyright ? 2023 [facility] [employer] [facility] All Rights Reserved. [id number]:54:51-05:00 [facility] CenterVhmzgk1138-85-63 12:48:08 Pt given printed and verbal discharge [...] gait, in no apparent distress. Elsa White [facility] RegionalVatouc8687-58-71 10:53:49 Patient arrived ambulatory via pov, states he was sent here for positive blood cultures. Patient c/o of abrasion to left chest/axilla area. Patient does not know which DrNeri referred him here Zarina Mandujano [facility] RegionalCmsevn5378-47-62 10:52:00 Images from the original note were not included. [facility] Emergency Department Note Patient Name: Raj Morales Date of : 1955 69 year old male Treatment [facility]: [facility] Primary Care Physician: PATIENT DOES NOT HAVE [...] and DC Home. 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) 10/12/2019 Cataract OS ONLY Cellulitis of foot, left 04/12/2020 Diabetes Diabetic eye exam 12/01/2019 Added automatically from request for surgery [id number] Dyslipidemia Edema of both legs 02/28/2020 Erectile [...] N/A 12/30/2019 Surgeon: Glo Finn MD; Location: [facility] CORNEAL TRANSPLANT,LAMELLAR Bilateral KNEE ARTHROSCOPY 1998 OTHER PENETRATING KERATOPLASTY PHACOEMULSIFICATION OF CATARACT WITH INTRAOCULAR LENS IMPLANT Right 03/17/2019 Surgeon: Virgil Martinez MD; Location: [facility] Review of Systems: Review of [...] capsule 1,000 mg cephALEXin 500 mg capsule vgafvida-ighhibzibn-kevhmmjuq 3.5mg-400 unit- 5,000 unit/gram topical ointment First [...] capsule by mouth 4 (four) times daily. PYAMNJOA-LSPMWPFIJF-SPSGBETIA 3.5MG-400 UNIT- 5,000 UNIT/GRAM TOPICAL OINTMENT Apply [...] as directed LANCETS (TRUEPLUS LANCETS) 33 GAUGE [facility] Monitor Blood Glucose daily LISINOPRIL-HYDROCHLOROTHIAZIDE 10-12.5 MG PER TABLET Take 1 tablet by mouth once daily METFORMIN 1,000 MG TABLET Take 1 tablet by mouth 2 (two) times daily with meals. misterbnbCELLU-NOTE MEDICAL SUPPLY [facility] E11.8: dispense Insulin Syringe 31 gauge brand [...] by: Mulugeta Palma MD 06/20/24 1210 T [place] 155894-07-28 18:04:26 Patient given printed and verbal discharge [...] with steady gait, in no apparent distress. [facility] Jose Brooks [facility] RegionalCkluuk8740-75-14 16:31:13 Finished sandwich, chocolate pudding, half a jello cup and 2 packages of gram crackers. Patient fed him self independently. Tolerated well. [place] 104744-07-28 16:07:28 Provided patient with sandwich, jello, crackers and pudding. Patient swallowing well. Able to feed self independently. [place] 104744-07-28 13:45:00 Patient asked nurse "why are all the kids doing this" (makes hand sign), when nurse clarifies with patient states "there are 2 girls in my room, sitting there and and there (points to empty chairs) and they just crawled under my bed". [place] 104744-07-28 13:34:00 Patient arrived covered/soaked in urine. Tech and nurse cleaned patient and placed in clean gown. T [place] 155894-07-28 12:34:00 [facility] states: "Came in for chronic bodyaches for 3 years. No new complaints, BGL of 92 mg/dL." Patient states he falls everyday and that he fell today, no idea what time it happened. Patient not sure if the bruise/abrasion on his forehead is from today's fall or not. T Desire Panchal [facility] RegionalLxcysj1292-98-49 19:54:51 Pt given printed and verbal discharge [...] find transportation home, in no apparent distress [place] 104744-07-25 18:10:23 [facility] from standing. EMS states that he tripped on walker. Pt has an abrasion to the forehead and no other c/o. No LOC, and denies dizziness. Hx of stroke Jame Sharp [facility] RegionalTzgpet7409-00-06 00:29:11 Pt discharged with diagnosis of fall from standing, right leg swelling, balance problem, encouraged hydration. Printed and verbal instructions reviewed with and given to pt. Pt. verbalized understanding of teaching and recommended follow-up. Denies questions or concerns at this time. Pt wheeled out to lobby at discharge. Appears in no apparent distress. chemical worker was consulted, pt will be in waiting room until franchise field consultant arrives. Advised to seek medical attention for new/prolonged/worsening of symptoms. No adverse reaction to meds given in ER noted upon discharge PIV d'cd, dressing to site, catheter in tact. Mel Obando [place] [id number] 23:32:56 Pt was given hygiene supplies and clothes and directed to the shower to take shower and freshen up due to no means to do so. Pt is "homeless". Pt was also given snacks T [place] 155894-07-24 18:07:43 Pt uses a walker to ambulate [place] 104744-07-24 18:00:18 Pt arrived via [facility] with c/o fall and edema to BLE. Pt reports "it feels like my equilibrium is off". Pt has a strong odor of urine. T Hemalatha Saini [place] 946994-07-24 17:52:00 Images from the original note were not included. [facility] Emergency Department Note Patient Name: Raj Morales Date of : 1955 69 year old male Treatment Room: TX5/TX5 Primary Care Physician: PATIENT DOES NOT HAVE A PCP Patient Escorted by: Self [9] Mode of Arrival: EMS - [facility] ([place]) [43] EMS Treatment Prior to ED Arrival: PHOTOGRAPHER'S ASSISTANT treatment: IVF;Saline lock Travel and Exposure Screening: [...] 12/01/2019 Added automatically from request for surgery [id number] Dyslipidemia Edema of both legs 02/28/2020 Erectile [...] N/A 12/30/2019 Surgeon: Glo Finn MD; Location[place] [facility] CORNEAL TRANSPLANT,LAMELLAR Bilateral KNEE ARTHROSCOPY 1998 OTHER PENETRATING KERATOPLASTY PHACOEMULSIFICATION OF CATARACT WITH INTRAOCULAR LENS IMPLANT Right 03/17/2019 Surgeon: Virgil Martinez MD; Location: [facility] Review of Systems: Review of Systems Cardiovascular: [...] 0.01 - 0.09 10*3/uL COMP. METABOLIC PANEL (93848) - Abnormal NA 136 135 - 145 [...] CONTRAST Cbc with Diff Comp. Metabolic Panel (39358) Lactic Acid Whole Blood Lactic Acid Whole [...] as directed LANCETS (TRUEPLUS LANCETS) 33 GAUGE [facility] Monitor Blood Glucose daily LISINOPRIL-HYDROCHLOROTHIAZIDE 10-12.5 MG PER TABLET Take 1 tablet by mouth once daily METFORMIN 1,000 MG TABLET Take 1 tablet by mouth 2 (two) times daily with meals. misterbnbCELLU-NOTE MEDICAL SUPPLY [facility] E11.8: dispense Insulin Syringe 31 gauge brand [...] Follow-up: Electronically signed by: Dejon Green DO 06/15/241 [facility] CenterOdksuo6481-16-05 05:25:21 Pt given printed and verbal discharge [...] leaving by wheelchair, in no apparent distress. [facility] CenterXcxxft2967-42-28 01:49:35 Pt brought in by [facility] for wound on right foot and elevated blood sugar. EMS reports pt's blood glucose was 580 T Milli Lopez RNSouthern [facility] Medical CenterMcmmbw7718-65-93 01:31:00 Images from the original note were not included. [facility] Emergency Department Note Patient Name: Raj Morales Date of : 1955 69 year old male Treatment Room: TX6/HI6 Primary Care Physician: PATIENT DOES NOT HAVE A PCP Patient Escorted by: Self [9] Mode of Arrival: EMS - [facility] ([place]) [43] EMS Treatment Prior to ED Arrival: PHOTOGRAPHER'S ASSISTANT treatment: ekg monitor tech;FSBG;IVF;Saline lock Travel and Exposure Screening: Symptoms Does [...] of Present Illness: History provided by: Patient refuge worker used: No Foot Pain Location: Foot Time [...] 12/01/2019 Added automatically from request for surgery [id number] Dyslipidemia Edema of both legs 02/28/2020 Erectile [...] N/A 12/30/2019 Surgeon: Glo Finn MD; Location: [facility] CORNEAL TRANSPLANT,LAMELLAR Bilateral KNEE ARTHROSCOPY 1998 OTHER PENETRATING KERATOPLASTY PHACOEMULSIFICATION OF CATARACT WITH INTRAOCULAR LENS IMPLANT Right 03/17/2019 Surgeon: Virgil Martinez MD; Location: [facility] Review of Systems: Review of [...] 0.01 - 0.09 10*3/uL COMP. METABOLIC PANEL (57134) - Abnormal NA 126 (*) 135 - [...] (AUTOMATED) Cbc with Diff Comp. Metabolic Panel (76364) Magnesium Urinalysis POCT GLUCOSE (AUTOMATED) POCT GLUCOSE [...] with instructions to follow up at the [facility] within 3 days for wound [...] as directed LANCETS (TRUEPLUS LANCETS) 33 GAUGE [facility] Monitor Blood Glucose daily LISINOPRIL-HYDROCHLOROTHIAZIDE 10-12.5 MG PER TABLET Take 1 tablet by mouth once daily METFORMIN 1,000 MG TABLET Take 1 tablet by mouth 2 (two) times daily with meals. MISCELLANEOUS MEDICAL SUPPLY [facility] E11.8: dispense Insulin Syringe 31 gauge brand [...] signed by: Mulugeta Palma MD 04/06/24 0351 [facility]2024-05-12 17:51:06 Pt given printed and verbal discharge [...] noted upon discharge and exit from ED. [facility] CenterTivojw6546-73-60 17:21:48 Images from the original note were not included. ER Weekend Press Hand Supervisor note: 04/03/2024 5:21 PM Met with the patient in room. Patient Aox4. [place] [address]. The patient was provided with cab voucher # [id number] Contacted [employer] [phone] Richard Maurer PhD, WASTEWATER SUPERVISOR, LCDC Care Management- Social Work Department of Care Management The [address] [address] O [phone] E [email or web address] Richard Mauerr [facility]2024-05-12 16:49:23 Dc after fluids [place] 155894-05-12 16:45:00 PT much more awake and alert. Pt provided with taxi voucher, food tray given. [place] 104744-05-12 15:18:54 Orthostatics 3:19 PM Lying: BP: 158/88 P: 87 Sitting: BP: 130/77 P: 86 Standing: BP: 126/71 P: 82 [facility] - Dcnhyx8922-89-28 14:51:50 Images from the original note were not included. ER Weekend Press Hand Supervisor note: 04/03/2024 2:51 PM RENEE met with the patient at the bedside. Initially, the patient was drowsy and unable to answer most questions. However, he expressed readiness to move to a personal residential and was willing to pay for it. RENEE contacted Ms. Weiss from [facility] ( ) and Madhavi Abraham ( ), who explained the financial requirements for staying at their personal care homes. They said he needed to pay a bit upfront and use some of his social security for the home. RENEE also spoke with Royer from [facility] and faxed clinicals for a pending Medicaid bed. Later, RENEE talked to Pan from [facility] about the referral made [...] disagreed with the plan for a personal residential, stating he receives around $900 in social security benefits (contradicting his earlier statement of $1200 to $1400) and did not want to pay for his stay. He expressed a preference for going to a skilled nursing. RENEE contacted Grover, User Experience Architect of the [facility], to secure a bed and discussed this with the patient. The patient agreed to go to the [facility] skilled nursing. RENEE informed him about a meeting with [facility] social media analyst Sonia Prajapati Thursday morning. The patient expressed unawareness of the meeting, so RENEE requested him to answer the phone when [facility] RENEE calls. RENEE also emailed [facility] social media analyst Sonia Prajapati regarding the situation, seeking her assistance. Richard Maurer PhD, WASTEWATER SUPERVISOR, [facility] Care Management- Social Work Department of Care Management The [address] Mun[address] [place] [address] O [phone] E [email or web address] CenterGjgymj7845-72-26 09:48:46 Pt to ED c/o falls that [...] in lowest position. Call light within reach. [facility] CenterNpnwvm5815-89-11 09:40:55 Raj Morales is a 69 year old male presents to ED triage with chief compliant of falls. EMS states that he has had multiple falls today, patient has a small abrasions to L forehead.- blood thinners. AAOx4. Skin warm and dry. VSS. RR E/U. NAD noted. Roomed for eval Parvin José RNSouthern [facility] Medical CenterRjaflt3323-14-66 09:39:00 Associated Order(s): EKG-12 Lead ROUTINE ONCE Pre-Procedure Diagnose(s): Fall, initial encounter; Injury of head, initial encounter Post-Procedure Diagnose(s): Fall, initial encounter; Injury of head, initial encounter Images from the original note were not included. 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) 10/12/2019 • Cataract OS ONLY • Cellulitis of foot, left 04/12/2020 • Diabetes • Diabetic eye exam 12/01/2019 Added automatically from request for surgery [id number] • Dyslipidemia • Edema of both legs [...] N/A 12/30/2019 Surgeon: Glo Finn MD; Location: [facility] • CORNEAL TRANSPLANT,LAMELLAR Bilateral • KNEE ARTHROSCOPY 1998 • OTHER • PENETRATING KERATOPLASTY • PHACOEMULSIFICATION OF CATARACT WITH INTRAOCULAR LENS IMPLANT Right 03/17/2019 Surgeon: Virgli Martinez MD; Location: [facility] OR Location Review of Systems: Review of [...] Medical Screening Begins ANA HAGAN MD -- 04/03/24 09 First Provider Evaluation ANA HAGAN MD -- [...] but is agreeable to go to the [facility]. Will reassess shortly [CD] 1433 AMMONIA(!): <9 [...] subsequently to follow commands. [facility] trying to assess the patient, she [...] ED Physician in the absence of a tankman: yes Previous ECG: Previous ECG: Compared to [...] as directed LANCETS (TRUEPLUS LANCETS) 33 GAUGE [facility] Monitor Blood Glucose daily LISINOPRIL-HYDROCHLOROTHIAZIDE 10-12.5 MG PER TABLET Take 1 tablet by mouth once daily METFORMIN 1,000 MG TABLET Take 1 tablet by mouth 2 (two) times daily with meals. [facility]ITAL[facility]LL[facility] E11.8: dispense Insulin Syringe 31 gauge brand [...] Electronically signed by: Ana Hagan MD 04/03/24 1546 [facility] - Uwbgqg6119-44-23 19:41:41 Pt discharged to home. Discharge instructions given to pt regarding management of condition and instructions to follow up with PCP. Pt verbalized understanding. PIV removed without complications. Patient in possession of all belongings. Pt ambulates to lobby with steady gait. Kunal Joiner [facility] RegionalXcsrwz2791-74-09 19:37:16 DISCHARGE HOLD: Pt requesting compression stockings. Materials management contacted. [facility] CenterMebnpi5048-61-90 12:35:04 Raj Morales is a 69 year old male presenting to ED with c/o fall. Patient reports using walker and reports stepped off a curb and fell. Patient reports hitting head on ground but denies LOC. No use of blood thinners. BGL "HI" for EMS. Patient received 400cc NS PHOTOGRAPHER'S ASSISTANT. BGL 526. Patient to green chairs due to ED saturation Shavon Linares [facility] RegionalVckeyp5006-46-36 18:51:55 Raj Morales verbalized an understanding of DC instructions. NAD. Respirations unlabored. Pt wheeled out to the ER lobby. Pt given cleaning wipes and reports he needs to get dressed prior to going to ER lobby. RENEE Gusman spoke with patient regarding transport. Porsha Encarnacion [place] 946994-05-07 18:44:41 Images from the original note were [...] pt never got back to her. This [facility] encouraged him to give her a call to arrange the housing she set up for him. HAIDER Sam Press Hand Supervisor [facility] - Care Management RENEE Office [email or web address] Naseem Argueta [facility]2024-05-07 14:46:31 Raj Morales is a 69 year old male presenting to ED via [facility] with c/o back pain. Patient reports mechanical fall earlier today with no LOC. No use of blood thinners. Patient to green chairs due to ED saturation Shavon Linares [facility] RegionalWbeznl8693-78-72 16:51:23 Naseem gallo/ social work is working on getting pt a ride. DC hold until completed. Mina Ordaz [facility] RegionalMbgpoj8964-71-67 13:07:59 Social work at bedside. [place] 155894-04-30 13:07:00 Images from the original note were not included. ED [facility] Case Note 03/22/2024 5:13 PM Transportation arranged via [employer] . Patient name: Raj Morales Discharge date: 03/22/2024 Reason for voucher: Pt doesn't have a means of transportation Voucher #: [id number] met with pt face to face Pt is ANIA Parikh [facility] Reinier In the future pt is made aware that they will need to find a ride home, unless they are non-ambulatory. Pt was made aware that the [facility] bus transportation picks up right in [...] LBSW gathered the following resources for pt; [facility] Resources Packet [employer] Non-Emergency Medical Transport Form [facility] Information/Registration Packet [facility] Flyer [place] services available/schedule form [facility] Flyer GoodRx Card 03/22/2024 3:33 PM This [...] PM This LBSW sent referral to Magda ([address] [address] ) to work him up for possibly inpt. Rehab 03/22/2024 1:07 PM This LBSW was consulted by SIXTO Enriquez regarding pt's need for housing and a new walker. This LBSW met with pt at bed side pt shared the following: - Pt has uncontrolled diabetes that hinders him from walking w/o assistance. - Pt has a daughter that lives in [place] that he is estranged from. 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 - Pt is currently homeless - Pt has [employer] as health insurance - Pt gets between $1300-$1400 a month from social security - Pt stays in front of [employer] [place] - Pt has [...] gait and steadiness of walking HAIDER Sam Press Hand Supervisor [facility] - Care Management Office [email or web address] Naseem BOWLINGCleveland Clinic Euclid HospitalFwkgjg1818-11-87 13:04:31 Pt requested help from social work for an upgraded walker and questions about housing options other than the [employer]. Social work was called. Will relay the message to pt. [facility]2024-04-30 11:08:13 Pt to XR [facility]2024-04-30 09:54:54 Raj Morales is a 69 year old male who presents to the ED with chief complaints of Left foot and leg swelling. Foot is warm to the touch. Pt rates pain as a 10/10. AAOx4. VSS. RR E/U. Skin warm and dry. NAD noted. Roomed for eval. [facility] Parvin José [facility] RegionalTcxokq3351-52-28 00:01:12 Patient received discharge instructions and voiced [...] with pcp. Pt provided with resources for [facility] Becerril [facility] RegionalUooecp8660-70-35 23:49:16 Dr. Green informed of pt repeat BGL and pt cleared for discharge Rachana Pettit [facility] RegionalDrfltj3437-65-96 23:48:43 SW bedside T [place] 155894-04-19 23:42:25 BGL 213 after completion of 2nd liter of NaCl and 2 hours post 10u IVP insulin [place] 104744-04-19 22:46:08 BGL: 258. This is after the first 1L NaCL and 1 hour post 10u IVP insulin [place] 104744-04-19 21:37:43 Dr. Millard confirmed to give 10u insulin IVP now [place] 104744-04-19 21:30:15 BGL 579. Provider contacted to verify IVP insulin order [place] 104744-04-19 21:19:00 Pt returned from imaging NAD noted T [place] 155894-04-19 20:28:55 Pt ao4 presents via EMS c/o progressive bilateral leg weakness. Pt reports he was suppose to be staying at [facility] but uncomfortable w sleeping conditions at skilled nursing. EMS glucometer read HI (monitor max at [...] approx 200ml NaCL given Dr. Millard bedside [facility]2024-04-19 20:16:12 Raj Morales is a 69 year old male presents to ED c/o bilateral leg weakness. Patient reports going on for 2-3 months, worsening tonight and unable to walk up steps to [facility]. Patient Aox4, NAD noted, VSS, RR e/u. PHOTOGRAPHER'S ASSISTANT 20g R wrist, BGL HI for EMS. EKG in triage. Patient to room for further evaluation. T Lacey Bentley RNSouthern [facility] Medical CenterQogkna3928-23-01 20:15:00 [facility] Emergency Department Note Patient Name: Raj Morales Date of : 1955 69 year old male Treatment [facility] Primary Care Physician: Rakesh Hazel Patient Escorted by: Self [9] Mode of Arrival: EMS - [facility] [30] EMS Treatment Prior to ED Arrival: PHOTOGRAPHER'S ASSISTANT treatment: Saline lock;IVF Travel and Exposure Screening: [...] time walking up the steps of the [employer] due to bilateral leg weakness. Patient states this has been going on for a couple of months but it was worst today. 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) 10/12/2019 Cataract OS ONLY Cellulitis of foot, left 04/12/2020 Diabetes Diabetic eye exam 12/01/2019 Added automatically from request for surgery [id number] Dyslipidemia Edema of both legs 02/28/2020 Erectile [...] N/A 12/30/2019 Surgeon: Glo Finn MD; Location: [facility] CORNEAL TRANSPLANT,LAMELLAR Bilateral KNEE ARTHROSCOPY 1999 OTHER PENETRATING KERATOPLASTY PHACOEMULSIFICATION OF CATARACT WITH INTRAOCULAR LENS IMPLANT Right 03/17/2019 Surgeon: Virgil Martinez MD; Location[place] [facility] Review of Systems: Review of Systems Constitutional: [...] 0.01 - 0.09 10*3/uL COMP. METABOLIC PANEL (06832) - Abnormal NA 130 (*) 135 - [...] VW Cbc with Diff Comp. Metabolic Panel (65118) Creatine Kinase Troponin I POCT GLUCOSE (AUTOMATED) [...] as directed LANCETS (TRUEPLUS LANCETS) 33 GAUGE [facility] Monitor Blood Glucose daily LISINOPRIL-HYDROCHLOROTHIAZIDE 10-12.5 MG PER TABLET Take 1 tablet by mouth once daily METFORMIN 1,000 MG TABLET Take 1 tablet by mouth 2 (two) times daily with meals. MISCELLANEOUS MEDICAL SUPPLY [facility] E11.8: dispense Insulin Syringe 31 gauge brand [...] Electronically signed by: Micah Millard MD 03/11/24 0126 [place] 104744-03-20 14:56:30 PT D/C home. GCS15, VS stable. Given D/C paperwork. Pt ambulatory at time of discharge. Pt educated on med usage, follow up care, s/s worsening condition, need for hydration. Pt verbalized understanding. [facility] arrived to transport patient. Pt given a care package upon discharge [place] 104744-03-20 14:54:31 Pt finishing food tray [place] 104744-03-20 11:55:54 Pt states he is dizzy when he walks and has pain. Pt reports having these symptoms for months. T Merry Wise [facility] RegionalCjmxza3334-10-90 21:15:50 Pt given printed and verbal discharge instructions regarding bilateral low back pain, encouraged hydration, Pt verbalized understanding of instructions,pt encouraged to follow up with pcp Advised to seek medical attention for new/prolonged/worsening of symptoms, No adverse reaction to meds given in ER noted upon discharge Awake, alert oriented, resp reg unlabored, skin w/d, pt leaving in no apparent distress, Chelsea Jackson RNSouthern [facility] Medical CenterWybopr2418-82-54 21:08:09 Pt has been discharged for several hours. He is being loaded into a WC at this time to wait in lobby. He asked nursing to call [facility]. Ms. Gonzalez states that her and her friend are trying to find him a skilled nursing. At this pt being placed in the lobby. [place] 155894-03-19 14:20:00 Patient c/o lower back pain. Denies injury [place] 155894-03-19 14:01:15 Patient transported by [place], patient c/o back pain and needed to be cleaned up. Patient is homeless and incontinent of urine. Quinn Moyer [facility] RegionalWvrfrl0100-58-67 13:59:00 Images from the original note were not included. [facility] Emergency Department Note Patient Name: Raj Morales Date of : 1955 69 year old male Treatment Room: Room/bed info not found Primary Care Physician: Rakesh Hazel Patient Escorted by: Self [9] Mode of Arrival: [facility] [43] EMS Treatment Prior to ED Arrival: PHOTOGRAPHER'S ASSISTANT treatment: Saline lock Travel and Exposure Screening: [...] 12/01/2019 Added automatically from request for surgery [id number] Dyslipidemia Edema of both legs 02/28/2020 Erectile [...] N/A 12/30/2019 Surgeon: Glo Finn MD; Location: [facility] CORNEAL TRANSPLANT,LAMELLAR Bilateral KNEE ARTHROSCOPY 1998 OTHER PENETRATING KERATOPLASTY PHACOEMULSIFICATION OF CATARACT WITH INTRAOCULAR LENS IMPLANT Right 03/17/2019 Surgeon: Virgil Martinez MD; Location: [facility] Review of Systems: Review of [...] as directed LANCETS (TRUEPLUS LANCETS) 33 GAUGE [facility] Monitor Blood Glucose daily LISINOPRIL-HYDROCHLOROTHIAZIDE 10-12.5 MG PER TABLET Take 1 tablet by mouth once daily METFORMIN 1,000 MG TABLET Take 1 tablet by mouth 2 (two) times daily with meals. MISCELLANEOUS MEDICAL SUPPLY [facility] E11.8: dispense Insulin Syringe 31 gauge brand [...] signed by: Jose Roberto Ireland MD 02/09/240 [facility] CenterUihfeu3720-27-69 11:48:50 Written/verbal d/c instructions, out of er via wheelchair, pt requests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
[2025-07-06 14:41] LABS: Absolute Lymphocytes (CBC) 1.0 K/uL (0.7-4.9); Hematocrit 35.6 % (39.6-49.0); Hemoglobin 11.8 g/dL (13.6-17.9); MCH 28.6 pg (27.0-35.0); MCHC 33.2 g/dL (32.0-36.0); MCV 86.3 fL (80-100); MPV 8.0 fL (7.6-11.3); Nucleated RBC Absolute Count 0.0 (0-0); Nucleated Red Blood Cells % 0.1 % (0-0); RBC Red Blood Cell Count 4.12 M/uL (4.33-5.43); White Blood Count 12.10 thou/uL (4.3-10.9)
[2025-07-06 14:57] LABS: Anion Gap 11.9 mEq/L (5.0-15.0); BUN Blood Urea Nitrogen 50.0 mg/dL (7-18); Glucose Level 337.0 mg/dL (74-106); Potassium 4.9 mEq/L (3.5-5.1)
[2025-07-06] MEDS ORDERED: DOXYCYCLINE 100 MG CAP PO ONE (15:48)
[2025-07-06] MEDS ORDERED: NA CHLORIDE 0.9% 500 ML ONE ×2 (15:49→16:45)
[2025-07-06] MEDS ORDERED: INSULIN REGULAR (HUMAN) 100 UNIT/ML ONE (16:44)
[2025-07-06 17:01] LABS: Sqamous Epithelial <5 /HPF (None Seen); Urine Culture Reflex Order NOT NEEDED; Urine Microscopic Reflex YN ORDER UMIC; Urine Yeast (Budding) Trace /HPF (None Seen)
--- NOTE | 2025-07-06 17:39 | P.CNS ---
Date of Consult: 07/06/25 Reason for Consult: possible admit Requesting Physician: Clarence Mckeon Chief Complaint: leg pain History of Present Illness: 70yo M, PMH: CKD, IDDM2, HTN, CHF presents to ED due to increased leg swelling and pain. History is limited due to him not answering questions fully / directly. He states whoever was supposed to pick him up yesterday never came so he got a ride to where he usually stays at. He states he did not chicken picker his me dications and did not take them. He did not take any of his chronic meds / insulin, etc. He did not keep his legs elevated. He has recurrent admissions due to noncompliance with medications. Patient was discharged yesterday after hospitalization from - 06/30 - 07/05. His edema had improved yesterday, had mild PAUL, and minimal to no erythema. He was covered with antibiotic last hospitalization for possible cellulitis. He was requesting discharge yesterday stating he had to go get something at the bank, and was doing better. Yesterday, prior to dc, he stated he was going to get his meds, take them, and stated he would have someone to help with his dressing changes. This does not seem to be the case. When asked about fluid intake / output since discharge yesterday, he is not very forthcoming. Interrupting questions with asking for various things - something to spit into, needing to go to the bathroom, asking for paperwork to be handed to him from his walker, to state multiple times his phone is out of battery and can't call anyone, etc. When explained the importance of the questions/information and to help manage his issues, he still was not forthcoming with information. On bloodwork in ER today, his renal function mildly worsened with Cr up to 2.0 now, mild hyponatremia (pseudohyponatremia secondary to hyperglycemia), no fever, hemodynamically stable. Allergies No Known Allergies Allergy (Verified 02/20/24 02:33) Home Medications: Albuterol Neb [Proventil 0.083% Neb Soln] 2.5 mg NEB [id number] PRN amp 01/16/25 Amlodipine [Norvasc*] 10 mg PO DAILY #0 tab 01/16/25 Hydrocodone 5/APAP 325 [[place] 5/325*] 1 tab PO Q6H PRN #30 tab 01/16/25 Insulin Glargine,Hum.rec.anlog [Semglee] 24 unit SQ DAILY ml 01/16/25 Insulin Regular, Human [Novolin R] See Protocol SQ ACHS ml 01/16/25 Ipratropium Neb [Atrovent*] 0.5 mg NEB [id number] PRN amp 01/16/25 Ketoconazole [Nizoral Cream*] 1 appl TOP BID tube 01/16/25 Metformin HCl [Glucophage*] 500 mg PO BIDWM tab 01/16/25 Acetaminophen [Tylenol*] 650 mg PO Q4HP PRN tab 05/17/25 Loperamide [Imodium*] 2 mg PO Q4H PRN cap 05/17/25 Furosemide 20 mg PO DAILY 30 Days #30 tab 07/05/25 levoFLOXacin [Levaquin] 500 mg PO DAILY 10 Days #10 tab 07/05/25 - Past Medical/Surgical History Diabetic: Yes -: Type 2 diabetes -: Homeless -states he lives alone -: History of CVA -: Hypertension -: Hyperlipidemia -: CKD -: Patient states he does not have any past surgical history - Family History Father Medical History: Cancer - Social History Smoking Status: Unknown if ever smoked Alcohol use: No CD- Drugs: No Caffeine use: Yes Review of Systems 10-point ROS is otherwise unremarkable Physical Examination Laboratory Data (last 24 hrs) 07/06/25 07/06/25 14:31 14:31 WBC 12.10 H Hgb 11.8 L Hct 35.6 L Plt Count 255 Sodium 131 L Potassium 4.9 BUN 50 H Creatinine 2.00 H Glucose 337 H Physician Review Additional Text: Patient presents to ER after discharge yesterday with increased edema and leg pain, with mild PAUL - secondary to not filling /taking his medications he was prescribed. Erythema in legs secondary to edema, no clear infection mild leukocytosis secondary to intravascular depletion, didn't take antibiotic difficult to fully assess volume status. He likely has some intravascular depletion, however his edema has increased compared to yesterday difficult since he is not being forthcoming with events, and frequently interrupts edema multifactorial - he is not elevating them, and didn't take lasix there does not appear to be any urgent / definitive need for admission to hospital at this time. He needs to take the medications prescribed. ED ordered IVF to see if helps. patient upset i didn't chicken picker papers that he was capable of getting and did not call around for a place to stay for him. He stated he didn't have a charged phone. When asked if he has asked ER staffing about charging his phone - he said he did not. He then asked if he isn't getting admitted, if he can get a taxi to where he needed to go Patient changes story of if he has help vs no help from one person to the next, different from yesterday and today discussed importance of compliance with his medications. and no need for inpatient management, he needs to take his meds as prescribed and f/u with PCP. Time Spent Managing Pts care (In Minutes): 60
--- NOTE | 2025-07-06 18:08 | EDPHYS ---
Physician Documentation [facility] Name: Edwin Linton Age: 70 yrs Sex: Male : 1955 Arrival Date: 07/06/2025 Time: 14:17 Bed 5 Private MD: ED Physician Roney Romero HPI: 07/06 14:22 This 70 yrs old Male presents to ER via EMS with complaints of MEDICATION cp NON-COMPLIANCE. 14:25 Patient is a 70-year-old male with past medical history significant for hypertension cp and diabetes who returns to the emergency department after being discharged yesterday from this hospital for cellulitis in his lower legs. Patient reports continued redness and swelling of lower legs. Patient admits he has not been taking prescription antibiotics. Patient denies fever, denies chest pain and/or shortness of breath, patient denies abdominal pain. Historical: - Allergies: 14:20 No Known Allergies; bp - Home Meds: 14:20 None [Active]; bp - PMHx: 14:20 Cerebrovascular accident; diabetes mellitus; Hypertensive disorder; bp - Immunization history:: Adult Immunizations unknown. - Infectious Disease History:: Denies. - Social history:: Smoking status: Patient reports the use of cigarette tobacco products, unknown amount. ROS: 14:25 Constitutional: Negative for fever, cp 14:25 Cardiovascular: Positive for edema, Negative for chest pain, cp 14:25 Respiratory: Negative for cough, shortness of breath, wheezing, 14:25 Abdomen/GI: Negative for abdominal pain, vomiting, diarrhea, constipation, 14:25 Neuro: Negative for altered mental status, dizziness, headache, numbness, syncope, cp weakness, 14:25 All other systems are negative, Exam: 14:30 Constitutional: The patient appears in no acute distress, alert, awake, cp non-diaphoretic, well developed, well nourished, obese, uncomfortable, 14:30 Head/Face: Normocephalic, atraumatic. cp 14:30 Eyes: Periorbital structures: appear normal, Conjunctiva: normal, no exudate, no cp injection, Sclera: no appreciated abnormality, Lids and lashes: appear normal, bilaterally, 14:30 ENT: External ear(s): are unremarkable, Nose: is normal, Mouth: Lips: dry, Oral mucosa: cp moist, Posterior pharynx: Airway: no evidence of obstruction, patent, 14:30 Neck: ROM/movement: is normal, is supple, without pain, no range of motions limitations, 14:30 Chest/axilla: Inspection: normal, Palpation: crepitus, is not appreciated, tenderness, is not appreciated, 14:30 Cardiovascular: Rate: normal, Rhythm: regular, Edema: pedal edema, that is mild, ankle edema, that is moderate, JVD: is not appreciated, 14:30 Respiratory: the patient does not display signs of respiratory distress, Respirations: normal, no use of accessory muscles, no retractions, labored breathing, is not present, Breath sounds: are clear throughout, no decreased breath sounds, no stridor, no wheezing, 14:30 Abdomen/GI: Inspection: obese Palpation: abdomen is soft and non-tender, in all quadrants, 14:30 Back: pain, is absent, 14:30 Skin: cellulitis, irregular, on the left lower leg and right lower leg, 14:30 Neuro: Orientation: to person, place \T\ time. Mentation: is normal, Motor: moves all fours, no focal deficits, Sensation: is normal, 14:44 ECG was reviewed by the Attending Physician. cp Vital Signs: 14:18 BP 109 / 71; Pulse 65; Resp 16; Temp 98.1; Pulse Ox 97% ; bp 15:00 BP 142 / 66; Pulse 72; Resp 18; Pulse Ox 98% on R/A; ph 16:00 BP 124 / 66; Pulse 69; Resp 18; Pulse Ox 97% on R/A; ph 17:00 BP 138 / 67; Pulse 74; Resp 20; Pulse Ox 100% on R/A; ph 18:00 BP 142 / 62; Pulse 76; Resp 18; Pulse Ox 100% on R/A; ph 19:01 BP 144 / 68; Pulse 69; Pulse Ox 100% on R/A; ar8 19:48 BP 129 / 62; Pulse 67; Resp 17; Temp 98.1; Pulse Ox 100% ; Pain 0/10; bm8 20:53 BP 134 / 67; Pulse 66; Resp 15; Pulse Ox 100% ; vc1 22:02 BP 117 / 60; Pulse 57; Resp 17; Pulse Ox 99% ; Pain 0/10; bm8 19:48 Pain Scale: Adult bm8 22:02 Pain Scale: Adult bm8 [place] Coma Score: 19:48 Eye Response: spontaneous(4). Motor Response: obeys commands(6). Verbal Response: bm8 oriented(5). Total: 15. 22:02 Eye Response: spontaneous(4). Motor Response: obeys commands(6). Verbal Response: bm8 oriented(5). Total: 15. MDM: 14:24 Medical Screening Exam initiated cp 15:59 Care significantly affected by the following chronic conditions: Diabetes, cp Hypertension. Care significantly affected by the following Social Determinants of Health: Poor access to transportation, Inadequate housing. ED course: consult with hospitalist, DR Melody Mcconnell, will evaluate patient in ED. 16:35 ED course: Patient seen and evaluated by Virgil Mcconnell here in the emergency department cp with readmission discussed but not recommended at this time. Dr. Mcconnell recommends fluid bolus for hydration and patient has prescription of antibiotics for lower leg infection and has not been on the prescribed meds a lot of to warrant readmission. Patient is known to be noncompliant with prescription medications and readmission is not warranted at this time.. 18:05 ED course: Nursing staff has spoken with Kenneth Alexis who is with the [facility] cp and she is willing to arrange transportation for patient to the [facility]. 18:07 Data reviewed: vital signs, nurses notes, lab test result(s), EKG, and as a result, I cp will discharge patient. 18:07 Consideration of Admission/Observation Escalation of care including cp admission/observation considered. I considered the following discharge prescriptions or medication management in the emergency department Medications were administered in the Emergency Department. See MAR. Independent interpretation of the following test(s) in the Emergency Department EKG: See my EKG interpretation above. Counseling: I had a detailed discussion with the patient and/or guardian regarding the historical points, exam findings, and any diagnostic results supporting the discharge/admit diagnosis, lab results, the need for outpatient follow up, a family practitioner, to return to the emergency department if symptoms worsen or persist or if there are any questions or concerns that arise at home. 07/06 14:24 Order name: CBC with Diff; Complete Time: 15:04 cp 07/06 15:04 Interpretation: Normal except: WBC 12.10; RBC 4.12; HGB 11.8; HCT 35.6; DANIEL% 82.3; LYM% cp 8.4; NEUT A 10.0. 07/06 14:24 Order name: BMP cp 07/06 15:06 Interpretation: Normal except: NA 131; GLUC 337; BUN 50; CRE 2.00; GFR 35. cp 07/06 14:24 Order name: CK cp 07/06 14:24 Order name: UA Rfx Jaiden Cult if indicated cp 07/06 14:48 Order name: Glucose, Ancillary Testing; Complete Time: 15:04 EDMS 07/06 22:03 Order name: Magnesium EDMS 07/06 14:24 Order name: IV Saline Lock; Complete Time: 14:26 cp 07/06 14:24 Order name: Labs collected and sent; Complete Time: 14:42 cp 07/06 14:24 Order name: Accucheck Blood Glucose; Complete Time: 14:42 cp 07/06 14:24 Order name: EKG - Nurse/Tech; Complete Time: 14:42 cp EC:44 Rate is 65 beats/min. Rhythm is regular. OR interval is normal. QRS interval is normal. cp QT interval is normal. T waves are Inverted in lead aVR. Interpreted by me. Reviewed by me. Administered Medications: 16:28 Discontinued: ns 0.9% 500 ml 500 ml IV at 100 ml/hr once cp 15:09 CANCELLED (Physician Discretion): insulin regular human10 units IVP once cp 15:58 Drug: NS 0.9% IV 500 ml 500 ml IV at 100 ml/hr once Volume: 500 ml; Route: IV; Rate: ar8 100 ml/hr; Site: right forearm; 19:49 Follow up: Response: No adverse reaction; IV Status: Order to discontinue infusion bm8 15:58 Drug: Doxycycline PO 100 mg PO once Route: PO; ar8 16:55 Follow up: Response: No adverse reaction ar8 16:47 Drug: NS 0.9% IV 1000 ml IV at 1 bolus Per protocol; to be given as a bolus over 60 ar8 minutes Route: IV; Rate: 1 bolus; Site: right forearm; 19:49 Follow up: Response: No adverse reaction; IV Status: Completed infusion bm8 16:48 Drug: Insulin Regular Human Sub-Q 10 units Sub-Q once {Co-Signature: bp (Victor Hugo Jewell RN).} Route: Sub-Q; Site: right upper arm; 19:49 Follow up: Response: No adverse reaction bm8 Disposition: 19:12 I was immediately available on-site in the Emergency Department for consultation in the ms3 care of the patient. 07/07 22:06 Chart complete. cp Disposition Summary: 07/06/25 18:07 Discharge Ordered Notes: Location: Home cp Problem: new cp Symptoms: have improved cp Condition: Stable cp Diagnosis - Dehydration cp - Patient's noncompliance with medical treatment and regimen cp Followup: cp - With: Private Physician - When: 2 - 3 days - Reason: Recheck today's complaints Discharge Instructions: - Discharge Summary Sheet cp - Dehydration, Elderly cp - Rehydration, Adult cp Forms: - Medication Reconciliation Form cp - Antibiotic Education cp - Prescription Opioid Use cp - Patient Portal Instructions cp - Leadership Thank You Letter cp Signatures: Dispatcher [employer] EDMS Clarence Mckeon PA PA cp Victor Hugo Jewell, RN RN bp Roney Romero DO DO ms3 Alcides Schneider RN RN arLázaro Gasca RN bm8 Victor Hugo Jewell RN bp Corrections: (The following items were deleted from the chart) 07/06 14:24 14:24 CBC+H.LAB.BRZ ordered. EDMS EDMS 14:24 14:24 BASIC METABOLIC PANEL+C.LAB.BRZ ordered. EDMS EDMS 14:24 14:24 CREATINE PHOSPHOKINASE+C.LAB.BRZ ordered. EDMS EDMS 14:24 14:24 UA Rfx Jaiden Cult if indicated+U.LAB.BRZ ordered. EDMS EDMS 15:09 15:09 Insulin Regular Human IVP 10 units IVP once ordered. cp cp 22:03 14:29 MAGNESIUM+C.LAB.BRZ ordered. EDMS EDMS
--- NOTE | 2025-07-06 18:08 | ER ---
Nurse's Notes [facility] Name: Edwin Linton Age: 70 yrs Sex: Male : 1955 Arrival Date: 07/06/2025 Time: 14:17 Bed 5 Private MD: Diagnosis: Dehydration;Patient's noncompliance with medical treatment and regimen Presentation: 07/06 14:18 Chief complaint: EMS states: HE HAS AN INFECTION IN HIS LEGS AND DIABETES AND REFUSES bp TO TAKE MEDICATION OR TAKE CARE OF HIMSELF. Coronavirus screen: At this time, the client does not indicate any symptoms associated with coronavirus-19. Ebola Screen: No symptoms or risks identified at this time. Initial Sepsis Screen: Does the patient meet any 2 criteria? No. Patient's initial sepsis screen is negative. Does the patient have a suspected source of infection? No. Patient's initial sepsis screen is negative. Risk Assessment: Do you want to hurt yourself or someone else? Patient reports no desire to harm self or others. Onset of symptoms is unknown. Care prior to arrival: IV initiated. 20 GA, in the right forearm, Glucose check: 458. 14:18 Method Of Arrival: EMS: [facility] bp 14:18 Acuity: ROLAND 3 bp Triage Assessment: 14:20 General: Appears in no apparent distress. Behavior is calm, cooperative, appropriate bp for age. Pain: Complains of pain in right leg and left leg. EENT: No deficits noted. Neuro: No deficits noted. Cardiovascular: No deficits noted. Respiratory: No deficits noted. GI: No signs and/or symptoms were reported involving the gastrointestinal system. : No signs and/or symptoms were reported regarding the genitourinary system. Derm: BLE ERYTHEMA. Musculoskeletal: Swelling present in right leg and left leg. Historical: - Allergies: 14:20 No Known Allergies; bp - Home Meds: 14:20 None [Active]; bp - PMHx: 14:20 Cerebrovascular accident; diabetes mellitus; Hypertensive disorder; bp - Immunization history:: Adult Immunizations unknown. - Infectious Disease History:: Denies. - Social history:: Smoking status: Patient reports the use of cigarette tobacco products, unknown amount. Screenin:21 [facility] ED Fall Risk Assessment (Adult) History of falling in the last 3 months, bp including since admission No falls in past 3 months (0 pts) Confusion or Disorientation No (0 pts) Intoxicated or Sedated No (0 pts) Impaired Gait Yes (1 pt) Mobility Assist Device Used Yes (1 pt) Altered Elimination No (0 pt) Score/Fall Risk Level 0 - 2 = Low Risk Oriented to surroundings. Abuse screen: Denies threats or abuse. Denies injuries from another. Nutritional screening: No deficits noted. Tuberculosis screening: No symptoms or risk factors identified. Assessment: 14:21 General: SEE TRIAGE NOTE. bp 18:00 Reassessment: CAlled and spoke with Kenneth Lori [phone] who states that patient pasha declined arranged transportation to [facility] yesterday because he told her he, "had something very important to take care of at [facility] in [place]." Kenneth states that patient is welcome to come back today, but must be willing to use transportation arranged and come to facility. 18:11 Reassessment: Attempted to call Kenneth twice to let her know patient agrees to go to [facility] with arranged transportation, no answer. 19:48 Reassessment: Patient appears in no apparent distress at this time. Patient and/or bm8 family updated on plan of care and expected duration. Pain level reassessed. Patient is alert, oriented x 3, equal unlabored respirations, skin warm/dry/pink. pt is resting with eyes closed breathing is even unlabored with symmetrical rise and fall of chest. 20:16 Reassessment: Patient appears in no apparent distress at this time. No changes from bm8 previously documented assessment. Patient and/or family updated on plan of care and expected duration. Pain level reassessed. Patient is alert, oriented x 3, equal unlabored respirations, skin warm/dry/pink. 20:53 Reassessment: attmepted to call Kenneth Sandoval again and no response. bm8 21:58 Reassessment: attempted to call Kenneth again, no answer and voice mail is full. br2 22:02 Reassessment: Patient appears in no apparent distress at this time. Patient and/or bm8 family updated on plan of care and expected duration. Pain level reassessed. Patient is alert, oriented x 3, equal unlabored respirations, skin warm/dry/pink. Patient denies pain at this time. Patient states feeling better. Patient states symptoms have improved. Vital Signs: 14:18 BP 109 / 71; Pulse 65; Resp 16; Temp 98.1; Pulse Ox 97% ; bp 15:00 BP 142 / 66; Pulse 72; Resp 18; Pulse Ox 98% on R/A; ph 16:00 BP 124 / 66; Pulse 69; Resp 18; Pulse Ox 97% on R/A; ph 17:00 BP 138 / 67; Pulse 74; Resp 20; Pulse Ox 100% on R/A; ph 18:00 BP 142 / 62; Pulse 76; Resp 18; Pulse Ox 100% on R/A; ph 19:01 BP 144 / 68; Pulse 69; Pulse Ox 100% on R/A; ar8 19:48 BP 129 / 62; Pulse 67; Resp 17; Temp 98.1; Pulse Ox 100% ; Pain 0/10; bm8 20:53 BP 134 / 67; Pulse 66; Resp 15; Pulse Ox 100% ; vc1 22:02 BP 117 / 60; Pulse 57; Resp 17; Pulse Ox 99% ; Pain 0/10; bm8 19:48 Pain Scale: Adult bm8 22:02 Pain Scale: Adult bm8 Nilsa Coma Score: 19:48 Eye Response: spontaneous(4). Motor Response: obeys commands(6). Verbal Response: bm8 oriented(5). Total: 15. 22:02 Eye Response: spontaneous(4). Motor Response: obeys commands(6). Verbal Response: bm8 oriented(5). Total: 15. ED Course: 14:17 Patient arrived in ED. bp 14:20 Triage completed. bp 14:20 Arm band placed on. bp 14:21 Clarence Mckeon PA is PHCP. cp 14:21 Roney Romero DO is Attending Physician. cp 14:21 Patient has correct armband on for positive identification. bp 14:21 Maintain EMS IV. Dressing intact. Good blood return noted. Site clean \\T\\ dry. Gauge \\T\\ bp site: 20 RFA. Flushed with 10 mL NS. 14:23 Victor Hugo Jewell, RN is Primary Nurse. bp 14:24 Primary Nurse role handed off by Victor Hugo Jewell, RN ar8 14:24 Alcides Schneider, RN is Primary Nurse. ar8 14:43 CK Sent. ar8 14:43 BMP Sent. ar8 14:43 EKG done, by ED staff, reviewed by Clarence WALTON. ar8 16:25 Nakul cMconnell MD precision crop manager. rn3 18:59 Wound care: to wound to top of left foot was cleaned with with ns, dressed with maya Bingham ABD pads. 19:48 Provided Education on: post er care. Client placed on continuous cardiac and pulse bm8 oximetry monitoring. NIBP monitoring applied. doctor of nursing practice on. Pulse ox on. NIBP on. Door closed. Noise minimized. Warm blanket given. Pillow given. Verbal reassurance given. Head of bed elevated. 19:48 No provider procedures requiring assistance completed. Patient maintains SpO2 bm8 saturation greater than 95% on room air. 22:02 IV discontinued, intact, bleeding controlled, No redness/swelling at site. Pressure bm8 dressing applied. Administered Medications: 16:28 Discontinued: ns 0.9% 500 ml 500 ml IV at 100 ml/hr once cp 15:09 CANCELLED (Physician Discretion): insulin regular human10 units IVP once cp 15:58 Drug: NS 0.9% IV 500 ml 500 ml IV at 100 ml/hr once Volume: 500 ml; Route: IV; Rate: ar8 100 ml/hr; Site: right forearm; 19:49 Follow up: Response: No adverse reaction; IV Status: Order to discontinue infusion bm8 15:58 Drug: Doxycycline PO 100 mg PO once Route: PO; ar8 16:55 Follow up: Response: No adverse reaction ar8 16:47 Drug: NS 0.9% IV 1000 ml IV at 1 bolus Per protocol; to be given as a bolus over 60 ar8 minutes Route: IV; Rate: 1 bolus; Site: right forearm; 19:49 Follow up: Response: No adverse reaction; IV Status: Completed infusion bm8 16:48 Drug: Insulin Regular Human Sub-Q 10 units Sub-Q once {Co-Signature: bp (Victor Hugo Jewell RN).} Route: Sub-Q; Site: right upper arm; 19:49 Follow up: Response: No adverse reaction bm8 Medication: 14:21 VIS not applicable for this client. bp Outcome: 18:07 Discharge ordered by . cp 22:02 Discharged to home ambulatory, bm8 22:02 Condition: stable 22:02 Discharge instructions given to patient, Instructed on discharge instructions, follow up and referral plans. no drinking with medication, no driving heavy equipment, medication usage, safety practices, Demonstrated understanding of instructions, follow-up care, medications, 22:29 Patient left the ED. vc1 Signatures: Ibeth Ball, RN RN ss Jana Fierro RN RN ph Clarence Mckeon PA PA cp Peltier, Brian, RN RN bp Nakul Mcconnell MD MD rn3 Collette Valentine RN RN vc1 Lázaro Lora RN RN 8 Ninoska Das RN RN br2 Alcides Schneider RN RN ar8 Victor Hugo Jewell RN bp Corrections: (The following items were deleted from the chart) 22:03 14:43 MAGNESIUM+C.LAB.BRAYDON drawn and sent. ar8 EDMS
[2025-07-06 22:11] LABS: Magnesium 2.0 mg/dL (1.6-2.4)
[2025-07-07 01:15] VITALS: TEMP 98.1
[2025-07-07 01:32] VITALS: BP 117/60; O2SAT 99
== END 2025-07-06 22:29 | disposition home or self-care (01) ==
LOC: ER 14:18
DX: E86.0 Dehydration (principal); Z91.198 Patient's noncompliance with other medical treatment and regimen for other reason; Z59.10 Inadequate housing, unspecified; E11.9 Type 2 diabetes mellitus without complications; Z72.0 Tobacco use
CPT/HCPCS: 96361; 93005; 85025; 81001; 80048; 36415; 83735; 82550; 82947; 96360; 96372; 99285; J1815; J7040 ×2